=== PATIENT | male | born 1945 | race Caucasian/White ===

== ENCOUNTER 2019-03-15 13:36 | Outpatient (REF) | payer MEDICARE, BC, SELFPAY ==
[2019-03-15 22:20] LABS: Anion Gap 10.8 mmol/L (3-11); BUN 24 mg/dL (7-18); CO2 25.2 mmol/L (21.0-32.0); CREATININE 0.92 mg/dL (0.70-1.30); Calcium 9.6 mg/dL (8.5-10.1); Chloride 105 mmol/L (98-107); Glucose 201 mg/dL (70-100); Potassium 4.3 mmol/L (3.5-5.1); Sodium 141 mmol/L (136-145)
== END 2019-03-15 13:56 ==
LOC: NCHCN 13:36
PROVIDERS: PCP Internal Medicine; Visit Provider Internal Medicine
DX: I10 Essential (primary) hypertension (principal)
CPT/HCPCS: 80048

== ENCOUNTER 2020-10-27 00:48 | Outpatient (CLI) | payer MEDICARE, BC, SELFPAY ==
--- NOTE | 2020-10-27 | DI.RAD_ITS ---
EXAM: XR HIP LT COMPLETE AP PELVIS INDICATION: LT HIP PAIN, M25.552. COMPARISON: CR LEFT HIP COMPLETE from 03/24/2012 CT ABD PELVIS WITH CONTRAST from 08/29/2015 CT ABD PELVIS WITH CONTRAST from 08/29/2015 TECHNIQUE: 2D digital imaging was performed. FINDINGS: There are bilateral hip prostheses. There is some lateral subluxation of the femoral component of t he prosthesis relative to the acetabular component. There are now multiple metallic fragments seen i nferior to the acetabulum and proximal femoral portion of the prosthesis. There is stable lucency seen in the femoral neck region and some surrounding heterotopic calcification. No acute fracture is seen. IMPRESSION: Multiple metallic fragments surrounding the hip prosthesis. DATA REPOSITORY: RADIATION DOSE DELIVERED:
== END 2020-10-27 00:49 ==
LOC: DI 00:49
PROVIDERS: PCP Internal Medicine; Visit Provider Internal Medicine
DX: M25.552 Pain in left hip (principal); Z96.643 Presence of artificial hip joint, bilateral
CPT/HCPCS: 73502

== ENCOUNTER 2020-10-30 16:26 | Outpatient (REF) | payer MEDICARE, BC, SELFPAY ==
[2020-10-30 13:29] LABS: HGB 18.6 g/dL (13.5-17.5); MCH 29.5 pg (27.0-33.0); MCHC 31.7 % (32.0-36.0); Platelet Count 268 10^3/uL (130-400); RBC 6.31 10^6/uL (4.36-5.78); RDW 17.2 % (11.8-14.1); RDW-SD 54.7 fL; WBC 8.65 10^3/uL (4.4-10.8)
[2020-10-30 13:34] LABS: Anion Gap 11.2 mmol/L (3-11); BUN 27 mg/dL (7-18); CO2 25.8 mmol/L (21.0-32.0); CREATININE 1.1 mg/dL (0.70-1.30); Calcium 9.8 mg/dL (8.5-10.1); Chloride 106 mmol/L (98-107); Glucose 219 mg/dL (74-106); Potassium 4.3 mmol/L (3.5-5.1); Sodium 143 mmol/L (136-145); Uric Acid 4.9 mg/dL (3.5-7.2)
[2020-10-30 13:39] LABS: Hemoglobin A1C 7.4 % (<5.7)
[2020-10-30 13:50] LABS: HCT 58.7 % (40.0-50.0)
== END 2020-10-30 16:27 | disposition home or self-care (01) ==
LOC: NCHCN 16:26
PROVIDERS: PCP Internal Medicine; Visit Provider Internal Medicine
DX: E11.9 Type 2 diabetes mellitus without complications (principal); I48.91 Unspecified atrial fibrillation; I25.10 Atherosclerotic heart disease of native coronary artery without angina pectoris; E66.01 Morbid (severe) obesity due to excess calories
CPT/HCPCS: 80048; 85027; 83036; 84550

== ENCOUNTER → 2020-12-14 10:07 | Outpatient (BNVA) | payer MEDICARE, BC, SELFPAY | PROVIDERS: PCP Internal Medicine; Referring Provider Internal Medicine; Visit Provider Student in an Organized Health Care Education/Training Program | DX: Z47.1 Aftercare following joint replacement surgery (principal); Z96.642 Presence of left artificial hip joint | CPT/HCPCS: 99203 ==

== ENCOUNTER → 2021-02-01 10:44 | Outpatient (BNVA) | payer MEDICARE, BC, SELFPAY | PROVIDERS: PCP Internal Medicine; Visit Provider Student in an Organized Health Care Education/Training Program | DX: Z47.1 Aftercare following joint replacement surgery (principal); Z96.642 Presence of left artificial hip joint | CPT/HCPCS: 99213 ==

== ENCOUNTER 2021-05-08 09:24 | Outpatient (CLI) | payer MEDICARE, BC, SELFPAY ==
--- NOTE | 2021-05-08 08:30 | DI.RAD_ITS ---
Exam(s) XR HIP LT COMPLETE AP PELVIS EXAM: XR HIP LT COMPLETE AP PELVIS CLINICAL HISTORY: hip pain. TECHNIQUE: 2D digital imaging was performed. COMPARISON: CR XR HIP LT COMPLETE AP PELVIS from 10/27/2020 DX XR PELVIS (GENERIC) from 10/31/2020 CR XR PELVIS (GENERIC) from 11/01/2020 CR XR HIP 2-3 VIEWS LT W/ PELVIS from 11/14/2020 FINDINGS: BONES: No acute fracture is present. No bony destructive lesion is seen. JOINTS: No dislocation present. The patient has bilateral total hip replacements. Dystrophic calcifi cations have developed around the left hip prosthesis. No acute fracture or dislocation is seen. Th e periprosthetic bone has a similar appearance compared to the x-ray from 11/14/2020. The appearance o f the right total hip replacement is similar compared to the examination from 11/01/2020. SOFT TISSUE: Atherosclerosis. IMPRESSION: Stable bilateral total hip replacements. DATA REPOSITORY: RADIATION DOSE DELIVERED:
== END 2021-05-08 09:25 | disposition home or self-care (01) ==
LOC: DIORS 09:24
PROVIDERS: PCP Internal Medicine; Referring Provider Internal Medicine; Visit Provider Physician Assistant
DX: Z96.642 Presence of left artificial hip joint (principal); M25.552 Pain in left hip; E11.9 Type 2 diabetes mellitus without complications
CPT/HCPCS: 99214; 73502

== ENCOUNTER 2021-06-01 17:03 | Outpatient (REF) | payer MEDICARE, BC, SELFPAY | END 2021-06-01 17:04 | disposition home or self-care (01) | LOC: NCHCN 17:03 | PROVIDERS: PCP Internal Medicine; Visit Provider Family Medicine | DX: I87.312 Chronic venous hypertension (idiopathic) with ulcer of left lower extremity (principal) | CPT/HCPCS: 87077; 87070; 87186; 87205 ==

== ENCOUNTER → 2021-07-02 11:07 | Outpatient (BNVA) | payer MEDICARE, BC, SELFPAY | PROVIDERS: PCP Internal Medicine; Referring Provider Internal Medicine | DX: M70.62 Trochanteric bursitis, left hip (principal); Z96.642 Presence of left artificial hip joint | CPT/HCPCS: 99212 ==

== ENCOUNTER → 2021-07-09 10:50 | Outpatient (BNVA) | payer MEDICARE, BC, SELFPAY | PROVIDERS: PCP Internal Medicine; Referring Provider Physician Assistant; Visit Provider Surgery | DX: I87.2 Venous insufficiency (chronic) (peripheral) (principal); L97.321 Non-pressure chronic ulcer of left ankle limited to breakdown of skin; Z68.43 Body mass index [BMI] 50.0-59.9, adult; E11.69 Type 2 diabetes mellitus with other specified complication; Z79.01 Long term (current) use of anticoagulants; I10 Essential (primary) hypertension; R60.0 Localized edema | CPT/HCPCS: 29580; 99214 ==

== ENCOUNTER → 2021-07-16 14:07 | Outpatient (BNVA) | payer MEDICARE, BC, SELFPAY | PROVIDERS: PCP Internal Medicine; Referring Provider Internal Medicine; Visit Provider Surgery | DX: I87.2 Venous insufficiency (chronic) (peripheral) (principal); L97.301 Non-pressure chronic ulcer of unspecified ankle limited to breakdown of skin; Z91.19 Patient's noncompliance with other medical treatment and regimen | CPT/HCPCS: 99213 ==

== ENCOUNTER → 2021-07-23 08:08 | Outpatient (BNVA) | payer MEDICARE, BC, SELFPAY | PROVIDERS: PCP Internal Medicine; Referring Provider Internal Medicine; Visit Provider Surgery | DX: L97.301 Non-pressure chronic ulcer of unspecified ankle limited to breakdown of skin (principal) | CPT/HCPCS: 29580 ==

== ENCOUNTER → 2021-07-30 07:53 | Outpatient (BNVA) | payer MEDICARE, BC, SELFPAY | PROVIDERS: PCP Internal Medicine; Referring Provider Internal Medicine; Visit Provider Surgery | DX: L97.301 Non-pressure chronic ulcer of unspecified ankle limited to breakdown of skin (principal); I87.2 Venous insufficiency (chronic) (peripheral); Z68.43 Body mass index [BMI] 50.0-59.9, adult; E11.69 Type 2 diabetes mellitus with other specified complication; I10 Essential (primary) hypertension; G47.33 Obstructive sleep apnea (adult) (pediatric); Z91.19 Patient's noncompliance with other medical treatment and regimen | CPT/HCPCS: 99211 ==

== ENCOUNTER → 2021-08-13 08:05 | Outpatient (BNVA) | payer MEDICARE, BC, SELFPAY | PROVIDERS: PCP Internal Medicine; Referring Provider Internal Medicine; Visit Provider Surgery | DX: I87.2 Venous insufficiency (chronic) (peripheral) (principal); L97.301 Non-pressure chronic ulcer of unspecified ankle limited to breakdown of skin; Z68.43 Body mass index [BMI] 50.0-59.9, adult; Z91.19 Patient's noncompliance with other medical treatment and regimen ==

== ENCOUNTER 2021-10-29 11:43 | Outpatient (CLI) | payer MEDICARE, SELFPAY ==
--- NOTE | 2021-10-29 11:15 | DI.RAD_ITS ---
Exam(s) XR HIP LT AP LAT ONLY EXAM: XR HIP LT AP LAT ONLY CLINICAL HISTORY: L revision NAIDA. TECHNIQUE: 2D digital imaging was performed. COMPARISON: CR XR HIP LT COMPLETE AP PELVIS from 05/08/2021 FINDINGS: Again noted is a left hip prosthesis. There is dystrophic calcification again noted. The appearance of the Maddie prosthetic bone at the trochanteric level appears unchanged. No new fractures evident. IMPRESSION: As above. No significant change compared to 05/08/2021 DATA REPOSITORY: RADIATION DOSE DELIVERED:
== END 2021-10-29 11:44 | disposition home or self-care (01) ==
LOC: DIORS 11:44
PROVIDERS: PCP Internal Medicine; Referring Provider Internal Medicine; Visit Provider Student in an Organized Health Care Education/Training Program
DX: Z96.642 Presence of left artificial hip joint (principal); M70.62 Trochanteric bursitis, left hip
CPT/HCPCS: 99213; 73502

== ENCOUNTER 2021-10-29 23:37 | Observation (INO) | payer MEDICARE, SELFPAY ==
--- NOTE | 2021-10-29 23:30 | DI.RAD_ITS ---
Exam(s) XR HIP PELVIS ADULT BL EXAM: XR HIP PELVIS ADULT BL CLINICAL HISTORY: bilateral leg weakness, fall TECHNIQUE: COMPARISON: CR XR HIP LT COMPLETE AP PELVIS from 05/08/2021 FINDINGS: Five views were obtained. There are bilateral hip prostheses in position. The components appear wel l seated. There is moderate heterotopic bone formation, mostly on the left. There is no evidence of acute fracture or dislocation. IMPRESSION: RADIATION DOSE DELIVERED: Total DLP
--- NOTE | 2021-10-29 23:30 | DI.CT_ITS ---
Exam(s) CT LUMBAR SPINE WO EXAM: CT LUMBAR SPINE WO CLINICAL HISTORY: sudden weakness in bilateral lower extremities TECHNIQUE: COMPARISON: No exams were available for comparison FINDINGS: CT examination lumbosacral spine was performed. The SI joints appear intact bilaterally with minimal degenerative change. No sacral fracture. Bilateral hip prostheses noted as seen on plain films tod ay. There is a moderate biconvex thoraco lumbar scoliosis. There are severe hypertrophic degenerative ch anges of the facet joints, particularly at L4-5 and L5-S1, and there appears to be mild central canal spinal stenosis at L4-5. There is no evidence of acute fracture or dislocation. No gross acute disc herniation by CT criteria . IMPRESSION: No evidence of acute fracture. RADIATION DOSE DELIVERED: 1,706.54mGy.cm Total DLP !Error CTDIvol RADIATION OPTIMIZATION: All CT scans at this facility use at least one of these dose optimization te chniques: automated exposure control; mA and/or kV adjustment per patient size (includes targeted exa ms where dose is matched to clinical indication); or iterative reconstruction.
[2021-10-29 23:35] VITALS: BP 119/54; PULSE 95; RESP 22; TEMP 36.4; O2SAT 94
[2021-10-30] VITALS (21 sets, daily range): BP systolic 108–144; BP diastolic 63–85; PULSE 67–91; RESP 11–22; TEMP 36–36.8; O2SAT 94–98
--- NOTE | 2021-10-30 | DI.MRI_ITS ---
Exam(s) MR LUMBAR SPINE WO EXAM: MR LUMBAR SPINE WO CLINICAL HISTORY: severe pain and weakness, r/o abscess. TECHNIQUE: Multiplanar multisequence MRI was performed. COMPARISON: CT ABD PELVIS WITH CONTRAST from 08/29/[address] LUMBAR SPINE WO from 10/30/2021 FINDINGS: MR examination lumbosacral spine was performed according to the usual protocol. Post contrast scanni ng was planned, but the patient was unable to tolerate the examination and the examination was termin ated prior to administration of contrast material. There is a compression fracture of the T11 vertebral body with mild loss of height both anteriorly an d posteriorly. The fracture plane may involve the posterior cortex consistent with a possible burst fracture. There is no gross retropulsion of bone into the spinal canal at this level. Posterior jose ments appear intact. There are very prominent hypertrophic degenerative changes involving the facet joints at L4-5 and L5- S1. There is moderate central canal spinal stenosis at L4-5 resulting from the facet prominence and prominence of the disc osteophyte complex at this level. No other bony central canal spinal stenosis seen. The neural foramina appear fairly well maintained throughout. The conus medullaris is unremarkable in appearance. There is a large right-sided disc herniation at the L1-2 level which markedly deforms the thecal sac at this level. No other disc herniation identified in the region surveyed. IMPRESSION: T11 vertebral compression fracture, this may involve the posterior vertebral cortex raising the possi bility of a burst fracture. Large right-sided L1-2 disc herniation of uncertain age. Please correlate with neurologic examinatio n. Moderate central canal spinal stenosis at L4-5. DATA REPOSITORY:
--- NOTE | 2021-10-30 00:55 | W.ED.GENAD ---
Discharge Plan Disposition Patient Disposition: [facility] INPATIENT Condition: Improving Discharge Details Clinical Impression: Bilateral leg weakness, Lumbago Primary Care Provider: Nick Nettles ED Provider: Adrien Cazares Home Meds and New Rx's Prescriptions: No Action furosemide 40 MG tablet 20 mg PO BID 0RF atorvastatin [Lipitor] 80 MG tablet 80 mg PO DAILY 0RF metoprolol succinate 100 MG tablet extended release 24 hr 100 mg PO DAILY 0RF nitroglycerin 0.4 MG tablet, sublingual 0.4 mg Sublingual PRN PRN (Reason: Chest Pain) 0RF lisinopril 40 MG tablet 20 mg PO DAILY 0RF warfarin [Coumadin] 5 MG tablet 5 mg PO QPM 0RF potassium citrate 10 MEQ tablet extended release 20 meq PO BID 0RF allopurinol 300 MG tablet 300 mg PO DAILY 0RF ciprofloxacin HCl 500 mg tablet 500 mg PO BID 0RF Label Comments: TAKE 1 TABLET BY MOUTH EVERY 12 HOURS clindamycin HCl 300 mg capsule 300 mg PO TID 0RF Label Comments: TAKE 1 CAPSULE BY MOUTH EVERY 8 HOURS FOR 7 DAYS Medical Decision Making 76-year-old male with a past medical history of chronic weakness of the lower extremities, high cholesterol, obesity, chronic venous stasis of the lower extremities, atrial fibrillation on anticoagulant use, coronary artery disease, hypertension, 5 previous hip replacement/surgeries, presents today for evaluation of lower extremity weakness. Patient has a history of chronic lower extremity weakness requiring a walker at all times at home. He has had multiple surgeries on his hips before. Today he was at his kitchen sink when his legs suddenly felt weak and shaky, and they gradually gave out on him. He slowly lowered himself to the ground. He denies any chest pain, palpitations, shortness of breath, headache, syncope or near syncope. He states that his symptoms were fully isolated to his legs alone. EMS was called, and upon their arrival the patient was not able to get up on his own. He did require an assist, and was subsequently not able to walk with the assist secondary to his lower extremity weakness. He states that although his legs are normally quite weak, their current state is a roughly fifth percent diminishment of strength comparatively to normal. He denies any new back pain, groin pain, or leg pain. He denies any trauma. He lives at home alone. He denies any numbness or tingling in his groin. He did lose control of his bladder during the event but did not defecate himself. No other complaints at this time. No other modifying factors. Physical exam demonstrates weakness in the lower extremities primarily at the hips bilaterally. Seems to be good strength for the knees and feet and great toes bilaterally. No evidence of focal neurologic deficits on exam otherwise though. Symptoms appear inconsistent with stroke clinically, and more consistent with chronic deconditioning, but I am uncertain why there is an acute component now. Symptoms do not appear consistent with cauda equina syndrome currently, although he did urinate on himself which is slightly atypical however neurovascular exam seems to otherwise be intact at this time. We will get a CT scan of the lumbar spine to evaluate for any significant pathology. We will get x-rays to evaluate for any change in his orthotic devices. Will monitor closely and reassess. 1:43am CT scan of the lumbar spine demonstrate multilevel degenerative changes, with severe central canal and foraminal stenosis at L4 and L5. Clinically the patient still does not show signs of cauda equina syndrome. We were able to get the patient up, he did require 3 person assist, and was somewhat unsteady on his legs. He still shows no signs of diminished rectal tone, or saddle anesthesia. He states that he feels like his strength is currently improving. That being said patient is 164 kg, he does live at home with his . He sleeps on the second story of the house, and the patient does not feel comfortable going home tonight as he has no additional assistance aside for his more petite spouse. At this time I suspect that his weakness was likely secondary to his stenosis and mild transient radiculopathy. Currently again there is no evidence of cauda equina syndrome requiring emergent surgical management. Due to his inability to meet his ADLs at home in his current state, I do feel that admission, continued reassessment for acute changes, potential MRI in the morning, and setting up a home health and home assistance is indicated at this time. I discussed the case with the hospitalist Dr. Land, he agrees with the assessment and plan. I will place admission orders on his behalf. Additionally we will give 125 of Solu-Medrol here in the ED for radiculopathy. I have extensively reviewed the treatment plan with the patient. I have addressed all patient concerns at this time. I have also discussed the plan with the admitting physician and they agree with the current assessment and plan and have agreed to assume responsibility for the patient. All parties demonstrate verbal understanding and agreement with our assessment and plan at this time. The documentation in this chart was dictated using Scali dictation software. Please excuse any dictation errors. FINDINGS: Vertebrae: No acute fracture. Anterolisthesis of L4 on L5 and loss of lumbar lordosis is presumed degenerative Discs/Spinal canal/Neural foramina: Multilevel severe foraminal stenosis most pronounced at L4- L5. Severe central canal stenosis at L4-L5 Soft tissues: Bilateral nephrolithiasis. Mild fullness to the right renal collecting system and pelvis Bilateral hip arthroplasties Prior cholecystectomy. Nodular adrenal glands with left-sided calcification presumably related to hyperplasia IMPRESSION: Multilevel degenerative changes with severe central canal and foraminal stenosis noted at L4-L5 Bilateral nephrolithiasis. Mild fullness to the right renal collecting system and pelvis. Recently passed stone cannot be completely excluded Thank you for allowing us to participate in the care of your patient. Dictated and Authenticated by: Ashvin Collins MD 10/30/2021 1:24 AM Eastern Time ([place] & [place]) FINDINGS: Bones/joints: Right hip arthroplasty grossly intact. Prominent lucency surrounding the proximal femoral component in the greater trochanter new inter trochanteric region. Left hip arthroplasty is grossly intact with mild grossly stable lucency in the proximal femur No acute fracture. Soft tissues: Unremarkable. IMPRESSION: No acute fracture. Hip arthroplasties are grossly intact. Lucencies surrounding the proximal femoral components are grossly stable in appearance Thank you for allowing us to participate in the care of your patient. Dictated and Authenticated by: Ashvin Collins MD 10/30/2021 1:33 AM Eastern Time ([place] & [place]) HPI General Date/Time Provider Initiated Documentation: 10/29/21 23:44. HPI Narrative: 76-year-old male with a past medical history of chronic weakness of the lower extremities, high cholesterol, obesity, chronic venous stasis of the lower extremities, atrial fibrillation on anticoagulant use, coronary artery disease, hypertension, 5 previous hip replacement/surgeries, presents today for evaluation of lower extremity weakness. Patient has a history of chronic lower extremity weakness requiring a walker at all times at home. He has had multiple surgeries on his hips before. Today he was at his kitchen sink when his legs suddenly felt weak and shaky, and they gradually gave out on him. He slowly lowered himself to the ground. He denies any chest pain, palpitations, shortness of breath, headache, syncope or near syncope. He states that his symptoms were fully isolated to his legs alone. EMS was called, and upon their arrival the patient was not able to get up on his own. He did require an assist, and was subsequently not able to walk with the assist secondary to his lower extremity weakness. He states that although his legs are normally quite weak, their current state is a roughly fifth percent diminishment of strength comparatively to normal. He denies any new back pain, groin pain, or leg pain. He denies any trauma. He lives at home alone. He denies any numbness or tingling in his groin. He did lose control of his bladder during the event but did not defecate himself. No other complaints at this time. No other modifying factors. Related Data Home Medications Medication Instructions Recorded Confirmed atorvastatin 80 mg tablet (Lipitor) 80 mg PO DAILY 09/07/14 10/30/21 furosemide 40 mg tablet 20 mg PO BID 09/07/14 10/30/21 lisinopril 40 mg tablet 20 mg PO DAILY 09/07/14 10/30/21 metoprolol succinate 100 mg 100 mg PO DAILY 09/07/14 10/30/21 tablet,extended release 24 hr nitroglycerin 0.4 mg sublingual 0.4 mg SUBLINGUAL PRN PRN 09/07/14 10/30/21 tablet warfarin 5 mg tablet (Coumadin) 5 mg PO QPM 08/29/15 08/13/21 allopurinol 300 mg tablet 300 mg PO DAILY 12/30/16 10/30/21 potassium citrate 10 mEq (1,080 20 meq PO BID 12/30/16 10/30/21 mg) tablet,extended release ciprofloxacin HCl 500 mg tablet 500 mg PO BID 10/30/21 10/30/21 clindamycin HCl 300 mg capsule 300 mg PO TID 10/30/21 10/30/21 Allergies Allergy/AdvReac Type Severity Reaction Status Date / Time No Known Drug Allergies Allergy Unverified 10/30/21 00:09 metformin AdvReac DIARRHEA Verified 10/30/21 00:09 General Stated Complaint: GenMedical NADINE: 2 Review of Systems All systems reviewed & are unremarkable except as noted in HPI and below PFSH All Active Problems Bilateral leg weakness (Acute) Lumbago (Acute) Non compliance with medical treatment (Acute) Venous stasis ulcer of ankle limited to breakdown of skin without varicose veins (Acute) Trochanteric bursitis, left hip (Acute) H/O surgical procedure (Chronic) a. Bilateral hip replacement b. Nephrolithotomy c. Right ureteral stent placement d. Coronary artery stent placement 2006 e. Adult circumcision f. Colonoscopy 11/2013 History of revision of total replacement of left hip joint (Acute 11/01/20) Acetabular revision with head/liner exchange for fractured femoral head prosthesis. Pure hypercholesterolemia, unspecified (Acute) Cerumen impaction (Acute) Body mass index (BMI) 50.0-59.9, adult (Acute) Type 2 diabetes mellitus without complications (Acute) Neoplasm of unspecified behavior of bone, soft tissue, and skin (Acute) Nasal dryness (Acute) Acute cholecystitis (Acute 09/07/14) Morbid obesity (Chronic) CAD (coronary artery disease) (Chronic) a. coronary artery stent placement 2006 Atrial fibrillation (Chronic) A. On Coumadin Anticoagulant long-term use (Chronic) Personal history of pulmonary embolism (Chronic) Hypertension (Chronic) TOM (obstructive sleep apnea) (Chronic) Personal history of kidney stones (Chronic) a. uric acid stones Venous stasis ulcer (Chronic) Venous (peripheral) insufficiency (Chronic) H/O bilateral hip replacements (Chronic) Social History Smoking/Tobacco Use Status: Former Tobacco Use Smoking risk assessment performed?: Yes Drug use: Never Substance use type: does not use Do you feel safe at home: Yes Do you feel safe in your relationship?: Yes Exam Narrative Exam Narrative: 1.Const: Well-nourished, Well-developed, appearing stated age 2.Eyes: PERRL, no conjunctival injection, and symmetrical lids. 3.ENT: Atraumatic external nose and ears. Moist MM. Neck: Symmetric, trachea midline, No thyromegaly. 4.CVS: +S1/S2, No murmurs or gallops. Peripheral pulses 2+ and equal in all extremities. Brisk capillary refill in all extremities. 5.RESP: Unlabored respiratory effort. Clear to auscultation bilaterally. No wheezes rales or rhonchi 6.GI: Soft, Nontender/Nondistended, No hepatosplenomegaly. No guarding or rebound. 7.MSK: Normocephalic/Atraumatic, Extremities w/o deformity or ttp No cyanosis or clubbing, patient demonstrates in place wrappings on his lower extremities. Patient demonstrates no evidence of saddle anesthesia, he has good sensation in his groin, and lateral component of his lower extremities. Appropriate sensation throughout the upper and lower extremities in general. He does have a history of peripheral neuropathy, but denies any change from baseline. Patient demonstrates good dorsiflexion of the great toe bilaterally, good plantar and dorsiflexion of the feet bilaterally. Patient is able to lift and bend his hip and knees bilaterally, but he is only able to lift his legs roughly 3 inches off the bed for a brief moment. Patient demonstrates intact rectal tone and good perirectal sensation. No weakness of the upper extremities. 8.Skin: Warm, Dry. No rashes or lesions. 9.Neuro: curatorial specialist II-XII grossly intact. Sensation grossly intact, no focal neurologic deficits. 10.Psych: (AAO) x3. Appropriate mood and affect Course Vital Signs Vital signs: Vital Signs Temperature 36.4 C L 10/29/21 23:35 Pulse 95 H 10/29/21 23:35 Respiratory Rate 22 10/29/21 23:35 Blood Pressure 119/54 L 10/29/21 23:35 Pulse Oximetry 94 10/29/21 23:35 Temperature 36.4 C L 10/29/21 23:35 Temperature Source Skin 10/29/21 23:35 Pulse 95 H 10/29/21 23:35 Respiratory Rate 22 10/29/21 23:35 Blood Pressure 119/54 L 10/29/21 23:35 Blood Pressure Position Supine 10/29/21 23:35 Pulse Oximetry 94 10/29/21 23:35 Oxygen Delivery Method Room Air 10/29/21 23:35 Oxygen Flow Rate 0 10/29/21 23:35 Pain Level 0 10/29/21 23:35
[2021-10-30 01:11] LABS: Source Nasal/Nares
--- NOTE | 2021-10-30 01:24 | DI.VRAD_ITS ---
PROCEDURE INFORMATION: Exam: CT Lumbar Spine Without Contrast Exam date and time: 10/29/2021 11:46 PM Age: 76 years old Clinical indication: Low back pain; Patient HX: Sudden weakness in lower extremities TECHNIQUE: Imaging protocol: Computed tomography images of the lumbar spine without contrast. Radiation optimization: All CT scans at this facility use at least one of these dose optimization techniques: automated exposure control; mA and/or kV adjustment per patient size (includes targeted exams where dose is matched to clinical indication); or iterative reconstruction. COMPARISON: CT ABD PELVIS WITH CONTRAST 08/29/2015 8:15 PM FINDINGS: Vertebrae: No acute fracture. Anterolisthesis of L4 on L5 and loss of lumbar lordosis is presumed degenerative Discs/Spinal canal/Neural foramina: Multilevel severe foraminal stenosis most pronounced at L4-L5. Severe central canal stenosis at L4-L5 Soft tissues: Bilateral nephrolithiasis. Mild fullness to the right renal collecting system and pelvis Bilateral hip arthroplasties Prior cholecystectomy. Nodular adrenal glands with left-sided calcification presumably related to hyperplasia IMPRESSION: Multilevel degenerative changes with severe central canal and foraminal stenosis noted at L4-L5 Bilateral nephrolithiasis. Mild fullness to the right renal collecting system and pelvis. Recently passed stone cannot be completely excluded Dictated and Authenticated by: Ashvin Collins MD. Ordering:NINO Jurado MD
[2021-10-30] MEDS: FAMOTIDINE 20 MG in Normal Saline 100 ML 400 MG IVPB (01:28)
--- NOTE | 2021-10-30 01:34 | DI.VRAD_ITS ---
PROCEDURE INFORMATION: Exam: XR Right Hip Exam date and time: 10/29/2021 11:46 PM Age: 76 years old Clinical indication: Other: Weakness; Prior surgery; Surgery date: 6+ months; Surgery type: Hip replacements, multiple TECHNIQUE: Imaging protocol: XR Right hip. Views: 2 or 3 views hip with pelvis when performed. COMPARISON: SD XR PELVIS (GENERIC) 11/01/2020 6:03 PM FINDINGS: Bones/joints: Right hip arthroplasty grossly intact. Prominent lucency surrounding the proximal femoral component in the greater trochanter new inter trochanteric region. Left hip arthroplasty is grossly intact with mild grossly stable lucency in the proximal femur No acute fracture. Soft tissues: Unremarkable. IMPRESSION: No acute fracture. Hip arthroplasties are grossly intact. Lucencies surrounding the proximal femoral components are grossly stable in appearance Dictated and Authenticated by: Ashvin Collins MD. Ordering:NINO Jurado MD
[2021-10-30 01:49] LABS: COVID-19 PCR Negative (Negative)
[2021-10-30 01:52] LABS: Abs Immature Grans 0.06 10^3/uL (0.0-0.06); Absolute Basophil Count 0.07 10^3/uL (0.0-0.2); Absolute Lymphocyte Count 1.33 10^3/uL (1.2-3.4); Absolute Monocyte Count 0.91 10^3/uL (0.1-0.8); Absolute Neutrophil Count 9.02 10^3/uL (1.2-6.7); Basophils % 0.6; HCT 55.9 % (40.0-50.0); HGB 17.6 g/dL (13.5-17.5); Immature Grans % 0.5; Lymphocytes % 11.6; MCH 29.5 pg (27.0-33.0); MCHC 31.5 % (32.0-36.0); MCV 93.8 fL (80-95); MPV 9.6 fL (8.0-11.0); Monocytes % 7.9; Neutrophils % 78.4; Nucleated RBC 0 %; Platelet Count 285 10^3/uL (130-400); RBC 5.96 10^6/uL (4.36-5.78); RDW 16.6 % (11.8-14.1); RDW-SD 55.9 fL
[2021-10-30 01:53] LABS: Bilirubin Negative (Negative); Blood Negative (Negative); Clarity Clear (Clear); Glucose 500 mg/dL (Negative); Ketones Negative (Negative); Leukocyte Esterase Negative (Negative); Nitrite Negative (Negative); Specific Gravity 1.015 (1.005-1.025); Urobilinogen 0.2 EU/dL (Up TO 0.2); pH 5.5 (5-8)
[2021-10-30 01:57] LABS: Absolute Eosinophil Count 0.12 10^3/uL (0.0-0.7)
[2021-10-30 02:00] LABS: Anion Gap 2.5 mmol/L (3-11); BUN 43 mg/dL (7-18); CO2 25.5 mmol/L (21.0-32.0); CREATININE 1.3 mg/dL (0.70-1.30); Calcium 9.6 mg/dL (8.5-10.1); Chloride 98 mmol/L (98-107); Estimated GFR 53.96 (mL/min/1.73m2); Glucose 157 mg/dL (74-106); Potassium 3.2 mmol/L (3.5-5.1); Sodium 126 mmol/L (136-145)
[2021-10-30 02:08] LABS: INR 2.9 (0.9-1.1); PTT Activated 35.7 sec (21.0-27.5); Prothrombin Time 28.2 sec (9.3-11.0)
[2021-10-30] MEDS: methylPREDNISolone SUCC 125 MG VIAL IVP (02:34)
[2021-10-30 02:54] LABS: Anion Gap 12.4 mmol/L (3-11); BUN 42 mg/dL (7-18); CO2 23.6 mmol/L (21.0-32.0); CREATININE 1.2 mg/dL (0.70-1.30); Calcium 9.3 mg/dL (8.5-10.1); Chloride 104 mmol/L (98-107); Estimated GFR 59.18 (mL/min/1.73m2); Glucose 146 mg/dL (74-106); Potassium 3.5 mmol/L (3.5-5.1); Sodium 140 mmol/L (136-145)
[2021-10-30 07:33] LABS: ESR 32 mm/hr (0-20)
[2021-10-30 07:53] LABS: Creatine Kinase 61 U/L (39-308); TSH (W/Ref FT4) 0.91 uIU/mL (0.36-3.74)
--- NOTE | 2021-10-30 08:33 | W.PM.HP.N ---
Assessment and Plan Assessment and plan (1) Bilateral leg weakness: Status: Acute Assessment and plan: Etiology of this is unclear. An MRI alpha lumbar and thoracic spine has been ordered. A bladder scan is also been ordered as I am concerned about his urinary incontinence. He is asking about going home and told him that it would depend on when he was safe and is able to ambulate safely. It is possible he may need a rehab stay depending on the etiology of his leg weakness. (2) Venous stasis ulcer of ankle limited to breakdown of skin without varicose veins: Status: Acute Assessment and plan: His antibiotics will be continued for this. (3) Atrial fibrillation: Status: Chronic Assessment and plan: This is stable at present time (4) Anticoagulant long-term use: Status: Chronic Assessment and plan: His warfarin is being held at this time. Can be resumed if his studies do not show a hematoma or if he does not require any intervention. History of Present Illness History of Present Illness Chief Complaint: leg weakness Narrative: This 76-year-old male came to the hospital early this morning because of weakness of his legs. He has had chronic problems with back pain as well as requiring 5 operations on his hips including hip replacements. He was getting ready for bed last night and did not feel well and while he was getting ready to brush his teeth his legs felt like jelly and he collapsed to the floor. He went to the floor gently and did not hurt himself. He says that he fell last February or March but did not injure himself again. He says he fell because of railing collapsed at a friend's house. He did not hurt himself at that time. He says he usually uses a walker at home because that helps him be more stable. He has a chronic problem with obesity but says he has been able to lose about 80 pounds. He thinks his current weight is about 342 pounds. He was using a cane but is using a walker almost all the time at this time. It took 3 people to get him up to be on his feet last night in the emergency department. He says he has had diabetes for about 2 years. He has had no increased back pain. He does say that his feet feel a little bit numb which she thinks is from diabetes. He lives at home with his Leah and has 2 sons, 1 in [place] and one in [place]. He has no grandchildren. He says he does have about 15 stairs at home to go up to his bedroom. He has had some chronic urinary and stool incontinence but is not severe by his reporting. 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 He has been immunized for Covid. He was recently started about 4 days ago on clindamycin and ciprofloxacin for infection of his chronic stasis ulcer of his leg on the left. Review of Systems Constitutional Constitutional: Denies chills, Denies fatigue, Denies fever(s), Denies headache(s), Denies poor appetite, Denies snoring and Reports weakness ENT Ears, Nose, Mouth, and Throat: Denies headache(s) Cardiovascular Cardiovascular: Denies chest pain with activity, Reports irregular heart rhythm, Denies lightheadedness, Denies radiating jaw, neck or arm pain, Denies palpitations and Denies dyspnea Respiratory Respiratory: Denies cough, Denies dyspnea, Denies snoring and Denies stridor Gastrointestinal Gastrointestinal: Denies abdominal pain, Denies constipation, Denies heartburn, Reports fecal incontinence, Denies nausea and Denies vomiting Genitourinary Genitourinary: Denies oliguria, Reports difficulty urinating, Denies dysuria, Denies urinary frequency and Reports urinary incontinence Musculoskeletal Musculoskeletal: Reports abnormal gait Neurologic Neurologic: Denies abnormal speech, Reports abnormal gait, Denies headache(s), Denies lack of coordination, Reports sensory deficit and Reports weakness Endocrine Endocrine: Denies fatigue and Denies palpitations PFSH All Active Problems Bilateral leg weakness (Acute) Lumbago (Acute) Non compliance with medical treatment (Acute) Venous stasis ulcer of ankle limited to breakdown of skin without varicose veins (Acute) Trochanteric bursitis, left hip (Acute) H/O surgical procedure (Chronic) a. Bilateral hip replacement b. Nephrolithotomy c. Right ureteral stent placement d. Coronary artery stent placement 2006 e. Adult circumcision f. Colonoscopy 11/2013 History of revision of total replacement of left hip joint (Acute 11/01/20) Acetabular revision with head/liner exchange for fractured femoral head prosthesis. Pure hypercholesterolemia, unspecified (Acute) Cerumen impaction (Acute) Body mass index (BMI) 50.0-59.9, adult (Acute) Type 2 diabetes mellitus without complications (Acute) Neoplasm of unspecified behavior of bone, soft tissue, and skin (Acute) Nasal dryness (Acute) Acute cholecystitis (Acute 09/07/14) Morbid obesity (Chronic) CAD (coronary artery disease) (Chronic) a. coronary artery stent placement 2006 Atrial fibrillation (Chronic) A. On Coumadin Anticoagulant long-term use (Chronic) Personal history of pulmonary embolism (Chronic) Hypertension (Chronic) TOM (obstructive sleep apnea) (Chronic) Personal history of kidney stones (Chronic) a. uric acid stones Venous stasis ulcer (Chronic) Venous (peripheral) insufficiency (Chronic) H/O bilateral hip replacements (Chronic) Social History Smoking/Tobacco Use Status: Former Tobacco Use Smoking risk assessment performed?: Yes Drug use: Never Substance use type: does not use Do you feel safe at home: Yes Do you feel safe in your relationship?: Yes Meds Allergies and Home Medications Allergies Allergy/AdvReac Type Severity Reaction Status Date / Time No Known Drug Allergies Allergy Unverified 10/30/21 00:09 metformin AdvReac DIARRHEA Verified 10/30/21 00:09 Home Medications Medication Instructions Recorded Confirmed Type atorvastatin 80 mg tablet (Lipitor) 80 mg PO DAILY 09/07/14 10/30/21 History furosemide 40 mg tablet 20 mg PO BID 09/07/14 10/30/21 History lisinopril 40 mg tablet 20 mg PO DAILY 09/07/14 10/30/21 History metoprolol succinate 100 mg 100 mg PO DAILY 09/07/14 10/30/21 History tablet,extended release 24 hr nitroglycerin 0.4 mg sublingual 0.4 mg SUBLINGUAL PRN PRN 09/07/14 10/30/21 History tablet warfarin 5 mg tablet (Coumadin) 5 mg PO QMWF 08/29/15 10/30/21 History allopurinol 300 mg tablet 300 mg PO DAILY 12/30/16 10/30/21 History potassium citrate 10 mEq (1,080 20 meq PO BID 12/30/16 10/30/21 History mg) tablet,extended release ciprofloxacin HCl 500 mg tablet 500 mg PO BID 10/30/21 10/30/21 History clindamycin HCl 300 mg capsule 300 mg PO TID 10/30/21 10/30/21 History warfarin 4 mg tablet 4 mg PO [id number] 10/30/21 10/30/21 History Exam Const General: cooperative, no acute distress, not diaphoretic and not disheveled Nutritional Appearance: obese Neck Neck: normal visual inspection and no lymphadenopathy Thyroid: thyroid normal Resp Auscultation: clear to auscultation bilaterally, no rales, no rhonchi and no wheezes Cardio Rate: regular rate Rhythm: abnormal rhythm Heart Sounds: S1 normal, S2 normal, no gallops and no murmurs GI Inspection: normal to inspection Palpation: soft, no hepatosplenomegaly, not firm and nontender Neuro Cognition: normal cognition Speech: speech normal Other: He has bilateral leg weakness. He has difficulty elevating his legs off the table. I can resist flexion and extension of his thighs easily. He has normal plantar dorsiflexion of his feet bilaterally. It is difficult for him to do [id number] because he has trouble lifting his knees off the table. Reflexes are hyporeflexic at quadriceps and Achilles. He does have intact light touch sensation over both lower extremities. Both lower extremities are warm. Extrem Other: He has a bandage over the left lower extremity and I did not examine his wound today. Results Labs Result diagrams: 10/30/21 00:30 10/30/21 02:43 Labs: Laboratory Results - last 24 hr 10/30/21 10/30/21 10/30/21 00:30 00:30 00:30 WBC 11.50 H RBC 5.96 H Hgb 17.6 H Hct 55.9 H MCV 93.8 MCH 29.5 MCHC 31.5 L RDW 16.6 H Plt Count 285 MPV 9.6 Immature Gran % 0.5 Neutrophils % 78.4 Lymphocytes % 11.6 Monocytes % 7.9 Eosinophils % 1.0 Basophils % 0.6 Nucleated RBC % 0 Absolute Neutrophils 9.02 H Absolute Lymphocytes 1.33 Absolute Monocytes 0.91 H Absolute Eosinophils 0.12 Absolute Basophils 0.07 ESR PT 28.2 H INR 2.9 H APTT 35.7 H Sodium 126 L Potassium 3.2 L Chloride 98 Carbon Dioxide 25.5 Anion Gap 2.5 L BUN 43 H Creatinine 1.3 Estimated GFR/1.73 m2 53.96 Glucose 157 H Calcium 9.6 Creatine Kinase TSH Urine Color Urine Clarity Urine pH Ur Specific [place] Urine Protein Urine Ketones Urine Blood Urine Nitrite Urine Bilirubin Urine Urobilinogen Ur Leukocyte Esterase Urine Glucose COVID-19 Source SARS-CoV-2 (PCR) 10/30/21 10/30/21 10/30/21 01:08 01:20 02:43 WBC RBC Hgb Hct MCV MCH MCHC RDW Plt Count MPV Immature Gran % Neutrophils % Lymphocytes % Monocytes % Eosinophils % Basophils % Nucleated RBC % Absolute Neutrophils Absolute Lymphocytes Absolute Monocytes Absolute Eosinophils Absolute Basophils ESR PT INR APTT Sodium 140 D Potassium 3.5 Chloride 104 Carbon Dioxide 23.6 Anion Gap 12.4 H BUN 42 H Creatinine 1.2 Estimated GFR/1.73 m2 59.18 Glucose 146 H Calcium 9.3 Creatine Kinase TSH Urine Color Yellow Urine Clarity Clear Urine pH 5.5 Ur Specific [place] 1.015 Urine Protein Negative Urine Ketones Negative Urine Blood Negative Urine Nitrite Negative Urine Bilirubin Negative Urine Urobilinogen 0.2 Ur Leukocyte Esterase Negative Urine Glucose 500 H COVID-19 Source Nasal/Nares SARS-CoV-2 (PCR) Negative 10/30/21 10/30/21 07:25 07:25 WBC RBC Hgb Hct MCV MCH MCHC RDW Plt Count MPV Immature Gran % Neutrophils % Lymphocytes % Monocytes % Eosinophils % Basophils % Nucleated RBC % Absolute Neutrophils Absolute Lymphocytes Absolute Monocytes Absolute Eosinophils Absolute Basophils ESR 32 H PT INR APTT Sodium Potassium Chloride Carbon Dioxide Anion Gap BUN Creatinine Estimated GFR/1.73 m2 Glucose Calcium Creatine Kinase 61 TSH 0.91 Urine Color Urine Clarity Urine pH Ur Specific [place] Urine Protein Urine Ketones Urine Blood Urine Nitrite Urine Bilirubin Urine Urobilinogen Ur Leukocyte Esterase Urine Glucose COVID-19 Source SARS-CoV-2 (PCR) Last Vital Signs Temp 36.0 C L 10/30/21 07:35 Pulse 86 10/30/21 07:35 Resp 20 10/30/21 07:35 BP 126/80 10/30/21 07:35 Pulse Ox 96 10/30/21 07:35
[2021-10-30] MEDS: Atorvastatin 40 MG TAB 80 MG PO (08:50)
[2021-10-30] MEDS: Allopurinol 300 MG TAB PO (08:50)
[2021-10-30] MEDS: Metoprolol CR 100 MG TABCR PO (08:50)
[2021-10-30] MEDS: Lisinopril 20 MG TAB PO (08:51)
[2021-10-30] MEDS: Ciprofloxacin 500 MG TAB PO ×2 (08:51→20:45)
[2021-10-30] MEDS: Potassium Chloride 20 MEQ TABCR PO ×2 (08:51→20:45)
[2021-10-30] MEDS: Clindamycin 300 MG CAP PO ×3 (08:51→20:45)
[2021-10-30] MEDS: Furosemide 20 MG TAB PO ×2 (08:51→20:45)
[2021-10-30] MEDS: Nystatin POWDER 60 GM JAR TP ×2 (11:35→20:44)
[2021-10-30] MEDS: diazePAM 5 MG TAB PO (13:14)
--- NOTE | 2021-10-30 13:39 | W.NUTRFU ---
Date of service: 10/30/21 Time of Service: 13:39 Nutrition Note NOTE: Pt unavailable at time of visit. Acknowledge nutrition consult for weight management education. Will follow up when available. Time Spent in Nutritional Counseling and Treatment: 0
--- NOTE | 2021-10-30 13:56 | INITIAL_ITS ---
- If Service Date Differs Date of service: 10/30/21 Time of Service: 13:56 Care Management Initial Assess REASON FOR HOSPITALIZATION:: Bilateral hip weakness. PAST MEDICAL HISTORY/PAST SURGICAL HISTORY:: Active/Past Medical/Past Surgical Problems: Bilateral leg weakness (Acute), Lumbago (Acute), Non compliance with medical treatment (Acute), Venous stasis ulcer of ankle limited to breakdown of skin without varicose veins (Acute), Trochanteric bursitis, left hip (Acute), H/O surgical procedure (Chronic) - a. Bilateral hip replacement, b. Nephrolithotomy, c. Right ureteral stent placement, d. Coronary artery stent placement 2006, e. Adult circumcision, f. Colonoscopy 11/2013, History of revision of total replacement of left hip joint (Acute 11/01/20) - Acetabular revision with head/liner exchange for fractured femoral head prosthesis., Pure h ypercholesterolemia, unspecified (Acute), Cerumen impaction (Acute),. Body mass index (BMI) 50.0-59.9, adult (Acute), Type 2 diabetes mellitus without complications (Acute), Neoplasm of unspecified behavior of bone, soft tissue, and skin (Acute), Nasal dryness (Acute), Acute cholecystitis (Acute 09/07/14), Morbid obesity (Chronic), CAD (coronary artery disease) (Chronic) - a. coronary artery stent placement 2006, Atrial fibrillation (Chronic) - A. On Coumadin, Anticoagulant long-term use (Chronic),. Personal history of pulmonary embolism (Chronic), Hypertension (Chronic),. TOM (obstructive sleep apnea) (Chronic), Personal history of kidney stones (Chronic) - a. uric acid stones, Venous stasis ulcer (Chronic), Venous (peripheral) insufficiency (Chronic), and H/O bilateral hip replacements (Chronic). PREVIOUS FUNCTIONAL STATUS/SOCIAL/FAMILY SUPPORTS:: Jimbo lives in [facility] with his , Leah. 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 His reports that Jimbo has lots of friends and he occupies his days talking with his friends on the phone, reading, cooking, and playing games on the computer. Jimbo drives and is independent with his ADLs at baseline. CURRENT FUNCTIONAL STATUS:: Jimob is in radiology for an MRI when CM comes to see him. His , Leah, and friend, Delroy, are present in the room. A short while later, Jimbo returns to his room and reports he was only able to tolerate approximately 35 minutes of the 2 hour MRI. He jokes that the music was awful and was drowned out by the clanking noise of the tube. ADVANCE DIRECTIVES:: None on file. Has patient been provided with info about the portal/API?: Yes Did the patient sign up for the portal?: Yes (Previously enrolled) CODE STATUS:: Full Code INSURANCE COVERAGE / FINANCIAL ISSUES:: [employer]. CURRENT HOME/COMMUNITY SERVICES/EQUIPMENT:: No home/community services. Jimbo has a FWW, cane, toilet seat riser, and Bipap machine. PRIMARY CARE PHYSICIAN:: Nick Nettles MD ([facility]). POTENTIAL DISCHARGE NEEDS:: Follow up appointment with PCP and outpatient physical therapy. PATIENT/FAMILY EDUCATION NEEDS:: Review of discharge instructions including limitations, medications, and follow up plan of care; discuss Ask Me Three and self management. ANTICIPATED BARRIERS TO DISCHARGE:: No anticipated barriers at this time. TRANSPORTATION:: Via private vehicle with his , Leah. PLAN:: Jimbo will likely be discharged home when medically cleared by provider. PT will assess his need for physical therapy. He will follow up with his PCP and discharge plan of care as directed. He will be transported home via private vehicle by his when ready. CM will continue to follow.
--- NOTE | 2021-10-30 15:58 | PT.INIE ---
Date of service: 10/30/21 Time of Service: 15:28 PT Notes Visit Reasons: Bilateral Hip Weakness Physical Therapy Inpatient Initial Evaluation Date: 10/30/2021 Referring Doctor: Suma Martin NP PT Orders: PT CONSULT: Fall safety assessment. Eval for assistive device. Limited ability. Extended stay weakness. Precautions: Fall. Standard. Activity as tolerated. Patient Profile/Admitting Diagnosis: Jimbo is a 76-year-old male on chronic anticoagulation who presented to the ED on 10/30/2021 due to bilateral low lower extremity weakness which resulted to his legs giving out and slowly lowering himself onto the floor today. Patient is diagnosed with atrial fibrillation, bilateral lower extremity weakness, and venous stasis ulcers. PMHX: All Active Problems? Bilateral leg weakness (Acute) Lumbago (Acute) Non compliance with medical treatment (Acute) Venous stasis ulcer of ankle limited to breakdown of skin without varicose veins (Acute) Trochanteric bursitis, left hip (Acute) H/O surgical procedure (Chronic) a.? Bilateral hip replacement b.? Nephrolithotomy c.? Right ureteral stent placement d.? Coronary artery stent placement 2006 e.? Adult circumcision f.? Colonoscopy 11/2013History of revision of total replacement of left hip joint (Acute 11/01/20) Acetabular revision with head/liner exchange for fractured femoral head prosthesis.Pure hypercholesterolemia, unspecified (Acute) Cerumen impaction (Acute) Body mass index (BMI) 50.0-59.9, adult (Acute) Type 2 diabetes mellitus without complications (Acute) Neoplasm of unspecified behavior of bone, soft tissue, and skin (Acute) Nasal dryness (Acute) Acute cholecystitis (Acute 09/07/14) Morbid obesity (Chronic) CAD (coronary artery disease) (Chronic) a.? coronary artery stent placement 2007Atrial fibrillation (Chronic) A.? On CoumadinAnticoagulant long-term use (Chronic) Personal history of pulmonary embolism (Chronic) Hypertension (Chronic) TOM (obstructive sleep apnea) (Chronic) Personal history of kidney stones (Chronic) a.? uric acid stonesVenous stasis ulcer (Chronic) Venous (peripheral) insufficiency (Chronic) H/O bilateral hip replacements (Chronic) Social History/Home Situation: Lives with in a private home with 4 steps to enter with a rail on 1 side. His bedroom is on the second floor of the house with 15 steps to enter with rails on both sides. Equipment Owned/DME: 1 bariatric front wheeled walker and 1 regular front wheel walker Subjective: Agreeable to PT consult. Reports 2/10 pain in the low back area at rest and 7/10 pain in the same area with ambulation. States that he has some numbness and bilateral lower extremities but not as much as in the fourth and the fifth fingers on both sides. Objective: General Observation: High BMI. IV access in right UE. Mental Status: Alert and oriented as to person, place, time, and purpose. Able to pay attention, focus, and respond appropriately. Pain: 2/10 in low back: 7/10 pain in the same area with ambulation ROM: Right Upper Extremity: Shoulder Flexion WFL. Shoulder abduction WFL. Elbow flexion WFL. Wrist flexion WFL. Functional opening and closing of hand WFL. Left Upper Extremity: Shoulder Flexion WFL. Shoulder abduction WFL. Elbow flexion WFL. Wrist flexion WFL. Functional opening and closing of hand WFL. Right Lower Extremity: Hip flexion unable to flex beyond 90 degrees in sitting position due to abdominal panniculus. Hip abduction WFL. Knee flexion WFL. Ankle dorsiflexion to neutral only. Ankle plantarflexion WFL. Left Lower Extremity: Hip flexion unable to flex beyond 90 degrees in sitting position due to abdominal panniculus. Hip abduction WFL. Knee flexion WFL. Ankle dorsiflexion to neutral only. Ankle plantarflexion WFL. Strength: Right Upper Extremity: Shoulder flexors 4/5. Shoulder abductors 4/5. Elbow flexors 4/5. Elbow extensors 4/5. Adult Remedial Education Instructor strong. Left Upper Extremity: Shoulder flexors 4/5. Shoulder abductors 4/5. Elbow flexors 4/5. Elbow extensors 4/5. Adult Remedial Education Instructor strong. Right Lower Extremity: Hip flexors 3-/5. Hip abductors 4-/5. Knee flexors 4-/5. Knee extensors 4-/5. Ankle dorsiflexors 3-/5. Ankle plantarflexors 4-/5. Left Lower Extremity: Hip flexors 3-/5. Hip abductors 4-/5. Knee flexors 4-/5. Knee extensors 4-/5. Ankle dorsiflexors 3-/5. Ankle plantarflexors 4-/5. Bed Mobility/Transfers: Sit to stand with standby assist using FWW Stand to sit with standby assist using FWW Bed to reclining chair with standby assist using FWW Gait: Instructed patient with level surface ambulation of 80feet requiring standbyassist. Juany . Step height decreased. Step length decreased. Balance: Static Sitting: Normal Dynamic Sitting: Normal Static Standing: Fair Dynamic Standing: Fair Special Tests: Mobility Limitations Standardized Measure [facility] AM-PAC 6 clicks Basic Mobility Inpatient Short Form: Raw Score: 23 CMS Score: 11% deficit Informed Consent/Education: Patient was instructed in purpose of PT consult and plan of care. Agreeable to proceed with established PT POC to achieve personal goals. Assessment: Sound requires the use of a front wheel walker for all mobility ADL performance order to maximize independence and reduce fall risk. Reports up to 7/10 pain in the low back with ambulation activity. Patient presents with clinical signs and symptoms consistent with current/admitting diagnoses that have resulted to mobility limitations, gait instability, generalized weakness, and overall ADL decline as demonstrated by the following impairment level findings: 1. Decreased strength to BLEmajor muscle groups 2. Impaired standing balance 3. Impaired activity tolerance 4. Chronic swelling on BLE Impairments are contributing to the following functional limitations: 1. Difficulty with ambulation without assistive device 2. Increased completion time for mobility ADL performance 3. Increased risk for falls 4. Difficulty with managing steps alone safely Patient is assessed as a [id number] moderatecomplexity based on the following: History: 76-year-old malewith past medical history as indicated above Examination: Demonstrable impairment in strength, balance, and mobility level with underlying impairments and functional limitations as exhibited above as well as deficit score of 11% utilizing the [facility] Mobility Inpatient Short Form Presentation: Stable Decision Makin moderatecomplexity Goals: Goals X1 week 1. Supine-Sit independent 2. Sit-Supine independent 3. Sit-Stand independent 4. Stand-Sit independent with FWW 5. Bed-Chair independent with FWW 6. Chair-Bed independent with FWW 7. Independent gait on level surface with use of FWW for at least 100 feet without report of pain nor dyspnea 8. Independent stair negotiation while holding onto B rails for at least 15 steps without report of pain nor dyspnea 9. Good static and dynamic standing balance/tolerance Plan of Care/Treatment Plan: 1-2x/day, 7 days/week x 1 week. Plan of care has been reviewed with the EMR ANALYST providing the service under Physical Therapy direction. Initiate Physical Therapy intervention for pain management as needed, strengthening, bed mobility, transfers, gait, stairs, balance training, and use of assistive device. DISCHARGE RECOMMENDATIONS: [] Home with no services [] [X] Home with services. Patient will benefit from home health PT services in order to progress mobility level using least restrictive assistive ambulatory device, assess home safety, identify additional equipment needs, and establish a functional maintenance program that will increase ability of patient to remain at home. [] Home with outpatient PT [] [] SNF for continued rehabilitation [] [] [facility] [] [] SNF versus LTC based on ability to participate and progress [] TREATMENT CODE/TIME: 15266 x 20 minutes, 87422 x 10 minutes beginning at 15:58 PM. Thank you for the opportunity to participate in the care of this patient. Estrellita Alcazar PT, DPT, CLT [facility] [place], [place]
--- NOTE | 2021-10-30 17:27 | PGE_ITS ---
Date of Service Date of service: 10/30/21 Time of Service: 17:31 Subjective Subjective Interval history since last seen: Received call from Dr. Pollard with concerns for T11 compression fx with vertebral fx ?this may involve the posterior vertebral cortex raising the possibility of a burst fracture. He stated there was large bridging osteophytes and this could be preventing cord compression but concern for cord compression. Legs weak with urinary incontinence. [facility] contacted. Imaging pushed to Spinal neuro surgery for further review and possible transfer Objective Last Vital Signs Temp 36.8 C 10/30/21 15:18 Pulse 78 10/30/21 15:18 Resp 18 10/30/21 15:18 BP 108/68 10/30/21 15:18 Pulse Ox 94 10/30/21 15:18 Laboratory Results - last 24 hr 10/30/21 10/30/21 10/30/21 00:30 00:30 00:30 WBC 11.50 H RBC 5.96 H Hgb 17.6 H Hct 55.9 H MCV 93.8 MCH 29.5 MCHC 31.5 L RDW 16.6 H Plt Count 285 MPV 9.6 Immature Gran % 0.5 Neutrophils % 78.4 Lymphocytes % 11.6 Monocytes % 7.9 Eosinophils % 1.0 Basophils % 0.6 Nucleated RBC % 0 Absolute Neutrophils 9.02 H Absolute Lymphocytes 1.33 Absolute Monocytes 0.91 H Absolute Eosinophils 0.12 Absolute Basophils 0.07 ESR PT 28.2 H INR 2.9 H APTT 35.7 H Sodium 126 L Potassium 3.2 L Chloride 98 Carbon Dioxide 25.5 Anion Gap 2.5 L BUN 43 H Creatinine 1.3 Estimated GFR/1.73 m2 53.96 Glucose 157 H Calcium 9.6 Magnesium Creatine Kinase C-Reactive Protein TSH Urine Color Urine Clarity Urine pH Ur Specific [place] Urine Protein Urine Ketones Urine Blood Urine Nitrite Urine Bilirubin Urine Urobilinogen Ur Leukocyte Esterase Urine Glucose COVID-19 Source SARS-CoV-2 (PCR) 10/30/21 10/30/21 10/30/21 01:08 01:20 02:43 WBC RBC Hgb Hct MCV MCH MCHC RDW Plt Count MPV Immature Gran % Neutrophils % Lymphocytes % Monocytes % Eosinophils % Basophils % Nucleated RBC % Absolute Neutrophils Absolute Lymphocytes Absolute Monocytes Absolute Eosinophils Absolute Basophils ESR PT INR APTT Sodium 140 D Potassium 3.5 Chloride 104 Carbon Dioxide 23.6 Anion Gap 12.4 H BUN 42 H Creatinine 1.2 Estimated GFR/1.73 m2 59.18 Glucose 146 H Calcium 9.3 Magnesium Creatine Kinase C-Reactive Protein TSH Urine Color Yellow Urine Clarity Clear Urine pH 5.5 Ur Specific [place] 1.015 Urine Protein Negative Urine Ketones Negative Urine Blood Negative Urine Nitrite Negative Urine Bilirubin Negative Urine Urobilinogen 0.2 Ur Leukocyte Esterase Negative Urine Glucose 500 H COVID-19 Source Nasal/Nares SARS-CoV-2 (PCR) Negative 10/30/21 10/30/21 10/30/21 07:25 07:25 07:25 WBC RBC Hgb Hct MCV MCH MCHC RDW Plt Count MPV Immature Gran % Neutrophils % Lymphocytes % Monocytes % Eosinophils % Basophils % Nucleated RBC % Absolute Neutrophils Absolute Lymphocytes Absolute Monocytes Absolute Eosinophils Absolute Basophils ESR 32 H PT INR APTT Sodium Potassium Chloride Carbon Dioxide Anion Gap BUN Creatinine Estimated GFR/1.73 m2 Glucose Calcium Magnesium Creatine Kinase 61 Cancelled C-Reactive Protein TSH 0.91 Urine Color Urine Clarity Urine pH Ur Specific [place] Urine Protein Urine Ketones Urine Blood Urine Nitrite Urine Bilirubin Urine Urobilinogen Ur Leukocyte Esterase Urine Glucose COVID-19 Source SARS-CoV-2 (PCR) 10/30/21 10/30/21 07:25 07:25 WBC RBC Hgb Hct MCV MCH MCHC RDW Plt Count MPV Immature Gran % Neutrophils % Lymphocytes % Monocytes % Eosinophils % Basophils % Nucleated RBC % Absolute Neutrophils Absolute Lymphocytes Absolute Monocytes Absolute Eosinophils Absolute Basophils ESR PT INR APTT Sodium Potassium Chloride Carbon Dioxide Anion Gap BUN Creatinine Estimated GFR/1.73 m2 Glucose Calcium Magnesium 2.0 Creatine Kinase C-Reactive Protein 1.20 H TSH Urine Color Urine Clarity Urine pH Ur Specific [place] Urine Protein Urine Ketones Urine Blood Urine Nitrite Urine Bilirubin Urine Urobilinogen Ur Leukocyte Esterase Urine Glucose COVID-19 Source SARS-CoV-2 (PCR)
--- NOTE | 2021-10-30 18:50 | W.PM.PROGNOT ---
Date of Service Date of service: 10/30/21 Time of Service: 18:50 Subjective Subjective Interval history since last seen: Call was placed earlier to [facility] neurosurgery regarding the case and I was asked to followup. Case reviewed. Patient does report sudden flare of LBP approx 2 weeks [employer] without trauma. Admitted last night with sudden aggravation of baseline LE weakness, along with episode of fecal incontinence (though this is also baseline). Imaging today of note for T11 fracture, large L1-2 disc herniation, and moderate (MRI)-severe (CT) L5-S1 central stenosis. Patient states that he feels back to baseline now. Does have some residual back pain, denies weakness or sensory changes. On exam, motor 5/5 prox/distal; sensory intact light touch and pinprick; DTR hyporeflexive throughout, toes are downgoing A/P Patient is neurologically intact and clinically back to baseline. I do not see any need for acute intervention. I have reviewed my findings with [facility]. I have asked them though to look at the MRI (they only had the CT) to ensure there are no other issues that may need attention. I suspect that the relatively sudden flare of back pain some 2 weeks ago may have been due to either the compression fracture or disc herniation, but again I see no need for any acute intervention here and there is no clinical indication of radiculopathy or myelopathy. I would advise seeing how the patient mobilizes in the morning. Objective Last Vital Signs Temp 36.8 C 10/30/21 15:18 Pulse 78 10/30/21 15:18 Resp 18 10/30/21 15:18 BP 108/68 10/30/21 15:18 Pulse Ox 94 10/30/21 15:18 Laboratory Results - last 24 hr 10/30/21 10/30/21 10/30/21 00:30 00:30 00:30 WBC 11.50 H RBC 5.96 H Hgb 17.6 H Hct 55.9 H MCV 93.8 MCH 29.5 MCHC 31.5 L RDW 16.6 H Plt Count 285 MPV 9.6 Immature Gran % 0.5 Neutrophils % 78.4 Lymphocytes % 11.6 Monocytes % 7.9 Eosinophils % 1.0 Basophils % 0.6 Nucleated RBC % 0 Absolute Neutrophils 9.02 H Absolute Lymphocytes 1.33 Absolute Monocytes 0.91 H Absolute Eosinophils 0.12 Absolute Basophils 0.07 ESR PT 28.2 H INR 2.9 H APTT 35.7 H Sodium 126 L Potassium 3.2 L Chloride 98 Carbon Dioxide 25.5 Anion Gap 2.5 L BUN 43 H Creatinine 1.3 Estimated GFR/1.73 m2 53.96 Glucose 157 H Calcium 9.6 Magnesium Creatine Kinase C-Reactive Protein TSH Urine Color Urine Clarity Urine pH Ur Specific [place] Urine Protein Urine Ketones Urine Blood Urine Nitrite Urine Bilirubin Urine Urobilinogen Ur Leukocyte Esterase Urine Glucose COVID-19 Source SARS-CoV-2 (PCR) 10/30/21 10/30/21 10/30/21 01:08 01:20 02:43 WBC RBC Hgb Hct MCV MCH MCHC RDW Plt Count MPV Immature Gran % Neutrophils % Lymphocytes % Monocytes % Eosinophils % Basophils % Nucleated RBC % Absolute Neutrophils Absolute Lymphocytes Absolute Monocytes Absolute Eosinophils Absolute Basophils ESR PT INR APTT Sodium 140 D Potassium 3.5 Chloride 104 Carbon Dioxide 23.6 Anion Gap 12.4 H BUN 42 H Creatinine 1.2 Estimated GFR/1.73 m2 59.18 Glucose 146 H Calcium 9.3 Magnesium Creatine Kinase C-Reactive Protein TSH Urine Color Yellow Urine Clarity Clear Urine pH 5.5 Ur Specific [place] 1.015 Urine Protein Negative Urine Ketones Negative Urine Blood Negative Urine Nitrite Negative Urine Bilirubin Negative Urine Urobilinogen 0.2 Ur Leukocyte Esterase Negative Urine Glucose 500 H COVID-19 Source Nasal/Nares SARS-CoV-2 (PCR) Negative 10/30/21 10/30/21 10/30/21 07:25 07:25 07:25 WBC RBC Hgb Hct MCV MCH MCHC RDW Plt Count MPV Immature Gran % Neutrophils % Lymphocytes % Monocytes % Eosinophils % Basophils % Nucleated RBC % Absolute Neutrophils Absolute Lymphocytes Absolute Monocytes Absolute Eosinophils Absolute Basophils ESR 32 H PT INR APTT Sodium Potassium Chloride Carbon Dioxide Anion Gap BUN Creatinine Estimated GFR/1.73 m2 Glucose Calcium Magnesium Creatine Kinase 61 Cancelled C-Reactive Protein TSH 0.91 Urine Color Urine Clarity Urine pH Ur Specific [place] Urine Protein Urine Ketones Urine Blood Urine Nitrite Urine Bilirubin Urine Urobilinogen Ur Leukocyte Esterase Urine Glucose COVID-19 Source SARS-CoV-2 (PCR) 10/30/21 10/30/21 07:25 07:25 WBC RBC Hgb Hct MCV MCH MCHC RDW Plt Count MPV Immature Gran % Neutrophils % Lymphocytes % Monocytes % Eosinophils % Basophils % Nucleated RBC % Absolute Neutrophils Absolute Lymphocytes Absolute Monocytes Absolute Eosinophils Absolute Basophils ESR PT INR APTT Sodium Potassium Chloride Carbon Dioxide Anion Gap BUN Creatinine Estimated GFR/1.73 m2 Glucose Calcium Magnesium 2.0 Creatine Kinase C-Reactive Protein 1.20 H TSH Urine Color Urine Clarity Urine pH Ur Specific [place] Urine Protein Urine Ketones Urine Blood Urine Nitrite Urine Bilirubin Urine Urobilinogen Ur Leukocyte Esterase Urine Glucose COVID-19 Source SARS-CoV-2 (PCR)
[2021-10-30] MEDS: Normal Saline Flush 10 ML SYR IVP (20:45)
[2021-10-30] MEDS: Warfarin 4 MG TAB PO (21:33)
[2021-10-31 06:46] LABS: INR 2.9 (0.9-1.1)
[2021-10-31 07:12] VITALS: BP 111/72; PULSE 72; RESP 19; TEMP 36; O2SAT 96
[2021-10-31] MEDS: Nystatin POWDER 60 GM JAR TP (07:42)
[2021-10-31] MEDS: Furosemide 20 MG TAB PO (07:43)
[2021-10-31] MEDS: Clindamycin 300 MG CAP PO (07:43)
[2021-10-31] MEDS: Lisinopril 20 MG TAB PO (07:43)
[2021-10-31] MEDS: Metoprolol CR 100 MG TABCR PO (07:43)
[2021-10-31] MEDS: Ciprofloxacin 500 MG TAB PO (07:43)
[2021-10-31] MEDS: Allopurinol 300 MG TAB PO (07:43)
[2021-10-31] MEDS: Potassium Chloride 20 MEQ TABCR PO (07:44)
[2021-10-31] MEDS: Atorvastatin 40 MG TAB 80 MG PO (07:44)
[2021-10-31] MEDS: Normal Saline Flush 10 ML SYR IVP (07:44)
--- NOTE | 2021-10-31 10:09 | PDOC.CMPRO ---
- If Service Date Differs Date of service: 10/31/21 Time of Service: 10:09 Care Management Progress Note S/O: A: Jimbo is a 76 year old man admitted on 10/30/21 with bilateral hip weakness P:Jimbo will likely be discharged home when medically cleared by provider. PT will assess his need for physical therapy. He will follow up with his PCP and discharge plan of care as directed. He will be transported home via private vehicle by his when ready. CM will continue to follow.
--- NOTE | 2021-10-31 10:54 | DSE_ITS ---
Date of service: 10/31/21 Time of Service: 10:54 DS: Diagnosis Discharge Diagnosis (1) Bilateral leg weakness: Status: Acute (2) Venous stasis ulcer of ankle limited to breakdown of skin without varicose veins: Status: Acute (3) Atrial fibrillation: Status: Chronic (4) Anticoagulant long-term use: Status: Chronic Discharge Plan Disposition Patient Disposition: HOME W/HOME HEALTH SERVICE Condition: Improving Discharge Details Reason For Visit: Bilateral Hip Weakness Admit Date/Time: 10/30/21 01:38 Admit Provider: Emmanuel Wong Attending Provider: Emmanuel Wong Primary Care Provider: Nick Nettles Hospital Course Hospital Course: This is a 76 year old male who presented to the emergency department with an episode of bilateral lower extremity weakness. He states he lowered himself to the floor and had no injury. There was no other complaints. He reports chronic incontinence which is unchanged. 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 He is currently taking clindamycin and cipro for left lower infection of chronic ulcer. His work up in the ED included a CT scan that showed severe central canal and foraminal stenosis at L4 and L5. there was no evidence of cauda equina on exam. He was admitted to med/surg on hospitalist under observation to undergo an MRI and PT evaluation. His symptoms of weakness completely resolved and he now attributes to a late dose of lasix that may have caused him to have a drop in blood pressure when he got up. He remained normotensive while hospitalized. His MRI did reveal a T11 fracture, large L1-2 disc herniation, and moderate (MRI)-severe (CT) L5-S1 central stenosis. This finding was discussed with [facility] neurosurgery who reportedly sees no emergent need to transfer or emergent evaluation by their team. He remains at his baseline with no further symptoms of weakness. he does report a dull ache in his midback. He report apap is effective. His neurologic exam remains unremarkable. He is evaluated by PT and is safely reambulated. He is safe for discharge to home with home health services. He will follow up with pcp and will defer outpatient spine referrals to pcp discretion. his INR 2.9, he should continue coumadin and monitoring as directed, likely more closely while on antibiotics. discharge discussed with DR Rivers. Home Meds and New Rx's Prescriptions: Continued furosemide 40 MG tablet 20 mg PO BID 0RF atorvastatin [Lipitor] 80 MG tablet 80 mg PO DAILY 0RF metoprolol succinate 100 MG tablet extended release 24 hr 100 mg PO DAILY 0RF nitroglycerin 0.4 MG tablet, sublingual 0.4 mg Sublingual PRN PRN (Reason: Chest Pain) 0RF lisinopril 40 MG tablet 20 mg PO DAILY 0RF warfarin [Coumadin] 5 MG tablet 5 mg PO QMWF 0RF potassium citrate 10 MEQ tablet extended release 20 meq PO BID 0RF allopurinol 300 MG tablet 300 mg PO DAILY 0RF ciprofloxacin HCl 500 mg tablet 500 mg PO BID 0RF Label Comments: TAKE 1 TABLET BY MOUTH EVERY 12 HOURS clindamycin HCl 300 mg capsule 300 mg PO TID 0RF Label Comments: TAKE 1 CAPSULE BY MOUTH EVERY 8 HOURS FOR 7 DAYS warfarin 4 mg Tablet 4 mg PO QTUTHSASU 0RF Jardiance 25 mg Tablet 25 mg PO DAILY AM 0RF Discharge Instructions Instructions: Vertebral Compression Fracture (DC) Additional Instructions: use walker at all times for gait safety and stability. your INR today is 2.9, continue coumadin and INR checks as directed by outpatient team. complete antibiotic course as previously directed. Referrals: Nick Nettles MD [Primary Care Provider] - Activity:: Activity as Tolerated Equipment/Supplies:: Walker Diet:: Carb Counting Discharge Orders Discharge Orders: Discharge Order (Routine); Ordered 10/31/21 Ordered By: Jigna Rodriguez DS: Summary Time Spent with Patient providing and/or coordinating discharge services: Greater than 30 minutes Status at Discharge Functional status at discharge: uses cane/walker Overall status at discharge: patient is back to baseline Mental Status: mental status grossly normal Speech and Movement: speech and movement normal Mood: congruent mood Affect: normal affect Exam Const General: cooperative, comfortable and no acute distress Nutritional Appearance: obese Orientation: alert, awake and oriented x3 HENMT Head: normal to inspection, normocephalic and atraumatic Mouth: oral mucosae normal Resp Effort & Inspection: normal respiratory effort (even and unlabored) and able to speak in complete sentences Cardio Rate: regular rate GI Inspection: normal to inspection and obesity Skin General skin exam: other (bilateral lower extremities with edema, wraps i ntact.dryness and chronic) Neuro General: patient alert, patient awake, patient oriented x3 and no focal motor deficits Cognition: normal cognition Speech: speech normal Gait: normal gait and gait assisted Method: walker Motor: muscle tone normal throughout and strength 5/5 throughout Sensory Exam: no sensory deficits noted and upper extremity Extrem General: full ROM and edema Laterality: bilateral Psych Mental Status: mental status grossly normal Speech and Movement: speech and movement normal Mood: congruent mood Affect: normal affect DS: Data Vitals/I&O Vitals and I&O: Vital Signs Temperature 36.0 C L 10/31/21 07:12 Temperature Source Tympanic 10/31/21 07:12 Pulse 72 10/31/21 07:12 Pulse Rhythm Regular 10/31/21 08:00 Pulse 82 10/30/21 02:46 Respiratory Rate 19 10/31/21 07:12 Respiratory Effort 10/31/21 08:00 Respiratory Depth Shallow 10/31/21 08:00 Respiratory Pattern Normal 10/31/21 08:00 Blood Pressure 111/72 10/31/21 07:12 Blood Pressure Mean 90 10/30/21 02:46 Blood Pressure Position Supine 10/29/21 23:35 Pulse Oximetry 96 10/31/21 07:12 Oxygen Delivery Method Room Air 10/31/21 07:12 Oxygen Flow Rate 0 10/31/21 07:12 Pain Level 0 10/30/21 23:00 Intake & Output 10/30/21 10/30/21 10/31/21 11:59 23:59 11:59 Intake Total 472 / 732 260 / 732 360 / 360 Output Total 2875 / 2875 550 / 550 Balance -2403 / -2143 260 / -2143 -190 / -190 Weight 153.1 kg 156.3 kg Intake: IV 112 / 122 10 / 122 Oral 360 / 610 250 / 610 360 / 360 Output: Urine 2875 / 2875 550 / 550 Other: Urine Color Yellow Yellow Yellow Urine Appearance Clear Clear Clear Urine Odor Normal Normal Comment Hat was not in the toilet, could not measure unable to measure Stool Size Copious Moderate Stool Characteristics Soft Soft Brown Formed Voiding Methods Urinal Toilet Toilet Data Completed and Pending Labs on day of discharge: Labs from last 24 hours 10/31/21 06:19 PT 28.0 H INR 2.9 H PFSH All Active Problems Bilateral leg weakness (Acute) Lumbago (Acute) Non compliance with medical treatment (Acute) Venous stasis ulcer of ankle limited to breakdown of skin without varicose veins (Acute) Trochanteric bursitis, left hip (Acute) H/O surgical procedure (Chronic) a. Bilateral hip replacement b. Nephrolithotomy c. Right ureteral stent placement d. Coronary artery stent placement 2006 e. Adult circumcision f. Colonoscopy 11/2013 History of revision of total replacement of left hip joint (Acute 11/01/20) Acetabular revision with head/liner exchange for fractured femoral head prosthesis. Pure hypercholesterolemia, unspecified (Acute) Cerumen impaction (Acute) Body mass index (BMI) 50.0-59.9, adult (Acute) Type 2 diabetes mellitus without complications (Acute) Neoplasm of unspecified behavior of bone, soft tissue, and skin (Acute) Nasal dryness (Acute) Acute cholecystitis (Acute 09/07/14) Morbid obesity (Chronic) CAD (coronary artery disease) (Chronic) a. coronary artery stent placement 2006 Atrial fibrillation (Chronic) A. On Coumadin Anticoagulant long-term use (Chronic) Personal history of pulmonary embolism (Chronic) Hypertension (Chronic) TOM (obstructive sleep apnea) (Chronic) Personal history of kidney stones (Chronic) a. uric acid stones Venous stasis ulcer (Chronic) Venous (peripheral) insufficiency (Chronic) H/O bilateral hip replacements (Chronic) Social History Smoking/Tobacco Use Status: Former Tobacco Use Smoking risk assessment performed?: Yes Drug use: Never Substance use type: does not use Do you feel safe at home: Yes Do you feel safe in your relationship?: Yes
--- NOTE | 2021-10-31 10:55 | PDOC.HHF2F_ITS ---
Home Health Certification Home Health Certification: 1. Encounter Date and Reason I certify that Jaime Crouch JR was seen by Jigna Rodriguez on 10/31/21 and that I had a [id number] encounter with this patient that meets the physician face to face encounter requirements. 2. Clinical Findings Supporting Skilled Need and Homebound Status I certify that home health services are medically necessary, include either intermittent nursing home and/or physical/speech therapy, and that this patient is homebound in that absences from the home require considerable and taxing effort and are infrequent or of short duration, or are attributable to the need to receive medical care. [X] (a) Attached documentation from encounter provides clinical findings supporting skilled need and homebound status (including what assistance patient requires to leave the home). The encounter with the patient was in whole, or in part, for the following medical condition, which is the primary reason for home health care: Bilateral Hip Weakness, T11 vertebral compression fracture Physical Therapy: Routine evaluation and management. Home safety evaluation. Homebound: patient is unable to safely leave the house unassisted d/t decreased strength and endurance. 3. Certification and Authentication I certify that I composed the above information based on my clinical judgment relating to this patient's medical condition and, if applicable, clinical findings communicated to me by the NPP or inpatient physician who performed the Home Health Referral. All further orders will be obtained through _Nick Nettles M.D.___(Community Based Physician - PCP)
--- NOTE | 2021-10-31 15:10 | INDS_ITS ---
Date of service: 10/31/21 Time of Service: 10:10 PT Notes Visit Reasons: Bilateral Hip Weakness Physical Therapy Inpatient Discharge Summary Date: 10/31/2021 DAtes of Service: 10/30/2021 through 10/31/2021 Referring Doctor: Suma Martin NP PT Orders: PT CONSULT: Fall safety assessment.? Eval for assistive device.? Limited ability.? Extended stay weakness. Precautions: Fall. Standard. Activity as tolerated. Patient Profile/Admitting Diagnosis: Jimbo is a 76-year-old male on chronic anticoagulation who presented to the ED on 10/30/2021 due to bilateral low lower extremity weakness which resulted to his legs giving out and slowly lowering himself onto the floor today.? Patient is diagnosed with atrial fibrillation, bilateral lower extremity weakness, and venous stasis ulcers. PMHX: All Active Problems? Bilateral leg weakness (Acute) Lumbago (Acute) Non compliance with medical treatment (Acute) Venous stasis ulcer of ankle limited to breakdown of skin without varicose veins (Acute) Trochanteric bursitis, left hip (Acute) H/O surgical procedure (Chronic) a.? Bilateral hip replacement b.? Nephrolithotomy c.? Right ureteral stent placement d.? Coronary artery stent placement 2006 e.? Adult circumcision f.? Colonoscopy 11/2013History of revision of total replacement of left hip joint (Acute 11/01/20) Acetabular revision with head/liner exchange for fractured femoral head prosthesis.Pure hypercholesterolemia, unspecified (Acute) Cerumen impaction (Acute) Body mass index (BMI) 50.0-59.9, adult (Acute) Type 2 diabetes mellitus without complications (Acute) Neoplasm of unspecified behavior of bone, soft tissue, and skin (Acute) Nasal dryness (Acute) Acute cholecystitis (Acute 09/07/14) Morbid obesity (Chronic) CAD (coronary artery disease) (Chronic) a.? coronary artery stent placement 2007Atrial fibrillation (Chronic) A.? On CoumadinAnticoagulant long-term use (Chronic) Personal history of pulmonary embolism (Chronic) Hypertension (Chronic) TOM (obstructive sleep apnea) (Chronic) Personal history of kidney stones (Chronic) a.? uric acid stonesVenous stasis ulcer (Chronic) Venous (peripheral) insufficiency (Chronic) H/O bilateral hip replacements (Chronic) Social History/Home Situation: Lives with in a private home with 4 steps to enter with a rail on 1 side.? His bedroom is on the second floor of the house with 15 steps to enter with rails on both sides. Equipment Owned/DME: 1 bariatric front wheeled walker and 1 regular front wheel walker Subjective: Confident about going home today after tackling the steps. Objective: General Observation: High BMI.? IV access in right UE. Mental Status: Alert and oriented as to person, place, time, and purpose. Able to pay attention, focus, and respond appropriately. Pain: 3?4/10 in the low back area ROM: Right Upper Extremity: ? Shoulder Flexion WFL. Shoulder abduction WFL. Elbow flexion WFL. Wrist flexion WFL. Functional opening and closing of hand WFL. Left Upper Extremity:? Shoulder Flexion WFL. Shoulder abduction WFL. Elbow flexion WFL. Wrist flexion WFL. Functional opening and closing of hand WFL. Right Lower Extremity: Hip flexion unable to flex beyond 90 degrees in sitting position due to abdominal panniculus.? Hip abduction WFL. Knee flexion WFL. Ankle dorsiflexion to neutral only. Ankle plantarflexion WFL. Left Lower Extremity: Hip flexion unable to flex beyond 90 degrees in sitting position due to abdominal panniculus.? Hip abduction WFL. Knee flexion WFL. Ankle dorsiflexion to neutral only. Ankle plantarflexion WFL. Strength: Right Upper Extremity: Shoulder flexors 4/5. Shoulder abductors 4/5. Elbow flexors 4/5. Elbow extensors 4/5. Storage Manager strong. Left Upper Extremity: Shoulder flexors 4/5. Shoulder abductors 4/5. Elbow flex ors 4/5. Elbow extensors 4/5. Storage Manager strong. Right Lower Extremity: Hip flexors 3-/5. Hip abductors 4-/5. Knee flexors 4-/5. Knee extensors 4-/5. Ankle dorsiflexors 3-/5. Ankle plantarflexors 4-/5. Left Lower Extremity: Hip flexors 3-/5. Hip abductors 4-/5. Knee flexors 4-/5. Knee extensors 4-/5. Ankle dorsiflexors 3-/5. Ankle plantarflexors 4-/5. Bed Mobility/Transfers: Sit to stand with supervision Stand to sit with supervision Bed to reclining chair with supervision Gait: Instructed patient with level surface ambulation of 100 feet +100 feet requiring supervision. Juany improved. Step height decreased.? Step length decreased. Reports low back pain of 3-4/10 that resolves with rest. Balance: Static Sitting: Normal Dynamic Sitting: Normal Static Standing: Fair Dynamic Standing: Fair Assessment: Able to tolerate stair activity with modifications, needing to slow down, and pace self to manage all 15 steps. He has rails on both sides that help with energy conservation.? Patient presents with clinical signs and symptoms consistent with current/admitting diagnoses that have resulted to mobility limitations, gait instability, generalized weakness, and overall ADL decline as demonstrated by the following impairment level findings: 1.? Decreased strength to BLEmajor muscle groups 2.? Impaired standing balance 3.? Impaired activity tolerance 4.? Chronic swelling on BLE 5. Low back pain aggravated with weight bearing Impairments are contributing to the following functional limitations: 1.? Difficulty with ambulation without assistive device 2.? Increased completion time for mobility ADL performance 3.? Increased risk for falls 4.? Difficulty with managing steps alone safely Goals: Goals X1 week 1. Supine-Sit independent NOT MET 2. Sit-Supine independent NOT MET 3. Sit-Stand independent NOT MET 4. Stand-Sit independent with FWW NOT MET 5. Bed-Chair independent with FWW NOT MET 6. Chair-Bed independent with FWW NOT MET 7. Independent gait on level surface with use of FWW for at least 100 feet without report of pain nor dyspnea NOT MET 8. Independent stair negotiation while holding onto B rails for at least 15 steps without report of pain nor dyspnea NOT MET 9. Good static and dynamic standing balance/tolerance DISCHARGE RECOMMENDATIONS: [] ? Home with no services [] [X] ? Home with services.? Patient will benefit from home health PT services in order to progress mobility level using least restrictive assistive ambulatory device, assess home safety, identify additional equipment needs, and establish a functional maintenance program that will increase ability of patient to remain at home. [] ? Home with outpatient PT [] [] ? SNF for continued rehabilitation [] [] ? [employer] [facility] [] [] ? SNF versus LTC based on ability to participate and progress [] TREATMENT CODE/TIME: 33935 x 19 minutes beginning at 15:10 PM. Thank you for the opportunity to participate in the care of this patient. Estrellita Alcazar PT, DPT, CLT [facility] [place], [place]
--- NOTE | 2021-10-31 15:21 | PDOC.CMDIS ---
- If Service Date Differs Date of service: 10/31/21 Time of Service: 15:21 LACE Index Scoring Tool - Questions: Length of Stay (in days): 1 Acuity (Admit via E.D.?): Yes Comorbidities: Diabetes w/o Complication, Any Tumor E.D. Visits: 1 - Answers: Total Score: 8 Risk of Readmission: Low Risk Care Management Discharge Reason for Hospitalization: Bilateral hip weakness. Discharge Plan: Jimbo will be discharged home with new home health orders for OT and PT. He will follow up with his PCP and discharge plan of care as directed and will be transported home via private vehicle by his . Patient/Family Education Needs: Review of discharge instructions including limitations, medications, and follow up plan of care; discuss Ask Me Three and self management.
== END 2021-10-31 13:35 | disposition home health service (06) ==
LOC: ER 10-30 02:29 → MS 10-30 02:50
PROVIDERS: General Practice; Admitting Provider Family Medicine; Emergency Provider Student in an Organized Health Care Education/Training Program; PCP Internal Medicine; Visit Provider Family Medicine
DX: R29.898 Other symptoms and signs involving the musculoskeletal system (principal); I87.2 Venous insufficiency (chronic) (peripheral); E11.9 Type 2 diabetes mellitus without complications; I48.91 Unspecified atrial fibrillation; Z79.01 Long term (current) use of anticoagulants; Z20.822 Contact with and (suspected) exposure to COVID-19; E78.00 Pure hypercholesterolemia, unspecified; Z68.42 Body mass index [BMI] 45.0-49.9, adult; E66.01 Morbid (severe) obesity due to excess calories; G47.33 Obstructive sleep apnea (adult) (pediatric); R32 Unspecified urinary incontinence; L97.321 Non-pressure chronic ulcer of left ankle limited to breakdown of skin; Z96.643 Presence of artificial hip joint, bilateral
CPT/HCPCS: 36415; 73521; 80048; 82550; 85652; 87635; 96365; 96375; 97162; 97530; 99285; 72131; 72148; 81003; 83735; 84443; 85025; 85610; 85730; 86140; 99217; G0378; J2930

== ENCOUNTER 2021-11-04 13:57 | Observation (INO) | payer MEDICARE, SELFPAY ==
[2021-11-04] VITALS (9 sets, daily range): BP systolic 113–145; BP diastolic 69–91; PULSE 71–85; RESP 17–19; TEMP 36.5–36.9; O2SAT 96–99
--- NOTE | 2021-11-04 14:45 | DI.RAD_ITS ---
Exam(s) XR KNEE RT 3V AP,LAT,COLIN EXAM: XR KNEE RT 3V AP,LAT,COLIN CLINICAL HISTORY: pain post fall. TECHNIQUE: 2D digital imaging was performed. COMPARISON: CR RIGHT KNEE 3 VIEWS from 03/01/2015 FINDINGS: BONES: No acute fracture is present. No bony destructive lesion is seen. JOINTS: There is moderate to severe narrowing of the medial femoral tibial joint space and periarticu lar spurring. No joint effusion is seen. SOFT TISSUE: Edema in the subcutaneous fat. Soft tissue swelling anterior to patella. Vascular calc ifications. IMPRESSION: Prepatellar soft tissue swelling and degenerative changes. No evidence of fracture. DATA REPOSITORY: RADIATION DOSE DELIVERED:
--- NOTE | 2021-11-04 14:45 | RT.EKG_ITS ---
APPROVED REPORT Exam: Resting ECG Reason for Exam: weakness Patient Location: E HR:78 bpm ECG Measurements Heart Rate 78 AXIS NY 218 P 0 QRSd 117 QRS -18 QT 369 T 34 QTc 407 Conclusion Sinus rhythm...normal P axis, V-rate 60- 99 Atrial premature complexes in couplets...pair SV complexes w/ short R-R Borderline prolonged NY interval...NY >212, V-rate 50- 90 Nonspecific intraventricular conduction delay...QRSd >115mS, not LBBB/RBBB Inferior infarct, old...Q >35mS, II III aVF Sinus. PACs. No STEMI. I have reviewed and interpreted ECG and agree with software generated interpretation.
[2021-11-04 15:03] LABS: Abs Immature Grans 0.07 10^3/uL (0.0-0.06); Absolute Basophil Count 0.06 10^3/uL (0.0-0.2); Absolute Eosinophil Count 0.08 10^3/uL (0.0-0.7); Absolute Lymphocyte Count 1.07 10^3/uL (1.2-3.4); Absolute Monocyte Count 0.69 10^3/uL (0.1-0.8); Absolute Neutrophil Count 7.72 10^3/uL (1.2-6.7); Basophils % 0.6; Eosinophils % 0.8; HCT 53.7 % (40.0-50.0); HGB 17.4 g/dL (13.5-17.5); Immature Grans % 0.7; MCH 29.9 pg (27.0-33.0); MCHC 32.4 % (32.0-36.0); MCV 92.4 fL (80-95); MPV 9.3 fL (8.0-11.0); Monocytes % 7.1; Neutrophils % 79.8; Nucleated RBC 0 %; Platelet Count 278 10^3/uL (130-400); RBC 5.81 10^6/uL (4.36-5.78); RDW 16.4 % (11.8-14.1); RDW-SD 55.4 fL; WBC 9.69 10^3/uL (4.4-10.8)
[2021-11-04 15:05] LABS: Bilirubin Negative (Negative); Blood Negative (Negative); Clarity Clear (Clear); Glucose >=1000 mg/dL (Negative); Ketones Negative (Negative); Leukocyte Esterase Negative (Negative); Nitrite Negative (Negative); Specific Gravity 1.015 (1.005-1.025); Urobilinogen 0.2 EU/dL (Up TO 0.2); pH 5.5 (5-8)
[2021-11-04 15:21] LABS: INR 3.3 (0.9-1.1); Prothrombin Time 32.3 sec (9.3-11.0)
[2021-11-04 15:31] LABS: ALT 83 U/L (16-63); AST 47 U/L (15-37); Albumin 3.3 g/dL (3.4-5.0); Alkaline Phosphatase 121 U/L (46-116); Anion Gap 8.3 mmol/L (3-11); BUN 31 mg/dL (7-18); Bilirubin, Total 0.8 mg/dL (0.2-1.0); CO2 25.7 mmol/L (21.0-32.0); CREATININE 1.2 mg/dL (0.70-1.30); Calcium 9.3 mg/dL (8.5-10.1); Chloride 104 mmol/L (98-107); Estimated GFR 59.18 (mL/min/1.73m2); Glucose 143 mg/dL (74-106); Potassium 4.1 mmol/L (3.5-5.1); Sodium 138 mmol/L (136-145); Total Protein 7.4 g/dL (6.4-8.2)
--- NOTE | 2021-11-04 15:35 | W.ED.GENAD ---
Discharge Plan Disposition Patient Disposition: [facility] INPATIENT Condition: Stable Discharge Details Clinical Impression: Lumbago, Bilateral leg weakness Admit Date/Time: 11/04/21 15:50 Admit Provider: Gerardo Benitez Attending Provider: Gerardo Benitez Primary Care Provider: Nick Nettles ED Provider: Marium Linton Discharge Data Discharge Date/Time-TO BE ENTERED AT DEPARTURE: 11/04/21 17:35 Medical Decision Making Patient attempted ambulatory trial fall secondary to lower extremity weakness This is a recurrent issue for patient and he is requesting placement as he is unable to ambulate around his home safely I did review his MRI from his previous hospitalization that showed burst fracture looks like [facility] was consulted and there was no indication for emergent surgery and patient does not exhibit any signs of evidence of cauda equina syndrome at this time He will need placement secondary to his lower extremity symptoms Patient denies any saddle anesthesia, urinary incontinence, stool incontinence,, or retention Patient denies any current back discomfort. T11 compression fracture case discussed with Dr. Benitez who is agreeable to admission of patient xray knee still pending, low suspicion for fracture Medical Records Medical records reviewed: Yes I reviewed the patient's medical records. HPI General Date/Time Provider Initiated Documentation: 11/04/21 13:59. HPI Narrative: This 76-year-old male presents with report of back pain and weakness. Patient was hospitalized for similar presentation approximately 3 days prior to arrival here today. He states he was ambulatory, however today he went down on the toilet and was unable to stand. Denies any chest pain or shortness of breath. He denies any dizziness or weakness. He denies any upper extremity weakness or dizziness. He did have a fall when he arrived home 2 days ago. He states he landed on his right knee. He states his tetanus is up-to-date. He denies any head injury without fall. He denies any additional complaints at this time. He denies any changes in bowel or bladder. He denies any fever or chills. Related Data Home Medications Medication Instructions Recorded Confirmed atorvastatin 80 mg tablet (Lipitor) 80 mg PO HS 09/07/14 11/04/21 furosemide 40 mg tablet 20 mg PO BID 09/07/14 11/04/21 lisinopril 40 mg tablet 20 mg PO DAILY 09/07/14 11/04/21 metoprolol succinate 100 mg 100 mg PO DAILY 09/07/14 11/04/21 tablet,extended release 24 hr nitroglycerin 0.4 mg sublingual 0.4 mg SUBLINGUAL PRN PRN 09/07/14 11/04/21 tablet warfarin 5 mg tablet (Coumadin) 5 mg PO QMWF 08/29/15 11/04/21 allopurinol 300 mg tablet 300 mg PO DAILY 12/30/16 11/04/21 potassium citrate 10 mEq (1,080 20 meq PO BID 12/30/16 11/04/21 mg) tablet,extended release empagliflozin 25 mg tablet 25 mg PO DAILY AM 10/30/21 11/04/21 (Jardiance) warfarin 4 mg tablet 4 mg PO QTUTHSASU 10/30/21 11/04/21 Allergies Allergy/AdvReac Type Severity Reaction Status Date / Time metformin AdvReac DIARRHEA Verified 10/30/21 15:55 General Stated Complaint: GenMedical NADINE: 2 Review of Systems All systems reviewed & are unremarkable except as noted in HPI and below PFSH All Active Problems Discharge planning issues (Acute) Bilateral leg weakness (Acute) Lumbago (Acute) Non compliance with medical treatment (Acute) Trochanteric bursitis, left hip (Acute) H/O surgical procedure (Chronic) a. Bilateral hip replacement b. Nephrolithotomy c. Right ureteral stent placement d. Coronary artery stent placement 2006 e. Adult circumcision f. Colonoscopy 11/2013 History of revision of total replacement of left hip joint (Acute 11/01/20) Acetabular revision with head/liner exchange for fractured femoral head prosthesis. Pure hypercholesterolemia, unspecified (Acute) Cerumen impaction (Acute) Body mass index (BMI) 50.0-59.9, adult (Acute) Type 2 diabetes mellitus without complications (Acute) Neoplasm of unspecified behavior of bone, soft tissue, and skin (Acute) Nasal dryness (Acute) Acute cholecystitis (Acute 09/07/14) Morbid obesity (Chronic) CAD (coronary artery disease) (Chronic) a. coronary artery stent placement 2006 Personal history of pulmonary embolism (Chronic) Hypertension (Chronic) TOM (obstructive sleep apnea) (Chronic) Personal history of kidney stones (Chronic) a. uric acid stones Venous stasis ulcer (Chronic) Venous (peripheral) insufficiency (Chronic) H/O bilateral hip replacements (Chronic) Medical History Anticoagulant long-term use Atrial fibrillation A. On Coumadin Venous stasis ulcer of ankle limited to breakdown of skin without varicose veins Social History Smoking/Tobacco Use Status: Former Tobacco Use Smoking risk assessment performed?: Yes Drug use: Never Substance use type: does not use Do you feel safe at home: Yes Do you feel safe in your relationship?: Yes Exam Const General: cooperative and no acute distress HENMT Head: normal to inspection Eyes Pupils: PERRL Resp Effort & Inspection: normal respiratory effort Cardio Rate: regular rate Rhythm: regular rhythm GI Inspection: normal to inspection Other: No abdominal tenderness Skin General skin exam: no rashes or lesions noted Neuro General: patient alert and patient oriented x3 Other: Strength and sensation intact distally Extrem Other: 2+edema bilateral lower extremities, abrasion noted to right knee, ecchymosis Course Vital Signs Vital signs: Vital Signs Temperature 36.5 C 11/04/21 13:59 Pulse 75 11/04/21 13:59 Respiratory Rate 17 11/04/21 13:59 Blood Pressure 138/82 11/04/21 13:59 Pulse Oximetry 96 11/04/21 13:59 Temperature 36.5 C 11/04/21 13:59 Temperature Source Temporal Artery Scan 11/04/21 13:59 Pulse 85 11/04/21 15:01 Respiratory Rate 17 11/04/21 13:59 Respiratory Effort Non-Labored 11/04/21 15:15 Respiratory Depth Normal 11/04/21 15:15 Respiratory Pattern Normal 11/04/21 15:15 Blood Pressure 143/75 H 11/04/21 15:01 Blood Pressure Mean 91 11/04/21 15:01 Blood Pressure Position Supine 11/04/21 13:59 Pulse Oximetry 97 11/04/21 15:01 Pain Level 2 11/04/21 13:59 Lab/Test Results Lab/Test Results: Laboratory Tests Range/Units 11/04/21 11/04/21 11/04/21 14:11 14:30 14:30 WBC (4.4-10.8) 10^3/uL 9.69 RBC (4.36-5.78) 10^6/uL 5.81 H Hgb (13.5-17.5) g/dL 17.4 Hct (40.0-50.0) % 53.7 H MCV (80-95) fL 92.4 MCH (27.0-33.0) pg 29.9 MCHC (32.0-36.0) % 32.4 RDW (11.8-14.1) % 16.4 H Plt Count (130-400) 10^3/uL 278 MPV (8.0-11.0) fL 9.3 Immature Gran % 0.7 Neutrophils % 79.8 Lymphocytes % 11.0 Monocytes % 7.1 Eosinophils % 0.8 Basophils % 0.6 Nucleated RBC % % 0 Absolute Neutrophils (1.2-6.7) 10^3/uL 7.72 H Absolute Lymphocytes (1.2-3.4) 10^3/uL 1.07 L Absolute Monocytes (0.1-0.8) 10^3/uL 0.69 Absolute Eosinophils (0.0-0.7) 10^3/uL 0.08 Absolute Basophils (0.0-0.2) 10^3/uL 0.06 PT (9.3-11.0) sec INR (0.9-1.1) Sodium (136-145) mmol/L 138 Potassium (3.5-5.1) mmol/L 4.1 Chloride (98-107) mmol/L 104 Carbon Dioxide (21.0-32.0) mmol/L 25.7 Anion Gap (3-11) mmol/L 8.3 BUN (7-18) mg/dL 31 H Creatinine (0.70-1.30) mg/dL 1.2 Estimated GFR/1.73 m2 (mL/min/1.73m2) 59.18 Glucose (74-106) mg/dL 143 H Calcium (8.5-10.1) mg/dL 9.3 Total Bilirubin (0.2-1.0) mg/dL 0.8 AST (15-37) U/L 47 H ALT (16-63) U/L 83 H Alkaline Phosphatase (46-116) U/L 121 H Total Protein (6.4-8.2) g/dL 7.4 Albumin (3.4-5.0) g/dL 3.3 L Urine Color (Yellow) Yellow Urine Clarity (Clear) Clear Urine pH (5-8) 5.5 Ur Specific [place] (1.005-1.025) 1.015 Urine Protein (Negative) mg/dL Negative Urine Ketones (Negative) mg/dL Negative Urine Blood (Negative) Negative Urine Nitrite (Negative) Negative Urine Bilirubin (Negative) Negative Urine Urobilinogen (Up TO 0.2) EU/dL 0.2 Ur Leukocyte Esterase (Negative) Negative Urine Glucose (Negative) mg/dL >=1000 H Range/Units 11/04/21 14:30 WBC (4.4-10.8) 10^3/uL RBC (4.36-5.78) 10^6/uL Hgb (13.5-17.5) g/dL Hct (40.0-50.0) % MCV (80-95) fL MCH (27.0-33.0) pg MCHC (32.0-36.0) % RDW (11.8-14.1) % Plt Count (130-400) 10^3/uL MPV (8.0-11.0) fL Immature Gran % Neutrophils % Lymphocytes % Monocytes % Eosinophils % Basophils % Nucleated RBC % % Absolute Neutrophils (1.2-6.7) 10^3/uL Absolute Lymphocytes (1.2-3.4) 10^3/uL Absolute Monocytes (0.1-0.8) 10^3/uL Absolute Eosinophils (0.0-0.7) 10^3/uL Absolute Basophils (0.0-0.2) 10^3/uL PT (9.3-11.0) sec 32.3 H INR (0.9-1.1) 3.3 H Sodium (136-145) mmol/L Potassium (3.5-5.1) mmol/L Chloride (98-107) mmol/L Carbon Dioxide (21.0-32.0) mmol/L Anion Gap (3-11) mmol/L BUN (7-18) mg/dL Creatinine (0.70-1.30) mg/dL Estimated GFR/1.73 m2 (mL/min/1.73m2) Glucose (74-106) mg/dL Calcium (8.5-10.1) mg/dL Total Bilirubin (0.2-1.0) mg/dL AST (15-37) U/L ALT (16-63) U/L Alkaline Phosphatase (46-116) U/L Total Protein (6.4-8.2) g/dL Albumin (3.4-5.0) g/dL Urine Color (Yellow) Urine Clarity (Clear) Urine pH (5-8) Ur Specific [place] (1.005-1.025) Urine Protein (Negative) mg/dL Urine Ketones (Negative) mg/dL Urine Blood (Negative) Urine Nitrite (Negative) Urine Bilirubin (Negative) Urine Urobilinogen (Up TO 0.2) EU/dL Ur Leukocyte Esterase (Negative) Urine Glucose (Negative) mg/dL PAWSS Have you Been Recently Intoxicated or Drunk Within the Last 30 days?: No Have you Ever Experienced Previous Episodes of Alcohol Withdrawal?: No Have you ever Experienced Withdrawal Seizures?: No Have you ever Experienced Delirium Tremens(DT)s?: No Have you ever undergone Alcohol Rehabilitation Treatment (i.e, inpt ot outpatient treatment programs)?: No Have you ever Experienced Blackouts?: No Have you ever Combined Alcohol with other Downers within the last 90 days?: No Have you ever Combined Alcohol with any other Substance of Abuse during the last 90 days?: No Positive Blood Alcohol level on Presentation? [PCS.BAL]: No Evidence of Increased Autonomic Activity (i.e. HR>120, tremor, sweating, agitation, nausea)?: No Result: 0
[2021-11-04 15:36] LABS: Troponin I < 50 ng/L (<or=60)
--- NOTE | 2021-11-04 16:12 | HPE_ITS ---
Date of service: 11/04/21 Time of Service: 16:12 Assessment and Plan Assessment and plan (1) Pure hypercholesterolemia, unspecified: Status: Acute Assessment and plan: Cont atorvastatin. (2) Type 2 diabetes mellitus without complications: Status: Acute Assessment and plan: A1c 7.4 on 10/30/20. Cont Jardiance. Diabetic diet. ACHS glucose monitoring. SS correction insulin dosing. Sensitive scale. Adjust if necessary. Check A1c. (3) Morbid obesity: Status: Chronic Assessment and plan: Contributing factor to his current condition. (4) CAD (coronary artery disease): Status: Chronic Assessment and plan: Not on ASA. Is on Warfarin (h/o pulmonary embolism). On metoprolol. (5) Personal history of pulmonary embolism: Status: Chronic Assessment and plan: Cont warfarin; hold todays dose. Daily INR. (6) Hypertension: Status: Chronic Assessment and plan: Cont metoprolol and lisinopril. Monitor. (7) Venous (peripheral) insufficiency: Status: Chronic (8) H/O bilateral hip replacements: Status: Chronic Assessment and plan: Hip and pelvis xrays on : There are bilateral hip prostheses in position.? The components appear well seated.? There is moderate heterotopic bone format ion, mostly on the left.? There is no evidence of acute fracture or dislocation. (9) Atrial fibrillation: Assessment and plan: Noted in history. Now in sinus rhythm. On warfarin. On metoprolol. (10) Bilateral leg weakness: Status: Acute Assessment and plan: At recent hospitalization at [facility] his MRI did reveal a T11 fracture, large L1-2 disc herniation, and moderate (MRI)-severe (CT) L5-S1 central stenosis.? This finding was discussed with [facility] neurosurgery who reportedly sees no emergent need to transfer or emergent evaluation by their team. He had presented then with an episode of bilateral LE weakness that he, later in the course of the hospitalization, attributed to a late in the evening dose of lasix that he felt lowered his BP. At time of the previous hospitalization d/c he was ambulatory w/o symptoms of weakness. PT/OT to evaluate. No evidence of cauda equina syndrome. No radiculopathy. Episodic orthostasis? Orthostatic BP daily. History of Present Illness History of Present Illness Chief Complaint: Low back pain and weakness of legs. Narrative: This is a 76 yo morbidly obese male with a PMH of CAD, DM2, HLD, TOM, HTN, pulmonary embolism, bilateral hip replacements, venous stasis with ulceration. ?Patient was hospitalized for similar presentation approximately 3 days prior to arrival here today.? He states he was ambulatory, but on day of this admission he went down on the toilet and was unable to stand.? Denies any chest pain or shortness of breath.? He denies any dizziness/syncope. + generalized bilateral lower extremity weakness. No upper extremity weakness. ? He did have a fall when he arrived home 2 days ago.? He states he landed on his right knee.? He states his tetanus is up-to-date.? He denies any head injury without fall.? No fever/chills, abd pain/nausea/vomitting/diarrhea. No CP/palpitations. 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 Hospitalists admitting for observation, PT/OT evaluation. Review of Systems All systems reviewed & are unremarkable except as noted in HPI and below PFSH All Active Problems Bilateral leg weakness (Acute) Lumbago (Acute) Non compliance with medical treatment (Acute) Trochanteric bursitis, left hip (Acute) H/O surgical procedure (Chronic) a. Bilateral hip replacement b. Nephrolithotomy c. Right ureteral stent placement d. Coronary artery stent placement 2006 e. Adult circumcision f. Colonoscopy 11/2013 History of revision of total replacement of left hip joint (Acute 11/01/20) Acetabular revision with head/liner exchange for fractured femoral head prosthesis. Pure hypercholesterolemia, unspecified (Acute) Cerumen impaction (Acute) Body mass index (BMI) 50.0-59.9, adult (Acute) Type 2 diabetes mellitus without complications (Acute) Neoplasm of unspecified behavior of bone, soft tissue, and skin (Acute) Nasal dryness (Acute) Acute cholecystitis (Acute 09/07/14) Morbid obesity (Chronic) CAD (coronary artery disease) (Chronic) a. coronary artery stent placement 2006 Personal history of pulmonary embolism (Chronic) Hypertension (Chronic) TOM (obstructive sleep apnea) (Chronic) Personal history of kidney stones (Chronic) a. uric acid stones Venous stasis ulcer (Chronic) Venous (peripheral) insufficiency (Chronic) H/O bilateral hip replacements (Chronic) Medical History Anticoagulant long-term use Atrial fibrillation A. On Coumadin Venous stasis ulcer of ankle limited to breakdown of skin without varicose veins Social History Smoking/Tobacco Use Status: Former Tobacco Use Smoking risk assessment performed?: Yes Drug use: Never Substance use type: does not use Do you feel safe at home: Yes Do you feel safe in your relationship?: Yes Meds Allergies and Home Medications Allergies Allergy/AdvReac Type Severity Reaction Status Date / Time metformin AdvReac DIARRHEA Verified 10/30/21 15:55 Home Medications Medication Instructions Recorded Confirmed Type atorvastatin 80 mg tablet (Lipitor) 80 mg PO HS 09/07/14 11/04/21 History furosemide 40 mg tablet 20 mg PO BID 09/07/14 11/04/21 History lisinopril 40 mg tablet 20 mg PO DAILY 09/07/14 11/04/21 History metoprolol succinate 100 mg 100 mg PO DAILY 09/07/14 11/04/21 History tablet,extended release 24 hr nitroglycerin 0.4 mg sublingual 0.4 mg SUBLINGUAL PRN PRN 09/07/14 11/04/21 History tablet warfarin 5 mg tablet (Coumadin) 5 mg PO QMWF 08/29/15 11/04/21 History allopurinol 300 mg tablet 300 mg PO DAILY 12/30/16 11/04/21 History potassium citrate 10 mEq (1,080 20 meq PO BID 12/30/16 11/04/21 History mg) tablet,extended release empagliflozin 25 mg tablet 25 mg PO DAILY AM 10/30/21 11/04/21 History (Jardiance) warfarin 4 mg tablet 4 mg PO QTUTHSASU 10/30/21 11/04/21 History Exam Const General: cooperative and no acute distress Nutritional Appearance: obese Orientation: alert and oriented x3 Neck Neck: full ROM Resp Effort & Inspection: normal respiratory effort Auscultation: clear to auscultation bilaterally Cardio Rate: regular rate Rhythm: regular rhythm Heart Sounds: S1 normal and S2 normal GI Inspection: large pannus Palpation: soft and nontender Auscultation: normal bowel sounds Skin General skin exam: no rashes or lesions noted Neuro General: no focal motor deficits Cranial Nerves: facial strength normal Cognition: normal cognition Speech: speech normal Extrem General: no calf tenderness and edema Laterality: bilateral Elbow/forearm/wrist images: 1. small abrasion and ecchymosis. No drainage. Results Labs Result diagrams: 11/04/21 14:30 11/05/21 07:15 Labs: Laboratory Results - last 24 hr 11/04/21 11/04/21 11/04/21 14:11 14:30 14:30 WBC 9.69 RBC 5.81 H Hgb 17.4 Hct 53.7 H MCV 92.4 MCH 29.9 MCHC 32.4 RDW 16.4 H Plt Count 278 MPV 9.3 Immature Gran % 0.7 Neutrophils % 79.8 Lymphocytes % 11.0 Monocytes % 7.1 Eosinophils % 0.8 Basophils % 0.6 Nucleated RBC % 0 Absolute Neutrophils 7.72 H Absolute Lymphocytes 1.07 L Absolute Monocytes 0.69 Absolute Eosinophils 0.08 Absolute Basophils 0.06 PT INR Sodium 138 Potassium 4.1 Chloride 104 Carbon Dioxide 25.7 Anion Gap 8.3 BUN 31 H Creatinine 1.2 Estimated GFR/1.73 m2 59.18 Glucose 143 H Calcium 9.3 Total Bilirubin 0.8 AST 47 H ALT 83 H Alkaline Phosphatase 121 H Troponin I Total Protein 7.4 Albumin 3.3 L Urine Color Yellow Urine Clarity Clear Urine pH 5.5 Ur Specific [place] 1.015 Urine Protein Negative Urine Ketones Negative Urine Blood Negative Urine Nitrite Negative Urine Bilirubin Negative Urine Urobilinogen 0.2 Ur Leukocyte Esterase Negative Urine Glucose >=1000 H 11/04/21 11/04/21 14:30 14:30 WBC RBC Hgb Hct MCV MCH MCHC RDW Plt Count MPV Immature Gran % Neutrophils % Lymphocytes % Monocytes % Eosinophils % Basophils % Nucleated RBC % Absolute Neutrophils Absolute Lymphocytes Absolute Monocytes Absolute Eosinophils Absolute Basophils PT 32.3 H INR 3.3 H Sodium Potassium Chloride Carbon Dioxide Anion Gap BUN Creatinine Estimated GFR/1.73 m2 Glucose Calcium Total Bilirubin AST ALT Alkaline Phosphatase Troponin I < 50 Total Protein Albumin Urine Color Urine Clarity Urine pH Ur Specific [place] Urine Protein Urine Ketones Urine Blood Urine Nitrite Urine Bilirubin Urine Urobilinogen Ur Leukocyte Esterase Urine Glucose Last Vital Signs Temp 36.5 C 11/04/21 13:59 Pulse 79 11/04/21 15:16 Resp 17 11/04/21 13:59 BP 143/84 H 11/04/21 15:16 Pulse Ox 98 11/04/21 15:16 PAWSS Have you Been Recently Intoxicated or Drunk Within the Last 30 days?: No Have you Ever Experienced Previous Episodes of Alcohol Withdrawal?: No Have you ever Experienced Withdrawal Seizures?: No Have you ever Experienced Delirium Tremens(DT)s?: No Have you ever undergone Alcohol Rehabilitation Treatment (i.e, inpt ot outpatient treatment programs)?: No Have you ever Experienced Blackouts?: No Have you ever Combined Alcohol with other Downers within the last 90 days?: No Have you ever Combined Alcohol with any other Substance of Abuse during the last 90 days?: No Positive Blood Alcohol level on Presentation? [PCS.BAL]: No Evidence of Increased Autonomic Activity (i.e. HR>120, tremor, sweating, agitation, nausea)?: No Result: 0
[2021-11-04 16:27] LABS: Lab Add On Test DONE
[2021-11-04 16:30] LABS: Source Nasal/Nares
--- NOTE | 2021-11-04 16:59 | DI.VRAD_ITS ---
PROCEDURE INFORMATION: Exam: XR Right Knee Exam date and time: 11/04/2021 2:47 PM Age: 76 years old Clinical indication: Other: Pain, post fall last TECHNIQUE: Imaging protocol: XR Right knee. Views: 3 views. COMPARISON: CR RIGHT KNEE 3 VIEWS 03/01/2015 2:06 PM FINDINGS: Bones/joints: There is moderately severe narrowing within the medial compartment of the right tibiofemoral joint. Hypertrophic change is seen along the medial larger than lateral tibial plateau. The right patellofemoral joint is grossly normal in appearance. No acute osseous injury or underlying osseous mass. Soft tissues: Focal region of likely soft tissue edema anterior to the right patella as seen on lateral view. IMPRESSION: 1. Focal region of likely soft tissue edema anterior to the patella. Clinical correlation recommended. 2. No acute osseous injury or underlying osseous mass. If patient's pain persist, recommend follow-up imaging in 7 days to evaluate for possible occult fracture. 3. Mild to moderate degenerative change to the right tibiofemoral joint. Dictated and Authenticated by: Sloan Solares MD. Ordering:BREANNA Causey MD
[2021-11-04] MEDS: Furosemide 40 MG TAB 20 MG PO (19:48)
[2021-11-04] MEDS: Potassium Chloride 20 MEQ TABCR PO (21:36)
[2021-11-04] MEDS: Atorvastatin 40 MG TAB 80 MG PO (21:36)
[2021-11-05] MEDS: Acetaminophen 325 MG TAB PO ×2 (03:40→15:34)
[2021-11-05] MEDS: Empaglifozin 25 MG TAB PO (06:01)
[2021-11-05] MEDS: Lisinopril 20 MG TAB PO (08:01)
[2021-11-05] MEDS: Allopurinol 300 MG TAB PO (08:01)
[2021-11-05] MEDS: Metoprolol CR 100 MG TABCR PO (08:02)
[2021-11-05] MEDS: Furosemide 40 MG TAB 20 MG PO (08:02)
[2021-11-05] MEDS: Potassium Chloride 20 MEQ TABCR PO ×2 (08:02→21:13)
--- NOTE | 2021-11-05 08:10 | OT.INIE ---
Occupational Therapy Notes Inpatient Occupational Therapy Evaluation Date: 11/05/21 Referring Doctor:Dr. Benitez OT Orders: Non Urgent Precautions: Fall, standard, Full PATIENT PROFILE/ADMITTING DIAGNOSIS: Pt is a 76 year old male who was admitted through the ED after a recent discharge from [facility], he is admitted for the following dx of (B) leg weakness, Lumbago, non compliance with medical tx, trochanteric bursitis. Past Medical History: All Active Problems? Bilateral leg weakness (Acute) Lumbago (Acute) Non compliance with medical treatment (Acute) Trochanteric bursitis, left hip (Acute) H/O surgical procedure (Chronic) a.? Bilateral hip replacement b.? Nephrolithotomy c.? Right ureteral stent placement d.? Coronary artery stent placement 2006 e.? Adult circumcision f.? Colonoscopy 11/2013History of revision of total replacement of left hip joint (Acute 11/01/20) Acetabular revision with head/liner exchange for fractured femoral head prosthesis.Pure hypercholesterolemia, unspecified (Acute) Cerumen impaction (Acute) Body mass index (BMI) 50.0-59.9, adult (Acute) Type 2 diabetes mellitus without complications (Acute) Neoplasm of unspecified behavior of bone, soft tissue, and skin (Acute) Nasal dryness (Acute) Acute cholecystitis (Acute 09/07/14) Morbid obesity (Chronic) CAD (coronary artery disease) (Chronic) a.? coronary artery stent placement 2006Personal history of pulmonary embolism (Chronic) Hypertension (Chronic) TOM (obstructive sleep apnea) (Chronic) Personal history of kidney stones (Chronic) a.? uric acid stonesVenous stasis ulcer (Chronic) Venous (peripheral) insufficiency (Chronic) H/O bilateral hip replacements (Chronic) Medical History? Anticoagulant long-term use Atrial fibrillation A.? On CoumadinVenous stasis ulcer of ankle limited to breakdown of skin without varicose veins Social History/Home Situation: ?Lives with in a private home with 4 steps to enter.? His bedroom is on the second floor of the house with 15 steps to enter with rails on both sides. He states that since he has been home he has been performing sponge baths only and notes that his (A) with meals, he reports that he is max (A) for (B) socks at baseline and that he can do his dressing and bathing with (A). He notes that if he can't do it his will help him. He sleeps in a bed. He was (I) with his toileting routine. Equipment owned/DME: dressing stick, sock aid, shower seat, grab bars SUBJECTIVE: Pt states that he is nervous to perform functional mobility. He states that he was recently discharged from [facility] and was at home. He notes that when he went to use the bathroom he found that he was unable to stand back up. He reports that he called the ambulance who then came to bring him to [facility]. He states that he thinks that he needs to go to a SNF as he cannot go home with his current level of function. OBJECTIVE: General Observation: Pleasant, IV in (R) UE not connected Mental Status: A&Ox3 Pain: no c/o pain ROM: RUE AROM WFL L UE AROM WFL STRENGTH: RUE 4/5 throughout LUE 4/5 throughout FUNCTIONAL MOBILITY/ADLS: Transfers with FWW Supine-sit Mod (A) and mod vc Sit-Stand CGAx2 Stand-sit CGAx2 Bed-Chair CGA x2 DRESSING sitting on side of the bed Dressing LE max (A) don and doffing (B) socks EATING sitting in chair (I) with chewing, swallowing and opening containers, (I) food to mouth and initiation of tasks. BALANCE: Static sitting with hand support to bed at all times, good Dynamic Sitting Good Static Standing Good Dynamic Standing Good SPECIAL TESTS: Daily Activity Limitations Standardized Measure [facility] AM -PAC ?6 clicks? Daily Activity Inpatient Short Form: Raw score: 21 Standardized score: 44.27 CMS score: 32.79% INFORMED CONSENT/EDUCATION: Pt instructed in purpose of OT Consult and plan of care. ASSESSMENT: Patient is a 76-year-old male referred to occupational therapy services with diagnosis of (B) leg weakness, Lumbago, non compliance with medical tx, trochanteric bursitis. Patient presents with clinical signs and symptoms consistent with dx, as demonstrated by the following impairment level findings/functional limitations: Failure to thrive in home setting within recent discharged date, weakness in (B) LE, decreased functional activity tolerance, decrease functional mobility required for ADL performance. AMPAC score 21 Patient is assessed as a Low 07048 complexity based on the following: History: see above Examination: see functional limitations as noted above Presentation: evolving Decision Making: AMPAC score 21 GOALS Goals x1 week 1. Grooming- sitting in chair (I) brushing teeth 2. Dressing- (I) UE, Mod (A) LE 3. Bathing- (I) UE, Mod (A) LE 4. Toileting- on toilet (I) PLAN OF CARE/TREATMENT PLAN: 1x/day, 3-5 days/ week x 1week Initiate Occupational Therapy Services for bathing, dressing, grooming, toileting, eating, transfer training. DISCHARGE RECOMMENDATIONS Based on pts current level of function and his high risk for re-admission, OT recommends SNF for continued strengthening and (I) in his ADL/IADL routines. TREATMENT TIME/MINUTES/CODES [id number], [id number], 25 minutes (07:45) Khushbu Chong OTR/L [facility]
[2021-11-05 08:14] LABS: ALT 77 U/L (16-63); AST 42 U/L (15-37); Albumin 3.2 g/dL (3.4-5.0); Alkaline Phosphatase 109 U/L (46-116); Anion Gap 9.4 mmol/L (3-11); BUN 22 mg/dL (7-18); Bilirubin, Total 1.1 mg/dL (0.2-1.0); CO2 25.6 mmol/L (21.0-32.0); CREATININE 0.9 mg/dL (0.70-1.30); Calcium 9.2 mg/dL (8.5-10.1); Chloride 106 mmol/L (98-107); Glucose 134 mg/dL (74-106); Potassium 3.8 mmol/L (3.5-5.1); Sodium 141 mmol/L (136-145); Uric Acid 5.5 mg/dL (3.5-7.2)
[2021-11-05 08:17] LABS: INR 2.8 (0.9-1.1); Prothrombin Time 27.3 sec (9.3-11.0)
[2021-11-05 08:52] VITALS: BP 132/79; PULSE 68; RESP 18; TEMP 36.4; O2SAT 98
[2021-11-05 09:15] VITALS: BP 123/80; BP 126/70; PULSE 100; PULSE 79
--- NOTE | 2021-11-05 09:32 | PDOC.CMIN ---
- If Service Date Differs Date of service: 11/05/21 Time of Service: 09:33 Care Management Initial Assess REASON FOR HOSPITALIZATION:: Bilateral lower extremity weakness PAST MEDICAL HISTORY/PAST SURGICAL HISTORY:: Anticoagulant long-term use. Atrial fibrillation. A. On Coumadin. Venous stasis ulcer of ankle limited to breakdown of skin without varicose veins PREVIOUS FUNCTIONAL STATUS/SOCIAL/FAMILY SUPPORTS:: Jimbo lives in [place] [facility] with his , Leah. 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 His reports that Jimbo has lots of friends and he occupies his days talking with his friends on the phone, reading, cooking, and playing games on the computer. Jimbo drives and is independent with his ADLs at baseline. CURRENT FUNCTIONAL STATUS:: Jimbo was sitting in his recliner, legs elevated. He shared concerns with CM re: not feeling safe at home and requested SNF referral to [facility]. CM reviewed treatment planning process, coordinated care. CM talked to Madison at [facility]& who reported his insurance would require a prior auth, but not a three night qualifying stay. CM will await additional updates. Referrals faxed to [facility] and [facility]. ADVANCE DIRECTIVES:: None on file. Has patient been provided with info about the portal/API?: Yes Did the patient sign up for the portal?: Yes (Previously) CODE STATUS:: Full Code INSURANCE COVERAGE / FINANCIAL ISSUES:: [facility] Ad[employer] CURRENT HOME/COMMUNITY SERVICES/EQUIPMENT:: Jimbo has a FWW, cane, toilet seat riser, and Bipap machine. PRIMARY CARE PHYSICIAN:: Nick Nettles, [facility] [place] POTENTIAL DISCHARGE NEEDS:: PT evaluation, SNF coordination. PATIENT/FAMILY EDUCATION NEEDS:: Review discharge instructions, discuss Ask Me Three. ANTICIPATED BARRIERS TO DISCHARGE:: None identified at this time. TRANSPORTATION:: Dependent on disposition. PLAN:: Jimbo continues to be closely monitored and treated, anticipate SNF placement upon discharge-CM continues to coordinate.
[2021-11-05] MEDS: Normal Saline Flush 10 ML SYR IVP ×2 (09:47→21:23)
--- NOTE | 2021-11-05 11:03 | W.INDIABCONS ---
Date of service: 11/05/21 Time of Service: 11:03 Diabetes Inpatient Consult Reason for Visit: diabetes, weight management DESCRIPTION/ASSESSMENT: Met with Jaime today. Admitted yesterday with leg weakness with PMH: morbid obesity, Dm2, CAD, TOM, HLD, HTN. Has lost 87 lbs in last 2 years by reduced portions. Reports that he used to love food but no longer gets as much enjoyment of meal. Is focused on losing more weight. Most recent A1C (11/04/21) 7.0% indicates excellent glycemic control. Home Dm meds: 25 mg jardiance. INTERVENTION: Jimbo has a good working knowledge about diet and diabetes and has done a great job with glycemic control and weight management. Encouraged continued weight reduction. Will provide double protein at meals as with large size, has higher protein needs to maintain his lean body mass. PLAN: Diabetic Diet with double protein at meals. Time Spent in Nutritional Counseling and Treatment: 10
[2021-11-05 11:12] LABS: COVID-19 PCR Negative (Negative)
--- NOTE | 2021-11-05 11:52 | PT.INIE ---
Date of service: 11/05/21 Time of Service: 11:52 PT Notes Visit Reasons: Bilateral Lower Extremity Weakness Physical Therapy Inpatient Initial Evaluation Date: 11/05/2021 Referring Doctor: Gerardo Benitez MD PT Orders: PT CONSULT: Eval/treat Precautions: Repeated falls. Standard. Activity as tolerated. Patient Profile/Admitting Diagnosis: Jimbo is a 76-year-old male on chronic anticoagulation who presented to the ED on 11/04/2021 due to continued bilateral low lower extremity weakness which resulted to fall x 2 since discharge home from this hospital on 10/31/2021. Patient is diagnosed with repeated falls, bilateral lower extremity weakness, poorly controlled diabetes mellitus, T11 compression fracture, L1-L2 disc herniation, L5-S1 central stenosis. PMHX: All Active Problems? Bilateral leg weakness (Acute) Lumbago (Acute) Non compliance with medical treatment (Acute) Venous stasis ulcer of ankle limited to breakdown of skin without varicose veins (Acute) Trochanteric bursitis, left hip (Acute) H/O surgical procedure (Chronic) a.? Bilateral hip replacement b.? Nephrolithotomy c.? Right ureteral stent placement d.? Coronary artery stent placement 2006 e.? Adult circumcision f.? Colonoscopy 11/2013History of revision of total replacement of left hip joint (Acute 11/01/20) Acetabular revision with head/liner exchange for fractured femoral head prosthesis.Pure hypercholesterolemia, unspecified (Acute) Cerumen impaction (Acute) Body mass index (BMI) 50.0-59.9, adult (Acute) Type 2 diabetes mellitus without complications (Acute) Neoplasm of unspecified behavior of bone, soft tissue, and skin (Acute) Nasal dryness (Acute) Acute cholecystitis (Acute 09/07/14) Morbid obesity (Chronic) CAD (coronary artery disease) (Chronic) a.? coronary artery stent placement 2007Atrial fibrillation (Chronic) A.? On CoumadinAnticoagulant long-term use (Chronic) Personal history of pulmonary embolism (Chronic) Hypertension (Chronic) TOM (obstructive sleep apnea) (Chronic) Personal history of kidney stones (Chronic) a.? uric acid stonesVenous stasis ulcer (Chronic) Venous (peripheral) insufficiency (Chronic) H/O bilateral hip replacements (Chronic) Social History/Home Situation: Lives with in a private home with 4 steps to enter with a rail on 1 side.? His bedroom is on the second floor of the house with 15 steps to enter with rails on both sides. Equipment Owned/DME: 1 bariatric front-wheeled walker and 1 regular front-wheeled walker Subjective: Agreeable to PT consult.? Reports minimal in the low back area at rest but with increased to 5-6/10 pain in the same area with ambulation.? Denies numbness and tingling in bilateral lower extremities. Indicates that that he is able to walk okay but he could not tell when both his legs will give way. States that he has fallen twice since he went home on Friday. Objective: General Observation: High BMI.? IV access in right UE. Mental Status: Alert and oriented as to person, place, time, and purpose. Able to pay attention, focus, and respond appropriately. Pain: 2-3/10 in low back: 5-6/10 pain in the same area with ambulation ROM: Right Upper Extremity: ? Shoulder Flexion WFL. Shoulder abduction WFL. Elbow flexion WFL. Wrist flexion WFL. Functional opening and closing of hand WFL. Left Upper Extremity:? Shoulder Flexion WFL. Shoulder abduction WFL. Elbow flexion WFL. Wrist flexion WFL. Functional opening and closing of hand WFL. Right Lower Extremity: Hip flexion unable to flex beyond 90 degrees in sitting position due to abdominal panniculus.? Hip abduction WFL. Knee flexion WFL. Ankle dorsiflexion to neutral only. Ankle plantarflexion WFL. Left Lower Extremity: Hip flexion unable to flex beyond 90 degrees in sitting position due to abdominal panniculus.? Hip abduction WFL. Knee flexion WFL. Ankle dorsiflexion to neutral only. Ankle plantarflexion WFL. Strength: Right Upper Extremity: Shoulder flexors 4/5. Shoulder abductors 4/5. Elbow flexors 4/5. Elbow extensors 4/5. Rv Repairer strong. Left Upper Extremity: Shoulder flexors 4/5. Shoulder abductors 4/5. Elbow flexors 4/5. Elbow extensors 4/5. Rv Repairer strong. Right Lower Extremity: Hip flexors 3-/5. Hip abductors 4-/5. Knee flexors 4-/5. Knee extensors 4-/5. Ankle dorsiflexors 3-/5. Ankle plantarflexors 4-/5. Left Lower Extremity: Hip flexors 3-/5. Hip abductors 4-/5. Knee flexors 4-/5. Knee extensors 4-/5. Ankle dorsiflexors 3-/5. Ankle plantarflexors 4-/5. Bed Mobility/Transfers: Sit to stand with standby assist using FWW Stand to sit with standby assist using FWW Bed to reclining chair with standby assist using FWW Gait: Instructed patient with level surface ambulation of 60 feet requiring standby assist with wheelchair follow. Step height decreased.? Step length decreased. No loss of balance. No path deviation. No buckling in B knees observed. Balance: Static Sitting: Normal Dynamic Sitting: Normal Static Standing: Fair Dynamic Standing: Fair Special Tests: Mobility Limitations Standardized Measure [facility] 6 clicks Basic Mobility Inpatient Short Form: Raw Score: 23 CMS Score: 11% deficit? ? ? Informed Consent/Education:? Patient was instructed in purpose of PT consult and plan of care. Agreeable to proceed with established PT POC to achieve personal goals. Assessment: Sound requires the use of a front wheel walker for all mobility ADL performance order to maximize independence and reduce fall risk.? Patient presents with clinical signs and symptoms consistent with current/admitting diagnoses that have resulted to mobility limitations, gait instability, generalized weakness, and overall ADL decline as demonstrated by the following impairment level findings: 1.? Decreased strength to B LE major muscle groups 2.? Impaired standing balance 3.? Impaired activity tolerance 4.? Chronic swelling on BLE Impairments are contributing to the following functional limitations: 1.? Difficulty with ambulation without assistive device 2.? Increased completion time for mobility ADL performance 3.? Increased risk for falls 4.? Difficulty with managing steps alone safely Patient is assessed as a [id number] moderatecomplexity based on the following: History: 76-year-old malewith past medical history as indicated above Examination: Demonstrable impairment in strength, balance, and mobility level with underlying impairments and functional limitations as exhibited above as well as deficit score of 11%? utilizing the [facility] Mobility Inpatient Short Form Presentation: Stable Decision Makin moderatecomplexity Goals: Goals X1 week 1. Supine-Sit independent 2. Sit-Supine independent 3. Sit-Stand independent 4. Stand-Sit independent with FWW 5. Bed-Chair independent with FWW 6. Chair-Bed independent with FWW 7. Independent gait on level surface with use of FWW for at least 100 feet without report of pain nor dyspnea 8. Independent stair negotiation while holding onto B rails for at least 15 steps without report of pain nor dyspnea 9. Good static and dynamic standing balance/tolerance Plan of Care/Treatment Plan: 1-2x/day, 7 days/week x 1 week. Plan of care has been reviewed with the CONCRETE LAYER providing the service under Physical Therapy direction. Initiate Physical Therapy intervention for pain management as needed, strengthening, bed mobility, transfers, gait, stairs, balance training, and use of assistive device. DISCHARGE RECOMMENDATIONS: [] ? Home with no services [] [] ? Home with services [specify] [] ? Home with outpatient PT [] [X] ? SNF for continued rehabilitation. Discharge when cleared medically by hospitalist. Patient will benefit from short-term fpc facility placement for continued physical therapy services in order to progress mobility level, strength, and balance in preparation for a safe discharge to home. [] ? Police Records Clerk Care [] [] ? SNF versus LTC based on ability to participate and progress [] TREATMENT CODE/TIME: 01203 x 20 minutes, 23298 x 18 minutes beginning at 11:52 AM and 12:45 PM. Thank you for the opportunity to participate in the care of this patient. Estrellita Alcazar PT, DPT, CLT [facility] [place], [place]
--- NOTE | 2021-11-05 14:00 | PGE_ITS ---
Date of Service Date of service: 11/05/21 Time of Service: 14:01 Assessment and Plan Assessment and plan (1) Pure hypercholesterolemia, unspecified: Status: Acute Assessment and plan: Cont atorvastatin. (2) Type 2 diabetes mellitus without complications: Status: Acute Assessment and plan: A1c 7.4 on 10/30/20. Currently with adequate control Cont Jardiance. Diabetic diet. ACHS glucose monitoring. SS correction insulin dosing. Sensitive scale. Adjust if necessary. Check A1c. (3) Morbid obesity: Status: Chronic Assessment and plan: Contributing factor to his current condition. (4) CAD (coronary artery disease): Status: Chronic Assessment and plan: Not on ASA. Is on Warfarin (h/o pulmonary embolism). On metoprolol. (5) Personal history of pulmonary embolism: Status: Chronic Assessment and plan: Cont warfarin; hold todays dose. Daily INR. (6) Hypertension: Status: Chronic Assessment and plan: Cont metoprolol and lisinopril. Monitor. (7) Venous (peripheral) insufficiency: Status: Chronic Assessment and plan: 1-2 + edema. Elevate legs when at rest. Wearing STERLING hose routinely when home is not an option. (8) H/O bilateral hip replacements: Status: Chronic Assessment and plan: Hip and pelvis xrays on : There are bilateral hip prostheses in position.? The components appear well seated.? There is moderate heterotopic bone formation, mostly on the left.? There is no evidence of acute fracture or dislocation. (9) Atrial fibrillation: Assessment and plan: Noted in history. Now in sinus rhythm. On warfarin. On metoprolol. (10) Bilateral leg weakness: Status: Acute Assessment and plan: At recent hospitalization at [facility] his MRI did reveal a T11 fracture, large L1-2 disc herniation, and moderate (MRI)-severe (CT) L5-S1 central stenosis.? This finding was discussed with [facility] neurosurgery who reportedly sees no emergent need to transfer or emergent evaluation by their team. He had presented then with an episode of bilateral LE weakness that he, later in the course of the hospitalization, attributed to a late in the evening dose of lasix that he felt lowered his BP. At time of the previous hospitalization d/c he was ambulatory w/o symptoms of weakness. PT/OT to evaluate. No evidence of cauda equina syndrome. No radiculopathy. Episodic orthostasis? Orthostatic BP daily. (11) Discharge planning issues: Status: Acute Assessment and plan: [facility] has sent a prior authorization to his Medicare supplemental insurance plan. He would certainly benefit from rehab efforts. He should use his walker routinely when at home for safety reasons in event his legs become weak again intermittently. Subjective Subjective Patient reports: no new complaints and afebrile; denies shortness of breath Interval history since last seen: Ambulated in room and hallway. Able to get out of bed w/o assistance. Normal orthostatic BP reading. Exam Const General: cooperative and no acute distress Nutritional Appearance: obese Orientation: alert and oriented x3 Neck Neck: full ROM Resp Effort & Inspection: normal respiratory effort Auscultation: clear to auscultation bilaterally Cardio Rate: regular rate Rhythm: regular rhythm Heart Sounds: S1 normal and S2 normal GI Inspection: large pannus Palpation: soft and nontender Auscultation: normal bowel sounds Skin General skin exam: no rashes or lesions noted Neuro General: no focal motor deficits Cranial Nerves: facial strength normal Cognition: normal cognition Speech: speech normal Extrem General: no calf tenderness and edema Laterality: bilateral Objective Last Vital Signs Temp 36.4 C L 11/05/21 08:52 Pulse 79 11/05/21 09:15 Resp 18 11/05/21 08:52 BP 123/80 11/05/21 09:15 Pulse Ox 98 11/05/21 08:52 Laboratory Results - last 24 hr 11/04/21 11/04/21 11/04/21 14:11 14:30 14:30 WBC 9.69 RBC 5.81 H Hgb 17.4 Hct 53.7 H MCV 92.4 MCH 29.9 MCHC 32.4 RDW 16.4 H Plt Count 278 MPV 9.3 Immature Gran % 0.7 Neutrophils % 79.8 Lymphocytes % 11.0 Monocytes % 7.1 Eosinophils % 0.8 Basophils % 0.6 Nucleated RBC % 0 Absolute Neutrophils 7.72 H Absolute Lymphocytes 1.07 L Absolute Monocytes 0.69 Absolute Eosinophils 0.08 Absolute Basophils 0.06 PT INR Sodium 138 Potassium 4.1 Chloride 104 Carbon Dioxide 25.7 Anion Gap 8.3 BUN 31 H Creatinine 1.2 Estimated GFR/1.73 m2 59.18 Glucose 143 H Hemoglobin A1c Uric Acid Calcium 9.3 Total Bilirubin 0.8 AST 47 H ALT 83 H Alkaline Phosphatase 121 H Troponin I Total Protein 7.4 Albumin 3.3 L Urine Color Yellow Urine Clarity Clear Urine pH 5.5 Ur Specific [place] 1.015 Urine Protein Negative Urine Ketones Negative Urine Blood Negative Urine Nitrite Negative Urine Bilirubin Negative Urine Urobilinogen 0.2 Ur Leukocyte Esterase Negative Urine Glucose >=1000 H COVID-19 Source SARS-CoV-2 (PCR) Add-On Test Request 11/04/21 11/04/21 11/04/21 14:30 14:30 14:30 WBC RBC Hgb Hct MCV MCH MCHC RDW Plt Count MPV Immature Gran % Neutrophils % Lymphocytes % Monocytes % Eosinophils % Basophils % Nucleated RBC % Absolute Neutrophils Absolute Lymphocytes Absolute Monocytes Absolute Eosinophils Absolute Basophils PT 32.3 H INR 3.3 H Sodium Potassium Chloride Carbon Dioxide Anion Gap BUN Creatinine Estimated GFR/1.73 m2 Glucose Hemoglobin A1c 7.0 H Uric Acid Calcium Total Bilirubin AST ALT Alkaline Phosphatase Troponin I < 50 Total Protein Albumin Urine Color Urine Clarity Urine pH Ur Specific [place] Urine Protein Urine Ketones Urine Blood Urine Nitrite Urine Bilirubin Urine Urobilinogen Ur Leukocyte Esterase Urine Glucose COVID-19 Source SARS-CoV-2 (PCR) Add-On Test Request 11/04/21 11/04/21 11/05/21 16:20 Unknown 07:15 WBC RBC Hgb Hct MCV MCH MCHC RDW Plt Count MPV Immature Gran % Neutrophils % Lymphocytes % Monocytes % Eosinophils % Basophils % Nucleated RBC % Absolute Neutrophils Absolute Lymphocytes Absolute Monocytes Absolute Eosinophils Absolute Basophils PT INR Sodium 141 Potassium 3.8 Chloride 106 Carbon Dioxide 25.6 Anion Gap 9.4 BUN 22 H D Creatinine 0.9 Estimated GFR/1.73 m2 >= 60.00 Glucose 134 H Hemoglobin A1c Uric Acid 5.5 Calcium 9.2 Total Bilirubin 1.1 H AST 42 H ALT 77 H Alkaline Phosphatase 109 Troponin I Total Protein 7.0 Albumin 3.2 L Urine Color Urine Clarity Urine pH Ur Specific [place] Urine Protein Urine Ketones Urine Blood Urine Nitrite Urine Bilirubin Urine Urobilinogen Ur Leukocyte Esterase Urine Glucose COVID-19 Source Nasal/Nares SARS-CoV-2 (PCR) Negative Add-On Test Request DONE 11/05/21 07:15 WBC RBC Hgb Hct MCV MCH MCHC RDW Plt Count MPV Immature Gran % Neutrophils % Lymphocytes % Monocytes % Eosinophils % Basophils % Nucleated RBC % Absolute Neutrophils Absolute Lymphocytes Absolute Monocytes Absolute Eosinophils Absolute Basophils PT 27.3 H INR 2.8 H Sodium Potassium Chloride Carbon Dioxide Anion Gap BUN Creatinine Estimated GFR/1.73 m2 Glucose Hemoglobin A1c Uric Acid Calcium Total Bilirubin AST ALT Alkaline Phosphatase Troponin I Total Protein Albumin Urine Color Urine Clarity Urine pH Ur Specific [place] Urine Protein Urine Ketones Urine Blood Urine Nitrite Urine Bilirubin Urine Urobilinogen Ur Leukocyte Esterase Urine Glucose COVID-19 Source SARS-CoV-2 (PCR) Add-On Test Request PAWSS Have you Been Recently Intoxicated or Drunk Within the Last 30 days?: No Have you Ever Experienced Previous Episodes of Alcohol Withdrawal?: No Have you ever Experienced Withdrawal Seizures?: No Have you ever Experienced Delirium Tremens(DT)s?: No Have you ever undergone Alcohol Rehabilitation Treatment (i.e, inpt ot outpatient treatment programs)?: No Have you ever Experienced Blackouts?: No Have you ever Combined Alcohol with other Downers within the last 90 days?: No Have you ever Combined Alcohol with any other Substance of Abuse during the last 90 days?: No Positive Blood Alcohol level on Presentation? [PCS.BAL]: No Evidence of Increased Autonomic Activity (i.e. HR>120, tremor, sweating, agitation, nausea)?: No Result: 0
[2021-11-05 15:03] VITALS: BP 140/84; PULSE 74; RESP 17; TEMP 36.9; O2SAT 96
[2021-11-05] MEDS: Furosemide 20 MG TAB PO (15:17)
--- NOTE | 2021-11-05 15:27 | PTTR_ITS ---
Date of service: 11/05/21 Time of Service: 13:40 PT Notes Visit Reasons: Bilateral Lower Extremity Weakness Inpatient Physical Therapy Treatment Note [facility] Date: 11/05/2021 PRECAUTIONS: High fall risk SUBJECTIVE: Stated he is eager to do leg exercises. OBJECTIVE: PAIN: Discussed knee pain and back pain, but not really bothering him during s ession today. Up in chair when I arrived and patient had walker earlier with supervising PT. Focused on chair exercises for LEs only. THEREX: See flow sheet for details. Able to perform AP, QS, GS, LAQs, seated hip flexion, seated hip abd/ adduction and hip IR/ER. Able to perform each of these exercises for 1-2 sets of 10 reps. ASSESSMENT: Tolerated session well, with good effort displayed. PLAN: Continue with current plan of care. Focus on strengthening of bilateral LEs for improved ADL mobility. TREATMENT CODE/TIME: 93349, 1:40 pm to 1:55 pm (15')
[2021-11-05 19:31] VITALS: BP 142/82; PULSE 75; RESP 17; TEMP 36.8; O2SAT 98
--- NOTE | 2021-11-05 20:10 | INDS_ITS ---
Date of service: 11/05/21 PT Notes Visit Reasons: Bilateral Lower Extremity Weakness Physical Therapy Inpatient Discharge Summary Date: 11/05/2021 Dates of service: 11/05/2021 only This is a clinical summary of care provided for the duration of dates listed above. No charge was made in the completion of this documentation. Referring Doctor: Gerardo Benitez MD PT Orders: PT CONSULT: Eval/treat Precautions: Repeated falls. Standard. Activity as tolerated. Patient Profile/Admitting Diagnosis: Jimbo is a 76-year-old male on chronic anticoagulation who presented to the ED on 11/04/2021 due to continued bilateral low lower extremity weakness which resulted to fall x 2 since discharge home from this hospital on 10/31/2021.? Patient is diagnosed with repeated falls, bilateral lower extremity weakness, poorly controlled diabetes mellitus, T11 compression fracture, L1-L2 disc herniation, L5-S1 central stenosis. PMHX: All Active Problems? Bilateral leg weakness (Acute) Lumbago (Acute) Non compliance with medical treatment (Acute) Venous stasis ulcer of ankle limited to breakdown of skin without varicose veins (Acute) Trochanteric bursitis, left hip (Acute) H/O surgical procedure (Chronic) a.? Bilateral hip replacement b.? Nephrolithotomy c.? Right ureteral stent placement d.? Coronary artery stent placement 2006 e.? Adult circumcision f.? Colonoscopy 11/2013History of revision of total replacement of left hip joint (Acute 11/01/20) Acetabular revision with head/liner exchange for fractured femoral head prosthes is.Pure hypercholesterolemia, unspecified (Acute) Cerumen impaction (Acute) Body mass index (BMI) 50.0-59.9, adult (Acute) Type 2 diabetes mellitus without complications (Acute) Neoplasm of unspecified behavior of bone, soft tissue, and skin (Acute) Nasal dryness (Acute) Acute cholecystitis (Acute 09/07/14) Morbid obesity (Chronic) CAD (coronary artery disease) (Chronic) a.? coronary artery stent placement 2007Atrial fibrillation (Chronic) A.? On CoumadinAnticoagulant long-term use (Chronic) Personal history of pulmonary embolism (Chronic) Hypertension (Chronic) TOM (obstructive sleep apnea) (Chronic) Personal history of kidney stones (Chronic) a.? uric acid stonesVenous stasis ulcer (Chronic) Venous (peripheral) insufficiency (Chronic) H/O bilateral hip replacements (Chronic) Social History/Home Situation: Lives with in a private home with 4 steps to enter with a rail on 1 side.? His bedroom is on the second floor of the house with 15 steps to enter with rails on both sides. Equipment Owned/DME: 1 bariatric front-wheeled walker and 1 regular front- wheeled walker Subjective: NT. See most recent CATER[employer] CONVENTION SERVICES MANAGER notes. Objective: General Observation: NT. See most recent CATERING CONVENTION SERVICES MANAGER notes. Mental Status: NT. See most recent CATERING CONVENTION SERVICES MANAGER notes. Pain: NT. See most recent CATERING CONVENTION SERVICES MANAGER notes. ROM: Right Upper Extremity: ? Shoulder Flexion WFL. Shoulder abduction WFL. Elbow flexion WFL. Wrist flexion WFL. Functional opening and closing of hand WFL. Left Upper Extremity:? Shoulder Flexion WFL. Shoulder abduction WFL. Elbow flexion WFL. Wrist flexion WFL. Functional opening and closing of hand WFL. Right Lower Extremity: Hip flexion unable to flex beyond 90 degrees in sitting position due to abdominal panniculus.? Hip abduction WFL. Knee flexion WFL. Ankle dorsiflexion to neutral only. Ankle plantarflexion WFL. Left Lower Extremity: Hip flexion unable to flex beyond 90 degrees in sitting position due to abdominal panniculus.? Hip abduction WFL. Knee flexion WFL. Ankle dorsiflexion to neutral only. Ankle plantarflexion WFL. Strength: Right Upper Extremity: Shoulder flexors 4/5. Shoulder abductors 4/5. Elbow flexors 4/5. Elbow extensors 4/5. Java J2Ee Software Engineer strong. Left Upper Extremity: Shoulder flexors 4/5. Shoulder abductors 4/5. Elbow flexors 4/5. Elbow extensors 4/5. Java J2Ee Software Engineer strong. Right Lower Extremity: Hip flexors 3-/5. Hip abductors 4-/5. Knee flexors 4-/5. Knee extensors 4-/5. Ankle dorsiflexors 3-/5. Ankle plantarflexors 4-/5. Left Lower Extremity: Hip flexors 3-/5. Hip abductors 4-/5. Knee flexors 4-/5. Knee extensors 4-/5. Ankle dorsiflexors 3-/5. Ankle plantarflexors 4-/5. Bed Mobility/Transfers: Sit to stand with standby assist using FWW Stand to sit with standby assist using FWW Bed to reclining chair with standby assist using FWW Gait: Instructed patient with level surface ambulation of 60 feet requiring standby assist with wheelchair follow. Step height decreased.? Step length decreased.? No loss of balance.? No path deviation.? No buckling in B knees observed. Balance: Static Sitting: Normal Dynamic Sitting: Normal Static Standing: Fair Dynamic Standing: Fair Assessment: Jimbo requires the use of a front wheel walker for all mobility ADL performance order to maximize independence and reduce fall risk.? Patient presents with clinical signs and symptoms consistent with current/admitting diagnoses that have resulted to mobility limitations, gait instability, generalized weakness, and overall ADL decline as demonstrated by the following impairment level findings: 1.? Decreased strength to B LE major muscle groups 2.? Impaired standing balance 3.? Impaired activity tolerance 4.? Chronic swelling on BLE Impairments are contributing to the following functional limitations: 1.? Difficulty with ambulation without assistive device 2.? Increased completion time for mobility ADL performance 3.? Increased risk for falls 4.? Difficulty with managing steps alone safely Goals: Goals X1 week 1. Supine-Sit independent NOT MET 2. Sit-Supine independent NOT MET 3. Sit-Stand independent NOT MET 4. Stand-Sit independent with FWW NOT MET 5. Bed-Chair independent with FWW NOT MET 6. Chair-Bed independent with FWW NOT MET 7. Independent gait on level surface with use of FWW for at least 100 feet without report of pain nor dyspnea NOT MET 8. Independent stair negotiation while holding onto B rails for at least 15 steps without report of pain nor dyspnea NOT MET 9. Good static and dynamic standing balance/tolerance DISCHARGE RECOMMENDATIONS: [] ? Home with no services [] [] ? Home with services [specify] [] ? Home with outpatient PT [] [X] ? SNF for continued rehabilitation.? Discharge when cleared medically by hospitalist.? Patient will benefit from short-term long term facility placement for continued? physical therapy services in order to progress mobility level, strength, and balance in preparation for a safe discharge to home.? [] ? Residential Care [] [] ? SNF versus LTC based on ability to participate and progress [] TREATMENT CODE/TIME: IA Thank you for the opportunity to participate in the care of this patient. Estrellita Alcazar PT, DPT, CLT [facility] [place], [place]
[2021-11-05] MEDS: Atorvastatin 40 MG TAB 80 MG PO (21:13)
[2021-11-05 23:15] VITALS: BP 145/85; PULSE 72; RESP 18; TEMP 36.5; O2SAT 99
[2021-11-06 06:41] VITALS: BP 148/81; PULSE 69; RESP 19; TEMP 36.3; O2SAT 97
[2021-11-06 07:13] LABS: Prothrombin Time 23.1 sec (9.3-11.0)
[2021-11-06 07:50] VITALS: BP 139/93; PULSE 81; RESP 19; TEMP 36; O2SAT 97
[2021-11-06 08:02] LABS: INR 2.3 (0.9-1.1)
[2021-11-06] MEDS: Empaglifozin 25 MG TAB PO (09:10)
[2021-11-06] MEDS: Furosemide 20 MG TAB PO (09:10)
[2021-11-06] MEDS: Allopurinol 300 MG TAB PO (09:10)
[2021-11-06] MEDS: Potassium Chloride 20 MEQ TABCR PO (09:10)
[2021-11-06] MEDS: Lisinopril 20 MG TAB PO (09:10)
[2021-11-06] MEDS: Normal Saline Flush 10 ML SYR IVP (09:10)
[2021-11-06] MEDS: Metoprolol CR 100 MG TABCR PO (09:10)
[2021-11-06 09:44] VITALS: BP 139/93; PULSE 81; RESP 19; TEMP 36; O2SAT 97
[2021-11-06] MEDS: Acetaminophen 325 MG TAB PO (10:09)
--- NOTE | 2021-11-06 11:43 | DSE_ITS ---
Date of service: 11/06/21 Time of Service: 11:43 DS: Diagnosis Discharge Diagnosis (1) Pure hypercholesterolemia, unspecified: Status: Acute (2) Type 2 diabetes mellitus without complications: Status: Acute (3) Morbid obesity: Status: Chronic (4) CAD (coronary artery disease): Status: Chronic (5) Personal history of pulmonary embolism: Status: Chronic (6) Hypertension: Status: Chronic (7) Venous (peripheral) insufficiency: Status: Chronic (8) H/O bilateral hip replacements: Status: Chronic (9) Atrial fibrillation: (10) Bilateral leg weakness: Status: Acute (11) Discharge planning issues: Status: Acute Discharge Plan Disposition Patient Disposition: SNF (LEVEL 1) [facility] Condition: Stable Discharge Details Reason For Visit: Bilateral Lower Extremity Weakness Admit Date/Time: 11/04/21 15:50 Admit Provider: Gerardo Benitez Attending Provider: Gerardo Benitez Primary Care Provider: Nick Nettles Hospital Course Hospital Course: This is a 76 yo morbidly obese male with a PMH of CAD, DM2, HLD, TOM, HTN, pulmonary embolism, bilateral hip replacements, venous stasis with ulceration. ?Patient was hospitalized for similar presentation approximately 3 days prior to arrival here today.? He states he was ambulatory, but on day of this admission? he went down on the toilet and was unable to stand.? Denies any chest pain or shortness of breath.? He denies any dizziness/syncope.? + generalized bilateral lower extremity weakness. No upper extremity weakness. ? He did have a fall when he arrived home 2 days ago.? He states he landed on his right knee.? He states his tetanus is up-to-date.? He denies any head injury without fall.? No fever/chills, abd pain/nausea/vomitting/diarrhea.? No CP/palpitations. He was able to finished cloth examiner the ED but not ambulate.? Hospitalists admitting for observation, PT/OT evaluation. He was evaluated by PT and made the following assessments:1.? Decreased strength to B LE major muscle groups 2.? Impaired standing balance 3.? Impaired activity tolerance 4.? Chronic swelling on BLE These impairments are contributing to the following functional limitations:1.? Difficulty with ambulation without assistive device 2.? Increased completion time for mobility ADL performance 3.? Increased risk for falls 4.? Difficulty with managing steps alone safely He was able to transfer and ambulate slowly. No further falls. [facility] efforts for strengthening and conditioning. ? Home Meds and New Rx's Prescriptions: New Acetaminophen [Tylenol] 650 mg PO Q4H PRN PRNQty: 0 0RF polyethylene glycol 3350 17 gram Powder In Packet 17 g PO DAILY PRN PRN (Reason: Constipation) Qty: 0 0RF Continued furosemide 40 MG tablet 20 mg PO BID 0RF atorvastatin [Lipitor] 80 MG tablet 80 mg PO HS 0RF metoprolol succinate 100 MG tablet extended release 24 hr 100 mg PO DAILY 0RF nitroglycerin 0.4 MG tablet, sublingual 0.4 mg Sublingual PRN PRN (Reason: Chest Pain) 0RF lisinopril 40 MG tablet 20 mg PO DAILY 0RF warfarin [Coumadin] 5 MG tablet 5 mg PO QMWF 0RF potassium citrate 10 MEQ tablet extended release 20 meq PO BID 0RF allopurinol 300 MG tablet 300 mg PO DAILY 0RF warfarin 4 mg Tablet 4 mg PO QTUTHSASU 0RF Jardiance 25 mg Tablet 25 mg PO DAILY AM 0RF Discharge Instructions Instructions: Weakness (DC) Stand Alone Forms: Nursing Discharge Form Activity:: Activity as Tolerated Equipment/Supplies:: No Equipment Needed Diet:: Diabetic diet, low Na Discharge Orders Discharge Orders: Discharge Order (Routine); Ordered 11/06/21 Ordered By: Gerardo Benitez DS: Summary Time Spent with Patient providing and/or coordinating discharge services: Greater than 30 minutes Status at Discharge Functional status at discharge: independent ambulation Overall status at discharge: patient is progressing back to baseline Mental Status: mental status grossly normal Speech and Movement: speech clear Mood: congruent mood Affect: normal affect Exam Const General: cooperative and no acute distress Nutritional Appearance: obese Orientation: alert and oriented x3 Neck Neck: full ROM Resp Effort & Inspection: normal respiratory effort Auscultation: clear to auscultation bilaterally Cardio Rate: regular rate Rhythm: regular rhythm Heart Sounds: S1 normal and S2 normal GI Inspection: large pannus Palpation: soft and nontender Auscultation: normal bowel sounds Skin General skin exam: no rashes or lesions noted Neuro General: no focal motor deficits Cranial Nerves: facial strength normal Cognition: normal cognition Speech: speech normal Extrem General: no calf tenderness and edema Laterality: bilateral Psych Mental Status: mental status grossly normal Speech and Movement: speech clear Mood: congruent mood Affect: normal affect DS: Data Vitals/I&O Vitals and I&O: Vital Signs Temperature 36.0 C L 11/06/21 09:44 Temperature Source Tympanic 11/06/21 09:44 Pulse 81 11/06/21 09:44 Pulse Rhythm Regular 11/06/21 09:44 Respiratory Rate 19 11/06/21 09:44 Respiratory Effort 11/06/21 09:44 Respiratory Depth Normal 11/06/21 09:44 Respiratory Pattern Normal 11/06/21 09:44 Blood Pressure 139/93 H 11/06/21 09:44 Blood Pressure Mean 104 11/04/21 16:49 Blood Pressure Position Supine 11/04/21 13:59 Pulse Oximetry 97 11/06/21 09:44 Oxygen Delivery Method Room Air 11/06/21 09:44 Oxygen Flow Rate 0 11/06/21 09:44 Pain Level 2 11/06/21 11:09 Comment 11/04/21 23:00 Intake & Output 11/05/21 11/05/21 11/06/21 11:59 23:59 11:59 Intake Total 360 / 360 660 / 660 Output Total 900 / 1200 300 / 1200 250 / 250 Balance -900 / -840 60 / -840 410 / 410 Intake: Oral 360 / 360 660 / 660 Output: Urine 900 / 1200 300 / 1200 250 / 250 Other: Urine Color Yellow Yellow Yellow Urine Appearance Clear Clear Clear Urine Odor None None Comment pt incontinent of urine, large amount. unmeasureable amount Stool Size Moderate Large Stool Characteristics Soft Formed Formed Brown Voiding Methods Toilet Toilet Toilet Data Completed and Pending Labs on day of discharge: Labs from last 24 hours 11/06/21 06:33 PT 23.1 H INR 2.3 H PFSH All Active Problems Discharge planning issues (Acute) Bilateral leg weakness (Acute) Lumbago (Acute) Non compliance with medical treatment (Acute) Trochanteric bursitis, left hip (Acute) H/O surgical procedure (Chronic) a. Bilateral hip replacement b. Nephrolithotomy c. Right ureteral stent placement d. Coronary artery stent placement 2006 e. Adult circumcision f. Colonoscopy 11/2013 History of revision of total replacement of left hip joint (Acute 11/01/20) Acetabular revision with head/liner exchange for fractured femoral head prosthesis. Pure hypercholesterolemia, unspecified (Acute) Cerumen impaction (Acute) Body mass index (BMI) 50.0-59.9, adult (Acute) Type 2 diabetes mellitus without complications (Acute) Neoplasm of unspecified behavior of bone, soft tissue, and skin (Acute) Nasal dryness (Acute) Acute cholecystitis (Acute 09/07/14) Morbid obesity (Chronic) CAD (coronary artery disease) (Chronic) a. coronary artery stent placement 2006 Personal history of pulmonary embolism (Chronic) Hypertension (Chronic) TOM (obstructive sleep apnea) (Chronic) Personal history of kidney stones (Chronic) a. uric acid stones Venous stasis ulcer (Chronic) Venous (peripheral) insufficiency (Chronic) H/O bilateral hip replacements (Chronic) Medical History Anticoagulant long-term use Atrial fibrillation A. On Coumadin Venous stasis ulcer of ankle limited to breakdown of skin without varicose veins Social History Smoking/Tobacco Use Status: Former Tobacco Use Smoking risk assessment performed?: Yes Drug use: Never Substance use type: does not use Do you feel safe at home: Yes Do you feel safe in your relationship?: Yes
--- NOTE | 2021-11-06 14:04 | CMDISCH_ITS ---
- If Service Date Differs Date of service: 11/06/21 Time of Service: 14:04 LACE Index Scoring Tool - Questions: Length of Stay (in days): 2 Acuity (Admit via E.D.?): Yes Comorbidities: Diabetes w/o Complication E.D. Visits: 2 - Answers: Total Score: 8 Risk of Readmission: Low Risk Care Management Discharge Reason for Hospitalization: Bilateral lower extremity weakness Discharge Plan: Jaime will discharge to [facility] for continued rehab prior to returning home. He will transport via the facility's W/C van. Patient/Family Education Needs: Review discharge instructions, discuss Ask Me Three. Services Needed at Discharge: Senior Care Facility ([facility]), Transportation (W/C Van )
--- NOTE | 2021-11-07 08:21 | OTDS_ITS ---
Occupational Therapy Notes Occupational Therapy Inpatient Discharge Summary Date: 11/07/21 Dates of Service: 11/05/21-11/07/21 Referring Doctor:Dr. Benitez OT Orders: Non Urgent Precautions: Fall, standard, Full * This document services as a summary of care, no skilled OT services were provided for this documentation* PATIENT PROFILE/ADMITTING DIAGNOSIS: Pt is a 76 year old male who was admitted through the ED after a recent discharge from [facility], he is admitted for the following dx of (B) leg weakness, Lumbago, non compliance with medical tx, tro chanteric bursitis. Past Medical History: All Active Problems? Bilateral leg weakness (Acute) Lumbago (Acute) Non compliance with medical treatment (Acute) Trochanteric bursitis, left hip (Acute) H/O surgical procedure (Chronic) a.? Bilateral hip replacement b.? Nephrolithotomy c.? Right ureteral stent placement d.? Coronary artery stent placement 2006 e.? Adult circumcision f.? Colonoscopy 11/2013History of revision of total replacement of left hip joint (Acute 11/01/20) Acetabular revision with head/liner exchange for fractured femoral head prosthesis.Pure hypercholesterolemia, unspecified (Acute) Cerumen impaction (Acute) Body mass index (BMI) 50.0-59.9, adult (Acute) Type 2 diabetes mellitus without complications (Acute) Neoplasm of unspecified behavior of bone, soft tissue, and skin (Acute) Nasal dryness (Acute) Acute cholecystitis (Acute 09/07/14) Morbid obesity (Chronic) CAD (coronary artery disease) (Chronic) a.? coronary artery stent placement 2006Personal history of pulmonary embolism (Chronic) Hypertension (Chronic) TOM (obstructive sleep apnea) (Chronic) Personal history of kidney stones (Chronic) a.? uric acid stonesVenous stasis ulcer (Chronic) Venous (peripheral) insufficiency (Chronic) H/O bilateral hip replacements (Chronic) Medical History? Anticoagulant long-term use Atrial fibrillation A.? On CoumadinVenous stasis ulcer of ankle limited to breakdown of skin without varicose veins Social History/Home Situation: ?Lives with in a private home with 4 steps to enter.? His bedroom is on the second floor of the house with 15 steps to enter with rails on both sides. He states that since he has been home he has been performing sponge baths only and notes that his (A) with meals, he reports that he is max (A) for (B) socks at baseline and that he can do his dressing and bathing with (A). He notes that if he can't do it his will help him. He sleeps in a bed. He was (I) with his toileting routine. Equipment owned/DME: dressing stick, sock aid, shower seat, grab bars SUBJECTIVE:?NT OBJECTIVE:? ROM: RUE AROM WFL L UE AROM WFL STRENGTH: RUE 4/5 throughout LUE 4/5 throughout FUNCTIONAL MOBILITY/ADLS:? Transfers with FWW Supine-sit Mod (A) and mod vc Sit-Stand CGAx2 Stand-sit CGAx2 Bed-Chair CGA x2 DRESSING sitting on side of the bed Dressing LE max (A) don and doffing (B) socks EATING sitting in chair (I) with chewing, swallowing and opening containers, (I) food to mouth and initiation of tasks. BALANCE: Static sitting with hand support to bed at all times, good Dynamic Sitting Good Static Standing Good Dynamic Standing Good ASSESSMENT:?? Patient is a 76-year-old male referred to occupational therapy services with diagnosis of (B) leg weakness, Lumbago, non compliance with medical tx, trochanteric bursitis. Pt was admitted for short period of time and medically cleared per MD and transitioned to SNF for further care. GOALS 1.? Grooming- sitting in chair (I) brushing teeth 2.? Dressing- (I) UE, Mod (A) LE 3.? Bathing- (I) UE, Mod (A) LE 4.? Toileting- on toilet (I) PLAN OF CARE/TREATMENT PLAN: Discharge from skilled OT services. DISCHARGE RECOMMENDATIONS Based on pts current level of function and his high risk for re-admission, OT recommends SNF for continued strengthening and (I) in his ADL/IADL routines. TREATMENT TIME/MINUTES/CODES N/A Khushbu Chong OTR/L [facility]
== END 2021-11-06 14:27 | disposition skilled nursing facility (03) ==
LOC: ER 14:48 → MS 17:38
PROVIDERS: Admitting Provider Family Medicine; Emergency Provider Physician Assistant; PCP Internal Medicine; Visit Provider Family Medicine
DX: S22.081A Stable burst fracture of T11-T12 vertebra, initial encounter for closed fracture (principal); R29.898 Other symptoms and signs involving the musculoskeletal system; R26.2 Difficulty in walking, not elsewhere classified; M48.07 Spinal stenosis, lumbosacral region; M51.26 Other intervertebral disc displacement, lumbar region; W18.39XA Other fall on same level, initial encounter; Z91.81 History of falling; Z79.01 Long term (current) use of anticoagulants; Z91.19 Patient's noncompliance with other medical treatment and regimen; E78.00 Pure hypercholesterolemia, unspecified; E11.9 Type 2 diabetes mellitus without complications; G47.33 Obstructive sleep apnea (adult) (pediatric); I87.2 Venous insufficiency (chronic) (peripheral); Z96.643 Presence of artificial hip joint, bilateral; I10 Essential (primary) hypertension; I25.10 Atherosclerotic heart disease of native coronary artery without angina pectoris; E66.01 Morbid (severe) obesity due to excess calories; Z68.43 Body mass index [BMI] 50.0-59.9, adult; S80.01XA Contusion of right knee, initial encounter; Z86.711 Personal history of pulmonary embolism
CPT/HCPCS: 36415; 73562; 80053; 87635; 93005; 97110; 97162; 97166; 97530; 97535; 99285; U0005; 81003; 83036; 84484; 84550; 85025; 85610; 93010; 99217; 99220; 99225; G0378

== ENCOUNTER 2021-11-07 12:11 | Outpatient (REF) | payer MEDICARE, SELFPAY ==
[2021-11-07 13:13] LABS: INR 1.9 (0.9-1.1); Prothrombin Time 18.4 sec (9.3-11.0)
== END 2021-11-07 12:12 | disposition home or self-care (01) ==
LOC: LBN 12:11
PROVIDERS: PCP Internal Medicine; Visit Provider Nurse Practitioner Family
DX: Z79.01 Long term (current) use of anticoagulants (principal); I48.91 Unspecified atrial fibrillation
CPT/HCPCS: 85610

== ENCOUNTER 2021-11-12 19:10 | Outpatient (REF) | payer MEDICARE, SELFPAY ==
[2021-11-12 19:05] LABS: Abs Immature Grans 0.03 10^3/uL (0.0-0.06); Absolute Basophil Count 0.07 10^3/uL (0.0-0.2); Absolute Eosinophil Count 0.06 10^3/uL (0.0-0.7); Absolute Lymphocyte Count 1.45 10^3/uL (1.2-3.4); Absolute Neutrophil Count 7.71 10^3/uL (1.2-6.7); Basophils % 0.7; Eosinophils % 0.6; HGB 17.4 g/dL (13.5-17.5); Immature Grans % 0.3; Lymphocytes % 14.3; MCH 29.8 pg (27.0-33.0); MCHC 31.6 % (32.0-36.0); MCV 94.2 fL (80-95); MPV 9.5 fL (8.0-11.0); Monocytes % 7.9; Neutrophils % 76.2; Nucleated RBC 0 %; Platelet Count 312 10^3/uL (130-400); RBC 5.84 10^6/uL (4.36-5.78); RDW 16.3 % (11.8-14.1); RDW-SD 56.5 fL; WBC 10.12 10^3/uL (4.4-10.8)
[2021-11-12 19:12] LABS: Anion Gap 12.5 mmol/L (3-11); BUN 18 mg/dL (7-18); CO2 23.5 mmol/L (21.0-32.0); CREATININE 0.8 mg/dL (0.70-1.30); Calcium 9.5 mg/dL (8.5-10.1); Chloride 105 mmol/L (98-107); Glucose 109 mg/dL (74-106); Sodium 141 mmol/L (136-145)
== END 2021-11-12 19:11 | disposition home or self-care (01) ==
LOC: LBN 19:10
PROVIDERS: PCP Internal Medicine; Visit Provider Family Medicine
DX: M51.26 Other intervertebral disc displacement, lumbar region (principal)
CPT/HCPCS: 80048; 85025

== ENCOUNTER 2022-04-01 15:58 | Outpatient (REF) | payer MEDICARE, SELFPAY ==
[2022-04-01 16:32] LABS: Calculated LDL 105 mg/dL (<100); Cholesterol 190 mg/dL (<200); HDL Cholesterol 38 mg/dL (40-60); Triglyceride 236 mg/dL (<150)
== END 2022-04-01 15:59 | disposition home or self-care (01) ==
LOC: NCHCN 15:58
PROVIDERS: PCP Internal Medicine; Visit Provider Internal Medicine
DX: E11.9 Type 2 diabetes mellitus without complications (principal); I50.9 Heart failure, unspecified; I87.2 Venous insufficiency (chronic) (peripheral); R29.898 Other symptoms and signs involving the musculoskeletal system; Z79.01 Long term (current) use of anticoagulants
CPT/HCPCS: 80061

== ENCOUNTER 2022-07-01 14:22 | Outpatient (REF) | payer MEDICARE, SELFPAY ==
[2022-07-01 15:32] LABS: Anion Gap 8.2 mmol/L (3-11); BUN 29 mg/dL (7-18); CO2 24.8 mmol/L (21.0-32.0); CREATININE 0.9 mg/dL (0.70-1.30); Calcium 9.6 mg/dL (8.5-10.1); Chloride 106 mmol/L (98-107); Estimated GFR 89.62 (mL/min/1.73m2); Glucose 139 mg/dL (74-106); Potassium 4.4 mmol/L (3.5-5.1); Sodium 139 mmol/L (136-145)
== END 2022-07-01 14:23 | disposition home or self-care (01) ==
LOC: NCHCN 14:22
PROVIDERS: PCP Internal Medicine; Visit Provider Internal Medicine
DX: E11.9 Type 2 diabetes mellitus without complications (principal); I50.9 Heart failure, unspecified; I48.91 Unspecified atrial fibrillation; I25.10 Atherosclerotic heart disease of native coronary artery without angina pectoris
CPT/HCPCS: 80048

== ENCOUNTER → 2022-08-07 02:14 | Outpatient (CLI) | payer MEDICARE, SELFPAY ==
--- NOTE | 2022-08-07 | DI.RAD_ITS ---
Exam(s) XR LUMBAR SPINE COMPLETE EXAM: XR LUMBAR SPINE COMPLETE CLINICAL HISTORY: LOW BACK PAIN, M54.50, BILAT LEG WEAKNESS, R29.898. TECHNIQUE: 2D digital imaging was performed. COMPARISON: No exams were available for comparison FINDINGS: Five views No evidence of fracture. Mild degenerative anterolisthesis L4 upon L5. Advanced disc space narrowin g L5-S1 level. Mild disc space narrowing T12-L1 and L1-2 levels with anterior osseous lipping at the se levels. Multilevel facet joint degenerative changes in the lower spine. Bilateral hip prostheses noted. Aortic calcification evident. IMPRESSION: Degenerative changes as described above. DATA REPOSITORY: RADIATION DOSE DELIVERED:
--- NOTE | 2022-08-07 | DI.RAD_ITS ---
Exam(s) XR SACRUM EXAM: XR SACRUM CLINICAL HISTORY: LOW BACK PAIN, M54.50, BILAT LEG WEAKNESS, R29.898. TECHNIQUE: 2D digital imaging was performed. COMPARISON: No exams were available for comparison FINDINGS: Single view: No evidence of pelvic fracture. Bilateral hip prostheses. Left acetabular cup is supported by a scr ew. Dystrophic calcification is seen between the left greater trochanter and left hemipelvis. IMPRESSION: No fracture evident. DATA REPOSITORY: RADIATION DOSE DELIVERED:
== END ==
PROVIDERS: PCP Internal Medicine; Visit Provider Internal Medicine
DX: M54.59 Other low back pain (principal); R29.898 Other symptoms and signs involving the musculoskeletal system; Z96.643 Presence of artificial hip joint, bilateral; M51.37 Other intervertebral disc degeneration, lumbosacral region; M47.817 Spondylosis without myelopathy or radiculopathy, lumbosacral region; M43.16 Spondylolisthesis, lumbar region
CPT/HCPCS: 72110; 72220

== ENCOUNTER 2022-08-08 21:37 | Outpatient (REF) | payer MEDICARE, SELFPAY ==
[2022-08-08 21:52] LABS: HGB 18.5 g/dL (13.5-17.5); MCH 29.9 pg (27.0-33.0); MCHC 31.5 % (32.0-36.0); MCV 95 fL (80-95); MPV 10.1 fL (8.0-11.0); Platelet Count 240 10^3/uL (130-400); RBC 6.18 10^6/uL (4.36-5.78); RDW 15.8 % (11.8-14.1); RDW-SD 54.2 fL; WBC 8.29 10^3/uL (4.4-10.8)
[2022-08-08 22:05] LABS: HCT 58.7 % (40.0-50.0)
[2022-08-08 22:10] LABS: ALT 37 U/L (16-63); AST 28 U/L (15-37); Albumin 3.8 g/dL (3.4-5.0); Alkaline Phosphatase 141 U/L (46-116); BUN 21 mg/dL (7-18); Bilirubin, Total 0.7 mg/dL (0.2-1.0); CREATININE 0.9 mg/dL (0.70-1.30); Calcium 9.4 mg/dL (8.5-10.1); Chloride 104 mmol/L (98-107); Creatine Kinase 41 U/L (39-308); Estimated GFR 89.62 (mL/min/1.73m2); Glucose 121 mg/dL (74-106); Magnesium 2.1 mg/dL (1.8-2.4); Potassium 4.5 mmol/L (3.5-5.1); Sodium 139 mmol/L (136-145); Total Protein 7.5 g/dL (6.4-8.2)
[2022-08-12 14:41] LABS: Albumin 54.9 % (55.8-66.1); Albumin g/dL 3.9 g/dL (3.6-5.2); Comment (See Note); Total Protein 7.1 g/dL (6.3-8.2)
[2022-08-12 15:59] LABS: Immunotyping, Serum (See Note)
== END 2022-08-08 21:38 | disposition home or self-care (01) ==
LOC: NCHCN 21:37
PROVIDERS: PCP Internal Medicine; Visit Provider Internal Medicine
DX: R29.898 Other symptoms and signs involving the musculoskeletal system (principal); E11.9 Type 2 diabetes mellitus without complications; I10 Essential (primary) hypertension
CPT/HCPCS: 80053; 82550; 85027; 83735; 84165; 86320

== ENCOUNTER 2022-08-24 18:04 | Observation (INO) | payer MEDICARE, SELFPAY ==
[2022-08-24 18:07] VITALS: BP 143/92; PULSE 92; RESP 16; TEMP 36.7; O2SAT 97
[2022-08-24 18:41] LABS: Bilirubin Negative (Negative); Blood Negative (Negative); Clarity Clear (Clear); Glucose >=1000 mg/dL (Negative); Ketones Trace mg/dL (Negative); Leukocyte Esterase Negative (Negative); Nitrite Negative (Negative); Urobilinogen 0.2 EU/dL (Up TO 0.2)
[2022-08-24 19:21] LABS: ALT 44 U/L (16-63); AST 30 U/L (15-37); Albumin 3.3 g/dL (3.4-5.0); Alkaline Phosphatase 116 U/L (46-116); Anion Gap 9.7 mmol/L (3-11); BUN 32 mg/dL (7-18); CO2 28.3 mmol/L (21.0-32.0); CREATININE 0.9 mg/dL (0.70-1.30); Calcium 9.5 mg/dL (8.5-10.1); Chloride 102 mmol/L (98-107); Estimated GFR 89.62 (mL/min/1.73m2); Glucose 133 mg/dL (74-106); Potassium 3.7 mmol/L (3.5-5.1); Sodium 140 mmol/L (136-145); Total Protein 7.4 g/dL (6.4-8.2); Vitamin B12 499 pg/mL (193-986)
[2022-08-24 19:22] LABS: Bacteria Negative HPF (Negative); C & S Indicated? No; Crystals Rare Amorphous HPF (Negative); Epithelial Cells Rare HPF (Negative); Mucus Negative (Negative); RBC Negative HPF (0-2); WBC Negative HPF (0-5)
--- NOTE | 2022-08-24 19:33 | ED.GENADUL_ITS ---
Discharge Plan Disposition Patient Disposition: Admit to [facility] Condition: Fair Condition: Fair Discharge Details Chief Complaint: GenMedical Clinical Impression: Bilateral leg weakness Admit Date/Time: 08/24/22 20:25 Admit Provider: Delroy Downs Attending Provider: Delroy Downs Primary Care Provider: Nick Nettles ED Provider: Jigna Rodriguez Discharge Instructions Activity:: Activity as Tolerated Activity:: Activity as Tolerated Equipment/Supplies:: No Equipment Needed Diet:: Carb Counting Discharge Orders Discharge Orders: Discharge Order (Routine); Ordered 08/26/22 Ordered By: Naye Schmid Discharge Data Discharge Date/Time-TO BE ENTERED AT DEPARTURE: 08/24/22 21:43 HPI General Date/Time Provider Initiated Documentation: 08/24/22 18:05 . Limitations to Documentation: no limitations . Information obtained by: patient . HPI Narrative: This is a morbidly obese male patient with a significant past medical history of lumbar ago multiple revisions of total hip replacements trochanteric bursitis on the left, Related Data Home Medications Medication Instructions Recorded Confirmed furosemide 40 mg tablet 20 mg PO BID 09/07/14 08/24/22 lisinopril 40 mg tablet 20 mg PO DAILY 09/07/14 08/24/22 metoprolol succinate 100 mg 100 mg PO DAILY 09/07/14 08/24/22 tablet,extended release 24 hr nitroglycerin 0.4 mg sublingual 0.4 mg sublingual PRN PRN Chest 09/07/14 08/24/22 tablet Pain warfarin 5 mg tablet (Coumadin) 5 mg PO QMWF 08/29/15 08/24/22 allopurinol 300 mg tablet 300 mg PO DAILY 12/30/16 08/24/22 potassium citrate 10 mEq (1,080 20 meq PO BID 12/30/16 08/24/22 mg) tablet,extended release empagliflozin 25 mg tablet 25 mg PO DAILY AM 10/30/21 08/24/22 (Jardiance) warfarin 4 mg tablet 4 mg PO QTUTHSASU 10/30/21 08/24/22 Acetaminophen [Tylenol] 650 mg PO Q4H PRN PRN ##0 11/06/21 08/24/22 polyethylene glycol 3350 17 gram 17 g PO DAILY PRN PRN Constipation 11/06/21 08/24/22 oral powder packet #0 ea baclofen 10 mg tablet 10 mg PO TID #90 tabs 08/26/22 docusate sodium 100 mg capsule 100 mg PO TID PRN PRN #0 caps 08/26/22 (Colace) lidocaine 5 % topical patch 2 patch topical DIRECTED #0 ea 08/26/22 nystatin 100,000 unit/gram topical 0 g topical TID #0 grams 08/26/22 powder polyethylene glycol 3350 17 gram 17 g PO DAILY PRN PRN Constipation 08/26/22 oral powder packet #0 ea Previous Rx's Medication Instructions Recorded Acetaminophen [Tylenol] 650 mg PO Q4H PRN PRN ##0 11/06/21 polyethylene glycol 3350 17 gram 17 g PO DAILY PRN PRN Constipation 11/06/21 oral powder packet #0 ea baclofen 10 mg tablet 10 mg PO TID #90 tabs 08/26/22 docusate sodium 100 mg capsule 100 mg PO TID PRN PRN #0 caps 08/26/22 (Colace) lidocaine 5 % topical patch 2 patch topical DIRECTED #0 ea 08/26/22 nystatin 100,000 unit/gram topical 0 g topical TID #0 grams 08/26/22 powder polyethylene glycol 3350 17 gram 17 g PO DAILY PRN PRN Constipation 08/26/22 oral powder packet #0 ea Allergies Allergy/AdvReac Type Severity Reaction Status Date / Time metformin AdvReac DIARRHEA Verified 10/30/21 15:55 General Stated Complaint: GenMedical NADINE: 3 Review of Systems Constitutional Constitutional: Reports system reviewed and no additional complaints, except as documented PFSH All Active Problems (Updated 09/04/22 @ 19:12 by Jigna Rodriguez NP) Bilateral leg weakness (Acute) Lumbago (Chronic) Non compliance with medical treatment (Acute) Trochanteric bursitis, left hip (Acute) H/O surgical procedure (Chronic) a. Bilateral hip replacement b. Nephrolithotomy c. Right ureteral stent placement d. Coronary artery stent placement 2006 e. Adult circumcision f. Colonoscopy 11/2013 History of revision of total replacement of left hip joint (Acute 11/01/20) Acetabular revision with head/liner exchange for fractured femoral head prosthesis. Pure hypercholesterolemia, unspecified (Acute) Cerumen impaction (Acute) Body mass index (BMI) 50.0-59.9, adult (Acute) Type 2 diabetes mellitus without complications (Chronic) Neoplasm of unspecified behavior of bone, soft tissue, and skin (Acute) Nasal dryness (Acute) Acute cholecystitis (Acute 09/07/14) Morbid obesity (Chronic) CAD (coronary artery disease) (Chronic) a. coronary artery stent placement 2006 Personal history of pulmonary embolism (Chronic) Hypertension (Chronic) TOM (obstructive sleep apnea) (Chronic) Personal history of kidney stones (Chronic) a. uric acid stones Venous stasis ulcer (Chronic) Venous (peripheral) insufficiency (Chronic) Medical History Anticoagulant long-term use Atrial fibrillation A. On Coumadin Venous stasis ulcer of ankle limited to breakdown of skin without varicose veins Surgical History (Updated 08/27/22 @ 00:05 by CEDRICK PADRON) H/O bilateral hip replacements Social History Smoking/Tobacco Use Status: Former Tobacco Use Smoking risk assessment performed?: Yes Alcohol Intake: current Alcohol Intake frequency: a few times a week Drug use: Never Substance use type: does not use Do you feel safe at home: Yes Do you feel safe in your relationship?: Yes Exam Const General: cooperative and no acute distress Nutritional Appearance: obese Orientation: alert and oriented x3 Neck Neck: full ROM Resp Effort & Inspection: normal respiratory effort Auscultation: clear to auscultation bilaterally Cardio Rate: regular rate Rhythm: regular rhythm GI Inspection: large pannus Palpation: soft and nontender Auscultation: normal bowel sounds Neuro Cognition: normal cognition Speech: speech normal Extrem General: normal to inspection, no calf tenderness, edema Laterality: bilateral and other (Unable to lift his legs off the stretcher but able to push down on his feet) Psych Mental Status: mental status grossly normal Speech and Movement: speech clear Mood: congruent mood Affect: normal affect Course Vital Signs Vital signs: Vital Signs Temperature 36.7 C 08/24/22 18:07 Pulse 92 H 08/24/22 18:07 Respiratory Rate 16 08/24/22 18:07 Blood Pressure 143/92 H 08/24/22 18:07 Pulse Oximetry 97 08/24/22 18:07 Temperature 36.7 C 08/24/22 18:07 Pulse 92 H 08/24/22 18:07 Respiratory Rate 16 08/24/22 18:07 Respiratory Effort Accessory Muscle Use 08/24/22 18:17 Respiratory Depth Normal 08/24/22 18:17 Respiratory Pattern Normal 08/24/22 18:17 Blood Pressure 143/92 H 08/24/22 18:07 Blood Pressure Position Supine 08/24/22 18:07 Pulse Oximetry 97 08/24/22 18:07 Oxygen Delivery Method Room Air 08/24/22 18:07 Oxygen Flow Rate 0 08/24/22 18:07 Pain Level 1 08/24/22 18:07 Lab/Test Results Lab/Test Results: Laboratory Tests Range/Units 08/24/22 08/24/22 18:30 18:31 Sodium (136-145) mmol/L 140 Potassium (3.5-5.1) mmol/L 3.7 Chloride (98-107) mmol/L 102 Carbon Dioxide (21.0-32.0) mmol/L 28.3 Anion Gap (3-11) mmol/L 9.7 BUN (7-18) mg/dL 32 H Creatinine (0.70-1.30) mg/dL 0.9 Est GFR (CKD-EPI 2020) (mL/min/1.73m2) 89.62 Glucose (74-106) mg/dL 133 H Calcium (8.5-10.1) mg/dL 9.5 Magnesium (1.8-2.4) mg/dL 2.0 Total Bilirubin (0.2-1.0) mg/dL 1.0 AST (15-37) U/L 30 ALT (16-63) U/L 44 Alkaline Phosphatase (46-116) U/L 116 Total Protein (6.4-8.2) g/dL 7.4 Albumin (3.4-5.0) g/dL 3.3 L Vitamin B12 (193-986) pg/mL 499 Urine Color (Yellow) Yellow Urine Clarity (Clear) Clear Urine pH (5-8) 5.0 Ur Specific [place] (1.005-1.025) 1.020 Urine Protein (Negative) mg/dL >=300 H Urine Ketones (Negative) mg/dL Trace H Urine Blood (Negative) Negative Urine Nitrite (Negative) Negative Urine Bilirubin (Negative) Negative Urine Urobilinogen (Up TO 0.2) EU/dL 0.2 Ur Leukocyte Esterase (Negative) Negative Urine RBC (0-2) HPF Negative Urine WBC (0-5) HPF Negative Ur Epithelial Cells (Negative) HPF Rare Urine Crystals (Negative) HPF Rare Amorphous Urine Bacteria (Negative) HPF Negative Urine Mucus (Negative) Negative Ur Culture Indicated? No Urine Glucose (Negative) mg/dL >=1000 H
[2022-08-24 19:53] LABS: COVID-19 PCR Negative (Negative); Influenza A PCR Negative (Negative); Influenza B PCR Negative (Negative); RSV PCR Negative (Negative)
[2022-08-24 19:55] LABS: Source Nasopharynx
--- NOTE | 2022-08-24 20:24 | W.PM.HP.N ---
Date of service: 08/24/22 Time of Service: 20:24 Assessment and Plan Assessment and plan (1) Bilateral leg weakness: Start date: 08/24/22 Status: Acute Assessment and plan: This is a 76-year-old gentleman who is morbidly obese and deconditioned with gradual onset of weakness though he describes it as acute. He does have severe low back pain with presumed degenerative disc disease but no recent imaging. He is not having cauda equina symptoms but simply discomfort and progressive inability to stand though in his mind I can stand up but cannot support myself. He may be progressing with chronic immobility issues which are not fixable. He will be admitted for physical therapy and Occupational Therapy as well as consider reimaging though he may have limits because of his obesity and claustrophobia. He does not appear to be a surgical candidate at this time. He appears more to be a maintenance issue and he is willing to go to a rehabilitation facility but is not thinking that he would need permanent placement which is more likely especially with his not able to take care of at home. He will be admitted for rehabilitation and further evaluation. He is a full code. (2) Lumbago: Status: Chronic Assessment and plan: Patient does have chronic back pain with slow deterioration. As stated we need to consider reimaging but at least now physical therapy and Occupational Therapy should evaluate him for treatment as an inpatient. (3) H/O bilateral hip replacements: Status: Chronic Assessment and plan: This appears to be a chronic problem which is not reversible or treatable other than rehabilitation which patient appears to not succeed at chronically. Continue physical therapy and Occupational Therapy with safe ambulation to be achieved using a walker. If patient becomes bedridden with Alcides lift and wheelchair he cannot be at home. (4) Morbid obesity: Status: Chronic Assessment and plan: Patient should attempt to lose weight. (5) Type 2 diabetes mellitus without complications: Status: Chronic Assessment and plan: Monitor glucometers with coverage as needed. History of Present Illness History of Present Illness Chief Complaint: Weakness lower extremities Narrative: This is a 76-year-old male patient who chronically has problems getting around at his house but does manage to go up and down stairs despite severe low back pain with known degenerative disc disease and also bilateral hip pain with replacements and revisions. He is morbidly obese but has lost some weight. He states that he gradually became weaker and could not support his weight though he still was able to move his legs. He is struggling with independent ADL activity and does fall frequently and is worried about his not being able to pick them up. We had discussion of what is going to be next if he cannot independently ambulate and he has no good plan. He is a full code. He has had no recent injury and is not incontinent of urine or stool. He denies true motor weakness or decreased motor activity but generally not able to support himself. He does walk with a walker and is stated has been at risk for falling. He denies any recent GI or symptoms no respiratory symptoms no other neurological complaints. Review of Systems Narrative: 13 point review of systems otherwise unrevealing or stable. PFSH All Active Problems Bilateral leg weakness (Acute) Lumbago (Chronic) Non compliance with medical treatment (Acute) Trochanteric bursitis, left hip (Acute) H/O surgical procedure (Chronic) a. Bilateral hip replacement b. Nephrolithotomy c. Right ureteral stent placement d. Coronary artery stent placement 2006 e. Adult circumcision f. Colonoscopy 11/2013 History of revision of total replacement of left hip joint (Acute 11/01/20) Acetabular revision with head/liner exchange for fractured femoral head prosthesis. Pure hypercholesterolemia, unspecified (Acute) Cerumen impaction (Acute) Body mass index (BMI) 50.0-59.9, adult (Acute) Type 2 diabetes mellitus without complications (Chronic) Neoplasm of unspecified behavior of bone, soft tissue, and skin (Acute) Nasal dryness (Acute) Acute cholecystitis (Acute 09/07/14) Morbid obesity (Chronic) CAD (coronary artery disease) (Chronic) a. coronary artery stent placement 2006 Personal history of pulmonary embolism (Chronic) Hypertension (Chronic) TOM (obstructive sleep apnea) (Chronic) Personal history of kidney stones (Chronic) a. uric acid stones Venous stasis ulcer (Chronic) Venous (peripheral) insufficiency (Chronic) H/O bilateral hip replacements (Chronic) Medical History Anticoagulant long-term use Atrial fibrillation A. On Coumadin Venous stasis ulcer of ankle limited to breakdown of skin without varicose veins Social History (Reviewed 08/24/22 @ 20:24 by Delroy Lai Smoking/Tobacco Use Status: Former Tobacco Use Smoking risk assessment performed?: Yes Alcohol Intake: current Alcohol Intake frequency: a few times a week Drug use: Never Substance use type: does not use Do you feel safe at home: Yes Do you feel safe in your relationship?: Yes Meds Allergies and Home Medications Allergies Allergy/AdvReac Type Severity Reaction Status Date / Time metformin AdvReac DIARRHEA Verified 10/30/21 15:55 Home Medications Medication Instructions Recorded Confirmed Type furosemide 40 mg tablet 20 mg PO BID 09/07/14 08/24/22 History lisinopril 40 mg tablet 20 mg PO DAILY 09/07/14 08/24/22 History metoprolol succinate 100 mg 100 mg PO DAILY 09/07/14 08/24/22 History tablet,extended release 24 hr nitroglycerin 0.4 mg sublingual 0.4 mg sublingual PRN PRN Chest 09/07/14 08/24/22 History tablet Pain warfarin 5 mg tablet (Coumadin) 5 mg PO QMWF 08/29/15 08/24/22 History allopurinol 300 mg tablet 300 mg PO DAILY 12/30/16 08/24/22 History potassium citrate 10 mEq (1,080 20 meq PO BID 12/30/16 08/24/22 History mg) tablet,extended release empagliflozin 25 mg tablet 25 mg PO DAILY AM 10/30/21 08/24/22 History (Jardiance) warfarin 4 mg tablet 4 mg PO QTUTHSASU 10/30/21 08/24/22 History Acetaminophen [Tylenol] 650 mg PO Q4H PRN PRN ##0 11/06/21 08/24/22 Rx polyethylene glycol 3350 17 gram 17 g PO DAILY PRN PRN Constipation 11/06/21 08/24/22 Rx oral powder packet #0 ea Exam Narrative Exam Narrative: General: Patient appears older than stated age, morbidly obese lying in bed comfortably. He is alert and oriented x3. He is in no acute distress at rest. HEENT: Normocephalic, eyes with pupils equal and react light symmetrically, extraocular movement tact and sclera anicteric. Oropharynx with moist mucosa and fair dentition. Neck: Supple without JVD. Lungs: Fair aeration and clear to auscultation percussion. Heart: Regular rate and rhythm with no appreciable murmur or gallop. Abdomen: Obese contour, soft and nontender to palpation with no palpable hepatosplenomegaly. Patient does have a pannus with slight erythematous confluent rash over intertriginous area. This is slightly moist. Genitalia/rectal: Exam deferred. Extremities: Without clubbing, cyanosis or grossly pitting edema with patient having chronic nonpitting edema both lower extremities arthritic changes of joints and periarticular muscle atrophy. Skin: Pale, warm and dry. Neuro: Cranial nerves II through XII gross intact, no focal motor deficits with patient moving lower extremities against gravity and against slight resistance very. More deconditioned than true [place] with motor deficit. Psych: Flattened affect with normal mood. Patient seems to have poor insight into his progressive medical process. No abnormal thought processes. Remote and recent memory grossly intact. Results Imaging Imaging Studies: No recent imaging performed. Patient intolerant of MRI because of claustrophobia and truncal obesity Labs Result diagrams: 08/25/22 05:25 08/24/22 18:31 Labs: Laboratory Results - last 24 hr 08/24/22 08/24/22 08/24/22 18:30 18:31 19:04 Sodium 140 Potassium 3.7 Chloride 102 Carbon Dioxide 28.3 Anion Gap 9.7 BUN 32 H Creatinine 0.9 Est GFR (CKD-EPI 2020) 89.62 Glucose 133 H Calcium 9.5 Magnesium 2.0 Total Bilirubin 1.0 AST 30 ALT 44 Alkaline Phosphatase 116 Total Protein 7.4 Albumin 3.3 L Vitamin B12 499 Urine Color Yellow Urine Clarity Clear Urine pH 5.0 Ur Specific [place] 1.020 Urine Protein >=300 H Urine Ketones Trace H Urine Blood Negative Urine Nitrite Negative Urine Bilirubin Negative Urine Urobilinogen 0.2 Ur Leukocyte Esterase Negative Urine RBC Negative Urine WBC Negative Ur Epithelial Cells Rare Urine Crystals Rare Amorphous Urine Bacteria Negative Urine Mucus Negative Ur Culture Indicated? No Urine Glucose >=1000 H COVID-19 Source Nasopharynx SARS-CoV-2 (PCR) Negative Influenza Type A (PCR) Negative Influenza Type B (PCR) Negative RSV (PCR) Negative Last Vital Signs Temp 36.7 C 08/24/22 18:07 Pulse 92 H 08/24/22 18:07 Resp 16 08/24/22 18:07 BP 143/92 H 08/24/22 18:07 Pulse Ox 97 08/24/22 18:07
[2022-08-24 20:28] VITALS: BP 142/88; PULSE 89; RESP 18; O2SAT 98
[2022-08-24 21:05] VITALS: O2SAT 98
[2022-08-24 21:08] LABS: INR 3.3 (0.9-1.1); Prothrombin Time 30.5 sec (9.3-11.0)
[2022-08-24 21:12] LABS: Uric Acid 4.2 mg/dL (3.5-7.2)
[2022-08-24 21:17] LABS: Creatine Kinase 25 U/L (39-308)
[2022-08-24 21:17] LABS: TSH (W/Ref FT4) 2.04 uIU/mL (0.36-3.74)
[2022-08-24 22:03] VITALS: BP 158/98; PULSE 90; RESP 16; TEMP 36.9; O2SAT 97
[2022-08-24] MEDS: Acetaminophen 325 MG TAB PO (22:50)
[2022-08-24] MEDS: Warfarin 4 MG TAB PO (22:50)
[2022-08-24 23:44] VITALS: BP 154/82; PULSE 73; RESP 18; TEMP 35.8; O2SAT 98
[2022-08-25 03:40] VITALS: BP 137/77; PULSE 78; RESP 16; TEMP 36.4; O2SAT 95
[2022-08-25 06:19] LABS: HCT 55.6 % (40.0-50.0); HGB 18.1 g/dL (13.5-17.5); MCH 30.6 pg (27.0-33.0); MCHC 32.6 % (32.0-36.0); MCV 94 fL (80-95); MPV 9.9 fL (8.0-11.0); Platelet Count 251 10^3/uL (130-400); RBC 5.91 10^6/uL (4.36-5.78); RDW 15.1 % (11.8-14.1); RDW-SD 52.3 fL; WBC 7.57 10^3/uL (4.4-10.8)
[2022-08-25 06:25] LABS: INR 2.9 (0.9-1.1); Prothrombin Time 27.4 sec (9.3-11.0)
[2022-08-25 06:31] LABS: ALT 36 U/L (16-63); AST 26 U/L (15-37); Alkaline Phosphatase 98 U/L (46-116); Anion Gap 8.8 mmol/L (3-11); BUN 26 mg/dL (7-18); Bilirubin, Total 1.2 mg/dL (0.2-1.0); CO2 28.2 mmol/L (21.0-32.0); CREATININE 0.8 mg/dL (0.70-1.30); Calcium 9.3 mg/dL (8.5-10.1); Chloride 104 mmol/L (98-107); Estimated GFR 92.87 (mL/min/1.73m2); Glucose 119 mg/dL (74-106); Magnesium 2.1 mg/dL (1.8-2.4); Potassium 3.7 mmol/L (3.5-5.1); Sodium 141 mmol/L (136-145); Total Protein 6.4 g/dL (6.4-8.2)
[2022-08-25 07:35] VITALS: BP 147/92; PULSE 78; RESP 18; TEMP 36.1; O2SAT 98
[2022-08-25] MEDS: Furosemide 40 MG TAB 20 MG PO ×2 (08:50→19:57)
[2022-08-25] MEDS: Acetaminophen 325 MG TAB PO ×2 (08:50→20:11)
[2022-08-25] MEDS: Allopurinol 300 MG TAB PO (08:51)
[2022-08-25] MEDS: Lisinopril 20 MG TAB PO (08:51)
[2022-08-25] MEDS: Metoprolol CR 100 MG TABCR PO (08:51)
[2022-08-25] MEDS: Normal Saline Flush 10 ML SYR IVP ×2 (08:52→19:58)
[2022-08-25] MEDS: Nystatin POWDER 60 GM JAR TP ×3 (08:52→19:58)
--- NOTE | 2022-08-25 08:54 | PDOC.CMIN ---
- If Service Date Differs Date of service: 08/25/22 Time of Service: 08:54 Care Management Initial Assess REASON FOR HOSPITALIZATION:: Bilateral Lower Extremity Weakness, DDD Lumbar Spine. PAST MEDICAL HISTORY/PAST SURGICAL HISTORY:: All Active Problems: Bilateral leg weakness (Acute), Lumbago (Chronic). Non compliance with medical treatment (Acute), Trochanteric bursitis, left hip (Acute), H/O surgical procedure (Chronic): a. Bilateral hip replacement, b. Nephrolithotomy, c. Right ureteral stent placement,. d. Coronary artery stent placement 2006, e. Adult circumcision,. f. Colonoscopy 11/2013, History of revision of total replacement of left hip joint (Acute 11/01/20) - Acetabular revision with head/liner exchange for fractured femoral head prosthesis, Pure hypercholesterolemia, unspecified (Acute), Cerumen impaction (Acute), Body mass index (BMI) 50.0-59.9, adult (Acute), Type 2 diabetes mellitus without complications (Chronic),. Neoplasm of unspecified behavior of bone, soft tissue, and skin (Acute),. Nasal dryness (Acute), Acute cholecystitis (Acute 09/07/14), Morbid obesity (Chronic), CAD (coronary artery disease) (Chronic) - a. coronary artery stent placement 2006, Personal history of pulmonary embolism (Chronic), Hypertension (Chronic), TOM (obstructive sleep apnea) (Chronic), Personal history of kidney stones (Chronic) - a. uric acid stones, Venous stasis ulcer (Chronic), Venous (peripheral) insufficiency (Chronic), and H/O bilateral hip replacements (Chronic). Medical History: Anticoagulant long-term use, Atrial fibrillation - A. On Coumadin, and Venous stasis ulcer of ankle limited to breakdown of skin without varicose veins. PREVIOUS FUNCTIONAL STATUS/SOCIAL/FAMILY SUPPORTS:: Jimbo lives in [facility] with his , Leah. 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 Jimbo has lots of friends and occupies his time with talking with friends on the phone, reading and playing games on the computer. He is independent with his ADLs at baseline. He was driving up until three weeks ago. CURRENT FUNCTIONAL STATUS:: Jimbo is sitting in a chair when comes to meet with him. His , Leah, is present in the room. Jimbo reports he was at a short-term rehab in October and while he was only there for a few days, the physical therapy he received at the facility helped him regain a lot of strength and mobility. He expresses an interest in again going to a short-term rehab as it previously was helpful. CM will continue to follow. ADVANCE DIRECTIVES:: None on file; patient accepts a form though believes he has already completed an Advance Directives. Has patient been provided with info about the portal/API?: Yes Did the patient sign up for the portal?: Yes (Previously enrolled) CODE STATUS:: Full Code INSURANCE COVERAGE / FINANCIAL ISSUES:: [employer] Medicare Replacement Plan. CURRENT HOME/COMMUNITY SERVICES/EQUIPMENT:: Jimbo has a FWW, cane, toilet seat riser, Bipap machine and has Home Health PT services. PRIMARY CARE PHYSICIAN:: Nick Nettles MD. POTENTIAL DISCHARGE NEEDS:: Follow up appointment with PCP and short-term rehab vs. resumption of HH PT. PATIENT/FAMILY EDUCATION NEEDS:: Review of discharge instructions and discuss Ask Me Three. ANTICIPATED BARRIERS TO DISCHARGE:: None identified at this time. TRANSPORTATION:: Undetermined at this time as it is dependent on disposition. PLAN:: Patient will be discharged home with a resumption of HH PT when medically cleared vs. short term rehab. He will follow up with his PCP and plan of care as prescribed. CM will continue to follow.
--- NOTE | 2022-08-25 10:20 | IN_ITS ---
PT Notes Visit Reasons: Bilateral lwr extremity weakness,DDDlumbar spine Inpatient Physical Therapy Evaluation Date: 08/25/22 Referring Doctor: Dr. Downs PT Orders: PT CONSULT: limited ability to ambulate Precautions: none Patient Profile/Admitting Diagnosis: Patient presented to the ER yesterday due to LE weakness and inability to ambulate. Admitted for medical management, with PT consult received to assess mobility. PMHX: All Active Problems? Bilateral leg weakness (Acute) Lumbago (Chronic) Non compliance with medical treatment (Acute) Trochanteric bursitis, left hip (Acute) H/O surgical procedure (Chronic) a.? Bilateral hip replacement b.? Nephrolithotomy c.? Right ureteral stent placement d.? Coronary artery stent placement 2006 e.? Adult circumcision f.? Colonoscopy 11/2013History of revision of total replacement of left hip joint (Acute 11/01/20) Acetabular revision with head/liner exchange for fractured femoral head prosthesis.Pure hypercholesterolemia, unspecified (Acute) Cerumen impaction (Acute) Body mass index (BMI) 50.0-59.9, adult (Acute) Type 2 diabetes mellitus without complications (Chronic) Neoplasm of unspecified behavior of bone, soft tissue, and skin (Acute) Nasal dryness (Acute) Acute cholecystitis (Acute 09/07/14) Morbid obesity (Chronic) CAD (coronary artery disease) (Chronic) a.? coronary artery stent placement 2006Personal history of pulmonary embolism (Chronic) Hypertension (Chronic) TOM (obstructive sleep apnea) (Chronic) Personal history of kidney stones (Chronic) a.? uric acid stonesVenous stasis ulcer (Chronic) Venous (peripheral) insufficiency (Chronic) H/O bilateral hip replacements (Chronic) Medical History? Anticoagulant long-term use Atrial fibrillation A.? On CoumadinVenous stasis ulcer of ankle limited to breakdown of skin without varicose veins Social History/Home Situation: Patient lives in a private home with his Leah, who is present at time of consult. He has 3 RAJESH home with bilat rails. states that stairs are difficult at baseline, and that community outings are very fatiguing for Jimbo. He had been participating in outpatient PT as recently as last month, then transitioned to PT after a series of falls. Typically ambulates with FWW. Equipment Owned/DME: FWW, elevated toilet seat Subjective: Jimbo states that he is unsure if he'll be able to walk. He reports severe weakness in his legs, that worsened very suddenly yesterday. He was stuck in his chair for about 4 hours, unable to get up. Reports 3 recent falls, and states that he is very nervous about falling again. Objective: General Observation: Resting in bed. No lines. Compressive dressings in place to bilat LEs. Mental Status: A&Ox ROM: Right Upper Extremity: Shoulder flexion 80*, elbow and wrist motion WNL Left Upper Extremity: Shoulder flexion 80*, elbow and wrist motion WNL Right Lower Extremity: Hip flexion to 90*. Knee motion grossly WFL Left Lower Extremity: Hip flexion to 90*. Knee motion grossly WFL Strength: Right Upper Extremity: Shoulder flexion 3-/5. Biceps 4/5. Triceps 4/5. Left Upper Extremity: Shoulder flexion 3-/5. Biceps 4/5. Triceps 4/5. Right Lower Extremity: Hip flexion 3-/5. Requires mod A right heel slide. Quads 4/5. Ankle DF 3/5 or greater. Left Lower Extremity: Hip flexion 3/5. Quads 4/5. Ankle DF 3/5 or greater. Bed Mobility/Transfers: supine-sit: mod A sit-stand: CGA stand-sit: CGA and support to chair Gait: Patient ambulates 3'x1 and 5'x1 with bariatric walker and SBA x 2. Balance: Static Sitting: good Dynamic Sitting: good Static Standing: fair Dynamic Standing: fair Special Tests: Mobility Limitations Standardized Measure [facility] AM-PAC 6 clicks Basic Mobility Inpatient Short Form: Raw Score: 17 CMS Score: 51% Informed Consent/Education: Patient instructed in purpose of PT consult and plan of care. Therapeutic Exercises ([id number]): seated november x 30 seconds seated punch ups, no back support, 10x LAQ 10x heel slides 10x (assistance to RLE) ankle pumps with knees actively extended 10x *provided written insruction for hourly completion Assessment: Patient is a 76 year old male referred to physical therapy services with the diagnosis of LE weakness. Patient presents with progressively worsening mobility over the past couple of weeks, on top of baseline mobility impairments. He has a long history of LBP with DJD (currently awaiting MRI) as well as bilat hip replacements with multiple revisions, both of which are likely contributing to his current mobility issues. He also expresses significant fear of falling after multiple falls at home requiring assist of 3 recep to get him back up. We discussed strengthening efforts at length today, with patient encouraged to participate in exercise program as much as possible to regain strength, even as he awaits further work up in regards to his back. He is at high risk for further loss of mobility if he decreases activity, which I discusse with both he and his . He requires skilled PT intervention to maximize safety and mobility to allow for safe return home, although may require brief rehab stay prior to doing so. Will see how he progresses and continue monitoring for discharge planning. He currently demonstrates the following impairment level findings: 1. Decreased LE strength 2. gait impairments 3. fear of falling with h/o falls 4. chronic LBP, awaiting MRI Impairments are contributing to the following functional limitations: 1. unable to ambulate household distances 2. unable to manage stairs into house 3. fear of falling Patient is assessed as Moderate 29776 complexity based on the following: History: Patient is a 76 year old male with chronic mobility issues, worsened in the past 2 weeks. Complicating factors include morbid obesity, fear of falling with multiple recent falls, and extensive medical history. Examination: functional limitations as noted above Presentation: evolving Decision Making: moderate complexity Goals: Goals X1 week 1. Supine-Sit : supervision 2. Sit-Supine : supervision 3. Sit-Stand : supervision 4. Stand-Sit : supervision 5. Bed-Chair : supervision with FWW 6. Chair-Bed : supervision with FWW 7. Gait : supervision with FWW x 25' 8. Stairs : ascend and descend x 3 with bilat rails Plan of Care/Treatment Plan: 1-2x/day, 7 days/week x 1 week. Plan of care has been reviewed with the OLDER WORKER SPECIALIST providing the service under Physical Therapy direction. Initiate Physical Therapy intervention for strengthening, bed mobility, transfers, gait, stairs, balance training, use of assistive device. DISCHARGE RECOMMENDATIONS: [] Home with HH PT vs SNF for continued rehab prior to returning home TREATMENT CODE/TIME: 94007, 00114 (9:00-9:50) Nika Samayoa, PT, DPT [facility]
--- NOTE | 2022-08-25 10:20 | NUR.NOTE ---
Patient was able to walk in the room with minimal help, patient needed help to get to the side of the bed and stand but did well walking in the room. Patient used the commode to have a BM and refused to clean himself so the EXPANSION ENVELOPE MAKER HAND cleaned him. EXP[employer]ION ENVELOPE MAKER HAND states the patient refused to use the urinal and urinated all over the bed. Patient has used the urinal previously this morning.
[2022-08-25 11:24] VITALS: BP 151/84; PULSE 71; RESP 18; TEMP 36.2; O2SAT 93
[2022-08-25 14:52] VITALS: BP 131/95; PULSE 82; RESP 19; TEMP 36.9; O2SAT 98
--- NOTE | 2022-08-25 18:06 | W.PM.PROGNOT ---
Date of Service Date of service: 08/25/22 Time of Service: 18:06 Assessment and Plan Assessment and plan (1) Bilateral leg weakness: Status: Acute Assessment and plan: improved overnight, no sign of cauda equina PT consulted MRI pending (2) Lumbago: Status: Chronic Assessment and plan: Patient does have chronic back pain with slow deterioration. As stated we need to consider reimaging but at least now physical therapy and Occupational Therapy should evaluate him for treatment as an inpatient. (3) H/O bilateral hip replacements: Status: Chronic Assessment and plan: This appears to be a chronic problem which is not reversible or treatable other than rehabilitation which patient appears to not succeed at chronically. Continue physical therapy and Occupational Therapy with safe ambulation to be achieved using a walker. If patient becomes bedridden with Alcides lift and wheelchair he cannot be at home. (4) Morbid obesity: Status: Chronic Assessment and plan: Patient should attempt to lose weight. (5) Type 2 diabetes mellitus without complications: Status: Chronic Assessment and plan: Monitor glucometers with coverage as needed. discussed with DR Benitez Subjective Subjective Patient reports: no new complaints, feels better, tolerating liquids well, tolerating a regular diet and afebrile; denies shortness of breath Interval history since last seen: was able to get up and out of bed. Exam Const General: cooperative, comfortable and no acute distress Nutritional Appearance: obese morbidly obese Orientation: alert, awake and oriented x3 HENMT Head: normal to inspection Mouth: oral mucosae normal Resp Effort & Inspection: normal respiratory effort Cardio Rate: regular rate Rhythm: regular rhythm Neuro General: moves all extremities and no focal motor deficits Gait: gait assisted Method: walker Motor: muscle tone normal throughout and strength 5/5 throughout Extrem General: full ROM and edema Laterality: bilateral Objective Last Vital Signs Temp 36.9 C 08/25/22 14:52 Pulse 82 08/25/22 14:52 Resp 19 08/25/22 14:52 BP 131/95 H 08/25/22 14:52 Pulse Ox 98 08/25/22 14:52 Laboratory Results - last 24 hr 08/24/22 08/24/22 08/24/22 18:30 18:31 18:31 WBC RBC Hgb Hct MCV MCH MCHC RDW Plt Count MPV PT INR Sodium 140 Potassium 3.7 Chloride 102 Carbon Dioxide 28.3 Anion Gap 9.7 BUN 32 H Creatinine 0.9 Est GFR (CKD-EPI 2020) 89.62 Glucose 133 H Uric Acid Calcium 9.5 Magnesium 2.0 Total Bilirubin 1.0 AST 30 ALT 44 Alkaline Phosphatase 116 Creatine Kinase Total Protein 7.4 Albumin 3.3 L Vitamin B12 499 TSH 2.04 Urine Color Yellow Urine Clarity Clear Urine pH 5.0 Ur Specific [place] 1.020 Urine Protein >=300 H Urine Ketones Trace H Urine Blood Negative Urine Nitrite Negative Urine Bilirubin Negative Urine Urobilinogen 0.2 Ur Leukocyte Esterase Negative Urine RBC Negative Urine WBC Negative Ur Epithelial Cells Rare Urine Crystals Rare Amorphous Urine Bacteria Negative Urine Mucus Negative Ur Culture Indicated? No Urine Glucose >=1000 H COVID-19 Source SARS-CoV-2 (PCR) Influenza Type A (PCR) Influenza Type B (PCR) RSV (PCR) 08/24/22 08/24/22 08/24/22 18:35 18:35 19:04 WBC RBC Hgb Hct MCV MCH MCHC RDW Plt Count MPV PT INR Sodium Potassium Chloride Carbon Dioxide Anion Gap BUN Creatinine Est GFR (CKD-EPI 2020) Glucose Uric Acid 4.2 Calcium Magnesium Total Bilirubin AST ALT Alkaline Phosphatase Creatine Kinase 25 L Total Protein Albumin Vitamin B12 TSH Urine Color Urine Clarity Urine pH Ur Specific [place] Urine Protein Urine Ketones Urine Blood Urine Nitrite Urine Bilirubin Urine Urobilinogen Ur Leukocyte Esterase Urine RBC Urine WBC Ur Epithelial Cells Urine Crystals Urine Bacteria Urine Mucus Ur Culture Indicated? Urine Glucose COVID-19 Source Nasopharynx SARS-CoV-2 (PCR) Negative Influenza Type A (PCR) Negative Influenza Type B (PCR) Negative RSV (PCR) Negative 08/24/22 08/25/22 08/25/22 20:53 05:25 05:25 WBC 7.57 RBC 5.91 H Hgb 18.1 H Hct 55.6 H MCV 94 MCH 30.6 MCHC 32.6 RDW 15.1 H Plt Count 251 MPV 9.9 PT 30.5 H INR 3.3 H Sodium 141 Potassium 3.7 Chloride 104 Carbon Dioxide 28.2 Anion Gap 8.8 BUN 26 H Creatinine 0.8 Est GFR (CKD-EPI 2020) 92.87 Glucose 119 H Uric Acid Calcium 9.3 Magnesium 2.1 Total Bilirubin 1.2 H AST 26 ALT 36 Alkaline Phosphatase 98 Creatine Kinase Total Protein 6.4 Albumin 3.0 L Vitamin B12 TSH Urine Color Urine Clarity Urine pH Ur Specific [place] Urine Protein Urine Ketones Urine Blood Urine Nitrite Urine Bilirubin Urine Urobilinogen Ur Leukocyte Esterase Urine RBC Urine WBC Ur Epithelial Cells Urine Crystals Urine Bacteria Urine Mucus Ur Culture Indicated? Urine Glucose COVID-19 Source SARS-CoV-2 (PCR) Influenza Type A (PCR) Influenza Type B (PCR) RSV (PCR) 08/25/22 05:25 WBC RBC Hgb Hct MCV MCH MCHC RDW Plt Count MPV PT 27.4 H INR 2.9 H Sodium Potassium Chloride Carbon Dioxide Anion Gap BUN Creatinine Est GFR (CKD-EPI 2020) Glucose Uric Acid Calcium Magnesium Total Bilirubin AST ALT Alkaline Phosphatase Creatine Kinase Total Protein Albumin Vitamin B12 TSH Urine Color Urine Clarity Urine pH Ur Specific [place] Urine Protein Urine Ketones Urine Blood Urine Nitrite Urine Bilirubin Urine Urobilinogen Ur Leukocyte Esterase Urine RBC Urine WBC Ur Epithelial Cells Urine Crystals Urine Bacteria Urine Mucus Ur Culture Indicated? Urine Glucose COVID-19 Source SARS-CoV-2 (PCR) Influenza Type A (PCR) Influenza Type B (PCR) RSV (PCR) PAWSS Have you Been Recently Intoxicated or Drunk Within the Last 30 days?: No Have you Ever Experienced Previous Episodes of Alcohol Withdrawal?: No Have you ever Experienced Withdrawal Seizures?: No Have you ever Experienced Delirium Tremens(DT)s?: No Have you ever undergone Alcohol Rehabilitation Treatment (i.e, inpt ot outpatient treatment programs)?: No Have you ever Experienced Blackouts?: No Have you ever Combined Alcohol with other Downers within the last 90 days?: No Have you ever Combined Alcohol with any other Substance of Abuse during the last 90 days?: No Positive Blood Alcohol level on Presentation? [PCS.BAL]: No Evidence of Increased Autonomic Activity (i.e. HR>120, tremor, sweating, agitation, nausea)?: No Result: 0
[2022-08-25 19:53] VITALS: BP 139/88; PULSE 82; RESP 18; TEMP 36.4; O2SAT 95
[2022-08-25] MEDS: Potassium Citrate 1080 MG TABCR 2160 MG PO (19:57)
[2022-08-25] MEDS: Warfarin 4 MG TAB PO (20:10)
[2022-08-25 23:14] VITALS: BP 132/92; PULSE 85; RESP 22; TEMP 36.1; O2SAT 95
--- NOTE | 2022-08-26 | DI.MRI_ITS ---
Exam(s) MR LUMBAR SPINE WO EXAM: MR LUMBAR SPINE WO CLINICAL HISTORY: spinal stenosis, bilateral leg weakness TECHNIQUE: Multiplanar multisequence MRI of the Lumbar Spine was performed. CONTRAST MATERIAL: Noncontrast COMPARISON: CR XR LUMBAR SPINE COMPLETE from 08/07/2022 FINDINGS: Exam somewhat limited by motion and body habitus. Bones: The last intervertebral disc space is designated the L5/S1 level for the numbering purpose of this examination. The vertebral body heights are well maintained with the exception of mild loss of height at the T 11 vertebral body.. Mild spondylolisthesis at L4-5. Mild levoscoliosis.. The signal c haracteristics are unremarkable. Cord: The conus tip ends at the T12 level. It is of normal size and signal intensity. T11-12: Prominent anterior bony bridging. No disc bulging. T12-L1: Mild disc bulging. L1-2: Mild loss of disc height. Small endplate osteophytes. Mild concentric disc bulging. Large s uperimposed right paracentral disc protrusion causing severe central canal stenosis. Severe right ne ural foraminal narrowing. Mild left neural foraminal narrowing. L2-3: Mild disc bulging. Moderate right and mild left neural foraminal narrowing. L3-4: Mild facet degenerative changes cause mild right neural foraminal narrowing. No significant ce ntral canal stenosis. No significant disc bulging. L4-5: Prominent facet joint degenerative changes and ligamentous hypertrophy cause mild spondylolist hesis. There is moderate central canal stenosis and moderate to severe bilateral neural foraminal kurt rowing. L5-S1: Prominent anterior bony bridging. Moderate loss of disc height and small endplate osteophytes . No central canal stenosis. Moderate right neural foraminal narrowing. Soft tissues: The visualized SI joints and sacrum are well maintained. Significant muscle atrophy is noted. The paraspinal soft tissues are otherwise unremarkable. IMPRESSION: Large right paracentral disc herniation at L1-2 causing severe central canal stenosis. Moderate central canal stenosis at L4-5 secondary to combination of degenerative changes. Multilevel neural foraminal narrowing secondary to combination of facet degenerative changes and dege nerative disc changes, greater on the right side. DATA REPOSITORY:
[2022-08-26 02:53] VITALS: BP 153/89; PULSE 88; RESP 20; O2SAT 97
[2022-08-26] MEDS: Acetaminophen 325 MG TAB PO (06:05)
[2022-08-26 06:36] LABS: INR 3.5 (0.9-1.1); Prothrombin Time 32.5 sec (9.3-11.0)
[2022-08-26 07:56] VITALS: BP 153/94; PULSE 83; RESP 20; TEMP 36.2; O2SAT 98
[2022-08-26] MEDS: Potassium Citrate 1080 MG TABCR 2160 MG PO (08:33)
[2022-08-26] MEDS: Nystatin POWDER 60 GM JAR TP ×2 (08:33→13:56)
[2022-08-26] MEDS: Allopurinol 300 MG TAB PO (08:33)
[2022-08-26] MEDS: Furosemide 40 MG TAB 20 MG PO (08:33)
[2022-08-26] MEDS: Lisinopril 20 MG TAB PO (08:34)
[2022-08-26] MEDS: Metoprolol CR 100 MG TABCR PO (08:34)
[2022-08-26] MEDS: Normal Saline Flush 10 ML SYR IVP (08:55)
[2022-08-26] MEDS: LORazepam 2 MG/ML VIAL 1 MG IVP (08:55)
--- NOTE | 2022-08-26 09:51 | PDOC.CMPRO ---
- If Service Date Differs Date of service: 08/26/22 (N) Time of Service: 09:51 Care Management Progress Note S/O: A: Jimbo is a 76 year old man admitted on 08/24/22 withj BLE weakness P:Patient will be discharged home with a resumption of HH PT when medically cleared vs. short term rehab. He will follow up with his PCP and plan of care as prescribed. CM will continue to follow.
--- NOTE | 2022-08-26 11:19 | PT.INTREAT ---
Date of service: 08/26/22 Time of Service: 10:50 PT Notes Visit Reasons: Bilateral lwr extremity weakness,DDDlumbar spine Inpatient Physical Therapy Treatment Note [facility] Date: 08/26/2022 PRECAUTIONS: Activity as tolerated, Fall SUBJECTIVE: Jimbo is pleasant and agreeable to participating in PT. During gait training, he reports that he does not feel safe ambulating at this time as he received Ativan this morning prior to his MRI testing. OBJECTIVE: PAIN: Patient c/o back pain post gait training BED MOBILITY/TRANSFERS Sit-stand: S Stand-sit: S GAIT Assistive Device: FWW Weight bearing: Full Assist: SBA Distance: 40' Deviation: Slow pacing, short step height and length THEREX: Patient was instructed in a global strengthening program, completed in a seated position, to include: ankle pumps/heel raises, LAQ, hip flexion and shoulder flexion. ASSESSMENT: Patient tolerated session without complaint. Patient demonstrates limited activity tolerance, which could be in part to the Ativan he received earlier this morning. PLAN: Continue with general conditioning and global strengthening for improved mobility and activity tolerance. TREATMENT CODE/TIME: 26 minutes; 27076, 20296 (10:50)
[2022-08-26 12:49] VITALS: BP 130/79; PULSE 80; RESP 19; TEMP 36.9; O2SAT 96
--- NOTE | 2022-08-26 13:08 | RESPIRATORY ---
Patient has an [id number] VAUTO settings: max IPAP 22 min, EPAP 14 & PS of 4 with Anaplan. Patient uses a ResMed Mirage Quattro FFM size large with device at home.
--- NOTE | 2022-08-26 14:37 | DSE_ITS ---
Date of service: 08/26/22 Time of Service: 14:41 DS: Diagnosis Discharge Diagnosis (1) Bilateral leg weakness: Status: Acute Asessment and Plan: Improving, benefit from PT and continued home PT (2) Lumbago: Status: Chronic (3) Morbid obesity: Status: Chronic (4) Type 2 diabetes mellitus without complications: Status: Chronic Discharge Plan Disposition Patient Disposition: Home W/Home Health Services Condition: Fair Discharge Details Reason For Visit: Bilateral lwr extremity weakness,DDDlumbar spine Admit Date/Time: 08/24/22 20:25 Admit Provider: Delroy Downs Attending Provider: Delroy Downs Primary Care Provider: Nick eNttles Hospital Course Hospital Course: This is a 76 yo morbidly obese male with a PMH of CAD, DM2, HLD, TOM, HTN, pulmonary embolism, bilateral hip replacements, and venous stasis with ulceration.? He states he was ambulatory, but on day of this admission he was sitting down and was unable to stand.? Denied any chest pain, palpitations or shortness of breath.? He denied any dizziness/syncope.? He did have generalized bilateral lower extremity weakness. No upper extremity weakness.? 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 Placed on observation status on the medical floor for PT/OT evaluation.? He was evaluated by PT and PT made the following assessments: 1.? Decreased strength to B LE major muscle groups 2.? Impaired standing balance 3.? Impaired activity tolerance 4.? Chronic swelling on BLE These impairments are contributing to the following functional limitations: 1.? Difficulty with ambulation without assistive device 2.? Increased completion time for mobility ADL performance 3.? Increased risk for falls 4.? Difficulty with managing steps alone safely Patient tolerated gait training and stair negotiation with PT, he did require a seated rest break in between activity to accommodate low back pain with standing weight bearing.? He was able to transfer and ambulate slowly.? He was able to maneuver the stairs in the PT room. His back was reimaged and those MRI results sent to [facility].? He has been referred to [facility] orthopedics for evaluation and treatment of his chronic back pain. ?He was started on lidocaine patches transdermal, baclofen orally, diclofenac gel and continued on NSAIDS. He had a similar episode this spring. His INR here today is 3.5. He was told not to take his Warfarin tonight and to resume on Friday with usual 4 mg dose. He will check his INR on Friday and report to [facility] for guidance. Today, he was given a referral to [facility] orthopedics and his MRI from earlier this year and todays, was sent to [facility] for review. He is discharged stable to home, with his , with resumption of home health PT and Nursing. ? ? Discussed with Dr Benitez Home Meds and New Rx's Prescriptions: New baclofen 10 mg tablet 10 mg PO TID Qty: 90 0RF polyethylene glycol 3350 17 gram Powder In Packet 17 g PO DAILY PRN PRN (Reason: Constipation) Qty: 0 0RF lidocaine 5 % Adhesive Patch,Medicated 2 patch topical DIRECTED Qty: 0 0RF docusate sodium [Colace] 100 mg Capsule 100 mg PO TID PRN PRNQty: 0 0RF nystatin 100,000 unit/gram Powder 0 g topical TID Qty: 0 0RF Continued furosemide 40 MG tablet 20 mg PO BID metoprolol succinate 100 MG tablet extended release 24 hr 100 mg PO DAILY nitroglycerin 0.4 MG tablet, sublingual 0.4 mg Sublingual PRN PRN (Reason: Chest Pain) lisinopril 40 MG tablet 20 mg PO DAILY warfarin [Coumadin] 5 MG tablet 5 mg PO QMWF potassium citrate 10 MEQ tablet extended release 20 meq PO BID allopurinol 300 MG tablet 300 mg PO DAILY Acetaminophen [Tylenol] 650 mg PO Q4H PRN PRNQty: 0 0RF polyethylene glycol 3350 17 gram Powder In Packet 17 g PO DAILY PRN PRN (Reason: Constipation) Qty: 0 0RF warfarin 4 mg Tablet 4 mg PO QTUTHSASU Jardiance 25 mg Tablet 25 mg PO DAILY AM Discharge Instructions Instructions: Baclofen (By mouth), Lidocaine Patch (On the skin), Lumbar Spinal Stenosis (DC), Degenerative Disc Disease (DC), Decision Aid for Herniated Disc in the Lower Back (GEN) Additional Instructions: Do not take your Warfarin tonight. Resume tomorrow evening, take scheduled Warfarin 4 mg orally. Check you INR as planned on Friday and let [facility] know the result and they will advise you. Start Baclofen 2-3 times and lidocaine patches - 2 to lower back on for 12 hours, then off at bedtime. Your MRI from 10/30 and today have been sent to [facility] orthopedics. They will call you with an appointment. It is important to get up and move often [facility] Stand Alone Forms: Nursing Discharge Form Referrals: [facility] [Other] (Resumption of services) ORTHOPAEDICS,[facility] [OTHER] - (Consultation for possible surgical therapy for patient who is not having adequate clinical response to conservative therapy, NSAIDS, lidocaine patches and PT and has dysfunction and is disabled by his symptoms. MRI from 10/30 and today pushed for your review. IMPRESSION: Large right paracentral disc herniation at L1-2 causing severe central canal stenosis. Moderate central canal stenosis at L4-5 secondary to combination of degenerative changes. Multilevel neural foraminal narrowing secondary to combination of facet degenerative changes and degenerative disc changes, greater on the right side. Thank you for your care of this patient. ) Nick Nettles MD [Primary Care Provider] - 09/05/22 2:20 pm Activity:: Activity as Tolerated Equipment/Supplies:: No Equipment Needed Diet:: Carb Counting Discharge Orders Discharge Orders: Discharge Order (Routine); Ordered 08/26/22 Ordered By: Naye Schmid Discharge Data Discharge Date/Time-TO BE ENTERED AT DEPARTURE: 08/26/22 15:40 DS: Summary Time Spent with Patient providing and/or coordinating discharge services: Greater than 30 minutes Status at Discharge Functional status at discharge: uses cane/walker Overall status at discharge: patient is progressing back to baseline Mental Status: mental status grossly normal Speech and Movement: slowed movement Mood: congruent mood Affect: normal affect Exam Const General: cooperative, comfortable and no acute distress Nutritional Appearance: obese morbidly obese Orientation: alert, awake and oriented x3 HENMT Head: normal to inspection Mouth: oral mucosae normal Resp Effort & Inspection: normal respiratory effort Cardio Rate: regular rate Rhythm: regular rhythm Neuro General: moves all extremities and no focal motor deficits Gait: gait assisted Method: walker Motor: muscle tone normal throughout and strength 5/5 throughout Extrem General: full ROM and edema Laterality: bilateral Psych Mental Status: mental status grossly normal Speech and Movement: slowed movement Mood: congruent mood Affect: normal affect DS: Data Vitals/I&O Vitals and I&O: Vital Signs Temperature 36.9 C 08/26/22 12:49 Temperature Source Tympanic 08/26/22 12:49 Pulse 80 08/26/22 12:49 Pulse Rhythm Regular 08/26/22 08:25 Respiratory Rate 19 08/26/22 12:49 Respiratory Effort Labored 08/26/22 08:25 Respiratory Depth Deep 08/26/22 08:25 Respiratory Pattern Irregular 08/26/22 08:25 Blood Pressure 130/79 08/26/22 12:49 Blood Pressure Position Supine 08/24/22 18:07 Pulse Oximetry 96 08/26/22 12:49 Oxygen Delivery Method Room Air 08/26/22 12:49 Oxygen Flow Rate 0 08/26/22 12:49 Pain Level 0 08/26/22 07:56 Comment 08/24/22 22:03 Intake & Output 08/25/22 08/26/22 08/26/22 23:59 11:59 23:59 Intake Total 790 / 800 110 / 110 Output Total 1600 / 2900 900 / 1250 350 / 1250 Balance -810 / -2100 -790 / -1140 -350 / -1140 Weight 140.5 kg Intake: IV 10 / 10 Oral 780 / 780 100 / 100 Output: Urine 1600 / 2900 900 / 1250 350 / 1250 Other: Urine Color Yellow Yellow Yellow Urine Appearance Clear Clear Clear Urine Odor Normal Normal Comment urine was dark yellow Stool Size Copious Stool Characteristics Liquid Voiding Methods Urinal Urinal Bedside Commode Data Completed and Pending Labs on day of discharge: Labs from last 24 hours 08/26/22 05:35 PT 32.5 H INR 3.5 H PFSH All Active Problems Bilateral leg weakness (Acute) Lumbago (Chronic) Non compliance with medical treatment (Acute) Trochanteric bursitis, left hip (Acute) H/O surgical procedure (Chronic) a. Bilateral hip replacement b. Nephrolithotomy c. Right ureteral stent placement d. Coronary artery stent placement 2006 e. Adult circumcision f. Colonoscopy 11/2013 History of revision of total replacement of left hip joint (Acute 11/01/20) Acetabular revision with head/liner exchange for fractured femoral head prosthesis. Pure hypercholesterolemia, unspecified (Acute) Cerumen impaction (Acute) Body mass index (BMI) 50.0-59.9, adult (Acute) Type 2 diabetes mellitus without complications (Chronic) Neoplasm of unspecified behavior of bone, soft tissue, and skin (Acute) Nasal dryness (Acute) Acute cholecystitis (Acute 09/07/14) Morbid obesity (Chronic) CAD (coronary artery disease) (Chronic) a. coronary artery stent placement 2006 Personal history of pulmonary embolism (Chronic) Hypertension (Chronic) TOM (obstructive sleep apnea) (Chronic) Personal history of kidney stones (Chronic) a. uric acid stones Venous stasis ulcer (Chronic) Venous (peripheral) insufficiency (Chronic) H/O bilateral hip replacements (Chronic) Medical History Anticoagulant long-term use Atrial fibrillation A. On Coumadin Venous stasis ulcer of ankle limited to breakdown of skin without varicose veins Social History Smoking/Tobacco Use Status: Former Tobacco Use Smoking risk assessment performed?: Yes Alcohol Intake: current Alcohol Intake frequency: a few times a week Drug use: Never Substance use type: does not use Do you feel safe at home: Yes Do you feel safe in your relationship?: Yes
[2022-08-26] MEDS: Baclofen 10 MG TAB PO (15:00)
[2022-08-26] MEDS: Lidocaine 5% Patch 2 PATCH TP (15:00)
--- NOTE | 2022-08-26 15:17 | PT.INTREAT ---
PT Notes Visit Reasons: Bilateral lwr extremity weakness,DDDlumbar spine Date: 08/26/2022 PRECAUTIONS: Activity as tolerated, Fall SUBJECTIVE: Pt pleasant and agreed to participating with therapy. pt reports that he is lokingforward to going home this afternoon. OBJECTIVE: ? PAIN: Patient c/o back pain post gait training ? BED MOBILITY/TRANSFERS? Supine-sit: Sit-supine: Sit-stand: Supervision? Stand-sit: Supervision ? GAIT? Assistive Device: FWW? Weight bearing: Full Assist: SBA ? Distance:? 30'x2 in p.m.? Deviation: Slow pacing, short step height and length Therapeutic activity 61096: Stair negotiation training to get pt ready for stairs when pt get home, pt able to tolerate 6 steps 4, 4steps on 6 Supervision step to through gait pattern. ASSESSMENT:? Patient tolerated gait training and stair negotiation with pt requiring seated rest break in between activity to accomodate lowback pain with standing weight bearing.? PLAN: Continue with general conditioning and global strengthening for improved mobility and activity tolerance. TREATMENT CODE/TIME: Session 2: 28 minutes; 48342 (1:25pm) ?
--- NOTE | 2022-08-26 15:38 | PDOC.CMDIS ---
- If Service Date Differs Date of service: 08/26/22 Time of Service: 15:38 LACE Index Scoring Tool - Questions: Length of Stay (in days): 2 Acuity (Admit via E.D.?): Yes Comorbidities: PVD, Diabetes w/o Complication, Any Tumor E.D. Visits: 3 - Answers: Total Score: 13 Risk of Readmission: High Risk Care Management Discharge Reason for Hospitalization: Bilateral Lower Extremity Weakness, DDD Lumbar Spine. Discharge Plan: Jimbo will be discharged home with a resumption of PT. He will follow up with his PCP and plan of care as prescribed and transport with his . A referral will be sent to outpatient [place] [facility] [place]. Patient/Family Education Needs: Review of discharge instructions, medications, activity, limitations and discuss Ask Me Three Services Needed at Discharge: Home Health Care Services, Physical Therapy
--- NOTE | 2022-08-27 17:45 | INDS_ITS ---
Date of service: 08/27/22 Time of Service: 17:45 PT Notes Visit Reasons: Bilateral lwr extremity weakness,DDDlumbar spine Physical Therapy Inpatient Discharge Summary Date: 08/27/22 Dates of service: 08/25/2022 through 08/26/2022 This is a clinical summary of care provided for the duration of dates listed above. No charge was made in the completion of this documentation. Referring Doctor:? Dr. Downs PT Orders: PT CONSULT: limited ability to ambulate Precautions: none Patient Profile/Admitting Diagnosis:??Patient presented to the ER yesterday due to LE weakness and inability to ambulate. Admitted for medical management, with PT consult received to assess mobility. PMHX: All Active Problems? Bilateral leg weakness (Acute) Lumbago (Chronic) Non compliance with medical treatment (Acute) Trochanteric bursitis, left hip (Acute) H/O surgical procedure (Chronic) a.? Bilateral hip replacement b.? Nephrolithotomy c.? Right ureteral stent placement d.? Coronary artery stent placement 2006 e.? Adult circumcision f.? Colonoscopy 11/2013History of revision of total replacement of left hip joint (Acute 11/01/20) Acetabular revision with head/liner exchange for fractured femoral head prosthesis.Pure hypercholesterolemia, unspecified (Acute) Cerumen impaction (Acute) Body mass index (BMI) 50.0-59.9, adult (Acute) Type 2 diabetes mellitus without complications (Chronic) Neoplasm of unspecified behavior of bone, soft tissue, and skin (Acute) Nasal dryness (Acute) Acute cholecystitis (Acute 09/07/14) Morbid obesity (Chronic) CAD (coronary artery disease) (Chronic) a.? coronary artery stent placement 2006Personal history of pulmonary embolism (Chronic) Hypertension (Chronic) TOM (obstructive sleep apnea) (Chronic) Personal history of kidney stones (Chronic) a.? uric acid stonesVenous stasis ulcer (Chronic) Venous (peripheral) insufficiency (Chronic) H/O bilateral hip replacements (Chronic) Medical History? Anticoagulant long-term use Atrial fibrillation A.? On CoumadinVenous stasis ulcer of ankle limited to breakdown of skin without varicose veins Social History/Home Situation: Patient lives in a private home with his Leah, who is present at time of consult. He has 3 RAJESH home with bilat rails. states that stairs are difficult at baseline, and that community outings are very fatiguing for Jimbo. He had been participating in outpatient PT as recently as last month, then transitioned to PT after a series of falls. Typically ambulates with FWW. Equipment Owned/DME: FWW, elevated toilet seat Subjective: NT. See most recent [employer] notes. Objective:? General Observation: NT. See most recent INS[employer] notes. Mental Status: NT. See most recent INS[employer] CON[employer]ER notes. ROM: Right Upper Extremity: Shoulder flexion 80*, elbow and wrist motion WNL Left Upper Extremity:? Shoulder flexion 80*, elbow and wrist motion WNL Right Lower Extremity: Hip flexion to 90*. Knee motion grossly WFL Left Lower Extremity:? Hip flexion to 90*. Knee motion grossly WFL Strength: Right Upper Extremity: Shoulder flexion 3-/5. Biceps 4/5. Triceps 4/5. Left Upper Extremity:? Shoulder flexion 3-/5. Biceps 4/5. Triceps 4/5. Right Lower Extremity: Hip flexion 3-/5. Requires mod A right heel slide. ? Quads 4/5. Ankle DF 3/5 or greater. Left Lower Extremity: Hip flexion 3/5. ? Quads 4/5. Ankle DF 3/5 or greater. BED MOBILITY/TRANSFERS? Supine-sit: Supervision Sit-supine: Supervision Sit-stand: Supervision? Stand-sit: Supervision ? GAIT? Assistive Device: FWW? Weight bearing: Full Assist: SBA ? Distance:? 30'x2 in p.m.? Deviation: Slow pacing, short step height and length Balance:? Static Sitting: good Dynamic Sitting: good Static Standing: fair Dynamic Standing: fair Assessment:?? Patient is a 76 year old male referred to physical therapy services with the diagnosis of LE weakness.? Patient presents with progressively worsening mobility over the past couple of weeks, on top of baseline mobility impairments. He has a long history of LBP with DJD (currently awaiting MRI) as well as bilat hip replacements with multiple revisions, both of which are likely contributing to his current mobility issues. He also expresses significant fear of falling after multiple falls at home requiring assist of 3 trash collector truck driver to get him back up. We discussed strengthening efforts at length today, with patient encouraged to participate in exercise program as much as possible to regain strength, even as he awaits further work up in regards to his back. He is at high risk for further loss of mobility if he decreases activity, which I discusse with both he and his . He requires skilled PT intervention to maximize safety and mobility to allow for safe return home, although may require brief rehab stay prior to doing so. Will see how he progresses and continue monitoring for discharge planning. He currently demonstrates the following impairment level findings: 1. Decreased LE strength 2. gait impairments 3. fear of falling with h/o falls 4. chronic LBP, awaiting MRI ?Impairments are contributing to the following functional limitations: 1. unable to ambulate household distances 2. unable to manage stairs into house 3. fear of falling Goals: Goals X1 week 1. Supine-Sit : supervision MET 2. Sit-Supine? : supervision MET 3. Sit-Stand? : supervision MET 4. Stand-Sit? : supervision MET 5. Bed-Chair? : supervision with FWW MET 6. Chair-Bed? : supervision with FWW MET 7. Gait? : supervision with FWW x 25' NOT MET 8. Stairs : ascend and descend x 3 with bilat rails NOT MET DISCHARGE RECOMMENDATIONS: [X] ? Home with HH PT vs SNF for continued rehab prior to returning home TREATMENT CODE/TIME: NC Thank you for the opportunity to participate in the care of this patient. Estrellita Alcazar PT, DPT, CLT [facility] [place], [place]
== END 2022-08-26 15:40 | disposition home health service (06) ==
LOC: ER 21:29 → MS 21:48
PROVIDERS: Family Medicine; Admitting Provider Family Medicine; Emergency Provider Nurse Practitioner Acute Care; PCP Internal Medicine; Visit Provider Family Medicine
DX: R29.898 Other symptoms and signs involving the musculoskeletal system (principal); R53.1 Weakness; M54.50 Low back pain, unspecified; Z96.643 Presence of artificial hip joint, bilateral; E66.01 Morbid (severe) obesity due to excess calories; Z68.41 Body mass index [BMI] 40.0-44.9, adult; E11.9 Type 2 diabetes mellitus without complications; E78.00 Pure hypercholesterolemia, unspecified; Z20.822 Contact with and (suspected) exposure to COVID-19; M70.62 Trochanteric bursitis, left hip; Z95.5 Presence of coronary angioplasty implant and graft; I25.10 Atherosclerotic heart disease of native coronary artery without angina pectoris; I87.2 Venous insufficiency (chronic) (peripheral); G47.33 Obstructive sleep apnea (adult) (pediatric); I10 Essential (primary) hypertension; G89.29 Other chronic pain; E78.5 Hyperlipidemia, unspecified; Z86.711 Personal history of pulmonary embolism; Z79.01 Long term (current) use of anticoagulants
CPT/HCPCS: 36415; 80053; 82550; 85027; 87637; 96374; 97110; 97162; 97530; 99285; 72148; 81003; 81015; 82607; 83735; 84443; 84550; 85610; 99217; 99220; 99226; G0378; J2060

== ENCOUNTER 2022-11-28 10:27 | Inpatient (IN) | payer MEDICARE, BC, SELFPAY ==
[2022-11-28 10:15] VITALS: PULSE 60; RESP 18; TEMP 36.7; O2SAT 96
[2022-11-28 10:23] VITALS: BP 122/64
--- NOTE | 2022-11-28 10:33 | ED.GENADUL_ITS ---
Discharge Plan Disposition Patient Disposition: Admit to [facility] Condition: Stable Discharge Details Chief Complaint: GenMedical Clinical Impression: Ambulatory dysfunction Primary Care Provider: Nick Nettles ED Provider: Gerardo Koehler Home Meds and New Rx's Prescriptions: No Action furosemide 40 MG tablet 20 mg PO BID metoprolol succinate 100 MG tablet extended release 24 hr 200 mg PO DAILY nitroglycerin 0.4 MG tablet, sublingual 0.4 mg Sublingual PRN PRN (Reason: Chest Pain) lisinopril 40 MG tablet 20 mg PO DAILY warfarin [Coumadin] 5 MG tablet 5 mg PO DIRECTED Rx Instructions: 1 tab 6 days/week per INR potassium citrate 10 MEQ tablet extended release 20 meq PO BID allopurinol 300 MG tablet 300 mg PO DAILY Acetaminophen [Tylenol] 650 mg PO Q4H PRN PRNQty: 0 0RF polyethylene glycol 3350 17 gram Powder In Packet 17 g PO DAILY PRN PRN (Reason: Constipation) Qty: 0 0RF Patient Comments: 11/28/22: not taking baclofen 10 mg tablet 10 mg PO TID Qty: 90 0RF polyethylene glycol 3350 17 gram Powder In Packet 17 g PO DAILY PRN PRN (Reason: Constipation) Qty: 0 0RF Patient Comments: 11/28/22: not taking lidocaine 5 % Adhesive Patch,Medicated 2 patch topical DIRECTED Qty: 0 0RF docusate sodium [Colace] 100 mg Capsule 100 mg PO TID PRN PRNQty: 0 0RF diphenhydramine HCl 25 mg Tablet 25 mg PO DIRECTED PRN nystatin 100,000 unit/gram powder 1 applic topical TID celecoxib 100 mg capsule 100 mg PO BID PRN warfarin 4 mg Tablet 4 mg PO DIRECTED Rx Instructions: every friday Jardiance 25 mg Tablet 25 mg PO DAILY AM Medical Decision Making 77-year-old male history of morbid obesity diabetes, chronic mobility issues ambulates with a walker has had multiple falls despite using his walker at home. No discrete injuries moving all extremities 5 out of 5 strength cranial nerves intact afebrile nontoxic; chronic lower back discomfort. Likely component of lumbar radiculopathy versus poor mobility related to obesity must also consider peripheral neuropathy related to diabetes, lower suspicion for CVA cauda equina spinal cord trauma or fracture dislocation of lower extremities. Will obtain screening imaging including x-ray pelvis CT head CT lumbar spine. Patient will need admission for PT OT rehabilitation 11: 41 patient currently being evaluated by PT team 19: 15 patient valued by PT as well as care management. High fall risk if discharged home patient family amenable to admission for placement for rehabilitation. HPI General Date/Time Provider Initiated Documentation: 11/28/22 10:29 . HPI Narrative: 77-year-old male history of morbid obesity, diabetes, chronic ambulation issues uses a walker at home has had multiple falls despite using his walker over the past week, fell today and could not get up from the bathroom floor. Denies discrete trauma however intermittent weakness and poor mobility of his lower extremities for some time Related Data Home Medications Medication Instructions Recorded Confirmed furosemide 40 mg tablet 20 mg PO BID 09/07/14 11/28/22 lisinopril 40 mg tablet 20 mg PO DAILY 09/07/14 11/28/22 metoprolol succinate 100 mg 200 mg PO DAILY 09/07/14 11/28/22 tablet,extended release 24 hr nitroglycerin 0.4 mg sublingual 0.4 mg sublingual PRN PRN Chest 09/07/14 11/28/22 tablet Pain warfarin 5 mg tablet (Coumadin) 5 mg PO DIRECTED 08/29/15 11/28/22 allopurinol 300 mg tablet 300 mg PO DAILY 12/30/16 11/28/22 potassium citrate 10 mEq (1,080 20 meq PO BID 12/30/16 11/28/22 mg) tablet,extended release empagliflozin 25 mg tablet 25 mg PO DAILY AM 10/30/21 11/28/22 (Jardiance) warfarin 4 mg tablet 4 mg PO DIRECTED 10/30/21 11/28/22 Acetaminophen [Tylenol] 650 mg PO Q4H PRN PRN ##0 11/06/21 11/28/22 polyethylene glycol 3350 17 gram 17 g PO DAILY PRN PRN Constipation 11/06/21 08/24/22 oral powder packet #0 ea baclofen 10 mg tablet 10 mg PO TID #90 tabs 08/26/22 11/28/22 docusate sodium 100 mg capsule 100 mg PO TID PRN PRN #0 caps 08/26/22 11/28/22 (Colace) lidocaine 5 % topical patch 2 patch topical DIRECTED #0 ea 08/26/22 11/28/22 polyethylene glycol 3350 17 gram 17 g PO DAILY PRN PRN Constipation 08/26/22 oral powder packet #0 ea celecoxib 100 mg capsule 100 mg PO BID PRN 11/28/22 11/28/22 diphenhydramine HCl 25 mg tablet 25 mg PO DIRECTED PRN 11/28/22 11/28/22 nystatin 100,000 unit/gram topical 1 applic topical TID 11/28/22 11/28/22 powder Previous Rx's Medication Instructions Recorded Acetaminophen [Tylenol] 650 mg PO Q4H PRN PRN ##0 11/06/21 polyethylene glycol 3350 17 gram 17 g PO DAILY PRN PRN Constipation 11/06/21 oral powder packet #0 ea baclofen 10 mg tablet 10 mg PO TID #90 tabs 08/26/22 docusate sodium 100 mg capsule 100 mg PO TID PRN PRN #0 caps 08/26/22 (Colace) lidocaine 5 % topical patch 2 patch topical DIRECTED #0 ea 08/26/22 polyethylene glycol 3350 17 gram 17 g PO DAILY PRN PRN Constipation 08/26/22 oral powder packet #0 ea Allergies Allergy/AdvReac Type Severity Reaction Status Date / Time metformin AdvReac DIARRHEA Verified 11/28/22 16:36 General Stated Complaint: GenMedical NADINE: 3 Review of Systems Narrative: Review of Systems Constitutional: negative Eyes: negative ENT: negative Cardiovascular: negative Respiratory: negative Gastrointestinal: negative : negative Musculoskeletal: Falls Skin: negative Neurologic: negative Psych: negative PFSH All Active Problems (Updated 11/28/22 @ 19:16 by Gerardo Koehler MD) Ambulatory dysfunction (Acute) Bilateral leg weakness (Acute) Lumbago (Chronic) Non compliance with medical treatment (Acute) Trochanteric bursitis, left hip (Acute) H/O surgical procedure (Chronic) a. Bilateral hip replacement b. Nephrolithotomy c. Right ureteral stent placement d. Coronary artery stent placement 2006 e. Adult circumcision f. Colonoscopy 11/2013 History of revision of total replacement of left hip joint (Acute 11/01/20) Acetabular revision with head/liner exchange for fractured femoral head prosthesis. Pure hypercholesterolemia, unspecified (Acute) Cerumen impaction (Acute) Body mass index (BMI) 50.0-59.9, adult (Acute) Type 2 diabetes mellitus without complications (Chronic) Neoplasm of unspecified behavior of bone, soft tissue, and skin (Acute) Nasal dryness (Acute) Acute cholecystitis (Acute 09/07/14) Morbid obesity (Chronic) CAD (coronary artery disease) (Chronic) a. coronary artery stent placement 2006 Personal history of pulmonary embolism (Chronic) Hypertension (Chronic) TOM (obstructive sleep apnea) (Chronic) Personal history of kidney stones (Chronic) a. uric acid stones Venous stasis ulcer (Chronic) Venous (peripheral) insufficiency (Chronic) Medical History Anticoagulant long-term use Atrial fibrillation A. On Coumadin Venous stasis ulcer of ankle limited to breakdown of skin without varicose veins Surgical History (Updated 08/27/22 @ 00:05 by CEDRICK PADRON) H/O bilateral hip replacements Social History Smoking/Tobacco Use Status: Former Tobacco Use Smoking risk assessment performed?: Yes Alcohol Intake: never Drug use: Never Substance use type: does not use Do you feel safe at home: Yes Do you feel safe in your relationship?: Yes Exam Narrative Exam Narrative: Physical Examination General: alert, awake, cooperative, resting comfortably, no acute distress HEENT: normocephalic, atraumatic; PERRL, EOM intact, conjunctiva normal; no nasal discharge; moist mucous membranes, oral and pharyngeal mucosa normal, tolerating secretions Neck: supple, trachea midline; full ROM Chest: normal to inspection Respiratory: normal respiratory effort, speaking in full sentences, clear to auscultation, no wheezing, rales or rhonchi Cardiac: regular rate, regular rhythm, S1S2 intact, no murmurs rubs or gallops GI: abdomen soft, non-tender, non-distended; no palpable mass or hepatosplenomegaly Skin: no lesions, rashes or trauma appreciated Neuro: AAOx3, normal speech, moving all extremities; 5 and 5 strength upper and lower extremities however poor mobility of his lower extremities due to habitus Extremities: No signs of trauma Psych: Appropriate mood and affect Course Vital Signs Vital signs: Vital Signs Temperature 36.7 C 11/28/22 10:15 Pulse 60 11/28/22 10:15 Respiratory Rate 18 11/28/22 10:15 Pulse Oximetry 96 11/28/22 10:15 Temperature 36.7 C 11/28/22 10:15 Temperature Source Temporal Artery Scan 11/28/22 10:15 Pulse 60 11/28/22 10:15 Respiratory Rate 18 11/28/22 10:15 Respiratory Effort Normal, Non-Labored 11/28/22 10:22 Blood Pressure 122/64 11/28/22 10:23 Pulse Oximetry 96 11/28/22 10:15 Oxygen Delivery Method Room Air 11/28/22 10:15 Oxygen Flow Rate 0 11/28/22 10:15
[2022-11-28 11:13] LABS: Bilirubin Negative (Negative); Blood Negative (Negative); Clarity Clear (Clear); Glucose >=1000 mg/dL (Negative); Ketones Negative (Negative); Leukocyte Esterase Negative (Negative); Nitrite Negative (Negative); Specific Gravity 1.015 (1.005-1.025); Urobilinogen 0.2 mg/dL (Up to 0.2); pH 5.5 (5-8)
[2022-11-28 11:19] LABS: Abs Immature Grans 0.07 10^3/uL (0.0-0.06); Absolute Basophil Count 0.09 10^3/uL (0.0-0.2); Absolute Eosinophil Count 0.04 10^3/uL (0.0-0.7); Absolute Lymphocyte Count 0.83 10^3/uL (1.2-3.4); Absolute Monocyte Count 0.56 10^3/uL (0.1-0.8); Absolute Neutrophil Count 8.88 10^3/uL (1.2-6.7); Basophils % 0.9; Eosinophils % 0.4; HGB 18.6 g/dL (13.5-17.5); Immature Grans % 0.7; Lymphocytes % 7.9; MCH 30.9 pg (27.0-33.0); MCHC 32.6 % (32.0-36.0); MCV 95 fL (80-95); MPV 9.2 fL (8.0-11.0); Monocytes % 5.3; Neutrophils % 84.8; Platelet Count 250 10^3/uL (130-400); RBC 6.01 10^6/uL (4.36-5.78); RDW 15.5 % (11.8-14.1); RDW-SD 53.9 fL; WBC 10.47 10^3/uL (4.4-10.8)
[2022-11-28 11:22] LABS: HCT 57.1 % (40.0-50.0)
[2022-11-28 11:27] LABS: Bacteria Negative HPF (Negative); C & S Indicated? No; Casts 0-2 Hyaline LPF (Negative); Crystals Negative HPF (Negative); Epithelial Cells Rare HPF (Negative); Mucus Negative (Negative); RBC Negative HPF (0-2); WBC Negative HPF (0-5)
[2022-11-28 11:46] LABS: ALT 35 U/L (16-63); AST 23 U/L (15-37); Albumin 3.1 g/dL (3.4-5.0); Alkaline Phosphatase 121 U/L (46-116); Anion Gap 6.8 mmol/L (3-11); BUN 23 mg/dL (7-18); Bilirubin, Total 0.7 mg/dL (0.2-1.0); CO2 27.2 mmol/L (21.0-32.0); CREATININE 0.9 mg/dL (0.70-1.30); Chloride 109 mmol/L (98-107); Estimated GFR 89.07 (mL/min/1.73m2); Glucose 164 mg/dL (74-106); Potassium 3.9 mmol/L (3.5-5.1); Sodium 143 mmol/L (136-145); Total Protein 6.7 g/dL (6.4-8.2)
--- NOTE | 2022-11-28 12:52 | IN_ITS ---
PT Emergency Department Note Patient Location: Emergency Room Referring Provider: PT Diagnosis: Frequent falls. Diagnosis: frequent falls Date of Service: November 28, 2022 10:27 Subjective: Patient complains of generalized weakness and fear of falling. Complains of pain offered other than his chronic lumbago. Objective: 77-year-old male with morbid obesity, diabetes and multiple falls over the past couple years. He has had 3 this past week, most recently earlier today when walking to the bathroom. He notes that there is no pain associated with it is just that his legs gave out. Functional mobility: He requires assistance of 2 people assuming the supine to sitting positions. He requires standby supervision of 2 people with assuming sitting to standing positions and vice versa. He has an electric hospital bed l at home and is generally able to get in the bed independently and occasionally some assist with getting in. He has home health aide coming a few times per week assisting him with his ADLs. Gait: He is to the bedside with a front wheeled walker with minimal contact guarding to people and is stable. I had him shift weight from 1 foot to the other and then marching in place. Once he develops confidence, I had him walk approximately 3 feet forward and backwards, again with contact guarding, and he fatigued and expressed some fear of his legs giving out. Articular: His active shoulder moves approximately 135 degrees without pain on movement and rotation is full. He does have some crepitation in the left shoulder with movement and endrange. Bilateral elbow forearm wrist and digit movements have good functional range, and bilateral hip and knee motion is nonirritable. Neuro: Reflexes not tested, he has full motor control throughout. Strength: His upper extremity strength is +4/5, bilateral quads at 4/5 and ankle musculature 5/5. His hip flexors are 2/5. Treatment: 10429/97 [id number] Treatment time: 45 minutes Assessment: Patient required assistance with his bed mobility, and ambulation w ith just limited to a couple feet before he fatigue. He was stable on his feet, but required standby supervision of 2 people for security reasons. He feels that he is unable to return home for fear of further falls, and is receptive to in-house/extended care facility rehabilitation. This was discussed with his ER physician. Plan: Today session consisted of assessment of his functional status and gait. Recommended that he is admitted to a more supervised environment for rehabilitation. Disclaimer: This note was created using [employer] voice recognition software. It was reviewed for major content. However, there may be multiple small discrepancies and errors due to the voice recognition aspects of the software.
--- NOTE | 2022-11-28 13:05 | DI.CT_ITS ---
Exam(s) CT HEAD WO EXAM: CT HEAD WO CLINICAL HISTORY: multiple falls. TECHNIQUE: Imaging Protocol: Axial computed tomography images with coronal and sagittal reformatted images were created and reviewed COMPARISON: No priors for comparison. FINDINGS: Ventricles and Extra axial spaces: Normal in size and morphology for the patient's age. Hemorrhage: None. Cerebral parenchyma: No evidence of an acute territorial infarct. There are areas of decreased atten uation in the white matter most consistent with small vessel ischemic disease. Midline shift: None. Brainstem/Cerebellum: Normal. Calvarium: Normal. Visualized Paranasal sinuses/Mastoids: Near complete opacification is seen of the right maxillary sin us. The remaining visualized paranasal sinuses are clear as are the mastoid air cells. Soft Tissues: Unremarkable. IMPRESSION: 1. No acute intracranial process. 2. Findings were discussed with Dr. Koehler at 1:31 p.m. on 11/28/2022. RADIATION DOSE DELIVERED: 948.19mGy.cm Total DLP DATA REPOSITORY: All CT scans at this facility are submitted to the National Radiology Data Registry (NRDR) Dose Index Registry (DIR) with the [employer] (A[employer]). RADIATION OPTIMIZATION: All CT scans at this facility use at least one of these dose optimization te chniques: automated exposure control; mA and/or kV adjustment per patient size (includes targeted exa ms where dose is matched to clinical indication); or iterative reconstruction.
--- NOTE | 2022-11-28 13:10 | DI.CT_ITS ---
Exam(s) CT LUMBAR SPINE WO EXAM: CT LUMBAR SPINE WO CLINICAL HISTORY: falls, back pain. TECHNIQUE: Imaging Protocol: Axial computed tomography images with coronal and sagittal reformatted images were created and reviewed. COMPARISON: CT ABD PELVIS WITH CONTRAST from 08/29/[address] LUMBAR SPINE WO from 10/30/2021 FINDINGS: Bones: No fractures or dislocations are seen. There is a left convex curvature of the lumbar spine. There is an old T11 compression fracture deformity noted. Moderately severe degenerative changes are present throughout the lumbar spine. The bones are osteopenic. There are bilateral total hip repla cements. Soft tissues: There is diverticulosis seen in the colon, no evidence of acute diverticulitis. Athero sclerosis is present. There is stable nodularity of the adrenal glands. IMPRESSION: 1. No acute fracture or subluxation in the lumbar spine. 2. Findings were discussed with the emergency department at 01:38 p.m. on 11/28/2022. RADIATION DOSE DELIVERED: 1,745.97mGy.cm Total DLP 1,745.97mGy.cm Total DLP DATA REPOSITORY: All CT scans at this facility are submitted to the National Radiology Data Registry (NRDR) Dose Index Registry (DIR) with the [employer] (ACR). RADIATION OPTIMIZATION: All CT scans at this facility use at least one of these dose optimization te chniques: automated exposure control; mA and/or kV adjustment per patient size (includes targeted exa ms where dose is matched to clinical indication); or iterative reconstruction.
--- NOTE | 2022-11-28 13:20 | DI.RAD_ITS ---
Exam(s) XR PELVIS AP EXAM: XR PELVIS AP CLINICAL HISTORY: multiple falls. TECHNIQUE: 2D digital imaging was performed. Two views were obtained. COMPARISON: CR,XR XR HIP PELVIS ADULT BL from 10/30/2021 FINDINGS: BONES: No acute fracture is present. No bony destructive lesion is seen. JOINTS: No dislocation present. There are stable posttraumatic and postsurgical changes seen in the p pamela. SOFT TISSUE: Atherosclerosis is present. IMPRESSION: Stable posttraumatic and postsurgical changes in the pelvis. No acute abnormality. DATA REPOSITORY: RADIATION DOSE DELIVERED:
[2022-11-28 14:46] VITALS: BP 141/79; PULSE 67; TEMP 36.4; O2SAT 99
--- NOTE | 2022-11-28 15:54 | PDOC.ERCMIN ---
- If Service Date Differs Date of service: 11/28/22 Time of Service: 15:54 Care Management Initial Assess REASON FOR HOSPITALIZATION:: Ambulatory dysfunction, dehydration, frequent falls, weakness PAST MEDICAL HISTORY/PAST SURGICAL HISTORY:: All Active Problems: Bilateral leg weakness (Acute). Lumbago (Chronic). Non compliance with medical treatment (Acute). Trochanteric bursitis, left hip (Acute). H/O surgical procedure (Chronic): a. Bilateral hip replacement, b. Nephrolithotomy, c. Right ureteral stent placement, d. Coronary artery stent placement 2006, e. Adult circumcision, and. f. Colonoscopy 11/2013. History of revision of total replacement of left hip joint (Acute 11/01/20) - Acetabular revision with head/liner exchange for fractured femoral head prosthesis. Pure hypercholesterolemia, unspecified (Acute). Cerumen impaction (Acute). Body mass index (BMI) 50.0-59.9, adult (Acute). Type 2 diabetes mellitus without complications (Chronic). Neoplasm of unspecified behavior of bone, soft tissue, and skin (Acute). Nasal dryness (Acute). Acute cholecystitis (Acute 09/07/14). Morbid obesity (Chronic). CAD (coronary artery disease) (Chronic) - a. coronary artery stent placement 2006. Personal history of pulmonary embolism (Chronic). Hypertension (Chronic). TOM (obstructive sleep apnea) (Chronic). Personal history of kidney stones (Chronic) - a. uric acid stones. Venous stasis ulcer (Chronic). Venous (peripheral) insufficiency (Chronic). Medical History: Anticoagulant long-term use. Atrial fibrillation - A. On Coumadin. Venous stasis ulcer of ankle limited to breakdown of skin without varicose veins. Surgical History: H/O bilateral hip replacements. PREVIOUS FUNCTIONAL STATUS/SOCIAL/FAMILY SUPPORTS:: Jimbo lives in [facility] with his , Leah. 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 He reports having lots of friends who he enjoys talking to on the phone and visiting with. He no longer drives but is independent with his ADLs at baseline. CURRENT FUNCTIONAL STATUS:: Jimbo is lying down when CM comes to meet with him. His , Leah, is present in the room. Jimbo states he fell at home and the ambulance had to be called as his could not help him up. He does not feel safe returning home and expresses a desire to go to the [facility] for rehab. We discuss Medicare requirements for inpatient admission to the hospital and rehab. At Jimbo and his 's request, CM sends a referral to the [facility]. ADVANCE DIRECTIVES:: None on file; patient was provided with an Advance Directives form at last hospitalization. Has patient been provided with info about the portal/API?: Yes Did the patient sign up for the portal?: Yes (Previously enrolled) CODE STATUS:: Full Code INSURANCE COVERAGE / FINANCIAL ISSUES:: Medicare. CURRENT HOME/COMMUNITY SERVICES/EQUIPMENT:: FWW, cane, toilet seat riser, and Bipap machine. PRIMARY CARE PHYSICIAN:: Nick Nettles MD. POTENTIAL DISCHARGE NEEDS:: Follow up appointment with PCP and short-term rehab. PATIENT/FAMILY EDUCATION NEEDS:: Review of discharge instructions and discuss Ask Me Three. ANTICIPATED BARRIERS TO DISCHARGE:: None. TRANSPORTATION:: Dependent on disposition. PLAN:: Plan is undetermined at this time. Patient is requesting short term rehab at the [facility]. PT/OT will assess his ability to safely return home vs. need for short term rehab. CM will continue to follow.
[2022-11-28 17:42] VITALS: BP 135/78; PULSE 74; RESP 18; TEMP 36.7; O2SAT 98
--- NOTE | 2022-11-28 19:57 | HPE_ITS ---
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 Will consult P.T. and O.T. to evaluate and treat him. Will ask CM to assist w/ placement in SNF as he will need [facility] rehabilitation Professional time spent interviewing and examining patient, discussion of goals of care with hospital team (care management, nursing and consulting professionals) was 60 minutes. (2) Ambulatory dysfunction: Status: Acute Assessment and plan: as above (3) Lumbago: Status: Chronic Assessment and plan: continue home meds for treatment of pain. Patient was scheduled to see Dr. Lopez for injections. We could consider consulting him if he is willing to see the patient as an inpatient. (4) Type 2 diabetes mellitus without complications: Status: Chronic Assessment and plan: continue his Jardiance although this may have been added for HFREF, last echo we have is from 01/13/17 which demonstrated LVEF 45% adn severe LVH diffuse hypokinesis, w/ severe hypokinetic basal inferior wall, mod. MR, dilated RV w/ mod to severely reduced RV function. I have added sliding scale insulin and glucose checks AC/HS. will get glycohemoglobin A1c in the morning. (5) TOM (obstructive sleep apnea): Status: Chronic Assessment and plan: Continue home CPAP unit (6) Hypertension: Status: Chronic Assessment and plan: Continue home medications including lisinopril 20 mg daily and metoprolol succinate 200 mg daily. (7) CAD (coronary artery disease): Status: Chronic Assessment and plan: not having any ischemia symptoms. cont. home meds (8) Atrial fibrillation: Assessment and plan: chronic afib. rate controlled. no symptoms of palpitations, racing heart of dizziness or LOC. continue metoprolol and warfarin; INR high at 3.5. He says that it was 2.6 earlier in the week. He is currently taking warfarin 5 mg daily. Prior to this he was taking 5 mg alternate w/ 4 mg. I will hold for tonight, repeat INR in the morning (and daily) and then his warfarin can be resumed as long as not rising over 3.5. goal is INR of 2.5 to 3. (9) HFrEF (heart failure with reduced ejection fraction): Status: Chronic Assessment and plan: not one of his listed diagnosis but I pulled up his echo from 01/13/2017 that demonstrated the following: Summary: 1. Study data: Comparison was made to the study of 04/19/2015. EF ?? 55-60%. RV normal. Severe MAXIMO. 2. Left ventricle: The cavity size was normal. Wall thickness was ?? increased in a pattern of severe LVH. The estimated ejection fraction ?? was 45%. Diffuse hypokinesis. Severe hypokinesis of the basalinferior ?? myocardium. 3. Mitral valve: There was moderate regurgitation. 4. Left atrium: The atrium was severely dilated. 5. Right ventricle: The cavity size was mildly dilated. Systolic ?? function was moderately to severely reduced. 6. Right atrium: The atrium was severely dilated. 7. Atrial septum: No defect or patent foramen ovale was identified. 8. Pulmonary arteries: Pulmonary systolic pressure was >= 15mm Hg. 9. Inferior vena cava: Poorly visualized. He is suppose to take his lasix twice a day but he often skips his afternoon dose or even skips it altogether because he does not want to be voiding all day and night.. This is why he probably has chronic leg edema. History of Present Illness History of Present Illness Chief Complaint: falling down, weakness Narrative: 77 yr old male w/ morbid, DM w/ peripheral neuropathy, w/ chronic mobility issues who ordinarily ambulates w/ a walker. He presents to the E.D. today after multiple falls at home requiring multiple EMS visits for assists back to bed. He denies any injuries ot his head or limbs. Workup in the E.D. included routine labs (UA, CBC, CMP, FLUVID). Labs were remarkable for mild azotemia (but not out of his prior range of BUN) and polycythemia (again similar Hb in the past). UA remarkable for proteinuria and glycosuria but no ketones.CT of head noncontrast and lumbar spine and pelvix xray were done. CT head showed no acute intracranial process. CT of LS spine showed no acute fractures or subluxation of the LS spine. Pelvic xray was negative. P.T. was consulted and evaluated him in the E.D. and found that he required assistance w/ bed. The hospitalist service was asked to admit him for his generalized weakness for inpatient rehab and SNF placement. Per the patient he had been doing home P.T. and had been getting around w/ a walker but over past several weeks has been declining. He says that his legs will feel like spaghetti and they will give out on him. 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 He is now seeing Dr. Lopez in pain management who plans to do epidural steroid injections according to the patient. Last MRI of his LS spine done at [facility] was on 10/30/21 and demonstrated L1-L2 disc herniation and moderate central canal stenosis of L4-L5 and T11 vertebral compression fracture. Review of Systems All systems reviewed & are unremarkable except as noted in HPI and below Constitutional Constitutional: Reports frequent falls and Reports weakness ENT Ears, Nose, Mouth, and Throat: Denies vertigo, Denies dizziness and Reports disequilibrium Cardiovascular Cardiovascular: Denies chest pain, Denies chest pain with activity, Denies syncope, Denies rapid heart rate, Reports irregular heart rhythm and Reports dyspnea on exertion Respiratory Respiratory: Denies chest congestion and Reports dyspnea on exertion Gastrointestinal Gastrointestinal: Reports system reviewed and no additional complaints, except as documented Musculoskeletal Musculoskeletal: Reports back pain and Denies numbness Neurologic Neurologic: Denies abnormal speech, Denies vertigo, Denies dizziness, Denies syncope, Reports frequent falls, Denies numbness, Denies paresthesias, Reports disequilibrium and Reports weakness PFSH All Active Problems (Updated 11/28/22 @ 22:10 by Nasir Rivers MD) HFrEF (heart failure with reduced ejection fraction) (Chronic) Ambulatory dysfunction (Acute) Bilateral leg weakness (Acute) Lumbago (Chronic) Non compliance with medical treatment (Acute) Trochanteric bursitis, left hip (Acute) H/O surgical procedure (Chronic) a. Bilateral hip replacement b. Nephrolithotomy c. Right ureteral stent placement d. Coronary artery stent placement 2006 e. Adult circumcision f. Colonoscopy 11/2013 History of revision of total replacement of left hip joint (Acute 11/01/20) Acetabular revision with head/liner exchange for fractured femoral head prosthesis. Pure hypercholesterolemia, unspecified (Acute) Cerumen impaction (Acute) Body mass index (BMI) 50.0-59.9, adult (Acute) Type 2 diabetes mellitus without complications (Chronic) Neoplasm of unspecified behavior of bone, soft tissue, and skin (Acute) Nasal dryness (Acute) Acute cholecystitis (Acute 09/07/14) Morbid obesity (Chronic) CAD (coronary artery disease) (Chronic) a. coronary artery stent placement 2006 Personal history of pulmonary embolism (Chronic) Hypertension (Chronic) TOM (obstructive sleep apnea) (Chronic) Personal history of kidney stones (Chronic) a. uric acid stones Venous stasis ulcer (Chronic) Venous (peripheral) insufficiency (Chronic) Medical History Anticoagulant long-term use Atrial fibrillation A. On Coumadin Venous stasis ulcer of ankle limited to breakdown of skin without varicose veins Surgical History (Updated 08/27/22 @ 00:05 by CEDRICK PADRON) H/O bilateral hip replacements Social History Smoking/Tobacco Use Status: Former Tobacco Use Smoking risk assessment performed?: Yes Alcohol Intake: never Drug use: Never Substance use type: does not use Do you feel safe at home: Yes Do you feel safe in your relationship?: Yes Meds Allergies and Home Medications Allergies Allergy/AdvReac Type Severity Reaction Status Date / Time metformin AdvReac DIARRHEA Verified 11/28/22 16:36 Home Medications Medication Instructions Recorded Confirmed Type furosemide 40 mg tablet 20 mg PO BID 09/07/14 11/28/22 History lisinopril 40 mg tablet 20 mg PO DAILY 09/07/14 11/28/22 History metoprolol succinate 100 mg 200 mg PO DAILY 09/07/14 11/28/22 History tablet,extended release 24 hr nitroglycerin 0.4 mg sublingual 0.4 mg sublingual PRN PRN Chest 09/07/14 11/28/22 History tablet Pain warfarin 5 mg tablet (Coumadin) 5 mg PO DIRECTED 08/29/15 11/28/22 History allopurinol 300 mg tablet 300 mg PO DAILY 12/30/16 11/28/22 History potassium citrate 10 mEq (1,080 20 meq PO BID 12/30/16 11/28/22 History mg) tablet,extended release empagliflozin 25 mg tablet 25 mg PO DAILY AM 10/30/21 11/28/22 History (Jardiance) warfarin 4 mg tablet 4 mg PO DIRECTED 10/30/21 11/28/22 History Acetaminophen [Tylenol] 650 mg PO Q4H PRN PRN ##0 11/06/21 11/28/22 Rx polyethylene glycol 3350 17 gram 17 g PO DAILY PRN PRN Constipation 11/06/21 08/24/22 Rx oral powder packet #0 ea baclofen 10 mg tablet 10 mg PO TID #90 tabs 08/26/22 11/28/22 Rx docusate sodium 100 mg capsule 100 mg PO TID PRN PRN #0 caps 08/26/22 11/28/22 Rx (Colace) lidocaine 5 % topical patch 2 patch topical DIRECTED #0 ea 08/26/22 11/28/22 Rx polyethylene glycol 3350 17 gram 17 g PO DAILY PRN PRN Constipation 08/26/22 Rx oral powder packet #0 ea celecoxib 100 mg capsule 100 mg PO BID PRN 11/28/22 11/28/22 History diphenhydramine HCl 25 mg tablet 25 mg PO DIRECTED PRN 11/28/22 11/28/22 History nystatin 100,000 unit/gram topical 1 applic topical TID 11/28/22 11/28/22 History powder Exam Narrative Exam Narrative: Morbidly obese pleasant elderly gentleman lying in bed in no acute distress. He is alert and oriented person place and circumstance. HEENT is unremarkable mucous membranes are moist no exudate Neck is supple no JVD, palpable carotid pulses that are irregular but at a controlled rate no bruits no adenopathy no thyromegaly Lungs are clear to auscultation Heart is irregularly irregular and controlled rate no appreciable murmur rub or gallop. Abdomen obese soft nontender normal bowel sounds no organomegaly no palpable masses no bruits Lower extremities with chronic venous stasis skin changes with bronze discoloration of the pretibial surfaces. No open ulcers. Pedal pulses are pa lpable but diminished. No acral cyanosis. Neuro exam he has normal strength and range of motion of both upper extremities with normal hand odd piece checker strength normal forearm strength and normal shoulder st rength with abduction and abduction and normal extension of flexion at the elbows. Lower extremities reveal normal dorsiflexion plantarflexion of his feet. Patient has pretty good strength with knee extension and flexion but the right hip is weak compared to the left with extension and flexion. Sensation is grossly intact to light touch. DTRs were not tested. He has no focal cranial nerve deficits. Results Labs 11/28/22 11:10 11/28/22 11:10 Labs: Laboratory Results - last 24 hr 11/28/22 11/28/22 11/28/22 10:55 11:10 11:10 WBC 10.47 RBC 6.01 H Hgb 18.6 H Hct 57.1 H* MCV 95 MCH 30.9 MCHC 32.6 RDW 15.5 H Plt Count 250 MPV 9.2 Immature Gran % 0.7 Neutrophils % 84.8 Lymphocytes % 7.9 Monocytes % 5.3 Eosinophils % 0.4 Basophils % 0.9 Nucleated RBC % 0.0 Absolute Neutrophils 8.88 H Absolute Lymphocytes 0.83 L Absolute Monocytes 0.56 Absolute Eosinophils 0.04 Absolute Basophils 0.09 Sodium 143 Potassium 3.9 Chloride 109 H Carbon Dioxide 27.2 Anion Gap 6.8 BUN 23 H Creatinine 0.9 Est GFR (CKD-EPI 2020) 89.07 Glucose 164 H Calcium 9.0 Total Bilirubin 0.7 AST 23 ALT 35 Alkaline Phosphatase 121 H Total Protein 6.7 Albumin 3.1 L Urine Color Yellow Urine Clarity Clear Urine pH 5.5 Ur Specific [place] 1.015 Urine Protein 100 H Urine Ketones Negative Urine Blood Negative Urine Nitrite Negative Urine Bilirubin Negative Urine Urobilinogen 0.2 Ur Leukocyte Esterase Negative Urine RBC Negative Urine WBC Negative Ur Epithelial Cells Rare Urine Crystals Negative Urine Bacteria Negative Urine Casts 0-2 Hyaline Urine Mucus Negative Ur Culture Indicated? No Urine Glucose >=1000 H Last Vital Signs Temp 36.7 C 11/28/22 17:42 Pulse 74 11/28/22 17:42 Resp 18 11/28/22 17:42 BP 135/78 11/28/22 17:42 Pulse Ox 98 11/28/22 17:42 Time Spent Time spent with Patient: 55-74 minutes Time was spent: preparing to see the patient(eg.review tests), obtaining and/or reviewing separately otained hiistory, ordering medications,tests, procedures, indepentently interpreting results, counseling the patient and care coordination
[2022-11-28 20:33] LABS: Source Nasal/Nares
[2022-11-28 20:51] VITALS: BP 148/82; PULSE 64; RESP 18; TEMP 36.9; O2SAT 100
[2022-11-28 21:11] LABS: COVID-19 PCR Negative (Negative)
[2022-11-28] MEDS: Normal Saline Flush 10 ML SYR IVP (21:33)
[2022-11-28] MEDS: Enoxaparin 40 MG/0.4 ML SYR SC (21:33)
[2022-11-28 23:17] VITALS: BP 138/79; PULSE 69; RESP 20; TEMP 36.9; O2SAT 100
[2022-11-28] MEDS: Acetaminophen 325 MG TAB PO (23:30)
[2022-11-29] MEDS: Empaglifozin 25 MG TAB PO (06:22)
[2022-11-29 07:30] LABS: Anion Gap 9.1 mmol/L (3-11); BUN 20 mg/dL (7-18); CO2 24.9 mmol/L (21.0-32.0); CREATININE 0.8 mg/dL (0.70-1.30); Calcium 9.5 mg/dL (8.5-10.1); Calculated LDL 115 mg/dL (<100); Chloride 105 mmol/L (98-107); Cholesterol 195 mg/dL (<200); Estimated GFR 92.29 (mL/min/1.73m2); Glucose 103 mg/dL (74-106); HDL Cholesterol 44 mg/dL (40-60); Potassium 3.6 mmol/L (3.5-5.1); Sodium 139 mmol/L (136-145); Triglyceride 183 mg/dL (<150)
[2022-11-29 07:43] VITALS: BP 149/73; PULSE 71; RESP 18; TEMP 36.5; O2SAT 96
[2022-11-29 07:47] LABS: INR 2.8 (0.9-1.1); Prothrombin Time 27.9 sec (9.3-11.0)
[2022-11-29] MEDS: Potassium Chloride 10 MEQ CAPCR 20 MEQ PO ×2 (08:59→20:49)
[2022-11-29] MEDS: Metoprolol CR 100 MG TABCR 200 MG PO (09:01)
[2022-11-29] MEDS: Celecoxib 100 MG CAP PO ×2 (09:02→20:48)
[2022-11-29] MEDS: Allopurinol 300 MG TAB PO (09:02)
[2022-11-29] MEDS: Baclofen 10 MG TAB PO ×3 (09:02→20:48)
[2022-11-29] MEDS: Furosemide 40 MG TAB 20 MG PO ×2 (09:02→15:12)
[2022-11-29] MEDS: Lisinopril 20 MG TAB PO (09:02)
[2022-11-29] MEDS: Docusate Sodium 100 MG CAP PO ×2 (09:03→20:49)
[2022-11-29] MEDS: Insulin Aspart 300 UNITS/3 ML PEN SC ×4 (09:08→17:25)
[2022-11-29] MEDS: Nystatin POWDER 15 GM JAR TP ×3 (09:11→22:46)
--- NOTE | 2022-11-29 09:26 | CMPROGNOTE_ITS ---
- If Service Date Differs Date of service: 11/29/22 Time of Service: 10:17 Care Management Progress Note S/O: Jimbo was sitting up in bed reading when CM visited with him. He stated that he is feeling good, and happy to have his care at [facility]. CM contacted the [facility], where his referral was sent yesterday, and they have accepted him for admission on Friday. Jimbo is happy with this plan, and is looking forward to short term rehab at the [facility]. He will remain inpatient through the weekend, and will transport to the [facility] on Friday. CM will continue to follow. A: Jaime is a 77 year old male admitted to [facility] on 11/28/22 with ambulatory dysfunction, frequent falls, weakness. P: Jaime will likely transfer to the [facility] on Friday, as he has a bed offer pending insurance PA. He will transport via [facility] w/c van vs with family. He will follow up with his PCP and discharge plan of care. CM will continue to follow.
--- NOTE | 2022-11-29 09:26 | PDOC.CMPRO ---
- If Service Date Differs Date of service: 11/29/22 Time of Service: 10:17 Care Management Progress Note S/O: Jimbo was sitting up in bed reading when CM visited with him. He stated that he is feeling good, and happy to have his care at [facility]. CM contacted the [facility], where his referral was sent yesterday, and they have accepted him for admission on Friday. Jimbo is happy with this plan, and is looking forward to short term rehab at the [facility]. He will remain inpatient through the weekend, and will transport to the [facility] on Friday. CM will continue to follow. A: Jaime is a 77 year old male admitted to [facility] on 11/28/22 with ambulatory dysfunction, frequent falls, weakness. P: Jaime will likely transfer to the [facility] on Friday, as he has a bed offer pending insurance PA. He will transport via [facility] w/c van vs with family. He will follow up with his PCP and discharge plan of care. CM will continue to follow.
[2022-11-29 09:36] LABS: Hemoglobin A1C 6.2 % (<5.7)
--- NOTE | 2022-11-29 11:47 | CHAPLAIN ---
Jimbo was on the phone with the [facility] when visited. His Leah and his sister were with him. He was admitted through the ED last night and will likely be discharged to the [facility] on Friday. He fell at home and Leah was unable to assist enough to get him up so EMS was called. Jimbo has diabetes, neuropathy and is morbidly obese according to ED notes and has agreed to go to the [facility] for rehab. Both Jimbo and Lisa are Buddhists. I will continue to visit.
--- NOTE | 2022-11-29 12:18 | W.NUTCONSULT ---
Date of service: 11/29/22 Time of Service: 12:18 Nutritional Consult ASSESSMENT: Received nutrition consult. Unclear why nutrition needs to intervene. A1C: 6.2% and at target. Have meet with Jaime several times at past admissions. Diabetes well controlled. Following diabetic diet with good intake. Admitted with weakness, mobility issues. Has been provided outpatient counseling for morbid obesity in past but has declined. Will be available prn. Time Spent in Nutritional Counseling and Treatment: 0
--- NOTE | 2022-11-29 14:44 | WOUNDCONS ---
- If Service Date Differs Date of service: 11/29/22 Time of Service: 14:30 Wound Initial Evaluation Narrative: This is a 77 yom. he presents to the ED after an extended period of weakness and falls. He has a hx significant for Lumbago, morbid obesity, TOM, HTN, CAD,A-Fib. He also has had a HX of statis ulcers bilaterally. Patient has had an order for lasix at home, but has not been fully compliant with the ordered dosing, thus resulting in increased edema. He is seen by home health and they have been applying UNNA boots for the past year. There are no open ulcerations on the legs at this time. I see no reason to change treatment, but to add further compression and encourage elevation. Also reported to have a small open area on the sacrum, . He consents to the consult. H&P, labs and other information have been reviewed Body Four View: 1 - edema 2 - edema 3 - stage 3 - Wound Right Lower Tib/Fib(lower leg) Wound Type: Statis Ulcer Wound General Appearance: Well Approximated, Reddened, Healing Well Wound Bed Greatest Portion: Red (Granulation) Wound Surrounding Tissue Appearance: Dark Red Percent of Wound Bed Granulated/Red: 100 Wound Length: 48 cm Wound Width: 37 cm Wound Depth: 0.1 cm (less than) Wound Drainage Amount: None Wound Drainage Description: No drainage Wound Topical Solution/Irrigant: Saline Irrigant Wound Debridement Method: Gauze Wound Debridement Result: Healthy Tissue Revealed Wound Debridement Amount of Tissue Removed: None Left Lower Tib/Fib(lower leg) Wound Type: Statis Ulcer, Other (edema) Wound General Appearance: Well Approximated Wound Bed Greatest Portion: Red (Granulation) Wound Surrounding Tissue Appearance: Dark Red Percent of Wound Bed Granulated/Red: 100 Wound Length: 43 cm Wound Width: 35.5 cm Wound Depth: 0.1 cm (less than) Wound Drainage Odor: None/Absent Wound Drainage Description: No drainage Wound Topical Solution/Irrigant: Saline Irrigant Wound Debridement Method: Gauze Wound Debridement Result: Healthy Tissue Revealed Wound Debridement Amount of Tissue Removed: None left gluteal fold Wound Type: Pressure Ulcer Pressure Ulcer Stage: III Wound General Appearance: Reddened, Bleeding, Unapproximated Wound Bed Greatest Portion: Red (Granulation) Wound Bed Lesser Portion: Pale [place] Wound Surrounding Tissue Appearance: Blanched/Dull Percent of Wound Bed Granulated/Red: 95 Wound Length: 2.7 cm Wound Width: 1.3 cm Wound Depth: 0.2 cm Wound Drainage Amount: Minimal Wound Drainage Description: Bloody Wound Topical Solution/Irrigant: Saline Irrigant Wound Debridement Method: Gauze Wound Debridement Result: Healthy Tissue Revealed Wound Debridement Amount of Tissue Removed: Minimal - Circulation, Sensation, Motion Edema Degree: 2+ Peripheral Pulse Strength: Normal Capillary Refill: Less than 3 seconds Sensation Description: Within Normal Limits Skin Temperature: Cool Skin Color: Amanuel - Pain Pain Level: 0 While discussing patient's legs, he told me of the sacral wound. Legs themselves, are at risk for opening back up. Cautioned patient of the risk for developing further statis ulcers on the legs, he is encouraged to keep the wraps on, legs elevated, and to follow his proivders orders on his medication regime. - Photo Photo: - Treatment/Dressing Change Topicals/Ointments: Other (triad) Cleanse With: Saline Dressing Types: Elastic Bandage, Mepilex w/Border, Unna Boot - Nutrition Education Reviewed Nutrition Education: No - Recomendation Recomendation:: Bilateral lower extremities. Cleanse with Normal Saline, then pat dry.Wrap each leg with an UNNA boot, starting from behind the toes, and extending to 2 inches below the knees. Ensure there are no exposed areas of skin. Apply compression with an jenni wrap. Change UNNA boot weekly. Unwrap the jenni wraps daily for inspection, then wrap again. Encourage patient to keep legs elevated as tolerated Left Gluteal fold. Cleanse with Normal Saline, then pat dry. Apply a nickel thickness of Triad paste to the wound bed, ensure that the wound bed is covered. Cover with a Mepilex border. Change every 72 hours or PRN if soiled or dislodged. Check placement every shift. Physcian/Nurse Practioner Notified: Yes (Dr. Benitez)
[2022-11-29 15:15] VITALS: BP 164/82; PULSE 70; RESP 14; TEMP 37; O2SAT 96
--- NOTE | 2022-11-29 17:19 | W.PM.PROGNOT ---
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 .T. and O.T. to evaluate and treat him. Will ask CM to assist w/ placement in SNF as he will need [facility]ci rehabilitation. [facility] accepted [facility] for Friday. (2) Ambulatory dysfunction: Status: Acute Assessment and plan: as above (3) Lumbago: Status: Chronic Assessment and plan: continue home meds for treatment of pain. Patient was scheduled to see Dr. Lopez for injections. (4) Type 2 diabetes mellitus without complications: Status: Chronic Assessment and plan: continue his Jardiance although this may have been added for HFREF, last echo we have is from 01/13/17 which demonstrated LVEF 45% adn severe LVH diffuse hypokinesis, w/ severe hypokinetic basal inferior wall, mod. MR, dilated RV w/ mod to severely reduced RV function. Cont. sliding scale insulin and glucose checks AC/HS. A1c 6.3. (5) TOM (obstructive sleep apnea): Status: Chronic Assessment and plan: Continue home CPAP unit (6) Hypertension: Status: Chronic Assessment and plan: Continue home medications including lisinopril 20 mg daily and metoprolol succinate 200 mg daily. (7) CAD (coronary artery disease): Status: Chronic Assessment and plan: not having any ischemia symptoms. cont. home meds (8) Atrial fibrillation: Assessment and plan: chronic afib. rate controlled. no symptoms of palpitations, racing heart of dizziness or LOC. continue metoprolol and warfarin; INR high at 3.5. He says that it was 2.6 earlier in the week. He is currently taking warfarin 5 mg daily. Prior to this he was taking 5 mg alternate w/ 4 mg. Coumadin held last night and repeat INR is 2.8. Pharmacy to now dose coumadin. Goal of 2.5 - 3.0. (9) HFrEF (heart failure with reduced ejection fraction): Status: Chronic Assessment and plan: not one of his listed diagnosis but I pulled up his echo from 01/13/2017 that demonstrated the following: Summary: 1. Study data: Comparison was made to the study of 04/19/2015. EF ?? 55-60%. RV normal. Severe MAXIMO. 2. Left ventricle: The cavity size was normal. Wall thickness was ?? increased in a pattern of severe LVH. The estimated ejection fraction ?? was 45%. Diffuse hypokinesis. Severe hypokinesis of the basalinferior ?? myocardium. 3. Mitral valve: There was moderate regurgitation. 4. Left atrium: The atrium was severely dilated. 5. Right ventricle: The cavity size was mildly dilated. Systolic ?? function was moderately to severely reduced. 6. Right atrium: The atrium was severely dilated. 7. Atrial septum: No defect or patent foramen ovale was identified. 8. Pulmonary arteries: Pulmonary systolic pressure was >= 15mm Hg. 9. Inferior vena cava: Poorly visualized. He is suppose to take his lasix twice a day but he often skips his afternoon dose or even skips it altogether because he does not want to be voiding all day and night.. This is why he probably has chronic leg edema. Subjective Subjective Patient reports: no new complaints, tolerating a regular diet and afebrile; denies nausea, vomiting or shortness of breath Exam Narrative Exam Narrative: Morbidly obese pleasant elderly gentleman lying in bed in no acute distress. He is alert and oriented person place and circumstance. HEENT: MMM, sclera clear. Neck is supple no JVD Lungs are clear to auscultation. Distant breath sounds. Heart is irregularly irregular and controlled rate no appreciable murmur Abdomen obese soft nontender normal bowel sounds Lower extremities with chronic venous stasis skin changes with bronze discoloration of the pretibial surfaces. No pitting edema. No calf pain. No open ulcers. Pedal pulses are palpable but diminished. Neuro: Ab. Speech normal. Objective Last Vital Signs Temp 37.0 C 11/29/22 15:15 Pulse 70 11/29/22 15:15 Resp 14 11/29/22 15:15 BP 164/82 H 11/29/22 15:15 Pulse Ox 96 11/29/22 15:15 Laboratory Results - last 24 hr 11/28/22 11/29/22 11/29/22 20:30 06:22 06:22 PT 27.9 H INR 2.8 H Sodium 139 Potassium 3.6 Chloride 105 Carbon Dioxide 24.9 Anion Gap 9.1 BUN 20 H Creatinine 0.8 Est GFR (CKD-EPI 2020) 92.29 Glucose 103 Hemoglobin A1c Calcium 9.5 Triglycerides 183 H Total Cholesterol 195 LDL Cholesterol, Calc 115 H HDL Cholesterol 44 COVID-19 Source Nasal/Nares SARS-CoV-2 (PCR) Negative 11/29/22 06:22 PT INR Sodium Potassium Chloride Carbon Dioxide Anion Gap BUN Creatinine Est GFR (CKD-EPI 2020) Glucose Hemoglobin A1c 6.2 H Calcium Triglycerides Total Cholesterol LDL Cholesterol, Calc HDL Cholesterol COVID-19 Source SARS-CoV-2 (PCR) Time Spent with Patient Time Spent with Patient: 25-34 minutes Time was spent: preparing to see the patient(eg.review tests), obtaining and/or reviewing separately otained hiistory, ordering medications,tests, procedures and indepentently interpreting results
[2022-11-29] MEDS: Enoxaparin 40 MG/0.4 ML SYR SC (20:49)
[2022-11-29 23:32] VITALS: BP 153/93; PULSE 69; RESP 19; TEMP 36.2; O2SAT 97
[2022-11-30 06:38] VITALS: BP 145/89; PULSE 77; RESP 19; TEMP 36.3; O2SAT 96
[2022-11-30 07:15] LABS: INR 2.3 (0.9-1.1); Prothrombin Time 23.2 sec (9.3-11.0)
[2022-11-30] MEDS: Baclofen 10 MG TAB PO ×3 (08:53→19:44)
[2022-11-30] MEDS: Potassium Chloride 10 MEQ CAPCR 20 MEQ PO ×2 (08:53→19:45)
[2022-11-30] MEDS: Lisinopril 20 MG TAB PO (08:53)
[2022-11-30] MEDS: Celecoxib 100 MG CAP PO ×2 (08:54→19:44)
[2022-11-30] MEDS: Docusate Sodium 100 MG CAP PO ×3 (08:54→20:35)
[2022-11-30] MEDS: Empaglifozin 25 MG TAB PO (08:54)
[2022-11-30] MEDS: Metoprolol CR 100 MG TABCR 200 MG PO (08:54)
[2022-11-30] MEDS: Furosemide 40 MG TAB 20 MG PO (08:54)
[2022-11-30] MEDS: Allopurinol 300 MG TAB PO (08:54)
[2022-11-30] MEDS: Insulin Aspart 300 UNITS/3 ML PEN SC ×3 (08:55→12:39)
[2022-11-30] MEDS: Nystatin POWDER 15 GM JAR TP ×3 (08:55→19:47)
[2022-11-30 15:27] VITALS: BP 144/83; PULSE 77; RESP 16; TEMP 35.8; O2SAT 95
--- NOTE | 2022-11-30 18:04 | W.PM.PROGNOT ---
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 P.T. and O.T. [facility] accepted him for Friday. (2) Ambulatory dysfunction: Status: Acute Assessment and plan: as above (3) Lumbago: Status: Chronic Assessment and plan: continue home meds for treatment of pain. Patient was scheduled to see Dr. Lopez for injections. (4) Type 2 diabetes mellitus without complications: Status: Chronic Assessment and plan: continue his Jardiance although this may have been added for HFREF, last echo we have is from 01/13/17 which demonstrated LVEF 45% adn severe LVH diffuse hypokinesis, w/ severe hypokinetic basal inferior wall, mod. MR, dilated RV w/ mod to severely reduced RV function. Cont. sliding scale insulin and glucose checks AC/HS. A1c 6.3. (5) TOM (obstructive sleep apnea): Status: Chronic Assessment and plan: Continue home CPAP unit (6) Hypertension: Status: Chronic Assessment and plan: Continue home medications including lisinopril 20 mg daily and metoprolol succinate 200 mg daily. (7) CAD (coronary artery disease): Status: Chronic Assessment and plan: not having any ischemia symptoms. cont. home meds (8) Atrial fibrillation: Assessment and plan: chronic afib. rate controlled. no symptoms of palpitations, racing heart of dizziness or LOC. continue metoprolol and warfarin; INR high at 3.5. He says that it was 2.6 earlier in the week. He is currently taking warfarin 5 mg daily. Prior to this he was taking 5 mg alternate w/ 4 mg. Coumadin today 2.3. Pharmacy to now dose coumadin. Goal of 2.5 - 3.0. (9) HFrEF (heart failure with reduced ejection fraction): Status: Chronic Assessment and plan: Not one of his listed diagnosis but his echo from 01/13/2017 demonstrated the following: Summary: 1. Study data: Comparison was made to the study of 04/19/2015. EF ?? 55-60%. RV normal. Severe MAXIMO. 2. Left ventricle: The cavity size was normal. Wall thickness was ?? increased in a pattern of severe LVH. The estimated ejection fraction ?? was 45%. Diffuse hypokinesis. Severe hypokinesis of the basalinferior ?? myocardium. 3. Mitral valve: There was moderate regurgitation. 4. Left atrium: The atrium was severely dilated. 5. Right ventricle: The cavity size was mildly dilated. Systolic ?? function was moderately to severely reduced. 6. Right atrium: The atrium was severely dilated. 7. Atrial septum: No defect or patent foramen ovale was identified. 8. Pulmonary arteries: Pulmonary systolic pressure was >= 15mm Hg. 9. Inferior vena cava: Poorly visualized. He is suppose to take his lasix twice a day but he often skips his afternoon dose or even skips it altogether because he does not want to be voiding all day and night.. This is why he probably has chronic leg edema. Subjective Subjective Patient reports: no new complaints, feels better, tolerating a regular diet and afebrile; denies nausea, vomiting or shortness of breath Exam Narrative Exam Narrative: Morbidly obese pleasant elderly gentleman sitting in chair. HEENT: MMM, sclera clear. Neck is supple no JVD Lungs are clear to auscultation. Distant breath sounds. Heart is irregularly irregular and controlled rate no appreciable murmur Abdomen obese soft nontender normal bowel sounds Lower extremities with Unna Boots in place. . Neuro: Ab. Speech normal. Objective Last Vital Signs Temp 35.8 C L 11/30/22 15:27 Pulse 77 11/30/22 15:27 Resp 16 11/30/22 15:27 BP 144/83 H 11/30/22 15:27 Pulse Ox 95 11/30/22 15:27 Laboratory Results - last 24 hr 11/30/22 06:54 PT 23.2 H INR 2.3 H Time Spent with Patient Time Spent with Patient: <25 minutes Time was spent: preparing to see the patient(eg.review tests), ordering medications,tests, procedures and indepentently interpreting results
--- NOTE | 2022-11-30 18:38 | NUR.NOTE ---
Assisted pt back to bed at 1800 using walker and stand by assist. Pt tolerated well
[2022-11-30] MEDS: Enoxaparin 40 MG/0.4 ML SYR SC (19:45)
[2022-11-30] MEDS: Warfarin 5 MG TAB PO (20:36)
[2022-11-30 23:05] VITALS: BP 138/82; PULSE 86; RESP 16; TEMP 36; O2SAT 98
[2022-12-01 06:53] LABS: Platelet Count 234 10^3/uL (130-400)
[2022-12-01 07:05] LABS: INR 1.9 (0.9-1.1); Prothrombin Time 19.4 sec (9.3-11.0)
[2022-12-01 07:52] VITALS: BP 158/98; PULSE 74; RESP 19; TEMP 36.4; O2SAT 97
[2022-12-01] MEDS: Celecoxib 100 MG CAP PO ×2 (08:08→20:05)
[2022-12-01] MEDS: Metoprolol CR 100 MG TABCR 200 MG PO (08:08)
[2022-12-01] MEDS: Potassium Chloride 10 MEQ CAPCR 20 MEQ PO ×2 (08:08→20:05)
[2022-12-01] MEDS: Baclofen 10 MG TAB PO ×3 (08:08→20:05)
[2022-12-01] MEDS: Empaglifozin 25 MG TAB PO (08:08)
[2022-12-01] MEDS: Allopurinol 300 MG TAB PO (08:08)
[2022-12-01] MEDS: Docusate Sodium 100 MG CAP PO (08:08)
[2022-12-01] MEDS: Furosemide 40 MG TAB 20 MG PO (08:08)
[2022-12-01] MEDS: Lisinopril 20 MG TAB PO (08:08)
[2022-12-01] MEDS: Insulin Aspart 300 UNITS/3 ML PEN SC ×2 (08:09→12:05)
[2022-12-01] MEDS: Nystatin POWDER 15 GM JAR TP ×3 (08:10→20:06)
[2022-12-01] MEDS: Polyethylene Glycol 3350 17 GM PACKET PO (08:17)
[2022-12-01 11:59] VITALS: RESP 22
--- NOTE | 2022-12-01 13:54 | NUR.NOTE ---
Nursing Note: At this time, this RN was educated that there was blood all over the patients floor and he thought it came from his sacral ulcer. This RN assessed the dressing on sacrum, it was CDI. This RN changed the socks as they were covered in blood. The patients left great toenail was flipped up and bleeding. This RN had charge nurse JACOB Rahman assess it. She contacted the provider, who came into the room and took the toenail the rest of the way off and applied dressing.
--- NOTE | 2022-12-01 14:17 | PGE_ITS ---
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 He has been transferring to chair more frequently. [facility] him for Friday. (2) Ambulatory dysfunction: Status: Acute Assessment and plan: as above (3) Lumbago: Status: Chronic Assessment and plan: continue home meds for treatment of pain. Patient was scheduled to see Dr. Lopez for injections. (4) Type 2 diabetes mellitus without complications: Status: Chronic Assessment and plan: continue his Jardiance although this may have been added for HFREF, last echo we have is from 01/13/17 which demonstrated LVEF 45% adn severe LVH diffuse hy pokinesis, w/ severe hypokinetic basal inferior wall, mod. MR, dilated RV w/ mod to severely reduced RV function. Will d/c glucose monitoring; not requiring supplemental insulin. A1c 6.3. (5) TOM (obstructive sleep apnea): Status: Chronic Assessment and plan: Continue home CPAP unit (6) Hypertension: Status: Chronic Assessment and plan: Continue home medications including lisinopril 20 mg daily and metoprolol succinate 200 mg daily. (7) CAD (coronary artery disease): Status: Chronic Assessment and plan: not having any ischemia symptoms. cont. home meds (8) Atrial fibrillation: Assessment and plan: chronic afib. rate controlled. no symptoms of palpitations, racing heart of dizziness or LOC. continue metoprolol and warfarin; INR high at 3.5. He says that it was 2.6 earlier in the week. He is currently taking warfarin 5 mg daily. Prior to this he was taking 5 mg alternate w/ 4 mg. Coumadin today 1.8. Pharmacy to now dose coumadin. Goal of 2.5 - 3.0. (9) HFrEF (heart failure with reduced ejection fraction): Status: Chronic Assessment and plan: Not one of his listed diagnosis but his echo from 01/13/2017 demonstrated the following: Summary: 1. Study data: Comparison was made to the study of 04/19/2015. EF ?? 55-60%. RV normal. Severe MAXIMO. 2. Left ventricle: The cavity size was normal. Wall thickness was ?? increased in a pattern of severe LVH. The estimated ejection fraction ?? was 45%. Diffuse hypokinesis. Severe hypokinesis of the basalinferior ?? myocardium. 3. Mitral valve: There was moderate regurgitation. 4. Left atrium: The atrium was severely dilated. 5. Right ventricle: The cavity size was mildly dilated. Systolic ?? function was moderately to severely reduced. 6. Right atrium: The atrium was severely dilated. 7. Atrial septum: No defect or patent foramen ovale was identified. 8. Pulmonary arteries: Pulmonary systolic pressure was >= 15mm Hg. 9. Inferior vena cava: Poorly visualized. He is suppose to take his lasix twice a day but he often skips his afternoon dose or even skips it altogether because he does not want to be voiding all day and night.. This is why he probably has chronic leg edema. Subjective Subjective Patient reports: no new complaints and afebrile; denies nausea, vomiting or shortness of breath Interval history since last seen: Right great toenail partially avulsed. Exam Narrative Exam Narrative: Morbidly obese pleasant elderly gentleman sitting in chair. HEENT: MMM, sclera clear. Neck is supple no JVD Lungs are clear to auscultation. Distant breath sounds. Heart is irregularly irregular and controlled rate no appreciable murmur Abdomen obese soft nontender normal bowel sounds Lower extremities with Unna Boots in place. Right great toenal partial avulsed. Removed toenail completely w/o pain, complications. Neuro: Ab. Speech normal. Objective Last Vital Signs Temp 36.4 C 12/01/22 07:52 Pulse 74 12/01/22 07:52 Resp 19 12/01/22 07:52 BP 158/98 H 12/01/22 07:52 Pulse Ox 97 12/01/22 07:52 Laboratory Results - last 24 hr 12/01/22 12/01/22 05:58 05:58 Plt Count 234 PT 19.4 H INR 1.9 H Time Spent with Patient Time Spent with Patient: <25 minutes Time was spent: preparing to see the patient(eg.review tests), ordering medications,tests, procedures, indepentently interpreting results and counseling the patient
[2022-12-01 15:07] VITALS: BP 124/75; PULSE 75; RESP 19; TEMP 36.4; O2SAT 95
[2022-12-01] MEDS: Warfarin 4 MG TAB 8 MG PO (20:05)
[2022-12-01] MEDS: Enoxaparin 40 MG/0.4 ML SYR SC (20:05)
--- NOTE | 2022-12-01 21:48 | IN_ITS ---
Date of service: 12/01/22 Time of Service: 10:47 PT Notes Visit Reasons: Ambulatory Dysfuction, Dehyd, Frequent Falls, Weak Inpatient Physical Therapy Evaluation Date: 12/01/2022 Referring Doctor:? Nasir Rivers MD PT Orders: PT CONSULT: Eval/Treat Precautions: fall. Standard. Activity as tolerated. Patient Profile/Admitting Diagnosis:?? Patient presented to the ED on 11/28/2022 due to LE weakness and repeated falls. Patient is admitted for continued monitoring of ambulatory dysfunction, walker, chronic BLE weakness, type 2 diabetes mellitus, TOM, hypertension, CAD, AF,. HFrEF. PMHX: All Active Problems?(Updated 11/28/22 @ 22:10 by Nasir Rivers MD) HFrEF (heart failure with reduced ejection fraction) (Chronic) Ambulatory dysfunction (Acute) Bilateral leg weakness (Acute) Lumbago (Chronic) Non compliance with medical treatment (Acute) Trochanteric bursitis, left hip (Acute) H/O surgical procedure (Chronic) a.? Bilateral hip replacement b.? Nephrolithotomy c.? Right ureteral stent placement d.? Coronary artery stent placement 2006 e.? Adult circumcision f.? Colonoscopy 11/2013History of revision of total replacement of left hip joint (Acute 11/01/20) Acetabular revision with head/liner exchange for fractured femoral head prosthesis. Pure hypercholesterolemia, unspecified (Acute) Cerumen impaction (Acute) Body mass index (BMI) 50.0-59.9, adult (Acute) Type 2 diabetes mellitus without complications (Chronic) Neoplasm of unspecified behavior of bone, soft tissue, and skin (Acute) Nasal dryness (Acute) Acute cholecystitis (Acute 09/07/14) Morbid obesity (Chronic) CAD (coronary artery disease) (Chronic) a.? coronary artery stent placement 2006 Personal history of pulmonary embolism (Chronic) Hypertension (Chronic) TOM (obstructive sleep apnea) (Chronic) Personal history of kidney stones (Chronic) a.? uric acid stonesVenous stasis ulcer (Chronic) Venous (peripheral) insufficiency (Chronic) Medical History? Anticoagulant long-term use Atrial fibrillation A.? On CoumadinVenous stasis ulcer of ankle limited to breakdown of skin without varicose veins Surgical History?(Updated 12/20/22 @ 00:05 by CEDRICK PADRON) H/O bilateral hip replacements Social History/Home Situation: Patient lives in a private home with his Leah, who is present at time of consult. He has 3 RAJESH home with bilat rails. has been a very good support. Equipment Owned/DME: FWW, elevated toilet seat Subjective:? He has been looking forward to be seen by PT. Reports that he does not feel safe walking too far as he does not know when his legs are going to give out. Adds that he that he is going to SNF tomorrow. Feels that he may need a wheelchair at home after he is discharged from the SNF. Reported that his walker feels a little unstaedy as it has been used for quite a while now. Wondering if he can get a new one. Objective:? General Observation: Sitting on chair. No lines. Mental Status: Alert and oriented x4 ROM: Right Upper Extremity: Shoulder Flexion allows up to 100 degrees. Shoulder abduction allows up to 90 degrees. Elbow flexion WFL. Wrist flexion WFL. Functional opening and closing of hand WFL. Left Upper Extremity: Shoulder Flexion allows up to 100 degrees. Shoulder abduction allows up to 90 degrees. Elbow flexion WFL. Wrist flexion WFL. Functional opening and closing of hand WFL. Right Lower Extremity: Hip flexion allows up to 90 degrees. Hip abduction WFL. Knee flexion WFL. Ankle dorsiflexion WFL. Ankle plantarflexion WFL. Left Lower Extremity: Hip flexion allows up to 100 degrees. Hip abduction WFL. Knee flexion WFL. Ankle dorsiflexion WFL. Ankle plantarflexion WFL. Strength: Right Upper Extremity: Shoulder flexors 3-/5. Shoulder abductors 3-/5. Elbow flexors 5/5. Elbow extensors 5/5. .Net Architect strong. Left Upper Extremity: Shoulder flexors 3-/5. Shoulder abductors 3-/5. Elbow flexors 5/5. Elbow extensors 5/5. .Net Architect strong. Right Lower Extremity: Hip flexors 3-/5. Hip abductors 4-/5. Knee flexors 3/5. Knee extensors 3/5. Ankle dorsiflexors 3+/5. Ankle plantarflexors 3+/5. Left Lower Extremity:Hip flexors 3-/5. Hip abductors 4/5. Knee flexors 4/5. Knee extensors 4/5. Ankle dorsiflexors 4/5. Ankle plantarflexors 4/5. Bed Mobility/Transfers: Sit to stand contact guard assist Stand to sit contact guard assist Bed to chair contact guard assist Chair to bed contact guard assist Gait:? 15 feet + 15 feet + 20 feet + 5 feet using bariatric front-wheeled walker with report of fatigue and mild shortness of breath. Steps cautious and mildly shaky. Balance:? Static Sitting: Good Dynamic Sitting: Good Static Standing: fair Dynamic Standing: fair Special Tests: Mobility Limitations Standardized Measure [facility] AM-PAC 6 clicks Basic Mobility Inpatient Short Form: Raw Score: 18 ? CMS Score: 47% ? ? ? Informed Consent/Education:? Informed Consent/Education: Patient was instructed in purpose of PT consult and plan of care. Agreeable to proceed with established PT POC to achieve personal goals. THERA EX: Seated march x 12 LAQ x 12 Ankle DF/PF x 12 R shoulder flexion/extension x12 using blue TB R shoulder hor abd/add x 12 using blue TB Assessment:?? Patient presents with functional mobility decline, fearfulness of falling, decreased activity tolerance, high BMI, chroninc LBP, and co-morbid conditions as above limiting his ability to safely perform transfers and ambulation. Patient may benefit from SNF placement for continued rehab, assessment for the need of wheelchair due to repeated falls, and graudal strengthening/balance training. He requires skilled PT intervention to maximize safety and mobility to allow for safe return home, although may require brief rehab stay prior to doing so. Will see how he progresses and continue monitoring for discharge planning. He currently demonstrates the following impairment level findings: 1. Decreased LE strength 2. Gait impairments 3. Ferafulness of falling 4. Chroninc LBP Impairments are contributing to the following functional limitations: 1. unable to ambulate household distances 2. unable to manage stairs into house 3. Deficit score of 47% on the [facility] testing 4. Increased fall risk Patient is assessed as? Moderate 07513? complexity based on the following: History: Patient presented to the ED on 11/28/2022 due to LE weakness and repeated falls. Patient is admitted for continued monitoring of ambulatory dysfunction, walker, chronic BLE weakness, type 2 diabetes mellitus, TOM, hypertension, CAD, AF,. HFrEF with histroy as above Examination: Impairments and functional limitations as above Presentation: Evolving Decision Makin Moderate Complexity Goals: Goals X1 week 1. Supine-Sit : supervision 2. Sit-Supine? : supervision 3. Sit-Stand? : supervision 4. Stand-Sit? : supervision 5. Bed-Chair? : supervision with FWW 6. Chair-Bed? : supervision with FWW 7. Gait? : supervision with FWW x 30' 8. Stairs : ascend and descend x 3 with bilat rails Plan of Care/Treatment Plan: 1-2x/day, 7 days/week x 1 week. Plan of care has been reviewed with the RIBBING MACHINE OPERATOR providing the service under Physical Therapy direction. Initiate Physical Therapy intervention for strengthening, bed mobility, transfers, gait, stairs, balance training, use of assistive device. DISCHARGE RECOMMENDATIONS: Patient will benefit from intermediate facility placement for continued skilled physical therapy services in order to progress mobility level, strength, and balance in preparation for a safe discharge to home. TREATMENT CODE/TIME:? 85285 x 20 minutes, 9753 0 x 23 minutes beginning at 10:47 AM. Thank you for the opportunity to participate in the care of this patient. Estrellita Alcazar PT, DPT, CLT [facility] [place], [place]
[2022-12-02 00:32] VITALS: BP 137/80; PULSE 74; RESP 18; TEMP 36.6; O2SAT 98
[2022-12-02 07:34] LABS: INR 1.9 (0.9-1.1); Prothrombin Time 19.3 sec (9.3-11.0)
[2022-12-02 07:52] VITALS: BP 135/84; PULSE 73; RESP 18; TEMP 36; O2SAT 99
[2022-12-02] MEDS: Nystatin POWDER 15 GM JAR TP (08:08)
[2022-12-02] MEDS: Furosemide 40 MG TAB 20 MG PO (08:08)
[2022-12-02] MEDS: Baclofen 10 MG TAB PO (08:08)
[2022-12-02] MEDS: Metoprolol CR 100 MG TABCR 200 MG PO (08:08)
[2022-12-02] MEDS: Allopurinol 300 MG TAB PO (08:08)
[2022-12-02] MEDS: Lisinopril 20 MG TAB PO (08:08)
[2022-12-02] MEDS: Potassium Chloride 10 MEQ CAPCR 20 MEQ PO (08:09)
[2022-12-02] MEDS: Empaglifozin 25 MG TAB PO (08:09)
[2022-12-02] MEDS: Celecoxib 100 MG CAP PO (08:09)
--- NOTE | 2022-12-02 09:01 | OTIE_ITS ---
Occupational Therapy Notes Inpatient Occupational Therapy Evaluation Date: 12/02/22 Referring Doctor:Nasir Rivers MD OT Orders: Urgent Precautions: Fall Safety Assessment PATIENT PROFILE/ADMITTING DIAGNOSIS: Pt is a 77 year old male with diagnosis of LE weakness and repeated falls.? Admitted ot Med Surg for continued monitoring of ambulatory dysfunction, walker, chronic BLE weakness, type 2 diabetes mellitus, TOM, hypertension, CAD, AF,.? HFrEF. Past Medical History: All Active Problems?(Updated 11/28/22 @ 22:10 by Nasir Rivers MD) HFrEF (heart failure with reduced ejection fraction) (Chronic) Ambulatory dysfunction (Acute) Bilateral leg weakness (Acute) Lumbago (Chronic) Non compliance with medical treatment (Acute) Trochanteric bursitis, left hip (Acute) H/O surgical procedure (Chronic) a.? Bilateral hip replacement b.? Nephrolithotomy c.? Right ureteral stent placement d.? Coronary artery stent placement 2006 e.? Adult circumcision f.? Colonoscopy 11/2013History of revision of total replacement of left hip joint (Acute 11/01/20) Acetabular revision with head/liner exchange for fractured femoral head prosthesis.Pure hypercholesterolemia, unspecified (Acute) Cerumen impaction (Acute) Body mass index (BMI) 50.0-59.9, adult (Acute) Type 2 diabetes mellitus without complications (Chronic) Neoplasm of unspecified behavior of bone, soft tissue, and skin (Acute) Nasal dryness (Acute) Acute cholecystitis (Acute 09/07/14) Morbid obesity (Chronic) CAD (coronary artery disease) (Chronic) a.? coronary artery stent placement 2006Personal history of pulmonary embolism (Chronic) Hypertension (Chronic) TOM (obstructive sleep apnea) (Chronic) Personal history of kidney stones (Chronic) a.? uric acid stonesVenous stasis ulcer (Chronic) Venous (peripheral) insufficiency (Chronic) Medical History? Anticoagulant long-term use Atrial fibrillation A.? On CoumadinVenous stasis ulcer of ankle limited to breakdown of skin without varicose veins Surgical History?(Updated 08/27/22 @ 00:05 by CEDRICK PADRON) H/O bilateral hip replacements Social History/Home Situation: Pt lives in a private home with his who he notes is a huge support system for him. He states that he is (I) at his baseline with adaptive equipment for (A). Equipment owned/DME: FWW, Cane, dressing stick, sock aid, lens grinder rough, commode, shower seat SUBJECTIVE: Pt states that he is doing okay. He notes that he is going to the [facility] today. OBJECTIVE: General Observation: Pleasant, sitting in chair with good core support in seated position. Mental Status: A&Ox4 Pain: no c/o pain during OT session. ROM: RUE AROM WFL L UE AROM WFL SENSATION: intact (B) FUNCTIONAL MOBILITY/ADLS: BATHING NT at todays session. He does note that he utilizes a long handled sponge and can reach his (B) underarms and under his folds. He does need (A) with his back. DRESSING Pt utilizes a reachers, dressing stick and sock aids for (I) in his dressing ro utines in the seated position. His main concern at this time is standing to pull up his pants/underwear. GROOMING seated (I) TOILETING pt utilizes commode, he uses a wand at home for (I) in his toileting hygiene EATING seated (I) BALANCE: Static sitting Normal Dynamic Sitting Normal Static Standing Fair Dynamic Standing Fair SPECIAL TESTS: Daily Activity Limitations Standardized Measure [facility] AM -PAC ?6 clicks? Daily Activity Inpatient Short Form: Raw score: 20 Standardized score: 42.03 CMS score: 38.32% INFORMED CONSENT/EDUCATION: Pt instructed in purpose of OT Consult and plan of care. ASSESSMENT: Patient is a 77-year-old male referred to occupational therapy services with diagnosis of LE weakness and repeated falls.? Admitted for continued monitoring of ambulatory dysfunction, walker, chronic BLE weakness, type 2 diabetes mellitus, TOM, hypertension, CAD, AF,.? HFrEF. Patient presents with clinical signs and symptoms consistent with dx, as demonstrated by the following impairment level findings/functional limitations:Impairments in ADL/IADL and leisure activities, decreased functional activity tolerance, (B) LE weakness limiting functional mobility required for ADL performance. AMPAC score 20 Patient is assessed as a Low 94808 complexity based on the following: History: see above Examination: see functional limitations as noted above Presentation: evolving Decision Making: AMPAC score 20 GOALS N/A PLAN OF CARE/TREATMENT PLAN: Seen for OT consult only pending discharge to the [facility]. DISCHARGE RECOMMENDATIONS SNF- plan per CM is that pt will go to [facility] today. TREATMENT TIME/MINUTES/CODES [id number], 18 minutes Khushbu Chong OTR/[facility]
--- NOTE | 2022-12-02 09:54 | DSE_ITS ---
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 Has worked with P.T. and O.T. He has been showing more initiative to ambulate / transfer. Transferring to the [facility] for further rehab. efforts. (2) Ambulatory dysfunction: Status: Acute Asessment and Plan: As above. (3) Lumbago: Status: Chronic Asessment and Plan: Cont pain management and muscle relaxant. (4) Type 2 diabetes mellitus without complications: Status: Chronic Asessment and Plan: Glucose has remained controlled. Cont. Jardiance. (5) TOM (obstructive sleep apnea): Status: Chronic Asessment and Plan: Cont. CPAP (6) Hypertension: Status: Chronic Asessment and Plan: Controlled on Lisinopril and Metoprolol. (7) CAD (coronary artery disease): Status: Chronic Asessment and Plan: Stable w/o angina. (8) Atrial fibrillation: Asessment and Plan: Rate controlled. no symptoms of palpitations, racing heart of dizziness or LOC. continue metoprolol and warfarin. He was supratherapeutic on coumadin so it was held. His INR then was subtherapeutic. Now on 8mg coumadin daily with goal of INR in the 2.5 to 3.0 range. He was taking 5mg coumadin daily just prior to admission; prior to this he was alternating between 5 and 4mg QOD. Monitor and adjust to maintain in the above desired range. (9) HFrEF (heart failure with reduced ejection fraction): Status: Chronic Asessment and Plan: No exacerbation during this hospitalization. Echo from 01/13/2017 that demonstrated the following: Summary: 1. Study data: Comparison was made to the study of 04/19/2015. EF ?? 55-60%. RV normal. Severe MAXIMO. 2. Left ventricle: The cavity size was normal. Wall thickness was ?? increased in a pattern of severe LVH. The estimated ejection fraction ?? was 45%. Diffuse hypokinesis. Severe hypokinesis of the basalinferior ?? myocardium. 3. Mitral valve: There was moderate regurgitation. 4. Left atrium: The atrium was severely dilated. 5. Right ventricle: The cavity size was mildly dilated. Systolic ?? function was moderately to severely reduced. 6. Right atrium: The atrium was severely dilated. 7. Atrial septum: No defect or patent foramen ovale was identified. 8. Pulmonary arteries: Pulmonary systolic pressure was >= 15mm Hg. 9. Inferior vena cava: Poorly visualized. He is suppose to take his lasix twice a day but he often skips his afternoon dose or even skips it altogether because he does not want to be voiding all day and night.. This is why he probably has chronic leg edema. Discharge Plan Disposition Patient Disposition: Halfway Facility(SNF) Condition: Improving Discharge Details Reason For Visit: Ambulatory Dysfuction, Dehyd, Frequent Falls, Weak Admit Date/Time: 11/28/22 19:10 Admit Provider: Nasir Rivers Attending Provider: Nasir Rivers Primary Care Provider: Nick Nettles Hospital Course Hospital Course: 77 yr old male w/ morbid, DM w/ peripheral neuropathy, w/ chronic mobility issues who ordinarily ambulates with a walker. He presented to the E.D. after multiple falls at home requiring multiple EMS visits for assists back to bed. He denied any injuries ot his head or limbs. Workup in the E.D. included routine labs (UA, CBC, CMP, FLUVID). Labs were remarkable for mild azotemia (but not out of his prior range of BUN) and polycythemia (again similar Hb in the past). UA remarkable for proteinuria and glycosuria but no ketones.CT of head noncontrast and lumbar spine and pelvix xray were done. CT head showed no acute intracranial process. CT of LS spine showed no acute fractures or subluxation of the LS spine. Pelvic xray was negative. P.T. was consulted? and evaluated him in the E.D. and found that he required assistance w/ bed. The hospitalist service was asked to admit him for his generalized weakness for inpatient rehab and SNF placement. Per the patient he had been doing home P.T. and had been getting around w/ a walker but over past several weeks has been declining. He says that his legs will feel like spaghetti and they will give out on him. 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 He is now seeing Dr. Lopez in pain management who plans to do epidural steroid injections according to the patient. Last MRI of his LS spine done at [facility] was on 10/30/21 and demonstrated L1-L2 disc herniation and moderate central canal stenosis of L4-L5 and T11 vertebral compression fracture. See Diagnosis Transfer to [facility] for further rehab. ? Home Meds and New Rx's Prescriptions: New warfarin [Jantoven] 5 mg Tablet See Rx Instructions .ROUTE .COMPLEX Qty: 30 0RF Rx Instructions: 8 mg daily until INR 2.5-3.0 then adjust to maintain this range. Continued furosemide 40 MG tablet 20 mg PO BID metoprolol succinate 100 MG tablet extended release 24 hr 200 mg PO DAILY nitroglycerin 0.4 MG tablet, sublingual 0.4 mg Sublingual PRN PRN (Reason: Chest Pain) lisinopril 40 MG tablet 20 mg PO DAILY potassium citrate 10 MEQ tablet extended release 20 meq PO BID allopurinol 300 MG tablet 300 mg PO DAILY Acetaminophen [Tylenol] 650 mg PO Q4H PRN PRNQty: 0 0RF baclofen 10 mg tablet 10 mg PO TID Qty: 90 0RF polyethylene glycol 3350 17 gram Powder In Packet 17 g PO DAILY PRN PRN (Reason: Constipation) Qty: 0 0RF Patient Comments: 11/28/22: not taking lidocaine 5 % Adhesive Patch,Medicated 2 patch topical DIRECTED Qty: 0 0RF docusate sodium [Colace] 100 mg Capsule 100 mg PO TID PRN PRNQty: 0 0RF diphenhydramine HCl 25 mg Tablet 25 mg PO DIRECTED PRN nystatin 100,000 unit/gram powder 1 applic topical TID celecoxib 100 mg capsule 100 mg PO BID PRN Jardiance 25 mg Tablet 25 mg PO DAILY AM Discontinued warfarin [Coumadin] 5 MG tablet 5 mg PO DIRECTED Rx Instructions: 1 tab 6 days/week per INR polyethylene glycol 3350 17 gram Powder In Packet 17 g PO DAILY PRN PRN (Reason: Constipation) Qty: 0 0RF Patient Comments: 11/28/22: not taking warfarin 4 mg Tablet 4 mg PO DIRECTED Rx Instructions: every friday Discharge Instructions Activity:: Activity as Tolerated Equipment/Supplies:: Has walker Diet:: Carb Counting Discharge Orders Discharge Orders: Discharge Order (Routine); Ordered 12/02/22 Ordered By: Gerardo Benitez DS: Summary Time Spent with Patient providing and/or coordinating discharge services: Greater than 30 minutes Status at Discharge Functional status at discharge: uses cane/walker Overall status at discharge: other (Baseline with gait instability) Mental Status: mental status grossly normal Speech and Movement: speech clear Mood: congruent mood Affect: normal affect Exam Narrative Exam Narrative: Morbidly obese pleasant elderly gentleman sitting in chair. HEENT: MMM, sclera clear. Neck is supple no JVD Lungs are clear to auscultation. Distant breath sounds. Heart is irregularly irregular and controlled rate no appreciable murmur Abdomen obese soft nontender normal bowel sounds Lower extremities with Unna Boots in place. Right great toenal partial avulsed. Removed toenail on 12/01. Bandage in place. Neuro: Ab. Speech normal. Psych Mental Status: mental status grossly normal Speech and Movement: speech clear Mood: congruent mood Affect: normal affect DS: Data Vitals/I&O Vitals and I&O: Vital Signs Temperature 36.0 C L 12/02/22 07:52 Temperature Source Tympanic 12/02/22 07:52 Pulse 73 12/02/22 07:52 Pulse Rhythm Regular 12/01/22 23:12 Respiratory Rate 18 12/02/22 07:52 Respiratory Effort Normal, Non-Labored 12/01/22 23:12 Respiratory Depth Normal 12/01/22 23:12 Respiratory Pattern Normal 12/01/22 23:12 Blood Pressure 135/84 12/02/22 07:52 Pulse Oximetry 99 12/02/22 07:52 Oxygen Delivery Method Room Air 12/02/22 07:52 Oxygen Flow Rate 0 12/02/22 07:52 Pain Level 0 12/02/22 07:24 Comment Pt. denies pain at this time. 12/02/22 07:24 Intake & Output 12/01/22 12/01/22 12/02/22 11:59 23:59 11:59 Intake Total 860 / 860 550 / 550 Output Total 100 / 975 875 / 975 875 / 875 Balance -100 / -115 -15 / -115 -325 / -325 Weight 136.6 kg 135.2 kg Intake: Oral 860 / 860 550 / 550 Output: Urine 100 / 975 875 / 975 875 / 875 Other: Urine Color Yellow Yellow Yellow Straw Urine Appearance Clear Clear Clear Urine Odor Normal Normal Comment pt had 100cc in the urinal but was also very incontient pt had 100 in commode and the was also Incontinent Stool Size Large Stool Characteristics Soft Formed Brown Voiding Methods Urinal Bedside Commode Bedside Commode Incontinent Data Completed and Pending Labs on day of discharge: Labs from last 24 hours 12/02/22 06:30 PT 19.3 H INR 1.9 H PFSH All Active Problems HFrEF (heart failure with reduced ejection fraction) (Chronic) Ambulatory dysfunction (Acute) Bilateral leg weakness (Acute) Lumbago (Chronic) Non compliance with medical treatment (Acute) Trochanteric bursitis, left hip (Acute) H/O surgical procedure (Chronic) a. Bilateral hip replacement b. Nephrolithotomy c. Right ureteral stent placement d. Coronary artery stent placement 2006 e. Adult circumcision f. Colonoscopy 11/2013 History of revision of total replacement of left hip joint (Acute 11/01/20) Acetabular revision with head/liner exchange for fractured femoral head prosthesis. Pure hypercholesterolemia, unspecified (Acute) Cerumen impaction (Acute) Body mass index (BMI) 50.0-59.9, adult (Acute) Type 2 diabetes mellitus without complications (Chronic) Neoplasm of unspecified behavior of bone, soft tissue, and skin (Acute) Nasal dryness (Acute) Acute cholecystitis (Acute 09/07/14) Morbid obesity (Chronic) CAD (coronary artery disease) (Chronic) a. coronary artery stent placement 2006 Personal history of pulmonary embolism (Chronic) Hypertension (Chronic) TOM (obstructive sleep apnea) (Chronic) Personal history of kidney stones (Chronic) a. uric acid stones Venous stasis ulcer (Chronic) Venous (peripheral) insufficiency (Chronic) Medical History Anticoagulant long-term use Atrial fibrillation A. On Coumadin Venous stasis ulcer of ankle limited to breakdown of skin without varicose veins Surgical History H/O bilateral hip replacements Social History Smoking/Tobacco Use Status: Former Tobacco Use Smoking risk assessment performed?: Yes Alcohol Intake: never Drug use: Never Substance use type: does not use Do you feel safe at home: Yes Do you feel safe in your relationship?: Yes Time Spent with Patient Time Spent with Patient: <45 minutes Time was spent: preparing to see the patient(eg.review tests), referring, communicating with other health primary care nurse and indepentently interpreting results
[2022-12-02 10:29] LABS: Source Nasal/Nares
[2022-12-02 11:06] LABS: COVID-19 PCR Negative (Negative)
--- NOTE | 2022-12-02 15:58 | PDOC.CMDIS ---
- If Service Date Differs Date of service: 12/02/22 Time of Service: 15:58 LACE Index Scoring Tool - Questions: Length of Stay (in days): 4 - 6 Acuity (Admit via E.D.?): Yes Comorbidities: Diabetes w/o Complication, Congestive Heart Failure E.D. Visits: 2 - Answers: Total Score: 12 Risk of Readmission: High Risk Care Management Discharge Reason for Hospitalization: Ambulatory dysfunction, dehydration, frequent falls, weakness Discharge Plan: Jaime went to the [facility] today for short term rehab. He transported via [employer], coordinated by [facility]. His provided updated insurance cards to [employer], who sent them to access to update his chart. He will follow up with his PCP and discharge plan of care. He is happy to be going to the [facility]. Patient/Family Education Needs: Review discharge instructions and limitations, discussion of self care needs including ask me three. Services Needed at Discharge: [facility] ([facility]), Transportation ([facility])
== END 2022-12-02 13:10 | disposition skilled nursing facility (03) | DRG 551 ==
LOC: ER 19:21 → MS 20:34
PROVIDERS: Nurse Practitioner Family; Admitting Provider Internal Medicine; Emergency Provider Emergency Medicine; PCP Internal Medicine; Visit Provider Internal Medicine
DX: M47.897 Other spondylosis, lumbosacral region (principal); L89.323 Pressure ulcer of left buttock, stage 3; I50.22 Chronic systolic (congestive) heart failure; Z68.41 Body mass index [BMI] 40.0-44.9, adult; I48.20 Chronic atrial fibrillation, unspecified; R29.898 Other symptoms and signs involving the musculoskeletal system; R26.2 Difficulty in walking, not elsewhere classified; G47.33 Obstructive sleep apnea (adult) (pediatric); I25.10 Atherosclerotic heart disease of native coronary artery without angina pectoris; Z79.01 Long term (current) use of anticoagulants; I11.0 Hypertensive heart disease with heart failure; R53.81 Other malaise; E66.01 Morbid (severe) obesity due to excess calories; E11.42 Type 2 diabetes mellitus with diabetic polyneuropathy; Z91.81 History of falling; Z91.199 Patient's noncompliance with other medical treatment and regimen due to unspecified reason; M70.62 Trochanteric bursitis, left hip; Z96.643 Presence of artificial hip joint, bilateral; Z95.5 Presence of coronary angioplasty implant and graft; Z86.711 Personal history of pulmonary embolism; I87.2 Venous insufficiency (chronic) (peripheral); I48.91 Unspecified atrial fibrillation; M51.26 Other intervertebral disc displacement, lumbar region; W18.39XA Other fall on same level, initial encounter; E78.00 Pure hypercholesterolemia, unspecified; Z87.891 Personal history of nicotine dependence
CPT/HCPCS: 36415; 80048; 80053; 80061; 87635; 97162; 97165; 97530; 99285; J1650; 70450; 72131; 72170; 81003; 81015; 83036; 85025; 85049; 85610; 99222; 99231; 99232; 99239

== ENCOUNTER 2022-12-09 21:26 | Outpatient (REF) | payer MEDICARE, BC, SELFPAY ==
[2022-12-09 21:53] LABS: Abs Immature Grans 0.04 10^3/uL (0.0-0.06); Absolute Basophil Count 0.03 10^3/uL (0.0-0.2); Absolute Eosinophil Count 0.02 10^3/uL (0.0-0.7); Absolute Lymphocyte Count 0.57 10^3/uL (1.2-3.4); Absolute Monocyte Count 0.85 10^3/uL (0.1-0.8); Absolute Neutrophil Count 7.29 10^3/uL (1.2-6.7); Basophils % 0.3; Eosinophils % 0.2; HGB 18.8 g/dL (13.5-17.5); Immature Grans % 0.5; Lymphocytes % 6.5; MCH 31.5 pg (27.0-33.0); MCHC 32.9 % (32.0-36.0); MCV 96 fL (80-95); Monocytes % 9.7; Neutrophils % 82.8; Platelet Count 281 10^3/uL (130-400); RBC 5.96 10^6/uL (4.36-5.78); RDW 15.2 % (11.8-14.1); RDW-SD 54.4 fL
[2022-12-09 21:59] LABS: HCT 57.2 % (40.0-50.0)
[2022-12-09 22:31] LABS: ALT 48 U/L (16-63); AST 25 U/L (15-37); Albumin 3.1 g/dL (3.4-5.0); Alkaline Phosphatase 106 U/L (46-116); Anion Gap 10.9 mmol/L (3-11); BUN 34 mg/dL (7-18); CO2 25.1 mmol/L (21.0-32.0); CREATININE 0.8 mg/dL (0.70-1.30); Calcium 9.6 mg/dL (8.5-10.1); Chloride 109 mmol/L (98-107); Estimated GFR 92.29 (mL/min/1.73m2); Ferritin 701 ng/mL (26-388); Folate 4.3 ng/mL (8.6-20.0); Glucose 130 mg/dL (74-106); Potassium 3.6 mmol/L (3.5-5.1); Sodium 145 mmol/L (136-145); TSH (W/Ref FT4) 0.53 uIU/mL (0.36-3.74); Total Protein 6.2 g/dL (6.4-8.2); Vitamin B12 397 pg/mL (193-986)
[2022-12-09 22:49] LABS: NT-proBNP 1334 pg/mL (<300)
[2022-12-09 23:01] LABS: Iron 53 ug/dL (65-175); Total Iron Binding Capacity 218 ug/dL (250-450); Transferrin Sat 24 % (20-55)
[2022-12-09 23:25] LABS: Vitamin D 25 Total 12.4 ng/mL (30-100)
== END 2022-12-09 21:27 | disposition home or self-care (01) ==
LOC: LBN 21:26
PROVIDERS: PCP Internal Medicine; Visit Provider Nurse Practitioner Gerontology
DX: R68.89 Other general symptoms and signs (principal)
CPT/HCPCS: 80053; 82306; 82607; 82728; 82746; 83036; 83540; 83550; 83735; 83880; 84443; 85025

== ENCOUNTER 2022-12-17 18:09 | Outpatient (REF) | payer MEDICARE, BC, SELFPAY ==
[2022-12-17 18:32] LABS: Abs Immature Grans 0.11 10^3/uL (0.0-0.06); Absolute Basophil Count 0.09 10^3/uL (0.0-0.2); Absolute Eosinophil Count 0.07 10^3/uL (0.0-0.7); Absolute Lymphocyte Count 1.52 10^3/uL (1.2-3.4); Absolute Monocyte Count 0.55 10^3/uL (0.1-0.8); Absolute Neutrophil Count 6.62 10^3/uL (1.2-6.7); Eosinophils % 0.8; HCT 55.2 % (40.0-50.0); HGB 17.8 g/dL (13.5-17.5); Immature Grans % 1.2; MCH 31.1 pg (27.0-33.0); MCHC 32.2 % (32.0-36.0); MCV 97 fL (80-95); MPV 9.5 fL (8.0-11.0); Monocytes % 6.1; Neutrophils % 73.9; Platelet Count 330 10^3/uL (130-400); RBC 5.72 10^6/uL (4.36-5.78); RDW-SD 53.6 fL; WBC 8.96 10^3/uL (4.4-10.8)
[2022-12-17 18:59] LABS: ALT 35 U/L (16-63); AST 19 U/L (15-37); Albumin 3.5 g/dL (3.4-5.0); Alkaline Phosphatase 104 U/L (46-116); Anion Gap 10.3 mmol/L (3-11); BUN 19 mg/dL (7-18); Bilirubin, Total 1.1 mg/dL (0.2-1.0); CO2 24.7 mmol/L (21.0-32.0); CREATININE 0.9 mg/dL (0.70-1.30); Calcium 9.5 mg/dL (8.5-10.1); Chloride 105 mmol/L (98-107); Estimated GFR 89.07 (mL/min/1.73m2); Glucose 119 mg/dL (74-106); NT-proBNP 564 pg/mL (<300); Potassium 4.5 mmol/L (3.5-5.1); Sodium 140 mmol/L (136-145); Total Protein 6.6 g/dL (6.4-8.2)
== END 2022-12-17 18:10 | disposition home or self-care (01) ==
LOC: LBN 18:09
PROVIDERS: PCP Internal Medicine; Visit Provider Nurse Practitioner Gerontology
DX: R68.89 Other general symptoms and signs (principal)
CPT/HCPCS: 80053; 83880; 85025

== ENCOUNTER 2022-12-25 17:08 | Outpatient (CLI) | payer MEDICARE, BC, SELFPAY ==
--- NOTE | 2022-12-25 06:00 | DI.RAD_ITS ---
Exam(s) XR PAIN CLINIC LUMBAR SP 2V EXAM: XR PAIN CLINIC LUMBAR SP 2V CLINICAL HISTORY: Dx: Lumbar Radiculopathy. TECHNIQUE: Fluoroscopy was provided for the referring physician for guidance with performing pain cl inic injection procedure. COMPARISON: No exams were available for comparison FINDINGS: Please see procedure note for details. Fluoro time: 16.2 seconds RADIATION DOSE DELIVERED: Kar=9.74 mGy
[2022-12-25 17:33] VITALS: BP 130/88; PULSE 75; RESP 20; TEMP 36.7; O2SAT 98
[2022-12-25] MEDS: methylPREDNISolone ACETATE 80 MG/ML VIAL IJ (18:25)
[2022-12-25] MEDS: Omnipaque 240 MG/ML 50 ML BTL IJ (18:31)
[2022-12-25 18:32] VITALS: BP 157/98; PULSE 78; RESP 14; O2SAT 97
--- NOTE | 2022-12-25 18:38 | PDOC.PAIN_ITS ---
Date of service: 12/25/22 Time of Service: 18:42 Pain Clinic Procedure Note Procedure Note Procedure Note: Lumbar Epidural Steroid Injection Procedure Note COMMENTS: He is a direct referral from his spine surgeon (Ashvin Dueñas MD at [facility] Dr. Dueñas is trying to avoid surgery. I did review Mr. Bradley's lumbar spine MRI. He has low back pain radiating to the bilateral legs (posterior thighs and calves). Dx: Lumbosacral radiculopathy Pre-procedure pain VAS was 3/10 Jaime Crouch Jr has been referred to the [facility] for lumbar epidural steroid injection. The patient was greeted by the nurse who verified patients name and . Patient was then taken to the fluoroscopy suite. The patient was interviewed and the medial record reviewed. There were no medical, pharmacologic, radiographic, or other structural contraindications to attempting fluoroscopically guided lumbar epidural steroid injection. Risks and expected side effects as well as potential benefits of the procedure were reviewed and voiced concerns expressed. The patient consent form was signed and witnessed. Standard patient time-out procedure was performed. The patient was placed in the prone position on the fluoroscopy table and automated blood pressure cuff and pulse oximeter applied. The skin entry point for entering/approaching the epidural space at L5-S1 and marked. Following thoro ugh chlorhexadine preparation of the skin and draping and 1% lidocaine infiltration of the skin entry point and subcutaneous tissues, a 18 gauge Touhy needle was placed under fluoroscopic guidance and with loss of resistance technique into the epidural space. Needle tip placement and depth were aided and confirmed by fluoroscopy. There was no paresthesia or return of blood or CSF through the needle. 1 cc's of Omnipaque 240 was injected with clear epidural spread confirmed with fluoroscopy. 80mg depomedrol was injected. There was not any unusual discomfort expressed by Jaime Crouch Jr. Patient's vital signs were stable throughout the procedure and were as recorded in nursing records. Follow up plans and appointments were discussed with patient. Post procedure instruction was given as documented in nursing records and having met discharge criteria and was discharged from the [facility]. COMMENTS: If this procedure is helpful, it can be completed up to 3 times per 12 months. Post-procedure pain VAS was 2/10. Delroy Lopez DO, MPH [facility]
== END 2022-12-25 17:09 | disposition home or self-care (01) ==
LOC: PC 17:09
PROVIDERS: PCP Internal Medicine; Visit Provider Preventive Medicine Occupational Medicine
DX: M54.17 Radiculopathy, lumbosacral region (principal); M54.50 Low back pain, unspecified
CPT/HCPCS: 62323; 72100; J1040; Q9967

== ENCOUNTER 2023-01-03 07:56 | Outpatient (CLI) | payer MEDICARE, BC, SELFPAY | END 2023-01-03 07:57 | disposition home or self-care (01) | LOC: DI.CARD 07:57 | PROVIDERS: PCP Internal Medicine; Visit Provider Internal Medicine Cardiovascular Disease | CPT/HCPCS: 93010 ==

== ENCOUNTER 2023-02-24 13:58 | Outpatient (REF) | payer MEDICARE, BC, SELFPAY ==
[2023-02-24 15:08] LABS: Abs Immature Grans 0.03 10^3/uL (0.0-0.06); Absolute Basophil Count 0.09 10^3/uL (0.0-0.2); Absolute Eosinophil Count 0.11 10^3/uL (0.0-0.7); Absolute Lymphocyte Count 1.35 10^3/uL (1.2-3.4); Absolute Monocyte Count 0.55 10^3/uL (0.1-0.8); Absolute Neutrophil Count 5.77 10^3/uL (1.2-6.7); Basophils % 1.1; Eosinophils % 1.4; HCT 56.3 % (40.0-50.0); HGB 18.3 g/dL (13.5-17.5); Immature Grans % 0.4; Lymphocytes % 17.1; MCH 31.6 pg (27.0-33.0); MCHC 32.5 % (32.0-36.0); MCV 97 fL (80-95); MPV 10.1 fL (8.0-11.0); Platelet Count 247 10^3/uL (130-400); RBC 5.79 10^6/uL (4.36-5.78); RDW 14.6 % (11.8-14.1); RDW-SD 52.2 fL
[2023-02-24 15:44] LABS: ALT 41 U/L (16-63); AST 22 U/L (15-37); Albumin 3.7 g/dL (3.4-5.0); Alkaline Phosphatase 121 U/L (46-116); Anion Gap 11.2 mmol/L (3-11); BUN 22 mg/dL (7-18); Bilirubin, Total 0.8 mg/dL (0.2-1.0); CO2 25.8 mmol/L (21.0-32.0); CREATININE 0.7 mg/dL (0.70-1.30); Calcium 9.4 mg/dL (8.5-10.1); Chloride 107 mmol/L (98-107); Estimated GFR 96.09 (mL/min/1.73m2); Glucose 105 mg/dL (74-106); NT-proBNP 822 pg/mL (<300); Potassium 4.4 mmol/L (3.5-5.1); Sodium 144 mmol/L (136-145); Total Protein 7.1 g/dL (6.4-8.2)
[2023-02-24 16:26] LABS: Calculated LDL 116 mg/dL (<100); Cholesterol 186 mg/dL (<200); HDL Cholesterol 48 mg/dL (40-60); Triglyceride 113 mg/dL (<150)
[2023-02-24 16:39] LABS: Hemoglobin A1C 5.8 % (<5.7)
== END 2023-02-24 13:59 | disposition home or self-care (01) ==
LOC: NCHCN 13:58
PROVIDERS: PCP Internal Medicine; Visit Provider Internal Medicine
DX: I50.9 Heart failure, unspecified (principal); I25.10 Atherosclerotic heart disease of native coronary artery without angina pectoris
CPT/HCPCS: 80053; 80061; 83036; 83880; 85025

== ENCOUNTER 2023-03-04 00:42 | Outpatient (CLI) | payer MEDICARE, BC, SELFPAY ==
--- NOTE | 2023-03-04 | DI.RAD_ITS ---
Exam(s) XR CHEST 2V PA LATERAL EXAM: XR CHEST 2V PA LATERAL CLINICAL HISTORY: CHEST PAIN, R07.9 TECHNIQUE: 2D digital imaging was performed. COMPARISON: CR CHEST 2 VIEWS PA,LAT from 12/30/2016 FINDINGS: HEART: Enlarged. Aorta: Tortuous. PULMONARY VASCULATURE: Normal. LUNGS: Clear. PLEURAL SPACE: No pleural effusion or pneumothorax. BONE:Unremarkable for age. IMPRESSION: No acute abnormality. DATA REPOSITORY: RADIATION DOSE DELIVERED:
== END 2023-03-04 01:02 ==
LOC: DI 00:42
PROVIDERS: PCP Internal Medicine; Visit Provider Nurse Practitioner Family
DX: R07.9 Chest pain, unspecified (principal)
CPT/HCPCS: 71046

== ENCOUNTER 2023-03-17 00:25 | Outpatient (CLI) | payer MEDICARE, BC, SELFPAY ==
--- NOTE | 2023-03-17 | DI.NM_ITS ---
APPROVED REPORT Exam: Pharmacologic Patient Location: Out-Patient Room/Bed: Stress Nurse: Joy Rodriguez RN Ordering Provider:NYASIA ALMANZAR, Contact Number: [phone] BMI: 43.04 Baseline Rhythm: Atrial Fibrillation Indications: Chest Pain Medical History Medical History: HFrEF, ambulatory dysfunction, non-compliant with medications, hypercholesterolemia, T2DM, Acetecholecystitis, morbid obesity, CAD, PE, TOM, HTN, Venous stasis, venous peripheral insuff iciency, Afib, long term care social worker anticoagulation. Cardiac Medications: metoprolol succinate, potassium citrate, nitro, lidocaine, furosemide, Vit D3, c elecoxib, baclofen, apixiban, allopurinol, jardiance, VitB Allergies: metformin Cardiac Risk Factors: PVD, CVD, HTN, HLD, DM, Obesity, former smoker Previous Cardiac Procedures: Stents Pretest Chest Pain Characteristics: none Exercise History: Sedentary Physical Disabilities: Legs Lung Sounds: Clear to auscultation Heart Sounds: Regular Stress Test Details Test: Pharmacologic stress testing performed using 0.4 mg of regadenoson per 5 mL given IV over 10 s econds. Nuclear Acquisition: Rest Tc-99m/Stress Tc-99m 1 day Rest Isotope: Tc-99m Sestamibi. Dose: 14.5 Date: 03/17/2023 Injection Time: 0930 Stress Isotope: Tc-99m Sestamibi. Dose: 46 Date: 03/17/2023 Injection Time: 1055 HR Resting HR Supine: 77 bpm Max Heart Rate (APMHR): 145.813599 bpm Target HR (85% APMHR): 123.373943 bpm Max HR Achieved: 86 bpm % of APMHR: 59.31 Recovery HR: 76 bpm BP Resting BP Supine: 140/82 mmHg Max BP: 140/78 mmHg Recovery BP: 140/78 mmHg ECG Resting ECG: Atrial Fibrillation Ectopy: PVCs Stress ECG: Atrial Fibrillation ST Change: No significant ST segment changes noted Arrhythmia: VPC's Recovery ECG: Atrial Fibrillation Recovery ST Change: No significant ST segment changes noted Recovery Arrhythmia: VPC Clinical Rate Pressure Product: [id number] Stress ECG Conclusion 1. Resting electrocardiogram showed atrial fibrillation, poor R wave progression 2. Patient underwent testing using pharmacologic stress with regadenoson 3. Peak heart rate achieved was 59% of predicted for age 4. Electrocardiographic portion of the test was nondiagnostic 5. See MPI report Stress Test Summary STAGE HR BP SpO2 Symptoms NOTES Supine 77 140/82 93 1 min post Lexiscan injection 73 140/78 3 min post Lexiscan injection 75 130/68 6 min post Lexiscan injection 76 140/78 Physical limitation so lexiscan given with patient laying on stretcher, No SE noted. MPI Conclusion Myocardial perfusion is notable for a fixed inferobasal and posterolateral defect. There is no signi ficant ischemia EF is 24% with inferobasal and posterolateral wall motion abnormalities Radiologist Interpretation Radiologist agrees with Virtualization Engineer's Interpretation. Radiologist Interpretation by: Theodore Hughes MD Interpretation Date/Time: 03/19/2023 15:01:52
[2023-03-17] MEDS: Regadenoson 0.4 MG/5 ML SYR IVP (10:49)
== END 2023-03-17 00:45 ==
LOC: DI 00:25
PROVIDERS: PCP Internal Medicine; Visit Provider Internal Medicine
DX: R07.9 Chest pain, unspecified (principal)
CPT/HCPCS: 78452; 93016; 93018; 93017; J2785

== ENCOUNTER → 2023-04-18 00:33 | Outpatient (CLI) | payer MEDICARE, BC, SELFPAY | PROVIDERS: PCP Internal Medicine; Visit Provider Internal Medicine | DX: I50.9 Heart failure, unspecified (principal) | CPT/HCPCS: 93306 ==

== ENCOUNTER 2023-05-01 10:36 | Outpatient (REF) | payer MEDICARE, BC, SELFPAY ==
[2023-05-01 16:33] LABS: Calculated LDL 76 mg/dL (<100); Cholesterol 159 mg/dL (<200); HDL Cholesterol 47 mg/dL (40-60); Triglyceride 180 mg/dL (<150)
== END 2023-05-01 10:37 | disposition home or self-care (01) ==
LOC: NCHCN 10:36
PROVIDERS: PCP Internal Medicine; Visit Provider Internal Medicine
DX: I25.10 Atherosclerotic heart disease of native coronary artery without angina pectoris (principal)
CPT/HCPCS: 80061

== ENCOUNTER 2023-10-15 13:04 | Outpatient (CLI) | payer MEDICARE, BC, SELFPAY ==
--- NOTE | 2023-10-15 06:00 | DI.RAD_ITS ---
Exam(s) XR PAIN CLINIC LUMBAR SP 2V EXAM: XR PAIN CLINIC LUMBAR SP 2V CLINICAL HISTORY: Dx: Lumbar Radiculopathy. TECHNIQUE: Fluoroscopy was provided for the referring physician for guidance with performing pain cl inic injection procedure. COMPARISON: No exams were available for comparison FINDINGS: Please see procedure note for details. Fluoro time: 27.1 seconds RADIATION DOSE DELIVERED: Ka,r=22.6 mGy
[2023-10-15 13:16] VITALS: BP 164/87; PULSE 65; RESP 20; TEMP 36.5; O2SAT 96
--- NOTE | 2023-10-15 13:53 | PDOC.PAIN_ITS ---
Date of service: 10/15/23 Time of Service: 13:53 Pain Managment Procedure Note Procedure Note Procedure Note: PROCEDURE NOTE LUMBAR EPIDURAL STEROID INJECTION Date of Service: October 15, 2023 Patient:Jaime Patel Jr, V? Provider: Delroy Fleming DO, MPH Jaime Crouch Jr has been referred to the [facility] for a lumbar epidural steroid injection. Pre-operative diagnosis: Lumbosacral Radiculopathy Post-operative diagnosis: Same Pre-Procedure Pain: VAS= 6/10 Comments: He had >5 months of >50% pain relief with his last LESI. His last Hem A1c was 5.8 on 02/24/2023. Jaime was interviewed and the medical record was reviewed.? There were no medical, pharmacologic, radiographic or other structural contraindications to attempting fluoroscopically guided Lumbar epidural steroid injection.? Risks, potential side effects, indications, and potential benefits of the procedure were reviewed with Jaime.? Questions and concerns were addressed.? After it was clear that Jaime was fully informed about the procedure, the printed consent form was signed by the patient and myself.? Jaime was placed in the prone position on the fluoroscopy table and automated blood pressure cuff and pulse oximeter applied. The skin entry point for entering/approaching the epidural space for the lumbar epidural steroid injection was marked. Following thorough chlorhexadine preparation of the skin and draping and 1% lidocaine infiltration of the skin entry point and subcutaneous tissues, an 18 gauge Touhy needle was placed and advanced under fluoroscopic guidance and with loss of resistance technique into the L5-S1 epidural space. Needle tip placement and depth were aided and confirmed by fluoroscopy. There was no paresthesia or return of blood or CSF through the needle. 1 mls of Omnipaque 240 was injected with clear epidural spread confirmed with fluoroscopy. 80 mg of Depo-Medrol was? injected. This was followed by 1 ml of preservative-free normal saline to flush the steroid out of the needle. There was no unusual discomfort expressed by Jaime. The needle was withdrawn without difficulty. (49 mls of Omnipaque was wasted) Jaime was observed and was without hemodynamic, neurologic, or allergic reactions.? Fluoroscopic images were digitally archived. Jaime's vital signs were stable throughout the procedure and were as recorded in nursing records. Follow up plans and appointments were discussed with Jaime. Post procedure instruction was given as documented in nursing records and having met discharge criteria Jaime was discharged from the [facility]. COMMENTS: No apparent complications. Post-procedure pain: VAS= 1/10. Jaime to contact [facility] as needed. If at least 50% improvement in pain and/or function for at least 3 months is achieved, this procedure can be repeated. I personally performed this entire procedure. DELROY FLEMING DO, MPH ABPMR-subspecialty board certification in Pain Medicine [facility]
[2023-10-15 14:00] VITALS: BP 154/92; PULSE 74; RESP 16; O2SAT 94
[2023-10-15] MEDS: Omnipaque 240 MG/ML 50 ML BTL IJ (14:07)
[2023-10-15] MEDS: Epidural Tray 1 EACH MC (14:07)
[2023-10-15] MEDS: methylPREDNISolone ACETATE 80 MG/ML VIAL IJ (14:08)
== END 2023-10-15 13:05 | disposition home or self-care (01) ==
LOC: PC 13:05
PROVIDERS: PCP Family Medicine; Visit Provider Preventive Medicine Occupational Medicine
DX: M54.50 Low back pain, unspecified (principal); M54.17 Radiculopathy, lumbosacral region
CPT/HCPCS: 00123; 62323; 72100; J1040; Q9967

== ENCOUNTER 2023-10-27 18:10 | Outpatient (REF) | payer MEDICARE, BC, SELFPAY ==
[2023-10-27 15:05] LABS: Anion Gap 11.2 mmol/L (3-11); BUN 19 mg/dL (7-18); CO2 25.8 mmol/L (21.0-32.0); CREATININE 0.8 mg/dL (0.70-1.30); Calcium 9.9 mg/dL (8.5-10.1); Chloride 104 mmol/L (98-107); Estimated GFR 91.72 (mL/min/1.73m2); Glucose 120 mg/dL (74-106); Potassium 4.7 mmol/L (3.5-5.1); Sodium 141 mmol/L (136-145)
[2023-10-27 15:42] LABS: Hemoglobin A1C 5.5 % (<5.7)
== END 2023-10-27 18:11 | disposition home or self-care (01) ==
LOC: NCHCN 18:10
PROVIDERS: PCP Family Medicine; Referring Provider Family Medicine; Visit Provider Family Medicine
DX: E11.9 Type 2 diabetes mellitus without complications (principal); I10 Essential (primary) hypertension
CPT/HCPCS: 80048; 83036

== ENCOUNTER 2024-01-09 15:13 | Outpatient (REF) | payer MEDICARE, BC, SELFPAY ==
[2024-01-09 13:39] LABS: Bilirubin Small (Negative); Blood Negative (Negative); Clarity Clear (Clear); Glucose Negative (Negative); Ketones Trace mg/dL (Negative); Leukocyte Esterase Negative (Negative); Nitrite Negative (Negative); Specific Gravity 1.025 (1.005-1.025); pH 6.5 (5-8)
[2024-01-09 13:53] LABS: Bacteria Negative HPF (Negative); C & S Indicated? C&S Done As Ordered; Casts 3-5 Hyaline LPF (Negative); Crystals Negative HPF (Negative); Epithelial Cells Rare HPF (Negative); Mucus Negative (Negative); RBC Negative HPF (0-2); WBC Negative HPF (0-5)
== END 2024-01-09 15:14 | disposition home or self-care (01) ==
LOC: LBN 15:13
PROVIDERS: PCP Family Medicine; Visit Provider Family Medicine
DX: N39.0 Urinary tract infection, site not specified (principal)
CPT/HCPCS: 81003; 81015; 87086

== ENCOUNTER 2024-02-24 19:31 | Observation (INO) | payer MEDICARE, BC, SELFPAY ==
[2024-02-24] VITALS (25 sets, daily range): BP systolic 113; BP diastolic 64; PULSE 42–88; RESP 14–27; TEMP 37; O2SAT 88–98
--- NOTE | 2024-02-24 19:54 | W.ED.GENAD ---
Discharge Plan Disposition Patient Disposition: Admit to [facility] Discharge Details Clinical Impression: Bilateral leg weakness Primary Care Provider: Ginette Villavicencio ED Provider: Emmanuel Gillette Home Meds and New Rx's Prescriptions: No Action tirzepatide 2.5 mg/0.5 mL pen injector 2.5 mg subcut QWEEK isosorbide mononitrate 10 mg tablet 10 mg PO BID Rx Instructions: give doses 7 hrs apart metoprolol succinate 100 MG tablet extended release 24 hr 200 mg PO DAILY nitroglycerin 0.4 MG tablet, sublingual 0.4 mg Sublingual PRN PRN (Reason: Chest Pain) lisinopril 40 MG tablet 20 mg PO DAILY furosemide 40 mg tablet 10 mg PO QAM potassium citrate 10 MEQ tablet extended release 20 meq PO BID allopurinol 300 MG tablet 300 mg PO DAILY Acetaminophen [Tylenol] 650 mg PO Q4H PRN PRNQty: 0 0RF polyethylene glycol 3350 17 gram Powder In Packet 17 g PO DAILY PRN PRN (Reason: Constipation) Qty: 0 0RF Patient Comments: 11/28/22: not taking docusate sodium [Colace] 100 mg Capsule 100 mg PO TID PRN PRNQty: 0 0RF cholecalciferol (vitamin D3) 125 mcg (5,000 unit) capsule 125 mcg PO DAILY diphenhydramine HCl 25 mg Tablet 25 mg PO DIRECTED PRN nystatin 100,000 unit/gram powder 1 applic topical TID ezetimibe 10 mg tablet 10 mg PO DAILY Xarelto 20 mg tablet 20 mg PO DAILY betamethasone dipropionate 0.05 % cream 0.05 applic TOPICAL DAILY HPI General Date/Time Provider Initiated Documentation: 02/24/24 19:52. HPI Narrative: [facility] This is a chronically ill-appearing normothermic and not tachycardic 78-year-old male with bilateral lower extremity weakness concerning for multiple etiologies. No pain out of proportion to suggest necrotizing soft tissue infection. No dysuria nor frequency so my suspicion for UTI is low. No fevers so my suspicion is low for sepsis. No cough to suggest pneumonia. No chest pain to suggest ACS. No significant lower extremity pitting edema to suggest acute heart failure. No loss of bowel or bladder control to suggest cauda equina syndrome. No fevers so my suspicion is low for spinal epidural abscess. No trauma to back and no back tenderness so my suspicion is low for spinal epidural hematoma as patient has not recently had any spinal manipulation. Bilateral feet warm well-perfused so I am not concerned for critical limb ischemia. No focal weakness so my suspicion for CVA is low as I do not feel that the patient required CT scan nor would he be a tPA candidate. No tonic-clonic activity to suggest seizures no indication for EEG. No nuchal rigidity nor fevers to suggest meningitis and no indication for LP. Patient does have dysuria and frequency so we will obtain a urinalysis to assess for UTI. Patient has a stage I sacral decubitus ulcer but no signs of superinfection. Patient did not strike his head some indication for cross-sectional imaging of his head. Will assess for any acute electrolyte. Given that patient cannot stand to transfer I do not feel that he will be able to be discharged from the emergency department. Unfortunately physical therapy is not available at this hour of the evening. Soft nontender abdomen so my suspicion is low for intra-abdominal infection so I did not feel the patient required a CT scan of his abdomen. No falls no hip pain so my suspicion for hip fracture was low so I did not obtain imaging of his hips. No objective weakness to suggest increased risk for Guillain-Gonzalez? syndrome. 8:41 PM Comprehensive metabolic panel showing no CARINE. Mild hyperglycemia but no anion gap. Mild elevation of alkaline phosphatase similar to prior. CBC shows erythrocytosis with macrocytosis. No leukocytosis. No thrombocytopenia. Negative troponin. Urinalysis showing no blood negative leuk esterase negative nitrites. Not consistent with UTI. 9:23 PM CK not consistent with rhabdomyolysis. I was in touch with Dr. Downs who agreed graciously to accept the patient for hospitalization. I updated the patient on this plan. HPI This is a 78-year-old male with history of diabetes obesity coronary artery disease TOM hypertension and heart failure arrived to the emergency department via ambulance in the setting of bilateral lower extremity weakness. Patient reports that he cannot stand up on his legs. He is generally wheelchair-bound but stands and pivots using a walker. He says that he feels too weak to stand. He says that he has an upcoming appointment for pain control on his back. He denies any recent falls. No recent head strikes. No chest pain or shortness of breath. He says that he sees home health and they wrapped his legs. He previously had leg sores but does not have any recurrent sores. He lives with his . He does endorse some dysuria. He has no flank pain. He did not notice generalized weakness but no focal weakness. He says that he began feeling weak after eating woke up from a nap. Exam General: Chronically ill-appearing in no acute distress speaking in complete sentences. Head: Normocephalic, atraumatic. Eye: Extraocular eye movements intact. No conjunctival injection. No scleral icterus. Ear, nose, mouth, throat: Grossly normal inspection. Normal voice, handling secretions normally. Neck: Trachea midline. Cardiovascular: Well-perfused distal extremities. Regular rate and rhythm Respiratory: Nonlabored respiration. Clear lungs bilaterally Gastrointestinal: Nondistended abdomen. Soft nontender Musculoskeletal: Mild 1+ lower extremity nonpitting edema. Moving all 4 extremities spontaneously. 5 out of 5 strength bilateral lower extremities dorsi and plantarflexion. Back: Stage I sacral decubitus ulcer. No midline thoracic nor lumbar spinal tenderness. No rash to back. Skin: Normal for age and race, grossly normal temperature and turgor. No acute rash. Neurologic: Alert and appropriate, no apparent acute deficits. Psychiatric: Mood and manner are appropriate. Grooming and personal hygiene are appropriate. Related Data Home Medications Medication Instructions Recorded Confirmed lisinopril 40 mg tablet 20 mg PO DAILY 09/07/14 02/24/24 metoprolol succinate 100 mg 200 mg PO DAILY 09/07/14 02/24/24 tablet,extended release 24 hr nitroglycerin 0.4 mg sublingual 0.4 mg sublingual PRN PRN Chest 09/07/14 02/24/24 tablet Pain allopurinol 300 mg tablet 300 mg PO DAILY 12/30/16 02/24/24 potassium citrate 10 mEq (1,080 20 meq PO BID 12/30/16 02/24/24 mg) tablet,extended release Acetaminophen [Tylenol] 650 mg PO Q4H PRN PRN ##0 11/06/21 02/24/24 docusate sodium 100 mg capsule 100 mg PO TID PRN PRN #0 caps 08/26/22 02/24/24 (Colace) polyethylene glycol 3350 17 gram 17 g PO DAILY PRN PRN Constipation 08/26/22 02/24/24 oral powder packet #0 ea diphenhydramine HCl 25 mg tablet 25 mg PO DIRECTED PRN 11/28/22 02/24/24 nystatin 100,000 unit/gram topical 1 applic topical TID 11/28/22 02/24/24 powder cholecalciferol (vitamin D3) 125 125 mcg PO DAILY 12/18/22 02/24/24 mcg (5,000 unit) capsule furosemide 40 mg tablet 10 mg PO QAM 02/09/23 02/24/24 isosorbide mononitrate 10 mg tablet 10 mg PO BID 10/02/23 02/24/24 tirzepatide 2.5 mg/0.5 mL 2.5 mg subcut QWEEK 10/02/23 02/24/24 subcutaneous pen injector betamethasone dipropionate 0.05 % 0.05 applic topical DAILY 02/24/24 02/24/24 topical cream ezetimibe 10 mg tablet 10 mg PO DAILY 02/24/24 02/24/24 rivaroxaban 20 mg tablet (Xarelto) 20 mg PO DAILY 02/24/24 02/24/24 Previous Rx's Medication Instructions Recorded Acetaminophen [Tylenol] 650 mg PO Q4H PRN PRN ##0 11/06/21 docusate sodium 100 mg capsule 100 mg PO TID PRN PRN #0 caps 08/26/22 (Colace) polyethylene glycol 3350 17 gram 17 g PO DAILY PRN PRN Constipation 08/26/22 oral powder packet #0 ea Allergies Allergy/AdvReac Type Severity Reaction Status Date / Time metformin AdvReac DIARRHEA Verified 02/24/24 19:41 General Stated Complaint: GenMedical NADINE: 3 Course Vital Signs Vital signs: Vital Signs Pulse 86 02/24/24 19:25 Respiratory Rate 16 02/24/24 19:25 Pulse Oximetry 96 02/24/24 19:25 Temperature Source Tympanic 02/24/24 19:25 Pulse 86 02/24/24 19:25 Respiratory Rate 16 02/24/24 19:25 Respiratory Effort Normal 02/24/24 19:37 Pulse Oximetry 96 02/24/24 19:25 Oxygen Delivery Method Room Air 02/24/24 19:25 Oxygen Flow Rate 0 02/24/24 19:25 Pain Level 2 02/24/24 19:25 Medical Decision Making Quality:SDOH Health Related Social Needs: No Data to Display PFSH All Active Problems (Updated 02/24/24 @ 22:28 by Delroy Downs) Bilateral leg weakness (Acute) Weight loss due to medication (Acute) Chest pain (Acute) Physician orders for life-sustaining treatment (POLST) form indicates patient wish for [id number] status (Acute) Advance care planning (Acute) Palliative care patient (Acute) HFrEF (heart failure with reduced ejection fraction) (Chronic) Ambulatory dysfunction (Acute) Bilateral leg weakness (Acute) Lumbago (Chronic) Non compliance with medical treatment (Acute) Trochanteric bursitis, left hip (Acute) H/O surgical procedure (Chronic) a. Bilateral hip replacement b. Nephrolithotomy c. Right ureteral stent placement d. Coronary artery stent placement 2006 e. Adult circumcision f. Colonoscopy 11/2013 History of revision of total replacement of left hip joint (Acute 11/01/20) Acetabular revision with head/liner exchange for fractured femoral head prosthesis. Pure hypercholesterolemia, unspecified (Acute) Cerumen impaction (Acute) Body mass index (BMI) 50.0-59.9, adult (Chronic) Type 2 diabetes mellitus without complications (Chronic) Neoplasm of unspecified behavior of bone, soft tissue, and skin (Acute) Nasal dryness (Acute) Acute cholecystitis (Acute 09/07/14) Morbid obesity (Chronic) CAD (coronary artery disease) (Chronic) a. coronary artery stent placement 2006 Personal history of pulmonary embolism (Chronic) Hypertension (Chronic) TOM (obstructive sleep apnea) (Chronic) Personal history of kidney stones (Chronic) a. uric acid stones Venous stasis ulcer (Chronic) Venous (peripheral) insufficiency (Chronic) Medical History Venous stasis ulcer of left lower extremity HNP (herniated nucleus pulposus), lumbar Relative polycythemia Failed total hip arthroplasty Heart failure with preserved ejection fraction CAD (coronary artery disease) Cholangitis Nephrolithiasis Phimosis Pulmonary embolism Hx of pulmonary artery thrombosis Venous stasis ulcer of ankle limited to breakdown of skin without varicose veins Anticoagulant long-term use Atrial fibrillation Surgical History H/O bilateral hip replacements Social History Smoking/Tobacco Use Status: Former Tobacco Use Smoking risk assessment performed?: Yes Alcohol Intake: never Drug use: Never Substance use type: does not use Household members: spouse Housing: house What is your relationship status?: Panel score (0-1 are the most socially isolated patients): 1 Do you feel safe at home: Yes Do you feel safe in your relationship?: Yes
[2024-02-24 20:01] LABS: Abs Immature Grans 0.05 10^3/uL (0.0-0.06); Absolute Basophil Count 0.08 10^3/uL (0.0-0.2); Absolute Eosinophil Count 0.06 10^3/uL (0.0-0.7); Absolute Lymphocyte Count 0.79 10^3/uL (1.2-3.4); Absolute Monocyte Count 0.68 10^3/uL (0.1-0.8); Absolute Neutrophil Count 8.35 10^3/uL (1.2-6.7); Basophils % 0.8 %; Eosinophils % 0.6 %; HGB 17.6 g/dL (13.5-17.5); Immature Grans % 0.5 %; Lymphocytes % 7.9 %; MCH 32.5 pg (27.0-33.0); MCHC 33.2 % (32.0-36.0); MCV 98 fL (80-95); MPV 9.1 fL (8.0-11.0); Monocytes % 6.8 %; Neutrophils % 83.4 %; Platelet Count 292 10^3/uL (130-400); RBC 5.42 10^6/uL (4.36-5.78); RDW 14.1 % (11.8-14.1); RDW-SD 51.1 fL; WBC 10.01 10^3/uL (4.4-10.8)
[2024-02-24 20:17] LABS: ALT 23 U/L (16-63); AST 15 U/L (15-37); Albumin 3.7 g/dL (3.4-5.0); Alkaline Phosphatase 124 U/L (46-116); Anion Gap 10.4 mmol/L (3-11); BUN 30 mg/dL (7-18); Bilirubin, Total 0.6 mg/dL (0.2-1.0); CO2 24.6 mmol/L (21.0-32.0); CREATININE 1.1 mg/dL (0.70-1.30); Calcium 9.7 mg/dL (8.5-10.1); Chloride 108 mmol/L (98-107); Estimated GFR 69.57 (mL/min/1.73m2); Glucose 130 mg/dL (74-106); Potassium 3.9 mmol/L (3.5-5.1); Sodium 143 mmol/L (136-145); Total Protein 7.2 g/dL (6.4-8.2); Troponin I < 50 ng/L (< or =60)
[2024-02-24 20:20] LABS: Bilirubin Small (Negative); Blood Negative (Negative); Clarity Clear (Clear); Glucose Negative (Negative); Ketones Trace mg/dL (Negative); Leukocyte Esterase Negative (Negative); Nitrite Negative (Negative); Specific Gravity >= 1.030 (1.005-1.025); pH 5.5 (5-8)
[2024-02-24 20:30] LABS: Bacteria Rare HPF (Negative); C & S Indicated? No; Casts Negative LPF (Negative); Crystals Negative HPF (Negative); Epithelial Cells Rare HPF (Negative); Mucus Heavy (Negative); RBC 0-2 HPF (0-2); WBC 0-2 HPF (0-5)
[2024-02-24 21:02] LABS: Creatine Kinase 30 U/L (39-308)
[2024-02-24] MEDS: Acetaminophen 500 MG TAB 1000 MG PO (21:35)
--- NOTE | 2024-02-24 22:14 | HPE_ITS ---
Date of service: 02/24/24 Time of Service: 22:15 Assessment and Plan Assessment and plan (1) Bilateral leg weakness: Start date: 02/24/24 Status: Acute Assessment and plan: This is a 78-year-old gentleman who chronically has problems with ambulation using a walker to transfer to wheelchair and then moves about with fairly independent ADL activity living with his . He had sudden change in weakness and was brought to the ED for evaluation left by his . He is slightly dry with his urine concentrated and having chronic mild polycythemia which is worsened and may indicate hemoconcentration. He will be admitted for IV hydration and holding his low-dose furosemide for now. He should be evaluated by outpatient therapy and physical therapy and increase services at home versus placement for chronic care if he cannot return home. Discussed the need to be had with his and the PCP need to follow-up on this problem. He will be on observation hopefully to return to baseline quickly and return home for long- term planning. If he is not improving, consider imaging of the low back with CT of the LS spine at least. He is a DNR/DNI. (2) TOM (obstructive sleep apnea): Status: Chronic Assessment and plan: Continue outpatient therapy and follow-up on polycythemia the patient did not be considered therapeutic phlebotomy if necessary. More aggressive treatment of his obesity and respiratory symptoms would be helpful. IV hydration may help this. (3) Type 2 diabetes mellitus without complications: Status: Chronic Assessment and plan: Patient is on diet control with weight loss using GLP-1 agonist also helping this problem. Monitor while in the hospital. Qualifiers: Diabetes mellitus long term care administrator insulin use: without penitentiary use Qualified Code(s): E11.9 - Type 2 diabetes mellitus without complications (4) Hypertension: Status: Chronic Assessment and plan: Chronic and stable with patient to continue outpatient medication while hospitalized. Qualifiers: Hypertension type: primary hypertension Qualified Code(s): I10 - Essential (primary) hypertension (5) Body mass index (BMI) 50.0-59.9, adult: Status: Chronic Assessment and plan: Morbidly obese but losing weight with GLP-1 agonist. Continue follow-up with PCP. (6) CAD (coronary artery disease): Status: Chronic Assessment and plan: Active the patient to continue outpatient therapy. Qualifiers: Associated angina: without angina Coronary Disease-Associated Artery/Lesion type: [place] artery [place] vs. transplanted heart: [place] heart Qualified Code(s): I25.10 - Atherosclerotic heart disease of [place] coronary artery without angina pectoris (7) Personal history of pulmonary embolism: Status: Chronic Assessment and plan: Patient is on chronic Xarelto which will be continued while hospitalized. (8) Venous (peripheral) insufficiency: Status: Chronic Assessment and plan: Patient does have chronic venous stasis of the lower extremities with no open sores presently. There are no signs of infection. (9) Nephrolithiasis: Assessment and plan: Patient does have chronic nephrolithiasis on medical therapy with low-dose Lasix and potassium citrate as well as allopurinol. I am not sure what the type of stone she has had in the past. History of Present Illness History of Present Illness Chief Complaint: Bilateral leg weakness and unable to stand with sweaty walker Narrative: This is a 78-year-old male patient who lives at home with his and usually is able to stand with a walker and pivot to his wheelchair to move around in his house. Usually has to get up at night to go to the bathroom and uses a bedside commode. He states that he had sudden onset of weakness in both legs where he could not stand and does admit to increased sweatiness and having some difficulty handling his walker because of the sweats. He also feels weaker in his arms. He thinks the heat and humidity has been making him weaker but was severe today. He does not have regularly in his house. He denies any change in his appetite or fluid intake. Has had no cough. His legs are chronically swollen and wrapped and there is been no skin breakdown. He has an old fever or rigors. He does not urinate frequently with this stable. He is on an injection which helped with weight loss that he has been losing weight though he is morbidly obese. ED evaluation did not reveal any acute process with the patient chronically slightly polycythemic with H&H elevated which may be secondary to his obesity and sleep apnea. His other lab work at baseline and there is no sign of urinary tract infection. Did not have an elevated WBC. There is no indication for imaging. Patient's said that she cannot take care of him at home but he could not stand and do his usual independent ADL activity. They do have help at home but not daily. Patient may need more help at home versus placement if he is not improving after observation overnight and evaluation with PT in the morning. tax services professional did be engaged with patient and his . He is a DNR/DNI. Review of Systems Narrative: 13 point review of systems significant for slow weight loss on treatment and acutely has been more concentrated urine with increased sweating and the heat at home, otherwise unrevealing or stable. PFSH All Active Problems (Updated 02/24/24 @ 22:28 by Delroy Downs) Bilateral leg weakness (Acute) Weight loss due to medication (Acute) Chest pain (Acute) Physician orders for life-sustaining treatment (POLST) form indicates patient wish for [id number] status (Acute) Advance care planning (Acute) Palliative care patient (Acute) HFrEF (heart failure with reduced ejection fraction) (Chronic) Ambulatory dysfunction (Acute) Bilateral leg weakness (Acute) Lumbago (Chronic) Non compliance with medical treatment (Acute) Trochanteric bursitis, left hip (Acute) H/O surgical procedure (Chronic) a. Bilateral hip replacement b. Nephrolithotomy c. Right ureteral stent placement d. Coronary artery stent placement 2006 e. Adult circumcision f. Colonoscopy 11/2013 History of revision of total replacement of left hip joint (Acute 11/01/20) Acetabular revision with head/liner exchange for fractured femoral head prosthesis. Pure hypercholesterolemia, unspecified (Acute) Cerumen impaction (Acute) Body mass index (BMI) 50.0-59.9, adult (Chronic) Type 2 diabetes mellitus without complications (Chronic) Neoplasm of unspecified behavior of bone, soft tissue, and skin (Acute) Nasal dryness (Acute) Acute cholecystitis (Acute 09/07/14) Morbid obesity (Chronic) CAD (coronary artery disease) (Chronic) a. coronary artery stent placement 2006 Personal history of pulmonary embolism (Chronic) Hypertension (Chronic) TOM (obstructive sleep apnea) (Chronic) Personal history of kidney stones (Chronic) a. uric acid stones Venous stasis ulcer (Chronic) Venous (peripheral) insufficiency (Chronic) Medical History Venous stasis ulcer of left lower extremity HNP (herniated nucleus pulposus), lumbar Relative polycythemia Failed total hip arthroplasty Heart failure with preserved ejection fraction CAD (coronary artery disease) Cholangitis Nephrolithiasis Phimosis Pulmonary embolism Hx of pulmonary artery thrombosis Venous stasis ulcer of ankle limited to breakdown of skin without varicose veins Anticoagulant long-term use Atrial fibrillation Surgical History H/O bilateral hip replacements Social History Smoking/Tobacco Use Status: Former Tobacco Use Smoking risk assessment performed?: Yes Alcohol Intake: never Drug use: Never Substance use type: does not use Household members: spouse Housing: house What is your relationship status?: Panel score (0-1 are the most socially isolated patients): 1 Do you feel safe at home: Yes Do you feel safe in your relationship?: Yes Meds Allergies and Home Medications Allergies Allergy/AdvReac Type Severity Reaction Status Date / Time metformin AdvReac DIARRHEA Verified 02/24/24 19:41 Home Medications Medication Instructions Recorded Confirmed Type lisinopril 40 mg tablet 20 mg PO DAILY 09/07/14 02/24/24 History metoprolol succinate 100 mg 200 mg PO DAILY 09/07/14 02/24/24 History tablet,extended release 24 hr nitroglycerin 0.4 mg sublingual 0.4 mg sublingual PRN PRN Chest 09/07/14 02/24/24 History tablet Pain allopurinol 300 mg tablet 300 mg PO DAILY 12/30/16 02/24/24 History potassium citrate 10 mEq (1,080 20 meq PO BID 12/30/16 02/24/24 History mg) tablet,extended release Acetaminophen [Tylenol] 650 mg PO Q4H PRN PRN ##0 11/06/21 02/24/24 Rx docusate sodium 100 mg capsule 100 mg PO TID PRN PRN #0 caps 08/26/22 02/24/24 Rx (Colace) polyethylene glycol 3350 17 gram 17 g PO DAILY PRN PRN Constipation 08/26/22 02/24/24 Rx oral powder packet #0 ea diphenhydramine HCl 25 mg tablet 25 mg PO DIRECTED PRN 11/28/22 02/24/24 History nystatin 100,000 unit/gram topical 1 applic topical TID 11/28/22 02/24/24 History powder cholecalciferol (vitamin D3) 125 125 mcg PO DAILY 12/18/22 02/24/24 History mcg (5,000 unit) capsule furosemide 40 mg tablet 10 mg PO QAM 02/09/23 02/24/24 History isosorbide mononitrate 10 mg tablet 10 mg PO BID 10/02/23 02/24/24 History tirzepatide 2.5 mg/0.5 mL 2.5 mg subcut QWEEK 10/02/23 02/24/24 History subcutaneous pen injector betamethasone dipropionate 0.05 % 0.05 applic topical DAILY 02/24/24 02/24/24 History topical cream ezetimibe 10 mg tablet 10 mg PO DAILY 02/24/24 02/24/24 History rivaroxaban 20 mg tablet (Xarelto) 20 mg PO DAILY 02/24/24 02/24/24 History Exam Narrative Exam Narrative: General: Patient appears older than stated age, morbidly obese lying flat in bed not able to move his legs. He is in no acute distress. He does appear chronically ill. He is alert and oriented x 3. HEENT: Normocephalic, eyes with pupils equal and reactive light symmetrically, extraocular movement intact and sclera anicteric. Oropharynx with dry mucosa poor dentition. Neck: Supple without JVD. Back: Unable to examine with patient unable to sit up. Lungs: Patient unable to sit up with lungs examined and generally being clear patient without focal rales or rhonchi. Fair vision. Heart: Regular rate and rhythm with no murmurs or gallops appreciated. Abdomen: Obese contour, soft and nontender to palpation no palpable hepatosplenomegaly. Patient does have a pannus. Bowel sounds positive all quadrants. Genitalia/rectal: Exam deferred. Extremities: Nonpitting edema with patient's legs wrapped having chronic venous stasis changes of skin over legs reported by ED provider to unwraped his legs. Patient states there were no open ulcers. Left leg is more cold than right chronically. No clubbing or cyanosis. Fair capillary refill. Skin: Pale, warm and dry. Neuro: Cranial nerves II through XII grossly intact, no tremor or increased tone. Patient is unable to lift legs and has difficulty sitting up in bed appearing acutely weak though there is no focal abdomen patient able to move feet. He also is able to move his hands and arms. No Babinski's. Psych: Normal affect and mood the patient appears to minimize his physical disabilities. No abnormal thought processes. Remote and recent memory grossly intact. Insight poor. Results Labs 02/25/24 06:23 02/25/24 06:23 Labs: Laboratory Results - last 24 hr 02/24/24 02/24/24 19:40 20:10 WBC 10.01 RBC 5.42 Hgb 17.6 H Hct 53.0 H MCV 98 H MCH 32.5 MCHC 33.2 RDW 14.1 Plt Count 292 MPV 9.1 Immature Gran % 0.5 Neutrophils % 83.4 Lymphocytes % 7.9 Monocytes % 6.8 Eosinophils % 0.6 Basophils % 0.8 Nucleated RBC % 0.0 Absolute Neutrophils 8.35 H Absolute Lymphocytes 0.79 L Absolute Monocytes 0.68 Absolute Eosinophils 0.06 Absolute Basophils 0.08 Sodium 143 Potassium 3.9 Chloride 108 H Carbon Dioxide 24.6 Anion Gap 10.4 BUN 30 H Creatinine 1.1 Est GFR (CKD-EPI 2020) 69.57 Glucose 130 H Calcium 9.7 Total Bilirubin 0.6 AST 15 ALT 23 Alkaline Phosphatase 124 H Creatine Kinase 30 L Troponin I < 50 Total Protein 7.2 Albumin 3.7 Urine Color Yellow Urine Clarity Clear Urine pH 5.5 Ur Specific [place] >= 1.030 H Urine Protein >=300 H Urine Ketones Trace H Urine Blood Negative Urine Nitrite Negative Urine Bilirubin Small H Urine Urobilinogen 1.0 H Ur Leukocyte Esterase Negative Urine RBC 0-2 Urine WBC 0-2 Ur Epithelial Cells Rare Urine Crystals Negative Urine Bacteria Rare Urine Casts Negative Urine Mucus Heavy Ur Culture Indicated? No Urine Glucose Negative Last Vital Signs Temp 37.0 C 02/24/24 19:25 Pulse 86 02/24/24 19:25 Resp 16 02/24/24 19:25 BP 113/64 02/24/24 19:25 Pulse Ox 96 02/24/24 19:25 Time Spent Time spent with Patient: >75 minutes Time was spent: preparing to see the patient(eg.review tests), obtaining and/or reviewing separately otained hiistory, ordering medications,tests, procedures, indepentently interpreting results, counseling the patient and care coordination
[2024-02-25] VITALS: PULSE 76; RESP 18; O2SAT 95
[2024-02-25 00:06] LABS: TSH (W/Ref FT4) 1.41 uIU/mL (0.36-3.74)
[2024-02-25 00:10] VITALS: PULSE 79; RESP 15; TEMP 36.8; O2SAT 97
[2024-02-25] MEDS: Normal Saline 1,000 ML 125 ML IV ×3 (02:32→18:42)
[2024-02-25 07:00] LABS: Abs Immature Grans 0.03 10^3/uL (0.0-0.06); Absolute Basophil Count 0.08 10^3/uL (0.0-0.2); Absolute Eosinophil Count 0.26 10^3/uL (0.0-0.7); Absolute Lymphocyte Count 1.84 10^3/uL (1.2-3.4); Absolute Monocyte Count 0.76 10^3/uL (0.1-0.8); Absolute Neutrophil Count 5.39 10^3/uL (1.2-6.7); Eosinophils % 3.1 %; HCT 48.6 % (40.0-50.0); HGB 16.2 g/dL (13.5-17.5); Immature Grans % 0.4 %; MCH 32.1 pg (27.0-33.0); MCHC 33.3 % (32.0-36.0); MCV 96 fL (80-95); MPV 9.4 fL (8.0-11.0); Monocytes % 9.1 %; Neutrophils % 64.4 %; Platelet Count 252 10^3/uL (130-400); RBC 5.04 10^6/uL (4.36-5.78); RDW 14.2 % (11.8-14.1); RDW-SD 50.2 fL; WBC 8.36 10^3/uL (4.4-10.8)
[2024-02-25 07:21] LABS: ALT 19 U/L (16-63); AST 18 U/L (15-37); Albumin 3.1 g/dL (3.4-5.0); Alkaline Phosphatase 100 U/L (46-116); BUN 24 mg/dL (7-18); Bilirubin, Total 0.8 mg/dL (0.2-1.0); CREATININE 0.7 mg/dL (0.70-1.30); Chloride 109 mmol/L (98-107); Estimated GFR 95.49 (mL/min/1.73m2); Glucose 87 mg/dL (74-106); Magnesium 1.8 mg/dL (1.8-2.4); Potassium 3.4 mmol/L (3.5-5.1); Sodium 144 mmol/L (136-145); Total Protein 6.3 g/dL (6.4-8.2)
[2024-02-25 07:45] VITALS: BP 142/47; PULSE 67; RESP 18; TEMP 36.3; O2SAT 96
[2024-02-25] MEDS: Ezetimibe 10 MG TAB PO (08:08)
[2024-02-25] MEDS: Normal Saline Flush 10 ML SYR IVP (08:08)
[2024-02-25] MEDS: Metoprolol CR 100 MG TABCR 200 MG PO (08:09)
[2024-02-25] MEDS: Allopurinol 300 MG TAB PO (08:09)
[2024-02-25] MEDS: Isosorbide Mononitrate 10 MG TAB PO ×2 (08:09→15:21)
[2024-02-25] MEDS: Cholecalciferol (Vitamin D3) 1,000 UNIT TAB 5000 UNITS PO (08:10)
[2024-02-25] MEDS: Lisinopril 20 MG TAB PO (08:10)
[2024-02-25] MEDS: Nystatin POWDER 15 GM JAR TP ×3 (08:11→20:12)
[2024-02-25] MEDS: Betamethasone Dip. 0.05% CR 15 GM TUBE TP (08:11)
--- NOTE | 2024-02-25 10:10 | INITIAL_ITS ---
Date of service: 02/25/24 Time of Service: 10:10 Care Management Initial Assmt Initial Assessment Reason for Hospitalization: leg weakness Functional Status/Living Situation Patient Presentation: Jimbo was sitting up in bed when CM met with him. He was polite and agreeable to conversation.His Leah joined the conversation for a brief time but the visit was interrupted by Jimbo's need to go to the bathroom. When CM returned, Leah was gone. Per PT, Jimbo is a one person assist to transfer from bed to chair or commode. He informed CM that he has been able to do this independently at home until just the last few days. When asked if he knows why the change occurred, he stated that he thinks it is because he became dehydrated. Jimbo was admitted in observation status for weakness. His indicated she did not think he would be able to go home, however he does not have a payer source for rehab. CM explained this to Jimbo and he indicated understanding. PT has recommended SNF vs HH PT based on progress with ambulation. This afternoon he was able to ambulate short distances with minimal assist but with brief rests in between. Jimbo is receiving IV fluids and stated that he is starting to feel better. At home he has been receiving home health nursing for leg wraps for stasis dermatitis and this would be resumed if discharged home. 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) Instrumental Activities of Daily Living (ADLs): Requires support (requires some assistance with bathing and dressing which Leah provides.) Medications Medication Management: No Issues/Barriers identified Physical Functioning/Mobility Assistive Device: wheelchair bound, also walker Advance Directives Advance Directives: Do you have an Advance Directive: Y 02/25/24 00:50 AD On File at [facility]: Y 02/25/24 00:50 Date Asked AD Date Reviewed 02/25/24 02/25/24 00:50 COLST On File at [facility] Yes 02/24/24 19:55 COLST Date Scanned 03/21/23 02/24/24 19:55 Code Status Resuscitation Status DNR/DNI Insurance Coverage/Financial Issues Insurance: Medicare BC/BS ACO Member: No Care Team Visit Care Team Role Provider Type Ginette Villavicencio Primary Care Provider NON-[facility] STAFF PHYSICIAN InPatient Indio Derian Other Providers OTHER Emmanuel Gillette MD Emergency Provider [facility] STAFF PHYSICIAN Delroy Downs Admit Provider NON-[facility] STAFF PHYSICIAN Attending Provider Discharge Potential Discharge Needs: PCP F/U Appt Anticipated Barriers to Discharge: Bed availability Patient/Family Education Needs: Review discharge instructions, discuss Ask Me Three Transportation: Private vehicle Plan: Colette Sandoval will be discharged home with new home health services. He will follow up with his PCP and plan of care and transport with family. CM will follow and continue to support discharge needs. PFSH All Active Problems (Updated 02/24/24 @ 22:28 by Delroy Downs) Bilateral leg weakness (Acute) Weight loss due to medication (Acute) Chest pain (Acute) Physician orders for life-sustaining treatment (POLST) form indicates patient wish for [id number] status (Acute) Advance care planning (Acute) Palliative care patient (Acute) HFrEF (heart failure with reduced ejection fraction) (Chronic) Ambulatory dysfunction (Acute) Bilateral leg weakness (Acute) Lumbago (Chronic) Non compliance with medical treatment (Acute) Trochanteric bursitis, left hip (Acute) H/O surgical procedure (Chronic) a. Bilateral hip replacement b. Nephrolithotomy c. Right ureteral stent placement d. Coronary artery stent placement 2006 e. Adult circumcision f. Colonoscopy 11/2013 History of revision of total replacement of left hip joint (Acute 11/01/20) Acetabular revision with head/liner exchange for fractured femoral head prosthesis. Pure hypercholesterolemia, unspecified (Acute) Cerumen impaction (Acute) Body mass index (BMI) 50.0-59.9, adult (Chronic) Type 2 diabetes mellitus without complications (Chronic) Neoplasm of unspecified behavior of bone, soft tissue, and skin (Acute) Nasal dryness (Acute) Acute cholecystitis (Acute 09/07/14) Morbid obesity (Chronic) CAD (coronary artery disease) (Chronic) a. coronary artery stent placement 2006 Personal history of pulmonary embolism (Chronic) Hypertension (Chronic) TOM (obstructive sleep apnea) (Chronic) Personal history of kidney stones (Chronic) a. uric acid stones Venous stasis ulcer (Chronic) Venous (peripheral) insufficiency (Chronic) Medical History Venous stasis ulcer of left lower extremity HNP (herniated nucleus pulposus), lumbar Relative polycythemia Failed total hip arthroplasty Heart failure with preserved ejection fraction CAD (coronary artery disease) Cholangitis Nephrolithiasis Phimosis Pulmonary embolism Hx of pulmonary artery thrombosis Venous stasis ulcer of ankle limited to breakdown of skin without varicose veins Anticoagulant long-term use Atrial fibrillation Surgical History H/O bilateral hip replacements Social History Smoking/Tobacco Use Status: Former Tobacco Use Smoking risk assessment performed?: Yes Alcohol Intake: never Drug use: Never Substance use type: does not use Household members: spouse Housing: house What is your relationship status?: Panel score (0-1 are the most socially isolated patients): 1 Do you feel safe at home: Yes Do you feel safe in your relationship?: Yes SDOH(Care Management) Screening Will the Patient Participate in the Screening?: Yes Do you worry about having a steady place to live?: yes Problems where you live: no known problems In the past 12 months, have you had to go without electric, gas, oil or water in your home?: no Have you or anyone in your house had to go without enough food to eat?: no Has lack of transportation kept you from medical appointments or from doing things needed for daily living?: no Has anyone in your support network made you feel unsafe for any reason?: no Social Determinants of Health Comments(SDOH Details): Patient does not have air conditioning in their home Health Related Social Needs Health related social needs: housing instability, housed, with risk of homelessness(Z59.811)
--- NOTE | 2024-02-25 11:47 | PT.INIE ---
PT Notes Visit Reasons: Bilateral leg weakness, Mild dehydration Inpatient Physical Therapy Evaluation Date: 02/25/2024 Referring Doctor:America Omer NP PT Orders: PT CONSULT: Safety Consult for D/C Precautions: Fall. Standard. Activity as tolerated. Patient Profile/Admitting Diagnosis:?? Patient presented to the ED on 02/23/2023 due to B LE weakness. Patient is admitted for continued monitoring of ambulatory dysfunction, B LE weakness, DM type II, HTN, High BMI, CAD, venous insufficicency, and nephrolithiasis. PMHX: All Active Problems (Updated 02/24/24 @ 22:28 by Delroy Downs) Bilateral leg weakness (Acute) Weight loss due to medication (Acute) Chest pain (Acute) Physician orders for life-sustaining treatment (POLST) form indicates patient wish for [id number] status (Acute) Advance care planning (Acute) Palliative care patient (Acute) HFrEF (heart failure with reduced ejection fraction) (Chronic) Ambulatory dysfunction (Acute) Bilateral leg weakness (Acute) Lumbago (Chronic) Non compliance with medical treatment (Acute) Trochanteric bursitis, left hip (Acute) H/O surgical procedure (Chronic) a. Bilateral hip replacement b. Nephrolithotomy c. Right ureteral stent placement d. Coronary artery stent placement 2006 e. Adult circumcision f. Colonoscopy 11/2013History of revision of total replacement of left hip joint (Acute 11/01/20) Acetabular revision with head/liner exchange for fractured femoral head prosthesis.Pure hypercholesterolemia, unspecified (Acute) Cerumen impaction (Acute) Body mass index (BMI) 50.0-59.9, adult (Chronic) Type 2 diabetes mellitus without complications (Chronic) Neoplasm of unspecified behavior of bone, soft tissue, and skin (Acute) Nasal dryness (Acute) Acute cholecystitis (Acute 09/07/14) Morbid obesity (Chronic) CAD (coronary artery disease) (Chronic) a. coronary artery stent placement 2006Personal history of pulmonary embolism (Chronic) Hypertension (Chronic) TOM (obstructive sleep apnea) (Chronic) Personal history of kidney stones (Chronic) a. uric acid stonesVenous stasis ulcer (Chronic) Venous (peripheral) insufficiency (Chronic) Medical History Venous stasis ulcer of left lower extremity HNP (herniated nucleus pulposus), lumbar Relative polycythemia Failed total hip arthroplasty Heart failure with preserved ejection fraction CAD (coronary artery disease) Cholangitis Nephrolithiasis Phimosis Pulmonary embolism Hx of pulmonary artery thrombosis Venous stasis ulcer of ankle limited to breakdown of skin without varicose veins Anticoagulant long-term use Atrial fibrillation Surgical History H/O bilateral hip replacements Social History/Home Situation: Patient lives in a private home with his Leah, who is present at time of consult. He has 3 RAJESH home with bilat rails. has been a very good support. Equipment Owned/DME: Hospital bed, FWW, elevated toilet seat, wheelchair Subjective:? and patient do not feel safe going home today. adds that even though he could move better, he is still not at baseline mobility and can fall at home. She said that she is not capable to physically help . Patient reported 1/10 pain in low back at rest and up to 4-5/10 with movement. Got dizzy when he sat up at edge of bed. Objective:? General Observation: Sitting on chair. Iv through L UE Mental Status: Alert and oriented x 4 ROM: Right Upper Extremity: Shoulder Flexion allows up to 100 degrees. Shoulder abduction allows up to 90 degrees. Elbow flexion WFL. Wrist flexion WFL. Functional opening and closing of hand WFL. Left Upper Extremity: Shoulder Flexion allows up to 100 degrees. Shoulder abduction allows up to 90 degrees. Elbow flexion WFL. Wrist flexion WFL. Functional opening and closing of hand WFL. Right Lower Extremity: Hip flexion allows up to 90 degrees. Hip abduction WFL. Knee flexion WFL. Ankle dorsiflexion WFL. Ankle plantarflexion WFL. Left Lower Extremity: Hip flexion allows up to 100 degrees. Hip abduction WFL. Knee flexion WFL. Ankle dorsiflexion WFL. Ankle plantarflexion WFL. Strength: Right Upper Extremity: Shoulder flexors 3-/5. Shoulder abductors 3-/5. Elbow flexors 5/5. Elbow extensors 5/5. Agriculture Sales Account Manager strong. Left Upper Extremity: Shoulder flexors 3-/5. Shoulder abductors 3-/5. Elbow flexors 5/5. Elbow extensors 5/5. Agriculture Sales Account Manager strong. Right Lower Extremity: Hip flexors 3-/5. Hip abductors 4-/5. Knee flexors 3/5. Knee extensors 3/5. Ankle dorsiflexors 3+/5. Ankle plantarflexors 3+/5. Left Lower Extremity:Hip flexors 3-/5. Hip abductors 4/5. Knee flexors 4/5. Knee extensors 4/5. Ankle dorsiflexors 4/5. Ankle plantarflexors 4/5. Bed Mobility/Transfers: Minimal cueing provided for use of B hands as needed for support, movement sequence, AD management, and posture to reduce fall risk and minimize pain report Supine to sit moderate assist with HOB at 45 degrees Sit to stand minimal assist of 2 Sit to stand from wheelchair moderate assist of 2 Stand to sit minimal assist of 2 Bed to wheelchair minimal assist of 2 Wheelchair to bedside recliner minimal assist of 2 Gait:? 5 feet + 5 feet using bariatric front-wheeled walker with report of fatigue, weakness, and mild shortness of breath. Steps cautious and mildly shaky. Minimal assist of 2 provided. Moderate verbal cueing provided for movement sequence, directional change, and AD management. Balance:? Static Sitting: Good Dynamic Sitting: Good Static Standing: fair Dynamic Standing: fair Special Tests: Mobility Limitations Standardized Measure [facility]-PAC 6 clicks Basic Mobility Inpatient Short Form: Raw Score: 12 ? CMS Score: 69% ? ? ? Informed Consent/Education:? Informed Consent/Education: Patient was instructed in purpose of PT consult and plan of care. Agreeable to proceed with established PT POC to achieve personal goals. Assessment:?? Patient presents with functional mobility decline, fearfulness of falling, decreased activity tolerance, high BMI, chroninc LBP, and co-morbid conditions as above limiting his ability to safely perform transfers and ambulation. Provided physical assistance and cues for safe and efficient movement from bed to wheelchair and then finally to bedside recliner. Both patient and patient's are not convinced that going home today will help them both. Patient is anxious that he could not do transfers at home and is afraid to fall. Hopefully can regain mobility level with resolution of dehydration symptoms while on admission here. Will work on gradual strengthening to improve functional performance during trsnafers and short-distance ambulation. Has all needed equipment at home. He requires skilled PT intervention to maximize safety and mobility to allow for safe return home, although may require brief rehab stay prior to doing so. Will see how he progresses and continue monitoring for discharge planning. He currently demonstrates the following impairment level findings: 1. Decreased LE strength 2. Gait impairments 3. Ferafulness of falling 4. Chroninc LBP Impairments are contributing to the following functional limitations: 1. unable to ambulate household distances 2. unable to manage stairs into house 3. Deficit score of 47% on the [place] AMPA testing 4. Increased fall risk Patient is assessed as? Moderate 73924? complexity based on the following: History: Patient presented to the ED on 02/23/2023 due to B LE weakness. Patient is admitted for continued monitoring of ambulatory dysfunction, B LE weakness, DM type II, HTN, High BMI, CAD, venous insufficicency, and nephrolithiasis. Examination: Impairments and functional limitations as above Presentation: Evolving Decision Makin Moderate Complexity Goals: Goals X1 week 1. Supine-Sit : supervision 2. Sit-Supine? : supervision 3. Sit-Stand? : supervision 4. Stand-Sit? : supervision 5. Bed-Chair? : supervision with FWW 6. Chair-Bed? : supervision with FWW 7. Gait? : supervision with FWW x 15' 8. Stairs : ascend and descend x 3 with bilat rails Plan of Care/Treatment Plan: 1-2x/day, 7 days/week x 1 week. Plan of care has been reviewed with the STEAM LOCOMOTIVE FIRER/FIREMAN providing the service under Physical Therapy direction. Initiate Physical Therapy intervention for strengthening, bed mobility, transfers, gait, stairs, balance training, use of assistive device. DISCHARGE RECOMMENDATIONS: [] Home with no services [] [] Home with services [specify] [] Home with outpatient PT [] [] SNF for continued rehabilitation [] [] Nursing Home Care [] [] SNF versus LTC based on ability to participate and progress [] [X] Short-term rehab vs HH PT based on patient's progress towards goals TREATMENT CODE/TIME:? 82900 x 20 minutes, 9753 0 x 23 minutes beginning at 10:47 AM. Thank you for the opportunity to participate in the care of this patient. Estrellita Alcazar PT, DPT, CLT [facility] [place], [place]
[2024-02-25 13:09] VITALS: BP 117/75; PULSE 76; RESP 18; TEMP 36.9; O2SAT 97
[2024-02-25] MEDS: POTASSIUM CHLORIDE 20 MEQ/100 ML BAG 50 MEQ IVINF (14:27)
[2024-02-25] MEDS: Acetaminophen 325 MG TAB PO ×2 (14:32→20:12)
[2024-02-25 15:06] VITALS: BP 142/86; PULSE 68; RESP 18; TEMP 36.8; O2SAT 96
--- NOTE | 2024-02-25 15:57 | CHAPLAIN ---
Jimbo was resting in bed when I visited. He Jainism. We talked about the recent of his friend Mildred Bowman who [facility] in D[facility], and Jimbo said he's know three other people in the past two years who have with medical assistance. He talked about Mildred's life and . We also talked about books he's read recently. Jimbo plays the banjo, however he said his bluegrass banjo is now too heavy for him to lift. He's lost 150 pounds in the past year and a half he said, but he also lost muscle along with fat, he explained. He's having trouble transferring from the bed to a wheelchair and then from the wheelchair to the recliner. He doesn't believe he'll have a three-night stay which could possibly make him eligible rehab facility. Jimbo said he knows it would be a challenge to go home. He lives with his . I reminded Jimbo that we could make sure he's not interrupted if he needs time to meditate. He told me that he had a very good conversation with Fr. Ford, the uniform designer pile header at [facility], when Jimbo was at I will continue to visit.
--- NOTE | 2024-02-25 16:13 | PGE_ITS ---
Date of Service Date of service: 02/25/24 Time of Service: 13:00 Assessment and Plan Assessment and plan (1) Bilateral leg weakness: Start date: 02/24/24 Status: Acute Assessment and plan: L1-2 stenosis in previous imaging No numbness and no saddle anesthesia PT consult (2) TOM (obstructive sleep apnea): Status: Chronic Assessment and plan: Continue outpatient therapy F/u on polycythemia IV hydration may help this. Home CPAP (3) Type 2 diabetes mellitus without complications: Status: Chronic Assessment and plan: Gluc AC and HS with SSI BMP in AM Qualifiers: Diabetes mellitus assisted insulin use: without assisted use Qualified Code(s): E11.9 - Type 2 diabetes mellitus without complications (4) Hypertension: Status: Chronic Assessment and plan: Continue outpatient medication while hospitalized. Qualifiers: Hypertension type: primary hypertension Qualified Code(s): I10 - Essential (primary) hypertension (5) Body mass index (BMI) 50.0-59.9, adult: Status: Chronic Assessment and plan: Morbidly obese on GLP-1 agonist. diabetic diet OPT follow-up with PCP. (6) CAD (coronary artery disease): Status: Chronic Assessment and plan: On home regimen Qualifiers: Associated angina: without angina Coronary Disease-Associated Arter y/Lesion type: [place] artery [place] vs. transplanted heart: [place] heart Qualified Code(s): I25.10 - Atherosclerotic heart disease of [place] coronary artery without angina pectoris (7) Personal history of pulmonary embolism: Status: Chronic Assessment and plan: Continue home Xarelto (8) Venous (peripheral) insufficiency: Status: Chronic Assessment and plan: No open sores to lower extremities. There are no signs of infection. antiembolic socks on from home (9) Nephrolithiasis: Assessment and plan: Continue medical therapy with low-dose Lasix, potassium citrate and allopurinol. Discussed with Dr. Magaña Subjective Subjective Patient reports: feels better, tolerating liquids well, tolerating a regular diet, voiding w/o difficulty and flatus; denies diarrhea, nausea, vomiting, shortness of breath or fever Exam Narrative Exam Narrative: Constitutional The patient is sitting in chair/ lying in bed comfortable and cooperative during the interview. The patient is well groomed without acute distress and has average body habitus/is obese/ is thin. HENMT: Head is atraumatic, normocephalic, no lymphadenopathy. Facial structures with normal appearance Eyes: Well aligned, intact ROM Neck: Normal ROM, no meningeal signs Neuro:alert and oriented to self, person, place time and situation. No neurological focal deficit. -No numbness to sacral area, no saddle anesthesia Resp: Coarse breath sounds clearing w cough and deep breathing Cardio: regular rhythm, S1, S2, positive radial and pedal pulses GI: Abdomen is large not distended, soft and non tender, bowel sounds are present Back/spine/Pelvis: No back tenderness, normal alignment Extremities: strength 3/5 to bilateral lower extremities Psych: RASS 0, congruent mood and normal affect. Objective Last Vital Signs Temp 36.8 C 02/25/24 15:06 Pulse 68 02/25/24 15:06 Resp 18 02/25/24 15:06 BP 142/86 H 02/25/24 15:06 Pulse Ox 96 02/25/24 15:06 Laboratory Results - last 24 hr 02/24/24 02/24/24 02/25/24 19:40 20:10 06:23 WBC 10.01 8.36 RBC 5.42 5.04 Hgb 17.6 H 16.2 Hct 53.0 H 48.6 MCV 98 H 96 H MCH 32.5 32.1 MCHC 33.2 33.3 RDW 14.1 14.2 H Plt Count 292 252 MPV 9.1 9.4 Immature Gran % 0.5 0.4 Neutrophils % 83.4 64.4 Lymphocytes % 7.9 22.0 Monocytes % 6.8 9.1 Eosinophils % 0.6 3.1 Basophils % 0.8 1.0 Nucleated RBC % 0.0 0.0 Absolute Neutrophils 8.35 H 5.39 Absolute Lymphocytes 0.79 L 1.84 Absolute Monocytes 0.68 0.76 Absolute Eosinophils 0.06 0.26 Absolute Basophils 0.08 0.08 Sodium 143 144 Potassium 3.9 3.4 L Chloride 108 H 109 H Carbon Dioxide 24.6 26.0 Anion Gap 10.4 9.0 BUN 30 H 24 H Creatinine 1.1 0.7 Est GFR (CKD-EPI 2020) 69.57 95.49 Glucose 130 H 87 Calcium 9.7 9.0 Magnesium 1.8 Total Bilirubin 0.6 0.8 AST 15 18 ALT 23 19 Alkaline Phosphatase 124 H 100 Creatine Kinase 30 L Troponin I < 50 Total Protein 7.2 6.3 L Albumin 3.7 3.1 L TSH 1.41 Urine Color Yellow Urine Clarity Clear Urine pH 5.5 Ur Specific [place] >= 1.030 H Urine Protein >=300 H Urine Ketones Trace H Urine Blood Negative Urine Nitrite Negative Urine Bilirubin Small H Urine Urobilinogen 1.0 H Ur Leukocyte Esterase Negative Urine RBC 0-2 Urine WBC 0-2 Ur Epithelial Cells Rare Urine Crystals Negative Urine Bacteria Rare Urine Casts Negative Urine Mucus Heavy Ur Culture Indicated? No Urine Glucose Negative Time Spent with Patient Time Spent with Patient: >50 minutes Time was spent: preparing to see the patient(eg.review tests), obtaining and/or reviewing separately otained hiistory, ordering medications,tests, procedures, referring, communicating with other health assistant child care teacher, indepentently interpreting results, counseling the patient and care coordination
--- NOTE | 2024-02-25 16:16 | PHA.REVIEW2 ---
Pharmacy Admission Review Admission Clinical Review Admission Pharmacy Review: (Updated 02/24/24 @ 22:28 by Delroy Downs) Bilateral leg weakness (Acute) metformin Adverse Reaction (Verified 02/24/24 19:41) DIARRHEA Resuscitation Status DNR/DNI Height 5 ft 10 in Weight 152.3 kg Pharmacy Admission Review Renal Dosing Renal Dosing: BUN 24 mg/dL (7-18) H 02/25/24 06:23 Creatinine 0.7 mg/dL (0.70-1.30) 02/25/24 06:23 Medications needing adjustments: Reviewed (CrCl 93.08 mL/min) Anticoagulation Anticoagulation: Hgb 16.2 g/dL (13.5-17.5) 02/25/24 06:23 Hct 48.6 % (40.0-50.0) 02/25/24 06:23 Plt Count 252 10^3/uL (130-400) 02/25/24 06:23 Creatinine 0.7 mg/dL (0.70-1.30) 02/25/24 06:23 DVT Prophylaxis: Reviewed Medications: Rivaroxaban (20mg PO daily) Relevant Labs Relevant Labs: Sodium 144 mmol/L (136-145) 02/25/24 06:23 Potassium 3.4 mmol/L (3.5-5.1) L 02/25/24 06:23 Chloride 109 mmol/L (98-107) H 02/25/24 06:23 Magnesium 1.8 mg/dL (1.8-2.4) 02/25/24 06:23 Electrolytes, C-Reactive P, ESR: Reviewed (K 3.4, Hgb decreased from 17.6 to 16.2) DM Control DM Control: Glucose 87 mg/dL (74-106) 02/25/24 06:23 DM Control: Reviewed Insulin Dosing, Diabetic Medication: No orders for T2DM, uses tirzepatide at home (dosed weekly) Cardiac Review Cardiac Review: Troponin I < 50 ng/L (< or =60) 02/24/24 19:40 BP, HR, EF%: Reviewed (BP 142/86, HR WNL) QTc Review QTc: Reviewed (407 from 11/04/21 - most recent EKG on file) IV to PO Switch IV Medications: Reviewed Home Meds Home Med List reviewed: Reviewed Relevent Home Meds Not ordered & why?: Benadryl (PRN), furosemide (no fill history), tirzepatide (weekly) Current Meds Current Medication Order Review: Reviewed
--- NOTE | 2024-02-25 16:30 | PTTR_ITS ---
PT Notes Visit Reasons: Bilateral leg weakness, Mild dehydration Physical Therapy Inpatient Treatment Note Date: 02/25/2024 Precautions: Fall. Standard. Activity as tolerated. Subjective:? Reported significant dizziness sitting up at edge of bed compared to this morning. Nurse Elizabeth luevano. Patient's symptoms subsided after waiting a few minutes in sitting. Objective:? General Observation: Resting in bed. IV through L UE Mental Status: Alert and oriented x 4 Bed Mobility/Transfers: Minimal cueing provided for use of B hands as needed for support, movement sequence, AD management, and posture to reduce fall risk and minimize pain report Supine to sit conatct guard assist with HOB at 30 degrees Sit to stand from edge of high bed minimal assist using bariatric walker Sit to stand from bedside commode minimal assist using bariatric walker Stand to sit minimal assist using bariatric walker Bed tobedside commode minimal assist using bariatric walker bedside commode to bedside recliner minimal assist using bariatric walker Gait:? 5 feet + 5 feet + 3 small steps using bariatric front-wheeled walker with report of fatigue, weakness, and mild shortness of breath. Steps cautious and mildly shaky. Minimal assist provided. Needed to sit long term from bedside commode to bedside recliner due to fatigue. Moderate verbal cueing provided for safe and correct movement sequence, directional change, and AD management. Balance:? Static Sitting: Good Dynamic Sitting: Good Static Standing: fair Dynamic Standing: fair Assessment:?? Patient presents with functional mobility decline, fearfulness of falling, decreased activity tolerance, high BMI, chroninc LBP, and co-morbid conditions as above limiting his ability to safely perform transfers and ambulation. For this session, patient was provided with needed assistance and cueing for safe and efficient movement from bed to bedside commode and then finally to bedside recliner. Slowly gaining confidence back with moving about. Still feels weak. Will work on gradual strengthening to improve functional performance during transfers and short-distance ambulation. Has all needed equipment at home. Goals: Goals X1 week 1. Supine-Sit : supervision 2. Sit-Supine? : supervision 3. Sit-Stand? : supervision 4. Stand-Sit? : supervision 5. Bed-Chair? : supervision with FWW 6. Chair-Bed? : supervision with FWW 7. Gait? : supervision with FWW x 15' 8. Stairs : ascend and descend x 3 with bilat rails Plan of Care/Treatment Plan: 1-2x/day, 7 days/week x 1 week. Work on increasing sit<>stand from different bed/stransfer surface height. Improve gait pattern, stability and activity tolerance. Plan of care has been reviewed with the LINTING MACHINE OPERATOR providing the service under Physical Therapy direction. Initiate Physical Therapy intervention for strengthening, bed mobility, transfers, gait, stairs, balance training, use of assistive device. DISCHARGE RECOMMENDATIONS: [] Home with no services [] [] Home with services [specify] [] Home with outpatient PT [] [] SNF for continued rehabilitation [] [] Skilled Nursing Care [] [] SNF versus LTC based on ability to participate and progress [] [X] Short-term rehab vs HH PT based on patient's progress towards goals TREATMENT CODE/TIME:? 89814 x 39 minutes for 3 units (16:40-17:09).
[2024-02-25] MEDS: Rivaroxaban 10 MG TABLET 20 MG PO (17:17)
[2024-02-25 20:10] VITALS: BP 133/72; PULSE 70; RESP 20; TEMP 36.8; O2SAT 97
[2024-02-25] MEDS: Potassium Citrate 1080 MG TABCR 2160 MG PO (20:11)
[2024-02-25] MEDS: Potassium Chloride 20 MEQ TABCR PO (20:12)
[2024-02-26] VITALS (7 sets, daily range): BP systolic 117–157; BP diastolic 69–92; PULSE 64–80; RESP 18–22; TEMP 36.3–37.1; O2SAT 95–99
[2024-02-26] MEDS: Normal Saline 1,000 ML 125 ML IV (02:44)
[2024-02-26] MEDS: Potassium Citrate 1080 MG TABCR 2160 MG PO ×2 (09:39→20:04)
[2024-02-26] MEDS: Isosorbide Mononitrate 10 MG TAB PO (09:39)
[2024-02-26] MEDS: Ezetimibe 10 MG TAB PO (09:39)
[2024-02-26] MEDS: Allopurinol 300 MG TAB PO (09:39)
[2024-02-26] MEDS: Lisinopril 20 MG TAB PO (09:40)
[2024-02-26] MEDS: Cholecalciferol (Vitamin D3) 1,000 UNIT TAB 5000 UNITS PO (09:40)
[2024-02-26] MEDS: Potassium Chloride 20 MEQ TABCR PO ×2 (09:40→20:04)
[2024-02-26] MEDS: Normal Saline Flush 10 ML SYR IVP ×2 (09:40→20:03)
[2024-02-26] MEDS: Betamethasone Dip. 0.05% CR 15 GM TUBE TP (09:40)
[2024-02-26] MEDS: Metoprolol CR 100 MG TABCR 200 MG PO (09:40)
[2024-02-26] MEDS: Nystatin POWDER 15 GM JAR TP ×2 (09:41→20:02)
--- NOTE | 2024-02-26 10:15 | PGE_ITS ---
Date of Service Date of service: 02/26/24 Time of Service: 10:15 Assessment and Plan Assessment and plan (1) Bilateral leg weakness: Start date: 02/24/24 Status: Acute Assessment and plan: Improving and able to transfer, remains somewhat weak Continue PT L1-2 stenosis in previous imaging No numbness and no saddle anesthesia on initial exam.No need for MRI Progressive decline over years but weakness was sudden -Reporting avoiding drinking days d/t appointment and did not want to have to use the commodities -IVF stopped Cr 0.7 -Nutrition consult for low protein levels as the patient reported decreased food intake, weight loss on Munjaro; would benefit from education re: micronutrient (protein)- dense food . (2) TOM (obstructive sleep apnea): Status: Chronic Assessment and plan: Continue outpatient therapy F/u on polycythemia Hct trending down w IVF IV hydration completed. Home CPAP on home settings (3) Type 2 diabetes mellitus without complications: Status: Chronic Assessment and plan: Glucose 100 this AM Gluc AC and HS with SSI but the patient is refusing and stated that his taking Munjaro for weight loss Patient is refusing this Dx and interventions A1C max at 7.4 on 10/30/2020, 7.0 in 2021,6.2, 6.0 and 5.8 in 2022, 5.5 in 2023. Pointing to a Dx of DM II but now control most likely d/t lifestyle changes. Patient most likely need to be educated on this. 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 Qualifiers: Hypertension type: primary hypertension Qualified Code(s): I10 - Essential (primary) hypertension (5) HFrEF (heart failure with reduced ejection fraction): Status: Chronic Assessment and plan: As above (6) Body mass index (BMI) 50.0-59.9, adult: Status: Chronic Assessment and plan: Morbidly obese on GLP-1 agonist once diabetic diet OPT follow-up with PCP. (7) CAD (coronary artery disease): Status: Chronic Assessment and plan: On home regimen Qualifiers: Associated angina: without angina Coronary Disease-Associated Artery/Lesion type: [place] artery Hoh vs. transplanted heart: [place] heart Qualified Code(s): I25.10 - Atherosclerotic heart disease of [place] coronary artery without angina pectoris (8) Personal history of pulmonary embolism: Status: Chronic Assessment and plan: Continue home Xarelto (9) Venous (peripheral) insufficiency: Status: Chronic Assessment and plan: No open sores to lower extremities. There are no signs of infection. antiembolic socks on from home (10) Nephrolithiasis: Assessment and plan: Continue medical therapy with low-dose Lasix, potassium citrate and a llopurinol. Discussed with Dr. Magaña Subjective Subjective Patient reports: no new complaints (Stated that he did great progress but would feel safer w one more night to work on weakness), feels better, tolerating liquids well, tolerating a regular diet, voiding w/o difficulty, bowel movement, afebrile and other (Was able to stand up and reach for the walker but as per RN Jaswinder Parra, was still shaky but refused assist); denies diarrhea, nausea, vomiting or shortness of breath Exam Narrative Exam Narrative: Constitutional The patient is sitting in chair/ lying in bed comfortable and cooperative during the interview. The patient is well groomed without acute distress and has average body habitus/is obese/ is thin. HENMT: Head is atraumatic, normocephalic, no lymphadenopathy. Facial structures with normal appearance Eyes: Well aligned, intact ROM Neck: Normal ROM, no meningeal signs Neuro:alert and oriented X 4, no focal deficits Resp: CTA Cardio: regular rhythm, S1, S2, positive radial and pedal pulses GI: Abdomen is large not distended, soft and non tender, bowel sounds are present Back/spine/Pelvis: No back tenderness, normal alignment Extremities: strength 4/5 to bilateral lower extremities Psych: RASS 0, congruent mood and normal affect. Objective Last Vital Signs Temp 36.7 C 02/26/24 08:06 Pulse 64 02/26/24 08:06 Resp 18 02/26/24 08:06 BP 143/81 H 02/26/24 08:06 Pulse Ox 99 02/26/24 08:06 Time Spent with Patient Time Spent with Patient: >50 minutes Time was spent: preparing to see the patient(eg.review tests), obtaining and/or reviewing separately otained hiistory, ordering medications,tests, procedures, referring, communicating with other health before and after school daycare worker, indepentently interpreting results, counseling the patient and care coordination
[2024-02-26 11:08] LABS: Abs Immature Grans 0.02 10^3/uL (0.0-0.06); Absolute Basophil Count 0.06 10^3/uL (0.0-0.2); Absolute Eosinophil Count 0.16 10^3/uL (0.0-0.7); Absolute Monocyte Count 0.53 10^3/uL (0.1-0.8); Absolute Neutrophil Count 6.29 10^3/uL (1.2-6.7); Basophils % 0.7 %; Eosinophils % 1.9 %; HCT 52.6 % (40.0-50.0); HGB 17.1 g/dL (13.5-17.5); Immature Grans % 0.2 %; Lymphocytes % 16.5 %; MCHC 32.5 % (32.0-36.0); MCV 99 fL (80-95); MPV 9.1 fL (8.0-11.0); Monocytes % 6.3 %; Neutrophils % 74.4 %; Platelet Count 230 10^3/uL (130-400); RBC 5.34 10^6/uL (4.36-5.78); RDW 14.1 % (11.8-14.1); RDW-SD 51.9 fL; WBC 8.46 10^3/uL (4.4-10.8)
--- NOTE | 2024-02-26 11:12 | PT.INTREAT ---
Date of service: 02/26/24 Time of Service: 10:00 PT Notes Visit Reasons: Bilateral leg weakness, Mild dehydration Inpatient Physical Therapy Treatment Note [facility] Date: 02/26/2024 PRECAUTIONS: Precautions: Fall. Standard. Activity as tolerated. SUBJECTIVE: Stated he and his are still a little nervous about him going home. Would like HH PT when he goes to help work on mobility and strength for safety with ADLs. is worried she will not be able to help him get up if needed. Had just got back to bed about a half hour ago, had gone to bedside commode and sat up in recliner already. But, willing to get up again. OBJECTIVE: ? Therapeutic Activities (19293d5): Direct one-on-one instruction in dynamic activities to improve functional performance. ? BED MOBILITY/TRANSFERS? Rolling L/R: Rolled independently to the left to get out of bed, with HOOB at approximately 40 degrees. Has a hospital bed at home. Supine-sit: SBA? Sit-supine: Did not do, but indicated he uses a leg lift device to help with this at home. ? Sit-stand:?CGA ? Stand-sit: SBA ? Provided skilled cues and instruction on performance and technique throughout. GAIT? Assistive Device: FWW? Weight bearing: full Assist: CGA ? Distance:?5ft bed to chair? Deviation: Slow nito with short steps.?Places significant weight on walker. Did strongly encourage to use good safety strategies with going sit to stand and stand to sit.? STAIRS: Has a ramp at home for entrance into house.?Did not try. ? Therapeutic Exercises (57363f7): Direct one-on-one instruction in therapeutic exercises to develop strength, endurance, range of motion and flexibility. ? Exercises: HR/ TR x 40 reps each, LAQs x 40 reps each, seated march x 30 reps, seated hip abd with blue t-band x 80 reps, shoulder horizontal abduction with blue x 20 reps and bicep curls with blue band with left UE x 20 reps. Performed sit to stand exercise x 3 reps with CGA of one. Does tend to lean forward a lot causing him to appear unsteady. ? Provided skilled instruction in proper exercise performance Provided skilled manual cues to facilitate proper muscle recruitment and/or form ASSESSMENT:? Did well with his exercises today. Indicates he does not walk much at home, mainly just w/c to toilet/ bed, for short 3 step distance. PLAN: Continue to work on independence with transfers with FWW for discharge to home. TREATMENT CODE/TIME: 19855 x 1 and 57700 x 1, 10:00 to 10:35 (35')
[2024-02-26 11:22] LABS: Anion Gap 9.2 mmol/L (3-11); BUN 17 mg/dL (7-18); CO2 22.8 mmol/L (21.0-32.0); CREATININE 0.7 mg/dL (0.70-1.30); Calcium 9.2 mg/dL (8.5-10.1); Chloride 110 mmol/L (98-107); Estimated GFR 95.49 (mL/min/1.73m2); Glucose 109 mg/dL (74-106); Magnesium 1.8 mg/dL (1.8-2.4); Potassium 4.1 mmol/L (3.5-5.1); Sodium 142 mmol/L (136-145)
--- NOTE | 2024-02-26 13:42 | PT.INTREAT ---
PT Notes Visit Reasons: Bilateral leg weakness, Mild dehydration Inpatient Physical Therapy Treatment Note [facility] Date: 02/26/2024 PRECAUTIONS: Precautions: Fall. Standard. Activity as tolerated. SUBJECTIVE: Jimbo states that he is very tired, but willing to get up to the commode. OBJECTIVE: ? Therapeutic Activities (99829q8): Direct one-on-one instruction in dynamic activities to improve functional performance. ? BED MOBILITY/TRANSFERS? Rolling L/R: Rolled independently to the left to get out of bed, with HOOB at approximately 40 degrees. Has a hospital bed at home. Supine-sit: SBA? Sit-supine: min A to LEs (utilizes leg lifters at home) ? Sit-stand:?SBA from commode; CGA from bed, with need for elevated bed and rocking? Stand-sit: SBA, cues for safety and controlled descent ? Provided skilled cues and instruction on performance and technique throughout. GAIT? Assistive Device: FWW? Weight bearing: full Assist: CGA ? Distance:?side stepping x 3 feet, heavy reliance on FWW. Ambulates 3'x2 with FWW. ? Deviation: Slow nito with short steps.?Places significant weight on walker. Did strongly encourage to use good safety strategies with going sit to stand and stand to sit.? STAIRS: Has a ramp at home for entrance into house with w/c. ? Therapeutic Exercises (45681j6): Direct one-on-one instruction in therapeutic exercises to develop strength, endurance, range of motion and flexibility ? Provided skilled instruction in proper exercise performance Provided skilled manual cues to facilitate proper muscle recruitment and/or form sit-stand x 4 SAQ 10x each SLR with 25% assist 10x each LAQ 10x each ASSESSMENT:? Did well with his exercises today. Improving independence with transfers. PLAN: Continue to work on independence with transfers with FWW for discharge to home. TREATMENT CODE/TIME: 95403 x 1 and 11994 x 1, 1310 to 1340 (30') Nika Samayoa, PT, DPT [facility]
[2024-02-26] MEDS: Rivaroxaban 10 MG TABLET 20 MG PO (18:15)
[2024-02-27 03:10] VITALS: BP 147/91; PULSE 82; RESP 18; TEMP 36.7; O2SAT 97
[2024-02-27 07:48] VITALS: BP 145/91; PULSE 64; RESP 18; TEMP 36.5; O2SAT 97
[2024-02-27] MEDS: Potassium Citrate 1080 MG TABCR 2160 MG PO (08:32)
[2024-02-27] MEDS: Cholecalciferol (Vitamin D3) 1,000 UNIT TAB 5000 UNITS PO (08:32)
[2024-02-27] MEDS: Potassium Chloride 20 MEQ TABCR PO (08:33)
[2024-02-27] MEDS: Isosorbide Mononitrate 10 MG TAB PO (08:33)
[2024-02-27] MEDS: Ezetimibe 10 MG TAB PO (08:33)
[2024-02-27] MEDS: Lisinopril 20 MG TAB PO (08:33)
[2024-02-27] MEDS: Allopurinol 300 MG TAB PO (08:33)
[2024-02-27] MEDS: Metoprolol CR 100 MG TABCR 200 MG PO (08:33)
[2024-02-27] MEDS: Betamethasone Dip. 0.05% CR 15 GM TUBE TP (08:34)
[2024-02-27] MEDS: Normal Saline Flush 10 ML SYR IVP (08:34)
[2024-02-27] MEDS: Nystatin POWDER 15 GM JAR TP (08:35)
--- NOTE | 2024-02-27 11:01 | DSE_ITS ---
Date of service: 02/27/24 Time of Service: 11:01 DS: Diagnosis Discharge Diagnosis (1) Bilateral leg weakness: Status: Acute (2) TOM (obstructive sleep apnea): Status: Chronic (3) Type 2 diabetes mellitus without complications: Status: Chronic (4) Hypertension: Status: Chronic (5) HFrEF (heart failure with reduced ejection fraction): Status: Chronic (6) Body mass index (BMI) 50.0-59.9, adult: Status: Chronic (7) CAD (coronary artery disease): Status: Chronic (8) Personal history of pulmonary embolism: Status: Chronic (9) Venous (peripheral) insufficiency: Status: Chronic (10) Nephrolithiasis: Discharge Plan Disposition Patient Disposition: Half-Way Facility(SNF) Condition: Improving Condition: Improving Discharge Details Reason For Visit: Bilateral leg weakness, Mild dehydration Admit Date/Time: 02/24/24 22:29 Admit Provider: Delroy Downs Attending Provider: Delroy Downs Primary Care Provider: Ginette Villavicencio Hospital Course Hospital Course: This 78-year-old male patient with progressive and chronic problems with ambulation using a walker to transfer to wheelchair with a past medical history of venous stasis ulcer of the left lower extremity, diabetes type 2, herniated lumbar nucleus pulposis, failed hip arthroplasty, HFpEF, coronary artery disease, pulmonary embolism, atrial fibrillation presented to the ED at [facility] on 02/24/2024 with complaints of sudden and increased leg weakness. The patient lives with his and is usually able to perform transfer with a walker to the bedside commode or wheelchair. The patient was unable to complete the transfer and EMS was called. In the ED the patient denied recent falls, head strike, shortness of breath, chest pain, and dizziness. The patient sees home health and they usually wrap his legs; no current leg sores at this time. The patient was noticed to have generalized weakness without focal weakness. The patient mentioned that he started to feel weak after eating and waking up from a nap. Lab work in the ED was remarkable for an H&H of 17.6 and 53.0, BUN of 30 with a creatinine of 1.1 with baseline around 0.8. The patient was admitted to the medical surgical floor by the hospitalist for bilateral leg weakness and mild dehydration. The patient received IV fluid with his creatinine going down to 0.7 and his BUN going down to 17. The patient also receive potassium s upplementation for potassium of 3.4 resulting in normal level. H&H went as low down to 16.2 and 48.6. Patient reported that a couple of days prior stool an appointment for an injection for pain management he had stop drinking to avoid using the restroom during the appointment. Education given to the patient to keep hydrated. The patient will have to reschedule his appointment for pain management. Physical therapy consult was ordered and the patient improved and was able to somewhat complete transfers but remained shaky on his legs. Physical therapy recommendation is for short-term rehab. The patient continued to receive his home med regimen for the management of his chronic conditions. The patient will be discharged to SNF today. It is recommended to contact [facility] to determine the regimen for the lower extremities that they have been providing for the patient as it should continue once discharged. Discussed with Dr. Magaña Home Meds and New Rx's Prescriptions: New melatonin 3 mg capsule 3 mg PO HS PRNQty: 30 0RF Rx Instructions: PRN sleep Continued tirzepatide 2.5 mg/0.5 mL pen injector 2.5 mg subcut QWEEK isosorbide mononitrate 10 mg tablet 10 mg PO BID Rx Instructions: give doses 7 hrs apart metoprolol succinate 100 MG tablet extended release 24 hr 200 mg PO DAILY nitroglycerin 0.4 MG tablet, sublingual 0.4 mg Sublingual PRN PRN (Reason: Chest Pain) lisinopril 40 MG tablet 20 mg PO DAILY furosemide 40 mg tablet 10 mg PO QAM potassium citrate 10 MEQ tablet extended release 20 meq PO BID allopurinol 300 MG tablet 300 mg PO DAILY Acetaminophen [Tylenol] 650 mg PO Q4H PRN PRNQty: 0 0RF polyethylene glycol 3350 17 gram Powder In Packet 17 g PO DAILY PRN PRN (Reason: Constipation) Qty: 0 0RF Patient Comments: 11/28/22: not taking docusate sodium [Colace] 100 mg Capsule 100 mg PO TID PRN PRNQty: 0 0RF cholecalciferol (vitamin D3) 125 mcg (5,000 unit) capsule 125 mcg PO DAILY nystatin 100,000 unit/gram powder 1 applic topical TID ezetimibe 10 mg tablet 10 mg PO DAILY Xarelto 20 mg tablet 20 mg PO DAILY betamethasone dipropionate 0.05 % cream 0.05 applic TOPICAL DAILY Held diphenhydramine HCl 25 mg Tablet 25 mg PO DIRECTED PRN Hold Instructions: Resume on 03/05/24. Resume as per PCP Discharge Instructions Referrals: Ginette Villavicencio [Primary Care Provider] - 03/10/24 3:15 am Activity:: Activity as Tolerated Equipment/Supplies:: Walker Diet:: Diabetic Heart Healthy Discharge Orders Discharge Orders: Discharge Order (Routine); Ordered 02/27/24 Ordered By: Delores Omer Discharge Data Discharge Date/Time-TO BE ENTERED AT DEPARTURE: 02/27/24 14:12 DS: Summary Time Spent with Patient providing and/or coordinating discharge services: Greater than 30 minutes Status at Discharge Functional status at discharge: uses cane/walker Overall status at discharge: patient is progressing back to baseline Mental Status: mental status grossly normal Speech and Movement: speech and movement normal Mood: congruent mood Affect: normal affect Quality:SDOH Health Related Social Needs: Health related social needs risk of homeless Exam Narrative Exam Narrative: Constitutional The patient is sitting in chair/ lying in bed comfortable and cooperative during the interview. HENMT: Facial structures with normal appearance Neuro:alert and oriented X 4, no focal deficits Resp: CTA Cardio: regular rhythm, S1, S2 GI: Abdomen is large not distended, soft and non tender, bowel sounds are present Back/spine/Pelvis: No back tenderness, normal alignment Extremities: strength 4/5 to bilateral lower extremities Psych: RASS 0, congruent mood and normal affect. Psych Mental Status: mental status grossly normal Speech and Movement: speech and movement normal Mood: congruent mood Affect: normal affect DS: Data Vitals/I&O Vitals and I&O: Vital Signs Temperature 36.5 C 02/27/24 07:48 Temperature Source Tympanic 02/27/24 07:48 Pulse 64 02/27/24 07:48 Pulse Rhythm Irregular 02/26/24 19:45 Pulse 79 02/25/24 00:10 Respiratory Rate 18 02/27/24 07:48 Respiratory Effort Normal, Non-Labored 02/26/24 19:45 Respiratory Depth Normal 02/26/24 19:45 Respiratory Pattern Normal 02/26/24 19:45 Blood Pressure 145/91 H 02/27/24 07:48 Pulse Oximetry 97 02/27/24 07:48 Oxygen Delivery Method Room Air 02/27/24 07:48 Oxygen Flow Rate 0 02/27/24 07:48 Pain Level 2 02/27/24 07:48 Intake & Output 02/26/24 02/26/24 02/27/24 11:59 23:59 11:59 Intake Total 1610 / 3760 2150 / 3760 Output Total 100 / 1000 900 / 1000 1025 / 1025 Balance 1510 / 2760 1250 / 2760 -1025 / -1025 Weight 125.6 kg 123.5 kg Intake: IV 1009 / 2009 Oral 600 / 1750 1150 / 1750 Output: Urine 100 / 1000 900 / 1000 1025 / 1025 Other: Urine Color Yellow Yellow Yellow Urine Appearance Clear Clear Clear Urine Odor Normal Strong Comment mixed with stool patient had some incontinence on bedside waiting for standby assist. did not measure void Stool Size Smear Small Moderate Stool Characteristics Mucoid Soft Soft Brown Voiding Methods Bedside Commode Bedside Commode Bedside Commode Data Completed and Pending Labs on day of discharge: Labs from last 24 hours 02/26/24 10:55 WBC 8.46 RBC 5.34 Hgb 17.1 Hct 52.6 H MCV 99 H MCH 32.0 MCHC 32.5 RDW 14.1 Plt Count 230 MPV 9.1 Immature Gran % 0.2 Neutrophils % 74.4 Lymphocytes % 16.5 Monocytes % 6.3 Eosinophils % 1.9 Basophils % 0.7 Nucleated RBC % 0.0 Absolute Neutrophils 6.29 Absolute Lymphocytes 1.40 Absolute Monocytes 0.53 Absolute Eosinophils 0.16 Absolute Basophils 0.06 Sodium 142 Potassium 4.1 Chloride 110 H Carbon Dioxide 22.8 Anion Gap 9.2 BUN 17 Creatinine 0.7 Est GFR (CKD-EPI 2020) 95.49 Glucose 109 H Calcium 9.2 Magnesium 1.8 PFSH All Active Problems (Updated 02/24/24 @ 22:28 by Delroy Downs) Bilateral leg weakness (Acute) Weight loss due to medication (Acute) Chest pain (Acute) Physician orders for life-sustaining treatment (POLST) form indicates patient wish for [id number] status (Acute) Advance care planning (Acute) Palliative care patient (Acute) HFrEF (heart failure with reduced ejection fraction) (Chronic) Ambulatory dysfunction (Acute) Bilateral leg weakness (Acute) Lumbago (Chronic) Non compliance with medical treatment (Acute) Trochanteric bursitis, left hip (Acute) H/O surgical procedure (Chronic) a. Bilateral hip replacement b. Nephrolithotomy c. Right ureteral stent placement d. Coronary artery stent placement 2006 e. Adult circumcision f. Colonoscopy 11/2013 History of revision of total replacement of left hip joint (Acute 11/01/20) Acetabular revision with head/liner exchange for fractured femoral head prosthesis. Pure hypercholesterolemia, unspecified (Acute) Cerumen impaction (Acute) Body mass index (BMI) 50.0-59.9, adult (Chronic) Type 2 diabetes mellitus without complications (Chronic) Neoplasm of unspecified behavior of bone, soft tissue, and skin (Acute) Nasal dryness (Acute) Acute cholecystitis (Acute 09/07/14) Morbid obesity (Chronic) CAD (coronary artery disease) (Chronic) a. coronary artery stent placement 2006 Personal history of pulmonary embolism (Chronic) Hypertension (Chronic) TOM (obstructive sleep apnea) (Chronic) Personal history of kidney stones (Chronic) a. uric acid stones Venous stasis ulcer (Chronic) Venous (peripheral) insufficiency (Chronic) Medical History Venous stasis ulcer of left lower extremity HNP (herniated nucleus pulposus), lumbar Relative polycythemia Failed total hip arthroplasty Heart failure with preserved ejection fraction CAD (coronary artery disease) Cholangitis Nephrolithiasis Phimosis Pulmonary embolism Hx of pulmonary artery thrombosis Venous stasis ulcer of ankle limited to breakdown of skin without varicose veins Anticoagulant long-term use Atrial fibrillation Surgical History H/O bilateral hip replacements Social History Smoking/Tobacco Use Status: Former Tobacco Use Smoking risk assessment performed?: Yes Alcohol Intake: never Drug use: Never Substance use type: does not use Household members: spouse Housing: house What is your relationship status?: Panel score (0-1 are the most socially isolated patients): 1 Do you feel safe at home: Yes Do you feel safe in your relationship?: Yes Time Spent with Patient Time Spent with Patient: 70-84 minutes4 Time was spent: preparing to see the patient(eg.review tests), obtaining and/or reviewing separately otained hiistory, ordering medications,tests, procedures, referring, communicating with other health healthcare network consultant, indepentently interpreting results, counseling the patient and care coordination
--- NOTE | 2024-02-27 11:21 | PT.INTREAT ---
PT Notes Visit Reasons: Bilateral leg weakness, Mild dehydration Inpatient Physical Therapy Treatment Note [facility] Date: 02/27/24 SUBJECTIVE: Pt singing when I entered the room this am. States that he should be going home today. Reports that he has been up most of the night going to the commode to urinate. He reports that he was pleased that he is able to transfer himself although someone was in room with him. Continues to report weakness in legs. OBJECTIVE: []? VITALS: ? monitored by nursing. Therapeutic Activities (11554e[1): Direct one-on-one instruction in dynamic activities to improve functional performance. ? BED MOBILITY/TRANSFERS? Sit-stand:SBA? Stand-sit:SBA ? Provided skilled cues and instruction on performance and technique throughout. GAIT Assistive Device: FWW? Weight bearing:full Assist: SBA/CGA ? Distance:? 3 steps to commode. ? Therapeutic Exercises (77958c6): Direct one-on-one instruction in therapeutic exercises to develop strength, endurance, range of motion and flexibility. ? Exercises ?Seated ankle DF with band x15, Knee flex with sng band 2x10, LAQ with 3# 2x10, seated november 08# 20x. Provided skilled instruction in proper exercise performance ASSESSMENT:?pt tolerated ex well. Encouraged ex with added resistance vs high reps to challenge his strength of which he did well with. Upon transferring commode to recliner his legs gave out and he was safely lowered to the floor by nurse Jaswinder and myself. No injury reported. Jimbo denied feeling pain or injury. Alcides was used to return Jimbo back to recliner. PLAN: will continue to work on strength and independence with transfers. TREATMENT CODE/TIME: 30min 07014a2, 98893q1
[2024-02-27 11:23] VITALS: BP 141/96; PULSE 84; RESP 18; TEMP 36.6; O2SAT 97
--- NOTE | 2024-02-27 13:51 | PDOC.CMDIS ---
Date of service: 02/27/24 Time of Service: 17:08 LACE Index Scoring Tool Questions: Length of Stay (in days): 3 Was the patient admitted via the E.D.?: Yes Comorbidities: Diabetes w/o Complication E.D. Visits: 0 Answers: Total Score: 7 Risk of Readmission: Low Risk Care Management Discharge Plan Reason for Hospitalization: Bilateral leg weakness, mild dehydration Discharge Plan: Jaime will discharge to [facility] for short term rehab prior to returning home. He will transport via [employer] W/C [facility], coordinated by this typewriter aligner. His will bring his belongings including his home CPAP to [facility] as well. Patient/Family Education Needs: CM met with Jaime and his to review ACO Attributed Waiver for SNF, patient goals of care and answer questions re: funding for SNF, patient rights and choice with discharge from [facility] and SNF. Services Needed at Discharge: Nursing Home Facility and Transportation SDOH Health Related Social Needs: Health related social needs risk of homeless Health related social needs: housing instability, housed, with risk of homelessness(Z59.811)
--- NOTE | 2024-02-27 14:06 | NUR.NOTE ---
Nursing Note: Pt has all personal belongings, escorted to main entrance with staff for transfer to [facility] via W/C van.
== END 2024-02-27 14:12 | disposition skilled nursing facility (03) ==
LOC: ER 02-25 00:50 → MS 02-25 00:52
PROVIDERS: Nurse Practitioner Acute Care; Admitting Provider Family Medicine; Emergency Provider Emergency Medicine; PCP Family Medicine; Visit Provider Family Medicine
DX: R29.898 Other symptoms and signs involving the musculoskeletal system (principal); R53.1 Weakness; E11.9 Type 2 diabetes mellitus without complications; G47.33 Obstructive sleep apnea (adult) (pediatric); D45 Polycythemia vera; Z66 Do not resuscitate; Z86.711 Personal history of pulmonary embolism; I87.2 Venous insufficiency (chronic) (peripheral); N20.0 Calculus of kidney; Z79.899 Other long term (current) drug therapy; I25.10 Atherosclerotic heart disease of native coronary artery without angina pectoris; I50.22 Chronic systolic (congestive) heart failure; Z96.643 Presence of artificial hip joint, bilateral; E78.00 Pure hypercholesterolemia, unspecified; E66.01 Morbid (severe) obesity due to excess calories; Z79.85 Long-term (current) use of injectable non-insulin antidiabetic drugs; M48.061 Spinal stenosis, lumbar region without neurogenic claudication; I11.0 Hypertensive heart disease with heart failure; Z68.39 Body mass index [BMI] 39.0-39.9, adult
CPT/HCPCS: 00123; 36415; 80048; 80053; 82550; 96360; 96361; 97110; 97162; 97530; 99285; 81003; 81015; 83735; 84443; 84484; 85025; 99223; 99233; 99239; G0378; J1815; J3480; J3490

== ENCOUNTER 2024-08-20 05:49 | Observation (INO) | payer MEDICARE, BC, SELFPAY ==
[2024-08-20] VITALS (50 sets, daily range): BP systolic 95–142; BP diastolic 37–82; PULSE 67–88; RESP 13–31; TEMP 36.1–36.9; O2SAT 87–99
--- NOTE | 2024-08-20 05:45 | RT.EKG_ITS ---
APPROVED REPORT Exam: Resting ECG Reason for Exam: SOB Patient Location: E HR:75 bpm ECG Measurements Heart Rate 75 AXIS LA [id number] P [id number] QRSd 125 QRS -20 QT 402 T 17 QTc 451 Conclusion Atrial fibrillation...V-rate 66- 82, irreg A-activity no ST segment or T wave abnormalities to suggest occlusive MN
--- NOTE | 2024-08-20 06:15 | DI.RAD_ITS ---
Exam(s) XR PORTABLE CHEST AP EXAM: XR PORTABLE CHEST AP CLINICAL HISTORY: covid. TECHNIQUE: 2D digital imaging was performed. COMPARISON: CR XR CHEST 2V PA LATERAL from 03/04/2023 FINDINGS: Single AP portable view. Cardiomegaly again noted. Mediastinum not widened. Lungs are clear. No infiltrates nor obvious pleural effusions. IMPRESSION: No acute pulmonary findings on this single AP portable view of the chest. Cardiomegaly again noted. No pulmonary edema. DATA REPOSITORY: RADIATION DOSE DELIVERED:
--- OUTSIDE RECORDS SUMMARY | 2024-08-20 06:20 | XMS_ITS | Encounter Summary ---
Author Organization [facility] Address [address] [place] [address] Care Team Providers Care Thread Singer Name Role Phone Unknown, Provider Primary Care Provider Riley pollock Encounter Details Date Type Department Care Team (Late st Contact Info) Description 08/09/2022 Lab Requisition [facility] - [facility] [address] [place] [address] Outr Resulting Lab, Provider Social History Tobacco Use Types Packs/Day Years Used Date Smoking Tobacco: Never Assessed Sex and Gender Information Value Date Recorded Sex Assigned at Not on file Legal Sex Male 1:44 EST Gender Identity Not on file Sexual Orientation Not on file documented as of this encounter Plan of Treatment Not on file documented as of this encounter Procedures Procedure Name Priority Date/Time Associated Diagnosis Comments SPEP, INCLUDES QUANTITATION OF MONOCLONAL SPIKE PERFORMABLE Today 08/08/2022 12:30 EST IMMUNOTYPING, SERUM Today 08/08/2022 1 2:30 EST SPEP, INCLUDES QUANTITATION OF MONOCLONAL SPIKE Routine 08/08/2022 12:30 EST PROTEIN, TOTAL Today 08/08/2022 12:30 EST documented in this encounter Results * IMMUNOTYPING, SERUM (08/08/2022 12:30 EST) Immunotyping, Serum Current Interpretation : Negative for monoclonal immunoglobulin s. Reviewed by: Blas Mcclain MD 08/12/2022 1512 08/12/2022 15:53 EST [facility] Blood VENOUS BLOOD / Unknown 08/08/2022 12:30 EST 08/09/2022 18:35 EST us Provider Outr Resulting Lab CHEMISTRY & BLOOD GA S ORDERABLES Final Result [facility] [address] [place] [address] * (ABNORMAL) SPEP, INCLUDES QUANTITATION OF MONOCLONAL SPIKE PERFORMABLE (08/08/2022 12:30 EST) Albumin % 54.9(L) 55.8 - 66.1 % 08/12/2022 14:35 [facility] Albumin g/dL 3.9 3.6 - 5.2 g/dL 08/12/2022 14:35 [facility] Alpha-1 % 4.3 2.9 - 4.9 % 08/12/2022 14:35 [facility] Alpha-1 g/dL 0.30 0.15 - 0.40 g/dL 08/12/2022 14:35 [facility] Alpha-2 % 12.1(H) 7.1 - 11.8 % 08/12/2022 14:35 [facility] Alpha-2 g/dL 0.90 0.50 - 1.00 g/dL 08/12/2022 14:35 [facility] Beta % 12.6 8.4 - 13.1 % 08/12/2022 14:35 [facility] Beta g/dL 0.90 0.60 - 1.20 g/dL 08/12/2022 14:35 [facility] Gamma % 16.1 11.1 - 18.8 % 08/12/2022 14:35 [facility] Gamma g/dL 1.10 0.60 - 1.60 g/dL 08/12/2022 14:35 [facility] SPEP Comment Suspicious pattern seen on protein electrophoresis, immunotyping added by reflex. 08/12/2022 14:35 [facility] Comment:See scanned/suppleme ntary report. Total Protein 7.1 6.3 - 8.2 g/dL 08/12/2022 14:35 [facility] Blood VENOUS BLOOD / Unknown 08/08/2022 12:30 EST 08/09/2022 18:35 EST us Provider Outr Resulting Lab CHEMISTRY & BLOOD GA S ORDERABLES Final Result Performing Organization Address [facility] de Phone Number [facility] [address] [place] [address] * PROTEIN, TOTAL (08/08/2022 12:30 EST) Blood VENOUS BLOOD / Unknown 08/08/2022 12:30 EST 08/09/2022 18:35 EST us Provider Outr Resulting Lab CHEMISTRY & BLOOD GA S ORDERABLES Final Result Performing Organization Address [facility] Co de Phone Number [facility] [address] [place] [id number] documented in this encounter Visit Diagnoses Not on filedocumented in this encounter Care Teams Thread Singer Relationship Specialty Start Date End Date Unknown, Provider, PCP - General 08/08/22 documented as of this encounter
--- OUTSIDE RECORDS SUMMARY | 2024-08-20 06:20 | XMS_ITS | Referral Summary ---
Author Organization [facility] Address [address] [place] [address] Care Team Providers Care Pharmacy Operations Manager Name Role Phone Unknown, Provider Primary Care Provider Unava ilable Social History Tobacco Use Types Packs/Day Years Used Date Smoking Tobacco: Never Assessed Sex and Gender Information Value Date Recorded Sex Assigned at Not on file Legal Sex Male 1:44 EST Gender Identity Not on file Sexual Orientation Not on file Plan of Treatment Not on file Insurance [facility] MEDICARE Care Teams Pharmacy Operations Manager Relationship Specialty Start Date End Date Unknown, Provider, PCP - General 08/08/22
--- OUTSIDE RECORDS SUMMARY | 2024-08-20 06:20 | XMS_ITS | Encounter Summary ---
Author Organization [facility] [place] [id number] Care Team Providers Care Tetryl Wringer Operator Name Role Phone Nick Nettles MD Primary Care Provider Encounter Details Date Type Department Care Team (Late st Contact Info) Description 08/07/2022 Ancillary Procedure Radiology Library at [facility] [place] [id number] Nick Nettles MD [address] [place], [place] [address] Social History Tobacco Use Types Packs/Day Years Used Date Smoking Tobacco: Former Cigarettes Q uit: 01/21/1967 Smokeless Tobacco: Never Alcohol Use Standard Drinks/Week Comments Yes 0 (1 standard drink = 0.6 oz pure alcohol) varies on kind, drinks maybe once a week\ Sex and Gender Information Value Date Recorded Sex Assigned at Not on file Gender Identity Not on file Sexual Orientation Not on file documented as of this encounter Plan of Treatment Not on file documented as of this encounter Procedures Procedure Name Priority Date/Time Associated Diagnosis Comments FILM LIBRARY STORAGE ONLY DX SPINE Routine 08/07/2022 12:00 AM EST documented in this encounter Results * Film Library- Storage Only DX Spine (08/07/2022 12:00 AM EST) Narrative [facility] - 09/16/2022 8:22 PM EST This exam is auto-finalizing. It's purpose is for storage only. Nick Nettles MD IM FILM LIBRARY ORD ERABLES [place], [place] documented in this encounter Visit Diagnoses Not on filedocumented in this encounter Care Teams Tetryl Wringer Operator Relationship Specialty Start Date End Date Nick Nettles MD [address] [place] [address] PCP - General Internal Medicine 10/05/19 documented as of this encounter
--- OUTSIDE RECORDS SUMMARY | 2024-08-20 06:20 | XMS_ITS | Encounter Summary ---
Author Organization [facility] Address [facility] [place] [address] Care Team Providers Care Supervisor Data Processing Name Role Phone Nick Nettles MD Primary Care Provider [phone] Encounter Details Date Type Department Care Team (Late st Contact Info) Description 10/24/2021 Orders [place] [address] Barb Groves PA [facility] [place] [address] Non-healing wound of lower extremity, unspecified laterality, initial encounter Social History Tobacco Use Types Packs/Day Years [...] on file documented as of this encounter Visit Diagnoses Diagnosis Non-healing wound of lower extremity, unspecified laterality, initial encounter documented in this encounter Care Teams Supervisor Data Processing Relationship Specialty Start Date End Date Nick Nettles MD [address] [place] [address] PCP - General Internal Medicine 10/05/19 documented as of this encounter
--- OUTSIDE RECORDS SUMMARY | 2024-08-20 06:20 | XMS_ITS | Clinical Summary ---
Author Organization [facility] Address [facility] [place] [address] Care Team Providers Care Lay Out Drafter Name Role Phone Nick Nettles MD Primary Care Provider [phone] Allergies Active Allergy Reactions Criticality Noted Date Comments Metformin 10/05/2019 Medications Medication Sig Dispensed Refills Start Date End Date Status atorvastatin (LIPITOR) 80 mg Tablet Take 80 mg by mouth daily. Active nitroGLYcerin (NITROSTAT) 0.4 mg Tablet, Sublingual Place 0.4 mg under the tongue every 5 minutes as needed for Chest pain. Reported on 02/17/2017 Active lisinopril (PRINIVIL;ZESTRIL) 20 mg Tablet Take 1 tablet by mouth daily. 30 tablet 0 09/20/2014 Active allopurinol (ZYLOPRIM) 300 mg Tablet Take 300 mg by mouth daily. Active aspirin 81 mg Tablet, Delayed Release (E.C.) Take 1 tablet by mouth daily. 30 tablet 3 01/21/2017 Active Additional Information Patient not taking.Reported on 11/16/2020 meTOPROLOL succinate (TOPROL XL) 200 mg Tablet Sustained Release 24 hr Take 1 tablet by mouth daily. 30 tablet 12 01/21/2017 Active furosemide (LASIX) 40 mg Tablet Take 20 mg by mouth daily. Active potassium Citrate (UROCIT) 10 mEq (1,080 mg) Tablet Sustained Release Take by mouth 2 times daily. 2 tablets twice daily Active warfarin (COUMADIN) 5 mg Tablet take 1 tablet by mouth once daily 0 05/04/2018 Active acetaminophen (Tylenol) 500 mg Tablet Take 2 tablets by mouth every 8 hours. 11/03/2020 Active bisacodyL (Dulcolax) [address] 1 suppository rectally daily as needed (constipation). 11/03/2020 Active Additional Information Patient not taking.Reported on 11/16/2020 miconazole (MICOTIN) 2 % Powder Apply topically 2 times daily. 11/03/2020 Active Additional Information Patient taking differently:Topical (Top)PRN, Reported on 10/21/2022 multivitamin with minerals (THERA-M) 9 mg iron-400 mcg Tablet Take 1 tablet by mouth daily. 11/04/2020 Active Additional Information Patient not taking.Reported on 10/21/2022 oxyCODONE (Roxicodone) 5 mg Tablet Take 1 tablet by mouth every 4 hours as needed for Pain (pain not relieved by Tylenol). 11/03/2020 Active Additional Information Patient not taking.Reported on 11/16/2020 insulin lispro (HumaLOG) 100 unit/mL Solution Inject 1-5 Units subcutaneously every 4 hours. CORRECTION BOLUS [1-4 Units] Sensitive Sliding Scale: Correction factor 40 (1 unit of insulin is expected to drop the glucose 40 mg/dL) BG 160 - 200 Give 1 unit BG 201 - 240 Give 2 units BG 241 - 280 Give 3 units BG greater than 280, give 4 units and recheck BG in 2 hours. - If recheck BG is LESS than 280, give no insulin and resume schedule - If recheck BG is GREATER than 280, give 4 units and repeat BG in 2 hours (no more than 3 times) & call for new insulin orders. DO NOT hold if NPO, unless specifically told to do so. Per Blood Glucose Monitoring Policy, re-check a BG of > 240 in 2 hours. 11/03/2020 Active Additional Information Patient not taking.Reported on 10/21/2022 polyethylene glycoL (Miralax) 17 gram Powder in Packet Take 17 g by mouth 2 times daily. 11/03/2020 Active Additional Information Patient not taking.Reported on 10/21/2022 senna-docusate (Pericolace) 8.6-50 mg Tablet Take 2 tablets by mouth 2 times daily. 11/03/2020 Active Additional Information Patient not taking.Reported on 10/21/2022 empagliflozin (Jardiance) 25 mg Tablet Take 25 mg by mouth daily. Active Active Problems Patient Care Coordination No te Formatting of this note migh t be different from the original. 10/31/20 [facility]. PHONE: [phone] FAX: [phone] [facility] Stasis Dermatitis bilateral lower extremities. Mindy boot on Left, Compression stocking on the right. Problem Noted Date Diagnosed Date HNP (herniated nucleus pulposus), lumbar 023 10/31/2020 Status post revisi on of Left total hip (Dr. 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 Patient wanted bariatric surgery but was above the age limit. [facility] : 10/02/2017. Weight 435 lbs. Metformin was started. He is scheduled for year-long healthy lifestyles program. CAD 09/20/2014 Overview (01/21/2017): Hospitalized for unstable angina, had PCI in proximal LAD and POBA on ostial D1 in 02/2007 Nonsustained ventricular tachycardia 09/20/2014 Hypertension 09/09/2014 Suspected cholecystitis vs cholangitis 5 Overview (10/17/2015): S/p sphincerotomy - s/p saadia 09/01/15 Atrial fibrillation 09/09/2014 Overview (11/03/2017): On warfarin TOM on CPAP 09/09/2014 Phimosis 12/11/2011 Nephrolithiasis 09/10/2011 Resolved Problems Problem Noted Date Diagnosed Date Resolved Date Pre-diabetes 10/04/2017 12/18/2017 Overview (10/06/2017): Hemoglobin A1c 6.1, 4.2017 in scanned documents. Hypertension (HTN) 09/20/2014 8 Hematuria 09/20/2014 09/20/2014 Volume overload 09/12/2014 09/20/2014 Social History Tobacco Use Types Packs/Day Years [...] on file Sexual Orientation Not on file Last Filed Vital Signs Vital Sign Reading Time Taken Comments Blood Pressure 128/68 11/16/2020 10:25 AM EST Pulse 82 11/16/2020 10:25 AM EST Temperature 36.6 ??C (97.9 ??F) 11/03/2020 7:35 AM ES T Respiratory Rate 18 11/03/2020 7:35 AM EST Oxygen Saturation 94% 11/03/2020 7:35 AM EST Inhaled Oxygen Concentration - - Weight 139.7 kg (308 lb) 10/21/2022 9:36 AM EST Height 177.8 cm (5' 10) 10/21/2022 9:36 AM EST Body Mass Index 44.19 10/21/2022 9:36 AM EST Plan of Treatment Health Maintenance Due Date Last Done Comments Pneumoccocal Vaccine: 65+ (1 of 2 - PCV) 1953 DM Opthalmology Exam 1957 DM Urine Microalbumin yearly 1957 Tetanus/Diphtheria/Pertussis Vaccines (1 - Tdap) 1966 Zoster vaccine (1 of 2) 1997 DM Hemoglobin A1c 01/29/2021 11/01/2020, , 10/09/2017 DM Creatinine yearly 11/03/2021 11/03/2020, 11/02/2020, 11/01/2020, Additional history exists RSV Vaccine (1 - 1-dose 75+ series) 2022 Covid-19 Vaccine (1 - 2023-2 5 season) 2024 Influenza (Flu) vaccine (1 o f 1 - Influenza standard series) 05/09/2024 Hepatitis C Screening Completed 08/31/2015 , 08/31/2015, 09/10/2014 Medical Devices Implanted Type Area Supervisor Edging Device Identifier Shelf Expiration Date Model / Serial / Lot Graft Bone Filler 10ml Calcium Sulfate Powder Injectable ([id number]) - [id number] Implanted:Qty : 1 on 11/01/2020 by Geovani Strange MD at [facility] IMPLANTS Left: Hip [employer] - BIOCOMPOSI [id number] 08/07/2023 620-010 / / [id number] Description:Mixed with 1.2g Tobramycin and 1g Vancomycin. Shell Acet Hip 62mm Por Ctd Multi Hole Ti [place] Gription ([id number]) (Autoreq) - [id number] Implanted:Qty : 1 on 11/01/2020 by Geovani Strange MD at [facility] IMPLANTS Left: Hip [employer] - RAYSA BHARAT [id number] 07/08/2029 2 / / [id number] Screw Hip Acet 6.5x20mm Ft Canc Hex Drv Ti [place] ([id number]) (Autoreq) - [id number] Implanted:Qty : 1 on 11/01/2020 by Geovani Strange MD at [facility] IMPLANTS Left: Hip RAYSA [employer] RAYSA Tech21 - RAYSA BHARAT 06/07/2030 0 / / [id number] Liner Acet Hip [id number] 0d Stnd Ceramic Ceramax ([id number]) (Autoreq) - [id number] Implanted:Qty : 1 on 11/01/2020 by Geovani Strange MD at [facility] IMPLANTS Left: Hip [employer] - RAYSA BHARAT [id number] 04/07/2023 2 / / [id number] Screw Hip Acet 6.5x25mm Ft Canc Hex Drv Ti [place] ([id number]) ([employer]oreq) - [id number] Implanted:Qty : 1 on 11/01/2020 by Geovani Strange MD at [facility] IMPLANTS Left: Hip [employer] - RAYSA BHARAT [id number] 05/08/2030 0 / / [id number] Depuy, [place], Cancellous Bone Screw, [id number] Implanted:Qty : 1 on 11/01/2020 by Geovani Strange MD at [facility] Left: Hip 01/05/2029 0 / / [id number] [employer]za [employer] Nephew, Oxinium, 36mm O.D., +4, 14/16 Taper Femoral Head Implanted:Qty : 1 on 11/01/2020 by Geovani Strange MD at [facility] Left: Hip 04/23/2025 [id number] / / [id number] Procedures Procedure Name Priority Date/Time Associated Diagnosis Comments BASIC METABOLIC PANEL Routine 11/03/2020 3:17 AM EST HC HEMOGLOBIN A1C Routine 11/01/2020 3:5 2 AM EST HEPATITIS C ANTIBODY Routine 08/31/2015 3:38 PM EST from Last 3 Months or Most Recently Relevant to Health Maintenance Results * (ABNORMAL) Basic Metabolic Panel (non-fasting) (11/03/2020 3:17 AM EST) Glucose 147 65 - 199 mg/dL [facility] Comment:Diabetes: >=200 mg/d L plus symptoms Blood Urea Nitrogen 23(H) 10 - 20 mg/dL [facility] Creatinine 0.78(L) 0.80 - 1.50 mg/dL [facility] Sodium 141 135 - 145 mmol/L [facility] Potassium 4.5 3.5 - 5.0 mmol/L [facility] Comment: Please note: ??Patients with WBC >100,000 may have falsely elevated Potassium levels. ??For accurate Potassium quantification in these patients send serum separator tube (gold top) for subsequent determinations. ??Contact the Clinical Chemistry Laboratory if there are any questions. Chloride 107 98 - 107 mmol/L [facility] Carbon Dioxide 23 22 - 31 mmol/L [facility] Anion Gap 11 5 - 15 mmol/L [facility] Calcium 9.3 8.5 - 10.5 mg/dL [facility] Est Glomerular Filtration Rate 90 >=60 mL/min/1. 73 m?? [facility] Comment: This patient? s estimated glomerular filtration rate (eGFR) is between 90 mL/min/1.73 m2 (patients with less muscle mass per kg body weight) and 104 mL/min/1.73 m2 (patients with more muscle mass per kg body weight) as determined by the CKD-EPI equation. Assessment of eGFR is not appropriate when creatinine concentrations are rapidly changing. For clinical decisions where creatinine clearance will affect therapy, a 24-hour urine creatinine clearance may be advised. Assignment of CKD stage 1 ? 5 for patients with an eGFR near the transition point between stages may be based on clinical assessment of muscle mass and symptoms in addition to eGFR. Blood specimen (specimen) 11/03/2020 3:17 AM EST 11/03/2020 3:50 AM EST Narrative Resulting Agency Comment Spec In Lab Jeffrey Cuevas MD CHEMISTRY ORDERABLES [facility] [place] [address] * (ABNORMAL) Hemoglobin A1c (11/01/2020 3:52 AM EST) Hemoglobin A1c 7.6(H) 4.3 - 5.6 % [facility] Comment: Reference Range: 4.3 - 5.6% 5.7 - 6.4% - Increased Risk of Developing Diabetes Mellitus >= 6.5% - Consistent with diagnosis of Diabetes Mellitus In the absence of hyperglycemia (i.e. plasma glucose > 200 mg/dL) or classic symptoms of hyperglycemia a repeat measurement of HbA1c should be performed on a separate sample to confirm the diagnosis. Diagnosis and Classification of Diabetes Mellitus, Diabetes Care 2013; 36: Suppl. 1, X47-48 Estimated Average Glucose See note mg/dL [facility] Comment: Estimated Average Glucose not appropriate for patients over 70 years of age. eAG equivalents for HbA1c percentages: HbA1c(%) ?eAG(mg/dL) 6.0 ?126 6.5 ?140 7.0 ?154 7.5 ?169 8.0 ?183 8.5 ?197 9.0 ?212 9.5 ?226 10.0 ? 240 Limitations: The eAG calculation has not been validated on women, individuals below 18 years old and above 70 years old, and individuals with hemoglobinopathies. Additional resources are available on the ADA website. Hira LANDON, Jose Guadalupe J, Drake R, et al. ??Translating the A1C assay into estimated average glucose values. ??Diabetes Care 2008:31(8):2883-6335. Blood specimen (specimen) 11/01/2020 3:52 AM EST 11/01/2020 4:13 AM EST Narrative Resulting Agency Comment Spec In Lab Geovani Strange MD CHEMISTRY ORDERABLE S [facility] [place] [address] * Hepatitis C Antibody (08/31/2015 3:38 PM EST) Hepatitis C Antibody Negative Negative [facility] Blood specimen (specimen) 08/31/2015 3:38 PM EST 08/31/2015 3:45 PM EST Narrative Resulting Agency Comment Spec In Lab Delroy Chu MD CHEMISTRY ORDERABLES [facility] from Last 3 Months or Most Recently Relevant to Health Maintenance Advance Directives Documents on File Type Date Recorded Patient Unit Control Worker Expl anation Advance Directives and Livin g Will 09/12/2014 3:21 PM 10/17/13 * Attempt Cardiopulmonary Resuscitation - Inpatient (Latest Code Status on File) Date Activated Date Inactivated Comments 10/31/2020 5:54 PM 11/03/2020 5:21 PM Question Answer Comments Code Status decision made by: Patient * Full Code Date Activated Date Inactivated Comments 08/30/2015 1:11 AM 09/02/2015 3:45 PM Question Answer Comments Does patient have capacity to make decision: Yes * Full Code Date Activated Date Inactivated Comments 09/09/2014 10:23 PM 09/20/2014 5:37 PM Question Answer Comments Order Status: Initial Order Does patient have decision m aking capacity? Yes, Order is based on Patients wishes. Care Teams Lay Out Drafter Relationship Specialty Start Date End Date Nick Nettles MD [address] [place] [address] PCP - General Internal Medicine 10/05/19
--- OUTSIDE RECORDS SUMMARY | 2024-08-20 06:20 | XMS_ITS | Encounter Summary ---
Author Organization [facility] [place] [address] Care Team Providers Care Carbon Capture Power Plant Manager Name Role Phone Nick Nettles MD Primary Care Provider [phone] Encounter Details Date Type Department Care Team (Late st Contact Info) Description 11/04/2021 Ancillary Procedure Radiology Library at [facility] [place] [address] Nick Nettles MD [address] [place], [place] [address] Social History Tobacco Use Types Packs/Day Years [...] Diagnosis Comments FILM LIBRARY STORAGE ONLY DX KNEE Routine 11/04/2021 12:00 AM EST documented in this encounter Results * Film Library- Storage Only DX Knee (11/04/2021 12:00 AM EST) Narrative [facility] - 09/16/2022 8:23 PM EST This exam is auto-finalizing. It's purpose is for storage only. Nick Nettles MD IM FILM LIBRARY ORD ERABLES [place], [place] documented in this encounter Visit Diagnoses Not on filedocumented in this encounter Care Teams Carbon Capture Power Plant Manager Relationship Specialty Start Date End Date Nick Nettles MD [address] [place] [address] PCP - General Internal Medicine 10/05/19 documented as of this encounter
--- OUTSIDE RECORDS SUMMARY | 2024-08-20 06:20 | XMS_ITS | Encounter Summary ---
Author Organization [facility] [place] [address] Care Team Providers Care Surgical Instrument Technician Name Role Phone Nick Nettles MD Primary Care Provider [phone] Encounter Details Date Type Department Care Team (Late st Contact Info) Description 08/26/2022 Ancillary Procedure Radiology Library at [facility] [place] [address] Nick Nettles MD [address] [place], [place] [address] Social History Tobacco Use Types Packs/Day Years [...] Associated Diagnosis Comments FILM LIBRARY STORAGE ONLY MR SPINE Routine 08/26/2022 12:00 AM EST documented in this encounter Results * Film Library- Storage Only MR Spine (08/26/2022 12:00 AM EST) Narrative [facility] - 09/16/2022 8:20 PM EST This exam is auto-finalizing. It's purpose is for storage only. Nick Nettles MD IM FILM LIBRARY ORD ERABLES [place], [place] documented in this encounter Visit Diagnoses Not on filedocumented in this encounter Care Teams Surgical Instrument Technician Relationship Specialty Start Date End Date iNck Nettles MD [address] [place] [address] PCP - General Internal Medicine 10/05/19 documented as of this encounter
--- OUTSIDE RECORDS SUMMARY | 2024-08-20 06:20 | XMS_ITS | Encounter Summary ---
Author Organization [facility] [place] [address] Care Team Providers Care Die Keeper Name Role Phone Nick Nettles MD Primary Care Provider [phone] Reason for Referral * Consultation (SHEILA) - Closed Specialty Diagnoses / Procedures Referred By Contac t Referred To Contact Wound Care Diagnoses Stasis edema with ulcer, unspecified laterality Nick Nettles MD [address] [place] [address] [facility] [place] [address] Referral ID Status Reason Start Date Expiration Date V isits Requested Visits Authorized [id number] Closed Consult, Test & Treat PCP Updated and/or Approved 08/08/2022 08/08/2023 12 12 Encounter Details Date Type Department Care Team (Latest Contact Info) Description 08/08/2022 Transcribe Orders eD Incoming Referrals [phone] Nick Nettles MD [address] [place] [address] Stasis edema with ulcer, unspecified laterality Social History Tobacco Use Types Packs/Day Years [...] as of this encounter Plan of Treatment Scheduled Referrals Name Type Priority Associated Diagnoses Orde r Schedule Referral to Wound Clinic Outpatient Referral Urgent Stasis edema with ulcer, unspecified laterality Ordered: 08/08/2022 documented as of this encounter Visit Diagnoses Diagnosis Stasis edema with ulcer, unspecified laterality documented in this encounter Care Teams Die Keeper Relationship Specialty Start Date End Date Nick Nettles MD [address] [place] [address] PCP - General Internal Medicine 10/05/19 documented as of this encounter
--- OUTSIDE RECORDS SUMMARY | 2024-08-20 06:20 | XMS_ITS | Encounter Summary ---
[place] [address] Care Team Providers Care Multimedia Coordinator Name Role Phone Nick Nettles MD Primary Care Provider Reason for Referral * Consultation (Routine) - Closed Specialty Diagnoses / Procedures Referred By Carla soto Referred To Contact Hematology and Oncology Diagnoses Elevated hematocrit Madison Strickland MD [address] [place] [address] [facility] [address] [place] [address] Referral ID Status Reason Start Date Expiration Date V isits Requested Visits Authorized [id number] Closed Consult, Test & Treat 12/18/2022 12/18/2023 1 1 Encounter Details Date Type Department Care Team (Latest Contact Info) Description 12/18/2022 Transcribe Orders eDH Incoming Referrals [phone] Madison Strickland MD [address] [place] [phone] Elevated hematocrit Social History Tobacco Use Types Packs/Day Years [...] Scheduled Referrals Name Type Priority Associated Diagnoses Order Schedule Referral to Hematology and Oncology Outpatient Referral Routine Elevated hematocrit Ordered: 12/18/2022 documented as of this encounter Visit Diagnoses Diagnosis Elevated hematocrit Other hemoglobinopathies documented in this encounter Care Teams Multimedia Coordinator Relationship Specialty Start Date End Date Nick Nettles MD [address] [place] [address] PCP - General Internal Medicine 10/05/19 documented as of this encounter
--- OUTSIDE RECORDS SUMMARY | 2024-08-20 06:20 | XMS_ITS | Encounter Summary ---
[place] [address] Care Team Providers Care Instructor Hairspring Name Role Phone Nick Nettles MD Primary Care Provider [phone] Encounter Details Date Type Department Care Team (Late st Contact Info) Description 10/18/2021 Telephone [place] [id number] Corrina Liu Social History Tobacco Use Types Packs/Day Years [...] on file documented as of this encounter Miscellaneous Notes * Telephone Encounter - Corrina Vasquez - 10/18/2021 7:09 AM EST OUR REFERRAL FORM FAXED TO [phone]. documented in this encounter Plan of Treatment Not on file documented as of this encounter Visit Diagnoses Not on filedocumented in this encounter Care Teams Instructor Hairspring Relationship Specialty Start Date End Date Nick Nettles MD [address] [place] [address] PCP - General Internal Medicine 10/05/19 documented as of this encounter
--- OUTSIDE RECORDS SUMMARY | 2024-08-20 06:20 | XMS_ITS | Encounter Summary ---
Author Organization [facility] [place] [address] Care Team Providers Care Rehabilitation Program Coordinator Name Role Phone Nick Nettles MD Primary Care Provider [phone] Encounter Details Date Type Department Care Team (Late st Contact Info) Description 11/14/2020 Interpretation Only [address] [id number] Sharda Gurrola, TAYLER [address] [place] [address] Social History Tobacco Use Types Packs/Day Years [...] Procedure Name Priority Date/Time Associated Diagnosis Comments XR PELVIS AND HIP 2 VIEWS LEFT Routine 11/14/2020 11:59 AM EST documented in this encounter Results * XR Pelvis and Hip 2 Views Left (11/14/2020 11:59 AM EST) Anatomical Region Laterality Modality Pelvis, Hip Left Radiographic Fior ging 11/14/2020 11:5 9 AM EST Impressions 11/14/2020 12:32 PM EST Status post left total hip arthroplasty without radiographic evidence of hardware complication. Similar appearance of asymmetric right total hip polyethylene liner wear. Thank you for letting us participate in the care of this patient. For questions regarding this report, please contact the number below. ? Electronically signed by: Adolph Archer MD, [facility] ([phone]), at 11/14/2020 12:27 PM Narrative 11/14/2020 12:32 PM EST EXAMINATION: XR HIP 2-3 VIEWS LT W/ PELVIS CLINICAL HISTORY: Post up orthopedic follow up TECHNIQUE: AP view the pelvis. AP and frog-leg lateral views of the left hip. COMPARISON: 10/31/2020 FINDINGS: No displaced pelvic fracture. Similar asymmetric positioning of right femoral head component within the right acetabular cup. There is a left total hip arthroplasty. Similar small metallic densities compared to postoperative radiographs. Similar superior displacement of the greater trochanter. No periprosthetic lucency or fracture. Procedure Note Adolph Archer MD - 11/14/2020 EXAMINATION: XR HIP 2-3 VIEWS LT W/ PELVIS CLINICAL HISTORY: Post up orthopedic follow up TECHNIQUE: AP view the pelvis. AP and frog-leg lateral views of the left hip. COMPARISON: 10/31/2020 FINDINGS: No displaced pelvic fracture. Similar asymmetric positioning of rightfemoral head component within the right acetabular cup. There is a left total hip arthroplasty. Similar small metallic densities compared to postoperative radiographs. Similar superior displacement ofthe greater trochanter. No periprosthetic lucency or fracture. IMPRESSION Status post left total hip arthroplasty without radiographic evidence of hardware complication. Similar appearance of asymmetric right total hip polyethylene linerwear. Thank you for letting us participate in the care of this patient. Forquestions regarding this report, please contact the number below. Sharda E [employer] [facility]STER IMG DX ORDERABLES documented in this encounter Visit Diagnoses Not on filedocumented in this encounter Care Teams Rehabilitation Program Coordinator Relationship Specialty Start Date End Date Nick Nettles MD [address] [place] [address] PCP - General Internal Medicine 10/05/19 documented as of this encounter
--- OUTSIDE RECORDS SUMMARY | 2024-08-20 06:20 | XMS_ITS | Encounter Summary ---
[place] [address] Care Team Providers Care Toy Packer Name Role Phone Nick Nettles MD Primary Care Provider [phone] Reason for Referral * Consultation (Routine) - Closed Specialty Diagnoses / Procedures Referred By Carla soto Referred To Contact Vascular Surgery Diagnoses Chronic venous hypertension w ulcer of bilateral low extrm Skin ulcer of popliteal region, left, with fat layer exposed Non-pressure chronic ulcer of right lower leg with fat layer exposed Morbid obesity Nick Nettles MD [address] [place] [address] [facility] Surg [address] [place] [address] Referral ID Status Reason Start Date Expiration Date V isits Requested Visits Authorized [id number] Closed Consult, Test & Treat 10/20/2021 10/20/2022 2 2 Encounter Details Date Type Department Care Team (Latest Contact Info) Description 10/20/2021 Transcribe [place] [address] Nick Nettles MD [address] [place] [address] Chronic venous hypertension w ulcer of bilateral low extrm; Skin ulcer of popliteal region, left, with fat layer exposed; Non-pressure chronic ulcer of right lower leg with fat layer exposed; Morbid obesity Social History Tobacco Use Types Packs/Day Years [...] Associated Diagnoses Orde r Schedule Referral to Vascular Surgery Outpatient Referral Routine Chronic venous hypertension w ulcer of bilateral low extrm Skin ulcer of popliteal region, left, with fat layer exposed Non-pressure chronic ulcer of right lower leg with fat layer exposed Morbid obesity Ordered: 10/20/2021 documented as of this encounter Visit Diagnoses Diagnosis Chronic venous hypertension w ulcer of bilateral low extrm Skin ulcer of popliteal region, left, with fat layer exposed Non-pressure chronic ulcer of right lower leg with fat layer exposed Ulcer of lower limb, unspecified Morbid obesity documented in this encounter Care Teams Toy Packer Relationship Specialty Start Date End Date Nick Nettles MD [address] [place] [address] PCP - General Internal Medicine 10/05/19 documented as of this encounter
--- OUTSIDE RECORDS SUMMARY | 2024-08-20 06:20 | XMS_ITS | Encounter Summary ---
Author Organization [facility] [place] [id number] Care Team Providers Care Director Plans Name Role Phone Nick Nettles MD Primary Care Provider [phone] Encounter Details Date Type Department Care Team (Late st Contact Info) Description 10/30/2021 8:40 PM EST Ancillary Procedure Radiology Library at [facility] [place] [address] Nick Nettles MD [address] [place], [place] [id number] Social History Tobacco Use Types Packs/Day Years [...] FILM LIBRARY STORAGE ONLY MR SPINE Routine 10/30/2021 8:37 PM EST documented in this encounter Results * Film Library- Storage Only MR Spine (10/30/2021 8:37 PM EST) Narrative [facility] - 10/30/2021 8:37 PM EST This exam is auto-finalizing. It's purpose is for storage only. Nick Nettles MD IM FILM LIBRARY ORD ERABLES [place], [place] documented in this encounter Visit Diagnoses Not on filedocumented in this encounter Care Teams Director Plans Relationship Specialty Start Date End Date Nick Nettles MD [address] [place] [address] PCP - General Internal Medicine 10/05/19 documented as of this encounter
--- OUTSIDE RECORDS SUMMARY | 2024-08-20 06:20 | XMS_ITS | Encounter Summary ---
[place] [address] Care Team Providers Care Day Light Relief Operator Name Role Phone Nick Nettles MD Primary Care Provider Reason for Referral * Consultation (Routine) - Closed Specialty Diagnoses / Procedures Referred By Contac t Referred To Contact Diagnoses HNP (herniated nucleus pulposus), lumbar Ashvin Dueñas MD [facility] [place] [address] Referral ID Status Reason Start Date Expiration Date V isits Requested Visits Authorized [id number] Closed Consult, Test & Treat 10/21/2022 04/19/2023 1 1 Reason for Visit * Reason Comments Back Pain * Consultation (Routine) - Closed Specialty Diagnoses / Procedures Referred By Contac t Referred To Contact [facility] Diagnoses Spinal stenosis of lumbar region, unspecified whether neurogenic claudication present Leg weakness, bilateral Spine - Spinal Stenosis w/ bilateral leg weakness / MRI 08/2022 and XR 07/2022 in [facility] / has done PT *RMD requesting Dr. Dueñas, confirm with patient if he is open to surgical opinion* Nick Nettles MD [address] [place] [address] [facility] [place] [address] Referral ID Status Reason Start Date Expiration Date V isits Requested Visits Authorized [id number] Closed Consult, Test & Treat PCP Updated and/or Approved 09/19/2022 09/19/2023 1 1 Encounter Details Date Type Department Care Team (Late st Contact Info) Description 10/21/2022 10:00 AM EST Office Visit [facility] [place] [address] Ashvin Dueñas MD [facility] [place] [address] HNP (herniated nucleus pulposus), lumbar Social History Tobacco Use Types Packs/Day Years [...] on file documented as of this encounter Last Filed Vital Signs Vital Sign Reading Time Taken Comments Blood Pressure - - Pulse - - Temperature - - Respiratory Rate - - Oxygen Saturation - - Inhaled Oxygen Concentration - - Weight 139.7 kg (308 lb) 10/21/2022 9:36 AM EST Height 177.8 cm (5' 10) 10/21/2022 9:36 AM EST Body Mass Index 44.19 10/21/2022 9:36 AM EST documented in this encounter Patient Instructions * Patient Instructions* Ashvin Dueñas MD - 10/21/2022 10:00 AM EST Follow-up with [facility] pain clinic to discuss injection options. documented in this encounter Progress Notes * Ashvin Dueñas MD - 10/21/2022 10:00 AM EST Chief complaint: Low back pain greater than left lateral thigh pain History of present illness: Mr. Crouch is a 77-year-old male whom I am seeing in consultation for Dr. Nettles in regards to his back pain as well as some left lateral thigh pain and left lower extremity weakness. The low back pain came on acutely about 2 months ago. He has had intermittent varying degrees of left lateral thigh pain and left lower extremity weakness, though he feels that that was better prior to the onset of the back pain. He denies any right lower extremity symptoms. He has chronic numbness in his legs related to diabetes and venous stasis ulcers. His pain tends to be worse with standing and walking, and improves if he lays down. He has been using a walker as of late and trying to avoid stairs. The pain does not bother him much at night. He denies constitutional symptoms or change in his bowel or bladder function. He has been treated with Celebrex, baclofen, and Tylenol with no benefit. He did about 6 weeks of physical therapy and continues to do home exercises, but this does not seem to be helping much. He uses a TENS unit with short-term benefit. He has not had prior spinal injections or prior spinal surgery. Past medical history: Morbid obesity, atrial fibrillation, sleep apnea, heart disease, venous insufficiency ulcers, heart failure, diabetes, history of pulmonary embolism and DVT Past surgical history: Bilateral total hip arthroplasties with multiple revisions Medications and allergies were reviewed and are in [facility]. He is on warfarin for his history of DVT and PE. Family history: Lung problems in his mother Social history: He is retired. He does not smoke or drink. Review of systems: All negative except musculoskeletal as above. Physical exam Patient is 5 foot 10, 300 pounds, with a BMI of 44 General: Patient is comfortable, no acute distress Back: The back is nontender to palpation. Neurological exam: He walks with a forward flexed gait using a walker. Motor exam reveals 4/5 strength of his bilateral EHLs with other motors 5/5. He has a normal sensory exam. Reflexes are trace atthe knees and ankles. Straight leg raise is negative bilaterally. He has no clonus. Hip exam: He has normal, painless range of motion of both hips. Imaging: AP and lateral x-rays of the lumbar spine from 07/11/2022 were reviewed. These show degenerative changes most pronounced at L1-L2 and L5-S1, with the latter possibly autofused. There is a grade 1 spondylolisthesis at L4-5. MRI of the lumbar spine from 08/16/2022 was reviewed. This is a low quality study. There is a grade 1 spondylolisthesis at L4-L5. The L5-S1 level appears autofused. At L1-L2, there is a large right paracentral disc herniation causing relatively severe central stenosis and right lateral recess stenosis. There is at least moderate central and lateral recess stenosis at L4-L5. Assessment/plan: Mr. Crouch is a 77-year-old male who presents with about 2 months of increased lowback pain in the setting of a right-sided L1-L2 disc herniation. Interestingly, his left lateral thigh pain and left lower extremity pain are contralateral to the herniated disc. He thinks that the left lateral thigh pain could be related to bursitis, which he has had in the past. We discussed treatment options for this that include continued medication, further physical therapy, and epidural steroid injection. He would like to go ahead with an injection, so I [facility] to [facility]. If he has problems with access there, he could call us and we could set up a referral for a pain evaluation here to discuss injection options. Given the fact that hehas back pain without radicular symptoms and an extensive list of comorbidities, I do not think surgery would be indicated. He has no interest in surgical treatment. Any further follow-up should be with a pain provider. documented in this encounter Plan of Treatment Scheduled Referrals Name Type Priority Associated Diagnoses Order Schedule Referral to Pain Management Outpatient Referral Routine HNP (herniated nucleus pulposus), lumbar Ordered: 10/21/2022 documented as of this encounter Visit Diagnoses Diagnosis HNP (herniated nucleus pulposus), lumbar Displacement of lumbar intervertebral disc without myelopathy documented in this encounter Care Teams Day Light Relief Operator Relationship Specialty Start Date End Date Nick Nettles MD [address] [place] [address] PCP - General Internal Medicine 10/05/19 documented as of this encounter
--- OUTSIDE RECORDS SUMMARY | 2024-08-20 06:20 | XMS_ITS | Encounter Summary ---
[place] [address] Care Team Providers Care Alteration Hand Name Role Phone Nick Nettles MD Primary Care Provider [phone] Reason for Referral * Diagnostic Test (Routine) - Closed Specialty Diagnoses / Procedures Referred By Carla soto Referred To Contact Cardiology Diagnoses Congestive heart failure, unspecified HF chronicity, unspecified heart failure type Procedures Mobile Nick Huffman MD [address] [place] [address] [facility] [place] [address] Referral ID Status Reason Start Date Expiration Date V isits Requested Visits Authorized [id number] Closed Specialty Service Requested 04/18/2023 04/17/2024 1 1 Reason for Visit * Diagnostic Test (Routine) - Closed Specialty Diagnoses / Procedures Referred By Contalberto soto Referred To Contact Cardiology Diagnoses Congestive heart failure, unspecified HF chronicity, unspecified heart failure type Procedures Mobile Nick Huffman MD [address] [place] [address] [facility] [place] [address] Referral ID Status Reason Start Date Expiration Date V isits Requested Visits Authorized [id number] Closed Specialty Service Requested 04/18/2023 04/17/2024 1 1 Encounter Details Date Type Department Care Team (Latest Contact Info) Description 04/18/2023 12:54 PM EDT - 04/18/2023 11:59 PM EDT Hospital Encounter [place] [address] Nick Nettles MD [address] [place] [address] Congestive heart failure, unspecified HF chronicity, unspecified heart failure type Discharge Disposition: Home Social History Tobacco Use Types Packs/Day Years [...] on file documented as of this encounter Medications at Time of Discharge Medication Sig Dispensed Refills Start Date End Date acetaminophen (Tylenol) 500 mg Tablet Take 2 tablets by mouth every 8 hours. 11/03/2020 bisacodyL (Dulcolax) [address] 1 suppository rectally daily as needed (constipation). 11/03/2020 miconazole (MICOTIN) 2 % Powder Apply topically 2 times daily. 11/03/2020 multivitamin with minerals (THERA-M) 9 mg iron-400 mcg Tablet Take 1 tablet by mouth daily. 11/04/2020 oxyCODONE (Roxicodone) 5 mg Tablet Take 1 tablet by mouth every 4 hours as needed for Pain (pain not relieved by Tylenol). 11/03/2020 insulin lispro (HumaLOG) 100 unit/mL Solution Inject [...] of > 240 in 2 hours. 11/03/2020 polyethylene glycoL (Miralax) 17 gram Powder in Packet Take 17 g by mouth 2 times daily. 11/03/2020 senna-docusate (Pericolace) 8.6-50 mg Tablet Take 2 tablets by mouth 2 times daily. 11/03/2020 empagliflozin (Jardiance) 25 mg Tablet Take 25 mg by mouth daily. warfarin (COUMADIN) 5 mg Tablet take 1 tablet by mouth once daily 0 05/04/2018 potassium Citrate (UROCIT) 10 mEq (1,080 mg) Tablet Sustained Release Take by mouth 2 times daily. 2 tablets twice daily furosemide (LASIX) 40 mg Tablet Take 20 mg by mouth daily. aspirin 81 mg Tablet, Delayed Release (E.C.) Take 1 tablet by mouth daily. 30 tablet 3 01/21/2017 meTOPROLOL succinate (TOPROL XL) 200 mg Tablet Sustained Release 24 hr Take 1 tablet by mouth daily. 30 tablet 12 01/21/2017 allopurinol (ZYLOPRIM) 300 mg Tablet Take 300 mg by mouth daily. lisinopril (PRINIVIL;ZESTRIL) 20 mg Tablet Take 1 tablet by mouth daily. 30 tablet 0 09/20/2014 atorvastatin (LIPITOR) 80 mg Tablet Take 80 mg by mouth daily. nitroGLYcerin (NITROSTAT) 0.4 mg Tablet, Sublingual Place 0.4 mg under the tongue every 5 minutes as needed for Chest pain. Reported on 02/17/2017 documented as of this encounter Plan of Treatment Not on file documented as of this encounter Procedures Procedure Name Priority Date/Time Associated Diagnosis Comments ECHO COMPLETE Routine 04/18/2023 1:06 PM EDT Congestive heart failure, unspecified HF chronicity, unspecified heart failure type documented in this encounter Results * ECHO COMPLETE (04/18/2023 1:06 PM EDT) EF 50 HEARTLAB SYSTEM Anatomical Region Laterality Modality Other 04/18/2023 10:3 5 AM EDT Narrative 04/18/2023 1:42 PM EDT ? Echocardiogram Report Name: LAZARO CROUCH JR. ?Study Date: 04/18/2023 10:35 AM ? [facility] 1945 [facility]: 178 [facility] ? Account: [id number] Age: 77 yrs ? Weight: 137 kg Gender: Male ?BSA: 2.5 m2 Ordering Physician: NICK NETTLES Referring Physician: NICK NETTLES Reason For Study: CHF Exam Location: [facility]. Interpretation Summary Technically limited study. Left ventricle is of normal size. Wall thickness is mildly increased. Left ventricular systolic function is mildly reduced. Left ventricular ejection fraction is estimated visually at 50%. Within the limited endocardial visualization of this study it appears that there is hypo- to akinesis of the basal to mid inferior and inferolateral wall segments. The right ventricle is of normal size. Right ventricular wall thickness is mildly increased. Right ventricular systolic function is mildly decreased. No significant valve disease. Compared to 02/27/2018, probably similar biventricular systolic function (however prior study used echo contrast and both studies were technically limited). Procedure Complete-[id number]. Suboptimal quality. Left Ventricle Left ventricle is of normal size. Wall thickness is mildly increased. Left ventricular systolic function is mildly reduced. Left ventricular ejection fraction is estimated visually at 50%. There are segmental wall motion abnormalities. Within the limited endocardial visualization of this study it appears that there is hypo- to akinesis of the basal to mid inferior and inferolateral wall segments. Right Ventricle The right ventricle is of normal size. Right ventricular wall thickness is mildly increased. Right ventricular systolic function is mildly decreased. Left Atrium The left atrium is not well visualized. Right Atrium The right atrium is probably normal in size. Aortic Valve The aortic valve is not well visualized. There is no aortic stenosis. There is no aortic regurgitation. Mitral Valve The mitral valve is structurally normal. There is trace mitral regurgitation. Tricuspid Valve The tricuspid valve is structurally normal. There is trace tricuspid regurgitation. Venous Inferior vena cava is normal in size. Inferior vena cava collapse greater than 50% with respiration. Pericardium/Pleural The pericardium appears normal. Hemodynamics Pulmonary artery hypertension could not be assessed due to inadequate tricuspid regurgitation jet. ? 2D Measurements ?IVSd: 1.3 cm ?LVIDd: 4.0 cm ?LVPWd: 1.2 cm ?LV mass(C)d: 177.5 grams ?LV mass(C)dI: 71.4 grams/m2 ?Ao root diam: 3.8 cm ?Ao root diam index: 1.5 Doppler LV V1 VTI: 17.4 cm LVOT max Velocity: 79.6 cm/sec Ao V2 VTI: 21.5 cm Ao Max: 98.2 cm/sec Ao valve max: 3.9 mmHg Ao valve mean: 2.4 mmHg Dimensionless index Aov: 0.81 I ?WMSI = 1.31 ? % Normal = 75 ?Segments ??Size X - Cannot ?? 1 - Normal ?? 2 - ? 3 - Akinetic 4 - ?1-2 ? small Interpret ? Hypokinetic ?Dyskinetic ?? 3-5 ? moderate 5 - ? 6-14 ?large Aneurysmal ?15-16 ?? diffuse Procedure Note Yoav Fulton MD - 04/18/2023 Echocardiogram Report Name: LAZARO CROUCH JR. Study Date:04/18/2023 10:35 AM Patient Location: : 1945 Height: 178 cm Account: [id number] Age: 77 yrs Weight: 137 kg Gender: Male BSA: 2.5 m2 Ordering Physician: NICK NETTLES Referring Physician: NICK NETTLES Reason For Study: CHF Exam Location: [facility]. Interpretation Summary Technically limited study. Left ventricle is of normal size. Wall thickness is mildly increased.Left ventricular systolic function is mildly reduced. Left ventricularejection fraction is estimated visually at 50%. Within the limited endocardial visualization of this study it appears that there is hypo- to akinesis ofthe basal to mid inferior and inferolateral wall segments. The right ventricle is of normal size. Right ventricular wall thickness ismildly increased. Right ventricular systolic function is mildly decreased. No significant valve disease. Compared to 02/27/2018, probably similar biventricular systolic function(however prior study used echo contrast and both studies were technicallylimited). Procedure Complete-[id number]. Suboptimal quality. Left Ventricle Left ventricle is of normal size. Wall thickness is mildly increased.Left ventricular systolic function is mildly reduced. Left ventricularejection fraction is estimated visually at 50%. There are segmental wall motion abnormalities. Within the limited endocardial visualization of this studyit appears that there is hypo- to akinesis of the basal to mid inferior and inferolateral wall segments. Right Ventricle The right ventricle is of normal size. Right ventricular wall thickness ismildly increased. Right ventricular systolic function is mildly decreased. Left Atrium The left atrium is not well visualized. Right Atrium The right atrium is probably normal in size. Aortic Valve The aortic valve is not well visualized. There is no aortic stenosis.There is no aortic regurgitation. Mitral Valve The mitral valve is structurally normal. There is trace mitralregurgitation. Tricuspid Valve The tricuspid valve is structurally normal. There is trace tricuspid regurgitation. Venous Inferior vena cava is normal in size. Inferior vena cava collapse greaterthan 50% with respiration. Pericardium/Pleural The pericardium appears normal. Hemodynamics Pulmonary artery hypertension could not be assessed due to inadequatetricuspid regurgitation jet. 2D Measurements IVSd: 1.3 cm LVIDd: 4.0 cm LVPWd: 1.2 cm LV mass(C)d: 177.5 grams LV mass(C)dI: 71.4 grams/m2 Ao root diam: 3.8 cm Ao root diam index: 1.5 Doppler LV V1 VTI: 17.4 cm LVOT max Velocity: 79.6 cm/sec Ao V2 VTI: 21.5 cm Ao Max: 98.2 cm/sec Ao valve max: 3.9 mmHg Ao valve mean: 2.4 mmHg Dimensionless index Aov: 0.81 I WMSI = 1.31 % Normal = 75 SegmentsSize X - Cannot 1 - Normal 2 - 3 - Akinetic 4 - 1-2small Interpret Hypokinetic Dyskinetic 3-5moderate 5 - 6-14large Aneurysmal 15-16diffuse Nick Nettles MD ECHO ORDERABLES documented in this encounter Visit Diagnoses Diagnosis Congestive heart failure, unspecified HF chronicity, unspecified heart failure type documented in this encounter Care Teams Alteration Hand Relationship Specialty Start Date End Date Nick Nettles MD [address] [place] [address] PCP - General Internal Medicine 10/05/19 documented as of this encounter
--- OUTSIDE RECORDS SUMMARY | 2024-08-20 06:20 | XMS_ITS | Encounter Summary ---
[place] [address] Care Team Providers Care Heat Treater Name Role Phone Nick Nettles MD Primary Care Provider [phone] Encounter Details Date Type Department Care Team (Late st Contact Info) Description 09/17/2022 Telephone [facility] [place] [id number] Nilda Lieberman Social History Tobacco Use Types Packs/Day Years [...] encounter Miscellaneous Notes * Telephone Encounter - Nilda Lieberman - 09/17/2022 10:42 AM EST Returning voicemail left on RESPIRATORY THERAPIST line. Explained that we have not received a referral yet. Once received we will review. documented in this encounter Plan of Treatment Not on file documented as of this encounter Visit Diagnoses Not on filedocumented in this encounter Care Teams Heat Treater Relationship Specialty Start Date End Date Nick Nettles MD [address] [place] [address] PCP - General Internal Medicine 10/05/19 documented as of this encounter
--- OUTSIDE RECORDS SUMMARY | 2024-08-20 06:20 | XMS_ITS | Encounter Summary ---
[place] [address] Care Team Providers Care Assessment Nurse Practitioner Name Role Phone Nick Nettles MD Primary Care Provider Reason for Visit * Surgical (Urgent) - Closed Specialty Diagnoses / Procedures Referred By Carla soto Referred To Contact Orthopaedics Diagnoses Pain in left hip Left Hip fx - Sp L NAIDA DOS 20+ years ago -no known injury Nick Nettles MD [address] [place] [address] [facility] [address] [place] [id number] Referral ID Status Reason Start Date Expiration Date Visits Re quested Visits Authorized [id number] Closed 10/30/2020 10/30/2021 6 6 Encounter Details Date Type Department Care Team (Late st Contact Info) Description 11/16/2020 10:30 AM EST Office [place] [address] Jeffrey Cuevas MD [address] [place] [address] [place] [address] Type 2 diabetes mellitus with other circulatory complication, without long-term current use of insulin; Class 3 severe obesity with serious comorbidity and body mass index (BMI) of 60.0 to 69.9 in adult, unspecified obesity type; 10/31/2020 Status post revision of Left total hip (Dr. Strange) Social History Tobacco Use Types Packs/Day Years [...] Pulse 82 11/16/2020 10:25 AM EST Temperature - - Respiratory Rate - - Oxygen Saturation - - Inhaled Oxygen Concentration - - Weight 166.9 kg (368 lb) 11/16/2020 10:25 AM EST Height 177.8 cm (5' 10) 11/16/2020 10:25 AM EST Body Mass Index 52.8 11/16/2020 10:25 AM EST documented in this encounter Progress Notes * Jeffrey Cuevas MD - 11/16/2020 10:30 AM EST Arthroplasty/Orthopaedic History: 1. Left NAIDA (sometime in early ) 2. Revision Left NAIDA 11/01/20 HPI: Jaime Crouch is a very pleasant 75 y.o. year-old male and is approximately 2 weeks status post revision left total hip arthroplasty. He was discharged to rehab facility subsequent to being at the hospital. He reports he has been doing well at that facility since that time. He states his pain is well controlled. He denies any concerns about the wound site. He states that nursing at the facility has been managing the wound with dressing changes. He has also continue to have wound care manage his distal lower extremity ulcers with Unna boot applications. He is working with physical therapy at the facility. He has no acute concerns or complaints today. He says he is likely to be discharging from the facility in approximately 1 week. ROS: Denies: fever, chills, night sweats, nausea, or vomiting BP 128/68 (BP Location (NBP): Left arm, Patient Position: Sitting, BP Cuff Sizes: Large Adult (32-43 cm)) Pulse 82 Ht 177.8 cm (5' 10) Wt (!) 166.9 kg (368 lb) BMI 52.80 kg/m?? Physical Exam: Well-appearing male in no acute distress. Alert and Oriented x 3 and answers all questions appropriately. The incision is healing well with sutures in place. No evidence of dehiscence or drainage. No surrounding erythema Hip Exam: Left Exam limited by patient habitus and mobility Patient able to stand from a seated position without difficulty or pain in left hip. Painless range of motion of left hip Unna boot in place (not removed at today's exam) X-RAYS: Multiple radiographic views were obtained and reviewed. X-rays show a well-placed prosthesis with no evidence of fracture, subsidence, loosening, or periprosthetic complication. Questionnaire Responses: [facility] Surgical Postop Visit 06/15/2018 PROMIS-10 General Health Fair PROMIS-10 Quality of Life Good PROMIS-10 Physical Health Fair PROMIS-10 Mental Health Very Good PROMIS-10 Social Activity Good PROMIS-10 Everyday Activities Moderately PROMIS-10 Pain 6 PROMIS-10 Fatigue Moderate PROMIS-10 Social Roles Good PROMIS-10 Anxious or Depressed Sometimes PROMIS PHYSICAL HEALTH SCORE 37.4 PROMIS MENTAL HEALTH SCORE 45.8 No flowsheet data found. No flowsheet data found. ASSESSMENT/PLAN: Mr. Crouch is a 75 y.o. year old male status post revision left total hip arthroplasty. He appears to be doing well overall. His x-rays demonstrate no acute complication. His wound appears to be healing well. We will plan to leave the sutures in for approximately 1 more week (11/21- 11/23). These can be removed at the rehab facility prior to the patient's discharge. The patient confirmed that the nursing staff there would be able to perform this. I contacted the rehab facilitywhere he is currently residing ([facility]), and they confirmed that they would be able to accommodate this. They may reach out to us if they have any questions. We will plan to see him back in approximately 3 months. If he has any questions, issues, concerns prior to that time he may contact theclinic and arrange to be seen sooner. He expressed the desire to have future follow-ups closer to his home. I think this would be a potentially reasonable option that he can establish at the time of his next follow-up here to have his future follow-ups done either remotely or to follow-up with a pro vider closer to his home. All questions were answered. Signed: Jeffrey Cuevas MD 11/16/2020 documented in this encounter Plan of Treatment Not on file documented as of this encounter Visit Diagnoses Diagnosis Type 2 diabetes mellitus with other circulatory complication, without long-term current use of insulin Class 3 severe obesity with serious comorbidity and body mass index (BMI) of 60.0 to 69.9 in adult, unspecified obesity type 10/31/2020 Status post revision of Left total hip (Dr. Strange) Hip joint replacement by other means documented in this encounter Care Teams Assessment Nurse Practitioner Relationship Specialty Start Date End Date Nick Nettles MD [address] [place] [address] PCP - General Internal Medicine 10/05/19 documented as of this encounter
--- OUTSIDE RECORDS SUMMARY | 2024-08-20 06:20 | XMS_ITS | Encounter Summary ---
[place] [address] Care Team Providers Care Collection Systems Worker Name Role Phone Nick Nettles MD Primary Care Provider [phone] Encounter Details Date Type Department Care Team (Late st Contact Info) Description 08/14/2022 Telephone [place] [address] Ban Michaud RN Social History Tobacco Use Types Packs/Day Years [...] encounter Miscellaneous Notes * Telephone Encounter - Ban Michaud RN - 08/14/2022 9:34 AM ESTSummary: Patient call Patient called looking for a second opinion on his wound care. Patient is currently seeing wound care in [facility]. There is an active referral in his chart to wound care at [facility]. I let the patient know that we would need to see him and assess his wound before we could make any recommendations to him. Patient is not currently an active wound care patient at [facility]. He would need a visit at the [facility] wound center to establish care. Patient verbally expressed understanding of this and asked that I reach out to the schedulers to have them call him so that he could schedule an appointment. Message sent to schedulers asking that they call the patient to schedule an appointment for him. documented in this encounter Plan of Treatment Not on file documented as of this encounter Visit Diagnoses Not on filedocumented in this encounter Care Teams Collection Systems Worker Relationship Specialty Start Date End Date Nick Nettles MD [address] [place] [address] PCP - General Internal Medicine 10/05/19 documented as of this encounter
--- OUTSIDE RECORDS SUMMARY | 2024-08-20 06:20 | XMS_ITS | Encounter Summary ---
Author Organization [facility] [place] [address] Care Team Providers Care Publishing Agent Name Role Phone Nick Nettles MD Primary Care Provider Encounter Details Date Type Department Care Team (Late st Contact Info) Description 10/30/2021 Ancillary Procedure Radiology Library at [facility] [place] [address] Nick Nettles MD [address] [place], [place] [address] Social History Tobacco Use Types Packs/Day Years [...] Associated Diagnosis Comments FILM LIBRARY STORAGE ONLY CT SPINE Routine 10/30/2021 12:00 AM EST documented in this encounter Results * Film Library- Storage Only CT Spine (10/30/2021 12:00 AM EST) Narrative [facility] - 09/16/2022 8:26 PM EST This exam is auto-finalizing. It's purpose is for storage only. Nick Nettles MD IM FILM LIBRARY ORD ERABLES [employer], [place] documented in this encounter Visit Diagnoses Not on filedocumented in this encounter Care Teams Publishing Agent Relationship Specialty Start Date End Date Nick Nettles MD [address] [place] [address] PCP - General Internal Medicine 10/05/19 documented as of this encounter
--- OUTSIDE RECORDS SUMMARY | 2024-08-20 06:20 | XMS_ITS | Encounter Summary ---
[place] [address] Care Team Providers Care Finisher Screwdown Name Role Phone Nick Nettles MD Primary Care Provider [phone] Reason for Referral * Consultation (Routine) - Closed Specialty Diagnoses / Procedures Referred By Carla soto Referred To Contact Pain and Spine Center Diagnoses Spinal stenosis of lumbar region, unspecified whether neurogenic claudication present Leg weakness, bilateral Spine - Spinal Stenosis w/ bilateral leg weakness / MRI 08/2022 and XR 07/2022 in [facility] / has done PT *RMD requesting Dr. Dueñas, confirm with patient if he is open to surgical opinion* Nick Nettles MD [address] [place] [address] [facility] [place] [address] Referral ID Status Reason Start Date Expiration Date V isits Requested Visits Authorized [id number] Closed Consult, Test & Treat PCP Updated and/or Approved 09/19/2022 09/19/2023 1 1 Encounter Details Date Type Department Care Team (Latest Contact Info) Description 09/19/2022 Transcribe Orders [facility] Incoming Referrals [phone] Nick Nettles MD [address] [place] [address] Spinal stenosis of lumbar region, unspecified whether neurogenic claudication present; Leg weakness, bilateral Social History Tobacco Use Types Packs/Day Years [...] Associated Diagnoses Orde r Schedule Referral to Spine Center Outpatient Referral Routine Spinal stenosis of lumbar region, unspecified whether neurogenic claudication present Leg weakness, bilateral Ordered: 09/19/2022 documented as of this encounter Visit Diagnoses Diagnosis Spinal stenosis of lumbar region, unspecified whether neurogenic claudication present Leg weakness, bilateral Other musculoskeletal symptoms referable to limbs documented in this encounter Care Teams Finisher Screwdown Relationship Specialty Start Date End Date Nick Nettles MD [address] [place] [address] PCP - General Internal Medicine 10/05/19 documented as of this encounter
--- OUTSIDE RECORDS SUMMARY | 2024-08-20 06:20 | XMS_ITS | Encounter Summary ---
[place] [address] Care Team Providers Care Distribution Center Administrator Name Role Phone Nick Nettles MD Primary Care Provider [phone] Encounter Details Date Type Department Care Team (Latest Contact Info) Description 10/21/2022 Travel Social History Tobacco Use Types Packs/Day Years [...] on filedocumented in this encounter Care Teams Distribution Center Administrator Relationship Specialty Start Date End Date Nick Nettles MD [address] [place] [address] PCP - General Internal Medicine 10/05/19 documented as of this encounter
--- OUTSIDE RECORDS SUMMARY | 2024-08-20 06:20 | XMS_ITS | Clinical Summary ---
Author Organization [facility] Address [address] [place] [address] Care Team Providers Care Shorts Sifter Name Role Phone Unknown, Provider Primary Care Provider Unava ilable Social History Tobacco Use Types Packs/Day Years Used Date Smoking Tobacco: Never Assessed Sex and Gender Information Value Date Recorded Sex Assigned at Not on file Legal Sex Male 1:44 EST Gender Identity Not on file Sexual Orientation Not on file Plan of Treatment Health Maintenance Due Date Last Done Comments Hepatitis C Screen 1945 Fall Risk Screening 2012 RSV Immunization ( o r 60+ Years) (1 - 1-dose 75+ series) 2022 COVID-19 Vaccine (2023- season) 2024 Insurance [facility] MEDIC[facility] Care Teams Shorts Sifter Relationship Specialty Start Date End Date Unknown, Provider, PCP - General 08/08/22
--- OUTSIDE RECORDS SUMMARY | 2024-08-20 06:21 | XMS_ITS | Encounter Summary ---
Author Organization [facility] Address [facility] [place] [address] Care Team Providers [facility] Attendant Name Role Phone Nick Nettles MD Primary Care Provider [phone] Reason for Visit * Reason Comments Right Hip Pain * Auth/Cert Specialty Diagnoses / Procedures Referred By Carla soto Referred To Contact Diagnoses Failed total hip arthroplasty, initial encounter Class 3 severe obesity due to excess calories with serious comorbidity and body mass index (BMI) of 60.0 to 69.9 in adult Referral ID Status Reason Start Date Expiration Date Visits Re quested Visits Authorized [id number] 1 1 Encounter Details Date Type Department Care Team (Latest Contact Info) Description 10/31/2020 4:11 PM EST - 11/03/2020 3:20 PM [facility] Hospital Encounter [address] [place] [address] Geovani Strange MD [facility] [place] [address] Class 3 severe obesity due to excess calories with serious comorbidity and body mass index (BMI) of 60.0 to 69.9 in adult; Chronic venous insufficiency; Venous stasis ulcer of left lower extremity; Morbid obesity Discharge Disposition: Swing Bed Social History Tobacco Use Types Packs/Day Years [...] Sign Reading Time Taken Comments Blood Pressure 142/96 11/03/2020 7:35 AM EST RN Aware Pulse 93 11/03/2020 4:51 AM EST Temperature 36.6 ??C (97.9 ??F) 11/03/2020 7:35 AM ES T Respiratory Rate 18 11/03/2020 7:35 AM EST Oxygen Saturation 94% 11/03/2020 7:35 AM EST Inhaled Oxygen Concentration - - Weight 169.8 kg (374 lb 5.5 oz) 021 11:22 AM EST Height 177.8 cm (5' 10) 11/01/2020 11: 22 AM EST Body Mass Index 53.71 11/01/2020 11:22 AM EST documented in this encounter Discharge Summaries * Blank Bowers, TAYLER - 11/01/2020 4:16 PM EST Images from the original note were not included. Discharge Summary Patient Name: Jaime Crouch Patient Age: 75 y.o. Language: Barbadian Race: White Ethnicity: Not nor Admit date: 10/31/2020 Discharge date and time: 11/03/2020 Attending Physician: Geovani Strange MD Discharge Physician: Geovani Strange MD Follow-up Recommendations for Providers: 1. Will continue to see Wound Care at [facility] for ongoing management of LLE wound/unna boot when discharged from rehab. 2. Will need to f/u with Vascular at least 4 weeks after hip surgery. Patient will call and schedule this appointment. See discharge instructions for additional details. Future Appointments Date Time Provider Department Center 11/08/2020 8:30 AM Yaneth Sage RVT [facility] VAS LAB JOHNNA BROKOS 11/08/2020 9:00 AM Delroy More MD [facility] [place] [facility] 11/16/2020 9:30 AM [facility] DX ROOM 3 Xray [facility] Rad 11/16/2020 10:30 AM Jeffrey Cuevas MD [facility] [place] [facility]C [facility] [place] Provider Contact Information: Geovani Strange MD Orthopedics: [phone] After hours and weekends, call [facility] Building Admin, , and have the Orthopedic resident paged. Discharge Diagnoses (Hospital Problems) and Secondary Diagnoses (Chronic Problems): Active Hospital Problems Diagnosis ??? 10/31/2020 Status post revision of Left total hip (Dr. Strange) ??? Failed total hip arthroplasty, initial encounter ??? Venous stasis ulcer of left lower extremity Resolved Hospital Problems No resolved problems to display. Active Non-Hospital Problems Diagnosis ??? Relative polycythemia ??? Class 3 severe obesity due to excess calories with serious comorbidity and body mass index (BMI) of 60.0 to 69.9 in adult ??? Type 2 diabetes mellitus with circulatory disorder, without long-term current use of insulin ??? Pulmonary embolism ??? (HFpEF) heart failure with preserved ejection fraction ??? Chronic venous insufficiency ??? Cholangitis ??? Morbid obesity ??? CAD ??? Nonsustained ventricular tachycardia ??? Hypertension ??? Suspected cholecystitis vs cholangitis ??? Atrial fibrillation ??? TOM on CPAP ??? Phimosis ??? Nephrolithiasis Operations/Major Procedures: 11/01/2020 Surgeon(s) and Role: * Geovani Strange MD - Primary * Jeffrey Cuevas MD - Fellow * Delroy Brooks PA - Physician Mash Filter Operator Procedure(s): LEFT TOTAL HIP REVISION ARTHROPLASTY, COMPLETE MODIFIER PINNACLE ACETABULUM DEPUY ?? Intraoperative Findings: Hip filled with black metal stained fluid and debris. Not enough fluid forcell count. Fluid was sent for culture. Significant osteolysis of the trochanter required extensivedebridement with metal stained debris. The ceramic head was shattered in multiple pieces and removed in piecemeal. There was catastrophic wear of the polyliner with wear through. My presumption is the ceramic head was articulating with the metal socket and fractured. As the socket was so old we didnot have liners available. The socket was removed and a new socket was placed with a ceramic liner.An Oxinium head was placed on a well fixed femoral stem to try to minimize wear of the implants from potential microscopic ceramic debris in the hip joint. Hip was stable at the end of the case to 90o flexion, 45o internal rotation, 10o adduction. This patient has morbid obesity with a BMI >40. This made the operation significantly more difficult and increased the duration of the operation. Specifically, it was much more difficult to obtain exposure and to perform the brandon parts of the operation because of this patient???s obesity. Patient positioning was extraordinarily challenging due to the patient's size. We had to use the toboggan to support his large pannus. Upon lifting his pannus there was a pungent aroma encounter with severe skin breakdown and open broken bleeding skin. The smell was significant from this area and will need wound care intervention. History of Presentation: Jaime Crouch is a 75 y.o. male with a history of a left total hip replacement. He is a medically complex patient with a BMI greater than 50, chronic anticoagulation for A. fib, venous stasis openulcers on his left lower extremity which have had treatment with Unna boots, and diabetes with an A1c greater than 7.5 who presents with grinding in his left hip replacement. Radiographs show that hehad catastrophic failure of the ceramic head with head fracture. I was contacted initially by Scott Dominguez in [facility] who assumed care of this patient due to the complexity. Patient was seen in our emergency department and subsequently admitted to the hospital. Despite his medical complexityis at high risk of any surgical intervention it was felt that the only remaining option was surgical. A detailed conversation regarding the risks and benefits of hip revision surgery was had with thepatient. The risks discussed included but were not limited to: bleeding (which may or may not require transfusion), infection, damage to nerves or blood vessels, deep venous thrombosis, pulmonary embolus, prosthetic failure, loosening, prosthetic fracture, femur or pelvic fracture, dislocation, leg-length inequality, persistent pain, need for future surgery, medical complications (including cardiac, respiratory and neurologic complications), anaesthetic complications, and . Subsequent to this conversation, all of the patient???s questions were answered in great detail and informed consent was obtained for a left total hip arthroplasty revision. He received preoperative medical clearance and was felt optimized for surgery. Hospital Course: The patient was admitted via Same Day Surgery for the above operation. On HD#1, Hospital Medicine was consulted for pre-op evaluation. DVT prophylaxis was: Coumadin-on chronically for afib, managed by his PCP. Patient began rehab on POD#1 for weight bearing as tolerated of left leg and reinforcement of the ENHANCED NAIDA Precautions, wearing an abdominal binder to keep pannus off skin.. On POD#1 patient was voiding spontaneously without difficulty. Prevena VAC dressing in place left hip prior to discharge. To remain in place a total of 7 days after surgery then a silver Mepilex dressing will beapplied every 7 days until f/u Ortho appt on 11/16/2020. Patient did have a bowel movement prior to discharge and was passing flatus and was taking a diet without difficulty. By POD#3 the patient was medically stable and was cleared for safe discharge to rehab per PT. Of Note: On POD#2, the patient was seen by Wound Care for excoriation under pannus on left side. Interdry applied. Micotin powder ordered. Open circular wound outer lower left calf. Lower legs mid calf down, brown discoloration of chronic venous stasis. Support stocking right lower leg. Patient had an out-patient appointment with Vascular on 3. Due to difficulty mobilizing, Vascular saw the patient. The patient will follow-up with them after left hip healed - at least 4 weeks. Patient will call andmake this appointment. On POD#3, KELLI results from [facility] from 05/2020 obtained. Wound Care applied unna boot to left lower leg. Hospital Medicine Note 11/03/2020: Assessment: Jaime Crouch is a 75 y.o. male with PMHx significant for type 2 diabetes mellitus managed with oral Jardiance, ASCVD, atrial fibrillation on warfarin, gout, and TOM on home BiPAP. Medicine is consulted for pre-operative risk stratification and medical optimization prior to procedure. The patient tolerated the procedure well. He is back on his warfarin. He is back on his home lasix and appears euvolemic. His blood sugars are under control in the hospice and he has an acceptable home A1c. We would recommend restarting his home lisinopril today. On discharge his home diabetes medscan be restarted. Recommendations: Summary - Can restart home lisinopril. - Can restart home DM meds on discharge. Case was discussed with medicine consult attending, Dr. Castro ?? Consult service will continue to follow patient. x Recommendations are above. We will sign off at this time, please page if further consultation required. ??Benjamín Myles III, MD Internal Medicine, PGY3 FORT[place]ATO Pager # [phone] Attestation signed by Amber Castro MD at 11/03/2020 9:[address] Myles's note for full details of the patient history of presentation and data. ??I have discussed, reviewed and agree with the documented History, Physical findings, Assessment and Plan of care. I have examined the patient myself and personally reviewed all studies. ?? # HTN: Okay to restart lisinopril at home dose # DM II: Restart Jardiance upon d/c # Afib: on coumadin with goal INR: 2-3 Hospital Medicine will sign off. Amber Castro MD Hospital Medicine Vascular Surgery Consult 11/02/2020 Vascular Lab Studies: ABIs 10/17/2015: Findings: Right ?Pressure (mm Hg) ?? EKLLI ??Waveform ? Brachial Artery ?127 ? Dorsalis Pedis (Ankle) Artery ?142 ? 1.01 ??Triphasic ? Posterior Tibial (Ankle) Artery ??151 ? 1.07 ??Bi-Triphasic ?? Left ? Pressure (mm Hg) ?? KELLI ??Waveform ?? Brachial Artery ?141 ? Dorsalis Pedis (Ankle) Artery ?152 ? 1.08 ??Triphasic ?? Posterior Tibial (Ankle) Artery ??143 ? 1.01 ??Triphasic ?? Interpretation: RIGHT: No significant lower extremity arterial occlusive disease identifiable at rest. Normal ankle/brachial pressure ratios and ankle Doppler waveforms. LEFT: No significant lower extremity arterial occlusive disease identifiable at rest. Normal ankle/brachial pressure ratios and ankle Doppler waveforms. ?? Assessment/Recommendations: Jaime Crouch is a 75 y.o. male admitted with revision of his left hip replacement with orthopedics surgery who has a longstanding history of venous stasis disease and ulceration which has primarily been managed by wound care at [facility]. The patient has never seen a vascular surgeon, but was referred to see Dr. More as an outpatient next week with ABIs to assess for an arterial component to his non healing wounds. On exam, the patient has palpable pedal pulses, and so is unlikely to have compromised arterial flow to the degree that would cause poor wound healing. The patient does not believe he has ever had venous insufficiency studies, however, would likely benefit from this to determine whether he would be a candidate for vein ablation. As the patient's wounds on the right are healed and are significantly improved on the left, and do not appear to be infected, there is no urgency to venous insufficiency testing or vascular intervention. In speaking to the patient, he would prefer to wait until he has recovered from his orthopedic procedure before further working up his venous disease. The patient stated that he would like to call the clinic when he is ready to schedule an appointment, and we discussed with him that he should wait at least four weeks before calling to give him adequate time to fully recover from his current hospitalization. For wound care, we recommend continuing with the Unna boot on the left while the wound remains open. We discussed compression stockings with the patient for the right leg, and recommend knee high stockings 20-30 mmHg if the patient is able to tolerate that strength. He can wear compression stockings bilaterally once the wound on his left leg is healed. The patient should continue seeing wound care at [facility] once discharged, as he is. Elvira Daigle MD Vascular Surgery Attestation signed by Amber Ty MD at 11/03/2020 7:17 AM Pt seen and examined with vascular resident and I agree with findings. His physical exam in consistent with venous insufficiency. No evidence of arterial insufficiency. We will continue work-up as an outpatient once he has recovered from his recent surgery. Vital Signs at Discharge: Weight: Wt Readings from Last 1 Encounters: 11/01/20 (!) 169.8 kg (374 lb 5.5 oz) Height: Ht Readings from Last 1 Encounters: 11/01/20 177.8 cm (5' 10) HC: HC Readings from Last 1 Encounters: No data found for HC BMI: Body mass index is 53.71 kg/m??. Last value Range last 24 hrs Temperature Temp: 36.6 ??C (97.9 ??F) Temp: [36.4 ??C (97.5 ??F)-37 ??C (98.6 ??F)] Heart Rate Heart Rate: 93 Heart Rate: [93-101] Blood Pressure BP: (!) 142/96(RN Aware) BP: (111-149)/(81-96) Respiratory Rate Resp: 18 Resp: [18-20] SpO2 SpO2: 94 % SpO2: [93 %-95 %] Art BP BP (Arterial Line): 132/80 BP (Arterial Line): -- Functional and Cognitive Status: Patient mobilizing with a walker and two assistance, cognitively intact at baseline mental status at time of discharge. Important Lab Data: Last 3 wbc, hgb, hct plt Recent Labs 11/03/20 0317 11/02/20 0346 11/01/20 0352 WBC 11.3* 12.5* 8.1 HGB 14.7 15.0 17.5* HCT 47.1 49.1* 54.1* PLATELET 225 252 251 Last 3 Lytes Recent Labs 11/03/20 0317 11/02/20 0346 11/01/20 0352 NA 141 141 141 K 4.5 4.4 4.0 CL 107 106 106 CO2 23 24 25 BUN 23* 24* 19 CREATININE 0.78* 0.90 0.79* Last 3 Coags Recent Labs 11/03/20 0317 11/02/20 0346 11/01/20 1129 10/31/20 2252 10/31/20 1806 PT 21.9* 20.5* 20.8* 24.1* 24.1* INR 1.9 1.8 1.8 2.1 2.1 PTT -- -- 42* 45* 36 Recent Labs 11/01/20 0352 HA1C 7.6* Recent Labs 10/31/20 2252 MAGNESIUM 0.83 10/31/2020 COVID 19 NEG Lab Results Component Value Date LABANAE No anaerobic organisms isolated to date 11/01/2020 JOINTCX 11/01/2020 No growth to date. Incubation time extended to 14 days. GRAMSTAIN 11/01/2020 Moderate Neutrophils seen No microorganisms seen. No results for input(s): URINECULTURE in the last 720 hours. No results for input(s): BLOODCX in the last 720 hours. Studies: Film Library- Storage Only DX Hip Result Date: 10/30/2020 This exam is auto-finalizing. It's purpose is for storage only. SCAN DOC: DIAGNOSTIC RADIOLOGY Result Date: 10/27/2020 Ordered by an unspecified provider. XRay Pelvis (Generic) Result Date: 11/01/2020 EXAMINATION: XR PELVIS (GENERIC) CLINICAL HISTORY: s/p revision Left NAIDA. Thanks! TECHNIQUE: 1 views of the pelvis COMPARISON: Preoperative study from 10/31/2020 FINDINGS: Post revision of LEFT total hip arthroplasty since the previous study. Limited study. No gross radiographic evidence of complication. Stable appearance of RIGHT total hip arthroplasty. Post revision of LEFT total hip arthroplasty since the previous study. Limited study. No gross radiographic evidence of complication. Stable appearance of RIGHT total hip arthroplasty. Thank you for letting us participate in the care of this patient. For questions regarding this report, please contact the number below. Pelvis (Generic) Result Date: 10/31/2020 EXAMINATION: XR PELVIS (GENERIC), XR FEMUR 2 VIEWS LEFT (GENERIC) CLINICAL HISTORY: artifical L hipwith fx on OSH films TECHNIQUE: Bilateral oblique views of the pelvis AP and lateral views of the left femur COMPARISON: Pelvis and left hip radiographs from outside institution 10/27/2020 CT abdomen/pelvis 08/29/2015 FINDINGS: Status post bilateral total hip arthroplasties. Unchanged superior lateral eccentric position of the RIGHT femoral head component with respect to the acetabular cup, unchanged from 08/29/2015. Unchanged lucency within the lateral intertrochanteric region, consistent with stress shielding. No evidence of periprosthetic fracture at the right hip. There is abnormal alignment of the femoral head component of the LEFT hip arthroplasty with respect to the acetabular cup. Though the femoral head component was eccentrically positioned on the prior study the current orientation appears different. There are new high density/metallic densities projecting along the inferior margin of the acetabular cup and adjacent to the superior lateral greater trochanter component of thearthroplasty. No periprosthetic fracture surrounding the femoral stem component. Similar appearanceof proliferative bone formation along the inferior margin of the acetabulum and superior to the greater trochanter when compared to prior CT. No fracture the distal femur. No knee joint effusion or li pohemarthrosis. 1. Bilateral total hip arthroplasties 2. Interval change in alignment of the LEFT femoral arthroplasty with respect to the acetabular cup, with new high density fragments, consistent with hardware failure such as fragmentation of a prosthesis. 3. No periprosthetic fracture surrounding the femoral component stem 4. Unchanged alignment of the RIGHT hip arthroplasty. Preliminary report signed by: Doug Valiente at 10/31/2020 6:38 PM I have personally reviewed the image(s) and the resident's interpretation and agree with the findings, Seymour Galaviz MD at 10/31/2020 6:56 PM Thank you for lettingus participate in the care of this patient. For questions regarding this report, please contact thenumber below. DOC: TELEMETRY STRIPS Result Date: 11/01/2020 Ordered by an unspecified provider. XRay Femur 2 views Left (Generic) Result Date: 10/31/2020 EXAMINATION: XR PELVIS (GENERIC), XR FEMUR 2 VIEWS LEFT (GENERIC) CLINICAL HISTORY: artifical L hipwith fx on OSH films TECHNIQUE: Bilateral oblique views of the pelvis AP and lateral views of the left femur COMPARISON: Pelvis and left hip radiographs from outside institution 10/27/2020 CT abdomen/pelvis 08/29/2015 FINDINGS: Status post bilateral total hip arthroplasties. Unchanged superior lateral eccentric position of the RIGHT femoral head component with respect to the acetabular cup, unchanged from 08/29/2015. Unchanged lucency within the lateral intertrochanteric region, consistent with stress shielding. No evidence of periprosthetic fracture at the right hip. There is abnormal alignment of the femoral head component of the LEFT hip arthroplasty with respect to the acetabular cup. Though the femoral head component was eccentrically positioned on the prior study the current orientation appears different. There are new high density/metallic densities projecting along the inferior margin of the acetabular cup and adjacent to the superior lateral greater trochanter component of thearthroplasty. No periprosthetic fracture surrounding the femoral stem component. Similar appearanceof proliferative bone formation along the inferior margin of the acetabulum and superior to the greater trochanter when compared to prior CT. No fracture the distal femur. No knee joint effusion or li pohemarthrosis. 1. Bilateral total hip arthroplasties 2. Interval change in alignment of the LEFT femoral arthroplasty with respect to the acetabular cup, with new high density fragments, consistent with hardware failure such as fragmentation of a prosthesis. 3. No periprosthetic fracture surrounding the femoral component stem 4. Unchanged alignment of the RIGHT hip arthroplasty. Preliminary report signed by: Doug Valiente at 10/31/2020 6:38 PM I have personally reviewed the image(s) and the resident's interpretation and agree with the findings, Seymour Galaviz MD at 10/31/2020 6:56 PM Thank you for lettingus participate in the care of this patient. For questions regarding this report, please contact thenumber below. ay Chest One View Result Date: 10/31/2020 EXAMINATION: XR CHEST ONE VIEW CLINICAL HISTORY: Preoperative. Left hip arthroplasty fracture TECHNIQUE: 1 view of the chest COMPARISON: Chest radiograph 09/01/2015 and 08/29/2015 FINDINGS: Evaluation limited by patient body habitus and low radiographic penetration. No focal consolidation. The pulmo nary vascular markings are normal. No pneumothorax. No pleural effusions. Unchanged size of the cardiomediastinal silhouette and bilateral dipak with mild cardiomegaly. No acute osseous findings within the limitations of portable chest radiography. No acute cardiopulmonary process Thank you for letting us participate in the care of this patient. For questions regarding this report, please contact the number below. Pending Studies and Lab Data at Discharge: Order Name Source Comment Collection Info Order Time SPECIMEN TO PATHOLOGY Scar and synovium rule out infection OR 12 [id number] Left Femoral Head component fracture scar and synovium rule out infection excision 11/01/2020 2:35 PM Time specimen removed from patient: 2:34 PM Number of tissue samples (in container) 1 Transfusions: No Discharge Conditions/Prognosis: Stable, awake, and alert. Mobilizing as noted above, pain controlled on oral medications. Discharge to: Rehab [facility] [address] [place] [id number] Updated Allergies/ADRs: Allergies Allergen Reactions ??? Metformin Immunizations Given this Hospitalization: There is no immunization history on file for this patient. Discharge Medications: Your Medications New Medications Dose Details bisacodyL 10 mg Supp Commonly known as: Dulcolax Place 1 suppository rectally daily as needed (constipation). 10 mg Refills: 0 cephALEXin 500 mg Cap Commonly known as: Keflex Take 1 capsule by mouth every 6 hours for 25 doses. 500 mg Refills: 0 insulin lispro 100 unit/mL Soln Commonly known as: HumaLOG Inject 1-5 Units subcutaneously every 4 hours. CORRECTION BOLUS [1-4 Units] Sensitive Sliding Scale: Correction factor 40 (1 unit of insulin is expected to drop the glucose 40 mg/dL) BG 160 - 200Give 1 unit BG 201 - 240 Give 2 units BG 241 - 280 Give 3 units BG greater than 280, give 4 units and recheck BG in 2 hours. - If recheck BG is LESS than 280, give no insulin and resume schedule - Ifrecheck BG is GREATER than 280, give 4 units and repeat BG in 2 hours (no more than 3 times) & call for new insulin orders. DO NOT hold if NPO, unless specifically told to do so. Per Blood Glucose Monitoring Policy, re-check a BG of > 240 in 2 hours. 1-5 Units Quantity: Refills: 0 miconazole 2 % Powd Commonly known as: MICOTIN Apply topically 2 times daily. Refills: 0 multivitamin with minerals 9 mg iron-400 mcg Tab Commonly known as: THERA-M Take 1 tablet by mouth daily. Start taking on: November 04, 2020 1 tablet Quantity: Refills: 0 oxyCODONE 5 mg Tab Commonly known as: Roxicodone Take 1 tablet by mouth every 4 hours as needed for Pain (pain not relieved by Tylenol). 5 mg Quantity: Refills: 0 polyethylene glycoL 17 gram Pwpk Commonly known as: Miralax Take 17 g by mouth 2 times daily. 17 g Refills: 0 senna-docusate 8.6-50 mg Tab Commonly known as: Pericolace Take 2 tablets by mouth 2 times daily. 2 tablet Refills: 0 Continued medications with new dosing Dose Details acetaminophen 500 mg Tab Commonly known as: Tylenol Take 2 tablets by mouth every 8 hours. What changed: ?? when to take this ?? reasons to take this 1,000 mg Refills: 0 * warfarin 5 mg Tab Commonly known as: Coumadin take 1 tablet by mouth once daily What changed: Another medication with the same name was added. Make sure you understand how and when to take each. Refills: 0 * warfarin 7.5 mg Tab Commonly known as: Coumadin Take 1 tablet by mouth once for 1 dose. Inc dose X 1 day on 11/03/2020, then daily dose based on INR What changed: You were already taking a medication with the same name, and this prescription was added. Make sure you understand how and when to take each. 7.5 mg Refills: 0 * This list has 2 medication(s) that are the same as other medications prescribed for you. Read thedirections carefully, and ask your doctor or other care provider to review them with you. Continued medications, unchanged Dose Details allopurinoL 300 mg Tab Commonly known as: Zyloprim Take 300 mg by mouth daily. 300 mg Refills: 0 aspirin EC 81 mg Tbec Take 1 tablet by mouth daily. 81 mg Quantity: 30 tablet Refills: 3 atorvastatin 80 mg Tab Commonly known as: Lipitor Take 80 mg by mouth daily. 80 mg Refills: 0 furosemide 40 mg Tab Commonly known as: Lasix Take 40 mg by mouth 2 times daily. 40 mg Refills: 0 Jardiance 25 mg Tab Take 25 mg by mouth daily. Generic drug: empagliflozin 25 mg Refills: 0 lisinopriL 20 mg Tab Commonly known as: Prinivil;Zestril Take 1 tablet by mouth daily. 20 mg Quantity: 30 tablet Refills: 0 metoprolol succinate XL 200 mg Tablet sr Commonly known as: Toprol XL Take 1 tablet by mouth daily. 200 mg Quantity: 30 tablet Refills: 12 nitroGLYcerin 0.4 mg Subl Commonly known as: Nitrostat Place 0.4 mg under the tongue every 5 minutes as needed for Chest pain. Reported on 02/17/2017 0.4 mg Refills: 0 potassium citrate SR 10 mEq (1,080 mg) Tbsr Commonly known as: Urocit Take by mouth 2 times daily. 2 tablets twice daily Refills: 0 STOPPED Medications mupirocin 2 % Oint Commonly known as: BACTROBAN Smoking Status at Discharge: Social History Tobacco Use Smoking Status Former Smoker ??? Quit date: 01/21/1967 ??? Years since quittin.8 Smokeless Tobacco Never Used Instructions for Rehab Providers or PCP: 1. Anticoagulation: COUMADIN. INR Goal: 2-3 Next INR Due: 12/02/2020 a. PT/INR to dose Coumadin every Mon and Thurs or per your routine. Coumadin dose today, 11/03/20 at 5pm = 7.5 mg. Will continue Coumadin indefinitely as before surgery. Is managed by his PCP. b. If the INR level is ever above 3.5 patient should not participate in aggressive Physical therapyexercises - can mobilize/ambulate. This will decrease the possibility of more bleeding into the joint. Once the INR is less than 3.5 Physical therapy can be resumed. c. When the patient is discharged from rehab to home please FAX a copy of the Coumadin/INR record to patient's PCP, Dr. Nick Nettles - [phone]. Office phone: [phone]. 2. Activity: Enhanced: Full weight bearing as tolerated using walker/crutches at all times for balance and protection. Reinforce total hip precautions with elevated seating, raised toilet seat. Patient should not flex the operative leg more than 90 degrees, should not internally rotate more than 10degrees and should not cross legs. Use a pillow or the Abduction pillow between their legs to remind patient not to cross their legs. Abdominal Binder to keep pannus off skin. 3. Diet: Carb Control no added salt, but increase fluids and fiber while on narcotic pain meds. 4. Mariano/Sutures: Suture/staple removal 3 weeks post-op (at f/u Ortho appt on 11/16/2020). 5. Dressing: Prevena incisional VAC to remain in place 7 days (through 11/07/2020) then discard. See attached informational booklet. Apply a silver Mepilex dressing after VAC dressing removed. Change silver Mepilex every 7 days until Ortho f/u on 11/16/2020. 6. Shower: Disconnect Prevena VAC pump prior to showering and keep in a safe place. Lightly pat theoperative dressing dry if it becomes wet. DO NOT submerge the dressing/incision. 7. Aggressive bowel regimen - LBM = 11/01/2020. 8. Physical therapy/Ocupational therapy twice a day 7 days per week. 9. Keflex 500 mg po Q6 hour for 7 days. 10. Continue knee high stockings 20-30 mmHg to right lower extremity if the patient is able to tolerate that strength. No compression stocking LLE until the wound on his left leg is healed. The patient should continue seeing wound care at [facility] once discharged. 11. Unna boot LLE - weekly and prn per Wound Care Protocol (ABIs from 05/2020, on chart). 12. Wound Care Instructions: Pannus: A. Mepilex Ag foam to open skin Mepilex Ag foam dressing-nursing to change every 3 days and as needed for dressing with 50% or greater strike though drainage. 1. Cleanse wound with dermal wound cleanser and gauze. 2. Apply Mepilex Ag foam dressing B. Interdry Ag to pannus Interdry Ag - Pannus, BLLE skin folds 1. Cleanse the skin with Dermal Wound Cleanser and pat dry. 2. Measure and cut the appropriate length of textile allowing for 2 inches of textile exposure to the air on each side of the skin fold for moisture evaporation. 3. Place one edge of the textile in the base of the skin fold. Gently smooth the rest of the cloth over the skin keeping the textile flat. Gently place the skin fold together assuring that 2 inches of the textile is exposed to the air at each cut end. 4. InterDry Ag may be left in place for up to 5 days, depending on soiling, odor, amount of moisture and the general skin condition. C. Antifungal treatment per provider order Sacrum: Mepilex Border dressing-nursing to change every 3 days and as needed for dressing with 50% or greater strike though drainage. 1. Cleanse wound with dermal wound cleanser and gauze. 2. Apply Mepilex Border dressing ?? Instructions Given to Patient at Discharge: Patient Instructions Activity: 1. Your weight-bearing status is - weight bearing as tolerated of left leg. 2. Remember to use a walker or crutches at all times for balance and protection. Your physical therapist may progress you to using a cane when appropriate. 3. Remember your hip precautions: Enhanced: DO NOT flex the operative leg more than 90 degrees. DO NOT cross your legs. USE a raised seating / toilet seat. Use a pillow or the Abduction pillow between your legs to remind you not to cross your legs. 4. Wear the Abdominal binder to keep your pannus off lower extremities. See wound care instructionsfor pannus below. Anticoagulation follow-up: You are being discharged home on Coumadin??, see below for instructions. Coumadin?? (warfarin) Management upon Discharge Reason for anticoagulation therapy: DVT (blood clot) prevention after Orthopedic surgery and continuation indefinitely for atrial fibrillation. Your Coumadin?? (warfarin) dosing instruction upon discharge is: - Day of discharge (11/03/2020): Take 7.5 mg (one of the 7.5 mg pills) at 5 PM. Your next INR is scheduled on: 11/04/2020. This will be checked at rehab. It is very important that you have your PT/INR checked regularly as your dose may change based on your lab values, at least twice per week (usually every Friday and ). INR Goal: 2-3 Expected duration of treatment: You will continue to be on Coumadin indefinitely as before your surgery. Provider/Team responsible for ongoing outpatient anticoagulation management: - Provider/Team/Clinic: Primary Care Provider: Dr. Nick Nettles - - If you have not received a call from your provider, by 4pm, after having your INR drawn, please call Dr. Nettles's office ([phone]) for further dose instructions. Warfarin (Coumadin??) should be taken at the same time every day, usually at 5pm. The following table shows your most recent INR results and Coumadin?? doses: Date Notes INR Coumadin?? dose 11/01 day of operation 2.0, 1.8 5 mg 11/02 POD#1 1.8 5 mg 11/03 D/C POD#2 1.9 7.5 mg due at 5 pm If your INR level is ever above 3.5 you should not participate in aggressive Physical therapy exercises - you can mobilize/ambulate. This will decrease the possibility of more bleeding into your joint. Once your INR is less than 3.5 you can resume Physical therapy. One of the Orthopedic nurses willcall you with further instructions as needed. Warfarin Education that was reviewed with you in the hospital: (please see your warfarin (Coumadin??) reference sheet for more information) ? Diet and medications can affect your INR ? Maintaining a diet with a consistent amount of vitamin K containing foods is important to keep your INR in range ? Avoid major changes in dietary habits ? Do not take or discontinue any prescription or fmaf-byd-disdxuh medications without asking your doctor or pharmacist ? Inform all your doctors, pharmacists and other healthcare providers that you take warfarin ? Warfarin increases your risk of bleeding If you experience any of these signs or symptoms of bleeding or blood clot please seek immediate medical attention: ?? Increased pain, swelling or sudden shortness of breath ?? Severe headache ?? Dizziness ?? Unusual bleeding or bruising ?? Changes in urine or bowel movement color ?? Coughing or spitting up blood or nosebleeds that do not stop or occur more often Diet: Resume your usual carb control diet but increase your intake of fluids and fiber while you are on narcotic pain meds to prevent constipation. Driving: None until you are cleared to do so by your Orthopedic surgeon. You should not drive whileyou are on narcotic pain meds as they can affect your judgment and reaction time. Call your surgeonwith any questions/concerns. Medications: 1. The pain medication you are on can cause constipation so increase your intake of fluids and fiber while you are on them. The stool softener, Pericolace, that has been prescribed can also be taken to facilitate a bowel movement. You can also take an rrjm-oao-fdulwbf medication, Miralax if needed to combat constipation. 2. If you need a renewal on your narcotic pain medication, you need to give the Orthopedic clinic enough time to process your request. This can take up to three days, so plan accordingly. 3. Continue acetaminophen (Tylenol) 1,000mg every 8 hours around the clock until 11/11/2020 (for ten days after your surgery). This can be effective in controlling pain along with your other medications. After that you can take Tylenol as needed per package insert. Do not take more than 3,000mg of acetaminophen in a 24 hour period. 4. You have been discharged on a short acting narcotic, oxycodone. You will be on this medication for a limited period of time only. Take the smallest dose possible to control your pain. As your painimproves take smaller, less frequent doses. You may break the tablet to achieve a smaller dose. 5. You have been discharged on an antibiotic, Keflex. Take 500 mg every 6 hours for 7 days. Shower (mariano/sutures): 1. You can shower but remember your activity limitations and always have a chair available for balance and protection. DO NOT submerge the dressing/incision. 2. Prevena Incisional VAC. Do not let water run over the VAC dressing. If it becomes wet lightly pat the dressing dry. DO NOT submerge the incision. 3. You have mariano/sutures. Always cover them with a waterproof dressing or plastic bag when showering until they are removed. 4. After mariano/sutures are removed you can let water run gently over the incision provided there is no drainage.. Sutures/[place]: 1. Staple/suture removal 3 weeks after surgery (approximately 11/21/2020- probably at your follow-upOrtho appt on 11/16/2020). Prevena Incisional VAC: 1. You have an incisional VAC (vacuum or negative pressure dressing) on your left hip. This is a one-time use system that will work for 7 days after application. 2. The dressing will stay in place for 7 days. When the small [place] of lights on the front of the pump are out (after 7 days), remove the Prevena VAC dressing. You will then need to apply a silver Mepilex dressing every 7 days until your follow-up Ortho appointment on 11/16/2020. Each silver Mepilex can remain in place for seven days. 3. Prior to showering, hold the on/off button down until therapy stops. Close the clamp located on the connection tubing. Disconnect the tubing from the therapy unit. Keep the pump in a safe locationaway from water while showering. After the shower, reconnect the unit/pump. 4. After you remove the dressing in 7 days, you may discard the pump. 5. Consider charging the therapy unit while you are sleeping. 6. See the attached informational booklet for more information. Wound Care for Pannus and sacrum see below. Left lower extremity unna boot per Wound Care Protocol. Misc: Remember that ICE and elevation are very important after surgery to help decrease swelling and control pain. Use ICE for 20-30 minutes at a time and keep your leg elevated as much as possible. Call your doctor ([phone]) if you develop: 1. Fever greater than 100.5 2. Severe nausea or vomiting 3. Increasing pain that is not controlled by pain medications 4. Increasing redness, swelling, or drainage from incisions 5. Change in sensation FOLLOW-UP APPOINTMENTS: 1. You will have follow[place]up appointments [place] [facility] as indicated below in Future Appointment and Orders. 2. You will need to have x-rays prior to your follow-up appointment on 11/16/2020. Please come to Radiology, desk 3T, 1 hour BEFORE that appointment for these x-rays. Future Appointments Date Time Provider Department Center 11/08/2020 8:30 AM Yaneth Sage, [facility] VAS LAB [facility] 11/08/2020 9:00 AM Delroy More MD [facility] [place] [facility] 11/16/2020 9:30 AM [facility] DX ROOM 3 MH Xray [facility] Rad 11/16/2020 10:30 AM Jeffrey Cuevas MD [facility] [place] 3C [facility] If you have questions or concerns: Friday through Friday, 8 AM - 5 PM, please call Dr. Geovani Strange MD's office at . If it is after 5 PM, the weekend, or holidays, please call and ask to speak with theOrthopedic resident on-call. General Instructions Pannus: A. Mepilex Ag foam to open skin Mepilex Ag foam dressing-nursing to change every 3 days and as needed for dressing with 50% or greater strike though drainage. 1. Cleanse wound with dermal wound cleanser and gauze. 2. Apply Mepilex Ag foam dressing B. Interdry Ag to pannus Interdry Ag - Pannus, BLLE skin folds 1. Cleanse the skin with Dermal Wound Cleanser and pat dry. 2. Measure and cut the appropriate length of textile allowing for 2 inches of textile exposure to the air on each side of the skin fold for moisture evaporation. 3. Place one edge of the textile in the base of the skin fold. Gently smooth the rest of the cloth over the skin keeping the textile flat. Gently place the skin fold together assuring that 2 inches of the textile is exposed to the air at each cut end. 4. InterDry Ag may be left in place for up to 5 days, depending on soiling, odor, amount of moisture and the general skin condition. C. Antifungal treatment per provider order Sacrum: Mepilex Border dressing-nursing to change every 3 days and as needed for dressing with 50% or greater strike though drainage. 1. Cleanse wound with dermal wound cleanser and gauze. 2. Apply Mepilex Border dressing Future Appointments and Orders Future Appointments and Orders Future Appointments Provider Department Dept Phone 11/08/2020 8:30 AM Yaneth Sage RVT Vascular Lab at [facility] Arrive at: Drug Abuse Social Worker Area 3V [phone] 11/08/2020 9:00 AM Delroy More MD Vascular Surgery at [facility] Arrive at: Drug Abuse Social Worker Area 3V [phone] Check-in: [facility] Area 3V. 11/16/2020 9:30 AM [facility] DX ROOM 3 XRay at [facility] Arrive at: Drug Abuse Social Worker Area 3T [phone] Please go to Drug Abuse Social Worker Area 3T ([place] Location). 11/16/2020 10:30 AM Jeffrey Cuevas MD Orthopaedics at [facility] Arrive at: Drug Abuse Social Worker Area 3C [phone] Primary Care Provider: Nick Nettles MD [phone] Discharge References/Attachments None documented in this encounter Discharge Instructions * Discharge Instructions* Sara Montoya RN - 11/02/2020 3:11 PM EST Pannus: A. Mepilex Ag foam to open skin Mepilex Ag foam dressing-nursing to change every 3 days and as needed for dressing with 50% or greater strike though drainage. 1. Cleanse wound with dermal wound cleanser and gauze. 2. Apply Mepilex Ag foam dressing B. Interdry Ag to pannus Interdry Ag - Pannus, BLLE skin folds 1. Cleanse the skin with Dermal Wound Cleanser and pat dry. 2. Measure and cut the appropriate length of textile allowing for 2 inches of textile exposure to the air on each side of the skin fold for moisture evaporation. 3. Place one edge of the textile in the base of the skin fold. Gently smooth the rest of the cloth over the skin keeping the textile flat. Gently place the skin fold together assuring that 2 inches of the textile is exposed to the air at each cut end. 4. InterDry Ag may be left in place for up to 5 days, depending on soiling, odor, amount of moisture and the general skin condition. C. Antifungal treatment per provider order Sacrum: Mepilex Border dressing-nursing to change every 3 days and as needed for dressing with 50% or greater strike though drainage. 1. Cleanse wound with dermal wound cleanser and gauze. 2. Apply Mepilex Border dressing * Patient Instructions* Robinson Blank P, ETCHED CIRCUIT PROCESSOR - 11/01/2020 4:18 PM EST Activity: 1. Your weight-bearing status is - weight bearing as tolerated of left leg. 2. Remember to use a walker or crutches at all times for balance and protection. Your physical therapist may progress you to using a cane when appropriate. 3. Remember your hip precautions: Enhanced: DO NOT flex the operative leg more than 90 degrees. DO NOT cross your legs. USE a raised seating / toilet seat. Use a pillow or the Abduction pillow between your legs to remind you not to cross your legs. 4. Wear the Abdominal binder to keep your pannus off lower extremities. See wound care instructionsfor pannus below. Anticoagulation follow-up: You are being discharged home on Coumadin??, see below for instructions. Coumadin?? (warfarin) Management upon Discharge Reason for anticoagulation therapy: DVT (blood clot) prevention after Orthopedic surgery and continuation indefinitely for atrial fibrillation. Your Coumadin?? (warfarin) dosing instruction upon discharge is: - Day of discharge (11/03/2020): Take 7.5 mg (one of the 7.5 mg pills) at 5 PM. Your next INR is scheduled on: 11/04/2020. This will be checked at rehab. It is very important that you have your PT/INR checked regularly as your dose may change based on your lab values, at least twice per week (usually every Friday and ). INR Goal: 2-3 Expected duration of treatment: You will continue to be on Coumadin indefinitely as before your surgery. Provider/Team responsible for ongoing outpatient anticoagulation management: - Provider/Team/Clinic: Primary Care Provider: Dr. Nick Nettles - - If you have not received a call from your provider, by 4pm, after having your INR drawn, please call Dr. Nettles's office ([phone]) for further dose instructions. Warfarin (Coumadin??) should be taken at the same time every day, usually at 5pm. The following table shows your most recent INR results and Coumadin?? doses: Date Notes INR Coumadin?? dose 11/01 day of operation 2.0, 1.8 5 mg 11/02 POD#1 1.8 5 mg 11/03 D/C POD#2 1.9 7.5 mg due at 5 pm If your INR level is ever above 3.5 you should not participate in aggressive Physical therapy exercises - you can mobilize/ambulate. This will decrease the possibility of more bleeding into your joint. Once your INR is less than 3.5 you can resume Physical therapy. One of the Orthopedic nurses willcall you with further instructions as needed. Warfarin Education that was reviewed with you in the hospital: (please see your warfarin (Coumadin??) reference sheet for more information) ? Diet and medications can affect your INR ? Maintaining a diet with a consistent amount of vitamin K containing foods is important to keep your INR in range ? Avoid major changes in dietary habits ? Do not take or discontinue any prescription or vfqx-gee-vhqsucq medications without asking your doctor or pharmacist ? Inform all your doctors, pharmacists and other healthcare providers that you take warfarin ? Warfarin increases your risk of bleeding If you experience any of these signs or symptoms of bleeding or blood clot please seek immediate medical attention: ?? Increased pain, swelling or sudden shortness of breath ?? Severe headache ?? Dizziness ?? Unusual bleeding or bruising ?? Changes in urine or bowel movement color ?? Coughing or spitting up blood or nosebleeds that do not stop or occur more often Diet: Resume your usual carb control diet but increase your intake of fluids and fiber while you are on narcotic pain meds to prevent constipation. Driving: None until you are cleared to do so by your Orthopedic surgeon. You should not drive whileyou are on narcotic pain meds as they can affect your judgment and reaction time. Call your surgeonwith any questions/concerns. Medications: 1. The pain medication you are on can cause constipation so increase your intake of fluids and fiber while you are on them. The stool softener, Pericolace, that has been prescribed can also be taken to facilitate a bowel movement. You can also take an ihcs-tlr-ycyrtpt medication, Miralax if needed to combat constipation. 2. If you need a renewal on your narcotic pain medication, you need to give the Orthopedic clinic enough time to process your request. This can take up to three days, so plan accordingly. 3. Continue acetaminophen (Tylenol) 1,000mg every 8 hours around the clock until 11/11/2020 (for ten days after your surgery). This can be effective in controlling pain along with your other medications. After that you can take Tylenol as needed per package insert. Do not take more than 3,000mg of acetaminophen in a 24 hour period. 4. You have been discharged on a short acting narcotic, oxycodone. You will be on this medication for a limited period of time only. Take the smallest dose possible to control your pain. As your painimproves take smaller, less frequent doses. You may break the tablet to achieve a smaller dose. 5. You have been discharged on an antibiotic, Keflex. Take 500 mg every 6 hours for 7 days. Shower (mariano/sutures): 1. You can shower but remember your activity limitations and always have a chair available for balance and protection. DO NOT submerge the dressing/incision. 2. Prevena Incisional VAC. Do not let water run over the VAC dressing. If it becomes wet lightly pat the dressing dry. DO NOT submerge the incision. 3. You have mariano/sutures. Always cover them with a waterproof dressing or plastic bag when showering until they are removed. 4. After mariano/sutures are removed you can let water run gently over the incision provided there is no drainage.. Sutures/[place]: 1. Staple/suture removal 3 weeks after surgery (approximately 11/21/2020- probably at your follow-upOrtho appt on 11/16/2020). Prevena Incisional VAC: 1. You have an incisional VAC (vacuum or negative pressure dressing) on your left hip. This is a one-time use system that will work for 7 days after application. 2. The dressing will stay in place for 7 days. When the small [place] of lights on the front of the pump are out (after 7 days), remove the Prevena VAC dressing. You will then need to apply a silver Mepilex dressing every 7 days until your follow-up Ortho appointment on 11/16/2020. Each silver Mepilex can remain in place for seven days. 3. Prior to showering, hold the on/off button down until therapy stops. Close the clamp located on the connection tubing. Disconnect the tubing from the therapy unit. Keep the pump in a safe locationaway from water while showering. After the shower, reconnect the unit/pump. 4. After you remove the dressing in 7 days, you may discard the pump. 5. Consider charging the therapy unit while you are sleeping. 6. See the attached informational booklet for more information. Wound Care for Pannus and sacrum see below. Left lower extremity unna boot per Wound Care Protocol. [facility]: Remember that ICE and elevation are very important after surgery to help decrease swelling and control pain. Use ICE for 20-30 minutes at a time and keep your leg elevated as much as possible. Call your doctor ([phone]) if you develop: 1. Fever greater than 100.5 2. Severe nausea or vomiting 3. Increasing pain that is not controlled by pain medications 4. Increasing redness, swelling, or drainage from incisions 5. Change in sensation FOLLOW-UP APPOINTMENTS: 1. You will have follow-up appointments at [facility] as indicated below in Future Appointment and Orders. 2. You will need to have x-rays prior to your follow-up appointment on 11/16/2020. Please come to Radiology, desk 3T, 1 hour BEFORE that appointment for these x-rays. Future Appointments Date Time Provider Department Center 11/08/2020 8:30 AM Yaneth Sage RVT [facility] VAS LAB JOHNNA BROOKS 11/08/2020 9:00 AM Delroy More MD [facility] V SURG [facility] 11/16/2020 9:30 AM [facility] DX ROOM 3 Xray [facility] Rad 11/16/2020 10:30 AM Jeffrey Cuevas MD [facility] ORTH [address] [place] [address] If you have questions or concerns: Friday through Friday, 8 AM - 5 PM, please call Dr. Geovani Strange MD's office at . If it is after 5 PM, the weekend, or holidays, please call and ask to speak with theOrthopedic resident on-call. documented in this encounter Medications at Time of Discharge [...] needed for Chest pain. Reported on 02/17/2017 warfarin (Coumadin) 7.5 mg Tablet Take 1 tablet by mouth once for 1 dose. Inc dose X 1 day on 11/03/2020, then daily dose based on INR 11/03/2020 11/03/2020 cephALEXin (Keflex) 500 mg Capsule Take 1 capsule by mouth every 6 hours for 25 doses. 11/03/2020 11/10/2020 documented as of this encounter Progress Notes * Dee Stevens RN - 11/03/2020 3:15 PM EST Patient discharge to rehab. IV removed, site benign. My assessment remains unchanged from my previous assessment. Patient denies chest pain and shortness of breath. RN Discussed pain management with patient, pain tolerable. Patient medicated prior to discharge. Patient has all belongings. Patient received After Visit Summary. These were reviewed. All questions answered. Patient was encouraged to call with questions or concerns. Discharge packet and prescriptions given to ambulance service. Patient discharged to rehab facility via ambulance. Report called to rehab facility. * Yaneth Parsons RN - 11/03/2020 11:11 AM EST Patient accepted SWING bed offer at: [facility] Sub-Acute (Swing) Rehab Levels of Care [address] [place] [address] Transportation: ambulance Ambulance transportation is medically necessary at discharge related to 2xassist for transfers, moderate to severe pain on movement, inability to maintain erect seated position/ pain on movement, medical tech required, morbid obesity. I have discussed Medicare/Private Insurance reimbursement guidelines for ambulance transport. Patient verbalize understanding of their potential financial obligation and agree with ambulance transport. * Johnna Arroyo RN - 11/03/2020 10:46 AM EST Office of Care Management/Warp Tester Patient Name: Jaime Crouch : 1945 Patient has been offered a swing bed at [facility] for today. [facility] arranged for a 3pm transport. Ambulance will need: Medicare ambulance form completed and signed (MD or Medical Assembly RN/CORPORATION SECRETARY) Copy of patient demographics [place] Out of Hospital DNR/DNI order, if active MD to MD report to Dr. Carter at [phone]. Please call Nursing Report to [phone] ask for stereoptician. Info to accompany patient: Copies of Medication Administration Records and IV sheets for past 10 days. Plan: Warp Tester will be available to the patient and Medical Assembly-RN and/or Social Workerfor further assistance. Patient will be discharged to: [facility] JOHNNA ARROYO RN, Warp Tester * Jeffrey Cuevas MD - 11/03/2020 6:49 AM EST ORTHOPAEDIC SURGERY INPATIENT PROGRESS NOTE Patient Name: Jaime Crouch Age: 75 y.o. Surgery/Issue: Left Revision Total Hip Arthroplasty Attending: Dr. Strange Date of surgery: 11/01/2020 SUBJECTIVE / INTERVAL HISTORY: No acute issues overnight. AFVSS this AM. Intra-op cultures remain NGTD. Denies numbness or tingling in LLE. Incisional vac in place, holding suction. Wound care saw patient yesterday and provided him with interdry for under pannus and micotin powder. Worked with PT yesterday, reports this went well. FOCUSED REVIEW OF SYSTEMS: as above. Active Hospital Problems Diagnosis ??? 10/31/2020 Status post revision of Left total hip (Dr. Strange) ??? Failed total hip arthroplasty, initial encounter Resolved Hospital Problems No resolved problems to display. Active Non-Hospital Problems Diagnosis ??? Relative polycythemia ??? Class 3 severe obesity due to excess calories with serious comorbidity and body mass index (BMI) of 60.0 to 69.9 in adult ??? Type 2 diabetes mellitus with circulatory disorder, without long-term current use of insulin ??? Pulmonary embolism ??? (HFpEF) heart failure with preserved ejection fraction ??? Chronic venous insufficiency ??? Venous stasis ulcer of left lower extremity ??? Cholangitis ??? Morbid obesity ??? CAD ??? Nonsustained ventricular tachycardia ??? Hypertension ??? Suspected cholecystitis vs cholangitis ??? Atrial fibrillation ??? TOM on CPAP ??? Phimosis ??? Nephrolithiasis MEDICATIONS: ??? POCT Fingerstick Glucose AND insulin lispro (HumaLOG) (100 unit/mL) subcutaneous injection vial 1-5 Units ??? cephALEXin (Keflex) capsule 500 mg ??? miconazole (MICOTIN) 2 % powder ??? BUpivacaine (pf) (Marcaine) (2.5 mg/mL) 0.25% injection ??? povidone-iodine 5 % ophthalmic solution ??? cloNIDine (pf) (Duraclon) (100 mcg/mL) Epidural injection ??? ketorolac (Toradol) (30 mg/mL) injection ??? thrombin (bovine) (THROMBIN-JMI) solution ??? thrombin (Bovine) (THROMBINAR) kit ??? gelatin compressed (GELFOAM) sponge ??? lactulose (Chronulac) (0.67 gram/mL) oral liquid 10 g ??? celecoxib (CeleBREX) capsule 200 mg ??? pantoprazole EC (Protonix) tablet 20 mg ??? ketorolac (Toradol) (15 mg/mL) injection 15 mg ??? warfarin (COUMADIN) daily order reminder ??? multivitamin with minerals (THERA-M) tablet 1 tablet ??? allopurinoL (Zyloprim) tablet 300 mg ??? metoprolol succinate XL (Toprol-XL) tablet 200 mg ??? glucose (GLUTOSE) 40% oral geL OR dextrose 10% infusion OR glucagon (Glucagen) (1 mg/mL) injection solution 1 mg ??? sodium chloride 0.9 % (flush) flush 5 mL ??? sodium chloride 0.9 % (flush) flush 5-20 mL ??? lidocaine (Xylocaine) 1% (10 mg/mL) injection 3 mg ??? bisacodyl EC (Dulcolax) tablet 10 mg ??? bisacodyL (Dulcolax) suppository 10 mg ??? polyethylene glycoL (Miralax) packet 17 g ??? senna-docusate (Pericolace) 8.6-50 mg per tablet 2 tablet ??? ondansetron (pf) (Zofran) (2 mg/mL) injection 4 mg ??? acetaminophen (Tylenol) tablet 1,000 mg ??? oxyCODONE (Roxicodone) tablet 5 mg OR oxyCODONE (Roxicodone) tablet 10 mg OR oxyCODONE (Roxicodone) tablet 15 mg ??? potassium citrate SR (Urocit) tablet TbSR 20 mEq ??? furosemide (Lasix) tablet 40 mg ??? atorvastatin (Lipitor) tablet 80 mg OBJECTIVE: Temp: [36.4 ??C (97.5 ??F)-37 ??C (98.6 ??F)] Heart Rate: [93-101] Resp: [17-20] BP: (93-149)/(62-95) Intake/Output Summary (Last 24 hours) at 11/03/2020 0649 Last data filed at 11/03/2020 0400 Gross per 24 hour Intake 550 ml Output 1695 ml Net -1145 ml Body mass index is 53.71 kg/m??. PE: General: NAD, awake/alert CV: RRR assessed peripherally Resp: Breathing comfortably on RA Abd: Haque draining cyu LLE: Provena incisional vac at continuous suction In hip abduction pillow Mepilex to wound at ankle Motor intact to EHL, FHL, TA, ankle flexion/extension Sensation intact in foot/calf/thigh Brisk capillary refill distally Lab Results Component Value Date NA 141 11/03/2020 K 4.5 11/03/2020 CL 107 11/03/2020 CO2 23 11/03/2020 BUN 23 (H) 11/03/2020 CREATININE 0.78 (L) 11/03/2020 GLUCOSE 147 11/03/2020 GLUCFASTING 130 (H) 10/09/2017 CALCIUM 9.3 11/03/2020 Lab Results Component Value Date WBC 11.3 (H) 11/03/2020 HGB 14.7 11/03/2020 HCT 47.1 11/03/2020 MCV 96.3 (H) 11/03/2020 PLATELET 225 11/03/2020 Lab Results Component Value Date INR 1.9 11/03/2020 Imaging: XR Pelvis 11/01/20 S/p L revision NAIDA. No evidence of intraoperative fracture or complication. L hip is reduced. R THAwith no change in appearance from prior XR. Poorly exposed XR. ASSESSMENT / PLAN: Jaime Crouch is a 75 y.o. male 2 Days Post-Op s/p Revision Left NAIDA. Patientprogressing well with stable vitals. Continue to mobilize with PT/OT this AM. Appreciate wound carerecs for leg ulcers and pannus. Activity: WBAT LLE, enhanced precautions, abduction pillow while in bed DVT prophylaxis: Warfarin (goal INR ~2) - on chronically Closure: Sutures (remove 21 days) Dressing: Prevena incisional vac x 7 days then transition to Mepilex until f/u Antibiotics: Periop ancef, discharge on 1 week Keflex Consults: PT/OT F/u: 2 weeks for wound check in fellow clinic Jeffrey Cuevas MD 11/03/2020 Future Appointments Date Time Provider Department Center 11/08/2020 8:30 AM Yaneth Sage, [facility] VAS LAB JOHNNA BROOKS 11/08/2020 9:00 AM Delroy More MD [facility] SURG [facility] 11/16/2020 9:30 AM [facility] DX ROOM 3 MH Xray [facility] Rad 11/16/2020 10:30 AM Jeffrey Cuevas MD [facility] ORTH 3C [facility] * Jewell Gonzalez RN - 11/03/2020 2:12 AM EST OUTCOME EVALUATION NOTE: OUTCOME SUMMARY: Patient progressing towards d/c goals appropriately at this time. Patient A&O x 4. Last BM was on 11/01. Patient voiding adequately via urinal. Prevena Wound Vac to L hip intact. Patients pain adequately controlled, see MAR for medications given. Inter dry to panus area, miconazole powder applied. Unnecessary awakening of patient avoided for delirium prevention and the promotion of a proper sleep wake cycle. CPAP on while asleep. Will continue to monitor and help patient reach d/c goals. PLAN MOVING FORWARD: Pain control Mobilize D/c planning INDIVIDUALIZED FALL PREVENTION: Patient is currently a High risk to Fall. Patient educated on bed/chair alarm, demonstrates proper use of call estevez and verbalizes understanding of fall preventions implemented. Patient-specific fall risk factors per assessment: [current deficits]: Impaired mobility, NWB LLE, IV Sites, Pain, Medications, Hospital Environment. Assistance [level of assistance required for transfers and ambulation]: 2 assist w/ FWW Supervision [direct monitoring required during toileting and ADLs]: Hands on assistance with ADL's Surveillance [continuous indirect monitoring]: Bed alarm, Masimo, Purposeful Rounding, Bedside Report Patient-specific fall prevention interventions for sensory deficits provided, if applicable: [X] N/A CPG GOAL OUTCOME EVALUATION: * Ryan Driscoll RCP - 11/02/2020 11:28 PM EST Jaime Crouch is being followed for use of NIV. He had his home unit setup at [facility] upon initial assessment this evening, humidity chamber filled. No assistance required from this RT. He remainedcompliant with use overnight. Continue to follow and assist, as needed. Ryan Driscoll RCP * April Tarango RN - 11/02/2020 6:39 PM EST OUTCOME EVALUATION NOTE: OUTCOME SUMMARY: Patient progressing towards d/c goals appropriately at this time. Patient's pain adequately controlled with scheduled and PRN medications, see MAR for medications given. VSS on RA. Pt moved to bariatric bed this morning. L hip with previna vac in place. Wound care assessed panus, inter dry and miconazole placed. Vascular Surgery assessed LLE wound, foam mepilex in place. Worked with PT/OT 2 assist with FWW. Commode seat over toilet to help with height. Tolerating a diet. Voiding with low PVRs. LBM 11/01. Blood sugars checked as ordered. Will continue to monitor and help patient reach d/c goals. PLAN MOVING FORWARD: Pain control Mobilize D/C planning INDIVIDUALIZED FALL PREVENTION: Patient is currently a high risk to Fall. Patient educated on bed/chair alarm, demonstrates proper use of call estevez and verbalizes understanding of fall preventions implemented. Patient-specific fall risk factors per assessment: [current deficits]: Pain, Medications, Hospital Environment, Impaired Mobility, Recent Surgery Assistance [level of assistance required for transfers and ambulation]: 2 + FWW Supervision [direct monitoring required during toileting and ADLs]: Min assist with ADL's Surveillance [continuous indirect monitoring]: Briana Mitchell Round[place]ver, Nurse Knowledge Exchange at Bedside, Bed Alarm Set * Yaneth Parsons RN - 11/02/2020 4:21 PM EST Based on discussions with the multi-disciplinary healthcare team, the patient would benefit from inpatient rehabilitation level of care at discharge. ?? I have met with the patient to discuss discharge planning needs. I have provided the [facility], Office of Care Management letter from the [facility] pertaining to rehab referrals. I have also provided a letter describing our affiliations within [facility] and educatedthem about their right to choose where referrals are. ?? Provided patient with CMS Star Quality Rating for SNF, LTAC and/or IRF hand out. ?? I reviewed the different levels of rehab including SNF, swing, acute and LTAC with the patient. ?? The patient has been provided a list of facilities within their preferred geographic area. ?? I have requested that the patient provide at least three choices for referral. ?? The patient have requested referrals to: 1. [facility] and Sub-Acute (Swing) Rehab Levels of Care [address] [place] [address] ?? 2. [facility] (Swing) ([facility]) [address] [place] [address] ?? PHONE: [phone] FAX: [phone] ?? Expected date of discharge: 11/03-11/04 Note routed to Warp Tester who will communicate referrals to facilities and provide any required information. * Maryellen Rahman PT - 11/02/2020 11:45 AM EST Physical Therapy Evaluation Patient profile: Jaime Crouch is a 75 y.o. morbidly obese marriedmale admitted on 10/31/[address] Geovani Strange MD for planned L NAIDA revision Patient with the following active problems: Past Medical History: Diagnosis Date ??? ASCVD (arteriosclerotic cardiovascular disease) 1993 first RI 1992, stent to LAD in 2006 ??? Atrial fibrillation chronic anticoagulation ??? Chronic venous insufficiency ??? Chronic venous insufficiency 10/17/2015 ??? Class 3 severe obesity due to excess calories with serious comorbidity and body mass index (BMI) of 60.0 to 69.9 in adult 03/17/2018 ??? DVT (deep venous thrombosis) ??? HLD (hyperlipidemia) ??? Hypertension ??? Kidney stone ??? Nephrolithiasis hx of nephrostomy tube and posterior approach removal ??? TOM on CPAP ??? PE (pulmonary embolism) ??? Pre-diabetes 10/04/2017 Hemoglobin A1c 6.1 ??? Venous stasis ulcer of left lower extremity 10/17/2015 Past Surgical History: Procedure Laterality Date ??? CORONARY ANGIOPLASTY WITH STENT PLACEMENT 2007 LAD ??? CYSTOSCOPY for BPH ??? KIDNEY STONE SURGERY Left removal of stones: nephrolithotomy ??? LITHOTRIPSY ??? PRO ERCP,DIAGNOSTIC N/A 09/09/2014 ERCP performed by Nick Broussard MD at [facility] ENDOSCOPY ??? PRO ERCP,DIAGNOSTIC N/A 08/30/2015 ERCP performed by Nick Broussard MD at [facility] MAIN OR ??? PRO ERCP,DIAGNOSTIC N/A 08/30/2015 ERCP performed by Nick Broussard MD at [facility] ENDOSCOPY ??? PRO LAP, CHOLECYSTECTOMY N/A 09/01/2015 LAPAROSCOPIC CHOLECYSTECTOMY performed by Esha Moon MD at [facility] MAIN OR ??? TOTAL HIP ARTHROPLASTY Bilateral Social History: Patient lives w/ his , sister lives across the street. Home Setup: 3 RAJESH w/ a rail on the R side, once in the pt reports he can stay on the first floor where his sister will be having a recliner delivered. Pt has a 1/2 bath on the first level. Pt has a FOS w/ Bilateral rails to his upstairs where he has a bedroom (flat bed OOB to L side), bathroom has a tub shower. Pt has a walk-in shower in his basement, FOS w/ railing on L side. DME: cane (will need to check on walker, further DME) Baseline ADL/Mobility: Pt reports he has been mobilizing w/ a cane, donning pants, underpants w/ use of AE, increased time. assist w/ shoes, brick sorter x 2/wk for dressing changes on feet. Ptreports independence w/ grooming, toileting, and bathing. ?? Precautions/Special Considerations: abdominal binder at all times, Provena incisional vac at continuous suction to L hip, WBAT LLE, fall, enhanced hip precautions w (No hip flexion past 90 degrees, no hip internal rotation past 10 degrees, no hip adduction past midline)) ?? Mobility and Positioning Recommendations: ?? OOB toward L side, can elevate HOB fully prn as pt will sleep in recliner at home ?? Pt may want to sleep in recliner her ?? Ice to L hip several times/day Subjective: ???I can borrow a recliner from my sister who lives next door...?? Pt called his sister w/ PT in room and she does in fact have a large recliner that pt can use w/ plan to find someone to deliver to his house over next couple of days... Do you think I'll need rehab?/// Objective: Pt seen in collaboration w/ OT for evaluation w/ enhanced NAIDA precaution teaching w/ bedmobility, transfer and initial short distance gait to/from BR w/ wide FWW, WBAT LLE. Discussed homemanagement and DC Plan w/ pt agreeable to referrals to in-pt Rehab Pain: Reported tolerable pain t/o Vital Signs: stable t/o per Masimo ?? At Rest With Activity SpO2 97% 97% Heart Rate 86 90's Mental Status: alert, oriented to person, place, and time, cooperative, agreeable to possible need for rehab Vision: NE Skin: morbid obesity. Wound care involved and please refer to her note and recommendations. Musculoskeletal: ROM: dec L hip w/ enhanced precs Strength: assist needed for LLE during bed mobility, was able to use leglifter to self assist but d/t body habitus was not able to use it effectively for bed mobility (twin bed here, pt used to evin) Sensation: NE Bed Mobility: Supine to Sit: to L side of bed w/ HOB elevated > 45 degrees w/ mod assist of 2 w/ pt significantly challenged to scoot toward EOB to get feet on the floor. Cues t/o for hip angle precautions Sit to Supine: NE, pt remained out of bed in bariatric recliner Transfers: Sit to Stand: to bariatric FWW from elevated bed (higher than bed at home) w/ cues and min + assistof 2 from bed, of 1 from commode (over toilet) Stand to Sit: into recliner w/ cues w/ dec eccentric control last few degrees Gait: Distance:8 ft Device used: bariatric FWW Level of assist: cga and cues for sequence Gait mechanics: step to, cues to start w/ operated leg, WBAT LLE Stairs: NA pt will need to manage stairs w/ railing to access home Balance: Sitting Static: retropulsion w/ min assist of 2 needed until pt able to get feet solidly on the floor Sitting Dynamic: NE Standing Static: fair standing w/ FWW, not assessed w/o Standing Dynamic / Gait: Fair w/ FWW Education: patient has been educated on Bed mobility, Transfers, Assistive device/technique, Exercise, Positioning, Safety , Precautions/protocol, Equipment use, Gait , Role of therapy, Discharge planning and home management and needs reinforcement. understanding. Patient status, treatment, and mobility recommendations discussed with nursing. Assessment: Jaime Crouch is a 75 y.o obese man now POD # 1 L NAIDA revision presenting with tolerable level of pain L hip with deficits in ROM and strength L hip w/ core and abdominal weakness w/ NAIDA enhanced precautions in effect. This and body habitus markedly impacting functional mobility, balance, gait and ADL. Pt is presently requiring bed adaptations and 2 assist to mobilize OOB and have recommended that he plan to sleep in large recliner that his sister will lend him until home PT can assess and train in bed mobility in pt's own bed. That said pt asked and understands that he will benefit from ongoing in-javascript application developer PT/OT to progress toward the following goals and safe return home. Discharge Recommendations: Based on the current findings, Anticipated Discharge Disposition (PT): inpatient rehabilitation facility, swing when medically ready for hospital discharge. (vs home w/ 31/03, home PT,OT, recliner) Consult Recommendations: No other consults recommended at this time. Equipment needs: will need to check w/ pt's as to size of pt's walker Cleared by PT for DC: No Goals: To be achieved by 11/09/20 1. Pt. to demonstrate knowledge of safety limitations and precautions and will appropriately request assistance for functional activities and to mobilize. 2. Pt. to demonstrate understanding and performance of appropriate NAIDA exercises. 3. Pt. to perform bed mobility with supervision HOB elevated fully (will sleep in recliner initially at home (pt will not be able to get oo flat twin bed) 4. Pt. to perform sit><stand transfers with modified independenceusing a front wheeled walker(bariatric) 5. Pt. to ambulate 150 feet with supervision using a a front wheeled walker (bariatric) 6. Pt. to ambulate up/down 3 step/stairs using one rail and straight cane with CGA. 7. Family or caregiver to demonstrate understanding of therapeutic interventions to support the care of the patient. 8. Pt will perform appropriate exs, ADL tasks, mobilize and ambulate with tolerable level of pain and stable vital signs Plan: Therapy Frequency (PT): 3-5 times/wk for therapy including balance training, bed mobility training, gait training, home exercise program, patient/family education, postural re-education, range of motion, stair training, strengthening, transfer training and home management and DC Planning. Patient/family understand and agree with plan as stated above. 2017 PT Evaluation Code Rationale: ?? Diagnosis & Pertinent Co-Morbidities, personal factors, and present illness affecting Plan of Care: (see above); Additional personal factors or co- morbidities that impact plan: ?? Total # of Factors: 0 1-2 3+ x ?? Examination of body system impairments, functional limitations and behaviors, and/or participation restrictions. Addressing 1-2 elements Addressing 3 + elements Addressing 4 + elements x ?? Clinical presentation: See assessment above. Stable/Uncomplicated Evolving/Fluctuating Symptoms Unstable/Unpredictable X 375 # NAIDA revision w/ enhance precautions, pain, decreased ROM and strength L hip and grossly formanaging enhanced precautions w/ his body habitus ?? Clinical decision making of moderate complexity based on pt's functional performance as outlinedin this evaluation. Time IN / OUT: 1055/1145 Total Minutes, Physical Therapy: 50(mod eval, home management). MARYELLEN RAHMAN PT Pager: [phone] Physical Therapy Inpatient Rehabilitation Department * Sherman Caldera, OT - 11/02/2020 10:55 AM EST Occupational Therapy Evaluation Patient profile: Jaime Crouch is a 75 y.o. male with hx of morbid obesity DM, CHf, afib on warfarin who present with left femoral head fracture in his left NAIDA. Patient reports he got up one night last week to go to the bathroom when suddenly he heard a lot of cracking and grinding coming from his left hip like someone cracking their knuckles. Over the next few days patient continued to notice a cracking/grinding sound when ambulating so went to his PCP who ordered xray of the hips which showed fracture of the femoral head. Pt now s/p Left Revision Total Hip Arthroplasty. Past Medical History: Diagnosis Date ??? ASCVD (arteriosclerotic cardiovascular disease) 1993 first RI 1992, stent to LAD in 2006 ??? Atrial fibrillation chronic anticoagulation ??? Chronic venous insufficiency ??? Chronic venous insufficiency 10/17/2015 ??? Class 3 severe obesity due to excess calories with serious comorbidity and body mass index (BMI) of 60.0 to 69.9 in adult 03/17/2018 ??? DVT (deep venous thrombosis) ??? HLD (hyperlipidemia) ??? Hypertension ??? Kidney stone ??? Nephrolithiasis hx of nephrostomy tube and posterior approach removal ??? TOM on CPAP ??? PE (pulmonary embolism) ??? Pre-diabetes 10/04/2017 Hemoglobin A1c 6.1 ??? Venous stasis ulcer of left lower extremity 10/17/2015 Past Surgical History: Procedure Laterality Date ??? CORONARY ANGIOPLASTY WITH STENT PLACEMENT 2007 LAD ??? CYSTOSCOPY for BPH ??? KIDNEY STONE SURGERY Left removal of stones: nephrolithotomy ??? LITHOTRIPSY ??? PRO ERCP,DIAGNOSTIC N/A 09/09/2014 ERCP performed by Nick Broussard MD at [facility] ENDOSCOPY ??? PRO ERCP,DIAGNOSTIC N/A 08/30/2015 ERCP performed by Nick Broussard MD at [facility] MAIN OR ??? PRO ERCP,DIAGNOSTIC N/A 08/30/2015 ERCP performed by Nick Broussard MD at [facility] ENDOSCOPY ??? PRO LAP, CHOLECYSTECTOMY N/A 09/01/2015 LAPAROSCOPIC CHOLECYSTECTOMY performed by Esha Moon MD at [facility] MAIN OR ??? TOTAL HIP ARTHROPLASTY Bilateral Social History: Patient lives w/ his , sister lives across the street. Home Setup: 3 RAJESH w/ a rail on the R side, once in the pt reports he can stay on the first floor where his sister will be having a recliner delivered. Pt has a 1/2 bath on the first level. Pt has a FOS w/ Bilateral rails to his upstairs where he has a bedroom (flat bed OOB to L side), bathroom has a tub shower. Pt has a walk-in shower in his basement, FOS w/ railing on L side. DME: cane (will need to check on walker, further DME) Baseline ADL/Mobility: Pt reports he has been mobilizing w/ a cane, donning pants, underpants w/ use of AE, increased time. assist w/ shoes, brick sorter x 2/wk for dressing changes on feet. Ptreports independence w/ grooming, toileting, and bathing. 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 when discussing LB dressing Objective: Seen today for OT evaluation. Cognitive Status/Behavior: ?? Behavior / Mood: alert and cooperative ?? Alert and oriented to: person, place, time and situation ?? Follows commands: 100% of the time ?? Attention: WFL ?? Safety awareness: WFL and fully aware of deficits Vision & Perception: ?? WNL/WFL ?? corrective lenses for reading ?? corrective lenses for distance Communication: WFL Range of motion, strength, coordination: Hand dominance: left Bilateral UEs are grossly within functional limitations LE limitations: RLE grossly WNL decreased ROM, flexibility due to body habitus, LL decreased strength, ROM, flexibility Sensation: subjectively intact/equal Activities of Daily Living: Self-feeding: Independent w/ set up Grooming: Pt declined to perform as pt had just brushed teeth, washed face w/ set up from [facility]. Dressing: Pt TotalA for donning of socks. Pt issued and educated on plant controls specialist/modified technique, will review in future sessions. Pt Dhruv for don/doff of hospital gown. Bathing: ModA: pt assisted w/ sponge bath of posterior trunk, distal LE. Pt washed anterior trunk, proximal LE. Toileting: commode placed over toilet to facilitate increased angle at L hip in seated position Pt stood and voided in urinal: TotalA for holding urinal in the correct place Transfer: Dhruv w/ FWW, grab bars, verbal cues for kick out of LLE Hygiene: TotalA, pt educated on the need to stand and use RUE in future Functional Mobility: Supine to sit: MaxA x 2, increased time, HOB elevated: discussed plan for recliner once home Sit to stand: Dhruv x 2 w/ FWW elevated bed height, Dhruv from commode Ambulation: CGA w/ FWW ~ 10' + 10': toilet and back Stand to sit: Dhruv x 2 w/ FWW,verbal cues for hand placement Balance: Sitting balance: good Standing balance: good w/ FWW Vitals: At Rest With Activity SpO2 97% 97% Heart Rate 86 90's Pain: 4/10 L hip Skin: dressing c/d/i, provena vac in place Education: patient have been educated on Role of occupational therapy/rehabilitation, Transfers, Assistive device/technique, Adaptive equipment training, ADL, Positioning, Safety, Precautions/Protocol, Functional Mobility, Activity pacing/Energy conservation, Home Management, Balance, Recommendations and Discharge planning and verbalizes, demonstrates and needs reinforcement for understanding. Patient status, treatment, and mobility recommendations discussed with nursing. Assessment: Pt has been seen for occupational therapy evaluation. Jaime Crouch presents with the following performance skill deficits and client factors: increased pain, decreased activity tolerance, decreased flexibility/ROM, decreased strength, decreased sitting/standing balance, body habitus, deconditioning, precautions/bracing and compromised mobility status. These performance deficits have led to activity limitations and participation restrictions in the following areas of occupation: dressing, bathing, grooming, toileting, transfers/mobility, rest/sleep, home management, leisure, driving, community mobility and social participation. Pt required a 2 person assist for bed mobility (w/ use of bed features), and initial sit>stand w/ use of a walker. Once standing pt able to mobilize w/ CGA; however, required TotalA for maddie-care and holding of urinal while urinating. Pt is functioning well below his reported baseline and would greatly benefit from an inpatient rehab stay to progress him to a level of functional independence. Pt would benefit from further inpatient OT interventions to address performance deficits and maximize participation and independence with occupationsof daily living. Equipment needs at discharge: TBD Anticipated Discharge Disposition (OT): inpatient rehabilitation facility Other Recommendations: ?? Utilize upright chair position using bed features or transfer to recliner chair as appropriate with 2 person assist w/ bariatric walker in room, ambulate as tolerated, chair follow for longer distance ?? Encourage participation in ADL's by providing set up A on tray table and physical assist only asneeded ?? Use commode over toilet in bathroom for toileting Other Recommendations: Inpatient Rehabilitation consult Goals: To be achieved by 11/16/2020. Pt will don LB clothing w/ Dhruv and AD/AE as needed. Pt will stand at sink level and perform 2-3 grooming tasks w/ set up and SBA. Pt will perform all aspects of toileting independently. Pt will perform functional mobility a house hold distance for ADL/IADL task w/ AE/AD as needed. Pt will verbalize safe plan for bathing given pt's reported home set up. Plan: OT: Therapy Frequency (OT): 2-4 times/wk Planned OT interventions: Role of occupational therapy/rehabilitation, Transfers, Assistive device/technique, Adaptive equipment training, ADL, Positioning, Safety, Precautions/Protocol, Functional Mobility, Activity pacing/Energy conservation, Home Management, Balance, Recommendations and Discharge planning. Total Minutes, Occupational Therapy: 56(eval + sc) 2017 OT Evaluation Code Rationale: ?? Diagnosis & Pertinent Co-Morbidities affecting Plan of Care: see PMHx ?? Occupational Profile & Client History: Brief Expanded Extensive x ?? Assessment of Occupational Performance: 1-3 performance deficits 3-5 performance deficits 5 + performance deficits x ?? Clinical Decision Making: Low Moderate High x Clinical decision making of moderate complexity using standardized patient assessment instrument and measurable assessment of functional outcome. Pager: [phone] Sherman Caldera OT 11/02/2020 Occupational Therapy Rehabilitation Department * Jeffrey Cuevas MD - 11/02/2020 7:42 AM EST ORTHOPAEDIC SURGERY INPATIENT PROGRESS NOTE Patient Name: Jaime Crouch Age: 75 y.o. Surgery/Issue: Left Revision Total Hip Arthroplasty Attending: Dr. Strange Date of surgery: 11/01/2020 SUBJECTIVE / INTERVAL HISTORY: No acute issues overnight. AFVSS this AM. Intra-op cultures remain NGTD. Has not ambulated. Denies numbness or tingling in LLE. Incisional vac in place, holding suction. Abdominal binder in place to hold back pannus, patient reports this is comfortable and fits well at this time. FOCUSED REVIEW OF SYSTEMS: as above. Active Hospital Problems Diagnosis ??? Failed total hip arthroplasty, initial encounter Resolved Hospital Problems No resolved problems to display. Active Non-Hospital Problems Diagnosis ??? Class 3 severe obesity due to excess calories with serious comorbidity and body mass index (BMI) of 60.0 to 69.9 in adult ??? Type 2 diabetes mellitus with circulatory disorder, without long-term current use of insulin ??? Pulmonary embolism ??? (HFpEF) heart failure with preserved ejection fraction ??? Chronic venous insufficiency ??? Venous stasis ulcer of left lower extremity ??? Cholangitis ??? Morbid obesity ??? CAD ??? Nonsustained ventricular tachycardia ??? Hypertension ??? Suspected cholecystitis vs cholangitis ??? Atrial fibrillation ??? TOM on CPAP ??? Phimosis ??? Nephrolithiasis MEDICATIONS: ??? ceFAZolin (Ancef) 2 g in dextrose 5% 100 mL infusion ??? warfarin (Coumadin) tablet 5 mg ??? POCT Fingerstick Glucose AND insulin lispro (HumaLOG) (100 unit/mL) subcutaneous injection vial 1-5 Units ??? BUpivacaine (pf) (Marcaine) (2.5 mg/mL) 0.25% injection ??? povidone-iodine 5 % ophthalmic solution ??? cloNIDine (pf) (Duraclon) (100 mcg/mL) Epidural injection ??? ketorolac (Toradol) (30 mg/mL) injection ??? thrombin (bovine) (THROMBIN-JMI) solution ??? thrombin (Bovine) (THROMBINAR) kit ??? gelatin compressed (GELFOAM) sponge ??? lactulose (Chronulac) (0.67 gram/mL) oral liquid 10 g ??? celecoxib (CeleBREX) capsule 200 mg ??? pantoprazole EC (Protonix) tablet 20 mg ??? sodium chloride 0.9% infusion ??? ketorolac (Toradol) (15 mg/mL) injection 15 mg ??? warfarin (COUMADIN) daily order reminder ??? multivitamin with minerals (THERA-M) tablet 1 tablet ??? allopurinoL (Zyloprim) tablet 300 mg ??? metoprolol succinate XL (Toprol-XL) tablet 200 mg ??? glucose (GLUTOSE) 40% oral geL OR dextrose 10% infusion OR glucagon (Glucagen) (1 mg/mL) injection solution 1 mg ??? sodium chloride 0.9 % (flush) flush 5 mL ??? sodium chloride 0.9 % (flush) flush 5-20 mL ??? lidocaine (Xylocaine) 1% (10 mg/mL) injection 3 mg ??? bisacodyl EC (Dulcolax) tablet 10 mg ??? bisacodyL (Dulcolax) suppository 10 mg ??? polyethylene glycoL (Miralax) packet 17 g ??? senna-docusate (Pericolace) 8.6-50 mg per tablet 2 tablet ??? ondansetron (pf) (Zofran) (2 mg/mL) injection 4 mg ??? acetaminophen (Tylenol) tablet 1,000 mg ??? oxyCODONE (Roxicodone) tablet 5 mg OR oxyCODONE (Roxicodone) tablet 10 mg OR oxyCODONE (Roxicodone) tablet 15 mg ??? potassium citrate SR (Urocit) tablet TbSR 20 mEq ??? furosemide (Lasix) tablet 40 mg ??? atorvastatin (Lipitor) tablet 80 mg ??? sodium chloride 0.9% 100 mL/hr (11/01/201817) OBJECTIVE: Temp: [36.3 ??C (97.3 ??F)-36.9 ??C (98.4 ??F)] Heart Rate: [88-106] Resp: [14-21] BP: (101-140)/(53-90) Intake/Output Summary (Last 24 hours) at 11/02/2020 0742 Last data filed at 11/02/2020 0600 Gross per 24 hour Intake 4479 ml Output 2460 ml Net 2019 ml Body mass index is 53.71 kg/m??. PE: General: NAD, awake/alert CV: RRR assessed peripherally Resp: Breathing comfortably on RA Abd: Haque draining cyu LLE: Provena incisional vac at continuous suction In hip abduction pillow Mepilex to wound at ankle Motor intact to EHL, FHL, TA, ankle flexion/extension Sensation intact in foot/calf/thigh Brisk capillary refill distally Lab Results Component Value Date NA 141 11/02/2020 K 4.4 11/02/2020 CL 106 11/02/2020 CO2 24 11/02/2020 BUN 24 (H) 11/02/2020 CREATININE 0.90 11/02/2020 GLUCOSE 150 11/02/2020 GLUCFASTING 130 (H) 10/09/2017 CALCIUM 8.8 11/02/2020 Lab Results Component Value Date WBC 12.5 (H) 11/02/2020 HGB 15.0 11/02/2020 HCT 49.1 (H) 11/02/2020 MCV 97.4 (H) 11/02/2020 PLATELET 252 11/02/2020 Lab Results Component Value Date INR 1.8 11/02/2020 Imaging: XR Pelvis 11/01/20 S/p L revision NAIDA. No evidence of intraoperative fracture or complication. L hip is reduced. R THAwith no change in appearance from prior XR. Poorly exposed XR. ASSESSMENT / PLAN: Jaime Crouch is a 75 y.o. male 1 Day Post-Op s/p Revision Left NAIDA. Patient progressing well with stable vitals. Plan to mobilize with PT/OT this AM. Will consult wound care for assistance with venous stasis ulcer management. Activity: WBAT LLE, enhanced precautions, abduction pillow while in bed DVT prophylaxis: Warfarin (goal INR ~2) - on chronically Closure: Sutures (remove 21 days) Dressing: Prevena incisional vac x 7 days then transition to Mepilex until f/u Antibiotics: Periop ancef, discharge on 1 week Keflex Consults: PT/OT F/u: 2 weeks for wound check in fellow clinic Jeffrey Cuevas MD 11/02/2020 Future Appointments Date Time Provider Department Center 11/08/2020 8:30 AM Yaneth Sage RVT [facility] VAS LAB JOHNNA BROKOS 11/08/2020 9:00 AM Delroy More [place] [facility] [place] [facility] 11/16/2020 9:30 AM [facility] DX ROOM 3 MH Xray [facility] Rad 11/16/2020 10:30 AM Jeffrey Cuevas MD [facility] [place] [facility]C [facility] Associated attestation - Geovani Strange MD - 11/02/2020 9:01 AM EST I have seen the patient and reviewed the attached history/physical and I agree with the details as written. The assessment and plan were formulated in discussion with me and I agree with them as documented. I reviewed the intraoperative findings with the patient. I discussed his high risk of a complication due to his multiple risk factors. He can weight-bear as tolerated but should have posterior hip precautions. We discussed the risk of dislocation and infection again. Wound care will see him for hisopen sore on his operative leg as well as his skin breakdown under his pannus. All questions were answered. GEOVANI STRANGE MD, MS 11/02/2020 * Perico Avendano MD - 11/01/2020 8:06 PM EST ORTHOPAEDIC SURGERY INPATIENT PROGRESS NOTE Patient Name: Jaime Crouch Age: 75 y.o. Surgery/Issue: Left Revision Total Hip Arthroplasty Attending: Dr. Strange Date of surgery: 11/01/2020 SUBJECTIVE / INTERVAL HISTORY: Patient doing well on POC, says he is eager to go home. He denies CP, SOB, nausea, vomiting, numbness/weakness. Pain well controlled. FOCUSED REVIEW OF SYSTEMS: as above. Active Hospital Problems Diagnosis ??? Failed total hip arthroplasty, initial encounter Resolved Hospital Problems No resolved problems to display. Active Non-Hospital Problems Diagnosis ??? Class 3 severe obesity due to excess calories with serious comorbidity and body mass index (BMI) of 60.0 to 69.9 in adult ??? Type 2 diabetes mellitus with circulatory disorder, without long-term current use of insulin ??? Pulmonary embolism ??? (HFpEF) heart failure with preserved ejection fraction ??? Chronic venous insufficiency ??? Venous stasis ulcer of left lower extremity ??? Cholangitis ??? Morbid obesity ??? CAD ??? Nonsustained ventricular tachycardia ??? Hypertension ??? Suspected cholecystitis vs cholangitis ??? Atrial fibrillation ??? TOM on CPAP ??? Phimosis ??? Nephrolithiasis MEDICATIONS: ??? tranexamic acid (Cyklokapron) 2,547 mg in sodium chloride 0.9% 125.47 mL infusion ??? ceFAZolin (Ancef) 3 g in dextrose 5% 100 mL infusion ??? BUpivacaine (pf) (Marcaine) (2.5 mg/mL) 0.25% injection ??? povidone-iodine 5 % ophthalmic solution ??? cloNIDine (pf) (Duraclon) (100 mcg/mL) Epidural injection ??? ketorolac (Toradol) (30 mg/mL) injection ??? tobramycin (Nebcin) injection ??? vancomycin (Vancocin) injection ??? thrombin (bovine) (THROMBIN-JMI) solution ??? thrombin (Bovine) (THROMBINAR) kit ??? gelatin compressed (GELFOAM) sponge ??? lactulose (Chronulac) (0.67 gram/mL) oral liquid 10 g ??? celecoxib (CeleBREX) capsule 200 mg ??? pantoprazole EC (Protonix) tablet 20 mg ??? sodium chloride 0.9% infusion ??? ceFAZolin (Ancef) 2 g in dextrose 5% 100 mL infusion ??? ketorolac (Toradol) (15 mg/mL) injection 15 mg ??? warfarin (Coumadin) tablet 5 mg ??? [START ON 11/02/2020] warfarin (COUMADIN) daily order reminder ??? multivitamin with minerals (THERA-M) tablet 1 tablet ??? allopurinoL (Zyloprim) tablet 300 mg ??? metoprolol succinate XL (Toprol-XL) tablet 200 mg ??? glucose (GLUTOSE) 40% oral geL OR dextrose 10% infusion OR glucagon (Glucagen) (1 mg/mL) injection solution 1 mg ??? sodium chloride 0.9 % (flush) flush 5 mL ??? sodium chloride 0.9 % (flush) flush 5-20 mL ??? lidocaine (Xylocaine) 1% (10 mg/mL) injection 3 mg ??? bisacodyl EC (Dulcolax) tablet 10 mg ??? bisacodyL (Dulcolax) suppository 10 mg ??? polyethylene glycoL (Miralax) packet 17 g ??? senna-docusate (Pericolace) 8.6-50 mg per tablet 2 tablet ??? ondansetron (pf) (Zofran) (2 mg/mL) injection 4 mg ??? POCT Fingerstick Glucose AND insulin lispro (HumaLOG) (100 unit/mL) subcutaneous injection vial 1-5 Units ??? acetaminophen (Tylenol) tablet 1,000 mg ??? oxyCODONE (Roxicodone) tablet 5 mg OR oxyCODONE (Roxicodone) tablet 10 mg OR oxyCODONE (Roxicodone) tablet 15 mg ??? potassium citrate SR (Urocit) tablet TbSR 20 mEq ??? furosemide (Lasix) tablet 40 mg ??? atorvastatin (Lipitor) tablet 80 mg ??? sodium chloride 0.9% 100 mL/hr (11/01/201817) OBJECTIVE: Temp: [36.3 ??C (97.3 ??F)-36.8 ??C (98.2 ??F)] Heart Rate: [78-106] Resp: [14-21] BP: (101-140)/(53-97) Intake/Output Summary (Last 24 hours) at 11/01/20201918 Last data filed at 11/01/20201817 Gross per 24 hour Intake 3320 ml Output 2435 ml Net 885 ml Body mass index is 53.71 kg/m??. PE: General: NAD, awake/alert CV: RRR assessed peripherally Resp: Breathing comfortably on RA Abd: Haque draining cyu LLE: Provena incisional vac at continuous suction In hip abduction pillow Mepilex to wound at ankle Motor intact to EHL, FHL, TA, ankle flexion/extension Sensation intact in foot/calf/thigh Brisk capillary refill distally Lab Results Component Value Date NA 141 11/01/2020 K 4.0 11/01/2020 CL 106 11/01/2020 CO2 25 11/01/2020 BUN 19 11/01/2020 CREATININE 0.79 (L) 11/01/2020 GLUCOSE 140 11/01/2020 GLUCFASTING 130 (H) 10/09/2017 CALCIUM 9.6 11/01/2020 Lab Results Component Value Date WBC 8.1 11/01/2020 HGB 17.5 (H) 11/01/2020 HCT 54.1 (H) 11/01/2020 MCV 93.3 (H) 11/01/2020 PLATELET 251 11/01/2020 Lab Results Component Value Date INR 1.8 11/01/2020 Imaging: XR Pelvis 11/01/20 S/p L revision NAIDA. No evidence of intraoperative fracture or complication. L hip is reduced. R THAwith no change in appearance from prior XR. Poorly exposed XR. ASSESSMENT / PLAN: Jaiem Crouch is a 75 y.o. male Day of Surgery s/p Revision Left NAIDA. -Patient progressing well with stable vitals. -Plan for PT/OT tomorrow, dispo per PT/OT Activity: WBAT LLE, enhanced precautions, abduction pillow while in bed DVT prophylaxis: Warfarin (goal INR ~2) - on chronically Closure: Sutures (remove 21 days) Dressing: Prevena incisional vac x 7 days then transition to Mepilex until f/u Antibiotics: Periop ancef, discharge on 1 week Keflex Consults: PT/OT F/u: 2 weeks for wound check in fellow clinic (tasked) Perico Avendano MD 11/01/2020 Future Appointments Date Time Provider Department Center 11/02/2020 8:45 AM [facility] DX ROOM 3 MH Xray [facility] Rad 11/02/2020 9:05 AM LAB, THREE L Lab 3L JOHN[facility] BROOKS 11/02/2020 10:00 AM Jeffrey Cuevas MD [facility] [place] [facility] [facility] 11/08/2020 8:30 AM Yaneth Sage RVT [facility] VAS LAB JOHNNA ROBLEDOCO 11/08/2020 9:00 AM Delroy More MD [facility] [place] [facility] * Amanda Perez RN - 11/01/2020 7:25 PM EST Patient arrived to floor via bed. Patient A&O x 3, lungs clear, heart rate irregular. Patient has a vac dressing to left hip, noted to be clean dry and intact and working without any issues. Patient states their pain level is 4/10. Patient denies chest pain, shortness of breath, numbness or tingling. Patient oriented to room, and call estevez, . RN will monitor patient. AMANDA PEREZ RN * Mitzy Antony RN - 11/01/2020 5:05 PM EST Arrived from OR in bed. Attached to monitors and alarms set appropriately for patient. Left hip dressing with previna vac in place 1715: Hand off given to JACOB Carbajal * Jane Kern - 11/01/2020 1:51 PM EST Enrobing Machine Corder Encounter Note Patient Name: Jaime Crouch : [id number] MR#: [id number] Admit Date: 10/31/2020 4:11 PM Hospital Day 1 day Narrative: Responded to a wheel polisher consult. Mr Crouch was awake and awaiting transport to his procedure whenI arrived. Assessment: Mr. Crouch had asked to see Fr. Ford because during a prior hospitalization they had enjoyed a conversation., When I explained Fr. Ford was away he readily engaged discussing his [employer] misty and hisadmiration for the work of [employer]. He was also somewhat apprehensive about his surgery. Intervention and Outcome: Offered social and pastoral support to Mr. Crouch. The visit was interrupted when the transport team came to take him to the OR. Follow-up: Mr. Crouch would benefit from a follow-up pastoral visit. Time in Direct Care: 15 minures Jane Kern 11/01/2020 * Magui No PT - 11/01/2020 11:35 AM EST PHYSICAL THERAPY CONTACT NOTE: Consult received. Chart reviewed. Pt to OR today. Will follow up post operatively. Magui No, PT Pager #[phone] * Nick Chaves RN - 11/01/2020 10:43 AM EST Patient reports no chest pain, SOB, numbness or tingling, and no pain. Patient has an IV in left arm capped. Patient is dim on RA, HR irregular with hx of a- fib. 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 Patient has generalized +1 edema. Patient has redness under panus. BG not requiring c overage. Patient set to get INR recheck at 11:45 prior to OR. Patient has been maintained as NPO. Ihanded off care of this patient to JACOB Ford at 09:25. * Sherman Caldera OT - 11/01/2020 8:11 AM EST OCCUPATIONAL THERAPY 11/01/20 0811 OT Time and Intention Document Type contact Total Minutes, Occupational Therapy 0 Comment, Session Not Performed Order received and chart reviewed. Jaime Crouch is a 75 y.o. male with atraumatic fracture of his total hip arthroplasty ceramic head. Plan for OR for revision NAIDA today. OT will follow up as able/appropriate post op. Vital Signs Heart Rate from SpO2 82 bpm SpO2 96 % Sherman Caldera OT Pager: [phone] * Jeffrey Cuevas MD - 11/01/2020 6:48 AM EST ORTHOPAEDIC SURGERY INPATIENT PROGRESS NOTE Patient Name: Jaime Crouch Age: 75 y.o. Surgery/Issue: Left prosthetic hip femoral head fracture Attending: Alexandr Date of surgery: pending SUBJECTIVE / INTERVAL HISTORY: No acute issues overnight. Tachy to 101, otherwise AFVSS. Using home CPAP. Patient offers no complaints this AM. Pain well controlled. . Pain well controlled. No new numbness or tingling in LLE. INR 2.0 this AM, received 1 dose vitamin K this AM. FOCUSED REVIEW OF SYSTEMS: as above. Active Hospital Problems Diagnosis ??? Failed total hip arthroplasty, initial encounter Resolved Hospital Problems No resolved problems to display. Active Non-Hospital Problems Diagnosis ??? Class 3 severe obesity due to excess calories with serious comorbidity and body mass index (BMI) of 60.0 to 69.9 in adult ??? Type 2 diabetes mellitus with circulatory disorder, without long-term current use of insulin ??? Pulmonary embolism ??? (HFpEF) heart failure with preserved ejection fraction ??? Chronic venous insufficiency ??? Venous stasis ulcer of left lower extremity ??? Cholangitis ??? Morbid obesity ??? CAD ??? Nonsustained ventricular tachycardia ??? Hypertension ??? Suspected cholecystitis vs cholangitis ??? Atrial fibrillation ??? TOM on CPAP ??? Phimosis ??? Nephrolithiasis MEDICATIONS: ??? allopurinoL (Zyloprim) tablet 300 mg ??? metoprolol succinate XL (Toprol-XL) tablet 200 mg ??? glucose (GLUTOSE) 40% oral geL OR dextrose 10% infusion OR glucagon (Glucagen) (1 mg/mL) injection solution 1 mg ??? sodium chloride 0.9 % (flush) flush 5 mL ??? sodium chloride 0.9 % (flush) flush 5-20 mL ??? lidocaine (Xylocaine) 1% (10 mg/mL) injection 3 mg ??? bisacodyl EC (Dulcolax) tablet 10 mg ??? bisacodyL (Dulcolax) suppository 10 mg ??? polyethylene glycoL (Miralax) packet 17 g ??? senna-docusate (Pericolace) 8.6-50 mg per tablet 2 tablet ??? ondansetron (pf) (Zofran) (2 mg/mL) injection 4 mg ??? POCT Fingerstick Glucose AND insulin lispro (HumaLOG) (100 unit/mL) subcutaneous injection vial 1-5 Units ??? acetaminophen (Tylenol) tablet 1,000 mg ??? oxyCODONE (Roxicodone) tablet 5 mg OR oxyCODONE (Roxicodone) tablet 10 mg OR oxyCODONE (Roxicodone) tablet 15 mg ??? potassium citrate SR (Urocit) tablet TbSR 20 mEq ??? furosemide (Lasix) tablet 40 mg ??? atorvastatin (Lipitor) tablet 80 mg OBJECTIVE: Temp: [36.3 ??C (97.3 ??F)-36.7 ??C (98.1 ??F)] Heart Rate: [78-84] Resp: [18-20] BP: (110-137)/(76-97) Intake/Output Summary (Last 24 hours) at 11/01/2020 0649 Last data filed at 11/01/2020 0646 Gross per 24 hour Intake 720 ml Output 1125 ml Net -405 ml BMI: Weight: (!) 169.8 kg (374 lb 6.4 oz) (11/01/20 0416) Body mass index is 53.72 kg/m??. PE: General: awake/alert, responds to questions CV: RRR Resp: Breathing comfortably on RA Left Lower Extremity Exam: Unna boot over LLE (removed) - approximately 3cm diameter ulceration noted over lateral distal leg) Skin diffusely indurated below knee Sensation intact to light touch in Saphenous/Sural/LFC/Femoral/MP/LP/T/DP/SP distributions Motor intact knee flexion/extension, ankle flexion/extension, EHL/FHL/TA Brisk capillary refill distally Lab Results Component Value Date NA 141 11/01/2020 K 4.0 11/01/2020 CL 106 11/01/2020 CO2 25 11/01/2020 BUN 19 11/01/2020 CREATININE 0.79 (L) 11/01/2020 GLUCOSE 140 11/01/2020 GLUCFASTING 130 (H) 10/09/2017 CALCIUM 9.6 11/01/2020 Lab Results Component Value Date WBC 8.1 11/01/2020 HGB 17.5 (H) 11/01/2020 HCT 54.1 (H) 11/01/2020 MCV 93.3 (H) 11/01/2020 PLATELET 251 11/01/2020 Lab Results Component Value Date INR 2.0 11/01/2020 Xray Left hip: Fracture of the Left femoral head with with small radio-opaque fragments scattered outside of the cup. No fracture or lucencies around the femoral stem. Right NAIDA with eccentric wearing of poly. ASSESSMENT / PLAN: Jaime Crouch is a 75 y.o. male with atraumatic fracture of his total hip arthroplasty ceramic head. Plan for OR for revision NAIDA today. INR 2.0 this AM, given vit. K this AM, plan for recheck INR around noon. Will plan for wound care consult for continued LE ulcer management post surgery. Appreciate medicine consult and recs. - Activity- NWB LLE - DVT prophylaxis- Hold warfarin - Antibiotics: Maddie-op - Diet - NPO Jeffrey Cuevas MD 11/01/2020 Future Appointments Date Time Provider Department Center 11/02/2020 8:45 AM [facility] DX ROOM 3 MH Xray [facility] Rad 11/02/2020 9:05 AM LAB[facility] 11/02/2020 10:00 AM Jeffrey Cuevas MD [facility] [place] [facility] [facility] 11/08/2020 8:30 AM Yaneth Sage, T [facility] V[facility] 11/08/2020 9:00 AM Delroy More MD [facility] [place] [facility] * Slim Kaiser RCP - 10/31/2020 9:01 PM EST Respiratory consult for CPAP/BIPAP. Pt. Has own machine that is a BIPAP with auto settings of IPAP MAX 22, EPAP MAX 14. Pt. Doesn't require an O2 bleed in at this time. Engineering was called to evaluate machine for safety per hospital policy. Machine was set up and humidifier chamber filled with sterile water. Pt. To use overnight, will have RN call respiratory if any complications. documented in this encounter H&P Notes * Jeffrey Cuevas MD - 11/01/2020 6:47 AM EST 24-HOUR UPDATE Jaime Crouch was seen in SDP. No interval events or changes in health status since admission H+P (see EPIC). All questions were answered. CV: RRR Resp: CTAB Jeffrey Cuevas MD * Laurent Painting MD - 10/31/2020 5:05 PM EST ORTHOPAEDIC SURGERY History and Physical NOTE ATTENDING: Alexandr CHIEF COMPLAINT: Left Hip Arthroplasty failure HPI: Jaime Crouch is a 75 y.o. male with hx of morbid obesity DM, CHf, afib on warfarin who present with left femoral head fracture in his left NAIDA. Patient reports he got up one night last week to go to the bathroom when suddenly he heard a lot of cracking and grinding coming from his left hiplike someone cracking their knuckles. Over the next few days patient continued to notice a cracking/grinding sound when ambulating so went to his PCP who ordered xray of the hips which showed fracture of the femoral head. Referred down to [facility] [place] further treatment. Patient reports he doesn't have any pain in his left hip with movement or at rest. The only change he has noticed is a reduced walking speed and range of motion of the hip. Patient Denies any fevers, chills, chest pain, shortness of breath,numbness, tingling, muscle aches or weakness. FOCUSED REVIEW OF SYSTEMS: ROS as above. There are no hospital problems to display for this patient. Active Non-Hospital Problems Diagnosis ??? Class 3 severe obesity due to excess calories with serious comorbidity and body mass index (BMI) of 60.0 to 69.9 in adult ??? Type 2 diabetes mellitus with circulatory disorder, without long-term current use of insulin ??? Pulmonary embolism ??? (HFpEF) heart failure with preserved ejection fraction ??? Chronic venous insufficiency ??? Venous stasis ulcer of left lower extremity ??? Cholangitis ??? Morbid obesity ??? CAD ??? Nonsustained ventricular tachycardia ??? Hypertension ??? Suspected cholecystitis vs cholangitis ??? Atrial fibrillation ??? TOM on CPAP ??? Phimosis ??? Nephrolithiasis FAMILY HISTORY: Negative for bleeding/clotting disorders or anesthetic complications. SOCIAL HISTORY: Social History Tobacco Use Smoking Status Former Smoker ??? Quit date: 01/21/1967 ??? Years since quittin.8 Smokeless Tobacco Never Used Social History Substance and Sexual Activity Alcohol Use Yes Comment: varies on kind, drinks maybe once a week\ Illicits: None Employment: Retired Living Situation: With MEDICATIONS: No current facility-administered medications for this encounter. ??? mupirocin (BACTROBAN) 2 % Ointment ??? warfarin (COUMADIN) 5 mg Tablet ??? potassium Citrate (UROCIT) 10 mEq (1,080 mg) Tablet Sustained Release ??? acetaminophen (TYLENOL) 500 mg Tablet ??? furosemide (LASIX) 40 mg Tablet ??? aspirin 81 mg Tablet, Delayed Release (E.C.) ??? meTOPROLOL succinate (TOPROL XL) 200 mg Tablet Sustained Release 24 hr ??? allopurinol (ZYLOPRIM) 300 mg Tablet ??? lisinopril (PRINIVIL;ZESTRIL) 20 mg Tablet ??? atorvastatin (LIPITOR) 80 mg Tablet ??? nitroGLYcerin (NITROSTAT) 0.4 mg Tablet, Sublingual OBJECTIVE: Temp: [36.3 ??C (97.3 ??F)] Heart Rate: [84] Resp: [20] BP: (137)/(82) No intake or output data in the 24 hours ending 10/31/20 1710 There is no height or weight on file to calculate BMI. PHYSICAL EXAM: Gen: Morbidly obese male, NAD, resting comfortably, AOx3 HEENT: NC, AT CV: RRR assessed peripherally Pulm: No incr WOB on RA Skin: Intact Psych: Nl mood and affect Left Lower Extremity Exam: Unna boot over LLE Limited ROM of hip Flexion limited due to pannus Crepitus/grinding felt from hip No TTP pelvis, hip, femur, knee, tib/fib, ankle, foot Painless range of motion of Hip / knee / ankle No effusion in knee / ankle Sensation intact to light touch in Saphenous/Sural/LFC/Femoral/MP/LP/T/DP/SP distributions Motor intact hip flexion/extension, knee flexion/extension, ankle flexion/extension, EHL/FHL/TA Brisk capillary refill distally Dopplerable pulses LABS: Last 3 wbc, hgb, hct plt Recent Labs 10/31/20 1500 WBC 9.0 HGB 18.6* HCT 58.3* PLATELET 265 Last 3 Lytes Recent Labs 10/31/20 1500 NA 142 K 4.1 CL 103 CO2 27 BUN 18 CREATININE 0.86 Last 3 Coags Recent Labs 10/31/20 1500 PT Not Perf INR Not Perf PTT Not Perf IMAGING: Xray Pelvis, left hip, femur: S/p bilateral NAIDA. Subsidence of the femoral component into the cup with small radio-opaque fragments scattered outside of the cup. No fracture or lucencies around the femoral stem. Right NAIDA with eccentric wearing of poly. ASSESSMENT/RECOMMENDATIONS: 75 y.o. male who presents with atraumatic fracture of his total hip arthroplasty's ceramic head. Patient has been ambulating and without pain. Plan to admit to orthopedic service for revision arthroplasty of his left hip tomorrow. Will hold warfarin for now and give vitamin K if needed. Will have hospital medicine see patient for pre-operative clearance. - Activity- NWB LLE - DVT prophylaxis- Hold warfarin - Antibiotics: Maddie-op - Diet - NPO after midnight - Discuss with Dr. Strange ?? Laurent Painting MD P. [phone] 10/31/20 5:10 PM Future Appointments Date Time Provider Department Center 11/02/2020 8:45 AM [facility] DX ROOM 3 Xray [facility] Rad 11/02/2020 9:05 AM LAB, THREE L Lab 3L [facility] 11/02/2020 10:00 AM Jeffrey Cuevas MD [facility] [place] [facility] 11/08/2020 8:30 AM Yaneth Sage RVT [facility] VAS LAB [facility] 11/08/2020 9:00 AM Delroy More MD [facility] [place] [facility] Associated attestation - Geovani Strange MD - 11/01/2020 10:07 AM EST I have seen the patient and reviewed the attached history/physical and I agree with the details as written. The assessment and plan were formulated in discussion with me and I agree with them as documented. In brief this is a 75-year-old morbidly obese gentleman with a BMI greater than 50, CHF, A. fib on warfarin, with chronic venous stasis disease in his legs with a history of Unna boots who presents with increasing grinding from his left hip. He is status post left total hip replacement sometime in the early 90s. I was actually contacted by Dr. Dominguez in [facility] via email about this patient earlier in the week. He has x-rays which demonstrate what appear to be ceramic head fracture. Thisis an old operative fix stem I believe. The patient has now been admitted through our emergency department. I had a lengthy discussion with both the patient and his about the findings. I explained that he is extraordinarily high risk for surgery. I outlined that had he shown up to my clinic for an elective joint replacement I would not offer him surgery due to his BMI, diabetes with an A1c above 7.5 and his venous stasis changes in his legs. Unfortunately now he is a fractured implant. I outlined this implant is likely continuing to disintegrate in his hip causing potentially worsening da mage. I outlined that I hope at this juncture his trunnion has not been damaged severely enough that would require removal of the stem. I outlined if that was the case he would likely require an extended trochanteric osteotomy to remove the stem in place and stem with a 9 use trunnion. I also explained potentially revising his socket due to lack of liners. I am unsure if I could get new liners for that socket and I am working on getting heads. I believe the stem has a 16/14 taper which is unique. I would consider revising his socket and potentially putting back a ceramic bearing surface to continue the ceramic on ceramic hip that I believe he has. I am unsure though if that may be a polyliner and he has had a catastrophic ceramic failure of the head and we could consider putting polyback in. I did explain that to the patient and the risks of each. I outlined below we do not use metal heads because of the ceramic potentially destroying the metal. I did outline if we were to place a plastic liner the ceramic may embedded itself within the plastic. In any event at this juncture I do not know that there is a good option short of surgery. We did discuss putting him on crutches indefinitely to try to optimize him but I am not sure how quickly we could potentially do that in my concernis that there would be worsening destruction of his trunnion potentially. At this juncture I think s urgery is warranted and we discussed potentially trying to fix this later in the day. I again voiced my concerns about his risk factors and outlined if he ended up with a complication such as an infection it could require multiple surgeries to try to eradicate it and I went through the process of atwo-stage revision. He also has a history of dislocation and states he dislocated after his initial surgery from sitting on a low chair and I outlined for all intensive purposes will have hip precautions postoperatively and will need to avoid flexing the hip beyond 90 degrees. Patient was comfortable with this plan. His was clear as well that she understands this is a high risk operation with potential for complication but they both were in agreement to proceed with surgery. All questions were answered. GEOVANI STRANGE MD, MS 11/01/2020 documented in this encounter ED Notes * Amanda Hansen PA - 10/31/2020 11:41 PM EST ED PROVIDER NOTE Patient: Jaime Crouch Age (): 75 y.o. (1945) SUBJECTIVE CC: L hip fracture HPI: Jaime Crouch is a 75 y.o. male with PMH significant for L prosthetic hip who presented to the ED for L hip fracture on OSH XR. History was obtained from the patient and medical record. Patient reports a clicking sound with movement of his left hip for the last week without any associated pain or changes in his ability to ambulate or bear weight. This prompted his orthopedist to order XRs which showed a prosthetic L hip fracture. Ortho at was engaged due to the complexity of the case and he was instructed to come to ED at [facility] for likely admission to ortho for repair. Patient continues to be at baseline without any pain, weakness, numbness/paresthesias, or otherwise any changes apart from the clicking of the hip. He denies any falls or trauma preceding this. He is otherwise at his baseline health with no new complaints or concerns. Hx: PMH, PSH, SH, and FH reviewed. ROS: A full 10 point review of systems was obtained and negative except for that included in the HPI. OBJECTIVE VS: BP 120/78 (BP Location (NBP): Left arm, Patient Position: Sitting) Pulse 78 Temp 36.5 ??C (97.7??F) (Oral) Resp 18 SpO2 95% PE: General: This is a well-nourished, well-developed male who appears his stated age. He is alert and able to participate in evaluation. NAD. Skin: Color appropriate. No rashes or lesions appreciated. Head: Atraumatic and normocephalic. Neck: Symmetrical with midline trachea. Eyes: Lids and periorbital area without edema, erythema, or lesions. Sclera anicteric, conjunctiva without swelling, erythema, injection, or exudate. EOMs grossly intact. Ears: Hearing grossly intact to normal conversation. Auricles without masses, lesions, or swelling. Chest/pulmonary: SpO2 acceptable on RA. Respirations unlabored and regular. Chest wall symmetrical without deformity. No adventitious sounds appreciated on auscultation of anterior and posterior lungfields. Cardiovascular: Regular rate and rhythm. S1 and S2 without splitting. No S3, S4, murmurs, or rubs appreciated on ausculation. Distal pulses intact and symmetrical in upper and lower extremities. No LE edema. Musculoskeletal: Gait and posture without obvious abnormality. Musculature and extremities grossly without deformity, asymmetry, erythema, effusion, or swelling. No evidence of restricted ROM or gross instability. No TTP of L hip or pelvis, femur, knee, tib/fib, ankle, foot. Diminished strength diffusely though at baseline per patient. Full sensation, NV intact. Neurological: Alert and oriented to person, place, time, and situation. Attention, concentration, language, and fund of knowledge are within expected range. Speech is fluent with normal content. No gross CN deficits, abnormal movements, or FNDs. Psychiatric: Patient cooperative with appropriate behavior, thought content, and affect. LABS: Reviewed and interpreted independently. Recent Results (from the past 72 hour(s)) Basic Metabolic Panel (non-fasting) Result Value Ref Range Glucose Lvl 128 65 - 199 mg/dL BUN 18 10 - 20 mg/dL Creatinine 0.86 0.80 - 1.50 mg/dL Sodium 142 135 - 145 mmol/L Potassium 4.1 3.5 - 5.0 mmol/L Chloride 103 98 - 107 mmol/L CO2 27 22 - 31 mmol/L Anion Gap 12 5 - 15 mmol/L Calcium 10.0 8.5 - 10.5 mg/dL Estimated GFR 86 >=60 mL/min/1.73 m?? Prothrombin Time Result Value Ref Range PT Not Perf 9.4 - 12.5 INR Not Perf APTT Result Value Ref Range PTT Not Perf 25.0 - 37.0 Hemogram Result Value Ref Range WBC 9.0 4.0 - 9.5 x10(3)/mcL RBC 6.20 (H) 4.58 - 5.54 x10(6)/mcL Hemoglobin 18.6 (H) 13.7 - 16.5 gm/dL Hematocrit 58.3 (H) 40.5 - 48.5 % MCV 94.0 (H) 82.9 - 93.1 fL MCH 30.0 27.5 - 32.1 pg MCHC 31.9 (L) 32.0 - 35.7 gm/dL Platelets 265 145 - 357 x10(3)/mcL RDWSD 55.8 (H) 36.0 - 45.0 fL RDWCV 17.2 (H) 11.4 - 13.8 % MPV 9.1 7.6 - 12.9 fL nRBC % Auto 0.0 % nRBC Abs Auto 0.000 0.000 - 0.000 x10(3)/mcL Differential, Automated Result Value Ref Range Neutrophils % 73.3 % Neutr Abs (ANC) 6.61 (H) 1 - 6 x10(3)/mcL Lymphocytes % 18.1 % Lymphocytes Abs 1.6 0.9 - 3.2 x10(3)/mcL Monocytes % 7.0 % Monocyte Abs 0.6 0.3 - 0.9 x10(3)/mcL Eosinophils % 0.9 % Eosinophils Abs 0.1 0.0 - 0.4 x10(3)/mcL Basophils % 0.4 % Basophils Abs 0.0 0.0 - 0.1 x10(3)/mcL Immature Gran % 0.30 % Do Gran Abs 0.03 0.00 - 0.04 x10(3)/mcL ABO/Rh Typing Result Value Ref Range ABORh Type O Pos Antibody screen Result Value Ref Range Ab Screen Interp Negative Expires at 2359 on: 11/03/2020 ABORH Recheck Status Result Value Ref Range ABORH Type Recheck Completed Scan, Peripheral Blood Result Value Ref Range Plat Estimate Normal RBC Morphology Normal Prothrombin Time Result Value Ref Range PT 24.1 (H) 9.4 - 12.5 sec INR 2.1 APTT Result Value Ref Range PTT 36 25.0 - 37.0 sec COVID-19 PCR Specimen: Nasopharyngeal Swab Symptoms->Surveillance Result Value Ref Range Rapid SARS-CoV-2 RNA Not Detected Not Detected SARS-CoV-2 Source [employer] Swab EKG 12 Lead Result Value Ref Range Ventricular rate 80 BPM Atrial Rate 80 BPM QRS Duration 114 ms Q-T Interval 394 ms QTC Calculated (Bezet) 454 ms Calculated R [place] -33 degrees Calculated T [place] 4 degrees INTERPRETATION Atrial fibrillation with premature ventricular or aberrantly conducted complexes Left axis deviation Septal infarct , age undetermined Inferior infarct (cited on or before 16-FEB-2007) Abnormal ECG When compared with ECG of 21-JAN-2017 16:06, Septal infarct is now Present Basic Metabolic Panel (non-fasting) Result Value Ref Range Glucose Lvl 124 65 - 199 mg/dL BUN 17 10 - 20 mg/dL Creatinine 0.72 (L) 0.80 - 1.50 mg/dL Sodium 140 135 - 145 mmol/L Potassium 3.7 3.5 - 5.0 mmol/L Chloride 102 98 - 107 mmol/L CO2 25 22 - 31 mmol/L Anion Gap 13 5 - 15 mmol/L Calcium 9.5 8.5 - 10.5 mg/dL Estimated GFR 93 >=60 mL/min/1.73 m?? Magnesium Result Value Ref Range Magnesium 0.83 0.69 - 1.07 mmol/L Phosphorus Result Value Ref Range Phosphorus 2.3 (L) 2.5 - 4.5 mg/dL Prothrombin Time Result Value Ref Range PT 24.1 (H) 9.4 - 12.5 sec INR 2.1 APTT Result Value Ref Range PTT 45 (H) 25.0 - 37.0 sec Hemogram Result Value Ref Range WBC 10.2 (H) 4.0 - 9.5 x10(3)/mcL RBC 5.92 (H) 4.58 - 5.54 x10(6)/mcL Hemoglobin 17.9 (H) 13.7 - 16.5 gm/dL Hematocrit 54.2 (H) 40.5 - 48.5 % MCV 91.6 82.9 - 93.1 fL MCH 30.2 27.5 - 32.1 pg MCHC 33.0 32.0 - 35.7 gm/dL Platelets 262 145 - 357 x10(3)/mcL RDWSD 53.5 (H) 36.0 - 45.0 fL RDWCV 16.1 (H) 11.4 - 13.8 % MPV 9.0 7.6 - 12.9 fL nRBC % Auto 0.0 % nRBC Abs Auto 0.000 0.000 - 0.000 x10(3)/mcL Differential, Automated Result Value Ref Range Neutrophils % 70.5 % Neutr Abs (ANC) 7.16 (H) 1 - 6 x10(3)/mcL Lymphocytes % 18.9 % Lymphocytes Abs 1.9 0.9 - 3.2 x10(3)/mcL Monocytes % 8.2 % Monocyte Abs 0.8 0.3 - 0.9 x10(3)/mcL Eosinophils % 1.5 % Eosinophils Abs 0.2 0.0 - 0.4 x10(3)/mcL Basophils % 0.7 % Basophils Abs 0.1 0.0 - 0.1 x10(3)/mcL Immature Gran % 0.20 % Do Gran Abs 0.02 0.00 - 0.04 x10(3)/mcL IMAGING: Reviewed and interpreted independently. XR Chest One View Final Result No acute cardiopulmonary process Thank you for letting us participate in the care of this patient. For questions regarding this report, please contact the number below. Femur 2 views Left (Generic) Final Result 1. Bilateral total hip arthroplasties 2. Interval change in alignment of the LEFT femoral arthroplasty with respect to the acetabular cup, with new high density fragments, consistent with hardware failure such as fragmentation of a prosthesis. 3. No periprosthetic fracture surrounding the femoral component stem 4. Unchanged alignment of the RIGHT hip arthroplasty. Preliminary report signed by: Doug Valiente at 10/31/2020 6:38 PM I have personally reviewed the image(s) and the resident's interpretation and agree with the findings, Seymour Galaviz MD at 10/31/2020 6:56 PM Thank you for letting us participate in the care of this patient. For questions regarding this report, please contact the number below. Pelvis (Generic) Final Result 1. Bilateral total hip arthroplasties 2. Interval change in alignment of the LEFT femoral arthroplasty with respect to the acetabular cup, with new high density fragments, consistent with hardware failure such as fragmentation of a prosthesis. 3. No periprosthetic fracture surrounding the femoral component stem 4. Unchanged alignment of the RIGHT hip arthroplasty. Preliminary report signed by: Doug Valiente at 10/31/2020 6:38 PM I have personally reviewed the image(s) and the resident's interpretation and agree with the findings, Seymour Galaviz MD at 10/31/2020 6:56 PM Thank you for letting us participate in the care of this patient. For questions regarding this report, please contact the number below. SSMENT & PLAN MDM: Jaime Crouch is a 75 y.o. male with PMH significant for pAfib, HTN, TOM, morbid obesity, CAD, T2DM, HFpEF, and L prosthetic hip who presented to the ED for L hip fracture on OSH XR. Pre-op labs obtained and without significant worrisome derangements warranting admission to , further workup, or intervention in ED. Repeat XRs to include L hip and femur obtained with fracture/hardware failure again demonstrated. NV intact on exam. Discussed with orthopedic surgery who will admit patient for repair. I do not feel that the patient warrants further diagnostics or interventions in the ED. Admitted to orthopedic surgery. ASSESSMENT: 1. L prosthetic hip fracture DISPO: Stable, admit to orthopedic surgery. Amanda Hansen PA 10/31/20 [id number] * Jeanie Shannon RN - 10/31/2020 6:51 PM EST Report to [facility]. * Jeanie Shannon RN - 10/31/2020 6:00 PM EST No s/s distress. * Jeanie Shannon RN - 10/31/2020 5:09 PM EST To x-ray via stretcher. * Bucky Jj PA - 10/31/2020 1:19 PM EST PROVIDER TRIAGE NOTE Patient: Jaime Crouch Age (): 75 y.o. (1945) CC: Broken left artifical Hip HPI: Jaime Crouch is a 75 y.o. male with PMH significant for CAD, morbid obesity, COPD, afib on coumadin, PE, CHF, who presented to the ED for a broken left artifical hip. He does not recall falling. He has been able to ambulate with his cane. He noticed his hip was painful about a week ago when walking to the bathroom. COVID-19 Screening: Symptoms [] Fever [] Cough [] SOB [x] None Exposure [] Recent travel outside [place] [] Contact with known or suspected positive individuals [x] None PE: There were no vitals taken for this visit. Patient well-appearing, no acute distress. PLAN: Labs ordered. X-ray in chart from yesterday. Repeat examination, obtain further diagnostics as indicated, and ongoing evaluation/management per ED provider. Bucky Jj PA 10/31/20 [id number] documented in this encounter Miscellaneous Notes * Consult Note - Mary Lozano RN - 11/03/2020 1:35 PM EST Images from the original note were not included. Certified Wound Care Nurse Note Unna boot applied to the left leg and Tubigrip applied to the right leg KELLI's from weeks TO Right leg: How to use Tubigrip Size G 1. Cut Tubigrip to twice the length required for limb, allowing an extra 2-3cm for overlap. 2. Pull Tubigrip onto limb like a stocking. 3. Double Tubigrip back over limb. Ensure upper edge is taken 2-3cm higher up the limb than the ?rst. 4. Check to make sure that there is no bunching or creases in the Tubigrip that may cause pressure injuries. Apply in the morning and take off at night. Check your skin once daily for any pressure related areas. To left leg: Unna???s boot instructions Change the dressing every M/F days as follows: 1. Cleanse leg with dermal wound cleanser or normal saline. 2. Apply Protective Ointment liberally to lower leg and foot with exception of wound bed. 3. Apply mepilex dressing to the wound bed. 4. Wrap lower leg with Gelocast Impregnated Gel starting at just above the toes and working in a circular fashion with a 50% overlap to just below the knees. 5. Wrap lower leg with Coban starting at just above the toes and working in a circular fashion witha 50% overlap and a 50% stretch to just below the knees. 6. Assess patient for pain, tingling or numbness to the lower extremities. Continue to follow up with your wound care center Discussed with RN: Dee Please contact Mary Lozano RN on pager [phone] or the wound care team at [phone] or pager [phone] with skin and wound care concerns or questions. * Consult Note - Benjamín Myles III, MD - 11/03/2020 7:31 AM EST Internal Medicine Initial Consult Note Admit date: Hospital day: Service: Primary Attending Consult Attending 10/31/[address] [place] [address] Medicine MD Deana Mojica MD Reason for Consult: pre-operative risk assessment Interval Events: Patient is post op day 2. Recovering well. Back on warfarin. Denies any post operative pain. Endorses no SOB or worsening swelling of his legs. Meds: No current facility-administered medications on file prior to encounter. Current Outpatient Medications on File Prior to Encounter Medication Sig Dispense Refill ??? mupirocin (BACTROBAN) 2 % Ointment ??? warfarin (COUMADIN) 5 mg Tablet take 1 tablet by mouth once daily 0 ??? potassium Citrate (UROCIT) 10 mEq (1,080 mg) Tablet Sustained Release Take by mouth 2 times daily. 2 tablets twice daily ??? acetaminophen (TYLENOL) 500 mg Tablet Take 2 tablets by mouth as needed. ??? furosemide (LASIX) 40 mg Tablet Take 40 mg by mouth 2 times daily. ??? aspirin 81 mg Tablet, Delayed Release (E.C.) Take 1 tablet by mouth daily. 30 tablet 3 ??? meTOPROLOL succinate (TOPROL XL) 200 mg Tablet Sustained Release 24 hr Take 1 tablet by mouth daily. 30 tablet 12 ??? allopurinol (ZYLOPRIM) 300 mg Tablet Take 300 mg by mouth daily. ??? lisinopril (PRINIVIL;ZESTRIL) 20 mg Tablet Take 1 tablet by mouth daily. 30 tablet 0 ??? atorvastatin (LIPITOR) 80 mg Tablet Take 80 mg by mouth daily. ??? nitroGLYcerin (NITROSTAT) 0.4 mg Tablet, Sublingual Place 0.4 mg under the tongue every 5 minutes as needed for Chest pain. Reported on 02/17/2017 Vitals: Last value Range last 24 hrs Temperature Temp: 36.4 ??C (97.5 ??F) Temp: [36.4 ??C (97.5 ??F)-37 ??C (98.6 ??F)] Heart Rate Heart Rate: 93 Heart Rate: [93-101] Blood Pressure BP: 147/86 BP: (93-149)/(62-95) Respiratory Rate Resp: 18 Resp: [17-20] SpO2 SpO2: 94 % SpO2: [93 %-95 %] I/O last 3 completed shifts: In: 2429 [P.O.:1290; I.V.:1139] Out: 2845 [Urine:2845] Examination: General: Pleasant, alert, appropriate, in NAD. Morbidly obese. HEENT: EOMI, nonicteric. Neck: No LAD. No appreciable JVD Cardiac: Normal S1 and S2, Irregular rate and rhythm. No murmurs appreciated. Respiratory: Nonlabored. Clear to auscultation bilaterally; No wheezes or crackles Abd: + BS; soft, non-tender, non-distended, no masses, no HSM. Ext: 4+ lower extremity edema. Venous stasis discoloration noted. Neuro: Alert and orientated, Laboratory: CBC: Recent Labs 11/03/2031611/02/20 0346 11/01/20 0352 WBC 11.3* 12.5* 8.1 HGB 14.7 15.0 17.5* PLATELET 225 252 251 Chemistry: Recent Labs 11/03/20 03111/02/20 0346 11/01/20 0352 NA 141 141 141 K 4.5 4.4 4.0 CL 107 106 106 CO2 23 24 25 BUN 23* 24* 19 CREATININE 0.78* 0.90 0.79* GLUCOSE 147 150 140 Recent Labs 11/03/20 0317 11/02/20 0346 11/01/20 0352 10/31/20 2252 CALCIUM 9.3 8.8 9.6 9.5 MAGNESIUM -- -- -- 0.83 PHOS -- -- -- 2.3* Coags: Recent Labs 11/03/20 0317 11/02/20 0346 11/01/20 1129 11/01/20 0352 10/31/20 2252 10/31/20 1806 10/31/20 1500 PT 21.9* 20.5* 20.8* 23.1* 24.1* 24.1* Not Perf INR 1.9 1.8 1.8 2.0 2.1 2.1 Not Perf PTT -- -- 42* -- 45* 36 Not Perf Diagnostic Studies: XR Femur 2 views, Left XR Pelvis 10/31/2020 IMPRESSION 1. Bilateral total hip arthroplasties with subsidence of the left femoral component into the acetabular cup with associated fragmentation of the acetabular cup and proximal femoral stem. 2. No periprosthetic fracture or loosening. Assessment: Jaime Crouch is a 75 y.o. male with PMHx significant for type 2 diabetes mellitus managed with oral Jardiance, ASCVD, atrial fibrillation on warfarin, gout, and TOM on home BiPAP. Medicine is consulted for pre-operative risk stratification and medical optimization prior to procedure. The patient tolerated the procedure well. He is back on his warfarin. He is back on his home lasix and appears euvolemic. His blood sugars are under control in the hospice and he has an acceptable home A1c. We would recommend restarting his home lisinopril today. On discharge his home diabetes medscan be restarted. Recommendations: Summary - Can restart home lisinopril. - Can restart home DM meds on discharge. Case was discussed with medicine consult attending, Dr. Castro Consult service will continue to follow patient. x Recommendations are above. We will sign off at this time, please page if further consultation required. Benjamín Myles III, MD Internal Medicine, PGY3 FORTUNATO Pager # [phone] Associated attestation - Amber Castro MD - 11/03/2020 9:15 AM EST Please see Dr. Myles's note for full details of the patient history of presentation and data. I have discussed, reviewed and agree with the documented History, Physical findings, Assessment and Plan of care. I have examined the patient myself and personally reviewed all studies. # HTN: Okay to restart lisinopril at home dose # DM II: Restart Jardiance upon d/c # Afib: on coumadin with goal INR: 2-3 Hospital Medicine will sign off. Amber Castro MD Hospital Medicine * Consult Note - Sara Montoya RN - 11/02/2020 11:38 AM EST Images from the original note were not included. Certified Wound Care Nurse Note Situation: Asked to see Jaime Crouch by nursing for left lower leg cellulitis. open/moist/red fungal wound under pannus and provider for panniculitis, bilateral venous stasis ulcers ([place] Background: eD-H notes reviewed for history, admitting diagnosis and active problem list. ETCHED CIRCUIT PROCESSOR at bedside assisting with patient care. Patient reports he has wound care for BLEs at the [facility] wound care clinic which provides podiatry care and Unnas boots to LLE, medigrip to RLE; [facility] wound care officedoes not provide care to his pannus. Patient reports pannus is larger at left than right; he stateshe uses bagbalm at pannus for care. Vascular Surgeon in to see patient following Wound Care consult. ABIs ordered for this patient. Wound Assessment and Care Provided: Patient greeted and reason for visit stated, patient agreed to assessment and treatment. Patient with NPWT to posterior left superior thigh s/p hip surgery. Tubigrip and nylon stocking removed from the RLE; lower leg is reddish-purple- brown and intact from knee down. LLE is iroravn-[id number]-wfqfy, mepilex border dressing at lateral lower leg above malleolus. Mepilex border dressing removed, small amount of ss drainage, no malodor; superior to wound bed is an intact bulla, approximately 1 cm x 1 cm x +0.1 cm. SAF clens/gauze used to cleanse wound bed; site is 1.6 cm x 1.6 cm x 0.1 cm. Wound bed is moist red tissue. New Mepilex border dressing to LLE site. Patient ambulating with PT/OT out of bathroom. Abdominal binder in place. Mepilex border dressing peeled back; SAF clens/guaze to gluteal fold. There is an area of moist, red injury approximately 0.7cm x 0.3 cm x <0.05; there is purple discoloration at base of gluteal fold superior to open wound bed approximately 1.5 cm x 0.1 cm. Mepilex border sacral dressing applied to base of wound. Patient in cardiac chair for pannus assessment with TAYLER Bowers, abdominal binder removed. Left Pannus lifted; the tissues are red, with intermittent areas of denuded tissue. SAF clens/gauze to cleanse creamy rueda-red residue. There are scattered erythematous satellite lesions seen at periwound edges. Mepilex Ag applied to the superior left pannus; Interdry Ag applied to the pannus, right and left with material extending 2+ inches beyond the skin fold. Pannus photo from 11/01 (media image) LLE lateral leg Negro Score: 20 Last Pressure Ulcer Prevention assessment: Shift Pressure Injury Prevention Occiput: No Injury Thoracic Spine: No Injury Sacral: No Injury Ischial - left: No Injury Ischial - right: No Injury Heel - left: No Injury Heel - right: No Injury Elbow - left: No Injury Elbow - right: No Injury Device Sites: O2 sat monitor, IV sites, SCD's/venodynes Other Sites: incisional wound vac Nutritional Status Wt Readings from Last 1 Encounters: 11/01/20 (!) 169.8 kg (374 lb 5.5 oz) Body mass index is 53.71 kg/m??. Labs Lab Results Component Value Date ALBUMIN 3.7 10/09/2017 ALBUMIN 3.4 02/17/2017 ALBUMIN 2.8 (L) 09/02/2015 HA1C 7.6 (H) 11/01/2020 HA1C 6.4 (H) 01/16/2018 HA1C 6.5 (H) 10/09/2017 WBC 12.5 (H) 11/02/2020 WBC 8.1 11/01/2020 WBC 10.2 (H) 10/31/2020 HGB 15.0 11/02/2020 HGB 17.5 (H) 11/01/2020 HGB 17.9 (H) 10/31/2020 HCT 49.1 (H) 11/02/2020 HCT 54.1 (H) 11/01/2020 HCT 54.2 (H) 10/31/2020 Nutritional Intake Nutrition Diet/Nutrition Received: regular Diet/Feeding Assistance: none Diet/Feeding Tolerance: good Intake (%): 75% Nutrition Risk Screen: no indicators present Current bed: [facility] to Bariatric Assessment: Patient with moisture associated skin breakdown at left pannus; Mepilex Ag foam to opensite for antimicrobial benefit; Interdry Ag for wicking of moisture; pannus also appears to have a fungal component. BLE appear with hemosiderin staining, consistent with venous stasis; open wound atLLE is likely venous ulcer. Base of gluteal fold presents with superficial tissue loss and light purple discoloration; cannot clearly state if this is a result of chronic moisture; application to thebase of the gluteal fold will offer wicking properties to site. Wound Care Recommendations: ABIs for application of Unnas boot to LLE Mepilex Border Sacrum dressing to sacrum-Assess beneath the dressing daily and reapply, sealing edges with skin prep. Change every 3 days and PRN: 1. Cleanse skin with dermal wound cleanser. 2. Apply Mepilex Border Sacrum dressing making sure to apply directly against the skin. 3. Seal edges with skin prep. If the Mepilex Border Sacrum needs to be changed more than once a day due to soiling then discontinue and use shield barrier wipes and apply zinc barrier cream to denuded skin Mobility: Turn and reposition every 2 hours and document in ED-H. Place a pillow above and below sacral area to off load pressure to the sacrum Offload pressure from heels by placing pillows lengthwise beneath legs while in bed. Offload pressure from heels by adjusting length of foot of bed. Activity: Implement reminder system for repositioning every two hours while in bed Limit time OOB to the chair to 1 hour intervals, 3 times a day. (Including placing bed in chair position, or having HOB higher than 30 degrees) Use a Argus chair cushion beneath patient at all times while in the chair. Reinforce teaching to shift weight every 15 minutes while in the chair. This can be done by shifting weight side to side to off load pressure to ischial tuberosities. Place a pillow at the lumbar spine to off load pressure to the sacral spine. Friction and Shear: Reposition avoiding shear forces, utilizing maxislide, trendelenberg and max inflate (boost) feature on beds to assist with repositioning. Position hips at triangle icon on bed. Use skin prep on heels and elbows bid. Keep HOB less than or equal to 30 degrees. Use Nourishing Skin Cream after baths for extra dry skin Pannus: A. Mepilex Ag foam to open skin Mepilex Ag foam dressing-nursing to change every 3 days and as needed for dressing with 50% or greater strike though drainage. 1. Cleanse wound with dermal wound cleanser and gauze. 2. Apply Mepilex Ag foam dressing B. Interdry Ag to pannus Interdry Ag - Pannus, BLLE skin folds 1. Cleanse the skin with Dermal Wound Cleanser and pat dry. 2. Measure and cut the appropriate length of textile allowing for 2 inches of textile exposure to the air on each side of the skin fold for moisture evaporation. 3. Place one edge of the textile in the base of the skin fold. Gently smooth the rest of the cloth over the skin keeping the textile flat. Gently place the skin fold together assuring that 2 inches of the textile is exposed to the air at each cut end. 4. InterDry Ag may be left in place for up to 5 days, depending on soiling, odor, amount of moisture and the general skin condition. C. Antifungal treatment per provider order Wound Care will follow for application of Unnas boots if appropriate Discussed plan with: /JODY/PA: Robinson RN: April Please contact Sara Montoya RN on pager [phone] or the wound care team at [phone] or pager [phone] skin and wound care concerns or questions. * Consult Note - Elvira Daigle MD - 11/02/2020 10:19 AM EST Patient Name: aJime Crouch Patient Age: 75 y.o. Birthdate: 1945 Admit date: 10/31/2020 Attending Physician: Geovani Strange MD Vascular Surgery Inpatient Consultation Date of Consultation: 11/02/2020 Consult Service: Vascular Surgery Place of Service: Inpatient Unit Responsible Attending: Dr. Ty Reason for Consult: We are seeing Jaime Crouch at the request of Dr. Geovani Strange MD in consultation for chronic bilateral venous stasis. I have reviewed the available records, interviewed and examined the patient. History of Present Illness: Jaime Crouch is a 75 y.o. male with a PMH significant for CAD (s/p stent), Afib (on coumadin), HLD, morbid obesity, CHF, DM and chronic bilateral venous stasis ulcers. The patient is admitted forrevision of his total hip replacement after fracture of the ceramic head, which was performed 11/01.The patient has had bilateral venous stasis wounds for several years, and reports that the right sided ulcerations have recently healed and the left sided ulcerations are significantly improved. He had been wearing bilateral Unna boots, but has switched to compression dressings on the right now that the wounds have healed on that side. He continues to wear an Unna boot on the left, however, it was removed yesterday for his orthopedic procedure. He sees wound care regularly at [facility]. The patient had [place] [facility] [place] which were normal with triphasic waveforms bilaterally. The patient was referred to see vascular surgery as an outpatient for these non healing wounds and has an appointment scheduled with Dr. More 11/08 with repeat ABIs. Vascular surgery was asked to see the patient while he is inpatient as it is difficult for him to get to [facility] given his limited mobility postoperatively and struggles with incontinence. Review of Systems: A 10 point review of systems was conducted and is negative except as above Past Medical History: Past Medical History: Diagnosis Date ??? ASCVD (arteriosclerotic cardiovascular disease) 1993 first RI 1992, stent to LAD in 2006 ??? Atrial fibrillation chronic anticoagulation ??? Chronic venous insufficiency ??? Chronic venous insufficiency 10/17/2015 ??? Class 3 severe obesity due to excess calories with serious comorbidity and body mass index (BMI) of 60.0 to 69.9 in adult 03/17/2018 ??? DVT (deep venous thrombosis) ??? HLD (hyperlipidemia) ??? Hypertension ??? Kidney stone ??? Nephrolithiasis hx of nephrostomy tube and posterior approach removal ??? TOM on CPAP ??? PE (pulmonary embolism) ??? Pre-diabetes 10/04/2017 Hemoglobin A1c 6.1 ??? Venous stasis ulcer of left lower extremity 10/17/2015 Past Surgical History: Past Surgical History: Procedure Laterality Date ??? CORONARY ANGIOPLASTY WITH STENT PLACEMENT 2006 LAD ??? CYSTOSCOPY for BPH ??? KIDNEY STONE SURGERY Left removal of stones: nephrolithotomy ??? LITHOTRIPSY ??? PRO ERCP,DIAGNOSTIC N/A 09/09/2014 ERCP performed by Nick Broussard MD at [facility] ENDOSCOPY ??? PRO ERCP,DIAGNOSTIC N/A 08/30/2015 ERCP performed by Nick Broussard MD at [facility] MAIN OR ??? PRO ERCP,DIAGNOSTIC N/A 08/30/2015 ERCP performed by Nick Broussard MD at [facility] ENDOSCOPY ??? PRO LAP, CHOLECYSTECTOMY N/A 09/01/2015 LAPAROSCOPIC CHOLECYSTECTOMY performed by Esha Moon MD at [facility] MAIN OR ??? TOTAL HIP ARTHROPLASTY Bilateral Social History: Social History Socioeconomic History ??? Marital status: Spouse name: None ??? Number of children: None ??? Years of education: None ??? Highest education level: None Occupational History ??? None Tobacco Use ??? Smoking status: Former Smoker Quit date: 01/21/1967 Years since quittin.8 ??? Smokeless tobacco: Never Used Substance and Sexual Activity ??? Alcohol use: Yes Comment: varies on kind, drinks maybe once a week\ ??? Drug use: No ??? Sexual activity: Not Currently Other Topics Concern ??? None Social History Narrative ??? None Social Determinants of Health Financial Resource Strain: ??? Difficulty of Paying Living Expenses: Not on file Food Insecurity: ??? Worried About Running Out of Food in the Last Year: Not on file ??? Ran Out of Food in the Last Year: Not on file Transportation Needs: ??? Lack of Transportation (Medical): Not on file ??? Lack of Transportation (Non-Medical): Not on file Physical Activity: ??? Days of Exercise per Week: Not on file ??? Minutes of Exercise per Session: Not on file Family History History reviewed. No pertinent family history. Home Medications: No current facility-administered medications on file prior to encounter. Current Outpatient Medications on File Prior to Encounter Medication Sig Dispense Refill ??? mupirocin (BACTROBAN) 2 % Ointment ??? warfarin (COUMADIN) 5 mg Tablet take 1 tablet by mouth once daily 0 ??? potassium Citrate (UROCIT) 10 mEq (1,080 mg) Tablet Sustained Release Take by mouth 2 times daily. 2 tablets twice daily ??? acetaminophen (TYLENOL) 500 mg Tablet Take 2 tablets by mouth as needed. ??? furosemide (LASIX) 40 mg Tablet Take 40 mg by mouth 2 times daily. ??? aspirin 81 mg Tablet, Delayed Release (E.C.) Take 1 tablet by mouth daily. 30 tablet 3 ??? meTOPROLOL succinate (TOPROL XL) 200 mg Tablet Sustained Release 24 hr Take 1 tablet by mouth daily. 30 tablet 12 ??? allopurinol (ZYLOPRIM) 300 mg Tablet Take 300 mg by mouth daily. ??? lisinopril (PRINIVIL;ZESTRIL) 20 mg Tablet Take 1 tablet by mouth daily. 30 tablet 0 ??? atorvastatin (LIPITOR) 80 mg Tablet Take 80 mg by mouth daily. ??? nitroGLYcerin (NITROSTAT) 0.4 mg Tablet, Sublingual Place 0.4 mg under the tongue every 5 minutes as needed for Chest pain. Reported on 02/17/2017 Allergies Allergies Allergen Reactions ??? Metformin Physical Exam: Temp: [36.3 ??C (97.3 ??F)-36.9 ??C (98.4 ??F)] Heart Rate: [88-106] Resp: [14-21] BP: (101-140)/(53-90) SpO2: [92 %-100 %] Heart Rate from SpO2: [72 bpm-102 bpm] General: NAD, resting comfortably, obese HEENT: normocephalic, atraumatic CVS: Regular rate Pulm: Clear bilaterally Abd: soft, non tender, non distended Ext: RLE: Mild-moderate edema. Chronic venous stasis skin changes. No wound. Palpable DP/PT LLE: Mild-moderate edema. Chronic venous stasis skin changes. Ulceration to distal lateral calf with more proximal superficial skin defect. Prevena wound vac in place over ortho incision. Palpable DP/PT Neuro: No focal deficits Labs: Last wbc, hgb, hct plt Recent Labs 11/02/20 0346 WBC 12.5* HGB 15.0 HCT 49.1* Last 3 Lytes Recent Labs 11/02/20 0346 11/01/20 0352 10/31/20 2252 NA 141 141 140 K 4.4 4.0 3.7 CL 106 106 102 CO2 24 25 25 BUN 24* 19 17 CREATININE 0.90 0.79* 0.72* Last 3 Coags Recent Labs 11/02/20 0346 11/01/20 1129 11/01/20 0352 10/31/20 2252 10/31/20 1806 PT 20.5* 20.8* 23.1* 24.1* 24.1* INR 1.8 1.8 2.0 2.1 2.1 PTT -- 42* -- 45* 36 Vascular Lab Studies: ABIs 10/17/2015: Findings: Right ?Pressure (mm Hg) ?? KELLI ??Waveform ? Brachial Artery ?127 ? Dorsalis Pedis (Ankle) Artery ?142 ? 1.01 ??Triphasic ? Posterior Tibial (Ankle) Artery ??151 ? 1.07 ??Bi-Triphasic ?? Left ? Pressure (mm Hg) ?? KELLI ??Waveform ?? Brachial Artery ?141 ? Dorsalis Pedis (Ankle) Artery ?152 ? 1.08 ??Triphasic ?? Posterior Tibial (Ankle) Artery ??143 ? 1.01 ??Triphasic ?? Interpretation: RIGHT: No significant lower extremity arterial occlusive disease identifiable at rest. Normal ankle/brachial pressure ratios and ankle Doppler waveforms. LEFT: No significant lower extremity arterial occlusive disease identifiable at rest. Normal ankle/brachial pressure ratios and ankle Doppler waveforms. Assessment/Recommendations: Jaime Crouch is a 75 y.o. male admitted with revision of his left hip replacement with orthopedics surgery who has a longstanding history of venous stasis disease and ulceration which has primarily been managed by wound care at [facility]. The patient has never seen a vascular surgeon, but was referred to see Dr. More as an outpatient next week with ABIs to assess for an arterial component to his non healing wounds. On exam, the patient has palpable pedal pulses, and so is unlikely to have compromised arterial flow to the degree that would cause poor wound healing. The patient does not believe he has ever had venous insufficiency studies, however, would likely benefit from this to determine whether he would be a candidate for vein ablation. As the patient's wounds on the right are healed and are significantly improved on the left, and do not appear to be infected, there is no urgency to venous insufficiency testing or vascular intervention. In speaking to the patient, he would prefer to wait until he has recovered from his orthopedic procedure before further working up his venous disease. The patient stated that he would like to call the clinic when he is ready to schedule an appointment, and we discussed with him that he should wait at least four weeks before calling to give him adequate time to fully recover from his current hospitalization. For wound care, we recommend continuing with the Unna boot on the left while the wound remains open. We discussed compression stockings with the patient for the right leg, and recommend knee high stockings 20-30 mmHg if the patient is able to tolerate that strength. He can wear compression stockings bilaterally once the wound on his left leg is healed. The patient should continue seeing wound care at [facility] once discharged, as he is. Elvira Daigle MD Vascular Surgery Consult service will continue to follow patient. Please page [phone] (day) or [phone] (night) with questions/concerns x Recommendations are above, please page if further consultation required. Associated attestation - Amber Ty MD - 11/03/2020 7:17 AM EST Pt seen and examined with vascular resident and I agree with findings. His physical exam in consistent with venous insufficiency. No evidence of arterial insufficiency. We will continue work-up as an outpatient once he has recovered from his recent surgery. * Plan of Care - Vilma Archer RN - 11/02/2020 3:51 AM EST OUTCOME EVALUATION NOTE: OUTCOME SUMMARY: Pt A&OX4. VSS on RA/CPAP overnight. No c/o chest pain or SOB. Pain adequately controlled w/ scheduled meds. Incisional wound vac in place. NV checks benign. BG managed appropriately. Dressing to abd c/d/i w/ abd binder in place. Haque pulled this AM. No acute events. Bed alarm set. Will cont tomonitor. PLAN MOVING FORWARD: Pain management Mobility Dc planning INDIVIDUALIZED FALL PREVENTION INTERVENTIONS: Patient-specific fall risk factors per assessment: [current deficits]: Hospital environment, generalized weakness, pain, lines/drains Assistance [level of assistance required for transfers and ambulation]: Not OOB yet Supervision [direct monitoring required during toileting and ADLs]: Hands on Surveillance [continuous indirect monitoring]: ROGELIO Mitchell, hourly rounding, bed alarm, call estevez within reach Patient-specific fall prevention interventions for sensory deficits provided, if applicable: [X] N/A * Op Note - Geovani Strange MD - 11/01/2020 2:22 PM EST Images from the original note were not included. [facility] [place] Patient Name: Jaime Crouch : [id number] MR#: [id number] Case Date: 11/01/2020 Surgeon: Surgeon(s) and Role: * Geovani Strange MD - Primary * Jeffrey Cuevas MD - Fellow * Delroy Brooks PA - Physician Mash Filter Operator Preoperative diagnosis: Left Femoral Head component fracture Postoperative diagnosis: Left Femoral Head component fracture, catastrophic poly failure, morbid obesity BMI>50 Procedure(s) (LRB): TOTAL HIP REVISION ARTHROPLASTY, COMPLETE (WRVU 30.28) (Left) MODIFIER PINNACLE ACETABULUM DEPUY (N/A) Modifiers: 22: Increased procedural services (BMI > 50 requiring a much larger exposure than usual) Anesthesia: General IVF: 2500ml of crystaloid Estimated Blood Loss: 550ml Urine Output: 400ml Drains: none Specimens removed during surgery: Order Name Source Comment Collection Info Order Time SPECIMEN TO PATHOLOGY Scar and synovium rule out infection OR 12 [id number] Left Femoral Head component fracture scar and synovium rule out infection excision 11/01/2020 2:35 PM Time specimen removed from patient: 2:34 PM Number of tissue samples (in container) 1 Surgical Closure: Primary Closure - skin incision is completely closed without any wires, dee, drains or other devices Complications: None apparent Indications for the Procedure: Mr. Crouch is a 75 y.o. year old male with a history of a left total hip replacement. He is a medically complex patient with a BMI greater than 50, chronic anticoagulation for A. fib, venous stasis open ulcers on his left lower extremity which have had treatment with Unna boots, and diabetes with an A1c greater than 7.5 who presents with grinding in his left hip replacement. Radiographs show thathe had catastrophic failure of the ceramic head with head fracture. I was contacted initially by Scott Dominguez in [facility] who assumed care of this patient due to the complexity. Patient was seen in our emergency department and subsequently admitted to the hospital. Despite his medical complexity is at high risk of any surgical intervention it was felt that the only remaining option was surgical. A detailed conversation regarding the risks and benefits of hip revision surgery was had with the patient. The risks discussed included but were not limited to: bleeding (which may or may not req uire transfusion), infection, damage to nerves or blood vessels, deep venous thrombosis, pulmonary embolus, prosthetic failure, loosening, prosthetic fracture, femur or pelvic fracture, dislocation, leg-length inequality, persistent pain, need for future surgery, medical complications (including car diac, respiratory and neurologic complications), anaesthetic complications, and . Subsequent to this conversation, all of the patient???s questions were answered in great detail and informed consent was obtained for a left total hip arthroplasty revision. He received preoperative medical clearance and was felt optimized for surgery. Today, he identified the left hip as the correct operative side. Implants: Acetabulum: Depuy Sector 62mm Femoral Stem: Retained Optifix Liner: Depuy Size [id number] biolox Femoral Head: 36mm +4 Oxinium Intraoperative Findings: Hip filled with black metal stained fluid and debris. Not enough fluid forcell count. Fluid was sent for culture. Significant osteolysis of the trochanter required extensivedebridement with metal stained debris. The ceramic head was shattered in multiple pieces and removed in piecemeal. There was catastrophic wear of the polyliner with wear through. My presumption is the ceramic head was articulating with the metal socket and fractured. As the socket was so old we didnot have liners available. The socket was removed and a new socket was placed with a ceramic liner.An Oxinium head was placed on a well fixed femoral stem to try to minimize wear of the implants from potential microscopic ceramic debris in the hip joint. Hip was stable at the end of the case to 90o flexion, 45o internal rotation, 10o adduction. This patient has morbid obesity with a BMI >40. This made the operation significantly more difficult and increased the duration of the operation. Specifically, it was much more difficult to obtain exposure and to perform the brandon parts of the operation because of this patient???s obesity. Patient positioning was extraordinarily challenging due to the patient's size. We had to use the toboggan to support his large pannus. Upon lifting his pannus there was a pungent aroma encounter with severe skin breakdown and open broken bleeding skin. The smell was significant from this area and will need wound care intervention. Procedure: The patient was met prior to surgery where the appropriate site was marked, 24 hour update completed, and the pre-operative checklist completed. He was then brought to the operating room on a stretcher where the above anesthetic was administered. A haque catheter was introduced under sterile conditions He was transferred to the operating table where he was then transitioned to the lateral decubitus position with the operative leg up. The hips were held in place with well padded hip positioners. Positioning was quite challenging due to his massive size. We needed to use the toboggan's to help support his abdomen is hung off the table. Upon lifting his pannus there is significant skin breakdown and a pungent odor coming from under his pannus. There was severely inflamed broken down foul-smelling skin. An axillary roll was placed and all bony prominences were well padded. The non-operative leghad a venodyne in place. The operative leg was then prepped with chlorhexidine scrub followed by alcohol and DuraPrep. Once the prep was dry the leg was draped in a sterile fashion. A clinical time-out was held confirming the correct patient name, MRN, , planned procedure, site, antibiotic start time and agent, and outline of any surgical concerns. All in attendance were in agreement to proceed. Weight based dosing of tranexamic acid was administered prior to making an incision. Surgical Approach: A posterior approach to the hip was then undertaken. The skin was infiltrated with 10cc of 0.25% marcaine plain. The old scar was excised. The subcutaneous tissue was dissected sharply. Hemostasis was maintained using the electrocautery. The fascia overlying the gluteus israel and IT band was ident ified and incised in-line with it's fibers. The decussation of the gluteus israel and TFL muscle fibers were then split bluntly. Full thickness flaps of IT band were created anterior and posterior. The sciatic nerve was identified and protected throughout the case. A charnely bow retractor was then placed to retract the fascia taking caution to protect the nerve posteriorly. Any fat pad and bursal tissue was swept off the posterior capsular structure. A 18g needle and syringe was then used to aspirate the hip joint. Less than 1 cc of black stained fluid was encountered. This was sent for culture. The subcutaneous tissues and muscle was then infiltrated with a combination of 0.25% marcaine, 50mcg of clonidine and 30mg of toradol. A total of 50cc was used throughout the case. A posterior longitudinal capsulotomy was then performed by elevating the posterior capsular structures off the back of the femur preserving this one thick flap for later repair at the time of closure. The capsule was released down towards the proximal portion of the quadratus and angled about 45o po sterior and proxmially from the posterior tip of the trochanter up on to the acetabulum being cautions to protect the abductors. Two #3 Vicryl tagging sutures were placed in the posterior soft tissuestructures for later repair. An extensive synovectomy was performed posterior and anterior to adequately identify the prosthesis. The scar and synovium was sent to pathology for analysis. A plane deep to the abductors was created with a lennon elevator and a retractor was placed anteriorly. Once the capsule was opened the prosthesis was identified. The capsule and scar was released off the bone andthe hip with then atraumatically dislocated. It was clear that the ceramic head had fractured and was not multiple pieces. All of the shards of ceramic were removed in piecemeal. There was significant metallosis within the hip joint. We continued our synovectomy to try to remove any metal stained debris or ceramic from the hip. There was metal debris all within the trochanter and down the posterior aspect of the femur. This was debrided using combination of curettes and a rongeur. The trochanter was a wafer of bone and after the debridement was quite thin. The trunnion was scratch significantly from the wear through but still appeared usable. The femoral stem was inspected and noted to be well fixed. We continued the synovectomy anterior tocreate a pocket for the femoral stem. The femoral stem was then placed anterior to the acetabulum and held there with a retractor. A second retractor was placed in the obturator foramen. We continuedour synovectomy circumferentially around the cup to fully expose it. At that point the liner was removed from the acetabular socket using a 1/2 inch osteotome and mallet. The liner was fractured around the rim and worn through superiorly. It appeared as if the ceramichead had been articulating with the metal as it had worn through the liner enough likely what led to the ceramic fracture. I was unable to get the screws out of the cup as they were just spinning Denisha cannot back them out. One of the screw heads was impacted with plastic from the polyliner and I cannot get it removed either. I then used the curved gouges and the Fabiana explant to create interface between the implant and the bone being careful to work around the screws. Ultimately I was able tofree the implant from the bone and remove the acetabulum. I then curetted out the bone and used a Lennon to clear the bone of any debris. I then sequentially reamed up to 60 mm and encountered a good bed of bleeding bone. At that point I copiously irrigated the wound. A 62 mm sector cup was then impacted and noted to seat fully. The Sputnik was used to aid in intraoperative cup position. Happy withthe cup position I then placed 3 screws with good purchase. At that point we irrigated the cup. A 36 mm ceramic liner was then placed and impacted. It was noted to seat fully. As this was an old stemwith a 16 x 14 taper mildly options for 36 mm heads were 36+0 and 36+4. Due to the patient's history of instability I elected to place a 36+4 Oxinium head onto a cleaned and dried Vale taper. The hip was then atraumatically reduced and brought through full range of motion. The hip was stable up to90 degrees of flexion and 10 degrees of internal rotation. Closure: The wound was copiously irrigated. Stimulant antibiotic beads were packed into the trochanter. The posterior capsular structures were repaired using the #3 Vicryl placed earlier through drill holes in the trochanter. The wound was irrigated again. The remaining pericapsular injection was infiltrated. The IT band fascia was tacked together with a 0 Vicryl, the second half of the stimulant beads were then placed under the IT band. The stimulant was mixed with 1 g of vancomycin and 1.2 g of tobramycin. The IT band was then over sewn with a #2 running barbed suture. The wound was irrigated again and the deep tissues were closed using a 0 vicryl. A 2-0 vicryl was used to close the subcutaneous la parth. The skin was closed with nylon. A sterile Mepilex Ag dressing was applied to the wound. The needle, sponge and instrument counts were correct at the end of the procedure. The patient was then transferred back to the stretcher where a venodyne was placed on the operativeleg. An abduction pillow was placed. Attestation: Case Date: 11/01/2020 I performed this procedure without the involvement of a resident. This case was performed with a Physician Mash Filter Operator who was critical for patient positioning and retraction during the case as well as assisting with closure because no additional qualified resident was available. Jeffrey Cuevas MD was critical for patient positioning and retraction during the case as well as assisting with closure because no qualified resident was available. GEOVANI STRANGE MD 11/01/2020 Post-operative Plan: (avoid IV narcotics) ?? 5-10 mg Oxycodone Q 4 hours po PRN ?? for breakthrough pain 15 mg Toradol iv or im q 6 hours (max 4 doses) ?? 1000mg Tylenol po??? q8 hour ?? Celebrex 200 mg po q 12 hours while in house with transition to Naprosyn 500mg bid at discharge ?? SSI ?? Wound care consult (see image below) ?? Protonix 20mg qd x 2 weeks (or other PPI) ?? Zofran 4 mg po/iv q 8 hours PRN nausea ?? D/C Haque catheter in PACU or upon arrival to floor if concern for fluid status ?? Encourage voiding q 4 hours. If unable to void bladder scan and encourage to void in 30 minutes.If PVR > 400 then straight cath. ?? AP Pelvis in PACU ?? Perioperative prophylactic antibiotics for the next 24 hours the 1 week of PO Ancef ?? Weight bearing status of operative extremity: Weight bearing as tolerated Posterior hip precautions with an abduction pillow while in bed ?? Wound closure: Nylon with Prevana ?? Dressing changes: Mepilex Silver (Do not change for 7 days then a dry sterile dressing). ?? Follow-up Plan: Wound check in 2 weeks ?? Anticoagulation: Coumadin ?? Any possible barriers to discharge: Likely to require SNF ?? Plan for hospital stay: Standard and Follow cultures ?? Anticipated Length of Stay: 2-3 days Implant Summary: Implant Name Type Inv. Item Serial No. Asphalt Mixer Lot No. LRB No. Used Action GRAFT BONE FILLER 10ML CALCIUM SULFATE POWDER INJECTABLE ([id number]) - [id number] IMPLANTS GRAFT BONEFILLER 10ML CALCIUM SULFATE POWDER INJECTABLE ([id number]) [employer] - BIOCOMPOSI [id number] 1 Implanted SHELL ACET HIP 62MM POR CTD MULTI HOLE TI PINNACLE GRIPTION ([id number]) (AUTOREQ) - [id number] IMPLANTS SHELL ACET HIP 62MM POR CTD MULTI HOLE TI PINNACLE GRIPTION ([id number]) (AutoReq) [employer] BHARAT [id number] Left 1 Implanted SCREW HIP ACET 6.5X20MM FT CANC HEX DRV TI PINNACLE ([id number]) (AutoReq) - [id number] IMPLANTS SCREWHIP ACET 6.5X20MM FT CANC HEX DRV TI PINNACLE ([id number]) (AutoReq) [employer] BHARAT [id number] Left 1 Implanted LINER ACET HIP [id number] 0D STND CERAMIC CERAMAX ([id number]) (AUTOREQ) - [id number] IMPLANTS LINER ACETHIP [id number] 0D STND CERAMIC CERAMAX ([id number]) (AutoReq) [facility] BHARAT [id number] Left 1 Implanted SCREW HIP ACET 6.5X25MM FT CANC HEX DRV TI PINNACLE ([id number]) (AUTOREQ) - [id number] IMPLANTS SCREWHIP ACET 6.5X25MM FT CANC HEX DRV TI PINNACLE ([id number]) (AutoReq) [facility] BHARAT [id number] Left 1 Implanted DEPUY, PINNACLE, CANCELLOUS BONE SCREW, [id number] Left 1 Implanted CAUSEY & NEPHEW, OXINIUM, 36MM O.D., +4, TAPER FEMORAL HEAD [id number] Left 1 Implanted * Plan of Care - Noe Ny RN - 11/01/2020 3:42 AM EST OUTCOME EVALUATION NOTE: OUTCOME SUMMARY: Patient ax4, denies cp, sob, n/v, n/t. Patient denies pain throughout shift. Patient tolerating meal before being npo at midnight. Voiding in the bathroom or urinal. Patient up out of bed as sba withcane. CPAP on while sleeping. Q4 nvc obtained, see docflow. PLAN MOVING FORWARD: Pain control Mobilize Q4 nvc D/c planning INDIVIDUALIZED FALL PREVENTION: Patient is currently a high risk to Fall. Patient educated on bed/chair alarm, demonstrates proper use of call estevez and verbalizes understanding of fall preventions implemented. Patient-specific fall risk factors per assessment: [current deficits]: Pain, Medications, Hospital Environment. Assistance [level of assistance required for transfers and ambulation]: sba w/ cane Supervision [direct monitoring required during toileting and ADLs]: minimal assistance with ADL's Surveillance [continuous indirect monitoring]: bed/chair alarm, Masimo, Purposeful Rounding, Nurse Knowledge Exchange Patient-specific fall prevention interventions for sensory deficits provided, if applicable: n/a * Consult Note - Edward Swanson MD - 10/31/2020 8:56 PM EST Internal Medicine Initial Consult Note Admit date: Hospital day: Service: Primary Attending Consult Attending 10/31/2020 0 [facility] Medicine MD Deana Mojica MD Reason for Consult: pre-operative risk assessment HPI: Jaime Crouch is a 75 y.o. male with PMHx significant for pre-diabetes, HTN, a.fib w/RVR on warfarin for stroke PPx, morbid obesity, TOM, HFpEF, and ASCVD. He is being admitted for an atraumatic fracture of his total hip arthroplasty's femoral head and revision arthroplasty to take place tomorrow (11/01). Medicine is consulted for pre-operative risk stratification and medical optimization. Last Friday, he noticed that he had noticed that his left hip had been making cracking noises while he was ambulating to the bathroom. He notes that his last injury was a year and a half ago, whenhe had a fall. He denies any issues, cracking sounds, or pain at that time. He denies headaches, lightheadedness, dysphagia, chest pain, dyspnea. He denies palpitations. He isable to ambulate at home and is able to get around his house with a cane. He is able to help out with some office clerk assistant. He denies cough, hemoptysis, or productive sputum. He notes occasional rhinorrhea in the morning, but it is self-limited to the AM hours. He denies abdominal pain, nausea, vom iting. He notes frequent urination, but has not been diagnosed with BPH. He takes Jardiance, and notes occasional bowel incontinence as a result. He notes that he gets dyspneic with exertion. He notes that he cannot ambulate very far without becoming dyspneic and he has been deconditioned over time. He is on Jardiance by his PCP, and notes that his last HbA1c was approximately 7, taken a year ago. His PCP is Delroy Nettles, in [place], [place]. Past Medical History/Problem List Patient Active Problem List Diagnosis Code ??? Nephrolithiasis N20.0 ??? Phimosis N47.1 ??? Hypertension I10 ??? Suspected cholecystitis vs cholangitis K81.9 ??? Atrial fibrillation I48.91 ??? TOM on CPAP G47.33, Z99.89 ??? Morbid obesity E66.01 ??? CAD I25.10 ??? Nonsustained ventricular tachycardia I47.2 ??? Cholangitis K83.09 ??? Chronic venous insufficiency I87.2 ??? Venous stasis ulcer of left lower extremity I83.029, L97.929 ??? Pulmonary embolism I26.99 ??? (HFpEF) heart failure with preserved ejection fraction I50.30 ??? Type 2 diabetes mellitus with circulatory disorder, without long-term current use of insulin E11.59 ??? Class 3 severe obesity due to excess calories with serious comorbidity and body mass index (BMI) of 60.0 to 69.9 in adult E66.01, Z68.44 ??? 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 ASCVD (arteriosclerotic cardiovascular disease) 1993 first RI 1992, stent to LAD in 2006 ??? Atrial fibrillation chronic anticoagulation ??? Chronic venous insufficiency ??? Chronic venous insufficiency 10/17/2015 ??? Class 3 severe obesity due to excess calories with serious comorbidity and body mass index (BMI) of 60.0 to 69.9 in adult 03/17/2018 ??? DVT (deep venous thrombosis) ??? HLD (hyperlipidemia) ??? Hypertension ??? Kidney stone ??? Nephrolithiasis hx of nephrostomy tube and posterior approach removal ??? TOM on CPAP ??? PE (pulmonary embolism) ??? Pre-diabetes 10/04/2017 Hemoglobin A1c 6.1 ??? Venous stasis ulcer of left lower extremity 10/17/2015 Meds: No current facility-administered medications on file prior to encounter. Current Outpatient Medications on File Prior to Encounter Medication Sig Dispense Refill ??? mupirocin (BACTROBAN) 2 % Ointment ??? warfarin (COUMADIN) 5 mg Tablet take 1 tablet by mouth once daily 0 ??? potassium Citrate (UROCIT) 10 mEq (1,080 mg) Tablet Sustained Release Take by mouth 2 times daily. 2 tablets twice daily ??? acetaminophen (TYLENOL) 500 mg Tablet Take 2 tablets by mouth as needed. ??? furosemide (LASIX) 40 mg Tablet Take 40 mg by mouth 2 times daily. ??? aspirin 81 mg Tablet, Delayed Release (E.C.) Take 1 tablet by mouth daily. 30 tablet 3 ??? meTOPROLOL succinate (TOPROL XL) 200 mg Tablet Sustained Release 24 hr Take 1 tablet by mouth daily. 30 tablet 12 ??? allopurinol (ZYLOPRIM) 300 mg Tablet Take 300 mg by mouth daily. ??? lisinopril (PRINIVIL;ZESTRIL) 20 mg Tablet Take 1 tablet by mouth daily. 30 tablet 0 ??? atorvastatin (LIPITOR) 80 mg Tablet Take 80 mg by mouth daily. ??? nitroGLYcerin (NITROSTAT) 0.4 mg Tablet, Sublingual Place 0.4 mg under the tongue every 5 minutes as needed for Chest pain. Reported on 02/17/2017 Warfarin - Cul-Ygt-Cbll-Friday - 4mg; Fri- 5mg Furosemide 40mg b.i.d - does not titrate based on weight Takes Does not take aspirin Night-time medications: - Potassium citrate - Furosemide 40mg - Atorvastatin 80mg - Warfarin as above, takes in the evening Allergies: Allergies Allergen Reactions ??? Metformin Past Surgical History Past Surgical History: Procedure Laterality Date ??? CORONARY ANGIOPLASTY WITH STENT PLACEMENT 2007 LAD ??? CYSTOSCOPY for BPH ??? KIDNEY STONE SURGERY Left removal of stones: nephrolithotomy ??? LITHOTRIPSY ??? PRO ERCP,DIAGNOSTIC N/A 09/09/2014 ERCP performed by Nick Broussard MD at [facility] ENDOSCOPY ??? PRO ERCP,DIAGNOSTIC N/A 08/30/2015 ERCP performed by Nick Broussard MD at [facility] MAIN OR ??? PRO ERCP,DIAGNOSTIC N/A 08/30/2015 ERCP performed by Nick Broussard MD at [facility] ENDOSCOPY ??? PRO LAP, CHOLECYSTECTOMY N/A 09/01/2015 LAPAROSCOPIC CHOLECYSTECTOMY performed by Esha Moon MD at [facility] MAIN OR ??? TOTAL HIP ARTHROPLASTY Bilateral Social History: Tobacco: Quit smoking 50 years ago, was a 1 pack per day smoker. Etoh: 1 drink every 2 weeks. Illicits: No illicit drug use. Living Situation: Lives at home with his , Leah of 38 years. 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 Vitals: Last value Range last 24 hrs Temperature Temp: 36.7 ??C (98.1 ??F) Temp: [36.3 ??C (97.3 ??F)-36.7 ??C (98.1 ??F)] Heart Rate Heart Rate: 78 Heart Rate: [78-84] Blood Pressure BP: (!) 116/97 BP: (116-137)/(82-97) Respiratory Rate Resp: 20 Resp: [20] SpO2 SpO2: 96 % SpO2: [96 %-97 %] No intake/output data recorded. Examination: General: Pleasant, alert, appropriate, in NAD. HEENT: EOMI, nonicteric. Oropharynx clear w/o erythema, plaques or exudates or other lesions. No thrush; MMMs. Neck: No LAD. No appreciable JVD, but exam limited by habitus. Cardiac: Normal S1 and S2, Irregular rate and rhythm. No murmurs appreciated. Respiratory: Nonlabored. Clear to auscultation bilaterally; No wheezes or crackles Abd: + BS; soft, non-tender, non-distended, no masses, no HSM. Ext: No pitting edema appreciated, although patient was wearing compression stockings. Venous stasis discoloration noted. Neuro: II-XII grossly intact. Alert and orientated, no-focal deficits, sensation intact to crude touch, motor strength 5/5 throughout Laboratory: CBC: Recent Labs 10/31/20 1500 WBC 9.0 HGB 18.6* PLATELET 265 Chemistry: Recent Labs 10/31/20 1500 NA 142 K 4.1 CL 103 CO2 27 BUN 18 CREATININE 0.86 GLUCOSE 128 Recent Labs 10/31/20 1500 CALCIUM 10.0 Coags: Recent Labs 10/31/20 1806 10/31/20 1500 PT 24.1* Not Perf INR 2.1 Not Perf PTT 36 Not Perf Diagnostic Studies: XR Femur 2 views, Left XR Pelvis 10/31/2020 IMPRESSION 1. Bilateral total hip arthroplasties with subsidence of the left femoral component into the acetabular cup with associated fragmentation of the acetabular cup and proximal femoral stem. 2. No periprosthetic fracture or loosening. Assessment: Jaime Crouch is a 75 y.o. male with PMHx significant for type 2 diabetes mellitus managed with oral Jardiance, ASCVD, atrial fibrillation on warfarin, gout, and TOM on home BiPAP. Medicine is consulted for pre-operative risk stratification and medical optimization prior to procedure. Based on his NSQIP Surgical Risk Calculator, he is average risk for serious complication (9.8% riskvs. 9.3% average) and he is above average risk for any complication (11.0% vs. 9.8% average). His revised Cardiac Index is 1, showing Class II risk. In regards to his maddie-operative anticoagulation management, he will need his INR to be optimized based on the surgical teams goals (? <1.5). We will hold his warfarin, and trend his INR. If needed, low dose oral vitamin K can be provided. In regards to his medical co-morbidities, it does not appear that he has an active primary lung pathology. We will continue with his home BiPAP for his TOM. In regards to his history of HFpEF, he does have dyspnea with ambulation of a distance of 1/8th of a mile, but this has been stable over the past year. He does not appear to be in decompensated heart failure given that he has not had a significant reduction in his functional capacity, does not appear volume overloaded, and is not dyspneic at rest or requiring oxygen. In regards to his atrial fibrillation, we will continue with his home dose of metoprolol succinate (200mg) and will hold on his warfarin as indicated above. Finally, in regards to his T2DM. We should obtain an HbA1c as he appears to be overdue. We should hold his jardiance and start him on a sensitive sliding scale with glucose checks. Recommendations: Summary - Hold warfarin, trend INR. Can administer low dose PO vitamin K if needed to get INR below goal. - Hold home Jardiance, start glucose checks and sensitive SSI. - Hold lisinopril in the maddie-operative setting. - Does not appear to have clinical evidence of heart failure exacerbation. However, can continue home lasix dosing to keep him euvolemic with close monitoring of daily weights and BMPs. #Fracture of Left Femoral Arthroplasty - NSQIP surgical risk factors as above - Revised cardiac index is 1 based on prior ASCVD #Atrial Fibrillation w/RVR - Continue metoprolol succinate 200mg Qday. - Hold on Warfarin, dosing schedule indicated above. - Trend INR, can provide low-dose oral vitamin K if INR remains above surgical goal. - F/u EKG. #Type 2 Diabetes Mellitus - Not on Insulin - Obtain HbA1c. - Hold home Jardiance. - Can start sensitive SSI with fingerstick glucose checks. #HFpEF #ASCVD - Continue metoprolol succinate as above - Continue atorvastatin 80mg QHS - No longer on aspirin per patient - Continue lasix at home dose (40mg b.i.d). Take daily weights and trend daily BMPs. #HTN - Hold lisinopril in the maddie-operative setting due to his risk for maddie- operative CARINE. #TOM - Continue on home BiPAP nightly #Gout - Continue allopurinol 300mg daily, please contact medicine consult if he develops CARINE as the dose may need to be adjusted. #Nephrolithiasis - Continue potassium citrate 20mg b.i.d Case was discussed with medicine consult attending, Julien Meeks M.D. X Consult service will continue to follow patient. Recommendations are above, please page if further consultation required. Edward Swanson MD Internal Medicine, PGY3 [place]AT[place] Pager # [phone] Associated attestation - Deana Dove MD - 11/01/2020 3:06 AM EST Hospital Medicine Consult Service Attending Documentation Please see Dr. Swanson's note for details of the patient history of presentation and data. I have seen and examined the patient. I have reviewed the patient's vitals, labs, and pertinent imaging studies. I have discussed, reviewed, and agree with the above documented History, Physical findings, Assessment, and Plan of care. Plan as below. Deana Dove MD Hospital Medicine 11/01/2020 * Initial Assessments - Dorothea Walker RN - 10/31/2020 7:21 PM EST Office of Care Management Initial Assessment DOROTHEA WALKER RN reviewed record and discussed patient with Care Team. Source of Information: ED team, and TC with . Pt being interviewed by medical team. Introduced self/reviewed role; services accepted. Reason for Hospitalization: l hip fx Last COVID test date and time:DUE FIrst vaccine 10/27 Second DUE 11/24 Past Medical History: Diagnosis Date ??? ASCVD (arteriosclerotic cardiovascular disease) 1993 first RI 1992, stent to LAD in 2006 ??? Atrial fibrillation chronic anticoagulation ??? Chronic venous insufficiency ??? Chronic venous insufficiency 10/17/2015 ??? Class 3 severe obesity due to excess calories with serious comorbidity and body mass index (BMI) of 60.0 to 69.9 in adult 03/17/2018 ??? DVT (deep venous thrombosis) ??? HLD (hyperlipidemia) ??? Hypertension ??? Kidney stone ??? Nephrolithiasis hx of nephrostomy tube and posterior approach removal ??? TOM on CPAP ??? PE (pulmonary embolism) ??? Pre-diabetes 10/04/2017 Hemoglobin A1c 6.1 ??? Venous stasis ulcer of left lower extremity 10/17/2015 Hospitalizations Within the Past 30 Days: NO Anticipated Length Of Stay (If known): 3 days Current Decision-Making Capacity: Capable of making own decisions, oriented to Person, Place and Time. Advance Care Planning: Yes on file, Leah. Current Coping/Education/Information Needs: Pt with Ortho team deferred. Current Functional Ability: Bed rest, max assist. L hip fx Functional Status Prior to Admission: Pt could walk 30 feet with MINDY boot on left leg, right leg compression stocking with Stasis Dermatitis ulcers. Home Environment: lives with spouse, dog and a cat Social & Family Supports/Community Resources: very supportive . Behavioral Health History: not reported Substance Use/Abuse:not ETOH, no tobacco, not reported Other Pertinent/Service Specific Information:Left Mindy boot, Right leg compression stocking. Stasis Dermatitis bilateral lower extremity. Left worse than right. [place] wound clinic: 3x/week. Was the size of a 45 record, to quarter. Health/Prescription Coverage: Primary Insurance: MEDICARE Secondary Insurance: [employer] [place] Prescription Coverage: Yes Preferred Pharmacy: [facility] [address] Other: Community Pharmacy: Cheaper for most medications. Primary Care Provider: Nick Nettles MD [phone] Patient/Caregiver Goals of Treatment: Home Potential Needs for Transition of Care: Rehab/SNF: mentioned [facility] Levels of rehab reviewed. Acute/SNF Home Health: [facility] current DME: MINDY boot, cane, FWW borrowed. Dialysis: NA Community Resources: [facility] Transportation: , Leah Other: Pt has comoputere Anticipated Barriers to Discharge/Special Considerations:NONE Assessment: Pt requires acute level of care for management of Left Hip Rx. Plan: Admit to Ortho OR 2/4 Home with VN PT OT DAIRY LAB TECHNICIAN, is preference. A member of the Care Management team will continue to monitor progress, follow for continuity of care and assist with transition of care planning. DOROTHEA WALKER RN Pager: # [phone] documented in this encounter Plan of Treatment Not on file documented as of this encounter Procedures Procedure Name Priority Date/Time Associated Diagnosis Comments POCT GLUCOSE Routine 11/03/2020 11:26 AM EST POCT GLUCOSE Routine 11/03/2020 7:35 AM EST POCT GLUCOSE Routine 11/03/2020 3:39 AM EST HEMOGRAM Routine 11/03/2020 3:17 AM EST DIFFERENTIAL, AUTOMATED Routine 11/03/2020 3:17 AM EST HC PROTHROMBIN TIME Routine 11/03/2020 3 :17 AM EST HC CBC,PLT & AUTO DIFF Routine 3:17 AM EST BASIC METABOLIC PANEL Routine 11/03/2020 3:17 AM EST POCT GLUCOSE Routine 11/03/2020 12:06 AM EST POCT GLUCOSE Routine 11/02/2020 7:26 PM EST POCT GLUCOSE Routine 11/02/2020 4:31 PM EST POCT GLUCOSE Routine 11/02/2020 12:21 PM EST POCT GLUCOSE Routine 11/02/2020 8:04 AM EST HEMOGRAM Routine 11/02/2020 3:46 AM EST DIFFERENTIAL, AUTOMATED Routine 11/02/2020 3:46 AM EST HC PROTHROMBIN TIME Routine 11/02/2020 3 :46 AM EST HC CBC,PLT & AUTO DIFF Routine 3:46 AM EST BASIC METABOLIC PANEL Routine 11/02/2020 3:46 AM EST POCT GLUCOSE Routine 11/01/2020 11:34 PM EST POCT GLUCOSE Routine 11/01/2020 7:04 PM EST XR PELVIS Routine 11/01/2020 6:19 PM EST POCT GLUCOSE Routine 11/01/2020 5:25 PM EST BLOOD GAS ARTERIAL POC Routine 2:49 PM EST HC JOINT CULTURE Routine 11/01/2020 2:46 PM EST JOINT CULTURE Routine 11/01/2020 2:46 PM EST ANAEROBIC CULTURE Routine 11/01/2020 2:4 6 PM EST SPECIMEN TO PATHOLOGY Routine 11/01/2020 2:35 PM EST SURGICAL PATHOLOGY REPORT Routine 11/01/2020 2:34 PM EST HC JOINT CULTURE Routine 11/01/2020 2:32 PM EST JOINT CULTURE Routine 11/01/2020 2:32 PM EST ANAEROBIC CULTURE Routine 11/01/2020 2:3 2 PM EST MODIFIER PINNACLE GRIPTION ACETABULUM DEPUY 11/01/2020 1:29 PM EST Left Femoral Head component fracture Revise Total Hip Replacement ([id number]) 11/01/2020 1:29 PM EST Left Femoral Head component fracture HC PARTIAL THROMBOPLASTIN TIME Routine 11/01/2020 11:29 AM EST HC VENIPUNCTURE Routine 11/01/2020 11:29 AM EST POCT GLUCOSE Routine 11/01/2020 11:21 AM EST TOTAL HIP REVISION ARTHROPLASTY, COMPLETE Routine 11/01/2020 8:38 AM EST POCT GLUCOSE Routine 11/01/2020 7:29 AM EST HEMOGRAM Routine 11/01/2020 3:52 AM EST DIFFERENTIAL, AUTOMATED Routine 11/01/2020 3:52 AM EST HC PROTHROMBIN TIME Routine 11/01/2020 3 :52 AM EST HC CBC,PLT & AUTO DIFF Routine 3:52 AM EST HC HEMOGLOBIN A1C Routine 11/01/2020 3:5 2 AM EST BASIC METABOLIC PANEL Routine 11/01/2020 3:52 AM EST HEMOGRAM STAT 10/31/2020 10:52 PM EST DIFFERENTIAL, AUTOMATED STAT 10/31/2020 10:52 PM EST HC PARTIAL THROMBOPLASTIN TIME STAT 10/31/2020 10:52 PM EST HC PROTHROMBIN TIME STAT 10/31/2020 1 0:52 PM EST HC VENIPUNCTURE STAT 10/31/2020 10:52 PM EST HC PHOSPHORUS, SERUM STAT 10/31/2020 10:52 PM EST HC MAGNESIUM, SERUM STAT 10/31/2020 1 0:52 PM EST BASIC METABOLIC PANEL STAT 10/31/2020 10:52 PM EST EKG 12-LEAD Routine 10/31/2020 7:22 PM EST Class 3 severe obesity due to excess calories with serious comorbidity and body mass index (BMI) of 60.0 to 69.9 in adult XR CHEST ONE VIEW Routine 10/31/2020 6:5 8 PM EST RAPID COVID-19 PCR ([facility]) STAT 10/31/2020 6:52 PM EST HC PARTIAL THROMBOPLASTIN TIME STAT 10/31/2020 6:06 PM EST HC PROTHROMBIN TIME STAT 10/31/2020 6 :06 PM EST XR FEMUR 2 VIEWS LEFT STAT 10/31/2020 5:57 PM EST XR PELVIS STAT 10/31/2020 5:57 PM EST ABORH RECHECK STATUS STAT 10/31/2020 3:00 PM EST SCAN, PERIPHERAL BLOOD STAT 3:00 PM EST HEMOGRAM STAT 10/31/2020 3:00 PM EST DIFFERENTIAL, AUTOMATED STAT 10/31/2020 3:00 PM EST ABO/RH TYPING STAT 10/31/2020 3:00 PM EST HC PARTIAL THROMBOPLASTIN TIME STAT 10/31/2020 3:00 PM EST HC PROTHROMBIN TIME STAT 10/31/2020 3 :00 PM EST HC CBC,PLT & AUTO DIFF STAT 3:00 PM EST ANTIBODY SCREEN STAT 10/31/2020 3:00 PM EST HC ANTIBODY DETECTION,CAPTURE-R STAT 10/31/2020 3:00 PM EST BASIC METABOLIC PANEL STAT 10/31/2020 3:00 PM EST documented in this encounter Results * POCT Glucose (11/03/2020 11:26 AM EST) Glucose, POC 163 65 - 199 mg/dL [facility] Comment: Supplemental ranges: <140 mg/dL before meals <180 mg/dL all other times of the day Blood specimen (specimen) 11/03/2020 11:26 AM EST 11/03/2020 11:26 AM EST Geovani Strange MD POINT OF CARE TEST ORDERABLES [facility] [place] [address] * POCT Glucose (11/03/2020 7:35 AM EST) Glucose, POC 142 65 - 199 mg/dL [facility] Comment: Supplemental ranges: <140 mg/dL before meals <180 mg/dL all other times of the day Blood specimen (specimen) 11/03/2020 7:35 AM EST 11/03/2020 7:35 AM EST Geovani Strange MD POINT OF CARE TEST ORDERABLES Performing Organization Address City/[facility]/ZIP Co de Phone Number [facility] [place] [address] * POCT Glucose (11/03/2020 3:39 AM EST) Glucose, POC 170 65 - 199 mg/dL [facility] Comment: Supplemental ranges: <140 mg/dL before meals <180 mg/dL all other times of the day Blood specimen (specimen) 11/03/2020 3:39 AM EST 11/03/2020 3:39 AM EST Geovani Strange MD POINT OF CARE TEST ORDERABLES [facility] [place] [address] * (ABNORMAL) Differential, Automated (11/03/2020 3:17 AM EST) Neutrophil % 74.6 % [facility] Neutrophil Absolute 8.42(H) 1.70 - 6.10 x10(3)/[facility] Lymph % 10.7 % [facility] Lymphocytes Abs 1.2 0.9 - 3.2 x10(3)/[facility] Monocyte % 12.5 % [facility] Monocyte Abs 1.4(H) 0.3 - 0.9 x10(3)/[facility] Eos % 1.2 % [facility] Eosinophils Abs 0.1 0.0 - 0.4 x10(3)/[facility] Basophil % 0.4 % [facility] Baso Absolute 0.0 0.0 - 0.1 x10(3)/[facility] Immature Gran % 0.60 % [facility] Comment: Immature granulocytes(IG's)percentage and absolute count will include metamyelocytes, myelocytes, and promyelocytes. Blood smears from CBCs yielding IG's will be scanned manually for concordance. If this scan disagrees with the automated IG or if promyelocytes are noted, a manual differential will be performed. Immature Gran Absolute 0.07(H) 0.00 - 0.04 x10(3)/[facility] Blood specimen (specimen) 11/03/2020 3:17 AM EST 11/03/2020 3:50 AM EST Narrative Resulting Agency Comment Spec In Lab Jeffrey Cuevas MD HEMATOLOGY ORDERABLE S [facility] [place] [address] * (ABNORMAL) Hemogram (11/03/2020 3:17 AM EST) White Blood Cell 11.3(H) 4.0 - 9.5 x10(3)/ L [facility] Red Blood Cell 4.89 4.58 - 5.54 x10(6)/ L [facility] Hemoglobin 14.7 13.7 - 16.5 gm/dL [facility] Hematocrit 47.1 40.5 - 48.5 % [facility] Mean Cell Volume 96.3(H) 82.9 - 93.1 fL [facility] Mean Cell Hemoglobin 30.1 27.5 - 32.1 pg [facility] Mean Cell Hemoglobin Concentration 31.2(L) 32.0 - 35.7 gm/dL [facility] Platelet 225 145 - 357 x10(3)/[facility] RDW Standard Deviation 57.3(H) 36.0 - 45.0 [facility] RDW coefficient of variation 16.1(H) 11.4 - 13.8 % [facility] Mean Platelet Volume 9.3 7.6 - 12.9 [facility] NRBC% auto 0.0 % [facility] NRBC Absolute 0.000 0.000 - 0.000 x10(3)/[facility] Blood specimen (specimen) 11/03/2020 3:17 AM EST 11/03/2020 3:50 AM EST Narrative Resulting Agency Comment Spec In Lab Jeffrey Cuevas MD HEMATOLOGY ORDERABLE S [facility] [place] [address] * (ABNORMAL) Prothrombin Time (11/03/2020 3:17 AM EST) Prothrombin Time 21.9(H) 9.4 - 12.5 sec [facility] International Normalization Ratio 1.9 [facility] Comment: An INR <2.0 indicates adequate procoagulant activity for hemostasis in most patients without underlying bleeding disorders, though the INR may not adequately reflect hemostatic capacity in patients with liver disease and synthetic impairment. The recommended target INR range for therapeutic anticoagulation is 2.0 ? 3.0 for most applications, though lower and higher ranges may be appropriate depending on clinical circumstances. Blood specimen (specimen) 11/03/2020 3:17 AM EST 11/03/2020 3:50 AM EST Narrative Resulting Agency Comment Spec In Lab Jeffrey Cuevas MD HEMATOLOGY ORDERABLE S [facility] [place] [address] * (ABNORMAL) Basic Metabolic Panel (non-fasting) (11/03/2020 [...] In Lab Jeffrey Cuevas MD CHEMISTRY ORDERABLES Performing Organization Address City/[facility]/ZIP Co de Phone Number [facility] [place] [address] * POCT Glucose (11/03/2020 12:06 AM EST) Glucose, POC 173 65 - 199 mg/dL [facility] Comment: Supplemental ranges: <140 mg/dL before meals <180 mg/dL all other times of the day Blood specimen (specimen) 11/03/2020 12:06 AM EST 11/03/2020 12:06 AM EST Geovani Strange MD POINT OF CARE TEST ORDERABLES Performing Organization Address [facility] Co de Phone Number [facility] [place] [address] * (ABNORMAL) POCT Glucose (11/02/2020 7:26 PM EST) Glucose, POC 204(H) 65 - 199 mg/dL [facility] Comment: Supplemental ranges: <140 mg/dL before meals <180 mg/dL all other times of the day Blood specimen (specimen) 11/02/2020 7:26 PM EST 11/02/2020 7:26 PM EST Geovani Strange MD POINT OF CARE TEST ORDERABLES Performing Organization Address City/[facility]/ZIP Co de Phone Number [facility] [place] [address] * POCT Glucose (11/02/2020 4:31 PM EST) Glucose, POC 190 65 - 199 mg/dL [facility] Comment: Supplemental ranges: <140 mg/dL before meals <180 mg/dL all other times of the day Blood specimen (specimen) 11/02/2020 4:31 PM EST 11/02/2020 4:31 PM EST Geovani Strange MD POINT OF CARE TEST ORDERABLES [facility] [place] [address] * POCT Glucose (11/02/2020 12:21 PM EST) Glucose, POC 186 65 - 199 mg/dL [facility] Comment: Supplemental ranges: <140 mg/dL before meals <180 mg/dL all other times of the day Blood specimen (specimen) 11/02/2020 12:21 PM EST 11/02/2020 12:21 PM EST Geovani Strange MD POINT OF CARE TEST ORDERABLES [facility] [place] [address] * POCT Glucose (11/02/2020 8:04 AM EST) Glucose, POC 125 65 - 199 mg/dL [facility] Comment: Supplemental ranges: <140 mg/dL before meals <180 mg/dL all other times of the day Blood specimen (specimen) 11/02/2020 8:04 AM EST 11/02/2020 8:04 AM EST Geovani Strange MD POINT OF CARE TEST ORDERABLES [facility] [place] [address] * (ABNORMAL) Differential, Automated (11/02/2020 3:46 AM EST) Neutrophil % 81.0 % [facility] Neutrophil Absolute 10.16(H) 1.70 - 6.10 x10(3)/[facility] Lymph % 9.6 % [facility] Lymphocytes Abs 1.2 0.9 - 3.2 x10(3)/[facility] Monocyte % 8.6 % [facility] Monocyte Abs 1.1(H) 0.3 - 0.9 x10(3)/[facility] Eos % 0.1 % [facility] Eosinophils Abs 0.0 0.0 - 0.4 x10(3)/[facility] Basophil % 0.3 % [facility] Baso Absolute 0.0 0.0 - 0.1 x10(3)/[facility] Immature Gran % 0.40 % [facility] Comment: Immature granulocytes(IG's)percentage and absolute count will include metamyelocytes, myelocytes, and promyelocytes. Blood smears from CBCs yielding IG's will be scanned manually for concordance. If this scan disagrees with the automated IG or if promyelocytes are noted, a manual differential will be performed. Immature Gran Absolute 0.05(H) 0.00 - 0.04 x10(3)/[facility] Blood specimen (specimen) 11/02/2020 3:46 AM EST 11/02/2020 4:26 AM EST Narrative Resulting Agency Comment Spec In Lab Jeffrey Cuevas MD HEMATOLOGY ORDERABLE S [facility] [place] [address] * (ABNORMAL) Hemogram (11/02/2020 3:46 AM EST) Pathologist [facility] White Blood Cell 12.5(H) 4.0 - 9.5 x10(3)/ L [facility] Red Blood Cell 5.04 4.58 - 5.54 x10(6)/mc L [facility] Hemoglobin 15.0 13.7 - 16.5 gm/dL [facility] Hematocrit 49.1(H) 40.5 - 48.5 % [facility] Mean Cell Volume 97.4(H) 82.9 - 93.1 fL [facility] Mean Cell Hemoglobin 29.8 27.5 - 32.1 pg [facility] Mean Cell Hemoglobin Concentration 30.5(L) 32.0 - 35.7 gm/dL [facility] Platelet 252 145 - 357 x10(3)/[facility] RDW Standard Deviation 58.0(H) 36.0 - 45.0 fL [facility] RDW coefficient of variation 16.3(H) 11.4 - 13.8 % [facility] Mean Platelet Volume 9.1 7.6 - 12.9 [facility] NRBC% auto 0.0 % [facility] NRBC Absolute 0.000 0.000 - 0.000 x10(3)/[facility] Blood specimen (specimen) 11/02/2020 3:46 AM EST 11/02/2020 4:26 AM EST Narrative Resulting Agency Comment Spec In Lab Jeffrey Cuevas MD HEMATOLOGY ORDERABLE S [facility] [place] [address] * (ABNORMAL) Prothrombin Time (11/02/2020 3:46 AM EST) Prothrombin Time 20.5(H) 9.4 - 12.5 sec [facility] International Normalization Ratio 1.8 [facility] Comment: An INR <2.0 indicates adequate procoagulant activity for hemostasis in most patients without underlying bleeding disorders, though the INR may not adequately reflect hemostatic capacity in patients with liver disease and synthetic impairment. The recommended target INR range for therapeutic anticoagulation is 2.0 ? 3.0 for most applications, though lower and higher ranges may be appropriate depending on clinical circumstances. Blood specimen (specimen) 11/02/2020 3:46 AM EST 11/02/2020 4:26 AM EST Narrative Resulting Agency Comment Spec In Lab Jeffrey Cuevas MD HEMATOLOGY ORDERABLE S [facility] [place] [address] * (ABNORMAL) Basic Metabolic Panel (non-fasting) (11/02/2020 3:46 AM EST) Glucose 150 65 - 199 mg/dL [facility] Comment:Diabetes: >=200 mg/d L plus symptoms Blood Urea Nitrogen 24(H) 10 - 20 mg/dL [facility] Creatinine 0.90 0.80 - 1.50 mg/dL [facility] Sodium 141 135 - 145 mmol/L [facility] Potassium 4.4 3.5 - 5.0 mmol/L [facility] Comment: Please note: ??Patients with WBC >100,000 may have falsely elevated Potassium levels. ??For accurate Potassium quantification in these patients send serum separator tube (gold top) for subsequent determinations. ??Contact the Clinical Chemistry Laboratory if there are any questions. Chloride 106 98 - 107 mmol/L [facility] Carbon Dioxide 24 22 - 31 mmol/L [facility] Anion Gap 11 5 - 15 mmol/L [facility] Calcium 8.8 8.5 - 10.5 mg/dL [facility] Est Glomerular Filtration Rate 84 >=60 mL/min/1. 73 m?? [facility] Comment: This patient? s estimated glomerular filtration rate (eGFR) is between 84 mL/min/1.73 m2 (patients with less muscle mass per kg body weight) and 98 mL/min/1.73 m2 (patients with more muscle mass [...] in addition to eGFR. Blood specimen (specimen) 11/02/2020 3:46 AM EST 11/02/2020 4:26 AM EST Narrative Resulting Agency Comment Spec In Lab Jeffrey Cuevas MD CHEMISTRY ORDERABLES Performing Organization Address [facility] Co de Phone Number [facility] [place] [address] * POCT Glucose (11/01/2020 11:34 PM EST) Glucose, POC 136 65 - 199 mg/dL [facility] Comment: Supplemental ranges: <140 mg/dL before meals <180 mg/dL all other times of the day Blood specimen (specimen) 11/01/2020 11:34 PM EST 11/01/2020 11:34 PM EST Geovani Strange MD POINT OF CARE TEST ORDERABLES Performing Organization Address [facility] Co de Phone Number [facility] [place] [address] * POCT Glucose (11/01/2020 7:04 PM EST) Glucose, POC 121 65 - 199 mg/dL [facility] Comment: Supplemental ranges: <140 mg/dL before meals <180 mg/dL all other times of the day Blood specimen (specimen) 11/01/2020 7:04 PM EST 11/01/2020 7:04 PM EST Geovani Strange MD POINT OF CARE TEST ORDERABLES Performing Organization Address City/[facility]/ZIP Co de Phone [place] [address] * XR Pelvis (Generic) (11/01/2020 6:19 PM EST) Anatomical Region Laterality Modality Pelvis N/A Digital Radiogra phy Impressions 11/01/2020 6:49 PM EST ??Post revision of LEFT total hip arthroplasty since the previous study. Limited study. No gross radiographic evidence of complication. Stable appearance of RIGHT total hip arthroplasty. Thank you for letting us participate in the care of this patient. For questions regarding this report, please contact the number below. ? Narrative 11/01/2020 6:49 PM EST EXAMINATION: XR PELVIS (GENERIC) CLINICAL HISTORY: s/p revision Left NAIDA. ??Thanks! TECHNIQUE: 1 views of the pelvis COMPARISON: Preoperative study from 10/31/2020 FINDINGS: Post revision of LEFT total hip arthroplasty since the previous study. Limited study. No gross radiographic evidence of complication. Stable appearance of RIGHT total hip arthroplasty. Procedure Note Slim Wright MD - 11/01/2020 EXAMINATION: XR PELVIS (GENERIC) CLINICAL HISTORY: s/p revision Left NAIDA. Thanks! TECHNIQUE: 1 views of the pelvis COMPARISON: Preoperative study from 10/31/2020 FINDINGS: Post revision of LEFT total hip arthroplasty since the previous study. Limited study. No gross radiographic evidence of complication. Stable appearance of RIGHT total hip arthroplasty. IMPRESSION Post revision of LEFT total hip arthroplasty since the previous study. Limited study. No gross radiographic evidence of complication. Stable appearance of RIGHT total hip arthroplasty. Thank you for letting us participate in the care of this patient. Forquestions regarding this report, please contact the number below. Jeffrey Cuevas MD IMG DX ORDERABLES * POCT Glucose (11/01/2020 5:25 PM EST) Glucose, POC 106 65 - 199 mg/dL [facility] Comment: Supplemental ranges: <140 mg/dL before meals <180 mg/dL all other times of the day Blood specimen (specimen) 11/01/2020 5:25 PM EST 11/01/2020 5:25 PM EST Geovani Strange MD POINT OF CARE TEST ORDERABLES Performing Organization Address City/State/[facility] Co de Phone Number [facility] [place] [address] * (ABNORMAL) BLOOD GAS 2 ARTERIAL (11/01/2020 2:49 PM EST) [facility] Signature pH, Arterial 7.34(L) 7.35 - 7.45 [facility] PCO2, Arterial 47(H) 35 - 45 mmHg [facility] PO2, Arterial 110(H) 85 - 104 mmHg [facility] Bicarbonate, Arterial 24.7 20.0 - 26.0 mmol/L [facility] Base Excess, Arterial -1.4 -3.0 - 3.0 mmol/L [facility] Hgb Blood Gas 17.7(H) 13.7 - 16.5 gm/dL [facility] Oxyhemoglobin, Arterial 95.9 94.0 - 97.0 % [facility] Carboxyhemoglob in, Arterial 1.8 % [facility] Comment: Nonsmokers: 0.5-1.5% COHB Smokers: Variable, but usually less than 10% Toxic: 20-30% COHB Lethal: Greater than 60% COHB Methemoglobin, Arterial 0.3 <=1.5 % [facility] Na Whole Blood 141 135 - 145 mmol/L [facility] K Whole Blood 4.0 3.5 - 5.0 mmol/L [facility] Comment: Please note: Patients with WBC >100,000 may have falsely elevated Potassium levels. Contact the Clinical Chemistry Laboratory if there are any questions. ICa Whole Blood 1.19 1.15 - 1.33 mmol/L [facility] Comment: Note: ??Total bilirubin higher than 20 mg/dL may lead to falsely low ionized calcium. CL Whole Blood 106 98 - 107 mmol/L [facility] Gluc Whole Bld 117 65 - 199 mg/dL [facility] Comment:Diabetes: >=200 mg/d L plus symptoms. Lactate WB 1.5 0.5 - 2.2 mmol/L [facility] FIO2 Art 52 % [facility] Flow Art 0.6 LPM [facility] PF Ratio Art 212 [facility] Temp Art 36.0 Celsius [facility] Blood specimen (specimen) 11/01/2020 2:49 PM EST 11/01/2020 2:49 PM EST Geovani Strange MD POINT OF CARE TEST ORDERABLES Performing Organization Address City/[facility]/ZIP Co de Phone Number [facility] [place] [address] * Anaerobic Culture (11/01/2020 2:46 PM EST) Anaerobic Culture No anaerobic organisms isolated [facility] Joint specimen (specimen) LEFT HIP REGION STRUCTURE / Unknown 11/01/2020 2:46 PM EST 11/01/2020 4:20 PM EST Comment:METALOSIS Narrative Resulting Agency Comment Spec In Lab Geovani Strange MD MICROBIOLOGY - GENE RAL ORDERABLES Performing Organization Address City/[facility]/ZIP Co de Phone Number [facility] [place] [address] * Joint Culture (11/01/2020 2:46 PM EST) Joint Culture No growth at 14 days. [facility] Gram Stain Moderate Neutrophils seen No microorganisms seen. [facility] Joint specimen (specimen) LEFT HIP REGION STRUCTURE / Unknown 11/01/2020 2:46 PM EST 11/01/2020 4:20 PM EST Comment:METALOSIS Narrative Resulting Agency Comment Spec In Lab Geovani Strange MD MICROBIOLOGY - GENE RAL ORDERABLES Performing Organization Address [facility] [place] [place] [address] * Specimen to Pathology (11/01/2020 2:35 PM EST) AP Specimen 11/01/2020 2:35 PM EST 11/01/2020 2:35 PM EST Narrative [facility] - 11/01/2020 2:35 PM EST Specimen requisition ordered. ??Separate Pathology report to follow Geovani Strange MD PATHOLOGY/CYTOLOGY ORDERABLES Performing Organization Address [facility] [place] [place] [address] * Surgical Pathology Report (11/01/2020 2:34 PM EST) Final Diagnosis [id number] ? Location: [facility]; [facility]; A The signing pathologist has (i) examined the relevant preparation(s) for the specimen(s) and (ii) rendered or confirmed the diagnosis(es). . ?Surgical Pathology DIAGNOSIS A - Scar and synovium; resection: ?Viable and necrotic synovium, soft tissues, and cortical bone with ?vigorous reactive and xanthomatous histiocytic response, chronic ?inflammation, and abundant metallic and other foreign bodies. ?No acute inflammation or other suggestion of infection. Electronically signed by: ??Gianna SPIVEY, Slim Godoy Verified: ??11/06/2020 ?Pathologist Performed at: ??-[facility] [place], [place], [place] SPECIMEN(S) SUBMITTED A - Scar and synovium CLINICAL INFORMATION Left femoral head component fracture. SPECIMEN PROCESSING A - Labeled/Fixative : Scar and synovium, rule out infection, fresh. Quantity/Size: Fragments, 7 x 5 x 1.5 cm. Tissue Description: Red and black soft tissue with minimal amount of roman bone tissue. Sections/Process ing: Blocks submitted for decalcification: A1-A2. Welt Treater sections in 4 cassettes labeled A1-A4. ??MV 11/06/2020 8:44 AM EST [facility] SYNOVIUM BIOPSY SPECIMEN / Unknown 11/01/2020 2:34 PM EST 11/01/2020 2:34 PM EST Geovani Strange MD PATHOLOGY/CYTOLOGY ORDERABLES Performing Organization Address City/[facility]/ZIP Co de Phone Number [facility] [place] [address] * Anaerobic Culture (11/01/2020 2:32 PM EST) Anaerobic Culture No anaerobic organisms isolated [facility] Joint specimen (specimen) LEFT HIP REGION STRUCTURE / Unknown 11/01/2020 2:32 PM EST 11/01/2020 4:21 PM EST Comment:OR 12 Narrative Resulting Agency Comment Spec In Lab Geovani Strange MD MICROBIOLOGY - GENE RAL ORDERABLES Performing Organization Address [facility]/ZIP Co de Phone Number [facility] [place] [address] * Joint Culture (11/01/2020 2:32 PM EST) Joint Culture No growth at 14 days. [facility] Gram Stain Few Neutrophils seen No microorganisms seen. [facility] Joint specimen (specimen) LEFT HIP REGION STRUCTURE / Unknown 11/01/2020 2:32 PM EST 11/01/2020 4:21 PM EST Comment:OR 12 Narrative Resulting Agency Comment Spec In Lab Geovani Strange MD MICROBIOLOGY - GENE RAL ORDERABLES Performing Organization Address [facility] Co de Phone Number [facility] [place] [address] * (ABNORMAL) APTT (11/01/2020 11:29 AM EST) Partial Thromboplastin Time 42(H) 25 - 37 sec [facility] Comment: The PTT is NOT appropriate for heparin monitoring. Use the Anti-Xa level for heparin monitoring (HEP UFH) or LMWH monitoring (HEP LMW). A PTT less than 37 seconds generally indicates adequate hemostasis. Blood specimen (specimen) 11/01/2020 11:29 AM EST 11/01/2020 11:44 AM EST Narrative Resulting Agency Comment Spec In Lab Jeffrey Cuevas MD HEMATOLOGY ORDERABLE S Performing Organization Address [facility] de Phone Number [facility] [place] [address] * (ABNORMAL) Prothrombin Time (11/01/2020 11:29 AM EST) Prothrombin Time 20.8(H) 9.4 - 12.5 sec [facility] International Normalization Ratio 1.8 [facility] Comment: An INR <2.0 indicates adequate procoagulant activity for hemostasis in most patients without underlying bleeding disorders, though the INR may not adequately reflect hemostatic capacity in patients with liver disease and synthetic impairment. The recommended target INR range for therapeutic anticoagulation is 2.0 ? 3.0 for most applications, though lower and higher ranges may be appropriate depending on clinical circumstances. Blood specimen (specimen) 11/01/2020 11:29 AM EST 11/01/2020 11:44 AM EST Narrative Resulting Agency Comment Spec In Lab Jeffrey Cuevas MD HEMATOLOGY ORDERABLE S [facility] [place] [address] * POCT Glucose (11/01/2020 11:21 AM EST) Glucose, POC 149 65 - 199 mg/dL [facility] Comment: Supplemental ranges: <140 mg/dL before meals <180 mg/dL all other times of the day Blood specimen (specimen) 11/01/2020 11:21 AM EST 11/01/2020 11:21 AM EST Geovani Strange MD POINT OF CARE TEST ORDERABLES Performing Organization Address City/[facility]/ZIP Co de Phone Number [facility] [place] [address] * POCT Glucose (11/01/2020 7:29 AM EST) Glucose, POC 150 65 - 199 mg/dL [facility] Comment: Supplemental ranges: <140 mg/dL before meals <180 mg/dL all other times of the day Blood specimen (specimen) 11/01/2020 7:29 AM EST 11/01/2020 7:29 AM EST Geovani Strange MD POINT OF CARE TEST ORDERABLES Performing Organization Address City/[facility]/ZIP Co de Phone Number [facility] [place] [address] * Differential, Automated (11/01/2020 3:52 AM EST) Neutrophil % 67.1 % [facility] Neutrophil Absolute 5.44 1.70 - 6.10 x10(3)/[facility] Lymph % 19.7 % [facility] Lymphocytes Abs 1.6 0.9 - 3.2 x10(3)/[facility] Monocyte % 9.9 % [facility] Monocyte Abs 0.8 0.3 - 0.9 x10(3)/[facility] Eos % 2.2 % [facility] Eosinophils Abs 0.2 0.0 - 0.4 x10(3)/[facility] Basophil % 0.7 % [facility] Baso Absolute 0.1 0.0 - 0.1 x10(3)/[facility] Immature Gran % 0.40 % [facility] Comment: Immature granulocytes(IG's)percentage and absolute count will include metamyelocytes, myelocytes, and promyelocytes. Blood smears from CBCs yielding IG's will be scanned manually for concordance. If this scan disagrees with the automated IG or if promyelocytes are noted, a manual differential will be performed. Immature Gran Absolute 0.03 0.00 - 0.04 x10(3)/[facility] Blood specimen (specimen) 11/01/2020 3:52 AM EST 11/01/2020 4:13 AM EST Narrative Resulting Agency Comment Spec In Lab Laurent Painting MD HEMATOLOGY ORDERABLE S [facility] [place] [address] * (ABNORMAL) Hemogram (11/01/2020 3:52 AM EST) White Blood Cell 8.1 4.0 - 9.5 x10(3)/mc L [facility] Red Blood Cell 5.80(H) 4.58 - 5.54 x10(6)/mc L [facility] Hemoglobin 17.5(H) 13.7 - 16.5 gm/dL [facility] Hematocrit 54.1(H) 40.5 - 48.5 % [facility] Mean Cell Volume 93.3(H) 82.9 - 93.1 fL [facility] Mean Cell Hemoglobin 30.2 27.5 - 32.1 pg [facility] Mean Cell Hemoglobin Concentration 32.3 32.0 - 35.7 gm/dL [facility] Platelet 251 145 - 357 x10(3)/mc L [facility] RDW Standard Deviation 54.0(H) 36.0 - 45.0 fL [facility] RDW coefficient of variation 16.1(H) 11.4 - 13.8 % [facility] Mean Platelet Volume 9.2 7.6 - 12.9 fL [facility] NRBC% auto 0.0 % [facility] NRBC Absolute 0.000 0.000 - 0.000 x10(3)/mc L [facility] Blood specimen (specimen) 11/01/2020 3:52 AM EST 11/01/2020 4:13 AM EST Narrative Resulting Agency Comment Spec In Lab Laurent Painting MD HEMATOLOGY ORDERABLE S [facility] [place] [id number] * (ABNORMAL) Basic Metabolic Panel (non-fasting) (11/01/2020 3:52 AM EST) Glucose 140 65 - 199 mg/dL [facility] Comment:Diabetes: >=200 mg/d L plus symptoms Blood Urea Nitrogen 19 10 - 20 mg/dL [facility] Creatinine 0.79(L) 0.80 - 1.50 mg/dL [facility] Sodium 141 135 - 145 mmol/L [facility] Potassium 4.0 3.5 - 5.0 mmol/L [facility] Comment: Please note: ??Patients with WBC >100,000 may have falsely elevated Potassium levels. ??For accurate Potassium quantification in these patients send serum separator tube (gold top) for subsequent determinations. ??Contact the Clinical Chemistry Laboratory if there are any questions. Chloride 106 98 - 107 mmol/L [facility] Carbon Dioxide 25 22 - 31 mmol/L [facility] Anion Gap 10 5 - 15 mmol/L [facility] Calcium 9.6 8.5 - 10.5 mg/dL [facility] Est Glomerular Filtration Rate 89 >=60 mL/min/1. 73 m?? [facility] Comment: This patient? s estimated glomerular filtration rate (eGFR) is between 89 mL/min/1.73 m2 (patients with less muscle mass per kg body weight) and 103 mL/min/1.73 m2 (patients with more muscle mass [...] in addition to eGFR. Blood specimen (specimen) 11/01/2020 3:52 AM EST 11/01/2020 4:13 AM EST Narrative Resulting Agency Comment Spec In Lab Jeffrey Cuevas MD CHEMISTRY ORDERABLES [facility] [place] [address] * (ABNORMAL) Prothrombin Time (11/01/2020 3:52 AM EST) Prothrombin Time 23.1(H) 9.4 - 12.5 sec [facility] International Normalization Ratio 2.0 [facility] Comment: An INR <2.0 indicates adequate procoagulant activity for hemostasis in most patients without underlying bleeding disorders, though the INR may not adequately reflect hemostatic capacity in patients with liver disease and synthetic impairment. The recommended target INR range for therapeutic anticoagulation is 2.0 ? 3.0 for most applications, though lower and higher ranges may be appropriate depending on clinical circumstances. Blood specimen (specimen) 11/01/2020 3:52 AM EST 11/01/2020 4:13 AM EST Narrative Resulting Agency Comment Spec In Lab Geovani Strange MD HEMATOLOGY ORDERABL ES [facility] [place] [address] * (ABNORMAL) Hemoglobin A1c (11/01/2020 3:52 AM [...] Mellitus, Diabetes Care 2013; 36: Suppl. 1, G27-68 Estimated Average Glucose See note mg/dL [facility] [...] into estimated average glucose values. ??Diabetes Care 2008:31(8):4859-7657. Blood specimen (specimen) 11/01/2020 3:52 AM EST 11/01/2020 4:13 AM EST Narrative Resulting Agency Comment Spec In Lab Geovani Strange MD CHEMISTRY ORDERABLE S [facility] [place] [address] * (ABNORMAL) Differential, Automated (10/31/2020 10:52 PM EST) Neutrophil % 70.5 % [facility] Neutrophil Absolute 7.16(H) 1.70 - 6.10 x10(3)/mc L [facility] Lymph % 18.9 % [facility] Lymphocytes Abs 1.9 0.9 - 3.2 x10(3)/ L [facility] Monocyte % 8.2 % [facility] Monocyte Abs 0.8 0.3 - 0.9 x10(3)/mc L [facility] Eos % 1.5 % [facility] Eosinophils Abs 0.2 0.0 - 0.4 x10(3)/mc L [facility] Basophil % 0.7 % [facility] Baso Absolute 0.1 0.0 - 0.1 x10(3)/mc L [facility] Immature Gran % 0.20 % [facility] Comment: Immature granulocytes(IG's)percentage and absolute count will include metamyelocytes, myelocytes, and promyelocytes. Blood smears from CBCs yielding IG's will be scanned manually for concordance. If this scan disagrees with the automated IG or if promyelocytes are noted, a manual differential will be performed. Immature Gran Absolute 0.02 0.00 - 0.04 x10(3)/mc L [facility] Blood specimen (specimen) 10/31/2020 10:52 PM EST 10/31/2020 10:58 PM EST Narrative Resulting Agency Comment Spec In Lab Laurent Painting MD HEMATOLOGY ORDERABLE S [facility] [place] [address] * (ABNORMAL) Hemogram (10/31/2020 10:52 PM EST) White Blood Cell 10.2(H) 4.0 - 9.5 x10(3)/mc L [facility] Red Blood Cell 5.92(H) 4.58 - 5.54 x10(6)/mc L [facility] Hemoglobin 17.9(H) 13.7 - 16.5 gm/dL [facility] Hematocrit 54.2(H) 40.5 - 48.5 % [facility] Mean Cell Volume 91.6 82.9 - 93.1 [facility] Mean Cell Hemoglobin 30.2 27.5 - 32.1 pg [facility] Mean Cell Hemoglobin Concentration 33.0 32.0 - 35.7 gm/dL [facility] Platelet 262 145 - 357 x10(3)/mc L [facility] RDW Standard Deviation 53.5(H) 36.0 - 45.0 [facility] RDW coefficient of variation 16.1(H) 11.4 - 13.8 % [facility] Mean Platelet Volume 9.0 7.6 - 12.9 [facility] NRBC% auto 0.0 % [facility] NRBC Absolute 0.000 0.000 - 0.000 x10(3)/ L [facility] Blood specimen (specimen) 10/31/2020 10:52 PM EST 10/31/2020 10:58 PM EST Narrative Resulting Agency Comment Spec In Lab Laurent Painting MD HEMATOLOGY ORDERABLE S [facility] [place] [address] * (ABNORMAL) APTT (10/31/2020 10:52 PM EST) Partial Thromboplastin Time 45(H) 25 - 37 sec [facility] Comment: The PTT is NOT appropriate for heparin monitoring. Use the Anti-Xa level for heparin monitoring (HEP UFH) or LMWH monitoring (HEP LMW). A PTT less than 37 seconds generally indicates adequate hemostasis. Blood specimen (specimen) 10/31/2020 10:52 PM EST 10/31/2020 10:58 PM EST Narrative Resulting Agency Comment Spec In Lab Geovani Strange MD HEMATOLOGY ORDERABL ES Performing Organization Address [facility] de Phone Number [facility] [place] [address] * (ABNORMAL) Prothrombin Time (10/31/2020 10:52 PM EST) Prothrombin Time 24.1(H) 9.4 - 12.5 sec [facility] International Normalization Ratio 2.1 [facility] Comment: An INR <2.0 indicates adequate procoagulant activity for hemostasis in most patients without underlying bleeding disorders, though the INR may not adequately reflect hemostatic capacity in patients with liver disease and synthetic impairment. The recommended target INR range for therapeutic anticoagulation is 2.0 ? 3.0 for most applications, though lower and higher ranges may be appropriate depending on clinical circumstances. Blood specimen (specimen) 10/31/2020 10:52 PM EST 10/31/2020 10:58 PM EST Narrative Resulting Agency Comment Spec In Lab Geovani Strange MD HEMATOLOGY ORDERABL ES Performing Organization Address [facility] Co de Phone Number [facility] [place] [address] * (ABNORMAL) Phosphorus (10/31/2020 10:52 PM EST) Phosphorus 2.3(L) 2.5 - 4.5 mg/dL [facility] Blood specimen (specimen) 10/31/2020 10:52 PM EST 10/31/2020 10:58 PM EST Narrative Resulting Agency Comment Spec In Lab Geovani Strange MD CHEMISTRY ORDERABLE S Performing Organization Address [facility] Co de Phone Number [facility] [place] [address] * Magnesium (10/31/2020 10:52 PM EST) Magnesium 0.83 0.69 - 1.07 mmol/L [facility] Blood specimen (specimen) 10/31/2020 10:52 PM EST 10/31/2020 10:58 PM EST Narrative Resulting Agency Comment Spec In Lab Geovani Strange MD CHEMISTRY ORDERABLE S Performing Organization Address [facility] Co de Phone Number [facility] [place] [address] * (ABNORMAL) Basic Metabolic Panel (non-fasting) (10/31/2020 10:52 PM EST) Glucose 124 65 - 199 mg/dL [facility] Comment:Diabetes: >=200 mg/d L plus symptoms Blood Urea Nitrogen 17 10 - 20 mg/dL [facility] Creatinine 0.72(L) 0.80 - 1.50 mg/dL [facility] Sodium 140 135 - 145 mmol/L [facility] Potassium 3.7 3.5 - 5.0 mmol/L [facility] Comment: Please note: ??Patients with WBC >100,000 may have falsely elevated Potassium levels. ??For accurate Potassium quantification in these patients send serum separator tube (gold top) for subsequent determinations. ??Contact the Clinical Chemistry Laboratory if there are any questions. Chloride 102 98 - 107 mmol/L [facility] Carbon Dioxide 25 22 - 31 mmol/L [facility] Anion Gap 13 5 - 15 mmol/L [facility] Calcium 9.5 8.5 - 10.5 mg/dL [facility] Est Glomerular Filtration Rate 93 >=60 mL/min/1. 73 m?? [facility] Comment: This patient? s estimated glomerular filtration rate (eGFR) is between 93 mL/min/1.73 m2 (patients with less muscle mass per kg body weight) and 107 mL/min/1.73 m2 (patients with more muscle mass [...] in addition to eGFR. Blood specimen (specimen) 10/31/2020 10:52 PM EST 10/31/2020 10:58 PM EST Narrative Resulting Agency Comment Spec In Lab Geovani Strange MD CHEMISTRY ORDERABLE S [facility] [place] [address] * EKG 12 Lead (10/31/2020 7:22 PM EST) Ventricular rate 80 BPM MUSE SYSTEM Atrial Rate 80 BPM MUSE SYSTEM QRS Duration 114 ms MUSE SYSTEM Q-T Interval 394 ms MUSE SYSTEM QTC Calculated (Bezet) 454 ms MUSE SYSTEM Calculated R [place] -33 degrees MUSE SYSTEM Calculated T [place] 4 degrees MUSE SYSTEM INTERPRETATION Atrial fibrillation with premature ventricular or aberrantly conducted complexes Left axis deviation Inferior infarct (cited on or before 16-FEB-2007) Abnormal ECG When compared with ECG of 21-JAN-2017 16:06, No significant change was found Confirmed by MD VU SALVATORE ([id number]) on 11/01/2020 11:55:11 AM MUSE SYSTEM 10/31/2020 7:22 PM EST 11/01/2020 11:55 AM EST Geovani Strange MD ECG ORDERABLES MUSE SYSTEM * XR Chest One View (10/31/2020 6:58 PM EST) Anatomical Region Laterality Modality Chest N/A Digital Radiogra phy Impressions 10/31/2020 7:19 PM EST No acute cardiopulmonary process Thank you for letting us participate in the care of this patient. For questions regarding this report, please contact the number below. ? Narrative 10/31/2020 7:19 PM EST EXAMINATION: XR CHEST ONE VIEW CLINICAL HISTORY: Preoperative. Left hip arthroplasty fracture TECHNIQUE: 1 view of the chest COMPARISON: Chest radiograph 09/01/2015 and 08/29/2015 FINDINGS: Evaluation limited by patient body habitus and low radiographic penetration. No focal consolidation. The pulmonary vascular markings are normal. No pneumothorax. No pleural effusions. Unchanged size of the cardiomediastinal silhouette and bilateral dipak with mild cardiomegaly. No acute osseous findings within the limitations of portable chest radiography. Procedure Note Seymour Galaviz MD - 10/31/2020 EXAMINATION: XR CHEST ONE VIEW CLINICAL HISTORY: Preoperative. Left hip arthroplasty fracture TECHNIQUE: 1 view of the chest COMPARISON: Chest radiograph 09/01/2015 and 08/29/2015 FINDINGS: Evaluation limited by patient body habitus and low radiographicpenetration. No focal consolidation. The pulmonary vascular markings are normal. No pneumothorax. No pleural effusions. Unchanged size of thecardiomediastinal silhouette and bilateral dipak with mild cardiomegaly. No acute osseousfindings within the limitations of portable chest radiography. IMPRESSION No acute cardiopulmonary process Thank you for letting us participate in the care of this patient. Forquestions regarding this report, please contact the number below. Geovani Strange MD IMG DX ORDERABLES * COVID-19 PCR (10/31/2020 6:52 PM EST) SARS-CoV-2 RNA (Rapid) Not Detected Not Detected [facility] Comment: This result should be interpreted in combination with the clinical observations, patient history and epidemiological information in making a final diagnosis. For testing of asymptomatic individuals, assay performance characteristics and clinical utility have not been evaluated. Testing for SARS-CoV-2 (Severe acute respiratory syndrome coronavirus 2, formerly known as 2019 novel coronavirus or 2019-nCoV) to aid in the diagnosis of COVID-19 is performed using the The [employer] SARS-CoV-2 Test as authorized by the FDA Emergency Use Authorization (EUA). This EUA assay is intended for In-vitro Diagnostic (IVD) use with respiratory specimens such as nasopharyngeal swabs collected from individuals during the acute phase of infection. This assay is performed based on the instructions for use provided by [employer] and additional guidance provided by CDC and FDA. Testing is performed in the [facility] within the Department of Pathology and Laboratory Medicine at [facility], certified under the Clinical Laboratory Improvement Amendments of 1988 (CLIA), 42 U.S.C. section 263a, to perform high complexity tests. Assay performance has been verified according to clinical laboratory regulatory requirements for use with specimens collected from individuals suspected of COVID-19. Test results are provided above. A result of Not Detected indicates that the viral RNA target is not present above the limit of detection, but does not preclude SARS-CoV-2 infection. False negative results may occur if a specimen is improperly collected, transported or handled; if amplification inhibitors are present; or if inadequate numbers of viral particles are present in the specimen. When a diagnostic test is negative, the possibility of a false negative result should be considered in the context of a patient? s recent exposures and the presence of clinical signs and symptoms consistent with COVID-19. A result of Detected indicates that RNA from SARS-CoV-2 was detected and the patient is infected. As required or requested by public health authorities, positive specimens may be sent for additional testing. Positive and negative predictive values for this test are highly dependent on disease prevalence. A result of Invalid indicates that neither the viral RNA targets nor the internal control target was detected. An invalid result suggests the presence of inhibitors. Recollection and re-testing is recommended in the case of an invalid result. CDC COVID-19 criteria for testing on human specimens and clinical management guidance information are available at the CDC Coronavirus Disease 2019 (COVID-19) webpage under Information for Healthcare Professionals (https://www.cdc.gov/coronavirus/2019-ncov/hcp/index.html) Additional information about this and other EUA tests can be found in provider and patient fact sheets at the following FDA website: https://www.fda.gov/medical-devices/omhwjoqsota-wopjzzy-6799-qelkj-21-rpinmnzlc- use-a gimkyksnrzkzg-rtqaawk-gangjwx/fzqfy-murnvbhzqaz-rezk SARS-CoV-2 Source [employer] [place] [facility] Nasopharyngeal swab (specimen) 10/31/2020 6:52 PM EST 10/31/2020 7:21 PM EST Comment:Symptoms->Surveillan ce Narrative Resulting Agency Comment Spec In Lab Geovani Strange MD MICROBIOLOGY - [facility] ORDERABLES Performing Organization Address City/State/[facility] Co de Phone Number [facility] [place] [address] * APTT (10/31/2020 6:06 PM EST) Partial Thromboplastin Time 36 25 - 37 sec [facility] Comment: The PTT is NOT appropriate for heparin monitoring. Use the Anti-Xa level for heparin monitoring (HEP UFH) or LMWH monitoring (HEP LMW). A PTT less than 37 seconds generally indicates adequate hemostasis. Blood specimen (specimen) 10/31/2020 6:06 PM EST 10/31/2020 6:14 PM EST Narrative Resulting Agency Comment Spec In Lab Geovani Strange MD HEMATOLOGY ORDERABL ES Performing Organization Address [facility]/ZIP Co de Phone Number [facility] [place] [address] * (ABNORMAL) Prothrombin Time (10/31/2020 6:06 PM EST) Prothrombin Time 24.1(H) 9.4 - 12.5 sec [facility] International Normalization Ratio 2.1 [facility] Comment: An INR <2.0 indicates adequate procoagulant activity for hemostasis in most patients without underlying bleeding disorders, though the INR may not adequately reflect hemostatic capacity in patients with liver disease and synthetic impairment. The recommended target INR range for therapeutic anticoagulation is 2.0 ? 3.0 for most applications, though lower and higher ranges may be appropriate depending on clinical circumstances. Blood specimen (specimen) 10/31/2020 6:06 PM EST 10/31/2020 6:14 PM EST Narrative Resulting Agency Comment Spec In Lab Geovani Strange MD HEMATOLOGY ORDERABL ES Performing Organization Address [facility]/ZIP Co de Phone Number [facility] [place] [address] * XR Pelvis (Generic) (10/31/2020 5:57 PM EST) Anatomical Region Laterality Modality Pelvis N/A Digital Radiogra phy Impressions 10/31/2020 6:56 PM EST 1. ??Bilateral total hip arthroplasties 2. ??Interval change in alignment of the LEFT femoral arthroplasty with respect to the acetabular cup, with new high density fragments, consistent with hardware failure such as fragmentation of a prosthesis. 3. ??No periprosthetic fracture surrounding the femoral component stem 4. ??Unchanged alignment of the RIGHT hip arthroplasty. Preliminary report signed by: Doug Valiente at 10/31/2020 6:38 PM I have personally reviewed the image(s) and the resident's interpretation and agree with the findings, Seymour Galaviz MD at 10/31/2020 6:56 PM Thank you for letting us participate in the care of this patient. For questions regarding this report, please contact the number below. ? Narrative 10/31/2020 6:56 PM EST EXAMINATION: XR PELVIS (GENERIC), XR FEMUR 2 VIEWS LEFT (GENERIC) CLINICAL HISTORY: artifical L hip with fx on OSH films TECHNIQUE: Bilateral oblique views of the pelvis AP and lateral views of the left femur COMPARISON: Pelvis and left hip radiographs from outside institution 10/27/2020 CT abdomen/pelvis 08/29/2015 FINDINGS: Status post bilateral total hip arthroplasties. Unchanged superior lateral eccentric position of the RIGHT femoral head component with respect to the acetabular cup, unchanged from 08/29/2015. Unchanged lucency within the lateral intertrochanteric region, consistent with stress shielding. No evidence of periprosthetic fracture at the right hip. There is abnormal alignment of the femoral head component of the LEFT hip arthroplasty with respect to the acetabular cup. Though the femoral head component was eccentrically positioned on the prior study the current orientation appears different. There are new high density/metallic densities projecting along the inferior margin of the acetabular cup and adjacent to the superior lateral greater trochanter component of the arthroplasty. No periprosthetic fracture surrounding the femoral stem component. Similar appearance of proliferative bone formation along the inferior margin of the acetabulum and superior to the greater trochanter when compared to prior CT. No fracture the distal femur. No knee joint effusion or lipohemarthrosis. Procedure Note Seymour Galaviz MD - 10/31/2020 EXAMINATION: XR PELVIS (GENERIC), XR FEMUR 2 VIEWS LEFT (GENERIC) CLINICAL HISTORY: artifical L hip with fx on OSH films TECHNIQUE: Bilateral oblique views of the pelvis AP and lateral views of the left femur COMPARISON: Pelvis and left hip radiographs from outside institution 10/27/2020 CT abdomen/pelvis 08/29/2015 FINDINGS: Status post bilateral total hip arthroplasties. Unchanged superior lateral eccentric position of the RIGHT femoral head component with respect to the acetabular cup, unchanged from 08/29/2015. Unchanged lucency within the lateral intertrochanteric region, consistentwith stress shielding. No evidence of periprosthetic fracture at the righthip. There is abnormal alignment of the femoral head component of the LEFThip arthroplasty with respect to the acetabular cup. Though the femoral head component was eccentrically positioned on the prior study the current orientation appears different. There are new high density/metallicdensities projecting along the inferior margin of the acetabular cup and adjacent tothe superior lateral greater trochanter component of the arthroplasty. No periprosthetic fracture surrounding the femoral stem component. Similar appearance of proliferative bone formation along the inferior margin ofthe acetabulum and superior to the greater trochanter when compared to priorCT. No fracture the distal femur. No knee joint effusion orlipohemarthrosis. IMPRESSION 1. Bilateral total hip arthroplasties 2. Interval change in alignment of the LEFT femoral arthroplasty withrespect to the acetabular cup, with new high density fragments, consistent withhardware failure such as fragmentation of a prosthesis. 3. No periprosthetic fracture surrounding the femoral component stem 4. Unchanged alignment of the RIGHT hip arthroplasty. Preliminary report signed by: Doug Valiente at 10/31/2020 6:38 PM I have personally reviewed the image(s) and the resident's interpretationand agree with the findings, Seymour Galaviz MD at 10/31/2020 6:56 PM Thank you for letting us participate in the care of this patient. Forquestions regarding this report, please contact the number below. Champ Whitaker DO IMG DX ORDERABLES * XR Femur 2 views Left (Generic) (10/31/2020 5:57 PM EST) Anatomical Region Laterality Modality Thigh Left Digital Radiogra phy Impressions 10/31/2020 6:56 PM EST 1. ??Bilateral total hip arthroplasties 2. ??Interval change in alignment of the LEFT femoral arthroplasty with respect to the acetabular cup, with new high density fragments, consistent with hardware failure such as fragmentation of a prosthesis. 3. ??No periprosthetic fracture surrounding the femoral component stem 4. ??Unchanged alignment of the RIGHT hip arthroplasty. Preliminary report signed by: Doug Valiente at 10/31/2020 6:38 PM I have personally reviewed the image(s) and the resident's interpretation and agree with the findings, Seymour Galaviz MD at 10/31/2020 6:56 PM Thank you for letting us participate in the care of this patient. For questions regarding this report, please contact the number below. ? Narrative 10/31/2020 6:56 PM EST EXAMINATION: XR PELVIS (GENERIC), XR FEMUR 2 VIEWS LEFT (GENERIC) CLINICAL HISTORY: artifical L hip with fx on OSH films TECHNIQUE: Bilateral oblique views of the pelvis AP and lateral views of the left femur COMPARISON: Pelvis and left hip radiographs from outside institution 10/27/2020 CT abdomen/pelvis 08/29/2015 FINDINGS: Status post bilateral total hip arthroplasties. Unchanged superior lateral eccentric position of the RIGHT femoral head component with respect to the acetabular cup, unchanged from 08/29/2015. Unchanged lucency within the lateral intertrochanteric region, consistent with stress shielding. No evidence of periprosthetic fracture at the right hip. There is abnormal alignment of the femoral head component of the LEFT hip arthroplasty with respect to the acetabular cup. Though the femoral head component was eccentrically positioned on the prior study the current orientation appears different. There are new high density/metallic densities projecting along the inferior margin of the acetabular cup and adjacent to the superior lateral greater trochanter component of the arthroplasty. No periprosthetic fracture surrounding the femoral stem component. Similar appearance of proliferative bone formation along the inferior margin of the acetabulum and superior to the greater trochanter when compared to prior CT. No fracture the distal femur. No knee joint effusion or lipohemarthrosis. Procedure Note Seymour Galaviz MD - 10/31/2020 EXAMINATION: XR PELVIS (GENERIC), XR FEMUR 2 VIEWS LEFT (GENERIC) CLINICAL HISTORY: artifical L hip with fx on OSH films TECHNIQUE: Bilateral oblique views of the pelvis AP and lateral views of the left femur COMPARISON: Pelvis and left hip radiographs from outside institution 10/27/2020 CT abdomen/pelvis 08/29/2015 FINDINGS: Status post bilateral total hip arthroplasties. Unchanged superior lateral eccentric position of the RIGHT femoral head component with respect to the acetabular cup, unchanged from 08/29/2015. Unchanged lucency within the lateral intertrochanteric region, consistentwith stress shielding. No evidence of periprosthetic fracture at the righthip. There is abnormal alignment of the femoral head component of the LEFThip arthroplasty with respect to the acetabular cup. Though the femoral head component was eccentrically positioned on the prior study the current orientation appears different. There are new high density/metallicdensities projecting along the inferior margin of the acetabular cup and adjacent tothe superior lateral greater trochanter component of the arthroplasty. No periprosthetic fracture surrounding the femoral stem component. Similar appearance of proliferative bone formation along the inferior margin ofthe acetabulum and superior to the greater trochanter when compared to priorCT. No fracture the distal femur. No knee joint effusion orlipohemarthrosis. IMPRESSION 1. Bilateral total hip arthroplasties 2. Interval change in alignment of the LEFT femoral arthroplasty withrespect to the acetabular cup, with new high density fragments, consistent withhardware failure such as fragmentation of a prosthesis. 3. No periprosthetic fracture surrounding the femoral component stem 4. Unchanged alignment of the RIGHT hip arthroplasty. Preliminary report signed by: Doug Valiente at 10/31/2020 6:38 PM I have personally reviewed the image(s) and the resident's interpretationand agree with the findings, Seymour Galaviz MD at 10/31/2020 6:56 PM Thank you for letting us participate in the care of this patient. Forquestions regarding this report, please contact the number below. Champ Whitaker IMG DX ORDERABLES * Scan, Peripheral Blood (10/31/2020 3:00 PM EST) Pathologist [facility] Plat estimate Normal [facility] RBC Morphology Normal [facility] Blood specimen (specimen) 10/31/2020 3:00 PM EST 10/31/2020 3:08 PM EST Narrative Resulting Agency Comment Spec In Lab Bucky SIMEON HEMATOLOGY ORDERABLE S Performing Organization Address City/[facility]/ZIP Co de Phone Number [facility] [place] [phone] * ABORH Recheck Status (10/31/2020 3:00 PM EST) [facility] ABORH Type Recheck Completed [facility] Blood specimen (specimen) 10/31/2020 3:00 PM EST 10/31/2020 3:47 PM EST Narrative Resulting Agency Comment Spec In Lab Bucky SIMEON BLOOD BANK LAB ORDER JESSIE Performing Organization Address City/[facility]/ZIP Co de Phone Number [facility] [place] [address] * Antibody screen (10/31/2020 3:00 PM EST) [facility] Ab Screen Interp Negative [facility] Expires at [id number] on: 11/03/2020 [facility] Blood specimen (specimen) 10/31/2020 3:00 PM EST 10/31/2020 3:47 PM EST Narrative Resulting Agency Comment Spec In Lab Bucky SIMEON BLOOD BANK LAB ORDER JESSIE Performing Organization Address City/[facility]/ZIP Co de Phone Number [facility] [place] [address] * ABO/Rh Typing (10/31/2020 3:00 PM EST) ABORH Type O Pos [facility] Blood specimen (specimen) 10/31/2020 3:00 PM EST 10/31/2020 3:47 PM EST Narrative Resulting Agency Comment Spec In Lab Bucky SIMEON BLOOD BANK LAB ORDER JESSIE Performing Organization Address [facility] Co de Phone Number [facility] [place] [address] * (ABNORMAL) Differential, Automated (10/31/2020 3:00 PM EST) Neutrophil % 73.3 % [facility] Neutrophil Absolute 6.61(H) 1.70 - 6.10 x10(3)/mc L [facility] Lymph % 18.1 % [facility] Lymphocytes Abs 1.6 0.9 - 3.2 x10(3)/mc L [facility] Monocyte % 7.0 % [facility] Monocyte Abs 0.6 0.3 - 0.9 x10(3)/mc L [facility] Eos % 0.9 % [facility] Eosinophils Abs 0.1 0.0 - 0.4 x10(3)/mc L [facility] Basophil % 0.4 % [facility] Baso Absolute 0.0 0.0 - 0.1 x10(3)/mc L [facility] Immature Gran % 0.30 % [facility] Comment: Immature granulocytes(IG's)percentage and absolute count will include metamyelocytes, myelocytes, and promyelocytes. Blood smears from CBCs yielding IG's will be scanned manually for concordance. If this scan disagrees with the automated IG or if promyelocytes are noted, a manual differential will be performed. Immature Gran Absolute 0.03 0.00 - 0.04 x10(3)/mc L [facility] Blood specimen (specimen) 10/31/2020 3:00 PM EST 10/31/2020 3:08 PM EST Narrative Resulting Agency Comment Spec In Lab Bucky SIMEON HEMATOLOGY ORDERABLE S [facility] [place] [address] * (ABNORMAL) Hemogram (10/31/2020 3:00 PM EST) White Blood Cell 9.0 4.0 - 9.5 x10(3)/mc L [facility] Red Blood Cell 6.20(H) 4.58 - 5.54 x10(6)/mc L [facility] Hemoglobin 18.6(H) 13.7 - 16.5 gm/dL [facility] Hematocrit 58.3(H) 40.5 - 48.5 % [facility] Mean Cell Volume 94.0(H) 82.9 - 93.1 fL [facility] Mean Cell Hemoglobin 30.0 27.5 - 32.1 pg [facility] Mean Cell Hemoglobin Concentration 31.9(L) 32.0 - 35.7 gm/dL [facility] Platelet 265 145 - 357 x10(3)/mc L [facility] RDW Standard Deviation 55.8(H) 36.0 - 45.0 fL [facility] RDW coefficient of variation 17.2(H) 11.4 - 13.8 % [facility] Mean Platelet Volume 9.1 7.6 - 12.9 fL [facility] NRBC% auto 0.0 % [facility] NRBC Absolute 0.000 0.000 - 0.000 x10(3)/mc L [facility] Blood specimen (specimen) 10/31/2020 3:00 PM EST 10/31/2020 3:08 PM EST Narrative Resulting Agency Comment Spec In Lab Bucky Jj BLANCO HEMATOLOGY ORDERABLE S Performing Organization Address [facility] de Phone Number [facility] [place] [address] * APTT (10/31/2020 3:00 PM EST) Partial Thromboplastin Time Not Perf 25 - 37 [facility] Comment: The PTT is NOT appropriate for heparin monitoring. Use the Anti-Xa level for heparin monitoring (HEP UFH) or LMWH monitoring (HEP LMW). A PTT less than 37 seconds generally indicates adequate hemostasis. hct over 55 Called by: BDB, Read back by: Lolita Valiente, Date/Time:10/31/20 16:04. Corrected from 46 sec [HI] on 10/31/20 16:05:57 EST by Napoleon Ramos Blood specimen (specimen) 10/31/2020 3:00 PM EST 10/31/2020 3:08 PM EST Narrative Resulting Agency Comment Spec In Lab Champaury Whitaker HEMATOLOGY ORDERABLE S Performing Organization Address [facility] Co de Phone Number [facility] [place] [address] * Prothrombin Time (10/31/2020 3:00 PM EST) Prothrombin Time Not Perf 9.4 - 12.5 [facility] Comment: hct over 55 Called by: BDB, Read back by: Lolita Valiente, Date/Time:10/31/20 16:04. Corrected from 24.6 sec [HI] on 10/31/20 16:05:57 EST by Napoleon Ramos International Normalization Ratio Not Perf [facility] Comment: An INR <2.0 indicates adequate procoagulant activity for hemostasis in most patients without underlying bleeding disorders, though the INR may not adequately reflect hemostatic capacity in patients with liver disease and synthetic impairment. The recommended target INR range for therapeutic anticoagulation is 2.0 ? 3.0 for most applications, though lower and higher ranges may be appropriate depending on clinical circumstances. hct over 55 Called by: HARDEEP, Read back by: Lolita Valiente, Date/Time:10/31/20 16:04. Corrected from 2.1 [NA] on 10/31/20 16:05:57 EST by Napoleon Ramos Blood specimen (specimen) 10/31/2020 3:00 PM EST 10/31/2020 3:08 PM EST Narrative Resulting Agency Comment Spec In Lab Champ Whitaker DO HEMATOLOGY ORDERABLE S [facility] [place] [address] * Basic Metabolic Panel (non-fasting) (10/31/2020 3:00 PM EST) Glucose 128 65 - 199 mg/dL [facility] Comment:Diabetes: >=200 mg/d L plus symptoms Blood Urea Nitrogen 18 10 - 20 mg/dL [facility] Creatinine 0.86 0.80 - 1.50 mg/dL [facility] Sodium 142 135 - 145 mmol/L [facility] Potassium 4.1 3.5 - 5.0 mmol/L [facility] Comment: Please note: ??Patients with WBC >100,000 may have falsely elevated Potassium levels. ??For accurate Potassium quantification in these patients send serum separator tube (gold top) for subsequent determinations. ??Contact the Clinical Chemistry Laboratory if there are any questions. Chloride 103 98 - 107 mmol/L [facility] Carbon Dioxide 27 22 - 31 mmol/L [facility] Anion Gap 12 5 - 15 mmol/L [facility] Calcium 10.0 8.5 - 10.5 mg/dL [facility] Est Glomerular Filtration Rate 86 >=60 mL/min/1. 73 m?? [facility] Comment: This patient? s estimated glomerular filtration rate (eGFR) is between 86 mL/min/1.73 m2 (patients with less muscle mass per kg body weight) and 100 mL/min/1.73 m2 (patients with more muscle mass [...] in addition to eGFR. 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)- Primary Hip joint replacement by other means Class 3 severe obesity due to excess calories with serious comorbidity and body mass index (BMI) of 60.0 to 69.9 in adult Chronic venous insufficiency Unspecified venous (peripheral) insufficiency Venous stasis ulcer of left lower extremity Morbid obesity Failed total hip arthroplasty, initial encounter Venous stasis ulcer of left lower extremity documented in this encounter Admitting Diagnoses Diagnosis Failed total hip arthroplasty, initial encounter documented in this encounter Administered Medications Inactive Administered Medications - up to 3 most recent administrations Medication Order MAR Action Action Date Dose Rate Site acetaminophen (Tylenol) tablet 1,000 mg 1,000 mg, Oral, EVERY 8 HOURS SCHEDULED, First dose on Fri10/31/20 at 2200, Until Discontinued, Maximum dose of acetaminophen is 4000 mg from all sources in 24 hours. When ordered for pain, acetaminophen should be given even when other ordered pain medications are indicated. , Routine Given 11/03/2020 5:23 AM EST 1,000 mg Given 11/02/2020 2:50 PM EST 1,000 mg Given 11/02/2020 6:00 AM EST 1,000 mg allopurinoL (Zyloprim) tablet 300 mg 300 mg, Oral, DAILY, First dose on Fri11/01/20 at 0900, Until Discontinued, Routine Given 11/03/2020 9:18 AM EST 300 mg Given 11/02/2020 8:38 AM EST 300 mg Given 11/01/2020 8:10 AM EST 300 mg atorvastatin (Lipitor) tablet 80 mg 80 mg, Oral, DAILY, First dose (after last modification) on Fri10/31/20 at 2330, Until Discontinued, Routine Given 11/03/2020 9:17 AM EST 80 mg Given 11/02/2020 8:37 AM EST 80 mg Given 10/31/2020 10:56 PM EST 80 mg ceFAZolin (Ancef) 2 g in dextrose 5% 100 mL infusion 2 g, Intravenous, EVERY 8 HOURS, 3 doses, First dose on Fri11/01/20 at 1800, Last dose on Fri11/02/20 at 1000, Administer over 30 Minutes, Adjust to 4 hours from intraoperative dose. * Beta-lactam based antibiotics (eg. Ampicillin, Cefazolin, Aztreonam) should be administered within 4 hours of the preceding intraoperative dose. * Vancomycin, Fluoroquinolones, Clindamycin, Gentamicin, and Metronidazole should be administered within 8 hours of the preceding intraoperative dose., Recovery (Recovery-Hospital Unit), Indication for (Active or Suspected): Prophylaxis Given 11/01/2020 9:36 PM EST 2 g 200 mL/hr ceFAZolin (Ancef) 2 g in dextrose 5% 100 mL infusion 2 g, Intravenous, EVERY 8 HOURS, 2 doses, First dose (after last reorder) on Fri11/02/20 at 0600, Last dose on Fri11/02/20 at 1400, Administer over 30 Minutes, Adjust to 4 hours from intraoperative dose. * Beta-lactam based antibiotics (eg. Ampicillin, Cefazolin, Aztreonam) should be administered within 4 hours of the preceding intraoperative dose. * Vancomycin, Fluoroquinolones, Clindamycin, Gentamicin, and Metronidazole should be administered within 8 hours of the preceding intraoperative dose., Recovery (Recovery-Hospital Unit), Indication for (Active or Suspected): Prophylaxis Given 11/02/2020 2:51 PM EST 2 g 200 mL/hr Given 11/02/2020 5:59 AM EST 2 g 200 mL/hr celecoxib (CeleBREX) capsule 200 mg 200 mg, Oral, 2 TIMES DAILY, First dose on Fri11/01/20 at 2100, Until Discontinued, Routine Given 11/03/2020 9:18 AM EST 200 mg Given 11/02/2020 8:14 PM EST 200 mg Given 11/02/2020 8:37 AM EST 200 mg cephALEXin (Keflex) capsule 500 mg 500 mg, Oral, EVERY 6 HOURS SCHEDULED, 28 doses, First dose on Fri11/02/20 at 1900, Last dose on Fri11/09/20 at 1200, Routine, Indication for (Active or Suspected): Skin/Skin Structure Given 11/03/2020 12:01 PM EST 500 mg Given 11/03/2020 5:24 AM EST 500 mg Given 11/03/2020 12:09 AM EST 500 mg dextrose 10% infusion 250 mL, at 1,000 mL/hr, Intravenous, EVERY 30 MIN PRN, Starting on Fri10/31/20 at 2024, Until Fri11/03/20 at 1721, For BG 50-70 mg/dL: Oral treatment preferred:?? If able to drink, give 120 mL Juice or Regular (not diet) soda OR If NPO, give 15 gram glucose 40% oral gel massaged into buccal mucosa OR if unconscious or uncooperative, give 25 gram (250 mL) Dextrose 10% IV over 15 minutes per protocol OR, if no IV access, 1 mg Glucagon IM. For BG less than 50 mg/dL: Oral treatment preferred:?? If able to drink, give 240 mL Juice or Regular (not diet) soda OR If NPO, give 30 gram glucose 40% oral gel massaged in buccal mucosa OR if unconscious or uncooperative, give 25 gram (250 mL) Dextrose 10% IV over 15 minutes per protocol OR, if no IV access, 1 mg Glucagon IM. Recheck BG in 30 minutes. May repeat juice/soda, gel, dextrose or glucagon once per episode. For persistent hypoglycemia, consider longer-acting treatment for the duration of the active insulin. furosemide (Lasix) tablet 40 mg 40 mg, Oral, 2 TIMES DAILY, First dose (after last modification) on Fri10/31/20 at 2330, Until Discontinued, Hold for systolic blood pressure less than 95, Routine Given 11/03/2020 9:18 AM EST 40 mg Given 11/02/2020 5:41 PM EST 40 mg Given 11/02/2020 8:37 AM EST 40 mg glucagon (Glucagen) (1 mg/mL) injection solution 1 mg 1 mg, Intramuscular, EVERY 30 MIN PRN, Starting on Fri10/31/20 at 2023, Until Fri11/03/20 at 1721, Low blood sugar, For BG 50-70 mg/dL: Oral treatment preferred:?? If able to drink, give 120 mL Juice or Regular (not diet) soda OR If NPO, give 15 gram glucose 40% oral gel massaged into buccal mucosa OR if unconscious or uncooperative, give 25 gram (250 mL) Dextrose 10% IV over 15 minutes per protocol OR, if no IV access, 1 mg Glucagon IM. For BG less than 50 mg/dL: Oral treatment preferred:?? If able to drink, give 240 mL Juice or Regular (not diet) soda OR If NPO, give 30 gram glucose 40% oral gel massaged in buccal mucosa OR if unconscious or uncooperative, give 25 gram (250 mL) Dextrose 10% IV over 15 minutes per protocol OR, if no IV access, 1 mg Glucagon IM. Recheck BG in 30 minutes. May repeat juice/soda, gel, dextrose or glucagon once per episode. For persistent hypoglycemia, consider longer-acting treatment for the duration of the active insulin., Routine glucose (GLUTOSE) 40% oral geL 15-30 g, Buccal, EVERY 30 MIN PRN, Starting on Fri10/31/20 at 2023, Until Fri11/03/20 at 1721, Low blood sugar, For BG 50-70 mg/dL: Oral treatment preferred:?? If able to drink, give 120 mL Juice or Regular (not diet) soda OR If NPO, give 15 gram glucose 40% oral gel massaged into buccal mucosa OR if unconscious or uncooperative, give 25 gram (250 mL) Dextrose 10% IV over 15 minutes per protocol OR, if no IV access, 1 mg Glucagon IM. For BG less than 50 mg/dL: Oral treatment preferred:?? If able to drink, give 240 mL Juice or Regular (not diet) soda OR If NPO, give 30 gram glucose 40% oral gel massaged in buccal mucosa OR if unconscious or uncooperative, give 25 gram (250 mL) Dextrose 10% IV over 15 minutes per protocol OR, if no IV access, 1 mg Glucagon IM. Recheck BG in 30 minutes. May repeat juice/soda, gel, dextrose or glucagon once per episode. For persistent hypoglycemia, consider longer-acting treatment for the duration of the active insulin. 1 tube contains 15 grams of glucose (net weight of tube = 37.5 grams., Routine insulin lispro (HumaLOG) (100 unit/mL) subcutaneous injection vial 1-5 Units 1-5 Units, Subcutaneous, EVERY 4 HOURS SCHEDULED, First dose (after last modification) on Helen 11/02/20 at 0800, Until Discontinued, CORRECTION BOLUS [1-4 Units] Sensitive Sliding Scale: [...] a BG of > 240 in 2 hours., Routine Given 11/03/2020 12:00 PM EST 1 Units Given 11/03/2020 3:43 AM EST 1 Units Given 11/03/2020 12:09 AM EST 1 Units ketorolac (Toradol) (15 mg/mL) injection 15 mg 15 mg, Intravenous, EVERY 6 HOURS PRN, Starting on Fri11/01/20 at 1730, Until Fri11/03/20 at 1721, Pain, Routine Given 11/01/2020 5:40 PM EST 15 mg lisinopriL (Prinivil;Zestril) tablet 20 mg 20 mg, Oral, DAILY, First dose on Fri11/03/20 at 0900, Until Discontinued, Hold for systolic blood pressure less than 120, Routine Given 11/03/2020 9:18 AM EST 20 mg metoprolol succinate XL (Toprol-XL) tablet 200 mg 200 mg, Oral, DAILY, First dose on Fri11/01/20 at 0900, Until Discontinued, DO NOT CRUSH OR OPEN Hold for systolic blood pressure less than 110 or heart rate less than 55, Routine Given 11/03/2020 9:18 AM EST 200 mg Given 11/02/2020 8:37 AM EST 200 mg Given 11/01/2020 8:10 AM EST 200 mg miconazole (MICOTIN) 2 % powder Topical (Top), 2 TIMES DAILY, First dose on Helen 11/02/20 at 1330, Until Discontinued, To pannus Given 11/03/2020 9:[address] Given 11/02/2020 8:19 PM EST Given 11/02/2020 2:51 PM EST multivitamin with minerals (THERA-M) tablet 1 tablet 1 tablet, Oral, DAILY, First dose on Fri11/01/20 at 1800, Until Discontinued, Routine Given 11/03/2020 9:17 AM EST 1 tablet Given 11/02/2020 8:37 AM EST 1 tablet Given 11/01/2020 8:13 PM EST 1 tablet ondansetron (pf) (Zofran) (2 mg/mL) injection 4 mg 4 mg, Intravenous, EVERY 30 MIN PRN, Starting on Fri11/01/20 at 1644, Until Fri11/01/20 at 1850, Nausea, May repeat 4 mg once in 30 minutes. If multiple antiemetics ordered, use ondansetron first and if ineffective use prochlorperazine second and if ineffective use promethazine, PACU Recovery Given 11/01/2020 5:40 PM EST 4 mg oxyCODONE (Roxicodone) tablet 10 mg 10 mg, Oral, EVERY 4 HOURS PRN, Starting on Fri10/31/20 at 2023, Until Fri11/03/20 at 1721, Pain, moderate pain (4-6), For moderate pain (4-6). Do not exceed 15 mg in 4 hours. If pain not relieved, call provider., Routine oxyCODONE (Roxicodone) tablet 15 mg 15 mg, Oral, EVERY 4 HOURS PRN, Starting on Fri10/31/20 at 2023, Until Fri11/03/20 at 1721, Pain, severe pain (7-10), For severe pain (7-10). Do not exceed 15 mg in 4 hours. If pain not relieved, call provider., Routine oxyCODONE (Roxicodone) tablet 5 mg 5 mg, Oral, EVERY 4 HOURS PRN, Starting on Fri10/31/20 at 2024, Until Fri11/03/20 at 1721, Pain, mild pain (1-3), For mild pain (1-3). Do not exceed 15 mg in 4 hours. If pain not relieved, call provider, Routine pantoprazole EC (Protonix) tablet 20 mg 20 mg, Oral, DAILY, First dose on Fri11/01/20 at 1800, Until Discontinued, DO NOT CRUSH OR OPEN Given 11/03/2020 9:18 AM EST 20 mg Given 11/02/2020 8:37 AM EST 20 mg Given 11/01/2020 8:13 PM EST 20 mg phytonadione (vitamin K1) (Mephyton) tablet 2.5 mg 2.5 mg, Oral, ONCE, 1 dose, On Fri11/01/20 at 0600, STAT Given 11/01/2020 5:43 AM EST 2.5 mg polyethylene glycoL (Miralax) packet 17 g 17 g, Oral, 2 TIMES DAILY, First dose on Fri10/31/20 at 2115, Until Discontinued, Routine Given 11/02/2020 8:36 AM EST 17 g Given 10/31/2020 10:56 PM EST 17 g potassium citrate SR (Urocit) tablet TbSR 20 mEq 20 mEq, Oral, 2 TIMES DAILY, First dose on Fri10/31/20 at 2245, Until Discontinued, Routine Given 11/03/2020 12:00 PM EST 20 mEq Given 11/02/2020 8:15 PM EST 20 mEq Given 11/02/2020 8:37 AM EST 20 mEq senna-docusate (Pericolace) 8.6-50 mg per tablet 2 tablet 2 tablet, Oral, 2 TIMES DAILY, First dose on Fri10/31/20 at 2115, Until Discontinued, Routine Given 11/03/2020 9:17 AM EST 2 tablets Given 11/02/2020 8:14 PM EST 2 tablets Given 11/02/2020 8:37 AM EST 2 tablets sodium chloride 0.9 % (flush) flush 5 mL 5 mL, Intravenous, 2 TIMES DAILY, First dose on Fri10/31/20 at 2115, Until Discontinued, Routine Given 11/03/2020 9:19 AM EST 5 mLs Given 11/02/2020 8:20 PM EST 5 mLs Given 11/02/2020 8:38 AM EST 5 mLs sodium chloride 0.9% infusion 100 mL/hr, Intravenous, CONTINUOUS, Starting on Fri11/01/20 at 1800, Until Fri11/02/20 at 1759, Recovery (Recovery-Hospital Unit) New Bag 11/01/2020 6:18 PM EST 100 mL/hr 100 mL /hr warfarin (Coumadin) tablet 5 mg 5 mg, Oral, ONCE, 1 dose, On Fri11/01/20 at 2000, DO NOT SPLIT, CRUSH OR OPEN, Routine Given 11/01/2020 8:13 PM EST 5 mg warfarin (Coumadin) tablet 5 mg 5 mg, Oral, ONCE, 1 dose, On Fri11/02/20 at 1700, DO NOT SPLIT, CRUSH OR OPEN, Routine Given 11/02/2020 5:41 PM EST 5 mg warfarin (Coumadin) tablet 7.5 mg 7.5 mg, Oral, ONCE, 1 dose, On Fri11/03/20 at 1700, DO NOT SPLIT, CRUSH OR OPEN, Routine documented in this encounter Active and Recently Administered Medications Times are shown in EST. Scheduled Medication Order 11/01/2020 11/02/2020 11/03/2020 acetaminophen (Tylenol) tablet 1,000 mg 1,000 mg, Oral, EVERY 8 HOURS SCHEDULED, First dose on Fri10/31/20 at 2200, Until Discontinued, Maximum dose of acetaminophen is 4000 mg from all sources in 24 hours. When ordered for pain, acetaminophen should be given even when other ordered pain medications are indicated. , Routine 0543 (Given - Provider: Noe Ny RN)1329 (MAR Hold - Provider: Admin Adt - Reason: Transfer to a Procedural area)1400 (Automatically Held - Provider: Admin Adt)1850 (MAR Unhold - Provider: Admin Adt)2132 (Given - Provider: Vilma Archer RN) 0600 (Given - Provider: Vilma Archer RN)1450 (Given - Provider: April Tarango RN)2200 (Not Given - Provider: Jewell Gonzalez RN - Reason: Patient/family refused) 0523 (Given - Provider: Jewell Gonzalez RN)1400 (Not Given - Provider: Dee Stevens RN - Reason: Patient/family refused) allopurinoL (Zyloprim) tablet 300 mg 300 mg, Oral, DAILY, First dose on Fri11/01/20 at 0900, Until Discontinued, Routine 0810 (Given - Provider: Nick Chaves RN)1329 (NOV Hold - Provider: Admin Adt - Reason: Transfer to a Procedural area)1850 (NOV Unhold - Provider: Admin Adt) 0838 (Given - Provider: Sho Castro RN) 0918 (Given - Provider: Dee Stevens RN) atorvastatin (Lipitor) tablet 80 mg 80 mg, Oral, DAILY, First dose (after last modification) on Fri10/31/20 at 2330, Until Discontinued, Routine 1329 (NOV Hold - Provider: Admin Adt - Reason: Transfer to a Procedural area)1850 (NOV Unhold - Provider: Admin Adt) 0837 (Given - Provider: Sho Castro RN) 0917 (Given - Provider: Dee Stevens RN) ceFAZolin (Ancef) 2 g in dextrose 5% 100 mL infusion (CANCELED) 2 g, Intravenous, EVERY 8 HOURS, 3 doses, First dose on Fri11/01/20 at 1800, Last dose on Fri11/02/20 at 1000, Administer over 30 Minutes, Adjust to 4 hours from intraoperative dose. * Beta-lactam based antibiotics (eg. Ampicillin, Cefazolin, Aztreonam) should be administered within 4 hours of the preceding intraoperative dose. * Vancomycin, Fluoroquinolones, Clindamycin, Gentamicin, and Metronidazole should be administered within 8 hours of the preceding intraoperative dose., Recovery (Recovery-Hospital Unit), Indication for (Active or Suspected): Prophylaxis 2135 (Given - Provider: Vilma Archer RN) 0200 (Not Given - Provider: Vilma Archer RN - Reason: Medication Discontinued) ceFAZolin (Ancef) 2 g in dextrose 5% 100 mL infusion (COMPLETED) 2 g, Intravenous, EVERY 8 HOURS, 2 doses, First dose (after last reorder) on Helen 11/02/20 at 0600, Last dose on Helen 11/02/20 at 1400, Administer over 30 Minutes, Adjust to 4 hours from intraoperative dose. * Beta-lactam based antibiotics (eg. Ampicillin, Cefazolin, Aztreonam) should be administered within 4 hours of the preceding intraoperative dose. * Vancomycin, Fluoroquinolones, Clindamycin, Gentamicin, and Metronidazole should be administered within 8 hours of the preceding intraoperative dose., Recovery (Recovery-Hospital Unit), Indication for (Active or Suspected): Prophylaxis 0559 (Given - Provider: Vilma Archer RN)1451 (Given - Provider: April Tarango RN) celecoxib (CeleBREX) capsule 200 mg 200 mg, Oral, 2 TIMES DAILY, First dose on Fri11/01/20 at 2100, Until Discontinued, Routine 2011 (Not Given - Provider: Vilma Archer RN - Reason: Patient/family refused) 0837 (Given - Provider: Sho Castro RN)2013 (Given - Provider: Jewell Gonzalez RN) 0918 (Given - Provider: Dee Stevens, JACOB) cephALEXin (Keflex) capsule 500 mg 500 mg, Oral, EVERY 6 HOURS SCHEDULED, 28 doses, First dose on Helen 11/02/20 at 1900, Last dose on Helen 11/09/20 at 1200, Routine, Indication for (Active or Suspected): Skin/Skin Structure 1830 (Given - Provider: Miladys Sawant) 0009 (Given - Provider: Jewell Gonzalez RN)0524 (Given - Provider: Jewell Gonzalez RN)1201 (Given - Provider: Dee Stevens, JACOB) furosemide (Lasix) tablet 40 mg 40 mg, Oral, 2 TIMES DAILY, First dose (after last modification) on Fri10/31/20 at 2330, Until Discontinued, Hold for systolic blood pressure less than 95, Routine 0809 (Given - Provider: Nick Chaves RN)1329 (MAR Hold - Provider: Admin Adt - Reason: Transfer to a Procedural area)1700 (Not Given - Provider: Vilma Archer RN - Reason: See comment - Comment: Given at 2019)1850 (MAR Unhold - Provider: Admin Adt)2019 (Given - Provider: Vilma Archer RN - Comment: due during NOV hold) 0837 (Given - Provider: Sho Castro RN)1741 (Given - Provider: April Tarango, JACOB) 0918 (Given - Provider: Dee Stevens, JACOB) insulin lispro (HumaLOG) (100 unit/mL) subcutaneous injection vial 1-5 Units(Linked Group 1) 1-5 Units, Subcutaneous, EVERY 4 HOURS SCHEDULED, First dose (after last modification) on [facility] 11/02/20 at 0800, Until Discontinued, CORRECTION BOLUS [1-4 Units] Sensitive Sliding Scale: [...] a BG of > 240 in 2 hours., Routine 0800 (Not Given - Provider: Sho Castro RN - Reason: Order parameters not met - Comment: BS 125)1235 (Given - Provider: April Tarango RN)1725 (Given - Provider: April Tarango, JACOB)2017 (Given - Provider: Jewell Gonzalez, JACOB) 0009 (Given - Provider: Jewell Gonzalez, JACOB)0343 (Given - Provider: Jewell Gonzalez RN)0800 (Not Given - Provider: Dee Stevens RN - Reason: Order parameters not met - Comment: bg 142)1200 (Given - Provider: Dee Stevens, JACOB) lisinopriL (Prinivil;Zestril) tablet 20 mg 20 mg, Oral, DAILY, First dose on Fri11/03/20 at 0900, Until Discontinued, Hold for systolic blood pressure less than 120, Routine 917 (Given - Provider: Dee Stevens RN) metoprolol succinate XL (Toprol-XL) tablet 200 mg 200 mg, Oral, DAILY, First dose on Fri11/01/20 at 0900, Until Discontinued, DO NOT CRUSH OR OPEN Hold for systolic blood pressure less than 110 or heart rate less than 55, Routine 0810 (Given - Provider: Nick Chaves RN)1329 (NOV Hold - Provider: Admin Adt - Reason: Transfer to a Procedural area)1850 (NOV Unhold - Provider: Admin Adt) 08 (Given - Provider: Sho Castro RN) 09 (Given - Provider: Dee Stevens RN) miconazole (MICOTIN) 2 % powder Topical (Top), 2 TIMES DAILY, First dose on Fri11/02/20 at 1330, Until Discontinued, To pannus 1451 (Given - Provider: April Tarango, JACOB)2018 (Given - Provider: Jewell Gonzalez RN) 09 (Given - Provider: Dee Stevens RN) multivitamin with minerals (THERA-M) tablet 1 tablet 1 tablet, Oral, DAILY, First dose on Fri11/01/20 at 1800, Until Discontinued, Routine 2012 (Given - Provider: Vilma Archer RN) 836 (Given - Provider: Sho Castro RN) 916 (Given - Provider: Dee Stevens RN) pantoprazole EC (Protonix) tablet 20 mg 20 mg, Oral, DAILY, First dose on Fri11/01/20 at 1800, Until Discontinued, DO NOT CRUSH OR OPEN 2012 (Given - Provider: Vilma Archer RN) 08 (Given - Provider: Sho Castro RN) 917 (Given - Provider: Dee Stevens RN) phytonadione (vitamin K1) (Mephyton) tablet 2.5 mg (COMPLETED) 2.5 mg, Oral, ONCE, 1 dose, On Fri11/01/20 at 0600, STAT 0543 (Given - Provider: Noe Ny, JACOB) polyethylene glycoL (Miralax) packet 17 g 17 g, Oral, 2 TIMES DAILY, First dose on Fri10/31/20 at 2115, Until Discontinued, Routine 0900 (Not Given - Provider: Nick Chaves RN - Reason: Contraindicated - Comment: OR today)1329 (NOV Hold - Provider: Admin Adt - Reason: Transfer to a Procedural area)185 ([facility] Unhold - Provider: Admin Adt)2099 (Not Given - Provider: Vilma Archer RN - Reason: Patient/family refused) 0836 (Given - Provider: Sho Castro RN)2099 (Not Given - Provider: Jewell Gonzalez RN - Reason: Patient/family refused) 0900 (Not Given - Provider: Dee Stevens RN - Reason: Patient/family refused) potassium citrate SR (Urocit) tablet TbSR 20 mEq 20 mEq, Oral, 2 TIMES DAILY, First dose on Fri10/31/20 at 2245, Until Discontinued, Routine 0102 (Given - Provider: Noe Ny, JACOB)0809 (Given - Provider: Nick Chaves RN)1329 ([facility] Hold - Provider: Admin Adt - Reason: Transfer to a Procedural area)185 ([facility] Unhold - Provider: Admin Adt)2012 (Given - Provider: Vilma Archer RN) 0837 (Given - Provider: Sho Castro RN)2014 (Given - Provider: Jewell Gonzalez RN) 1200 (Given - Provider: Dee Stevens RN - Comment: med not available) senna-docusate (Pericolace) 8.6-50 mg per tablet 2 tablet 2 tablet, Oral, 2 TIMES DAILY, First dose on Fri10/31/20 at 2115, Until Discontinued, Routine 0810 (Given - Provider: Nick Chaves RN)1329 ([facility] Hold - Provider: Admin Adt - Reason: Transfer to a Procedural area)185 ([facility] Unhold - Provider: Admin Adt)2099 (Not Given - Provider: Vilma Archer RN - Reason: Patient/family refused) 0837 (Given - Provider: Sho Castro, JACOB)2013 (Given - Provider: Jewell Gonzalez, JCAOB) 0917 (Given - Provider: Dee Stevens, JACOB) sodium chloride 0.9 % (flush) flush 5 mL 5 mL, Intravenous, 2 TIMES DAILY, First dose on Fri10/31/20 at 2115, Until Discontinued, Routine 08 (Given - Provider: Nick Chaves RN)1329 ([facility] Hold - Provider: Admin Adt - Reason: Transfer to a Procedural area)1850 ([facility] Unhold - Provider: Admin Adt)2011 (Given - Provider: Vilma Archer RN) 0838 (Given - Provider: Sho Castro RN)2019 (Given - Provider: Jewell Gonzalez RN) 09 (Given - Provider: Dee Stevens, JACOB) warfarin (COUMADIN) daily order reminder Oral, EVERY 24 HOURS, First dose on Fri11/02/20 at 1400, Until Discontinued, If the daily warfarin order has not been placed, contact the Provider to confirm that the order will be written, the dose is held or discontinued. 1400 (Dose confirmed - Provider: April Tarango RN) 1400 (Dose confirmed - Provider: Dee Stevens RN) warfarin (Coumadin) tablet 5 mg (COMPLETED) 5 mg, Oral, ONCE, 1 dose, On Fri11/01/20 at 2000, DO NOT SPLIT, CRUSH OR OPEN, Routine 2012 (Given - Provider: Vilma Archer RN) warfarin (Coumadin) tablet 5 mg (COMPLETED) 5 mg, Oral, ONCE, 1 dose, On Helen 11/02/20 at 1700, DO NOT SPLIT, CRUSH OR OPEN, Routine 174 (Given - Provider: April Tarango RN) warfarin (Coumadin) tablet 7.5 mg 7.5 mg, Oral, ONCE, 1 dose, On Fri11/03/20 at 1700, DO NOT SPLIT, CRUSH OR OPEN, Routine Continuous Medication Order 11/01/2020 11/02/2020 11/03/2020 sodium chloride 0.9% infusion () 100 mL/hr, Intravenous, CONTINUOUS, Starting on Fri11/01/20 at 1800, Until Helen 11/02/20 at 1759, Recovery (Recovery-Hospital Unit) 1818 (New Bag - Provider: Raven Pruett RN) PRN Medication Order 11/01/2020 11/02/2020 11/03/2020 bisacodyL (Dulcolax) suppository 10 mg 10 mg, Rectal, DAILY PRN, Starting on Fri10/31/20 at 202, Until Fri11/03/20 at 1721, Constipation, Administer if needed per patient's routine or if no bowel movement within 48 hours to achieve: (1) One bowel movement every 48 hours, AND (2) without straining. If multiple PRN bowel medications ordered, start with lactulose, then oral bisacodyl, then bisacodyl suppository. Multiple medications may be given concomitantly for constipation., Routine 1329 ([facility] Hold - Provider: Admin Adt - Reason: Transfer to a Procedural area)185 ([facility] Unhold - Provider: Admin Adt) bisacodyl EC (Dulcolax) tablet 10 mg 10 mg, Oral, 2 TIMES DAILY PRN, Starting on Fri10/31/20 at 2023, Until Fri11/03/20 at 1721, Constipation, DO NOT CRUSH OR OPEN Administer if needed per patient's routine or if no bowel movement within 48 hours to achieve: (1) One bowel movement every 48 hours, AND (2) without straining. If multiple PRN bowel medications ordered, start with lactulose, then oral bisacodyl, then bisacodyl suppository. Multiple medications may be given concomitantly for constipation., Routine 1329 ([facility] Hold - Provider: Admin Adt - Reason: Transfer to a Procedural area)1850 ([facility] Unhold - Provider: Admin Adt) BUpivacaine (pf) (Marcaine) (2.5 mg/mL) 0.25% injection (CANCELED) ONCE PRN, Starting on Fri11/01/20 at 1437, Until Fri11/03/20 at 1721, Intra-Operative (Intra-Procedure), Routine 1437 (Given - Provider: Geovani Strange MD)1439 (Given - Provider: Geovani Strange MD - Comment: Joint cocktail; 50 mL 0.25% Bupivicaine mixed with 50 mcg Clonidine(1,000mcg/10mL) and 30 mg Toradol(30mg/mL). All cocktail injected into surgical site.) cloNIDine (pf) (Duraclon) (100 mcg/mL) Epidural injection (CANCELED) ONCE PRN, Starting on Fri11/01/20 at 1440, Until Fri11/03/20 at 1721, Intra-Operative (Intra-Procedure), Routine 1440 (Given - Provider: Geovani Strange MD - Comment: Joint cocktail; 50 mL 0.25% Bupivicaine mixed with 50 mcg Clonidine(1,000mcg/10mL) and 30 mg Toradol(30mg/mL). All cocktail injected into surgical site.) dextrose 10% infusion(Linked Group 2) 250 mL, at 1,000 mL/hr, Intravenous, EVERY 30 MIN PRN, Starting on Fri10/31/20 at 2024, Until Fri11/03/20 at 1721, For BG 50-70 mg/dL: Oral treatment preferred:?? If able to drink, give 120 mL Juice or Regular (not diet) soda OR If NPO, give 15 gram glucose 40% oral gel massaged into buccal mucosa OR if unconscious or uncooperative, give 25 gram (250 mL) Dextrose 10% IV over 15 minutes per protocol OR, if no IV access, 1 mg Glucagon IM. For BG less than 50 mg/dL: Oral treatment preferred:?? If able to drink, give 240 mL Juice or Regular (not diet) soda OR If NPO, give 30 gram glucose 40% oral gel massaged in buccal mucosa OR if unconscious or uncooperative, give 25 gram (250 mL) Dextrose 10% IV over 15 minutes per protocol OR, if no IV access, 1 mg Glucagon IM. Recheck BG in 30 minutes. May repeat juice/soda, gel, dextrose or glucagon once per episode. For persistent hypoglycemia, consider longer-acting treatment for the duration of the active insulin. 1329 ([facility] Hold - Provider: Admin Adt - Reason: Transfer to a Procedural area)1850 ([facility] Unhold - Provider: Admin Adt) gelatin compressed (GELFOAM) sponge (CANCELED) ONCE PRN, Starting on Fri11/01/20 at 1509, Until Fri11/03/20 at 1721, Intra-Operative (Intra-Procedure) 1509 (Given - Provider: Geovani Strange MD - Comment: Mixed in 30,000 units Thrombin and used PRN.) glucagon (Glucagen) (1 mg/mL) injection solution 1 mg(Linked Group 2) 1 mg, Intramuscular, EVERY 30 MIN PRN, Starting on Fri10/31/20 at 2023, Until Fri11/03/20 at 1721, Low blood sugar, For BG 50-70 mg/dL: Oral treatment preferred:?? If able to drink, give 120 mL Juice or Regular (not diet) soda OR If NPO, give 15 gram glucose 40% oral gel massaged into buccal mucosa OR if unconscious or uncooperative, give 25 gram (250 mL) Dextrose 10% IV over 15 minutes per protocol OR, if no IV access, 1 mg Glucagon IM. For BG less than 50 mg/dL: Oral treatment preferred:?? If able to drink, give 240 mL Juice or Regular (not diet) soda OR If NPO, give 30 gram glucose 40% oral gel massaged in buccal mucosa OR if unconscious or uncooperative, give 25 gram (250 mL) Dextrose 10% IV over 15 minutes per protocol OR, if no IV access, 1 mg Glucagon IM. Recheck BG in 30 minutes. May repeat juice/soda, gel, dextrose or glucagon once per episode. For persistent hypoglycemia, consider longer-acting treatment for the duration of the active insulin., Routine 1329 ([facility] Hold - Provider: Admin Adt - Reason: Transfer to a Procedural area)1850 ([facility] Unhold - Provider: Admin Adt) glucose (GLUTOSE) 40% oral geL(Linked Group 2) 15-30 g, Buccal, EVERY 30 MIN PRN, Starting on Fri10/31/20 at 2023, Until Fri11/03/20 at 1721, Low blood sugar, For BG 50-70 mg/dL: Oral treatment preferred:?? If able to drink, give 120 mL Juice or Regular (not diet) soda OR If NPO, give 15 gram glucose 40% oral gel massaged into buccal mucosa OR if unconscious or uncooperative, give 25 gram (250 mL) Dextrose 10% IV over 15 minutes per protocol OR, if no IV access, 1 mg Glucagon IM. For BG less than 50 mg/dL: Oral treatment preferred:?? If able to drink, give 240 mL Juice or Regular (not diet) soda OR If NPO, give 30 gram glucose 40% oral gel massaged in buccal mucosa OR if unconscious or uncooperative, give 25 gram (250 mL) Dextrose 10% IV over 15 minutes per protocol OR, if no IV access, 1 mg Glucagon IM. Recheck BG in 30 minutes. May repeat juice/soda, gel, dextrose or glucagon once per episode. For persistent hypoglycemia, consider longer-acting treatment for the duration of the active insulin. 1 tube contains 15 grams of glucose (net weight of tube = 37.5 grams., Routine 1329 ([facility] Hold - Provider: Admin Adt - Reason: Transfer to a Procedural area)1850 ([facility] Unhold - Provider: Admin Adt) ketorolac (Toradol) (15 mg/mL) injection 15 mg 15 mg, Intravenous, EVERY 6 HOURS PRN, Starting on Fri11/01/20 at 1730, Until Fri11/03/20 at 1721, Pain, Routine 1740 (Given - Provider: Raven Pruett RN) ketorolac (Toradol) (30 mg/mL) injection (CANCELED) ONCE PRN, Starting on Fri11/01/20 at 1440, Until Fri11/03/20 at 1721, Intra-Operative (Intra-Procedure), Routine 1440 (Given - Provider: Geovani Strange MD - Comment: Joint cocktail; 50 mL 0.25% Bupivicaine mixed with 50 mcg Clonidine(1,000mcg/10mL) and 30 mg Toradol(30mg/mL). All cocktail injected into surgical site.) lactulose (Chronulac) (0.67 gram/mL) oral liquid 10 g 10 g, Oral, DAILY PRN, Starting on Fri11/01/20 at 1730, Until Fri11/03/20 at 1721, Constipation, Administer if needed per patient's routine or if no bowel movement within 48 hours to achieve: (1) One bowel movement every 48 hours, AND (2) without straining. If multiple PRN bowel medications ordered, start with lactulose, then oral bisacodyl, then bisacodyl suppository. Multiple medications may be given concomitantly for constipation., Routine lidocaine (Xylocaine) 1% (10 mg/mL) injection 3 mg 3 mg (0.3 mL), Subcutaneous, ONCE PRN, 1 dose, Starting on Fri10/31/20 at 2023, Until Fri11/03/20 at 1721, for discomfort with PIV insertion, Routine 1329 ([facility] Hold - Provider: Admin Adt - Reason: Transfer to a Procedural area)1850 ([facility] Unhold - Provider: Admin Adt) ondansetron (pf) (Zofran) (2 mg/mL) injection 4 mg 4 mg, Intravenous, EVERY 8 HOURS PRN, Starting on Fri10/31/20 at 2023, Until Fri11/03/20 at 1721, Nausea, If multiple antiemetics are ordered, use ondansetron first, prochlorperazine second, metoclopramide third. 132 ([facility] Hold - Provider: Admin Adt - Reason: Transfer to a Procedural area)185 ([facility] Unhold - Provider: Admin Adt) ondansetron (pf) (Zofran) (2 mg/mL) injection 4 mg (CANCELED) 4 mg, Intravenous, EVERY 30 MIN PRN, Starting on Fri11/01/20 at 1644, Until Fri11/01/20 at 1850, Nausea, May repeat 4 mg once in 30 minutes. If multiple antiemetics ordered, use ondansetron first and if ineffective use prochlorperazine second and if ineffective use promethazine, PACU Recovery 174 (Given - Provider: Raven Pruett RN) oxyCODONE (Roxicodone) tablet 10 mg(Linked Group 3) 10 mg, Oral, EVERY 4 HOURS PRN, Starting on Fri10/31/20 at 2023, Until Fri11/03/20 at 1721, Pain, moderate pain (4-6), For moderate pain (4-6). Do not exceed 15 mg in 4 hours. If pain not relieved, call provider., Routine 1329 ([facility] Hold - Provider: Admin Adt - Reason: Transfer to a Procedural area)185 ([facility] Unhold - Provider: Admin Adt) oxyCODONE (Roxicodone) tablet 15 mg(Linked Group 3) 15 mg, Oral, EVERY 4 HOURS PRN, Starting on Fri10/31/20 at 2024, Until Fri11/03/20 at 1721, Pain, severe pain (7-10), For severe pain (7-10). Do not exceed 15 mg in 4 hours. If pain not relieved, call provider., Routine 1329 ([facility] Hold - Provider: Admin Adt - Reason: Transfer to a Procedural area)1850 ([facility] Unhold - Provider: Admin Adt) oxyCODONE (Roxicodone) tablet 5 mg(Linked Group 3) 5 mg, Oral, EVERY 4 HOURS PRN, Starting on Fri10/31/20 at 2023, Until Fri11/03/20 at 1721, Pain, mild pain (1-3), For mild pain (1-3). Do not exceed 15 mg in 4 hours. If pain not relieved, call provider, Routine 1329 ([facility] Hold - Provider: Admin Adt - Reason: Transfer to a Procedural area)185 ([facility] Unhold - Provider: Admin Adt) povidone-iodine 5 % ophthalmic solution (CANCELED) ONCE PRN, Starting on Fri11/01/20 at 1437, Until Fri11/03/20 at 1721, Intra-Operative (Intra-Procedure), Routine 1437 (Given - Provider: Geovani Strange MD - Comment: 30 mL opthalmic betadine mixed in 500 mL normal saline) sodium chloride 0.9 % (flush) flush 5-20 mL 5-20 mL, Intravenous, EVERY 1 MIN PRN, Starting on Fri10/31/20 at 2023, Until Fri11/03/20 at 1721, flush, Flush pertains to all indwelling lines. Flush per protocol found in the job aid using the link provided on this medication record., Routine 1329 ([facility] Hold - Provider: Admin Adt - Reason: Transfer to a Procedural area)1850 ([facility] Unhold - Provider: Admin Adt) thrombin (bovine) (THROMBIN-JMI) solution (CANCELED) ONCE PRN, Starting on Fri11/01/20 at 1509, Until Fri11/03/20 at 1721, Intra-Operative (Intra-Procedure) 1509 (Given - Provider: Geovani Strange MD - Comment: Mixed with 1 gelfoam and used PRN.) thrombin (Bovine) (THROMBINAR) kit (CANCELED) ONCE PRN, Starting on Fri11/01/20 at 1509, Until Fri11/03/20 at 1721, Intra-Operative (Intra-Procedure) 1509 (Given - Provider: Geovani Strange MD - Comment: Mixed with 1 gelfoam and used PRN.) tobramycin (Nebcin) injection (CANCELED) ONCE PRN, Starting on Fri11/01/20 at 1507, Until Fri11/02/20 at 0612, Intra-Operative (Intra-Procedure), Routine 1507 (Given - Provider: Geovani Strange MD - Comment: Mixed with 1g Vancomycin in Stimulan.) vancomycin (Vancocin) injection (CANCELED) ONCE PRN, Starting on Fri11/01/20 at 1508, Until Fri11/02/20 at 0612, Intra-Operative (Intra-Procedure), Routine 1508 (Given - Provider: Geovani Strange MD - Comment: Mixed with 1.2g Tobramycin and Stimulan.) Linked Groups Order Group 1: POCT Fingerstick Glucose (CANCELED) Routine, EVERY 4 HOURS, First occurrence on Fri11/02/20 at 0800, Until Specified, Consider choosing FOUR TIMES A DAY BEFORE MEALS AND AT BEDTIME as frequency for: Patients who have good hypoglycemia awareness: -Patients who are eating meals during the day and sleeping at night -Patient who are otherwise stable And insulin lispro (HumaLOG) (100 unit/mL) subcutaneous injection vial 1-5 UnitsJump to med 1-5 Units, Subcutaneous, EVERY 4 HOURS SCHEDULED, First dose (after last modification) on Fri11/02/20 at 0800, Until Discontinued, CORRECTION BOLUS [1-4 Units] Sensitive Sliding Scale: [...] a BG of > 240 in 2 hours., Routine Group 2: glucose (GLUTOSE) 40% oral geLJump to med 15-30 g, Buccal, EVERY 30 MIN PRN, Starting on Fri10/31/20 at 2023, Until Fri11/03/20 at 1721, Low blood sugar, For BG 50-70 mg/dL: Oral treatment preferred:?? If able to drink, give 120 mL Juice or Regular (not diet) soda OR If NPO, give 15 gram glucose 40% oral gel massaged into buccal mucosa OR if unconscious or uncooperative, give 25 gram (250 mL) Dextrose 10% IV over 15 minutes per protocol OR, if no IV access, 1 mg Glucagon IM. For BG less than 50 mg/dL: Oral treatment preferred:?? If able to drink, give 240 mL Juice or Regular (not diet) soda OR If NPO, give 30 gram glucose 40% oral gel massaged in buccal mucosa OR if unconscious or uncooperative, give 25 gram (250 mL) Dextrose 10% IV over 15 minutes per protocol OR, if no IV access, 1 mg Glucagon IM. Recheck BG in 30 minutes. May repeat juice/soda, gel, dextrose or glucagon once per episode. For persistent hypoglycemia, consider longer-acting treatment for the duration of the active insulin. 1 tube contains 15 grams of glucose (net weight of tube = 37.5 grams., Routine Or dextrose 10% infusionJump to med 250 mL, at 1,000 mL/hr, Intravenous, EVERY 30 MIN PRN, Starting on Fri10/31/20 at 2023, Until Fri11/03/20 at 1721, For BG 50-70 mg/dL: Oral treatment preferred:?? If able to drink, give 120 mL Juice or Regular (not diet) soda OR If NPO, give 15 gram glucose 40% oral gel massaged into buccal mucosa OR if unconscious or uncooperative, give 25 gram (250 mL) Dextrose 10% IV over 15 minutes per protocol OR, if no IV access, 1 mg Glucagon IM. For BG less than 50 mg/dL: Oral treatment preferred:?? If able to drink, give 240 mL Juice or Regular (not diet) soda OR If NPO, give 30 gram glucose 40% oral gel massaged in buccal mucosa OR if unconscious or uncooperative, give 25 gram (250 mL) Dextrose 10% IV over 15 minutes per protocol OR, if no IV access, 1 mg Glucagon IM. Recheck BG in 30 minutes. May repeat juice/soda, gel, dextrose or glucagon once per episode. For persistent hypoglycemia, consider longer-acting treatment for the duration of the active insulin. Or glucagon (Glucagen) (1 mg/mL) injection solution 1 mgJump to med 1 mg, Intramuscular, EVERY 30 MIN PRN, Starting on Fri10/31/20 at 2023, Until Fri11/03/20 at 172, Low blood sugar, For BG 50-70 mg/dL: Oral treatment preferred:?? If able to drink, give 120 mL Juice or Regular (not diet) soda OR If NPO, give 15 gram glucose 40% oral gel massaged into buccal mucosa OR if unconscious or uncooperative, give 25 gram (250 mL) Dextrose 10% IV over 15 minutes per protocol OR, if no IV access, 1 mg Glucagon IM. For BG less than 50 mg/dL: Oral treatment preferred:?? If able to drink, give 240 mL Juice or Regular (not diet) soda OR If NPO, give 30 gram glucose 40% oral gel massaged in buccal mucosa OR if unconscious or uncooperative, give 25 gram (250 mL) Dextrose 10% IV over 15 minutes per protocol OR, if no IV access, 1 mg Glucagon IM. Recheck BG in 30 minutes. May repeat juice/soda, gel, dextrose or glucagon once per episode. For persistent hypoglycemia, consider longer-acting treatment for the duration of the active insulin., Routine Group 3: oxyCODONE (Roxicodone) tablet 5 mgJump to med 5 mg, Oral, EVERY 4 HOURS PRN, Starting on Fri10/31/20 at 2023, Until Fri11/03/20 at 172, Pain, mild pain (1-3), For mild pain (1-3). Do not exceed 15 mg in 4 hours. If pain not relieved, call provider, Routine Or oxyCODONE (Roxicodone) tablet 10 mgJump to med 10 mg, Oral, EVERY 4 HOURS PRN, Starting on Fri10/31/20 at 2023, Until Fri11/03/20 at 1721, Pain, moderate pain (4-6), For moderate pain (4-6). Do not exceed 15 mg in 4 hours. If pain not relieved, call provider., Routine Or oxyCODONE (Roxicodone) tablet 15 mgJump to med 15 mg, Oral, EVERY 4 HOURS PRN, Starting on Fri10/31/20 at 2023, Until Fri11/03/20 at 1721, Pain, severe pain (7-10), For severe pain (7-10). Do not exceed 15 mg in 4 hours. If pain not relieved, call provider., Routine documented in this encounter Care Teams [employer] Att[employer] Relationship Specialty Start Date End Date Nick Nettles MD [address] [place] [address] PCP - General Internal Medicine 10/05/19 documented as of this encounter
--- OUTSIDE RECORDS SUMMARY | 2024-08-20 06:21 | XMS_ITS | Encounter Summary ---
[facility] [place] [address] Care Team Providers Care Statistical Typist Name Role Phone Nick Nettles MD Primary Care Provider [phone] Reason for Visit * Auth/Cert Specialty Diagnoses / Procedures Referred By Carla soto Referred To Contact Diagnoses Failed total hip arthroplasty, initial encounter Class 3 severe obesity due to excess calories with serious comorbidity and body mass index (BMI) of 60.0 to 69.9 in adult Referral ID Status Reason Start Date Expiration Date Visits Re quested Visits Authorized [id number] 1 1 Encounter Details Date Type Department Care Team (Late st Contact Info) Description 11/01/2020 1:30 PM EST Anesthesia [place] [address] Ashvin Soliman MD [facility] [place] [address] Tres Ching MD [facility] [place] [address] Anesthesia Record Procedure Summary Procedure Name Responsible Anesthesiologist Anesthesia Start Time Anesthesia Stop Time @TOTAL HIP REVISION ARTHROPLASTY, COMPLETE (WRVU 30.28) (Left: Hip) Ashivn Soliman MD 11/01/20 1330 11/01/20 1705 Events Date Time Event Comment 11/01/2020 1134 1330 AN Verify 1330 Start 1330 An Start Data 1339 An Induction 1344 An Intubation 1400 Anesthesia Ready 1455 ABG Data Arterial Blood Gas result: pH 7.32 pCO2 48 pO2 116 %O2 Sat 96 FiO2 52 HCO3 24.7 BE -1.4 Hb 17.7 K 3.9 Glucose 117 Lactate 1.5 1653 Extubation/LMA Out Positione d sitting, Vt > 550, oropharynx suctioned, following commands, extubated to simple facemask without event. Transferred to pacu with home bi-pap not needed at this time. 1656 an stop data 1704 Recovery or ICU Handoff Cecelia ent care was transferred to the destination unit staff after review of the patient's medical history, current anesthetic/surgical status and plan, according to the Provider Handoff Checklist. 1705 Stop Meds Name Total fentaNYL 250 mcg IV Lidocaine 100 mg Propofol 350 mg Rocuronium 70 mg PHENYLephrine 560 mcg Ondansetron 4 mg PHENYLephrine INF 6,510 mcg Succinylcholine 200 mg ceFAZolin 3 g Tranexamic Acid 2,500 mg Esmolol 60 mg HYDROmorphone 0.8 mg Sugammadex 400 mg Lactated Ringers 1,000 mL Sodium Chloride 0.9% 1,500 mL * Agents Name O2 Air N2O Sevoflurane (et) * Blood No blood administrations on file. Lines, Drains, and Airways Type Details Placement Removal NPWT 11/01/20; Left, lateral; hip; Prevena 11/01/20 0000 by Amanda Piedra, tour agent 09/11/14; leg; ulceration, venous; existed prior to admission; LDA not present upon assessment; 11/02/20; 0944 09/11/14 0000 by Zaira Bates RN 11/02/20 0944 by April Tarango, RN Incision 09/01/15; abdomen; laparoscopic punctures (specify), transverse; LDA not present upon assessment; 11/02/20; 0945 09/01/15 0000 by Terri Jenkins RN 11/02/20 0945 by April Tarango, RN (RETIRED) Peripheral IV Line - Single Lumen 10/31/20 (in place upon arrivalto room); 2029 (in place upon arrival to room); cephalic vein (lateral side of arm), right; 11/03/20; 1329 10/31/20 2030 by Noe Ny RN 11/03/20 1329 by Amanda Hebert RN ETT Mask Ventilation: No t Attempted (0); ETT Type: Cuffed, Oral; ETT Size: 7.5 mm; Indirect: Video; Notes: Asleep, Pre-O2, Cricoid Pressure, Stylette, Troop Elev.; Attempts: 1; Laryngoscopy Grade: 1; ETT Placement Verified By: Auscultation, Capnometry, Visual; Secured at Teeth: 23 cm; Inserted by: CRISTINA Moreno; Removal Date: 11/01/20; Removal Time: 165211/01/20 134 by Reed Moreno CRNA 11/01/20 165 by Reed Moreno CRNA (RETIRED) Peripheral IV Line - Single Lumen 11/01/20; 1402; median vein (underside of arm), right; grpb-ekz-ifwire catheter system; 18 gauge; 11/03/20; 1329 11/01/20 1402 by Reed Moreno CRNA 11/03/20 1329 by Amanda Hebert RN Arterial Line 11/01/20; 1402; radi al artery; 20 gauge; CRISTINA Moreno; Sterile Prep, Sterile Gloves; 11/01/20; 1827 11/01/20 1402 by Reed Moreno CRNA 11/01/20 1827 by Raven Pruett RN Urethral Catheter 11/01/20; 1415; Surg clovis longer than 2 hours, Physician order; indwelling double lumen catheter; latex; 14; inserted at this facility; 1; 5; 10; 11/02/20; 0609 11/01/20 1415 by Amanda Piedra RN 11/02/20 0609 by Vilma Archer RN Incision 11/01/20; 1422; Left , lateral; hip; vertical; 05/06/22 (LDA cleanup utility RA#[id number]); 1715 (LDA cleanup utility RA#[id number]) 11/01/20 1422 by Amanda Piedra RN 05/06/22 1715 by Kenya Clancy documented in this encounter Social History Tobacco Use Types Packs/Day [...] on file documented as of this encounter OR Notes * Anesthesia Postprocedure Evaluation - Ashvin Soliman MD - 11/01/2020 5:40 PM EST Department of Anesthesiology Post-procedure Note Patient: Jaime Crouch Procedure Summary Date: 11/01/20 Room / Location: [address] MAIN OR Anesthesia Start: 1330 Anesthesia Stop: 1705 Procedures: TOTAL HIP REVISION ARTHROPLASTY, COMPLETE (WRVU 30.28) (Left Hip) MODIFIER PINNACLE ACETABULUM DEPUY (N/A Hip) Diagnosis: (Left Femoral Head component fracture) Surgeons: Geovani Strange MD Responsible Provider: Ashvin Soliman MD Anesthesia Type: general ASA Status: 3 All Anesthesia Providers: Anesthesiologist: Ashvin Soliman MD; Tres Ching MD DENTURE LABORATORY TECHNICIAN: Reed Moreno CRNA Vitals Value Taken Time BP 112/68 11/01/20 1730 Temp 36.4 ??C (97.5 ??F) 11/01/20 1700 Pulse 85 11/01/20 1739 Resp 19 11/01/20 1739 SpO2 100 % 11/01/20 1733 Pain Level 4 11/01/20 1700 Vitals shown include unvalidated device data. Patient Location: PACU/[facility] Level of Consciousness: Awake and Alert Pain Management: Satisfactory Analgesia PONV: None Cardiovascular Status: At Baseline and Hemodynamically Stable Respiratory Status: Supplemental O2 (NC or FM) and Stable Respiratory Status Postoperative Fluid Status: Intravascular EUvolemia Possible Anesthetic Complications: NONE apparent at time of evaluation Final Primary Anesthesia Type: General (The anesthetic type performed was the same as planned.) Comments: Extubated sitting up without issue. Did not need BiPAP after extubating in the OR. Doing well. Ashvin Soliman MD * Anesthesia Preprocedure Evaluation - Tres Ching MD - 11/01/2020 9:06 AM EST Pre-Anesthesia Evaluation for: Jaime hanley 75 y.o. male. Procedure(s): TOTAL HIP REVISION ARTHROPLASTY, COMPLETE (WRVU 30.28) MODIFIER PINNACLE ACETABULUM DEPUY Patient Active Problem List Diagnosis ??? Failed total hip arthroplasty, initial encounter ??? Class 3 severe obesity due to [...] lower extremity ??? Cholangitis ??? Morbid obesity Severe Class 3 Obestity with BMI or 62. Patient wanted bariatric surgery but was above the age limit. [facility] : 10/02/2017. Weight 435 lbs. Metformin was started. He is scheduled for year-long healthy lifestyles program. ??? CAD Hospitalized for unstable angina, had PCI in proximal LAD and POBA on ostial D1 in 02/2007 ??? Nonsustained ventricular tachycardia ??? Hypertension ??? Suspected cholecystitis vs cholangitis S/p sphincerotomy - s/p saadia 09/01/15 ??? Atrial fibrillation On warfarin ??? TOM on CPAP ??? Phimosis ??? Nephrolithiasis Past Medical History: Diagnosis Date ??? ASCVD (arteriosclerotic cardiovascular disease) 1993 first NM 1992, stent to LAD in 2006 ??? [...] ERCP performed by Nick Broussard MD at [facility] ENDOSCOPY ??? PRO ERCP,DIAGNOSTIC N/A 08/30/2015 ERCP performed by Nick Broussard MD at [facility] MAIN OR ??? PRO ERCP,DIAGNOSTIC N/A 08/30/2015 ERCP performed by Nick Broussard MD at [facility] ENDOSCOPY ??? PRO LAP, CHOLECYSTECTOMY N/A 09/01/2015 LAPAROSCOPIC CHOLECYSTECTOMY performed by Esha Moon MD at [facility] MAIN OR ??? TOTAL HIP ARTHROPLASTY Bilateral Social History Tobacco Use ??? Smoking status: Former Smoker Quit date: 01/21/1967 Years since quittin.8 ??? Smokeless tobacco: Never Used Substance Use Topics ??? Alcohol use: Yes Comment: varies on kind, drinks maybe once a week\ Social History Substance and Sexual Activity Drug Use No Allergies Allergen Reactions ??? Metformin Medications: MAR and/or home medications have been reviewed. Physical Exam: Patient Vitals for the past 24 hrs: Temp Heart Rate From SP02 Pulse Resp BP SpO2 O2 Device 10/31/20 1322 36.3 ??C (97.3 ??F) -- 84 20 137/82 97 % RA 10/31/20 1946 36.7 ??C (98.1 ??F) -- 78 20 (!) 116/97 96 % RA 10/31/20 2202 36.5 ??C (97.7 ??F) 81 bpm -- 18 120/78 95 % RA 11/01/20 0105 36.4 ??C (97.5 ??F) 81 bpm -- 18 110/76 94 % CPAP 11/01/20 0416 36.4 ??C (97.5 ??F) (!) 101 bpm -- 20 124/80 95 % CPAP 11/01/20 0736 36.8 ??C (98.2 ??F) 73 bpm -- 18 130/82 93 % RA 11/01/20809 -- (!) 102 bpm -- -- 136/70 -- -- 11/01/20810 -- 82 bpm -- -- -- 96 % -- Body mass index is 53.72 kg/m??. Weight: (!) 169.8 kg (374 lb 6.4 oz) Airway Assessment: Mallampati: II TM distance: >3 FB Neck ROM: full Cardiovascular Assessment: Rhythm: regular Rate: normal Pulmonary Assessment: breath sounds clear to auscultation Dental Assessment: Misc Assessment: IV access: Peripheral line Anesthesia Plan: ASA 3 general, with a(n) intravenous induction Region - Other Informed Consent: Anesthetic plan and risks discussed with patient. Use of blood products discussed with patient who consented to blood products. Attending NOTE Brief HPI: 75 y.o. with failed LEFT NAIDA to OR for revision LEFT NAIDA Diagnosis ??? Nephrolithiasis ??? Hypertension ??? Atrial fibrillation (chronic) ??? TOM on BiPAP ??? Morbid obesity ??? CAD ??? Hx of Nonsustained ventricular tachycardia 2014 ??? Chronic venous insufficiency ??? Venous stasis ulcer of left lower extremity ??? Hx of Pulmonary embolism 10 yrs ago ??? (HFpEF) heart failure with preserved ejection fraction ??? Type 2 diabetes mellitus with circulatory disorder, without long-term current use of insulin ??? Failed total hip arthroplasty Past Medical History: Diagnosis Date ??? ASCVD (arteriosclerotic cardiovascular disease) 1993 first NM 1992, stent to LAD in 2006 ??? [...] stasis ulcer of left lower extremity 10/17/2015 BP Readings from Last 3 Encounters: 11/01/20 136/70 02/24/19 110/78 07/01/18 147/90 Cardiac Symptoms: denies EKG: afib w/ PVCs; LAD; inf and septal infarct pattern ECHO: 2018 EF 55%; mild MR/TR; PASP 40 LABS: Lab Results Component Value Date HGB 17.5 (H) 11/01/2020 PLATELET 251 11/01/2020 INR 2.0 11/01/2020 NA 141 11/01/2020 K 4.0 11/01/2020 CREATININE 0.79 (L) 11/01/2020 Type and Screen: Lab Results Component Value Date ABORH O Pos 10/31/2020 Past anesthetic problems: denies Previous airway notes (on eDH): CMAC grade 1; MV w/ OPA NPO status: Reviewed and appropriate Anesthetic Plan: GETA; post op BiPAP Monitoring: Standard ASA monitors; [facility] Note documented in this encounter Plan of Treatment Not on file documented as of this encounter Visit Diagnoses Not on filedocumented in this encounter Administered Medications Inactive Administered Medications - up to 3 most recent administrations Medication Order MAR Action Action Date Dose Rate Site ceFAZolin (Ancef) 1 g in dextrose 5% 50 mL infusion Intravenous, PRN, Starting on Fri11/01/20 at 1402, Until Fri11/01/20 at 1706, Administer over 30 Minutes, Anesthesia Intra-op Given 11/01/2020 2:02 PM EST 3 g esmoloL (Brevibloc) (10 mg/mL) injection Intravenous, PRN, Starting on Fri11/01/20 at 1505, Until Fri11/01/20 at 1706, Anesthesia Intra-op, Routine Given 11/01/2020 3:24 PM EST 40 mg Given 11/01/2020 3:05 PM EST 20 mg fentaNYL (pf) (50 mcg/mL) multi-dose injection Intravenous, PRN, Starting on Fri11/01/20 at 1400, Until Fri11/01/20 at 1706, Anesthesia Intra-op, Routine Given 11/01/2020 2:53 PM EST 50 mcg Given 11/01/2020 2:22 PM EST 100 mcg Given 11/01/2020 2:00 PM EST 50 mcg HYDROmorphone (Dilaudid) (2 mg/mL) multi-dose injection solution Intravenous, PRN, Starting on Fri11/01/20 at 1553, Until Fri11/01/20 at 1706, Anesthesia Intra-op, Routine Given 11/01/2020 3:53 PM EST 0.8 mg lactated ringers infusion Intravenous, CONTINUOUS PRN, Starting on Fri11/01/20 at 1330, Until Fri11/01/20 at 1706, Anesthesia Intra-op New Bag 11/01/2020 3:21 PM EST New Bag 11/01/2020 1:30 PM EST lidocaine (pf) (Xylocaine) (20 mg/mL) 2% injection syringe Intravenous, PRN, Starting on Fri11/01/20 at 1339, Until Fri11/01/20 at 1706, Anesthesia Intra-op, Routine Given 11/01/2020 1:39 PM EST 100 mg ondansetron (pf) (Zofran) (2 mg/mL) injection Intravenous, PRN, Starting on Fri11/01/20 at 1542, Until Fri11/01/20 at 1706, Anesthesia Intra-op, Routine Given 11/01/2020 3:42 PM EST 4 mg PHENYLephrine (Leon-Synephrine) (80 mcg/mL) in sodium chloride 0.9% 250 mL infusion Intravenous, CONTINUOUS PRN, Starting on Fri11/01/20 at 1410, Until Fri11/01/20 at 1706, Anesthesia Intra-op, Routine Rate/Dose Change 11/01/2020 4:35 PM EST 20 mcg/min 15 mL/hr Rate/Dose Change 11/01/2020 4:33 PM EST 40 mcg/min 30 mL/h r Rate/Dose Change 11/01/2020 3:58 PM EST 60 mcg/min 45 mL/h r PHENYLephrine in NS (PF) (LEON-SYNEPHRINE) 0.8 mg/10 mL (80 mcg/mL) multi-dose injection Syrg Intravenous, PRN, Starting on Fri11/01/20 at 1355, Until Fri11/01/20 at 1706, Anesthesia Intra-op, Routine Given 11/01/2020 4:30 PM EST 80 mcg Given 11/01/2020 3:58 PM EST 80 mcg Given 11/01/2020 3:34 PM EST 80 mcg propofoL (Diprivan) 10 mg/mL bolus injection (Anesthesia) Intravenous, PRN, Starting on Fri11/01/20 at 1339, Until Fri11/01/20 at 1706, Anesthesia Intra-op Given 11/01/2020 1:39 PM EST 350 mg rocuronium (Zemuron) (10 mg/mL) multi-dose injection Intravenous, PRN, Starting on Fri11/01/20 at 1339, Until Fri11/01/20 at 1706, Anesthesia Intra-op, Routine Given 11/01/2020 2:39 PM EST 20 mg Given 11/01/2020 1:51 PM EST 40 mg Given 11/01/2020 1:39 PM EST 10 mg sodium chloride 0.9% infusion Intravenous, CONTINUOUS PRN, Starting on Fri11/01/20 at 1425, Until Fri11/01/20 at 1706, Anesthesia Intra-op New Bag 11/01/2020 3:21 PM EST New Bag 11/01/2020 2:25 PM EST succinylcholine (Anectine;Quelicin) (20 mg/mL) injection Intravenous, PRN, Starting on Fri11/01/20 at 1339, Until Fri11/01/20 at 1706, Anesthesia Intra-op, Routine Given 11/01/2020 1:39 PM EST 200 mg sugammadex (Bridion) 100 mg/mL injection Intravenous, PRN, Starting on Fri11/01/20 at 1645, Until Fri11/01/20 at 1714, Anesthesia Intra-op, Routine Given 11/01/2020 4:45 PM EST 400 mg tranexamic acid (Cyklokapron) (100 mg/mL) IV bolus Intravenous, Administer over 8 Hours, PRN, Starting on Fri11/01/20 at 1411, Until Fri11/01/20 at 1706, Anesthesia Intra-op, Routine Given 11/01/2020 2:11 PM EST 2,500 mg documented in this encounter Care Teams Statistical Typist Relationship Specialty Start Date End Date Nick Nettles MD [address] [place] [address] PCP - General Internal Medicine 10/05/19 documented as of this encounter
--- OUTSIDE RECORDS SUMMARY | 2024-08-20 06:21 | XMS_ITS | Encounter Summary ---
Author Organization Formerly [facility], Later [facility] Address [facility] [place] [address] Care Team Providers Care Tax Senior Associate Name Role Phone Nick Nettles MD Primary Care Provider [phone] Reason for Visit * Reason Comments Right [...] Expiration Date Visits Re quested Visits Authorized [id number] 1 1 Encounter Details Date Type Department Care Team (Late st Contact Info) Description 11/01/2020 12:46 PM EST - 11/01/2020 3:10 PM EST [place] [id number] Geovani Strange MD [facility] [place] [address] @TOTAL HIP REVISION ARTHROPLASTY, COMPLETE (WRVU ) Social History Tobacco Use Types Packs/Day Years [...] Sign Reading Time Taken Comments Blood Pressure 127/83 11/01/2020 11:22 AM EST Pulse 78 10/31/2020 7:46 PM EST Temperature 36.6 ??C (97.9 ??F) 11/01/2020 1 1:22 AM EST Respiratory Rate 20 11/01/2020 11:2 2 AM EST Oxygen Saturation 94% 11/01/2020 11: 22 AM EST Inhaled Oxygen Concentration - - Weight 169.8 kg (374 lb 5.5 oz) 021 11:22 AM EST Height 177.8 cm (5' 10) 11/01/2020 11: 22 AM EST Body Mass Index 53.71 11/01/2020 11:22 AM EST documented in this encounter Discharge Summaries * Blank Bowers, INSTRUCTIONAL TECHNOLOGY TEACHER - 11/01/2020 4:16 PM EST Images from the original note were not included. Discharge Summary Patient Name: Jaime Crouhc Patient Age: 75 y.o. Language: Montenegrin Race: White Ethnicity: Not nor Admit date: [...] Center 11/08/2020 8:30 AM Yaneth Sage RVT [facility] VAS LAB JOHNNA BROOKS 11/08/2020 9:00 AM Delroy More MD [facility] V SURG [facility] 11/16/2020 9:30 AM [facility] DX ROOM 3 MH Xray [facility] Rad 11/16/2020 10:30 AM Jeffrey Cuevas MD [facility] ORTH 3C [facility] Inpatient Provider Contact Information: Geovani Strange MD Orthopedics: [phone] After hours and weekends, call [facility] Metal Sponge Making Machine Operator, , and have the Orthopedic resident paged. [...] Fellow * Delroy Brooks PA - Physician Service Administrator Procedure(s): LEFT TOTAL HIP REVISION ARTHROPLASTY, COMPLETE [...] was contacted initially by Scott Dominguez in [facility] who assumed care of this patient [...] had an out-patient appointment with Vascular on 11/08/20. Due to difficulty mobilizing, Vascular saw the [...] MD Internal Medicine, PGY3 FORTUNATO Pager # [phone] Attestation signed by Amber Castro MD at [...] primarily been managed by wound care at [facility]. The patient has never seen a [...] patient should continue seeing wound care at [facility] once discharged, as he is. Elvira [...] wbc, hgb, hct plt Recent Labs 11/03/20 03111/02/20 0346 11/01/20 0352 WBC 11.3* 12.5* 8.1 HGB 14.7 15.0 17.5* HCT 47.1 49.1* 54.1* PLATELET 225 252 251 Last 3 Lytes Recent Labs 11/03/20 03111/02/20 0346 11/01/20 0352 NA 141 141 141 K 4.5 4.4 4.0 CL 107 106 106 CO2 23 24 25 BUN 23* 24* 19 CREATININE 0.78* 0.90 0.79* Last 3 Coags Recent Labs 11/03/20 03111/02/20 0346 11/01/20 1129 10/31/20 2252 10/31/20 1806 [...] this report, please contact the number below. Electronically signed by: Slim Wright MD, [facility] ([phone]), at 11/01/2020 6:49 PM XR Pelvis (Generic) Result Date: 10/31/2020 EXAMINATION: XR [...] regarding this report, please contact thenumber below. Electronically signed by: Seymour Galaviz MD, [facility] ([phone]), at 10/31/2020 6:56 PM SCAN DOC: TELEMETRY STRIPS Result Date: 11/01/2020 Ordered [...] regarding this report, please contact thenumber below. Electronically signed by: Seymour Galaviz MD, [facility] ([phone]), at 10/31/2020 6:56 PM XRay Chest One View Result Date: 10/31/2020 EXAMINATION: [...] this report, please contact the number below. Electronically signed by: Seymour Galaviz MD, [facility] ([phone]), at 10/31/2020 7:19 PM Pending Studies and Lab Data at Discharge: Order Name Source Comment Collection Info Order Time SPECIMEN TO PATHOLOGY Scar and synovium rule out infection OR 12 [id number] Left Femoral Head component fracture scar and synovium rule out infection excision 11/01/2020 2:35 PM Time specimen removed from patient: 2:34 PM Number of tissue samples (in container) 1 Transfusions: No Discharge Conditions/Prognosis: Stable, awake, and alert. Mobilizing as noted above, pain controlled on oral medications. Discharge to: Rehab [facility] [address] [place], [place] [id number] Updated Allergies/ADRs: Allergies Allergen Reactions ??? Metformin [...] to patient's PCP, Dr. Nick Nettles - [phone]. Office phone: [phone]. 2. Activity: Enhanced: Full weight bearing as [...] patient should continue seeing wound care at [facility] once discharged. 11. Unna boot LLE [...] INR drawn, please call Dr. Nettles's office ([phone]) for further dose instructions. Warfarin (Coumadin??) should [...] not take or discontinue any prescription or xjjf-hrn-bbzrmgy medications without asking your doctor or pharmacist [...] bowel movement. You can also take an qmry-zrq-neawrig medication, Miralax if needed to combat constipation. [...] the incision provided there is no drainage.. Sutures/Hines: 1. Staple/suture removal 3 weeks after surgery (approximately 11/21/2020- probably at your follow-upOrtho appt on 11/16/2020). Prevena Incisional VAC: 1. You have an incisional VAC (vacuum or negative pressure dressing) on your left hip. This is a one-time use system that will work for 7 days after application. 2. The dressing will stay in place for 7 days. When the small [place] of lights on the front of the [...] as much as possible. Call your doctor ([phone]) if you develop: 1. Fever greater than 100.5 2. Severe nausea or vomiting 3. Increasing pain that is not controlled by pain medications 4. Increasing redness, swelling, or drainage from incisions 5. Change in sensation FOLLOW-UP APPOINTMENTS: 1. You will have follow-up appointments at [facility] as indicated below in Future Appointment and Orders. 2. You will need to have x-rays prior to your follow-up appointment on 11/16/2020. Please come to Radiology, desk 3T, 1 hour BEFORE that appointment for these x-rays. Future Appointments Date Time Provider Department Center 11/08/2020 8:30 AM Yaneth Sage RVT [facility] VAS LAB JOHNNA BROOKS 11/08/2020 9:00 AM Delroy More MD [facility] V SURG [facility] 11/16/2020 9:30 AM [facility] DX ROOM 3 MH Xray [facility] Rad 11/16/2020 10:30 AM Jeffrey Cuevas MD [facility] ORTH [address] [place] [address] If you have questions or concerns: Friday [...] AM Yaneth Sage RVT Vascular Lab at [facility] Arrive at: Advertising Photographer Area 11/08/2020 9:00 AM Delroy More MD Vascular Surgery at [facility] Arrive at: Advertising Photographer Area 3V [phone] Check-in: [facility] 3V. 11/16/2020 9:30 AM [facility] ROOM 3 XRay at [facility] Arrive at: Advertising Photographer Area 3T [phone] Please go to Advertising Photographer Area 3T ([place] Location). 11/16/2020 10:30 AM Jeffrey Cuevas MD Orthopaedics at [facility] Arrive at: Advertising Photographer Area 3C [phone] Primary Care Provider: Nick Nettles MD [phone] Discharge References/Attachments None documented in this encounter [...] dressing * Patient Instructions* Robinson Blank P, INSTRUCTIONAL TECHNOLOGY TEACHER - 11/01/2020 4:18 PM EST Activity: 1. [...] INR drawn, please call Dr. Nettles's office ([phone]) for further dose instructions. Warfarin (Coumadin??) should [...] not take or discontinue any prescription or ziyo-gnu-ptnhlti medications without asking your doctor or pharmacist [...] bowel movement. You can also take an yjje-lkj-nyzjdmv medication, Miralax if needed to combat constipation. [...] the incision provided there is no drainage.. Sutures/Mariano: 1. Staple/suture removal 3 weeks after surgery (approximately 11/21/2020- probably at your follow-upOrtho appt on 11/16/2020). Prevena Incisional VAC: 1. You have an incisional VAC (vacuum or negative pressure dressing) on your left hip. This is a one-time use system that will work for 7 days after application. 2. The dressing will stay in place for 7 days. When the small [place] of lights on the front of the [...] as much as possible. Call your doctor ([phone]) if you develop: 1. Fever greater than 100.5 2. Severe nausea or vomiting 3. Increasing pain that is not controlled by pain medications 4. Increasing redness, swelling, or drainage from incisions 5. Change in sensation FOLLOW-UP APPOINTMENTS: 1. You will have follow-up appointments at [facility] as indicated below in Future Appointment and Orders. 2. You will need to have x-rays prior to your follow-up appointment on 11/16/2020. Please come to Radiology, desk 3T, 1 hour BEFORE that appointment for these x-rays. Future Appointments Date Time Provider Department Center 11/08/2020 8:30 AM Yaneth Sage RVT [facility] VAS LAB JOHNNA BROOKS 11/08/2020 9:00 AM Delroy More MD [facility] V SURG [facility] 11/16/2020 9:30 AM [facility] DX ROOM 3 Xray [facility] Rad 11/16/2020 10:30 AM Jeffrey Cuevas MD [facility] ORTH 3C [facility] If you have questions or concerns: Friday [...] EST Patient accepted SWING bed offer at: [facility] Acute Rehabilitation and Sub-Acute (Swing) Rehab Levels of Care [address] [place] [address] Transportation: ambulance Ambulance transportation is medically necessary at discharge related to 2xassist for transfers, moderate to severe pain on movement, inability to maintain erect seated position/ pain on movement, medical imaging tech required, morbid obesity. I have discussed Medicare/Private Insurance reimbursement guidelines for ambulance transport. Patient verbalize understanding of their potential financial obligation and agree with ambulance transport. ER * Johnna Arroyo RN - 11/03/2020 10:46 AM EST Office of Care Management/Oyster Preparer Patient Name: Jaime Crouch : 1945 Patient has been offered a swing bed at [facility] for today. [facility] arranged for a 3pm transport. Ambulance will need: Medicare ambulance form completed and signed (MD or Supervisor Shrimp [place]ond RN/EVISCERATOR) Copy of patient demographics [place] [facility] DNR/DNI order, if active MD to MD report to Dr. Carter at [phone]. Please call Nursing Report to [phone] ask for electrical design technologist. Info to accompany patient: Copies of Medication Administration Records and IV sheets for past 10 days. Plan: Oyster Preparer will be available to the patient and Supervisor [place]ond-RN and/or Social Workerfor further assistance. Patient will be discharged to: [facility] JOHNNA ARROYO RN, Oyster Preparer * Jeffrey Cuevas MD - 11/03/2020 6:49 [...] Center 11/08/2020 8:30 AM Yaneth Sage RVT [facility] VAS LAB JOHNNA BROOKS 11/08/2020 9:00 AM Delroy More MD [facility] V SURG [facility] 11/16/2020 9:30 AM [facility] DX ROOM 3 Xray [facility] Rad 11/16/2020 10:30 AM Jeffrey Cuevas MD [facility] ORTH 3C [facility] * Jewell Gonzalez RN - 11/03/2020 2:12 [...] He had his home unit setup at [facility] upon initial assessment this evening, humidity [...] assist with ADL's Surveillance [continuous indirect monitoring]: [place], Purposeful Rounding, Nurse Knowledge Exchange at Bedside, Bed Alarm Set * Yaneth Parsons RN - 11/02/2020 4:21 PM EST Based on discussions with the multi-disciplinary healthcare team, the patient would benefit from inpatient rehabilitation level of care at discharge. ?? I have met with the patient to discuss discharge planning needs. I have provided the [facility], Office of Care Management letter from the Asl Interpreter pertaining to rehab referrals. I have also provided a letter describing our affiliations within the [facility] and educatedthem about their right to choose where referrals are. ?? Provided patient with [facility] Star Quality Rating for SNF, LTAC and/or [...] The patient have requested referrals to: 1. [facility] Acute Rehabilitation and Sub-Acute (Swing) Rehab Levels of Care [address] [place] [address] ?? 2. [facility] (Swing) ([facility]) [address] [place] [address] ?? PHONE: [phone] FAX: [phone] ?? Expected date of discharge: 11/03-11/04 Note routed to Oyster Preparer who will communicate referrals to facilities and [...] ??? ASCVD (arteriosclerotic cardiovascular disease) 1993 first [place] 1992, stent to LAD in 2006 ??? [...] ERCP performed by Nick Broussard MD at [facility] ENDOSCOPY ??? PRO ERCP,DIAGNOSTIC N/A 08/30/2015 ERCP performed by Nick Broussard MD at [facility] MAIN OR ??? PRO ERCP,DIAGNOSTIC N/A 08/30/2015 ERCP performed by Nick Broussard MD at [facility] ENDOSCOPY ??? PRO LAP, CHOLECYSTECTOMY N/A 09/01/2015 LAPAROSCOPIC CHOLECYSTECTOMY performed by Esha Moon MD at [facility] MAIN OR ??? TOTAL HIP [...] of AE, increased time. assist w/ shoes, nurse wound x 2/wk for dressing changes on feet. [...] understands that he will benefit from ongoing in-optical goods drilling machine operator PT/OT to progress toward the following goals and safe return home. Discharge Recommendations: Based on the current findings, Anticipated Discharge Disposition (PT): inpatient rehabilitation facility, swing when medically ready for hospital discharge. (vs home 31/03, home PT,OT, recliner) Consult Recommendations: No [...] Stable/Uncomplicated Evolving/Fluctuating Symptoms Unstable/Unpredictable X 375 # ANIDA revision w/ enhance precautions, pain, decreased ROM and strength L hip and grossly formanaging enhanced precautions w/ his body habitus ?? Clinical decision making of moderate complexity based on pt's functional performance as outlinedin this evaluation. Time IN / OUT: 1055/1145 Total Minutes, Physical Therapy: 50(mod eval, home management). MARYELLEN RAHMAN, PT Pager: [phone] Physical Therapy Inpatient Rehabilitation Department * Sherman [...] ??? ASCVD (arteriosclerotic cardiovascular disease) 1993 first [place] 1992, stent to LAD in 2006 ??? [...] ERCP performed by Nick Broussard MD at [facility] ENDOSCOPY ??? PRO ERCP,DIAGNOSTIC N/A 08/30/2015 ERCP performed by Nick Broussard MD at [facility] MAIN OR ??? PRO ERCP,DIAGNOSTIC N/A 08/30/2015 ERCP performed by Nick Broussard MD at [facility] ENDOSCOPY ??? PRO LAP, CHOLECYSTECTOMY N/A 09/01/2015 LAPAROSCOPIC CHOLECYSTECTOMY performed by Esha Moon MD at [facility] MAIN OR ??? TOTAL HIP [...] of AE, increased time. assist w/ shoes, nurse wound x 2/wk for dressing changes on feet. Ptreports independence w/ grooming, toileting, and bathing. Precautions/Special Considerations: abdominal binder at all times, Provena incisional vac at continuous suction to L hip, WBAT LLE, fall, enhanced hip precautions, Subjective: I use a back network engineer administrator (stain wiper) and it takes me a while. when [...] teeth, washed face w/ set up from OVEN ROASTER. Dressing: Pt TotalA for donning of socks. Pt issued and educated on stain wiper/modified technique, will review in future sessions. Pt [...] Total Minutes, Occupational Therapy: 56(eval + sc) 2016 OT Evaluation Code Rationale: ?? Diagnosis & [...] and measurable assessment of functional outcome. Pager: [phone] Sherman Caldera OT 11/02/2020 Occupational Therapy Rehabilitation [...] Center 11/08/2020 8:30 AM Yaneth Sage RVT [facility] VAS LAB JOHNNA BROOKS 11/08/2020 9:00 AM Delroy More MD [facility] V SURG [facility] 11/16/2020 9:30 AM [facility] DX ROOM 3 MH Xray [facility] Rad 11/16/2020 10:30 AM Jeffrey Cuevas MD [facility] ORTH 3C [facility] Associated attestation - Geovani Strange MD - [...] Jaime Crouch is a 75 y.o. male Day [...] Time Provider Department Center 11/02/2020 8:45 AM [facility] DX ROOM 3 MH Xray [facility] Rad 11/02/2020 9:05 AM LAB, THREE L Lab 3L JOHNNA LANZACHCO 11/02/2020 10:00 AM Jeffrey Cuevas MD [facility] ORTH 3C [facility] 11/08/2020 8:30 AM Yaneth Sage RVT [facility] VAS LAB JOHNNA POOLCHCO 11/08/2020 9:00 AM Delroy More MD [facility] V SURG [facility] * Amanda Perez RN - 11/01/2020 7:25 [...] tingling. Patient oriented to room, and call zenaida, . RN will monitor patient. AMANDA PEREZ RN * Mitzy Atnony RN - 11/01/2020 5:05 PM EST Arrived from OR in bed. Attached to monitors and alarms set appropriately for patient. Left hip dressing with previna vac in place 1715: Hand off given to JACOB Carbajal * Jane Kern - 11/01/2020 1:51 PM EST [employer] Encounter Note Patient Name: Jaime Crouch : [id number] MR#: [id number] Admit Date: 10/31/2020 4:11 PM Hospital Day 1 day Narrative: Responded to a infection control nurse consult. Mr Crouch was awake and awaiting transport to his procedure whenI arrived. Assessment: Mr. Crouch had asked to see Fr. Ford because during a prior hospitalization they had enjoyed a conversation., When I explained Fr. Ford was away he readily engaged discussing his Restorationism misty and hisadmiration for the work of [...] up post operatively. Magui No, PT Pager #[phone] * Nick Chaves RN - 11/01/2020 10:43 AM EST Patient reports no chest pain, SOB, numbness or tingling, and no pain. Patient has an IV in left arm capped. Patient is dim on RA, HR irregular with hx of a- fib. 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, voiding in urinal and up to [...] SpO2 96 % Sherman Caldera OT Pager: [phone] * Jeffrey Cuevas MD - 11/01/2020 6:48 [...] Time Provider Department Center 11/02/2020 8:45 AM [facility] DX ROOM 3 MH Xray [facility] Rad 11/02/2020 9:05 AM LAB, [facility] L [facility] 11/02/2020 10:00 AM Jeffrey Cuevas MD [facility] ORTH 3C [facility] 11/08/2020 8:30 AM Yaneth Sage RVT [facility] VAS LAB JOHNNA ROBLEDOWY 11/08/2020 9:00 AM Delroy More MD [facility] V SURG [facility] * Slim Kaiser RCP - 10/31/2020 9:01 [...] of the femoral head. Referred down to [facility] for further treatment. Patient reports he doesn't [...] Time Provider Department Center 11/02/2020 8:45 AM [facility] DX ROOM 3 MH Xray [facility] Rad 11/02/2020 9:05 AM LAB, THREE L Lab 3L JOHNNA ROBLEDOCO 11/02/2020 10:00 AM Jeffrey Cuevas MD [facility] ORTH 3C [facility] 11/08/2020 8:30 AM Yaneth Sage RVT [facility] VAS LAB JOHNNA LANZACHCO 11/08/2020 9:00 AM Delroy More MD [facility] V SURG [facility] Associated attestation - Geovani Strange MD - [...] was actually contacted by Dr. Dominguez in [facility] via email about this patient earlier [...] was instructed to come to ED at [facility] for likely admission to ortho for repair. [...] RNA Not Detected Not Detected SARS-CoV-2 Source BATCH OR CONTINUOUS STILL OPERATOR Swab EKG 12 Lead Result Value Ref Range Ventricular rate 80 BPM Atrial Rate 80 BPM QRS Duration 114 ms Q-T Interval 394 ms QTC Calculated (Bezet) 454 ms Calculated R Huron -33 degrees Calculated T Huron 4 degrees INTERPRETATION Atrial fibrillation with premature [...] this report, please contact the number below. Electronically signed by: Seymour Galaviz MD, [facility] ([phone]), at 10/31/2020 6:56 PM XR Pelvis (Generic) Final Result 1. Bilateral total [...] this report, please contact the number below. Electronically signed by: [facility] ([phone]), at 10/31/2020 6:56 PM ASSESSMENT & PLAN MDM: Jaime Crouch is a [...] to orthopedic surgery. Amanda Hansen PA 10/31/20 [id number] * Jeanie Shannon RN - 10/31/2020 6:51 [...] [x] None Exposure [] Recent travel outside [place] [] Contact with known or suspected positive individuals [x] None PE: There were no vitals taken for this visit. Patient well-appearing, no acute distress. PLAN: Labs ordered. X-ray in chart from yesterday. Repeat examination, obtain further diagnostics as indicated, and ongoing evaluation/management per ED provider. Bucky Jj PA 10/31/20 1325 documented in this encounter Miscellaneous Notes * [...] Unna???s boot instructions Change the dressing every M/ days as follows: 1. Cleanse leg with [...] Please contact Mary Lozano RN on pager [phone] or the wound care team at [phone] or pager [phone] with skin and wound care concerns or questions. * Consult Note - Benjamín yMles III, MD - 11/03/2020 7:31 AM EST Internal Medicine Initial Consult Note Admit date: Hospital day: Service: Primary Attending Consult Attending 10/31/[address] [place] [address] Medicine MD Deana Mojica MD Reason for [...] Alert and orientated, Laboratory: CBC: Recent Labs 11/03/2031611/02/2034511/01/20 0352 WBC 11.3* 12.5* 8.1 HGB 14.7 15.0 17.5* PLATELET 225 252 251 Chemistry: Recent Labs 11/03/2031611/02/20 0346 11/01/20 0352 NA 141 141 141 K 4.5 4.4 4.0 CL 107 106 106 CO2 23 24 25 BUN 23* 24* 19 CREATININE 0.78* 0.90 0.79* GLUCOSE 147 150 140 Recent Labs 11/03/2031611/02/20 0346 11/01/20 0352 10/31/20 2252 CALCIUM 9.3 8.8 9.6 9.5 MAGNESIUM -- -- -- 0.83 PHOS -- -- -- 2.3* Coags: Recent Labs 11/03/2031611/02/20 0346 11/01/20 1129 11/01/20 0352 10/31/20 2252 [...] MD Internal Medicine, PGY3 FORTUNATO Pager # [phone] Associated attestation - Amber Castro MD - [...] history, admitting diagnosis and active problem list. INSTRUCTIONAL TECHNOLOGY TEACHER at bedside assisting with patient care. Patient reports he has wound care for BLEs at the [facility] wound care clinic which provides podiatry care and Unnas boots to LLE, medigrip to RLE; [facility] wound care officedoes not provide care to his pannus. Patient reports pannus is larger at left than right; he stateshe uses [facility] [facility] [place]. Vascular Surgeon in to see [...] and intact from knee down. LLE is cuojptb-mgvyhp-heyou, mepilex border dressing at lateral lower leg [...] HOB higher than 30 degrees) Use a [email or web address] chair cushion beneath patient at all times [...] Please contact Sara Montoya RN on pager [phone] or the wound care team at [phone] or pager [phone] skin and wound care concerns or questions. * Consult Note - Elvira Daigle MD - 11/02/2020 10:19 AM EST Patient Name: Jaime Crouch Patient Age: 75 y.o. Birthdate: 1945 [...] procedure. He sees wound care regularly at [facility]. The patient had ABIs performed at [facility] in 2016 which were normal with triphasic waveforms bilaterally. The patient was referred to see vascular surgery as an outpatient for these non healing wounds and has an appointment scheduled with Dr. More 11/08 with repeat ABIs. Vascular surgery was asked to see the patient while he is inpatient as it is difficult for him to get to [facility] given his limited mobility postoperatively and struggles with incontinence. Review of Systems: A 10 point review of systems was conducted and is negative except as above Past Medical History: Past Medical History: Diagnosis Date ??? ASCVD (arteriosclerotic cardiovascular disease) 1993 first [place] 1992, stent to LAD in 2006 ??? [...] ERCP performed by Nick Broussard MD at [facility] ENDOSCOPY ??? PRO ERCP,DIAGNOSTIC N/A 08/30/2015 ERCP performed by Nick Broussard MD at [facility] MAIN OR ??? PRO ERCP,DIAGNOSTIC N/A 08/30/2015 ERCP performed by Nick Broussard MD at [facility] ENDOSCOPY ??? PRO LAP, CHOLECYSTECTOMY N/A 09/01/2015 LAPAROSCOPIC CHOLECYSTECTOMY performed by Esha Moon MD at [facility] MAIN OR ??? TOTAL HIP [...] wbc, hgb, hct plt Recent Labs 11/02/20 034 WBC 12.5* HGB 15.0 HCT 49.1* Last [...] primarily been managed by wound care at [facility]. The patient has never seen a [...] patient should continue seeing wound care at [facility] once discharged, as he is. Elvira Daigle MD Vascular Surgery Consult service will continue to follow patient. Please page [phone] (day) or [phone] (night) with questions/concerns x Recommendations are above, [...] ADLs]: Hands on Surveillance [continuous indirect monitoring]: Sandroo, ROGELIO, hourly rounding, bed alarm, call estevez within reach Patient-specific fall prevention interventions for sensory deficits provided, if applicable: [X] N/A * Op Note - Geovani Strange MD - 11/01/2020 2:22 PM EST Images from the original note were not included. [facility] Operative Note Patient Name: Jaime Crouch : [id number] MR#: [id number] Case Date: 11/01/2020 Surgeon: Surgeon(s) and Role: * Geovani Strange MD - Primary * Jeffrey Cuevas MD - Fellow * Delroy Brooks PA - Physician Service Administrator Preoperative diagnosis: Left Femoral Head component fracture [...] and synovium rule out infection OR 12 [id number] Left Femoral Head component fracture scar and [...] was contacted initially by Scott Dominguez in [facility] who assumed care of this patient [...] Femoral Stem: Retained Optifix Liner: Depuy Size [id number] Femoral Head: 36mm +4 Oxinium Intraoperative [...] This case was performed with a Physician Service Administrator who was critical for patient positioning and [...] Implant Name Type Inv. Item Serial No. Skatesman Lot No. LRB No. Used Action GRAFT BONE FILLER 10ML CALCIUM SULFATE POWDER INJECTABLE ([id number]) - [id number] IMPLANTS GRAFT BONEFILLER 10ML CALCIUM SULFATE POWDER INJECTABLE ([id number]) [employer] - BIOCOMPOSI [id number] 1 Implanted SHELL ACET HIP 62MM POR CTD MULTI HOLE TI PINNACLE GRIPTION ([id number]) (AUTOREQ) - [id number] IMPLANTS SHELL ACET HIP 62MM POR CTD MULTI HOLE TI PINNACLE GRIPTION ([id number]) (AutoReq) [employer] RAYSA BHARAT [id number] Left 1 Implanted SCREW HIP ACET 6.5X20MM FT CANC HEX DRV TI PINNACLE ([id number]) (AutoReq) - [id number] IMPLANTS SCREWHIP ACET 6.5X20MM FT CANC HEX DRV TI PINNACLE ([id number]) (AutoReq) [employer] BHARAT [id number] Left 1 Implanted LINER ACET HIP [id number] 0D STND CERAMIC CERAMAX ([id number]) (AUTOREQ) - [id number] IMPLANTS LINER ACETHIP [id number] 0D STND CERAMIC CERAMAX ([id number]) (AutoReq) [employer] RAYSA BHARAT [id number] Left 1 Implanted SCREW HIP ACET 6.5X25MM FT CANC HEX DRV TI PINNACLE ([id number]) (AUTOREQ) - [id number] IMPLANTS SCREWHIP ACET 6.5X25MM FT CANC HEX DRV TI PINNACLE ([id number]) (AutoReq) RAYSA Sentrig[employer] [facility] - RAYSA BHARAT [id number] Left 1 Implanted DEPUY, PINNACLE, CANCELLOUS BONE SCREW, [id number] Left 1 Implanted CAUSEY & NEPHEW, OXINIUM, 36MM O.D., +4, 14/16 TAPER FEMORAL HEAD [id number] Left 1 Implanted * Plan of Care [...] Service: Primary Attending Consult Attending 10/31/2020 0 Hospital Medicine MD Deana Mojica MD Reason for [...] 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 He denies cough, hemoptysis, or productive sputum. [...] ago. His PCP is Delroy Nettles, in [place], [place]. Past Medical History/Problem List Patient Active [...] ??? ASCVD (arteriosclerotic cardiovascular disease) 1993 [place] 1992, stent to LAD in 2006 ??? [...] Chest pain. Reported on 02/17/2017 Warfarin - [id number]-Xww-[id number]-Friday - 4mg; 5mg Furosemide 40mg b.i.d - does not [...] ERCP performed by Nick Broussard MD at [facility] ENDOSCOPY ??? PRO ERCP,DIAGNOSTIC N/A 08/30/2015 ERCP performed by Nick Broussard MD at [facility] MAIN OR ??? PRO ERCP,DIAGNOSTIC N/A 08/30/2015 ERCP performed by Nick Broussard MD at [facility] ENDOSCOPY ??? PRO LAP, CHOLECYSTECTOMY N/A 09/01/2015 LAPAROSCOPIC CHOLECYSTECTOMY performed by Esha Moon MD at [facility] MAIN OR ??? TOTAL HIP ARTHROPLASTY Bilateral Social History: Tobacco: Quit smoking 50 years ago, was a 1 pack per day smoker. Etoh: 1 drink every 2 weeks. Illicits: No illicit drug use. Living Situation: Lives at home with his , Leah of 38 years. 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 Vitals: Last value Range last 24 hrs [...] MD Internal Medicine, PGY3 FORTUNATO Pager # [phone] Associated attestation - Deana Dove MD - [...] care. Plan as below. Deana Dove MD [facility] Medicine 11/01/2020 * Initial Assessments - Dorothea [...] Diagnosis Date ??? ASCVD (arteriosclerotic cardiovascular disease) 1992 first [place] 1992, stent to LAD in 2006 ??? [...] bilateral lower extremity. Left worse than right. [place] wound clinic: 3x/week. Was the size of a 45 record, to quarter. Health/Prescription Coverage: Primary Insurance: MEDICARE Secondary Insurance: [employer] [facility] [place] Prescription Coverage: Yes Preferred Pharmacy: [facility] Other: Community [facility]: Cheaper for most medications. Primary Care Provider: Nick Nettles MD [phone] Patient/Caregiver Goals of Treatment: Home Potential Needs for Transition of Care: Rehab/SNF: mentioned [facility] Levels of rehab reviewed. Acute/SNF Home Health: [facility] current DME: MINDY boot, cane, FWW borrowed. Dialysis: NA Community Resources: [facility] Transportation: , Leah Other: Pt has comoputere Anticipated Barriers to Discharge/Special Considerations:NONE Assessment: Pt requires acute level of care for management of Left Hip Rx. Plan: Admit to Ortho OR 2/4 Home with VN PT OT ROLL WRAPPER, is preference. A member of the Care Management team will continue to monitor progress, follow for continuity of care and assist with transition of care planning. DOROTHEA WALKER RN Pager: # [phone] documented in this encounter Plan of Treatment [...] Head component fracture Revise Total Hip Replacement (56204) 11/01/2020 1:29 PM EST Left Femoral Head [...] 6:5 8 PM EST RAPID COVID-19 PCR ([facility]/APD/[facility]) STAT 10/31/2020 6:52 PM EST HC [...] Glucose, POC 163 65 - 199 mg/dL [facility] Comment: Supplemental ranges: <140 mg/dL before meals <180 mg/dL all other times of the day Blood specimen (specimen) 11/03/2020 11:26 AM EST 11/03/2020 11:26 AM EST Geovani Strange MD POINT OF CARE TEST ORDERABLES Performing Organization Address City/[facility]/ZIP Co de Phone Number [facility] [place] [address] * POCT Glucose (11/03/2020 7:35 AM EST) Glucose, POC 142 65 - 199 mg/dL [facility] Comment: Supplemental ranges: <140 mg/dL before meals <180 mg/dL all other times of the day Blood specimen (specimen) 11/03/2020 7:35 AM EST 11/03/2020 7:35 AM EST Geovani Strange MD POINT OF CARE TEST ORDERABLES Performing Organization Address [facility] Co de Phone Number [facility] [place] [address] * POCT Glucose (11/03/2020 3:39 AM EST) Glucose, POC 170 65 - 199 mg/dL [facility] Comment: Supplemental ranges: <140 mg/dL before meals <180 mg/dL all other times of the day Blood specimen (specimen) 11/03/2020 3:39 AM EST 11/03/2020 3:39 AM EST Geovani Strange MD POINT OF CARE TEST ORDERABLES Performing Organization Address City/[facility] Co de Phone Number [facility] [place] [address] * (ABNORMAL) Differential, Automated (11/03/2020 3:17 AM EST) Neutrophil % 74.6 % [facility] Neutrophil Absolute 8.42(H) 1.70 - 6.10 x10(3)/[facility] Lymph % 10.7 % [facility] Lymphocytes Abs 1.2 0.9 - 3.2 x10(3)/[facility] Monocyte % 12.5 % [facility] Monocyte Abs 1.4(H) 0.3 - 0.9 x10(3)/[facility] Eos % 1.2 % [facility] Eosinophils Abs 0.1 0.0 - 0.4 x10(3)/[facility] Basophil % 0.4 % [facility] Baso Absolute 0.0 0.0 - 0.1 x10(3)/[facility] Immature Gran % 0.60 % [facility] Comment: Immature granulocytes(IG's)percentage and absolute count will include metamyelocytes, myelocytes, and promyelocytes. Blood smears from CBCs yielding IG's will be scanned manually for concordance. If this scan disagrees with the automated IG or if promyelocytes are noted, a manual differential will be performed. Immature Gran Absolute 0.07(H) 0.00 - 0.04 x10(3)/[facility] Blood specimen (specimen) 11/03/2020 3:17 AM EST 11/03/2020 3:50 AM EST Narrative Resulting Agency Comment Spec In Lab Jeffrey Cuevas MD HEMATOLOGY ORDERABLE S [facility] [place] [address] * (ABNORMAL) Hemogram (11/03/2020 3:17 AM EST) White Blood Cell 11.3(H) 4.0 - 9.5 x10(3)/[facility] Red Blood Cell 4.89 4.58 - 5.54 x10(6)/ L [facility] Hemoglobin 14.7 13.7 - 16.5 gm/dL [facility] Hematocrit 47.1 40.5 - 48.5 % [facility] Mean Cell Volume 96.3(H) 82.9 - 93.1 fL [facility] Mean Cell Hemoglobin 30.1 27.5 - 32.1 pg [facility] Mean Cell Hemoglobin Concentration 31.2(L) 32.0 - 35.7 gm/dL [facility] Platelet 225 145 - 357 x10(3)/mc L [facility] RDW Standard Deviation 57.3(H) 36.0 - 45.0 fL [facility] RDW coefficient of variation 16.1(H) 11.4 - 13.8 % [facility] Mean Platelet Volume 9.3 7.6 - 12.9 fL [facility] NRBC% auto 0.0 % [facility] NRBC Absolute 0.000 0.000 - 0.000 x10(3)/mc L [facility] Blood specimen (specimen) 11/03/2020 3:17 AM EST 11/03/2020 3:50 AM EST Narrative Resulting Agency Comment Spec In Lab Jeffrey Cuevas MD HEMATOLOGY ORDERABLE S [facility] [place] [address] * (ABNORMAL) Prothrombin Time (11/03/2020 3:17 AM EST) Prothrombin Time 21.9(H) 9.4 - 12.5 sec [facility] International Normalization Ratio 1.9 [facility] Comment: An INR <2.0 indicates adequate [...] Lab Jeffrey Cuevas MD HEMATOLOGY ORDERABLE S [facility] [place] [address] * (ABNORMAL) Basic Metabolic Panel (non-fasting) (11/03/2020 3:17 AM EST) Glucose 147 65 - 199 mg/dL [facility] Comment:Diabetes: >=200 mg/d L plus symptoms Blood Urea Nitrogen 23(H) 10 - 20 mg/dL [facility] Creatinine 0.78(L) 0.80 - 1.50 mg/dL [facility] Sodium 141 135 - 145 mmol/L [facility] Potassium 4.5 3.5 - 5.0 mmol/L [facility] Comment: Please note: ??Patients with WBC >100,000 may have falsely elevated Potassium levels. ??For accurate Potassium quantification in these patients send serum separator tube (gold top) for subsequent determinations. ??Contact the Clinical Chemistry Laboratory if there are any questions. Chloride 107 98 - 107 mmol/L [facility] Carbon Dioxide 23 22 - 31 mmol/L [facility] Anion Gap 11 5 - 15 mmol/L [facility] Calcium 9.3 8.5 - 10.5 mg/dL [facility] Est Glomerular Filtration Rate 90 >=60 mL/min/1. 73 m?? [facility] Comment: This patient? s estimated glomerular [...] Cuevas MD CHEMISTRY ORDERABLES Performing Organization Address City/[facility]/ZIP Co de Phone Number [facility] [place] [address] * POCT Glucose (11/03/2020 12:06 AM EST) Glucose, POC 173 65 - 199 mg/dL [facility] Comment: Supplemental ranges: <140 mg/dL before meals <180 mg/dL all other times of the day Blood specimen (specimen) 11/03/2020 12:06 AM EST 11/03/2020 12:06 AM EST Geovani Strange MD POINT OF CARE TEST ORDERABLES Performing Organization Address [facility] Co de Phone Number [facility] [place] [address] * (ABNORMAL) POCT Glucose (11/02/2020 7:26 PM EST) Glucose, POC 204(H) 65 - 199 mg/dL [facility] Comment: Supplemental ranges: <140 mg/dL before meals <180 mg/dL all other times of the day Blood specimen (specimen) 11/02/2020 7:26 PM EST 11/02/2020 7:26 PM EST Geovani Strange MD POINT OF CARE TEST ORDERABLES Performing Organization Address City/[facility] Co de Phone Number [facility] [place] [address] * POCT Glucose (11/02/2020 4:31 PM EST) Glucose, POC 190 65 - 199 mg/dL [facility] Comment: Supplemental ranges: <140 mg/dL before meals <180 mg/dL all other times of the day Blood specimen (specimen) 11/02/2020 4:31 PM EST 11/02/2020 4:31 PM EST Geovani Strange MD POINT OF CARE TEST ORDERABLES Performing Organization Address City/[facility]/ZIP Co de Phone Number [facility] [place] [address] * POCT Glucose (11/02/2020 12:21 PM EST) [facility] Signature Glucose, POC 186 65 - 199 mg/dL [facility] Comment: Supplemental ranges: <140 mg/dL before meals <180 mg/dL all other times of the day Blood specimen (specimen) 11/02/2020 12:21 PM EST 11/02/2020 12:21 PM EST Geovani Strange MD POINT OF CARE TEST ORDERABLES Performing Organization Address [facility] Co de Phone Number [facility] [place] [address] * POCT Glucose (11/02/2020 8:04 AM EST) [facility] Signature Glucose, POC 125 65 - 199 mg/dL [facility] Comment: Supplemental ranges: <140 mg/dL before meals <180 mg/dL all other times of the day Blood specimen (specimen) 11/02/2020 8:04 AM EST 11/02/2020 8:04 AM EST Geovani Strange MD POINT OF CARE TEST ORDERABLES Performing Organization Address City/[facility] Co de Phone Number [facility] [place] [address] * (ABNORMAL) Differential, Automated (11/02/2020 3:46 AM EST) Neutrophil % 81.0 % [facility] Neutrophil Absolute 10.16(H) 1.70 - 6.10 x10(3)/[facility] Lymph % 9.6 % [facility] Lymphocytes Abs 1.2 0.9 - 3.2 x10(3)/[facility] Monocyte % 8.6 % [facility] Monocyte Abs 1.1(H) 0.3 - 0.9 x10(3)/[facility] Eos % 0.1 % [facility] Eosinophils Abs 0.0 0.0 - 0.4 x10(3)/[facility] Basophil % 0.3 % [facility] Baso Absolute 0.0 0.0 - 0.1 x10(3)/[facility] Immature Gran % 0.40 % [facility] Comment: Immature granulocytes(IG's)percentage and absolute count will include metamyelocytes, myelocytes, and promyelocytes. Blood smears from CBCs yielding IG's will be scanned manually for concordance. If this scan disagrees with the automated IG or if promyelocytes are noted, a manual differential will be performed. Immature Gran Absolute 0.05(H) 0.00 - 0.04 x10(3)/[facility] Blood specimen (specimen) 11/02/2020 3:46 AM EST 11/02/2020 4:26 AM EST Narrative Resulting Agency Comment Spec In Lab Jeffrey Cuevas MD HEMATOLOGY ORDERABLE S [facility] [place] [address] * (ABNORMAL) Hemogram (11/02/2020 3:46 AM EST) Pathologist [facility] White Blood Cell 12.5(H) 4.0 - 9.5 x10(3)/[facility] Red Blood Cell 5.04 4.58 - 5.54 x10(6)/mc L [facility] Hemoglobin 15.0 13.7 - 16.5 gm/dL [facility] Hematocrit 49.1(H) 40.5 - 48.5 % [facility] Mean Cell Volume 97.4(H) 82.9 - 93.1 fL [facility] Mean Cell Hemoglobin 29.8 27.5 - 32.1 pg [facility] Mean Cell Hemoglobin Concentration 30.5(L) 32.0 - 35.7 gm/dL [facility] Platelet 252 145 - 357 x10(3)/mc L [facility] RDW Standard Deviation 58.0(H) 36.0 - 45.0 fL [facility] RDW coefficient of variation 16.3(H) 11.4 - 13.8 % [facility] Mean Platelet Volume 9.1 7.6 - 12.9 fL [facility] NRBC% auto 0.0 % [facility] NRBC Absolute 0.000 0.000 - 0.000 x10(3)/mc L [facility] Blood specimen (specimen) 11/02/2020 3:46 AM EST 11/02/2020 4:26 AM EST Narrative Resulting Agency Comment Spec In Lab Jeffrey Cuevas MD HEMATOLOGY ORDERABLE S Performing Organization Address City/State/[facility] Co de Phone Number [facility] [place] [address] * (ABNORMAL) Prothrombin Time (11/02/2020 3:46 AM EST) Prothrombin Time 20.5(H) 9.4 - 12.5 sec [facility] International Normalization Ratio 1.8 [facility] Comment: An INR <2.0 indicates adequate [...] Lab Jeffrey Cuevas MD HEMATOLOGY ORDERABLE S [facility] [place] [address] * (ABNORMAL) Basic Metabolic Panel (non-fasting) (11/02/2020 3:46 AM EST) Glucose 150 65 - 199 mg/dL [facility] Comment:Diabetes: >=200 mg/d L plus symptoms Blood Urea Nitrogen 24(H) 10 - 20 mg/dL [facility] Creatinine 0.90 0.80 - 1.50 mg/dL [facility] Sodium 141 135 - 145 mmol/L [facility] Potassium 4.4 3.5 - 5.0 mmol/L [facility] Comment: Please note: ??Patients with WBC >100,000 may have falsely elevated Potassium levels. ??For accurate Potassium quantification in these patients send serum separator tube (gold top) for subsequent determinations. ??Contact the Clinical Chemistry Laboratory if there are any questions. Chloride 106 98 - 107 mmol/L [facility] Carbon Dioxide 24 22 - 31 mmol/L [facility] Anion Gap 11 5 - 15 mmol/L [facility] Calcium 8.8 8.5 - 10.5 mg/dL [facility] Est Glomerular Filtration Rate 84 >=60 mL/min/1. 73 m?? [facility] Comment: This patient? s estimated glomerular [...] Cuevas MD CHEMISTRY ORDERABLES Performing Organization Address City/[facility] Co de Phone Number [facility] [place] [address] * POCT Glucose (11/01/2020 11:34 PM EST) Glucose, POC 136 65 - 199 mg/dL [facility] Comment: Supplemental ranges: <140 mg/dL before meals <180 mg/dL all other times of the day Blood specimen (specimen) 11/01/2020 11:34 PM EST 11/01/2020 11:34 PM EST Geovani Strange MD POINT OF CARE TEST ORDERABLES Performing Organization Address [facility] Co de Phone Number [facility] [place] [address] * POCT Glucose (11/01/2020 7:04 PM EST) Glucose, POC 121 65 - 199 mg/dL [facility] Comment: Supplemental ranges: <140 mg/dL before meals <180 mg/dL all other times of the day Blood specimen (specimen) 11/01/2020 7:04 PM EST 11/01/2020 7:04 PM EST Geovani Strange MD POINT OF CARE TEST ORDERABLES Performing Organization Address [facility] Co de Phone Number [facility] [place] [address] * XR Pelvis (Generic) (11/01/2020 6:19 PM [...] the number below. ? Electronically signed by: Slim Wright MD[facility] ([phone]), at 11/01/2020 6:49 PM Narrative 11/01/2020 6:49 PM EST EXAMINATION: XR [...] this report, please contact the number below. Electronically signed by: Slim Wright MDG[facility]([phone]), at 11/01/2020 6:49 PM Jeffrey Cuevas MD IMG DX ORDERABLES * POCT Glucose (11/01/2020 5:25 PM EST) Pathologist [facility] Glucose, POC 106 65 - 199 mg/dL [facility] Comment: Supplemental ranges: <140 mg/dL before meals <180 mg/dL all other times of the day Blood specimen (specimen) 11/01/2020 5:25 PM EST 11/01/2020 5:25 PM EST Geovani Strange MD POINT OF CARE TEST ORDERABLES Performing Organization Address City/State/[facility] Co de Phone Number [facility] [place] [address] * (ABNORMAL) BLOOD GAS 2 ARTERIAL (11/01/2020 2:49 PM EST) [facility] pH, Arterial 7.34(L) 7.35 - 7.45 [facility] PCO2, Arterial 47(H) 35 - 45 mmHg [facility] PO2, Arterial 110(H) 85 - 104 mmHg [facility] Bicarbonate, Arterial 24.7 20.0 - 26.0 mmol/L [facility] Base Excess, Arterial -1.4 -3.0 - 3.0 mmol/L [facility] Hgb Blood Gas 17.7(H) 13.7 - 16.5 gm/dL [facility] Oxyhemoglobin, Arterial 95.9 94.0 - 97.0 % [facility] Carboxyhemoglob in, Arterial 1.8 % [facility] Comment: Nonsmokers: 0.5-1.5% COHB Smokers: Variable, but usually less than 10% Toxic: 20-30% COHB Lethal: Greater than 60% COHB Methemoglobin, Arterial 0.3 <=1.5 % [facility] Na Whole Blood 141 135 - 145 mmol/L [facility] K Whole Blood 4.0 3.5 - 5.0 mmol/L [facility] Comment: Please note: Patients with WBC >100,000 may have falsely elevated Potassium levels. Contact the Clinical Chemistry Laboratory if there are any questions. ICa Whole Blood 1.19 1.15 - 1.33 mmol/L [facility] Comment: Note: ??Total bilirubin higher than 20 mg/dL may lead to falsely low ionized calcium. CL Whole Blood 106 98 - 107 mmol/L [facility] Gluc Whole Bld 117 65 - 199 mg/dL [facility] Comment:Diabetes: >=200 mg/d L plus symptoms. Lactate WB 1.5 0.5 - 2.2 mmol/L [facility] FIO2 Art 52 % [facility] Flow Art 0.6 LPM [facility] PF Ratio Art 212 [facility] Temp Art 36.0 Celsius [facility] Blood specimen (specimen) 11/01/2020 2:49 PM EST 11/01/2020 2:49 PM EST Geovani Strange MD POINT OF CARE TEST ORDERABLES Performing Organization Address City/[facility]/ZIP Co de Phone Number [facility] [place] [address] * Anaerobic Culture (11/01/2020 2:46 PM EST) Anaerobic Culture No anaerobic organisms isolated [facility] Joint specimen (specimen) LEFT HIP REGION STRUCTURE / Unknown 11/01/2020 2:46 PM EST 11/01/2020 4:20 PM EST Comment:METALOSIS Narrative Resulting Agency Comment Spec In Lab Geovani Strange MD MICROBIOLOGY - GENE RAL ORDERABLES Performing Organization Address [facility]/ZIP Co de Phone Number [facility] [place] [address] * Joint Culture (11/01/2020 2:46 PM EST) Joint Culture No growth at 14 days. [facility] Gram Stain Moderate Neutrophils seen No microorganisms seen. [facility] Joint specimen (specimen) LEFT HIP REGION STRUCTURE / Unknown 11/01/2020 2:46 PM EST 11/01/2020 4:20 PM EST Comment:METALOSIS Narrative Resulting Agency Comment Spec In Lab Geovani Strange MD MICROBIOLOGY - GENE RAL ORDERABLES Performing Organization Address [facility] de Phone Number [facility] [place] [address] * Specimen to Pathology (11/01/2020 2:35 PM EST) AP Specimen 11/01/2020 2:35 PM EST 11/01/2020 2:35 PM EST Narrative [facility] - 11/01/2020 2:35 PM EST Specimen requisition ordered. ??Separate Pathology report to follow Geovani Strange MD PATHOLOGY/CYTOLOGY ORDERABLES Performing Organization Address [facility] de Phone Number [facility] [place] [address] * Surgical Pathology Report (11/01/2020 2:34 PM EST) Final Diagnosis [id number] ? Location: [facility]; [facility]; A The signing pathologist has (i) [...] Slim Godoy Verified: ??11/06/2020 ?Pathologist Performed at: ??-[facility] Dept. of Pathology, [place], [place] SPECIMEN(S) SUBMITTED A - Scar and synovium CLINICAL INFORMATION Left femoral head component fracture. SPECIMEN PROCESSING A - Labeled/Fixative : Scar and synovium, rule out infection, fresh. Quantity/Size: Fragments, 7 x 5 x 1.5 cm. Tissue Description: Red and black soft tissue with minimal amount of roman bone tissue. Sections/Process ing: Blocks submitted for decalcification: A1-A2. Manager [employer] sections in 4 cassettes labeled A1-A4. ??MV 11/06/2020 8:44 AM EST [facility] SYNOVIUM BIOPSY SPECIMEN / Unknown 11/01/2020 2:34 PM EST 11/01/2020 2:34 PM EST Geovani Strange MD PATHOLOGY/CYTOLOGY ORDERABLES Performing Organization Address City/[facility]/ZIP Co de Phone Number [facility] [place] [address] * Anaerobic Culture (11/01/2020 2:32 PM EST) Anaerobic Culture No anaerobic organisms isolated [facility] Joint specimen (specimen) LEFT HIP REGION STRUCTURE / Unknown 11/01/2020 2:32 PM EST 11/01/2020 4:21 PM EST Comment:OR 12 Narrative Resulting Agency Comment Spec In Lab Geovani Strange MD MICROBIOLOGY - GENE RAL ORDERABLES Performing Organization Address City/[facility]/ZIP Co de Phone Number [facility] [place] [address] * Joint Culture (11/01/2020 2:32 PM EST) Joint Culture No growth at 14 days. [facility] Gram Stain Few Neutrophils seen No microorganisms seen. [facility] Joint specimen (specimen) LEFT HIP REGION STRUCTURE / Unknown 11/01/2020 2:32 PM EST 11/01/2020 4:21 PM EST Comment:OR 12 Narrative Resulting Agency Comment Spec In Lab Geovani Strange MD MICROBIOLOGY - GENE RAL ORDERABLES Performing Organization Address [facility] Co de Phone Number [facility] [place] [address] * (ABNORMAL) APTT (11/01/2020 11:29 AM EST) Partial Thromboplastin Time 42(H) 25 - 37 sec [facility] Comment: The PTT is NOT appropriate for heparin monitoring. Use the Anti-Xa level for heparin monitoring (HEP UFH) or LMWH monitoring (HEP LMW). A PTT less than 37 seconds generally indicates adequate hemostasis. Blood specimen (specimen) 11/01/2020 11:29 AM EST 11/01/2020 11:44 AM EST Narrative Resulting Agency Comment Spec In Lab Jeffrey Cuevas MD HEMATOLOGY ORDERABLE S Performing Organization Address [facility] de Phone Number [facility] [place] [address] * (ABNORMAL) Prothrombin Time (11/01/2020 11:29 AM EST) Prothrombin Time 20.8(H) 9.4 - 12.5 sec [facility] International Normalization Ratio 1.8 [facility] Comment: An INR <2.0 indicates adequate [...] MD HEMATOLOGY ORDERABLE S Performing Organization Address City/[facility]/ZIP Co de Phone Number [facility] [place] [address] * POCT Glucose (11/01/2020 11:21 AM EST) Glucose, POC 149 65 - 199 mg/dL [facility] Comment: Supplemental ranges: <140 mg/dL before meals <180 mg/dL all other times of the day Blood specimen (specimen) 11/01/2020 11:21 AM EST 11/01/2020 11:21 AM EST Geovani Strange MD POINT OF CARE TEST ORDERABLES Performing Organization Address [facility] Co de Phone Number [facility] [place] [address] * POCT Glucose (11/01/2020 7:29 AM EST) Glucose, POC 150 65 - 199 mg/dL [facility] Comment: Supplemental ranges: <140 mg/dL before meals <180 mg/dL all other times of the day Blood specimen (specimen) 11/01/2020 7:29 AM EST 11/01/2020 7:29 AM EST Geovani Strange MD POINT OF CARE TEST ORDERABLES Performing Organization Address City/[facility] Co de Phone Number [facility] [place] [address] * Differential, Automated (11/01/2020 3:52 AM EST) Neutrophil % 67.1 % [facility] Neutrophil Absolute 5.44 1.70 - 6.10 x10(3)/[facility] Lymph % 19.7 % [facility] Lymphocytes Abs 1.6 0.9 - 3.2 x10(3)/[facility] Monocyte % 9.9 % [facility] Monocyte Abs 0.8 0.3 - 0.9 x10(3)/[facility] Eos % 2.2 % [facility] Eosinophils Abs 0.2 0.0 - 0.4 x10(3)/[facility] Basophil % 0.7 % [facility] Baso Absolute 0.1 0.0 - 0.1 x10(3)/[facility] Immature Gran % 0.40 % [facility] Comment: Immature granulocytes(IG's)percentage and absolute count will include metamyelocytes, myelocytes, and promyelocytes. Blood smears from CBCs yielding IG's will be scanned manually for concordance. If this scan disagrees with the automated IG or if promyelocytes are noted, a manual differential will be performed. Immature Gran Absolute 0.03 0.00 - 0.04 x10(3)/[facility] Blood specimen (specimen) 11/01/2020 3:52 AM EST 11/01/2020 4:13 AM EST Narrative Resulting Agency Comment Spec In Lab Laurent Painting MD HEMATOLOGY ORDERABLE S Performing Organization Address City/State/[facility] Co de Phone Number [facility] [place] [address] * (ABNORMAL) Hemogram (11/01/2020 3:52 AM EST) White Blood Cell 8.1 4.0 - 9.5 x10(3)/ L [facility] Red Blood Cell 5.80(H) 4.58 - 5.54 x10(6)/mc L [facility] Hemoglobin 17.5(H) 13.7 - 16.5 gm/dL [facility] Hematocrit 54.1(H) 40.5 - 48.5 % [facility] Mean Cell Volume 93.3(H) 82.9 - 93.1 fL [facility] Mean Cell Hemoglobin 30.2 27.5 - 32.1 pg [facility] Mean Cell Hemoglobin Concentration 32.3 32.0 - 35.7 gm/dL [facility] Platelet 251 145 - 357 x10(3)/mc L [facility] RDW Standard Deviation 54.0(H) 36.0 - 45.0 fL [facility] RDW coefficient of variation 16.1(H) 11.4 - 13.8 % [facility] Mean Platelet Volume 9.2 7.6 - 12.9 fL [facility] NRBC% auto 0.0 % [facility] NRBC Absolute 0.000 0.000 - 0.000 x10(3)/mc L [facility] Blood specimen (specimen) 11/01/2020 3:52 AM EST 11/01/2020 4:13 AM EST Narrative Resulting Agency Comment Spec In Lab Laurent Painting MD HEMATOLOGY ORDERABLE S [facility] [place] [address] * (ABNORMAL) Basic Metabolic Panel (non-fasting) (11/01/2020 3:52 AM EST) Glucose 140 65 - 199 mg/dL [facility] Comment:Diabetes: >=200 mg/d L plus symptoms Blood Urea Nitrogen 19 10 - 20 mg/dL [facility] Creatinine 0.79(L) 0.80 - 1.50 mg/dL [facility] Sodium 141 135 - 145 mmol/L [facility] Potassium 4.0 3.5 - 5.0 mmol/L [facility] Comment: Please note: ??Patients with WBC >100,000 may have falsely elevated Potassium levels. ??For accurate Potassium quantification in these patients send serum separator tube (gold top) for subsequent determinations. ??Contact the Clinical Chemistry Laboratory if there are any questions. Chloride 106 98 - 107 mmol/L [facility] Carbon Dioxide 25 22 - 31 mmol/L [facility] Anion Gap 10 5 - 15 mmol/L [facility] Calcium 9.6 8.5 - 10.5 mg/dL [facility] Est Glomerular Filtration Rate 89 >=60 mL/min/1. 73 m?? [facility] Comment: This patient? s estimated glomerular [...] Cuevas MD CHEMISTRY ORDERABLES Performing Organization Address [facility] de Phone Number [facility] [place] [address] * (ABNORMAL) Prothrombin Time (11/01/2020 3:52 AM EST) Prothrombin Time 23.1(H) 9.4 - 12.5 sec [facility] International Normalization Ratio 2.0 [facility] Comment: An INR <2.0 indicates adequate [...] MD HEMATOLOGY ORDERABL ES Performing Organization Address [facility] Co de Phone Number [facility] [place] [address] * (ABNORMAL) Hemoglobin A1c (11/01/2020 3:52 AM EST) Hemoglobin A1c 7.6(H) 4.3 - 5.6 % [facility] Comment: Reference Range: 4.3 - 5.6% [...] Mellitus, Diabetes Care 2013; 36: Suppl. 1, S87-49 Estimated Average Glucose See note mg/dL [facility] Comment: Estimated Average Glucose not appropriate [...] into estimated average glucose values. ??Diabetes Care 2008:31(8):0651-7499. Blood specimen (specimen) 11/01/2020 3:52 AM EST 11/01/2020 4:13 AM EST Narrative Resulting Agency Comment Spec In Lab Geovani Strange MD CHEMISTRY ORDERABLE S [facility] [place] [address] * (ABNORMAL) Differential, Automated (10/31/2020 10:52 PM EST) Neutrophil % 70.5 % [facility] Neutrophil Absolute 7.16(H) 1.70 - 6.10 x10(3)/mc L [facility] Lymph % 18.9 % [facility] Lymphocytes Abs 1.9 0.9 - 3.2 x10(3)/ L [facility] Monocyte % 8.2 % [facility] Monocyte Abs 0.8 0.3 - 0.9 x10(3)/ L [facility] Eos % 1.5 % [facility] Eosinophils Abs 0.2 0.0 - 0.4 x10(3)/[facility] Basophil % 0.7 % [facility] Baso Absolute 0.1 0.0 - 0.1 x10(3)/mc L [facility] Immature Gran % 0.20 % [facility] Comment: Immature granulocytes(IG's)percentage and absolute count will include metamyelocytes, myelocytes, and promyelocytes. Blood smears from CBCs yielding IG's will be scanned manually for concordance. If this scan disagrees with the automated IG or if promyelocytes are noted, a manual differential will be performed. Immature Gran Absolute 0.02 0.00 - 0.04 x10(3)/mc L [facility] Blood specimen (specimen) 10/31/2020 10:52 PM EST 10/31/2020 10:58 PM EST Narrative Resulting Agency Comment Spec In Lab Laurent Painting MD HEMATOLOGY ORDERABLE S Performing Organization Address City/[facility]/ZIP Co de Phone Number [facility] [place] [address] * (ABNORMAL) Hemogram (10/31/2020 10:52 PM EST) White Blood Cell 10.2(H) 4.0 - 9.5 x10(3)/mc L [facility] Red Blood Cell 5.92(H) 4.58 - 5.54 x10(6)/mc L [facility] Hemoglobin 17.9(H) 13.7 - 16.5 gm/dL [facility] Hematocrit 54.2(H) 40.5 - 48.5 % [facility] Mean Cell Volume 91.6 82.9 - 93.1 fL [facility] Mean Cell Hemoglobin 30.2 27.5 - 32.1 pg [facility] Mean Cell Hemoglobin Concentration 33.0 32.0 - 35.7 gm/dL [facility] Platelet 262 145 - 357 x10(3)/mc L [facility] RDW Standard Deviation 53.5(H) 36.0 - 45.0 fL [facility] RDW coefficient of variation 16.1(H) 11.4 - 13.8 % [facility] Mean Platelet Volume 9.0 7.6 - 12.9 fL [facility] NRBC% auto 0.0 % [facility] NRBC Absolute 0.000 0.000 - 0.000 x10(3)/mc L [facility] Blood specimen (specimen) 10/31/2020 10:52 PM EST 10/31/2020 10:58 PM EST Narrative Resulting Agency Comment Spec In Lab Laurent Painting MD HEMATOLOGY ORDERABLE S Performing Organization Address City/[facility]/ZIP Co de Phone Number [facility] [place] [address] * (ABNORMAL) APTT (10/31/2020 10:52 PM EST) Partial Thromboplastin Time 45(H) 25 - 37 sec [facility] Comment: The PTT is NOT appropriate for heparin monitoring. Use the Anti-Xa level for heparin monitoring (HEP UFH) or LMWH monitoring (HEP LMW). A PTT less than 37 seconds generally indicates adequate hemostasis. Blood specimen (specimen) 10/31/2020 10:52 PM EST 10/31/2020 10:58 PM EST Narrative Resulting Agency Comment Spec In Lab Geovani Strange MD HEMATOLOGY ORDERABL ES Performing Organization Address [facility] Co de Phone Number [facility] [place] [address] * (ABNORMAL) Prothrombin Time (10/31/2020 10:52 PM EST) Prothrombin Time 24.1(H) 9.4 - 12.5 sec [facility] International Normalization Ratio 2.1 [facility] Comment: An INR <2.0 indicates adequate [...] MD HEMATOLOGY ORDERABL ES Performing Organization Address [facility] Co de Phone Number [facility] [place] [address] * (ABNORMAL) Phosphorus (10/31/2020 10:52 PM EST) Phosphorus 2.3(L) 2.5 - 4.5 mg/dL [facility] Blood specimen (specimen) 10/31/2020 10:52 PM EST 10/31/2020 10:58 PM EST Narrative Resulting Agency Comment Spec In Lab Geovani Strange MD CHEMISTRY ORDERABLE S Performing Organization Address City/[facility]/ZIP Co de Phone Number [facility] [place] [address] * Magnesium (10/31/2020 10:52 PM EST) Magnesium 0.83 0.69 - 1.07 mmol/L [facility] Blood specimen (specimen) 10/31/2020 10:52 PM EST 10/31/2020 10:58 PM EST Narrative Resulting Agency Comment Spec In Lab Geovani Strange MD CHEMISTRY ORDERABLE S Performing Organization Address [facility] Co de Phone Number [facility] [place] [address] * (ABNORMAL) Basic Metabolic Panel (non-fasting) (10/31/2020 10:52 PM EST) Glucose 124 65 - 199 mg/dL [facility] Comment:Diabetes: >=200 mg/d L plus symptoms Blood Urea Nitrogen 17 10 - 20 mg/dL [facility] Creatinine 0.72(L) 0.80 - 1.50 mg/dL [facility] Sodium 140 135 - 145 mmol/L [facility] Potassium 3.7 3.5 - 5.0 mmol/L [facility] Comment: Please note: ??Patients with WBC >100,000 may have falsely elevated Potassium levels. ??For accurate Potassium quantification in these patients send serum separator tube (gold top) for subsequent determinations. ??Contact the Clinical Chemistry Laboratory if there are any questions. Chloride 102 98 - 107 mmol/L [facility] Carbon Dioxide 25 22 - 31 mmol/L [facility] Anion Gap 13 5 - 15 mmol/L [facility] Calcium 9.5 8.5 - 10.5 mg/dL [facility] Est Glomerular Filtration Rate 93 >=60 mL/min/1. 73 m?? [facility] Comment: This patient? s estimated glomerular [...] MD CHEMISTRY ORDERABLE S Performing Organization Address City/[facility]/ZIP Co de Phone Number [facility] [place] [address] * EKG 12 Lead (10/31/2020 7:22 PM EST) Ventricular rate 80 BPM MUSE SYSTEM Atrial Rate 80 BPM MUSE SYSTEM QRS Duration 114 ms MUSE SYSTEM Q-T Interval 394 ms MUSE SYSTEM QTC Calculated (Bezet) 454 ms MUSE SYSTEM Calculated R [place] -33 degrees MUSE SYSTEM Calculated T [place] 4 degrees MUSE SYSTEM INTERPRETATION Atrial fibrillation with premature ventricular or aberrantly conducted complexes Left axis deviation 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 For questions regarding this report, please contact the number below. ? Electronically signed by: Seymour Galaviz MD, [facility] ([phone]), at 10/31/2020 7:19 PM Narrative 10/31/2020 7:19 PM EST EXAMINATION: XR [...] this report, please contact the number below. Electronically signed by: Seymour Galaviz MD, [facility]([phone]), at 10/31/2020 7:19 PM Geovani Strange MD IMG DX ORDERABLES * COVID-19 PCR (10/31/2020 6:52 PM EST) SARS-CoV-2 RNA (Rapid) Not Detected Not Detected [facility] Comment: This result should be interpreted [...] on the instructions for use provided by [employer] and additional guidance provided by CDC and FDA. Testing is performed in the [facility] Laboratory within the Department of Pathology and Laboratory Medicine at 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 Use the Anti-Xa level for heparin monitoring (HEP UFH) or LMWH monitoring (HEP LMW). A PTT less than 37 seconds generally indicates adequate hemostasis. Blood specimen (specimen) 10/31/2020 6:06 PM EST 10/31/2020 6:14 PM EST Narrative Resulting Agency Comment Spec In Lab Geovani Strange MD HEMATOLOGY ORDERABL ES Performing Organization Address City/[facility] Co de Phone Number [facility] [place] [address] * (ABNORMAL) Prothrombin Time (10/31/2020 6:06 PM EST) Prothrombin Time 24.1(H) 9.4 - 12.5 sec [facility] International Normalization Ratio 2.1 [facility] Comment: An INR <2.0 indicates adequate [...] MD HEMATOLOGY ORDERABL ES Performing Organization Address [facility] Co de Phone Number [facility] [place] [address] * XR Pelvis (Generic) (10/31/2020 5:57 PM [...] the number below. ? Electronically signed by: Seymour Galaviz MD, [facility] ([phone]), at 10/31/2020 6:56 PM Narrative 10/31/2020 6:56 PM EST EXAMINATION: XR [...] the number below. ? Electronically signed by: Seymour Galaviz MD, [facility] ([phone]), at 10/31/2020 6:56 PM Narrative 10/31/2020 6:56 PM EST EXAMINATION: XR [...] this report, please contact the number below. Electronically signed by: Seymour Galaviz MD, [facility]([phone]), at 10/31/2020 6:56 PM Champ Whitaker DO IMG DX ORDERABLES * Scan, Peripheral Blood (10/31/2020 3:00 PM EST) Plat estimate Normal [facility] RBC Morphology Normal [facility] Blood specimen (specimen) 10/31/2020 3:00 PM EST 10/31/2020 3:08 PM EST Narrative Resulting Agency Comment Spec In Lab Bucky SIMEON HEMATOLOGY ORDERABLE S Performing Organization Address City/[facility] Co de Phone Number [facility] [place] [address] * ABORH Recheck Status (10/31/2020 3:00 PM EST) ABORH Type Recheck Completed [facility] Blood specimen (specimen) 10/31/2020 3:00 PM EST 10/31/2020 3:47 PM EST Narrative Resulting Agency Comment Spec In Lab [facility] ORDER JESSIE Performing Organization Address City/[facility] Co de Phone Number [facility] [place] [address] * Antibody screen (10/31/2020 3:00 PM EST) [facility] Ab Screen Interp Negative [facility] Expires at [id number] on: 11/03/2020 [facility] Blood specimen (specimen) 10/31/2020 3:00 PM EST 10/31/2020 3:47 PM EST Narrative Resulting Agency Comment Spec In Lab [facility] ORDER JESSIE [facility] [place] [address] * ABO/Rh Typing (10/31/2020 3:00 PM EST) ABORH Type O Pos [facility] Blood specimen (specimen) 10/31/2020 3:00 PM EST 10/31/2020 3:47 PM EST Narrative Resulting Agency Comment Spec In Lab Bucky Carlos [facility] ORDER JESSIE Performing Organization Address City/[facility]/ZIP Co de Phone Number [facility] [place] [address] * (ABNORMAL) Differential, Automated (10/31/2020 3:00 PM EST) Pathologist [facility] Neutrophil % 73.3 % [facility] Neutrophil Absolute 6.61(H) 1.70 - 6.10 x10(3)/mc L [facility] Lymph % 18.1 % [facility] Lymphocytes Abs 1.6 0.9 - 3.2 x10(3)/mc L [facility] Monocyte % 7.0 % [facility] Monocyte Abs 0.6 0.3 - 0.9 x10(3)/mc L [facility] Eos % 0.9 % [facility] Eosinophils Abs 0.1 0.0 - 0.4 x10(3)/mc L [facility] Basophil % 0.4 % [facility] Baso Absolute 0.0 0.0 - 0.1 x10(3)/mc L [facility] Immature Gran % 0.30 % [facility] Comment: Immature granulocytes(IG's)percentage and absolute count will include metamyelocytes, myelocytes, and promyelocytes. Blood smears from CBCs yielding IG's will be scanned manually for concordance. If this scan disagrees with the automated IG or if promyelocytes are noted, a manual differential will be performed. Immature Gran Absolute 0.03 0.00 - 0.04 x10(3)/ L [facility] Blood specimen (specimen) 10/31/2020 3:00 PM EST 10/31/2020 3:08 PM EST Narrative Resulting Agency Comment Spec In Lab Bucky SIMEON HEMATOLOGY ORDERABLE S [facility] [place] [address] * (ABNORMAL) Hemogram (10/31/2020 3:00 PM EST) White Blood Cell 9.0 4.0 - 9.5 x10(3)/[facility] Red Blood Cell 6.20(H) 4.58 - 5.54 x10(6)/[facility] Hemoglobin 18.6(H) 13.7 - 16.5 gm/dL [facility] Hematocrit 58.3(H) 40.5 - 48.5 % [facility] Mean Cell Volume 94.0(H) 82.9 - 93.1 fL [facility] Mean Cell Hemoglobin 30.0 27.5 - 32.1 pg [facility] Mean Cell Hemoglobin Concentration 31.9(L) 32.0 - 35.7 gm/dL [facility] Platelet 265 145 - 357 x10(3)/[facility] RDW Standard Deviation 55.8(H) 36.0 - 45.0 [facility] RDW coefficient of variation 17.2(H) 11.4 - 13.8 % [facility] Mean Platelet Volume 9.1 7.6 - 12.9 [facility] NRBC% auto 0.0 % [facility] NRBC Absolute 0.000 0.000 - 0.000 x10(3)/[facility] Blood specimen (specimen) 10/31/2020 3:00 PM EST 10/31/2020 3:08 PM EST Narrative Resulting Agency Comment Spec In Lab Bucky SIMEON HEMATOLOGY ORDERABLE S [facility] [place] [address] * APTT (10/31/2020 3:00 PM EST) Partial Thromboplastin Time Not Perf 25 - 37 [facility] Comment: The PTT is NOT appropriate for heparin monitoring. Use the Anti-Xa level for heparin monitoring (HEP UFH) or LMWH monitoring (HEP LMW). A PTT less than 37 seconds generally indicates adequate hemostasis. hct over 55 Called by: HARDEEP, Read back by: Lolita Valiente, Date/Time:10/31/20 16:04. Corrected from 46 sec [HI] on 10/31/20 16:05:57 EST by Napoleon Ramos Blood specimen (specimen) 10/31/2020 3:00 PM EST 10/31/2020 3:08 PM EST Narrative Resulting Agency Comment Spec In Lab Champ Whitaker DO HEMATOLOGY ORDERABLE S [facility] [place] [address] * Prothrombin Time (10/31/2020 3:00 PM EST) Prothrombin Time Not Perf 9.4 - 12.5 [facility] Comment: hct over 55 Called by: BDB, Read back by: Lolita Valienet, Date/Time:10/31/20 16:04. Corrected from 24.6 sec [HI] on 10/31/20 16:05:57 EST by Napoleon Ramos International Normalization Ratio Not Perf [facility] Comment: An INR <2.0 indicates adequate [...] Lab Champ Whitaker DO HEMATOLOGY ORDERABLE S [facility] [place] [address] * Basic Metabolic Panel (non-fasting) (10/31/2020 3:00 PM EST) Glucose 128 65 - 199 mg/dL [facility] Comment:Diabetes: >=200 mg/d L plus symptoms Blood Urea Nitrogen 18 10 - 20 mg/dL [facility] Creatinine 0.86 0.80 - 1.50 mg/dL [facility] Sodium 142 135 - 145 mmol/L [facility] Potassium 4.1 3.5 - 5.0 mmol/L [facility] Comment: Please note: ??Patients with WBC >100,000 may have falsely elevated Potassium levels. ??For accurate Potassium quantification in these patients send serum separator tube (gold top) for subsequent determinations. ??Contact the Clinical Chemistry Laboratory if there are any questions. Chloride 103 98 - 107 mmol/L [facility] Carbon Dioxide 27 22 - 31 mmol/L [facility] Anion Gap 12 5 - 15 mmol/L [facility] Calcium 10.0 8.5 - 10.5 mg/dL [facility] Est Glomerular Filtration Rate 86 >=60 mL/min/1. 73 m?? [facility] Comment: This patient? s estimated glomerular [...] In Lab Champ Whitaker DO CHEMISTRY ORDERABLES [facility] [place] [address] documented in this encounter Visit Diagnoses Not on filedocumented in this encounter Admitting Diagnoses Diagnosis Failed [...] Given 10/31/2020 10:56 PM EST 80 mg BUpivacaine (pf) (Marcaine) (2.5 mg/mL) 0.25% injection ONCE PRN, Starting on Fri11/01/20 at 1437, Until Fri11/03/20 at 1721, Intra-Operative (Intra-Procedure), Routine Given 11/01/2020 2:39 PM EST 50 mLs 19- Surgical Site Given 11/01/2020 2:37 PM EST 10 mLs 19 - Surgical Site celecoxib (CeleBREX) capsule 200 mg 200 mg, [...] on Fri11/02/20 at 1900, Last dose on Helen 11/09/20 at 1200, Routine, Indication for (Active or Suspected): Skin/Skin Structure Given 11/03/2020 12:01 PM EST 500 mg Given 11/03/2020 5:24 AM EST 500 mg Given 11/03/2020 12:09 AM EST 500 mg cloNIDine (pf) (Duraclon) (100 mcg/mL) Epidural injection ONCE PRN, Starting on Fri11/01/20 at 1440, Until Fri11/03/20 at 1721, Intra-Operative (Intra-Procedure), Routine Given 11/01/2020 2:40 PM EST 50 mcg 19- Surgical Site dextrose 10% infusion 250 mL, at 1,000 [...] Given 11/02/2020 8:37 AM EST 40 mg gelatin compressed (GELFOAM) sponge ONCE PRN, Starting on Fri11/01/20 at 1509, Until Fri11/03/20 at 1721, Intra-Operative (Intra-Procedure) Given 11/01/2020 3:09 PM EST 100 cm 19- Surgical Site glucagon (Glucagen) (1 mg/mL) injection solution 1 mg 1 mg, Intramuscular, EVERY 30 MIN PRN, Starting on Fri10/31/20 at 2024, Until Fri11/03/20 at 1721, Low blood sugar, [...] Fri10/31/20 at 2024, Until Fri11/03/20 at 1721, Low blood sugar, [...] Given 11/01/2020 5:40 PM EST 15 mg ketorolac (Toradol) (30 mg/mL) injection ONCE PRN, Starting on Fri11/01/20 at 1440, Until Fri11/03/20 at 1721, Intra-Operative (Intra-Procedure), Routine Given 11/01/2020 2:40 PM EST 30 mg 19- Surgical Site lisinopriL (Prinivil;Zestril) tablet 20 mg 20 mg, [...] Fri11/02/20 at 1330, Until Discontinued, To pannus Given 11/03/2020 9:[address] Given 11/02/2020 8:19 PM EST Given 11/02/2020 2:51 PM EST multivitamin with minerals (THERA-M) tablet 1 tablet 1 tablet, Oral, DAILY, First dose on Fri11/01/20 at 1800, Until Discontinued, Routine Given 11/03/2020 9:17 AM EST 1 tablet Given 11/02/2020 8:37 AM EST 1 tablet Given 11/01/2020 8:13 PM EST 1 tablet oxyCODONE (Roxicodone) tablet 10 mg 10 mg, [...] Given 11/01/2020 8:13 PM EST 20 mg polyethylene glycoL (Miralax) packet 17 g [...] Given 11/02/2020 8:37 AM EST 20 mEq povidone-iodine 5 % ophthalmic solution ONCE PRN, Starting on Fri11/01/20 at 1437, Until Fri11/03/20 at 1721, Intra-Operative (Intra-Procedure), Routine Given 11/01/2020 2:37 PM EST 30 mLs 19- Surgical Site senna-docusate (Pericolace) 8.6-50 mg per tablet 2 [...] Given 11/02/2020 8:38 AM EST 5 mLs thrombin (bovine) (THROMBIN-JMI) solution ONCE PRN, Starting on Fri11/01/20 at 1509, Until Fri11/03/20 at 1721, Intra-Operative (Intra-Procedure) Given 11/01/2020 3:09 PM EST 10,000 Units 19- Surgical Site thrombin (Bovine) (THROMBINAR) kit ONCE PRN, Starting on Fri11/01/20 at 1509, Until Fri11/03/20 at 1721, Intra-Operative (Intra-Procedure) Given 11/01/2020 3:09 PM EST 20,000 Units 19- Surgical Site tobramycin (Nebcin) injection ONCE PRN, Starting on Fri11/01/20 at 1507, Until Fri11/02/20 at 0612, Intra-Operative (Intra-Procedure), Routine Given 11/01/2020 3:07 PM EST 1.2 g 19- Surgical Site vancomycin (Vancocin) injection ONCE PRN, Starting on Fri11/01/20 at 1508, Until Helen 11/02/20 at 0612, Intra-Operative (Intra-Procedure), Routine Given 11/01/2020 3:08 PM EST 1 g 19- Surgical Site warfarin (Coumadin) tablet 7.5 mg 7.5 mg, [...] 0543 (Given - Provider: Noe Ny RN)1329 (NOV Hold - Provider: Admin Adt [...] 0810 (Given - Provider: Nick Chaves RN)1329 (MAR Hold - Provider: Admin Adt - Reason: Transfer to a Procedural area)1850 (MAR Unhold - Provider: Admin Adt) 0838 (Given - Provider: Sho Castro, JACOB) 0918 (Given - Provider: Dee StevensJACOB) atorvastatin (Lipitor) tablet 80 mg 80 mg, [...] Helen 11/02/20 at 0600, Last dose on Fri11/02/20 at [...] Sho Castro, JACOB)2013 (Given - Provider: Jewell Gonzalez RN) 0918 (Given - Provider: Dee Stevens, JACOB) cephALEXin (Keflex) capsule 500 mg 500 mg, Oral, EVERY 6 HOURS SCHEDULED, 28 doses, First dose on Fri11/02/20 at 1900, Last dose on Fri11/09/20 at 1200, Routine, Indication for (Active or Suspected): Skin/Skin Structure 1830 (Given - Provider: Miladys Sawant) 0009 (Given - Provider: Jewell Gonzalez, JACOB)0524 (Given - Provider: Jewell Gonzalez RN)1201 (Given - Provider: Dee Stevens, JACOB) furosemide (Lasix) tablet 40 mg 40 mg, Oral, 2 TIMES DAILY, First dose (after last modification) on Fri10/31/20 at 2330, Until Discontinued, Hold for systolic blood pressure less than 95, Routine 0809 (Given - Provider: Nick Chaves RN)1329 (NOV Hold - Provider: Admin Adt - Reason: Transfer to a Procedural area)1700 (Not Given - Provider: Vilma Archer RN - Reason: See comment - Comment: Given at 2019)1850 (NOV Unhold - Provider: Admin Adt)2019 (Given - Provider: Vilma Archer RN - Comment: due during NOV hold) 0837 (Given - Provider: Sho Castro RN)174 (Given - Provider: April Tarango, JACOB) 0918 [...] Comment: BS 125)1235 (Given - Provider: April Tarango, JACOB)1725 (Given - Provider: April Tarango RN)2017 (Given - Provider: Jewell Gonzalez RN) 0009 (Given - Provider: Jewell Gonzalez RN)0343 (Given - Provider: Jewell Gonzalez RN)0800 (Not Given - Provider: Dee Stevens RN - Reason: Order parameters not met - Comment: bg 142)1200 (Given - Provider: Dee Stevens RN) lisinopriL (Prinivil;Zestril) tablet 20 mg 20 mg, Oral, DAILY, First dose on Fri11/03/20 at 0900, Until Discontinued, Hold for systolic blood pressure less than 120, Routine 0918 (Given - Provider: Dee Stevens RN) metoprolol [...] 0837 (Given - Provider: Sho Castro RN) 0918 (Given - Provider: Dee R Freudenberger, RN) miconazole (MICOTIN) 2 % powder Topical (Top), 2 TIMES DAILY, First dose on Fri11/02/20 at 1330, Until Discontinued, To pannus 1451 (Given - Provider: April Tarango, JACOB)2018 (Given - Provider: Jewell Gonzalez, JACOB) 0917 (Given - Provider: Dee Stevens, JACOB) multivitamin with minerals (THERA-M) tablet 1 tablet 1 tablet, Oral, DAILY, First dose on Fri11/01/20 at 1800, Until Discontinued, Routine 2012 (Given - Provider: Vilma Archer RN) 08 (Given - Provider: Sho Castro RN) 09 (Given - Provider: Dee Stevens RN) pantoprazole EC (Protonix) tablet 20 mg 20 mg, Oral, DAILY, First dose on Fri11/01/20 at 1800, Until Discontinued, DO NOT CRUSH OR OPEN 2012 (Given - Provider: Vilma Archer RN) 836 (Given - Provider: Sho Castro RN) 09 (Given - Provider: Dee Stevens RN) phytonadione (vitamin K1) (Mephyton) tablet 2.5 mg (COMPLETED) 2.5 mg, Oral, ONCE, 1 dose, On Fri11/01/20 at 0600, STAT 0543 (Given - Provider: Noe Ny RN) polyethylene glycoL (Miralax) packet 17 g 17 g, Oral, 2 TIMES DAILY, First dose on Fri10/31/20 at 2115, Until Discontinued, Routine 0900 (Not Given - Provider: Nick Chaves RN - Reason: Contraindicated - Comment: OR today)1329 (NOV Hold - Provider: Admin Adt - Reason: Transfer to a Procedural area)1850 (MAR Unhold - Provider: Admin Adt)2099 (Not Given [...] Discontinued, Routine 0102 (Given - Provider: Noe Ny RN)0809 (Given - Provider: Nick Chaves RN)1329 (NOV Hold - Provider: Admin Adt - Reason: Transfer to a Procedural area)1850 (NOV Unhold - Provider: Admin Adt)2012 (Given - Provider: Vilma Archer RN) 0837 (Given - Provider: Sho Castro, JACOB)2014 (Given - Provider: Jewell Gonzalez RN) 1200 (Given - Provider: Dee Stevens RN - Comment: med not available) senna-docusate (Pericolace) 8.6-50 mg per tablet 2 tablet 2 tablet, Oral, 2 TIMES DAILY, First dose on Fri10/31/20 at 2115, Until Discontinued, Routine 0810 (Given - Provider: Nick Chaves RN)1329 (NOV Hold - Provider: Admin Adt - Reason: Transfer to a Procedural area)185 (NOV Unhold - Provider: Admin Adt)2099 (Not Given - Provider: Vilma Archer RN - Reason: Patient/family refused) 0837 (Given - Provider: Sho Castro RN)2013 (Given - Provider: Jewell Gonzalez RN) 0917 (Given - Provider: Dee Stevens RN) sodium chloride 0.9 % (flush) flush 5 mL 5 mL, Intravenous, 2 TIMES DAILY, First dose on Fri10/31/20 at 2115, Until Discontinued, Routine 0812 (Given - Provider: Nick Chaves RN)1329 (NOV Hold - Provider: Admin Adt - Reason: Transfer to a Procedural area)1850 (NOV Unhold - Provider: Admin Adt)2011 (Given - Provider: Vilma Archer RN) 0838 (Given - Provider: Sho Castro RN)2019 (Given - Provider: Jewell Gonzalez RN) 0919 (Given - Provider: Dee Stevens, JACOB) warfarin (COUMADIN) daily order reminder Oral, EVERY 24 HOURS, First dose on Helen 11/02/20 at 1400, Until Discontinued, If the daily warfarin order has not been placed, contact the Provider to confirm that the order will be written, the dose is held or discontinued. 1400 (Dose confirmed - Provider: April Tarango RN) 1400 (Dose confirmed - Provider: Dee Stevens, JACOB) warfarin (Coumadin) tablet 5 mg (COMPLETED) 5 mg, Oral, ONCE, 1 dose, On Fri11/01/20 at 2000, DO NOT SPLIT, CRUSH OR OPEN, Routine 2012 (Given - Provider: Vilma Archer RN) warfarin (Coumadin) tablet 5 mg (COMPLETED) 5 mg, Oral, ONCE, 1 dose, On Fri11/02/20 at 1700, DO NOT SPLIT, CRUSH OR OPEN, Routine 1741 (Given - Provider: April Tarango RN) warfarin (Coumadin) tablet 7.5 mg 7.5 mg, Oral, ONCE, 1 dose, On Fri11/03/20 at 1700, DO NOT SPLIT, CRUSH OR OPEN, Routine Continuous Medication Order 11/01/2020 11/02/2020 11/03/2020 sodium chloride 0.9% infusion () 100 mL/hr, Intravenous, CONTINUOUS, Starting on Fri11/01/20 at 1800, Until Fri11/02/20 at 1759, Recovery (Recovery-Hospital Unit) 1818 (New Bag - Provider: Raven Pruett RN) PRN Medication Order 11/01/2020 11/02/2020 11/03/2020 bisacodyL (Dulcolax) suppository 10 mg 10 mg, Rectal, DAILY PRN, Starting on Fri10/31/20 at 2024, Until Fri11/03/20 at 1721, Constipation, Administer if [...] Reason: Transfer to a Procedural area)1850 ([facility] Unhold - Provider: Admin Adt) bisacodyl EC (Dulcolax) tablet 10 mg 10 mg, Oral, 2 TIMES DAILY PRN, Starting on Fri10/31/20 at 2024, Until Fri11/03/20 at 1721, Constipation, DO NOT [...] Reason: Transfer to a Procedural area)185 ([facility] Unhold - Provider: Admin Adt) BUpivacaine (pf) [...] area)1850 (NOV Unhold - Provider: Admin Adt) gelatin compressed [...] duration of the active insulin., Routine 1329 (NOV Hold - Provider: Admin Adt - Reason: Transfer to a Procedural area)185 (NOV Unhold - Provider: Admin Adt) glucose (GLUTOSE) 40% oral geL(Linked Group 2) 15-30 g, Buccal, EVERY 30 MIN PRN, Starting on Fri10/31/20 at 2024, Until Fri11/03/20 at 1721, Low blood sugar, [...] PRN, 1 dose, Starting on Fri10/31/20 at 202, Until Fri11/03/20 at 1721, for discomfort with PIV insertion, Routine 1329 (NOV Hold - Provider: Admin Adt - Reason: Transfer to a Procedural area)1850 (NOV Unhold - Provider: Admin Adt) ondansetron (pf) (Zofran) (2 mg/mL) injection 4 mg 4 mg, Intravenous, EVERY 8 HOURS PRN, Starting on Fri10/31/20 at 202, Until Fri11/03/20 at 1721, Nausea, If multiple antiemetics are ordered, use ondansetron first, prochlorperazine second, metoclopramide third. 1329 (NOV Hold - Provider: Admin Adt - Reason: Transfer to a Procedural area)185 (NOV Unhold - Provider: Admin Adt) ondansetron (pf) (Zofran) (2 mg/mL) injection 4 mg (CANCELED) 4 mg, Intravenous, EVERY 30 MIN PRN, Starting on Fri11/01/20 at 1644, Until Fri11/01/20 at 1850, Nausea, May repeat 4 mg once in 30 minutes. If multiple antiemetics ordered, use ondansetron first and if ineffective use prochlorperazine second and if ineffective use promethazine, PACU Recovery 1740 (Given - Provider: Raven Pruett RN) oxyCODONE (Roxicodone) tablet 10 mg(Linked Group 3) 10 mg, Oral, EVERY 4 HOURS PRN, Starting on Fri10/31/20 at 202, Until Fri11/03/20 at 1721, Pain, moderate pain (4-6), For moderate pain (4-6). Do not exceed 15 mg in 4 hours. If pain not relieved, call provider., Routine 132 (NOV Hold - Provider: Admin Adt - Reason: Transfer to a Procedural area)1849 (NOV Unhold - Provider: Admin Adt) oxyCODONE (Roxicodone) tablet 15 mg(Linked Group 3) 15 mg, Oral, EVERY 4 HOURS PRN, Starting on Fri10/31/20 at 2024, Until Fri11/03/20 at 1721, Pain, severe pain (7-10), For severe pain (7-10). Do not exceed 15 mg in 4 hours. If pain not relieved, call provider., Routine 1329 (NOV Hold - Provider: Admin Adt - Reason: Transfer to a Procedural area)1849 (NOV Unhold - Provider: Admin Adt) oxyCODONE (Roxicodone) tablet 5 mg(Linked Group 3) 5 mg, Oral, EVERY 4 HOURS PRN, Starting on Fri10/31/20 at 2024, Until Fri11/03/20 at 1721, Pain, mild pain (1-3), For mild pain (1-3). Do not exceed 15 mg in 4 hours. If pain not relieved, call provider, Routine 1329 (NOV Hold - Provider: Admin Adt - Reason: Transfer to a Procedural area)1850 ([facility] Unhold - Provider: Admin Adt) povidone-iodine [...] 1 MIN PRN, Starting on Fri10/31/20 at 2024, Until Fri11/03/20 at 1721, flush, Flush pertains to all indwelling lines. Flush per protocol found in the job aid using the link provided on this medication record., Routine 1329 ([facility] Hold - Provider: Admin Adt - Reason: Transfer to a Procedural area)1850 ([facility] Unhold - Provider: Admin Adt) thrombin [...] PRN, Starting on Fri11/01/20 at 1507, Until Helen 11/02/20 at 0612, Intra-Operative (Intra-Procedure), Routine 1507 (Given - Provider: Geovani Strange MD - Comment: Mixed with 1g Vancomycin in Stimulan.) vancomycin (Vancocin) injection (CANCELED) ONCE PRN, Starting on Fri11/01/20 at 1508, Until Helen 11/02/20 at 0612, Intra-Operative (Intra-Procedure), Routine 1508 (Given - Provider: Geovani Strange MD - Comment: Mixed with 1.2g Tobramycin and Stimulan.) Linked Groups Order Group 1: POCT Fingerstick Glucose (CANCELED) Routine, EVERY 4 HOURS, First occurrence on Helen 11/02/20 at 0800, Until Specified, Consider choosing FOUR [...] at 2023, Until Fri11/03/20 at 172, Pain, severe pain (7-10), For severe pain (7-10). Do not exceed 15 mg in 4 hours. If pain not relieved, call provider., Routine documented in this encounter Care Teams Tax Senior Associate Relationship Specialty Start Date End Date Nick Nettles MD [address] [place] [address] PCP - General Internal Medicine 10/05/19 documented as of this encounter
--- OUTSIDE RECORDS SUMMARY | 2024-08-20 06:21 | XMS_ITS | Encounter Summary ---
[place] [address] Care Team Providers Care Work Car Operator Name Role Phone Nick Nettles MD Primary Care Provider [phone] Encounter Details Date Type Department Care Team (Late st Contact Info) Description 10/30/2020 [place] [phone] Irma Valdovinos, RN Social History Tobacco Use Types Packs/Day [...] encounter Miscellaneous Notes * Telephone Encounter - Irma Valdovinos CMA - 10/30/2020 2:57 PM EST I called and spoke with Mr. Sandoval to inform him that x-ray and lab appointments have been scheduled before his appointment. After confirming his date of , I instructed him to go to on 11/02/20 at 8:30 a.m for xray then head to 3L- Lab at 8:50 a.m. followed by 3C for his appointment at 10a.m. with Dr. Cuevas. He verbalized understanding and had no questions or concerns at this time. Irma Valdovinos(KAE) documented in this encounter Plan of Treatment Not on file documented as of this encounter Visit Diagnoses Not on filedocumented in this encounter Care Teams Work Car Operator Relationship Specialty Start Date End Date Nick Nettles MD [address] [place] [address] PCP - General Internal Medicine 10/05/19 documented as of this encounter
--- OUTSIDE RECORDS SUMMARY | 2024-08-20 06:22 | XMS_ITS | Encounter Summary ---
Author Organization [facility] Address [facility] [place] [address] Care Team Providers Care Manager Career Name Role Phone Cherise Staples MD Primary Care Provider [phone] Encounter Details Date Type Department Care Team (Late st Contact Info) Description 06/01/2018 [place] [address] Edyta Arambula Jr., MD [facility] [place] [address] Nephrolithiasis Social History Tobacco Use Types Packs/Day Years [...] on file documented as of this encounter Results * US Retroperitoneal Complete (07/01/2018 11:06 AM EDT) Anatomical Region Laterality Modality Abdomen Ultrasound 07/01/2018 11:0 1 AM EDT Impressions 07/01/2018 11:33 AM EDT 1. ??Study is limited by patient body habitus. Within this limitation, no sonographically evident nephrolithiasis, bilaterally. 2. ??Mild bilateral pelviectasis, largely unchanged. 3. ??Mild interval increase in size of septated mid pole left renal cyst now measuring maximally approximately 2.4 cm. Continued attention on follow-up imaging. 4. ??Poor evaluation of the bladder due to incomplete distention. ?Jane Aguilar MD Electronically Signed Final Report ?? 07/01/2018 11:33 am Narrative 07/01/2018 11:33 AM EDT Renal ? (Signed Final 07/01/2018 11:33 am) PATIENT INFO: ID #: ? [id number] ?: ??[birth year] (72 yrs) Name: ? LAZARO CROUCH ? Visit Date: 07/01/2018 11:01 am PERFORMED BY: Performed By: ? Isabel Mason RDMS Attending: ?Lauren SPIVEY, Jane Padilla. Referred By: ?EDYTA ARAMBULA Location: ? [facility] SERVICE(S) PROVIDED: ??URETRO - Retroperitoneal Complete - [id number] ? [id number] INDICATIONS: ??stones TECHNIQUE/SCAN QUALITY: Scan Quality: ?? Limited by patient body habitus. COMPARISON: REnal/bladder ultrasound 07/30/16 [facility]; CT abdomen/pelvis 08/29/15 [facility]. RIGHT KIDNEY: Size (cm) ?L: ??13.0 Cortical Thickness: ?Normal Cortical Echogenicity: ?? Normal Hydronephrosis: ?Mild pelviectasis Comment: ?No renal calculi seen. LEFT KIDNEY: Size (cm) ?L: ??14.5 Cortical Thickness: ?Normal Cortical Echogenicity: ?? Normal Hydronephrosis: ?Mild pelviectasis Comment: ?No renal calcui seen. ? Mid pole cyst with thin septation measuring 2.4 x ? 2.2 x 2.2 cm (previously measured (2.1 x 2.1 x 1.7 ? cm). URINARY BLADDER: Pre-void (cm) ? L: ??3.0 ? AP: ??2.5 ? TV: ??4.2 Vol (ml): ?16.5 Comment: ?Poor visualiztion, patient voided before scan. Procedure Note Jane Aguilar MD - 07/01/2018 Renal (Signed Final 07/01/2018 11:33 am) PATIENT INFO: ID #: [id number] : [birth year] (72 yrs) Name: LAZARO CROUCH Visit Date: 07/01/2018 11:01 am PERFORMED BY: Performed By: Isabel Mason RDMS Attending: Jane Aguilar MD Referred By: EDYTA ARAMBULA JR Location: [facility] SERVICE(S) PROVIDED: URETRO - Retroperitoneal Complete - [id number] INDICATIONS: stones TECHNIQUE/SCAN QUALITY: Scan Quality: Limited by patient body habitus. COMPARISON: REnal/bladder ultrasound 07/30/16 [facility]; CT abdomen/pelvis 08/29/15 from [facility]. RIGHT KIDNEY: Size (cm) L: 13.0 Cortical Thickness: Normal Cortical Echogenicity: Normal Hydronephrosis: Mild pelviectasis Comment: No renal calculi seen. LEFT KIDNEY: Size (cm) L: 14.5 Cortical Thickness: Normal Cortical Echogenicity: Normal Hydronephrosis: Mild pelviectasis Comment: No renal calcui seen. Mid pole cyst with thin septation measuring 2.4 x 2.2 x 2.2 cm (previously measured (2.1 x 2.1 x 1.7 cm). URINARY BLADDER: Pre-void (cm) L: 3.0 AP: 2.5 TV: 4.2 Vol (ml): 16.5 Comment: Poor visualiztion, patient voided before scan. IMPRESSION 1. Study is limited by patient body habitus. Within this limitation, no sonographically evident nephrolithiasis, bilaterally. 2. Mild bilateral pelviectasis, largely unchanged. 3. Mild interval increase in size of septated mid pole left renal cyst now measuring maximally approximately 2.4 cm. Continued attention on follow-up imaging. 4. Poor evaluation of the bladder due to incomplete distention. Jane Aguilar MD Electronically Signed Final Report 07/01/2018 11:33 am Edyta Arambula Jr., MD IMG US GEN ORDERAB LES documented in this encounter Visit Diagnoses Diagnosis Nephrolithiasis Calculus of kidney Nephrolithiasis Calculus of kidney documented in this encounter Care Teams Manager Career Relationship Specialty Start Date End Date Cheirse Staples MD [address] [place] [id number] PCP - General 07/31/10 10/04/19 documented as of this encounter
--- OUTSIDE RECORDS SUMMARY | 2024-08-20 06:22 | XMS_ITS | Encounter Summary ---
[place] [address] Care Team Providers Care Group Fitness Manager Name Role Phone Cherise Staples MD Primary Care Provider [phone] Encounter Details Date Type Department Care Team (Latest Contact Info) Description 01/16/2018 11:45 AM EDT Laboratory Appointment Lab at [address] [phone] (HFpEF) heart failure with preserved ejection fraction; Type 2 diabetes mellitus with complication, without long-term current use of insulin Social History Tobacco Use Types Packs/Day Years [...] Procedure Name Priority Date/Time Associated Diagnosis Comments HEMOGRAM STAT 01/16/2018 12:01 PM EDT (HFpEF) heart failure with preserved ejection fraction DIFFERENTIAL, AUTOMATED STAT 01/16/2018 12:01 PM EDT (HFpEF) heart failure with preserved ejection fraction CBC (WITH DIFF) STAT 01/16/2018 12:01 PM EDT (HFpEF) heart failure with preserved ejection fraction PRO-BRAIN NATRIURETIC PEPTIDE STAT 01/16/2018 12:01 PM EDT (HFpEF) heart failure with preserved ejection fraction HEMOGLOBIN A1C STAT 01/16/2018 12:01 PM EDT (HFpEF) heart failure with preserved ejection fraction Type 2 diabetes mellitus with complication, without long-term current use of insulin BASIC METABOLIC PANEL STAT 01/16/2018 12:01 PM EDT (HFpEF) heart failure with preserved ejection fraction documented in this encounter Results * (ABNORMAL) Differential, Automated (01/16/2018 12:01 PM EDT) Neutrophil % 67.5 % [facility] Neutrophil Absolute 6.80(H) 1.70 - 6.10 x10(3)/mc L [facility] Lymph % 20.9 % [facility] Lymphocytes Abs 2.1 0.9 - 3.2 x10(3)/mc L [facility] Monocyte % 8.7 % [facility] Monocyte Abs 0.9 0.3 - 0.9 x10(3)/mc L [facility] Eos % 1.8 % [facility] Eosinophils Abs 0.2 0.0 - 0.4 x10(3)/mc L [facility] Basophil % 0.7 % [facility] Baso Absolute 0.1 0.0 - 0.1 x10(3)/mc L [facility] Immature Gran % 0.40 % [facility] Comment: Immature granulocytes(IG's)percentage and absolute count will include metamyelocytes, myelocytes, and promyelocytes. Blood smears from CBCs yielding IG's will be scanned manually for concordance. If this scan disagrees with the automated IG or if promyelocytes are noted, a manual differential will be performed. Immature Gran Absolute 0.04 0.00 - 0.04 x10(3)/mc L [facility] Blood specimen (specimen) 01/16/2018 12:01 PM EDT 01/16/2018 1:00 PM EDT Narrative Resulting Agency Comment Spec In Lab Bruna Goodman APRN HEMATOLOGY ORDERABLE S [facility] [place] [address] * (ABNORMAL) Hemogram (01/16/2018 12:01 PM EDT) White Blood Cell 10.1(H) 4.0 - 9.5 x10(3)/[facility] Red Blood Cell 5.83(H) 4.58 - 5.54 x10(6)/mc L [facility] Hemoglobin 17.8(H) 13.7 - 16.5 gm/dL [facility] Hematocrit 54.6(H) 40.5 - 48.5 % [facility] Mean Cell Volume 93.7(H) 82.9 - 93.1 fL [facility] Mean Cell Hemoglobin 30.5 27.5 - 32.1 pg [facility] Mean Cell Hemoglobin Concentration 32.6 32.0 - 35.7 gm/dL [facility] Platelet 269 145 - 357 x10(3)/mc L [facility] RDW Standard Deviation 54.9(H) 36.0 - 45.0 [facility] RDW coefficient of variation 16.1(H) 11.4 - 13.8 % [facility] Mean Platelet Volume 9.9 7.6 - 12.9 [facility] NRBC% auto 0.0 % [facility] NRBC Absolute 0.000 0.000 - 0.000 x10(3)/[facility] Blood specimen (specimen) 01/16/2018 12:01 PM EDT 01/16/2018 1:00 PM EDT Narrative Resulting Agency Comment Spec In Lab Bruna Goodman APRN HEMATOLOGY ORDERABLE S Performing Organization Address [facility] Co de Phone Number [facility] [place] [address] * (ABNORMAL) pro-Brain Natriuretic Peptide (01/16/2018 12:01 PM EDT) NT-proBNP 422(H) <=125 pg/mL [facility] Blood specimen (specimen) 01/16/2018 12:01 PM EDT 01/16/2018 12:57 PM EDT Narrative Resulting Agency Comment Spec In Lab Bruna Goodman APRN CHEMISTRY ORDERABLES Performing Organization Address [facility] Co de Phone Number [facility] [place] [address] * (ABNORMAL) Hemoglobin A1c (01/16/2018 12:01 PM EDT) Pathologist [facility] Hemoglobin A1c 6.4(H) 4.3 - 5.6 % [facility] Comment: Reference Range: 4.3 - [...] Mellitus, Diabetes Care 2013; 36: Suppl. 1, G67-96 Estimated Average Glucose See note mg/dL [facility] Comment: Estimated Average Glucose not [...] into estimated average glucose values. ??Diabetes Care 2008:31(8):2890-4850. Blood specimen (specimen) 01/16/2018 12:01 PM EDT 01/16/2018 12:56 PM EDT Narrative Resulting Agency Comment Spec In Lab Bruna Goodman APRN CHEMISTRY ORDERABLES [facility] [place] [address] * (ABNORMAL) Basic Metabolic Panel (non-fasting) (01/16/2018 12:01 PM EDT) Glucose 122 65 - 199 mg/dL [facility] Comment:Diabetes: >=200 mg/d L plus symptoms Blood Urea Nitrogen 28(H) 10 - 20 mg/dL [facility] Creatinine 0.94 0.80 - 1.50 mg/dL [facility] Sodium 142 135 - 145 mmol/L [facility] Potassium 4.3 3.5 - 5.0 mmol/L [facility] Comment: Please note: ??Patients with WBC >100,000 may have falsely elevated Potassium levels. ??For accurate Potassium quantification in these patients send serum separator tube (gold top) for subsequent determinations. ??Contact the Clinical Chemistry Laboratory if there are any questions. Chloride 104 98 - 107 mmol/L [facility] Carbon Dioxide 22 22 - 31 mmol/L [facility] Anion Gap 16(H) 5 - 15 mmol/L [facility] Calcium 9.4 8.5 - 10.5 mg/dL [facility] Est Glomerular Filtration Rate >60 >=60 [facility] Comment: The reported eGFR should be multiplied by 1.2 for patients. The MDRD is not an appropriate measure of renal function for patients with body mass extremes or in patients with acute kidney failure. http://LicenseMetrics/DHnkdep http://LicenseMetrics/DHMCnkf Blood specimen (specimen) 01/16/2018 12:01 PM EDT 01/16/2018 12:57 PM EDT Narrative Resulting Agency Comment Spec In Lab Bruna Goodman APRN CHEMISTRY ORDERABLES [facility] [place] [address] documented in this encounter Visit Diagnoses Diagnosis (HFpEF) heart failure with preserved ejection fraction Type 2 diabetes mellitus with complication, without long-term current use of insulin documented in this encounter Care Teams Group Fitness Manager Relationship Specialty Start Date End Date Cherise Staples MD [address] [place] [address] PCP - General 07/31/10 10/04/19 documented as of this encounter
--- OUTSIDE RECORDS SUMMARY | 2024-08-20 06:22 | XMS_ITS | Encounter Summary ---
Author Organization [facility] [place] [address] Care Team Providers Care Collator Operator Name Role Phone Cherise Staples MD Primary Care Provider [phone] Reason for Visit * Reason Onset Date Comments Follow-up 02/19/2017 abnormal labs Encounter Details Date Type Department Care Team (Late st Contact Info) Description 02/19/2017 Telephone Cardiology at [address] [phone] Terri Orlando, RN Follow-up (abnormal labs) Social History Tobacco Use Types Packs/Day Years [...] encounter Miscellaneous Notes * Telephone Encounter - Terri Orlando RN - 02/19/2017 3:32 PM EDT Call placed to Fanny, Triage nurse for Dr Staples ([phone]). Given information below and 02/17/17 clinic note and current labs e-faxed ([phone]) to Dr Staples as well. * Telephone Encounter - Terri Orlando RN - 02/19/2017 3:32 PM EDT ----- Message from Slim Summers MD sent at 02/18/2017 10:11 AM EDT ----- Terri -- can you please reach out to his PCP office about two issues. 1. Fasting glucose was 129. This is in the diabetes range. He needs f/u with them to discuss. Recommend A1c at that time. 2. HCT is slightly high at 52. He needs f/u with PCP to discuss this. 1st step might be to repeat but if still abnormal may require further workup. Thanks Renato documented in this encounter Plan of Treatment Not on file documented as of this encounter Visit Diagnoses Not on filedocumented in this encounter Care Teams Collator Operator Relationship Specialty Start Date End Date Cherise Staples MD [address] [place] [address] PCP - General 07/31/10 10/04/19 documented as of this encounter
--- OUTSIDE RECORDS SUMMARY | 2024-08-20 06:22 | XMS_ITS | Encounter Summary ---
Author Organization [facility] Address [facility] [place] [address] Care Team Providers Care Final Armature Tester Name Role Phone Cherise Staples MD Primary Care Provider [phone] Encounter Details Date Type Department Care Team (Late st Contact Info) Description 07/01/2018 Notes Only Weight and Wellness at [facility] [address] [place] [phone] [place] [address] Social History Tobacco Use Types Packs/Day Years [...] on file documented as of this encounter Progress Notes * Kera Hahn MD - 07/01/2018 3:57 PM EDT [facility] 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 I asked him to have fingerstick hemoglobin a1c done. Result was 6.5 today. Had been 6.4 in 01/2018 and 6.5 in 10/2017. He is currently taking metformin 500 once daily; he had GI side effects on higher dose but is tolerating this dose will. He will increase to 500 mg twice daily and see if he tolerates it. documented in this encounter Plan of Treatment Not on file documented as of this encounter Visit Diagnoses Not on filedocumented in this encounter Care Teams Final Armature Tester Relationship Specialty Start Date End Date Cherise Staples MD [address] [place] [address] PCP - General 07/31/10 10/04/19 documented as of this encounter
--- OUTSIDE RECORDS SUMMARY | 2024-08-20 06:22 | XMS_ITS | Encounter Summary ---
Author Organization [facility] Address [facility] [place] [address] Care Team Providers Care Payroll Manager Name Role Phone Cherise Staples MD Primary Care Provider [phone] Encounter Details Date Type Department Care Team (Late st Contact Info) Description 07/03/2018 Notes Only Weight and Wellness at [facility] [address] [place] [address] [place] [address] Social History Tobacco Use Types Packs/Day Years [...] Progress Notes * Kera Hahn MD - 07/03/2018 2:05 PM EDT [facility] message sent to patient: Ravindra, Mr. Crouch, It was good to see you recently. I know that you also recently saw the dietican. She wondered if seeing a psychologist might be helpful for you in terms of working on thinking about food too much andother issues. It seems that your motivation to track and to make any changes is low. We have a psychologist who works with people on food issues. I could put you on her waiting list. Please let me know what you think. Dr. Hahn documented in this encounter Plan of Treatment Not on file documented as of this encounter Visit Diagnoses Not on filedocumented in this encounter Care Teams Payroll Manager Relationship Specialty Start Date End Date Cherise Stalpes MD [address] [place] [id number] PCP - General 07/31/10 10/04/19 documented as of this encounter
--- OUTSIDE RECORDS SUMMARY | 2024-08-20 06:22 | XMS_ITS | Encounter Summary ---
Author Organization [facility] [place] [address] Care Team Providers Care Photonics Engineering Technician Name Role Phone Cherise Staples MD Primary Care Provider Encounter Details Date Type Department Care Team (Late st Contact Info) Description 03/20/2018 12:00 PM EDT Notes Only Weight and Wellness at [address] [phone] Arrived Social History Tobacco Use Types Packs/Day Years [...] on filedocumented in this encounter Care Teams Photonics Engineering Technician Relationship Specialty Start Date End Date Cherise Staples MD [address] [place] [address] PCP - General 07/31/10 10/04/19 documented as of this encounter
--- OUTSIDE RECORDS SUMMARY | 2024-08-20 06:22 | XMS_ITS | Encounter Summary ---
Author Organization [facility] [place] [address] Care Team Providers Care Data Compiler Name Role Phone Cherise Staples MD Primary Care Provider [phone] Reason for Referral * Diagnostic Test (Routine) - Closed Specialty Diagnoses / Procedures Referred By Carla soto Referred To Contact Cardiology Diagnoses (HFpEF) heart failure with preserved ejection fraction Dilated aortic root Procedures Echocardiogram Transthoracic(Leb) Bruna Goodman APRN [facility] [place] [address] [facility] [place] [address] Referral ID Status Reason Start Date Expiration Date V isits Requested Visits Authorized [id number] Closed Specialty Service Requested 01/16/2018 01/16/2019 1 1 Reason for Visit * Reason Comments Follow-up Encounter Details Date Type Department Care Team (Late st Contact Info) Description 01/16/2018 2:00 PM EDT Office Visit Cardiology at [address] [address] Bruna Goodman APRN [facility] [place] [address] (HFpEF) heart failure with preserved ejection fraction; Type 2 diabetes mellitus with complication, without long-term current use of insulin; Dilated aortic root; Essential hypertension Social History Tobacco Use Types Packs/Day Years [...] Sign Reading Time Taken Comments Blood Pressure 152/100 01/16/2018 1:53 PM EDT Pulse 72 01/16/2018 1:53 PM EDT Temperature - - Respiratory Rate - - Oxygen Saturation 97% 01/16/2018 1:5 3 PM EDT Inhaled Oxygen Concentration - - Weight 195.6 kg (431 lb 3.2 oz) 01/16/2018 1:53 PM EDT reported from home Height 176.5 cm (5' 9.5) 01/16/2018 1: 53 PM EDT Body Mass Index 62.76 01/16/2018 1:53 PM EDT documented in this encounter Progress Notes * Bruna Goodman, INFORMATION SECURITY MANAGER - 01/16/2018 2:00 PM EDT [facility] Patient Name: Jaime Crouch Date of : 1945 Age: 72 y.o. PCP: Cherise Staples MD Chief Complaint Patient presents with ??? Follow-up Problem List: Patient Active Problem List Diagnosis Code ??? Nephrolithiasis N20.0 ??? Phimosis N47.1 ??? Hypertension I10 ??? Suspected cholecystitis vs cholangitis K81.9 ??? Atrial fibrillation I48.91 ??? TOM on CPAP G47.33, Z99.89 ??? Morbid obesity E66.01 ??? CAD I25.10 ??? Nonsustained ventricular tachycardia I47.2 ??? Cholangitis K83.0 ??? Chronic venous insufficiency I87.2 ??? Venous stasis ulcer of left lower extremity I83.029, L97.929 ??? Pulmonary embolism I26.99 ??? (HFpEF) heart failure with preserved ejection fraction I50.30 ??? Type 2 diabetes mellitus with circulatory disorder, without long-term current use of insulin E11.59 HPI: Jaime Crouch is a 72 y.o. male who presents today for a follow up visit. He was last seen by Dr. Summers approximately 1 year ago following a hospitalization for acute decompensated heart failure and an echocardiogram showing LVEF 45%. Subsequent echo update last year showed normal LVEF. In the last year he has had no interim illnesses or hospitalizations. There have been no heart failure exacerbations. He continues to lose weight slowly he is working with weight and wellness. He uses hisCPAP faithfully. There is no chest pain, orthopnea, or PND. He denies syncope or presyncope. Past Medical History: Past Medical History: Diagnosis Date ??? ASCVD (arteriosclerotic cardiovascular disease) 1993 first [place] 1992, stent to LAD in 2006 ??? Atrial fibrillation chronic anticoagulation ??? Chronic venous insufficiency ??? Chronic venous insufficiency 10/17/2015 ??? DVT (deep venous thrombosis) ??? HLD (hyperlipidemia) ??? Hypertension ??? Kidney stone ??? Nephrolithiasis hx of nephrostomy tube and posterior approach removal ??? TOM on CPAP ??? PE (pulmonary embolism) ??? Pre-diabetes 10/04/2017 Hemoglobin A1c 6.1 ??? Venous stasis ulcer of left lower extremity 10/17/2015 Review of Systems: Negative by system with exceptions as above in HPI. No Known Allergies Current Home Medications: Current Outpatient Prescriptions: ??? potassium Citrate (UROCIT) 10 mEq (1,080 mg) Tablet Sustained Release, Take by mouth 2 times daily. 2 tablets twice daily, Disp: , Rfl: ??? metFORMIN (GLUCOPHAGE) 500 mg Tablet, On tab with breakfast and two tabs with supper daily., Disp: 270 tablet, Rfl: 0 ??? furosemide (LASIX) 40 mg Tablet, Take 40 mg by mouth 2 times daily., Disp: , Rfl: ??? aspirin 81 mg Tablet, Delayed Release (E.C.), Take 1 tablet by mouth daily., Disp: 30 tablet, Rfl: 3 ??? meTOPROLOL succinate (TOPROL XL) 200 mg Tablet Sustained Release 24 hr, Take 1 tablet by mouth daily., Disp: 30 tablet, Rfl: 12 ??? allopurinol (ZYLOPRIM) 300 mg Tablet, Take 300 mg by mouth daily., Disp: , Rfl: ??? WARFARIN SODIUM (WARFARIN ORAL), Take by mouth daily. As Directed, Disp: , Rfl: ??? lisinopril (PRINIVIL;ZESTRIL) 20 mg Tablet, Take 1 tablet by mouth daily., Disp: 30 tablet, Rfl: 0 ??? atorvastatin (LIPITOR) 80 mg Tablet, Take 80 mg by mouth daily., Disp: , Rfl: ??? acetaminophen (TYLENOL) 500 mg Tablet, Take 2 tablets by mouth as needed., Disp: , Rfl: ??? nitroGLYcerin (NITROSTAT) 0.4 mg Tablet, Sublingual, Place 0.4 mg under the tongue every 5 minutes as needed for Chest pain. Reported on 02/17/2017, Disp: , Rfl: Physical Exam: Blood pressure (!) 152/100, pulse 72, height 176.5 cm (5' 9.5), weight (!) 195.6 kg (431 lb 3.2 oz), SpO2 97 %. General: Morbidly obese. Pleasant and in NAD. Not SOB at rest. Speaks in full sentences. CV: Distant heart sounds. irregularly irregular, Normal S1 and S2. 2-3/ CHONG. no S3. JVP difficult to appreciate due to large neck size. 1+ pedal edema. Chronic trophic changes below both knees. Pulmonary: Non labored breathing. Breath sounds throughout. No wheezes, rales or rhonchi Abdomen: Protuberant, soft and non-tender, no ascites. YARD INSPECTOR: Alert and oriented x3. Most recent cardiology studies: OSH TTE 01/13/2017 LVEF 45% with diffuse hypokinesis. LVH ~ 1.5 cm. Mildly dilated RV and severely reduced RV systolicfunction. Severe bi-atrial dilatations. Moderate MR TTE (02/17/17) 1. Technically limited. Optison contrast was used to enhance endocardial definition. 2. The left ventricular chamber size is normal. Moderate concentric left ventricular hypertrophy is observed. The quantitative left ventricular ejection fraction by biplane Morales's method is 62%. There are no left ventricular segmental wall motion abnormalities. E' velocities at the septum and lateral wall are normal 14 cm/s and 12 cm/s, respectively, which is not consistent with amyloidosis. Image quality was not adequate for strain imaging. 3. The right ventricle is mildly dilated. Right ventricular global systolic function is probably normal. The estimated pulmonary artery systolic pressure is 48 mmHg. 4. The left atrium is mildly dilated. The right atrium is moderately dilated. 5. There is no hemodynamically significant valve disease. 6. There is moderate dilatation of the aortic root (4.4 cm). There is mild dilatation of the ascending aorta (4.1 cm). 7. When compared with prior echo 08-30-15 the aortic root is slightly increased in size (4.4 cm from 4 cm). The IVS is slightly thicker (1.5 cm -> 1.8 cm). Otherwise there were no significant changes. 8. See remainder of report for additional findings. Assessment / Plan: 72 y.o. male with the above past medical history here in the cardiology clinic for follow up visit with the following impression and plan: # HFpEF Looks euvolemic to mildly volume up on physical exam today which I suspect is a chronic state for him. Weight is down. ProBNP stable. - Will continue current dose of lasix - Continue toprol and lisinopril - Continue to optimize BP control - Low salt diet, daily weights, self management principals - Significant LVH noted on prior echo however most recent echo felt inconsistent with amyloid # CAD PCI in proximal LAD and POBA on ostial D1 in 02/2007. No current angina and no wall motion abnormalities on last echo #HTN Suboptimal control here in the office today however he was aggravated over weight discussion. He reports reasonable blood pressures at home. # Afib - continue coumadin and BB -appropriate rate control # Dilated thoracic aorta on echo - echo report today stated increased size of aortic root but on review this was over-measured basedon Dr Summers's interpretation There is not much significant change in root or ascending aorta size. -Update echo now # History of PE - on coumadin # Obesity -[facility] at [facility] # TOM - on CPAP, using faithfully #Type II DM -hemoglobin A1c 6.5%, on metformin # HCT elevated at 52 - recommend further evaluation with primary care physician Follow-up in 1 year BRUNA GOODMAN APRN documented in this encounter Plan of Treatment Not on file documented as of this encounter Results * ECHO COMPLETE W CONTRAST (02/27/2018 12:15 PM EDT) EF 55 HEARTLAB SYSTEM Anatomical Region Laterality Modality Other 02/27/2018 Narrative 02/27/2018 1:19 PM EDT Procedure: ?Transthoracic Echocardiogram Patient: ?RAINA WILLIS ?(Age): 1945(72y) Med Rec#: ? [id number] ?Sex: ?M ? Site Loc: ? [facility] [place]Ht / Wt: ??178(cm)/196(kg) Pt. Loc: ?Echo Lab ?BSA: ?2.9 Study Date: ?? 02/27/2018 ?Pt. Type: Outpatient Tape: ? Referring: ITALO Reading: Carlos Manuel Rodriguez ([id number]) Slubber Operator: Eleonora Watt [facility] Diagnosis: *Heart failure, unspecified (I50.9) Rhythm: ? A-Fib BP: ? 148/97 HR: ? 83 SUMMARY: 1. Technically limited. 2. The left ventricular chamber size is normal. Moderate concentric left ventricular hypertrophy is observed. Basal septal hypertrophy is observed. The quantitative left ventricular ejection fraction by biplane Morales's method is 55%. The ??basal inferolateral, and ??mid inferolateral wall segments are hypokinetic (score 2). 3. Right ventricular global systolic function is probably normal. 4. The estimated pulmonary artery systolic pressure is 40 mmHg. 5. The left atrium is moderately dilated. The right atrium is moderately dilated. 6. There is no evidence of aortic valve stenosis. 7. There is mild (1+/4+) mitral regurgitation present. 8. There is mild (1+/4+) tricuspid regurgitation present. 9. The pericardium appears normal and there is no evidence of a pericardial effusion. 10. There is mild dilatation of the aortic root. There is moderate dilatation of the ascending aorta. Findings ? : Study Quality: ? Technically limited Left Ventricle: ? The left ventricular chamber size is normal. ?Moderate concentric left ventricular hypertrophy is observed. ?Basal septal hypertrophy is observed. ?There is no evidence of LVOT obstruction. ?No ventricular septal defect is visualized. ?There is normal global left ventricular systolic function. ?The quantitative left ventricular ejection fraction by biplane Morales's method is 55%. ?Left sided filling pressure could not be assessed by Doppler. ?The ??basal inferolateral, and ??mid inferolateral wall segments are hypokinetic (score 2). ?Overall wallmotion score index is ??1.13 Left Atrium: ? The left atrium is moderately dilated. 44 ml/m2 Right Ventricle: ? The right ventricle is mildly dilated. ?Right ventricular global systolic function is probably normal. ?The estimated pulmonary artery systolic pressure is 40 mmHg. ?The estimated right atrial pressure is 15 mmHg. Right Atrium: ? The right atrium is moderately dilated. Aortic Valve: ? The aortic valve is not well visualized. ?The aortic valve leaflets are mildly thickened. ?There is no evidence of aortic valve stenosis. ?There is no evidence of aortic regurgitation. Mitral Valve: ? The mitral valve appears normal in structure and function. ?There is mild (1+/4+) mitral regurgitation present. Tricuspid Valve: ? The tricuspid valve appears normal in structure and function. ?There is mild (1+/4+) tricuspid regurgitation present. Pulmonic Valve: ? The pulmonic valve is not well visualized. Pericardium: ? The pericardium appears normal and there is no evidence of a pericardial effusion. Aorta: ? There is mild dilatation of the aortic root. ?There is moderate dilatation of the ascending aorta. Pulmonary Artery: ? The main pulmonary artery is not well visualized. Venous: ? The inferior vena cava appears dilated. ?There is less than 50% respiratory change in the inferior vena cava dimension consistent with elevated right atrial pressure. Misc: ? There is no hemodynamically significant valve disease. ?See remainder of report for additional findings. ?Two-dimensional echo, spectral Doppler and color Doppler performed. ?Optison contrast (one 3 ml vial) was used to enhance endocardial definition. Excess contrast was discarded. Chambers 2D ?Value ?Units (Range) ? IVSd (2D) ? 1.6 ?cm ? LVPWd (2D) ?1.1 ?cm ? IVS:LVPW ratio (2D) 1.5 ?ratio ? RWT (2D) ?0.5 ?ratio ? RWT PW (2D) ? 0.4 ?ratio ? LVIDd (2D) ?4.9 ?cm ? LVIDs (2D) ?3.8 ?cm ? LVIDd (2D) index ?1.7 ?cm/m2 ? LVIDs (2D) index ?1.3 ?cm/m2 ? LV FS (2D) ?24 ? % ? EF Teichholz (2D) ?? 47 ? % ? Ao root diameter (2D4.1 ?cm (2.1 - 3.6) ? Ascending Ao ?4.4 ?cm (2 - 3.5) ? Aortic arch ? 4 ?cm ? Volumes/Mass ?Value ?Units (Range) ? LA Area 4 CH ?31 ? cm2 (<21) ? LA ESV BP (A/L) inde44.3 ? ml/m2 ? RA AREA 4CH ? 25 ? cm2 ? LA ESV BP (MOD) inde44 ? ml/m2 ? LV ESV SP 4CH (MOD) 110.4 ?ml ? LV ESV SP 2CH (MOD) 80.5 ? ml ? LV EDV BP ? 216.2 ?ml ? LV ESV BP ? 97.9 ? ml ? LV EDV BP index ? 74.6 ? ml/m2 ? LV ESV BP index ? 33.8 ? ml/m2 ? BP EF (MOD) ? 55 ? % ? LV mass (2D) ?270.2 ?g ? LV mass (2D) index ??93.2 ? g/m2 ? Diastolic/Systolic Function ?Value ?Units (Range) ? MV E-wave Vmax ?1.1 ?m/sec ? LV septal e' Vmax ?? 0.1 ?m/sec ? LV lateral e' Vmax ??0.1 ?m/sec ? LV average e' Vmax ??0.1 ?m/sec ? LV E:e' septal ratio10.4 ? ratio ? LV E:e' lateral rati10.4 ? ratio ? LV average E:e' rati10.4 ? ratio ? Aortic Valve ?Value ?Units (Range) ? AV Vmax ? 1.3 ?m/sec ? AV peak gradient ?6.8 ?mmHg ? LVOT Vmax ? 0.9 ?m/sec ? LVOT peak gradient ??3.1 ?mmHg ? DOI (Vmax) ?0.7 ?ratio ? Tricuspid Valve ?Value ?Units (Range) ? TAPSE ? 2.2 ?cm ? RV lateral s' Vmax ??0.1 ?m/sec ? TR Vmax ? 2.5 ?m/sec ? TR peak gradient ?25 ? mmHg ? RAP ? 15 ? mmHg ? RVSP ?40 ? mmHg ? Wall Motion: Segment Name ?Rest ? Base-Anteroseptal ?? Normal ? Base-Anterior ? Normal ? Base-Anterolateral ??Normal ? Base-Posterolateral Hypokinetic ? Base-Inferior ? Normal ? Base-Inferoseptal ?? Normal ? Mid-Anteroseptal ?Normal ? Mid-Anterior ?Normal ? Mid-Anterolateral ?? Normal ? Mid-Posterolateral ??Hypokinetic ? Mid-Inferior ?Normal ? Mid-Inferoseptal ?Normal ? [place]-Septal ? Normal ? [place]-Anterior ? Normal ? [place]-Lateral ?Normal ? [place]-Inferior ? Normal ? [place]-Tip ?Normal ? This report has been electronically signed by: Carlos Manuel Rodriguez MD ? 02/27/2018 12:33:00 Images reviewed and interpretation verified [facility] Procedure Note Carlos Manuel Rodriguez MD - 02/27/2018 Procedure: Transthoracic Echocardiogram Patient: RAINA GREENBERG(Age): 1945(72y) Med Rec#: [id number] Sex: M [place] Loc: [facility] Ht / Wt: 178(cm)/196(kg) Pt. Loc: Echo Lab BSA: 2.9 Study Date: 02/27/2018 Pt. Type: Outpatient Tape: Referring: ITALO Reading: Carlos Manuel Rodriguez ([id number]) Slubber Operator: Eleonora Watt [facility] Diagnosis: *Heart failure, unspecified (I50.9) Rhythm: A-Fib BP: 148/97 HR: 83 SUMMARY: 1. Technically limited. 2. The left ventricular chamber size is normal. Moderate concentric left ventricular hypertrophy is observed. Basal septal hypertrophy is observed. The quantitative left ventricular ejection fraction by biplane Morales's method is 55%. The basal inferolateral, and mid inferolateral wall segments are hypokinetic (score 2). 3. Right ventricular global systolic function is probably normal. 4. The estimated pulmonary artery systolic pressure is 40 mmHg. 5. The left atrium is moderately dilated. The right atrium is moderately dilated. 6. There is no evidence of aortic valve stenosis. 7. There is mild (1+/4+) mitral regurgitation present. 8. There is mild (1+/4+) tricuspid regurgitation present. 9. The pericardium appears normal and there is no evidence of a pericardial effusion. 10. There is mild dilatation of the aortic root. There is moderate dilatation of the ascending aorta. Findings : Study Quality: Technically limited Left Ventricle: The left ventricular chamber size is normal. Moderate concentric left ventricular hypertrophy is observed. Basal septal hypertrophy is observed. There is no evidence of LVOT obstruction. No ventricular septal defect is visualized. There is normal global left ventricular systolic function. The quantitative left ventricular ejection fraction by biplane Morales's method is 55%. Left sided filling pressure could not be assessed by Doppler. The basal inferolateral, and mid inferolateral wall segments are hypokinetic (score 2). Overall wallmotion score index is 1.13 Left Atrium: The left atrium is moderately dilated. 44 ml/m2 Right Ventricle: The right ventricle is mildly dilated. Right ventricular global systolic function is probably normal. The estimated pulmonary artery systolic pressure is 40 mmHg. The estimated right atrial pressure is 15 mmHg. Right Atrium: The right atrium is moderately dilated. Aortic Valve: The aortic valve is not well visualized. The aortic valve leaflets are mildly thickened. There is no evidence of aortic valve stenosis. There is no evidence of aortic regurgitation. Mitral Valve: The mitral valve appears normal in structure and function. There is mild (1+/4+) mitral regurgitation present. Tricuspid Valve: The tricuspid valve appears normal in structure and function. There is mild (1+/4+) tricuspid regurgitation present. Pulmonic Valve: The pulmonic valve is not well visualized. Pericardium: The pericardium appears normal and there is no evidence of a pericardial effusion. Aorta: There is mild dilatation of the aortic root. There is moderate dilatation of the ascending aorta. Pulmonary Artery: The main pulmonary artery is not well visualized. Venous: The inferior vena cava appears dilated. There is less than 50% respiratory change in the inferior vena cava dimension consistent with elevated right atrial pressure. Misc: There is no hemodynamically significant valve disease. See remainder of report for additional findings. Two-dimensional echo, spectral Doppler and color Doppler performed. Optison contrast (one 3 ml vial) was used to enhance endocardial definition. Excess contrast was discarded. Chambers 2D Value Units (Range) IVSd (2D) 1.6 cm LVPWd (2D) 1.1 cm IVS:LVPW ratio (2D) 1.5 ratio RWT (2D) 0.5 ratio RWT PW (2D) 0.4 ratio LVIDd (2D) 4.9 cm LVIDs (2D) 3.8 cm LVIDd (2D) index 1.7 cm/m2 LVIDs (2D) index 1.3 cm/m2 LV FS (2D) 24 % EF Teichholz (2D) 47 % Ao root diameter (2D4.1 cm (2.1 - 3.6) Ascending Ao 4.4 cm (2 - 3.5) Aortic arch 4 cm Volumes/Mass Value Units (Range) LA Area 4 CH 31 cm2 (<21) LA ESV BP (A/L) inde44.3 ml/m2 RA AREA 4CH 25 cm2 LA ESV BP (MOD) inde44 ml/m2 LV ESV SP 4CH (MOD) 110.4 ml LV ESV SP 2CH (MOD) 80.5 ml LV EDV BP 216.2 ml LV ESV BP 97.9 ml LV EDV BP index 74.6 ml/m2 LV ESV BP index 33.8 ml/m2 BP EF (MOD) 55 % LV mass (2D) 270.2 g LV mass (2D) index 93.2 g/m2 Diastolic/Systolic Function Value Units (Range) MV E-wave Vmax 1.1 m/sec LV septal e' Vmax 0.1 m/sec LV lateral e' Vmax 0.1 m/sec LV average e' Vmax 0.1 m/sec LV E:e' septal ratio10.4 ratio LV E:e' lateral rati10.4 ratio LV average E:e' rati10.4 ratio Aortic Valve Value Units (Range) AV Vmax 1.3 m/sec AV peak gradient 6.8 mmHg LVOT Vmax 0.9 m/sec LVOT peak gradient 3.1 mmHg DOI (Vmax) 0.7 ratio Tricuspid Valve Value Units (Range) TAPSE 2.2 cm RV lateral s' Vmax 0.1 m/sec TR Vmax 2.5 m/sec TR peak gradient 25 mmHg RAP 15 mmHg RVSP 40 mmHg Wall Motion: Segment Name Rest Base-Anteroseptal Normal Base-Anterior Normal Base-Anterolateral Normal Base-Posterolateral Hypokinetic Base-Inferior Normal Base-Inferoseptal Normal Mid-Anteroseptal Normal Mid-Anterior Normal Mid-Anterolateral Normal Mid-Posterolateral Hypokinetic Mid-Inferior Normal Mid-Inferoseptal Normal [place]-Septal Normal [place]-Anterior Normal [place]-Lateral Normal [place]-Inferior Normal [place]-Tip Normal This report has been electronically signed by: Carlos Manuel Rodriguez MD 02/27/2018 12:33:00 Images reviewed and interpretation verified [facility] Bruna Goodman APRN ECHO ORDERABLES * (ABNORMAL) Hemoglobin A1c (01/16/2018 12:01 PM EDT) Hemoglobin A1c 6.4(H) 4.3 - 5.6 % [facility] Comment: Reference Range: 4.3 - [...] Mellitus, Diabetes Care 2013; 36: Suppl. 1, S67-74 Estimated Average Glucose See note mg/dL [facility] Comment: Estimated Average Glucose not [...] into estimated average glucose values. ??Diabetes Care 2008:31(8):7605-5391. Blood specimen (specimen) 01/16/2018 12:01 PM EDT 01/16/2018 12:56 PM EDT Narrative Resulting Agency Comment Spec In Lab Bruna Goodman APRN CHEMISTRY ORDERABLES Performing Organization Address [facility] Co de Phone Number [facility] [place] [address] * (ABNORMAL) pro-Brain Natriuretic Peptide (01/16/2018 12:01 PM EDT) NT-proBNP 422(H) <=125 pg/mL [facility] Blood specimen (specimen) 01/16/2018 12:01 PM EDT 01/16/2018 12:57 PM EDT Narrative Resulting Agency Comment Spec In Lab Bruna Goodman INFORMATION SECURITY MANAGER CHEMISTRY ORDERABLES Performing Organization Address [facility] Co de Phone Number [facility] [place] [address] * (ABNORMAL) Basic Metabolic Panel (non-fasting) (01/16/2018 12:01 PM EDT) Glucose 122 65 - 199 mg/dL [facility] Comment:Diabetes: >=200 mg/d L plus symptoms Blood Urea Nitrogen 28(H) 10 - 20 mg/dL [facility] Creatinine 0.94 0.80 - 1.50 mg/dL [facility] Sodium 142 135 - 145 mmol/L [facility] Potassium 4.3 3.5 - 5.0 mmol/L [facility] Comment: Please note: ??Patients with WBC >100,000 may have falsely elevated Potassium levels. ??For accurate Potassium quantification in these patients send serum separator tube (gold top) for subsequent determinations. ??Contact the Clinical Chemistry Laboratory if there are any questions. Chloride 104 98 - 107 mmol/L [facility] Carbon Dioxide 22 22 - 31 mmol/L [facility] Anion Gap 16(H) 5 - 15 mmol/L [facility] Calcium 9.4 8.5 - 10.5 mg/dL [facility] Est Glomerular Filtration Rate >60 >=60 [facility] Comment: The reported eGFR should be multiplied by 1.2 for patients. The MDRD is not an appropriate measure of renal function for patients with body mass extremes or in patients with acute kidney failure. http://Pigit.Uni[employer].ru/DHnkdep http://[employer]/DHMCnkf Blood specimen (specimen) 01/16/2018 12:01 PM EDT 01/16/2018 12:57 PM EDT Narrative Resulting Agency Comment Spec In Lab Bruna Goodman APRN CHEMISTRY ORDERABLES [facility] [place] [address] documented in this encounter Visit Diagnoses Diagnosis (HFpEF) heart failure with preserved ejection fraction Type 2 diabetes mellitus with complication, without long-term current use of insulin Dilated aortic root Thoracic aortic ectasia Essential hypertension Unspecified essential hypertension (HFpEF) heart failure with preserved ejection fraction Dilated aortic root Thoracic aortic ectasia documented in this encounter Care Teams Data Compiler Relationship Specialty Start Date End Date Cherise Staples MD [address] [place] [address] PCP - General 07/31/10 10/04/19 documented as of this encounter
--- OUTSIDE RECORDS SUMMARY | 2024-08-20 06:22 | XMS_ITS | Encounter Summary ---
Author Organization [facility] Address [facility] [place] [address] Care Team Providers Care Rn Orthopaedics Name Role Phone Cherise Staples MD Primary Care Provider [phone] Reason for Visit * Reason Comments Weight Management Follow-up Encounter Details Date Type Department Care Team (Late st Contact Info) Description 03/16/2018 11:30 AM EDT Office Visit Weight and Wellness at [address] [phone] Kera Hahn MD [facility] [place] [address] Class 3 severe obesity due to excess calories with serious comorbidity and body mass index (BMI) of 60.0 to 69.9 in adult (Primary Dx); Type 2 diabetes mellitus with other circulatory [...] Sign Reading Time Taken Comments Blood Pressure 122/62 03/16/2018 11:45 AM EDT Pulse 85 03/16/2018 11:24 AM EDT Temperature - - Respiratory Rate 20 03/16/2018 11:2 4 AM EDT Oxygen Saturation 98% 03/16/2018 11: 24 AM EDT Inhaled Oxygen Concentration - - Weight 195.8 kg (431 lb 11.2 oz) 2017 11:24 AM EDT Height 177.8 cm (5' 10) 03/16/2018 11: 24 AM EDT Body Mass Index 61.94 03/16/2018 11:24 AM EDT documented in this encounter Patient Instructions * Patient Instructions* Kera Hahn MD - 03/16/2018 11:30 AM EDT Let 's try the metformin XR and see if you can tolerate this. Let me know if you tolerate it, would consider increasing the with dose. Metformin XR sustained release Other med I discussed is Contrave (bupropion plus naltrexone). Talk to your PCP about the elevated hemoglobin (red blood cell count). See me in about 3 months, see Karrie the first day. documented in this encounter Progress Notes * Kera Hahn MD - 03/16/2018 11:30 AM EDT [facility] Visit Patient Name: Jaime Crouch Date of : 1945 Age: [address] Cherise Staples MD / No ref. provider found Thank you for referring Jaime Crouch to the [facility] for consultation regarding obesity. Lab Results Component Value Date CHOLHDL 3.8 10/09/2017 Lab Results Component Value Date HA1C 6.4 (H) 01/16/2018 Lab Results Component Value Date GLUCFASTING 130 (H) 10/09/2017 Lab Results Component Value Date AST 25 10/09/2017 ALT 32 10/09/2017 CHIEF COMPLAINT: Follow-up for Obesity INTERVAL HISTORY / PROGRESS TOWARD GOALS: [x] I reviewed past / interim records including notes and labs. First visit with me was on 10/02/2017. Weight was 435. He was started on metformin. 2nd visit: 11/03/2017: 433 lbs. Plan was to increase metformin to 1000 mg twice daily (pt did not dobecause of GI side effects). We also discussed trying liraglutide but he declined (did not want another med, especially injectable). 3rd visit was 12/15: 431 lbs. Was on metformin 500 twice daily and plan was to try to increase to 1500 mg per day (he did not due because of side effects). He has been doing the Healthy Lifestyles program. Today he reports: Doing Ok. I have only lost a couple of pounds. My eating habits have improved a lot . He says he is doing less eating between meals. I am not really exercising enough Back and knees hurt, and bad heart and I am 72 years old. Does not want to go to a pool. Not interesting in pool therapy. At says at age 52 he used to swim a mile. It is an hour each way to get here. Doing a little walking. Diet: Average day: Breakfast: today : about a cup of oatmeal with soy sauce and olive oil. Sometime fruit. Lunch: leftover meat with cottage cheese. Sometimes sandwich and fruit. Dinner: Trying to have meat and vegetables. Last night has 4 new potatoes, sauted yemeni chard sauted in oil and garlic, 6 small beets. And had some cheese and crackers before dinner. Has mostly cut out etoh. Trying to reduce the frequency of eating stir beckman with rice. Bought lentil pasta, it has not arrived yet. Metformin: taking 1 or 2 per day. When took 3 per day got significant diarrhea. Has not missed any HLP classes. Has enjoyed them. Now in the nutrition section. Had overnight oximetry and his CPAP pressure was changed. Of note, his hematocrit is elevated which was noted by Bruna Goodman at recheck CHF clinic Visit. PCP follow up recommended. [facility] Followup Responses 10/02/2017 URICA - Readiness Score 11.66 WEL-SF Total Scores 36 PROMIS 6B Scores 30.4 PHQ-2 SubScore 2 (Brief screen negative) GAD2 Subscore 1 (Brief screen negative) PROMIS 10 Physical Scores 39.8 PROMIS 10 Mental Scores 43.5 Days absent from work/school because of weight Not applicable REVIEW OF SYSTEMS: see above HPI for additional pertinent +/- findings No other new concerns. VITAL SIGNS: Blood pressure 122/62, pulse 85, resp. rate 20, height 177.8 cm (5' 10), weight (!) 195.8 kg (431 lb 11.2 oz), SpO2 98 %. (bp done on arm with thigh cuff). Vitals: 03/16/18 1124 BP: 152/78 Pulse: 85 Resp: 20 SpO2: 98% Weight: (!) 195.8 kg (431 lb 11.2 oz) Height: 177.8 cm (5' 10) Body mass index is 61.94 kg/(m^2). Last 5 weight values: Wt Readings from Last 5 Encounters: 03/16/18 (!) 195.8 kg (431 lb 11.2 oz) 01/16/18 (!) 195.6 kg (431 lb 3.2 oz) 12/15/17 (!) 195.7 kg (431 lb 6.4 oz) 11/03/17 (!) 196.5 kg (433 lb 3.2 oz) 10/09/17 (!) 196.7 kg (433 lb 9.6 oz) PHYSICAL EXAM: Gen: Alert and active, NAD. + central adiposity. Psych: NL affect today Not otherwise examined. SUMMARY OF VISIT AND RECOMMENDATIONS: Jaime Crouch was seen in follow up today and an updated medical, diet and activity review was completed. Additional goals were set for changes in health habits (see below) as was a plan for evaluation and treatment of obesity related co-morbidities. Medical issues and plan: Class 3 very severe Obesity: ?? Medical Management: The patient is currently participating in the Healthy Lifestyles Program (HLP) at the [facility]. ?? He has had no significant weight loss (only 4 lbs). Altho he has made some diet changes, but overall calories must be too high and he says likely portions are too big. He has difficulty with exercise but could still increase his overall activity. ?? In terms of meds, again discussed adding liraglutide which can help with weight loss. He does not want to add this med ?? . Discussed trying the extended release form of metformin to see if better tolerated and he agrees to this. Discussed other meds which can help with weight loss. I think that it would be reasonable to try the ingredients of Contrave (bupropion and naltrexone). For now he does not want to add another medication but he says he will read about these meds and consider. I did discuss risks and benefits and possible side effects of bupropion and naltrexone. ?? Asked him to follow up with PCP about elevated Hematocrit which can be a risk factor for vascular event. F/u in: 3 months Patient Instructions Let 's try the metformin XR and see if you can tolerate this. Let me know if you tolerate it, wouldconsider increasing the dose. Metformin XR sustained release Other med I discussed which we could try is Contrave (bupropion plus naltrexone). Talk to your PCP about the elevated hemoglobin (red blood cell count). See me in about 3 months, see Karrie the same day. I spent a total of 20 minutes with the patient 15 minutes of which were spent in [id number] discussion/counseling re obesity, nutrition and activity as well as obesity related co-morbidities documented in this encounter Plan of Treatment Not on file documented as of this encounter Visit Diagnoses Diagnosis Class 3 severe obesity due to excess calories with serious comorbidity and body mass index (BMI) of 60.0 to 69.9 in adult- Primary Type 2 diabetes mellitus with other circulatory complication, without long-term current use of insulin documented in this encounter Care Teams Rn Orthopaedics Relationship Specialty Start Date End Date Cherise Staples MD [address] [place] [id number] PCP - General 07/31/10 10/04/19 documented as of this encounter
--- OUTSIDE RECORDS SUMMARY | 2024-08-20 06:22 | XMS_ITS | Encounter Summary ---
Author Organization [facility] Address [facility] [place] [address] Care Team Providers Care Carbonation Tester Name Role Phone Cherise Staples MD Primary Care Provider [phone] Encounter Details Date Type Department Care Team (Late st Contact Info) Description 02/24/2019 2:40 PM EDT Office Visit Cardiology at [address] [phone] Bruna Goodman, LEATHER PRODUCTION MACHINE OPERATOR [facility] [place] [address] Chronic heart failure with preserved ejection fraction; Thoracic aortic aneurysm without rupture; Essential hypertension; Chronic atrial fibrillation Social History Tobacco Use Types Packs/Day Years [...] Sign Reading Time Taken Comments Blood Pressure 110/78 02/24/2019 2:33 PM EDT Pulse 96 02/24/2019 2:33 PM EDT Temperature - - Respiratory Rate - - Oxygen Saturation 94% 02/24/2019 2:3 3 PM EDT Inhaled Oxygen Concentration - - Weight 190.5 kg (420 lb) 02/24/2019 2:3 3 PM EDT stated declined wgt Height 177.8 cm (5' 10) 02/24/2019 2:3 3 PM EDT Body Mass Index 60.26 02/24/2019 2:33 PM EDT documented in this encounter Progress Notes * VanitaMarianaBruna Wolfe, LEATHER PRODUCTION MACHINE OPERATOR - 02/24/2019 2:40 PM EDT [facility] [place] [facility] Patient Name: Jaime Crouch Date of : 1945 Age: 73 y.o. PCP: Cherise Staples MD Problem List: Patient Active Problem List Diagnosis [...] 60.0 to 69.9 in adult E66.01, Z68.44 HPI: Jaime Crouch is a 73 y.o. male who presents today for an annual follow up visit. He was last seen approximately 1 year ago. He established care with our HF clinic following hospitalization for acute decompensated heart failure 01/2017 and an echocardiogram showing LVEF 45%. Subsequent echo update later in 2016 showed normal LVEF. In the last year he has had no interim illnesses or hospitalizations. There have been no heart failure exacerbations. He completed his sessions with the weight and wellness center and did not lose any weight. He felt that they offered him nothing new. He had a fall over the winter when he tripped on a throw rug in a store. He hurt his back for a brief period of time though feels as though this has completely recovered. He is not terribly active due to limitations from his weight. He uses there is no chest pain, orthopnea, or PND. He denies syncope or presyncope. He uses CPAP faithfully. He reports bilateral tense lower extremity edema with some stasis dermatitis and weeping in his legs. He has been tending to these at home. Wound care referral was offered and he declined. Past Medical History: Past Medical History: Diagnosis Date ??? ASCVD (arteriosclerotic cardiovascular disease) 1993 first AK 1992, stent to LAD in 2006 ??? [...] Known Allergies Current Home Medications: Current Outpatient Medications: ??? warfarin (COUMADIN) 5 mg Tablet, take 1 tablet by mouth once daily, Disp: , Rfl: 0 ??? potassium Citrate (UROCIT) 10 mEq (1,080 mg) Tablet Sustained Release, Take by mouth 2 times daily. 2 tablets twice daily, Disp: , Rfl: ??? acetaminophen (TYLENOL) 500 mg Tablet, Take 2 tablets by mouth as needed., Disp: , Rfl: ??? furosemide (LASIX) 40 mg Tablet, Take [...] by mouth daily., Disp: , Rfl: ??? lisinopril (PRINIVIL;ZESTRIL) 20 mg Tablet, Take 1 tablet by mouth daily., Disp: 30 tablet, Rfl: 0 ??? atorvastatin (LIPITOR) 80 mg Tablet, Take 80 mg by mouth daily., Disp: , Rfl: ??? nitroGLYcerin (NITROSTAT) 0.4 mg Tablet, Sublingual, Place 0.4 mg under the tongue every 5 minutes as needed for Chest pain. Reported on 02/17/2017, Disp: , Rfl: Physical Exam: Blood pressure 110/78, pulse 96, height 177.8 cm (5' 10), weight (!) 190.5 kg (420 lb), SpO2 94 %. Body mass index is 60.26 kg/m??. General: Morbidly obese. Pleasant and in NAD. No SOB at rest. Speaks in full sentences. CV: Distant heart sounds. irregularly irregular, Normal S1 and S2. 2-3/ CHONG. no S3. JVP difficult to appreciate due to large neck size. 1+tense LE edema bilaterally with compression socks in place. Pulmonary: Non labored breathing. Breath sounds throughout. No wheezes, rales or rhonchi Abdomen: Protuberant, soft and non-tender, no ascites. RN DELIVERY: Alert and oriented x3. Most recent cardiology [...] report for additional findings. Assessment / Plan: 73 y.o. male with the above past medical history here in the cardiology clinic for follow up visit with the following impression and plan: # HFpEF Looks euvolemic to mildly volume up on physical exam today which I suspect is a chronic state for him. Weight stable and proBNP is stable # CAD PCI in proximal LAD and POBA on ostial D1 in 02/2007. 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 # Obesity -No success with W WC # TOM - on CPAP, using faithfully #Type II DM -hemoglobin A1c 6.5%, on metformin Follow-up in 1 year with echo BRUNA GOODMAN APRN documented in this encounter Plan of Treatment Not on file documented as of this encounter Results * (ABNORMAL) pro-Brain Natriuretic Peptide (02/24/2019 1:43 PM EDT) NT-proBNP 333(H) <=125 pg/mL [facility] Blood specimen (specimen) 02/24/2019 1:43 PM EDT 02/24/2019 1:50 PM EDT Narrative Resulting Agency Comment Spec In Lab Bruna Goodman APRN CHEMISTRY ORDERABLES [facility] [place] [address] * (ABNORMAL) Basic Metabolic Panel (non-fasting) (02/24/2019 1:43 PM EDT) Glucose 185 65 - 199 mg/dL [facility] Comment:Diabetes: >=200 mg/d L plus symptoms Blood Urea Nitrogen 20 10 - 20 mg/dL [facility] Creatinine 0.96 0.80 - 1.50 mg/dL [facility] Sodium 138 135 - 145 mmol/L [facility] Potassium 4.6 3.5 - 5.0 mmol/L [facility] Comment: Please note: ??Patients with WBC >100,000 may have falsely elevated Potassium levels. ??For accurate Potassium quantification in these patients send serum separator tube (gold top) for subsequent determinations. ??Contact the Clinical Chemistry Laboratory if there are any questions. Chloride 104 98 - 107 mmol/L [facility] Carbon Dioxide 21(L) 22 - 31 mmol/L [facility] Anion Gap 13 5 - 15 mmol/L [facility] Calcium 9.5 8.5 - 10.5 mg/dL [facility] Est Glomerular Filtration Rate 79 >=60 mL/min/1. 73 m?? [facility] Comment: The eGFR was calculated using the CKD-EPI equation. As with all creatinine based estimates of kidney function, eGFR values calculated with the CKD-EPI equation are not accurate in patients with acute kidney failure, extremes of body mass or the acutely ill. [email or web address] [place] eGFR 92 >=60 mL/min/1. 73 m?? [facility] Comment: The eGFR was calculated using the CKD-EPI equation. As with all creatinine based estimates of kidney function, eGFR values calculated with the CKD-EPI equation are not accurate in patients with acute kidney failure, extremes of body mass or the acutely ill. [email or web address] Blood specimen (specimen) 02/24/2019 1:43 PM EDT 02/24/2019 1:50 PM EDT Narrative Resulting Agency Comment Spec In Lab Bruna Goodman LEATHER PRODUCTION MACHINE OPERATOR CHEMISTRY ORDERABLES [facility] [place] [address] documented in this encounter Visit Diagnoses Diagnosis Chronic heart failure with preserved ejection fraction Thoracic aortic aneurysm without rupture Thoracic aneurysm without mention of rupture Essential hypertension Unspecified essential hypertension Chronic atrial fibrillation Atrial fibrillation documented in this encounter Care Teams Carbonation Tester Relationship Specialty Start Date End Date Cherise Staples MD [address] [place] [id number] PCP - General 07/31/10 10/04/19 documented as of this encounter
--- OUTSIDE RECORDS SUMMARY | 2024-08-20 06:22 | XMS_ITS | Encounter Summary ---
Author Organization [facility] [place] [address] Care Team Providers Care Insurance Underwriting Assistant Name Role Phone Cherise Staples MD Primary Care Provider [phone] Reason for Visit * Diagnostic Test (Routine) - Closed Specialty Diagnoses / Procedures Referred By Contalberto t Referred To Contact Radiology Diagnoses Chronic systolic heart failure SOB (shortness of breath) Coronary artery disease involving gakona heart, angina presence unspecified, unspecified vessel or lesion type Procedures NM Myocardial Perfusion Scan Pharmacologic Carito Cabrera MD [facility] [place] [address] [place] [address] Referral ID Status Reason Start Date Expiration Date V isits Requested Visits Authorized [id number] Closed Specialty Service Requested 01/21/2017 01/21/2018 4 4 Encounter Details Date Type Department Care Team (Latest Contact Info) Description 02/17/2017 8:43 AM EDT - 02/17/2017 10:07 AM EDT Hospital En[place] [address] Slim Summers MD [facility] [place] [address] Discharge Disposition: Home Social History Tobacco Use [...] Sig Dispensed Refills Start Date End Date aspirin 81 mg Tablet, Delayed Release (E.C.) [...] needed for Chest pain. Reported on 02/17/2017 acetaminophen (TYLENOL) 500 mg Tablet Take 2 tablets by mouth every 6 hours. 30 tablet 1 09/02/2015 11/03/2017 WARFARIN SODIUM (WARFARIN ORAL) Take by mouth daily. As Directed 06/15/2018 documented as of this encounter Plan of Treatment Not on file documented as of this encounter Procedures Procedure Name Priority Date/Time Associated Diagnosis Comments NM PHARMACOLOGIC STRESS AND REST MYOCARDIAL PERFUSION Routine 02/17/2017 10:16 AM EDT Chronic systolic heart failure SOB (shortness of breath) Coronary artery disease involving gakona heart, angina presence unspecified, unspecified vessel or lesion type documented in this encounter Results * NM Myocardial Perfusion Scan Pharmacologic (02/17/2017 10:16 AM EDT) Anatomical Region Laterality Modality Nuclear Medicine Impressions 02/17/2017 11:08 AM EDT Unable to perform examination as patient did not fit into scanner. Narrative 02/17/2017 11:08 AM EDT EXAMINATION: NM MYOCARDIAL PERFUSION SCAN PHARMACOLOGIC CLINICAL HISTORY: LVEF drompped to 45% from 55%, had PCI 10 years ago. TECHNIQUE: During rest, 9.4 mCi of technetium-99m sestamibi was administered intravenously. Patient did not fit into scanner. Procedure Note Sloan Martinez MD - 02/17/2017 EXAMINATION: NM MYOCARDIAL PERFUSION SCAN PHARMACOLOGIC CLINICAL HISTORY: LVEF drompped to 45% from 55%, had PCI 10 years ago. TECHNIQUE: During rest, 9.4 mCi of technetium-99m sestamibi wasadministered intravenously. Patient did not fit into scanner. IMPRESSION Unable to perform examination as patient did not fit into scanner. Slim Summers MD IMG NM ORDERABLES documented in this encounter Visit Diagnoses Not on filedocumented in this encounter Care Teams Insurance Underwriting Assistant Relationship Specialty Start Date End Date Cherise Staples MD [address] [place] [id number] PCP - General 07/31/10 10/04/19 documented as of this encounter
--- OUTSIDE RECORDS SUMMARY | 2024-08-20 06:22 | XMS_ITS | Encounter Summary ---
Author Organization [facility] [place] [address] Care Team Providers Care Sealer Aircraft Name Role Phone Cherise Staples MD Primary Care Provider [phone] Encounter Details Date Type Department Care Team (Late st Contact Info) Description 12/26/2017 12:00 PM EDT Notes Only Weight and Wellness at [address] [phone] Arrived Social History Tobacco Use Types Packs/Day [...] on filedocumented in this encounter Care Teams Sealer Aircraft Relationship Specialty Start Date End Date Cherise Staples MD [address] [place] [address] PCP - General 07/31/10 10/04/19 documented as of this encounter
--- OUTSIDE RECORDS SUMMARY | 2024-08-20 06:22 | XMS_ITS | Encounter Summary ---
Author Organization [facility] Address [facility] [place] [address] Care Team Providers Care Power Operator Name Role Phone Cherise Staples MD Primary Care Provider Reason for Visit * Reason Comments Follow-up Encounter Details Date Type Department Care Team (Late st Contact Info) Description 02/17/2017 2:40 PM EDT Office Visit Cardiology at [address] [phone] Slim Summers MD [facility] [address] (HFpEF) heart failure with preserved ejection fraction; SOB (shortness of breath); Coronary artery disease involving [place] heart, angina presence unspecified, unspecified vessel or lesion type; Persistent atrial fibrillation Social History Tobacco Use Types [...] Sign Reading Time Taken Comments Blood Pressure 130/98 02/17/2017 11:56 AM EDT Pulse 73 02/17/2017 11:56 AM EDT Temperature - - Respiratory Rate - - Oxygen Saturation 95% 02/17/2017 11: 56 AM EDT room air Inhaled Oxygen Concentration - - Weight 190.5 kg (420 lb) 02/17/2017 11: 56 AM EDT PT Reported PT refused to step on scale Height 177.8 cm (5' 10) 02/17/2017 11: 56 AM EDT Body Mass Index 60.26 02/17/2017 11:56 AM EDT documented in this encounter Progress Notes * Slim Summers MD - 02/17/2017 2:40 PM EDT [facility] Failure [facility] Patient Name: Jaime Crouch Date of : 1945 Age: 71 y.o. PCP: Cherise Staples MD Presenting Diagnosis/Chief Complaint/ Reason for cardiology referral: heart failure management. Here for f/u visit today with echo and nuclear stress. Problem List: Patient Active Problem List Diagnosis Code ??? Nephrolithiasis N20.0 ??? Phimosis N47.1 ??? Hypertension I10 ??? Suspected cholecystitis vs cholangitis K81.9 ??? Atrial fibrillation I48.91 ??? TOM on CPAP G47.33, Z99.89 ??? Morbid obesity E66.01 ??? Hypertension (HTN) I10 ??? CAD I25.10 ??? Nonsustained ventricular tachycardia I47.2 ??? Cholangitis K83.0 ??? Chronic venous insufficiency I87.2 ??? Venous stasis ulcer of left lower extremity I83.029 ??? Pulmonary embolism I26.99 ??? (HFpEF) heart failure with preserved ejection fraction I50.30 HPI: Jaime Crouch is a 71 y.o. male who presents today for a follow up visit. In January, he became progressively SOB and was taken to [facility] where he was found to be in CHF requiring diuresis. An echo reportedly showed Ef 45% (global hypokinesis). Noted that his LVEF was normal in 2014. He was diuresed and discharged on a higher dose of lasix. He was seen as a new patient in the HF clinic on 01/21/17. His metoprolol was increased and changed from short acting to long acting formulation. His diltiazem was discontinued. His aspirin was reduced from 325 to 81mg daily. The plan was to bring him back for a follow up visit linked with echo and nuclear stress test. He returns today for follow up. Unfortunately, due to obesity, he could not fit in the scanner to perform the nuclear stress test. He did have his echo this morning showing moderate LVH and Ef of 62%without wall motion abnormalities, normal RV function, and RVSP estimated at 48 mmHg. He reports his symptoms are stable on the current dose of lasix. He has limited physical activity level at baseline due to weight and knee pain. No SOB at rest. Does get DELGADO. No orthopnea. Stable chronic LE edema. He denies chest pain at rest or with exertion. No palpitations or syncope. Past Medical History: Past Medical History: Diagnosis Date ??? ASCVD (arteriosclerotic cardiovascular disease) 1993 first AR 1992, stent to LAD in 2006 ??? Atrial fibrillation chronic anticoagulation ??? Chronic venous insufficiency ??? Chronic venous insufficiency 10/17/2015 ??? DVT (deep venous thrombosis) ??? HLD (hyperlipidemia) ??? Hypertension ??? Kidney stone ??? Nephrolithiasis hx of nephrostomy tube and posterior approach removal ??? TOM on CPAP ??? PE (pulmonary embolism) ??? Venous stasis ulcer of left lower extremity 10/17/2015 Review of Systems: Negative by system with exceptions as above in HPI. No Known Allergies Current Home Medications: Current Outpatient Prescriptions: ??? furosemide (LASIX) 40 mg Tablet, Take 40 mg by mouth 2 times daily., Disp: , Rfl: ??? potassium chloride (K-DUR/KLOR-CON) 10 mEq Tablet Sustained Release, Take 20 mEq by mouth 2 times daily., Disp: , Rfl: ??? aspirin 81 mg Tablet, Delayed Release (E.C.), Take 1 tablet by mouth daily., Disp: 30 tablet, Rfl: 3 ??? meTOPROLOL succinate (TOPROL XL) 200 mg Tablet Sustained Release 24 hr, Take 1 tablet by mouth daily., Disp: 30 tablet, Rfl: 12 ??? acetaminophen (TYLENOL) 500 mg Tablet, Take 2 tablets by mouth every 6 hours. (Patient taking differently: Take 1,000 mg by mouth as needed.), Disp: 30 tablet, Rfl: 1 ??? allopurinol (ZYLOPRIM) 300 mg Tablet, Take [...] on 02/17/2017, Disp: , Rfl: Physical Exam: Vitals Office Visit from 02/17/2017 in Cardiology Weight - Scale (!) 190.5 kg (420 lb) [PT Reported PT refused to step on scale] Height 177.8 cm (5' 10) BSA (Calculated - sq m) 3.07 sq meters BMI (Calculated) 60.4 Heart Rate 73 BP (!) 130/98 SpO2 95 % [room air] General: Morbidly obese. Pleasant and in NAD. [...] Abdomen: Protuberant, soft and non-tender, no ascites. SENIOR SAS PROGRAMMER: Alert and oriented x3. Most recent cardiology studies: OSH TTE 01/13/2017 LVEF 45% with diffuse hypokinesis. LVH ~ 1.5 cm. Mildly dilated RV and severely reduced RV systolicfunction. Severe bi-atrial dilatations. Moderate MR JEAN CARLOS from today (02/17/17) 1. Technically limited. Optison contrast was [...] report for additional findings. Assessment / Plan: 71 y.o. male with the above past medical history here in the cardiology clinic for follow up visit with the following impression and plan: # HFpEF He had a normal EF in 2014. Recent admission for ADHF at an outside hospital requiring diuresis andincrease in home lasix dose. Reportedly, Ef was 45% at that time at the outside hospital. However, today, echo shows normal EF at 62% without any wall motion abnormalities. This transient drop in EF at the outside hospital may have been spurious (if they didn't use contrast it may have been difficult to evaluate LVEF on this patient). A transient drop in Ef due to tachymyopathy from Afib is also possible. His symptoms appear stable on current dose of lasix. He is 4 lbs down from last visit. Hispro BNP is mildly positive at 271 (may be falsely low due to obesity). - Will continue current dose of lasix - Continue toprol and lisinopril - Continue to optimize BP control - Low salt diet, daily weights, self management principals - Significant LVH noted on echo. We requested strain to eval for possible cardiac amyloid but they were unable to get reliable strain. The echo report did note that the e' values were high and thus not likely consistent with a restrictive process. It is also worth noting, that on review of images, there is definitely an asymmetric component to the LVH with the septal > posterior wall. In some views (particuarly contrast views) this looks to be mostly the upper septum which can be seen in older patients -- but we should keep HCM on the differential and continue to review echo's closely going forward. # CAD Hospitalized for unstable angina, and had PCI in proximal LAD and POBA on ostial D1 in 02/2007. We had requested a nuclear scan for today because of the reported drop in EF at the OSH. Unfortunately he was unable to fit in scanner so test from this morning was cancelled. Now that we have echo back today showing normal Ef without wall motion abnormalities and given he is without angina -- we can hold off on stress test for now. If he has angina or a drop in Ef and we want an ischemic evaluati on going forward, would need to do dobutamine echo. Continue ASA 81, statin, and BB. 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 There is not much significant change in root or ascending aorta size. - repeat echo in 1 year # History of PE - on coumadin # Obesity - weight loss recommended # TOM - on CPAP # Elevated fasting glucose - fasting glucose 129 today. This is in the diabetic range. Request he discuss with PCP and get a1cand further evaluation # HCT elevated at 52 - recommend further evaluation with primary care physician SLIM SUMMERS MD documented in this encounter Plan of Treatment Scheduled Orders Name Type Priority Associated Diagnoses Orde r Schedule pro-Brain Natriuretic Peptide Lab STAT (HFpEF) heart failure with preserved ejection fraction SOB (shortness of breath) Expected: 02/17/2017 (Approximate), Expires: 02/14/2018 documented as of this encounter Visit Diagnoses Diagnosis (HFpEF) heart failure with preserved ejection fraction SOB (shortness of breath) Shortness of breath Coronary artery disease involving [place] heart, angina presence unspecified, unspecified vessel or lesion type Persistent atrial fibrillation Atrial fibrillation documented in this encounter Care Teams Power Operator Relationship Specialty Start Date End Date Cherise Staples MD [address] [place] [address] PCP - General 07/31/10 10/04/19 documented as of this encounter
--- OUTSIDE RECORDS SUMMARY | 2024-08-20 06:22 | XMS_ITS | Encounter Summary ---
Author Organization [facility] Address [facility] [place] [address] Care Team Providers Care Medical Legal Investigator Name Role Phone Cherise Staples MD Primary Care Provider [phone] Reason for Visit * Reason Comments Weight Management Follow-up 6 month Encounter Details Date Type Department Care Team (Late st Contact Info) Description 06/15/2018 2:30 PM EDT Office Visit Weight and Wellness at [address] [phone] Kera Hahn MD [facility] [place] [address] Type 2 diabetes mellitus with other circulatory complication, without long-term current use of insulin; Class 3 severe obesity with serious comorbidity and body mass index (BMI) of 60.0 to 69.9 in adult, unspecified obesity type Social History Tobacco Use Types Packs/Day Years [...] Sign Reading Time Taken Comments Blood Pressure 128/78 06/15/2018 3:01 PM EDT Pulse 78 06/15/2018 2:37 PM EDT Temperature - - Respiratory Rate 18 06/15/2018 2:37 PM EDT Oxygen Saturation 97% 06/15/2018 2:37 PM EDT Inhaled Oxygen Concentration - - Weight 195.3 kg (430 lb 8 oz) 06/15/2018 2:37 PM EDT Height 177.8 cm (5' 10) 06/15/2018 2:37 PM EDT Body Mass Index 61.77 06/15/2018 2:37 PM EDT documented in this encounter Patient Instructions * Patient Instructions* Kera Hahn MD - 06/15/2018 2:30 PM EDT Work on portions. Try metformin one tab after supper to see if you can tolerate. Fingerstick Hemoglobin A1c at next visit with Karrie . Try to increase activity: walking. Can also Use resistance bands. See me 3 months. documented in this encounter Progress Notes * Kera Hahn MD - 06/15/2018 2:30 PM EDT [facility] Visit Patient Name: Jaime Crouch Date of : 1945 Age: [address] Cherise Staples MD / No ref. provider found Thank you for referring Jaime Crouch to the [facility] for consultation regarding obesity. PREVIOUS LABS: Lab Results Component Value Date CHLPL 130 10/09/2017 Lab Results Component Value Date HDL 34 (L) 10/09/2017 Lab Results Component Value Date LDLCHOL 63 10/09/2017 Lab Results Component Value Date TRIG 167 10/09/2017 Lab Results Component Value Date CHOLHDL 3.8 10/09/2017 Lab Results Component Value Date HA1C 6.4 (H) 01/16/2018 Lab Results Component Value Date GLUCFASTING 130 (H) 10/09/2017 Lab Results Component Value Date AST 25 10/09/2017 ALT 32 10/09/2017 CHIEF COMPLAINT: Follow-up for Obesity INTERVAL HISTORY / PROGRESS TOWARD GOALS: [x] I reviewed past / interim records including notes and labs. This is a follow up visit for this 72 year old man who is doing the Healthy Lifestyles program. He is unaccompanied. He has multiple medical issues. First visit with me was on 10/02/2017. Weight was 435 lbs. He was started on metformin. 2nd visit: 11/03/2017: 433 lbs. Plan was to increase metformin to 1000 mg twice daily (pt did not dobecause of GI side effects). We also discussed trying liraglutide but he declined (did not want another med, especially injectable). ?? 3rd visit was 12/15: 431 lbs. Was on metformin 500 twice daily and plan was to try to increase to 1500 mg per day (he did not due because of side effects). 4th visit was on 03/16/2018: I changed him to extended release metformin to see if better tolerated. Discussed liraglutide and Contrave, he did not want to add a medication. Asked him to follow up withhis PCP about his very elevated hemoglobin. Today he reports: At home has lost 12 lbs on his scale at home altho here has only lost 5 lbs since September. Had a UTI last week, got cipro and improved. Mood: OK Using his CPAP. Trying to get enough sleep. Not taking any metformin due to past GI intolerance. Changes: nutrition: No between meal snacking. I have decreased my portion size but not nearly enough. Maybe I shouldbe eating less beef. Has cut down on bread. Has cut down on potatoes and rice portions. Activity: I still need to work on that. Not doing much walking. i have been trying to get up more, I sit a lot. Tracking: Did for a while, not for the last month. Showed winder operator what he had been tracking at last visit. 24 hr diet recall: Breakfast: Sausage cee, poached eggs, coffee black. Lunch: Salad with cheese and some meat, cottage cheese. before dinner: cheese and crackers. Dinner: chicken, roasted, no gravy, baked potato with a little butter, string beans, another veg. Pumpkin pie with whipped cream. Almost entirely eliminated alcohol. [facility] Initial Responses 06/15/2018 URICA - Readiness Score 7.33 (Pre-contemplation State) WEL-SF Total Scores 36 PROMIS 6B Scores 27.5 PHQ-2 SubScore 2 (Brief screen negative) GAD2 Subscore 1 (Brief screen negative) PROMIS 10 Physical Scores 37.4 PROMIS 10 Mental Scores 45.8 IPAQ-SF Scores 3 Total REAP-S Scores 35 TFEQ - Uncontrolled Eating (UE) 66.66 TFEQ-Cognitive Restraint (CR) 44.33 TFEQ-Emotional Eating 33.33 Food Insecurity Score 2 Importance of making a change - Confidence to make change - Barriers to being physically active - Hours/day on screen time - Most weighed - Age most weighed - Times lost 10 lbs or more - Most weight lost in one attempt - Lost weight how? - Factors for gaining/unable to lose weight - Wearing tracking devices helped improve health - Worried food would run out before we got money to buy more Never true Food didnt last; no money to get more Never true REVIEW OF SYSTEMS: see above HPI for additional pertinent +/- findings No other new complaints. VITAL SIGNS: Vitals: 06/15/18 1437 BP: 151/77 Pulse: 78 Resp: 18 SpO2: 97% Weight: (!) 195.3 kg (430 lb 8 oz) Height: 177.8 cm (5' 10) BP repeated by me: BP 128/78 (BP Cuff Sizes: Thigh (40-55 cm)) Comment (BP Cuff Sizes): thigh cuff on arm Body mass index is 61.77 kg/(m^2). Last 5 weight values: Wt Readings from Last 5 Encounters: 06/15/18 (!) 195.3 kg (430 lb 8 oz) 04/10/18 (!) 193.2 kg (426 lb) 03/16/18 (!) 195.8 kg (431 lb 11.2 oz) 01/16/18 (!) 195.6 kg (431 lb 3.2 oz) 12/15/17 (!) 195.7 kg (431 lb 6.4 oz) PHYSICAL EXAM: Gen: Alert and appropriate, NAD. + Marked central adiposity. + DELGADO with walking to exam room, not new. Psych: NL affect today SUMMARY OF VISIT AND RECOMMENDATIONS: Jaime Crouch was seen in follow up today and an updated medical, diet and activity review was completed. Medical issues and plan: ?? Class 3 very severe Obesity: with type 2 DM and multiple medical problems: ?? Medical Management: The patient is currently participating in the Healthy Lifestyles Program (HLP) at the [facility]. He has lost only 5 lbs (from 435 to 430) on our scale since September. ?? He has had trouble tolerating metformin and has stopped it. Today discussed trying to see if he can tolerate just one tab daily (500 mg) and he will try this. ?? He has made some diet changes but portions are still too big and he continues to make choices that he knows are not good for him (cheese and crackers, pumpkin pie with whipped cream). Plan: re-try metformin one tab daily after supper, see if tolerated. Discussed additional options including liraglutide and contrave. He does not want to try another medication. Do hemoglobin A1c fingerstick when here with next visit with Karrie on 07/01. Did not discuss today whether he has followed up with PCP about elevated hemoglobin. Sent [email or web address] message. TOM: ?? Cont CPAP as prescribed Labs/Tests ordered today: F/u in: 3 months Patient Instructions Work on portions. Try metformin one tab after supper to see if you can tolerate. Fingerstick Hemoglobin A1c at next visit with Karrie . Try to increase activity: walking. Can also Use resistance bands. See me 3 months. I spent a total of 20 minutes with the patient 15 minutes of which were spent in ckze-po-rety discussion/counseling re obesity, nutrition and activity as well as obesity related co-morbidities documented in this encounter Plan of Treatment Scheduled Orders Name Type Priority Associated Diagnoses Orde r Schedule POCT glycated hemoglobin, total (HA1C) Point of Care Testing Routine Type 2 diabetes mellitus with other circulatory complication, without long-term current use of insulin Ordered: 06/21/2018 documented as of this encounter Visit Diagnoses Diagnosis Type 2 diabetes mellitus with other circulatory complication, without long-term current use of insulin Class 3 severe obesity with serious comorbidity and body mass index (BMI) of 60.0 to 69.9 in adult, unspecified obesity type documented in this encounter Care Teams Medical Legal Investigator Relationship Specialty Start Date End Date Cherise Staples MD [address] [place] [address] PCP - General 07/31/10 10/04/19 documented as of this encounter
--- OUTSIDE RECORDS SUMMARY | 2024-08-20 06:22 | XMS_ITS | Encounter Summary ---
Author Organization [facility] [place] [address] Care Team Providers Care Piggyback Clerk Name Role Phone Nick Nettles MD Primary Care Provider [phone] Encounter Details Date Type Department Care Team (Late st Contact Info) Description 10/26/2020 Orders [place] [address] Nanette Cross APRN [facility] [place] [address] Ulcer of lower extremity, unspecified laterality, unspecified ulcer stage Social History Tobacco Use Types Packs/Day Years [...] as of this encounter Visit Diagnoses Diagnosis Ulcer of lower extremity, unspecified laterality, unspecified ulcer stage documented in this encounter Care Teams Piggyback Clerk Relationship Specialty Start Date End Date Nick Netltes MD [address] [place] [address] PCP - General Internal Medicine 10/05/19 documented as of this encounter
--- OUTSIDE RECORDS SUMMARY | 2024-08-20 06:22 | XMS_ITS | Encounter Summary ---
Author Organization [facility] [place] [address] Care Team Providers Care Non Destructive Tester Name Role Phone Cherise Staples MD Primary Care Provider [phone] Encounter Details Date Type Department Care Team (Late st Contact Info) Description 02/27/2018 12:00 PM EDT Notes Only Weight and Wellness at [address] [phone] Arrived Social History Tobacco Use Types Packs/Day [...] on filedocumented in this encounter Care Teams Non Destructive Tester Relationship Specialty Start Date End Date Cherise Staples MD [address] [place] [address] PCP - General 07/31/10 10/04/19 documented as of this encounter
--- OUTSIDE RECORDS SUMMARY | 2024-08-20 06:22 | XMS_ITS | Encounter Summary ---
Author Organization [facility] Address [facility] [place] [address] Care Team Providers Care Frog Farmer Name Role Phone Cherise Staples MD Primary Care Provider [phone] Encounter Details Date Type Department Care Team (Latest Contact Info) Description 02/17/2017 10:08 AM EDT - 02/17/2017 11:59 PM EDT Hospital Encounter Non-[place] [phone] Slim Summers MD [facility] [place] [address] Chronic systolic heart failure; SOB (shortness of breath); Coronary artery disease involving [place] heart, angina presence unspecified, unspecified vessel or lesion type Discharge Disposition: Home Social History Tobacco [...] Sig Dispensed Refills Start Date End Date furosemide (LASIX) 40 mg Tablet Take 20 [...] needed for Chest pain. Reported on 02/17/2017 potassium chloride (K-DUR/KLOR-CON) 10 mEq Tablet Sustained Release Take 20 mEq by mouth 2 times daily. 01/16/2018 acetaminophen (TYLENOL) 500 mg Tablet Take 2 tablets by mouth every 6 hours. 30 tablet 1 09/02/2015 11/03/2017 WARFARIN SODIUM (WARFARIN ORAL) Take by mouth daily. As Directed 06/15/2018 documented as of this encounter Plan of Treatment Scheduled Orders Name Type Priority Associated Diagnoses Order Schedule Nuclear Pharmacologic Stress Cardiology Cardiac Services Routine Chronic systolic heart failure SOB (shortness of breath) Coronary artery disease involving [place] heart, angina presence unspecified, unspecified vessel or lesion type 1 Occurrences starting 02/17/2017 until 02/17/2017 documented as of this encounter Visit Diagnoses Diagnosis Chronic systolic heart failure SOB (shortness of breath) Shortness of breath Coronary artery disease involving [place] heart, angina presence unspecified, unspecified vessel or lesion type documented in this encounter Care Teams Frog Farmer Relationship Specialty Start Date End Date Cherise Staples MD [address] [place] [address] PCP - General 07/31/10 10/04/19 documented as of this encounter
--- OUTSIDE RECORDS SUMMARY | 2024-08-20 06:22 | XMS_ITS | Encounter Summary ---
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); Persistent atrial fibrillation; Morbid obesity Social History Tobacco Use Types [...] Sign Reading Time Taken Comments Blood Pressure 136/76 11/03/2017 1:01 PM EST Pulse 88 11/03/2017 11:00 AM EST Temperature - - Respiratory Rate - - Oxygen Saturation 97% 11/03/2017 11: 00 AM EST Inhaled Oxygen Concentration - - Weight 196.5 kg (433 lb 3.2 oz) 018 11:00 AM EST Height 177.8 cm (5' 10) 11/03/2017 11: 00 AM EST Body Mass Index 62.16 11/03/2017 11:00 AM EST documented in this encounter Patient Instructions * Patient Instructions* Kera Hahn MD - 11/03/2017 12:00 PM EST Increase metformin to 1000 mg twice daily if you Can. Do the sleep study. Work on portion size. Try to increase activity. documented in this encounter Progress Notes * Kera Hahn MD - 11/03/2017 12:00 PM EST [facility] Visit Patient Name: Jaime Crouch Date of : 1945 Age: 72 y.o. Cherise Staples MD Thank you for referring Jaime Crouch to the [facility] for consultation regarding obesity. PREVIOUS LABS: Lab Results Component Value Date CHLPL 130 10/09/2017 Lab Results Component Value Date HDL 34 (L) 10/09/2017 Lab Results Component Value Date LDLCHOL 63 10/09/2017 Lab Results Component Value Date TRIG 167 10/09/2017 Lab Results Component Value Date CHOLHDL 3.8 10/09/2017 Lab Results Component Value Date HA1C 6.5 (H) 10/09/2017 Lab Results Component Value Date GLUCFASTING 130 (H) 10/09/2017 Lab Results Component Value Date AST 25 10/09/2017 ALT 32 10/09/2017 CHIEF COMPLAINT: Follow-up for Obesity INTERVAL HISTORY / PROGRESS TOWARD GOALS: [x] I reviewed past / interim records including notes and labs. This is a follow up visit for this 72 year old man who was first seen in the Weight and Wellness clinic by me on 10/02/2017. Since then he has met with the team and is going to participate in the year long Healthy LifestylesProgram. I started him on metformin. He had many questions today about whether he had diabetes, why is he on the metformin, etc. Also wondered if he needs to check his blood sugar. He does now make the diagnosis of diabetes with A1c of 6.5 and fasting glucose of 130. Discussed This with him. He does not need to check his blood sugar at home. He did start the metformin and is taking 500 mg twice daily. Feeling OK, He thinks the metformin gives him a little nausea but it is mild. No diarrhea. Says he lost about a pound at home scale (2 lbs on our scale). Changes he has made: Has cut out between meal snacking except occ some fruit. Usual breakfast: Homemade sausage cee, 4 1/2 oz, 3 poached eggs, And black coffee. Then fruit in the AM. Lunch: leftovers. Likes corn tortillas, might have 4 with hummus. Evening meal: often stir beckman with rice. Or grass fed beef or pork.. Working on portion size; knows that portions of rice and other things are too big. He like to cook boneless skinless chicken breasts sous vide. Activity: says his driveway is a sheet of ice and he has not been doing any regular activity. TOM: He did not schedule the follow up sleep study which he is supposed to do in [facility] Followup Responses 10/02/2017 URICA - Readiness Score 11.66 WEL-SF Total Scores 36 PROMIS 6B Scores 30.4 PHQ-2 SubScore 2 (Brief screen negative) GAD2 Subscore 1 (Brief screen negative) PROMIS 10 Physical Scores 39.8 PROMIS 10 Mental Scores 43.5 Days absent from work/school because of weight Not applicable REVIEW OF SYSTEMS: see above HPI for additional pertinent +/- findings + mild nausea , no other new concerns. VITAL SIGNS: bp initially high when done by health assistant coach. Lower when repeated by me. Blood pressure 136/76, pulse 88, height 177.8 cm (5' 10), weight (!) 196.5 kg (433 lb 3.2 oz), SpO2 97 %. Vitals: 11/03/17 1100 BP: (!) 152/100 Pulse: 88 SpO2: 97% Weight: (!) 196.5 kg (433 lb 3.2 oz) Height: 177.8 cm (5' 10) Body mass index is 62.16 kg/(m^2). Last 5 weight values: Wt Readings from Last 5 Encounters: 11/03/17 (!) 196.5 kg (433 lb 3.2 oz) 10/09/17 (!) 196.7 kg (433 lb 9.6 oz) 10/02/17 (!) 197.3 kg (435 lb) 02/17/17 (!) 190.5 kg (420 lb) 01/21/17 (!) 192.3 kg (424 lb) PHYSICAL EXAM: Gen: Alert and active, NAD. ++ central adiposity. CV: Cor: irreg irreg, distant heart sounds. No mgr. Resp: CTAB, no wheezes/crackles Psych: NL affect today. Mood good. SUMMARY OF VISIT AND RECOMMENDATIONS: Jaime Crouch was seen in follow up today and an updated medical, diet and activity review was completed. Additional goals were set for changes in health habits (see below) as was a plan for evaluation and treatment of obesity related co-morbidities. Medical issues and plan: Class 3 Very severe Obesity: ?? Medical Management: [facility] ?? I also started him on metformin at last visit (see below). ?? Goal setting: Work on portion size. Increase activity. Type II DM: discussed new dx of diabetes. Will try to increase metformin to 1000 mg twice daily if he can tolerate it to keep sugars under control and to help with weight loss. Could consider liraglutide in the future which can help to promote weight loss. Hyperlipidemia: ?? Continue statin TOM: ?? Encouraged him to follow thru with recommendation for another sleep study and he says he will dothis in [place] Labs/Tests ordered today: none F/u in: 1 month. I told him that if he is doing well and tolerating the full dose of metformin well, he can touch base with me via myDH and cancel the appointment (since he lives quite far and will be coming in frequently for HLP) Patient Instructions Increase metformin to 1000 mg twice daily if you Can. Do the sleep study. Work on portion size. Try to increase activity. I spent a total of 30 minutes with the patient 20 minutes of which were spent in [id number] discussion/counseling re: diabetes, obesity, nutrition and activity as well as obesity related co-morbidities documented in this encounter Plan of Treatment Not on file documented as of this encounter Visit Diagnoses Diagnosis Type 2 diabetes mellitus with other circulatory complication, without long-term current use of insulin- Primary Persistent atrial fibrillation Atrial fibrillation Morbid obesity documented in this encounter Care Teams Cut Plug Packer Relationship Specialty Start Date End Date Cherise Staples MD [address] [place] [address] PCP - General 07/31/10 10/04/19 documented as of this encounter
--- OUTSIDE RECORDS SUMMARY | 2024-08-20 06:22 | XMS_ITS | Encounter Summary ---
[facility] Organization [facility] [place] [address] Care Team Providers Care Recoverer Name Role Phone Nick Nettles MD Primary Care Provider Encounter Details Date Type Department Care Team (Late st Contact Info) Description 06/06/2020 Orders Only Cardiology at [address] [phone] Bruna Goodman APRN [facility] [place] [address] Thoracic aortic aneurysm without rupture; Chronic heart failure with preserved ejection fraction Social History Tobacco Use Types Packs/Day Years [...] as of this encounter Visit Diagnoses Diagnosis Thoracic aortic aneurysm without rupture Thoracic aneurysm without mention of rupture Chronic heart failure with preserved ejection fraction documented in this encounter Care Teams Recoverer Relationship Specialty Start Date End Date Nick Nettles MD [address] [place] [address] PCP - General Internal Medicine 10/05/19 documented as of this encounter
--- OUTSIDE RECORDS SUMMARY | 2024-08-20 06:22 | XMS_ITS | Encounter Summary ---
Author Organization [facility] [place] [address] Care Team Providers Care Umbrella Frame Maker Name Role Phone Cherise Staples MD Primary Care Provider [phone] Encounter Details Date Type Department Care Team (Late st Contact Info) Description 01/09/2018 12:00 PM EDT Notes Only Weight and Wellness at [address] [phone] Arrived Social History Tobacco Use Types Packs/Day [...] on filedocumented in this encounter Care Teams Umbrella Frame Maker Relationship Specialty Start Date End Date Cherise Staples MD [address] [place] [address] PCP - General 07/31/10 10/04/19 documented as of this encounter
--- OUTSIDE RECORDS SUMMARY | 2024-08-20 06:22 | XMS_ITS | Encounter Summary ---
Author Organization [facility] [place] [address] Care Team Providers Care Municipal Services Manager Name Role Phone Cherise Staples MD Primary Care Provider [phone] Encounter Details Date Type Department Care Team (Late st Contact Info) Description 05/15/2018 12:00 PM EDT Notes Only Weight and Wellness at [address] [phone] Arrived Social History Tobacco Use Types Packs/Day [...] on filedocumented in this encounter Care Teams Municipal Services Manager Relationship Specialty Start Date End Date Cherise Staples MD [address] [place] [address] PCP - General 07/31/10 10/04/19 documented as of this encounter
--- OUTSIDE RECORDS SUMMARY | 2024-08-20 06:22 | XMS_ITS | Encounter Summary ---
Author Organization [facility] Address [facility] [place] [address] Care Team Providers Care Configuration Engineer Name Role Phone Cherise Staples MD Primary Care Provider [phone] Encounter Details Date Type Department Care Team (Latest Contact Info) Description 10/09/2017 1:00 PM EST Laboratory Appointment Lab at [address] [phone] Coronary artery disease involving [place] heart, angina presence unspecified, unspecified vessel or lesion type; Abnormal weight gain ; Class 3 obesity due to excess calories with serious comorbidity and body mass index (BMI) of 60.0 to 69.9 in adult; Pre-diabetes Social History Tobacco Use Types Packs/Day Years [...] Progress Notes * Kera Hahn MD - 10/13/2017 11:43 AM EST Hi, Mr. Crouch, It was a pleasure to meet you recently at the Weight and Wellness clinic. Your labs showed that your hemoglobin A1c (this test looks at average blood sugar over a few months) was elevated at 6.5 which is in the diabetic range. Your fasting blood sugar was also in the diabetic range at 130. I hope that you are tolerating the metformin and have been able to increase the dose. Please let me know how it is going with the medication. Your other labs (liver tests, thyroid level ) looked OK. Your cholesterol looks fine except for a low level of HDL or good cholesterol. Sometimes exercisecan help to raise this so I would encourage you to exercise as much as possible. Please send me a message and let me know how you are doing. I know that you have an appointment with me at the end of the month. Best wishes, Dr. Hahn documented in this encounter Plan of Treatment Not on file documented as of this encounter Procedures Procedure Name Priority Date/Time Associated Diagnosis Comments BIOREPOSITORY REQUEST Routine 10/09/2017 1:18 PM EST Class 3 obesity due to excess calories with serious comorbidity and body mass index (BMI) of 60.0 to 69.9 in adult CMP W/FASTING GLUCOSE Routine 10/09/2017 1:18 PM EST Coronary artery disease involving [place] heart, angina presence unspecified, unspecified vessel or lesion type TSH Routine 10/09/2017 1:18 PM EST Abnormal weight gain Class 3 obesity due to excess calories with serious comorbidity and body mass index (BMI) of 60.0 to 69.9 in adult Coronary artery disease involving [place] heart, angina presence unspecified, unspecified vessel or lesion type HEMOGLOBIN A1C Routine 10/09/2017 1:18 PM EST Coronary artery disease involving [place] heart, angina presence unspecified, unspecified vessel or lesion type Pre-diabetes LIPID PANEL (REFLEX DIRECT LDL) Routine 10/09/2017 1:18 PM EST Coronary artery disease involving [place] heart, angina presence unspecified, unspecified vessel or lesion type BIOREPOSITORY REQUEST Routine 10/09/2017 6:30 AM EST Class 3 obesity due to excess calories with serious comorbidity and body mass index (BMI) of 60.0 to 69.9 in adult documented in this encounter Results * Biorepository Request (10/09/2017 1:18 PM EST) Pathologist [facility] Biorepository Hold Sample in lab [facility] Blood specimen (specimen) 10/09/2017 1:18 PM EST 10/10/2017 2:23 PM EST Narrative Resulting Agency Comment Spec In Lab Kera Hahn MD MOLECULAR ORDERABLES [facility] [place] [address] * (ABNORMAL) Hemoglobin A1c (10/09/2017 1:18 PM EST) [facility] Hemoglobin A1c 6.5(H) 4.3 - 5.6 % [facility] Comment: Reference Range: 4.3 - 5.6% 5.7 - 6.4% - Increased Risk of Developing Diabetes Mellitus >=6.5% - Consistent with diagnosis of Diabetes Mellitus In the absence of hyperglycemia (i.e. plasma glucose > 200 mg/dL) or classic symptoms of hyperglycemia a repeat measurement of HbA1c should be performed on a separate sample to confirm the diagnosis. Diagnosis and Classification of Diabetes Mellitus, Diabetes Care 2013; 36: Suppl. 1, I17-74 Estimated Average Glucose See note mg/dL [facility] Comment: Estimated Average Glucose not [...] into estimated average glucose values. ??Diabetes Care 2008:31(8):0913-6137. Blood specimen (specimen) 10/09/2017 1:18 PM EST 10/09/2017 3:19 PM EST Narrative Resulting Agency Comment Spec In Lab Kera Hahn MD CHEMISTRY ORDERABLES Performing Organization Address [facility] Co de Phone Number [facility] [place] [address] * TSH (10/09/2017 1:18 PM EST) Thyroid Stimulating Hormone 1.77 0.27 - 4.20 mlU/ML [facility] Blood specimen (specimen) 10/09/2017 1:18 PM EST 10/09/2017 3:19 PM EST Narrative Resulting Agency Comment Spec In Lab Kera Hahn MD CHEMISTRY ORDERABLES Performing Organization Address [facility] de Phone Number [facility] [place] [address] * (ABNORMAL) CMP w/fasting Glucose (10/09/2017 1:18 PM EST) Glucose Fasting 130(H) 65 - 99 mg/dL [facility] Comment: ?Fasting* Glucose Interpretive Criteria Normal ?65-99 mg/dL Impaired Fasting glucose ?100-125 mg/dL Consistent with Diabetes Mellitus ? >or= 126 mg/dL *Fasting is defined as no caloric intake for at least 8 hours In the absence of unequivocal hyperglycemia a plasma glucose value of >or= 126 mg/dL should be repeated on a subsequent day. Diagnosis and Classification of Diabetes Mellitus, Position Statement from the [place] [employer]. ??Diabetes Care, Volume 33, Supplement 1, Sep 2009 Blood Urea Nitrogen 18 10 - 20 mg/dL [facility] Creatinine 0.92 0.80 - 1.50 mg/dL [facility] Sodium 142 135 - 145 mmol/L [facility] Potassium 4.4 3.5 - 5.0 mmol/L [facility] Comment: Please note: ??Patients with WBC >100,000 may have falsely elevated Potassium levels. ??For accurate Potassium quantification in these patients send serum separator tube (gold top) for subsequent determinations. ??Contact the Clinical Chemistry Laboratory if there are any questions. Chloride 103 98 - 107 mmol/L [facility] Carbon Dioxide 24 22 - 31 mmol/L [facility] Anion Gap 15 5 - 15 mmol/L [facility] Calcium 9.8 8.5 - 10.5 mg/dL [facility] Protein, Total 7.6 6.1 - 8.0 gm/dL [facility] Albumin 3.7 3.2 - 5.2 gm/dL [facility] Aspartate Aminotransferase 25 0 - 39 unit/L [facility] Alanine Aminotransferase 32 0 - 55 unit/L [facility] Alkaline Phosphatase 115 40 - 120 unit/L [facility] Bilirubin, Total 0.7 0.2 - 1.3 mg/dL [facility] Est Glomerular Filtration Rate >60 >=60 [facility] Comment: The reported eGFR should be multiplied by 1.2 for patients. The MDRD is not an appropriate measure of renal function for patients with body mass extremes or in patients with acute kidney failure. http://[employer].TicketLeap/DHnkdep http://[employer]icketLeap/DHMCnkf Blood specimen (specimen) 10/09/2017 1:18 PM EST 10/09/2017 3:19 PM EST Narrative Resulting Agency Comment Spec In Lab Kera Hahn MD CHEMISTRY ORDERABLES Performing Organization Address [facility] Co de Phone Number [facility] [place] [address] * (ABNORMAL) Lipid Panel (10/09/2017 1:18 PM EST) Cholesterol, Total 130 <=239 mg/dL [facility] Triglyceride 167 <=199 mg/dL [facility] HDL Cholesterol 34(L) >=40 mg/dL [facility] LDL Cholesterol 63 <=190 mg/dL [facility] Cholesterol/HDL Ratio 3.8 ratio [facility] Lipid Interpretation See Note [facility] Comment: Lipid management should be guided by a patient? s ASCVD risk, goals and preferences. ACC/AHA Guidelines recommend high intensity statin if clinical ASCVD or LDL greater than or equal to 190 mg/dL. http://[employer].com/SIE-DIL-Frrhjrbpw Adults aged 40-75 with LDL 70-189 mg/dL should have their 10 year ASCVD risk estimated with the ACC/AHA ASCVD risk director communications http://tools.acc.org/RDRTW-Cfeq-Zaynpflun/ Statin should be discussed if risk greater than or equal to 7.5% in non-diabetics. With diabetes, moderate intensity statin is recommended if risk less than 7.5%, high intensity if risk greater than or equal to 7.5%. Annual lipid monitoring on statins is not necessary. Evaluate secondary causes of Triglycerides greater than 500 mg/dL or LDL greater than 190 mg/dL: See table 6 of ACC/AHA Guideline. Lifestyle modification is a critical component of ASCVD risk reduction. Blood specimen (specimen) 10/09/2017 1:18 PM EST 10/09/2017 3:19 PM EST Narrative Resulting Agency Comment Spec In Lab Kera Hahn MD CHEMISTRY ORDERABLES Performing Organization Address [facility]/ZIP Co de Phone Number [facility] [place] [address] * Biorepository Request (10/09/2017 6:30 AM EST) Biorepository Hold Sample in lab [facility] Stool specimen (specimen) 10/09/2017 6:30 AM EST 10/10/2017 2:38 PM EST Narrative Resulting Agency Comment Spec In Lab Kera Hahn MD MOLECULAR ORDERABLES [facility] [place] [address] documented in this encounter Visit Diagnoses Diagnosis Coronary artery disease involving [place] heart, angina presence unspecified, unspecified vessel or lesion type Abnormal weight gain Abnormal weight gain Class 3 obesity due to excess calories with serious comorbidity and body mass index (BMI) of 60.0 to 69.9 in adult Pre-diabetes Other abnormal glucose documented in this encounter Care Teams Configuration Engineer Relationship Specialty Start Date End Date Cherise Staples MD [address] [place] [id number] PCP - General 07/31/10 10/04/19 documented as of this encounter
--- OUTSIDE RECORDS SUMMARY | 2024-08-20 06:22 | XMS_ITS | Encounter Summary ---
Author Organization [facility] [place] [address] Care Team Providers Care Glass Processing Worker Name Role Phone Cherise Staples MD Primary Care Provider [phone] Reason for Visit * Diagnostic Test (Routine) - Closed Specialty Diagnoses / Procedures Referred By Contalberto t Referred To Contact Radiology Diagnoses Chronic systolic heart failure SOB (shortness of breath) Coronary artery disease involving [place] heart, angina presence unspecified, unspecified vessel or lesion type Procedures NM Myocardial Perfusion Scan Pharmacologic Carito Cabrera MD [facility] [place] [address] [place] [address] Referral ID Status Reason Start Date Expiration Date V isits Requested Visits Authorized [id number] Closed Specialty Service Requested 01/21/2017 01/21/2018 4 4 Encounter Details Date Type Department Care Team (Latest Contact Info) Description 02/17/2017 8:42 AM EDT Hospital Encounter [place] [address] Slim Summers MD [facility] [place] [address] Discharge Disposition: Home Social History [...] (shortness of breath) Coronary artery disease involving [place] heart, angina presence unspecified, unspecified vessel or [...] on filedocumented in this encounter Care Teams Glass Processing Worker Relationship Specialty Start Date End Date Cherise Staples MD [address] [place] [address] PCP - General 07/31/10 10/04/19 documented as of this encounter
--- OUTSIDE RECORDS SUMMARY | 2024-08-20 06:22 | XMS_ITS | Encounter Summary ---
[place] [address] Care Team Providers Care Mix Maker Name Role Phone Cherise Staples MD Primary Care Provider [phone] Encounter Details Date Type Department Care Team (Latest Contact Info) Description 02/17/2017 1:30 PM EDT Laboratory Appointment Cardiology at [address] [phone] Chronic systolic heart failure; SOB (shortness of breath); Heart failure, unspecified Social History Tobacco Use Types Packs/Day Years [...] Priority Date/Time Associated Diagnosis Comments HEMOGRAM STAT 02/17/2017 10:42 AM EDT Chronic systolic heart failure DIFFERENTIAL, AUTOMATED STAT 02/17/2017 10:42 AM EDT Chronic systolic heart failure CBC (WITH DIFF) STAT 02/17/2017 10:42 AM EDT Chronic systolic heart failure PRO-BRAIN NATRIURETIC PEPTIDE STAT 02/17/2017 10:42 AM EDT Chronic systolic heart failure SOB (shortness of breath) COMPREHENSIVE METABOLIC PANEL STAT 02/17/2017 10:42 AM EDT Chronic systolic heart failure documented in this encounter Results * (ABNORMAL) Differential, Automated (02/17/2017 10:42 AM EDT) Neutrophil % 71.4 % [facility] Neutrophil Absolute 6.31(H) 1.70 - 6.10 x10(3)/mc L [facility] Lymph % 18.1 % [facility] Lymphocytes Abs 1.6 0.9 - 3.2 x10(3)/mc L [facility] Monocyte % 7.8 % [facility] Monocyte Abs 0.7 0.3 - 0.9 x10(3)/mc L [facility] Eos % 1.2 % [facility] Eosinophils Abs 0.1 0.0 - 0.4 x10(3)/mc L [facility] Basophil % 1.0 % [facility] Baso Absolute 0.1 0.0 - 0.1 x10(3)/mc L [facility] Immature Gran % 0.50 % [facility] Comment: Immature granulocytes(IG's)percentage and absolute count will include metamyelocytes, myelocytes, and promyelocytes. Blood smears from CBCs yielding IG's will be scanned manually for concordance. If this scan disagrees with the automated IG or if promyelocytes are noted, a manual differential will be performed. Immature Gran Absolute 0.04 0.00 - 0.04 x10(3)/mc L [facility] Blood specimen (specimen) 02/17/2017 10:42 AM EDT 02/17/2017 10:53 AM EDT Narrative Resulting Agency Comment Spec In Lab Slim Summers MD HEMATOLOGY ORDERA BLES [facility] [place] [id number] * (ABNORMAL) Hemogram (02/17/2017 10:42 AM EDT) Pathologist [facility] White Blood Cell 8.8 4.0 - 9.5 x10(3)/ L [facility] Red Blood Cell 5.73(H) 4.58 - 5.54 x10(6)/ L [facility] Hemoglobin 17.6(H) 13.7 - 16.5 gm/dL [facility] Hematocrit 52.6(H) 40.5 - 48.5 % [facility] Mean Cell Volume 91.8 82.9 - 93.1 fL [facility] Mean Cell Hemoglobin 30.7 27.5 - 32.1 pg [facility] Mean Cell Hemoglobin Concentration 33.5 32.0 - 35.7 gm/dL [facility] Platelet 260 145 - 357 x10(3)/[facility] RDW Standard Deviation 51.9(H) 36.0 - 45.0 fL [facility] RDW coefficient of variation 15.8(H) 11.4 - 13.8 % [facility] Mean Platelet Volume 9.4 7.6 - 12.9 fL [facility] NRBC% auto 0.0 % [facility] NRBC Absolute 0.000 0.000 - 0.000 x10(3)/[facility] Blood specimen (specimen) 02/17/2017 10:42 AM EDT 02/17/2017 10:53 AM EDT Narrative Resulting Agency Comment Spec In Lab Slim Summers MD HEMATOLOGY ORDERA BLES [facility] [place] [address] * (ABNORMAL) pro-Brain Natriuretic Peptide (02/17/2017 10:42 AM EDT) Pathologist [facility] NT-proBNP 271(H) <=125 pg/mL [facility] Blood specimen (specimen) 02/17/2017 10:42 AM EDT 02/17/2017 10:53 AM EDT Narrative Resulting Agency Comment Spec In Lab Slim Summers MD CHEMISTRY ORDERAB LES [facility] [place] [address] * (ABNORMAL) Comprehensive metabolic panel (non-fasting) (02/17/2017 10:42 AM EDT) Glucose 129 65 - 199 mg/dL [facility] Comment:Diabetes: >=200 mg/d L plus symptoms Blood Urea Nitrogen 26(H) 10 - 20 mg/dL [facility] Creatinine 1.08 0.80 - 1.50 mg/dL [facility] Comment: Please note that the pediatric reference intervals supplied above were not validated at [facility]. Results from pediatric patients should be interpreted in conjunction to the patient's age, height and muscle mass. Sodium 142 135 - 145 mmol/L [facility] Potassium 4.5 3.5 - 5.0 mmol/L [facility] Comment: Please note: ??Patients with WBC >100,000 may have falsely elevated Potassium levels. ??For accurate Potassium quantification in these patients send serum separator tube (gold top) for subsequent determinations. ??Contact the Clinical Chemistry Laboratory if there are any questions. Chloride 105 98 - 107 mmol/L [facility] Carbon Dioxide 23 22 - 31 mmol/L [facility] Anion Gap 14 5 - 15 mmol/L [facility] Calcium 9.8 8.5 - 10.5 mg/dL [facility] Protein, Total 7.1 6.1 - 8.0 gm/dL [facility] Albumin 3.4 3.2 - 5.2 gm/dL [facility] Aspartate Aminotransferase 18 0 - 39 unit/L [facility] Alanine Aminotransferase 30 0 - 55 unit/L [facility] Alkaline Phosphatase 97 40 - 120 unit/L [facility] Bilirubin, Total 0.6 0.2 - 1.3 mg/dL [facility] Bilirubin, Direct 0.1 0.0 - 0.3 mg/dL [facility] Est Glomerular Filtration Rate >60 >=60 [facility] Comment: This estimated GFR (eGFR) value was calculated using the MDRD equation which has been validated on patients between the ages of 18 and 70. The MDRD should not be used to assess kidney function in patients < 18 years of age or in patients with extremes of body mass, or in patients with acute kidney failure. This value should be multiplied by 1.2 for patients. For further information please copy and paste the following links into your internet browser. http://Intellijoule/DHnkdep http://Intellijoule/DHMCnkf Blood specimen (specimen) 02/17/2017 10:42 AM EDT 02/17/2017 10:53 AM EDT Narrative Resulting Agency Comment Spec In Lab Slim Summers MD CHEMISTRY ORDERAB LES [facility] [place] [address] documented in this encounter Visit Diagnoses Diagnosis Chronic systolic heart failure SOB (shortness of breath) Shortness of breath Heart failure, unspecified documented in this encounter Care Teams Mix Maker Relationship Specialty Start Date End Date Cherise Staples MD [address] [place] [address] PCP - General 07/31/10 10/04/19 documented as of this encounter
--- OUTSIDE RECORDS SUMMARY | 2024-08-20 06:22 | XMS_ITS | Encounter Summary ---
Author Organization [facility] [place] [address] Care Team Providers Care Rubber Off Name Role Phone Nick Nettles MD Primary Care Provider Encounter Details Date Type Department Care Team (Late st Contact Info) Description 07/12/2020 Orders Only Cardiology at [address] [phone] Bruna Goodman, T[facility] [place] [address] HFrEF (heart failure with reduced ejection fraction) Social History Tobacco Use Types Packs/Day Years [...] as of this encounter Visit Diagnoses Diagnosis HFrEF (heart failure with reduced ejection fraction) documented in this encounter Care Teams Rubber Off Relationship Specialty Start Date End Date Nick Nettles MD [address] [place], [place] [address] PCP - General Internal Medicine 10/05/19 documented as of this encounter
--- OUTSIDE RECORDS SUMMARY | 2024-08-20 06:22 | XMS_ITS | Encounter Summary ---
[place] [address] Care Team Providers Care Bisque Kiln Placer Name Role Phone Cherise Staples MD Primary Care Provider [phone] Encounter Details Date Type Department Care Team (Latest Contact Info) Description 02/24/2019 1:40 PM EDT Laboratory Appointment Lab [address] [place] [phone] Chronic heart failure with preserved ejection fraction [...] Procedure Name Priority Date/Time Associated Diagnosis Comments PRO-BRAIN NATRIURETIC PEPTIDE STAT 02/24/2019 1:43 PM EDT Chronic heart failure with preserved ejection fraction BASIC METABOLIC PANEL STAT 02/24/2019 1:43 PM EDT Chronic heart failure with preserved ejection fraction documented in this encounter Results * (ABNORMAL) Basic Metabolic Panel (non-fasting) (02/24/2019 1:43 PM EDT) Glucose 185 65 - 199 mg/dL [facility] Comment:Diabetes: >=200 mg/d L plus symptoms Blood Urea Nitrogen 20 10 - 20 mg/dL [facility] Creatinine 0.96 0.80 - 1.50 mg/dL [facility] Sodium 138 135 - 145 mmol/L [facility] Potassium 4.6 3.5 - 5.0 mmol/L [facility] Comment: Please note: ??Patients with WBC >100,000 may have falsely elevated Potassium levels. ??For accurate Potassium quantification in these patients send serum separator tube (gold top) for subsequent determinations. ??Contact the Clinical Chemistry Laboratory if there are any questions. Chloride 104 98 - 107 mmol/L [facility] Carbon Dioxide 21(L) 22 - 31 mmol/L [facility] Anion Gap 13 5 - 15 mmol/L [facility] Calcium 9.5 8.5 - 10.5 mg/dL [facility] Est Glomerular Filtration Rate 79 >=60 mL/min/1. 73 m?? [facility] Comment: The eGFR was calculated using the CKD-EPI equation. As with all creatinine based estimates of kidney function, eGFR values calculated with the CKD-EPI equation are not accurate in patients with acute kidney failure, extremes of body mass or the acutely ill. http://ClearView™ Audio/[facility] OK[facility] CITYnkf eGFR 92 >=60 mL/min/1. 73 m?? [facility] Comment: The eGFR was calculated using the CKD-EPI equation. As with all creatinine based estimates of kidney function, eGFR values calculated with the CKD-EPI equation are not accurate in patients with acute kidney failure, extremes of body mass or the acutely ill. http://ClearView™ Audio/[facility] CITYnkf Blood specimen (specimen) 02/24/2019 1:43 PM EDT 02/24/2019 1:50 PM EDT Narrative Resulting Agency Comment Spec In Lab Bruna Goodman APRN CHEMISTRY ORDERABLES [facility] [place] [address] * (ABNORMAL) pro-Brain Natriuretic Peptide (02/24/2019 1:43 PM EDT) NT-proBNP 333(H) <=125 pg/mL [facility] Blood specimen (specimen) 02/24/2019 1:43 PM EDT 02/24/2019 1:50 PM EDT Narrative Resulting Agency Comment Spec In Lab Bruna Goodman FEATHER DRYING MACHINE OPERATOR [place] [address] documented in this encounter Visit Diagnoses Diagnosis Chronic heart failure with preserved ejection fraction documented in this encounter Care Teams Bisque Kiln Placer Relationship Specialty Start Date End Date Cherise Staples MD [address] [place] [address] PCP - General 07/31/10 10/04/19 documented as of this encounter
--- OUTSIDE RECORDS SUMMARY | 2024-08-20 06:22 | XMS_ITS | Encounter Summary ---
Author Organization [facility] [place] [address] Care Team Providers Care Sleeping Car Conductor Name Role Phone Nick Nettles MD Primary Care Provider Encounter Details Date Type Department Care Team (Late st Contact Info) Description 10/27/2020 Ancillary Procedure Radiology Library at [facility] [place] [phone] Nick Nettles MD [address] [place], [place] [id number] Social History Tobacco Use Types Packs/Day Years [...] Diagnosis Comments FILM LIBRARY STORAGE ONLY DX HIP Routine 10/27/2020 12:00 AM EST documented in this encounter Results * Film Library- Storage Only DX Hip (10/27/2020 12:00 AM EST) Narrative [facility] - 10/30/2020 2:23 PM EST This exam is auto-finalizing. It's purpose is for storage only. Nick Nettles MD IM FILM LIBRARY ORD ERABLES [place], [place] documented in this encounter Visit Diagnoses Not on filedocumented in this encounter Care Teams Sleeping Car Conductor Relationship Specialty Start Date End Date Nick Nettles MD [address] [place] [address] PCP - General Internal Medicine 10/05/19 documented as of this encounter
--- OUTSIDE RECORDS SUMMARY | 2024-08-20 06:22 | XMS_ITS | Encounter Summary ---
[place] [address] Care Team Providers Care Gis Manager Name Role Phone Cherise Staples MD Primary Care Provider [phone] Reason for Referral * Diagnostic Test (Routine) - Closed Specialty Diagnoses / Procedures Referred By Contac t Referred To Contact Cardiology Diagnoses (HFpEF) heart failure with preserved ejection fraction Dilated aortic root Procedures Echocardiogram Transthoracic(Leb) Bruna Goodman APRN [facility] [place] [place] [address] [facility] [place] [address] Referral ID Status Reason Start Date Expiration Date V isits Requested Visits Authorized [id number] Closed Specialty Service Requested 01/16/2018 01/16/2019 1 1 Reason for Visit * Diagnostic Test (Routine) - Closed Specialty Diagnoses / Procedures Referred By Contac t Referred To Contact Cardiology Diagnoses (HFpEF) heart failure with preserved ejection fraction Dilated aortic root Procedures Echocardiogram Transthoracic(Leb) Bruna Goodman APRN [facility] [place] [address] [facility] [place] [address] Referral ID Status Reason Start Date Expiration Date V isits Requested Visits Authorized [id number] Closed Specialty Service Requested 01/16/2018 01/16/2019 1 1 Encounter Details Date Type Department Care Team (Latest Contact Info) Description 02/27/2018 10:30 AM EDT - 02/27/2018 11:59 PM EDT Hospital Encounter Non-Invasive [place] [phone] Bruna Goodman, WATER VALVE REPAIRER [facility] [place] [address] (HFpEF) heart failure with preserved ejection fraction; Dilated aortic root Discharge Disposition: Home Social History Tobacco Use [...] Sig Dispensed Refills Start Date End Date potassium Citrate (UROCIT) 10 mEq (1,080 mg) [...] needed for Chest pain. Reported on 02/17/2017 metFORMIN (GLUCOPHAGE) 500 mg Tablet On tab with breakfast and two tabs with supper daily. 270 tablet 12/18/2017 03/16/2018 acetaminophen (TYLENOL) 500 mg Tablet Take 2 tablets by mouth as needed. 11/03/2017 11/03/2020 WARFARIN SODIUM (WARFARIN ORAL) Take by mouth daily. As Directed 06/15/2018 documented as of this encounter Plan of Treatment Not on file documented as of this encounter Procedures Procedure Name Priority Date/Time Associated Diagnosis Comments ECHO COMPLETE W CONTRAST Routine 02/27/2018 12:15 PM EDT (HFpEF) heart failure with preserved ejection fraction Dilated aortic root documented in this encounter Results * ECHO COMPLETE W CONTRAST (02/27/2018 12:15 PM EDT) EF 55 HEART[facility] SYSTEM Anatomical Region Laterality Modality Other 02/27/2018 Narrative 02/27/2018 1:19 PM EDT Procedure: ?Transthoracic Echocardiogram Patient: ?RAINA WILLIS ?(Age): 1945(72y) Med Rec#: ? [id number] ?Sex: ?M ? Site Loc: ? [facility] ?Ht / Wt: ??178(cm)/196(kg) Pt. Loc: ?Echo Lab ?BSA: ?2.9 Study Date: ?? 02/27/2018 ?Pt. Type: Outpatient Tape: ? Referring: ITALO Reading: Carlos Manuel Rodriguez ([id number]) Languages And Literature Instructor: Eleonora Watt RDCS Diagnosis: *Heart failure, unspecified (I50.9) Rhythm: ? [...] ? Mid-Inferior ?Normal ? Mid-Inferoseptal ?Normal ? [place]-Septal ? Normal ? [place]-Anterior ? Normal ? [place]-Lateral ?Normal ? [place]-Inferior ? Normal ? [place]-Tip ?Normal ? This report has been electronically signed by: Carlos Manuel Rodriguez MD ? 02/27/2018 12:33:00 Images reviewed and interpretation verified [facility] Cardiac Ultrasound Laboratory Procedure Note Carlos Manuel Rodriguez MD - 02/27/2018 Procedure: Transthoracic Echocardiogram Patient: RAINA WILLIS DOB(Age): 1945(72y) Med Rec#: [id number] Sex: M Site Loc: [facility] Ht / Wt: 178(cm)/196(kg) Pt. Loc: Echo Lab BSA: 2.9 Study Date: 02/27/2018 Pt. Type: Outpatient Tape: Referring: ITALO Reading: Carlos Manuel Rodriguez Yeni ([id number]) Languages And Literature Instructor: Eleonora Watt [facility] Diagnosis: *Heart failure, unspecified (I50.9) [...] Normal Mid-Posterolateral Hypokinetic Mid-Inferior Normal Mid-Inferoseptal Normal [place]-Septal Normal [place]-Anterior Normal [place]-Lateral Normal [place]-Inferior Normal [place]-Tip Normal This report has been electronically signed by: Carlos Manuel Rodriguez MD 02/27/2018 12:33:00 Images reviewed and interpretation verified [facility] Cardiac Ultrasound Laboratory Bruna Goodman APRN ECHO ORDERABLES documented in this encounter Visit Diagnoses Diagnosis (HFpEF) heart failure with preserved ejection fraction Dilated aortic root Thoracic aortic ectasia documented in this encounter Administered Medications Inactive Administered Medications - up to 3 most recent administrations Medication Order MAR Action Action Date Dose Rate Site perflutren protein-A microspheres (OPTISON) 0.22 mg/mL injection 3 mL 3 mL, Intravenous, ONCE, 1 dose, On Fri02/27/18 at 1145, Routine Given 02/27/2018 11:20 AM EDT 3 mLs documented in this encounter Care Teams Gis Manager Relationship Specialty Start Date End Date Cherise Staples MD [address] [place] [address] PCP - General 07/31/10 10/04/19 documented as of this encounter
--- OUTSIDE RECORDS SUMMARY | 2024-08-20 06:22 | XMS_ITS | Encounter Summary ---
Author Organization [facility] [place] [address] Care Team Providers Care Casting Machine Set Up Operator Name Role Phone Cherise Staples MD Primary Care Provider [phone] Encounter Details Date Type Department Care Team (Late st Contact Info) Description 12/15/2017 11:30 AM EDT Office Visit Weight and Wellness at [address] [phone] [place] [address] Morbid obesity (Primary Dx); Type 2 diabetes mellitus with [...] Sign Reading Time Taken Comments Blood Pressure 140/86 12/15/2017 11:14 AM EDT Pulse 84 12/15/2017 11:14 AM EDT Temperature - - Respiratory Rate 18 12/15/2017 11:1 4 AM EDT Oxygen Saturation 97% 12/15/2017 11: 14 AM EDT Inhaled Oxygen Concentration - - Weight 195.7 kg (431 lb 6.4 oz) 018 11:14 AM EDT Height 177.8 cm (5' 10) 12/15/2017 11: 14 AM EDT Body Mass Index 61.9 12/15/2017 11:14 AM EDT documented in this encounter Patient Instructions * Patient Instructions* Kera Hahn MD - 12/15/2017 11:30 AM EDT Start walking daily for exercise, you can start with 5 minutes per day. Tracking your food intake. Follow up with sleep study. myfitnesspal Or Loseit or sparkpeople. See me end of March. documented in this encounter Progress Notes * Kera Hahn MD - 12/15/2017 11:30 AM EDT [facility] Visit Patient Name: Jaime Crouch Date of : 1945 Age: 72 y.o. Cherise Staples MD / Thank you for referring Jaime Crouch to the [facility] for consultation regarding obesity. CHIEF COMPLAINT: Follow-up for Obesity INTERVAL HISTORY / PROGRESS TOWARD GOALS: [x] I reviewed past / interim records including notes and labs. Patient known to me here for follow up of obesity. At first visit in [facility] on 10.02.2017 he was 435 lbs. He had team visit on 10/09/2017. I saw him on 11/03 (weight was 433) and increased metformin to 1000 mg twice daily. Today weight is 431 lbs. Today he reports; Metformin: Taking 2 twice per day gave him diarrhea. Has been taking only one tab twice daily. Hemoglobin a1c was 6.5 in 10/2017 which makes dx of diabetes. Need change of prescription for 90 day supply. Feeling pretty good. At home has lost 7 lbs. Changes he has made: has cut down some. Still eating more than 1/2 cup of rice. Decreased snacking between meals. Toughest is lunch. Opens up refrigerator and there is a lot of stuff. Leftovers. Activity: Has not really made a change. Usual breakfast: 3 poached eggs and toast. Has not been tracking. HLP Classes start soon for him. Has not done follow up sleep study in [facility] which he is supposed to do. [facility] Followup Responses 10/02/2017 URICA - Readiness Score [...] No other new complaints. VITAL SIGNS: Vitals: 12/15/17 1114 BP: 140/86 Pulse: 84 Resp: 18 SpO2: 97% Weight: (!) 195.7 kg (431 lb 6.4 oz) Height: 177.8 cm (5' 10) Body mass index is 61.9 kg/(m^2). Last 5 weight values: Wt Readings from Last 5 Encounters: 12/15/17 (!) 195.7 kg (431 lb 6.4 oz) 11/03/17 (!) 196.5 kg (433 lb 3.2 oz) 10/09/17 (!) 196.7 kg (433 lb 9.6 oz) 10/02/17 (!) 197.3 kg (435 lb) 02/17/17 (!) 190.5 kg (420 lb) PHYSICAL EXAM: Appears well, not otherwise examined. Psych: NL affect today SUMMARY OF VISIT [...] the Healthy Lifestyles Program (HLP) at the [facility]. Classes start soon. ?? Goal setting: see instructions below. Discussed that I think he should be making more of an effort. Has lost only 4 lbs. ?? Type II DM: ?? HLP: Nutrition and activity recommendations to promote healthy weight ?? Medical management recommendations: continue use of metformin in this patient as this drug promotes weight loss. If further treatment is indicted, would avoid sulfonylureas and insulin if possibleand opt for GLP-1 agonists for the synergistic weight loss effect. Asked him to see if he can tolerate 1500 mg of metformin daily. Discussed that we can add liraglutide which can help modestly with weight loss; he does not want to add another medication at present. TOM: ?? Asked him to follow up on sleep study in [facility]. Patient Instructions Start walking daily for exercise, you can start with 5 minutes per day. Tracking your food intake. Follow up with sleep study. myfitnesspal Or Loseit or sparkpeople. See me end of March. I spent a total of 20 minutes with the patient 15 minutes of which were spent in [id number] discussion/counseling re obesity, nutrition and activity as well as obesity related co-morbidities documented in this encounter Plan of Treatment Not on file documented as of this encounter Visit Diagnoses Diagnosis Morbid obesity- Primary Type 2 diabetes mellitus with other circulatory complication, without long-term current use of insulin documented in this encounter Care Teams Casting Machine Set Up Operator Relationship Specialty Start Date End Date Cherise Staples MD [address] [place] [address] PCP - General 07/31/10 10/04/19 documented as of this encounter
--- OUTSIDE RECORDS SUMMARY | 2024-08-20 06:22 | XMS_ITS | Encounter Summary ---
Author Organization [facility] [place] [address] Care Team Providers Care Lean Manufacturing Engineer Name Role Phone Cherise Staples MD Primary Care Provider [phone] Encounter Details Date Type Department Care Team (Late st Contact Info) Description 04/10/2018 12:00 PM EDT Notes Only Weight and Wellness at [address] [phone] Arrived Social History Tobacco Use Types Packs/Day [...] on filedocumented in this encounter Care Teams Lean Manufacturing Engineer Relationship Specialty Start Date End Date Cherise Staples MD [address] [place] [address] PCP - General 07/31/10 10/04/19 documented as of this encounter
--- OUTSIDE RECORDS SUMMARY | 2024-08-20 06:22 | XMS_ITS | Encounter Summary ---
Author Organization [facility] Address [facility] [place] [address] Care Team Providers Care Health Data Administrator Name Role Phone Cherise Staples MD Primary Care Provider [phone] Reason for Visit * Reason Comments Weight Management Encounter Details Date Type Department Care Team (Late st Contact Info) Description 10/09/2017 1:30 PM EST Office Visit Weight and Wellness at [address] [phone] Maria Esther Miller Tara I, RD [facility] [place] [place] [address] Class 3 obesity due to excess calories with serious comorbidity and body mass index (BMI) of 60.0 to 69.9 in adult Social History Tobacco Use Types Packs/Day Years [...] Sign Reading Time Taken Comments Blood Pressure 144/89 10/09/2017 2:08 PM EST Pulse 60 10/09/2017 2:08 PM EST Temperature - - Respiratory Rate 20 10/09/2017 2:08 PM EST Oxygen Saturation 98% 10/09/2017 2:08 PM EST Inhaled Oxygen Concentration - - Weight 196.7 kg (433 lb 9.6 oz) 10/09/2017 2:08 PM EST Height 177.8 cm (5' 10) 10/09/2017 2:08 PM EST Body Mass Index 62.22 10/09/2017 2:08 PM EST documented in this encounter Patient Instructions * Patient Instructions* Karrie Wei RD - 10/09/2017 1:30 PM EST Nutrition Goals: 1. Measure and track all food and enter into My Fitness Pal - aim for 2,400 calories - handout from[employer]MyPlate.gov for servings of all food groups/day reviewed and provided 2. Divide up evenly over the day - ~600 calories/meal and ~ 150 -200/2 small snacks 3. Slow down meal time by stopping nursing home through and putting down utensil and check in with hunger level - 20 -30 minutes 4. Work on identify physical hunger vs. 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 Khalil - he seemed unaware of this number. What things have you done in past that were successful: Wt Watchers (but didn't stay with it) Why now? Pt says needs to make a change What stands in your way of making progress: Love of food 3 Best Reasons for making change/being healthy? 1. Mobility 2. Clothing - hard to shop for evin size clothes 3. Reducing medications Eliminating the possibility of Diabetes What changes are you ready to implement? Food Changes right now/ Exercise change at this time of year is difficult. * Karrie Wei I, RD - 10/09/2017 1:30 PM EST Nutrition Intervention for Weight Management Assessment/Nutrition Diagnosis: Pt at increased nutritional risk related to excessive calorie intake and sub optimal physical activity resulting in overweight/obesity as evidenced by BMI and diet recall Food Trackers: not today Weight Today: Vitals 10/09/2017 Height (Albanian) 5' 10 Height (Metric) 177.8 cm Weight (Albanian) 433 lbs 10 oz Weight (Metric) 196.68 kg BODY MASS INDEX 62.22 kg/m2 Weight Loss History: Successfully lost 90# by limiting himself to smaller portions, no longer taking second portions andstopped eating in between meals Appetite/Hunger: unsure what true physical hunger feels like but can feel uncomfortable by overeating Typical Dietary Intake: B: oatmeal 1 cup cooked with 1 tablespoon of olive oil and soy sauce; black coffee OR 3 eggs 1 sausage cee 2 slices of toast L: 3 small slices toast and 3-4 ounces chicken breast and olive oil; water S: 2 ounces cheese and 8 Triscuits crackers D: 1 serving pasta -certified executive chef salad with 1/2 pork chop, 1/2 avocado, 2 hard boiled eggs and BC and a little parm olive oil and vinegar S: might go back for more meat Barriers to Change: Triggered by the ideas of foods; their taste and where certain restaurants are located Views eating as an event and something exciting to do Nutrition Goals: 1. Measure and track all food and enter into My Fitness Pal - aim for 2,400 calories - handout from[employer]ate.gov for servings of all food groups/day reviewed and provided 2. Divide up evenly over the day - ~600 calories/meal and ~ 150 -200/2 small snacks 3. Slow down meal time by stopping nursing home through and putting down utensil and check in with hunger level - 20 -30 minutes 4. Work on identify physical hunger vs. Emotional hung Monitor/Evaluate: Will follow up in P for Eatsmarter classes Aim for 5-10% weight loss from ABW x 3-6 months from initial visit Thank you Karrie Wei MS RD LD 60 minutes were spent today in face to face contact * Tobi Grant RN - 10/09/2017 1:30 PM EST Jaime Crouch is a 72 y.o. male seen in clinic today for initial consultation and evaluations. 6 Minute Walk Test (6MWT): deferred 30-Second Chair Stand: 6 Gastroenterology Manager Strength Test Right: 33.6 Left: 36.4 POST 6MWT: BP: HR: SPO2: Current activity level/preferences: Access to gym/home exercise equipment: Current mobility needs: Successes: Motivators: Personal barrier to moving more is: Initial Activity Goal: 1. Per pt., confidence in achieving above activity goals: Tobi Grant RN documented in this encounter Plan of Treatment Not on file documented as of this encounter Visit Diagnoses Diagnosis Class 3 obesity due to excess calories with serious comorbidity and body mass index (BMI) of 60.0 to 69.9 in adult documented in this encounter Care Teams Health Data Administrator Relationship Specialty Start Date End Date Cherise Staples MD [address] [place] [address] PCP - General 07/31/10 10/04/19 documented as of this encounter
--- OUTSIDE RECORDS SUMMARY | 2024-08-20 06:22 | XMS_ITS | Encounter Summary ---
Author Organization [facility] Address [facility] [place] [address] Care Team Providers Care Cap And Hat Production Supervisor Name Role Phone Cherise Staples MD Primary Care Provider Encounter Details Date Type Department Care Team (Late st Contact Info) Description 07/01/2018 2:30 PM EDT Office Visit Weight and Wellness at [address] [phone] Karrie Cyr I, MISHEL [facility] [place] [address] Type 2 diabetes mellitus with other circulatory [...] - Inhaled Oxygen Concentration - - Weight 194.9 kg (429 lb 9.6 oz) 07/01/2018 4:15 PM EDT Height 177.8 cm (5' 10) 07/01/2018 4:15 PM EDT Body Mass Index 61.64 07/01/2018 4:15 PM EDT documented in this encounter Patient Instructions * Patient Instructions* Karrie Wei RD - 07/01/2018 2:30 PM EDT Nutrition Goals: 1. Practice measuring and tracking all food x 7 days to assess calorie intake 2. Will work towards 2,000 calories/day and 60 grams of carbohydrate per meal 3. At most, 40% from heart healthyt fats ~ 800 calories (88 grams of fat) Thank you Karrie Wei MS RD LD documented in this encounter Progress Notes * Karrie Wei RD - 07/01/2018 2:30 PM EDT Nutrition Intervention for Weight Management RD visit Assessment/Nutrition Diagnosis: Pt at increased nutritional risk related to excessive calorie intake and sub optimal physical activity resulting in overweight/obesity as evidenced by BMI and diet recall Food Trackers: not using a food tracking or keeping a food journal at this time Weight Today: 6# weight loss x 10 months Vitals 07/01/2018 Height (Singaporean) 5' 10 Height (Metric) 177.8 cm Weight (Singaporean) 429 lbs 10 oz Weight (Metric) 194.865 kg BODY MASS INDEX 61.64 kg/m2 Typical Dietary Intake: B: 2 1/2 cups cooked oatmeal plus 1 tablespoon olive oil ~ 515 calories L: dimple spring rolls and dumplings and 1 order of sticky rice 1 1/2 cups rice D: chicken chili 3 cups at least Previous Nutrition Goals: Measure and track food - not met Interview: Jimbo identifies today that his portion sizes are still too large. Offered to create a meal plan for Jimbo in regards to servings of food groups at each meal. Jimbo feels he would not likely usethis as a tool. Jimbo also reports today that he feels he thinks about food more than a normal person. Barriers to Change: Unsure at this time if the effort to make change is worth the feeling of deprivation Dietary Intervention Today: Reviewed carbohydrates, quantities per meal and provided handout Nutrition Goals: 1. Practice measuring and tracking all food x 7 days to assess calorie intake 2. Will work towards 2,000 calories/day and 60 grams of carbohydrate per meal 3. At most, 40% from heart healthyt fats ~ 800 calories (88 grams of fat) Monitor/Evaluate: Will follow up in P for Eatsmarter classes Aim for 5-10% weight loss from ABW x 3-6 months from initial visit Thank you Karrie Wei MS, RD LD 30 minutes were spent today in face to face contact documented in this encounter Plan of Treatment Not on file documented as of this encounter Visit Diagnoses Diagnosis Type 2 diabetes mellitus with other circulatory complication, without long-term current use of insulin documented in this encounter Care Teams Cap And Hat Production Supervisor Relationship Specialty Start Date End Date Cherise Staples MD [address] [place] [address] PCP - General 07/31/10 10/04/19 documented as of this encounter
--- OUTSIDE RECORDS SUMMARY | 2024-08-20 06:22 | XMS_ITS | Encounter Summary ---
Author Organization [facility] [place] [address] Care Team Providers Care Registered Associate Name Role Phone Cherise Staples MD Primary Care Provider [phone] Reason for Visit * Reason Comments Nephrolithiasis Encounter Details Date Type Department Care Team (Late st Contact Info) Description 07/01/2018 11:30 AM EDT [place] [address] Edyta Arambula Jr., MD [facility] [place] [address] Nephrolithiasis Social History Tobacco Use Types Packs/Day [...] Sign Reading Time Taken Comments Blood Pressure 147/90 07/01/2018 11:30 AM EDT Pulse 82 07/01/2018 11:30 AM EDT Temperature 36.6 ??C (97.9 ??F) 07/01/2018 11:30 AM E DT Respiratory Rate - - Oxygen Saturation 94% 07/01/2018 11:30 AM EDT Inhaled Oxygen Concentration - - Weight - - Height - - Body Mass Index - - documented in this encounter Progress Notes * Lorene Zepeda - 07/01/2018 11:30 AM EDT Urology Outpatient Progress Note ?? HPI: Mr. Crouch is a pleasant 72 year old gentleman with a long h/o recurrent urolithiasis who returns for urologic follow up regarding his uric acid stones. He has not passed any stones since PCNL in 04/2009. In the interval since his follow up on 07/30/2016 he has been doing well. He has not had any lateralizing abdominal or flank pain. He has not had any hematuria, has not passed any stones. His LUTS isstable - he takes lasix twice a day, and this makes him void every hour during the day, and have nocturia 2-6times at night. If he does not take lasix, he does not have to void as much (he did not take it this morning because he had to drive 1 hour to this appointment) He is unsure if he empties, but thinks he does. He is not interested in medications for his LUTS at this time. He remains on urocit k (20meq BID), is tolerating it well. There was a period of time when he couldnot afford it (when his retired), and when he stopped taking it, he immediately got gout. He was able to find a cheaper pharmacy, and is now back on the potassium citrate 20meq BID. He had a UTI3 weeks ago, and then one more a year ago. Both resolved after ciprofloxacin. ?? His last US in 12/[address] a CT scan done in 08/2015 showed a small 6mm non-obstructing rightrenal stone. This was not visible on US in 07/2016, and is not seen on today's ultrasound. ?? 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 Since he was last seen, he was diagnosed with heart failure, diabetes, and started a weight loss program (lost 5lbs so far) ?? Review of Systems He denies fever, chills, and other constitutional symptoms, or dysuria, hematuria, retention, or trouble voiding. Review of head and neck, lymphatic, pulmonary, cardiac, GI, and neuro/psych systems is negative other than the following : +bruises easily (on warfarin) Past medical history: urolithiasis, obesity, CAD ([place] age 52), heart failure, DM, LHD, HTN, h/o gout; atrial fibrillation (on warfarin), TOM Past surgical history: bilateral hip replacements (7 years ago), cardiac stent placement, appendectomy, right pcnl 2008, circumcision in [facility] ~5 years ago, cholecystectomy 08/2015 requiring brief ICU stay Family history: sister with urolithiasis Social History: no tobacco history; occasional ETOH Physical Exam Vital signs were reviewed. Constitutional: He appears well-developed and well-nourished. No distress. HENT: Normocephalic and atraumatic. Cardiovascular: Normal rate. Pulmonary/Chest: Effort normal. Abdominal: Soft. There is no tenderness. There is no rebound. Genitourinary: No CVA tenderness ?? Labs: 01/2018: Cr 0.94, K 4.3 Imaging studies: We personally reviewed the following studies: Renal US from today (07/01/2018). This shows no nephrolithiasis. Stable pelvicaliectasis. The septated left renal cyst has mildly increased in size - from 2.1cm in 2016 to 2.4cm today. IMPRESSION 1. Study is limited by patient body habitus. Within this limitation, no sonographically evident nephrolithiasis, bilaterally. 2. Mild bilateral pelviectasis, largely unchanged. 3. Mild interval increase in size of septated mid pole left renal cyst now measuring maximally approximately 2.4 cm. Continued attention on follow-up imaging. 4. Poor evaluation of the bladder due to incomplete distention. Renal US from 07/2016: There is mild bilateral renal pelviectasis without convincing evidence of caliectasis. No stones are seen on either side. 2.1 cm left renal cyst with thin septation unchanged from ultrasound of 01/05/2014 and of very low risk of malignancy. Impression/Plan: 1) uric acid nephrolithiasis currently on potassium citrate 20meq BID. Imaging today shows no definitive stones. Will plan to have him return to clinic in 2 years with a renal US at the time. Advised him to get a CT scan in the interim if he were to develop renal colic symptoms. We again discussed that we could repeat a 24 hour urine collection now that he has been on k cit for several years. He is hesitant due to cost (costhim $300-$400). Since he has been doing well clinically, with no new stones, he would prefer to simply continue current dose of potassium citrate, and we think this is reasonable. We also instructed him to keep very well hydrated, with a goal urine output of at least 2.5 L per day. 2) septated 2.4cm left renal cyst risk of malignancy is very small per report given lack of nodularity or evident vascularity. This will be followed during serial nephrolithiasis imaging, does not need separate/earlier re-imaging. 3) LUTS his bladder was decompressed on today's renal US. I suspect his LUTS is motly due to lasix.I did briefly discuss medical therapy (specifically tamsulosin and side effects), he is not interested at this time. 4) UTIs - discussed that diabetes and obesity increase the risk for UTIs. We discussed that currently, when he gets 1 UTI/year, he does not have recurrent or persistent UTIs, but if his UTIs get morefrequent, one of Dr. Arambula's partners who specializes in UTIs could see him at that time. ?? STAFF ADDENDUM: I saw and examined Jaime Crouch with Dr. Zepeda, have independently reviewed his renal u/s, and concur with history, exam, impression, and plan as noted and amended. EDYTA ARAMBULA JR, MD documented in this encounter Plan of Treatment Not on file documented as of this encounter Visit Diagnoses Diagnosis Nephrolithiasis Calculus of kidney documented in this encounter Care Teams Registered Associate Relationship Specialty Start Date End Date Cherise Staples MD [address] [place] [address] PCP - General 07/31/10 10/04/19 documented as of this encounter
--- OUTSIDE RECORDS SUMMARY | 2024-08-20 06:22 | XMS_ITS | Encounter Summary ---
Author Organization [facility] Address [facility] [place] [address] Care Team Providers Care Electronics Teacher Name Role Phone Cherise Staples MD Primary Care Provider [phone] Encounter Details Date Type Department Care Team (Late st Contact Info) Description 04/10/2018 1:30 PM EDT Office Visit Weight and Wellness at [address] [phone] Karrie Cyr I, MISHEL [facility] [place] [place] [address] Class 3 severe obesity due to excess [...] - Inhaled Oxygen Concentration - - Weight 193.2 kg (426 lb) 04/10/2018 2:26 PM EDT Height 177.8 cm (5' 10) 04/10/2018 2:26 PM EDT Body Mass Index 61.12 04/10/2018 2:26 PM EDT documented in this encounter Patient Instructions * Patient Instructions* Karrie Wei RD - 04/10/2018 1:30 PM EDT Nutrition Goals: 1. Use one week food journal and identify calories for that week to assess if that energy is apporpriate for weight loss goal 2. Aim for 2,000-2,400 calories 3. A little more measuring for accuracy Thank you Karrie Wei MS RD LD documented in this encounter Progress Notes * Karrie Wei RD - 04/10/2018 1:30 PM EDT Nutrition Intervention for Weight Management RD visit x 4 months Assessment/Nutrition Diagnosis: Pt at increased nutritional risk related to excessive calorie intake and sub optimal physical activity resulting in overweight/obesity as evidenced by BMI and diet recall Food Trackers: yes Weight Today: Vitals 04/10/2018 Height (Arabic) 5' 10 Height (Metric) 177.8 cm Weight (Arabic) 426 lbs Weight (Metric) 193.232 kg BODY MASS INDEX 61.12 kg/m2 Typical Dietary Intake: B: oatmeal with soy sauce; 2 cups OR 3 scrambled eggs with 1 cup full fat cottage cheese L: turkey sandwich with 4 ounces aisha and branham OR bagel with ham and cheese and veggies 1/2 ounce cheese with 6 crackers D: seafood 10 ounces and 1 cup rice OR 8 ounce hamburger with 2 cups rice S: rice 1 cup and beans 1 cup Typical Beverages: water and coffee Previous Nutrition Goals: 1. Measure and track all food and enter into My Fitness Pal - aim for 2,400 calories - handout fromChooseMyPlate.gov for servings of all food groups/day reviewed and provided - not met - serving sizes are my issue but what I have done well with during this program is eating between meals 2. Divide up evenly over the day - ~600 calories/meal and ~ 150 -200/2 small snacks - doing better with snack between meals 3. Slow down meal time by stopping mcc through and putting down utensil and check in with hunger level - 20 -30 minutes - better at eating slowly but I still notice others are still eating slower that an 4. Work on identify physical hunger vs. Emotional hunger - I have never had a bite of food I didn't savour. What is working?: I have some kind of motivation to do this but as you know it is slow Interview: Jimbo reports his struggle with weight loss and dietary changes is his ability to control his portion sizes. Discussed today the benefits of better accuracy with measurement and identifying the total amount of energy he is taking in. Jimbo has lost ~ 1# per month x 6 months. Barriers to Change: Genuine Love and appreciation of all foods Nutrition Goals: 1. Use one week food journal and identify calories for that week to assess if that energy is apporpriate for weight loss goal 2. Aim for 2,000-2,400 calories 3. A little more measuring for accuracy Monitor/Evaluate: Will follow up in [facility] for Eatsmarter classes Aim for 5-10% weight loss from ABW x 3-6 months from initial visit Thank you Karrie Wei MS RD LD 30 minutes were spent today in face to face contact documented in this encounter Plan of Treatment Not on file documented as of this encounter Visit Diagnoses Diagnosis Class 3 severe obesity due to excess calories with serious comorbidity and body mass index (BMI) of 60.0 to 69.9 in adult documented in this encounter Care Teams Electronics Teacher Relationship Specialty Start Date End Date Cherise Staples MD [address] [place] [address] PCP - General 07/31/10 10/04/19 documented as of this encounter
--- OUTSIDE RECORDS SUMMARY | 2024-08-20 06:22 | XMS_ITS | Encounter Summary ---
Author Organization [facility] [place] [address] Care Team Providers Care Talent Development Analyst Name Role Phone Cherise Staples MD Primary Care Provider [phone] Encounter Details Date Type Department Care Team (Late st Contact Info) Description 03/06/2018 12:00 PM EDT Notes Only Weight and Wellness at [address] [phone] Arrived Social History Tobacco Use Types Packs/Day [...] on filedocumented in this encounter Care Teams Talent Development Analyst Relationship Specialty Start Date End Date Cherise Staples MD [address] [place] [address] PCP - General 07/31/10 10/04/19 documented as of this encounter
--- OUTSIDE RECORDS SUMMARY | 2024-08-20 06:22 | XMS_ITS | Encounter Summary ---
Author Organization [facility] [place] [address] Care Team Providers Care Trackmobile Operator Name Role Phone Cehrise Staples MD Primary Care Provider [phone] Encounter Details Date Type Department Care Team (Late st Contact Info) Description 04/03/2018 12:00 PM EDT Notes Only Weight and Wellness at [address] [phone] Arrived Social History Tobacco Use Types Packs/Day [...] on filedocumented in this encounter Care Teams Trackmobile Operator Relationship Specialty Start Date End Date Cherise Staples MD [address] [place] [address] PCP - General 07/31/10 10/04/19 documented as of this encounter
--- OUTSIDE RECORDS SUMMARY | 2024-08-20 06:22 | XMS_ITS | Encounter Summary ---
Author Organization [facility] Address [facility] [place] [address] Care Team Providers Care Dining Room Cashier Name Role Phone Cherise Staples MD Primary Care Provider [phone] Encounter Details Date Type Department Care Team (Latest Contact Info) Description 07/01/2018 10:29 AM EDT - 07/01/2018 11:59 PM EDT Hospital [place] [address] Edyta Arambula Jr., MD [facility] [place] [address] Nephrolithiasis Discharge Disposition: Home Social History Tobacco Use [...] Sig Dispensed Refills Start Date End Date warfarin (COUMADIN) 5 mg Tablet take 1 [...] for Chest pain. Reported on 02/17/2017 metFORMIN (GLUCOPHAGE-XR) 500 mg Tablet Sustained Release 24 hr Take 1 tablet by mouth 2 times daily. 60 tablet 11 03/16/2018 02/24/2019 acetaminophen (TYLENOL) 500 mg Tablet Take 2 tablets by mouth as needed. 11/03/2017 11/03/2020 documented as of this encounter Plan of Treatment Not on file documented as of this encounter Procedures Procedure Name Priority Date/Time Associated Diagnosis Comments US RETROPERITONEAL COMPLETE Routine 07/01/2018 11:06 AM EDT Nephrolithiasis documented in this encounter Results * US Retroperitoneal Complete [...] 11:33 am) PATIENT INFO: ID #: ? [id number] ?: ??[birth year] (72 yrs) Name: ? LAZARO CROUCH ? Visit Date: 07/01/2018 11:01 am PERFORMED BY: Performed By: ? Isabel Mason RDMS Attending: ?Lauren SPIVEY, Jane Padilla. Referred By: ?EDYTA ARAMBULA Location: ? [facility] SERVICE(S) PROVIDED: ??URETRO - Retroperitoneal Complete - [id number] ? [id number] INDICATIONS: ??stones TECHNIQUE/SCAN QUALITY: Scan Quality: ?? Limited by patient body habitus. COMPARISON: REnal/bladder ultrasound 07/30/16 [facility]; CT abdomen/pelvis 08/29/15 from [facility]. RIGHT KIDNEY: Size (cm) ?L: ??13.0 Cortical [...] 07/01/2018 11:33 am) PATIENT INFO: ID #: [id number] : [birth year] (72 yrs) Name: LAZARO CROUCH Visit Date: 07/01/2018 11:01 am PERFORMED BY: Performed By: Isabel Mason RDMS Attending: Jane Aguilar MD Referred By: EDYTA ARAMBULA JR Location: [facility] SERVICE(S) PROVIDED: URETRO - Retroperitoneal Complete - [id number] INDICATIONS: stones TECHNIQUE/SCAN QUALITY: Scan Quality: Limited by patient body habitus. COMPARISON: REnal/bladder ultrasound 07/30/16 [facility]; CT abdomen/pelvis 08/29/15 from [facility]. RIGHT KIDNEY: Size (cm) L: 13.0 Cortical [...] the bladder due to incomplete distention. Jane Augilar MD Electronically Signed Final Report 07/01/2018 11:33 am Edyta Arambula Jr., MD IMG US GEN ORDERAB LES documented in this encounter Visit Diagnoses Diagnosis Nephrolithiasis Calculus of kidney documented in this encounter Care Teams Dining Room Cashier Relationship Specialty Start Date End Date Cherise Staples MD [address] [place] [address] PCP - General 07/31/10 10/04/19 documented as of this encounter
--- OUTSIDE RECORDS SUMMARY | 2024-08-20 06:22 | XMS_ITS | Encounter Summary ---
[place] [address] Care Team Providers Care Vat Cleaner Name Role Phone Nick Nettles MD Primary Care Provider [phone] Reason for Visit * Reason Comments Follow-up * Consultation (Routine) - Specialty Diagnoses / Procedures Referred By Contalberto t Referred To Contact Dermatology Diagnoses Disorder of the skin and subcutaneous tissue, unspecified Second opinion regarding use of Efudex Tx for multiple scalp lesions Procedures Consult Nick Nettles MD [address] [place] [address] Raghavendra Dan MD [address] [place] [address], [facility] [address] Referral ID Status Reason Start Date Expiration Date V isits Requested Visits Authorized [id number] 07/29/2019 07/28/2020 1 1 Encounter Details Date Type Department Care Team (Late st Contact Info) Description 10/05/2019 3:45 PM EST Office Visit Dermatology at [address] [address] Raghavendra Dan MD [address] [place] [address], [facility] [address] [place] (actinic keratosis) Social History Tobacco Use Types Packs/Day Years [...] as of this encounter Progress Notes * Raghavendra Dan MD - 10/05/2019 3:45 PM EST Problem: Patient desires a second opinion regarding use of Efudex treatment for multiple scalp lesions Jimbo is a 74-year-old gentleman who has actinic keratoses throughout the thinning parietal scalp. Hewas seen by Dr. Almonte for an ENT issue and Dr. Almonte saw the scalp lesions and suggested a 20-day course of 5-FU. The patient was going to fill this and use it but decided to request a second opinion from me, in part because of the cost not covered by his insurance. Physical examination reveals a pleasant 74-year-old gentleman who has early actinic keratoses present throughout the parietal scalp and onto the vertex. A total of 7 are noted. There is no evidence of any malignant lesions. Examination of the sun exposed face ears neck hands is benign. Assessment plan: Actinic keratoses scalp parietal and vertex 1. Discussed the option with patient regards to use Efudex, but given the 7 lesions of concern today, I think this could also be achieved with liquid nitrogen. 2. This would also be a more pleasant and less time-consuming therapy 3. Patient agrees, and today after obtaining informed consent sites were treated with LN2 x2 total of 7 sites treated 4. Patient will not fill his Efudex cream 5. Return to clinic here PRN for new lesion/concerns. 6. Reinforced sun avoidance precautions which the patient is following. CC: Nick Nettles MD documented in this encounter Plan of Treatment Not on file documented as of this encounter Visit Diagnoses Diagnosis [place] (actinic keratosis) Actinic keratosis documented in this encounter Care Teams Vat Cleaner Relationship Specialty Start Date End Date Nick Nettles MD [address] [place] [address] PCP - General Internal Medicine 10/05/19 documented as of this encounter
--- OUTSIDE RECORDS SUMMARY | 2024-08-20 06:22 | XMS_ITS | Encounter Summary ---
[place] [address] Care Team Providers Care Aluminum Boat Inspector Name Role Phone Nick Nettles MD Primary Care Provider Encounter Details Date Type Department Care Team (Late st Contact Info) Description 10/30/2020 Orders [place] [address] Jeffrey Cuevas MD [address] [facility] [place] [address] History of total hip arthroplasty, left Social History Tobacco Use Types Packs/Day Years [...] as of this encounter Visit Diagnoses Diagnosis History of total hip arthroplasty, left documented in this encounter Care Teams Aluminum Boat Inspector Relationship Specialty Start Date End Date Nick Nettles MD [address] [place] [address] PCP - General Internal Medicine 10/05/19 documented as of this encounter
--- OUTSIDE RECORDS SUMMARY | 2024-08-20 06:22 | XMS_ITS | Encounter Summary ---
Author Organization [facility] [place] [address] Care Team Providers Care Behavioral Health Aide Name Role Phone Cherise Staples MD Primary Care Provider [phone] Encounter Details Date Type Department Care Team (Late st Contact Info) Description 01/02/2018 12:00 PM EDT Notes Only Weight and Wellness at [address] [id number] Arrived Social History Tobacco Use Types Packs/Day [...] on filedocumented in this encounter Care Teams Behavioral Health Aide Relationship Specialty Start Date End Date Cherise Staples MD [address] [place] [address] PCP - General 07/31/10 10/04/19 documented as of this encounter
--- OUTSIDE RECORDS SUMMARY | 2024-08-20 06:22 | XMS_ITS | Encounter Summary ---
Author Organization [facility] [place] [address] Care Team Providers Care Anode Worker Name Role Phone Cherise Staples MD Primary Care Provider [phone] Encounter Details Date Type Department Care Team (Late st Contact Info) Description 10/06/2017 Orders Only [facility] [address] [place] [address] [place] [address] Social History Tobacco Use Types Packs/Day Years [...] on filedocumented in this encounter Care Teams Anode Worker Relationship Specialty Start Date End Date Cherise Staples MD [address] [place] [address] PCP - General 07/31/10 10/04/19 documented as of this encounter
--- OUTSIDE RECORDS SUMMARY | 2024-08-20 06:22 | XMS_ITS | Encounter Summary ---
[place] [address] Care Team Providers Care Tempering Machine Operator Name Role Phone Cherise Staples MD Primary Care Provider [phone] Encounter Details Date Type Department Care Team (Late st Contact Info) Description 09/30/2017 [place] [phone] Ginette Salvador Social History Tobacco Use Types Packs/Day Years [...] encounter Miscellaneous Notes * Telephone Encounter - Ginette Salvador - 09/30/2017 9:24 AM EST Spoke on the phone with Mr. Crouch to discuss his referral to the bariatric surgery program. I toldhim that he does not qualify for bariatric surgery due to his age. He said that he thought he was being referred to the weight and wellness center, not the bariatric surgery program. I told him that I will note this on the referral and send it to the [facility]. I also told him that I would follow up withhis PCP's office to let them know. documented in this encounter Plan of Treatment Not on file documented as of this encounter Visit Diagnoses Not on filedocumented in this encounter Care Teams Tempering Machine Operator Relationship Specialty Start Date End Date Cherise Staples MD [address] [place] [address] PCP - General 07/31/10 10/04/19 documented as of this encounter
--- OUTSIDE RECORDS SUMMARY | 2024-08-20 06:22 | XMS_ITS | Encounter Summary ---
Author Organization [facility] Address [facility] [place] [address] Care Team Providers Care [employer] Principal Name Role Phone Cherise Staples MD Primary Care Provider Reason for Visit * Consultation (Routine) - Closed Specialty Diagnoses / Procedures Referred By Carla soto Referred To Contact Weight and Wellness Diagnoses morbid obesity Nick Ntetles MD [address] [place] [address] [facility] [address] [place] [address] Referral ID Status Reason Start Date Expiration Date V isits Requested Visits Authorized [id number] Closed Consult, Test & Treat Connection Center 09/29/2017 09/29/2018 1 1 Encounter Details Date Type Department Care Team (Late st Contact Info) Description 10/02/2017 1:00 PM EST Office Visit Weight and Wellness at [facility] [address] [place] [address] Kera Hahn MD [facility] [place] [address] Class 3 obesity due to excess calories with serious comorbidity and body mass index (BMI) of 60.0 to 69.9 in adult (Primary Dx); Hypertension, unspecified type; TOM on CPAP; Coronary artery disease involving samish heart, angina presence unspecified, unspecified vessel or lesion type; (HFpEF) heart failure with preserved ejection fraction; Pre-diabetes; Abnormal weight gain Social History Tobacco Use Types Packs/Day Years [...] Sign Reading Time Taken Comments Blood Pressure 144/80 10/02/2017 2:16 PM EST Pulse 93 10/02/2017 2:16 PM EST Temperature - - Respiratory Rate 20 10/02/2017 2:16 PM EST Oxygen Saturation 96% 10/02/2017 2:16 PM EST Inhaled Oxygen Concentration - - Weight 197.3 kg (435 lb) 10/02/2017 2:16 PM EST Height 177.8 cm (5' 10) 10/02/2017 2:16 PM EST Body Mass Index 62.42 10/02/2017 2:16 PM EST documented in this encounter Patient Instructions * Patient Instructions* Kera Hahn MD - 10/02/2017 1:00 PM EST Return for fasting labs and return stool sample when you can. You will be scheduled for healthy lifestyles program and Team evaluation. See me in about a month. Read about the metformin which I recommend for the blood sugar and weight loss. documented in this encounter Progress Notes * Sang Nichols - 10/02/2017 1:00 PM EST RESEARCH STUDY CONSENTING VISIT Visit Date: 10/02/17 PI/Designee: Dr. Julien Velásquez/Sang Nichols [facility] [id number]: [facility] Biorepository VELOS: [id number] Jaime Crouch??consented to participate in the above-named protocol. Prior to giving informed consent, the subject had the opportunity to: ?? Read the consent form (or have it read to him/her) ? Discuss the protocol participation with research (or designee) including: ?? Purpose of the study ?? Painful or uncomfortable procedures ?? Risks/benefits ?? Alternatives ?? Who to call with questions ?? Withdrawal rights ?? Ask questions; and ? Consult with family or other physicians ? The subject indicated his/her consent by signing and dating the Patient Informed Consent Form ? Informed consent was conducted prior to any research-related procedures. ?? The subject was provided with a fully executed copy of the consent. Sang Nichols Associate Research Coordinator [facility] [place] Pager: [phone] * Kera Hahn MD - 10/02/2017 1:00 PM EST [facility] Visit Patient Name: Jaime Crouch Date of : 1945 Age: [address] Cherise Staples MD / None Thank you for referring Jaime Crouch to the [facility] for a consultation for obesity management. I reviewed past records including notes, labs, and other evaluation and discussed them with the patient. Current Outpatient Prescriptions on File Prior to Visit Medication Sig Dispense Refill ??? furosemide (LASIX) 40 mg Tablet Take 40 mg by mouth 2 times daily. ??? potassium chloride (K-DUR/KLOR-CON) 10 mEq Tablet Sustained Release Take 20 mEq by mouth 2 times daily. ??? aspirin 81 mg Tablet, Delayed Release (E.C.) Take 1 tablet by mouth daily. 30 tablet 3 ??? meTOPROLOL succinate (TOPROL XL) 200 mg Tablet Sustained Release 24 hr Take 1 tablet by mouth daily. 30 tablet 12 ??? acetaminophen (TYLENOL) 500 mg Tablet Take 2 tablets by mouth every 6 hours. (Patient taking differently: Take 1,000 mg by mouth as needed.) 30 tablet 1 ??? allopurinol (ZYLOPRIM) 300 mg Tablet Take 300 mg by mouth daily. ??? WARFARIN SODIUM (WARFARIN ORAL) Take by mouth daily. As Directed ??? lisinopril (PRINIVIL;ZESTRIL) 20 mg Tablet Take 1 tablet by mouth daily. 30 tablet 0 ??? atorvastatin (LIPITOR) 80 mg Tablet Take 80 mg by mouth daily. ??? nitroGLYcerin (NITROSTAT) 0.4 mg Tablet, Sublingual Place 0.4 mg under the tongue every 5 minutes as needed for Chest pain. Reported on 02/17/2017 No current facility-administered medications on file prior to visit. CHIEF COMPLAINT: Management of excess weight HISTORY OF PRESENT ILLNESS: Jaime Crouch is a 72 y.o. male referred to the [facility] for an evaluation of obesity. He has multiple medical issues including ASCVD, HTN, CHF, TOM , venous stasis and pre-diabetes. He is unaccompanied today. He reports: I want to have some motivation to change my eating habits to lose weight. I am heavier than ever been. Weight History: Was heavy as a child. Always overweight but was not that bad. Did OK socially in HS and college. Grew up above restaurant which parents ran. [employer]. Father when he was 13. His mother ran the restaurant. 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 Quit that job and lost some weight. Stayed at what he felt was a reasonable weight. Says he was size 46 regular. Got , gained weight, got . second time. Went on various diets. Would Lose and regain. is very supportive . Got up to 400 lbs at age 57 or 62. Then lost 100 lbs doing dimple Chi and eating less. Then slowly regained and this AM 428 at home. Has done OA, weight watchers. Lost and regained. No nutrasystem or Kayy Prieto. He has considered bariatric surgery but was told that he was over the weight limit. [facility] Initial Responses 10/02/2017 Importance of making a change 10 - Very Important Confidence to make change 7 Barriers to being physically active Access to a gym or recreation facility, Health limitations, Injury, Pain, Motivation Hours/day on screen time 2-4 hours . Impact of weight on the patient's life/greatest concerns about his weight. 3 years ago had long hospitalization after gallbadder problems. In hosp 13 days. He thinks weight contributed to problems. Had hip replacement, probably need knees replaced and is concerned about whether is too heavy to have this surgery. Mobility problems. Had MA, PE, stent. Has sleep apnea. Another sleep study was recommended in [facility] which he will do. Recently operations staff specialist security ordered nuclear ETT but pt was too big for the scanner. Motivation, Goals and Barriers: Motivation: 10 Many things would improve. is doing hiking and he would like to be able to do this. Confidence: 7. I have tried to lose weight over the course of my life. My history is such that itdoes not happen. Overarching Goals: as above Barriers and Challenges: Loves to cook and eat and study about food. Has Six kinds of olive oil. Knees hurt, hard to exercise. Has stationary Bike but difficult for him to use this also. In the summer did not walk due to knee pain and DELGADO. Still does dimple chi altho says it is not aerobic. [place] away near [place], [place] 24 hr diet recall: Breakfast: 3 Poached eggs, with breakfast sausage, one cee and small slices toast, butter. Coffee, black No AM snack Lunch:ate out. Ate a turkey wrap. And another turkey sandwich with branham, pickles, onions, branham. I did not need that second sandwich! Coffee. Dinner: Turkish take out. Stir fried veg, pork and rice. Good sized helping. Had a banana at some point during the day. etoh: 2 drinks per week: vodka martini or glass of wine. Tracking: has done on paper. Has a smart phone. No history of bulemia: Binge eating: Thinks no, eats too much but would not say he loses control. In general does not eat sweets. Does not keep them in the house. REVIEW OF SYSTEMS: see above HPI for additional pertinent +/- findings Constitutional: energy level is not great. Takes a lot of meds. Often naps. High appetite. HEENT: No changes in vision. No ear pain, rhinorrhea / congestion, sore throat. Some sinus clogging. CV: No chest pain or discomfort, no palpitations. . + LE edema. Compression socks. Stasis problems in past. RESP: No shortness of breath at rest, cough, or wheezing. No sleep apnea. + snoring, + DELGADO with walking on level. Could do one flight but not quickly. GI: No nausea,vomiting, diarrhea, constipation, abdominal pain : No dysuria, hematuria, urinary frequency + urgency. Musculoskeletal: + aches in knees and other joints Integumentary: No rash or bruising. Had venous statsis ulcer in the past; saw would clinic and it eventually healed. Wears compression stockings. Psychiatric: says in general he does not feel depressed but: there has to be some depression with feelling helpless about my physical condition No anxiety. Neurological: No headaches Endocrine: No cold intolerance, dry skin, dry/brittle hair, constipation. No excessive thirst. PAST MEDICAL HISTORY Medical and Surgical History: Reviewed and updated. Patient Active Problem List Diagnosis Code ??? Nephrolithiasis N20.0 ??? Phimosis N47.1 ??? Hypertension I10 ??? Suspected cholecystitis vs cholangitis K81.9 (in past, then had saadia) ??? Atrial fibrillation I48.91 ??? TOM on CPAP G47.33, Z99.89 ??? Morbid obesity E66.01 ??? CAD I25.10 ??? Nonsustained ventricular tachycardia I47.2 ??? Cholangitis K83.0 ??? Chronic venous insufficiency I87.2 ??? Venous stasis ulcer of left lower extremity I83.029 ??? Pulmonary embolism I26.99 ??? (HFpEF) heart failure with preserved ejection fraction I50.30 ??? Pre-diabetes R73.03 The patient has the following diagnoses that are adverse health consequences of obesity: ASCVD, TOM, Venous statsis, pre-diabetes, HTN, Afib History of abdominal surgeries: saadia Family History: Reviewed Father at 54 of pneumonia after etoh problems. Mother at 76 of pulmonary fibrosis. Social History: Reviewed and updated in eD. The patient's support system includes: . I did notask about offspring. VITAL SIGNS: Blood pressure 144/80, pulse 93, resp. rate 20, height 177.8 cm (5' 10), weight (!) 197.3 kg (435 lb), SpO2 96 %. Waist Circumference: Neck Circumference: Last 5 weight values: Wt Readings from Last 5 Encounters: 02/17/17 (!) 190.5 kg (420 lb) 01/21/17 (!) 192.3 kg (424 lb) 10/17/15 (!) 176.9 kg (390 lb) 09/01/15 (!) 172.6 kg (380 lb 8.2 oz) 11/23/14 (!) 186 kg (410 lb) Body Composition Bioimpedance Analysis: Body Fat %: RMR: Kcal/d VAT: L PHYSICAL EXAM: pleasant and alert. He had difficulty arising from chair and from exam table. Gen: Alert, NAD. ++ central adiposity. Skin: Warm, pink, no rashes, no skin breakdown of the intertriginous folds, no acanthosis HEENT: NC/AT, PERRLA, EOMI, clear conjunctiva, M, Mallampati grade 3/4 Neck: supple and thick, no LAD, no thyromegaly, no thyroid nodules appreciated CV:distant heart sounds, irreg irreg, NL S1S2, no murmur Resp: CTAB, no wheezes/crackles Abd: +BS, soft, NT/ND, no HSM/masses appreciated Neuro: Alert and oriented, detailed neuro exam not done. Extremities: wearing compression stockings. Psych: NL affect today PREVIOUS LABS AND IMAGING: No results found for: CHLPL No results found for: HDL No results found for: LDLCHOL No results found for: TRIG No results found for: CHOLHDL No results found for: HA1C (6.1 From in scanned documents) Lab Results Component Value Date NA 142 02/17/2017 K 4.5 02/17/2017 CL 105 02/17/2017 CO2 23 02/17/2017 BUN 26 (H) 02/17/2017 CREATININE 1.08 02/17/2017 GLUCOSE 129 02/17/2017 GLUCFASTING 151 (H) 09/02/2015 CALCIUM 9.8 02/17/2017 Lab Results Component Value Date ALT 30 02/17/2017 AST 18 02/17/2017 ALKPHOS 97 02/17/2017 BILITOT 0.6 02/17/2017 BILIDIR 0.1 02/17/2017 ALBUMIN 3.4 02/17/2017 PROT 7.1 02/17/2017 SUMMARY OF VISIT AND RECOMMENDATIONS: Jaime Crouch presents to the [facility] for a consultative visit regarding obesity management. The patient has Class 3 Obesity defined by a BMI of 62. In addition, Jaime Crouch has co-morbidities associated with both adipocyte dysfunction and with excessive adipocyte mass ( TOM, ASCVD, AFIB, venous stasis, pre-diabetes). Jaime Crouch's history and physical exam were not suggestive of an underlying medical disease that can contribute to weight gain. However, obesity is a multifactorial disease, and in this case, the following factors could be potential contributors: ?? Genetics and Epigenetics: ?? Medications: (beta yong, was increased in after episode of CHF; EF subsequently improved) ?? Sleep Disturbance and Circadian Pattern ?? Environment ?? Mental Health and/or Disordered Eating ?? Nutrition and Eating Patterns ?? Lifestyle and Inactivity ?? Social and Cultural Influences ?? Stress and/or Trauma History - the prolonged cortisol release associated with chronic stress is strongly correlated with the development of obesity The patient has been informed that obesity is a chronic disease requiring vaccine key customer leader management. Obesity is associated with increased risk of adverse health and psychosocial consequences as well as higher mortality. In addition, the increase in visceral fat volume places the patient at greater risk for metabolic disease. We reviewed the overall goals for obesity management, which include improvingthe patient's health, quality of life, and body weight/composition. I explained that a weight loss of just 5-10% of body weight can be associated with improvements in health. Medical issues and plan: Class 3 Obesity: Treatment options were discussed with the patient and include intensive lifestyle intervention, pharmacotherapy, and bariatric surgical or endoscopic procedures. ?? Medical Management with intensive lifestyle counseling: The patient is interested in the HealthyLifestyles Program (HLP) at the [facility]. This is a yearlong program during which the patient will receive counseling, education, and support around nutrition, physical activity, and behavioral therapy. ?? Will schedule a baseline nutrition and fitness assessment ?? Follow-up: Our health motor coach supervisor will be in contact with the patient to initiate the Healthy Lifestyles Program. ?? Fasting Labs ordered to assess co-morbidities: ?? CMP, FLP, HA1c, TSH - ordered. I did not order vitamin D level since no diagnosis to cover this thru Medicare. ?? Further recommendations: ?? Annual screen for or assessment of Type II Diabetes, HTN, Hyperlipidemia, Depression, NAFLD, vitamin D deficiency and renal disease ?? Given the association of obesity with cancer, all age appropriate cancer screenings should be UTD ?? Medication Review: If possible medications that promote weight gain should be avoided and medications that are weight-neutral or promote weight loss should be considered. Obesity Co-morbidities: HLP - nutrition, behavioral health and activity recommendations to promote healthy weight and potentially see an improvement in the following adverse health consequences: # pre-diabetes: Medical management recommendations: I discussed possible the use of metformin in this patient as this drug promotes weight loss and he has pre-diabetes with A1c of 6.1 in February. Last GFR was normal. He would like to read about this medication. We will discuss further after labs are back or at nextvisit. Could also consider liraglutide. Discussed and he is willing to consider in the future. Hyperlipidemia/ASCVD/hx of CHF: Continue statin He is on 200 mg of metoprolol succinate per day; could consider more weight neutral beta yong. Hypertension: ?? Agree with an JUSTIN inhibitor for the treatment of HTN in this patient as obesity has a direct effect on the angiotenisn- renin system in that adipocyte tissue expresses JUSTIN and angiotensinogen. This activity is higher in visceral adipocyte tissue which is elevated in this patient. # at risk for NAFLD: Check LFTs. TOM: ?? diagnosed with sleep study. He has follow up planned in [facility]. Consented for biobank. Discussed trying to increase activity. Discussed tracking food intake. I spent a total of 60 minutes with the patient 45 minutes of which were spent in [id number] discussion/counseling re obesity, nutrition and activity as well as obesity related co-morbidities Patient Instructions Return for fasting labs and return stool sample when you can. You will be scheduled for healthy lifestyles program and Team evaluation. See me in about a month. Read about the metformin which I recommend for the blood sugar and weight loss. documented in this encounter Plan of Treatment Not on file documented as of this encounter Results * (ABNORMAL) Hemoglobin A1c (10/09/2017 1:18 PM EST) Hemoglobin A1c 6.5(H) 4.3 - 5.6 % [facility] Comment: Reference Range: 4.3 [...] S67-74 Estimated Average Glucose See note mg/dL [facility] Comment: Estimated Average Glucose [...] into estimated average glucose values. ??Diabetes Care 2008:31(8):1890-3743. Blood specimen (specimen) 10/09/2017 1:18 PM EST 10/09/2017 3:19 PM EST Narrative Resulting Agency Comment Spec In Lab Kera Hahn MD CHEMISTRY ORDERABLES Performing Organization Address City/[facility]/ZIP Co de Phone Number [facility] [place] [address] * TSH (10/09/2017 1:18 PM EST) Thyroid Stimulating Hormone 1.77 0.27 - 4.20 mlU/ML [facility] Blood specimen (specimen) 10/09/2017 1:18 PM EST 10/09/2017 3:19 PM EST Narrative Resulting Agency Comment Spec In Lab Kera Godoy Selma SPIVEY CHEMISTRY ORDERABLES Performing Organization Address [facility] Co de Phone Number [facility] [place] [address] * (ABNORMAL) CMP w/fasting Glucose (10/09/2017 1:18 PM EST) Glucose Fasting 130(H) 65 - 99 mg/dL [facility] Comment: ?Fasting* Glucose Interpretive Criteria Normal [...] of Diabetes Mellitus, Position Statement from the [place] [employer]. ??Diabetes Care, Volume 33, Supplement 1, Sep 2009 Blood Urea Nitrogen 18 10 - 20 mg/dL [facility] Creatinine 0.92 0.80 - 1.50 mg/dL [facility] Sodium 142 135 - 145 mmol/L [facility] Potassium 4.4 3.5 - 5.0 mmol/L [facility] Comment: Please note: ??Patients with WBC >100,000 may have falsely elevated Potassium levels. ??For accurate Potassium quantification in these patients send serum separator tube (gold top) for subsequent determinations. ??Contact the Clinical Chemistry Laboratory if there are any questions. Chloride 103 98 - 107 mmol/L [facility] Carbon Dioxide 24 22 - 31 mmol/L [facility] Anion Gap 15 5 - 15 mmol/L [facility] Calcium 9.8 8.5 - 10.5 mg/dL [facility] Protein, Total 7.6 6.1 - 8.0 gm/dL [facility] Albumin 3.7 3.2 - 5.2 gm/dL [facility] Aspartate Aminotransferase 25 0 - 39 unit/L [facility] Alanine Aminotransferase 32 0 - 55 unit/L [facility] Alkaline Phosphatase 115 40 - 120 unit/L [facility] Bilirubin, Total 0.7 0.2 - 1.3 mg/dL [facility] Est Glomerular Filtration Rate >60 >=60 [facility] Comment: The reported eGFR should be multiplied by 1.2 for patients. The MDRD is not an appropriate measure of renal function for patients with body mass extremes or in patients with acute kidney failure. http://[employer]/DHnkdep http://[employer]/DHMCnkf Blood specimen (specimen) 10/09/2017 1:18 PM EST 10/09/2017 3:19 PM EST Narrative Resulting Agency Comment Spec In Lab Kera Hahn MD CHEMISTRY ORDERABLES [facility] [place] [address] * (ABNORMAL) Lipid Panel (10/09/2017 1:18 PM EST) Cholesterol, Total 130 <=239 mg/dL [facility] Triglyceride 167 <=199 mg/dL [facility] HDL Cholesterol 34(L) >=40 mg/dL [facility] LDL Cholesterol 63 <=190 mg/dL [facility] Cholesterol/HDL Ratio 3.8 ratio [facility] Lipid Interpretation See Note [facility] Comment: Lipid management should be guided by a patient? s ASCVD risk, goals and preferences. ACC/AHA Guidelines recommend high intensity statin if clinical ASCVD or LDL greater than or equal to 190 mg/dL. http://[employer].com/IBI-STN-Zhtpnewts Adults aged 40-75 with LDL 70-189 mg/dL should have their 10 year ASCVD risk estimated with the ACC/AHA ASCVD risk plant anatomist http://tools.acc.org/KDIAR-Hkps-Nhfdgnjhq/ Statin should be discussed if risk greater [...] Hahn MD CHEMISTRY ORDERABLES Performing Organization Address City/[facility]/ZIP Co de Phone Number [facility] [place] [address] * Biorepository Request (10/09/2017 1:18 PM EST) [facility] Biorepository Hold Sample in lab [facility] Blood specimen (specimen) 10/09/2017 1:18 PM EST 10/10/2017 2:23 PM EST Narrative Resulting Agency Comment Spec In Lab Kera Hahn MD MOLECULAR ORDERABLES Performing Organization Address City/[facility]/ZIP Co de Phone Number [facility] [place] [address] * Biorepository Request (10/09/2017 6:30 AM EST) Biorepository Hold Sample in lab [facility] Stool specimen (specimen) 10/09/2017 6:30 AM EST 10/10/2017 2:38 PM EST Narrative Resulting Agency Comment Spec In Lab Kera Hahn MD MOLECULAR ORDERABLES [facility] [place] [address] documented in this encounter Visit Diagnoses Diagnosis Class 3 obesity due to excess calories with serious comorbidity and body mass index (BMI) of 60.0 to 69.9 in adult- Primary Hypertension, unspecified type TOM on CPAP Obstructive sleep apnea (adult) (pediatric) Coronary artery disease involving samish heart, angina presence unspecified, unspecified vessel or lesion type (HFpEF) heart failure with preserved ejection fraction Pre-diabetes Other abnormal glucose Abnormal weight gain Abnormal weight gain documented in this encounter Care Teams Secondary School Principal Relationship Specialty Start Date End Date Cherise Staples MD [address] [place] [address] PCP - General 07/31/10 10/04/19 documented as of this encounter
--- OUTSIDE RECORDS SUMMARY | 2024-08-20 06:23 | XMS_ITS | Encounter Summary ---
Author Organization [facility] Address [facility] [place] [address] Care Team Providers Care Patient Biller Name Role Phone Cherise Staples MD Primary Care Provider [phone] Encounter Details Date Type Department Care Team (Late st Contact Info) Description 09/02/2015 Orders [place] [address] Sloan Heredia MD [facility] [place] [address] Social History Tobacco Use Types Packs/Day Years Used Date Smoking Tobacco: Former Smokeless Tobacco: Never Alcohol Use Standard Drinks/Week [...] on filedocumented in this encounter Care Teams Patient Biller Relationship Specialty Start Date End Date Cherise Staples MD [address] [place] [address] PCP - General 07/31/10 10/04/19 documented as of this encounter
--- OUTSIDE RECORDS SUMMARY | 2024-08-20 06:23 | XMS_ITS | Encounter Summary ---
[place] [address] Care Team Providers Care Corporate Accountant Name Role Phone Cherise Staples MD Primary Care Provider [phone] Reason for Visit * Reason Comments Wound Care both legs Encounter Details Date Type Department Care Team (Late st Contact Info) Description 10/27/2015 8:30 AM EST Office [place] [phone] Hope Roberts RN Venous stasis ulcer of left lower extremity Social History Tobacco Use Types Packs/Day Years [...] as of this encounter Progress Notes * Hope Laurent RN - 10/27/2015 8:48 AM EST [facility] Progress Note HPI: Jaime Crouch is a 70 y.o. male who returns today for follow up assessment of venous stasisulcers. The patient has been followed by the [facility] since 10/17/15. VNA: None, discontinued services through [facility], he would prefer to come to the wound center twice weekly SUBJECTIVE: Feels well, denies fever/chills/sweats Tolerating Profore wraps well Offers no complaints PE: General: alert, well appearing in NAD Profore wraps to BLE in place, both had slid slightly Mepilex foam dressings were removed. There was a mod amount of s/sang drainage. There is no malodor. There is no erythema. Wound beds with thin layer of loose slough BLE with hemosiderin staining Edema decreasing MEASUREMENTS (cm) RIGHT RIGHT 10/23/15 LEFT LEFT 10/23/15 Calf girth 45 cm 50 cm 48.5 cm 50.4 cm Ankle girth 27 cm 27.3 cm 28.5 cm 30 cm Treatment Analgesia Provided: none Conservative Sharp Debridement: removing devitalized tissue using a curette removing < 20 cm sq.down to and including subcutaneous tissue Bleeding: small amount, resolved w/NS rinse Wounds cleansed with NS Mineral oil was applied to dry scaling skin, then legs cleansed with body soap and water, rinsed and patted dry Pain Reassessment (0-10): 0/10 Wound beds 100% red moist tissue w/granulation buds post debridement. Islands of newly epithelialized tissue present w/in wound beds Dressings/Wraps applied: Profore Wraps applied to bilateral LE 1. Legs and wounds were cleansed with normal saline 2. mepilex foam was applied to the wounds, extending dressing onto intact periwound skin by approximately 1 cm.?? 3. Triamcinolone cream to intact tissue on bilat LE 4. Profore #1:?? Was applied by wrapping the foot in a spiral fashion starting at the base of the toe and contining in a sprial manner up the legs to the knee with a 50% overlap. 5. Profore #2:?? Was applied by wrapping the foot in a spiral fashion starting at the base of the toes and continuing over the heel and up the leg to just below the knee overlapping with a 50% overlap.? 6. Profore #3:?? Was applied by wrapping the base of the toes to just below the knee making sure toenclose the heel in a figure of 8 fashion with a 50% stretch and a 50% overlap.? 7. Profore #4:?? Was applied by starting at just above the toes working in a circular fashion to just below the knee with a 50% overlap and a 50% stretch, making sure to enclose the heel.?? Discussed with patient care instructions of wraps, patient verbalized understanding Assessment/Plan: Jaime Crouch is a 70 y.o. male with venous stasis ulcers to LLE. The wounds are healing well, edema is decreasing and he is tolerating current plan as outlined above. Will continue with current plan. Follow Up: Twice weekly wound debridement, assessment, compression wraps. Patient Education: Discussed transition to compression stockings vs. Compression garments once edema is stabilized on RLE and once wounds heal and edema is stabilized on LLE. documented in this encounter Plan of Treatment Not on file documented as of this encounter Visit Diagnoses Diagnosis Venous stasis ulcer of left lower extremity documented in this encounter Care Teams Corporate Accountant Relationship Specialty Start Date End Date Cherise Staples MD [address] [place] [id number] PCP - General 07/31/10 10/04/19 documented as of this encounter
--- OUTSIDE RECORDS SUMMARY | 2024-08-20 06:23 | XMS_ITS | Encounter Summary ---
[place] [address] Care Team Providers Care Processing Lead Name Role Phone Cherise Staples MD Primary Care Provider [phone] Reason for Visit * Reason Comments Dressing Change venous stasis ulcers Encounter Details Date Type Department Care Team (Late st Contact Info) Description 11/09/2015 9:30 AM EST Office Visit [place] [phone] Sanjiv Emanuel Venous stasis ulcer of left lower extremity [...] on file documented as of this encounter Patient Instructions * Patient Instructions* Sanjiv Emanuel, PT - 11/09/2015 10:07 AM EST We have taken you out of compression wraps today & transitioned you into 30-40 mmHg Caralon compression stockings on both legs today. You will need to wear these stockings (both layers) all day, within 20 minutes of getting up in themorning, so that your legs do not have the chance to swell. Wear the stockings as directed with under sock (roman) on first, then over sock (black) on second. Consider purchasing Medi PinnacleCareler donning device online to assist you with putting your stockings on. You have a intact blister on your Right front lower leg & nearly healed wounds on your Left back leg. In 2-3 days, Remove those dressings, cleanse areas gently with saline & gauze. Apply another dressing to cover. Call if any worsening in wounds or swelling. If you cannot wear the compression stockings, wear the Tubigrip double layer stockings. documented in this encounter Progress Notes * Sanjiv Emanuel, PT - 11/09/2015 9:29 AM EST Images from the original note were not included. [facility] Physical Therapy Progress Note Date of Exam/First Treatment: 10/30/15 Date of onset: 10/09/15 Referring Provider: Dorothea Cantor APRN Diagnosis: 1. Venous stasis ulcer of left lower extremity Medicare Certification period: 10/30/2015 - 01/28/2016 Reason for PT referral: Jaime Crouch is a 70 y.o. male referred to physical therapy for evaluation and treatment of (L)LE chronic venous ulcers. HPI: per initial [facility] note by TAYLER on 10/17/15: Jaime Crouch is a 70 y.o. male who is referred by Dr. Nick Nettles for evaluation of left legvenous ulcer. ?? The wound has been present since 10/09/15. He has been treated with modified unnas boot. Reports pain, being managed with oxycodone. Treated at [facility]. He had ulcer in the right leg, many years ago, which healed while he was admitted for 2 weeks with another medical issue. He has compression stockings but is unableto don them. His job requires extended sitting. He is morbidly obese and unable to walk very far. He is not a diabetic or a smoker. VNA:?? none Prior Level of Function: Unchanged per pt Functional Limitations: ambulates (I) with cane SUBJECTIVE: ???I am not sure that my will be able to put those (compression stockings) on.?? OBJECTIVE: Pt seen for treatment of (B)LE edema & (L)LE wounds. Pt presents alone today. Pt brought in hisnew Caralon Graduated Compression Multi-layer stocking system 30- 40 mmHg, color Black, size E Regular that he received from DME. MEASUREMENTS (cm) RIGHT today RIGHT 11/06/15 RIGHT 11/02/15 RIGHT on 10/30/15 LEFT today LEFT 11/06/15 LEFT 11/02/15 LEFT on 10/30/15 Calf girth 45.6 46.3 47.5 47.5 47.5 47.8 47.0 48.2 Ankle girth 29.0 27.2 27.0 27.5 29.2 28.6 28.3 29.2 Knee to heel length NE NE NE 48.0 NE NE NE 47.0 Wound pain: 09/17 Dressing removed: Unna's boot with Eliud wrap (L)LE, Mepilex Lite dressing (L)LE; Double layer Tubigrips to (R)LE Drainage: minimal to moderate serosanguinous drainage Odor: none Wound #1 Location: Left distal, anterior, slightly lateral lower leg Periwound: dry, scaly skin Wound bed: NOW HEALED Measurements: N/A Tunnelling: none Undermining: None There was a previously noted wound more lateral, posterior to above wound, which is NOW HEALED. Wound #2 Location: Left proximal posterior lower leg Periwound: intact Wound bed: NOW HEALED Measurements: N/A Tunnelling: none Undermining: none Wound #3 Location: Left mid posterior lower leg, distal to wound #2 Periwound: intact Wound bed: NOW HEALED Measurements: N/A Tunnelling: none Undermining: none Pt was previously noted to have 2 small intact fluid filled blisters on (L) posterior mid lower legalong a wrinkle from wrap sliding down. As of today, they appear nearly healed with epithelial tissue covering. PHOTO-- Left posterior LE: NEW: pt has intact serous filled blister noted on Right anterior distal lower leg measuring 0.3 cm x 1.0 cm. PHOTO-- Right anterior distal LE: Treatment Analgesia Provided: none Conservative Sharp Debridement: removing devitalized tissue: none Dry, scaly skin removed (B)LEs with forceps Bleeding: none Wounds cleansed with NS Legs cleansed with body soap and water, (L)LE also cleansed with Hibiclens, then rinsed and patted dry Pain Reassessment (0-10): 0/10 Dressings applied: (R) anterior lower leg wound (intact blister): covered with Mepilex 3x3 border dressing (L) posterior lower leg wounds: covered with Mepilex 6x6 border dressing Pt given Double layer Tubigrip size E for (B)LE if he is unable to wear compression stockings. Caralon Multi-layer (2) compression stockings applied to (B)LEs. Pt is unable to reach feet to do @home. to assist as needed. Self-care/home management: Pt instructed in wound/skin care, dressing application, donning technique for dual layer compression stockings. Pt ed provided about need for appropriate level of compression (30-40 mmHg) to prevent recurrent wounds & worsening edema. Pt ed provided about donning devices & pt shown Monstrous Bulter device in [employer]. Pt tolook for it online to purchase. Pt given written instructions via AVS: We have taken you out of compression wraps today & transitioned you into 30-40 mmHg Caralon compression stockings on both legs today. You will need to wear these stockings (both layers) all day, within 20 minutes of getting up in themorning, so that your legs do not have the chance to swell. Wear the stockings as directed with under sock (roman) on first, then over sock (black) on second. Consider purchasing Monstrous Dumont donning device online to assist you with putting your stockings on. You have a intact blister on your Right front lower leg & nearly healed wounds on your Left back leg. In 2-3 days, Remove those dressings, cleanse areas gently with saline & gauze. Apply another dressing to cover. Call if any worsening in wounds or swelling. If you cannot wear the compression stockings, wear the Tubigrip double layer stockings. Perceived barriers to wound healing: CVI Patient Goals: full healing Further Objective Information: pt transfers (I), ambulates with cane (I) ASSESSMENT: Pt has been followed in [facility] for (L)LE wounds & (B)LE wounds R/T venous insufficiency. Pt's wounds have continued to demonstrate ongoing significant signs of healing; the largest wound(s) on Leftlateral LE are now healed. The previously noted (L) posterior LE wounds (from wrinkles in wraps when they slid down) are essentially healed. Pt noted to have new intact blister (R) anterior lower leg. Pt had increased edema (R) ankle/lower leg with use of Tubigrips since last visit. The Brodiea's bootwith Coban wrap that was applied to his (L)LE stayed in place (not slide down) & did not createwrinkles in wrap & in skin. Pt transitioned into (B) dual layer compression stockings today. Ptshould benefit from skilled PT intervention for wound care, to work towards outlined goals. Physical therapy is indicated to: Decrease edema Promote wound healing Offload pressure Relieve pressure Debride non-viable tissue Goals: prison goals (11/28/15) 1. (L)LE Wounds healed--MET as of 11/09/15 2. Pt fitted with and instructed in use of compression stockings/garments to prevent future skin breakdown--MET as of 11/09/15 Medicare Therapy G-Code Date Tracking: (Update G-Code status every 10 visits or when code changes) 1 2 3 4 5 6 7 8 9 10 10/30/15 11/02/15 11/06/15 11/09/15 Physical therapy plan: 1-2 x per week x 2-4 weeks, tapering as indicated. Pt to be seen in conjunction with RN, [employer] PRINCIPAL SOLUTION SPECIALIST, [facility] in [facility]. Follow up visit in 1 week in [facility]. Pt to look up donning devices for stockings online. DME: INVENTORY MANAGEMENT SPECIALIST ordered Caralon Graduated Compression Multi-layer stocking system 30-40 mmHg, color Black,size E Regular via TWS and pt received. Treatment to include: Compression wraps (Profore wraps) Wound cleansing Selective sharps debridement of non-viable tissue Application of wound dressings Self-care/home management Other Recommendations: Pt will require lifelong use of 30-40 mmHg compression stockings for CVI. The plan has been discussed with the patient and they have agreed with the planned treatment. Total Treatment time: 39 minutes Total Timed Code Treatment: 26 minutes Visit start time: 938 End time: 1017 SANJIV EMANUEL PT, CWS documented in this encounter Plan of Treatment Not on file documented as of this encounter Visit Diagnoses Diagnosis Venous stasis ulcer of left lower extremity documented in this encounter Care Teams Processing Lead Relationship Specialty Start Date End Date Cherise Staples MD [address] [place] [address] PCP - General 07/31/10 10/04/19 documented as of this encounter
--- OUTSIDE RECORDS SUMMARY | 2024-08-20 06:23 | XMS_ITS | Encounter Summary ---
Author Organization [facility] [place] [address] Care Team Providers Care Dispensing Optician Name Role Phone Cherise Staples MD Primary Care Provider [phone] Reason for Visit * Reason Comments Wound Care both legs Encounter Details Date Type Department Care Team (Late st Contact Info) Description 11/20/2015 9:00 AM EDT Office [place] [phone] Marla Paredes APRN [facility] [place] [address] Venous stasis ulcer of left lower extremity [...] Sign Reading Time Taken Comments Blood Pressure 135/74 11/20/2015 9:08 AM EDT Pulse 63 11/20/2015 9:08 AM EDT Temperature 36.3 ??C (97.4 ??F) 11/20/2015 9:08 AM ED T Respiratory Rate - - Oxygen Saturation 97% 11/20/2015 9:08 AM EDT Inhaled Oxygen Concentration - - Weight - - Height - - Body Mass Index - - documented in this encounter Progress Notes * Marla Paredes APRN - 11/20/2015 2:02 PM EDT Images from the original note were not included. [facility] Progress Note HPI: per initial [facility] note by TAYLER on 10/17/15: Jaime Crouch is a 70 y.o. male who is referred by Dr. Nick Nettles for evaluation of left legvenous ulcer. ?? The wound has been present since 10/09/15. He has been treated with modified unnas boot. Reports pain, being managed with oxycodone. Treated at [facility]. He had ulcer in the right leg, many years ago, which healed while he was admitted for 2 weeks with another medical issue. He has compression stockings but is unableto don them. His job requires extended sitting. He is morbidly obese and unable to walk very far. He is not a diabetic or a smoker. VNA:?? none ROS: Mr. Crouch is here today for evaluation of LLE venous ulcers. He has been tolerating the UNNA's boot well to LLE. He is wearing Carolon Dual layer compression stockings to RLE. He i waiting on a donning device for compression stockings since he has difficulty applying the stockings. He can remove the stockings without difficulty. He reports itching to his legs most days. He denies pain to his legs. He denies fever or chills. OBJECTIVE: Temp-97.0 P-63 BP-135/74 He is ambulatory to his visit today with use of a cane. The UNNAs boot was in place. He did have sliding the compression stocking to RLE. MEASUREMENTS (cm) RIGHT today RIGHT 11/09/15 RIGHT 11/06/15 RIGHT 11/02/15 RIGHT on 10/30/15 LEFT today LEFT 11/09/15 LEFT 11/06/15 LEFT 11/02/15 LEFT on 10/30/15 Calf girth 46.0 45.6 46.3 47.5 47.5 47.8 47.5 47.8 47.0 48.2 Ankle girth 28.0 29.0 27.2 27.0 27.5 29.6 29.2 28.6 28.3 29.2 Knee to heel length NE NE NE NE 48.0 NE NE NE NE 47.0 11/20/15 Left calf-47.5cm Left ankle-30.0cm Right calf-49.0cm Right ankle-27.0cm Wound pain: 0/10 Dressing removed: UNNAs boot and Mepilex dressing removed from LLE. Compression stocking removed from RLE. Moderate serosanguinous draingae from LLE. Odor: none ALL NEW: Wound #1 Location: Left distal, anterior/medial lower leg Periwound: dry, scaly skin Wound bed: 100% red granulation tissue Measurements: 0.6 cm x 0.2 cm x 0.1 cm Tunnelling: none Undermining: None. Wound #2-Largest wound Location: Left anterior, lateral lower leg Periwound: intact Wound bed: 100% red granulation tissue, post-debridement Measurements: 4.5 cm x 3.0 cm x 0.1 cm Tunnelling: none Undermining: none Wound #3 Location: Left lateral LE Periwound: intact Wound bed: 100% moist red tissue, post-debridement Measurements: 0.8 cm x 0.6 cm x 0.1 cm Tunnelling: none Undermining: none Wound #4 Location: Left lateral LE Periwound: intact Wound bed: 100% moist red tissue, post-debridement Measurements: 1.4 cm x 2.8 cm x 0.1 cm Tunneling: none Undermining: none Left lower extremity Treatment Analgesia Provided: Lidocaine jelly 2% Conservative Sharp Debridement: removing devitalized tissue with curette 1.35 cm sq Dry, scaly skin removed (B)LEs with forceps Bleeding: Slight bleeding Wounds cleansed with NS Pain Reassessment (0-10): 0/10 Caralon dual layer compression stockings applied to (R)LE Dressings/wraps applied: Unna's Boot applied to Left LE Mepilex AG foam 6x6 dressing was applied to cover wound beds. 1. Wrapped with Gelocast Impregnated Gel starting at just above the toes and working in a circular fashion with a 50% overlap to just below the knees. 2. Wrapped with Coban starting at just above the toes and working in a circular fashion with a 50% overlap and a 50% stretch to just below the knees Discussed with patient care instructions of wraps, patient verbalized understanding. Pt instructed that he needs to wear compression stockings on his (R)LE for appropriate level of compression (30-40 mmHg). Patient Goals: full healing A/P: Mr. Crouch is here today for F/U of venous stasis ulcers to LLE and venous insufficiency to RLE. The wounds have all decreased in size from previous visit. Will continue Compression wrap to LLE until wounds are healed and then transition to compression stockings LLE as well. Continue compression stocking to RLE. The wounds remain clean and are have evidence of granulation tissue. There are no new open areas to RLE. Will return to 2x/wk visits in [facility]. Pt awaiting donning device for stockings online. He will continue to follow twice weekly in [facility]. He agreed to POC. documented in this encounter Plan of Treatment Not on file documented as of this encounter Visit Diagnoses Diagnosis Venous stasis ulcer of left lower extremity documented in this encounter Care Teams Dispensing Optician Relationship Specialty Start Date End Date Cherise Staples MD [address] [place] [address] PCP - General 07/31/10 10/04/19 documented as of this encounter
--- OUTSIDE RECORDS SUMMARY | 2024-08-20 06:23 | XMS_ITS | Encounter Summary ---
Author Organization [facility] [place] [address] Care Team Providers Care Juke Box Servicer Name Role Phone Cherise Staples MD Primary Care Provider [phone] Reason for Referral * Diagnostic Test (Routine) - Closed Specialty Diagnoses / Procedures Referred By Carla soto Referred To Contact Radiology Diagnoses Chronic systolic heart failure SOB (shortness of breath) 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, angina presence unspecified, unspecified vessel or lesion type Procedures NM Myocardial Perfusion Scan Pharmacologic Carito Cabrera MD [facility] [place] [address] [place] [address] Referral ID Status Reason Start Date Expiration Date V isits Requested Visits Authorized [id number] Closed Specialty Service Requested 01/21/2017 01/21/2018 4 4 * Diagnostic Test (Routine) - Closed Specialty Diagnoses / Procedures Referred By Carla soto Referred To Contact Cardiology Diagnoses Chronic systolic heart failure SOB (shortness of breath) 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, angina presence unspecified, unspecified vessel or lesion type Procedures Echocardiogram Transthoracic(Leb) Carito Cabrera MD [facility] [place] [address] [facility] [place] [address] Referral ID Status Reason Start Date Expiration Date V isits Requested Visits Authorized [id number] Closed Specialty Service Requested 01/21/2017 01/21/2018 1 1 Reason for Visit * Reason Comments Coronary Artery Disease Cardiomyopathy Congestive Heart Failure * Consultation (Urgent) - Closed Specialty Diagnoses / Procedures Referred By Contac t Referred To Contact Cardiology Diagnoses CHF, recent new onset heart failure, abnormal ECHO w/new inferior hypokinesis, mitral regurgitation, and bi-artrial enlargement Cherise Staples MD [address] [place] [id number] [facility] [address] [place] [phone] Referral ID Status Reason Start Date Expiration Date V isits Requested Visits Authorized [id number] Closed Consult, Test & Treat Connection Center 01/15/2017 01/15/2018 1 1 Encounter Details Date Type Department Care Team (Late st Contact Info) Description 01/21/2017 4:20 PM EDT Office Visit Cardiology at [address] [phone] Slim Summers MD [facility] [place] [address] Chronic systolic heart failure; SOB (shortness of breath); 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, angina presence unspecified, unspecified vessel or lesion type Social History Tobacco Use Types Packs/Day [...] Sign Reading Time Taken Comments Blood Pressure 120/72 01/21/2017 3:58 PM EDT Pulse 84 01/21/2017 3:58 PM EDT Temperature - - Respiratory Rate - - Oxygen Saturation 95% 01/21/2017 3:58 PM EDT Inhaled Oxygen Concentration - - Weight 192.3 kg (424 lb) 01/21/2017 3:58 PM EDT per patient Height 177.8 cm (5' 10) 01/21/2017 3:58 PM EDT Body Mass Index 60.84 01/21/2017 3:58 PM EDT documented in this encounter Patient Instructions * Patient Instructions* Carito Cabrera - 01/21/2017 4:20 PM EDT Discontinue current aspirin 325 mg and start 81 mg, ???baby aspirin?? Discontinue Cardizem (diltiazem) Discontinue current metoprolol and Start Torol XL 200 mg daily. Continue rest of cardiac medications A nuclear stress test ( will schedule) Repeat echo on next visit in about one month. documented in this encounter Progress Notes * Slim Summers MD - 01/21/2017 4:20 PM EDT CARDIOLOGY STAFF ADDENDUM I have personally interviewed and examined the patient and reviewed appropriate data, including labs, ECGs and other diagnostic studies. I agree with the principal findings documented in the linked irish moss bleacher note from today by Dr. Cabrera. The assessment and plan were formulated in discussion with me. 71 yo M with obesity, CAD (hx PCI 10 years ago), PE (on coumadin), Afib (on coumadin), TOM (on CPAP), and recently CHF requiring an increase in lasix dose. A recent echo showed EF of 45% (previously normal) with significant increased LV wall thickness. He thinks his sx's are better after increasingthe lasix. Volume status on exam difficult due to body habitus but his JVP appears about 6-7 cm h20. EKG shows Afib with inferior Q waves (these inferior Q waves appear new on comparison to prior). We recommend: 1. CHF, with recent drop in EF to 45% and RV dysfunction - unclear why RV dysfunction (not on prior echo here). Could be related to pulmonary htn (obesity, TOM, left sided heart disease, hx of PE). - check nuclear stress to r/o ischemia as cause for drop in EF (if high risk findings will need C) - no change to lasix - increase BB and convert to long acting (stop dilt given the LV dysfunction and CHF) - continue JUSTIN - low salt diet, daily weights - repeat echo here to get a good look at RV function and also with strain (to look for apical sparing pattern given increased LV wall thickness). 2. Afib - Stop dilt, increase BB - Cont coumadin 3. Obesity Wt loss discussed 4. CAD Reduce ASA 81mg On statin, BB, and JUSTIN. R/o ischemia with stress as above in #1 Slim Summers MD, [facility] Staff Runstitching Machine Operator, Pager [phone] * Carito Cabrera - 01/21/2017 4:20 PM EDT [facility] New Patient Visit Note Patient Name: Lazaro Crouch Date of : 1945 Age: 71 y.o. PCP: Cherise Staples MD Presenting Diagnosis/Chief Complaint/ Reason for cardiology referral: heart failure management. Problem List: Patient Active Problem List Diagnosis [...] stasis ulcer of left lower extremity I83.029 History of Present Illness: Lazaro Crouch is a 71 y.o. male presents today for initial visit for newly diagnosed HF. The patient has history of CAD, had PCI 10 years ago, AF on AC with coumadin and rate control, HTN,morbid obesity Body mass index is 60.84 kg/(m^2)., TOM on C- PAP, history of provoked PE, IGT, OA. On January 15 he become progressively SOB which was diaphoresis and was taken to the [facility]. There ACS was r/o and he was diuresed, TTE showed LVEF 45% with global HK. BMP was unremarkable, BNP was > 350, TSH and LFTs were WNL. On discharge his furosemide was increased from 20 mg bid to 40 mg bid. Thepatient had one episode of mild SSCP ~ a week prior the episode of dyspnea. His LVEF was normal in 2014. At baseline the patient has limited physical actively level. He is limited due to his weigh/ body habitus and knee pains. 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 The patient denies exceptional chest pain, dizziness, palpitations, lightheadedness, syncope, DELGADO, SOB, PND, orthopnea. He has chronic pedal edema, chronic LE trophic changes and he is using compressing stockings. Past Medical History: Past Medical History: Diagnosis Date ??? ASCVD (arteriosclerotic cardiovascular disease) 1993 first MS 1992, stent to LAD in 2006 ??? Atrial fibrillation chronic anticoagulation ??? Chronic venous insufficiency ??? Chronic venous insufficiency 10/17/2015 ??? DVT (deep venous thrombosis) ??? HLD (hyperlipidemia) ??? Hypertension ??? Kidney stone ??? Nephrolithiasis hx of nephrostomy tube and posterior approach removal ??? TOM on CPAP ??? PE (pulmonary embolism) ??? Venous stasis ulcer of left lower extremity 10/17/2015 Review of Systems (as above otherwise): General: no fevers, chills, night sweats; no recent weight changes; no fatigue EENT: no changes in vision; Cardiovascular: as above Respiratory: +DELGADO, no cough, no wheeze GI: no abdominal pain; no nausea or vomiting Heme: no easy bruising or bleeding Neuro: no headaches; no numbness or tingling; no weakness No Known Allergies Current Home Medications: ??? acetaminophen (TYLENOL) 500 mg Tablet ??? potassium Citrate (UROCIT) 10 mEq (1,080 mg) Tablet Sustained Release ??? aspirin 325 mg Tablet ??? allopurinol (ZYLOPRIM) 300 mg Tablet ??? WARFARIN SODIUM (WARFARIN ORAL) ??? furosemide (LASIX) 40 mg Tablet ??? lisinopril (PRINIVIL;ZESTRIL) 20 mg Tablet ??? metoprolol tartrate (LOPRESSOR) 50 mg Tablet ??? DILTiazem (CARDIZEM CD) 120 mg Capsule, Sust. Release 24 hr ??? atorvastatin (LIPITOR) 80 mg Tablet ??? nitroGLYcerin (NITROSTAT) 0.4 mg Tablet, Sublingual Physical Exam: Vitals Office Visit from 07/30/2016 in Urology Temp 36.4 ??C (97.5 ??F) Heart Rate 92 BP 150/76 SpO2 95 % General: Morbidly obese. Appears chronically ill , in no acute distress CV: Distant heart sounds. Regular rate and rhythm, Normally split S1, S2, 2-3/ CHONG. no S3. JVP normal. Normal 1+ pedal edema. Chronic trophic changes below both knees. Pulmonary: Non labored breathing. Breath sounds throughout. No wheezes, rales or rhonchi Abdomen: Protuberant, soft and non-tender, no ascites. 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 Available cardiology studies: ECG: AF, inferior Q s, TTE 08/2015: 1. The left ventricular chamber size is normal. There is normal global left ventricular systolic function. There are no left ventricular segmental wall motion abnormalities. 2. Right ventricular chamber size, wall thickness, and systolic function are within normal limits. 3. The left atrium is mildly dilated. 4. No significant valvular abnormalities. 5. The estimated pulmonary artery systolic pressure is 42 mmHg. The estimated right atrial pressureis 15 mmHg. OSH TTE 01/13/2017. LVEF 45% with diffuse hypokinesis. LVH ~ 1.5 cm. Mildly dilated RV and severely reduced RV systolic function. Severe bi-atrial dilatations. Moderate MR, Assessment : 71 y.o. male with morbid obesity, AF, HTN, TOM, was found to have mildly reduced LVEF on admission to OSH for dyspnea. 1. Systolic heart failure, OSH LVEF 45%, global HK, EF was normal in 2015%. Difficult to assess his FC due to limited physical activity level. Etiology likely ischemic. As per patient his AF rate is controlled ( HR < 100), hence tachy CMP is less likely. TSH is WNL. Morbid obesity is probably contributing to the HF. Pt is not on guideline directed medical therapy for HF. 2. LVH ( 1.6 cm) cm is reported on OSH TTE). His BP reportedly was well controlled. A infiltrative disease is possible. 3. AF. On rate control strategy , AC with coumadin. Heart-healthy lifestyle choices were encouraged. We stressed that the patient should eat plenty of vegetables, fruits and whole grains and incorporate low-fat dairy products, poultry, fish, legumes, non-tropical vegetable oils and nuts into the diet. The patient should also limit intake of sweets, sugar-sweetened beverages and red meats. We also recommended the patient to engage in aerobic physical activity 3-4 times is possible. Plan Pharm MPI TTE on the next visit with strain assessment. Decrease ASA to 81 mg daily. Discontinue diltiazem. Switch to Toprol XL 200 mg. Continue lisinopril 10 mg. Continue Lipitor 80 mg Continue current furosemide ( 40 mg bid) Continue buttermaker anticoagulation with coumadin. Labs on next visit ( CBC, BMP, BNP) Next cardiology visit in 1 month in regular cardiology clinic. The patient was seen and discussed with Dr. Soares. Carito Cabrera MD Whipper Beater Pager # [phone] documented in this encounter Plan of Treatment Scheduled Orders Name Type Priority Associated Diagnoses Orde r Schedule Nuclear Pharmacologic Stress Cardiology Cardiac Services Routine Chronic systolic heart failure SOB (shortness of breath) 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, angina presence unspecified, unspecified vessel or lesion type Expected: 01/23/2017 (Approximate), Expires: 07/25/2017 documented as of this encounter Procedures Procedure Name Priority Date/Time Associated Diagnosis Comments EKG 12-LEAD Routine 01/21/2017 4:06 PM EDT Chronic systolic heart failure SOB (shortness of breath) documented in this encounter Results * (ABNORMAL) pro-Brain Natriuretic Peptide (02/17/2017 10:42 AM EDT) NT-proBNP 271(H) <=125 pg/mL [facility] Blood specimen (specimen) 02/17/2017 10:42 AM EDT 02/17/2017 10:53 AM EDT Narrative Resulting Agency Comment Spec In Lab Slim Summers MD CHEMISTRY ORDERAB LES [facility] [place] [address] * (ABNORMAL) Comprehensive metabolic panel (non-fasting) (02/17/2017 10:42 AM EDT) Glucose 129 65 - 199 mg/dL [facility] Comment:Diabetes: >=200 mg/d L plus symptoms Blood Urea Nitrogen 26(H) 10 - 20 mg/dL [facility] Creatinine 1.08 0.80 - 1.50 mg/dL [facility] Comment: Please note that the pediatric reference intervals supplied above were not validated at [facility]. Results from pediatric patients should be interpreted in conjunction to the patient's age, height and muscle mass. Sodium 142 135 - 145 mmol/L [facility] Potassium 4.5 3.5 - 5.0 mmol/L [facility] Comment: Please note: ??Patients with WBC >100,000 may have falsely elevated Potassium levels. ??For accurate Potassium quantification in these patients send serum separator tube (gold top) for subsequent determinations. ??Contact the Clinical Chemistry Laboratory if there are any questions. Chloride 105 98 - 107 mmol/L [facility] Carbon Dioxide 23 22 - 31 mmol/L [facility] Anion Gap 14 5 - 15 mmol/L [facility] Calcium 9.8 8.5 - 10.5 mg/dL [facility] Protein, Total 7.1 6.1 - 8.0 gm/dL [facility] Albumin 3.4 3.2 - 5.2 gm/dL [facility] Aspartate Aminotransferase 18 0 - 39 unit/L [facility] Alanine Aminotransferase 30 0 - 55 unit/L [facility] Alkaline Phosphatase 97 40 - 120 unit/L [facility] Bilirubin, Total 0.6 0.2 - 1.3 mg/dL [facility] Bilirubin, Direct 0.1 0.0 - 0.3 mg/dL [facility] Est Glomerular Filtration Rate >60 >=60 [facility] Comment: This estimated GFR (eGFR) [...] the following links into your internet browser. [email or web address] Blood specimen (specimen) 02/17/2017 10:42 AM EDT 02/17/2017 10:53 AM EDT Narrative Resulting Agency Comment Spec In Lab Slim Summers MD CHEMISTRY ORDERAB LES Performing Organization Address City/State/[facility] Co de Phone Number [facility] [place] [address] * NM Myocardial Perfusion Scan Pharmacologic (02/17/2017 [...] scanner. Slim Summers MD IMG NM ORDERABLES * ECHO COMPLETE W CONTRAST (02/17/2017 8:39 AM EDT) Anatomical Region Laterality Modality Other 02/17/2017 Narrative 02/17/2017 10:05 AM EDT Procedure: ?Transthoracic Echocardiogram Patient: ?RAINA LAZARO ?(Age): 1945(71y) Med Rec#: ? [id number] ?Sex: ?M ? Site Loc: ? [facility] ?Ht / Wt: ??178(cm)/186(kg) Pt. Loc: ?Echo Lab ?BSA: ?2.83 Study Date: ?? 02/17/2017 ?Pt. Type: Outpatient Tape: ? Referring: Slim Summers ([id number]) Reading: Logan Irizarry ([id number]) Roof Fixer: Eleonora Watt RDCS Interpreting Fellow: Amber Pulliam Interpreting Fellow: Lionel Hemphill ([id number]) Diagnosis: *ICD-10-PCS Dyspnea, unspecified (R06.00) *ICD-10-PCS Unspecified systolic (congestive) heart failure (I50.20) Rhythm: ? A-Fib BP: ? 151/105 HR: ? 87 SUMMARY: 1. Technically limited. ??Optison contrast was used to enhance endocardial definition. 2. The left ventricular chamber size is normal. ??Moderate concentric left ventricular hypertrophy is observed. ??The quantitative left ventricular ejection fraction by biplane Morales's method is 62%. ??There are no left ventricular segmental wall motion abnormalities. E' velocities at the septum and lateral wall are normal 14 cm/s and 12 cm/s, respectively, which is not consistent with amyloidosis. Image quality was not adequate for strain imaging. 3. The right ventricle is mildly dilated. ??Right ventricular global systolic function is probably normal. ??The estimated pulmonary artery systolic pressure is 48 mmHg. 4. The left atrium is mildly dilated. The right atrium is moderately dilated. 5. There is no hemodynamically significant valve disease. 6. There is moderate dilatation of the aortic root (4.4 cm). ??There is mild dilatation of the ascending aorta (4.1 cm). 7. When compared with prior echo 08-30-15 the aortic root is slightly increased in size (4.4 cm from 4 cm). ??The IVS is slightly thicker (1.5 cm -> 1.8 cm). Otherwise there were no significant changes. 8. See remainder of report for additional findings. Findings ? : Study Quality: ? Technically limited Left Ventricle: ? The left ventricular chamber size is normal. ?Moderate concentric left ventricular hypertrophy is observed. ?Basal septal hypertrophy is observed. ?There is no evidence of LVOT obstruction. ?No ventricular septal defect is visualized. ?There is normal global left ventricular systolic function. ?The quantitative left ventricular ejection fraction by biplane Morales's method is 62%. ?There are no left ventricular segmental wall motion abnormalities. ?Left sided filling pressure could not be assessed by Doppler. Left Atrium: ? The left atrium is mildly dilated. 41 ml/m2. ?No atrial septal defect is visualized. Right Ventricle: ? The right ventricle is mildly dilated. ?Right ventricular global systolic function is probably normal. ?The estimated pulmonary artery systolic pressure is 48 mmHg. ?The estimated right atrial pressure is 8 mmHg. Right Atrium: ? The right atrium is moderately dilated. Aortic Valve: ? The aortic valve is not well visualized. ?The aortic valve is probably tricuspid. ?The aortic valve leaflets are mildly thickened. ?The right coronary cusp of the aortic valve is thickened. ?There is no evidence of aortic valve stenosis. ?There is no evidence of aortic regurgitation. Mitral Valve: ? The mitral valve appears normal in structure and function. ?There is no evidence of mitral valve leaflet prolapse. ?There is mild (1+/4+) mitral regurgitation present. Tricuspid Valve: ? The tricuspid valve appears normal in structure and function. ?There is mild (1+/4+) tricuspid regurgitation present. Pulmonic Valve: ? The pulmonic valve is not well visualized. Pericardium: ? The pericardium appears normal and there is no evidence of a pericardial effusion. Aorta: ? There is moderate dilatation of the aortic root. ?There is mild dilatation of the ascending aorta. ?There is no evidence of coarctation of the aorta. Pulmonary Artery: ? The main pulmonary artery is not well visualized. Venous: ? The inferior vena cava is poorly visualized. Misc: ? There is no hemodynamically significant valve disease. ?See remainder of report for additional findings. ?Two-dimensional echo, spectral Doppler and color Doppler performed. ?Optison contrast (one 3 ml vial) was used to enhance endocardial definition. Excess contrast was discarded. Chambers 2D ?Value ?Units (Range) ? IVSd (2D) ? 2 ?cm ? LVPWd (2D) ?1.4 ?cm ? IVS:LVPW ratio (2D) 1.4 ?ratio ? LVIDd (2D) ?4.4 ?cm ? LVIDs (2D) ?3.3 ?cm ? LVIDd (2D) index ?1.6 ?cm/m2 ? LVIDs (2D) index ?1.2 ?cm/m2 ? LV FS (2D) ?25 ? % ? EF Teichholz (2D) ?? 50 ? % ? Ao root diameter (2D4.4 ?cm (2.1 - 3.6) ? Ascending Ao ?4.1 ?cm (2 - 3.5) ? Volumes/Mass ?Value ?Units (Range) ? LA Area 4 CH ?33 ? cm2 (<21) ? LA ESV BP (A/L) inde41.4 ? ml/m2 ? RA AREA 4CH ? 27 ? cm2 ? LA ESV SP 4CH (MOD) 121.5 ?ml ? LA ESV SP 2CH (MOD) 84 ? ml ? LA ESV BP (MOD) inde41 ? ml/m2 ? LV ESV SP 4CH (MOD) 89.1 ? ml ? LV EDV BP ? 217 ?ml ? LV ESV BP ? 82.5 ? ml ? BP EF (MOD) ? 62 ? % ? LV mass (2D) ?325.5 ?g ? LV mass (2D) index ??115 ?g/m2 ? Diastolic/Systolic Function ?Value ?Units (Range) ? MV E-wave Vmax ?1.1 ?m/sec ? LV septal e' Vmax ?? 0.1 ?m/sec ? LV lateral e' Vmax ??0.1 ?m/sec ? LV average e' Vmax ??0.1 ?m/sec ? LV E:e' septal ratio7.8 ?ratio ? LV E:e' lateral rati9.1 ?ratio ? LV average E:e' rati8.4 ?ratio ? Tricuspid Valve ?Value ?Units (Range) ? TR Vmax ? 3.2 ?m/sec ? TR peak gradient ?40 ? mmHg ? RAP ? 8 ?mmHg ? RVSP ?48 ? mmHg ? Measurement Trending Name ? 02/17/2017 ?08/30/2015 ? LV EDV BP ?216.98 151 LVIDd (2D) ? 4.39 5.8 LV ESV BP ?82.5 61 LVIDs (2D) ? 3.3 4.6 Wall Motion: Segment Name ?Rest ? Base-Anteroseptal ?? Normal ? Base-Anterior ? Normal ? Base-Anterolateral ??Normal ? Base-Posterolateral Normal ? Base-Inferior ? Normal ? Base-Inferoseptal ?? Normal ? Mid-Anteroseptal ?Normal ? Mid-Anterior ?Normal ? Mid-Anterolateral ?? Normal ? Mid-Posterolateral ??Normal ? Mid-Inferior ?Normal ? Mid-Inferoseptal ?Normal ? Keene-Septal ? Normal ? Keene-Anterior ? Normal ? Keene-Lateral ?Normal ? Keene-Inferior ? Normal ? Keene-Tip ?Normal ? This report has been electronically signed by: Logan Irizarry MD ? 02/17/2017 10:04:56 Images reviewed and interpretation verified [facility] Cardiac Ultrasound Laboratory Procedure Note Logan Irizarry MD - 02/17/2017 Procedure: Transthoracic Echocardiogram Patient: RAINA WILLIS DOB(Age): 1945(71y) Med Rec#: [id number] Sex: M Site Loc: [facility] Ht / Wt: 178(cm)/186(kg) Pt. Loc: Echo Lab BSA: 2.83 Study Date: 02/17/2017 Pt. Type: Outpatient Tape: Referring: Slim Sumemrs ([id number]) Reading: Logan Irizarry ([id number]) Roof Fixer: Eleonora Watt [facility] Interpreting Fellow: Amber Pulliam Interpreting Fellow: Lionel Hemphill ([id number]) Diagnosis: *ICD-10-PCS Dyspnea, unspecified (R06.00) *ICD-10-PCS Unspecified systolic (congestive) heart failure (I50.20) Rhythm: A-Fib BP: 151/105 HR: 87 SUMMARY: 1. Technically limited. Optison contrast was used [...] See remainder of report for additional findings. Findings : Study Quality: Technically limited Left [...] no left ventricular segmental wall motion abnormalities. Left sided filling pressure could not be assessed by Doppler. Left Atrium: The left atrium is mildly dilated. 41 ml/m2. No atrial septal defect is visualized. Right Ventricle: The right ventricle is mildly dilated. Right ventricular global systolic function is probably normal. The estimated pulmonary artery systolic pressure is 48 mmHg. The estimated right atrial pressure is 8 mmHg. Right Atrium: The right atrium is moderately dilated. Aortic Valve: The aortic valve is not well visualized. The aortic valve is probably tricuspid. The aortic valve leaflets are mildly thickened. The right coronary cusp of the aortic valve is thickened. There is no evidence of aortic valve stenosis. There is no evidence of aortic regurgitation. Mitral Valve: The mitral valve appears normal in structure and function. There is no evidence of mitral valve leaflet prolapse. There is mild (1+/4+) mitral regurgitation present. Tricuspid Valve: The tricuspid valve appears normal in structure and function. There is mild (1+/4+) tricuspid regurgitation present. Pulmonic Valve: The pulmonic valve is not well visualized. Pericardium: The pericardium appears normal and there is no evidence of a pericardial effusion. Aorta: There is moderate dilatation of the aortic root. There is mild dilatation of the ascending aorta. There is no evidence of coarctation of the aorta. Pulmonary Artery: The main pulmonary artery is not well visualized. Venous: The inferior vena cava is poorly visualized. Misc: There is no hemodynamically significant valve disease. See remainder of report for additional findings. Two-dimensional echo, spectral Doppler and color Doppler performed. Optison contrast (one 3 ml vial) was used to enhance endocardial definition. Excess contrast was discarded. Chambers 2D Value Units (Range) IVSd (2D) 2 cm LVPWd (2D) 1.4 cm IVS:LVPW ratio (2D) 1.4 ratio LVIDd (2D) 4.4 cm LVIDs (2D) 3.3 cm LVIDd (2D) index 1.6 cm/m2 LVIDs (2D) index 1.2 cm/m2 LV FS (2D) 25 % EF Teichholz (2D) 50 % Ao root diameter (2D4.4 cm (2.1 - 3.6) Ascending Ao 4.1 cm (2 - 3.5) Volumes/Mass Value Units (Range) LA Area 4 CH 33 cm2 (<21) LA ESV BP (A/L) inde41.4 ml/m2 RA AREA 4CH 27 cm2 LA ESV SP 4CH (MOD) 121.5 ml LA ESV SP 2CH (MOD) 84 ml LA ESV BP (MOD) inde41 ml/m2 LV ESV SP 4CH (MOD) 89.1 ml LV EDV BP 217 ml LV ESV BP 82.5 ml BP EF (MOD) 62 % LV mass (2D) 325.5 g LV mass (2D) index 115 g/m2 Diastolic/Systolic Function Value Units (Range) MV E-wave Vmax 1.1 m/sec LV septal e' Vmax 0.1 m/sec LV lateral e' Vmax 0.1 m/sec LV average e' Vmax 0.1 m/sec LV E:e' septal ratio7.8 ratio LV E:e' lateral rati9.1 ratio LV average E:e' rati8.4 ratio Tricuspid Valve Value Units (Range) TR Vmax 3.2 m/sec TR peak gradient 40 mmHg RAP 8 mmHg RVSP 48 mmHg Measurement Trending Name 02/17/2017 08/30/2015 LV EDV BP 216.98 151 LVIDd (2D) 4.39 5.8 LV ESV BP 82.5 61 LVIDs (2D) 3.3 4.6 Wall Motion: Segment Name Rest Base-Anteroseptal Normal Base-Anterior Normal Base-Anterolateral Normal Base-Posterolateral Normal Base-Inferior Normal Base-Inferoseptal Normal Mid-Anteroseptal Normal Mid-Anterior Normal Mid-Anterolateral Normal Mid-Posterolateral Normal Mid-Inferior Normal Mid-Inferoseptal Normal [place]-Septal Normal [place]-Anterior Normal [place]-Lateral Normal [place]-Inferior Normal [place]-Tip Normal This report has been electronically signed by: Logan Irizarry MD 02/17/2017 10:04:56 Images reviewed and interpretation verified [facility] Slim Summers MD ECHO ORDERABLES * EKG 12 Lead (01/21/2017 4:06 PM EDT) Ventricular rate 98 BPM MUSE SYSTEM QRS Duration 104 ms MUSE SYSTEM Q-T Interval 362 ms MUSE SYSTEM QTC Calculated (Bezet) 462 ms MUSE SYSTEM Calculated R [place] -21 degrees MUSE SYSTEM Calculated T [place] 44 degrees MUSE SYSTEM INTERPRETATION Atrial fibrillation Inferior infarct , age undetermined Abnormal ECG When compared with ECG of 30-AUG-2015 01:28, Inferior infarct is now Present Confirmed by MD KIERAN, TAWANDA ([id number]) on 01/22/2017 8:51:09 AM MUSE SYSTEM 01/21/2017 4:06 PM EDT 01/22/2017 8:51 AM EDT Slim Summers MD ECG ORDERABLES MUSE SYSTEM documented in this encounter Visit Diagnoses Diagnosis Chronic systolic heart failure SOB (shortness of breath) Shortness of breath 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, angina presence unspecified, unspecified vessel or lesion type Chronic systolic heart failure SOB (shortness of breath) Shortness of breath 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
--- OUTSIDE RECORDS SUMMARY | 2024-08-20 06:23 | XMS_ITS | Encounter Summary ---
Author Organization [facility] Address [facility] [place] [address] Care Team Providers Care Sprinkler Inspector Name Role Phone Cherise Staples MD Primary Care Provider [phone] Reason for Visit * Reason Comments Abdominal Pain * Auth/Cert - Closed Specialty Diagnoses / Procedures Referred By Carla soto Referred To Contact Diagnoses Cholecystitis Pain Atrial fibrillation, unspecified cholangoangitis Procedures ERCP Referral ID Status Reason Start Date Expiration Date Visits Re quested Visits Authorized [id number] Closed 1 1 Encounter Details Date Type Department Care Team (Latest Contact Info) Description 08/30/2015 12:22 AM EST - 09/02/2015 1:44 PM [facility] Hospital Encounter [address] [place] [address] Marla May MD [facility] [place] [address] Delroy Chu MD [facility] [place] [address] Pain; Atrial fibrillation, unspecified; Abdominal pain, RUQ (right upper quadrant); Preop testing; Cholecystitis; Acute cholecystitis Discharge Disposition: Home Social History Tobacco Use [...] Sign Reading Time Taken Comments Blood Pressure 120/65 09/02/2015 12:29 PM EST Pulse 87 09/02/2015 8:59 AM EST Temperature 36.4 ??C (97.5 ??F) 09/02/2015 8:59 AM ES T Respiratory Rate 18 09/02/2015 8:59 AM EST Oxygen Saturation 93% 09/02/2015 8:59 AM EST Inhaled Oxygen Concentration - - Weight 172.6 kg (380 lb 8.2 oz) 015 12:24 AM EST Height 177.8 cm (5' 10) 08/30/2015 1:13 PM EST Body Mass Index 54.6 08/30/2015 1:13 PM EST documented in this encounter Discharge Summaries * Elizabeth Heredia MD - 09/02/2015 10:21 AM EST Discharge Summary Patient Name: Jaime Crouch Patient Age: 69 y.o. Language: Somali Race: White Ethnicity: Not nor Admit date: 08/30/2015 Discharge date and time: 09/02/2015 Attending Physician: Delroy Chu MD Discharge Physician: Delroy Chu MD Inpatient Provider Contact Information: For questions regarding this document or issues relating to this hospitalization on the Medical Service, please contact your inpatient physician through the [facility] [employer]aporative Cooler Installer . Issues afterhours and on weekends will be handled by the staff on-call. Discharge Diagnoses (Hospital Problems) and Secondary Diagnoses (Chronic Problems): Active Hospital Problems Diagnosis ??? Cholangitis ??? Suspected cholecystitis vs cholangitis Resolved Hospital Problems Diagnosis Date Resolved No resolved problems to display. Active Non-Hospital Problems Diagnosis ??? CAD ??? Phimosis ??? Nephrolithiasis Operations/Major Procedures: Operations: Procedure(s): ERCP 08/30/2015 Procedure(s): ERCP 08/30/2015 Procedure(s): LAPAROSCOPIC CHOLECYSTECTOMY 09/01/2015 History of Presentation (from admission H&P): Mr. Jaime Crouch is a 69 y.o. gentleman with multiple comorbidities including chronic a-fib, CAD, HTN, HLD and prior cholangitis episode who presents now with a gallbladder attack. He states that this morning he had some RUQ/epigastric pain, he had some associated nausea but denied any emesis, fevers, chills, change in bowel or urinary habits. He reports that he was able to run his errands however the pain got progressively worse and became constant, which prompted him to see care at the [facility] ED. There he was noted to have a WBC of 18, elevated LFTs, amylase and lipase. A CT scan was obtained which noted multiple gallstones. Pt was transferred to [facility] for further evaluation and care. Of note pt was admitted in September of 2014 for cholangitis, at that time he was treated with a 7 daycourse of zosyn, and underwent an ERCP with sphincterotomy. Hospital Course: The patient was evaluated in the ED and admitted to the acute care surgery service. The patient wasmade NPO and underwent an ERCP later on hospital day 1 but no stone was found in the common bile duct. After the ERCP, the patients condition improved with rapid resolution of symptoms and improvements in lab values, suggesting spontaneous passage of a common bile duct stone. On HD3, the patient underwent a laparoscopic cholecystectomy without complications. On POD1, the patient was doing well. He was afebrile with stable vital signs. He was tolerating PO diet and his pain was well controlled. He was ambulating and passing flatus. On HD4 (POD1), the patient was discharged home in a stable cond ition. Vital Signs at Discharge: BP: 143/69 mmHg, Heart Rate: 87, Temp: 36.4 ??C (97.5 ??F), Resp: 18, BMI (Calculated): 55.1 Height: 177.8 cm (5' 10) (08/30/15 1313) Weight - Scale: (!) 172.6 kg (380 lb 8.2 oz) (09/01/15 0024) Important Studies and Lab Data: Labs: Last 3 wbc, hgb, hct plt Recent Labs 09/02/15 0210 09/01/15 0401 08/31/15 0934 WBC 13.3* 9.1 10.9* HGB 13.2* 13.3* 13.5* HCT 41.7 41.1 42.3 PLATELET 270 220 258 Last 3 Lytes Recent Labs 09/02/15 0210 09/01/15 0401 08/31/15 0935 NA 141 141 145 K 4.1 3.8 3.9 CL 101 104 105 CO2 26 27 26 BUN 16 15 18 CREATININE 0.90 0.86 0.92 Discharge Conditions/Prognosis: Stable Discharge to: Home Updated Allergies/ADRs: No Known Allergies Immunizations Given this Hospitalization: There is no immunization history on file for this patient. Discharge Medications: Your Medications New Medications Dose Details acetaminophen 500 mg Tab Commonly known as: TYLENOL Take 2 tablets by mouth every 6 hours. 1000 mg Quantity: 30 tablet Refills: 1 HYDROmorphone 2 mg Tab Commonly known as: DILAUDID Take 1-2 tablets by mouth every 4 hours as needed for Pain. 2-4 mg Quantity: 50 tablet Refills: 0 senna-docusate 8.6-50 mg Tab Commonly known as: PERICOLACE Take 1 tablet by mouth daily. 1 tablet Quantity: 60 tablet Refills: 11 Continued medications with new dosing Dose Details potassium Citrate 10 mEq (1,080 mg) Tbsr Commonly known as: UROCIT TAKE 2 TABLETS BY MOUTH 3 TIMES A DAY What changed: See the new instructions. Quantity: 540 tablet Refills: 3 Continued medications, unchanged Dose Details allopurinol 300 mg Tab Commonly known as: ZYLOPRIM Take 300 mg by mouth daily. 300 mg Refills: 0 aspirin 325 mg Tab Take 162.5 mg by mouth daily. 162.5 mg Refills: 0 atorvastatin 80 mg Tab Commonly known as: LIPITOR Take 80 mg by mouth daily. 80 mg Refills: 0 DILTiazem 120 mg Cp24 Commonly known as: CARDIZEM CD Take 2 capsules by mouth daily. 240 mg Quantity: 30 capsule Refills: 1 furosemide 40 mg Tab Commonly known as: LASIX Take 0.5 tablets by mouth 2 times daily. 20 mg Quantity: 30 tablet Refills: 12 lisinopril 20 mg Tab Commonly known as: PRINIVIL;ZESTRIL Take 1 tablet by mouth daily. 20 mg Quantity: 30 tablet Refills: 0 meTOPROLOL tartrate 50 mg Tab Commonly known as: LOPRESSOR Take 1 tablet by mouth 2 times daily. 50 mg Quantity: 60 tablet Refills: 1 nitroGLYcerin 0.4 mg Subl Commonly known as: NITROSTAT Place 0.4 mg under the tongue every 5 minutes as needed for Chest pain. 0.4 mg Refills: 0 WARFARIN ORAL Take by mouth. Pt takes 7.5mg daily Refills: 0 Smoking Status at Discharge: History Smoking status ??? Former Smoker Smokeless tobacco ??? Never Used Last Set of Vitals and range of vitals over past 24 hours: Last value Range last 24 hrs Temperature Temp: 36.4 ??C (97.5 ??F) Temp: [36.4 ??C (97.5 ??F)-37.1 ??C (98.8 ??F)] Heart Rate Heart Rate: 87 Heart Rate: [86-128] Blood Pressure BP: 143/69 mmHg BP: (143-162)/(69-104) Respiratory Rate Resp: 18 Resp: [14-38] SpO2 SpO2: 93 % SpO2: [92 %-99 %] Code Status at Discharge: Full Code Instructions Given to Patient at Discharge: Patient Instructions Instructions following Laparoscopic Cholecystectomy Wound Care: Keep dressings/Band-Aids on incisions for the next 2 days. Do not get dressings wet. Ifthey become wet or soaked with drainage you may change them with fresh ones as needed. If there arepieces of tape directly on the incision (steri-strips or butterflys), please leave them on until they fall off on their own. You may trim them back as they begin to peel up. After 2 days you may remove dressing/Band-Aids and leave open to air. You may now shower and get incisions wet. Pat dry immediately following. Do not scrub them vigorously for the next 2-3 weeks. Do not soak incision(s) under water for the next 2 weeks (i.e. soaking in bath or swimming) as this maypromote a wound infection. Your stitches will dissolve and do not need to be removed. Activity: No heavy lifting more than 10-15 pounds for the next 2 weeks, then you may gradually liftheavier objects as tolerated by discomfort. Otherwise activity as tolerated by your comfort level. Call Doctor for: Please call if you notice worsening redness or drainage from incision(s) lasting longer than 5 days after your surgery, any foul-smelling drainage from the incision, pain not controlled by pain medications, persistent nausea or vomiting, or for any fevers greater than 101.3 F. The number for questions is [phone] before 5 PM weekdays and [phone] after 5 PM and weekends. Pain Medication: No driving for 8 hours after any dose of opioid pain medication if one was prescribed for you. You may use ibuprofen (motrin, advil) in addition to this medication if your pain is not totally controlled. Follow-up: Follow-up appointment will be scheduled with the trauma team in 4 weeks. Appointment will be mailed to you. Please call [phone] (clinic number for appointments) to confirm date and time of your appointment if you do not receive your apointment in 3 weeks. General Instructions None Provider Contact Information: CHERISE STAPLES MD BOX [facility] [address] Discharge References/Attachments None documented in this encounter Discharge Instructions * Patient Instructions* Elizabeth Heredia MD - 09/02/2015 11:43 AM EST Instructions following Laparoscopic Cholecystectomy Wound Care: Keep dressings/Band-Aids on incisions for the next 2 days. Do not get dressings wet. Ifthey become wet or soaked with drainage you may change them with fresh ones as needed. If there arepieces of tape directly on the incision (steri-strips or butterflys), please leave them on until they fall off on their own. You may trim them back as they begin to peel up. After 2 days you may remove dressing/Band-Aids and leave open to air. You may now shower and get incisions wet. Pat dry immediately following. Do not scrub them vigorously for the next 2-3 weeks. Do not soak incision(s) under water for the next 2 weeks (i.e. soaking in bath or swimming) as this maypromote a wound infection. Your stitches will dissolve and do not need to be removed. Activity: No heavy lifting more than 10-15 pounds for the next 2 weeks, then you may gradually liftheavier objects as tolerated by discomfort. Otherwise activity as tolerated by your comfort level. Call Doctor for: Please call if you notice worsening redness or drainage from incision(s) lasting longer than 5 days after your surgery, any foul-smelling drainage from the incision, pain not controlled by pain medications, persistent nausea or vomiting, or for any fevers greater than 101.3 F. The number for questions is [phone] before 5 PM weekdays and [phone] after 5 PM and weekends. Pain Medication: No driving for 8 hours after any dose of opioid pain medication if one was prescribed for you. You may use ibuprofen (motrin, advil) in addition to this medication if your pain is not totally controlled. Follow-up: Follow-up appointment will be scheduled with the trauma team in 4 weeks. Appointment will be mailed to you. Please call [phone] (clinic number for appointments) to confirm date and time of your appointment if you do not receive your apointment in 3 weeks. documented in this encounter Medications at Time of Discharge Medication Sig Dispensed Refills Start Date End Date allopurinol (ZYLOPRIM) 300 mg Tablet Take 300 [...] 6 hours. 30 tablet 1 09/02/2015 11/03/2017 HYDROmorphone (DILAUDID) 2 mg Tablet Take 1-2 tablets by mouth every 4 hours as needed for Pain. 50 tablet 0 09/02/2015 09/25/2015 senna-docusate (PERICOLACE) 8.6-50 mg Tablet Take 1 tablet by mouth daily. 60 tablet 11 09/02/2015 11/02/2015 potassium Citrate (UROCIT) 10 mEq (1,080 mg) Tablet Sustained Release TAKE 2 TABLETS BY MOUTH 3 TIMES A DAY 540 tablet 3 05/08/2015 02/17/2017 aspirin 325 mg Tablet Take 162.5 mg by mouth daily. 01/21/2017 WARFARIN SODIUM (WARFARIN ORAL) Take by mouth daily. As Directed 06/15/2018 furosemide (LASIX) 40 mg Tablet Take 0.5 tablets by mouth 2 times daily. 30 tablet 12 09/20/2014 02/17/2017 metoprolol tartrate (LOPRESSOR) 50 mg Tablet Take 1 tablet by mouth 2 times daily. 60 tablet 1 09/20/2014 01/21/2017 DILTiazem (CARDIZEM CD) 120 mg Capsule, Sust. Release 24 hr Take 2 capsules by mouth daily. 30 capsule 1 09/20/2014 01/21/2017 documented as of this encounter Progress Notes * Hira Mandujano RN - 09/02/2015 1:29 PM EST Patient Name: Jaime Crouch Patient Age: 69 y.o. Birthdate: 1945 Admit date: 08/30/2015 Attending Physician: Delroy Chu MD Patient cleared for discharge by MD's. D/C teaching completed with patient, and son. No questions at this time. Pt sent home with all necessary supplies. Pt d/c'd home with and son at 1330 via wheelchair. * Kandis Tapia RN - 09/01/2015 1:10 PM EST Jaime was transported to the OR at around 0815. Report was given via telephone to OR at around 0800. Pt was maintained on NPO since midnight. * Fernando Thomas RN - 09/01/2015 10:57 AM EST 1100: Station prepared, equipment checked, chart reviewed. RN to document initial assessment and then interval changes heretofor. 1238: Pt to PACU placed on monitor, alarms set and are appropriate for Pt. Admission assessment on-going; see PACU phase one flow sheet . 1238: Xray paged 1240: ICU bed requested through Katy Mendez [employer] 1252: Hold LR at [address] Yossi Puga 1258: Xray paged 1300: ABG drawn from Maren 1305: Xray completed 1315: Patient is ready for visitors. ICU waiting room called. 1316: Family in to visit 1330: Family steps out 1332: BLUE supported over pillows 1335: ICU Fellow at bedside 1344: Bed assignment received ICU9 1345: JACOB Marquis, called to request she give basic report to RN of ICU an this RN will give intra-operative report. 1400: Patient meets criteria for discharge from PACU. Vital signs are within normal limits; Patientis awake and alert. Report called to JACOB Reyes, and patient placed on Boarder Status awaiting Transport. 1402: [employer] called to supply additional resources to transport patient to ICU * Elizabeth Heredia MD - 09/01/2015 9:30 AM EST Surgery Progress Note S: No complaints this AM. Ready to undergo his operation O: ??? sodium chloride 0.9 % 5 mL Intravenous Q12H ### ??? [NOV Hold] ampicillin-sulbactam 3 g Intravenous Q6H KYLEE ### ??? [NOV Hold] atorvastatin 80 mg Oral QPM ### ??? [NOV Hold] DILTiazem 60 mg Oral Q6H KYLEE ### ??? [NOV Hold] lisinopril 20 mg Oral Daily ### ??? [NOV Hold] meTOPROLOL tartrate 50 mg Oral BID ### ??? sodium chloride 0.9 % 5 mL Intravenous BID ### ??? [NOV Hold] famotidine 20 mg Oral BID ### Or ??? [NOV Hold] famotidine 20 mg Intravenous BID ### ??? [NOV Hold] furosemide 20 mg Oral BID ### ??? [NOV Hold] allopurinol 300 mg Oral Daily ### ??? [Nov] potassium Citrate 20 mEq Oral TID ### ??? lactated ringers infusion 1,000 mL 1,000 mL Intravenous Continuous ### ??? [NOV Hold] lactated ringers infusion 50 mL/hr Intravenous Continuous ### fentaNYL Citrate (PF) OR fentaNYL Citrate (PF), HYDROmorphone, nalOXone, ondansetron, promethazine, prochlorperazine, BUpivacaine (PF), sodium chloride 0.9 %, lidocaine, nalOXone, [Nov] ondansetron OR [Nov] ondansetron, [Nov] HYDROmorphone Last value Range last 24 hrs Temperature Temp: 36.5 ??C (97.7 ??F) Temp: [36.3 ??C (97.3 ??F)-36.8 ??C (98.2 ??F)] Heart Rate Heart Rate: 85 Heart Rate: [67-89] Blood Pressure BP: (!) 144/97 mmHg BP: (141-160)/(67-106) Respiratory Rate Resp: 24 Resp: [17-24] SpO2 SpO2: 90 % SpO2: [88 %-96 %] I/Os: Intake/Output Summary (Last 24 hours) at 09/01/15 1230 Last data filed at 09/01/15 1040 Gross per 24 hour Intake 2117 ml Output 1900 ml Net 217 ml I/O last 1 completed shift: In: 284 [P.O.:60; IV Piggyback:224] Out: 700 [Urine:700] Physical Exam: Neuro: NAD, AOx3, sensation in tact to light touch b/l UE/LE/trunk HEENT: PERRL CV: RRR Pulm: adequate effort CPAP GI: soft, NT, ND MSK: 5/5 b/l UE/LE strength PV: b/l UE/LE warm and well-perfused Integ: no lesions or rashes on b/l UE/LE/trunk Labs: Last 3 wbc, hgb, hct plt Recent Labs 09/01/15 0401 08/31/15 0934 08/30/15 0125 WBC 9.1 10.9* 25.7* HGB 13.3* 13.5* 14.2 HCT 41.1 42.3 44.3 PLATELET 220 258 260 Last 3 Lytes Recent Labs 09/01/15 0401 08/31/15 0935 08/31/15 0934 NA 141 145 142 K 3.8 3.9 3.6 CL 104 105 105 CO2 27 26 26 BUN 15 18 18 CREATININE 0.86 0.92 0.91 Last 3 LFTs Recent Labs 09/01/15 0401 08/31/15 0935 08/30/15 0125 AST 109* 117* 159* ALT 123* 136* 167* ALKPHOS 238* 262* 254* BILITOT 3.2* 5.3* 4.1* BILIDIR 2.5* 4.7* 3.7* Last Ca, Mg, Phos Recent Labs 09/01/15 0401 CALCIUM 9.0 PHOS 2.0* Last 3 Coags Recent Labs 08/30/15 1830 08/30/15 1555 08/30/15 0125 PT 19.3* 22.2* 26.1* INR 1.6* 1.9* 2.3* PTT -- -- 33 Microbiology 08/29 OSH UCx >100,000 E. Coli 08/29 OSH BCx GNR Radiology none A/P: Jaime Crouch is a 69 y.o. male Day of Surgery s/p ERCP for ascending cholangitis vs. Acutecholecystitis with choledocholithiasis in the setting of a UTI and positive blood cultures. Going to OR today for lap saadia Neuro: LOLY Pain: well controlled on current regimen CV: LOLY Pulm: pulmonary toilet with IS GI: RUQ pain - ascending cholangitis vs. Acute cholecystitis with choledocholithiasis - lap saadia 09/01 FEN: CLD NPO 0000 LR@50 ID: leukocytosis, bacteremia - sepsis - lactate resolved 08/30, continue ABx and IVF Heme: LOLY : E. Coli UTI - Zosyn/vanc MSK: OOB, PT/OT PV: LOLY Disp: 4w Full Code ELIZABETH HEREDIA MD 09/01/2015 12:30 PM Associated attestation - Jay Chambers MD - 09/01/2015 5:09 PM EST Attending Attestation Please see Dr. Heredia's note for details of the patient history of presentation and data. I have discussed, reviewed and agree with the documented History, Physical findings, Assessment and Plan of care. Doing well. TB now appropriately decreased. No overnight events. To OR this am for lap, poss open cholecystectomy. Abd NTTP. I have examined the patient myself and personally reviewed all studies. In addition, I certify thatI am a D-H credentialed attending provider with admitting privileges and that the patient meets or has met medical necessity to require an inpatient IPI level of care meeting a minimum of two midnights or is on the [facility] inpatient only procedure list (status C) due to: acute injury, physiologic or anatomic insult requiring close monitoring; IV fluid resuscitaiton and/or IV medication; lab/imaging evaluation and has potential for urgent operative intervention. JAY CHAMBERS MD 09/01/2015 * Juana Valenzuela MD - 08/31/2015 2:19 PM EST Surgery Progress Note S: 1. ERCP showed no stones in CBD 2. CPAP ON O: ??? ampicillin-sulbactam 3 g Intravenous Q6H KYLEE ### ??? atorvastatin 80 mg Oral QPM ### ??? DILTiazem 60 mg Oral Q6H KYLEE ### ??? lisinopril 20 mg Oral Daily ### ??? meTOPROLOL tartrate 50 mg Oral BID ### ??? sodium chloride 0.9 % 5 mL Intravenous BID ### ??? famotidine 20 mg Oral BID ### Or ??? famotidine 20 mg Intravenous BID ### ??? furosemide 20 mg Oral BID ### ??? allopurinol 300 mg Oral Daily ### ??? potassium Citrate 20 mEq Oral TID ### ??? [START ON 09/01/2015] lactated ringers infusion 50 mL/hr Intravenous Continuous ### sodium chloride 0.9 %, lidocaine, nalOXone, ondansetron OR ondansetron, HYDROmorphone Last value Range last 24 hrs Temperature Temp: 36.8 ??C (98.2 ??F) Temp: [36.5 ??C (97.7 ??F)-37.9 ??C (100.2 ??F)] Heart Rate Heart Rate: 86 Heart Rate: [86-114] Blood Pressure BP: 141/89 mmHg BP: (105-163)/(52-92) Respiratory Rate Resp: 18 Resp: [18-29] SpO2 SpO2: 94 % SpO2: [92 %-97 %] I/Os: Intake/Output Summary (Last 24 hours) at 08/31/15 1419 Last data filed at 08/31/15 1300 Gross per 24 hour Intake 3259 ml Output 3325 ml Net -66 ml I/O last 1 completed shift: In: 377 [I.V.:377] Out: 1525 [Urine:1525] Physical Exam: Neuro: NAD, AOx3, sensation in tact to light touch b/l UE/LE/trunk HEENT: PERRL CV: RRR Pulm: adequate effort CPAP GI: soft, NT, ND MSK: 5/5 b/l UE/LE strength PV: b/l UE/LE warm and well-perfused Integ: no lesions or rashes on b/l UE/LE/trunk Labs: Last 3 wbc, hgb, hct plt Recent Labs 08/31/15 0934 08/30/15 0125 WBC 10.9* 25.7* HGB 13.5* 14.2 HCT 42.3 44.3 PLATELET 258 260 Last 3 Lytes Recent Labs 08/31/15 0935 08/31/15 0934 08/30/15 0125 NA 145 142 141 K 3.9 3.6 4.0 CL 105 105 103 CO2 26 26 21* BUN 18 18 14 CREATININE 0.92 0.91 0.91 Last 3 LFTs Recent Labs 08/31/15 0935 08/30/15 0125 AST 117* 159* ALT 136* 167* ALKPHOS 262* 254* BILITOT 5.3* 4.1* BILIDIR 4.7* 3.7* Last Ca, Mg, Phos Recent Labs 08/31/15 0935 08/31/15 0934 CALCIUM 9.1 9.3 PHOS -- 2.3* Last 3 Coags Recent Labs 08/30/15 1830 08/30/15 1555 08/30/15 0125 PT 19.3* 22.2* 26.1* INR 1.6* 1.9* 2.3* PTT -- -- 33 Microbiology 08/29 OSH UCx >100,000 E. Coli 08/29 OSH BCx GNR Radiology none A/P: Jaime Crouch is a 69 y.o. male 1 Day Post-Op s/p ERCP for ascending cholangitis vs. Acute cholecystitis with choledocholithiasis in the setting of a UTI and positive blood cultures Neuro: LOLY Pain: well controlled on current regimen CV: LOLY Pulm: pulmonary toilet with IS GI: RUQ pain - ascending cholangitis vs. Acute cholecystitis with choledocholithiasis - lap saadia 09/01 FEN: CLD NPO 0000 LR@50 ID: leukocytosis, bacteremia - sepsis - lactate resolved 08/30, continue ABx and IVF Heme: LOLY : E. Coli UTI - Zosyn/vanc MSK: OOB, PT/OT PV: LOLY Disp: 4w Full Code JUANA VALENZUELA MD 08/31/2015 2:19 PM Associated attestation - Jay Chambers MD - 08/31/2015 3:07 PM EST Attending Attestation Please see Dr. Valenzuela's note for details of the patient history of presentation and data. I havediscussed, reviewed and agree with the documented History, Physical findings, Assessment and Plan of care. Did well under anesthesia during ERCP yesterday; no stones found in CBD, sphincterotomy deepened, cystic duct filled but + GS in neck identified. Pt doing well this am, afebrile, VSS. Remains on unasyn, WBC significantly improved to 10.9 today. TB up today again, ? Etiology given non- obstructive nature of current anatomy; transaminitis improved. Lipase normal, unlikely to have ERCP- induced pancreatitis. Abdomen soft, morbidly obese, NTTP. + flatus, no BM yet. Will start on clears today, plan for OR tomorrow for lap poss open saadia. I have examined the patient myself and personally reviewed all studies. In addition, I certify thatI am a D-H credentialed attending provider with admitting privileges and that the patient meets or has met medical necessity to require an inpatient IPI level of care meeting a minimum of two midnights or is on the [facility] inpatient only procedure list (status C) due to: acute injury, physiologic or anatomic insult requiring close monitoring; IV fluid resuscitaiton and/or IV medication; lab/imaging evaluation and has potential for urgent operative intervention. JAY CHAMBERS MD 08/31/2015 * Annemarie Diop RN - 08/31/2015 11:34 AM EST Office of Case Management (OCM) 08/31/2015 CM reviewed eDH - accepted hand off from previous CM / IA reviewed -- CM met with patient and at bedside 4W - presents alert oriented and engaged in this conversation - verbalizes the plan is toproceed to OR tomorrow 09/01 for cholecystectomy laprascopic with potential to open - baseline is independent with adl's including driving - supportive to assist prn -- unsure of d/c date or needs at present - probable no needs CM available Annemarie Diop RN CCM #[id number] * Howard Moya MD - 08/31/2015 10:37 AM EST Gastroenterology & Hepatology Progress Note Jaime Crouch 1945 [id number] PCP: CHERISE STAPLES MD Date of Admission: 08/30/2015 ( Hospital Day 1 day ) Attg: Delroy Chu MD PATIENT ID [id number] w/ afib on a/c, HTN, HLD, CAD s/p stenting to LAD, ?cholangitis with ERCP and sphincterotomy in09/2014 (no CBD stones then) who presents with worsening RUQ and epgastric abdominal pain similar to09/2014 -CT 08/29 at OSH indicting GS and possible CBD stone, suspected acute cholecytitis -s/p ERCP 08/30 no evidence of CBD stone s/p extension of prior sphincterotomy and sweeping of CBD;some filling in cystic duct but abrupt cutoff in GB neck suggesting impacted stone in GB neck Interval History: Feels well Does not report abd pain Active Hospital Problem List Patient Active Problem List Diagnosis Code ??? Nephrolithiasis N20.0 ??? Phimosis N47.1 ??? Hypertension I10 ??? Suspected cholecystitis vs cholangitis K81.9 ??? Atrial fibrillation I48.91 ??? TOM on CPAP G47.33 ??? Morbid obesity E66.01 ??? Hypertension (HTN) I10 ??? CAD I25.10 ??? Nonsustained ventricular tachycardia I47.2 Past Surgical History Procedure Laterality Date ??? Lithotripsy ??? Total hip arthroplasty Bilateral ??? Cystoscopy for BPH ??? Coronary angioplasty with stent placement 2007 LAD ??? Kidney stone surgery Left removal of stones: nephrolithotomy ??? Pro ercp,diagnostic N/A 09/09/2014 ERCP performed by Nick Broussard MD at [facility] Medications Scheduled Meds: ??? ampicillin-sulbactam 3 g Intravenous Q6H KYLEE ??? atorvastatin 80 mg Oral QPM ??? DILTiazem 60 mg Oral Q6H KYLEE ??? lisinopril 20 mg Oral Daily ??? meTOPROLOL tartrate 50 mg Oral BID ??? sodium chloride 0.9 % 5 mL Intravenous BID ??? famotidine 20 mg Oral BID Or ??? famotidine 20 mg Intravenous BID ??? furosemide 20 mg Oral BID ??? allopurinol 300 mg Oral Daily ??? potassium Citrate 20 mEq Oral TID Continuous Infusions: ??? [START ON 09/01/2015] lactated ringers PRN Meds:.sodium chloride 0.9 %, lidocaine, nalOXone, ondansetron OR ondansetron, HYDROmorphone Review of patient's allergies indicates no known allergies. Physical Examination Vitals: Last value Range last 24 hrs Temperature Temp: 36.6 ??C (97.9 ??F) Temp: [36.3 ??C (97.3 ??F)-37.9 ??C (100.2 ??F)] Heart Rate Heart Rate: 87 Heart Rate: [83-114] Blood Pressure BP: (!) 144/92 mmHg BP: (105-163)/(52-92) Respiratory Rate Resp: 22 Resp: [18-29] SpO2 SpO2: 92 % SpO2: [92 %-97 %] Intake/Output Summary (Last 24 hours) at 08/31/15 1037 Last data filed at 08/31/15 0400 Gross per 24 hour Intake 1296 ml Output 2775 ml Net -1479 ml Wt Readings from Last 3 Encounters: 08/30/15 173.8 kg (383 lb 2.6 oz) 11/23/14 185.975 kg (410 lb) 09/09/14 186 kg (410 lb 0.9 oz) Body mass index is 54.98 kg/(m^2). Filed Vitals: 08/31/15 0743 BP: 144/92 Pulse: 87 Temp: 36.6 ??C (97.9 ??F) Resp: 22 Gen: NAD, AAOx3 Abd: soft, NT, ND, NABS Ext: WWP, no CCE Labs: Reviewed in EMR. Recent pertinent labs include: Recent Labs 08/31/15 0934 08/30/15 0125 WBC 10.9* 25.7* HGB 13.5* 14.2 HCT 42.3 44.3 PLATELET 258 260 Recent Labs 08/30/15 0125 NA 141 K 4.0 CL 103 CO2 21* BUN 14 CREATININE 0.91 Recent Labs 08/30/15 0125 CALCIUM 9.3 Recent Labs 08/30/15 0125 AST 159* ALT 167* ALKPHOS 254* BILITOT 4.1* BILIDIR 3.7* Recent Labs 08/30/15 1830 08/30/15 1555 08/30/15 0125 INR 1.6* 1.9* 2.3* PT 19.3* 22.2* 26.1* PTT -- -- 33 Pertinent Endoscopic Procedures/Reports: Reviewed in eDH Pertinent Recent Imaging Reviewed in eDH Assessment: Jaime Crouch is a 69 y.o. male w/ afib on a/c, HTN, HLD, CAD s/p stenting to LAD, ?cholangitis with ERCP and sphincterotomy in 09/2014 (no CBD stones then) who presents with worsening RUQ and epgastric abdominal pain similar to 09/2014 w/ CT 08/29 at OSH indicting GS and possible CBD stone, suspected acute cholecytitis s/p ERCP 08/30 no evidence of CBD stone s/p extension of prior sphincterotomy and sweeping of CBD; some filling in cystic duct but abrupt cutoff in GB neck suggesting impacted stone in GB neck -unclear if he had ascending cholangitis but possible that he had a CBD stone that had passed at time of ERCP. -leukocytosis has improved which is reassuring -ddx for elevated liver tests includes cholestasis of sepsis Recommendations -please add on liver tests and follow daily to ensure downtrend -on abx. bcx drawn today -pt needs eventual CCY, timing as per surgical service -d/w attg, Dr. Moya -please call w/ questions, will not follow daily DEXTER GIPSON MD, PGY4, GI Fellow [phone] 08/31/2015 I have seen and evaluated the patient with Dr. Gipson. I have reviewed the fellow's history during the encounter and I agree with the details as written above. My physical examination confirms the above findings. The assessment and plan were formulated in discussion with me at the time of the encounter and I agree with them as documented. WBC improved today, LFTs still up. Sometimes takes a few days for Bili to come down. Possible that he passed a stone before the ERCP. But also consider Mirizzi's syndrome with known stone in the GB neck. Agree with plan to take to the OR tomorrow. Howard Moya MD, MS insights strategist Section of Gastroenterology and Hepatology * Makenzie Penaloza RN - 08/31/2015 5:58 AM EST Jimbo had no reported telemetry events by phone but his printed report shows that he did have some afib and some PVC's. His HR was between 90-100. He is tolerating his current rate and rhythm, has no c/o chest pain or SOB. Will continue to monitor. * Annie Jordan RCP - 08/31/2015 4:23 AM EST Pt using his home CPAP unit with 2 liter bleed in. * Delroy Wallace MD - 08/30/2015 8:00 PM EST Post op check Jaime Crouch is a 69 y.o. male sp ERCP S: No nausea/vomiting, chest pain, SOB, pain well controlled, Describes controlled headache and sore throat, offers no other complaints. O: Temp: [36.3 ??C (97.3 ??F)-37.9 ??C (100.2 ??F)] Heart Rate: [83-114] Resp: [20-29] BP: (106-163)/(52-87) SpO2: [94 %-97 %] I/O last 3 completed shifts: In: 1254 [I.V.:1035; Blood:219] Out: 1450 [Urine:1450] Physical Exam Gen: NAD, resting comfortable CVS: RRR Resp: CTA, NC in place at 2 L Abd: soft, nontender, nondistended Ext: SCDs in place AP Jaime Crouch is a 69 y.o. male sp ERCP currently in stable condition and recovering well - continue post operative plan per primary team - pain well controlled - hemodynamically stable, UOP adequate Associated attestation - Jay Chambers MD - 08/31/2015 3:08 PM EST JAY CHAMBERS MD * Wade Almanza RN - 08/30/2015 7:07 PM EST 1899- Received report from [facility]. Pt awake alert VSS, moving all extremities, pain tolerable, waiting for INR result 1944- INR 1.6, Dr. Prado made aware, two units of FFP oredered D/C'd, PACU criteria met * Marium Ordoñez RN - 08/30/2015 6:58 PM EST Pt received into pacu station 13 following ERCP. Placed on monitor with alarms active and audible and with appropriate settings. VSS. Baseline AF, denies pain, no respiratory issues appreciated and pt eventually placed on N/C 2L. Diuresis from lasix given intra-procedure. Dr. Tien Liu notified regarding previously ordered FFP. INR sent from pacu per order to clarify need for remaining FFP units. Nursing hand-off to JACOB Olvera. * Claire Perkins RN - 08/30/2015 3:38 PM EST Office of Care Management (OCM) / [employer](CM)/ Initial Assessment Discussed patient with Provider Team and with staffing analyst. Reviewed record. REASON for HOSPITALIZATION: patient admitted on 08/29/15 in transfer from [facility] ED. Patient presented to ED with RUQ abdominal pain. At this time patient is on Unasyn IV q6hr. NPO except meds. IV at 50/hr. Diltiazem po q6hr. Lasix 20mg po BID. Lisinopril po qday. Lopressor po BID. Lipitor po qpm. Pepcid po/IV BID. PMH ICD-10-CM Priority Class Noted POA Suspected cholecystitis vs cholangitis K81.9 09/09/2014 Yes Overview Signed 09/20/2014 8:18 AM by Lili Peters DO S/p sphincerotomy - consider elective choly as outpatient Non-Hospital Problem List Date Reviewed: 09/20/2014 ICD-10-CM Priority Class Noted Nephrolithiasis N20.0 09/10/2011 Overview (Other) 06/07/2012 5:49 PM by Unknown Previous Version Phimosis N47.1 12/11/2011 Hypertension I10 09/09/2014 Atrial fibrillation I48.91 09/09/2014 Overview Addendum 09/20/2014 8:16 AM by Lili Peters DO S/p Vit K at [facility] - INR sub therapeutic - on lovenox bridge until INR 2-3 Previous Version TOM on CPAP G47.33 09/09/2014 Morbid obesity E66.01 09/20/2014 Hypertension (HTN) I10 09/20/2014 CAD I25.10 09/20/2014 Nonsustained ventricular tachycardia I47.2 09/20/2014 PREVIOUS FUNCTIONAL STATUS: independent CURRENT FUNCTIONAL STATUS: ambulating with assistance SOCIAL / FAMILY SUPPORTS: Leah, family/friends ADVANCE DIRECTIVES: On file here at [facility] /PRESCRIPTION COVERAGE: Medicare (parts A and B) and [place] BC/BS [employer] CURRENT HOME/COMMUNITY SERVICES/EQUIPMENT: DME: Patient uses CPAP at home [employer]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 Patient for ERCP this afternoon. TRANSPORTATION @ D/C: family/friend PLAN: CM will continue to monitor progress, follow for continuity of care and assist with dischargeplanning while hospitalized . * Makenzie Penaloza RN - 08/30/2015 6:19 AM EST Jimbo has had some a.fib runs where his HR jumped into the 140's. His HR was mostly in the 110's to 120's. He did miss his usual at home diltizem dose. He is currently tolerating his rate and rhythm. Will continue to monitor. documented in this encounter H&P Notes * Milind Murray MD - 09/01/2015 1:51 PM EST CRITICAL CARE SERVICE ADMISSION HISTORY AND PHYSICAL History of Present Illness: Jaime Crouch ( ) is a 69 y.o. male with a history of chronic afib, CAD s/p LAD stent in 2006, HTN, HLD, DVTs and PE who presented on 08/30/2015 as a transfer from an OSH in the setting of RUQ pain, leukocytosis, elevated LFTs, amylase and lipase and gallstones noted on CT scan. He was admitted to [facility] in September of this year for cholangitis and was treated with zosyn and an ERCP. During this hospital course he had an uneventful ERCP 08/30. He had a laparoscopic cholecystectomy today, 09/01, and required rescue BiPap in the PACU, likely secondary to pulmonary edema. He is being admitted to the ICU for close monitoring of his respiratory function. Review of Systems: Positive as above and for some incisional pain, otherwise negative. Past Medical History: Past Medical History Diagnosis Date ??? Kidney stone ??? Hypertension ??? ASCVD (arteriosclerotic cardiovascular disease) 1993 first SD 1992, stent to LAD in 2006 ??? Atrial fibrillation chronic anticoagulation ??? Nephrolithiasis hx of nephrostomy tube and posterior approach removal ??? HLD (hyperlipidemia) ??? Chronic venous insufficiency ??? TOM on CPAP ??? DVT (deep venous thrombosis) ??? PE (pulmonary embolism) Past Surgical History: Past Surgical History Procedure Laterality Date ??? Lithotripsy ??? Total hip arthroplasty Bilateral ??? Cystoscopy for BPH ??? Coronary angioplasty with stent placement 2007 LAD ??? Kidney stone surgery Left removal of stones: nephrolithotomy ??? Pro ercp,diagnostic N/A 09/09/2014 ERCP performed by Nick Broussard MD at [facility] ??? Pro ercp,diagnostic N/A 08/30/2015 ERCP performed by Nick Broussard MD at [facility] Allergies: No Known Allergies Home Medications: Prescriptions prior to admission Medication Sig Dispense Refill Last Dose ??? potassium Citrate (UROCIT) 10 mEq (1,080 mg) Tablet Sustained Release TAKE 2 TABLETS BY MOUTH 3TIMES A DAY (Patient taking differently: TAKE 2 TABLETS BY MOUTH 2 TIMES A DAY) 540 tablet 3 ??? aspirin 325 mg Tablet Take 162.5 mg by mouth daily. Taking at Unknown time ??? allopurinol (ZYLOPRIM) 300 mg Tablet Take 300 mg by mouth daily. Taking at Unknown time ??? WARFARIN SODIUM (WARFARIN ORAL) Take by mouth. Pt takes 7.5mg daily Taking at Unknown time ??? furosemide (LASIX) 40 mg Tablet Take 0.5 tablets by mouth 2 times daily. 30 tablet 12 Taking atUnknown time ??? lisinopril (PRINIVIL;ZESTRIL) 20 mg Tablet Take 1 tablet by mouth daily. 30 tablet 0 Taking at Unknown time ??? metoprolol tartrate (LOPRESSOR) 50 mg Tablet Take 1 tablet by mouth 2 times daily. 60 tablet 1 Taking at Unknown time ??? DILTiazem (CARDIZEM CD) 120 mg Capsule, Sust. Release 24 hr Take 2 capsules by mouth daily. 30 capsule 1 Taking at Unknown time ??? atorvastatin (LIPITOR) 80 mg Tablet Take 80 mg by mouth daily. Taking at Unknown time ??? nitroGLYcerin (NITROSTAT) 0.4 mg Tablet, Sublingual Place 0.4 mg under the tongue every 5 minutes as needed for Chest pain. Taking at Unknown time Family History: History reviewed. No pertinent family history. Social History: History Social History ??? Marital Status: Spouse Name: N/A Number of Children: N/A ??? Years of Education: N/A Occupational History ??? Not on file. Social History Main Topics ??? Smoking status: Former Smoker ??? Smokeless tobacco: Never Used ??? Alcohol Use: Yes Comment: varies on kind, drinks maybe once a week\ ??? Drug Use: No ??? Sexual Activity: Not Currently Other Topics Concern ??? Not on file Social History Narrative Vitals: Last value Range last 24 hrs Temperature Temp: 36.4 ??C (97.5 ??F) Temp: [36.3 ??C (97.3 ??F)-36.8 ??C (98.2 ??F)] Heart Rate Heart Rate: 105 Heart Rate: [67-118] Cuff BP BP: (!) 152/91 mmHg BP: (144-162)/(67-106) Arterial BP BP (Arterial Line): (155-163)/(85-108) CVP CVP: -- Respiratory Rate Resp: 25 Resp: [17-28] SpO2 SpO2: 97 % SpO2: [88 %-98 %] ABG: No results for input(s): PHART, OCO8WBW, PO2ART, JYR2JGC in the last 168 hours. Physical Exam: General: laying in bed in no acute distress. Neurological: Awake, alert, responds to questions appropriately. CV: +S1S2, normal rate and rhythm, no murmur. Pulm: Wearing bipap. Abd: soft, slightly distended, obese, lap sites c/d/i, no peritoneal signs. Musculoskeletal: No LE edema. Skin: warm and dry. Labs: Recent Labs 09/01/15 0401 08/31/15 0934 08/30/15 0125 WBC 9.1 10.9* 25.7* HGB 13.3* 13.5* 14.2 HCT 41.1 42.3 44.3 PLATELET 220 258 260 Recent Labs 08/30/15 1830 08/30/15 1555 08/30/15 0125 PT 19.3* 22.2* 26.1* PTT -- -- 33 INR 1.6* 1.9* 2.3* Recent Labs 09/01/15 0401 08/31/15 0935 08/31/15 0934 08/30/15 0125 NA 141 145 142 141 K 3.8 3.9 3.6 4.0 CL 104 105 105 103 CO2 27 26 26 21* BUN 15 18 18 14 CREATININE 0.86 0.92 0.91 0.91 GLUCOSE -- -- -- 122 Recent Labs 09/01/15 0401 08/31/15 0935 08/31/15 0934 CALCIUM 9.0 9.1 9.3 PHOS 2.0* -- 2.3* Recent Labs 09/01/15 0401 08/31/15 0935 08/30/15 0125 AST 109* 117* 159* ALT 123* 136* 167* ALKPHOS 238* 262* 254* BILITOT 3.2* 5.3* 4.1* BILIDIR 2.5* 4.7* 3.7* AMYLASE -- 32 -- LIPASE -- -- 33 No results for input(s): PHART, FSO7BZW, PO2ART, PNA0ZQG, BEART in the last 168 hours. ECG 08/30: Atrial fibrillation with rapid ventricular response Abnormal ECG When compared with ECG of 09-FEB-2009 12:34, Atrial fibrillation has replaced Sinus rhythm Vent. rate has increased BY 67 BPM QRS axis Shifted right Criteria for Inferior infarct are no longer Present Nonspecific T wave abnormality no longer evident in Lateral leads Echo 08/30: SUMMARY: 1. The left ventricular chamber size is [...] is 42 mmHg. The estimated right atrial pressure is 15 mmHg. 6. Other details as noted below. Imaging: Chest XRay 09/01 IMPRESSION: Very limited as above, cannot exclude airspace disease, pulmonary edema, atelectasis, effusions. Assessment: 69 year old WM with multiple medical comorbidities now s/p laparoscopic cholecystectomybeing admitted to the ICU from PACU for requiring BiPap settings higher than his home CPAP regimen.His clinical picture is consistent with pulmonary edema. His surgery was uneventful. He is hemodynam ically stable and is alert and oriented. He will likely be in the ICU for less than 24 hours while fluid is diuresed from his lungs and his respiratory function recovers. Neuro: - pain: tylenol and dilaudid IV, will add dilaudid instructor business education if needed or if diet is advanced will give PO pain meds for longer coverage - home med: allopurinol CV: - Has history of afib, on metop and dilt at home, will continue both PO. - goal SBP <150 and HR <90 - Continue home meds: statin Pulm: - On BiPap, wean to home CPAP settings for TOM and wean to RA during daytime - Scheduled duonebs GI: - Diet: CLD now, advance to regular by dinner - NBOs: hold for now - Stress ulcer prophylaxis: famotidine /FEK: -mIVFs: 50/hr until diet advanced - IV lasix in PACU, will repeat 40mg IV dose at 8pm tonight. Goal is to remove fluid from his lungs. MSK: -no active issues. ID: -abx: unasyn Heme: - History of DVT and PEs, will resume SQH now - hgb: stable at 13.3, will repeat in morning - DVT prophylaxis: SCDs and SQH tid. Endo: - no active issues Activity: - as tolerated Lines: - Haque, Arterial Line, PIV Primary Service: Acute Care Surgery Code Status: Full Code Dispo: -admit to ICU, Critical Care Red 1 Team Milind Murray MD MPH General Surgery PGY-1 [id number] * Rudi Reardon DO - 09/01/2015 7:52 AM EST Interval H&P Please see clinic H&P dated 08/30/15. In brief, Jaime Crouch was admitted for choledocholithiasis. He underwent uneventful ERCP yesterday. He feels well and is ready for his procedure today. Denies CP, SOB, fever/chills. Filed Vitals: 09/01/15 0330 BP: 144/97 Pulse: 85 Temp: 36.5 ??C (97.7 ??F) Resp: 24 Gen: well developed and well nourished CV: Regular rate Pulm: respiratory effort normal Abd: Obese, soft Ext: normal range of motion . A/P: 69 y.o. male who presents today with acute cholecystitis. Plan for laparoscopic cholecystectomy. Consent signed and dated and placed in chart Ok to proceed with scheduled operation. RUDI REARDON, * Nick Broussard MD - 08/30/2015 4:06 PM EST I interviewed and examined Mr. Crouch and I agree with the assessment and plan as outlined in the note by Dr. Klein. Plan for ERCP for cholangitis. Plan on OR case given significant issues with airway per anesthesia. * Carlos Manuel Klein - 08/30/2015 3:41 PM EST Procedure: ERCP Indication: History of Present Illness: Jaime Crouch is a 69 y.o. man CAD and Afib, who presented with RUQ pain, white count 25.7, TB 4.1, ALP 254, AST 159, ALT 167, CT scan with choledocholithiasis, INR 2.3(received FFP). He underwent ERCP 09/2014 with sphincterotomy and CBD negative for stones. The procedure and its risk were carefully discussed, noting his high risk given his morbid obesity:risks including, but not limited, to infection, bleeding, perforation, pancreatitis and Patient Active Problem List Diagnosis Code ??? Nephrolithiasis N20.0 ??? Phimosis N47.1 ??? Hypertension I10 ??? Suspected cholecystitis vs cholangitis K81.9 ??? Atrial fibrillation I48.91 ??? TOM on CPAP G47.33 ??? Morbid obesity E66.01 ??? Hypertension (HTN) I10 ??? CAD I25.10 ??? Nonsustained ventricular tachycardia I47.2 Medications: Reviewed in EDH No Known Allergies Social History/Family History: Reviewed in EDH. No changes Exam: Filed Vitals: 08/30/15 1449 BP: 119/60 Pulse: 98 Temp: 37 ??C (98.6 ??F) Resp: 20 Axox3, nad Anicteric, MMM CTAB RRR, no m/r/g abd soft nt nd +bs Assessment and Plan: Requesting STAT INR now after FFP Proceed with ERCP: ASA Grade: ASA 4 - Patient with severe systemic disease that is a constant threat to life Mallampati score:IV (only hard palate visible) Sedation plan: Anesthesia Risks and benefits of the procedure were discussed with the patient. Consent has been signed. CARLOS MANUEL KLEIN MD * Delroy Chu MD - 08/30/2015 12:50 AM EST Images from the original note were not included. [facility] Department of Surgery History of Present Illness: Mr. Jaime Crouch is a 69 y.o. gentleman with multiple comorbiditiesincluding chronic a-fib, CAD, HTN, HLD and prior cholangitis episode who presents now with a gallbladder attack. He states that this morning he had some RUQ/epigastric pain, he had some associated nausea but denied any emesis, fevers, chills, change in bowel or urinary habits. He reports that he was able to run his errands however the pain got progressively worse and became constant, which prompted him to see care at the [facility] ED. There he was noted to have a WBC of 18, elevated LFTs, amylase and lipase. A CT scan was obtained which noted multiple gallstones. Pt was transferred to [facility] for further evaluation and care. Of note pt was admitted in September of 2014 for cholangitis, at that timehe was treated with a 7 day course of zosyn, and underwent an ERCP with sphincterotomy. Past Medical History: Past Medical History Diagnosis Date ??? Kidney stone ??? Hypertension ??? ASCVD (arteriosclerotic cardiovascular disease) 1993 first SD 1992, stent to LAD in 2006 ??? Atrial fibrillation chronic anticoagulation ??? Nephrolithiasis hx of nephrostomy tube and posterior approach removal ??? HLD (hyperlipidemia) ??? Chronic venous insufficiency ??? TOM on CPAP ??? DVT (deep venous thrombosis) ??? PE (pulmonary embolism) Past Surgical History: Hip replacement x3 Lithotripsy Social History: History Social History ??? Marital Status: Spouse Name: N/A Number of Children: N/A ??? Years of Education: N/A Occupational History ??? Not on file. Social History Main Topics ??? Smoking status: Former Smoker ??? Smokeless tobacco: Never Used ??? Alcohol Use: Yes Comment: varies on kind, drinks maybe once a week\ ??? Drug Use: No ??? Sexual Activity: Not Currently Other Topics Concern ??? Not on file Social History Narrative Review of Systems: As stated above, otherwise negative Physical Exam: Last value Range last 24 hrs Temperature Temp: 37.6 ??C (99.7 ??F) Temp: [37.6 ??C (99.7 ??F)] Heart Rate Heart Rate: 118 Heart Rate: [118] Blood Pressure BP: 113/61 mmHg BP: (113)/(61) BP (Arterial Line): -- Respiratory Rate Resp: 15 Resp: [15] SpO2 SpO2: 96 % SpO2: [96 %] Physical Exam: General: NAD, obese gentleman on NC, pleasant, conversant HEENT: NCAT, EOMI CVS: irregular rate Pulm: breath sounds present bilaterally, normal respiratory effort. Abd: soft, obese, nontender to percussion or palpation in the RUQ, nondistended Skin: warm, dry, venous statis discoloration of bilateral lower extremities Ext: no cyanosis, cap refill <2sec Neuro: grossly intact, nonfocal, moving all four extremities spontaneously Labs: From OSH CBC: WBC 18, Hgb 15.8, Plt 287 Lactate: 2.76 BMP: Na 141, K, 4.2, Cl 105, CO2 27, BUN 17, Cr 0.99 LFT: Albumin 2.9, Tbili 2.4, total protein 8.1, AST 216, ALT 241, Amylase 179, Lipase 845 UA: + for nitrates, >50 WBC, large leukesterase Images: CT scan notable for gallstones Impression/Recommendation: Mr. Jaime Crouch is a 69 y.o. gentleman with a prior history of cholangitis s/p ERCP with sphincterotomy, who presents now with recurrent RUQ pain, and elevated WBC andLFTs. His total bilirubin while elevated is only 2.4, which could represents recurrent cholangitis vs acute cholangitis. Will admit Jaime Crouch to the acute care surgery service. - Admit to general surgery, Dr. Chu - repeat labs (CBC, BMP, LFTs in AM) - holding coumadin as INR was noted to be >3 at OSH - pt in afib with RVR in ED, will order EKG and order IV diltiazem - NPO - mIVF Garland De MD General Surgery, PGY2 Attending Addendum I have seen and examined the patient and reviewed the resident's history and I agree with the details as written. I have reviewed the laboratory data and viewed the pertinent imaging. The assessment and plan were formulated in discussion with me and I agree with them as documented. ?? Overall feeling better now, pain resolved on the trip down from [facility], no pain on exam at present ?? Will repeat labs now to see if bili rising or falling and recheck wbc ?? CT does not show any evidence for cholecystitis but if bili rising then ERCP would be indicated ?? He went into flash pulmonary edema following his last ERCP in 09/2014 and remained intubated for 3 days ?? Restart home meds and give dose of diltiazem now with his tachycardia and baseline a flutter. ?? Will need to determine optimum timing for cholecystectomy given his constellation of co-morbidities and his clinical picture, would favor more expedited time frame given his prior symptoms and nowwith second episode of potential cholangitis DGosia Chu MD documented in this encounter Nursing Notes * Viviana Laurent RN - 08/30/2015 5:54 PM EST Open area of skin on left ankle area noted on entrance to OR. Mepilex dressing applied. documented in this encounter ED Notes * Lolita Valiente RN - 08/30/2015 1:35 AM EST Heart rate 115bpm following administration of IV diltiazem. * Marla May MD - 08/30/2015 1:11 AM EST Patient Name: Jaime Crouch Patient Age: 69 y.o. Birthdate: 1945 Admit date: 08/30/2015 Attending Physician: Marla May MD Emergency Department Jaime Crouch is a 69 y.o. male who presents to [facility] with increasing abdominal pain History of Present Illness / Review of Systems The patient is resting comfortably in the bed Physical Exam: I reviewed the patient???s vitals as recorded in the electronic medical record and ED nursing notes. The patient was non-toxic appearing and in no obvious distress. He is tachycardic. Assessment/Plan: This 69 y.o. male was transferred from an outside hospital emergency department to receive specialty care provided by the surgery service for acute cholecystitis. The patient was deemed to be stable and not requiring significant involvement from the attending emergency physician at this time. The accepting service has assumed further care of the patient. Please see their notes for any further clinical details. Marla May MD 08/30/15 0112 * Lolita Valiente RN - 08/30/2015 12:45 AM EST Surgery resident at the bedside. documented in this encounter Miscellaneous Notes * Plan of Care - Suma Esparza RN - 09/02/2015 3:42 AM EST Problem: General Plan of Care Goal: Plan of Care Review Outcome: Ongoing (Interventions Implemented as Appropriate) 08/30/15 0406 09/01/15 2230 Plan of Care Review Plan of Care Outcome Status ongoing (interventions implemented as appropriate) -- Progress improving -- Coping/Psychosocial Response Interventions Plan of Care Reviewed with -- patient OUTCOME EVALUATION NOTE: OUTCOME SUMMARY: Patient arrived to the unit from ICU, vital signs were obtained and assessment completed. Patient was oriented to the unit and call estevez placed within reach. Masimo placed. Patient was in 4/10 pain 4mg of dilaudid administered with good effect. Patient slept well in between care. Used home CPAP overnight, cleared with engineering. Patient on a bariatric bed. Has some areas of redness but blanchable. Bilateral legs victor m in color chronic venous insufficiency with persistent wound on lower left leg, wound care aware. Wound covered with mepilex with scant amount of drainage over night. Respiratory diminished on room air when not on CPAP. Continued Q4 hour nebulizer treatments. PLAN MOVING FORWARD: Continue assessing pulmonary function Encourage ambulation and use of incentive spirometer Continue assessing skin and encouraging turning in bed Continue assessing for pain INDIVIDUALIZED FALL PREVENTION: Assistance: 1 assist with cane Supervision: Minimal rings appropriately Surveillance: Bed/ chair alarm, masimo, purposeful rounding CPG GOAL OUTCOME EVALUATION: Goal: Individualization and Mutuality Outcome: Ongoing (Interventions Implemented as Appropriate) 08/30/15236 Mutuality/Individual Preferences What anxieties, fears or concerns do you have about your health or care? is retiring, financial concerns What questions do you have about your health or care? will i be able to go home tomorrow What information would help us give you more personalized care? none Goal: Fall Prevention-Safe Patient Handling Outcome: Ongoing (Interventions Implemented as Appropriate) 09/01/15199909/01/152229 Vale Fall Risk History of Falling -- 0 Secondary Diagnosis -- 15 Ambulatory Aids -- 15 Intravenous Therapy/Heparin/Saline Lock -- 20 Gait/Transferring -- 10 Mental Status -- 0 Score -- 60 Activity and Safety Assistive Device -- Cane OTHER Vale Fall Risk -- High Safety Interventions Safety Precautions/Fall Reduction -- bed alarm;chair alarm;fall reduction program maintained;lighting adjusted for task/safety;low bed;nonskid shoes/slippers when out of bed Musculoskeletal Interventions Activity/Level of Assistance bed rest -- Positioning -- independent Goal: Infection Control Outcome: Ongoing (Interventions Implemented as Appropriate) 09/01/152229 Safety Interventions Isolation Precautions standard precautions maintained Infection Prevention bronchial hygiene promoted;environmental surveillance;hydration promoted;nutrition promoted;promote handwashing;rest/sleep promoted Coping/Psychosocial Response Interventions Counseling emotional support provided;calming techniques promoted Goal: Discharge Needs Assessment Outcome: Ongoing (Interventions Implemented as Appropriate) 08/30/1523608/30/15 0406 Discharge Needs Assessment Concerns to be Addressed -- no discharge needs identified Current Health Anticipated Changes Related to Illness -- none Self-Care Equipment Currently Used at Home cane, straight -- Living Environment Transportation Available family or friend will provide -- Problem: Skin Integrity Impairment, Risk/Actual (Adult, Obstetrics) Goal: Identify Signs and Symptoms and Related Risk Factors Signs and symptoms and related risk factors are identified upon initiation of Human Response Clinical Practice Guideline (CPG) Outcome: Ongoing (Interventions Implemented as Appropriate) 09/02/15330 Skin Integrity Impairment, Risk/Actual Physiological Related Risk Factors (Skin Integrity Impairment, Risk/Actual) sensory impairment;tissue perfusion impairment Treatment Related Related Risk Factors (Skin Integrity Impairment, Risk/Actual) surgery Goal: Skin Integrity/Wound Healing Patient will demonstrate the desired outcomes. Outcome: Ongoing (Interventions Implemented as Appropriate) 09/02/15330 Skin Integrity Impairment, Risk/Actual (Adult, Obstetrics) Skin Integrity/Wound Healing making progress toward outcome * OR Attestation - Jay Chambers MD - 09/01/2015 12:44 PM EST Attestation: Case Date: 09/01/2015 I was present and I participated during the entire procedure (does not need to include opening and closing). JAY CHAMBERS MD 09/01/2015 * Op Note - Jay Chambers MD - 09/01/2015 12:30 PM EST [facility] Operative Note Patient Name: Jaime Crouch : [id number] MR#: [id number] Case Date: 09/01/2015 Surgeon: Surgeon(s) and Role: * Jay Chambers MD - Primary * Rudi Reardon DO - Resident-Surgeon Marcelino Preoperative diagnosis: acute cholangitis, cholecystitis Postoperative diagnosis: acute cholangitis. Acute on chronic cholecystitis w/ cholelithiasis Procedure(s): LAPAROSCOPIC CHOLECYSTECTOMY Findings: Inflamed gallbladder, intrahepatic gallbladder Anesthesia: General endotracheal Estimated Blood Loss: 25 cc Specimens removed during surgery: Gallbladder, gallstones Drains: None Surgical Closure: Primary Closure - closure of ALL tissue levels during the original surgery regardless of wires, wickes, drains, or other devices extruding through the incision Disposition: extubated in the OR and taken directly to the ICU in a stable, but guarded condition on BiPap. Condition: doing well with some problems : Respiratory insufficiency requiring BiPAP (Please see the Surgical Encounter Summary for any Implant and Specimen details pertinent to this patient.) HPI/Surgical Indications: Pt is a is a 69 y.o. year old M w/ afib (on couamdin), morbid obesity, HTN, HLD, CAD s/p stenting to LAD, ?cholangitis with ERCP and sphincterotomy in September 2014 complicated by flash pulmonary edema requiring re- intubation who presents with worsening RUQ and epigastric abdominal pain consistent with episode that he had in September. He reported that he was having worsening pain that brought him into the hospital. Lab work and examwas concerning for cholangitis. He underwent ERCP that was negative for choledocholithiasis. He presents today for cholecystectomy. Procedure Description: Pt was brought to the OR, positioned supine on the OR table and general endotracheal anesthesia was induced. SCD boots were placed prior to induction of anesthesia. The patient's abdomen was prepped and draped in the usual sterile fashion. A time out was performed. Antibiotics were given within 60 minutes of our incision. The abdomen was entered using an optiview, 10 mm port approximately 3 cm superior to the umbilicus and to the right of midline. This occurred without complication. The abdomen was insufflated to 15 mm Hg, which he tolerated well physiologically. We inspected the abdomen and noted the gallbladder amaris distended and inflamed appearing. The remainder of the abdomen appeared benign. We proceeded to place an 11 mm port in the subxiphoid position and 2 RUQ 5 mm ports under direct visualization afterinjecting local anesthetic. The liver looked fatty & friable, with blunted edges. The distended gallbladder was aspirated with an ovarian needle. This returned scant bilious fluid. The fundus was grasped and retracted superiorly. The infundibulum was grasped and we began our dissection isolating the cystic duct by taking down peritoneal & omental attachments, and dissecting off edematous pericystic fatty tissue. We proceeded to isolated the cystic artery and duct with blunt dissection and electrocautery. The dissection was made more difficult by his morbid obesity and a very redundant, floppy infundibulum. The critical view of safety was obtained. The duct was isolatedand double clipped on the patient side and single clipped on the specimen side, then divided. Therewere 2 small arteries that appeared to enter the gallbladder. These were likewise clipped and divided with the 5 mm clip applied. There was a larger posterior structure that could not safely be dissected from the gall bladder, but was seen to be entering only the gallbladder. This was also clipped and divided. It did have a lumen and was not pulsatile, a 5 mm clip completely crossed the structure. The gallbladder was then extracted from the liver bed. This was tedious, as it was significantly intrahepatic and pendulous. The gallbladder was violated during this process and 2 large stones were spilled. These were later retrieved. The liver bed was hemostatic at the remainder of the procedure. The clips were all in place. The gallbladder and a spilled stone were placed in the endo pouch. Thiswas removed through the supraumbilical port site after some dilation of the fascia. The abdomen wasthoroughly irrigated. The anterior rectus sheath at the supraumbilical port site was closed with an0 vicryl suture in a figure of 8 fashion. The skin was closed with 4-0 Monocryl sutures in subcuticular fashion, then covered with steri strips. Sterile dressings were applied. Dr. Chambers was scrubbed and present for the duration of the procedure. All instrument, needle andsponge counts were correct at the end of the procedure. RUDI REARDON DO Attestation: Case Date: 09/01/2015 I was present and I participated during the entire procedure (does not need to include opening and closing). JAY CHAMBERS MD 09/01/2015 * Brief Op Note - Jay Chambers MD - 09/01/2015 12:26 PM EST Brief Operative Note Patient Name: Jaime Crouch : [id number] MR#: [id number] Case Date: 09/01/2015 Surgeon: Surgeon(s) and Role: * Jay Chambers MD - Primary * Rudi Reardon DO - Resident-Surgeon Marcelino Preoperative diagnosis: acute cholangitis, cholecystitis Postoperative diagnosis: acute on chronic cholecystitis w/ cholelithiasis Procedure(s): LAPAROSCOPIC CHOLECYSTECTOMY Anesthesia: GETA Findings: Inflammed gallbladder, intrahepatic gallbladder; 3 large stones Complications: None Fluids: 1000 cc Estimated Blood Loss: 25 cc Drains: None Disposition: awakened from anesthesia, extubated and taken to the recovery room in a stable condition, having suffered no apparent untoward event. Condition: doing well without problems (Please see the Surgical Encounter Summary for any Implant and Specimen details pertinent to this patient.) * Plan of Care - Yolanda Lujan RN - 09/01/2015 5:28 AM EST Problem: General Plan of Care Goal: Plan of Care Review Outcome: Ongoing (Interventions Implemented as Appropriate) OUTCOME EVALUATION NOTE: OUTCOME SUMMARY: Pt rest promoted, some c/o inability to relax. While sleeping with CPAP on, O2 level drops to 70's.Pt expressed feeling closterphobic and wanted to get up to chair.Pt was up to chair for some of thenight with sob, IS administered with teaching provided. Pt demonstrated proper use and O2 level came up to low 90's and expressed relief. No c/o chest pain or pressure. Expresses some anxiety when asked if he has pain in his chest asking what would that indicate before answering the question. Compliant with care/ meds. LLE wound weeping moderate amounts. Mepilex was replaced after wound cleansed with dermal wound brick cleaner. Pulses +1 doppler, +2 pitting edema bilateral LE. No telemetry events as reported, metop. And dilt. Admin per schedule. PLAN MOVING FORWARD: Pt scheduled for 729 OR cholecystectomy 09/01 INDIVIDUALIZED FALL PREVENTION: Assistance: Strait cane Supervision: Stand by Surveillance: Telemetry, Paula, wound care CPG OUTCOME EVALUATION: Patient Vitals for the past 8 hrs: BP Temp Pulse Resp SpO2 Weight 09/01/15 0330 (!) 144/97 mmHg 36.5 ??C (97.7 ??F) 85 24 90 % - 09/01/15 0024 - - - - - (!) 172.6 kg (380 lb 8.2 oz) 09/01/15 0023 (!) 159/106 mmHg 36.4 ??C (97.5 ??F) 88 20 (!) 88 % - Goal: Individualization and Mutuality Outcome: Ongoing (Interventions Implemented as Appropriate) 08/30/15 0237 Mutuality/Individual Preferences What anxieties, fears or concerns do you have about your health or care? is retiring, financial concerns Goal: Fall Prevention-Safe Patient Handling Outcome: Ongoing (Interventions Implemented as Appropriate) 08/31/15199909/01/15 002 Safety Interventions Safety Precautions/Fall Reduction environmental modification;fall reduction program maintained;lighting adjusted for task/safety;nonskid shoes/slippers when out of bed;commode/urinal/bedpan at bedside -- Musculoskeletal Interventions Activity/Level of Assistance -- up ad kenn;up in room;ambulated;with cane;with stand by assist Goal: Infection Control Outcome: Ongoing (Interventions Implemented as Appropriate) 08/31/151999 Safety Interventions Isolation Precautions standard precautions maintained Goal: Discharge Needs Assessment Outcome: Ongoing (Interventions Implemented as Appropriate) 08/30/15 0237 Self-Care Equipment Currently Used at Home cane, straight * Plan of Care - Zahra Conway RN - 08/31/2015 6:29 PM EST Problem: General Plan of Care Goal: Plan of Care Review Outcome: Ongoing (Interventions Implemented as Appropriate) 08/30/15 0406 08/31/15 0755 Plan of Care Review Plan of Care Outcome Status ongoing (interventions implemented as appropriate) -- Progress improving -- Coping/Psychosocial Response Interventions Plan of Care Reviewed with -- patient OUTCOME EVALUATION NOTE: OUTCOME SUMMARY: Jimbo had a good day. He has not reported any paint throughout the shift. He was able to ambulate around the unit with his . The haque is draining dark yellow urine with some sedimentation. He has tolerated a clear liquid diet well throughout the day and will placed NPO at midnight for OR tomorrow. Wound care visited today to look at left lower leg ulcer. A mepilex was placed and he refused further treatment at this time. Tele Pt had runs of afib with occasional PVCs per tele strip. Pt denies cardiac s/s and is tolerating current rate and rhythm. Will continue to monitor PLAN MOVING FORWARD: OR tomorrow INDIVIDUALIZED FALL PREVENTION: Assistance: Stand by with walker Supervision: Stand by Surveillance: Paula, hourly rounding, family at bedside CPG OUTCOME EVALUATION: Goal: Individualization and Mutuality Outcome: Ongoing (Interventions Implemented as Appropriate) 08/30/15236 Mutuality/Individual Preferences What anxieties, fears or concerns do you have about your health or care? is retiring, financial concerns What questions do you have about your health or care? will i be able to go home tomorrow What information would help us give you more personalized care? none Goal: Fall Prevention-Safe Patient Handling Outcome: Ongoing (Interventions Implemented as Appropriate) 08/30/15200908/31/1543508/31/15 0755 Vale Fall Risk History of Falling -- -- 0 Secondary Diagnosis -- -- 15 Ambulatory Aids -- -- 15 Intravenous Therapy/Heparin/Saline Lock -- -- 20 Gait/Transferring -- -- 10 Mental Status -- -- 0 Score -- -- 60 Activity and Safety Assistive Device -- Cane -- OTHER Vale Fall Risk -- -- High Safety Interventions Safety Precautions/Fall Reduction -- -- commode/urinal/bedpan at bedside;fall reduction program maintained;lighting adjusted for task/safety;nonskid shoes/slippers when out of bed Musculoskeletal Interventions Activity/Level of Assistance -- -- -- Positioning HOB up 30 degrees -- -- 08/31/15 1300 Vale Fall Risk History of Falling -- Secondary Diagnosis -- Ambulatory Aids -- Intravenous Therapy/Heparin/Saline Lock -- Gait/Transferring -- Mental Status -- Score -- Activity and Safety Assistive Device -- OTHER Vale Fall Risk -- Safety Interventions Safety Precautions/Fall Reduction -- Musculoskeletal Interventions Activity/Level of Assistance up in garvin;with cane;with stand by assist Positioning -- Goal: Infection Control Outcome: Ongoing (Interventions Implemented as Appropriate) 08/31/15 0755 Safety Interventions Isolation Precautions standard precautions maintained Infection Prevention bronchial hygiene promoted;environmental surveillance;hydration promoted;nutrition promoted;promote handwashing;rest/sleep promoted Coping/Psychosocial Response Interventions Counseling problem solving facilitated;reassurance provided Goal: Discharge Needs Assessment Outcome: Ongoing (Interventions Implemented as Appropriate) 08/30/1523615 0406 Discharge Needs Assessment Concerns to be Addressed -- no discharge needs identified Current Health Anticipated Changes Related to Illness -- none Self-Care Equipment Currently Used at Home cane, straight -- Living Environment Transportation Available family or friend will provide -- * Consult Note - Paul Johnson RN - 08/31/2015 11:03 AM EST Images from the original note were not included. Certified Wound Care Nurse Note Situation: Asked to see Jaime Crouch by JACOB Sweeney for left lower leg venous stasis ulcer. Background: eD-H notes reviewed for history, admitting diagnosis and active problem list. Mr. Crouch agreed to assessment. He states that he has had the wound about a month and that he is managing it at home with gauze dressing changes every other day. He states that compression stockings have been recommendedfor him, but that he does not wear them because he cannot get the stockings on. Wound Assessment and Care Provided: There was a large amount of drainage on the bedding beneath hisand the dressing was saturated. The MEpilex Border dressing was removed. His left lower red/purple in color. He has 2+ edema to his right foot and lower leg. I was unable to palpate pedal or dp pulses. Discussed with him my recommendations for KELLI's and then compression wraps based on the outcome of the KELLI's. He declined further wound care recommendations with the exception of a Mepilex Border dressing at this time, stating that he wants to deal with his gall bladder issues first and that the wound on his lower leg is healing fine. See able below for assessment and interventions. The following photo was taken of the area: Negro Score: 19 Last Pressure Ulcer Prevention assessment: Shift Pressure Ulcer Prevention Occiput: No Injury Thoracic Spine: No Injury Sacral: No Injury Ischial - left: No Injury Ischial - right: No Injury Heel - left: No Injury Heel - right: No Injury Elbow - left: No Injury Elbow - right: No Injury Device Sites: O2 sat monitor, IV sites, haque, Bi pap/C pap mask Other Sites: CPAP Existing Wounds: Wound 09/11/14 Right lower leg ulceration, venous (Active) Wound WDL ex 08/31/2015 11:00 AM Dressing Appearance copious drainage 08/31/2015 11:00 AM Base pink;moist 08/31/2015 11:00 AM Base Description (%) pink, moist with a thin yellow adherent film 08/31/2015 11:00 AM Area macerated 08/31/2015 11:00 AM Edges open 08/31/2015 11:00 AM Length (cm) 3 08/31/2015 11:00 AM Width (cm) 2.5 08/31/2015 11:00 AM Depth (cm) 0.2 08/31/2015 11:00 AM Tunneling [depth (cm)/location] 0 08/31/2015 11:00 AM Undermining [depth (cm)/location] 0 08/31/2015 11:00 AM Drainage Characteristics/Odor serous 08/31/2015 11:00 AM Drainage Amount copious 08/31/2015 11:00 AM Wound Cleaning cleansed with;other (see comments) 08/31/2015 11:00 AM Dressing Dressing removed;Dressing applied;foam 08/31/2015 11:00 AM Nutritional Status Wt Readings from Last 1 Encounters: 08/30/15 173.8 kg (383 lb 2.6 oz) Body mass index is 54.98 kg/(m^2). Labs Lab Results Component Value Date ALBUMIN 3.1* 08/30/2015 ALBUMIN 3.2 09/17/2014 ALBUMIN 3.0* 09/16/2014 WBC 10.9* 08/31/2015 WBC 25.7* 08/30/2015 WBC 9.3 09/16/2014 HGB 13.5* 08/31/2015 HGB 14.2 08/30/2015 HGB 15.4 09/16/2014 HCT 42.3 08/31/2015 HCT 44.3 08/30/2015 HCT 47.5 09/16/2014 Nutritional Intake Nutrition Assessments Diet/Nutrition Prescription: NPO Fluids: adequate Fluids Requirement: IVF Nutrition Risk Screen (Admission and every 4 days/sig change): no indicators present Nutrition Interventions Nutrition Interventions: refer to dietitian Current bed: [facility] AIR Assessment: Venous stasis ulceration with his left lateral lower leg. Due to the edema and copious amounts of drainage, he would benefit from compression. However, he is not open to that at this time. Prior to compression, he wound benefit from an KELLI/TBI to determine if he has any arterial diseaseto his lower leg, as this will aid in determination of the proper amount of compression he should receive. Wound Care Recommendations: KELLI's/TBI followed by compression. (per patient wishes, will defer for now.) Right lateral lower leg: Mepilex Border dressing-change every 3 days and PRN: 1. Cleanse wound with dermal wound cleanser. 2. Apply Mepilex Border dressing If he requires more than daily dressing changes above, change to the following plan: 1. Cleanse wound with dermal wound cleanser. 2. Apply Mepilex Transfer over wound (PS# [id number]) 3. Cover with ABD Pad or burn pad. Change ABD/burn pad as needed, leaving Mepilex Transfer in place for up to 5 days (The mepilex transfer will look wet, which is expected. Leave in place regardless, as it works to wick moisture away from the skin and out onto the ABD or burn pad.) Wound Care Team will plan to follow: weekly. .The patient will benefit from follow up [facility]. A referral can be made by calling [phone] or by placing a [facility] wound referral. Discussed plan with: /JODY/PA: Dr. Heredia RN: Zahra Please contact PAUL JOHNSON RN on pager [phone] or the wound care team at [phone] or pager [phone] with skin and wound care concerns or questions. * Consult Note - Vickie Salazar RN - 08/31/2015 9:55 AM EST Consulted with patient as sepsis RN Patient was febrile yesterday prior to ESRP, increased RR Patient appears to have mild SOB Reports new cough, productive, yellow CPAP at bedside, reports he uses this normally 92% on RN Denies any pain Haque still in place with dark eusebio urine Grossly obese, Bilateral lower leg edema, left leg is leaking brown/yellow fluid, wound lead consultant at bedside, newbandage applied A/ox4, waiting lab results Sepsis bundle inititaed, 500cc fluid bolus held Dry mucous membranes, but patient has been NPO GI and Surgery team at bedside, aware of plan of care, [place] primary RN aware of plan of catre * Plan of Care - Makenzie Penaloza RN - 08/31/2015 4:35 AM EST Problem: General Plan of Care Goal: Plan of Care Review Outcome: Ongoing (Interventions Implemented as Appropriate) 08/30/15 0406 08/30/152009 Plan of Care Review Plan of Care Outcome Status ongoing (interventions implemented as appropriate) -- Progress improving -- Coping/Psychosocial Response Interventions Plan of Care Reviewed with -- patient OUTCOME EVALUATION NOTE: OUTCOME SUMMARY: Jimbo came back from the PACU in a comfortable state early on in the shift. He had one bought of nausea after coming back which was relieved with zofran. He has had no c/o pain stating he was comfortable. He was able to sleep with his CPAP on overnight. He has had no reported telemetry events. Will continue to monitor. PLAN MOVING FORWARD: Monitor for pain. Pt would like haque out as soon as possible. Team deciding whether he will be having surgery to extract his gallbladder on this hospital stay or later. INDIVIDUALIZED FALL PREVENTION: Assistance: 1 assist with a cane Supervision: 1 assist with some ADL's, independent with most. Surveillance: Masimo, telemetry, call estevez in reach, purposeful rounding. CPG OUTCOME EVALUATION: Goal: Individualization and Mutuality Outcome: Ongoing (Interventions Implemented as Appropriate) 08/30/15 0237 Mutuality/Individual Preferences What anxieties, fears or concerns do you have about your health or care? is retiring, financial concerns What questions do you have about your health or care? will i be able to go home tomorrow What information would help us give you more personalized care? none Goal: Fall Prevention-Safe Patient Handling Outcome: Ongoing (Interventions Implemented as Appropriate) 08/30/15 0810 08/30/15200908/30/15 2338 Vale Fall Risk History of Falling -- 0 -- Secondary Diagnosis -- 15 -- Ambulatory Aids -- 15 -- Intravenous Therapy/Heparin/Saline Lock -- 20 -- Gait/Transferring -- 10 -- Mental Status -- 0 -- Score -- 60 -- Activity and Safety Assistive Device -- -- Cane OTHER Vale Fall Risk High -- -- Safety Interventions Safety Precautions/Fall Reduction -- fall reduction program maintained;lighting adjusted for task/safety -- Musculoskeletal Interventions Activity/Level of Assistance -- -- up in room;ambulated;with 1-person assist Positioning -- HOB up 30 degrees -- Goal: Infection Control Outcome: Ongoing (Interventions Implemented as Appropriate) 08/30/152009 Safety Interventions Isolation Precautions standard precautions maintained Coping/Psychosocial Response Interventions Counseling reassurance provided Goal: Discharge Needs Assessment Outcome: Ongoing (Interventions Implemented as Appropriate) 08/30/15 0237 08/30/15 0406 Discharge Needs Assessment Concerns to be Addressed -- no discharge needs identified Current Health Anticipated Changes Related to Illness -- none Self-Care Equipment Currently Used at Home cane, straight -- Living Environment Transportation Available family or friend will provide -- * Consult Note - Walt Saini MD - 08/30/2015 10:59 AM EST GASTROENTEROLOGY & HEPATOLOGY CONSULTATION Initial Consult Note Jaime Crouch 1945 [id number] Requesting Provider: Team Surgery REASON FOR CONSULTATION Cholangitis HISTORY OF PRESENT ILLNESS Jaime Crouch is a 69 y.o. year old afib (on couamdin), HTN, HLD, CAD s/p stenting to LAD, ?cholangitis with ERCP and sphincterotomy in September 2014 who presents with worsening RUQ and epgastric abdominal pain consistent with episode that he had in September. He reports that he was having worsening pain yesterday that brought him into the hospital. He reports that it came on suddenly in the right upper quadrant and epigastrium with some nausea, but not vomiting. He believes that this is similar to his other gallbaldder attacks. He reports that after thelast episode he has had a number of similar episodes that last briefly. Since he changed his diet an d has lost 38 pounds, these attacks have occurred less frequently. When he presented to [facility] he wasfound to have WBC 18, elevated liver tests. A CT scan should gallstone, and choledocholithiasis. Hereports his urine has been dark for >2 months. He denies any fevers, chills, vomiting, chest pain, SOB, jaundice, dysphagia, odynophagia. ROS: 10 point ROS negative other than that described above. ACTIVE GI PROBLEM LIST: PAST MEDICAL/SURGICAL HISTORY: Past Medical History Diagnosis Date ??? Kidney stone ??? Hypertension ??? ASCVD (arteriosclerotic cardiovascular disease) 1993 first SD 1992, stent to LAD in 2006 ??? Atrial fibrillation chronic anticoagulation ??? Nephrolithiasis hx of nephrostomy tube and posterior approach removal ??? HLD (hyperlipidemia) ??? Chronic venous insufficiency ??? TOM on CPAP ??? DVT (deep venous thrombosis) ??? PE (pulmonary embolism) MEDICATIONS ??? ampicillin-sulbactam 3 g Intravenous Q6H KYLEE ??? atorvastatin 80 mg Oral QPM ??? DILTiazem 60 mg Oral Q6H KYLEE ??? lisinopril 20 mg Oral Daily ??? meTOPROLOL tartrate 50 mg Oral BID ??? sodium chloride 0.9 % 5 mL Intravenous BID ??? famotidine 20 mg Oral BID Or ??? famotidine 20 mg Intravenous BID ??? furosemide 20 mg Oral BID ??? lactated ringers 50 mL/hr (08/30/15 0634) sodium chloride 0.9 %, lidocaine, nalOXone, ondansetron OR ondansetron, HYDROmorphone ALLERGIES No Known Allergies SOCIAL HISTORY History Social History ??? Marital Status: Spouse Name: N/A Number of Children: N/A ??? Years of Education: N/A Occupational History ??? Not on file. Social History Main Topics ??? Smoking status: Former Smoker ??? Smokeless tobacco: Never Used ??? Alcohol Use: Yes Comment: varies on kind, drinks maybe once a week\ ??? Drug Use: No ??? Sexual Activity: Not Currently Other Topics Concern ??? Not on file Social History Narrative FAMILY HISTORY History reviewed. No pertinent family history. Filed Vitals: 08/30/15 0145 08/30/15 0236 08/30/15 0414 08/30/15 0810 BP: 103/55 96/54 110/63 117/66 Pulse: 111 111 112 91 Temp: 36.8 ??C (98.2 ??F) 37 ??C (98.6 ??F) TempSrc: Oral Resp: 17 24 18 SpO2: 93% 96% 96% PHYSICAL EXAM GENERAL: Well appearing, NAD, obese HENT: AT/NC, Sclerae anicteric CHEST: CTA CARDIAC: RRR: Normal S1, S2, no appreciable murmurs. ABDOMEN: Soft, NABS, NT/ND EXT: Warm, evidence of venous stasis disease LABS: Lab Results Component Value Date SODIUM 141 08/30/2015 POTASSIUM 4.0 08/30/2015 CHLORIDE 103 08/30/2015 CO2 21* 08/30/2015 BUN 14 08/30/2015 CREATININE 0.91 08/30/2015 GLUCOSE LVL 122 08/30/2015 CBC Lab Results Component Value Date WBC 25.7* 08/30/2015 HEMOGLOBIN 14.2 08/30/2015 HEMATOCRIT 44.3 08/30/2015 PLATELETS 260 08/30/2015 LFT's Lab Results Component Value Date ALK PHOS 254* 08/30/2015 AST 159* 08/30/2015 ALBUMIN 3.1* 08/30/2015 BILI, DIRECT 3.7* 08/30/2015 TOTAL BILIRUBIN 4.1* 08/30/2015 ALT 167* 08/30/2015 TOTAL PROTEIN 6.9 08/30/2015 IMAGING: reviewed ENDOSCOPY: Reviewed IMPRESSION: Jaime Crouch is a 69 y.o. male with PMH significant for afib (on coumadin), HTN, HLD, CAD s/p stenting to LAD, ?cholangitis with ERCP and sphincterotomy in September 2014 who presents with worsening RUQ and epgastric abdominal pain consistent with episode that he had in September. Given that he has liver tests consistent with obstruction, a significant leukocytosis, and a CT scan with choledocholithiasis, his presentation is very concerning for cholangitis. His lipase is normal and unlikely to be gallstone pancreatitis. RECOMMENDATIONS: # Continue IV antibiotics # NPO for ERCP today # Will need to discuss with advanced endoscopists goal INR The plan as outlined above was discussed with Dr. Saini. The recommendations were discussed with theprimary team. Brigette Staples MD Fellow in Gastroenterology [phone] ATTENDING ADDENDUM I interviewed and examined Jaime Crouch with Dr. Staples on rounds today. I have discussedthe case with her and confirm the history and brandon physical findings outlined in this note. The assessment and plan were formulated in discussion with me at the time of this encounter, and I agree with them as documented. Review of the CT shows multiple stone in the GB and a stone in the distal CBD. With elev WBC and bilirubin, I think we should proceed with ERCP today. Also recommend cholecystectomy prior to discharge this admission. Continue amp/sul. Sarika Saini MD [employer] Counsel[employer]il[employer] maker Section of Gastroenterology [place] [address] * Consult Note - Evette Young RCP - 08/30/2015 8:16 AM EST Pt seen for referral for cpap. When I arrived pt was sitting in chair with home cpap unit set up. Pt states that he doesn't use a humidifier on his unit and that he has no concerns with its function.Pt did c/o of slight cough that started yesterday, Bilat. BS clear, no coughing was witnessed- RN was notified. RT will follow for nocturnal Cpap * Plan of Care - Makenzie Penaloza RN - 08/30/2015 4:10 AM EST Problem: General Plan of Care Goal: Plan of Care Review Outcome: Ongoing (Interventions Implemented as Appropriate) 08/30/15 0215 08/30/15 0406 Plan of Care Review Plan of Care Outcome Status -- ongoing (interventions implemented as appropriate) Progress -- improving Coping/Psychosocial Response Interventions Plan of Care Reviewed with patient -- OUTCOME EVALUATION NOTE: OUTCOME SUMMARY: Jimbo came to us with minimal c/o pain, stating that a 3/10 was tolerable for him. He has no c/o nausea. He is very pleasant. His HR in the last 1.5 hours since admission to the floor has been mostlyin the 120's but has had frequent jumps to the high 130's low 140's. He does have a history of a.fib and takes diltizem at home, this will be continued here. Pt stated he missed his evening dose d/t coming to the hospital, diltizem IV push was given at [facility]. Based on his heart rate jumping up frequently, suggested giving 0600 diltizem PO early. Administered around 0420 and also fixed pt CPAP machine, the pt HR is jumping less frequently. Will continue to monitor. PLAN MOVING FORWARD: Continue to monitor HR, BP, any pain or nausea that may occur. INDIVIDUALIZED FALL PREVENTION: Assistance: 1 assist with cane. Supervision: 1 assist with ADL's. Surveillance: Masimo, telemetry, purposeful rounding and call estevez in reach. CPG OUTCOME EVALUATION: Goal: Individualization and Mutuality Outcome: Ongoing (Interventions Implemented as Appropriate) 08/30/15236 Mutuality/Individual Preferences What anxieties, fears or concerns do you have about your health or care? is retiring, financial concerns What questions do you have about your health or care? will i be able to go home tomorrow What information would help us give you more personalized care? none Goal: Fall Prevention-Safe Patient Handling Outcome: Ongoing (Interventions Implemented as Appropriate) 08/30/15214 Vale Fall Risk History of Falling 0 Secondary Diagnosis 15 Ambulatory Aids 15 Intravenous Therapy/Heparin/Saline Lock 20 Gait/Transferring 10 Mental Status 0 Score 60 Activity and Safety Assistive Device Cane OTHER Vale Fall Risk High Safety Interventions Safety Precautions/Fall Reduction commode/urinal/bedpan at bedside;lighting adjusted for task/safety Musculoskeletal Interventions Activity/Level of Assistance with 1-person assist;with cane Positioning HOB up 15 degrees;independent Goal: Infection Control Outcome: Ongoing (Interventions Implemented as Appropriate) 08/30/15214 Safety Interventions Isolation Precautions standard precautions maintained Coping/Psychosocial Response Interventions Counseling reassurance provided;relaxation techniques promoted Goal: Discharge Needs Assessment Outcome: Ongoing (Interventions Implemented as Appropriate) 08/30/1523608/30/15 0406 Discharge Needs Assessment Concerns to be Addressed -- no discharge needs identified Current Health Anticipated Changes Related to Illness -- none Self-Care Equipment Currently Used at Home cane, straight -- Living Environment Transportation Available family or friend will provide -- * ED Triage - Lolita Valiente RN - 08/30/2015 12:38 AM EST Patient arrives by EMS from [facility] after having had abdominal pain this morning that increased as theday went on. Patient was diagnosed with cholecystitis at [facility] and comes here tonight to consult with surgery. A/Ox4, respirations even and unlabored. documented in this encounter Plan of Treatment Pending Results Name Type Priority Associated Diagnoses Date /Time Transfuse thawed plasma Blood Bank Routine 08/30/2015 2:49 PM EST FILM LIBRARY-FLUORO OR [id number] ONL Imaging Routine 08/30/2015 5:4 7 PM EST Scheduled Orders Name Type Priority Associated Diagnoses Orde r Schedule FILM LIBRARY-FLUORO OR [id number] ONL Imaging Routine Once PRN (f or Radiant use) for 1 Occurrences starting 08/30/2015 until 08/30/2015 FILM LIBRARY-FLUORO OR [id number] ONL Imaging Routine Once PRN (f or Radiant use) for 1 Occurrences starting 09/01/2015 until 09/01/2015 documented as of this encounter Procedures Procedure Name Priority Date/Time Associated Diagnosis Comments LAB SCAN 09/03/2015 12:00 AM EST TIN FLIPPER SCAN 09/03/2015 12:00 AM EST ECG SCAN 09/03/2015 12:00 AM EST CMP W/FASTING GLUCOSE Routine 09/02/2015 2:10 AM EST HEMOGRAM Routine 09/02/2015 2:10 AM EST PHOSPHORUS Routine 09/02/2015 2:10 AM EST XR CHEST ONE VIEW STAT 09/01/2015 1:0 7 PM EST BLOOD GAS ARTERIAL POC Routine 5 1:01 PM EST BLOOD GAS ARTERIAL POC Routine 5 12:06 PM EST SURGICAL PATHOLOGY REPORT Routine 09/01/2015 11:56 AM EST SPECIMEN TO PATHOLOGY Routine 09/01/2015 11:56 AM EST BLOOD GAS ARTERIAL POC Routine 5 10:39 AM EST LAPAROSCOPIC CHOLECYSTECTOMY Routine 09/01/2015 9:16 AM EST LAPAROSCOPIC CHOLECYSTECTOMY (WRVU 10.47) 09/01/2015 8:30 AM EST acute cholangitis CMP W/FASTING GLUCOSE Routine 09/01/2015 4:01 AM EST HEMOGRAM Routine 09/01/2015 4:01 AM EST PHOSPHORUS Routine 09/01/2015 4:01 AM EST HEPATITIS C ANTIBODY Routine 08/31/2015 3:38 PM EST HEPATITIS A ANTIBODY, IGM Routine 08/31/2015 3:38 PM EST HEPATITIS A ANTIBODY, TOTAL Routine 08/31/2015 3:38 PM EST LACTATE, WHOLE BLOOD STAT 08/31/2015 3:38 PM EST HEPATITIS C RNA, QUANTITATIVE, PCR Routine 08/31/2015 3:38 PM EST HEPATITIS B SURFACE ANTIBODY Routine 08/31/2015 3:38 PM EST HEPATITIS B SURFACE ANTIGEN Routine 08/31/2015 3:38 PM EST BLOOD CULTURE STAT 08/31/2015 9:45 AM EST CMP W/FASTING GLUCOSE STAT 08/31/2015 9:35 AM EST GOLD TUBE HOLD STAT 08/31/2015 9:35 AM EST BLUE TUBE HOLD STAT 08/31/2015 9:35 AM EST BLOOD CULTURE STAT 08/31/2015 9:35 AM EST AMYLASE STAT 08/31/2015 9:35 AM EST BMP W/FASTING GLUCOSE Routine 08/31/2015 9:34 AM EST HEMOGRAM Routine 08/31/2015 9:34 AM EST DIFFERENTIAL, AUTOMATED Routine 08/31/20 15 9:34 AM EST LACTATE, WHOLE BLOOD STAT 08/31/2015 9:34 AM EST PHOSPHORUS Routine 08/31/2015 9:34 AM EST LACTATE, WHOLE BLOOD STAT 08/31/2015 4:37 AM EST LACTATE, WHOLE BLOOD STAT 08/30/2015 8:59 PM EST PROTHROMBIN TIME STAT 08/30/2015 6:30 PM EST PREPARE THAWED PLASMA STAT 08/30/2015 4:35 PM EST ERCP (WRVU 5.85) Yes 08/30/2015 4:32 PM EST cholangoangitis PROTHROMBIN TIME STAT 08/30/2015 3:55 PM EST LACTATE, WHOLE BLOOD STAT 08/30/2015 3:00 PM EST PREPARE THAWED PLASMA Routine 08/30/2015 3:00 PM EST TRANSFUSE THAWED PLASMA Routine 08/30/20 15 1:27 PM EST ECHO COMPLETE Routine 08/30/2015 10:46 AM EST Preop testing LACTATE, WHOLE BLOOD STAT 08/30/2015 9:11 AM EST ABO/RH TYPING Routine 08/30/2015 9:11 AM EST ANTIBODY SCREEN Routine 08/30/2015 9:11 AM EST TYPE AND SCREEN ([facility]/CGP/LEONIDAS) Routine 08/30/2015 9:11 AM EST PREPARE THAWED PLASMA Routine 08/30/2015 7:30 AM EST EKG 12-LEAD STAT 08/30/2015 1:28 AM EST Atrial fibrillation, unspecified DIFFERENTIAL, MANUAL STAT 08/30/2015 1:25 AM EST HEMOGRAM STAT 08/30/2015 1:25 AM EST GOLD TUBE HOLD STAT 08/30/2015 1:25 AM EST LACTATE, WHOLE BLOOD STAT 08/30/2015 1:25 AM EST APTT STAT 08/30/2015 1:25 AM EST PROTHROMBIN TIME STAT 08/30/2015 1:25 AM EST CBC (WITH DIFF) STAT 08/30/2015 1:25 AM EST LIPASE STAT 08/30/2015 1:25 AM EST HEPATIC FUNCTION PANEL STAT 5 1:25 AM EST BASIC METABOLIC PANEL STAT 08/30/2015 1:25 AM EST FILM LIBRARY STORAGE ONLY DX CHEST STAT 08/29/2015 12:05 AM EST Pain FILM LIBRARY STORAGE ONLY CT ABDOMEN AND PELVIS STAT 08/29/2015 12:00 AM EST Pain ERCP (WRVU 5.85) cholangoangitis documented in this encounter Results * SCAN DOC: LAB (09/03/2015 12:00 AM EST) Scanning Provider MEDIA MGR SCAN EXT O RDR/RSLT * SCAN DOC: TIN FLIPPER (09/03/2015 12:00 AM EST) Anatomical Region Laterality Modality Other Scanning Provider MEDIA MGR SCAN EXT O RDR/RSLT * SCAN DOC: ECG (09/03/2015 12:00 AM EST) Scanning Provider MEDIA MGR SCAN EXT O RDR/RSLT * (ABNORMAL) CMP w/fasting Glucose (09/02/2015 2:10 AM EST) Glucose Fasting 151(H) 65 - 99 mg/dL CERNER MILLENNIUM Comment: ?Fasting* Glucose Interpretive Criteria Normal ?65-99 [...] of Diabetes Mellitus, Position Statement from the [place] [employer]. ??Diabetes Care, Volume 33, Supplement 1, Sep 2009 Blood Urea Nitrogen 16 10 - 20 mg/dL CERNER MILLENNIUM Creatinine 0.90 0.80 - 1.50 mg/dL CERNER MILLENNIUM Comment: Please note that the pediatric reference intervals supplied above were not validated at [facility]. Results from pediatric patients should be interpreted in conjunction to the patient's age, height and muscle mass. Sodium 141 135 - 145 mmol/L CERNER MILLENNIUM Potassium 4.1 3.5 - 5.0 mmol/L CERNER MILLENNIUM Comment: Please note: ??Patients with WBC >100,000 may have falsely elevated Potassium levels. ??For accurate Potassium quantification in these patients send serum separator tube (gold top) for subsequent determinations. ??Contact the Clinical Chemistry Laboratory if there are any questions. Chloride 101 98 - 107 mmol/L CERNER MILLENNIUM Carbon Dioxide 26 22 - 31 mmol/L CERNER MILLENNIUM Anion Gap 14 5 - 15 mmol/L CERNER MILLENNIUM Calcium 9.3 8.5 - 10.5 mg/dL CERNER MILLENNIUM Protein, Total 7.0 6.1 - 8.0 gm/dL CERNER MILLENNIUM Albumin 2.8(L) 3.2 - 5.2 gm/dL CERNER MILLENNIUM Aspartate Aminotransferase 72(H) 0 - 39 unit/L CERNER MILLENNIUM Alanine Aminotransferase 111(H) 0 - 55 unit/L CERNER MILLENNIUM Alkaline Phosphatase 241(H) 40 - 120 unit/L CERNER MILLENNIUM Bilirubin, Total 1.6(H) 0.2 - 1.3 mg/dL CERNER MILLENNIUM Bilirubin, Direct 0.9(H) 0.0 - 0.3 mg/dL CERNER MILLENNIUM Est Glomerular Filtration Rate >60 >=60 CERNER MILLENNIUM Comment: This estimated GFR (eGFR) value was [...] the following links into your internet browser. [email or web address] Blood specimen (specimen) 09/02/2015 2:10 AM EST 09/02/2015 2:23 AM EST Narrative Resulting Agency Comment Spec In Lab Delroy Chu MD CHEMISTRY ORDERABLES Performing Organization Address [facility] Phone Number [facility] * (ABNORMAL) Phosphorus (09/02/2015 2:10 AM EST) Phosphorus 2.4(L) 2.5 - 4.5 mg/dL CERNER MILLENNIUM Blood specimen (specimen) 09/02/2015 2:10 AM EST 09/02/2015 2:23 AM EST Narrative Resulting Agency Comment Spec In Lab Delroy Chu MD CHEMISTRY ORDERABLES Performing Organization Address [facility] Co de Phone Number [facility] * (ABNORMAL) Hemogram (09/02/2015 2:10 AM EST) White Blood Cell 13.3(H) 4.0 - 10.0 x10(3)/mc L CERNER MILLENNIUM Red Blood Cell 4.56(L) 4.63 - 6.08 x10(6)/mc L CERNER MILLENNIUM Hemoglobin 13.2(L) 13.7 - 17.5 gm/dL CERNER MILLENNIUM Hematocrit 41.7 40.0 - 51.0 % CERNER MILLENNIUM Mean Cell Volume 91.4 79.0 - 92.0 fL CERNER MILLENNIUM Mean Cell Hemoglobin 28.9 25.6 - 32.2 pg CERNER MILLENNIUM Mean Cell Hemoglobin Concentration 31.7(L) 32.0 - 36.5 gm/dL CERNER MILLENNIUM Platelet 270 145 - 370 x10(3)/mc L CERNER MILLENNIUM RDW Standard Deviation 58.7(H) 35.0 - 46.0 fL CERNER MILLENNIUM RDW coefficient of variation 17.7(H) 10.9 - 14.4 % CERNER MILLENNIUM Mean Platelet Volume 9.8 9.0 - 12.0 fL CERNER MILLENNIUM Blood specimen (specimen) 09/02/2015 2:10 AM EST 09/02/2015 2:23 AM EST Narrative Resulting Agency Comment Spec In Lab Delroy Chu MD HEMATOLOGY ORDERABLE S MAXIMO NERI * XR Chest Pa or AP- 1 View (09/01/2015 1:07 PM EST) Anatomical Region Laterality Modality Chest N/A Digital Radiogra phy Impressions 09/01/2015 1:13 PM EST IMPRESSION: Very limited as above, cannot exclude airspace disease, pulmonary edema, atelectasis, effusions. Narrative 09/01/2015 1:13 PM EST EXAMINATION: XR CHEST PA OR AP 1 VIEW CLINICAL HISTORY: post-op hypoxia. ??eval for pulmonary edema TECHNIQUE: Portable 45 degrees AP chest. 2 views total. COMPARISON: 08/29/2015. FINDINGS: Leads overlying the cardiomediastinal silhouette. Indistinctness and limited characterization of the pulmonary vasculature, hilar regions and cardiomediastinal silhouette. Markedly low lung volumes with atelectasis, haziness, and likely bibasilar consolidation. Limited characterization of the lung apices. Procedure Note Nick Pulliam MD - 09/01/2015 EXAMINATION: XR CHEST PA OR AP 1 VIEW CLINICAL HISTORY: post-op hypoxia. eval for pulmonary edema TECHNIQUE: Portable 45 degrees AP chest. 2 views total. COMPARISON: 08/29/2015. FINDINGS: Leads overlying the cardiomediastinal silhouette. Indistinctness andlimited characterization of the pulmonary vasculature, hilar regions and cardiomediastinal silhouette. Markedly low lung volumes withatelectasis, haziness, and likely bibasilar consolidation. Limited characterization ofthe lung apices. IMPRESSION IMPRESSION: Very limited as above, cannot exclude airspace disease, pulmonary edema, atelectasis, effusions. Delroy Chu MD IMG DX ORDERABLES * (ABNORMAL) BLOOD GAS 2 ARTERIAL (09/01/2015 1:01 PM EST) pH, Arterial 7.37 7.35 - 7.45 CERNER MILLENNIUM PCO2, Arterial 47(H) 35 - 45 mmHg CERNER MILLENNIUM PO2, Arterial 73(L) 85 - 104 mmHg CERNER MILLENNIUM Bicarbonate, Arterial 26.4(H) 20.0 - 26.0 mmol/L CERNER MILLENNIUM Base Excess, Arterial 1.1 -3.0 - 3.0 mmol/L CERNER MILLENNIUM Hgb Blood Gas 15.0 13.7 - 17.5 gm/dL CERNER MILLENNIUM Oxyhemoglobin, Arterial 93.1(L) 94.0 - 97.0 % CERNER MILLENNIUM Carboxyhemoglob in, Arterial 2.1 % CERNER MILLENNIUM Comment: Nonsmokers: 0.5-1.5% COHB Smokers: Variable, but usually less than 10% Toxic: 20-30% COHB Lethal: Greater than 60% COHB Methemoglobin, Arterial 0.1 <=1.5 % CERNER MILLENNIUM Na Whole Blood 142 135 - 145 mmol/L CERNER MILLENNIUM K Whole Blood 4.1 3.5 - 5.0 mmol/L CERNER MILLENNIUM Comment: Please note: Patients with WBC >100,000 may have falsely elevated Potassium levels. Contact the Clinical Chemistry Laboratory if there are any questions. ICa Whole Blood 1.20 1.15 - 1.33 mmol/L CERNER MILLENNIUM Comment: Note: ??Total bilirubin higher than 20 mg/dL may lead to falsely low ionized calcium. CL Whole Blood 105 98 - 107 mmol/L CERNER MILLENNIUM Gluc Whole Bld 171 65 - 199 mg/dL CERNER MILLENNIUM Comment:Diabetes: >=200 mg/d L plus symptoms. Blood specimen (specimen) 09/01/2015 1:01 PM EST 09/01/2015 1:01 PM EST Delroy Chu MD POINT OF CARE TEST O NAKUL CERNER MILLENNIUM * (ABNORMAL) BLOOD GAS 2 ARTERIAL (09/01/2015 12:06 PM EST) pH, Arterial 7.34(L) 7.35 - 7.45 CERNE R MILLENNIUM PCO2, Arterial 52(Critic al) 35 - 45 mmHg CERNER MILLENNIUM Comment:Noted by electrical instrument maker. PO2, Arterial 271(H) 85 - 104 mmHg CERNER MILLENNIUM Bicarbonate, Arterial 27.4(H) 20.0 - 26.0 mmol/L CERNER MILLENNIUM Base Excess, Arterial 1.5 -3.0 - 3.0 mmol/L CERNER MILLENNIUM Hgb Blood Gas 14.9 13.7 - 17.5 gm/dL CERNER MILLENNIUM Oxyhemoglobin, Arterial 97.3(H) 94.0 - 97.0 % CERNER MILLENNIUM Carboxyhemoglo bin, Arterial 2.2 % CERNER MILLENNIUM Comment: Nonsmokers: 0.5-1.5% COHB Smokers: Variable, but usually less than 10% Toxic: 20-30% COHB Lethal: Greater than 60% COHB Methemoglobin, Arterial 0.2 <=1.5 % CERNER MILLENNIUM Na Whole Blood 140 135 - 145 mmol/L CERNER MILLENNIUM K Whole Blood 4.3 3.5 - 5.0 mmol/L CERNER MILLENNIUM Comment: Please note: Patients with WBC >100,000 may have falsely elevated Potassium levels. Contact the Clinical Chemistry Laboratory if there are any questions. ICa Whole Blood 1.18 1.15 - 1.33 mmol/L CERNER MILLENNIUM Comment: Note: ??Total bilirubin higher than 20 mg/dL may lead to falsely low ionized calcium. CL Whole Blood 105 98 - 107 mmol/L CERNER MILLENNIUM Gluc Whole Bld 171 65 - 199 mg/dL CERNER MILLENNIUM Comment:Diabetes: >=200 mg/d L plus symptoms. FIO2 Art 66 % CERNER MILLENNIUM Flow Art 0.8 LPM CERNER MILLENNIUM PF Ratio Art 411 CERNER MILLENNIUM Temp Art 36.6 Celsius CERNER MILLENNIUM Blood specimen (specimen) 09/01/2015 12:06 PM EST 09/01/2015 12:06 PM EST Delroy Chu MD POINT OF CARE TEST O RDERABLES [facility] [facility] * Surgical Pathology Report (09/01/2015 11:56 AM EST) Final Diagnosis [id number] ? Location: [facility]; [facility]; The signing pathologist has (i) examined the relevant preparation(s) for the specimen(s) and (ii) rendered or confirmed the diagnosis(es). . ?Surgical Pathology DIAGNOSIS Gallbladder, cholecystectomy: Acute and chronic cholecystitis. Cholelithiasis. 09/04/15 BJM 09/05/15 Verified by: ? Josue Hardin MD ?Pathologist ?(Electronic Signature) The attending pathologist whose signature appears on this report has reviewed all diagnostic slides and has edited the gross and/or microscopic portion of the report in rendering the final pathologic diagnosis. CLINICAL INFORMATION Specimen Submitted: A - Gallbladder and stones Clinical History: Acute cholangitis Clinical Diagnosis: Same SPECIMEN PROCESSING A - Labeled/Fixative: Gallbladder, fresh. Quantity/Size: Single, 12.0 x 4.3 x 2.5 cm. Specimen Description: Intact, with multiple, focal defects in the adventitia. ??External surface: Mejia-pink, smooth and glistening with a ragged adventitia containing multiple defects. ??Lumen contents: Not identified. ? Gallstones: Multiple, approximately 10, yellow-black, multifaceted, smooth walled choleliths ranging from 0.8-1.8 cm ??Mucosa: Mejia-red, velvety. ??Wall: Ranging from 0.1-0.4 cm. ??Duct: Patent. ??Lymph Node: Not identified. ??Ink Designation: Black on the adventitia. Sections/Processi ng: (1) cystic duct margin, neck, body; (2) fundus. (R2) ??kef/shb 09/05/2015 11:18 AM EST [facility] GALLBLADDER STRUCTURE / Unknown 09/01/2015 11:56 AM EST 09/01/2015 11:56 AM EST Jay Chambers MD PATHOLOGY/CYTOLOGY ORDERABLES [facility] [place] [address] * Specimen to Pathology (surgical or derm) (09/01/2015 11:56 AM EST) AP Specimen 09/01/2015 11:5 6 AM EST 09/01/2015 11:56 AM EST Narrative [facility] 09/01/2015 11:56 AM EST Specimen requisition ordered. ??Separate Pathology report to follow Delroy Chu MD PATHOLOGY/CYTOLOGY O RDERABLES [facility] * (ABNORMAL) BLOOD GAS 2 ARTERIAL (09/01/2015 10:39 AM EST) pH, Arterial 7.40 7.35 - 7.45 CERNER MILLENNIUM PCO2, Arterial 45 35 - 45 mmHg CERNER MILLENNIUM PO2, Arterial 164(H) 85 - 104 mmHg CERNER MILLENNIUM Bicarbonate, Arterial 27.4(H) 20.0 - 26.0 mmol/L CERNER MILLENNIUM Base Excess, Arterial 2.6 -3.0 - 3.0 mmol/L CERNER MILLENNIUM Hgb Blood Gas 14.4 13.7 - 17.5 gm/dL CERNER MILLENNIUM Oxyhemoglobin, Arterial 97.6(H) 94.0 - 97.0 % CERNER MILLENNIUM Carboxyhemoglob in, Arterial 1.5 % CERNER MILLENNIUM Comment: Nonsmokers: 0.5-1.5% COHB Smokers: Variable, but usually less than 10% Toxic: 20-30% COHB Lethal: Greater than 60% COHB Methemoglobin, Arterial 0.0 <=1.5 % CERNER MILLENNIUM Na Whole Blood 140 135 - 145 mmol/L CERNER MILLENNIUM K Whole Blood 4.2 3.5 - 5.0 mmol/L CERNER MILLENNIUM Comment: Please note: Patients with WBC >100,000 may have falsely elevated Potassium levels. Contact the Clinical Chemistry Laboratory if there are any questions. ICa Whole Blood 1.17 1.15 - 1.33 mmol/L CERNER MILLENNIUM Comment: Note: ??Total bilirubin higher than 20 mg/dL may lead to falsely low ionized calcium. CL Whole Blood 105 98 - 107 mmol/L CERNER MILLENNIUM Gluc Whole Bld 153 65 - 199 mg/dL CERNER MILLENNIUM Comment:Diabetes: >=200 mg/d L plus symptoms. Blood specimen (specimen) 09/01/2015 10:39 AM EST 09/01/2015 10:39 AM EST Delroy Chu MD POINT OF CARE TEST O RDERABLES [facility] * (ABNORMAL) CMP w/fasting Glucose (09/01/2015 4:01 AM EST) Glucose Fasting 129(H) 65 - 99 mg/dL CERNER MILLENNIUM Comment: ?Fasting* Glucose Interpretive Criteria Normal ?65-99 [...] of Diabetes Mellitus, Position Statement from the [place] [employer]. ??Diabetes Care, Volume 33, Supplement 1, Sep 2009 Blood Urea Nitrogen 15 10 - 20 mg/dL CERNER MILLENNIUM Creatinine 0.86 0.80 - 1.50 mg/dL CERNER MILLENNIUM Comment: Please note that the pediatric reference intervals supplied above were not validated at [facility]. Results from pediatric patients should be interpreted in conjunction to the patient's age, height and muscle mass. Sodium 141 135 - 145 mmol/L CERNER MILLENNIUM Potassium 3.8 3.5 - 5.0 mmol/L CERNER MILLENNIUM Comment: Please note: ??Patients with WBC >100,000 may have falsely elevated Potassium levels. ??For accurate Potassium quantification in these patients send serum separator tube (gold top) for subsequent determinations. ??Contact the Clinical Chemistry Laboratory if there are any questions. Chloride 104 98 - 107 mmol/L CERNER MILLENNIUM Carbon Dioxide 27 22 - 31 mmol/L CERNER MILLENNIUM Anion Gap 10 5 - 15 mmol/L CERNER MILLENNIUM Calcium 9.0 8.5 - 10.5 mg/dL CERNER MILLENNIUM Protein, Total 6.6 6.1 - 8.0 gm/dL CERNER MILLENNIUM Albumin 2.8(L) 3.2 - 5.2 gm/dL CERNER MILLENNIUM Aspartate Aminotransferase 109(H) 0 - 39 unit/L CERNER MILLENNIUM Alanine Aminotransferase 123(H) 0 - 55 unit/L CERNER MILLENNIUM Alkaline Phosphatase 238(H) 40 - 120 unit/L CERNER MILLENNIUM Bilirubin, Total 3.2(H) 0.2 - 1.3 mg/dL CERNER MILLENNIUM Bilirubin, Direct 2.5(H) 0.0 - 0.3 mg/dL CERNER MILLENNIUM Est Glomerular Filtration Rate >60 >=60 CERNER MILLENNIUM Comment: This estimated GFR (eGFR) value was [...] the following links into your internet browser. [email or web address] Blood specimen (specimen) 09/01/2015 4:01 AM EST 09/01/2015 4:06 AM EST Narrative Resulting Agency Comment Spec In Lab Delroy Chu MD CHEMISTRY ORDERABLES Performing Organization Address [facility] Co de Phone Number CERNER MILLENNIUM * (ABNORMAL) Phosphorus (09/01/2015 4:01 AM EST) Phosphorus 2.0(L) 2.5 - 4.5 mg/dL CERNER MILLENNIUM Blood specimen (specimen) 09/01/2015 4:01 AM EST 09/01/2015 4:06 AM EST Narrative Resulting Agency Comment Spec In Lab Delroy Chu MD CHEMISTRY ORDERABLES Performing Organization Address City/[facility] Co de Phone Number CERNER MILLENNIUM * (ABNORMAL) Hemogram (09/01/2015 4:01 AM EST) White Blood Cell 9.1 4.0 - 10.0 x10(3)/mc L CERNER MILLENNIUM Red Blood Cell 4.48(L) 4.63 - 6.08 x10(6)/mc L CERNER MILLENNIUM Hemoglobin 13.3(L) 13.7 - 17.5 gm/dL CERNER MILLENNIUM Hematocrit 41.1 40.0 - 51.0 % CERNER MILLENNIUM Mean Cell Volume 91.7 79.0 - 92.0 fL [facility]ERDENISE BOWENENNIUM Mean Cell Hemoglobin 29.7 25.6 - 32.2 pg CERDENISE ELYIUM Mean Cell Hemoglobin Concentration 32.4 32.0 - 36.5 gm/dL CERDENISE BOWENENNIUM Platelet 220 145 - 370 x10(3)/mc L CERDENISE BOWENENNIUM RDW Standard Deviation 59.3(H) 35.0 - 46.0 fL CERDENISE BOWENENNIUM RDW coefficient of variation 17.9(H) 10.9 - 14.4 % CERDENISE BOWENENNIUM Mean Platelet Volume 9.0 9.0 - 12.0 fL [facility] Blood specimen (specimen) 09/01/2015 4:01 AM EST 09/01/2015 4:06 AM EST Narrative Resulting Agency Comment Spec In Lab Delroy Chu MD HEMATOLOGY ORDERABLE S Performing Organization Address [facility] Co de Phone Number [facility] * (ABNORMAL) Hepatitis A Antibody, Total (08/31/2015 3:38 PM EST) Hepatitis A ANTIBODY, TOTAL Positive(A ) Negative [facility] Blood specimen (specimen) 08/31/2015 3:38 PM EST 08/31/2015 3:45 PM EST Narrative Resulting Agency Comment Spec In Lab Delroy Chu MD CHEMISTRY ORDERABLES Performing Organization Address [facility] Co de Phone Number [facility] * Hepatitis C RNA, quantitative, PCR (08/31/2015 3:38 PM EST) HCV Viral Load <15 IU/mL [facility] HCV Viral Load Result: <15 IU/mL (Target Not Detected) Indication for Study: Hepatitis C Infection Analysis: A quantitiative real time reverse transcriptase PCR assay was performed on extracted viral RNA for the purpose of quantification. Sample: plasma (1 mL minimum volume) Method: Micheal Brian TaqMAN 48 HCV Linear Range: 15 IU/mL - 100,000,000IU/mL (95% CI) Note: This assay is being performed in the [facility] Molecular Pathology Laboratory. Logan Khan, Ph.D. Director, Molecular Pathology [facility] Comment: [VERIFIED DATE]09.05.15 Verified By:Katy Monzon (Electronic Signature) Blood specimen (specimen) 08/31/2015 3:38 PM EST 09/04/2015 10:42 AM EST Narrative Resulting Agency Comment Spec In Lab Delroy Chu MD MOLECULAR ORDERABLES Performing Organization Address [facility] de Phone Number [facility] * Hepatitis A Antibody, IgM (08/31/2015 3:38 PM EST) Pathologist [facility] Hepatitis A Antibody, IgM Negative Negative [facility] Blood specimen (specimen) 08/31/2015 3:38 PM EST 08/31/2015 3:45 PM EST Narrative Resulting Agency Comment Spec In Lab Delroy Chu MD CHEMISTRY ORDERABLES Performing Organization Address [facility] de Phone Number [facility] * Hepatitis B Surface Antibody (08/31/2015 3:38 PM EST) Pathologist [facility] Hepatitis B Surface Antibody Positive [facility] Comment: Expected Results: Vaccinated: Positive Unvaccinated: Negative Please note: A positive result for this assay is consistent with a concentration of anti-HBs antibodies >10mIU/ml, which indicates that anti-HBs antibodies have been detected at levels consistent with protective immunity against HBV infection. Blood specimen (specimen) 08/31/2015 3:38 PM EST 08/31/2015 3:45 PM EST Narrative Resulting Agency Comment Spec In Lab Delroy Chu MD CHEMISTRY ORDERABLES Performing Organization Address [facility] de Phone Number [facility] * Hepatitis B Surface Antigen (08/31/2015 3:38 PM EST) Pathologist [facility] Hepatitis B Surface Antigen Negative Negative [facility] Blood specimen (specimen) 08/31/2015 3:38 PM EST 08/31/2015 3:45 PM EST Narrative Resulting Agency Comment Spec In Lab Delroy Chu MD CHEMISTRY ORDERABLES Performing Organization Address [facility] Co de Phone Number MAXIMO NERI * Hepatitis C Antibody (08/31/2015 3:38 PM EST) Hepatitis C Antibody Negative Negative [facility] Blood specimen (specimen) 08/31/2015 3:38 PM EST 08/31/2015 3:45 PM EST Narrative Resulting Agency Comment Spec In Lab Delroy Chu MD CHEMISTRY ORDERABLES Performing Organization Address [facility] de Phone Number MAXIMO NERI * Lactate, whole blood, send to lab (08/31/2015 3:38 PM EST) Pathologist [facility] Lactate WB 1.4 0.5 - 2.2 mmol/L [facility] Blood specimen (specimen) 08/31/2015 3:38 PM EST 08/31/2015 3:45 PM EST Narrative Resulting Agency Comment Spec In Lab Delroy Chu MD CHEMISTRY ORDERABLES Performing Organization Address [facility] de Phone Number [facility] * Blood culture (08/31/2015 9:45 AM EST) Pathologist [facility] Blood Culture No growth at 5 days. [facility] Blood specimen (specimen) STRUCTURE OF RIGHT HAND / Unknown 08/31/2015 9:45 AM EST 08/31/2015 10:16 AM EST Comment:DRAW BLOOD CULTURES BEFORE ADMINISTERING ANTIBIOTICS Narrative Resulting Agency Comment Spec In Lab Delroy Chu MD MICROBIOLOGY - BLOOD ORDERABLES Performing Organization Address [facility] Co de Phone Number MAXIMO NERI * (ABNORMAL) CMP w/fasting Glucose (08/31/2015 9:35 AM EST) Glucose Fasting 115(H) 65 - 99 mg/dL [facility] Comment: ?Fasting* Glucose Interpretive Criteria Normal ?65-99 [...] of Diabetes Mellitus, Position Statement from the [place] [employer]. ??Diabetes Care, Volume 33, Supplement 1, Sep 2009 Blood Urea Nitrogen 18 10 - 20 mg/dL CERNER MILLENNIUM Creatinine 0.92 0.80 - 1.50 mg/dL CERNER MILLENNIUM Comment: Please note that the pediatric reference intervals supplied above were not validated at [facility]. Results from pediatric patients should be interpreted in conjunction to the patient's age, height and muscle mass. Sodium 145 135 - 145 mmol/L CERNER MILLENNIUM Potassium 3.9 3.5 - 5.0 mmol/L CERNER MILLENNIUM Comment: Please note: ??Patients with WBC >100,000 may have falsely elevated Potassium levels. ??For accurate Potassium quantification in these patients send serum separator tube (gold top) for subsequent determinations. ??Contact the Clinical Chemistry Laboratory if there are any questions. Chloride 105 98 - 107 mmol/L CERNER MILLENNIUM Carbon Dioxide 26 22 - 31 mmol/L CERNER MILLENNIUM Anion Gap 14 5 - 15 mmol/L CERNER MILLENNIUM Calcium 9.1 8.5 - 10.5 mg/dL CERNER MILLENNIUM Protein, Total 6.2 6.1 - 8.0 gm/dL CERNER MILLENNIUM Albumin 3.2 3.2 - 5.2 gm/dL CERNER MILLENNIUM Aspartate Aminotransferase 117(H) 0 - 39 unit/L CERNER MILLENNIUM Alanine Aminotransferase 136(H) 0 - 55 unit/L CERNER MILLENNIUM Alkaline Phosphatase 262(H) 40 - 120 unit/L CERNER MILLENNIUM Bilirubin, Total 5.3(H) 0.2 - 1.3 mg/dL CERNER MILLENNIUM Bilirubin, Direct 4.7(H) 0.0 - 0.3 mg/dL CERNER MILLENNIUM Est Glomerular Filtration Rate >60 >=60 MAXIMO NERI Comment: This estimated GFR (eGFR) value was [...] the following links into your internet browser. [email or web address] Blood specimen (specimen) STRUCTURE OF LEFT HAND / Unknown Venous Draw / Unknown 08/31/2015 9:35 AM EST 08/31/2015 10:14 AM EST Comment:Draw blood Cultures before administering antibiotics Narrative Resulting Agency Comment Spec In Lab Delroy Chu MD CHEMISTRY ORDERABLES Performing Organization Address [facility] de Phone Number MAXIMO NERI * Amylase (08/31/2015 9:35 AM EST) Amylase 32 28 - 100 unit/L MAXIMO NERI Blood specimen (specimen) STRUCTURE OF LEFT HAND / Unknown Venous Draw / Unknown 08/31/2015 9:35 AM EST 08/31/2015 10:14 AM EST Comment:Draw blood Cultures before administering antibiotics Narrative Resulting Agency Comment Spec In Lab Delroy Chu MD CHEMISTRY ORDERABLES Performing Organization Address [facility] de Phone Number MAXIMO ELYIUM * Gold Tube HOLD (08/31/2015 9:35 AM EST) Gold Hold Sample in lab. MAXIMO NERI Blood specimen (specimen) Venous Draw / Unknown 08/31/2015 9:35 AM EST 08/31/2015 10:13 AM EST Comment:Draw blood Cultures before administering antibiotics Delroy Chu MD CHEMISTRY ORDERABLES Performing Organization Address [facility] de Phone Number MAXIMO NERI * Blue Tube HOLD (08/31/2015 9:35 AM EST) Pathologist [facility] Blue Hold Sample in lab. MAXIMO ELYIUM Blood specimen (specimen) Venous Draw / Unknown 08/31/2015 9:35 AM EST 08/31/2015 10:13 AM EST Comment:Draw blood Cultures before administering antibiotics Delroy Chu MD HEMATOLOGY ORDERABLE S Performing Organization Address City/[facility]/ZIP Co de Phone Number MAXIMO ELYIUM * Blood culture (08/31/2015 9:35 AM EST) Pathologist [facility] Blood Culture No growth at 5 days. MAXIMO ELYIUM Blood specimen (specimen) STRUCTURE OF LEFT HAND / Unknown 08/31/2015 9:35 AM EST 08/31/2015 10:16 AM EST Comment:DRAW BLOOD CULTURES BEFORE ADMINISTERING ANTIBIOTICS Narrative Resulting Agency Comment Spec In Lab Delroy Chu MD MICROBIOLOGY - BLOOD ORDERABLES Performing Organization Address [facility] de Phone Number MAXIMO ELYIUM * (ABNORMAL) Differential, Automated (08/31/2015 9:34 AM EST) Pathologist [facility] Neutrophil % 82.9 % CERNER MILLENNIUM Neutrophil Absolute 9.18(H) 1.50 - 6.30 x10(3)/mc L CERNER MILLENNIUM Lymph % 9.0 % CERNER MILLENNIUM Lymphocytes Abs 1.0 1.0 - 3.6 x10(3)/mc L CERNER MILLENNIUM Monocyte % 6.6 % CERNER MILLENNIUM Monocyte Abs 0.7 0.2 - 1.0 x10(3)/mc L CERNER MILLENNIUM Eos % 0.9 % CERNER MILLENNIUM Eosinophils Abs 0.1 0.0 - 0.5 x10(3)/mc L CERNER MILLENNIUM Basophil % 0.2 % CERNER MILLENNIUM Baso Absolute 0.0 0.0 - 0.2 x10(3)/mc L CERNER MILLENNIUM Immature Gran % 0.40 % CERN ER MILLENNIUM Comment: Immature granulocytes(IG's)percentage and absolute count will include metamyelocytes, myelocytes, and promyelocytes. Blood smears from CBCs yielding IG's will be scanned manually for concordance. If this scan disagrees with the automated IG or if promyelocytes are noted, a manual differential will be performed. Immature Gran Absolute 0.04 0.00 - 0.05 x10(3)/mc L [facility] Blood specimen (specimen) Venous Draw / Unknown 08/31/2015 9:34 AM EST 08/31/2015 9:57 AM EST Narrative Resulting Agency Comment Spec In Lab Delroy Chu MD HEMATOLOGY ORDERABLE S Performing Organization Address [facility] Co de Phone Number [facility] * Lactate, whole blood, send to lab (08/31/2015 9:34 AM EST) Lactate WB 1.1 0.5 - 2.2 mmol/L [facility] Blood specimen (specimen) 08/31/2015 9:34 AM EST 08/31/2015 9:41 AM EST Narrative Resulting Agency Comment Spec In Lab Delroy Chu MD CHEMISTRY ORDERABLES Performing Organization Address [facility] de Phone Number [facility] * (ABNORMAL) Phosphorus (08/31/2015 9:34 AM EST) Phosphorus 2.3(L) 2.5 - 4.5 mg/dL [facility] Blood specimen (specimen) 08/31/2015 9:34 AM EST 08/31/2015 9:57 AM EST Narrative Resulting Agency Comment Spec In Lab Delroy Chu MD CHEMISTRY ORDERABLES Performing Organization Address [facility] Co de Phone Number [facility] * (ABNORMAL) BMP w/fasting Glucose (08/31/2015 9:34 AM EST) Glucose Fasting 120(H) 65 - 99 mg/dL [facility] Comment: ?Fasting* Glucose Interpretive Criteria Normal ?65-99 [...] of Diabetes Mellitus, Position Statement from the [place] [employer]. ??Diabetes Care, Volume 33, Supplement 1, Sep 2009 Blood Urea Nitrogen 18 10 - 20 mg/dL CERNER MILLENNIUM Creatinine 0.91 0.80 - 1.50 mg/dL CERNER MILLENNIUM Comment: Please note that the pediatric reference intervals supplied above were not validated at [facility]. Results from pediatric patients should be interpreted in conjunction to the patient's age, height and muscle mass. Sodium 142 135 - 145 mmol/L CERNER MILLENNIUM Potassium 3.6 3.5 - 5.0 mmol/L CERNER MILLENNIUM Comment: Please note: ??Patients with WBC >100,000 may have falsely elevated Potassium levels. ??For accurate Potassium quantification in these patients send serum separator tube (gold top) for subsequent determinations. ??Contact the Clinical Chemistry Laboratory if there are any questions. Chloride 105 98 - 107 mmol/L CERNER MILLENNIUM Carbon Dioxide 26 22 - 31 mmol/L CERNER MILLENNIUM Anion Gap 11 5 - 15 mmol/L CERNER MILLENNIUM Calcium 9.3 8.5 - 10.5 mg/dL CERNER MILLENNIUM Est Glomerular Filtration Rate >60 >=60 CERNER MILLENNIUM Comment: This estimated GFR (eGFR) value was [...] the following links into your internet browser. [email or web address] Blood specimen (specimen) 08/31/2015 9:34 AM EST 08/31/2015 9:57 AM EST Narrative Resulting Agency Comment Spec In Lab Delroy Chu MD CHEMISTRY ORDERABLES Performing Organization Address [facility]/ZIP Co de Phone Number MAXIMO ELYIUM * (ABNORMAL) Hemogram (08/31/2015 9:34 AM EST) White Blood Cell 10.9(H) 4.0 - 10.0 x10(3)/mc L CERNER MILLENNIUM Red Blood Cell 4.60(L) 4.63 - 6.08 x10(6)/mc L CERNER MILLENNIUM Hemoglobin 13.5(L) 13.7 - 17.5 gm/dL CERNER MILLENNIUM Hematocrit 42.3 40.0 - 51.0 % CERNER MILLENNIUM Mean Cell Volume 92.0 79.0 - 92.0 fL CERNER MILLENNIUM Mean Cell Hemoglobin 29.3 25.6 - 32.2 pg CERNER MILLENNIUM Mean Cell Hemoglobin Concentration 31.9(L) 32.0 - 36.5 gm/dL CERNER MILLENNIUM Platelet 258 145 - 370 x10(3)/mc L CERNER MILLENNIUM RDW Standard Deviation 60.1(H) 35.0 - 46.0 fL CERNER MILLENNIUM RDW coefficient of variation 18.1(H) 10.9 - 14.4 % CERNER MILLENNIUM Mean Platelet Volume 9.4 9.0 - 12.0 fL CERNER MILLENNIUM Blood specimen (specimen) 08/31/2015 9:34 AM EST 08/31/2015 9:57 AM EST Narrative Resulting Agency Comment Spec In Lab Delroy Chu MD HEMATOLOGY ORDERABLE S MAXIMO NERI * Lactate, whole blood, send to lab (08/31/2015 4:37 AM EST) Lactate WB 1.5 0.5 - 2.2 mmol/L CERNER MILLENNIUM Blood specimen (specimen) 08/31/2015 4:37 AM EST 08/31/2015 4:46 AM EST Narrative Resulting Agency Comment Spec In Lab Delroy Chu MD CHEMISTRY ORDERABLES Performing Organization Address [facility] de Phone Number MAXIMO NERI * Lactate, whole blood, send to lab (08/30/2015 8:59 PM EST) Lactate WB 1.1 0.5 - 2.2 mmol/L MAXIMO NERI Blood specimen (specimen) 08/30/2015 8:59 PM EST 08/30/2015 9:04 PM EST Narrative Resulting Agency Comment Spec In Lab Delroy Chu MD CHEMISTRY ORDERABLES Performing Organization Address [facility] Phone Number MAXIMO NERI * (ABNORMAL) Prothrombin Time (08/30/2015 6:30 PM EST) Prothrombin Time 19.3(H) 12.0 - 15.0 sec MAXIMO NERI Comment: Transfusion Committee Guidelines: INR less than 2.0, PTT less than OR equal to 43.5 seconds, or Fibrinogen greater than or equal to 100 mg/dl indicate adequate procoagulant activity for hemostasis in patients without underlying bleeding disorders. International Normalization Ratio 1.6(H) 0.9 - 1.1 MAXIMO NERI Blood specimen (specimen) 08/30/2015 6:30 PM EST 08/30/2015 6:57 PM EST Narrative Resulting Agency Comment Spec In Lab Delroy Chu MD HEMATOLOGY ORDERABLE S Performing Organization Address [facility] de Phone Number MAXIMO NERI * Prepare thawed plasma (08/30/2015 4:35 PM EST) Dispensed? Yes MAXIMO NERI Blood specimen (specimen) 08/30/2015 4:35 PM EST 08/30/2015 4:34 PM EST Narrative Resulting Agency Comment Spec In Lab Delroy Chu MD BLOOD BANK PRODUCT O RDERABLES Performing Organization Address [facility] de Phone Number MAXIMO NERI * (ABNORMAL) Prothrombin Time (08/30/2015 3:55 PM EST) Prothrombin Time 22.2(H) 12.0 - 15.0 sec MAXIMO ELYIUM Comment: Transfusion Committee Guidelines: INR less than 2.0, PTT less than OR equal to 43.5 seconds, or Fibrinogen greater than or equal to 100 mg/dl indicate adequate procoagulant activity for hemostasis in patients without underlying bleeding disorders. International Normalization Ratio 1.9(H) 0.9 - 1.1 MAXIMO BOWENENNIUM Blood specimen (specimen) 08/30/2015 3:55 PM EST 08/30/2015 4:06 PM EST Narrative Resulting Agency Comment Spec In Lab Delroy Chu MD HEMATOLOGY ORDERABLE S Performing Organization Address [facility] Phone Number MAXIMO NERI * Prepare thawed plasma (08/30/2015 3:00 PM EST) Dispensed? No MAXIMO NERI Blood specimen (specimen) 08/30/2015 3:00 PM EST 08/30/2015 2:57 PM EST Narrative Resulting Agency Comment Spec In Lab Delroy Chu MD BLOOD BANK PRODUCT O RDERABLES Performing Organization Address [facility] de Phone Number MAXIMO NERI * Lactate, whole blood, send to lab (08/30/2015 3:00 PM EST) Lactate WB 1.4 0.5 - 2.2 mmol/L MAXIMO ELYIUM Blood specimen (specimen) 08/30/2015 3:00 PM EST 08/30/2015 3:07 PM EST Narrative Resulting Agency Comment Spec In Lab Delroy Chu MD CHEMISTRY ORDERABLES Performing Organization Address [facility] Phone Number MAXIMO ELYIUM * Transfuse thawed plasma (08/30/2015 2:43 PM EST) Delroy Chu MD NURSING TREATMENT OR DERABLES - BLOOD ADMIN * Transfuse thawed plasma (08/30/2015 2:43 PM EST) Delroy hCu MD NURSING TREATMENT OR DERABLES - BLOOD ADMIN * ECHO COMPLETE (08/30/2015 10:46 AM EST) EF 60 HEARTLAB SYSTEM Anatomical Region Laterality Modality Other 08/30/2015 Narrative 08/30/2015 11:54 AM EST Procedure: ?Transthoracic Echocardiogram Patient: ?RAINA WILLIS ?(Age): 1945(69y) Med Rec#: ? [id number] ?Sex: ?M ? [place] Loc: ? [facility] [place]Ht / Wt: ??178(cm)/186(kg) Pt. Loc: ?Adult Floor ? BSA: ?2.83 Study Date: ?? 08/30/2015 ?Pt. Type: Inpatient Tape: ? Referring: JOHN EGAN T Referring: Delroy Chu Reading: Jaime Nguyen ([id number]) Electric Motor Tester Assembler: Tamia Haines Diagnosis: *ICD-10-PCS Encounter for other preprocedural examination (Z01.818) *ICD-10-PCS Unspecified atrial fibrillation (I48.91) CPT Codes: *Echo Full (28687) *Spectral Doppler (33613) *Color Doppler (15160) Rhythm: ? A-Fib BP: ? 117/66 SUMMARY: 1. The left ventricular chamber size is normal. ??There is normal global left ventricular systolic function. ??There are no left ventricular segmental wall motion abnormalities. 2. Right ventricular chamber size, wall thickness, and systolic function are within normal limits. 3. The left atrium is mildly dilated. 4. No significant valvular abnormalities. 5. The estimated pulmonary artery systolic pressure is 42 mmHg. ??The estimated right atrial pressure is 15 mmHg. 6. Other details as noted below. Findings ? : Study Quality: ? Adequate Left Ventricle: ? The left ventricular chamber size is normal. ?There is mild septal hypertrophy of the left ventricle. ?There is no evidence of LVOT obstruction. ?No ventricular septal defect is visualized. ?There is normal global left ventricular systolic function. ?The quantitative left ventricular ejection fraction by biplane Morales's method is 60%. ?There are no left ventricular segmental wall motion abnormalities. ?Left sided filling pressure could not be assessed by Doppler. Left Atrium: ? The left atrium is mildly dilated. ?No atrial septal defect is visualized. Right Ventricle: ? Right ventricular chamber size, wall thickness, and systolic function are within normal limits. ?The right ventricle is mildly dilated. ?Right ventricular global systolic function is mildly reduced. ?There is evidence of moderate pulmonary hypertension. ?The estimated pulmonary artery systolic pressure is 42 mmHg. ?The estimated right atrial pressure is 15 mmHg. Right Atrium: ? The right atrium is moderately dilated. Aortic Valve: ? The aortic valve is trileaflet. The leaflets are thin with normal excursion. There is no aortic stenosis or regurgitation present. ?The aortic valve is probably tricuspid. ?The right coronary cusp of the aortic valve is thickened. ?There is no evidence of aortic valve stenosis. ?There is no evidence of aortic regurgitation. Mitral Valve: ? The mitral valve appears normal in structure and function. ?There is no evidence of mitral valve leaflet prolapse. ?There is trace mitral regurgitation present. Tricuspid Valve: ? The tricuspid valve appears normal in structure and function. ?There is trace tricuspid regurgitation present. Pulmonic Valve: ? The pulmonic valve is not well visualized. Pericardium: ? The pericardium appears normal and there is no evidence of a pericardial effusion. Aorta: ? The aortic root is normal in size. ?The ascending aorta is normal in size. ?There is no evidence of coarctation of the aorta. Pulmonary Artery: ? The main pulmonary artery is not well visualized. Venous: ? The inferior vena cava appears dilated. ?There is less than 50% respiratory change in the inferior vena cava dimension consistent with elevated right atrial pressure. Misc: ? Two-dimensional echo, spectral Doppler and color Doppler performed. Chambers 2D ?Value ?Units (Range) ? IVSd (2D) ? 1.5 ?cm ? LVPWd (2D) ?0.7 ?cm ? LVIDd (2D) ?5.8 ?cm ? LVIDs (2D) ?4.6 ?cm ? LV FS (2D) ?20 ? % ? EF Teichholz (2D) ?? 41 ? % ? Ao root diameter (2D4 ?cm (2.1 - 3.6) ? Ascending Ao ?4 ?cm (2 - 3.5) ? Volumes/Mass ?Value ?Units (Range) ? LA Area 4 CH ?29 ? cm2 (<21) ? RA AREA 4CH ? 29 ? cm2 ? LA ESV BP (MOD) inde36 ? ml/m2 ? LV EDV BP ? 151 ?ml ? LV ESV BP ? 61 ? ml ? BP EF (MOD) ? 60 ? % ? LV mass (2D) ?274 ?g ? LV mass (2D) index ??96.8 ? g/m2 ? Diastolic/Systolic Function ?Value ?Units (Range) ? MV E-wave Vmax ?1.3 ?m/sec ? LV septal e' Vmax ?? 0.1 ?m/sec ? LV E:e' septal ratio13.5 ? ratio ? Tricuspid Valve ?Value ?Units (Range) ? TR Vmax ? 2.6 ?m/sec ? TR peak gradient ?27 ? mmHg ? RAP ? 15 ? mmHg ? RVSP ?42 ? mmHg ? Measurement Trending Name ? 08/30/2015 ? LVIDd (2D) ? 5.8 LVIDs (2D) ? 4.6 Wall Motion: Segment Name ?Rest ? Base-Anteroseptal ?? Normal ? Base-Anterior ? Normal ? Base-Anterolateral ??Normal ? Base-Posterolateral Normal ? Base-Inferior ? Normal ? Base-Inferoseptal ?? Normal ? Mid-Anteroseptal ?Normal ? Mid-Anterior ?Normal ? Mid-Anterolateral ?? Normal ? Mid-Posterolateral ??Normal ? Mid-Inferior ?Normal ? Mid-Inferoseptal ?Normal ? [place]-Septal ? Normal ? [place]-Anterior ? Normal ? [place]-Lateral ?Normal ? [place]-Inferior ? Normal ? [place]-Tip ?Normal ? This report has been electronically signed by: Jaime Nguyen MD ? 08/30/2015 11:54:10 Images reviewed and interpretation verified [facility] Cardiac Ultrasound Laboratory Procedure Note Jaime Nguyen MD - 08/30/2015 Procedure: Transthoracic Echocardiogram Patient: RAINA WILLIS (Age): 1945(69y) Med Rec#: [id number] Sex: M [place] Loc[place] [facility] [place] Ht / Wt: 178(cm)/186(kg) Pt. Loc: Adult Floor BSA: 2.83 Study Date: 08/30/2015 Pt. Type: Inpatient Tape: Referring: JOHN EGAN T Referring: Delroy Chu Reading: Jaime Nguyen ([id number]) Electric Motor Tester Assembler: Tamia Haines Diagnosis: *ICD-10-PCS Encounter for other preprocedural examination (Z01.818) *ICD-10-PCS Unspecified atrial fibrillation (I48.91) CPT Codes: *Echo Full (38420) *Spectral Doppler (27127) *Color Doppler (13596) Rhythm: A-Fib BP: 117/66 SUMMARY: 1. The left ventricular chamber size is [...] is 42 mmHg. The estimated right atrial pressure is 15 mmHg. 6. Other details as noted below. Findings : Study Quality: Adequate Left Ventricle: The left ventricular chamber size is normal. There is mild septal hypertrophy of the left ventricle. There is no evidence of LVOT obstruction. No ventricular septal defect is visualized. There is normal global left ventricular systolic function. The quantitative left ventricular ejection fraction by biplane Morales's method is 60%. There are no left ventricular segmental wall motion abnormalities. Left sided filling pressure could not be assessed by Doppler. Left Atrium: The left atrium is mildly dilated. No atrial septal defect is visualized. Right Ventricle: Right ventricular chamber size, wall thickness, and systolic function are within normal limits. The right ventricle is mildly dilated. Right ventricular global systolic function is mildly reduced. There is evidence of moderate pulmonary hypertension. The estimated pulmonary artery systolic pressure is 42 mmHg. The estimated right atrial pressure is 15 mmHg. Right Atrium: The right atrium is moderately dilated. Aortic Valve: The aortic valve is trileaflet. The leaflets are thin with normal excursion. There is no aortic stenosis or regurgitation present. The aortic valve is probably tricuspid. The right coronary cusp of the aortic valve is thickened. There is no evidence of aortic valve stenosis. There is no evidence of aortic regurgitation. Mitral Valve: The mitral valve appears normal in structure and function. There is no evidence of mitral valve leaflet prolapse. There is trace mitral regurgitation present. Tricuspid Valve: The tricuspid valve appears normal in structure and function. There is trace tricuspid regurgitation present. Pulmonic Valve: The pulmonic valve is not well visualized. Pericardium: The pericardium appears normal and there is no evidence of a pericardial effusion. Aorta: The aortic root is normal in size. The ascending aorta is normal in size. There is no evidence of coarctation of the aorta. Pulmonary Artery: The main pulmonary artery is not well visualized. Venous: The inferior vena cava appears dilated. There is less than 50% respiratory change in the inferior vena cava dimension consistent with elevated right atrial pressure. Misc: Two-dimensional echo, spectral Doppler and color Doppler performed. Chambers 2D Value Units (Range) IVSd (2D) 1.5 cm LVPWd (2D) 0.7 cm LVIDd (2D) 5.8 cm LVIDs (2D) 4.6 cm LV FS (2D) 20 % EF Teichholz (2D) 41 % Ao root diameter (2D4 cm (2.1 - 3.6) Ascending Ao 4 cm (2 - 3.5) Volumes/Mass Value Units (Range) LA Area 4 CH 29 cm2 (<21) RA AREA 4CH 29 cm2 LA ESV BP (MOD) inde36 ml/m2 LV EDV BP 151 ml LV ESV BP 61 ml BP EF (MOD) 60 % LV mass (2D) 274 g LV mass (2D) index 96.8 g/m2 Diastolic/Systolic Function Value Units (Range) MV E-wave Vmax 1.3 m/sec LV septal e' Vmax 0.1 m/sec LV E:e' septal ratio13.5 ratio Tricuspid Valve Value Units (Range) TR Vmax 2.6 m/sec TR peak gradient 27 mmHg RAP 15 mmHg RVSP 42 mmHg Measurement Trending Name 08/30/2015 LVIDd (2D) 5.8 LVIDs (2D) 4.6 Wall Motion: Segment Name Rest Base-Anteroseptal Normal Base-Anterior Normal Base-Anterolateral Normal Base-Posterolateral Normal Base-Inferior Normal Base-Inferoseptal Normal Mid-Anteroseptal Normal Mid-Anterior Normal Mid-Anterolateral Normal Mid-Posterolateral Normal Mid-Inferior Normal Mid-Inferoseptal Normal [place]-Septal Normal [place]-Anterior Normal [place]-Lateral Normal [place]-Inferior Normal [place]-Tip Normal This report has been electronically signed by: Jaime Nguyen MD 08/30/2015 11:54:10 Images reviewed and interpretation verified [facility] Cardiac Ultrasound Laboratory Delroy Chu MD ECHO ORDERABLES * Antibody screen (08/30/2015 9:11 AM EST) Ab Screen Interp Negative [facility] Expires at [id number] on: 09/02/2015 [facility] Blood specimen (specimen) 08/30/2015 9:11 AM EST 08/30/2015 10:23 AM EST Narrative Resulting Agency Comment Spec In Lab Delroy Chu MD BLOOD BANK LAB ORDER JESSIE Performing Organization Address [facility] Co de Phone Number [facility] * ABO/Rh Typing (08/30/2015 9:11 AM EST) ABORH Type O Pos [facility] Blood specimen (specimen) 08/30/2015 9:11 AM EST 08/30/2015 10:23 AM EST Narrative Resulting Agency Comment Spec In Lab Delroy Chu MD BLOOD BANK LAB ORDER JESSIE Performing Organization Address City/[facility]/ZIP Co de Phone Number [facility] * Lactate, whole blood, send to lab (08/30/2015 9:11 AM EST) Pathologist [facility] Lactate WB 1.4 0.5 - 2.2 mmol/L [facility] Comment:Results rechecked-mk f Blood specimen (specimen) 08/30/2015 9:11 AM EST 08/30/2015 9:15 AM EST Narrative Resulting Agency Comment Spec In Lab Delroy Chu MD CHEMISTRY ORDERABLES Performing Organization Address [facility] Co de Phone Number CERDENISE BOWENENNIUM * Prepare thawed plasma (08/30/2015 7:30 AM EST) Dispensed? Yes CERNER ANDRÉSENNIUM Blood specimen (specimen) 08/30/2015 7:30 AM EST 08/30/2015 7:33 AM EST Narrative Resulting Agency Comment Spec In Lab Delroy Chu MD BLOOD BANK PRODUCT O RDERABLES Performing Organization Address [facility] de Phone Number CERDENISE BOWENENNIUM * EKG 12 Lead (08/30/2015 1:28 AM EST) Ventricular rate 130 BPM MUSE SYSTEM Atrial Rate 144 BPM MUSE SYSTEM QRS Duration 100 ms MUSE SYSTEM Q-T Interval 322 ms MUSE SYSTEM QTC Calculated (Bezet) 473 ms MUSE SYSTEM Calculated R [place] 84 degrees MUSE SYSTEM Calculated T [place] 48 degrees MUSE SYSTEM INTERPRETATION Atrial fibrillation with rapid ventricular response Abnormal ECG When compared with ECG of 09-FEB-2009 12:34, Atrial fibrillation has replaced Sinus rhythm Vent. rate has increased BY ??67 BPM QRS axis Shifted right Criteria for Inferior infarct are no longer Present Nonspecific T wave abnormality no longer evident in Lateral leads Confirmed by MD SIL, NICK ([id number]) on 08/31/2015 5:29:01 AM MUSE SYSTEM 08/30/2015 1:28 AM EST 08/31/2015 5:29 AM EST Delroy Chu MD ECG ORDERABLES Performing Organization Address [facility]/ZIP Co de Phone Number MUSE SYSTEM * (ABNORMAL) Differential, Manual (08/30/2015 1:25 AM EST) Neutrophil % Manual 78 % CERNER MILLENNIUM Band % 16 % CERNER MILLENNIUM Lymphocyte Manual 2 % CERNER MILLENNIUM Monocyte Manual 4 % CERN ER MILLENNIUM Neutrophil Absolute (ANC) - Manual 20.0(H) 1.5 - 6.3 x10(3)/mcL CERNER MILLENNIUM Band Abs 4.1(H) 0.2 - 0.6 x10(3)/mcL CERNER MILLENNIUM Neutrophil Absolute (ANC) - Automated 24.17(H) 1.50 - 6.30 x10(3)/mcL CERNER MILLENNIUM Lymph Absolute Manual 0.5(L) 1.0 - 3.6 x10(3)/mcL CERNER MILLENNIUM Monocyte Absolute Manual 1.0 0.2 - 1.0 x10(3)/mcL CERNER MILLENNIUM Total Cells Ct 100 CERNE R MILLENNIUM Plat estimate Normal CERNER MILLENNIUM RBC Morphology Abnormal CERNE R MILLENNIUM Macrocyte 1-5 /HPF CERNER MILLENNIUM Ovalocytes 1-5 /HPF CERNER MILLENNIUM Blood specimen (specimen) 08/30/2015 1:25 AM EST 08/30/2015 1:30 AM EST Narrative Resulting Agency Comment Spec In Lab Elizabeth Hein MD HEMATOLOGY ORDERABLE S Performing Organization Address City/[facility] Co de Phone Number MAXIMO ELYIUM * Gold Tube HOLD (08/30/2015 1:25 AM EST) [facility] Gold Hold Sample in lab. CERNER ANDRÉSENNIUM Blood specimen (specimen) Venous Draw / Unknown 08/30/2015 1:25 AM EST 08/30/2015 1:32 AM EST Delroy Chu MD CHEMISTRY ORDERABLES Performing Organization Address [facility]/ZIP Co de Phone Number MAXIMO ELYIUM * (ABNORMAL) Basic Metabolic Panel (non-fasting) (08/30/2015 1:25 AM EST) Pathologist [facility] Glucose 122 65 - 199 mg/dL [facility] Comment:Diabetes: >=200 mg/d L plus symptoms Blood Urea Nitrogen 14 10 - 20 mg/dL [facility] MILLENNIUM Creatinine 0.91 0.80 - 1.50 mg/dL CERNER MILLENNIUM Comment: Please note that the pediatric reference intervals supplied above were not validated at [facility]. Results from pediatric patients should be interpreted in conjunction to the patient's age, height and muscle mass. Sodium 141 135 - 145 mmol/L CERNER MILLENNIUM Potassium 4.0 3.5 - 5.0 mmol/L CERNER MILLENNIUM Comment: Please note: ??Patients with WBC >100,000 may have falsely elevated Potassium levels. ??For accurate Potassium quantification in these patients send serum separator tube (gold top) for subsequent determinations. ??Contact the Clinical Chemistry Laboratory if there are any questions. Chloride 103 98 - 107 mmol/L CERNER MILLENNIUM Carbon Dioxide 21(L) 22 - 31 mmol/L CERNER MILLENNIUM Anion Gap 17(H) 5 - 15 mmol/L CERNER MILLENNIUM Calcium 9.3 8.5 - 10.5 mg/dL CERNER MILLENNIUM Est Glomerular Filtration Rate >60 >=60 CERNER MILLENNIUM Comment: This estimated GFR (eGFR) value was [...] the following links into your internet browser. [email or web address] Blood specimen (specimen) Venous Draw / Unknown 08/30/2015 1:25 AM EST 08/30/2015 1:30 AM EST Narrative Resulting Agency Comment Spec In Lab Delroy Chu MD CHEMISTRY ORDERABLES CERDENISE BOWENENNIUM * (ABNORMAL) Hemogram (08/30/2015 1:25 AM EST) White Blood Cell 25.7(H) 4.0 - 10.0 x10(3)/mc L CERNER MILLENNIUM Red Blood Cell 4.88 4.63 - 6.08 x10(6)/mc L CERNER MILLENNIUM Hemoglobin 14.2 13.7 - 17.5 gm/dL CERNER MILLENNIUM Hematocrit 44.3 40.0 - 51.0 % CERNER MILLENNIUM Mean Cell Volume 90.8 79.0 - 92.0 fL CERNER MILLENNIUM Mean Cell Hemoglobin 29.1 25.6 - 32.2 pg CERNER MILLENNIUM Mean Cell Hemoglobin Concentration 32.1 32.0 - 36.5 gm/dL CERNER MILLENNIUM Platelet 260 145 - 370 x10(3)/mc L CERNER MILLENNIUM RDW Standard Deviation 57.7(H) 35.0 - 46.0 fL CERNER MILLENNIUM RDW coefficient of variation 17.6(H) 10.9 - 14.4 % CERNER MILLENNIUM Mean Platelet Volume 9.1 9.0 - 12.0 fL CERNER MILLENNIUM Blood specimen (specimen) 08/30/2015 1:25 AM EST 08/30/2015 1:30 AM EST Narrative Resulting Agency Comment Spec In Lab Elizabeth Hein MD HEMATOLOGY ORDERABLE S Performing Organization Address City/[facility] Co de Phone Number CERNER MILLENNIUM * Lipase (08/30/2015 1:25 AM EST) Lipase 33 0 - 60 unit/L CERNER MILLENNIUM Blood specimen (specimen) 08/30/2015 1:25 AM EST 08/30/2015 1:30 AM EST Narrative Resulting Agency Comment Spec In Lab Delroy Chu MD CHEMISTRY ORDERABLES Performing Organization Address [facility] Co de Phone Number CERNER MILLENNIUM * (ABNORMAL) Hepatic Function Panel (08/30/2015 1:25 AM EST) Protein, Total 6.9 6.1 - 8.0 gm/dL CERNER MILLENNIUM Albumin 3.1(L) 3.2 - 5.2 gm/dL CERNER MILLENNIUM Aspartate Aminotransferase 159(H) 0 - 39 unit/L CERNER MILLENNIUM Alanine Aminotransferase 167(H) 0 - 55 unit/L CERNER MILLENNIUM Alkaline Phosphatase 254(H) 40 - 120 unit/L CERNER MILLENNIUM Bilirubin, Total 4.1(H) 0.2 - 1.3 mg/dL [facility] Bilirubin, Direct 3.7(H) 0.0 - 0.3 mg/dL [facility] M[facility] Blood specimen (specimen) 08/30/2015 1:25 AM EST 08/30/2015 1:30 AM EST Narrative Resulting Agency Comment Spec In Lab Delroy Chu MD CHEMISTRY ORDERABLES Performing Organization Address [facility] Phone Number [facility] SOLISIUM * (ABNORMAL) Lactate, whole blood, send to lab (08/30/2015 1:25 AM EST) Lactate WB 3.2(H) 0.5 - 2.2 mmol/L [facility] MILLENNIUM Blood specimen (specimen) 08/30/2015 1:25 AM EST 08/30/2015 1:30 AM EST Narrative Resulting Agency Comment Spec In Lab Delroy Chu MD CHEMISTRY ORDERABLES Performing Organization Address [facility] Phone Number [facility] * APTT (08/30/2015 1:25 AM EST) Partial Thromboplastin Time 33 25 - 35 sec [facility] ANDRÉSENNIUM Comment: Recommended therapeutic PTT range for full dose unfractionated heparin is 80-114 seconds. Blood specimen (specimen) 08/30/2015 1:25 AM EST 08/30/2015 1:30 AM EST Narrative Resulting Agency Comment Spec In Lab Delroy Chu MD HEMATOLOGY ORDERABLE S Performing Organization Address [facility] Phone Number MAXIMO NERI * (ABNORMAL) Prothrombin Time (08/30/2015 1:25 AM EST) Prothrombin Time 26.1(H) 12.0 - 15.0 sec [facility] MILLENNIUM Comment: Transfusion Committee Guidelines: INR less than 2.0, PTT less than OR equal to 43.5 seconds, or Fibrinogen greater than or equal to 100 mg/dl indicate adequate procoagulant activity for hemostasis in patients without underlying bleeding disorders. International Normalization Ratio 2.3(H) 0.9 - 1.1 MAXIMO NERI Blood specimen (specimen) 08/30/2015 1:25 AM EST 08/30/2015 1:30 AM EST Narrative Resulting Agency Comment Spec In Lab Delroy Chu MD HEMATOLOGY ORDERABLE S MAXIMO NERI * Film Library- Storage only DX Chest (08/29/2015 12:05 AM EST) Narrative User, Generic Transmittal - 08/29/2015 10:42 PM EST See PACS for result report. Marla May MD IMG FILM LIBRARY ORD ERABLES * Film Library- Storage Only CT Abdomen & Pelvis (08/29/2015 12:00 AM EST) Narrative User, Generic Transmittal - 08/29/2015 10:38 PM EST See PACS for result report. Marla May MD IM FILM LIBRARY ORD ERABLES documented in this encounter Visit Diagnoses Diagnosis Pain Generalized pain Atrial fibrillation, unspecified Abdominal pain, RUQ (right upper quadrant) Abdominal pain, right upper quadrant Preop testing Preoperative examination, unspecified Cholecystitis Cholecystitis, unspecified Acute cholecystitis Suspected cholecystitis vs cholangitis Cholecystitis, unspecified Cholangitis documented in this encounter Admitting Diagnoses Diagnosis Cholangitis documented in this encounter Administered Medications Inactive Administered Medications - up to 3 most recent administrations Medication Order MAR Action Action Date Dose Rate Site acetaminophen (OFIRMEV) injection 1,000 mg 1,000 mg, Intravenous, at 400 mL/hr, Administer over 15 Minutes, ONCE, 1 dose, On Fri09/01/15 at 1315, Maximum dose of acetaminophen is 4000 mg from all sources in 24 hours., Routine, Is ketorolac (Toradol) IV contraindicated? Yes, Can this patient tolerate oral medications or suppositories? No Given 09/01/2015 1:07 PM EST 1,000 mg 400 mL/hr acetaminophen (TYLENOL) tablet 1,000 mg 1,000 mg, Oral, EVERY 6 HOURS, First dose on Fri09/01/15 at 2100, Until Discontinued, Maximum dose of acetaminophen is 4000 mg from all sources in 24 hours., Routine Given 09/02/2015 9:14 AM EST 1,000 mg Given 09/02/2015 3:12 AM EST 1,000 mg Given 09/01/2015 8:33 PM EST 1,000 mg albuterol (PROVENTIL) 2.5 mg /3 mL (0.083 %) nebulizer solution 1 dose, Starting on Fri09/01/15 at 1246, Until Fri09/01/15 at 1255, ELMO PERALTA: cabinet override Given 09/01/2015 12:55 PM EST 2.5 mg allopurinol (ZYLOPRIM) tablet 300 mg 300 mg, Oral, DAILY, First dose on Fri08/30/15 at 1400, Until Discontinued, Routine Given 09/02/2015 9:14 AM EST 300 mg Given 08/31/2015 8:18 AM EST 300 mg Given 08/30/2015 8:47 PM EST 300 mg ampicillin-sulbactam (UNASYN) 3 g vial attach to sodium chloride 0.9% 100 mL Mini-Bag Plus 3 g, Intravenous, EVERY 6 HOURS SCHEDULED, First dose on Fri08/30/15 at 0107, Until Discontinued, Administer over 30 Minutes, Indication for (Active or Suspected): GI/Intra-abdominal Given 09/01/2015 8:19 PM EST 3 g 200 mL/hr Given 09/01/2015 6:38 AM EST 3 g 200 mL/hr Given 09/01/2015 1:43 AM EST 3 g 200 mL/hr ampicillin-sulbactam (UNASYN) 3 g vial attach to sodium chloride 0.9% 100 mL Mini-Bag Plus 3 g, Intravenous, EVERY 6 HOURS SCHEDULED, 4 doses, First dose (after last modification) on 09/02/15 at 0200, Last dose on 09/02/15 at 2000, Administer over 30 Minutes, Indication for (Active or Suspected): GI/Intra-abdominal Given 09/02/2015 9:11 AM EST 3 g 200 mL/hr Given 09/02/2015 3:00 AM EST 3 g 200 mL/hr atorvastatin (LIPITOR) tablet 80 mg 80 mg, Oral, EVERY EVENING, First dose on Fri08/30/15 at 1700, Until Discontinued, Routine Given 09/01/2015 6:0 1 PM EST 80 mg Given 08/31/2015 6:00 PM EST 80 mg DILTiazem (CARDIZEM) injection 5 mg/mL 15 mg, Intravenous, ONCE, 1 dose, On Fri08/30/15 at 0113, Routine Given 08/30/2015 1:32 AM EST 15 mg DILTiazem (CARDIZEM) tablet 60 mg 60 mg, Oral, EVERY 6 HOURS SCHEDULED, First dose on Fri08/30/15 at 0600, Until Discontinued, Routine Given 09/02/2015 12:29 PM EST 60 mg Given 09/02/2015 6:00 AM EST 60 mg Given 09/02/2015 1:58 AM EST 60 mg docusate sodium (COLACE) capsule 100 mg 100 mg, Oral, 2 TIMES DAILY, First dose on Fri09/01/15 at 2100, Until Discontinued, Routine Given 09/02/2015 9:14 AM EST 100 mg Given 09/01/2015 8:33 PM EST 100 mg famotidine (PEPCID) tablet 20 mg 20 mg, Oral, 2 TIMES DAILY, First dose on Fri08/30/15 at 0900, Until Discontinued, Oral route preferred, Routine Given 09/02/2015 9:13 AM EST 20 mg Given 09/01/2015 8:16 PM EST 20 mg Given 08/31/2015 10:08 PM EST 20 mg furosemide (LASIX) 10 mg/mL injection 1 dose, Starting on Fri09/01/15 at 1242, Until Fri09/01/15 at 1244, CEDERIC AVOLA: cabinet override Given 09/01/2015 12:44 PM EST 20 mg furosemide (LASIX) 10 mg/mL injection 1 dose, Starting on Fri09/01/15 at 1255, Until Fri09/01/15 at 1256, CEDERIC AVOLA: cabinet override Given 09/01/2015 12:56 PM EST 20 mg furosemide (LASIX) tablet 20 mg 20 mg, Oral, 2 TIMES DAILY, First dose on Fri08/30/15 at 0900, Until Discontinued, Routine Given 09/02/2015 9:1 3 AM EST 20 mg Given 09/01/2015 8:16 PM EST 20 mg Given 08/31/2015 10:10 PM EST 20 mg HYDROmorphone (DILAUDID) injection 0.2-0.4 mg 0.2-0.4 mg, Intravenous, EVERY 2 HOURS PRN, Starting on Fri09/01/15 at 1525, Until Fri09/01/15 at 2021, Pain, for SEVERE pain (7-10), Give 0.2mg for pain 1-6, give 0.4mg for pain 7-10, Routine Given 09/01/2015 3:44 PM EST 0.2 mg HYDROmorphone (DILAUDID) syringe 0.2-0.4 mg 0.2-0.4 mg, Intravenous, EVERY 5 MIN PRN, Pain, Starting on Fri08/30/15 at 1808, Until Fri08/30/15 at 1942, For moderate pain (4-6) give: 0.2 mg every 5 minute prn For severe pain (7-10) give: 0.4 mg every 5 minutes prn Maximum dose: 4 mg per hour Hold for respiratory rate less than 10 per minute., PACU Recovery Given 08/30/2015 7:14 PM EST 0.4 mg HYDROmorphone (DILAUDID) tablet 2-6 mg 2-6 mg, Oral, EVERY 4 HOURS PRN, Starting on Fri09/01/15 at 202, Until Fri09/02/15 at 1544, Pain, Give 2 mg for pain scale 1-3, 4 mg for pain scale 4-6, and 6 mg for pain scale 7-10. May medicate again in 30 minutes if pain unrelieved up to a maximum dose of 6 mg., Routine Given 09/01/2015 10:30 PM EST 4 mg ibuprofen (ADVIL;MOTRIN) tablet 600 mg 600 mg, Oral, EVERY 6 HOURS, First dose on Fri09/01/15 at 2100, Until Discontinued, Routine Given 09/02/2015 9:14 AM EST 600 mg Given 09/02/2015 3:15 AM EST 600 mg Given 09/01/2015 8:33 PM EST 600 mg ipratropium-albuterol (DUONEB) 0.5 mg-3 mg(2.5 mg base)/3 mL nebulizer solution 3 mL 3 mL, Nebulization, ONCE, 1 dose, On Fri09/01/15 at 0715, Routine Given 09/01/2015 7:15 AM EST 3 mLs ipratropium-albuterol (DUONEB) 0.5 mg-3 mg(2.5 mg base)/3 mL nebulizer solution 3 mL 3 mL, Nebulization, EVERY 4 HOURS, First dose on Fri09/01/15 at 1315, Until Discontinued, Routine Given 09/02/2015 12:29 PM EST 3 mLs Given 09/02/2015 9:14 AM EST 3 mLs Given 09/02/2015 12:52 AM EST 3 mLs lactated ringers infusion 1,000 mL 1,000 mL, at 100 mL/hr, Intravenous, CONTINUOUS, Starting on Fri08/30/15 at 0245, Until Fri08/30/15 at 0559, Recovery (Recovery-Hospital Unit) New Bag 08/30/2015 2:30 AM EST 1,000 mLs 100 mL /hr lactated ringers infusion 50 mL/hr, Intravenous, CONTINUOUS, Starting on Fri08/30/15 at 0615, Until Helen 08/31/15 at 1006, Recovery (Recovery-Hospital Unit) New Bag 08/31/2015 2:46 AM EST 50 mL/hr 50 mL/ hr New Bag 08/30/2015 6:34 AM EST 50 mL/hr 50 mL/hr lactated ringers infusion 50 mL/hr, Intravenous, CONTINUOUS, Starting on Fri09/01/15 at 0000, Until Fri09/01/15 at 1807 New Bag 09/01/2015 2:47 PM EST 50 mL/hr 50 m L/hr New Bag 09/01/2015 12:17 AM EST 50 mL/hr 50 mL/hr lisinopril (PRINIVIL;ZESTRIL) tablet 20 mg 20 mg, Oral, DAILY, First dose on Fri08/30/15 at 0900, Until Discontinued, Routine Given 09/02/2015 9:13 AM EST 20 mg Given 08/31/2015 8:18 AM EST 20 mg Given 08/30/2015 9:49 AM EST 20 mg meTOPROLOL tartrate (LOPRESSOR) tablet 50 mg 50 mg, Oral, 2 TIMES DAILY, First dose on Fri08/30/15 at 0900, Until Discontinued, Routine Given 09/02/2015 9:1 3 AM EST 50 mg Given 09/01/2015 8:16 PM EST 50 mg Given 08/31/2015 10:09 PM EST 50 mg ondansetron (ZOFRAN) injection 4 mg 4 mg, Intravenous, EVERY 8 HOURS PRN, Starting on Fri08/30/15 at 0215, Until Fri09/02/15 at 1544, Nausea, May repeat times one in 30 minutes if ineffective. If multiple antiemetics are ordered, give ondansetron first. Given 08/30/2015 8:56 PM EST 4 mg ondansetron (ZOFRAN) injection 4 mg 4 mg, Intravenous, EVERY 30 MIN PRN, Starting on Fri08/30/15 at 1808, Until Fri08/30/15 at 1942, Nausea, May repeat 4 mg once in 30 minutes. If multiple antiemetics ordered, use ondansetron first and if ineffective use prochlorperazine second and if ineffective use promethazine, PACU Recovery Given 08/30/2015 7:20 PM EST 4 mg polyethylene glycol (MIRALAX) packet 17 g 17 g, Oral, DAILY, First dose on Fri09/01/15 at 2045, Until Discontinued, Routine Given 09/02/2015 9:13 AM EST 17 g potassium Citrate (UROCIT) tablet SR TbSR 20 mEq 20 mEq, Oral, 3 TIMES DAILY, First dose on Fri08/30/15 at 1500, Until Discontinued, Routine Given 09/02/2015 9:13 AM EST 20 mEq Given 09/01/2015 8:27 PM EST 20 mEq Given 09/01/2015 3:43 PM EST 20 mEq senna (SENOKOT) tablet 8.6 mg 8.6 mg, Oral, 2 TIMES DAILY, First dose on Fri09/01/15 at 2100, Until Discontinued, Routine Given 09/02/2015 12:52 AM EST 8.6 mg sodium chloride 0.9 % flush 5 mL 5 mL, Intravenous, 2 TIMES DAILY, First dose on Fri08/30/15 at 0245, Until Discontinued, Recovery (Recovery-Hospital Unit), Routine Given 09/02/2015 9:14 AM EST 5 mLs Given 09/01/2015 8:17 PM EST 5 mLs Given 08/31/2015 10:10 PM EST 5 mLs documented in this encounter Active and Recently Administered Medications Times are shown in EST. Scheduled Medication Order 08/31/2015 09/01/2015 09/02/2015 acetaminophen (OFIRMEV) injection 1,000 mg (COMPLETED) 1,000 mg, Intravenous, at 400 mL/hr, Administer over 15 Minutes, ONCE, 1 dose, On Fri09/01/15 at 1315, Maximum dose of acetaminophen is 4000 mg from all sources in 24 hours., Routine, Is ketorolac (Toradol) IV contraindicated? Yes, Can this patient tolerate oral medications or suppositories? No 1307 (Given - Provider: Fernando Thomas RN) acetaminophen (TYLENOL) tablet 1,000 mg 1,000 mg, Oral, EVERY 6 HOURS, First dose on Fri09/01/15 at 2100, Until Discontinued, Maximum dose of acetaminophen is 4000 mg from all sources in 24 hours., Routine 2032 (Given - Provider: Florinda Peralta RN) 031 (Given - Provider: Sarah Conner RN)0914 (Given - Provider: Hira Mandujano, JACOB) allopurinol (ZYLOPRIM) tablet 300 mg (CANCELED) 300 mg, Oral, DAILY, First dose on Fri08/30/15 at 1400, Until Discontinued, Routine 0818 (Given - Provider: Zahra Conway RN) 0812 (NOV Hold - Provider: Admin Adt - Reason: Transfer to a Procedural area)0900 (Automatically Held - Provider: Admin Adt)1418 (MAR Unhold - Provider: Admin Adt) 0914 (Given - Provider: Hira Mandujano, JACOB) ampicillin-sulbactam (UNASYN) 3 g vial attach to sodium chloride 0.9% 100 mL Mini-Bag Plus (CANCELED) 3 g, Intravenous, EVERY 6 HOURS SCHEDULED, First dose on Fri08/30/15 at 0107, Until Discontinued, Administer over 30 Minutes, Indication for (Active or Suspected): GI/Intra-abdominal 0520 (Given - Provider: Makenzie Penaloza RN)1231 (Given - Provider: Zahra Conway RN)1802 (Given - Provider: Zahra Conway RN) 0143 (Given - Provider: Yolanda Lujan, JACOB)0638 (Given - Provider: Yolanda Lujan RN)0812 (MAR Hold - Provider: Admin Adt - Reason: Transfer to a Procedural area)1200 (Automatically Held - Provider: Admin Adt)1400 (Automatically Held - Provider: Admin Adt)1418 (MAR Unhold - Provider: Admin Adt)2019 (Given - Provider: Florinda Peralta, JACOB) ampicillin-sulbactam (UNASYN) 3 g vial attach to sodium chloride 0.9% 100 mL Mini-Bag Plus (CANCELED) 3 g, Intravenous, EVERY 6 HOURS SCHEDULED, 4 doses, First dose (after last modification) on Fri09/02/15 at 0200, Last dose on Fri09/02/15 at 2000, Administer over 30 Minutes, Indication for (Active or Suspected): GI/Intra-abdominal 0300 (Given - Provider: Sarah Conner RN)0911 (Given - Provider: Hira Mandujano, RN) atorvastatin (LIPITOR) tablet 80 mg (CANCELED) 80 mg, Oral, EVERY EVENING, First dose on Fri08/30/15 at 1700, Until Discontinued, Routine 1800 (Given - Provider: Zahra Conway RN) 0812 (NOV Hold - Provider: Admin Adt - Reason: Transfer to a Procedural area)1418 (MAR Unhold - Provider: Admin Adt)1801 (Given - Provider: Kate Lamar RN) DILTiazem (CARDIZEM) tablet 60 mg (CANCELED) 60 mg, Oral, EVERY 6 HOURS SCHEDULED, First dose on Fri08/30/15 at 0600, Until Discontinued, Routine 0519 (Given - Provider: Makenzie Penaloza RN)1231 (Given - Provider: Zahra Conway RN)1800 (Given - Provider: Zahra Conway RN) 0017 (Given - Provider: Yolanda Lujan RN)0638 (Given - Provider: Yolanda Lujan RN)0812 (NOV Hold - Provider: Admin Adt - Reason: Transfer to a Procedural area)1200 (Automatically Held - Provider: Admin Adt)1418 (NOV Unhold - Provider: Admin Adt)1801 (Given - Provider: Kate Lamar RN) 0158 (Given - Provider: Suma Esparza RN - Comment: medication not available, administered when pharmacy sent it)0600 (Given - Provider: Suma Esparza RN)1229 (Given - Provider: Hira Mandujano, JACOB) docusate sodium (COLACE) capsule 100 mg (CANCELED) 100 mg, Oral, 2 TIMES DAILY, First dose on Fri09/01/15 at 2100, Until Discontinued, Routine 2032 (Given - Provider: Florinda Peralta RN) 0914 (Given - Provider: Hira Mandujano, JACOB) famotidine (PEPCID) tablet 20 mg (CANCELED)(Linked Group 1) 20 mg, Oral, 2 TIMES DAILY, First dose on Fri08/30/15 at 0900, Until Discontinued, Oral route preferred, Routine 08 (Given - Provider: Zahra Conway RN)2208 (Given - Provider: Yolanda Lujan RN) 0812 (NOV Hold - Provider: Admin Adt - Reason: Transfer to a Procedural area)09 (Automatically Held - Provider: Admin Adt)1418 (NOV Unhold - Provider: Admin Adt)2015 (Given - Provider: Florinda Peralta RN) 0913 (Given - Provider: Hira Mandujano, JACOB) furosemide (LASIX) tablet 20 mg (CANCELED) 20 mg, Oral, 2 TIMES DAILY, First dose on Fri08/30/15 at 0900, Until Discontinued, Routine 817 (Given - Provider: Zahra Conway RN)2210 (Given - Provider: Yolanda Lujan, JACOB) 0812 (NOV Hold - Provider: Admin Adt - Reason: Transfer to a Procedural area)09 (Automatically Held - Provider: Admin Adt)1418 (NOV Unhold - Provider: Admin Adt)2015 (Given - Provider: Florinda Peralta RN) 0913 (Given - Provider: Hira Mandujano, JACOB) ibuprofen (ADVIL;MOTRIN) tablet 600 mg (CANCELED) 600 mg, Oral, EVERY 6 HOURS, First dose on Fri09/01/15 at 2100, Until Discontinued, Routine 2032 (Given - Provider: Florinda Peralta RN) 0315 (Given - Provider: Sarah Conner RN)0914 (Given - Provider: Hira Mandujano, JACOB) ipratropium-albuterol (DUONEB) 0.5 mg-3 mg(2.5 mg base)/3 mL nebulizer solution 3 mL (COMPLETED) 3 mL, Nebulization, ONCE, 1 dose, On Fri09/01/15 at 0715, Routine 0715 (Given - Provider: Yolanda Lujan, JACOB) ipratropium-albuterol (DUONEB) 0.5 mg-3 mg(2.5 mg base)/3 mL nebulizer solution 3 mL (CANCELED) 3 mL, Nebulization, EVERY 4 HOURS, First dose on Fri09/01/15 at 1315, Until Discontinued, Routine 1315 (Not Given - Provider: Elmo Peralta RCP - Reason: See comment - Comment: Albuterol given)1612 (Given - Provider: Kate Lamar RN)1999 (Not Given - Provider: Suma Esparza RN - Reason: See comment - Comment: Medication due while in ICU too close now to the 2400 administration) 0052 (Given - Provider: Suma Esparza RN)0400 (Not Given - Provider: Sarah Conner RN - Reason: Patient/family refused)0914 (Given - Provider: Hira Mandujano RN)1229 (Given - Provider: Hira Mandujano RN) lisinopril (PRINIVIL;ZESTRIL) tablet 20 mg (CANCELED) 20 mg, Oral, DAILY, First dose on Fri08/30/15 at 0900, Until Discontinued, Routine 0818 (Given - Provider: Zahra Conway RN) 0812 (NOV Hold - Provider: Admin Adt - Reason: Transfer to a Procedural area)0900 (Automatically Held - Provider: Admin Adt)1418 (NOV Unhold - Provider: Admin Adt) 0913 (Given - Provider: Hira Mandujano, JACOB) meTOPROLOL tartrate (LOPRESSOR) tablet 50 mg (CANCELED) 50 mg, Oral, 2 TIMES DAILY, First dose on Fri08/30/15 at 0900, Until Discontinued, Routine 0818 (Given - Provider: Zahra Conway RN)220 (Given - Provider: Yolanda Lujan, JACOB) 0812 (NOV Hold - Provider: Admin Adt - Reason: Transfer to a Procedural area)0900 (Automatically Held - Provider: Admin Adt)1418 (NOV Unhold - Provider: Admin Adt)2015 (Given - Provider: Florinda Peralta RN) 0913 (Given - Provider: Hira Mandujano RN) polyethylene glycol (MIRALAX) packet 17 g (CANCELED) 17 g, Oral, DAILY, First dose on Fri09/01/15 at 2045, Until Discontinued, Routine 2044 (Not Given - Provider: Florinda Peralta RN - Reason: Patient/family refused) 0913 (Given - Provider: Hira Mandujano RN) potassium Citrate (UROCIT) tablet SR TbSR 20 mEq (CANCELED) 20 mEq, Oral, 3 TIMES DAILY, First dose on Fri08/30/15 at 1500, Until Discontinued, Routine 0818 (Given - Provider: Zahra Conway RN)1501 (Given - Provider: Zahra Conway RN)2207 (Given - Provider: Yolanda Lujan RN) 0812 (MAR Hold - Provider: Admin Adt - Reason: Transfer to a Procedural area)0900 (Automatically Held - Provider: Admin Adt)1418 (MAR Unhold - Provider: Admin Adt)1543 (Given - Provider: Kate Lamar RN)2026 (Given - Provider: Florinda Peralta RN) 0913 (Given - Provider: Hira Mandujano RN) senna (SENOKOT) tablet 8.6 mg (CANCELED) 8.6 mg, Oral, 2 TIMES DAILY, First dose on Fri09/01/15 at 2100, Until Discontinued, Routine 0052 (Given - Provider: Suma Esparza RN - Comment: medication not available administered when med arrived)0914 (Not Given - Provider: Hira Mandujano RN - Reason: Patient/family refused) sodium chloride 0.9 % flush 5 mL (CANCELED) 5 mL, Intravenous, 2 TIMES DAILY, First dose on Fri08/30/15 at 0245, Until Discontinued, Recovery (Recovery-Hospital Unit), Routine 817 (Not Given - Provider: Zahra Conway RN - Reason: Order parameters not met - Comment: infusing)2210 (Given - Provider: Yolanda Lujan RN) 0900 (Not Given - Provider: Fernando Thomas RN - Reason: Transfer to a Procedural area)2016 (Given - Provider: Florinda Peralta RN) 0914 (Given - Provider: Hira M [place], RN) Continuous Medication Order 08/31/2015 09/01/2015 09/02/2015 lactated ringers infusion (CANCELED) 50 mL/hr, Intravenous, CONTINUOUS, Starting on Fri08/30/15 at 0615, Until Helen 08/31/15 at 1006, Recovery (Recovery-Hospital Unit) 0246 (New Bag - Provider: Makenzie Penaloza RN)1000 (Stopped - Provider: Zahra Conway RN) lactated ringers infusion (CANCELED) 50 mL/hr, Intravenous, CONTINUOUS, Starting on Fri09/01/15 at 0000, Until Fri09/01/15 at 1807 0017 (New Bag - Provider: Yolanda Lujan RN)0812 (NOV Hold - Provider: Admin Adt - Reason: Transfer to a Procedural area)1418 (NOV Unhold - Provider: Admin Adt)1447 (New Bag - Provider: Lolita Jackson RN) PRN Medication Order 08/31/2015 09/01/2015 09/02/2015 BUpivacaine (PF) (MARCAINE) 0.25 % (2.5 mg/mL) injection (CANCELED) ONCE PRN, Starting on Fri09/01/15 at 1210, Until Fri09/01/15 at 1412, Intra-Operative (Intra-Procedure), Routine 1210 (Given - Provider: Mary Chambers MD) HYDROmorphone (DILAUDID) injection 0.2-0.4 mg (CANCELED) 0.2-0.4 mg, Intravenous, EVERY 2 HOURS PRN, Starting on Fri09/01/15 at 1525, Until Fri09/01/15 at 2021, Pain, for SEVERE pain (7-10), Give 0.2mg for pain 1-6, give 0.4mg for pain 7-10, Routine 1544 (Given - Provider: Kate Lamar RN) HYDROmorphone (DILAUDID) tablet 2-6 mg 2-6 mg, Oral, EVERY 4 HOURS PRN, Starting on Fri09/01/15 at 2022, Until 09/02/15 at 1544, Pain, Give 2 mg for pain scale 1-3, 4 mg for pain scale 4-6, and 6 mg for pain scale 7-10. May medicate again in 30 minutes if pain unrelieved up to a maximum dose of 6 mg., Routine 2230 (Given - Provider: Shyann Esparza, RN) No Frequency Medication Order 08/31/2015 09/01/2015 09/02/2015 albuterol (PROVENTIL) 2.5 mg /3 mL (0.083 %) nebulizer solution (COMPLETED) 1 dose, Starting on Fri09/01/15 at 1246, Until Fri09/01/15 at 1255, ELMO PERALTA: cabinet override 1255 (Given - Provider: Steffanie Peralta PROFESSOR OF BIOSTATISTICS) furosemide (LASIX) 10 mg/mL injection (COMPLETED) 1 dose, Starting on Fri09/01/15 at 1242, Until Fri09/01/15 at 1244, CEDERIC AVOLA: cabinet override 1244 (Given - Provider: Kenneth Thomas RN) furosemide (LASIX) 10 mg/mL injection (COMPLETED) 1 dose, Starting on Fri09/01/15 at 1255, Until Fri09/01/15 at 1256, CEDERIC AVOLA: cabinet override 1256 (Given - Provider: Kenneth Thomas RN) Linked Groups Order Group 1: famotidine (PEPCID) tablet 20 mg (CANCELED)Jump to med 20 mg, Oral, 2 TIMES DAILY, First dose on Fri08/30/15 at 0900, Until Discontinued, Oral route preferred, Routine Or famotidine (PEPCID) injection 20 mg (CANCELED) 20 mg, Intravenous, 2 TIMES DAILY, First dose on Fri08/30/15 at 0900, Until Discontinued, Routine documented in this encounter Care Teams Sprinkler Inspector Relationship Specialty Start Date End Date Cherise Staples MD [address] [place] [address] PCP - General 07/31/10 10/04/19 documented as of this encounter
--- OUTSIDE RECORDS SUMMARY | 2024-08-20 06:23 | XMS_ITS | Encounter Summary ---
Author Organization [facility] [place] [address] Care Team Providers Care Technical Sales Support Manager Name Role Phone Cherise Staples MD Primary Care Provider [phone] Reason for Referral * Diagnostic Test (Routine) - Closed Specialty Diagnoses / Procedures Referred By Carla t Referred To Contact Radiology Diagnoses Chronic systolic heart failure SOB (shortness of breath) Coronary artery disease involving [place] heart, angina presence unspecified, unspecified vessel or lesion type Procedures NM Myocardial Perfusion Scan Pharmacologic Carito Cabrera MD [facility] [place] [address] [place] [address] Referral ID Status Reason Start Date Expiration Date V isits Requested Visits Authorized [id number] Closed Specialty Service Requested 01/21/2017 01/21/2018 4 4 Reason for Visit * Diagnostic Test (Routine) - Closed Specialty Diagnoses / Procedures Referred By Carla t Referred To Contact Radiology Diagnoses Chronic systolic heart failure SOB (shortness of breath) Coronary artery disease involving [place] heart, angina presence unspecified, unspecified vessel or lesion type Procedures NM Myocardial Perfusion Scan Pharmacologic Carito Cabrera MD [facility] [place] [address] [facility] [place] [address] Referral ID Status Reason Start Date Expiration Date V isits Requested Visits Authorized [id number] Closed Specialty Service Requested 01/21/2017 01/21/2018 4 4 Encounter Details Date Type Department Care Team (Latest Contact Info) Description 02/17/2017 8:41 AM EDT Hospital Encounter [place] [address] Slim Summers MD [facility] [place] [address] Chronic systolic heart failure; SOB (shortness of breath); Coronary artery disease involving [place] heart, angina presence unspecified, unspecified vessel or [...] (shortness of breath) Coronary artery disease involving [place] heart, angina presence unspecified, unspecified vessel or [...] not fit into scanner. Slim Summers MD [facility] [place] ORDERABLES documented in this encounter Visit Diagnoses Diagnosis Chronic systolic heart failure SOB (shortness of breath) Shortness of breath Coronary artery disease involving [place] heart, angina presence unspecified, unspecified vessel or lesion type documented in this encounter Administered Medications Inactive Administered Medications - up to 3 most recent administrations Medication Order MAR Action Action Date Dose Rate Site technetium (Tc-99m) sestamibi injection 9.4 mCi 9.4 mCi, Intravenous, ONCE PRN, 1 dose, Starting on Fri02/17/17 at 0900, Until Fri02/17/17 at 0900, Per Protocol, Routine Given 02/17/2017 9:00 AM EDT 9.4 mCi documented in this encounter Care Teams Technical Sales Support Manager Relationship Specialty Start Date End Date Cherise Staples MD [address] [place] [address] PCP - General 07/31/10 10/04/19 documented as of this encounter
--- OUTSIDE RECORDS SUMMARY | 2024-08-20 06:23 | XMS_ITS | Encounter Summary ---
[place] [address] Care Team Providers Care Delivery Technician Name Role Phone Cherise Staples MD Primary Care Provider [phone] Reason for Visit * Reason Comments Wound Care bileteral legs Encounter Details Date Type Department Care Team (Latest Contact Info) Description 11/02/2015 9:30 AM EST Office [place] [phone] Sanjiv Emanuel Venous stasis ulcer of left lower extremity; Chronic venous insufficiency Social History Tobacco Use Types Packs/Day Years [...] Sign Reading Time Taken Comments Blood Pressure 116/70 11/02/2015 9:30 AM EST Pulse 70 11/02/2015 9:30 AM EST Temperature 36.6 ??C (97.9 ??F) 11/02/2015 9:30 AM ES T Respiratory Rate 18 11/02/2015 9:30 AM EST Oxygen Saturation 97% 11/02/2015 9:30 AM EST Inhaled Oxygen Concentration - - Weight - - Height - - Body Mass Index - - documented in this encounter Progress Notes * Sanjiv Emanuel, PT - 11/02/2015 9:26 AM EST [facility] Physical Therapy Progress Note Date of Exam/First Treatment: 10/30/15 Date of onset: 10/09/15 Referring Provider: Dorothea Cantor APRN Diagnosis: 1. Venous stasis ulcer of left lower extremity 2. Chronic venous insufficiency Medicare Certification period: 10/30/2015 - 01/28/2016 Reason [...] pain, being managed with oxycodone. Treated at [facility]. He had ulcer in the right [...] Functional Limitations: ambulates (I) with cane SUBJECTIVE: ? I am just not sure that I will be able to get them on (compression stockings) & I am not sure that you () can either. I don't want any of those wraps with velcro (Juxtalite or Juzo garments).?? OBJECTIVE: Pt seen for treatment of (B)LE edema & (L)LE wounds. Pt presents with today. MEASUREMENTS (cm) RIGHT today RIGHT on 10/30/15 LEFT today LEFT on 10/30/15 Calf girth 47.5 47.5 47.0 48.2 Ankle girth 27.0 27.5 28.3 29.2 Knee to heel length NE 48.0 NE 47.0 Wound pain: 09/17 Dressing removed: Profore wraps (B)LEs, Mepilex Lite dressing (L)LE Drainage: minimal to moderate serosanguinous drainage Odor: none Wound #1 Location: Left distal, anterior, slightly lateral lower leg Periwound: dry, scaly skin Wound bed: 100% red moist tissue with granulation Measurements: Not measured today Tunnelling: none Undermining: None There was a previously noted wound more lateral, posterior to above wound, which is NEARLY HEALED. Wound #2 Location: Left proximal posterior lower leg Periwound: intact Wound bed: 100% moist red tissue Measurements: not measured today Tunnelling: none Undermining: none Wound #3 Location: Left mid posterior lower leg, distal to wound #2 Periwound: intact Wound bed: 100% moist red tissue Measurements: not measured today Tunnelling: none Undermining: none NEW: pt noted to have 2 small (~0.4 cm x 1.0 cm) intact fluid filled blisters on (L) posterior mid lower leg along a wrinkle from wrap sliding down. Treatment Analgesia Provided: none Conservative Sharp Debridement: removing devitalized tissue using forceps @ wound edges removing < 20 cm sq. Bleeding: small amount, resolved w/NS rinse Wounds cleansed with NS Mineral oil was applied to dry scaling skin, then legs cleansed with body soap and water, rinsed and patted dry Pain Reassessment (0-10): 0/10 Dressings/Wraps applied:? Profore Wraps applied to bilateral LE 1. Legs and wounds were cleansed with normal saline 2. Mepilex Lite was applied to the wounds, extending dressing [...] stretch, making sure to enclose the heel.?? Self-care/home management: Discussed with patient care instructions of wraps, patient verbalized understanding Pt/CG ed provided R/T various types of compression stockings/garments including single layer, dual layer 30-40 mmHg compression stockings, Juxtalite or Juzo compression garments, Jobst donning device(which did not fit over pt's calf) & Magnide . Pt given written information. Pt & decided to order Caralon stocking system & will do research on other donning devices online. Perceived barriers to wound healing: CVI Patient Goals: full healing Further Objective Information: pt transfers (I), ambulates with cane (I) ASSESSMENT: These findings are consistent with (L)LE wounds & (B)LE wounds R/T venous insufficiency. Pt's wounds have continued to demonstrate ongoing significant signs of healing. We will order stockings today as wounds will be healed soon & edema seems to have stabilized. Pt should benefit from skilled PT intervention for wound care, to work towards outlined goals. Physical therapy is indicated to: Decrease edema Promote wound healing Offload pressure Relieve pressure Debride non-viable tissue Goals: watermelon harvesting supervisor goals (11/28/15) 1. (L)LE Wounds healed 2. Pt fitted with and instructed in use of compression stockings/garments to prevent future skin breakdown Medicare Therapy G-Code Date Tracking: (Update G-Code status every 10 visits or when code changes) 1 2 3 4 5 6 7 8 9 10 10/30/15 11/02/15 Physical therapy plan: 1-2 x per week x 2-4 weeks, tapering as indicated. Pt to be seen in conjunction with RN, CLAMP TRUCK DRIVER, [facility] in [facility]. Pt to look up donning devices for stockings online. DME: will ask [employer] WR[employer] to order Caralon Graduated Compression Multi-layer stocking system 30-40 mmHg, color Black, size E Regular via TWS. Treatment to include: Compression wraps (Profore wraps) Wound cleansing Selective sharps debridement of non-viable tissue Application of wound dressings Self-care/home management Other Recommendations: Pt will require lifelong use of 30-40 mmHg compression stockings for CVI. The plan has been discussed with the patient and they have agreed with the planned treatment. Total Treatment time: 38 minutes Total Timed Code Treatment: 20 minutes Visit start time: 949 End time: 1027 SANJIV EMANUEL PT, CWS documented in this encounter Plan of Treatment Not on file documented as of this encounter Visit Diagnoses Diagnosis Venous stasis ulcer of left lower extremity Chronic venous insufficiency Unspecified venous (peripheral) insufficiency documented in this encounter Care Teams Delivery Technician Relationship Specialty Start Date End Date Cherise Staples MD [address] [place] [id number] PCP - General 07/31/10 10/04/19 documented as of this encounter
--- OUTSIDE RECORDS SUMMARY | 2024-08-20 06:23 | XMS_ITS | Encounter Summary ---
Author Organization [facility] [place] [address] Care Team Providers Care Head Of Design Name Role Phone Cherise Staples MD Primary Care Provider [phone] Reason for Visit * Reason Comments Dressing Change LE venous ulcers Encounter Details Date Type Department Care Team (Late st Contact Info) Description 10/23/2015 4:00 PM EST Office [place] [phone] Dorothea Cantor APRN [facility] [place] [address] Venous stasis ulcer of left lower extremity [...] Sign Reading Time Taken Comments Blood Pressure 164/82 10/23/2015 4:03 PM EST Pulse 92 10/23/2015 4:03 PM EST Temperature 36.8 ??C (98.3 ??F) 10/23/2015 4:03 PM ES T Respiratory Rate 16 10/23/2015 4:03 PM EST Oxygen Saturation 98% 10/23/2015 4:03 PM EST Inhaled Oxygen Concentration - - Weight - - Height - - Body Mass Index - - documented in this encounter Progress Notes * Dorothea Cantor, PASS WORKER - 10/23/2015 4:28 PM EST Images from the original note were not included. [facility] Progress Note HPI: Jaime Crouch is a 70 y.o. male returns for follow up of venous stasis ulcers. A: [facility] Review Of Systems: Denies constitutional symptoms of fever, chills, sweats. Diet: appetite good, denies n,v, change in bowels Reports the profore wraps were comfortable Itching somewhat improved Pain: denies at present PE: Estimated body mass index is 55.96 kg/(m^2) as calculated from the following: ?? Height as of 08/30/15: 177.8 cm (5' 10). ?? Weight as of this encounter: 176.903 kg (390 lb). General: pleasant, morbidly obese male,?? in NAD. Mobility: independent Edema:??fairly well controlled. LE wraps falling down to mid-calf DP, PT pulse: ++ Stasis dermatitis: mild Exudate: well managed Odor: none ?? Left calf: 50.4 cm Left ankle: 30.0 cm Right calf: 50.0 cm Right ankle: 27.3 cm Length: 43.5 cm Left anterior lower leg 4.0 cm x 3.0 cm superficial Left lateral lower leg 4.0 cm x 3.0 cm x cm Left posterior lower leg 3.0 cm x 3.0 cm Left anterior and lateral Left posterior Treatment: Cleansed wound with normal saline and gauze. Removed devitalized tissue, slough, clot, debris with scalpel to subcutaneous tissue. Bleeding: controlled with NS Dsg: applied Profore Wraps applied to bilateral LE 1. Legs and wounds were cleansed with normal saline 2. mepilex foam was applied to the wounds, extending dressing onto intact periwound skin by approximately 1 cm. 3. Triamcinolone cream to intact tissue on bilat LE 4. Profore #1: Was applied by wrapping the foot in a spiral fashion starting at the base of the toeand contining in a sprial manner up the legs to the knee with a 50% overlap. 5. Profore #2: Was applied by wrapping the foot in a spiral fashion starting at the base of the toes and continuing over the heel and up the leg to just below the knee overlapping with a 50% overlap. 6. Profore #3: Was applied by wrapping the base of the toes to just below the knee making sure to enclose the heel in a figure of 8 fashion with a 50% stretch and a 50% overlap. 7. Profore #4: Was applied by starting at just above the toes working in a circular fashion to justbelow the knee with a 50% overlap and a 50% stretch, making sure to enclose the heel. Discussed with patient care instructions of wraps, patient verbalized understanding. Assessment/Plan: Jaime Crouch is a 70 y.o. male with venous stasis ulcers. The wounds are healing nicely. Will continue with current plan of care. Follow up: weekly documented in this encounter Plan of Treatment Not on file documented as of this encounter Visit Diagnoses Diagnosis Venous stasis ulcer of left lower extremity documented in this encounter Care Teams Head Of Design Relationship Specialty Start Date End Date Cherise Staples MD [address] [place] [id number] PCP - General 07/31/10 10/04/19 documented as of this encounter
--- OUTSIDE RECORDS SUMMARY | 2024-08-20 06:23 | XMS_ITS | Encounter Summary ---
[place] [address] Care Team Providers Care Guide Dog Instructor Name Role Phone Cherise Staples MD Primary Care Provider [phone] Reason for Visit * Reason Comments Dressing Change venous ulcer Encounter Details Date Type Department Care Team (Late st Contact Info) Description 11/16/2015 9:30 AM EST Office [place] [phone] Sanjiv Emanuel Venous stasis ulcer of left [...] Sign Reading Time Taken Comments Blood Pressure 145/89 11/16/2015 9:33 AM EST Pulse 76 11/16/2015 9:33 AM EST Temperature 36.7 ??C (98 ??F) 11/16/2015 9:33 AM EST Respiratory Rate 22 11/16/2015 9:33 AM EST Oxygen Saturation 97% 11/16/2015 9:33 AM EST Inhaled Oxygen Concentration - - Weight - - Height - - Body Mass Index - - documented in this encounter Progress Notes * Sanjiv Emanuel, PT - 11/16/2015 9:34 AM EST Images from the original note were not included. [facility] Physical Therapy Progress [...] pain, being managed with oxycodone. Treated at [facility]. He had ulcer in the right leg, [...] ambulates (I) with cane SUBJECTIVE: ? I scratched my left leg over the weekend & got 2 new wounds. I went to [facility] near home on Friday (11/13/15) & the doctor had to madi 2 more areas because they were bubbling up. I have been wearing the Tubigrips since then & they put a dressing on it. I ordered the large donning device too, so I should be getting that soon.?? OBJECTIVE: Pt seen for treatment of (B)LE edema & (L)LE wounds. Pt presents alone today. Pt presents todaywith 4 new open wounds (L)lateral LE. MEASUREMENTS (cm) RIGHT today RIGHT 11/09/15 RIGHT 11/06/15 RIGHT 11/02/15 RIGHT on 10/30/15 LEFT today LEFT 11/09/15 LEFT 11/06/15 LEFT 11/02/15 LEFT on 10/30/15 Calf girth 46.0 45.6 46.3 47.5 47.5 47.8 47.5 47.8 47.0 48.2 Ankle girth 28.0 29.0 27.2 27.0 27.5 29.6 29.2 28.6 28.3 29.2 Knee to heel length NE NE NE NE 48.0 NE NE NE NE 47.0 Wound pain: 09/17 Dressing removed: Mepilex 6x6 border dressing (L)LE; Double layer Tubigrips to (B)LEs Drainage: heavy serosanguinous drainage from (L)LE wound Odor: none ALL NEW: Wound #1 Location: Left distal, anterior lower leg Periwound: dry, scaly skin Wound bed: 100% red granulation tissue Measurements: 4.0 cm x 1.8 cm x 0.1 cm Tunnelling: none Undermining: None. Wound #2 Location: Left anterior, lateral lower leg, lateral to wound #1 Periwound: intact Wound bed: 100% red granulation tissue, post-debridement Measurements: 5.2 cm x 4.1 cm x 0.1 cm Tunnelling: none Undermining: none Wound #3 Location: Left lateral LE, lateral to wound #2 Periwound: intact Wound bed: 100% moist red tissue, post-debridement Measurements: 1.8 cm x 1.4 cm x 0.1 cm Tunnelling: none Undermining: none Wound #4 Location: Left lateral LE, distal to wound #3 Periwound: intact Wound bed: 100% moist red tissue, post-debridement Measurements: 2.0 cm x 3.6 cm x 0.1 cm Tunnelling: none Undermining: none PHOTOS-- Left lateral LE: Right LE no open areas PHOTO-- Right anterior LE: Treatment Analgesia Provided: none, pt declined need for Conservative Sharp Debridement: removing devitalized tissue with curette > 20 cm sq Dry, scaly skin removed (B)LEs with forceps Bleeding: none Wounds cleansed with NS Pain Reassessment (0-10): [...] 50% stretch to just below the knees 3. Discussed with patient care instructions of wraps, patient verbalized understanding. Pt familiarwith these. Pt instructed that he needs to wear compression stockings on his (R)LE instead of Tubigrips as stockings provide appropriate level of compression (30-40 mmHg). Perceived barriers to wound healing: CVI Patient Goals: full healing Further Objective Information: pt transfers (I), ambulates with cane (I) ASSESSMENT: Pt has been followed in [facility] for (L)LE wounds & (B)LE wounds R/T venous insufficiency. As of last visit, 1 week ago, his (L)LE wound were healed. Unfortunately he presents today with 4 new woundson distal lateral aspect of (L)LE which were initiated by pt scratching & opening skin over weekend. These wounds are now clean, appear superficial & have evidence of granulation tissue. Willreturn to compression wraps (Unna's boot with Coban wraps) to (L)LE to promote wound healing. The previously noted blister on his (R) anterior LE has since healed & pt will remain in his dual layer compression stockings on that leg. Pt should benefit from skilled PT intervention for wound care,to work towards outlined goals. Physical therapy is indicated to: Decrease edema Promote wound healing Offload pressure Relieve pressure Debride non-viable tissue Goals: manager terminal goals (11/28/15) 1. (L)LE Wounds healed--MET as of 11/09/15 2. Pt fitted with and instructed in use of compression stockings/garments to prevent future skin breakdown--MET as of 11/09/15 Medicare Therapy G-Code Date Tracking: (Update G-Code status every 10 visits or when code changes) 1 2 3 4 5 6 7 8 9 10 10/30/15 11/02/15 11/06/15 11/09/15 11/16/15 Physical therapy plan: 1-2 x per week x 2-4 weeks, tapering as indicated. Pt to be seen in conjunction with RN, SECRETARY BOARD [employer] COMMISSIONERS, CWCN in [facility]. Will return to 2x/wk visits in [facility]. Pt has ordered donning device for stockings online. DME: MEDICAL REGISTRAR ordered Caralon Graduated Compression Multi-layer stocking system 30-40 mmHg, color Black,size E Regular via TWS and pt received. Treatment to include: Compression wraps (Unna's boot with Coban wrap) Wound cleansing Selective sharps debridement of non-viable tissue Application of wound dressings Self-care/home management Other Recommendations: Pt will require lifelong use of 30-40 mmHg compression stockings for CVI. The plan has been discussed with the patient and they have agreed with the planned treatment. Total Treatment time: 21 minutes Total Timed Code Treatment: 0 minutes Visit start time: 939 End time: 1000 SANJIV EMANUEL PT, CWS documented in this encounter Plan of Treatment Not on file documented as of this encounter Visit Diagnoses Diagnosis Venous stasis ulcer of left lower extremity documented in this encounter Care Teams Guide Dog Instructor Relationship Specialty Start Date End Date Cherise Staples MD [address] [place] [id number] PCP - General 07/31/10 10/04/19 documented as of this encounter
--- OUTSIDE RECORDS SUMMARY | 2024-08-20 06:23 | XMS_ITS | Encounter Summary ---
Author Organization [facility] [place] [address] Care Team Providers Care Mobile Home Park Manager Name Role Phone Cherise Staples MD Primary Care Provider [phone] Reason for Visit * Reason Comments Nephrolithiasis Encounter Details Date Type Department Care Team (Late st Contact Info) Description 07/30/2016 1:00 PM EST [place] [phone] Edyta Arambula Jr., MD [facility] [place] [address] Nephrolithiasis Social History Tobacco Use Types Packs/Day [...] Sign Reading Time Taken Comments Blood Pressure 150/76 07/30/2016 1:02 PM EST Pulse 92 07/30/2016 1:02 PM EST Temperature 36.4 ??C (97.5 ??F) 07/30/2016 1:02 PM ES T Respiratory Rate - - Oxygen Saturation 95% 07/30/2016 1:02 PM EST Inhaled Oxygen Concentration - - Weight - - Height - - Body Mass Index - - documented in this encounter Progress Notes * Edyta Arambula Jr., MD - 07/30/2016 1:00 PM EST I saw and examined Jaime Crouch with Dr. Oseguera and have independently reviewed his imaging studies - -no evidence of new renal stones on u/s. He denies interval symptomatic kulwant colic. I agree with history, exam, impression, and plan as noted. We have recommended repeat 24h urine to update metabolic urine profile, but he declines. Plan follow up in 2 year, sooner prn. * Jane Oseguera MD - 07/30/2016 1:00 PM EST Urology Outpatient Progress Note HPI: Mr. Crouch is a pleasant 70 year old gentleman with a long h/o recurrent urolithiasis who returns for urologic follow up regarding his uric acid stones. He has not passed any stones since PCNL in 04/2009. In the interval since his follow up on 01/05/2014 he has been doing well. He has not had any lateralizing abdominal or flank pain. He has not had any hematuria or new LUTS. He remains on urocit k (20meq BID), is tolerating it well. He did have a UTI over the winter, for which he was on cipro for a week and it cleared up. His last US in 12/[address] scan done in 08/2015 showed a small `6mm non-obstructing right renal stone. This is not visible on US today. 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 ?? Review of Systems Hematologic/Lymphatic: Bruises/bleeds easily (on coumadin). Gastrointestinal: Negative for abdominal pain. Genitourinary: Negative for flank pain or difficulty with urination. Past medical history: urolithiasis, obesity, CAD ([place] age 52), HTN, h/o gout; atrial fibrillation Past surgical history: bilateral hip replacements (5 years ago), cardiac stent placement, appendectomy, right pcnl 2008, circumcision in [facility] several years ago, cholecystectomy 08/2015 requiring brief ICU stay Family history: sister with history of urolithiasis Social History: no tobacco history; occ'l alcohol use Physical Exam Constitutional: He appears well-developed and well-nourished. No distress. HENT: Head: Normocephalic and atraumatic. Cardiovascular: Normal rate. Pulmonary/Chest: Effort normal. Abdominal: Soft. There is no tenderness. There is no rebound. Genitourinary: No CVA tenderness ?? UA: pH of 5, otherwise negative Imaging studies: CT 08/2015 Small nonobstructing right renal stone Renal US from today There is mild bilateral renal pelviectasis without convincing evidence of caliectasis. No stones are seen on either side. 2.1 cm left renal cyst with thin septation unchanged from ultrasound of 01/05/2014 and of very low risk of malignancy. Impression/Plan: Jaime Crouch is a 70 yo M with a long history of uric acid nephrolithiasis, currently on potassium citrate 20meq BID. Imaging today shows no definitive stones. Will plan to have him return to clinic in 2 years with a renal US done at the time. Advised him to get a CT scan in the interim if he were to develop renal colic symptoms. We suggested that we could repeat a 24 hour urine collection now that he has been on k cit for several years. He is hesitant due to cost. Since he has been doing well clinically, he would prefer to simply continue current dose of potassium citrate. Also instructed him to keep very well hydrated, with a goal urine output of at least 2.5 L per day. Jane Oseguera MD Urology PGY-2 STAFF ADDENDUM: I saw and examined Jaime Crouch with Dr. Oseguera, have independently reviewed his Ultrasound, and concur with history, exam, impression, and plan as noted and amended above. EDYTA ARAMBULA JR, MD documented in this encounter Plan of Treatment Not on file documented as of this encounter Visit Diagnoses Diagnosis Nephrolithiasis Calculus of kidney documented in this encounter Care Teams Mobile Home Park Manager Relationship Specialty Start Date End Date Cherise Staples MD [address] [place] [address] PCP - General 07/31/10 10/04/19 documented as of this encounter
--- OUTSIDE RECORDS SUMMARY | 2024-08-20 06:23 | XMS_ITS | Encounter Summary ---
Author Organization [facility] [place] [address] Care Team Providers Care Bill Hiker Name Role Phone Cherise Staples MD Primary Care Provider [phone] Reason for Visit * Reason Comments Follow Up Surgery Encounter Details Date Type Department Care Team (Late st Contact Info) Description 09/25/2015 11:00 AM EST Office [place] [address] Barbie Coyne, [facility] [place] [address] Surgery follow-up Social History Tobacco Use Types Packs/Day Years [...] as of this encounter Progress Notes * Barbie Coyne, TAYLER - 09/25/2015 11:05 AM EST Mr Jaime Crouch ([phone]) is here for hospital check 09/01/15:laparoscopic cholecystectomy-[place] Path:Gallbladder, cholecystectomy: Acute and chronic cholecystitis.Cholelithiasis. Findings: Inflamed gallbladder, intrahepatic gallbladder Feels very well, no fevers chills malaise or sweats. Denies abd pain, nausea or vomiting, denies jaundice, pale stools, or dark urine. Energy and appetite good, reports he has finished the course of augmentin that he was discharged on. EXAM: Well appearing moves easily about the exam room and onto the exam table. Abd soft non tender non distended, sclera clear and non icteric, No jaundice, abd soft non tender obese. Superior trocar sitesare nicely healed, the mid abdominal trocar site with superficial wound separation Does not probe to q tip pressure, no erythema or fluctuance, band aid to cover. Impression/plan: Doing well, will see back in 1 month to assure trocar site has fully healed Jimbo is in agreement documented in this encounter Plan of Treatment Not on file documented as of this encounter Visit Diagnoses Diagnosis Surgery follow-up Follow-up examination, following unspecified surgery documented in this encounter Care Teams Bill Hiker Relationship Specialty Start Date End Date Cherise Staples MD [address] [place] [address] PCP - General 07/31/10 10/04/19 documented as of this encounter
--- OUTSIDE RECORDS SUMMARY | 2024-08-20 06:23 | XMS_ITS | Encounter Summary ---
[place] [address] Care Team Providers Care Natural Foods Clerk Name Role Phone Cherise Staples MD Primary Care Provider [phone] Reason for Visit * Reason Comments Wound Care Encounter Details Date Type Department Care Team (Late st Contact Info) Description 11/23/2015 9:30 AM EDT [place] [id number] Sanjiv Emanuel Venous stasis ulcer of left [...] as of this encounter Progress Notes * Sanjiv Emanuel, PT - 11/23/2015 9:44 AM EDT Images from the original note were [...] pain, being managed with oxycodone. Treated at [facility]. He had ulcer in the right leg, [...] Limitations: ambulates (I) with cane SUBJECTIVE: ? They (wounds are really healing). My leg (left) gets awful itchy & I try not to scratch it but I can't help it!?? OBJECTIVE: Pt seen for treatment of (B)LE edema & (L)LE wounds. Pt presents alone today. MEASUREMENTS (cm) RIGHT today RIGHT 11/16/15 RIGHT 11/09/15 RIGHT 11/06/15 RIGHT 11/02/15 LEFT today LEFT 11/16/15 LEFT 11/09/15 LEFT 11/06/15 LEFT 11/02/15 Calf girth 45.5 46.0 45.6 46.3 47.5 45.5 47.8 47.5 47.8 47.0 Ankle girth 27.0 28.0 29.0 27.2 27.0 30.0 29.6 29.2 28.6 28.3 Knee to heel length NE NE NE NE NE NE NE NE NE NE Wound pain: 09/17 Dressing removed: Unna's boot with Coban wrap & Mepilex 6x6 border dressing (L)LE; dual layer compression stockings (R)LE Drainage: moderate serosanguinous drainage Odor: none ALL NEW: Wound #1 Location: Left distal, anterior lower leg Periwound: dry, scaly skin Wound bed: NEWLY EPITHELIALIZED Measurements: N/A Tunnelling: none Undermining: None. Wound #2 Location: Left anterior, lateral lower leg, lateral to wound #1 Periwound: intact Wound bed: 100% red granulation tissue with epithelial tissue coming in from edges, post-debridement Measurements: 3.7 cm x 2.5 cm x 0.05 cm Tunnelling: none Undermining: none Wound #3 Location: Left lateral LE, lateral to wound #2 Periwound: intact Wound bed: 100% moist red tissue, post-debridement Measurements: 0.6 cm x 0.6 cm x 0.1 cm Tunnelling: none Undermining: none Wound #4 Location: Left lateral LE, distal to wound #3 Periwound: intact Wound bed: 100% moist red tissue with large epithelial island in center Measurements: 1.2 cm x 2.6 cm x 0.1 cm Tunnelling: none Undermining: none PHOTOS-- Left lateral LE: Treatment Analgesia Provided: none, pt declined need for Conservative Sharp Debridement: removing devitalized tissue with curette > 20 cm sq Triamcinolone (0.1%) cream applied to Dry, scaly skin (B)LEs Bleeding: none Wounds cleansed with NS Pain [...] wraps, patient verbalized understanding. Pt familiarwith these. Perceived barriers to wound healing: CVI Patient Goals: full healing Further Objective Information: pt transfers (I), ambulates with cane (I) ASSESSMENT: Pt has been followed in [facility] for recurrent (L)LE wounds & (B)LE wounds R/T venous insufficiency. His wounds are demonstrating rapid healing with significant reduction in size, with evidence of granulation & epithelial tissue; one of 4 wounds is now healed. Will continue compression wraps (Unna's boot with Coban wraps) to (L)LE to promote wound healing. Pt should benefit from skilled PT intervention for wound care, to work towards outlined goals. Physical therapy is indicated to: Decrease edema Promote wound healing Offload pressure Relieve pressure Debride non-viable tissue Goals: remote computer terminal operator goals (11/28/15) 1. (L)LE Wounds healed--MET as of 11/09/15 2. Pt fitted with and instructed in use of compression stockings/garments to prevent future skin breakdown--MET as of 11/09/15 Medicare Therapy G-Code Date Tracking: (Update G-Code status every 10 visits or when code changes) 1 2 3 4 5 6 7 8 9 10 10/30/15 11/02/15 11/06/15 11/09/15 11/16/15 11/23/15 Physical therapy plan: 1-2 x per week x 2-4 weeks, tapering as indicated. Pt to be seen in conjunction with RN, RESIDENTIAL AIR SEALING TECHNICIAN, CWCN in [facility]. Will continue 2x/wk visits in [facility]. Pt has ordered donning device for stockings online. DME: FISHER ordered Caralon Graduated Compression Multi-layer stocking system [...] with the planned treatment. Total Treatment time: 23 minutes Total Timed Code Treatment: 0 minutes Visit start time: 949 End time: 1012 SANJIV EMANUEL PT, CWS documented in this encounter Plan of Treatment Not on file documented as of this encounter Visit Diagnoses Diagnosis Venous stasis ulcer of left lower extremity documented in this encounter Care Teams Natural Foods Clerk Relationship Specialty Start Date End Date Cherise Staples MD [address] [place] [address] PCP - General 07/31/10 10/04/19 documented as of this encounter
--- OUTSIDE RECORDS SUMMARY | 2024-08-20 06:23 | XMS_ITS | Encounter Summary ---
Author Organization [facility] [place] [address] Care Team Providers Care Commercial Or Institutional Cleaner Name Role Phone Cherise Staples MD Primary Care Provider [phone] Encounter Details Date Type Department Care Team (Latest Contact Info) Description 10/17/2015 12:42 PM EST - 10/17/2015 11:59 PM [facility] [place] [phone] [place], [place] Venous stasis ulcer of left lower extremity Discharge Disposition: Home Social History Tobacco Use [...] needed for Chest pain. Reported on 02/17/2017 triamcinolone (KENALOG) 0.1 % Cream Apply topically 2 times daily. 30 g 0 10/18/2015 01/21/2017 oxyCODONE 5 mg Capsule Take 5 mg by mouth every 4 hours as needed. 11/02/2015 acetaminophen (TYLENOL) 500 mg Tablet Take 2 tablets by mouth every 6 hours. 30 tablet 1 09/02/2015 11/03/2017 senna-docusate (PERICOLACE) 8.6-50 mg Tablet Take 1 [...] 09/20/2014 01/21/2017 documented as of this encounter Plan of Treatment Not on file documented as of this encounter Procedures Procedure Name Priority Date/Time Associated Diagnosis Comments KELLI, LEGS, MULTIPLE LEVELS Routine 10/17/2015 12:49 PM EST Venous stasis ulcer of left lower extremity documented in this encounter Results * KELLI, legs, multiple levels (10/17/2015 12:49 PM EST) VB Text Report Department: Vascular Surgery Lab Patient: [id number] (LAZARO CROUCH) CPT: 21705 ICD10: L97.229;I83.029 Referring Physician: VERN FONTANEZ ?? Indications: Patient with left calf non-healing wound, needs compression, ? perfusion status Diabetes mellitus: No ICD10 Diagnosis Code: L97.229, I83.029 Definitions: KELLI = Ankle / Brachial Systolic Pressure Index, TBI = Toe / Brachial Systolic Pressure Index. All systolic pressures in this study are derived based on Doppler assessment of blood flow. Findings: Right ?Pressure (mm Hg) ?? KELLI [...] ankle/brachial pressure ratios and ankle Doppler waveforms. Comparison: ??No previous study in our vascular lab database for comparison. Electronically Signed by: RADHA DC on 2015-10-17 10:51:03 PM VAS[facility] VB Text Report End of Report [facility] 10/17/2015 12:4 9 PM EST Vern Fontanez MD VASCULAR ORDERABLES [facility]ASCU[facility] documented in this encounter Visit Diagnoses Diagnosis Venous stasis ulcer of left lower extremity documented in this encounter Care Teams Commercial Or Institutional Cleaner Relationship Specialty Start Date End Date Cherise Staples MD [address] [place] [address] PCP - General 07/31/10 10/04/19 documented as of this encounter
--- OUTSIDE RECORDS SUMMARY | 2024-08-20 06:23 | XMS_ITS | Encounter Summary ---
Author Organization [facility] Address [facility] [place] [address] Care Team Providers Care Interface Analyst Name Role Phone Cherise Staples MD Primary Care Provider [phone] Encounter Details Date Type Department Care Team (Late st Contact Info) Description 12/27/2015 [place] [address] Edyta Arambula Jr., MD [facility] [place] [address] Nephrolithiasis (Primary Dx) Social History Tobacco Use Types Packs/Day Years [...] this encounter Results * US Retroperitoneal Complete (07/30/2016 11:24 AM EST) Anatomical Region Laterality Modality Abdomen Ultrasound 07/30/2016 11:2 0 AM EST Impressions 07/30/2016 11:44 AM EST Retroperitoneal Complete Summary I ??viewed the images and agree with the above interpretation. ??Ultrasound Dictation: There is mild bilateral renal pelviectasis without convincing evidence of caliectasis. No stones are seen on either side. 2.1 cm left renal cyst with thin septation unchanged from ultrasound of 01/05/2014 and of very low risk of malignancy. ? Ryan Rivera MD Electronically Signed Final Report ?? 07/30/2016 11:44 am Narrative 07/30/2016 11:44 AM EST Renal ?(Signed Final 07/30/2016 11:44 am) PATIENT INFO: ID #: ? [id number] ?: ??[birth year] (70 yrs) Name: ? LAZARO CROUCH ? Visit Date: 07/30/2016 11:20 am PERFORMED BY: Performed By: ? Manny PERALTA, ??Mckenna Attending: ?Miguel SPIEVY, Ryan Sanchez. Referred By: ?EDYTA ARAMBULA Location: ? [facility] SERVICE(S) PROVIDED: ??URETRO - Retroperitoneal Complete - [id number] ? [id number] INDICATIONS: ??Nephroithiasis COMPARISON: Ultrasound: 01/05/14 RIGHT KIDNEY: Size (cm) ?L: ??13.4 Cortical Thickness: ?Normal Cortical Echogenicity: ?? Normal Hydronephrosis: ?Mild pelviectasis w/o caliectasis LEFT KIDNEY: Size (cm) ?L: ??14.6 Cortical Thickness: ?Normal Cortical Echogenicity: ?? Normal Hydronephrosis: ?Mild pelviectasis Comment: ?Cyst with thin septation measuring 2.1 x 1.7 x 2.1 ? cm. URINARY BLADDER: Pre-void (cm) ? L: ??6.3 ? AP: ??7.5 ? TV: ??4.9 Vol (ml): ?121.2 Comment: ?Partially distended, normal contour Procedure Note Ryan Rivera MD - 07/30/2016 Renal (Signed Final 07/30/2016 11:44 am) PATIENT INFO: ID #: [id number] : [birth year] (70 yrs) Name: LAZARO CROUCH Visit Date: 07/30/2016 11:20 am PERFORMED BY: Performed By: Mckenna Bryant RDMS Attending: Ryan Rivera MD Referred By: EDYTA ARAMBULA Location: [facility] SERVICE(S) PROVIDED: URETRO - Retroperitoneal Complete - [id number] INDICATIONS: Nephroithiasis COMPARISON: Ultrasound: 01/05/14 RIGHT KIDNEY: Size (cm) L: 13.4 Cortical Thickness: Normal Cortical Echogenicity: Normal Hydronephrosis: Mild pelviectasis w/o caliectasis LEFT KIDNEY: Size (cm) L: 14.6 Cortical Thickness: Normal Cortical Echogenicity: Normal Hydronephrosis: Mild pelviectasis Comment: Cyst with thin septation measuring 2.1 x 1.7 x 2.1 cm. URINARY BLADDER: Pre-void (cm) L: 6.3 AP: 7.5 TV: 4.9 Vol (ml): 121.2 Comment: Partially distended, normal contour IMPRESSION Retroperitoneal Complete Summary I viewed the images and agree with the above interpretation. Ultrasound Dictation: There is mild bilateral renal pelviectasis without convincing evidence of caliectasis. No stones are seen on either side. 2.1 cm left renal cyst with thin septation unchanged from ultrasound of 01/05/2014 and of very low risk of malignancy. Ryan Rivera MD Electronically Signed Final Report 07/30/2016 11:44 am MD CAMILLA Zavala Jr. US GEN ORDERAB LES documented in this encounter Visit Diagnoses Diagnosis Nephrolithiasis- Primary Calculus of kidney Nephrolithiasis Calculus of kidney documented in this encounter Care Teams Interface Analyst Relationship Specialty Start Date End Date Cherise Staples MD [address] [place] [address] PCP - General 07/31/10 10/04/19 documented as of this encounter
--- OUTSIDE RECORDS SUMMARY | 2024-08-20 06:23 | XMS_ITS | Encounter Summary ---
[place] [address] Care Team Providers Care Flame Channeler Name Role Phone Cherise Staples MD Primary Care Provider [phone] Reason for Visit * Reason Comments Wound Care left leg Encounter Details Date Type Department Care Team (Late st Contact Info) Description 10/30/2015 10:00 AM EST Office [place] [phone] Sanjiv Emanuel Venous stasis ulcer of left [...] Sign Reading Time Taken Comments Blood Pressure 131/76 10/30/2015 10:07 AM EST Pulse 79 10/30/2015 10:07 AM EST Temperature 36.4 ??C (97.5 ??F) 10/30/2015 10:[address] Respiratory Rate - - Oxygen Saturation 96% 10/30/2015 10:07 AM EST Inhaled Oxygen Concentration - - Weight - - Height - - Body Mass Index - - documented in this encounter Progress Notes * Sanjiv Emanuel, PT - 10/30/2015 10:25 AM EST Images from the original note were not included. [facility] Physical Therapy Initial Evaluation Note Date of Exam/First Treatment: 10/30/15 Date [...] pain, being managed with oxycodone. Treated at [facility]. He had ulcer in the right leg, many years ago, which healed while he was admitted for 2 weeks with another medical issue. He has compression stockings but is unableto don them. His job requires extended sitting. He is morbidly obese and unable to walk very far. He is not a diabetic or a smoker. VNA:?? none Patient Active Problem List?? Diagnosis?? Code? Nephrolithiasis?? N20.0? Phimosis?? N47.1? Hypertension?? I10? Suspected cholecystitis vs cholangitis?? K81.9? Atrial fibrillation?? I48.91? TOM on CPAP?? G47.33? Morbid obesity?? E66.01? Hypertension (HTN)?? I10? CAD ?? I25.10? Nonsustained ventricular tachycardia?? I47.2? Cholangitis?? K83.0? Chronic venous insufficiency?? I87.2? Venous stasis ulcer of left lower extremity?? I83.029?? Social History History? Social History? Marital Status:? Spouse Name:?? N/A? Number of Children:?? N/A? Years of Education:?? N/A? Social History Main Topics? Smoking status:?? Former Smoker? Smokeless tobacco:?? Never Used? Alcohol Use:?? Yes? Comment: varies on kind, drinks maybe once a week\? Drug Use:?? No? Sexual Activity:?? Not Currently? Other Topics?? Concern? Not on file? Social History Narrative?? 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 KELLI [...] ankle/brachial pressure ratios and ankle Doppler waveforms. Imaging: none Pertinent labs: none Prior Level of Function: Unchanged per pt Functional Limitations: ambulates (I) with cane SUBJECTIVE: ???Can you write the name of those (compression stockings, garments, donning device) down so that I can look them up online??? OBJECTIVE: Pt seen for initial evaluation and treatment of (B)LE edema & (L)LE wounds. Pt presents alone. MEASUREMENTS (cm) RIGHT LEFT Calf girth 47.5 48.2 Ankle girth 27.5 29.2 Knee to heel length 48.0 47.0 Feet: ++DP, PT pulses (B) Wound pain: Dressing removed: Profore wraps (B)LEs, Mepilex foam dressing (L)LE Drainage: minimal to moderate serosanguinous drainage Odor: none Wound #1 Location: Left distal, anterior, slightly lateral lower leg Periwound: dry, scaly skin Wound bed: 100% red moist tissue with granulation Measurements: 3.4 cm L x 1.6 cm W x 0.05 cm D Tunnelling: none Undermining: None There was a previously noted wound more lateral, posterior to above wound, which is NEARLY HEALED. PHOTO-- Wound #2 Location: Left proximal posterior lower leg Periwound: intact Wound bed: 100% moist red tissue Measurements: 0.6 cm L x 0.8 cm W Tunnelling: none Undermining: none Wound #3 Location: Left mid posterior lower leg, distal to wound #2 Periwound: intact Wound bed: 100% moist red tissue Measurements: 2.0 cm L x 1.0 cm W Tunnelling: none Undermining: none PHOTO-- Treatment Analgesia Provided: none Conservative Sharp Debridement: removing devitalized tissue using forceps @ wound edges removing < 20 cm sq. Bleeding: small amount, resolved w/NS rinse Wounds cleansed with NS Mineral oil was applied to dry scaling skin, then legs cleansed with body soap and water, rinsed and patted dry Pain Reassessment (0-10): 0/10 Wound beds 100% red moist tissue w/granulation buds post debridement.?? Islands of newly epithelialized tissue present w/in wound beds Dressings/Wraps applied:? Profore Wraps applied to bilateral [...] care instructions of wraps, patient verbalized understanding Pt ed provided R/T various types of compression stockings/garments including single layer, dual layer 30-40 mmHg compression stockings, Juxtalite or Juzo compression garments & Jobst donning device. Pt given written list of all. Perceived barriers to wound healing: CVI Patient Goals: full healing Further Objective Information: pt transfers (I), ambulates with cane (I) ASSESSMENT: These findings are consistent with (L)LE wounds & (B)LE wounds R/T venous insufficiency. Pt's wound have demonstrated significant signs of healing since previous visit in [facility] with significant reduction in size of 2 out of 3 wounds, with the 3rd now being nearly healed. Pt not sure which type of compression garment or stocking that he wound like & believes that he will have difficulty donning any of them d/t limited ROM of (L)>>(R) hips & knees. We will need to order garments/stockings soon as wounds will be healed soon & edema seems to have stabilized. Pt should benefitfrom skilled PT intervention for wound care, to work towards outlined goals. Physical therapy is indicated to: Decrease edema Promote wound healing Offload pressure Relieve pressure Debride non-viable tissue Goals: snf goals (11/28/15) 1. (L)LE Wounds healed 2. Pt fitted with and instructed in use of compression stockings/garments to prevent future skin breakdown G-Code: Other PT/OT Primary Status Modifier CURRENT CH - 0 percent impaired, limited or restricted PROJECTED CH - 0 percent impaired, limited or restricted DISCHARGE Not Discharged Yet - Ongoing G Code Rationale: This G-Code and these disability modifiers were selected as the primary therapy goal based upon the patient's evaluation including the following functional test(s) No Functional Measure Used. Current ability measures, co-morbidities and clinical judgement were also used to select the disability modifier. Mr. Crouch's current G-Code functional level is 0% impaired based upon wound assessment only. Medicare Therapy G-Code Date Tracking: (Update G-Code status every 10 visits or when code changes) 1 2 3 4 5 6 7 8 9 10 10/30/15 Physical therapy plan: 1-2 x per week x 2-4 weeks, tapering as indicated. Pt to be seen in conjunction with RN, HELP DESK TEAM LEADER, CWCN in [facility]. Pt to look up compression garments online & do some research before deciding which one he woundlike. Next visit: will need to order 30-40 mmHg compression garments or stockings for pt. Treatment to include: Compression wraps (Profore wraps) Wound cleansing Selective sharps debridement of non-viable tissue Application of wound dressings Self-care/home management Other Recommendations: Pt will require lifelong use of 30-40 mmHg compression stockings for CVI. The plan has been discussed with the patient and they have agreed with the planned treatment. Total Treatment time: 57 minutes Total Timed Code Treatment: 0 minutes Visit start time: 1033 End time: 1126 SANJIV EMANUEL PT, CWS documented in this encounter Plan of Treatment Not on file documented as of this encounter Visit Diagnoses Diagnosis Venous stasis ulcer of left lower extremity documented in this encounter Care Teams Flame Channeler Relationship Specialty Start Date End Date Cherise Staples MD [address] [place] [id number] PCP - General 07/31/10 10/04/19 documented as of this encounter
--- OUTSIDE RECORDS SUMMARY | 2024-08-20 06:23 | XMS_ITS | Encounter Summary ---
[place] [address] Care Team Providers Care Interactive Graphic Designer Name Role Phone Cherise Staples MD Primary Care Provider [phone] Reason for Visit * Reason Comments Wound Care legs Encounter Details Date Type Department Care Team (Late st Contact Info) Description 12/04/2015 9:30 AM EDT Office [place] [phone] Sanjiv Emaneul Venous stasis ulcer of left lower extremity [...] Sign Reading Time Taken Comments Blood Pressure 125/97 12/04/2015 9:30 AM EDT Pulse 81 12/04/2015 9:30 AM EDT Temperature 36.4 ??C (97.5 ??F) 12/04/2015 9:30 AM ED T Respiratory Rate - - Oxygen Saturation 98% 12/04/2015 9:30 AM EDT Inhaled Oxygen Concentration - - Weight - - Height - - Body Mass Index - - documented in this encounter Patient Instructions * Patient Instructions* Sanjiv Emanuel, PT - 12/04/2015 10:03 AM EDT Your wounds are healed on both legs today. You have dressings in place that can be removed in 3-5 days & do not need to be replaced if wounds remain healed. Continue to use compression stockings (recommend 30-40 mmHg level) during all waking hours, applying within 20 minute of getting up in morning. Stockings will need to be replace within 3-6 months, as they lose their elasticity. Use Triamcinolone cream (0.1%) if skin dry & itchy. Try to refrain from scratching your legs. documented in this encounter Progress Notes * Sanjiv Emanuel, PT - 12/04/2015 9:47 AM EDT Images from the original note were not included. [facility] Physical Therapy [...] pain, being managed with oxycodone. Treated at [facility]. He had ulcer in the right leg, many years ago, which healed while he was admitted for 2 weeks with another medical issue. He has compression stockings but is unableto don them. His job requires extended sitting. He is morbidly obese and unable to walk very far. He is not a diabetic or a smoker. VNA:?? none SUBJECTIVE: ? I prefer to just wear the outer layer (of dual layer stockings). I got & used my new donning device (Medi Big Bulter) & it works really slick!? OBJECTIVE: Pt seen for treatment of (B)LE edema & (B)LE wounds. Pt presents alone today. MEASUREMENTS (cm) RIGHT today RIGHT 12/02/15 RIGHT 11/27/15 RIGHT 11/23/15 RIGHT 11/16/15 RIGHT 11/09/15 LEFT today LEFT 11/30/15 LEFT 11/27/15 LEFT 11/23/15 LEFT 11/16/15 LEFT 11/09/15 Calf girth 47.8 48.0 49.6 45.5 46.0 45.6 48.4 46.3 46.4 45.5 47.8 47.5 Ankle girth 28.0 27.0 26.7 27.0 28.0 29.0 29.5 30.0 29.5 30.0 29.6 29.2 Knee to heel length NE NE NE NE NE NE NE NE NE NE NE NE Wound pain: 09/17 Dressing removed: Compression stockings & Mepilex 4x4 border dressing (L)LE Drainage:scant serosanguinous drainage (L)LE wounds Odor: none Wound #1 Location: Left distal, anterior lower leg Periwound: dry, scaly skin Wound bed: HEALED Measurements: N/A Tunnelling: none Undermining: None PHOTO-- Wound #2 Location: Left anterior, lateral lower leg, lateral to wound #1 Periwound: intact Wound bed: NOW HEALED Measurements: N/A Tunnelling: none Undermining: none PHOTO-- Wound #3 Location: Left lateral LE, lateral to wound #2 Periwound: intact Wound bed: HEALED Measurements: N/A Tunnelling: none Undermining: none Wound #4 Location: Left lateral LE, distal to wound #3 Periwound: intact Wound bed: NEWLY EPITHELIALIZED Measurements: N/A Tunnelling: none Undermining: none NEW: Wound #5 Location: Right anterior proximal LE Periwound: intact Wound bed: NOW HEALED Measurements: N/A Tunnelling: none Undermining: none PHOTO-- Treatment Analgesia Provided: none, pt declined need for Conservative Sharp Debridement of non-viable tissue (L) LE wound with forceps < 20 cm sq Dry, scaly skin removed with forceps (B)LEs Bleeding: none Wounds cleansed with NS Pain Reassessment (0-10): 0/10 Dressings applied: Mepilex Lite border dressing applied to healed (R) anterior LE wound site Mepilex 4x4 border dressing applied to healed (L) anterior/lateral wound sites Mepilex Lite border dressings applied to 2 small open wounds anterior LE LIFE SKILLS WORKER donned pt's Caralon dual layer compression stockings Self-care/home management: Pt ed R/T recommended level of compression (30-40 mmHg), lifetime wear/use, skin care. Pt given written instructions via AVS: Your wounds are healed on both legs today. You have dressings in place that can be removed in 3-5 days & do not need to be replaced if wounds remain healed. Continue to use compression stockings (recommend 30-40 mmHg level) during all waking hours, applying within 20 minute of getting up in morning. Stockings will need to be replace within 3-6 months, as they lose their elasticity. Use Triamcinolone cream (0.1%) if skin dry & itchy. Try to refrain from scratching your legs. Perceived barriers to wound healing: CVI Patient Goals: full healing Further Objective Information: pt transfers (I), ambulates with cane (I) ASSESSMENT: Pt has been followed in [facility] for recurrent (L)LE wounds & (B)LE wounds R/T venous insufficiency. His (L)LE wounds are now healed. The previously noted wound on (R) proximal anterior LE from excoriation, has since healed. Pt tolerating transition pt into 30-40 mmHg compression stockings, howeverhe prefers to wear top layer which is 20-30 mmHg, as above. Pt educated once again that 30-40 mmHg level of compression is recommended for him. Pt no longer requires skilled PT intervention for woundcare, and no need to be seen again in [facility] unless recurrent skin breakdown occurs. 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 (L)LE Wounds healed--HAD BEEN MET as of 11/09/15, but recurrent skin breakdown. MET again, as of 12/04/15 2. Pt fitted with and instructed in use of compression stockings/garments to prevent future skin breakdown--MET as of 11/09/15 G-Code: Other PT/OT Primary Status Modifier CURRENT CH - 0 percent impaired, limited or restricted PROJECTED CH - 0 percent impaired, limited or restricted DISCHARGE CH - 0 percent impaired, limited or restricted G Code Rationale: This G-Code and these [...] 10 10/30/15 11/02/15 11/06/15 11/09/15 11/16/15 11/23/15 11/27/15 11/30/15 12/04/15 Physical therapy plan: pt no longer requires skilled PT intervention for wound care & does not require f/u in [facility] unless recurrent skin breakdown. Pt agreed with plan. F/u in 4 days, if wounds healed & pt tolerating compression stockings, will likely discharge ptfrom [facility]. Pt agrees with plan. Pt has ordered donning device for stockings online. DME: as of 11/23/15, asked BAND SAWING MACHINE OPERATOR to order another pair of Caralon Graduated Compression Multi-layer stocking system 30-40 mmHg, color Black, size E Regular via TWS for pt. Pt reports on 11/30/15 that he received them & he brought them today. As of 11/30/15, asked BAND SAWING MACHINE OPERATOR to order dressings (Mepilex 3x3 border dressing for (R)LE wound & Mepilex 4x4 border dressing for (L)LE wound) via TWS, which pt reports that he received. Other Recommendations: Pt will require lifelong use of 30-40 mmHg compression stockings for CVI. The plan has been discussed with the patient and they have agreed with the planned treatment. Total Treatment time: 17 minutes Total Timed Code Treatment: 12 minutes Visit start time: 946 End time: 1003 SANJIV EMANUEL PT, CWS documented in this encounter Plan of Treatment Not on file documented as of this encounter Visit Diagnoses Diagnosis Venous stasis ulcer of left lower extremity documented in this encounter Care Teams Interactive Graphic Designer Relationship Specialty Start Date End Date Cherise Staples MD [address] [place] [address] PCP - General 07/31/10 10/04/19 documented as of this encounter
--- OUTSIDE RECORDS SUMMARY | 2024-08-20 06:23 | XMS_ITS | Encounter Summary ---
Author Organization [facility] [place] [address] Care Team Providers Care Mines Safety Engineer Name Role Phone Cherise Staples MD Primary Care Provider [phone] Reason for Visit * Diagnostic Test (Routine) - Closed Specialty Diagnoses / Procedures Referred By Contalberto t Referred To Contact Radiology Diagnoses Chronic systolic heart failure SOB (shortness of breath) Coronary artery disease involving [place] heart, angina presence unspecified, unspecified vessel or lesion type Procedures NM Myocardial Perfusion Scan Pharmacologic Carito Cabrear MD [facility] [place] [address] [place] [address] Referral ID Status Reason Start Date Expiration Date V isits Requested Visits Authorized [id number] Closed Specialty Service Requested 01/21/2017 01/21/2018 4 4 Encounter Details Date Type Department Care Team (Latest Contact Info) Description 02/17/2017 8:42 AM EDT Hospital Encounter [place] [address] Slim Summers MD [facility] [place] [address] Discharge Disposition: Home Social History [...] (shortness of breath) Coronary artery disease involving [place] heart, angina presence unspecified, unspecified vessel or [...] on filedocumented in this encounter Care Teams Mines Safety Engineer Relationship Specialty Start Date End Date Cherise Staples MD [address] [place] [address] PCP - General 07/31/10 10/04/19 documented as of this encounter
--- OUTSIDE RECORDS SUMMARY | 2024-08-20 06:23 | XMS_ITS | Encounter Summary ---
Author Organization [facility] Address [facility] [place] [address] Care Team Providers Care Medical Lab Technician Name Role Phone Cherise Staples MD Primary Care Provider Encounter Details Date Type Department Care Team (Latest Contact Info) Description 07/30/2016 10:58 AM EST - 07/30/2016 11:59 PM [facility] Hospital [place] [address] Edyta Arambula Jr., MD [facility] [place] [address] Nephrolithiasis Discharge Disposition: Home Social History Tobacco [...] times daily. 30 g 0 10/18/2015 01/21/2017 acetaminophen (TYLENOL) 500 mg Tablet Take 2 tablets by mouth every 6 hours. 30 tablet 1 09/02/2015 11/03/2017 potassium Citrate (UROCIT) 10 mEq (1,080 mg) [...] Associated Diagnosis Comments US RETROPERITONEAL COMPLETE Routine 07/30/2016 11:24 AM EST Nephrolithiasis documented in this encounter Results * [...] 11:44 am) PATIENT INFO: ID #: ? [id number] ?: ??[birth year] (70 yrs) Name: ? LAZARO CROUCH ? Visit Date: 07/30/2016 11:20 am PERFORMED BY: Performed By: ? Manny PERALTA, ??Mckenna Attending: ?Miguel SPIVEY, Ryan Sanchez. Referred By: ?EDYTA ARAMBULA Location: ? [place] SERVICE(S) PROVIDED: ??URETRO - Retroperitoneal Complete - [id number] ? [id number] INDICATIONS: ??Nephroithiasis COMPARISON: Ultrasound: 01/05/14 RIGHT KIDNEY: [...] 07/30/2016 11:44 am) PATIENT INFO: ID #: [id number] : [birth year] (70 yrs) Name: LAZARO CROUCH Visit Date: 07/30/2016 11:20 am PERFORMED BY: Performed By: Mckenna Bryant RDMS Attending: Ryan Rivera MD Referred By: EDYTA ARAMBULA Location: [place] SERVICE(S) PROVIDED: URETRO - Retroperitoneal Complete - [id number] INDICATIONS: Nephroithiasis COMPARISON: Ultrasound: 01/05/14 RIGHT KIDNEY: [...] Electronically Signed Final Report 07/30/2016 11:44 am Edyta Arambula Jr., MD IMG US GEN ORDERAB LES documented in this encounter Visit Diagnoses Diagnosis Nephrolithiasis Calculus of kidney documented in this encounter Care Teams Medical Lab Technician Relationship Specialty Start Date End Date Cherise Staples MD [address] [place] [address] PCP - General 07/31/10 10/04/19 documented as of this encounter
--- OUTSIDE RECORDS SUMMARY | 2024-08-20 06:23 | XMS_ITS | Encounter Summary ---
Author Organization [place] [address] Care Team Providers Care Nursing Resident Name Role Phone Cherise Staples MD Primary Care Provider [phone] Reason for Referral * Diagnostic Test (Routine) - Closed Specialty Diagnoses / Procedures Referred By Carla soto Referred To Contact Cardiology Diagnoses Chronic systolic heart failure SOB (shortness of breath) Coronary artery disease involving [place] heart, angina presence unspecified, unspecified vessel or lesion type Procedures Echocardiogram Transthoracic(Leb) Carito Cabrera MD [facility] [address] [facility] [place] [address] Referral ID Status Reason Start Date Expiration Date V isits Requested Visits Authorized [id number] Closed Specialty Service Requested 01/21/2017 01/21/2018 1 1 Reason for Visit * Diagnostic Test (Routine) - Closed Specialty Diagnoses / Procedures Referred By Carla osto Referred To Contact Cardiology Diagnoses Chronic systolic heart failure SOB (shortness of breath) Coronary artery disease involving [place] heart, angina presence unspecified, unspecified vessel or lesion type Procedures Echocardiogram Transthoracic(Leb) Carito Cabrera MD [facility] [address] [facility] [place] [address] Referral ID Status Reason Start Date Expiration Date V isits Requested Visits Authorized [id number] Closed Specialty Service Requested 01/21/2017 01/21/2018 1 1 Encounter Details Date Type Department Care Team (Latest Contact Info) Description 02/17/2017 7:18 AM EDT - 02/17/2017 8:40 AM EDT Hospital Encounter Non-[place] [address] Chronic systolic heart failure; SOB (shortness of breath); Coronary artery disease involving [place] heart, angina presence unspecified, unspecified vessel or [...] Diagnosis Comments ECHO COMPLETE W CONTRAST Routine 02/17/2017 8:39 AM EDT Chronic systolic heart failure SOB (shortness of breath) Coronary artery disease involving [place] heart, angina presence unspecified, unspecified vessel or lesion type documented in this encounter Results * ECHO COMPLETE W CONTRAST (02/17/2017 8:39 AM EDT) Anatomical Region Laterality Modality Other 02/17/2017 Narrative 02/17/2017 10:05 AM EDT Procedure: ?Transthoracic Echocardiogram Patient: ?RAINA WILLIS ?(Age): 1945(71y) Med Rec#: ? [id number] ?Sex: ?M ? Site Loc: ? [facility] ?Ht / Wt: ??178(cm)/186(kg) Pt. Loc: ?Echo Lab ?BSA: ?2.83 Study Date: ?? 02/17/2017 ?Pt. Type: Outpatient Tape: ? Referring: Slim Summers ([id number]) Reading: Logan Irizarry ([id number]) Pediatric Intensive Physician: Eleonora Watt RDCS Interpreting Fellow: Amber Pulliam Interpreting Fellow: Lionel Hemphill ([id number]) Diagnosis: *ICD-10-PCS Dyspnea, unspecified (R06.00) *ICD-10-PCS Unspecified [...] ? Mid-Inferior ?Normal ? Mid-Inferoseptal ?Normal ? [place]-Septal ? Normal ? [place]-Anterior ? Normal ? [place]-Lateral ?Normal ? [place]-Inferior ? Normal ? [place]-Tip ?Normal ? This report has been electronically signed by: Logan Irizarry MD ? 02/17/2017 10:04:56 Images reviewed and interpretation verified [facility] Cardiac Ultrasound Laboratory Procedure Note Logan Irizarry MD - 02/17/2017 Procedure: Transthoracic Echocardiogram Patient: RAINA GREENBERG(Age): 1945(71y) Med Rec#: [id number] Sex: M Site Loc: [facility] Ht / Wt: 178(cm)/186(kg) Pt. Loc: Echo Lab BSA: 2.83 Study Date: 02/17/2017 Pt. Type: Outpatient Tape: Referring: Slim Summers ([id number]) Reading: Logan Irizarry ([id number]) Pediatric Intensive Physician: Eleonora Watt [facility] Interpreting Fellow: Amber Pulliam Interpreting Fellow: Lionel Hemphill ([id number]) Diagnosis: *ICD-10-PCS Dyspnea, unspecified (R06.00) *ICD-10-PCS Unspecified [...] Normal Mid-Posterolateral Normal Mid-Inferior Normal Mid-Inferoseptal Normal [place]-Septal Normal [place]-Anterior Normal [place]-Lateral Normal [place]-Inferior Normal [place]-Tip Normal This report has been electronically signed by: Logan Irizarry MD 02/17/2017 10:04:56 Images reviewed and interpretation verified [facility] Cardiac Ultrasound Laboratory Slim Summers MD ECHO ORDERABLES documented in this encounter Visit Diagnoses Diagnosis Chronic systolic heart failure SOB (shortness of breath) Shortness of breath Coronary artery disease involving [place] heart, angina presence unspecified, unspecified vessel or lesion type documented in this encounter Administered Medications Inactive Administered Medications - up to 3 most recent administrations Medication Order MAR Action Action Date Dose Rate Site perflutren protein-A microspheres (OPTISON) 0.22 mg/mL injection 3 mL 3 mL, Intravenous, ONCE, 1 dose, On Fri02/17/17 at 0815, Routine Given 02/17/2017 7:30 AM EDT 3 mLs documented in this encounter Care Teams Nursing Resident Relationship Specialty Start Date End Date Cherise Staples MD [address] [place] [address] PCP - General 07/31/10 10/04/19 documented as of this encounter
--- OUTSIDE RECORDS SUMMARY | 2024-08-20 06:23 | XMS_ITS | Encounter Summary ---
[place] [address] Care Team Providers Care Market Research Worker Name Role Phone Cherise Staples MD Primary Care Provider [phone] Reason for Visit * Reason Comments Wound Care Encounter Details Date Type Department Care Team (Late st Contact Info) Description 11/30/2015 9:30 AM EDT Office Visit [place] [phone] Sanjiv Emanuel Venous stasis ulcer of left [...] Progress Notes * Sanjiv Emanuel, PT - 11/30/2015 9:25 AM EDT Images from the original note [...] pain, being managed with oxycodone. Treated at [facility]. He had ulcer in the right leg, many years ago, which healed while he was admitted for 2 weeks with another medical issue. He has compression stockings but is unableto don them. His job requires extended sitting. He is morbidly obese and unable to walk very far. He is not a diabetic or a smoker. VNA:?? none SUBJECTIVE: ???Could I do the stockings? I would really like to shower. They (wounds) are almost healed, right??? OBJECTIVE: Pt seen for treatment of (B)LE edema & (B)LE wounds. Pt presents alone today. MEASUREMENTS (cm) RIGHT today RIGHT 11/27/15 RIGHT 11/23/15 RIGHT 11/16/15 RIGHT 11/09/15 RIGHT 11/06/15 LEFT today LEFT 11/27/15 LEFT 11/23/15 LEFT 11/16/15 LEFT 11/09/15 LEFT 11/06/15 Calf girth 48.0 49.6 45.5 46.0 45.6 46.3 46.3 46.4 45.5 47.8 47.5 47.8 Ankle girth 27.0 26.7 27.0 28.0 29.0 27.2 30.0 29.5 30.0 29.6 29.2 28.6 Knee to heel length NE NE NE NE NE NE NE NE NE NE NE NE Wound pain: 09/17 Dressing removed: Unna's boot with Coban wrap & Mepilex 6x6 border dressing (L)LE; dual layer compression stockings (R)LE (undersock had bunched up & wrinkled under over sock) Drainage: minimal serosanguinous drainage (B)LE wounds Odor: none Wound #1 Location: Left distal, anterior lower leg Periwound: dry, scaly skin Wound bed: HEALED Measurements: N/A Tunnelling: none Undermining: None PHOTO-- Wound #2 Location: Left anterior, lateral lower leg, lateral to wound #1 Periwound: intact Wound bed: 100% red granulation tissue Measurements: 0.9 cm x 0.3 cm x 0.05 cm Tunnelling: none Undermining: none PHOTO-- Wound #3 Location: Left lateral LE, lateral to wound #2 Periwound: intact Wound bed: HEALED Measurements: N/A Tunnelling: none Undermining: none Wound #4 Location: Left lateral LE, distal to wound #3 Periwound: intact Wound bed: NEWLY EPITHELIALIZED Measurements: N/A Tunnelling: none Undermining: none NEW: Wound #5 Location: Right anterior proximal LE Periwound: intact Wound bed: 100% red moist tissue, post-debridement Measurements: 0.6 cm x 0.6 cm x 0.1 cm Tunnelling: none Undermining: none PHOTO-- Treatment Analgesia Provided: none, pt declined need for Conservative Sharp Debridement of non-viable tissue (R) LE wound with forceps < 20 cm sq Dry, scaly skin removed with forceps (L)LE Bleeding: none Wounds cleansed with NS Pain Reassessment (0-10): 0/10 Dressings applied: Mepilex AG 3x3 border dressing applied to (R) anterior LE wound Mepilex 4x4 border dressing applied to (L) anterior/lateral wound sites Mepilex Lite border dressings applied to small intact blister anterior lower leg & newly epithelialized wound distal anterior LE SLASHER RUNNER donned pt's Caralon dual layer compression stockings Pt reminded/instructed that he needs to wear his compression stockings during waking hours, keep wounds covered with dressings until healed, keep dressings in place when showering, then replace with new dressings. Pt instructed to adjust his socks periodically throughout the day to avoid them sliding down & bunching up/causing wrinkles. Pt reporting that he has purchased 20-30 mmHg compression stockings & wants to try. Pt informed that that level of compression may not maintain his edema & prevent recurrent skin breakdown & that continued 30-40 mmHg compression level is recommended for him. Perceived barriers to wound healing: CVI Patient Goals: full healing Further Objective Information: pt transfers (I), ambulates with cane (I) ASSESSMENT: [facility] (L)LE wounds & (B)LE wounds R/T venous insufficiency. His (L)LE wounds are demonstrating rapid healing with significant reduction in size, with evidenceof granulation & epithelial tissue; 3 of 4 wounds are now healed. Pt noted to have eschar covering shallow wound once debrided on (R) proximal anterior LE from excoriation. Will transition pt into 30-40 mmHg compression stockings, as above. Pt should benefit from skilled PT intervention for wound care, to work towards outlined goals. Physical therapy is indicated to: Decrease edema Promote wound healing Offload pressure Relieve pressure Debride non-viable tissue Goals: [facility] goals (11/28/15) 1. (L)LE Wounds healed--MET as of 11/09/15 2. Pt fitted with and instructed in use of compression stockings/garments to prevent future skin breakdown--MET as of 11/09/15 Medicare Therapy G-Code Date Tracking: (Update G-Code status every 10 visits or when code changes) 1 2 3 4 5 6 7 8 9 10 10/30/15 11/02/15 11/06/15 11/09/15 11/16/15 11/23/15 11/27/15 11/30/15 Physical therapy plan: 1-2 x per week x 2-4 weeks, tapering as indicated. Pt to be seen in conjunction with RN, RIBBON CUTTER, [facility] in [facility]. F/u in 4 days, if wounds healed & pt tolerating compression stockings, [facility]. Pt agrees with plan. Pt has ordered donning device for stockings online. DME: as of 11/23/15, asked NETWORK LEAD to order another pair of Caralon Graduated Compression Multi-layer stocking system 30-40 mmHg, color Black, size E Regular via TWS for pt. Pt reports on 11/30/15 that he received them & he brought them today. As of today, 11/30/15, will ask NETWORK LEAD to order dressings (Mepilex 3x3 border dressing for (R)LE wound & Mepilex 4x4 border dressing for (L)LE wound) via TWS. Treatment to include: Compression wraps (Unna's boot with Coban wrap) Wound cleansing Selective sharps debridement of non-viable tissue Application of wound dressings Self-care/home management Other Recommendations: Pt will require lifelong use of 30-40 mmHg compression stockings for CVI. The plan has been discussed with the patient and they have agreed with the planned treatment. Total Treatment time: 13 minutes Total Timed Code Treatment: 0 minutes Visit start time: 955 End time: 1008 SANJIV EMANUEL PT, CWS documented in this encounter Plan of Treatment Not on file documented as of this encounter Visit Diagnoses Diagnosis Venous stasis ulcer of left lower extremity documented in this encounter Care Teams Market Research Worker Relationship Specialty Start Date End Date Cherise Staples MD [address] [place] [id number] PCP - General 07/31/10 10/04/19 documented as of this encounter
--- OUTSIDE RECORDS SUMMARY | 2024-08-20 06:23 | XMS_ITS | Encounter Summary ---
Author Organization Formerly [facility] [place] [address] Care Team Providers Care S3B Multi Sensor Operator Name Role Phone Cherise Staples MD Primary Care Provider [phone] Encounter Details Date Type Department Care Team (Late st Contact Info) Description 10/12/2015 Orders [place] [address] Dorothea Cantor APRN [facility] [place] [address] Venous stasis ulcer of left lower extremity [...] documented as of this encounter Results * KELLI, legs, multiple levels (10/17/2015 12:49 PM EST) VB Text Report Department: Vascular Surgery Lab Patient: [id number] (LAZARO CROUCH) CPT: 45561 ICD10: L97.229;I83.029 Referring Physician: VERN FONTANEZ ?? [...] extremity documented in this encounter Care Teams S3B Multi Sensor Operator Relationship Specialty Start Date End Date Cherise Staples MD [address] [place] [id number] PCP - General 07/31/10 10/04/19 documented as of this encounter
--- OUTSIDE RECORDS SUMMARY | 2024-08-20 06:23 | XMS_ITS | Encounter Summary ---
Author Organization [facility] [place] [address] Care Team Providers Care Superintendent Communications Name Role Phone Cherise Staples MD Primary Care Provider [phone] Reason for Visit * Reason Comments Dressing Change LLE wounds Encounter Details Date Type Department Care Team (Late st Contact Info) Description 10/17/2015 2:00 PM EST Office [place] [id number] Dorothea Morse APRN [facility] [place] [address] Suspected cholecystitis vs cholangitis Social History Tobacco Use Types Packs/Day Years [...] Sign Reading Time Taken Comments Blood Pressure 137/83 10/17/2015 2:17 PM EST Pulse 91 10/17/2015 2:17 PM EST Temperature 36.6 ??C (97.9 ??F) 10/17/2015 2 :17 PM EST Respiratory Rate 20 10/17/2015 2:17 PM EST Oxygen Saturation 96% 10/17/2015 2:1 7 PM EST Inhaled Oxygen Concentration - - Weight 176.9 kg (390 lb) 10/17/2015 2:1 7 PM EST pt declined weight in office stating this was his wt this am Height - - Body Mass Index 55.96 08/30/2015 1:13 PM EST documented in this encounter Patient Instructions * Patient Instructions* Dorothea Morse, TERRAZZO LAYER - 10/17/2015 3:09 PM EST I have ordered triamcinolone cream from your pharmacy. Will have [place] visit on Friday and once weekly. Call anytime: [phone] VNA Orders: Please admit on Friday and order profore wraps,mepilex foam Profore Wraps 1. Wash legs and wounds with dermal wound cleasner. 2. Place melgisorb Ag over broken areas, covered with mepilex foam-extending dressing onto intact periwound skin by approximately 1 cm. 3. Apply triamcinolone cream to intact skin. 4. Profore #1: Wrap the foot in a spiral fashion starting at the base of the toes and contining in a sprial manner up the legs to the knee with a 50% overlap. 5. Profore #2: Again wrap the foot in a spiral fashion starting at the base of the toes and continuing over the heel and up the leg to just below the knee overlapping with a 50% overlap. 6. Profore #3: Apply this bandage from the base of the toes to just below the knee making sure to enclose the heel in a figure of 8 fashion with a 50% stretch and a 50% overlap. 7. Profore #4: Apply the wrap starting at just above the toes working in a circular fashion to justbelow the knee with a 50% overlap and a 50% stretch, making sure to enclose the heel. Patient is homebound, due to open, draining leg ulcers, at risk for infection. Needs assistance with navigating community surfaces. Elevating your legs above your heart level for 30 minutes three or four times per day can reduce swelling and improve blood flow in the veins which can speed healing of venous ulcers. However, it maynot be practical for some people to elevate their legs several times per day. If possible: ?? Elevate legs 3-4 times a day for at least 30 minutes to one hour ?? For mild discomfort, sit and elevate legs for 30 minutes to one hour, consider taking Tylenol toassist with mild discomfort ?? If you experience any numbness, tingling, pain/discomfort that is not relieved with elevation and over the counter pain medication, call the Wound Clinic ?? If swelling is not relieved with elevation or if pain is severe remove wraps by cutting them from below the knee in from, down to the foot with plunt-ended scissors and contact the Wound Clinic. ?? If over the weekend and pain is not relieved after removal of wraps, contact PCP ?? Do not get wraps wet- a cast bag or other plastic bag can be placed over the compression bandageto keep it dry while showering. If the compression bandages get wet, contact [facility] to have them changed. ?? If you experience any shortness of breath, worsening swelling of thighs, change in urination, please contact the Wound Clinic. Exercises -- Foot and ankle exercises are often recommended to reduce symptoms. Pointing the feet down and up (movement from the ankle) several times throughout the day can help to move blood from the legs and back to the heart. This may be especially helpful for people who sit or stand for long periods of time. Walking is a good exercise for the calf muscle pump. People with chronic venous disease who walk less than 10 minutes a day have a greater risk for developing venous ulcers than those who are more physically active. documented in this encounter Progress Notes * Dorothea Morse APRN - 10/17/2015 2:24 PM EST Images from the original note were not included. [facility] Initial Consultation Note HPI: Jaime Crouch is a 70 y.o. male who is referred by Dr. Nick Nettles for evaluation of left legvenous ulcer. The wound has been present since 10/09/15. He has been treated with modified unnas boot. Reports pain, being managed with oxycodone. Treated at [facility]. He had ulcer in the right leg, many years ago, which healed while he was admitted for 2 weeks with another medical issue. He has compression stockings but is unableto don them. His job requires extended sitting. He is morbidly obese and unable to walk very far. He is not a diabetic or a smoker. VNA: none Patient Active Problem List Diagnosis Code ??? [...] ulcer of left lower extremity I83.029 History Social History ??? Marital Status: Spouse Name: N/A Number of Children: N/A ??? Years of Education: N/A Social History Main Topics ??? Smoking status: Former Smoker ??? Smokeless tobacco: Never Used ??? Alcohol Use: Yes Comment: varies on kind, drinks maybe once a week\ ??? Drug Use: No ??? Sexual Activity: Not Currently Other Topics Concern ??? 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 Imaging: none Pertinent labs: none Review Of Systems: Denies constitutional symptoms of fever, chills, sweats. Diet: appetite good, denies n,v, change in bowels Wound care: reports increasing green drainage with recent unnas boots Leg fatigue, calf cramping, skin itching: endorses severe itching Pain: denies at present PE: Estimated body mass index is 55.96 kg/(m^2) as calculated from the following: Height as of 08/30/15: 177.8 cm (5' 10). Weight as of this encounter: 176.903 kg (390 lb). General: pleasant, morbidly obese male, in NAD. Accompanied by his . Mobility: independent Edema: bilat LE, left >right DP, PT pulse: ++ Varicosities: none Hemosiderin staining: bilat lower extremities Stasis dermatitis: mild Callus: none Periwound: intact Wound bed: as below Exudate: moderate, serosang Odor: none Right Calf: 48.5 cm Right Ankle: 29.5 cm Left Calf: 51.0 cm Left Ankle: 31.4 cm Wound location Wound bed Measurement Right anterior lower leg Dry eschar 0.5 cm x 0.5 cm Left anterior/lateral/posterior Bleeding tissue, adherent slough 6.0 cm x 15.0 cm x <0.2 cm Undermining/tunneling: none Left lateral posterior Left anterior Right anterior Wound treatment: Cleansed wound with NS. Analgesia: 2% lidocaine gel Conservative sharp debridement of necrotic, devitalized tissue on wound bed with curette Bleeding controlled with normal saline irrigation Patient tolerated treatment well. Dressing: Profore Wraps applied to bilateral LE 1. Legs and wounds were cleansed with normal saline 2. melgisorb Ag was applied to the wounds, covered with mepilex foam ,extending dressing onto intact periwound skin by approximately 1 cm. 3. Triamcinolone cream was applied to intact skin. 4. Profore #1: Was applied by wrapping [...] stretch, making sure to enclose the heel. 8. Discussed with patient care instructions of wraps, patient verbalized understanding. Assessment/ Plan: Jaime Crouch is a 70 y.o. male with venous stasis ulcers. We have discussed continuing compression to control the edema, managing the exudate and transitioning to [facility] garments or wraps to prevent future ulcerations. We will engage the VNA to assist with dressing changes. We have provided verbal and written wound care instructions. He will call with any questions or concerns. Follow up: weekly Patient Instructions: I have ordered triamcinolone cream from your pharmacy. Will have [place] visit on Friday and once weekly. Call anytime: [phone] VNA Orders: Please admit on Friday and order profore wraps,mepilex foam Profore Wraps 9. Wash legs and wounds with dermal wound cleasner. 10. Place melgisorb Ag over broken areas, covered with mepilex foam-extending dressing onto intact periwound skin by approximately 1 cm. 11. Apply triamcinolone cream to intact skin. 12. Profore #1: Wrap the foot in a spiral fashion starting at the base of the toes and contining flaquita sprial manner up the legs to the knee with a 50% overlap. 13. Profore #2: Again wrap the foot in a spiral fashion starting at the base of the toes and continuing over the heel and up the leg to just below the knee overlapping with a 50% overlap. 14. Profore #3: Apply this bandage from the base of the toes to just below the knee making sure to enclose the heel in a figure of 8 fashion with a 50% stretch and a 50% overlap. 15. Profore #4: Apply the wrap starting at just above the toes working in a circular fashion to just below the knee with a 50% overlap and a 50% stretch, making sure to enclose the heel. Patient is homebound, due to open, draining leg ulcers, at risk for infection. Needs assistance with navigating community surfaces. Elevating your legs above your heart level for 30 minutes three or four times per day can reduce swelling and improve blood flow in the veins which can speed healing of venous ulcers. However, it maynot be practical for some people to elevate their legs several times per day. If possible: ?? Elevate legs 3-4 times a day for at least 30 minutes to one hour ?? For mild discomfort, sit and elevate legs for 30 minutes to one hour, consider taking Tylenol toassist with mild discomfort ?? If you experience any numbness, tingling, pain/discomfort that is not relieved with elevation and over the counter pain medication, call the Wound Clinic ?? If swelling is not relieved with elevation or if pain is severe remove wraps by cutting them from below the knee in from, down to the foot with plunt-ended scissors and contact the Wound Clinic. ?? If over the weekend and pain is not relieved after removal of wraps, contact PCP ?? Do not get wraps wet- a cast bag or other plastic bag can be placed over the compression bandageto keep it dry while showering. If the compression bandages get wet, contact the [facility] to have them changed. ?? If you experience any shortness of breath, worsening swelling of thighs, change in urination, please contact the Wound Clinic. Exercises -- Foot and ankle exercises are often recommended to reduce symptoms. Pointing the feet down and up (movement from the ankle) several times throughout the day can help to move blood from the legs and back to the heart. This may be especially helpful for people who sit or stand for long periods of time. Walking is a good exercise for the calf muscle pump. People with chronic venous disease who walk less than 10 minutes a day have a greater risk for developing venous ulcers than those who are more physically active. Cc: Nick Nettles MD [address] [place] [id number] PCP: CHERISE STAPLES MD documented in this encounter Miscellaneous Notes * Addendum Note - Dorothea Morse APRN - 10/18/2015 11:10 AM ESTAddended by: DOROTHEA MORSE on: 10/18/2015 11:10 AM Modules accepted: Orders * Addendum Note - Dorothea Morse APRN - 10/18/2015 10:31 AM ESTAddended by: DOROTHEA MORSE on: 10/18/2015 10:31 AM Modules accepted: Orders documented in this encounter Plan of Treatment Not on file documented as of this encounter Visit Diagnoses Diagnosis Suspected cholecystitis vs cholangitis Cholecystitis, unspecified documented in this encounter Care Teams Superintendent Communications Relationship Specialty Start Date End Date Cherise Staples MD [address] [place] [address] PCP - General 07/31/10 10/04/19 documented as of this encounter
--- OUTSIDE RECORDS SUMMARY | 2024-08-20 06:23 | XMS_ITS | Encounter Summary ---
[place] [address] Care Team Providers Care Water Pollution Specialist Name Role Phone Cherise Staples MD Primary Care Provider Encounter Details Date Type Department Care Team (Late st Contact Info) Description 10/18/2015 [place] [address] Lili Elizalde LPN Social History Tobacco Use Types Packs/Day Years [...] on filedocumented in this encounter Care Teams Water Pollution Specialist Relationship Specialty Start Date End Date Cherise Staples MD [address] [place] [address] PCP - General 07/31/10 10/04/19 documented as of this encounter
--- OUTSIDE RECORDS SUMMARY | 2024-08-20 06:23 | XMS_ITS | Encounter Summary ---
[place] [address] Care Team Providers Care Home Manager Name Role Phone Cherise Staples MD Primary Care Provider [phone] Reason for Visit * Reason Comments Wound Care both legs Encounter Details Date Type Department Care Team (Late st Contact Info) Description 11/06/2015 10:00 AM EST Office [place] [id number] Sanjiv Emanuel Venous stasis ulcer of left [...] Sign Reading Time Taken Comments Blood Pressure 150/85 11/06/2015 10:01 AM EST Pulse 76 11/06/2015 10:01 AM EST Temperature 36.5 ??C (97.7 ??F) 11/06/2015 10:[address] Respiratory Rate - - Oxygen Saturation 97% 11/06/2015 10:01 AM EST Inhaled Oxygen Concentration - - Weight - - Height - - Body Mass Index - - documented in this encounter Progress Notes * Sanjiv Emanuel, PT - 11/06/2015 10:01 AM EST Images from the original note [...] pain, being managed with oxycodone. Treated at [facility]. He had ulcer in the [...] Limitations: ambulates (I) with cane SUBJECTIVE: ???I didn't get any stockings in the mail.?? OBJECTIVE: Pt seen for treatment of (B)LE edema & (L)LE wounds. Pt presents alone today. MEASUREMENTS (cm) RIGHT today RIGHT 11/02/15 RIGHT on 10/30/15 LEFT today LEFT 11/02/15 LEFT on 10/30/15 Calf girth 46.3 47.5 47.5 47.8 47.0 48.2 Ankle girth 27.2 27.0 27.5 28.6 28.3 29.2 Knee to heel length NE NE 48.0 NE NE 47.0 Wound pain: 09/17 Dressing removed: Profore wraps (B)LEs, Mepilex Lite dressing (L)LE Drainage: minimal to moderate serosanguinous drainage Odor: none Wound #1 Location: Left distal, anterior, slightly lateral lower leg Periwound: dry, scaly skin Wound bed: NOW HEALED Measurements: N/A Tunnelling: none Undermining: None There was a previously noted wound more lateral, posterior to above wound, which is NEARLY HEALED, measuring 0.6 cm x 0.7 cm. PHOTO-- Left lateral LE: Left lateral, posterior LE: Wound #2 Location: Left proximal posterior lower leg Periwound: intact Wound bed: NOW HEALED Measurements: N/A Tunnelling: none Undermining: none Wound #3 Location: Left mid posterior lower leg, distal to wound #2 Periwound: intact Wound bed: 100% moist red tissue Measurements: not measured today Tunnelling: none Undermining: none NEW: pt was previously noted to have 2 small (~0.4 cm x 1.0 cm) intact fluid filled blisters on (L)posterior mid lower leg along a wrinkle from wrap sliding down. As of today, one is healed & the other is now open & measures 0.4 cm x 0.8 cm. PHOTO-- Left medial, posterior LE: Treatment Analgesia Provided: none Conservative Sharp Debridement: removing devitalized tissue: none Dry, scaly skin removed (L)LE with forceps Bleeding: small amount, resolved w/NS rinse Wounds cleansed with NS Legs cleansed with body soap and water, (L)LE also cleansed with Hibiclens, then rinsed and patted dry Pain Reassessment (0-10): 0/10 Dressings/Wraps applied:? Double layer Tubigrip size E applied to (R)LE Unna's Boot applied to Left LE 1. Mepilex Lite dressings were applied to the wound bed. 2. Wrapped with Gelocast Impregnated Gel starting at just above the toes and working in a circular fashion with a 50% overlap to just below the knees. 3. Wrapped with Coban starting at just above the toes and working in a circular fashion with a 50% overlap and a 50% stretch to just below the knees 4. Discussed with patient care instructions of wraps, patient verbalized understanding. Self-care/home management: Discussed with patient care instructions of (L)LE wraps, (R) Tubigrips & patient verbalized understanding Perceived barriers to wound healing: CVI Patient Goals: full healing Further Objective Information: pt transfers (I), ambulates with cane (I) ASSESSMENT: These findings are consistent with (L)LE wounds & (B)LE wounds R/T venous insufficiency. Pt's wounds have continued to demonstrate ongoing significant signs of healing; the largest wound(s) on Left lateral LE are now healed. We have transitioned pt into double layer Tubigrips on (R)LE & we are trying Unna's boot with Coban wrap to his (L)LE in hopes that it will stay in place (not slide down) & not create wrinkles in wrap & in skin. Pt should benefit from skilled PT interventionfor wound care, to work towards outlined goals. Physical therapy is indicated to: Decrease edema Promote wound healing Offload pressure Relieve pressure Debride non-viable tissue Goals: exterminator goals (11/28/15) 1. (L)LE Wounds healed 2. Pt fitted with and instructed in use of compression stockings/garments to prevent future skin breakdown Medicare Therapy G-Code Date Tracking: (Update G-Code status every 10 visits or when code changes) 1 2 3 4 5 6 7 8 9 10 10/30/15 11/02/15 11/06/15 Physical therapy plan: 1-2 x per week x 2-4 weeks, tapering as indicated. Pt to be seen in conjunction with RN, MOBILE SALES TECHNICIAN, [facility] in [facility]. Pt to look up donning devices for stockings online. DME: will ask ENGINEERING DRAFTER to order Caralon Graduated Compression Multi-layer stocking system 30-40 mmHg, color Black, size E Regular via [facility]. This was not done @ last visit, therefore will ask ENGINEERING DRAFTER to place order today. Pt to bring to his next appointment. Treatment to include: Compression wraps (Profore wraps) Wound cleansing Selective sharps debridement of non-viable tissue Application of wound dressings Self-care/home management Other Recommendations: Pt will require lifelong use of 30-40 mmHg compression stockings for CVI. The plan has been discussed with the patient and they have agreed with the planned treatment. Total Treatment time: 30 minutes Total Timed Code Treatment: 0 minutes Visit start time: 1016 End time: 1048 SANJIV EMANUEL PT, CWS documented in this encounter Plan of Treatment Not on file documented as of this encounter Visit Diagnoses Diagnosis Venous stasis ulcer of left lower extremity documented in this encounter Care Teams Home Manager Relationship Specialty Start Date End Date Cherise Staples MD [address] [place] [address] PCP - General 07/31/10 10/04/19 documented as of this encounter
--- OUTSIDE RECORDS SUMMARY | 2024-08-20 06:23 | XMS_ITS | Encounter Summary ---
[place] [address] Care Team Providers Care Network Associate Name Role Phone Cherise Staples MD Primary Care Provider [phone] Encounter Details Date Type Department Care Team (Late st Contact Info) Description 11/27/2015 9:30 AM EDT Office Visit [place] [address] Sanjiv Emanuel Venous stasis ulcer of left [...] Sign Reading Time Taken Comments Blood Pressure 154/84 11/27/2015 9:23 AM EDT Pulse 76 11/27/2015 9:23 AM EDT Temperature 36.7 ??C (98 ??F) 11/27/2015 9:23 AM EDT Respiratory Rate 22 11/27/2015 9:23 AM EDT Oxygen Saturation 97% 11/27/2015 9:23 AM EDT Inhaled Oxygen Concentration - - Weight - - Height - - Body Mass Index - - documented in this encounter Progress Notes * Sanjiv Emanuel, PT - 11/27/2015 9:23 AM EDT [facility] Progress [...] pain, being managed with oxycodone. Treated at [facility]. He had ulcer in the right leg, many years ago, which healed while he was admitted for 2 weeks with another medical issue. He has compression stockings but is unableto don them. His job requires extended sitting. He is morbidly obese and unable to walk very far. He is not a diabetic or a smoker. VNA:?? none SUBJECTIVE: ???So, I may be able to go back in my stockings (on (L)LE) on ??? OBJECTIVE: Pt seen for treatment of (B)LE edema & (L)LE wounds. Pt presents alone today. MEASUREMENTS (cm) RIGHT today RIGHT 11/23/15 RIGHT 11/16/15 RIGHT 11/09/15 RIGHT 11/06/15 RIGHT 11/02/15 LEFT today LEFT 11/23/15 LEFT 11/16/15 LEFT 11/09/15 LEFT 11/06/15 LEFT 11/02/15 Calf girth 49.6 45.5 46.0 45.6 46.3 47.5 46.4 45.5 47.8 47.5 47.8 47.0 Ankle girth 26.7 27.0 28.0 29.0 27.2 27.0 29.5 30.0 29.6 29.2 28.6 28.3 Knee to heel length NE NE NE NE NE NE NE NE NE NE NE NE Wound pain: 09/17 Dressing removed: Unna's boot with Coban wrap & Mepilex 6x6 border dressing (L)LE; dual layer compression stockings (R)LE (which had slid down ~6 inches) Drainage: moderate serosanguinous drainage Odor: none ALL NEW: Wound #1 Location: Left distal, anterior lower leg Periwound: dry, scaly skin Wound bed: NEWLY EPITHELIALIZED Measurements: N/A Tunnelling: none Undermining: None. Wound #2 Location: Left anterior, lateral lower leg, lateral to wound #1 Periwound: intact Wound bed: 100% red granulation tissue with epithelial tissue coming in from edges & multiple islands within wound bed, post-debridement Measurements: not measured today Tunnelling: none Undermining: none Wound #3 Location: Left lateral LE, lateral to wound #2 Periwound: intact Wound bed: HEALED Measurements: N/A Tunnelling: none Undermining: none Wound #4 Location: Left lateral LE, distal to wound #3 Periwound: intact Wound bed: 100% moist red tissue with large epithelial island in center Measurements: not measured today Tunnelling: none Undermining: none Treatment Analgesia Provided: none, pt declined need for Conservative Sharp Debridement: none Dry, scaly skin removed with forceps (L)LE Triamcinolone (0.1%) cream applied to Dry, scaly skin (L)LE Bleeding: none Wounds cleansed with NS Pain Reassessment (0-10): 0/10 Caralon dual layer compression stockings applied to (R)LE Dressings/wraps applied: Mepilex AG 4x4 border dressing applied to (L) anterior LE wounds R/T excoriation Unna's Boot applied to Left LE Mepilex [...] (I) ASSESSMENT: Pt has been followed in PSYCHIATRIC for recurrent (L)LE wounds & (B)LE wounds R/T venous insufficiency. His wounds are demonstrating rapid healing with significant reduction in size, with evidence of granulation & epithelial tissue; 2 of 4 wounds is now healed. Will continue compression wraps (Unna's boot with Coban wraps) to (L)LE to promote wound healing. Pt should benefit from skilled PT intervention for wound care, to work towards outlined goals. Physical therapy is indicated to: Decrease edema Promote wound healing Offload pressure Relieve pressure Debride non-viable tissue Goals: USP goals (11/28/15) 1. (L)LE Wounds healed--MET as of 11/09/15 2. Pt fitted with and instructed in use of compression stockings/garments to prevent future skin breakdown--MET as of 11/09/15 Medicare Therapy G-Code Date Tracking: (Update G-Code status every 10 visits or when code changes) 1 2 3 4 5 6 7 8 9 10 10/30/15 11/02/15 11/06/15 11/09/15 11/16/15 11/23/15 11/27/15 Physical therapy plan: 1-2 x per week x 2-4 weeks, tapering as indicated. Pt to be seen in conjunction with RN, BACK ORDER CLERK, CWCN in PSYCHIATRIC. Will continue 2x/wk visits in PSYCHIATRIC. Pt to bring compression stockings for (L)LE to subsequent appointments. Pt has ordered donning device for stockings online. DME: as of 11/23/15, asked [employer] to order another pair of Caralon Graduated Compression Multi-layer stocking system 30-40 mmHg, color Black, size E Regular via TWS for pt. Treatment to include: Compression wraps (Unna's boot with Coban wrap) Wound cleansing Selective sharps debridement of non-viable tissue Application of wound dressings Self-care/home management Other Recommendations: Pt will require lifelong use of 30-40 mmHg compression stockings for CVI. The plan has been discussed with the patient and they have agreed with the planned treatment. Total Treatment time: 14 minutes Total Timed Code Treatment: 0 minutes Visit start time: 935 End time: 949 SANJIV EMANUEL PT, CWS documented in this encounter Plan of Treatment Not on file documented as of this encounter Visit Diagnoses Diagnosis Venous stasis ulcer of left lower extremity documented in this encounter Care Teams Network Associate Relationship Specialty Start Date End Date Cherise Staples MD [address] [place] [id number] PCP - General 07/31/10 10/04/19 documented as of this encounter
--- OUTSIDE RECORDS SUMMARY | 2024-08-20 06:24 | XMS_ITS | Encounter Summary ---
Author Organization [facility] [place] [address] Care Team Providers Care Metal And Plastic Heater Name Role Phone Cherise Staples MD Primary Care Provider [phone] Reason for Visit * Auth/Cert - Closed Specialty Diagnoses / Procedures Referred By Carla soto Referred To Contact Diagnoses Cholecystitis Pain Atrial fibrillation, unspecified cholangoangitis Procedures ERCP Referral ID Status Reason Start Date Expiration Date Visits Re quested Visits Authorized [id number] Closed 1 1 Encounter Details Date Type Department Care Team (Late st Contact Info) Description 09/01/2015 8:33 AM EST Anesthesia Event [place] [address] Howard Harrington MD [facility] [address] [place] [address] Yossi Puga MD [facility] [place] [address] Anesthesia Record Procedure Summary Procedure Name Responsible Anesthesiologist Anesthesia Start Time Anesthesia Stop Time LAPAROSCOPIC CHOLECYSTECTOMY (WRVU 10.47) (Abdomen) Howard Harrington MD 09/01/15 0833 09/01/15 1246 Events Date Time Event Comment 09/01/2015 0833 AN Verify 0833 Start 0834 An Start Data 0840 An Induction 0842 An Intubation 0856 Anesthesia Ready 0903 ABG Data Arterial Blood Gas result: pH 7.36 pCO2 52 pO2 74 FiO2 50% %O2 Sat 98% HCO3 39 BE 3.2 Hb 13.6 Glucose 116 K 3.8 1042 ABG Data Arterial Blood Gas result: pH 7.4 pCO2 45 (EtCO2 43) pO2 164 FiO2 60% %O2 Sat 100% HCO3 27 BE 2.6 Hb 14.4 Glucose 153 K 4.2 1130 1147 Quick Note Taken out of re verse trendelenburg 1209 ABG Data Arterial Blood Gas result: pH 7.33 pCO2 53 pO2 272 FiO2 100% %O2 Sat 100% HCO3 27 BE 1.5 Hb 14.9 Glucose 171 K 4.3 1227 Extubation/LMA Out 1232 an stop data 1245 Recovery or ICU Handoff Cecelia ent care was transferred to the destination unit staff after review of the patient's medical history, current anesthetic/surgical status and plan, according to the Provider Handoff Checklist. 1246 Stop Meds Name Total Midazolam 2 mg fentaNYL 300 mcg Propofol 200 mg Rocuronium 80 mg PHENYLephrine 960 mcg Ondansetron 4 mg Dexamethasone 8 mg Neostigmine 5 mg Glycopyrrolate 0.2 mg Esmolol 140 mg meTOPROLOL 10 mg Furosemide 10 mg Lactated Ringers 750 mL Lactated Ringers 200 mL * Agents Name O2 Air Sevoflurane (et) Desflurane (et) * Blood No blood administrations on file. Lines, Drains, and Airways Type Details Placement Removal Wound 09/11/14; leg; ulceration, venous; existed prior to admission; LDA not present upon assessment; 11/02/20; 0944 09/11/14 0000 by Zaira Bates RN 11/02/20 0944 by April Tarango, RN (RETIRED) Peripheral IV Line - Single Lumen 08/30/15; 1715; metacarpal vein right (top of hand); [id number] catheter system; 16 gauge; Franky; Per order; 09/02/15; 1316 08/30/15 1715 by Solomon Wilkins MD 09/02/15 1316 by Hira Mandujano, RN Urethral Catheter 08/30/15; 1725; Physician order; Physician order; indwelling double lumen catheter; 100% silicone; 14; inserted at this facility; 1; 5; 10; (Under general anesthesia); drainage bag to dependent drainage; 09/02/15; 1032 08/30/15 1725 by Viviana Laurent RN 09/02/15 1032 by Sourav Tucker RN Incision 09/01/15; abdomen; laparoscopic punctures (specify), transverse; LDA not present upon assessment; 11/02/20; 0945 09/01/15 0000 by Terri Jenkins RN 11/02/20 0945 by April Tarango RN (RETIRED) Peripheral IV Line - Single Lumen 09/01/15; 0834; metacarpal vein left (top of hand); 16 gauge; difficulty flushing ; 09/02/15; 1118 09/01/15 0834 by Williams Shelton MD 09/02/15 1118 by Hira Mandujano RN Arterial Line 09/01/15; 0834; radi al artery; 20 gauge; Williams; Sterile Prep, Sterile Gloves; no longer indicated, removed per policy; 09/01/15; 204009/01/15 0834 by Williams Shelton MD 09/01/152040 by Florinda Peralta, JACOB ETT Mask Ventilation: No t Attempted (0); ETT Type: Cuffed, Oral; Indirect: Video; Notes: Asleep, Pre-O2, Stylette; Attempts: 1; Laryngoscopy Grade: 1; ETT Placement Verified By: Auscultation, Capnometry; Secured at Teeth: 23 cm; Inserted by: Williams; Removal Date: 09/01/15; Removal Time: 1227 09/01/15 0842 by Williams Shelton MD 09/01/15 1227 by Yossi Puga MD documented in this encounter Social History Tobacco [...] OR Notes * Anesthesia Postprocedure Evaluation - Yossi Puga MD - 09/01/2015 2:10 PM EST [facility] [place] Department of Anesthesiology Post-procedure Note Patient: Jaime Crouch Procedure Summary Date Anesthesia Start Anesthesia Stop Room / Location 09/01/15 0834 1246 [facility] OR 26 / [facility] OR Procedure Diagnosis Surgeon Responsible Provider LAPAROSCOPIC CHOLECYSTECTOMY (N/A Abdomen) No diagnosis on file. Esha Moon MD Burchman, Corey A, MD (acute cholangitis) Last (1hr) Vitals: BP (!) 156/102 mmHg (09/01/15 1400) Temp 36.7 ??C (98.1 ??F) (09/01/15 1400) Pulse 117 (09/01/15 1400) Resp 21 (09/01/15 1400) SpO2 95 % (09/01/15 1400) Patient Location: PACU/[facility] Level of Consciousness: Awake and Alert Pain Management: Satisfactory Analgesia PONV: None Cardiovascular Status: At Baseline Respiratory Status: BIPAP Postoperative Fluid Status: Intravascular HYPERvolemia Possible Anesthetic Complications: NONE apparent at time of evaluation Final Primary Anesthesia Type: General (The anesthetic type performed was the same as planned.) Comments: Work of breathing improved after 40 mg of furosemide IV in PACU * Anesthesia Preprocedure Evaluation - Youjuan pabloWilliams hanley - 09/01/2015 6:17 AM EST Pre-Anesthesia Evaluation for: Jaime Crouch a 69 y.o. male. Procedure(s): LAPAROSCOPIC CHOLECYSTECTOMY WITH CHOLANGIOGRAM Patient Active Problem List Diagnosis ??? Cholangitis ??? Morbid obesity ??? Hypertension (HTN) ??? CAD ??? Nonsustained ventricular tachycardia ??? Hypertension ??? Suspected cholecystitis vs cholangitis S/p sphincerotomy - consider elective choly as outpatient ??? Atrial fibrillation S/p Vit K at [facility] - INR sub therapeutic - on lovenox bridge until INR 2-3 ??? TOM on CPAP ??? Phimosis ??? Nephrolithiasis Past Medical History Diagnosis Date ??? Kidney stone ??? Hypertension ??? ASCVD (arteriosclerotic cardiovascular disease) 1993 first [place] 1992, stent to LAD in 2006 ??? Atrial fibrillation chronic anticoagulation ??? Nephrolithiasis hx of nephrostomy tube and posterior approach removal ??? HLD (hyperlipidemia) ??? Chronic venous insufficiency ??? TOM on CPAP ??? DVT (deep venous thrombosis) ??? PE (pulmonary embolism) Past Surgical History Procedure Laterality Date ??? Lithotripsy ??? Total hip arthroplasty Bilateral ??? Cystoscopy for BPH ??? Coronary angioplasty with stent placement 2006 LAD ??? Kidney stone surgery Left removal of stones: nephrolithotomy ??? Pro ercp,diagnostic N/A 09/09/2014 ERCP performed by Nick Broussard MD at [facility] ENDOSCOPY ??? Pro ercp,diagnostic N/A 08/30/2015 ERCP performed by Nick Broussard MD at [facility] MA[facility] OR History Substance Use Topics ??? Smoking status: Former Smoker ??? Smokeless tobacco: Never Used ??? Alcohol Use: Yes Comment: varies on kind, drinks maybe once a week\ History Drug Use No No Known Allergies Medications: MAR and/or home medications have been reviewed. Physical Exam: Filed Vitals: 09/01/15 0330 BP: 144/97 Pulse: 85 Temp: 36.5 ??C (97.7 ??F) Resp: 24 Body mass index is 54.6 kg/(m^2). Height: 177.8 cm (5' 10) Weight - Scale: (!) 172.6 kg (380 lb 8.2 oz) Airway Assessment: Mallampati: III TM distance: >3 FB Neck ROM: full Cardiovascular Assessment: cardiovascular exam normal Pulmonary Assessment: (+) wheezes PE comment: End expiratory wheezes noted anteriorly. Dental Assessment: - normal exam Misc Assessment: Patient is wearing No contact(s). IV access: Peripheral line Other exam findings: Short, wide neck circumference. Light stuart. Anesthesia Plan: ASA 3 General, with a(n) intravenous induction Jaime Crouch is a 69 y.o. male presenting for laparoscopic cholecystectomy, possible open procedure. The patient's past medical history, past surgical history, medications, and allergies were reviewedand notable for current UTI, pulm HTN, ASCVD s/p stent to LAD 2006 and [place] ~1992 EF in 08/2015 60%, h/o PE and Afib 2/2 RA dilation on warfarin, hx of nonsustained VTach, HTN, TOM on CPAP, and glucoseintolerance. Patient's documented history was NEGATIVE for seizures, CVA, and renal disease. There is no evidence of any recent URI symptoms, fevers/chills, or other signs of infection. Labs were reviewed and notable for WBC 9.1, Hgb 13.3, INR 1.6, liver enzymes elevated but improvingsteadily Type and Screen: Lab Results Component Value Date ABORH O Pos 08/30/2015 Allergies: No Known Allergies NPO Status: Appropriate Anesthetic History: Tolerated ERCP with GETA on 08/30/2015 without issue, however remained intubated for several days following ERCP last year due to respiratory status. Challenging mask ventilation with OPA, Gr 1 view with CMAC Anesthetic Plan: preop duoneb treatment GA with ETT Arterial line monitoring in addition to standard ASA monitoring Adequate IV access The patient was informed of the risks, benefits and alternatives of anesthesia. These risks included, but were not limited to, post-operative nausea and/or vomiting, pain, sore throat, dental/lip trauma, and other rare but serious complications such as major organ damage, awareness, severe allergicreactions, position-related nerve injuries, and need blood transfusions. All questions were sought and answered. Consent was signed and placed in chart. Williams Shelton MD PhD 09/01/2015 Region - Other Informed Consent: Anesthetic plan and risks discussed with patient. Use of blood products discussed with patient whom consented to blood products. Plan discussed with attending. PAT Staff Note documented in this encounter Miscellaneous Notes * Addendum Note - Williams Shelton - 09/04/2015 1:08 PM EST Addendum created 09/04/15 4421 by Williams Shelton MD Modules edited: Anesthesia Medication Administration documented in this encounter Plan of Treatment Not on file documented as of this encounter Visit Diagnoses Not on filedocumented in this encounter Administered Medications Inactive Administered Medications - up to 3 most recent administrations Medication Order MAR Action Action Date Dose Rate Site dexamethasone (DECADRON) injection PRN, Starting on Fri09/01/15 at 0924, Until Fri09/01/15 at 1252, Anesthesia Intra-op, Routine Given 09/01/2015 9:24 AM EST 8 mg esmolol (BREVIBLOC) injection PRN, Starting on Fri09/01/15 at 0859, Until Fri09/01/15 at 1252, Anesthesia Intra-op, Routine Given 09/01/2015 11:30 AM EST 50 mg Given 09/01/2015 9:34 AM EST 40 mg Given 09/01/2015 9:20 AM EST 20 mg fentaNYL 50 mcg/mL multi-dose injection PRN, Starting on Fri09/01/15 at 0840, Until Fri09/01/15 at 1252, Pain, Anesthesia Intra-op, Routine Given 09/01/2015 12:12 PM EST 100 mcg Given 09/01/2015 9:24 AM EST 100 mcg Given 09/01/2015 8:40 AM EST 100 mcg furosemide (LASIX) injection PRN, Starting on Fri08/30/15 at 1740, Until Fri09/04/15 at 0801, Anesthesia Intra-op, Routine Given 09/01/2015 11:59 AM EST 10 mg Given 08/30/2015 5:40 PM EST 20 mg glycopyrrolate (ROBINUL) multi-dose injection PRN, Starting on Fri09/01/15 at 1212, Until Fri09/01/15 at 1252, Anesthesia Intra-op, Routine Given 09/01/2015 12:12 PM EST 0.2 mg lactated ringers infusion CONTINUOUS PRN, Starting on Fri09/01/15 at 0834, Until Fri09/01/15 at 1252, Anesthesia Intra-op New Bag 09/01/2015 8:34 AM EST lactated ringers infusion CONTINUOUS PRN, Starting on Fri09/01/15 at 0850, Until Fri09/01/15 at 1252, Anesthesia Intra-op New Bag 09/01/2015 8:50 AM EST meTOPROLOL (LOPRESSOR) injection PRN, Starting on Fri09/01/15 at 0930, Until Fri09/01/15 at 1252, High Blood Pressure, Anesthesia Intra-op, Routine Given 09/01/2015 10:57 AM EST 5 mg Given 09/01/2015 9:55 AM EST 3 mg Given 09/01/2015 9:30 AM EST 2 mg midazolam (PF) (VERSED) 1 mg/mL multi-dose injection PRN, Starting on Fri09/01/15 at 0830, Until Fri09/01/15 at 1252, Sleep, Anesthesia Intra-op, Routine Given 09/01/2015 8:30 AM EST 2 mg neostigmine (PROSTIGMINE) multi-dose injection PRN, Starting on Fri09/01/15 at 1212, Until Fri09/01/15 at 1252, Anesthesia Intra-op, Routine Given 09/01/2015 12:12 PM EST 5 mg ondansetron (ZOFRAN) injection PRN, Starting on Fri09/01/15 at 1153, Until Fri09/01/15 at 1252, Nausea, Anesthesia Intra-op, Routine Given 09/01/2015 11:53 AM EST 4 mg PHENYLephrine HCl in NS (PF) (INDIRA-SYNEPHRINE) 0.8 mg/10 mL (80 mcg/mL) multi-dose injection Syrg PRN, Starting on Fri09/01/15 at 0904, Until Fri09/01/15 at 1252, Anesthesia Intra-op, Routine Given 09/01/2015 10:50 AM EST 160 mcg Given 09/01/2015 10:29 AM EST 80 mcg Given 09/01/2015 10:14 AM EST 80 mcg propofol (DIPRIVAN) 10 mg/mL bolus injection (Anesthesia) PRN, Starting on Fri09/01/15 at 0840, Until Fri09/01/15 at 1252, Anesthesia Intra-op Given 09/01/2015 8:40 AM EST 20 0 mg rocuronium (ZEMURON) multi-dose injection PRN, Starting on Fri09/01/15 at 0856, Until Fri09/01/15 at 1252, Anesthesia Intra-op, Routine Given 09/01/2015 11:24 AM EST 10 mg Given 09/01/2015 10:01 AM EST 20 mg Given 09/01/2015 8:56 AM EST 50 mg documented in this encounter Care Teams [employer] And Plastic Heater Relationship Specialty Start Date End Date Cherise Staples MD [address] [place] [address] PCP - General 07/31/10 10/04/19 documented as of this encounter
--- OUTSIDE RECORDS SUMMARY | 2024-08-20 06:24 | XMS_ITS | Encounter Summary ---
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 Procedure Date: 08/30/2015 2:05 PM ? Date of : 1945 ? Age: 69 ? Order #: [id number] ? Procedure: ? ERCP Indications: ? Suspected ascending cholangitis Providers: ? Nick Broussard MD, Carlos Manuel Adorno ? MD Prabhu, Niles Long RN Referring : ?Cherise Staples MD Medicines: ? General Anesthesia Complications: ? No immediate complications. Procedure: ? Pre-Anesthesia Assessment: ? - Prior to the procedure, a History ? and Physical was performed, and ? patient medications and allergies ? were reviewed. The patient is ? competent. The risks and benefits of ? the procedure and the sedation ? options and risks were discussed with ? the patient. All questions were ? answered and informed consent was ? obtained. Patient identification and ? proposed procedure were verified by ? the physician in the pre-procedure ? area. Mental Status Examination: ? alert and oriented. Airway ? Examination: normal oropharyngeal ? airway and neck mobility. Respiratory ? Examination: clear to auscultation. ? CV Examination: normal. Prophylactic ? Antibiotics: The patient does not ? require prophylactic antibiotics. ? Prior Anticoagulants: The patient has ? taken anticoagulant medication, last ? dose was 1 day prior to procedure. ? ASA Grade Assessment: III - A patient ? with severe systemic disease. After ? reviewing the risks and benefits, the ? patient was deemed in satisfactory ? condition to undergo the procedure. ? The anesthesia plan was to use ? general anesthesia. Immediately prior ? to administration of medications, the ? patient was re-assessed for adequacy ? to receive sedatives. The heart rate, ? respiratory rate, oxygen saturations, ? blood pressure, adequacy of pulmonary ? ventilation, and response to care ? were monitored throughout the ? procedure. The physical status of the ? patient was re-assessed after the ? procedure. ? The procedure, indications, benefits, ? risks and alternatives were explained ? to the patient. Specifically ? discussed were potential ? complications including, but not ? limited to, bleeding, perforation, ? infection, pancreatitis, missing a ? cancer, and adverse medication ? reactions. The Duodenoscope was ? introduced through the mouth, and ? advanced to the duodenum where it was ? used to inject contrast into and used ? to inject contrast into the bile ? duct. The ERCP was accomplished ? without difficulty. The patient ? tolerated the procedure well. ? Findings: ? The railroad surveyor film was normal. The esophagus was ? successfully intubated under direct vision. The scope ? was advanced to the major papilla in the descending ? duodenum without detailed examination of the pharynx, ? larynx and associated structures, and upper GI tract. ? The upper GI tract was grossly normal. There was ? evidence of a previous sphincterotomy. The bile duct ? was deeply cannulated with the short-nosed traction ? sphincterotome and a 0l035 inch ACROBAT wire advanced ? to the intrahepatic ducts Contrast was injected. ? Cholangiogram was not optimal due to body habitus and ? being in the OR. However, we could not see any ? obvious filling defect in the CBD. There was some ? filling into the cyst duct but an abrupt cut-off in ? the GB neck suggesting an imnpacted stone in the GB. ? There was no evidence of significant dilation of the ? biliary tree - just diffuse dilation of the CBD to 7 ? mm. A 10 mm biliary sphincterotomy was extended with ? a short-tip traction sphincterotome using ERBE ? electrocautery. There was no post-sphincterotomy ? bleeding. We then swept the duct greater than 10 ? times with both the 8.5 mm and 11.5 mm occlusion ? balloons and performed an occlusion cholangiogram ? several times and did not remove any stones. ? The PD was not accessed. ? Impression: ?No evidence of CBD stone s/p ? extension of sphincterotomy and ? sweeping of the CBD Recommendation: ?- Return to floor ? - Aggressive antibiotics and fluid ? resuscitation ? - CCY ? Procedure Code(s): ?? --- Professional --- ? 44591, Endoscopic retrograde ? cholangiopancreatography (ERCP); with ? sphincterotomy/papillotomy CPT copyright 2014 [employer]. All rights reserved. The codes documented in this report are preliminary and upon pediatric anesthesiologist review may be revised to meet current compliance requirements. Nick Broussard MD 08/31/2015 7:29 AM This report has been signed electronically. Number of Addenda: 0 Note Initiated On: 08/30/2015 2:05 PM PROVATION 08/30/2015 2:05 PM EST Cherise Staples MD GENERAL SURGICAL ORD ERABLES PROVATION documented in this encounter Visit Diagnoses Not on filedocumented in this encounter Care Teams Footwear Machinery Instructor Relationship Specialty Start Date End Date Cherise Staples MD [address] [place] [address] PCP - General 07/31/10 10/04/19 documented as of this encounter
--- OUTSIDE RECORDS SUMMARY | 2024-08-20 06:24 | XMS_ITS | Encounter Summary ---
Author Organization [facility] [place] [address] Care Team Providers Care Sidehand Name Role Phone Cherise Staples MD Primary Care Provider [phone] Reason for Visit * Reason Comments Abdominal Pain * Auth/Cert - Closed Specialty Diagnoses / Procedures Referred By Carla soto Referred To Contact Diagnoses Cholecystitis Pain Atrial fibrillation, unspecified cholangoangitis Procedures ERCP Referral ID Status Reason Start Date Expiration Date Visits Re quested Visits Authorized [id number] Closed 1 1 Encounter Details Date Type Department Care Team (Late st Contact Info) Description 08/30/2015 2:35 PM EST - 08/30/2015 3:59 PM EST [place] [id number] Nick Broussard MD [facility] [place] [address] ERCP (VU 5.85) Social History Tobacco Use Types Packs/Day Years [...] Jaime Crouch Patient Age: 69 y.o. Language: Uruguayan Race: White Ethnicity: Not nor Admit date: 08/30/2015 Discharge date and time: 09/02/2015 Attending Physician: Delroy Chu MD Discharge Physician: Delroy Chu MD Inpatient Provider Contact Information: For questions regarding this document or issues relating to this hospitalization on the Medical Service, please contact your inpatient physician through the [facility] . Issues afterhours and on weekends will [...] prompted him to see care at the [facility] ED. There he was noted to have a WBC of 18, elevated LFTs, amylase and lipase. A CT scan was obtained which noted multiple gallstones. Pt was transferred to [facility] for further evaluation and care. Of note [...] 3 wbc, hgb, hct plt Recent Labs 12/26/15 0210 09/01/15 0401 08/31/15 0934 WBC 13.3* [...] 101.3 F. The number for questions is [phone] before 5 PM weekdays and [phone] after 5 PM and weekends. Pain Medication: [...] will be mailed to you. Please call [phone] (clinic number for appointments) to confirm date and time of your appointment if you do not receive your apointment in 3 weeks. General Instructions None Provider Contact Information: CHERISE STAPLES MD [address] / [facility] [address] Discharge References/Attachments None documented in this encounter [...] 101.3 F. The number for questions is [phone] before 5 PM weekdays and [phone] after 5 PM and weekends. Pain Medication: [...] will be mailed to you. Please call [phone] (clinic number for appointments) to confirm date [...] Chu MD Patient cleared for discharge by 's. D/C teaching completed with patient, and son. [...] paged 1240: ICU bed requested through Katy Mendez, [employer] 1252: Hold LR at [address] [...] placed on Boarder Status awaiting Transport. 1402: [employer] called to supply additional resources to transport [...] MD 09/01/2015 12:30 PM Associated attestation - Ginwalla, Rashna F, MD - 09/01/2015 5:09 PM EST Attending [...] of two midnights or is [facility] the [facility] only procedure list (status C) due [...] of two midnights or is on the [facility] inpatient only procedure list (status C) due to: acute injury, physiologic or anatomic insult requiring close monitoring; IV fluid resuscitaiton and/or IV medication; lab/imaging evaluation and has potential for urgent operative intervention. JAY CHAMBERS MD 08/31/2015 * Annemarie Diop, RN - 08/31/2015 11:34 AM EST Office [...] needs CM available Annemarie Diop RN CCM #[id number] * Howard Moya MD - 08/31/2015 10:37 AM EST Gastroenterology & Hepatology Progress Note Jaime Crouch 1945 [id number] PCP: CHERISE STAPLES MD Date of Admission: 08/30/2015 ( Hospital Day 1 day ) Attg: Delroy Chu MD PATIENT ID [id number] w/ afib on a/c, HTN, HLD, CAD s/p stenting to LAD, ?cholangitis with ERCP and sphincterotomy in09/2014 (no CBD stones then) who presents with worsening RUQ and epgastric abdominal pain similar to09/2014 -CT 12/22 at OSH indicting GS and possible CBD [...] ERCP performed by Nick Broussard MD at [facility] Medications Scheduled Meds: ??? ampicillin-sulbactam 3 g Intravenous Q6H KYLEE ??? atorvastatin 80 mg Oral QPM ??? DILTiazem 60 mg Oral Q6H KLYEE ??? lisinopril 20 mg Oral Daily ??? [...] the OR tomorrow. Howard Moya MD, MS assistant account manager Section of Gastroenterology and Hepatology * Makenzie [...] 7:07 PM EST 1899- Received report from [facility]. Pt awake alert VSS, moving all extremities, [...] for remaining FFP units. Nursing hand-off to JAOCB Olvera. * Claire Perkins RN - 08/30/2015 3:38 PM EST Office of Care Management (OCM) / Corner Block Cutter(CM)/ Initial Assessment Discussed patient with Provider Team and with research staff member. Reviewed record. REASON for HOSPITALIZATION: patient admitted on 08/29/15 in transfer from [facility] ED. Patient presented to ED with RUQ abdominal pain. At this time patient is on Unasyn IV q6hr. NPO except meds. IV at 50/hr. Diltiazem po q6hr. Lasix 20mg po BID. Lisinopril po qday. Lopressor po BID. Lipitor po qpm. Pepcid po/IV BID. PMH ICD-10-CM Priority Class Noted POA Suspected cholecystitis vs cholangitis K81.9 09/09/2014 Yes Overview Signed 09/20/2014 8:18 AM by Lili Peters, DO S/p sphincerotomy - consider elective choly as outpatient Non-Hospital Problem List Date Reviewed: 09/20/2014 ICD-10-CM Priority Class Noted Nephrolithiasis N20.0 09/10/2011 Overview (Other) 06/07/2012 5:49 PM by Unknown Previous Version Phimosis N47.1 12/11/2011 Hypertension I10 09/09/2014 Atrial fibrillation I48.91 09/09/2014 Overview Addendum 09/20/2014 8:16 AM by Lili Peters DO S/p Vit K at [facility] - INR sub therapeutic - on lovenox bridge until INR 2-3 Previous Version TOM on CPAP G47.33 09/09/2014 Morbid obesity E66.01 09/20/2014 Hypertension (HTN) I10 09/20/2014 CAD I25.10 09/20/2014 Nonsustained ventricular tachycardia I47.2 09/20/2014 PREVIOUS FUNCTIONAL STATUS: independent CURRENT FUNCTIONAL STATUS: ambulating with assistance SOCIAL / FAMILY SUPPORTS: Leah, family/friends ADVANCE DIRECTIVES: On file here at [facility] HEALTH /PRESCRIPTION COVERAGE: Medicare (parts A and B) and [place]/BS [employer] CURRENT HOME/COMMUNITY SERVICES/EQUIPMENT: DME: Patient uses CPAP at home MORTGAGE LOAN CLOSER REFERRAL: not needed at this time PRIMARY CARE PHYSICIAN: CHERISE STAPLES MD [address] / [place] [address] DISCHARGE NEEDS: Discharge needs not known at [...] on CT scan. He was admitted to [facility] in September of this year for cholangitis [...] ??? ASCVD (arteriosclerotic cardiovascular disease) 1993 first [place] 1992, stent to LAD in 2006 ??? [...] ERCP performed by Nick Broussard MD at [facility] ??? Pro ercp,diagnostic N/A 08/30/2015 ERCP performed by Nick Broussard MD at [facility] Allergies: No Known Allergies [...] %] ABG: No results for input(s): PHART, JLD3FSN, PO2ART, ENN1JKM in the last 168 hours. Physical Exam: [...] -- 33 No results for input(s): PHART, MDN5XAH, PO2ART, RWB2YED, BEART in the last 168 hours. ECG [...] tylenol and dilaudid IV, will add dilaudid gumming machine operator if needed or if diet is advanced [...] Ok to proceed with scheduled operation. RUDI REARDON DO * Nick Broussard MD - 08/30/2015 4:06 [...] from the original note were not included. [facility] Department of Surgery History of Present Illness: [...] prompted him to see care at the [facility] ED. There he was noted to have a WBC of 18, elevated LFTs, amylase and lipase. A CT scan was obtained which noted multiple gallstones. Pt was transferred to [facility] for further evaluation and care. Of note pt was admitted in September of 2014 for cholangitis, at that timehe was treated with a 7 day course of zosyn, and underwent an ERCP with sphincterotomy. Past Medical History: Past Medical History Diagnosis Date ??? Kidney stone ??? Hypertension ??? ASCVD (arteriosclerotic cardiovascular disease) 1993 first [place] 1992, stent to LAD in 2006 ??? [...] pain resolved on the trip down from [facility], no pain on exam at present ?? [...] a 69 y.o. male who presents to [facility] with increasing abdominal pain History of Present [...] (CPG) Outcome: Ongoing (Interventions Implemented as Appropriate) 09/02/15 033 Skin Integrity Impairment, Risk/Actual Physiological Related Risk [...] Chambers MD - 09/01/2015 12:30 PM EST [facility] Operative Note Patient Name: Jaime Crouch : [id number] MR#: [id number] Case Date: 09/01/2015 Surgeon: Surgeon(s) and Role: * Jay Chambers MD - Primary * ReardonRudi DO - Resident-Surgeon Marcelino Preoperative diagnosis: acute [...] Operative Note Patient Name: Jaime Crouch : [id number] MR#: [id number] Case Date: 09/01/2015 Surgeon: Surgeon(s) and Role: [...] replaced after wound cleansed with dermal wound opening machine cleaner. Pulses +1 doppler, +2 pitting edema [...] Outcome: Ongoing (Interventions Implemented as Appropriate) 08/31/15199909/01/15 0024 Safety Interventions Safety Precautions/Fall Reduction environmental modification;fall [...] by with walker Supervision: Stand by Surveillance: Masimo, hourly rounding, family at bedside C[employer] OUTCOME [...] Ongoing (Interventions Implemented as Appropriate) 08/30/15200908/31/1543508/31/15 0755 Akanksha Fall Risk History of Falling -- -- [...] Control Outcome: Ongoing (Interventions Implemented as Appropriate) 08/31/15754 Safety Interventions Isolation Precautions standard precautions maintained Infection Prevention bronchial hygiene promoted;environmental surveillance;hydration promoted;nutrition promoted;promote handwashing;rest/sleep promoted Coping/Psychosocial Response Interventions Counseling problem solving facilitated;reassurance provided Goal: Discharge Needs Assessment Outcome: Ongoing (Interventions Implemented as Appropriate) 08/30/1523608/30/156 Discharge Needs Assessment Concerns to be Addressed -- no discharge needs identified Current Health Anticipated Changes Related to Illness -- none Self-Care Equipment Currently Used at Home cane, straight -- Living Environment Transportation Available family or friend will provide -- * Consult Note - Pual Johnson RN - 08/31/2015 11:03 AM EST [...] Nutrition Interventions: refer to dietitian Current bed: [facility] Assessment: Venous stasis ulceration with his left [...] 2. Apply Mepilex Transfer over wound (PS# [id number]) 3. Cover with ABD Pad or burn [...] A referral can be made by calling [phone] a [facility] wound referral. Discussed plan with: /JODY/PA: Dr. Heredia RN: Zahra Please contact PAUL JOHNSON RN on pager [phone] or the wound care team at [phone] or pager [phone] with skin and wound care concerns or [...] left leg is leaking brown/yellow fluid, wound c consultant at bedside, newbandage applied A/ox4, waiting [...] CONSULTATION Initial Consult Note Jaime Crouch 1945 [id number] Requesting Provider: Team Surgery REASON FOR CONSULTATION [...] occurred less frequently. When he presented to [facility] he wasfound to have WBC 18, elevated [...] ??? ASCVD (arteriosclerotic cardiovascular disease) 1993 first [place] 1993, stent to LAD in 2006 ??? Atrial [...] this admission. Continue amp/sul. Sarika Saini MD Utility Worker Roller Shopmortgage loan closer Section of Gastroenterology [place] [address] * Consult Note - Evette Young RCP [...] hospital, diltizem IV push was given at [facility] ED. Based on his heart rate jumping [...] will provide -- * ED Triage - Rocco, Lolita Iyer RN - 08/30/2015 12:38 AM EST Patient arrives by EMS from [facility] after having had abdominal pain this morning that increased as theday went on. Patient was diagnosed with cholecystitis at [facility] and comes here tonight to consult with surgery. A/Ox4, respirations even and unlabored. documented in this encounter Plan of Treatment Pending Results Name Type Priority Associated Diagnoses Date /Time Transfuse thawed plasma Blood Bank Routine 08/30/2015 2:49 PM EST FILM LIBRARY-FLUORO OR [id number] ONL Imaging Routine 08/30/2015 5:4 7 PM EST Scheduled Orders Name Type Priority Associated Diagnoses Orde r Schedule FILM LIBRARY-FLUORO OR [id number] ONL Imaging Routine Once PRN (f or Radiant use) for 1 Occurrences starting 08/30/2015 until 08/30/2015 FILM LIBRARY-FLUORO OR [id number] ONL Imaging Routine Once PRN (f or Radiant use) for 1 Occurrences starting 09/01/2015 until 09/01/2015 documented as of this encounter Procedures Procedure Name Priority Date/Time Associated Diagnosis Comments LAB SCAN 09/03/2015 12:00 AM EST INSPECTOR HEATING AND REFRIGERATION SCAN 09/03/2015 12:00 AM EST ECG SCAN [...] LAPAROSCOPIC CHOLECYSTECTOMY Routine 09/01/2015 9:16 AM EST CMP W/FASTING GLUCOSE Routine 09/01/2015 4:01 AM [...] PELVIS STAT 08/29/2015 12:00 AM EST Pain documented in this encounter Results * SCAN DOC: LAB (09/03/2015 12:00 AM EST) Scanning Provider MEDIA MGR SCAN EXT O RDR/RSLT * SCAN DOC: INSPECTOR HEATING AND REFRIGERATION (09/03/2015 12:00 AM EST) Anatomical Region Laterality Modality Other Scanning Provider MEDIA MGR SCAN EXT O RDR/RSLT * SCAN DOC: ECG (09/03/2015 12:00 AM EST) Scanning Provider MEDIA MGR SCAN EXT O RDR/RSLT * (ABNORMAL) CMP w/fasting Glucose (09/02/2015 2:10 AM EST) [facility] Glucose Fasting 151(H) 65 - 99 mg/dL [facility] Comment: ?Fasting* Glucose Interpretive Criteria Normal ?65-99 [...] of Diabetes Mellitus, Position Statement from the [place] Diabetes Association. ??Diabetes Care, Volume 33, Supplement 1, Sep 2009 Blood Urea Nitrogen 16 10 - 20 mg/dL CERNER MILLENNIUM Creatinine 0.90 0.80 - 1.50 mg/dL CERNER MILLENNIUM Comment: Please note that the pediatric reference intervals supplied above were not validated at [facility]. Results from pediatric patients should be interpreted [...] the following links into your internet browser. [email or web address] Blood specimen (specimen) 09/02/2015 2:10 AM EST 09/02/2015 2:23 AM EST Narrative Resulting Agency Comment Spec In Lab Delroy Chu MD CHEMISTRY ORDERABLES Performing Organization Address [facility] de Phone Number CERNER MILLENNIUM * (ABNORMAL) Phosphorus (09/02/2015 2:10 AM EST) Phosphorus 2.4(L) 2.5 - 4.5 mg/dL CERNER MILLENNIUM Blood specimen (specimen) 09/02/2015 2:10 AM EST 09/02/2015 2:23 AM EST Narrative Resulting Agency Comment Spec In Lab Delroy Chu MD CHEMISTRY ORDERABLES Performing Organization Address [facility] de Phone Number CERNER MILLENNIUM * (ABNORMAL) Hemogram (09/02/2015 2:10 AM EST) [...] MD POINT OF CARE TEST O RDERABLES CERNER MILLENNIUM * (ABNORMAL) BLOOD GAS 2 ARTERIAL (09/01/2015 12:06 PM EST) pH, Arterial 7.34(L) 7.35 - 7.45 CERNE R MILLENNIUM PCO2, Arterial 52(Critic al) 35 - 45 mmHg CERNER MILLENNIUM Comment:Noted by instrument calibrator. PO2, Arterial 271(H) 85 - 104 mmHg [...] MD POINT OF CARE TEST O RDERABLES MAXIMO NERI * Surgical Pathology Report (09/01/2015 11:56 AM EST) Final Diagnosis [id number] ? Location: [facility]; [facility]; A The signing pathologist has (i) examined [...] fundus. (R2) ??kef/shb 09/05/2015 11:18 AM EST [facility] GALLBLADDER STRUCTURE / Unknown 09/01/2015 11:56 AM EST 09/01/2015 11:56 AM EST Jay Chambers MD PATHOLOGY/CYTOLOGY ORDERABLES MAXIMO NERI [facility] [place] [address] * Specimen to Pathology (surgical or derm) (09/01/2015 11:56 AM EST) AP Specimen 09/01/2015 11:5 6 AM EST 09/01/2015 11:56 AM EST Narrative [facility] - 09/01/2015 11:56 AM EST Specimen requisition ordered. ??Separate Pathology report to follow Delroy Chu MD PATHOLOGY/CYTOLOGY O RDERAFRANKLIN CERDENISE MILLKIKEIUM * (ABNORMAL) BLOOD GAS 2 ARTERIAL (09/01/2015 [...] MD POINT OF CARE TEST O RDERABLES [facility] * (ABNORMAL) CMP w/fasting Glucose (09/01/2015 4:01 [...] of Diabetes Mellitus, Position Statement from the [place] Diabetes Association. ??Diabetes Care, Volume 33, Supplement 1, Sep 2009 Blood Urea Nitrogen 15 10 - 20 mg/dL CERNER MILLENNIUM Creatinine 0.86 0.80 - 1.50 mg/dL CERNER MILLENNIUM Comment: Please note that the pediatric reference intervals supplied above were not validated at [facility]. Results from pediatric patients should be interpreted [...] the following links into your internet browser. [email or web address] Blood specimen (specimen) 09/01/2015 4:01 AM EST 09/01/2015 4:06 AM EST Narrative Resulting Agency Comment Spec In Lab Delroy Chu MD CHEMISTRY ORDERABLES Performing Organization Address [facility] de Phone Number CERNER MILLENNIUM * (ABNORMAL) Phosphorus (09/01/2015 4:01 AM EST) Phosphorus 2.0(L) 2.5 - 4.5 mg/dL CERNER MILLENNIUM Blood specimen (specimen) 09/01/2015 4:01 AM EST 09/01/2015 4:06 AM EST Narrative Resulting Agency Comment Spec In Lab Delroy Chu MD CHEMISTRY ORDERABLES Performing Organization Address [facility] de Phone Number CERNER MILLENNIUM * (ABNORMAL) Hemogram (09/01/2015 4:01 AM EST) White Blood Cell 9.1 4.0 - 10.0 x10(3)/mc L CERNER MILLENNIUM Red Blood Cell 4.48(L) 4.63 - 6.08 x10(6)/mc L CERNER MILLENNIUM Hemoglobin 13.3(L) 13.7 - 17.5 gm/dL CERNER MILLENNIUM Hematocrit 41.1 40.0 - 51.0 % CERNER MILLENNIUM Mean Cell Volume 91.7 79.0 - 92.0 fL CERNER MILLENNIUM Mean Cell Hemoglobin 29.7 25.6 - 32.2 pg CERNER MILLENNIUM Mean Cell Hemoglobin Concentration 32.4 32.0 - 36.5 gm/dL CERNER MILLENNIUM Platelet 220 145 - 370 x10(3)/mc L CERNER MILLENNIUM RDW Standard Deviation 59.3(H) 35.0 - 46.0 fL CERNER MILLENNIUM RDW coefficient of variation 17.9(H) 10.9 - 14.4 % [facility] Mean Platelet Volume 9.0 9.0 - 12.0 fL [facility] Blood specimen (specimen) 09/01/2015 4:01 AM EST 09/01/2015 4:06 AM EST Narrative Resulting Agency Comment Spec In Lab Delroy hCu MD HEMATOLOGY ORDERABLE S Performing Organization Address [facility] de Phone Number [facility] * (ABNORMAL) Hepatitis A Antibody, Total (08/31/2015 3:38 PM EST) Pathologist [facility] Hepatitis A ANTIBODY, TOTAL Positive(A ) Negative [facility] Blood specimen (specimen) 08/31/2015 3:38 PM EST 08/31/2015 3:45 PM EST Narrative Resulting Agency Comment Spec In Lab Delroy Chu MD CHEMISTRY ORDERABLES Performing Organization Address [facility] de Phone Number [facility] * Hepatitis C RNA, quantitative, PCR (08/31/2015 3:38 PM EST) Pathologist [facility] HCV Viral Load <15 IU/mL [facility] HCV Viral Load Result: <15 IU/mL (Target Not Detected) Indication for Study: Hepatitis C Infection Analysis: A quantitiative real time reverse transcriptase PCR assay was performed on extracted viral RNA for the purpose of quantification. Sample: plasma (1 mL minimum volume) Method: Micheal Brian TaqMAN 48 HCV Linear Range: 15 IU/mL - 100,000,000IU/mL (95% CI) Note: This assay is being performed in the [facility] Molecular Pathology Laboratory. Logan Khan, Ph.D. Director, Molecular Pathology [facility] Comment: [VERIFIED DATE]09.05.15 Verified By:Katy Monzon (Electronic Signature) Blood specimen (specimen) 08/31/2015 3:38 PM EST 09/04/2015 10:42 AM EST Narrative Resulting Agency Comment Spec In Lab Delroy Chu MD MOLECULAR ORDERABLES Performing Organization Address [facility] de Phone Number [facility] * Hepatitis A Antibody, IgM (08/31/2015 3:38 PM EST) Hepatitis A Antibody, IgM Negative Negative [facility] Blood specimen (specimen) 08/31/2015 3:38 PM EST 08/31/2015 3:45 PM EST Narrative Resulting Agency Comment Spec In Lab Delroy Chu MD CHEMISTRY ORDERABLES Performing Organization Address [facility] Phone Number [facility] * Hepatitis B Surface Antibody (08/31/2015 3:38 PM EST) Hepatitis B Surface Antibody Positive [facility] Comment: Expected Results: Vaccinated: Positive Unvaccinated: Negative [...] Chu MD CHEMISTRY ORDERABLES Performing Organization Address [facility] Phone Number [facility] * Hepatitis B Surface Antigen (08/31/2015 3:38 PM EST) Hepatitis B Surface Antigen Negative Negative [facility] Blood specimen (specimen) 08/31/2015 3:38 PM EST 08/31/2015 3:45 PM EST Narrative Resulting Agency Comment Spec In Lab Delroy Chu MD CHEMISTRY ORDERABLES Performing Organization Address [facility] Phone Number [facility] * Hepatitis C Antibody (08/31/2015 3:38 PM EST) Hepatitis C Antibody Negative Negative [facility] Blood specimen (specimen) 08/31/2015 3:38 PM EST 08/31/2015 3:45 PM EST Narrative Resulting Agency Comment Spec In Lab Delroy Chu MD CHEMISTRY ORDERABLES Performing Organization Address [facility] Phone Number [facility] * Lactate, whole blood, send to lab (08/31/2015 3:38 PM EST) Lactate WB 1.4 0.5 - 2.2 mmol/L [facility] Blood specimen (specimen) 08/31/2015 3:38 PM EST 08/31/2015 3:45 PM EST Narrative Resulting Agency Comment Spec In Lab Delroy Chu MD CHEMISTRY ORDERABLES Performing Organization Address [facility] Phone Number [facility] * Blood culture (08/31/2015 9:45 AM EST) Blood Culture No growth at 5 days. [facility] Blood specimen (specimen) STRUCTURE OF RIGHT HAND / Unknown 08/31/2015 9:45 AM EST 08/31/2015 10:16 AM EST Comment:DRAW BLOOD CULTURES BEFORE ADMINISTERING ANTIBIOTICS Narrative Resulting Agency Comment Spec In Lab Delroy Chu MD MICROBIOLOGY - BLOOD ORDERABLES Performing Organization Address [facility] Phone Number [facility] * (ABNORMAL) CMP w/fasting Glucose (08/31/2015 9:35 AM EST) Glucose Fasting 115(H) 65 - 99 mg/dL [facility] Comment: ?Fasting* Glucose Interpretive Criteria Normal ?65-99 [...] of Diabetes Mellitus, Position Statement from the [place] [employer]. ??Diabetes Care, Volume 33, Supplement 1, Sep 2009 Blood Urea Nitrogen 18 10 - 20 mg/dL CERNER MILLENNIUM Creatinine 0.92 0.80 - 1.50 mg/dL CERNER MILLENNIUM Comment: Please note that the pediatric reference intervals supplied above were not validated at [facility]. Results from pediatric patients should be interpreted [...] the following links into your internet browser. [email or web address] Blood specimen (specimen) STRUCTURE OF LEFT HAND / Unknown Venous Draw / Unknown 08/31/2015 9:35 AM EST 08/31/2015 10:14 AM EST Comment:Draw blood Cultures before administering antibiotics Narrative Resulting Agency Comment Spec In Lab Delroy Chu MD CHEMISTRY ORDERABLES Performing Organization Address [facility] Co de Phone Number MAXIMO NERI * Amylase (08/31/2015 9:35 AM EST) Amylase 32 28 - 100 unit/L MAXIMO NERI Blood specimen (specimen) STRUCTURE OF LEFT HAND / Unknown Venous Draw / Unknown 08/31/2015 9:35 AM EST 08/31/2015 10:14 AM EST Comment:Draw blood Cultures before administering antibiotics Narrative Resulting Agency Comment Spec In Lab Delroy Chu MD CHEMISTRY ORDERABLES Performing Organization Address [facility]/[place] de Phone Number MAXIMO NERI * Gold Tube HOLD (08/31/2015 9:35 AM EST) Gold Hold Sample in lab. MAXIMO NERI Blood specimen (specimen) Venous Draw / Unknown 08/31/2015 9:35 AM EST 08/31/2015 10:13 AM EST Comment:Draw blood Cultures before administering antibiotics Delroy Chu MD CHEMISTRY ORDERABLES Performing Organization Address [facility]/[place] de Phone Number MAXIMO NERI * Blue Tube HOLD (08/31/2015 9:35 AM EST) Blue Hold Sample in lab. MAXIMO NERI Blood specimen (specimen) Venous Draw / Unknown 08/31/2015 9:35 AM EST 08/31/2015 10:13 AM EST Comment:Draw blood Cultures before administering antibiotics Delroy Chu MD HEMATOLOGY ORDERABLE S MAXIMO ELYIUM * Blood culture (08/31/2015 9:35 AM EST) Blood Culture No growth at 5 days. CERNER MILLENNIUM Blood specimen (specimen) STRUCTURE OF LEFT HAND / Unknown 08/31/2015 9:35 AM EST 08/31/2015 10:16 AM EST Comment:DRAW BLOOD CULTURES BEFORE ADMINISTERING ANTIBIOTICS Narrative Resulting Agency Comment Spec In Lab Delroy Chu MD MICROBIOLOGY - BLOOD ORDERABLES MAXIMO ELYIUM * (ABNORMAL) Differential, Automated (08/31/2015 9:34 AM EST) Neutrophil % 82.9 % CERNER MILLENNIUM Neutrophil [...] Absolute 0.04 0.00 - 0.05 x10(3)/mc L CERNER MILLENNIUM Blood specimen (specimen) Venous Draw / Unknown 08/31/2015 9:34 AM EST 08/31/2015 9:57 AM EST Narrative Resulting Agency Comment Spec In Lab Delroy Chu MD HEMATOLOGY ORDERABLE S Performing Organization Address [facility]/[place] de Phone Number [facility] * Lactate, whole blood, send to lab (08/31/2015 9:34 AM EST) Lactate WB 1.1 0.5 - 2.2 mmol/L [facility] Blood specimen (specimen) 08/31/2015 9:34 AM EST 08/31/2015 9:41 AM EST Narrative Resulting Agency Comment Spec In Lab Delroy Chu MD CHEMISTRY ORDERABLES Performing Organization Address [facility]/[place] de Phone Number [facility] * (ABNORMAL) Phosphorus (08/31/2015 9:34 AM EST) Phosphorus 2.3(L) 2.5 - 4.5 mg/dL [facility] Blood specimen (specimen) 08/31/2015 9:34 AM EST 08/31/2015 9:57 AM EST Narrative Resulting Agency Comment Spec In Lab Delroy Chu MD CHEMISTRY ORDERABLES Performing Organization Address [facility]/[place] de Phone Number [facility] * (ABNORMAL) BMP w/fasting Glucose (08/31/2015 9:34 AM EST) Glucose Fasting 120(H) 65 - 99 mg/dL [facility] Comment: ?Fasting* Glucose Interpretive Criteria Normal ?65-99 [...] of Diabetes Mellitus, Position Statement from the [place] [employer]. ??Diabetes Care, Volume 33, Supplement 1, Sep 2009 Blood Urea Nitrogen 18 10 - 20 mg/dL CERNER MILLENNIUM Creatinine 0.91 0.80 - 1.50 mg/dL CERNER MILLENNIUM Comment: Please note that the pediatric reference intervals supplied above were not validated at [facility]. Results from pediatric patients should be interpreted [...] the following links into your internet browser. [email or web address] Blood specimen (specimen) 08/31/2015 9:34 AM EST 08/31/2015 9:57 AM EST Narrative Resulting Agency Comment Spec In Lab Delroy Chu MD CHEMISTRY ORDERABLES [facility] * (ABNORMAL) Hemogram (08/31/2015 9:34 AM EST) [...] Lab Delroy Chu MD HEMATOLOGY ORDERABLE S [facility] * Lactate, whole blood, send to lab (08/31/2015 4:37 AM EST) Lactate WB 1.5 0.5 - 2.2 mmol/L [facility] Blood specimen (specimen) 08/31/2015 4:37 AM EST 08/31/2015 4:46 AM EST Narrative Resulting Agency Comment Spec In Lab Delroy Chu MD CHEMISTRY ORDERABLES [facility] * Lactate, whole blood, send to lab (08/30/2015 8:59 PM EST) Lactate WB 1.1 0.5 - 2.2 mmol/L MAXIMO ELYIUM Blood specimen (specimen) 08/30/2015 8:59 PM EST 08/30/2015 9:04 PM EST Narrative Resulting Agency Comment Spec In Lab Delory Chu MD CHEMISTRY ORDERABLES Performing Organization Address [facility] Phone Number MAXIMO NERI * (ABNORMAL) Prothrombin Time (08/30/2015 6:30 PM EST) Prothrombin Time 19.3(H) 12.0 - 15.0 sec CERDENISE BOWENENNIUM Comment: Transfusion Committee Guidelines: INR less than [...] MD HEMATOLOGY ORDERABLE S Performing Organization Address [facility] Phone Number MAXIMO NERI * Prepare thawed plasma (08/30/2015 4:35 PM EST) Dispensed? Yes MAXIMO NERI Blood specimen (specimen) 08/30/2015 4:35 PM EST 08/30/2015 4:34 PM EST Narrative Resulting Agency Comment Spec In Lab Delroy Chu MD BLOOD BANK PRODUCT O RDERABLES Performing Organization Address [facility]/[place] de Phone Number MAXIMO NERI * (ABNORMAL) Prothrombin Time (08/30/2015 3:55 PM EST) Prothrombin Time 22.2(H) 12.0 - 15.0 sec CERDENISE BOWENENNIUM Comment: Transfusion Committee Guidelines: INR less than 2.0, PTT less than OR equal to 43.5 seconds, or Fibrinogen greater than or equal to 100 mg/dl indicate adequate procoagulant activity for hemostasis in patients without underlying bleeding disorders. International Normalization Ratio 1.9(H) 0.9 - 1.1 MAXIMO NERI Blood specimen (specimen) 08/30/2015 3:55 PM EST 08/30/2015 4:06 PM EST Narrative Resulting Agency Comment Spec In Lab Delroy Chu MD HEMATOLOGY ORDERABLE S Performing Organization Address [facility] Co de Phone Number MAXIMO NERI * Prepare thawed plasma (08/30/2015 3:00 PM EST) Dispensed? No MAXIMO NERI Blood specimen (specimen) 08/30/2015 3:00 PM EST 08/30/2015 2:57 PM EST Narrative Resulting Agency Comment Spec In Lab Delroy Chu MD BLOOD BANK PRODUCT O RDERABLES Performing Organization Address [facility] Co de Phone Number MAXIMO NERI * Lactate, whole blood, send to lab (08/30/2015 3:00 PM EST) Lactate WB 1.4 0.5 - 2.2 mmol/L MAXIMO NERI Blood specimen (specimen) 08/30/2015 3:00 PM EST 08/30/2015 3:07 PM EST Narrative Resulting Agency Comment Spec In Lab Delroy Chu MD CHEMISTRY ORDERABLES Performing Organization Address [facility]/[place] de Phone Number MAXIMO NERI * Transfuse thawed plasma (08/30/2015 2:43 PM [...] ?RAINA WILLIS ?(Age): 1945(69y) Med Rec#: ? [id number] ?Sex: ?M ? Site Loc: ? [facility] ?Ht / Wt: ??178(cm)/186(kg) Pt. Loc: ?Adult Floor ? BSA: ?2.83 Study Date: ?? 08/30/2015 ?Pt. Type: Inpatient Tape: ? Referring: JOHN EGAN T Referring: Delroy Chu Reading: Jaime Nguyen ([id number]) Orthopaedic Physician Assistant: Tamia Haines Diagnosis: *ICD-10-PCS Encounter for other preprocedural examination (Z01.818) *ICD-10-PCS Unspecified atrial fibrillation (I48.91) CPT Codes: *Echo Full (73329) *Spectral Doppler (19470) *Color Doppler (91303) Rhythm: ? A-Fib BP: ? 117/66 SUMMARY: [...] ? Mid-Inferior ?Normal ? Mid-Inferoseptal ?Normal ? [place]-Septal ? Normal ? [place]-Anterior ? Normal ? [place]-Lateral ?Normal ? [place]-Inferior ? Normal ? [place]-Tip ?Normal ? This report has been electronically signed by: Jaime Nguyen MD ? 08/30/2015 11:54:10 Images reviewed and interpretation verified [facility] Cardiac Ultrasound Laboratory Procedure Note Jaime Nguyen MD - 08/30/2015 Procedure: Transthoracic Echocardiogram Patient: RAINA WILLIS (Age): 1945(69y) Med Rec#: [id number] Sex: M Site Loc: [facility] Ht / Wt: 178(cm)/186(kg) Pt. Loc: Adult Floor BSA: 2.83 Study Date: 08/30/2015 Pt. Type: Inpatient Tape: Referring: JOHN EGAN T Referring: Delroy Chu Reading: Jaime Nguyen ([id number]) Orthopaedic Physician Assistant: Tamia Haines Diagnosis: *ICD-10-PCS Encounter for other preprocedural examination (Z01.818) *ICD-10-PCS Unspecified atrial fibrillation (I48.91) CPT Codes: *Echo Full (87661) *Spectral Doppler (22357) *Color Doppler (35012) Rhythm: A-Fib BP: 117/66 SUMMARY: 1. The [...] Normal Mid-Posterolateral Normal Mid-Inferior Normal Mid-Inferoseptal Normal [place]-Septal Normal [place]-Anterior Normal [place]-Lateral Normal [place]-Inferior Normal [place]-Tip Normal This report has been electronically signed by: Jaime Nguyen MD 08/30/2015 11:54:10 Images reviewed and interpretation verified [facility] Cardiac Ultrasound Laboratory Delroy Chu MD ECHO ORDERABLES * Antibody screen (08/30/2015 9:11 AM EST) Ab Screen Interp Negative [facility] Expires at [id number] on: 09/02/2015 [facility] Blood specimen (specimen) 08/30/2015 9:11 AM EST 08/30/2015 10:23 AM EST Narrative Resulting Agency Comment Spec In Lab Delroy Chu MD BLOOD BANK LAB ORDER JESSIE Performing Organization Address City/[facility] Co de Phone Number [facility] * ABO/Rh Typing (08/30/2015 9:11 AM EST) [facility] ABORH Type O Pos [facility] Blood specimen (specimen) 08/30/2015 9:11 AM EST 08/30/2015 10:23 AM EST Narrative Resulting Agency Comment Spec In Lab Delroy Chu MD BLOOD BANK LAB ORDER JESSIE Performing Organization Address [place]/[facility] Co de Phone Number [facility] * Lactate, whole blood, send to lab (08/30/2015 9:11 AM EST) [facility] Lactate WB 1.4 0.5 - 2.2 mmol/L [facility] Comment:Results rechecked-mk f Blood specimen (specimen) 08/30/2015 9:11 AM EST 08/30/2015 9:15 AM EST Narrative Resulting Agency Comment Spec In Lab Delroy Chu MD CHEMISTRY ORDERABLES Performing Organization Address City/[facility]/ZIP Co de Phone Number [facility] * Prepare thawed plasma (08/30/2015 7:30 AM EST) Pathologist [facility] [place] Dispensed? Yes CERNER MILLENNIUM Blood specimen (specimen) 08/30/2015 7:30 AM EST 08/30/2015 7:33 AM EST Narrative Resulting Agency Comment Spec In Lab Delroy Chu MD BLOOD BANK PRODUCT O RDERABLES Performing Organization Address [facility] Co de Phone Number CERDENISE BOWENENNIUM * EKG 12 Lead (08/30/2015 1:28 AM EST) Pathologist [facility] [place] Ventricular rate 130 BPM MUSE SYSTEM Atrial Rate 144 BPM MUSE SYSTEM QRS Duration 100 ms MUSE SYSTEM Q-T Interval 322 ms MUSE SYSTEM QTC Calculated (Bezet) 473 ms MUSE SYSTEM Calculated R [place] 84 degrees MUSE SYSTEM Calculated T [place] 48 degrees MUSE SYSTEM INTERPRETATION Atrial fibrillation [...] Chu MD ECG ORDERABLES Performing Organization Address [facility]/[place] de Phone Number MUSE SYSTEM * (ABNORMAL) Differential, Manual (08/30/2015 1:25 AM EST) Pathologist [facility] [place] Neutrophil % Manual 78 % CERNER MILLENNIUM [...] MD HEMATOLOGY ORDERABLE S Performing Organization Address [place]/[facility] Co de Phone Number CERNER MILLENNIUM * Gold Tube HOLD (08/30/2015 1:25 AM EST) Pathologist [facility] [place] Gold Hold Sample in lab. CERNER MILLENNIUM Blood specimen (specimen) Venous Draw / Unknown 08/30/2015 1:25 AM EST 08/30/2015 1:32 AM EST Delroy Chu MD CHEMISTRY ORDERABLES Performing Organization Address [place]/[facility] Co de Phone Number CERDENISE BOWENENNIUM * (ABNORMAL) Basic Metabolic Panel (non-fasting) (08/30/2015 1:25 AM EST) Pathologist [facility] [place] Glucose 122 65 - 199 mg/dL CERNER MILLENNIUM Comment:Diabetes: >=200 mg/d L plus symptoms Blood Urea Nitrogen 14 10 - 20 mg/dL CERNER MILLENNIUM Creatinine 0.91 0.80 - 1.50 mg/dL CERNER MILLENNIUM Comment: Please note that the pediatric reference intervals supplied above were not validated at [facility]. Results from pediatric patients should be interpreted [...] the following links into your internet browser. [email or web address] Blood specimen (specimen) Venous Draw / Unknown 08/30/2015 1:25 AM EST 08/30/2015 1:30 AM EST Narrative Resulting Agency Comment Spec In Lab Delroy Chu MD CHEMISTRY ORDERABLES CERDENISE ELYIUM * (ABNORMAL) Hemogram (08/30/2015 1:25 AM EST) [...] MD HEMATOLOGY ORDERABLE S Performing Organization Address [facility]/[place] de Phone Number MAXIMO BOWENENNIUM * Lipase (08/30/2015 1:25 AM EST) Lipase 33 0 - 60 unit/L CERNER MILLENNIUM Blood specimen (specimen) 08/30/2015 1:25 AM EST 08/30/2015 1:30 AM EST Narrative Resulting Agency Comment Spec In Lab Delroy Chu MD CHEMISTRY ORDERABLES Performing Organization Address [facility]/[place] de Phone Number MAXIMO BOWENENNIUM * (ABNORMAL) Hepatic Function Panel (08/30/2015 1:25 AM EST) Protein, Total 6.9 6.1 - 8.0 gm/dL CERNER MILLENNIUM Albumin 3.1(L) 3.2 - 5.2 gm/dL CERNER MILLENNIUM Aspartate Aminotransferase 159(H) 0 - 39 unit/L CERNER MILLENNIUM Alanine Aminotransferase 167(H) 0 - 55 unit/L CERNER MILLENNIUM Alkaline Phosphatase 254(H) 40 - 120 unit/L CERNER MILLENNIUM Bilirubin, Total 4.1(H) 0.2 - 1.3 mg/dL CERNER MILLENNIUM Bilirubin, Direct 3.7(H) 0.0 - 0.3 mg/dL CERNER MILLENNIUM Blood specimen (specimen) 08/30/2015 1:25 AM EST 08/30/2015 1:30 AM EST Narrative Resulting Agency Comment Spec In Lab Delroy Chu MD CHEMISTRY ORDERABLES Performing Organization Address [place]/[facility]/[place] de Phone Number MAXIMO NERI * (ABNORMAL) Lactate, whole blood, send to lab (08/30/2015 1:25 AM EST) Lactate WB 3.2(H) 0.5 - 2.2 mmol/L [facility] Blood specimen (specimen) 08/30/2015 1:25 AM EST 08/30/2015 1:30 AM EST Narrative Resulting Agency Comment Spec In Lab Delryo Chu MD CHEMISTRY ORDERABLES Performing Organization Address [facility] Phone Number MAXIMO ENRI * APTT (08/30/2015 1:25 AM EST) Partial Thromboplastin Time 33 25 - 35 sec [facility] Comment: Recommended therapeutic PTT range for full dose unfractionated heparin is 80-114 seconds. Blood specimen (specimen) 08/30/2015 1:25 AM EST 08/30/2015 1:30 AM EST Narrative Resulting Agency Comment Spec In Lab Delroy Chu MD HEMATOLOGY ORDERABLE S Performing Organization Address [facility] Phone Number MAXIMO NERI * (ABNORMAL) Prothrombin Time (08/30/2015 1:25 AM EST) Prothrombin Time 26.1(H) 12.0 - 15.0 sec [facility]DENISE BOWENBAN[facility]ENTEROLIVIA Comment: Transfusion Committee Guidelines: INR less than 2.0, PTT less than OR equal to 43.5 seconds, or Fibrinogen greater than or equal to 100 mg/dl indicate adequate procoagulant activity for hemostasis in patients without underlying bleeding disorders. International Normalization Ratio 2.3(H) 0.9 - 1.1 [facility] NERI Blood specimen (specimen) 08/30/2015 1:25 AM EST 08/30/2015 1:30 AM EST Narrative Resulting Agency Comment Spec In Lab Delroy Chu MD HEMATOLOGY ORDERABLE S Performing Organization Address [facility] Phone Number CERNER MILLENNIUM * Film Library- Storage only DX Chest (08/29/2015 12:05 AM EST) Narrative User, Raad Transmittal - 08/29/2015 10:42 PM EST See PACS for result report. Marla May MD [facility] FILM LIBRARY ORD ERABLES * Film Library- Storage Only CT Abdomen & Pelvis (08/29/2015 12:00 AM EST) Narrative User, Raad Transmittal - 08/29/2015 10:38 PM EST See PACS for result report. Marla May MD [facility] FILM LIBRARY ORD ERABLES documented in this encounter Visit Diagnoses Not on filedocumented in this encounter Admitting Diagnoses Diagnosis Cholangitis documented in this encounter Active and Recently [...] hours., Routine 2032 (Given - Provider: Florinda Peralta, JACOB) 031 (Given - Provider: Sarah Conner, JACOB)0914 (Given - Provider: Hira Mandujano, JACOB) allopurinol (ZYLOPRIM) tablet 300 mg (CANCELED) 300 mg, Oral, DAILY, First dose on Fri08/30/15 at 1400, Until Discontinued, Routine 0818 (Given - Provider: Zahra Conway, JACOB) 0812 (MAR Hold - Provider: Admin Adt - Reason: Transfer to a Procedural area)0900 (Automatically Held - Provider: Admin Adt)1418 (MAR Unhold - Provider: Admin Adt) 0914 (Given - Provider: Hira Mandujano, RN) ampicillin-sulbactam (UNASYN) 3 g vial attach to sodium chloride 0.9% 100 mL Mini-Bag Plus (CANCELED) 3 g, Intravenous, EVERY 6 HOURS SCHEDULED, First dose on Fri08/30/15 at 0107, Until Discontinued, Administer over 30 Minutes, Indication for (Active or Suspected): GI/Intra-abdominal 0520 (Given - Provider: Makenzie Penaloza, RN)1231 (Given - Provider: Zahra Conway, JACOB)1802 (Given - Provider: Zahra Conway, JACOB) 0143 (Given - Provider: Yolanda Lujan, JACOB)0638 (Given - Provider: Yolanda Lujan RN)0812 (NOV Hold - Provider: Admin Adt - Reason: Transfer to a Procedural area)1200 (Automatically Held - Provider: Admin Adt)1400 (Automatically Held - Provider: Admin Adt)1418 (NOV Unhold - Provider: Admin Adt)2019 (Given - Provider: Florinda Peralta RN) ampicillin-sulbactam (UNASYN) 3 g vial attach to sodium chloride 0.9% 100 mL Mini-Bag Plus (CANCELED) 3 g, Intravenous, EVERY 6 HOURS SCHEDULED, 4 doses, First dose (after last modification) on 09/02/15 at 0200, Last dose on 09/02/15 at 2000, Administer over 30 Minutes, Indication for (Active or Suspected): GI/Intra-abdominal 0300 (Given - Provider: Sarah Conner RN)0911 (Given - Provider: Hira Mandujano, JACOB) atorvastatin (LIPITOR) tablet 80 mg (CANCELED) 80 mg, Oral, EVERY EVENING, First dose on Fri08/30/15 at 1700, Until Discontinued, Routine 1800 (Given - Provider: Zahra Conway RN) 0812 (NOV Hold - Provider: Admin Adt - Reason: Transfer to a Procedural area)1418 (NOV Unhold - Provider: Admin Adt)1801 (Given [...] 0900, Until Discontinued, Oral route preferred, Routine 0818 (Given - Provider: Zahra Conway RN)2208 (Given [...] Routine 0818 (Given - Provider: Zahra Conway RN)2210 (Given - Provider: Yolanda Lujan RN) 0812 (NOV Hold - Provider: Admin Adt - Reason: Transfer to a Procedural area)09 (Automatically Held - Provider: Admin Adt)1418 (NOV Unhold - Provider: Admin Adt)2015 (Given - Provider: Florinda Peralta, JACOB) 0913 (Given - Provider: Hira Mandujano, JACOB) ibuprofen (ADVIL;MOTRIN) tablet 600 mg (CANCELED) 600 mg, Oral, EVERY 6 HOURS, First dose on Fri09/01/15 at 2100, Until Discontinued, Routine 2032 (Given - Provider: Florinda Peralta, JACOB) 0315 (Given - Provider: Sarah Conner, JACOB)0914 (Given - Provider: Hira Mandujano RN) ipratropium-albuterol (DUONEB) 0.5 mg-3 mg(2.5 mg base)/3 mL nebulizer solution 3 mL (COMPLETED) 3 mL, Nebulization, ONCE, 1 dose, On Fri09/01/15 at 0715, Routine 0715 (Given - Provider: Yolanda Lujan RN) ipratropium-albuterol (DUONEB) 0.5 mg-3 mg(2.5 mg base)/3 mL nebulizer solution 3 mL (CANCELED) 3 mL, Nebulization, EVERY 4 HOURS, First dose on Fri09/01/15 at 1315, Until Discontinued, Routine 1315 (Not Given - Provider: Elmo Peralta JACKSPOOLER - Reason: See comment - Comment: Albuterol given)1612 (Given - Provider: Kate Lamar RN)1999 (Not Given - Provider: Suma Esparza RN - Reason: See comment - Comment: Medication due while in ICU too close now to the 2400 administration) 0052 (Given - Provider: Suma Esparza, JACOB)0400 (Not Given - Provider: Sarah Conner RN - Reason: Patient/family refused)0914 (Given - Provider: Hira Mandujano, JACOB)1229 (Given - Provider: Hira Mandujano, JACOB) lisinopril (PRINIVIL;ZESTRIL) tablet 20 mg (CANCELED) 20 mg, Oral, DAILY, First dose on Fri08/30/15 at 0900, Until Discontinued, Routine 0818 (Given - Provider: Zahra Conway RN) 0812 (NOV Hold - Provider: Admin Adt - Reason: Transfer to a Procedural area)0900 (Automatically Held - Provider: Admin Adt)141 (NOV Unhold - Provider: Admin Adt) 09 (Given - Provider: Hira Mandujano, JACOB) meTOPROLOL tartrate (LOPRESSOR) tablet 50 mg (CANCELED) 50 mg, Oral, 2 TIMES DAILY, First dose on Fri08/30/15 at 0900, Until Discontinued, Routine 0818 (Given - Provider: Zahra Conway RN)220 (Given - Provider: Yolanda Lujan, JACOB) 08 (NOV Hold - Provider: Admin Adt - Reason: Transfer to a Procedural area)09 (Automatically Held - Provider: Admin Adt)141 (NOV Unhold - Provider: Admin Adt)2015 (Given - Provider: Florinda Peralta RN) 09 (Given - Provider: Hira Mandujano RN) polyethylene [...] Conway RN)1501 (Given - Provider: Zahra Conway RN)220 (Given - Provider: Yolanda Lujan, JACOB) 0812 (NOV Hold - Provider: Admin Adt - Reason: Transfer to a Procedural area)0900 (Automatically Held - Provider: Admin Adt)141 (NOV Unhold - Provider: Admin Adt)154 (Given - Provider: Kate Lamar RN)2026 (Given - Provider: Florinda Peralta RN) 0913 (Given - Provider: Hira Mandujano RN) senna (SENOKOT) tablet 8.6 mg (CANCELED) 8.6 mg, Oral, 2 TIMES DAILY, First dose on Fri09/01/15 at 2100, Until Discontinued, Routine 0052 (Given - Provider: Suma Esparza, JACOB - Comment: medication not available administered when med arrived)0914 (Not Given - Provider: Hira Mandujano RN - Reason: Patient/family refused) sodium chloride 0.9 % flush 5 mL (CANCELED) 5 mL, Intravenous, 2 TIMES DAILY, First dose on Fri08/30/15 at 0245, Until Discontinued, Recovery (Recovery-Hospital Unit), Routine 0818 (Not Given - Provider: Zahra Conway, JACOB - Reason: Order parameters not met - Comment: infusing)2210 (Given - Provider: Yolanda Lujan RN) 0900 (Not Given - Provider: Fernando Thomas RN - Reason: Transfer to a Procedural area)2016 (Given - Provider: Florinda Peralta RN) 0914 (Given - Provider: Hira Mandujano RN) Continuous Medication Order 08/31/2015 09/01/2015 09/02/2015 lactated ringers infusion (CANCELED) 50 mL/hr, Intravenous, CONTINUOUS, Starting on Fri08/30/15 at 0615, Until Fri08/31/15 at 1006, Recovery (Recovery-Hospital Unit) 0246 (New Bag - Provider: Makenzie Penaloza, JACOB)1000 (Stopped - Provider: Zahra Conway RN) lactated ringers infusion (CANCELED) 50 mL/hr, Intravenous, CONTINUOUS, Starting on Fri09/01/15 at 0000, Until Fri09/01/15 at 1807 0017 (New Bag - Provider: Yolanda Lujan, JACOB)0812 (NOV Hold - Provider: Admin Adt - Reason: Transfer to a Procedural area)1418 (NOV Unhold - Provider: Admin Adt)1447 (New Bag - Provider: Lolita Jackson, JACOB) PRN Medication Order 08/31/2015 09/01/2015 09/02/2015 BUpivacaine (PF) (MARCAINE) 0.25 % (2.5 mg/mL) injection (CANCELED) ONCE PRN, Starting on Fri09/01/15 at 1210, Until Fri09/01/15 at 1412, Intra-Operative (Intra-Procedure), Routine 1210 (Given - Provider: Mary Chambers MD) HYDROmorphone (DILAUDID) injection 0.2-0.4 mg (CANCELED) 0.2-0.4 mg, Intravenous, EVERY 2 HOURS PRN, Starting on Fri09/01/15 at 1525, Until Fri09/01/15 at 2022, Pain, for SEVERE pain (7-10), Give 0.2mg for pain 1-6, give 0.4mg for pain 7-10, Routine 1544 (Given - Provider: Kate Lamar RN) HYDROmorphone (DILAUDID) tablet 2-6 mg 2-6 mg, Oral, EVERY 4 HOURS PRN, Starting on Fri09/01/15 at 2022, Until Fri09/02/15 at 1544, Pain, Give 2 mg for pain scale 1-3, 4 mg for pain scale 4-6, and 6 mg for pain scale 7-10. May medicate again in 30 minutes if pain unrelieved up to a maximum dose of 6 mg., Routine 2230 (Given - Provider: Shyann Esparza RN) No Frequency Medication Order 08/31/2015 09/01/2015 09/02/2015 albuterol (PROVENTIL) 2.5 mg /3 mL (0.083 %) nebulizer solution (COMPLETED) 1 dose, Starting on Fri09/01/15 at 1246, Until Fri09/01/15 at 1255, ELMO PERALTA: cabinet override 1255 (Given - Provider: Steffanie Peralta RCP) furosemide (LASIX) 10 mg/mL injection (COMPLETED) 1 dose, Starting on Fri09/01/15 at 1242, Until Fri09/01/15 at 1244, FERNANDO THOMAS: cabinet override 1244 (Given - Provider: Kenneth Thomas RN) furosemide (LASIX) 10 mg/mL injection (COMPLETED) 1 dose, Starting on Fri09/01/15 at 1255, Until Fri09/01/15 at 1256, FERNANDO THOMAS: cabinet override 1256 (Given - Provider: Cede pati R H Avola, RN) Linked Groups Order Group 1: famotidine (PEPCID) tablet 20 mg (CANCELED)Jump to med 20 mg, Oral, 2 TIMES DAILY, First dose on Fri08/30/15 at 0900, Until Discontinued, Oral route preferred, Routine Or famotidine (PEPCID) injection 20 mg (CANCELED) 20 mg, Intravenous, 2 TIMES DAILY, First dose on Fri08/30/15 at 0900, Until Discontinued, Routine documented in this encounter Care Teams Sidehand Relationship Specialty Start Date End Date Cherise Staples MD [address] [place] [address] PCP - General 07/31/10 10/04/19 documented as of this encounter
--- OUTSIDE RECORDS SUMMARY | 2024-08-20 06:24 | XMS_ITS | Encounter Summary ---
Author Organization [place] [address] Care Team Providers Care Oil Well Engineer Name Role Phone Cherise Staples MD Primary Care Provider [phone] Reason for Visit * Auth/Cert - Closed Specialty Diagnoses / Procedures Referred By Carla soto Referred To Contact Diagnoses Cholecystitis Pain Atrial fibrillation, unspecified cholangoangitis Procedures ERCP Referral ID Status Reason Start Date Expiration Date Visits Re quested Visits Authorized [id number] Closed 1 1 Encounter Details Date Type Department Care Team (Late st Contact Info) Description 08/30/2015 4:41 PM EST Anesthesia [place] [address] Faiza Hebert MD [facility] [place] [address] Emmanuel Ulrich MD [facility] [address] [place] [address] Anesthesia Record Procedure Summary Procedure Name Responsible Anesthesiologist Anesthesia Start Time Anesthesia Stop Time ERCP (WRVU 5.85) (Trunk) Faiza Hebert MD 08/30/15 1641 08/30/15 1806 Events Date Time Event Comment 08/30/2015 1641 AN Verify 1641 Start 1641 An Start Data 1646 An Induction 1655 An Intubation 1655 Quick Note Airway manageme nt as follows: -No premedication. After adequate preoxygenation, low dose propofol bolus along with slow up-titration of inhaled sevoflurane w/ assisted spontaneous ventilation. -videolaryngoscopy w/ CMac confirmed adequate view; blade then withdrawn. -administration of propofol and succinylcholine; ventilation assisted until paralytic took effect, followed by intubation w/ CMac. Grade 1 view. 1656 Anesthesia Ready 1699 Procedure Start 170 174 Extubation/LMA Out Extubated w/o event to FM at 6L. HOB elevated, good TV. Pt awake and following commands! 175 an stop data 1804 Recovery or ICU Handoff Cecelia ent care was transferred to the destination unit staff after review of the patient's medical history, current anesthetic/surgical status and plan, according to the Provider Handoff Checklist. Pt awake, alert and comfortable. 1805 Stop Meds Name Total Propofol 240 mg Succinylcholine 200 mg PHENYLephrine 480 mcg Esmolol 30 mg Furosemide 20 mg Lactated Ringers 700 mL * Agents Name O2 Air N2O Sevoflurane (et) Isoflurane (et) * Blood No blood administrations on file. Lines, Drains, and Airways Type Details Placement Removal Wound 09/11/14; leg; ulceration, venous; existed prior to admission; LDA not present upon assessment; 11/02/20; 0944 09/11/14 0000 by Zaira Bates RN 11/02/20 0944 by April Tarango, RN (RETIRED) Peripheral IV Line - Single Lumen 08/30/15; 0041; median cubital vein right (antecubital fossa); [id number] catheter system; 22 gauge; inserted at outside facility; 08/30/15; 185308/30/15 0041 by Lolita Elliott, RN 08/30/151853 by Marium Ordoñez, RN ETT ETT Type: Cuffed, Or al; ETT Size: 8 mm; Indirect: Video; Notes: Stylette, Troop Elev., Pre-O2; Attempts: 1; Laryngoscopy Grade: 1; ETT Placement Verified By: Auscultation, Capnometry, Visual; Secured at Teeth: 23 cm; Inserted by: Franky; Removal Date: 08/30/15; Removal Time: 174708/30/151654 by Solomon Wilkins MD 08/30/15 1748 by Delroy Vazquez CRNA (RETIRED) Peripheral IV Line - Single Lumen 08/30/15; 171; metacarpal vein right (top of hand); [id number] catheter system; 16 gauge; Franky; Per MD order; 09/02/15; 1316 08/30/15 1715 by Solomon Wilkins MD 09/02/15 1316 by Hira Mandujano RN Urethral Catheter 08/30/15; 1725; Physician order; Physician order; indwelling double lumen catheter; 100% silicone; 14; inserted at this facility; 1; 5; 10; (Under general anesthesia); drainage bag to dependent drainage; 09/02/15; 1032 08/30/15 1725 by Viviana Laurent RN 09/02/15 1032 by Sourav Tucker RN documented in this encounter Social History Tobacco [...] OR Notes * Anesthesia Postprocedure Evaluation - Faiza Hebert MD - 08/30/2015 8:19 PM EST [facility] Department of Anesthesiology Post-procedure Note Patient: Jaime Crouch Procedure Summary Date Anesthesia Start Anesthesia Stop Room / Location 08/30/15 1641 1806 [facility] OR [facility] MAIN OR; [facility] ENDO [facility] END[facility]COPY Procedure Diagnosis Surgeon Responsible Provider ERCP (N/A Trunk); ERCP (N/A Trunk) No diagnosis on file. Nick Broussard MD Peters, Julia C, MD (cholangoangitis; cholangoangitis) Last (1hr) Vitals: BP 124/64 mmHg (08/30/151944) Temp 37 ??C (98.6 ??F) (08/30/151944) Pulse 114 (08/30/151944) Resp 22 (08/30/151944) SpO2 96 % (08/30/151944) Patient Location: PACU/[facility] Level of Consciousness: Awake and Alert Pain Management: Satisfactory Analgesia PONV: None Cardiovascular Status: At Baseline Respiratory Status: At Baseline Postoperative Fluid Status: Intravascular EUvolemia Possible Anesthetic Complications: NONE apparent at time of evaluation Final Primary Anesthesia Type: General (The anesthetic type performed was the same as planned.) Comments: * Anesthesia Preprocedure Evaluation - Solomon Wilkins - 08/30/2015 3:35 PM EST Pre-Anesthesia Evaluation for: Jaime Crouch a 69 y.o. male. Procedure(s): ERCP Patient Active Problem List Diagnosis ??? Morbid obesity ??? Hypertension (HTN) ??? CAD ??? Nonsustained ventricular tachycardia ??? Hypertension ??? Suspected cholecystitis vs cholangitis S/p sphincerotomy - consider elective choly as outpatient ??? Atrial fibrillation S/p Vit K at [facility] - INR sub therapeutic - on lovenox [...] ERCP performed by Nick Broussard MD at [facility] END[facility]COPY History Substance Use Topics ??? Smoking status: Former Smoker ??? Smokeless tobacco: Never Used ??? Alcohol Use: Yes Comment: varies on kind, drinks maybe once a week\ History Drug Use No No Known Allergies Medications: MAR and/or home medications have been reviewed. Physical Exam: Filed Vitals: 08/30/15 1449 BP: 119/60 Pulse: 98 Temp: 37 ??C (98.6 ??F) Resp: 20 Body mass index is 54.98 kg/(m^2). Height: 177.8 cm (5' 10) Weight - Scale: (!) 173.8 kg (383 lb 2.6 oz) Airway Assessment: Mallampati: III TM distance: >3 FB Neck ROM: full Cardiovascular Assessment: Rhythm: regular Rate: normal Pulmonary Assessment: breath sounds clear to auscultation Dental Assessment: Misc Assessment: IV access: Peripheral line Anesthesia Plan: ASA 3 General, with a(n) intravenous induction 69 y.o. year old afib (on couamdin), HTN, HLD, CAD s/p stenting to LAD, presenting w/ cholangitis who is scheduled for ERCP. Labs notable for WBC 25.7, INR 2.3 (currently receiving FFP; will recheck INR prior to proceeding per GI), K 4.0 Prior ERCP and sphincterotomy in September 2014 -- difficult to mask ventilate (w/ OPA), difficult but successful intubation w/ CMAC. Prior easy mask, Gr1 with Glidescope. Plan GETA, maintain spontaneous ventilation - CMAC look w/ sevo; backup LMA / FOB intubation or awake FOB intubation. Region - Other Informed Consent: Anesthetic plan and risks discussed with patient. Plan discussed with attending. PAT Staff Note documented in this encounter Plan of Treatment Not on file documented as of this encounter Visit Diagnoses Not on filedocumented in this encounter Administered Medications Inactive Administered Medications - up to 3 most recent administrations Medication Order MAR Action Action Date Dose Rate Site esmolol (BREVIBLOC) injection PRN, Starting on Fri08/30/15 at 1743, Until Fri08/30/15 at 1806, Anesthesia Intra-op, Routine Given 08/30/2015 5:43 PM EST 30 mg furosemide (LASIX) injection PRN, Starting on Fri08/30/15 at 1740, Until Fri09/04/15 at 0801, Anesthesia Intra-op, Routine Given 09/01/2015 11:59 AM EST 10 mg Given 08/30/2015 5:40 PM EST 20 mg lactated ringers infusion CONTINUOUS PRN, Starting on Fri08/30/15 at 1640, Until Fri08/30/15 at 1806, Anesthesia Intra-op New Bag 08/30/2015 4:40 PM EST PHENYLephrine HCl in NS (PF) (INDIRA-SYNEPHRINE) 0.8 mg/10 mL (80 mcg/mL) multi-dose injection Syrg PRN, Starting on Fri08/30/15 at 1711, Until Fri08/30/15 at 1806, Anesthesia Intra-op, Routine Given 08/30/2015 5:46 PM EST 160 mcg Given 08/30/2015 5:11 PM EST 160 mcg Given 08/30/2015 5:06 PM EST 160 mcg propofol (DIPRIVAN) 10 mg/mL bolus injection (Anesthesia) PRN, Starting on Fri08/30/15 at 1646, Until Fri08/30/15 at 1806, Anesthesia Intra-op Given 08/30/2015 4:53 PM EST 20 0 mg Given 08/30/2015 4:46 PM EST 40 mg succinylcholine (ANECTINE) injection PRN, Starting on Fri08/30/15 at 1654, Until Fri08/30/15 at 1806, Anesthesia Intra-op, Routine Given 08/30/2015 4:54 PM EST 200 mg documented in this encounter Care Teams Oil Well Engineer Relationship Specialty Start Date End Date Cherise Staples MD [address] [place] [address] PCP - General 07/31/10 10/04/19 documented as of this encounter
--- OUTSIDE RECORDS SUMMARY | 2024-08-20 06:24 | XMS_ITS | Encounter Summary ---
Author Organization [facility] [place] [address] Care Team Providers Care Electrical Technician Name Role Phone Cherise Staples MD Primary Care Provider [phone] Reason for Visit * Reason Comments Abdominal Pain * Auth/Cert - Closed Specialty Diagnoses / Procedures Referred By Carla soto Referred To Contact Diagnoses Cholecystitis Pain Atrial fibrillation, unspecified cholangoangitis Procedures ERCP Referral ID Status Reason Start Date Expiration Date Visits Re quested Visits Authorized [id number] Closed 1 1 Encounter Details Date Type Department Care Team (Late st Contact Info) Description 09/01/2015 7:30 AM EST - 09/01/2015 10:49 AM EST Surgery [place] [address] Jay Chambers MD [facility] [place] [address] LAPAROSCOPIC CHOLECYSTECTOMY (WRVU 10.47) Social History Tobacco Use Types Packs/Day Years [...] Jaime Crouch Patient Age: 69 y.o. Language: Turkish Race: White Ethnicity: Not nor Admit date: 08/30/2015 Discharge date and time: 09/02/2015 Attending Physician: Delroy Chu MD Discharge Physician: Delroy Chu MD Inpatient Provider Contact Information: For questions regarding this document or issues relating to this hospitalization on the Medical Service, please contact your inpatient physician through the [facility] [employer] . Issues afterhours and on weekends will [...] prompted him to see care at the [facility] ED. There he was noted to have a WBC of 18, elevated LFTs, amylase and lipase. A CT scan was obtained which noted multiple gallstones. Pt was transferred to [facility] for further evaluation and care. Of note [...] 101.3 F. The number for questions is [phone] before 5 PM weekdays and [phone] after 5 PM and weekends. Pain Medication: [...] will be mailed to you. Please call [phone] (clinic number for appointments) to confirm date and time of your appointment if you do not receive your apointment in 3 weeks. General Instructions None Provider Contact Information: CHERISE STAPLES MD [address] / [facility] [address] Discharge References/Attachments None documented in this encounter [...] 101.3 F. The number for questions is [phone] before 5 PM weekdays and [phone] after 5 PM and weekends. Pain Medication: [...] will be mailed to you. Please call [phone] (clinic number for appointments) to confirm date [...] 1240: ICU bed requested through [facility] [employer] 1252: Hold LR at [address] [...] placed on Boarder Status awaiting Transport. 1402: Designer/Writer called to supply additional resources to transport [...] of two midnights or is on the [facility] inpatient only procedure list (status C) due [...] of two midnights or is on the [facility] inpatient only procedure list (status C) due [...] needs CM available Annemarie Diop RN CCM #[id number] * Howard Moya MD - 08/31/2015 10:37 AM EST Gastroenterology & Hepatology Progress Note Jaime Gallardoaio 1945 [id number] PCP: CHERISE STAPLES MD Date of Admission: [...] ERCP performed by Nick Broussard MD at [facility] ENDOSCOPY Medications Scheduled Meds: ??? ampicillin-sulbactam [...] the OR tomorrow. Howard Moya MD, MS manager heart failure Section of Gastroenterology and Hepatology * Makenzie [...] 08/30/2015 8:00 PM EST Post op check aJime Crouch is a 69 y.o. male sp [...] 7:07 PM EST 1899- Received report from [facility]. Pt awake alert VSS, moving all [...] EST Office of Care Management (OCM) / Medical Insurance Verifier(CM)/ Initial Assessment Discussed patient with Provider Team and with staff nurse midwife. Reviewed record. REASON for HOSPITALIZATION: patient admitted on 08/29/15 in transfer from [facility] ED. Patient presented to ED with RUQ [...] Lili Peters DO S/p Vit K at [facility] - INR sub therapeutic - on lovenox bridge until INR 2-3 Previous Version TOM on CPAP G47.33 09/09/2014 Morbid obesity E66.01 09/20/2014 Hypertension (HTN) I10 09/20/2014 CAD I25.10 09/20/2014 Nonsustained ventricular tachycardia I47.2 09/20/2014 PREVIOUS FUNCTIONAL STATUS: independent CURRENT FUNCTIONAL STATUS: ambulating with assistance SOCIAL / FAMILY SUPPORTS: Leah, family/friends ADVANCE DIRECTIVES: On file here at [facility] HEALTH /PRESCRIPTION COVERAGE: Medicare (parts A and B) and [place] BC/BS [employer] CURRENT HOME/COMMUNITY SERVICES/EQUIPMENT: DME: Patient uses CPAP at home PATENT PROSECUTION PARALEGAL REFERRAL: not needed at this time PRIMARY CARE PHYSICIAN: CHERISE STAPLES MD [address] / [place] [address] DISCHARGE NEEDS: Discharge needs not known at [...] on CT scan. He was admitted to [facility] in September of this year for cholangitis [...] ??? ASCVD (arteriosclerotic cardiovascular disease) 1993 first [place] 1992, stent to LAD in 2006 ??? [...] ERCP performed by Nick Broussard MD at [facility] ??? Pro ercp,diagnostic N/A 08/30/2015 ERCP performed by Nick Broussard MD at [facility] MAIN OR Allergies: No Known Allergies [...] %] ABG: No results for input(s): PHART, ITO3BMM, PO2ART, SRO1OCI in the last 168 hours. Physical Exam: [...] -- 33 No results for input(s): PHART, HOO1XIQ, PO2ART, CII9LEA, BEART in the last 168 hours. ECG [...] tylenol and dilaudid IV, will add dilaudid funeral service manager if needed or if diet is advanced [...] Murray MD MPH General Surgery PGY-1 [id number] ER * Rudi Reardon DO - 09/01/2015 7:52 [...] from the original note were not included. [facility] Department of Surgery History of Present Illness: [...] prompted him to see care at the [facility] ED. There he was noted to have a WBC of 18, elevated LFTs, amylase and lipase. A CT scan was obtained which noted multiple gallstones. Pt was transferred to [facility] for further evaluation and care. Of note pt was admitted in September of 2014 for cholangitis, at that timehe was treated with a 7 day course of zosyn, and underwent an ERCP with sphincterotomy. Past Medical History: Past Medical History Diagnosis Date ??? Kidney stone ??? Hypertension ??? ASCVD (arteriosclerotic cardiovascular disease) 1993 first [place] 1992, stent to LAD in 2006 ??? [...] pain resolved on the trip down from [facility], no pain on exam at present ?? [...] and nowwith second episode of potential cholangitis D. Adrien Chu MD documented in this encounter Nursing [...] a 69 y.o. male who presents to [facility] with increasing abdominal pain History of Present [...] Chambers MD - 09/01/2015 12:30 PM EST [facility] Operative Note Patient Name: Jaime Crouch : [id number] MR#: [id number] Case Date: 09/01/2015 Surgeon: Surgeon(s) and Role: * Jay Chambers MD - Primary * Reardon, Rudi Archer DO - Resident-Surgeon Marcelino Preoperative diagnosis: acute [...] Operative Note Patient Name: Jaime Crouch : [id number] MR#: [id number] Case Date: 09/01/2015 Surgeon: Surgeon(s) and Role: [...] replaced after wound cleansed with dermal wound grain cleaner and transfer operator. Pulses +1 doppler, +2 pitting edema bilateral LE. No telemetry events as reported, metop. And dilt. Admin per schedule. PLAN MOVING FORWARD: Pt scheduled for 729 OR cholecystectomy 09/01 INDIVIDUALIZED FALL PREVENTION: Assistance: Strait cane Supervision: Stand by Surveillance: Telemetry, Paula wound care CPG OUTCOME EVALUATION: Patient Vitals [...] Nutrition Interventions: refer to dietitian Current bed: [facility] AIR Assessment: Venous stasis ulceration with his [...] 2. Apply Mepilex Transfer over wound (PS# [id number]) 3. Cover with ABD Pad or burn [...] A referral can be made by calling [phone] or by placing a [facility] wound referral. Discussed plan with: /JODY/PA: Dr. Heredia RN: Zahra Please contact PAUL JOHNSON RN on pager [phone] or the wound care team at [phone] or pager [phone] with skin and wound care concerns or [...] left leg is leaking brown/yellow fluid, wound technology sales consultant at bedside, newbandage applied A/ox4, waiting [...] CONSULTATION Initial Consult Note Jaime Crouch 1945 [id number] Requesting Provider: Team Surgery REASON FOR CONSULTATION [...] occurred less frequently. When he presented to [facility] he wasfound to have WBC 18, elevated [...] ??? ASCVD (arteriosclerotic cardiovascular disease) 1993 first [place] 1993, stent to LAD in 2006 ??? [...] this admission. Continue amp/sul. Sarika Saini MD Admissions Directorchild care Section of Gastroenterology [place] [address] * Consult Note - Evette Young RCP [...] hospital, diltizem IV push was given at [facility]. Based on his heart rate jumping [...] AM EST Patient arrives by EMS from [facility] after having had abdominal pain this morning that increased as theday went on. Patient was diagnosed with cholecystitis at [facility] and comes here tonight to consult with surgery. A/Ox4, respirations even and unlabored. documented in this encounter Plan of Treatment Pending Results Name Type Priority Associated Diagnoses Date /Time Transfuse thawed plasma Blood Bank Routine 08/30/2015 2:49 PM EST FILM LIBRARY-FLUORO OR [id number] ONL Imaging Routine 08/30/2015 5:4 7 PM EST Scheduled Orders Name Type Priority Associated Diagnoses Orde r Schedule FILM LIBRARY-FLUORO OR [id number] ONL Imaging Routine Once PRN (f or Radiant use) for 1 Occurrences starting 08/30/2015 until 08/30/2015 FILM LIBRARY-FLUORO OR [id number] ONL Imaging Routine Once PRN (f or Radiant use) for 1 Occurrences starting 09/01/2015 until 09/01/2015 documented as of this encounter Procedures Procedure Name Priority Date/Time Associated Diagnosis Comments LAB SCAN 09/03/2015 12:00 AM EST LINER MACHINE OPERATOR HELPER SCAN 09/03/2015 12:00 AM EST ECG SCAN [...] 9:34 AM EST DIFFERENTIAL, AUTOMATED Routine 08/31/20 9:34 AM EST LACTATE, WHOLE BLOOD STAT 08/31/2015 9:34 AM EST PHOSPHORUS Routine 08/31/2015 9:34 AM EST LACTATE, WHOLE BLOOD STAT 08/31/2015 4:37 AM EST LACTATE, WHOLE BLOOD STAT 08/30/2015 8:59 PM EST PROTHROMBIN TIME STAT 08/30/2015 6:30 PM EST PREPARE THAWED PLASMA STAT 08/30/2015 4:35 PM EST PROTHROMBIN TIME STAT 08/30/2015 3:55 PM EST LACTATE, WHOLE BLOOD STAT 08/30/2015 3:00 PM EST PREPARE THAWED PLASMA Routine 08/30/2015 3:00 PM EST TRANSFUSE THAWED PLASMA Routine 08/30/20 1:27 PM EST ECHO COMPLETE Routine 08/30/2015 [...] SCAN EXT O RDR/RSLT * SCAN DOC: LINER MACHINE OPERATOR HELPER (09/03/2015 12:00 AM EST) Anatomical Region Laterality Modality Other Scanning Provider MEDIA MGR SCAN EXT O RDR/RSLT * SCAN DOC: ECG (09/03/2015 12:00 AM EST) Scanning Provider MEDIA MGR SCAN EXT O RDR/RSLT * (ABNORMAL) CMP w/fasting Glucose (09/02/2015 2:10 AM EST) [facility] Glucose Fasting 151(H) 65 - 99 mg/dL [facility] Comment: ?Fasting* Glucose Interpretive Criteria Normal [...] of Diabetes Mellitus, Position Statement from the [place] [employer]. ??Diabetes Care, Volume 33, Supplement 1, Sep 2009 Blood Urea Nitrogen 16 10 - 20 mg/dL CERNER MILLENNIUM Creatinine 0.90 0.80 - 1.50 mg/dL CERNER MILLENNIUM Comment: Please note that the pediatric reference intervals supplied above were not validated at [facility]. Results from pediatric patients should be interpreted [...] the following links into your internet browser. [email or web address] Blood specimen (specimen) 09/02/2015 2:10 AM EST 09/02/2015 2:23 AM EST Narrative Resulting Agency Comment Spec In Lab Delroy Chu MD CHEMISTRY ORDERABLES Performing Organization Address [facility] de Phone Number CERNER MILLENNIUM * (ABNORMAL) Phosphorus (09/02/2015 2:10 AM EST) Phosphorus 2.4(L) 2.5 - 4.5 mg/dL CERNER MILLENNIUM Blood specimen (specimen) 09/02/2015 2:10 AM EST 09/02/2015 2:23 AM EST Narrative Resulting Agency Comment Spec In Lab Delroy Chu MD CHEMISTRY ORDERABLES Performing Organization Address [facility] de Phone Number CERNER MILLENNIUM * (ABNORMAL) [...] PM EST 09/01/2015 1:01 PM EST Delroy Cuh MD POINT OF CARE TEST O RDERABLES CERNER MILLENNIUM * (ABNORMAL) BLOOD GAS 2 ARTERIAL (09/01/2015 12:06 PM EST) pH, Arterial 7.34(L) 7.35 - 7.45 CERNE R MILLENNIUM PCO2, Arterial 52(Critic al) 35 - 45 mmHg CERNER MILLENNIUM Comment:Noted by instrument/control technician. PO2, Arterial 271(H) 85 - 104 mmHg [...] Report (09/01/2015 11:56 AM EST) Final Diagnosis [id number] ? Location: [facility]; [facility]; A The signing pathologist has (i) [...] fundus. (R2) ??kef/shb 09/05/2015 11:[address] [facility] GALLBLADDER STRUCTURE / Unknown 09/01/2015 11:56 AM EST 09/01/2015 11:56 AM EST Jay Chambers MD PATHOLOGY/CYTOLOGY ORDERABLES MAXIMO NERI [facility] [place] [address] * Specimen to Pathology (surgical or derm) (09/01/2015 11:56 AM EST) AP Specimen 09/01/2015 11:5 6 AM EST 09/01/2015 11:56 AM EST Narrative [facility] - 09/01/2015 11:56 AM EST [...] MD POINT OF CARE TEST O RDERABLES [facility] * (ABNORMAL) CMP w/fasting Glucose (09/01/2015 [...] of Diabetes Mellitus, Position Statement from the [place] [employer]. ??Diabetes Care, Volume 33, Supplement 1, Sep 2009 Blood Urea Nitrogen 15 10 - 20 mg/dL CERNER MILLENNIUM Creatinine 0.86 0.80 - 1.50 mg/dL CERNER MILLENNIUM Comment: Please note that the pediatric reference intervals supplied above were not validated at [facility]. Results from pediatric patients should be interpreted [...] the following links into your internet browser. [email or web address] Blood specimen (specimen) 09/01/2015 4:01 AM EST 09/01/2015 4:06 AM EST Narrative Resulting Agency Comment Spec In Lab Delroy Chu MD CHEMISTRY ORDERABLES Performing Organization Address [facility] de Phone Number CERNER MILLENNIUM * (ABNORMAL) Phosphorus (09/01/2015 4:01 AM EST) Phosphorus 2.0(L) 2.5 - 4.5 mg/dL CERNER MILLENNIUM Blood specimen (specimen) 09/01/2015 4:01 AM EST 09/01/2015 4:06 AM EST Narrative Resulting Agency Comment Spec In Lab Delroy Chu MD CHEMISTRY ORDERABLES Performing Organization Address [facility] de Phone Number CERNER MILLENNIUM * (ABNORMAL) [...] of variation 17.9(H) 10.9 - 14.4 % [facility] Mean Platelet Volume 9.0 9.0 - 12.0 fL [facility] Blood specimen (specimen) 09/01/2015 4:01 AM EST 09/01/2015 4:06 AM EST Narrative Resulting Agency Comment Spec In Lab Delroy Chu MD HEMATOLOGY ORDERABLE S Performing Organization Address [facility] de Phone Number [facility] * (ABNORMAL) Hepatitis A Antibody, Total (08/31/2015 3:38 PM EST) Pathologist [facility] Hepatitis A ANTIBODY, TOTAL Positive(A ) Negative [facility] Blood specimen (specimen) 08/31/2015 3:38 PM EST 08/31/2015 3:45 PM EST Narrative Resulting Agency Comment Spec In Lab Delroy Chu MD CHEMISTRY ORDERABLES Performing Organization Address [facility] de Phone Number [facility] * Hepatitis C RNA, quantitative, PCR (08/31/2015 3:38 PM EST) Pathologist [facility] HCV Viral Load <15 IU/mL [facility] HCV Viral Load Result: <15 IU/mL [...] This assay is being performed in the [facility] Molecular Pathology Laboratory. Logan Khan, Ph.D. Director, Molecular Pathology [facility] Comment: [VERIFIED DATE]09.05.15 Verified By:Katy Monzon (Electronic Signature) Blood specimen (specimen) 08/31/2015 3:38 PM EST 09/04/2015 10:42 AM EST Narrative Resulting Agency Comment Spec In Lab Delroy Chu MD MOLECULAR ORDERABLES Performing Organization Address [facility] de Phone Number [facility] * Hepatitis A Antibody, IgM (08/31/2015 3:38 PM EST) Hepatitis A Antibody, IgM Negative Negative [facility] Blood specimen (specimen) 08/31/2015 3:38 PM EST 08/31/2015 3:45 PM EST Narrative Resulting Agency Comment Spec In Lab Delroy Chu MD CHEMISTRY ORDERABLES Performing Organization Address [facility] Phone Number [facility] * Hepatitis B Surface Antibody (08/31/2015 3:38 PM EST) Hepatitis B Surface Antibody Positive [facility] Comment: Expected Results: Vaccinated: Positive Unvaccinated: [...] Chu MD CHEMISTRY ORDERABLES Performing Organization Address [facility] Phone Number [facility] * Hepatitis B Surface Antigen (08/31/2015 3:38 PM EST) Hepatitis B Surface Antigen Negative Negative [facility] Blood specimen (specimen) 08/31/2015 3:38 PM EST 08/31/2015 3:45 PM EST Narrative Resulting Agency Comment Spec In Lab Delroy Chu MD CHEMISTRY ORDERABLES Performing Organization Address [facility] Phone Number [facility] * Hepatitis C Antibody (08/31/2015 3:38 PM EST) Hepatitis C Antibody Negative Negative [facility] Blood specimen (specimen) 08/31/2015 3:38 PM EST 08/31/2015 3:45 PM EST Narrative Resulting Agency Comment Spec In Lab Delroy Chu MD CHEMISTRY ORDERABLES Performing Organization Address [facility] Phone Number [facility] * Lactate, whole blood, send to lab (08/31/2015 3:38 PM EST) Lactate WB 1.4 0.5 - 2.2 mmol/L [facility] Blood specimen (specimen) 08/31/2015 3:38 PM EST 08/31/2015 3:45 PM EST Narrative Resulting Agency Comment Spec In Lab Delroy Chu MD CHEMISTRY ORDERABLES Performing Organization Address [facility] Phone Number [facility] * Blood culture (08/31/2015 9:45 AM EST) Blood Culture No growth at 5 days. [facility] Blood specimen (specimen) STRUCTURE OF RIGHT HAND / Unknown 08/31/2015 9:45 AM EST 08/31/2015 10:16 AM EST Comment:DRAW BLOOD CULTURES BEFORE ADMINISTERING ANTIBIOTICS Narrative Resulting Agency Comment Spec In Lab Delroy Chu MD MICROBIOLOGY - BLOOD ORDERABLES Performing Organization Address [facility] Phone Number [facility] * (ABNORMAL) CMP w/fasting Glucose (08/31/2015 9:35 AM EST) Glucose Fasting 115(H) 65 - 99 mg/dL [facility] Comment: ?Fasting* Glucose Interpretive Criteria Normal [...] of Diabetes Mellitus, Position Statement from the [place] [employer]. ??Diabetes Care, Volume 33, Supplement 1, Sep 2009 Blood Urea Nitrogen 18 10 - 20 mg/dL CERNER MILLENNIUM Creatinine 0.92 0.80 - 1.50 mg/dL CERNER MILLENNIUM Comment: Please note that the pediatric reference intervals supplied above were not validated at [facility]. Results from pediatric patients should be interpreted [...] the following links into your internet browser. [email or web address] Blood specimen (specimen) STRUCTURE OF LEFT HAND / Unknown Venous Draw / Unknown 08/31/2015 9:35 AM EST 08/31/2015 10:14 AM EST Comment:Draw blood Cultures before administering antibiotics Narrative Resulting Agency Comment Spec In Lab Delroy Chu MD CHEMISTRY ORDERABLES Performing Organization Address [facility] Co de Phone Number [...] Chu MD CHEMISTRY ORDERABLES Performing Organization Address [facility] de Phone Number MAXIMO NERI * Gold Tube HOLD (08/31/2015 9:35 AM EST) Gold Hold Sample in lab. MAXIMO NERI Blood specimen (specimen) Venous Draw / Unknown 08/31/2015 9:35 AM EST 08/31/2015 10:13 AM EST Comment:Draw blood Cultures before administering antibiotics Delroy Chu MD CHEMISTRY ORDERABLES Performing Organization Address [facility] de Phone Number MAXIMO NERI * [...] MD HEMATOLOGY ORDERABLE S Performing Organization Address [facility] de Phone Number [facility] * Lactate, whole blood, send to lab (08/31/2015 9:34 AM EST) Lactate WB 1.1 0.5 - 2.2 mmol/L [facility] Blood specimen (specimen) 08/31/2015 9:34 AM EST 08/31/2015 9:41 AM EST Narrative Resulting Agency Comment Spec In Lab Delroy Chu MD CHEMISTRY ORDERABLES Performing Organization Address [facility] de Phone Number [facility] * (ABNORMAL) Phosphorus (08/31/2015 9:34 AM EST) Phosphorus 2.3(L) 2.5 - 4.5 mg/dL [facility] Blood specimen (specimen) 08/31/2015 9:34 AM EST 08/31/2015 9:57 AM EST Narrative Resulting Agency Comment Spec In Lab Delroy Chu MD CHEMISTRY ORDERABLES Performing Organization Address [facility] de Phone Number [facility] * (ABNORMAL) BMP w/fasting Glucose (08/31/2015 9:34 AM EST) Glucose Fasting 120(H) 65 - 99 mg/dL [facility] Comment: ?Fasting* Glucose Interpretive Criteria Normal [...] of Diabetes Mellitus, Position Statement from the [place] [employer]. ??Diabetes Care, Volume 33, Supplement 1, Sep 2009 Blood Urea Nitrogen 18 10 - 20 mg/dL CERNER MILLENNIUM Creatinine 0.91 0.80 - 1.50 mg/dL CERNER MILLENNIUM Comment: Please note that the pediatric reference intervals supplied above were not validated at [facility]. Results from pediatric patients should be interpreted [...] the following links into your internet browser. [email or web address] Blood specimen (specimen) 08/31/2015 9:34 AM EST 08/31/2015 9:57 AM EST Narrative Resulting Agency Comment Spec In Lab Delroy Chu MD CHEMISTRY ORDERABLES [facility] * (ABNORMAL) Hemogram (08/31/2015 9:34 AM [...] Lab Delroy Chu MD HEMATOLOGY ORDERABLE S [facility] * Lactate, whole blood, send to lab (08/31/2015 4:37 AM EST) Lactate WB 1.5 0.5 - 2.2 mmol/L [facility] Blood specimen (specimen) 08/31/2015 4:37 AM EST 08/31/2015 4:46 AM EST Narrative Resulting Agency Comment Spec In Lab Delroy Chu MD CHEMISTRY ORDERABLES [facility] * Lactate, whole blood, send to lab (08/30/2015 8:59 PM EST) Lactate WB 1.1 0.5 - 2.2 mmol/L MAXIMO ELYIUM Blood specimen (specimen) 08/30/2015 8:59 PM EST 08/30/2015 9:04 PM EST Narrative Resulting Agency Comment Spec In Lab Delroy Chu MD CHEMISTRY ORDERABLES Performing Organization Address [facility] Phone Number MAXIMO NERI * (ABNORMAL) Prothrombin [...] MD HEMATOLOGY ORDERABLE S Performing Organization Address [facility] Phone Number MAXIMO NERI * Prepare thawed plasma (08/30/2015 4:35 PM EST) Dispensed? Yes MAXIMO NERI Blood specimen (specimen) 08/30/2015 4:35 PM EST 08/30/2015 4:34 PM EST Narrative Resulting Agency Comment Spec In Lab Delroy Chu MD BLOOD BANK PRODUCT O RDERABLES Performing Organization Address [facility] de Phone Number MAXIMO NERI * [...] MD HEMATOLOGY ORDERABLE S Performing Organization Address [facility] Co de Phone Number MAXIMO NERI * Prepare thawed plasma (08/30/2015 3:00 PM EST) Dispensed? No MAXIMO NERI Blood specimen (specimen) 08/30/2015 3:00 PM EST 08/30/2015 2:57 PM EST Narrative Resulting Agency Comment Spec In Lab Delroy Chu MD BLOOD BANK PRODUCT O RDERABLES Performing Organization Address [facility] Co de Phone Number MAXIMO NERI * Lactate, whole blood, send to lab (08/30/2015 3:00 PM EST) Lactate WB 1.4 0.5 - 2.2 mmol/L MAXIMO NERI Blood specimen (specimen) 08/30/2015 3:00 PM EST 08/30/2015 3:07 PM EST Narrative Resulting Agency Comment Spec In Lab Delroy Chu MD CHEMISTRY ORDERABLES Performing Organization Address [facility] de Phone Number MAXIMO NERI * Transfuse [...] 11:54 AM EST Procedure: ?Transthoracic Echocardiogram Patient: ?WILLA WILLIS ?(Age): 1945(69y) Med Rec#: ? [id number] ?Sex: ?M ? Site Loc: ? [facility] ?Ht / Wt: ??178(cm)/186(kg) Pt. Loc: ?Adult Floor ? BSA: ?2.83 Study Date: ?? 08/30/2015 ?Pt. Type: Inpatient Tape: ? Referring: JOHN EGAN T Referring: Delroy Chu Reading: Jaime Nguyen ([id number]) Program Planner: Tamia Haines Diagnosis: *ICD-10-PCS Encounter for other preprocedural examination (Z01.818) *ICD-10-PCS Unspecified atrial fibrillation (I48.91) CPT Codes: *Echo Full (54161) *Spectral Doppler (17807) *Color Doppler (85009) Rhythm: ? A-Fib BP: ? 117/66 SUMMARY: [...] ? Mid-Inferior ?Normal ? Mid-Inferoseptal ?Normal ? [place]-Septal ? Normal ? [place]-Anterior ? Normal ? [place]-Lateral ?Normal ? [place]-Inferior ? Normal ? [place]-Tip ?Normal ? This report has been electronically signed by: Jaime Nguyen MD ? 08/30/2015 11:54:10 Images reviewed and interpretation verified [facility] Cardiac Ultrasound Laboratory Procedure Note Jaime Nguyen MD - 08/30/2015 Procedure: Transthoracic Echocardiogram Patient: WILLA WILLIS (Age): 1945(69y) Med Rec#: [id number] Sex: M [place] [facility] Ht / Wt: 178(cm)/186(kg) Pt. Loc: Adult Floor BSA: 2.83 Study Date: 08/30/2015 Pt. Type: Inpatient Tape: Referring: JOHN EGAN T Referring: Delroy Chu Reading: Jaime Nguyen ([id number]) Program Planner: Tamia Haines Diagnosis: *ICD-10-PCS Encounter for other preprocedural examination (Z01.818) *ICD-10-PCS Unspecified atrial fibrillation (I48.91) CPT Codes: *Echo Full (47358) *Spectral Doppler (08242) *Color Doppler (59597) Rhythm: A-Fib BP: 117/66 SUMMARY: 1. The [...] Normal Mid-Posterolateral Normal Mid-Inferior Normal Mid-Inferoseptal Normal [place]-Septal Normal [place]-Anterior Normal [place]-Lateral Normal [place]-Inferior Normal [place]-Tip Normal This report has been electronically signed by: Jaime Nguyen MD 08/30/2015 11:54:10 Images reviewed and interpretation verified [facility] Cardiac Ultrasound Laboratory Delroy Chu MD ECHO ORDERABLES * Antibody screen (08/30/2015 9:11 AM EST) Ab Screen Interp Negative [facility] Expires at [id number] on: 09/02/2015 [facility] Blood specimen (specimen) 08/30/2015 9:11 AM EST 08/30/2015 10:23 AM EST Narrative Resulting Agency Comment Spec In Lab Delroy Chu MD BLOOD BANK LAB ORDER JESSIE Performing Organization Address City/[facility] Co de Phone Number [facility] * ABO/Rh Typing (08/30/2015 9:11 AM EST) [facility] ABORH Type O Pos [facility] Blood specimen (specimen) 08/30/2015 9:11 AM EST 08/30/2015 10:23 AM EST Narrative Resulting Agency Comment Spec In Lab Delroy Chu MD BLOOD BANK LAB ORDER JESSIE Performing Organization Address City/[facility] Co de Phone Number [facility] * Lactate, whole blood, send to lab (08/30/2015 9:11 AM EST) [facility] Lactate WB 1.4 0.5 - 2.2 mmol/L [facility] Comment:Results rechecked-mk f Blood specimen (specimen) 08/30/2015 9:11 AM EST 08/30/2015 9:15 AM EST Narrative Resulting Agency Comment Spec In Lab Delroy Chu MD CHEMISTRY ORDERABLES Performing Organization Address City/[facility]/ZIP Co de Phone Number [facility] * Prepare thawed plasma (08/30/2015 7:30 AM EST) Pathologist [facility] Dispensed? Yes CERNER MILLENNIUM Blood specimen (specimen) 08/30/2015 7:30 AM EST 08/30/2015 7:33 AM EST Narrative Resulting Agency Comment Spec In Lab Delroy Chu MD BLOOD BANK PRODUCT O RDERABLES Performing Organization Address [facility] Co de Phone Number CERDENISE BOWENENNIUM * EKG 12 Lead (08/30/2015 1:28 AM EST) Pathologist [facility] Ventricular rate 130 BPM MUSE SYSTEM Atrial Rate 144 BPM MUSE SYSTEM QRS Duration 100 ms MUSE SYSTEM Q-T Interval 322 ms MUSE SYSTEM QTC Calculated (Bezet) 473 ms MUSE SYSTEM Calculated R Pinson 84 degrees MUSE SYSTEM Calculated T Pinson 48 degrees MUSE SYSTEM INTERPRETATION Atrial fibrillation [...] Chu MD ECG ORDERABLES Performing Organization Address [facility] de Phone Number MUSE SYSTEM * (ABNORMAL) Differential, Manual (08/30/2015 1:25 AM EST) Pathologist [facility] Neutrophil % Manual 78 % CERNER MILLENNIUM [...] MD HEMATOLOGY ORDERABLE S Performing Organization Address City/[facility] Co de Phone Number CERNER MILLENNIUM * Gold Tube HOLD (08/30/2015 1:25 AM EST) Pathologist [facility] Gold Hold Sample in lab. CERNER MILLENNIUM Blood specimen (specimen) Venous Draw / Unknown 08/30/2015 1:25 AM EST 08/30/2015 1:32 AM EST Delroy Chu MD CHEMISTRY ORDERABLES Performing Organization Address City/[facility] Co de Phone Number CERDENISE BOWENENNIUM * (ABNORMAL) Basic Metabolic Panel (non-fasting) (08/30/2015 1:25 AM EST) Pathologist [facility] Glucose 122 65 - 199 mg/dL CERNER MILLENNIUM Comment:Diabetes: >=200 mg/d L plus symptoms Blood Urea Nitrogen 14 10 - 20 mg/dL CERNER MILLENNIUM Creatinine 0.91 0.80 - 1.50 mg/dL CERNER MILLENNIUM Comment: Please note that the pediatric reference intervals supplied above were not validated [place] [facility]. Results from pediatric patients should be interpreted [...] the following links into your internet browser. [email or web address] Blood specimen (specimen) Venous Draw / Unknown [...] MD HEMATOLOGY ORDERABLE S Performing Organization Address [facility] de Phone Number MAXIMO BOWENENNIUM * Lipase (08/30/2015 1:25 AM EST) Lipase 33 0 - 60 unit/L CERNER MILLENNIUM Blood specimen (specimen) 08/30/2015 1:25 AM EST 08/30/2015 1:30 AM EST Narrative Resulting Agency Comment Spec In Lab Delroy Chu MD CHEMISTRY ORDERABLES Performing Organization Address [facility] de Phone Number MAXIMO BOWENENNIUM * (ABNORMAL) [...] Chu MD CHEMISTRY ORDERABLES Performing Organization Address City/[facility] de Phone Number MAXIMO NERI * (ABNORMAL) Lactate, whole blood, send to lab (08/30/2015 1:25 AM EST) Lactate WB 3.2(H) 0.5 - 2.2 mmol/L [facility] Blood specimen (specimen) 08/30/2015 1:25 AM EST 08/30/2015 1:30 AM EST Narrative Resulting Agency Comment Spec In Lab Delroy Chu MD CHEMISTRY ORDERABLES Performing Organization Address [facility] Phone Number MAXIMO NERI * APTT (08/30/2015 1:25 AM EST) Partial Thromboplastin Time 33 25 - 35 sec [facility] Comment: Recommended therapeutic PTT range for full dose unfractionated heparin is 80-114 seconds. Blood specimen (specimen) 08/30/2015 1:25 AM EST 08/30/2015 1:30 AM EST Narrative Resulting Agency Comment Spec In Lab Delroy Chu MD HEMATOLOGY ORDERABLE S Performing Organization Address [facility] Phone Number MAXIMO NERI * (ABNORMAL) Prothrombin Time (08/30/2015 1:25 AM EST) Prothrombin Time 26.1(H) 12.0 - 15.0 sec [facility]ENT[facility]IV[facility] Comment: Transfusion Committee Guidelines: INR less than 2.0, PTT less than OR equal to 43.5 seconds, or Fibrinogen greater than or equal to 100 mg/dl indicate adequate procoagulant activity for hemostasis in patients without underlying bleeding disorders. International Normalization Ratio 2.3(H) 0.9 - 1.1 [facility] NERI Blood specimen (specimen) 08/30/2015 1:25 AM EST 08/30/2015 1:30 AM EST Narrative Resulting Agency Comment Spec In Lab Delroy Chu MD HEMATOLOGY ORDERABLE S Performing Organization Address [facility] Phone Number CERNER MILLENNIUM * Film Library- Storage only DX Chest (08/29/2015 12:05 AM EST) Narrative User, Raad Transmittal - 08/29/2015 10:42 PM EST See PACS for result report. Marla May MD [facility] FILM LIBRARY ORD ERABLES * Film Library- Storage Only CT Abdomen & Pelvis (08/29/2015 12:00 AM EST) Narrative User, Raad Transmittal - 08/29/2015 10:38 PM EST See PACS for result report. Marla May MD [facility] FILM LIBRARY ORD ERABLES documented in this encounter Visit Diagnoses Not on filedocumented in this encounter Admitting Diagnoses Diagnosis Cholangitis documented in this encounter Administered Medications Inactive Administered Medications - up to 3 most recent administrations Medication Order MAR Action Action Date Dose Rate Site BUpivacaine (PF) (MARCAINE) 0.25 % (2.5 mg/mL) injection ONCE PRN, Starting on Fri09/01/15 at 1210, Until Fri09/01/15 at 1412, Intra-Operative (Intra-Procedure), Routine Given 09/01/2015 12:10 PM EST 62.5 mg 19- Surgical Site documented in this encounter Active and Recently [...] 2032 (Given - Provider: Florinda Peralta RN) 311 (Given - Provider: Sarah Conner RN)0914 (Given [...] Adt)1418 (NOV Unhold - Provider: Admin Adt) 0914 (Given [...] RN) 0143 (Given - Provider: Yolanda Lujan, AJCOB)0638 (Given - Provider: Yolanda Lujan RN)0812 (NOV [...] Provider: Admin Adt)1801 (Given - Provider: Kate Lamar, JACOB) 0158 (Given - Provider: Suma Esparza, JACOB - Comment: medication not available, administered when pharmacy sent it)0600 (Given - Provider: Suma Esparza, JACOB)1229 (Given - Provider: Hira Mandujano, JACOB) docusate [...] 0913 (Given - Provider: Hira Mandujano RN) ibuprofen (ADVIL;MOTRIN) tablet 600 mg (CANCELED) 600 mg, Oral, EVERY 6 HOURS, First dose on Fri09/01/15 at 2100, Until Discontinued, Routine 2032 (Given - Provider: Florinda Peralta RN) 0315 (Given - Provider: Sarah Conner RN)0914 (Given - Provider: Hira Mandujano RN) ipratropium-albuterol [...] - Reason: See comment - Comment: Albuterol given)161 (Given - Provider: Kate Lamar RN)1999 (Not Given - Provider: Suma Esparza RN - Reason: See comment - Comment: Medication due while in ICU too close now to the 2400 administration) 005 (Given - Provider: Suma Esparza RN)0400 (Not [...] Adt)1418 (NOV Unhold - Provider: Admin Adt) 09 (Given - Provider: Hira Mandujano RN) meTOPROLOL tartrate (LOPRESSOR) tablet 50 mg (CANCELED) 50 mg, Oral, 2 TIMES DAILY, First dose on Fri08/30/15 at 0900, Until Discontinued, Routine 0818 (Given - Provider: Zahra Conway RN)220 (Given - Provider: Yolanda Lujan RN) 08 (NOV Hold - Provider: Admin Adt - Reason: Transfer to a Procedural area)09 (Automatically Held - Provider: Admin Adt)141 (MAR Unhold - Provider: Admin Adt)2015 (Given - Provider: Florinda Peralta RN) 0913 (Given - Provider: Hira Mandujano, JACOB) polyethylene glycol (MIRALAX) packet 17 g (CANCELED) 17 g, Oral, DAILY, First dose on Fri09/01/15 at 2045, Until Discontinued, Routine 2044 (Not Given - Provider: Florinda Peralta RN - Reason: Patient/family refused) 0913 (Given - Provider: Hira Mandujano, JACOB) potassium Citrate (UROCIT) tablet SR TbSR 20 [...] Admin Adt)1418 (NOV Unhold - Provider: Admin Adt)1543 (Given - Provider: Kate Lamar RN)2027 (Given - Provider: Florinda Peralta, JACOB) 0913 (Given - Provider: Hira Mandujano, JACOB) senna (SENOKOT) tablet 8.6 mg (CANCELED) 8.6 [...] Routine 0818 (Not Given - Provider: Zahra Conway RN - Reason: Order parameters not met - Comment: infusing)2210 (Given - Provider: Yolanda Lujan RN) 0900 (Not Given - Provider: Fernando Thomas RN - Reason: Transfer to a Procedural area)2016 (Given - Provider: Florinda Peralta, JACOB) 0914 (Given - Provider: Hira Mandujano, JACOB) Continuous Medication Order 08/31/2015 09/01/2015 09/02/2015 lactated [...] Procedural area)1418 (MAR Unhold - Provider: Admin Adt)1447 (New Bag [...] on Fri09/01/15 at 1525, Until Fri09/01/15 at 202, Pain, for SEVERE pain (7-10), Give 0.2mg for pain 1-6, give 0.4mg for pain 7-10, Routine 1544 (Given - Provider: Kate Lamar, JACOB) HYDROmorphone (DILAUDID) tablet 2-6 mg 2-6 mg, [...] Routine 2230 (Given - Provider: Shyann Esparza, JACOB) No Frequency Medication Order 08/31/2015 09/01/2015 09/02/2015 albuterol (PROVENTIL) 2.5 mg /3 mL (0.083 %) nebulizer solution (COMPLETED) 1 dose, Starting on Fri09/01/15 at 1246, Until Fri09/01/15 at 1255, ELMO PERALTA: cabinet override 1255 (Given - Provider: Steffanie Peralta, CERTIFIED LACTATION EDUCATOR) furosemide (LASIX) 10 mg/mL injection (COMPLETED) 1 dose, Starting on 12/25/15 at 1242, Until Fri09/01/15 at 1244, FERNANDO THOMAS: cabinet override 1244 (Given - Provider: Kenneth Thomas RN) furosemide (LASIX) 10 mg/mL injection (COMPLETED) 1 dose, Starting on Fri09/01/15 at 1255, Until Fri09/01/15 at 1256, FERNANDO THOMAS: cabinet override 1256 (Given - Provider: Kenneth [...] Routine documented in this encounter Care Teams Electrical Technician Relationship Specialty Start Date End Date Cherise Staples MD [address] [place] [address] PCP - General 07/31/10 10/04/19 documented as of this encounter
--- OUTSIDE RECORDS SUMMARY | 2024-08-20 06:24 | XMS_ITS | Encounter Summary ---
Author Organization [facility] Address [facility] [place] [address] Care Team Providers Care Manager Agriculture Name Role Phone Cherise Staples MD Primary Care Provider [phone] Reason for Visit * Auth/Cert - Closed Specialty Diagnoses / Procedures Referred By Carla soto Referred To Contact Diagnoses Cholecystitis Pain Atrial fibrillation, unspecified cholangoangitis Procedures ERCP Referral ID Status Reason Start Date Expiration Date Visits Re quested Visits Authorized [id number] Closed 1 1 Encounter Details Date Type Department Care Team (Latest Contact Info) Description 08/30/2015 - 08/30/2015 12:21 AM [facility] Hospital Encounter Radiology Library at [facility] [place] [address] Nick Broussard MD [facility] [place] [address] Discharge Disposition: Home Social History Tobacco Use [...] as of this encounter Plan of Treatment Pending Results Name Type Priority Associated Diagnoses Date /Time FILM LIBRARY-FLUORO OR [id number] ONL Imaging Routine 08/30/2015 5:4 7 PM EST documented as of this encounter Visit Diagnoses Not on filedocumented in this encounter Care Teams Manager Agriculture Relationship Specialty Start Date End Date Cherise Staples MD [address] [place] [address] PCP - General 07/31/10 10/04/19 documented as of this encounter
--- OUTSIDE RECORDS SUMMARY | 2024-08-20 06:25 | XMS_ITS | Encounter Summary ---
Author Organization [facility] [place] [address] Care Team Providers Care Prevention Specialist Name Role Phone Cherise Staples MD Primary Care Provider [phone] Reason for Visit * Reason Comments Abdominal Pain * Auth/Cert - Closed Specialty Diagnoses / Procedures Referred By Carla soto Referred To Contact Diagnoses Cholecystitis Pain Atrial fibrillation, unspecified cholangoangitis Procedures ERCP Referral ID Status Reason Start Date Expiration Date Visits Re quested Visits Authorized [id number] Closed 1 1 Encounter Details Date Type Department Care Team (Late st Contact Info) Description 08/30/2015 - 09/02/2015 Surgery [place] [address] Nick Broussard MD [facility] [place] [address] ERCP (VU 5.85) Social History Tobacco Use [...] Jaime Crouch Patient Age: 69 y.o. Language: Romanian Race: White Ethnicity: Not nor Admit date: 08/30/2015 Discharge date and time: 09/02/2015 Attending Physician: Delroy Chu MD Discharge Physician: Delroy Chu MD Inpatient Provider Contact Information: For questions regarding this document or issues relating to this hospitalization on the Medical Service, please contact your inpatient physician through the [facility] Artist'S Model . Issues afterhours and on weekends will [...] prompted him to see care at the [facility] ED. There he was noted to have a WBC of 18, elevated LFTs, amylase and lipase. A CT scan was obtained which noted multiple gallstones. Pt was transferred to [facility] for further evaluation and care. Of note [...] 101.3 F. The number for questions is [phone] before 5 PM weekdays and [phone] after 5 PM and weekends. Pain Medication: [...] will be mailed to you. Please call [phone] (clinic number for appointments) to confirm date and time of your appointment if you do not receive your apointment in 3 weeks. General Instructions None Provider Contact Information: CHERISE STAPLES MD BOX [facility] / [facility] [address] Discharge References/Attachments None documented in this encounter [...] 101.3 F. The number for questions is [phone] before 5 PM weekdays and [phone] after 5 PM and weekends. Pain Medication: [...] will be mailed to you. Please call [phone] (clinic number for appointments) to confirm date [...] 1240: ICU bed requested through Katy Mendez [employer] Analyst 1252: Hold LR at [address] [...] placed on Boarder Status awaiting Transport. 1402: It Systems Analyst called to supply additional resources to transport [...] allopurinol 300 mg Oral Daily ### ??? [NOV Hold] potassium Citrate 20 mEq Oral TID ### ??? lactated ringers infusion 1,000 mL 1,000 mL Intravenous Continuous ### ??? [NOV Hold] lactated ringers infusion 50 mL/hr Intravenous Continuous ### fentaNYL Citrate (PF) OR fentaNYL Citrate (PF), HYDROmorphone, nalOXone, ondansetron, promethazine, prochlorperazine, BUpivacaine (PF), sodium chloride 0.9 %, lidocaine, nalOXone, [NOV Hold] ondansetron OR [NOV Hold] ondansetron, [NOV Hold] HYDROmorphone Last value Range last 24 hrs [...] of two midnights or is on the [facility] inpatient only procedure list (status C) [...] of two midnights or is on the [facility] inpatient only procedure list (status C) [...] & Hepatology Progress Note Jaime Crouch 1945 [id number] PCP: CHERISE STAPLES MD Date of Admission: [...] ERCP performed by Nick Broussard MD at [facility] ENDOSCOPY Medications Scheduled Meds: ??? ampicillin-sulbactam 3 [...] the OR tomorrow. Howard Moya MD, MS picker feeder Section of Gastroenterology and Hepatology * Makenzie [...] 7:07 PM EST 1899- [facility]. Pt awake alert VSS, moving all [...] EST Office of Care Management (OCM) / Product Picker(CM)/ Initial Assessment Discussed patient with Provider Team and with chief of staff. Reviewed record. REASON for HOSPITALIZATION: patient admitted on 08/29/15 in transfer from [facility] ED. Patient presented to ED with RUQ [...] Lili Peters DO S/p Vit K at [facility] - INR sub therapeutic - on lovenox bridge until INR 2-3 Previous Version TOM on CPAP G47.33 09/09/2014 Morbid obesity E66.01 09/20/2014 Hypertension (HTN) I10 09/20/2014 CAD I25.10 09/20/2014 Nonsustained ventricular tachycardia I47.2 09/20/2014 PREVIOUS FUNCTIONAL STATUS: independent CURRENT FUNCTIONAL STATUS: ambulating with assistance SOCIAL / FAMILY SUPPORTS: Leah, family/friends ADVANCE DIRECTIVES: On file here at [facility] HEALTH /PRESCRIPTION COVERAGE: Medicare (parts A and B) and [place] [employer] CURRENT HOME/COMMUNITY SERVICES/EQUIPMENT: DME: Patient uses CPAP at home PIPELINE ENGINEER REFERRAL: not needed at this time PRIMARY CARE PHYSICIAN: CHERISE STAPLES MD [address] / [facility] [address] DISCHARGE NEEDS: Discharge needs not known at [...] on CT scan. He was admitted to [facility] in September of this year for cholangitis [...] ??? ASCVD (arteriosclerotic cardiovascular disease) 1993 first [place] 1992, stent to LAD in 2006 ??? [...] ERCP performed by Nick Broussard MD at [facility] ENDOSCOPY ??? Pro ercp,diagnostic N/A 08/30/2015 ERCP performed by Nick Broussard MD at [facility] MAIN OR Allergies: No Known Allergies Home [...] %] ABG: No results for input(s): PHART, KBF5ANG, PO2ART, YSM7CKH in the last 168 hours. Physical Exam: [...] -- 33 No results for input(s): PHART, DBU7OHQ, PO2ART, BXM5IEG, BEART in the last 168 hours. ECG [...] tylenol and dilaudid IV, will add dilaudid manager of quality if needed or if diet is advanced [...] from the original note were not included. [facility] Department of Surgery History of Present [...] prompted him to see care at the [facility] ED. There he was noted to have a WBC of 18, elevated LFTs, amylase and lipase. A CT scan was obtained which noted multiple gallstones. Pt was transferred to [facility] for further evaluation and care. Of note pt was admitted in September of 2014 for cholangitis, at that timehe was treated with a 7 day course of zosyn, and underwent an ERCP with sphincterotomy. Past Medical History: Past Medical History Diagnosis Date ??? Kidney stone ??? Hypertension ??? ASCVD (arteriosclerotic cardiovascular disease) 1993 first [place] 1992, stent to LAD in 2006 ??? [...] pain resolved on the trip down from [facility], no pain on exam at present ?? [...] a 69 y.o. male who presents to [facility] with increasing abdominal pain History of Present [...] Outcome: Ongoing (Interventions Implemented as Appropriate) 09/02/15 0331 Skin Integrity Impairment, Risk/Actual Physiological Related Risk Factors (Skin Integrity Impairment, Risk/Actual) sensory impairment;tissue perfusion impairment Treatment Related Related Risk Factors (Skin Integrity Impairment, Risk/Actual) surgery Goal: Skin Integrity/Wound Healing Patient will demonstrate the desired outcomes. Outcome: Ongoing (Interventions Implemented as Appropriate) 09/02/15 0331 Skin Integrity Impairment, Risk/Actual (Adult, Obstetrics) Skin Integrity/Wound Healing making progress toward outcome * OR Attestation - Jay Chambers MD - 09/01/2015 12:44 PM EST Attestation: Case Date: 09/01/2015 I was present and I participated during the entire procedure (does not need to include opening and closing). JAY CHAMBERS MD 09/01/2015 * Op Note - Jay Chambers MD - 09/01/2015 12:30 PM EST [facility] Operative Note Patient Name: Jaime Crouch : [id number] MR#: [id number] Case Date: 09/01/2015 Surgeon: Surgeon(s) and Role: [...] Operative Note Patient Name: Jaime Crouch : [id number] MR#: [id number] Case Date: 09/01/2015 Surgeon: Surgeon(s) and Role: [...] replaced after wound cleansed with dermal wound lamp cleaner street light. Pulses +1 doppler, +2 pitting edema bilateral [...] Assessment Outcome: Ongoing (Interventions Implemented as Appropriate) 08/30/15236 Self-Care Equipment Currently Used at Home cane, [...] Outcome: Ongoing (Interventions Implemented as Appropriate) 08/30/15 023 Mutuality/Individual Preferences What anxieties, fears or concerns do you have about your health or care? is retiring, financial concerns What questions do you have about your health or care? will i be able to go home tomorrow What information would help us give you more personalized care? none Goal: Fall Prevention-Safe Patient Handling Outcome: Ongoing (Interventions Implemented as Appropriate) 08/30/15200908/31/1543508/31/155 Akanksha Fall Risk History of Falling -- [...] up 30 degrees -- -- 08/31/15 1300 Akanksha Fall Risk History of Falling -- Secondary [...] Nutrition Interventions: refer to dietitian Current bed: [facility] Assessment: Venous stasis ulceration with his left [...] 2. Apply Mepilex Transfer over wound (PS# [id number]) 3. Cover with ABD Pad or burn [...] A referral can be made by calling [phone] or by placing a [facility] wound referral. Discussed plan with: /JODY/PA: Dr. Heredia RN: Zahra Please contact PAUL JOHNSON RN on pager [phone] or the wound care team at [phone] or pager [phone] with skin and wound care concerns or [...] left leg is leaking brown/yellow fluid, wound consultant intern at bedside, newbandage applied A/ox4, waiting lab [...] CONSULTATION Initial Consult Note Jaime Crouch 1945 [id number] Requesting Provider: Team Surgery REASON FOR CONSULTATION [...] occurred less frequently. When he presented to [facility] he wasfound to have WBC 18, elevated [...] ??? ASCVD (arteriosclerotic cardiovascular disease) 1993 first [place] 1993, stent to LAD in 2006 ??? [...] this admission. Continue amp/sul. Sarika Saini MD [employer] Custodianbond clerk Section of Gastroenter[place] [address] * Consult Note - Evette Young RCP [...] hospital, diltizem IV push was given at [facility] ED. Based on his heart rate jumping [...] AM EST Patient arrives by EMS from [facility] after having had abdominal pain this morning that increased as theday went on. Patient was diagnosed with cholecystitis at [facility] and comes here tonight to consult with surgery. A/Ox4, respirations even and unlabored. documented in this encounter Plan of Treatment Pending Results Name Type Priority Associated Diagnoses Date /Time Transfuse thawed plasma Blood Bank Routine 08/30/2015 2:49 PM EST FILM LIBRARY-FLUORO OR [id number] ONL Imaging Routine 08/30/2015 5:4 7 PM EST Scheduled Orders Name Type Priority Associated Diagnoses Orde r Schedule FILM LIBRARY-FLUORO OR [id number] ONL Imaging Routine Once PRN (f or Radiant use) for 1 Occurrences starting 08/30/2015 until 08/30/2015 FILM LIBRARY-FLUORO OR [id number] ONL Imaging Routine Once PRN (f or Radiant use) for 1 Occurrences starting 09/01/2015 until 09/01/2015 documented as of this encounter Procedures Procedure Name Priority Date/Time Associated Diagnosis Comments LAB SCAN 09/03/2015 12:00 AM EST AP OPERATOR SCAN 09/03/2015 12:00 AM EST ECG SCAN [...] 08/30/2015 9:11 AM EST TYPE AND SCREEN (MC/CGP/LEONIDAS) Routine 08/30/2015 9:11 AM EST PREPARE THAWED [...] SCAN EXT O RDR/RSLT * SCAN DOC: AP OPERATOR (09/03/2015 12:00 AM EST) Anatomical Region Laterality Modality Other Scanning Provider MEDIA MGR SCAN EXT O RDR/RSLT * SCAN DOC: ECG (09/03/2015 12:00 AM EST) Scanning Provider MEDIA MGR SCAN EXT O RDR/RSLT * (ABNORMAL) CMP w/fasting Glucose (09/02/2015 2:10 AM EST) [facility] Glucose Fasting 151(H) 65 - 99 mg/dL [facility] Comment: ?Fasting* Glucose Interpretive Criteria [...] of Diabetes Mellitus, Position Statement from the [place] Diabetes Association. ??Diabetes Care, Volume 33, Supplement 1, Sep 2009 Blood Urea Nitrogen 16 10 - 20 mg/dL CERNER MILLENNIUM Creatinine 0.90 0.80 - 1.50 mg/dL CERNER MILLENNIUM Comment: Please note that the pediatric reference intervals supplied above were not validated at [facility]. Results from pediatric patients should [...] the following links into your internet browser. http://Play for Job/DHnkdep [email or web address]://Play for Job/DHMCnkf Blood specimen (specimen) 09/02/2015 2:10 AM EST 09/02/2015 2:23 AM EST Narrative Resulting Agency Comment Spec In Lab Delroy Chu MD CHEMISTRY ORDERABLES Performing Organization Address [facility] de Phone Number CERDENISE BOWENENNIUM * (ABNORMAL) Phosphorus (09/02/2015 2:10 AM EST) Phosphorus 2.4(L) 2.5 - 4.5 mg/dL CERDENISE MILLENNIUM Blood specimen (specimen) 09/02/2015 2:10 AM EST 09/02/2015 2:23 AM EST Narrative Resulting Agency Comment Spec In Lab Delroy Chu MD CHEMISTRY ORDERABLES Performing Organization Address [facility] de Phone Number CERDENISE BOWENENNIUM * (ABNORMAL) Hemogram (09/02/2015 2:10 AM EST) [...] Hemoglobin Concentration 31.7(L) 32.0 - 36.5 gm/dL MAXIMO NERI Platelet 270 145 - 370 x10(3)/mc L MAXIMO NERI RDW Standard Deviation 58.7(H) 35.0 - 46.0 fL MAXIMO NERI RDW coefficient of variation 17.7(H) 10.9 - 14.4 % MAXIMO NERI Mean Platelet Volume 9.8 9.0 - 12.0 fL MAXIMO NERI Blood specimen (specimen) 09/02/2015 2:10 AM EST [...] 45 mmHg CERNER MILLENNIUM Comment:Noted by instrument mechanic weapons system. PO2, Arterial 271(H) 85 - 104 mmHg [...] 411 CERNER MILLENNIUM Temp Art 36.6 Celsius MAXIMO NERI Blood specimen (specimen) 09/01/2015 12:06 PM EST 09/01/2015 12:06 PM EST Delroy Chu MD POINT OF CARE TEST O RDERABLES [facility] * Surgical Pathology Report (09/01/2015 11:56 AM EST) Final Diagnosis [id number] ? Location: 2WST; 0206; A The signing pathologist has (i) examined [...] fundus. (R2) ??kef/shb 09/05/2015 11:18 AM EST [facility] GALLBLADDER STRUCTURE / Unknown 09/01/2015 11:56 AM EST 09/01/2015 11:56 AM EST Jay Chambers MD PATHOLOGY/CYTOLOGY ORDERABLES [facility] [place] [address] * Specimen to Pathology (surgical or derm) (09/01/2015 11:56 AM EST) AP Specimen 09/01/2015 11:5 6 AM EST 09/01/2015 11:56 AM EST Narrative CERNER MILLENNIUM - 09/01/2015 11:56 AM EST Specimen requisition ordered. ??Separate Pathology report to follow Delroy Chu MD PATHOLOGY/CYTOLOGY O RDERABLES [facility] * (ABNORMAL) BLOOD GAS 2 ARTERIAL [...] MD POINT OF CARE TEST O RDERABLES [facility] * (ABNORMAL) CMP w/fasting Glucose [...] of Diabetes Mellitus, Position Statement from the [place] Diabetes Association. ??Diabetes Care, Volume 33, Supplement 1, Sep 2009 Blood Urea Nitrogen 15 10 - 20 mg/dL CERNER MILLENNIUM Creatinine 0.86 0.80 - 1.50 mg/dL CERNER MILLENNIUM Comment: Please note that the pediatric reference intervals supplied above were not validated at [facility]. Results from pediatric patients should [...] the following links into your internet browser. http://Play for Job/DHnkdep http://Play for Job/DHMCnkf Blood specimen (specimen) 09/01/2015 4:01 AM EST 09/01/2015 4:06 AM EST Narrative Resulting Agency Comment Spec In Lab Delroy Chu MD CHEMISTRY ORDERABLES Performing Organization Address [facility] de Phone Number CERNER ANDRÉSENNIUM * (ABNORMAL) Phosphorus (09/01/2015 4:01 AM EST) Phosphorus 2.0(L) 2.5 - 4.5 mg/dL CERNER MILLENNIUM Blood specimen (specimen) 09/01/2015 4:01 AM EST 09/01/2015 4:06 AM EST Narrative Resulting Agency Comment Spec In Lab Delroy Chu MD CHEMISTRY ORDERABLES Performing Organization Address [facility] de Phone Number CERNER MILLENNIUM * (ABNORMAL) [...] of variation 17.9(H) 10.9 - 14.4 % CERNER MILLENNIUM Mean Platelet Volume 9.0 9.0 - 12.0 fL [facility] Blood specimen (specimen) 09/01/2015 4:01 AM EST 09/01/2015 4:06 AM EST Narrative Resulting Agency Comment Spec In Lab Delroy Chu MD HEMATOLOGY ORDERABLE S Performing Organization Address [facility] Co de Phone Number [facility] * (ABNORMAL) Hepatitis A Antibody, Total (08/31/2015 3:38 PM EST) Pathologist [facility] Hepatitis A ANTIBODY, TOTAL Positive(A ) Negative [facility] Blood specimen (specimen) 08/31/2015 3:38 PM EST 08/31/2015 3:45 PM EST Narrative Resulting Agency Comment Spec In Lab Delroy Chu MD CHEMISTRY ORDERABLES Performing Organization Address [facility] de Phone Number [facility] * Hepatitis C RNA, quantitative, PCR (08/31/2015 3:38 PM EST) [facility] HCV Viral Load <15 IU/mL [facility] HCV Viral Load Result: <15 [...] This assay is being performed in the [facility] Molecular Pathology Laboratory. Logan Khan, Ph.D. Director, Molecular Pathology [facility] Comment: [VERIFIED DATE]09.05.15 Verified By:Katy Monzon (Electronic Signature) Blood specimen (specimen) 08/31/2015 3:38 PM EST 09/04/2015 10:42 AM EST Narrative Resulting Agency Comment Spec In Lab Delroy Chu MD MOLECULAR ORDERABLES Performing Organization Address [facility] Co de Phone Number [facility] * Hepatitis A Antibody, IgM (08/31/2015 3:38 PM EST) Hepatitis A Antibody, IgM Negative Negative [facility] Blood specimen (specimen) 08/31/2015 3:38 PM EST 08/31/2015 3:45 PM EST Narrative Resulting Agency Comment Spec In Lab Delroy Chu MD CHEMISTRY ORDERABLES Performing Organization Address [facility] de Phone Number [facility] * Hepatitis B Surface Antibody (08/31/2015 3:38 PM EST) Hepatitis B Surface Antibody Positive [facility] Comment: Expected Results: Vaccinated: Positive [...] Chu MD CHEMISTRY ORDERABLES Performing Organization Address [facility] de Phone Number [facility] * Hepatitis B Surface Antigen (08/31/2015 3:38 PM EST) Hepatitis B Surface Antigen Negative Negative [facility] Blood specimen (specimen) 08/31/2015 3:38 PM EST 08/31/2015 3:45 PM EST Narrative Resulting Agency Comment Spec In Lab Delroy Chu MD CHEMISTRY ORDERABLES Performing Organization Address [facility] Co de Phone Number [facility] * Hepatitis C Antibody (08/31/2015 3:38 PM EST) Hepatitis C Antibody Negative Negative [facility] Blood specimen (specimen) 08/31/2015 3:38 PM EST 08/31/2015 3:45 PM EST Narrative Resulting Agency Comment Spec In Lab Delroy Chu MD CHEMISTRY ORDERABLES Performing Organization Address [facility] de Phone Number [facility] * Lactate, whole blood, send to lab (08/31/2015 3:38 PM EST) Lactate WB 1.4 0.5 - 2.2 mmol/L [facility] Blood specimen (specimen) 08/31/2015 3:38 PM EST 08/31/2015 3:45 PM EST Narrative Resulting Agency Comment Spec In Lab Delroy Chu MD CHEMISTRY ORDERABLES Performing Organization Address [facility] de Phone Number [facility] * Blood culture (08/31/2015 9:45 AM EST) Pathologist [facility] Blood Culture No growth at 5 days. [facility] Blood specimen (specimen) STRUCTURE OF RIGHT HAND / Unknown 08/31/2015 9:45 AM EST 08/31/2015 10:16 AM EST Comment:DRAW BLOOD CULTURES BEFORE ADMINISTERING ANTIBIOTICS Narrative Resulting Agency Comment Spec In Lab Delroy Chu MD MICROBIOLOGY - BLOOD ORDERABLES Performing Organization Address [facility] de Phone Number [facility] * (ABNORMAL) CMP w/fasting Glucose (08/31/2015 9:35 AM EST) Glucose Fasting 115(H) 65 - 99 mg/dL [facility] Comment: ?Fasting* Glucose Interpretive Criteria [...] of Diabetes Mellitus, Position Statement from the [place] Diabetes [employer]. ??Diabetes Care, Volume 33, Supplement 1, Sep 2009 Blood Urea Nitrogen 18 10 - 20 mg/dL CERNER MILLENNIUM Creatinine 0.92 0.80 - 1.50 mg/dL CERNER MILLENNIUM Comment: Please note that the pediatric reference intervals supplied above were not validated at [facility]. Results from pediatric patients should [...] the following links into your internet browser. http://Play for Job/DHnkdep [email or web address]://Play for Job/[email or web address] Blood specimen (specimen) STRUCTURE OF LEFT HAND / Unknown Venous Draw / Unknown 08/31/2015 9:35 AM EST 08/31/2015 10:14 AM EST Comment:Draw blood Cultures before administering antibiotics Narrative Resulting Agency Comment Spec In Lab Delroy Chu MD CHEMISTRY ORDERABLES Performing Organization Address [facility] de Phone Number MAXIMO NERI * Amylase (08/31/2015 9:35 AM EST) Amylase 32 28 - 100 unit/L MAXIMO NERI Blood specimen (specimen) STRUCTURE OF LEFT HAND / Unknown Venous Draw / Unknown 08/31/2015 9:35 AM EST 08/31/2015 10:14 AM EST Comment:Draw blood Cultures before administering antibiotics Narrative Resulting Agency Comment Spec In Lab Delroy Chu MD CHEMISTRY ORDERABLES Performing Organization Address [facility] de Phone Number MAXIMO ELYIUM * Gold Tube HOLD (08/31/2015 9:35 AM EST) Gold Hold Sample in lab. MAXIMO NERI Blood specimen (specimen) Venous Draw / Unknown 08/31/2015 9:35 AM EST 08/31/2015 10:13 AM EST Comment:Draw blood Cultures before administering antibiotics Delroy Chu MD CHEMISTRY ORDERABLES Performing Organization Address [facility] de Phone Number MAXIMO ELYIUM * Blue Tube HOLD (08/31/2015 9:35 AM EST) Blue Hold Sample in lab. MAXIMO NERI Blood specimen (specimen) Venous Draw / Unknown 08/31/2015 9:35 AM EST 08/31/2015 10:13 AM EST Comment:Draw blood Cultures before administering antibiotics Delroy Chu MD HEMATOLOGY ORDERABLE S Performing Organization Address [facility] de Phone Number MAXIMO ELYIUM * Blood culture (08/31/2015 9:35 AM EST) Blood Culture No growth at 5 days. CERNER MILLENNIUM Blood specimen (specimen) STRUCTURE OF LEFT HAND / Unknown 08/31/2015 9:35 AM EST 08/31/2015 10:16 AM EST Comment:DRAW BLOOD CULTURES BEFORE ADMINISTERING ANTIBIOTICS Narrative Resulting Agency Comment Spec In Lab Delroy Chu MD MICROBIOLOGY - BLOOD ORDERABLES CERNER MILLENNIUM * (ABNORMAL) Differential, Automated (08/31/2015 9:34 AM [...] MD HEMATOLOGY ORDERABLE S Performing Organization Address [facility] de Phone Number [facility] * Lactate, whole blood, send to lab (08/31/2015 9:34 AM EST) Lactate WB 1.1 0.5 - 2.2 mmol/L [facility] Blood specimen (specimen) 08/31/2015 9:34 AM EST 08/31/2015 9:41 AM EST Narrative Resulting Agency Comment Spec In Lab Delroy Chu MD CHEMISTRY ORDERABLES Performing Organization Address [facility] de Phone Number [facility] * (ABNORMAL) Phosphorus (08/31/2015 9:34 AM EST) Phosphorus 2.3(L) 2.5 - 4.5 mg/dL [facility] Blood specimen (specimen) 08/31/2015 9:34 AM EST 08/31/2015 9:57 AM EST Narrative Resulting Agency Comment Spec In Lab Delroy Chu MD CHEMISTRY ORDERABLES Performing Organization Address [facility] de Phone Number [facility] * (ABNORMAL) BMP w/fasting Glucose (08/31/2015 9:34 AM EST) Glucose Fasting 120(H) 65 - 99 mg/dL [facility] Comment: ?Fasting* Glucose Interpretive Criteria [...] of Diabetes Mellitus, Position Statement from the [place] [employer]. ??Diabetes Care, Volume 33, Supplement 1, Sep 2009 Blood Urea Nitrogen 18 10 - 20 mg/dL CERNER MILLENNIUM Creatinine 0.91 0.80 - 1.50 mg/dL CERNER MILLENNIUM Comment: Please note that the pediatric reference intervals supplied above were not validated at [facility]. Results from pediatric patients should [...] the following links into your internet browser. [email or web address] [email or web address] [email or web address]://Play for Job/[facility]ONnkf Blood specimen (specimen) 08/31/2015 9:34 AM EST 08/31/2015 9:57 AM EST Narrative Resulting Agency Comment Spec In Lab Delroy Chu MD CHEMISTRY ORDERABLES CERDENISE MILLENNIUM * (ABNORMAL) Hemogram (08/31/2015 9:34 AM EST) [...] MD HEMATOLOGY ORDERABLE S MAXIMO ELYIUM * Lactate, whole blood, send to lab (08/31/2015 4:37 AM EST) Lactate WB 1.5 0.5 - 2.2 mmol/L CERDENISE ELYIUM Blood specimen (specimen) 08/31/2015 4:37 AM EST 08/31/2015 4:46 AM EST Narrative Resulting Agency Comment Spec In Lab Delroy Chu MD CHEMISTRY ORDERABLES MAXIMO ELYIUM * Lactate, whole blood, send to lab (08/30/2015 8:59 PM EST) Lactate WB 1.1 0.5 - 2.2 mmol/L CERDENISE BOWENENNIUM Blood specimen (specimen) 08/30/2015 8:59 PM EST 08/30/2015 9:04 PM EST Narrative Resulting Agency Comment Spec In Lab Delroy Chu MD CHEMISTRY ORDERABLES Performing Organization Address [facility] Phone Number MAXIMO NERI * (ABNORMAL) Prothrombin Time (08/30/2015 6:30 PM EST) Prothrombin Time 19.3(H) 12.0 - 15.0 sec JAVIERDENISE BOWENENNIUM Comment: Transfusion Committee Guidelines: INR less than 2.0, PTT less than OR equal to 43.5 seconds, or Fibrinogen greater than or equal to 100 mg/dl indicate adequate procoagulant activity for hemostasis in patients without underlying bleeding disorders. International Normalization Ratio 1.6(H) 0.9 - 1.1 MAXIMO ANDRÉSKIKEIUM Blood specimen (specimen) 08/30/2015 6:30 PM EST 08/30/2015 6:57 PM EST Narrative Resulting Agency Comment Spec In Lab Delroy Chu MD HEMATOLOGY ORDERABLE S Performing Organization Address [facility] Phone Number MAXIMO NERI * Prepare thawed plasma (08/30/2015 4:35 PM EST) Dispensed? Yes JAVIERDENISE NERI Blood specimen (specimen) 08/30/2015 4:35 PM EST 08/30/2015 4:34 PM EST Narrative Resulting Agency Comment Spec In Lab Delroy Chu MD BLOOD BANK PRODUCT O RDERABLES Performing Organization Address [facility] de Phone Number MAXIMO NERI * (ABNORMAL) Prothrombin Time (08/30/2015 3:55 PM EST) Prothrombin Time 22.2(H) 12.0 - 15.0 sec JAVIERDENISE BOWENENNIUM Comment: Transfusion Committee Guidelines: INR less than 2.0, PTT less than OR equal to 43.5 seconds, or Fibrinogen greater than or equal to 100 mg/dl indicate adequate procoagulant activity for hemostasis in patients without underlying bleeding disorders. International Normalization Ratio 1.9(H) 0.9 - 1.1 MAXIMO NEIR Blood specimen (specimen) 08/30/2015 3:55 PM EST 08/30/2015 4:06 PM EST Narrative Resulting Agency Comment Spec In Lab Delroy Chu MD HEMATOLOGY ORDERABLE S Performing Organization Address [facility] Co de Phone Number MAXIMO NERI * Prepare thawed plasma (08/30/2015 3:00 PM EST) Dispensed? No MAXIMO NERI Blood specimen (specimen) 08/30/2015 3:00 PM EST 08/30/2015 2:57 PM EST Narrative Resulting Agency Comment Spec In Lab Delroy Chu MD BLOOD BANK PRODUCT O RDERABLES Performing Organization Address [facility] Co de Phone Number MAXIMO NERI * Lactate, whole blood, send to lab (08/30/2015 3:00 PM EST) Lactate WB 1.4 0.5 - 2.2 mmol/L MAXIMO NERI Blood specimen (specimen) 08/30/2015 3:00 PM EST 08/30/2015 3:07 PM EST Narrative Resulting Agency Comment Spec In Lab Delroy Chu MD CHEMISTRY ORDERABLES Performing Organization Address [facility] Co de Phone Number MAXIMO NERI * Transfuse [...] ?RAINA WILLIS ?(Age): 1945(69y) Med Rec#: ? [id number] ?Sex: ?M ? Site Loc: ? [facility] ?Ht / Wt: ??178(cm)/186(kg) Pt. Loc: ?Adult Floor ? BSA: ?2.83 Study Date: ?? 08/30/2015 ?Pt. Type: Inpatient Tape: ? Referring: JOHN EGAN T Referring: Delroy Chu Reading: Jaime Nguyen ([id number]) Chemical Laboratory Technician: Tamia Haines Diagnosis: *ICD-10-PCS Encounter for other preprocedural examination (Z01.818) *ICD-10-PCS Unspecified atrial fibrillation (I48.91) CPT Codes: *Echo Full (57603) *Spectral Doppler (45739) *Color Doppler (18237) Rhythm: ? A-Fib BP: ? 117/66 SUMMARY: [...] ? Mid-Inferior ?Normal ? Mid-Inferoseptal ?Normal ? [place]-Septal ? Normal ? [place]-Anterior ? Normal ? [place]-Lateral ?Normal ? [place]-Inferior ? Normal ? [place]-Tip ?Normal ? This report has been electronically signed by: Jaime Nguyen MD ? 08/30/2015 11:54:10 Images reviewed and interpretation verified [facility] Cardiac Ultrasound Laboratory Procedure Note Jaime Nguyen MD - 08/30/2015 Procedure: Transthoracic Echocardiogram Patient: RAINA WILLIS (Age): 1945(69y) Med Rec#: [id number] Sex: M Site Loc: [facility] Ht / Wt: 178(cm)/186(kg) Pt. Loc: Adult Floor BSA: 2.83 Study Date: 08/30/2015 Pt. Type: Inpatient Tape: Referring: JOHN EGAN T Referring: Delroy Chu Reading: Jaiem Nguyen ([id number]) Chemical Laboratory Technician: Tamia Haines Diagnosis: *ICD-10-PCS Encounter for other preprocedural examination (Z01.818) *ICD-10-PCS Unspecified atrial fibrillation (I48.91) CPT Codes: *Echo Full (20080) *Spectral Doppler (01860) *Color Doppler (34171) Rhythm: A-Fib BP: 117/66 SUMMARY: 1. The [...] Normal Mid-Posterolateral Normal Mid-Inferior Normal Mid-Inferoseptal Normal [place]-Septal Normal [place]-Anterior Normal [place]-Lateral Normal [place]-Inferior Normal [place]-Tip Normal This report has been electronically signed by: Jaime Nguyen MD 08/30/2015 11:54:10 Images reviewed and interpretation verified [facility] Cardiac Ultrasound Laboratory Delroy Chu MD ECHO ORDERABLES * Antibody screen (08/30/2015 9:11 AM EST) Ab Screen Interp Negative [facility] Expires at [id number] on: 09/02/2015 [facility] Blood specimen (specimen) 08/30/2015 9:11 AM EST 08/30/2015 10:23 AM EST Narrative Resulting Agency Comment Spec In Lab Delroy Chu MD BLOOD BANK LAB ORDER JESSIE Performing Organization Address [facility] Co de Phone Number [facility] * ABO/Rh Typing (08/30/2015 9:11 AM EST) Pathologist [facility] ABORH Type O Pos [facility] Blood specimen (specimen) 08/30/2015 9:11 AM EST 08/30/2015 10:23 AM EST Narrative Resulting Agency Comment Spec In Lab Delroy Chu MD BLOOD BANK LAB ORDER JESSIE Performing Organization Address [facility] Co de Phone Number [facility] * Lactate, whole blood, send to lab (08/30/2015 9:11 AM EST) [facility] Lactate WB 1.4 0.5 - 2.2 mmol/L [facility] Comment:Results rechecked-mk f Blood specimen (specimen) 08/30/2015 9:11 AM EST 08/30/2015 9:15 AM EST Narrative Resulting Agency Comment Spec In Lab Delroy Chu MD CHEMISTRY ORDERABLES Performing Organization Address [facility] Co de Phone Number [facility] * Prepare thawed plasma (08/30/2015 7:30 AM EST) Dispensed? Yes [facility] Blood specimen (specimen) 08/30/2015 7:30 AM EST 08/30/2015 7:33 AM EST Narrative Resulting Agency Comment Spec In Lab Delroy Chu MD BLOOD BANK PRODUCT O RDERABLES Performing Organization Address [facility] Co de Phone Number CERDENISE BOWENENNIUM * EKG 12 Lead (08/30/2015 1:28 AM EST) Ventricular rate 130 BPM MUSE SYSTEM Atrial Rate 144 BPM MUSE SYSTEM QRS Duration 100 ms MUSE SYSTEM Q-T Interval 322 ms MUSE SYSTEM QTC Calculated (Bezet) 473 ms MUSE SYSTEM Calculated R [place] 84 degrees MUSE SYSTEM Calculated T [place] 48 degrees MUSE SYSTEM INTERPRETATION Atrial fibrillation [...] Chu MD ECG ORDERABLES Performing Organization Address [facility] Co de Phone Number MUSE SYSTEM * [...] Lab Elizabeth Hein MD HEMATOLOGY ORDERABLE S CERNER MILLENNIUM * Gold Tube HOLD (08/30/2015 1:25 AM EST) [facility] Gold Hold Sample in lab. CERNER MILLENNIUM Blood specimen (specimen) Venous Draw / Unknown 08/30/2015 1:25 AM EST 08/30/2015 1:32 AM EST Delroy Chu MD CHEMISTRY ORDERABLES Performing Organization Address [facility]/ZIP Co de Phone Number CERDENISE BOWENENNIUM * (ABNORMAL) Basic Metabolic Panel (non-fasting) (08/30/2015 1:25 AM EST) [facility] Glucose 122 65 - 199 mg/dL CERNER MILLENNIUM Comment:Diabetes: >=200 mg/d L plus symptoms Blood Urea Nitrogen 14 10 - 20 mg/dL CERNER MILLENNIUM Creatinine 0.91 0.80 - 1.50 mg/dL CERNER MILLENNIUM Comment: Please note that the pediatric reference intervals supplied above were not validated at [facility]. Results from pediatric patients should [...] the following links into your internet browser. http://Play for Job/DHnkdep http://Play for Job/DHMCnkf Blood specimen (specimen) Venous Draw / Unknown 08/30/2015 1:25 AM EST 08/30/2015 1:30 AM EST Narrative Resulting Agency Comment Spec In Lab Delroy Chu MD CHEMISTRY ORDERABLES CERNER MILLENNIUM * (ABNORMAL) Hemogram (08/30/2015 1:25 AM EST) [...] Narrative Resulting Agency Comment Spec In Lab Eliazbeth Hein MD HEMATOLOGY ORDERABLE S Performing Organization Address City/[facility] Co de Phone Number CERDENISE BOWENENNIUM * Lipase (08/30/2015 1:25 AM EST) Lipase 33 0 - 60 unit/L CERNER MILLENNIUM Blood specimen (specimen) 08/30/2015 1:25 AM EST 08/30/2015 1:30 AM EST Narrative Resulting Agency Comment Spec In Lab Delroy Chu MD CHEMISTRY ORDERABLES Performing Organization Address [facility] de Phone Number CERNER MILLENNIUM * (ABNORMAL) [...] Chu MD CHEMISTRY ORDERABLES Performing Organization Address City/[facility]/ZIP Co de Phone Number CERNER MILLENNIUM * (ABNORMAL) Lactate, whole blood, send to lab (08/30/2015 1:25 AM EST) Lactate WB 3.2(H) 0.5 - 2.2 mmol/L [facility] Blood specimen (specimen) 08/30/2015 1:25 AM EST 08/30/2015 1:30 AM EST Narrative Resulting Agency Comment Spec In Lab Delroy Chu MD CHEMISTRY ORDERABLES Performing Organization Address [facility] de Phone Number [facility] * APTT (08/30/2015 1:25 AM EST) Partial Thromboplastin Time 33 25 - 35 sec [facility] Comment: Recommended therapeutic PTT range for full dose unfractionated heparin is 80-114 seconds. Blood specimen (specimen) 08/30/2015 1:25 AM EST 08/30/2015 1:30 AM EST Narrative Resulting Agency Comment Spec In Lab Delroy Chu MD HEMATOLOGY ORDERABLE S Performing Organization Address [facility] Phone Number MAXIMO NERI * (ABNORMAL) Prothrombin Time (08/30/2015 1:25 AM EST) Prothrombin Time 26.1(H) 12.0 - 15.0 sec [facility] Comment: Transfusion Committee Guidelines: INR less than 2.0, PTT less than OR equal to 43.5 seconds, or Fibrinogen greater than or equal to 100 mg/dl indicate adequate procoagulant activity for hemostasis in patients without underlying bleeding disorders. International Normalization Ratio 2.3(H) 0.9 - 1.1 [facility] Blood specimen (specimen) 08/30/2015 1:25 AM EST 08/30/2015 1:30 AM EST Narrative Resulting Agency Comment Spec In Lab Delroy Chu MD HEMATOLOGY ORDERABLE S Performing Organization Address [facility] de Phone Number [facility] * Film Library- Storage only DX Chest (08/29/2015 12:05 AM EST) Narrative User, Raad Transmittal - 08/29/2015 10:42 PM EST See PACS for result report. Marla May MD IM FILM LIBRARY ORD ERABLES * Film Library- Storage Only CT Abdomen & Pelvis (08/29/2015 12:00 AM EST) Narrative User, Raad Transmittal - 08/29/2015 10:38 PM EST See PACS for result report. Marla May MD IMJulio Cesar FILM LIBRARY ORD ERABLES documented in this [...] on 09/02/15 at 0200, Last dose on Fri09/02/15 at [...] Zahra Conway RN)2208 (Given - Provider: Yolanda Lujan, JACOB) 0812 [...] Admin Adt)1418 (MAR Unhold - Provider: Admin Adt)2015 (Given - Provider: Florinda Peralta RN) 09 (Given - Provider: Hira Mandujano, JACOB) ibuprofen (ADVIL;MOTRIN) tablet 600 mg (CANCELED) 600 mg, Oral, EVERY 6 HOURS, First dose on Fri09/01/15 at 2100, Until Discontinued, Routine 2032 (Given - Provider: Florinda Peralta RN) 0315 (Given - Provider: Sarah Conner, JACOB)0914 (Given - Provider: Hira Mandujano, JACOB) ipratropium-albuterol [...] Hira Mandujano RN)1229 (Given - Provider: Hira Manudjano RN) lisinopril (PRINIVIL;ZESTRIL) tablet 20 mg (CANCELED) [...] Provider: Zahra Conway RN)220 (Given - Provider: oYlanda Lujan, JACOB) 08 (NOV Hold - Provider: Admin Adt - Reason: Transfer to a Procedural area)0900 (Automatically Held - Provider: Admin Adt)1418 (NOV Unhold - Provider: Admin Adt)154 (Given - Provider: Kate Lamar RN)2026 (Given - Provider: Florinda Peralta, JACOB) 0913 (Given - Provider: Hira Mandujano, JACOB) senna (SENOKOT) tablet 8.6 mg (CANCELED) 8.6 mg, Oral, 2 TIMES DAILY, First dose on Fri09/01/15 at 2100, Until Discontinued, Routine 0052 (Given - Provider: Suma Esparza, JACOB - Comment: medication not available administered when med arrived)0914 (Not Given - Provider: Hira Mandujano, JACOB - Reason: Patient/family refused) sodium chloride 0.9 % flush 5 mL (CANCELED) 5 mL, Intravenous, 2 TIMES DAILY, First dose on Fri08/30/15 at 0245, Until Discontinued, Recovery (Recovery-Hospital Unit), Routine 0818 (Not Given - Provider: Zahra Conway RN - Reason: Order parameters not met - Comment: infusing)2210 (Given - Provider: Yolanda Lujan, JACOB) 0900 (Not Given - Provider: Fernando Thomas [...] Adt)1447 (New Bag - Provider: Lolita Jackson, RN) PRN Medication Order 08/31/2015 09/01/2015 09/02/2015 [...] Routine documented in this encounter Care Teams Prevention Specialist Relationship Specialty Start Date End Date Cherise Staples MD [address] [place] [address] PCP - General 07/31/10 10/04/19 documented as of this encounter
--- OUTSIDE RECORDS SUMMARY | 2024-08-20 06:25 | XMS_ITS | Encounter Summary ---
[place] [address] Care Team Providers Care Automotive Parts Manager Name Role Phone Cherise Staples MD Primary Care Provider [phone] Encounter Details Date Type Department Care Team (Late st Contact Info) Description 11/23/2014 11:00 AM EDT Office Visit [place] [address] Micah Medrano MD [address] [place] [address] [place] [address] Calculus of bile duct with cholangitis without obstruction Discharge Disposition: Home Social History Tobacco Use [...] Sign Reading Time Taken Comments Blood Pressure 143/79 11/23/2014 10:55 AM EDT Pulse 62 11/23/2014 10:55 AM EDT Temperature 36.4 ??C (97.5 ??F) 11/23/2014 10:55 AM E DT Respiratory Rate 16 11/23/2014 10:55 AM EDT Oxygen Saturation 97% 11/23/2014 10:55 AM EDT Inhaled Oxygen Concentration - - Weight 186 kg (410 lb) 11/23/2014 10:55 AM EDT Height 178 cm (5' 10.08) 11/23/2014 10:55 AM ED T Body Mass Index 58.7 11/23/2014 10:55 AM EDT documented in this encounter Progress Notes * Sundeep Linares MD - 11/23/2014 2:46 PM EDT General Surgery [facility] Note Jaime Crouch 1945 [id number] Chief complaint: H/o cholecystitis vs Cholangitis HPI: A 69 man w/ ASCVD s/p stent to LAD 2006 and [place] ~1992, h/o PE and Afib on warfarin, and morbid obesity with TOM on CPAP. He had a acute onset of pain on . Went to his local hospital at [facility], diagnosed with possible cholecystitis vs cholangitis. Due to elevated bilirubin, transferred to [facility] for further evaluation, possible ERCP. He was evaluated by the GI team hear at [facility] who stated over past 48 hours patient had transient hypotension and T bili elevation to 7-8. Though at evaluation pain free, indications for ERCP thought to be in place. Following that procedure which did not show any stones or other pathological findings, the patient developed what is described as flash pulmonary edema. He was transferred to the ICU for further evaluation and ventilatory management. He remained intubated for three days. Following extubation he was in the care of the Internalmedicine team. He was treated with iv antibiotics. Discharged to home on HD#11. He states he was relatively quick to recover at home. 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 For the past week has though been not as active due to a medial right knee pain. He is presenting to day to surgical clinic for evaluation and discussion of further treatment. Past Medical History Diagnosis Date ??? Kidney stone ??? Hypertension ??? ASCVD (arteriosclerotic cardiovascular disease) 1992 first [place] 1992, stent to LAD in 2006 ??? [...] surgery Left removal of stones: nephrolithotomy ??? Ercp,diagnostic N/A 09/09/2014 ERCP performed by Nick Broussard MD at [facility] ENDOSCOPY History Social History ??? Marital Status: Spouse [...] ??? Not on file Social History Narrative ROS: Negative for Headaches, h/o migraines Recent change in vision Difficulties swallowing Chest pain/thigthness Palpations SOB Nausea/emesis, diarrhea/constipation Difficulties urinating, UTI's New rash Positive for H/o kidney stones, no attack since ~ 2008 Bilateral lower extremity edema All other systems negative Current Outpatient Prescriptions on File Prior to Visit Medication Sig Dispense Refill ??? furosemide (LASIX) 40 mg Tablet Take 0.5 tablets by mouth 2 times daily. 30 tablet 12 ??? lisinopril (PRINIVIL;ZESTRIL) 20 mg Tablet Take 1 tablet by mouth daily. 30 tablet 0 ??? metoprolol tartrate (LOPRESSOR) 50 mg Tablet Take 1 tablet by mouth 2 times daily. 60 tablet 1 ??? DILTiazem (CARDIZEM CD) 120 mg Capsule, Sust. Release 24 hr Take 2 capsules by mouth daily. 30 capsule 1 ??? atorvastatin (LIPITOR) 80 mg Tablet Take 80 mg by mouth daily. ??? nitroGLYcerin (NITROSTAT) 0.4 mg Tablet, Sublingual Place 0.4 mg under the tongue every 5 minutes as needed for Chest pain. ??? [DISCONTINUED] aspirin 81 mg EC tablet Take 81 mg by mouth daily. ??? [DISCONTINUED] enoxaparin (LOVENOX) 100 mg/mL Syringe Inject 1.8 mLs subcutaneously 2 times daily. 6 Syringe 3 ??? [DISCONTINUED] warfarin (COUMADIN) 7.5 mg Tablet Take 1 tablet by mouth daily. 30 tablet 0 No current facility-administered medications on file prior to visit. No Known Allergies Filed Vitals: 11/23/14 1055 BP: 143/79 Pulse: 62 Temp: 36.4 ??C (97.5 ??F) Resp: 16 Height: 178 cm (5' 10.08) Weight: 185.975 kg (410 lb) SpO2: 97% Exam: General: Alert and oriented x4 Heart: RRR Lungs: Vesicular bilateral Abdomen: Pannus, soft, non distended/tender, + BS Extremities: Warm, no edema CT A/P June 2010 A few gallstones are noted in the nondistended gallbladder. ERCP 09/09 2014 A 15 mm biliary sphincterotomy was made. Occlusion cholangiogram revealed no focal filling defects. The PD was not accessed. Impression: - No evidence of CBD stone with filling into the cystic duct Assessment/Plan A 69 man w/ ASCVD s/p stent to LAD 2006 and [place] ~1992, h/o PE and Afib on warfarin, and morbid obesity with TOM on CPAP. He presented this at new years with a RUQ, jaundice and elevated WBC. Transienthypotension at the OSH. ERCP did not show any filling defects, and the cystic duct was open at thatexam. The clinical picture indicates cholangitis with passing the stone spontaneously, as the patient became pain free with out intervention. His procedure was unfortunately complicated by flash pulmonary edema. That required him to remain intubated for ~ 72 hours. The etiology of this remains unclear. During the hospitalization he was notevaluated with ECHO or cardiology consulted. Given his clear complication from gallstones, we recommend an elective cholecystectomy after further evaluation. We would want a cardiology work up as he has not been seen by a db2 dba for a quite some time.He presently denies any symptoms which could present angina. Also before surgery we would need to bridge him with Lovenox due to h/o PE Also discussed during this visit was the possible presence of fatty liver and the importance of pre-operative diet to shrink the liver as possible to make a laparoscopic approach possible. We discussed in details indications for surgery, with one episode of complication from gallstones the likelihood of a second complication is very high. That even with spinchterectomy from the ERCP, he still remains at high risk. Despite his high operative risk due to morbid obesity, TOM and cardiac issue, he will likely benefit from surgery rather roman taking a chance with not having it removed. We will continuo that discussion following his cardiac evaluation as it might shift the balance of risk vs benefits. As he has been asymptomatic since the pain episode back at new years he is understandably careful about further interventions as he had a major complication form the ERCP. We discussed the surgery it self and technical aspects of it. We explained the difference between open and laparoscopic, possible complications and expected recovery time. His obesity will make this technically difficult. He is currently 186 kg. He would need to stay the night following surgery due to h/o complication and TOM Also discussed anticoagulation, bridge with Lovenox Liver diet two week prior He is referred back to his PCP to arrange for a cardiology work up. Following that he will book an appointment in clinic for further discussion. Patient was seen with Dr Medrano General Surgery Attending Addendum: I examined the patient independently from the chief resident Dr. Linares and reviewed the results above. The patient is at increased risk for surgery given his comorbidities and complications with ERCP. On the other hand he is at risk for cholecystitis and cholangitis if he does not have surgery. Will wait for evaluation from PCP and cardiology to better weigh the risks and benefits. Micah Medrano M.D., FACS documented in this encounter Plan of Treatment Not on file documented as of this encounter Visit Diagnoses Diagnosis Calculus of bile duct with cholangitis without obstruction Calculus of bile duct without mention of cholecystitis or obstruction documented in this encounter Care Teams Automotive Parts Manager Relationship Specialty Start Date End Date Cherise Staples MD [address] [place] [address] PCP - General 07/31/10 10/04/19 documented as of this encounter
--- OUTSIDE RECORDS SUMMARY | 2024-08-20 06:25 | XMS_ITS | Encounter Summary ---
Author Organization [facility] [place] [address] Care Team Providers Care Order Control Clerk Blood Bank Name Role Phone Cherise Staples MD Primary Care Provider [phone] Reason for Visit * Reason Comments Medication Refill Encounter Details Date Type Department Care Team (Late st Contact Info) Description 05/05/2015 [place] [address] Fabricio Aranda Jr., MD [facility] [place] [address] Social History Tobacco Use Types Packs/Day Years [...] on filedocumented in this encounter Care Teams Order Control Clerk Blood Bank Relationship Specialty Start Date End Date Cherise Staples MD [address] [place] [address] PCP - General 07/31/10 10/04/19 documented as of this encounter
--- OUTSIDE RECORDS SUMMARY | 2024-08-20 06:25 | XMS_ITS | Encounter Summary ---
Author Organization [facility] [place] [address] Care Team Providers Care Rag Inspector Name Role Phone Cherise Staples MD Primary Care Provider [phone] Encounter Details Date Type Department Care Team (Latest Contact Info) Description 08/29/2015 - 08/29/2015 12:04 AM [facility] Hospital Encounter Radiology Library at [facility] [place] [address] Discharge Disposition: Home Social History Tobacco Use [...] Diagnosis Comments FILM LIBRARY STORAGE ONLY CT ABDOMEN AND PELVIS STAT 08/29/2015 12:00 AM EST Pain documented in this encounter Results * Film Library- Storage Only CT Abdomen & Pelvis (08/29/2015 12:00 AM EST) Narrative User, Generic Transmittal - 08/29/2015 10:38 PM EST See PACS for result report. Marla May MD IMG FILM LIBRARY ORD ERABLES documented in this encounter Visit Diagnoses Not on filedocumented in this encounter Care Teams Rag Inspector Relationship Specialty Start Date End Date Cherise Staples MD [address] [place] [address] PCP - General 07/31/10 10/04/19 documented as of this encounter
--- OUTSIDE RECORDS SUMMARY | 2024-08-20 06:25 | XMS_ITS | Encounter Summary ---
Author Organization [facility] [place] [address] Care Team Providers Care Business Development Coordinator Name Role Phone Cherise Staples MD Primary Care Provider [phone] Encounter Details Date Type Department Care Team (Latest Contact Info) Description 09/09/2014 6:20 PM EST - 09/20/2014 3:37 PM [facility] Hospital Encounter [address] [place] [id number] Nick Broussard MD [facility] [place] [address] Cynthia Davis Jr., [place] [address] [place] [address] [place] [address] Calculus of bile duct with acute cholecystitis without obstruction; Atrial fibrillation, unspecified; Suspected cholecystitis vs cholangitis Discharge Disposition: Home with VNA Social History Tobacco Use Types Packs/Day Years [...] Sign Reading Time Taken Comments Blood Pressure 123/67 09/20/2014 1:11 PM EST Pulse 88 09/20/2014 1:11 PM EST Temperature 37.4 ??C (99.3 ??F) 09/20/2014 1:11 PM ES T Respiratory Rate 16 09/20/2014 1:11 PM EST Oxygen Saturation 98% 09/20/2014 1:11 PM EST Inhaled Oxygen Concentration - - Weight 186 kg (410 lb 0.9 oz) 09/09/2014 5:00 PM EST Height 178 cm (5' 10.08) 09/09/2014 5:00 PM EST Body Mass Index 58.7 09/09/2014 5:00 PM EST documented in this encounter Discharge Summaries * Karmen Silvestre DO - 09/18/2014 11:10 PM EST General Internal Medicine - Discharge Summary Patient Name: Jaime Crouch Patient Age: 69 y.o. Birthdate: 1945 Admit date: 09/09/2014 Discharge date and time: 09/20/2014 1:51 PM Attending Physician: Karmen Silvestre DO Follow-up Recommendations for Providers: - Daily Pt/INR results by VNA to adjust coumadin dosing and d/c lovenox bridge when pt INR 2-3 range -monitor BP and P with change in medication regimen - Consider Surgery referral for outpatient Cholycystectomy - continue PT prn - encourage outpt weight loss Instruction after leaving the hospital Why you were hospitalized: Gallbladder dysfuntion, fluid overload in lungs requiring intubation, afib with elevate heart rate Call your doctor or seek medical attention if you develop the following: fever, chills, right upperquadrant pain, nause/vomittin, chest pain, shortness of breath, blood in urine or stool Activity level: as tolerated with PT Diet: Heart Healthy, coumadin restrictions Follow-Up Appointments - daily PT/INR results need to be called into PCP Dr Staples's office -obtain daily instructions from Dr Staples about daily coumadin dose and if need to continue with lovenox injections -follow up in Dr Staples's office SHEILA - within 1 week - call for appt -follow up with outside Surgeon if decide to have Gall bladder removed per PCP Dr Thomas recommendations Discharge Diagnoses (Hospital Problems) and Secondary Diagnoses (Chronic Problems): Active Hospital Problems Diagnosis ??? Suspected cholecystitis vs cholangitis ??? Morbid obesity ??? Hypertension (HTN) ??? Nonsustained ventricular tachycardia ??? Hypertension ??? Atrial fibrillation ??? TOM on CPAP Resolved Hospital Problems Diagnosis Date Resolved ??? Hematuria 09/20/2014 ??? Volume overload 09/20/2014 Past Medical History Diagnosis Date ??? Kidney stone ??? Hypertension ??? ASCVD (arteriosclerotic cardiovascular disease) 1992 first [place] 1992, stent to LAD in 2006 ??? Atrial fibrillation chronic anticoagulation ??? Nephrolithiasis hx of nephrostomy tube and posterior approach removal ??? HLD (hyperlipidemia) ??? Chronic venous insufficiency ??? TOM on CPAP ??? DVT (deep venous thrombosis) ??? PE (pulmonary embolism) Procedures: ERCP 09/09/14 (see 'Studies' below for details). History of Presentation: 69 man w/ ASCVD s/p stent to LAD 2006 and [place] ~1992, Afib on warfarin, and obesity with TOM on CPAP nightly who presents to [facility] on 09/07 with new, sudden onset RUQ pain on 09/07. The patient describes 1x vomiting associated with the start of his RUQ pain, with pain radiating to his back. He had no changes in his bowel mov'ts. He was hytertensive with BP in 169/77 on presentation, pulse 99, afebrile and sating 98% on room air. Given his hx of having gall bladder stones, a RUQ UT was performed that showed cholelithiasis, but no gall bladder wall thickening or pericholecystic fluid (incidentallynoting increased echogenicity of the liver suggestive of fatty infiltration). The patient had an elevated WBC count that peaked at 20K and was started on zosyn as it was felt that he had acute cholecystitis. During his hospital stay his WBC cell was seen to normalize after 3 days on antibiotics, but his bilirubin up trendied: T. Bili: 7.0 and Direct Conjugated of 5.87. He was reported to have some hypotension (not given the vitals) on HD#1 where he was given 1L IVF, and he responded to this. The patient was discussed with GI here at [facility] and plan made was to perform ERCP to relieve what mighthave been a picture of ascending cholangitis versus acute cholecystitis. On arrival to [facility], the day of admission, he was hemodynamically stable. The patient was difficult intubation required a glidescope and complicated by tongue laceration and bleeding... He underwent ERCP with sphincterotomy, there were no stones visualized, and his gall bladder was filling. He received 1200cc of fluid duringthe procedure, no issues of oxygenation during the procedure sat'ing in the 90s. When the patient finished his procedure and transferred to the PACU in anticipation of extubation, he was seen to havefrothy pink sputum coughing up. A CXR showed diffuse opacification and the decision was made to admit him to the Critical Care Service. Hospital Course: Mr. Crouch was admitted to the critical care service with the above presentation. During the courseof his hospital admission his medical issues were diagnosed and treated as follows: # pulmonary edema and difficult reintubation He had pulmonary edema noted on CXR, so he was diuresed with iv lasix. His vent settings were weaned overnight and he passed a spontaneous breathing trial on 09/11, but repeat chest x-ray continued to show pulmonary edema, albeit less than previously. Diuresis was continued for one more day prior to extubating him. Diuresis with iv lasix was continued for another day or two, and he was then transitioned back to his usual lasix 40 mg po bid. # acute cholecystitis vs cholangitis He was treated with zosyn for an additional 7 days after his ERCP. His LFT's steadily improved after the procedure. GI recommended that he have elective cholecystectomy. He and his plan to contact surgery once he has recovered from this hospitalization. # atrial fibrillation Patient remained in atrial fibrillation. His HR increased especially with exertion. His metoprolol was lowered and cardizem added which seemed to work better for HR and BP control. [facility] Upon restarting his coumadin, his INRR did not change after several days. His dose has been increased to 7.5 mg and he was started on a lovenox bridge. Phoned PCP Dr Bel betancourt, d/w nursing, reviewed hosp, course, tx plans. She confirms they will follow INR and adjust medication Including coumadin & lovenox. Pt will go home with VNA services to check labs and call to PCP and obtain further instructions in regards to coumadin dosing and lovenox. #nonsust VTach On tele the pt had several occ of short runs of nonsus vtach. He was asymtomatic during these briefepisodes. His k and mag were replaced as needed. # Hematuria Had brief episode hematuria which was thought to be related to his haque, trauma and anticoag. His anticoag was held, and then restarted. He did not have any reoccurence. At time of d/c pt was alert siting up in chair. States no cp, palp, cough or SOB. No evidence bleeding. Wants to go home. Important Studies and Lab Data: Recent Labs 09/16/1425809/15/1425109/14/14222 WBC 9.3 10.3* 9.4 HGB 15.4 15.8 15.2 PLATELET 245 212 201 Recent Labs 09/19/1421209/18/14 02009/17/1424409/16/1425809/15/14251 NA 137 141 141 143 142 K 4.1 4.1 3.9 3.9 3.8 CL 101 102 102 104 103 CO2 24 26 27 26 26 BUN 20 23* 22* 25* 24* CREATININE 0.90 0.91 0.91 1.02 0.99 GLUCOSE 105 105 106 118 108 Recent Labs 09/20/14 0239 09/19/14 02109/18/14 0204 09/17/1424409/16/14258 CALCIUM -- 9.6 9.5 9.5 9.4 MAGNESIUM 0.85 -- -- -- 0.87 PHOS 3.1 -- -- -- -- No results found for this basename: CK, TROPONINT, in the last 168 hours Recent Labs 09/17/14 0245 09/16/14 0259 09/15/14 0252 AST 33 35 36 ALT 55 59* 67* ALKPHOS 120 131* 133* BILITOT 1.3 1.4* 1.5* BILIDIR 0.6* 0.6* 0.7* Recent Labs 09/20/14 0239 09/19/14 0213 09/18/14 0204 INR 1.1 1.0 1.0 Studies: ERCP-09/09/14 Findings: The timber management assistant film was normal and the procedure was performed with the patient supine. The esophagus was successfully intubated under direct vision. The scope was advanced to a normal major papilla in the descending duodenum without detailed examination of the pharynx, larynx and associated structures, and upper GI tract. The upper GI tract was grossly normal. The bile duct was deeply cannulated with the short-nosed traction sphincterotome and a 0.035 inch ACROBAT wire advanced to the intrahepatic ducts. Contrast was injected. Cholangiogram revealed a normal appearing CBD measuring 5 mm in maximum diameter. There were no stones or filling defects. Contrast did fill into the cystic duct. A 15 mm biliary sphincterotomy was made with a short-tip traction sphincterotome using ERBE electrocautery. There was no post-sphincterotomy bleeding. The duct was then swept multiple times from the distal intrahepatic ducts with the 8.5 mm balloon. Occlusion cholangiogram revealed no focal filling defects. The PD was not accessed. Impression: - No evidence of CBD stone with filling into the cystic duct CXR 09/09/14: Low lung volumes, consistent with shallow inflation. Pulmonary vascular markings appear prominent and indistinct, consistent with congestion. Question mild perihilar airspace opacity, thus equivocal mild edema. No definite pleural effusion. Mild cardiomegaly. CXR 09/11/14: Lung volumes remain markedly low. Pulmonary edema appears stable or slightly improved. There may be some mild patchy left lower lobe atelectasis or pneumonia superimposed on the pulmonary edema. Pending LABS: daily INR from VNA Discharge to: Home with , VNA, PT Discharge Medications: Your Medications New Medications Dose Details DILTiazem 120 mg Cp24 Commonly known as: CARDIZEM CD Take 2 capsules by mouth daily. 240 mg Quantity: 30 capsule Refills: 1 enoxaparin 100 mg/mL Syrg Commonly known as: LOVENOX Inject 1.8 mLs subcutaneously 2 times daily. 180 mg Quantity: 6 Syringe Refills: 3 metoprolol tartrate 50 mg Tab Commonly known as: LOPRESSOR Take 1 tablet by mouth 2 times daily. 50 mg Quantity: 60 tablet Refills: 1 Continued medications with new dosing Dose Details furosemide 40 mg Tab Commonly known as: LASIX Take 0.5 tablets by mouth 2 times daily. What changed: how much to take 20 mg Quantity: 30 tablet Refills: 12 lisinopril 20 mg Tab Commonly known as: PRINIVIL;ZESTRIL Take 1 tablet by mouth daily. What changed: See the new instructions. 20 mg Quantity: 30 tablet Refills: 0 warfarin 7.5 mg Tab Commonly known as: COUMADIN Take 1 tablet by mouth daily. What changed: - medication strength - how much to take - additional instructions 7.5 mg Quantity: 30 tablet Refills: 0 Continued medications, unchanged Dose Details aspirin 81 mg Tbec Take 81 mg by mouth daily. 81 mg Refills: 0 atorvastatin 80 mg Tab Commonly known as: LIPITOR Take 80 mg by mouth daily. 80 mg Refills: 0 nitroGLYcerin 0.4 mg Subl Commonly known as: NITROSTAT Place 0.4 mg under the tongue every 5 minutes as needed for Chest pain. 0.4 mg Refills: 0 STOPPED Medications metoprolol succinate 100 mg Tablet sr Commonly known as: TOPROL-XL Updated Allergies/ADRs: No Known Allergies Future Appointments and Orders Future Orders Complete By Expires Hospital Bed (Outpatient) [EQ172 Custom] As directed Process Instructions: Scheduling Instructions: Comments: Patient: Jaime Crouch Diagnosis: Suspected Cholecystitis vs. Cholangitis Height:178 cm Weight: 186 kg Special Instructions: Patient will need a large/bariatric semi-electric bed with half rails due to TOM, requiring HOB elevation, and morbid obesity (186 kg). Patient will also need an over the bed table. Deliver to: Patients Home Date Signed: 09/19/2014 Karmen Silvestre DO NPI#: [id number] Questions: Vendor Name/Contact information: [employer]. Comment - [facility] office Referral to Home Health - at DISCHARGE [[id number] CPT(R)] As directed Process Instructions: Scheduling Instructions: Comments: DISCHARGE DOCUMENTATION FOR VNA SERVICES (INCLUDING THOSE PATIENTS WITH MEDICARE COVERAGE BEING DISCHARGED HOME WITH VNA SERVICES AND THOSE PATIENTS WITH MEDICARE COVERAGE WHO ARE BEING DISCHARGED HOME WITH HOSPICE SERVICES) In discussion with the attending physician, it is certified that this patient is under their care and that they, or a nurse practitioner, clinical nurse specialist or physician's call center assistant who is working directly with them, had a face to face encounter that meets the physician face to face encounter requirements with this patient on 09/19/2014 The encounter with the patient was in whole, or in part, for the following medical condition, whichis the primary reason for home health care services: Cholecystitis vs. Cholangeitis In discussion with the primary medical team, it is certified that, based on their findings, the indicated services are medically necessary and appropriate for home health services. FOR MEDICARE ONLY: In discussion with the attending physician, it is certified that the clinical findings support thatthis patient is homebound ;i.e. absences from home require considerable and taxing effort due to: Patient requires a walker and cane to mobilize. Patient is confined to the first level of his home and has difficulty navigating community surfaces. Please note that any additional orders needs or changes will need to be obtained from this patient's PCP: CHERISE STAPLES MD [address] [place] [phone] All VNA agencies which cover the area of patient's residence have been reviewed, either verbally hortencia writing, and patient/family have chosen the indicated home health care agency for home services. [facility]. PHONE: [phone] FAX: [phone] RN - to assess CP/GI//nutrition/hydration/elimination. Check vital signs, pulse ox Q visit. Monitor med management and effectiveness. Teach medication regimen, effects and side-effects, signs and symptoms to report to MD. Patient will need assistance with lovenox bridge as ordered in discharge summary and lab draws as ordered for coumadin clinic. PT - home exercise program, strengthening exercises. Home safety evaluation. Gait retraining program. OT - assess for DME needs and ADL modifications. ADL retraining. Home safety evaluation. Assess for WAREHOUSE DISTRIBUTION MANAGER needs. Teach energy conservation techniques. WAREHOUSE DISTRIBUTION MANAGER - to assist with personal care. Questions: Agency name and contact information: [facility] Patient location post discharge: [facility] home What services are requested: Registered Nurse Physical Therapy Occupational Therapy Home Health Aide Start date: 09/20/2014 Responsible MD post discharge contact info: home PCP Referral to Home Health - at DISCHARGE [[id number] CPT(R)] As directed Process Instructions: Scheduling Instructions: Comments: DISCHARGE DOCUMENTATION FOR VNA SERVICES (INCLUDING THOSE PATIENTS WITH MEDICARE COVERAGE BEING DISCHARGED HOME WITH VNA SERVICES AND THOSE PATIENTS WITH MEDICARE COVERAGE WHO ARE BEING DISCHARGED HOME WITH HOSPICE SERVICES) In discussion with the attending physician, it is certified that this patient is under their care and that they, or a nurse practitioner, clinical nurse specialist or physician's call center assistant who is working directly with them, had a face to face encounter that meets the physician face to face encounter requirements with this patient on 09/19/2014 The encounter with the patient was in whole, or in part, for the following medical condition, whichis the primary reason for home health care services: Cholecystitis vs. Cholangeitis In discussion with the primary medical team, it is certified that, based on their findings, the indicated services are medically necessary and appropriate for home health services. FOR MEDICARE ONLY: In discussion with the attending physician, it is certified that the clinical findings support thatthis patient is homebound ;i.e. absences from home require considerable and taxing effort due to: Patient requires a walker and cane to mobilize. Patient is confined to the first level of his home and has difficulty navigating community surfaces. Please note that any additional orders needs or changes will need to be obtained from this patient's PCP: CHERISE STAPLES MD [address] [place] [phone] All VNA agencies which cover the area of patient's residence have been reviewed, either verbally hortencia writing, and patient/family have chosen the indicated home health care agency for home services. [facility]. PHONE: [phone] FAX: [phone] RN - to assess CP/GI//nutrition/hydration/elimination. Check vital signs, pulse ox Q visit. Monitor med management and effectiveness. Teach medication regimen, effects and side-effects, signs and symptoms to report to MD. Patient will need assistance with daily lovenox administration bridge as ordered in discharge summary and lab draws as ordered for coumadin clinic. INR should be checked daily and send to the pt's pcp, CHERISE STAPLES MD at number [phone] PT - home exercise program, strengthening exercises. Home safety evaluation. Gait retraining program. OT - assess for DME needs and ADL modifications. ADL retraining. Home safety evaluation. Assess for WAREHOUSE DISTRIBUTION MANAGER needs. Teach energy conservation techniques. WAREHOUSE DISTRIBUTION MANAGER - to assist with personal care. Questions: Agency name and contact information: [facility] [employer] Patient location post discharge: home What services are requested: Registered Nurse Occupational Therapy Home Health Aide Start date: 09/20/2014 Responsible MD post discharge contact info: CHERISE STAPLES MD, [address], [place] [address], Discharge Instructions: Patient Instructions Instruction after leaving the hospital Why you were hospitalized: gallbladder dysfuction, fluid overload, rapid heart rate Call your doctor or seek medical attention if you develop the following: Fever, chest pain, sob, abd pain, seeing blood in urine or stool Nausea/vomitting Activity level: as tolerated with Physical therapy Diet: Heart healthy, low fat, vit k neutral - daily PT/INR results need to be called into PCP Dr Staples's office -obtain daily instructions from Dr Staples about daily coumadin dose and if need to continue with lovenox injections -follow up in Dr Staples's office SHEILA - within 1 week - call for appt -follow up with outside Surgeon if decide to have Gall bladder removed per PCP Dr Thomas recommendations ??? If taking Enoxaparin (Lovenox??) injections, continue taking until instructed to stop. (You will be taking this medication until your INR is in the therapeutic range for 24 hours.) The following table shows your most recent INR results and Warfarin (Coumadin??) Doses Recent Labs 09/20/14 0239 09/19/14 0213 09/18/14 0204 INR 1.1 1.0 1.0 ??? Warfarin Education that was reviewed with you in the hospital: (please see your warfarin (Coumadin) packet for more information) ? Diet and medications can affect your INR ? Maintaining a diet with a consistent amount of vitamin K containing foods is important to keep your INR in range ? Avoid major changes in dietary habits ? Do not take or discontinue any prescription or zkov-jeq-mhusckd medications without asking your doctor or pharmacist ? Inform all your doctors, pharmacists and other healthcare providers that you take warfarin ? Warfarin increases your risk of bleeding ??? If you experience any of these signs or symptoms of bleeding or blood clot please seek immediate medical attention: - increased pain, swelling or sudden shortness of breath - severe headache - dizziness - unusual bleeding or bruising - changes in urine or bowel movement color - coughing or spitting up blood or nosebleeds that do not stop or occur more often General Instructions None Future Appointments and Orders Future Orders Complete By Expires Hospital Bed (Outpatient) [EQ172 Custom] As directed Process Instructions: Scheduling Instructions: Comments: Patient: Jaime Crouch Diagnosis: Suspected Cholecystitis vs. Cholangitis Height:178 cm Weight: 186 kg Special Instructions: Patient will need a large/bariatric semi-electric bed with half rails due to TOM, requiring HOB elevation, and morbid obesity (186 kg). Patient will also need an over the bed table. Deliver to: Patients Home Date Signed: 09/19/2014 Karmen Silvestre DO NPI#: [id number] Questions: Vendor Name/Contact information: [employer]. Comment - [facility] office Referral to Home Health - at DISCHARGE [[id number] CPT(R)] As directed Process Instructions: Scheduling Instructions: Comments: DISCHARGE DOCUMENTATION FOR VNA SERVICES (INCLUDING THOSE PATIENTS WITH MEDICARE COVERAGE BEING DISCHARGED HOME WITH VNA SERVICES AND THOSE PATIENTS WITH MEDICARE COVERAGE WHO ARE BEING DISCHARGED HOME WITH HOSPICE SERVICES) In discussion with the attending physician, it is certified that this patient is under their care and that they, or a nurse practitioner, clinical nurse specialist or physician's call center assistant who is working directly with them, had a face to face encounter that meets the physician face to face encounter requirements with this patient on 09/19/2014 The encounter with the patient was in whole, or in part, for the following medical condition, whichis the primary reason for home health care services: Cholecystitis vs. Cholangeitis In discussion with the primary medical team, it is certified that, based on their findings, the indicated services are medically necessary and appropriate for home health services. FOR MEDICARE ONLY: In discussion with the attending physician, it is certified that the clinical findings support thatthis patient is homebound ;i.e. absences from home require considerable and taxing effort due to: Patient requires a walker and cane to mobilize. Patient is confined to the first level of his home and has difficulty navigating community surfaces. Please note that any additional orders needs or changes will need to be obtained from this patient's PCP: CHERISE STAPLES MD [address] [place] [address] All VNA agencies which cover the area of patient's residence have been reviewed, either verbally hortencia writing, and patient/family have chosen the indicated home health care agency for home services. [facility]. PHONE: [phone] FAX: [phone] RN - to assess CP/GI//nutrition/hydration/elimination. Check vital signs, pulse ox Q visit. Monitor med management and effectiveness. Teach medication regimen, effects and side-effects, signs and symptoms to report to MD. Patient will need assistance with lovenox bridge as ordered in discharge summary and lab draws as ordered for coumadin clinic. PT - home exercise program, strengthening exercises. Home safety evaluation. Gait retraining program. OT - assess for DME needs and ADL modifications. ADL retraining. Home safety evaluation. Assess for WAREHOUSE DISTRIBUTION MANAGER needs. Teach energy conservation techniques. WAREHOUSE DISTRIBUTION MANAGER - to assist with personal care. Questions: Agency name and contact information: [facility] Patient location post discharge: [facility] home What services are requested: Registered Nurse Physical Therapy Occupational Therapy Home Health Aide Start date: 09/20/2014 Responsible MD post discharge contact info: home PCP Referral to Home Health - at DISCHARGE [[id number] CPT(R)] As directed Process Instructions: Scheduling Instructions: Comments: DISCHARGE DOCUMENTATION FOR VNA SERVICES (INCLUDING THOSE PATIENTS WITH MEDICARE COVERAGE BEING DISCHARGED HOME WITH VNA SERVICES AND THOSE PATIENTS WITH MEDICARE COVERAGE WHO ARE BEING DISCHARGED HOME WITH HOSPICE SERVICES) In discussion with the attending physician, it is certified that this patient is under their care and that they, or a nurse practitioner, clinical nurse specialist or physician's call center assistant who is working directly with them, had a face to face encounter that meets the physician face to face encounter requirements with this patient on 09/19/2014 The encounter with the patient was in whole, or in part, for the following medical condition, whichis the primary reason for home health care services: Cholecystitis vs. Cholangeitis In discussion with the primary medical team, it is certified that, based on their findings, the indicated services are medically necessary and appropriate for home health services. FOR MEDICARE ONLY: In discussion with the attending physician, it is certified that the clinical findings support thatthis patient is homebound ;i.e. absences from home require considerable and taxing effort due to: Patient requires a walker and cane to mobilize. Patient is confined to the first level of his home and has difficulty navigating community surfaces. Please note that any additional orders needs or changes will need to be obtained from this patient's PCP: CHERISE STAPLES MD [address] [place] [address] All A agencies which cover the area of patient's residence have been reviewed, either verbally hortencia writing, and patient/family have chosen the indicated home health care agency for home services. [facility] [employer] Virtual. PHONE: [phone] FAX: [phone] RN - to assess CP/GI//nutrition/hydration/elimination. Check vital signs, pulse ox Q visit. Monitor med management and effectiveness. Teach medication regimen, effects and side-effects, signs and symptoms to report to MD. Patient will need assistance with daily lovenox administration bridge as ordered in discharge summary and lab draws as ordered for coumadin clinic. INR should be checked daily and send to the pt's pcp, CHERISE STAPLES MD at number [phone] PT - home exercise program, strengthening exercises. Home safety evaluation. Gait retraining program. OT - assess for DME needs and ADL modifications. ADL retraining. Home safety evaluation. Assess for WAREHOUSE DISTRIBUTION MANAGER needs. Teach energy conservation techniques. WAREHOUSE DISTRIBUTION MANAGER - to assist with personal care. Questions: Agency name and contact information: [facility] [employer] Patient location post discharge: home What services are requested: Registered Nurse Occupational Therapy Home Health Aide Start date: 09/20/2014 Responsible MD post discharge contact info: CHERISE STAPLES MD, [address], [place] [address], For questions regarding this document or issues relating to this hospitalization on the Medical Service, please contact your inpatient physician through the [facility] Plant Attendant Or Assistant Operator . Issues afterhours and on weekends will be handled by the Hospitalist staff on-call. Greater than 30 min spent coordinating pt care. Phoned PCP Dr Staples - unavailable, d/w nursing, reviewed to hosp, course, tx plans. She confirms they will follow INR and adjust medication Including coumadin & lovenox Signed:KARMEN SILVESTRE DO Cc: Dr Cherise Staples fax [phone] documented in this encounter Discharge Instructions * Patient Instructions* Karmen Silvestre DO - 09/20/2014 1:33 PM EST Instruction after leaving the hospital Why you were hospitalized: gallbladder dysfuction, fluid overload, rapid heart rate Call your doctor or seek medical attention if you develop the following: Fever, chest pain, sob, abd pain, seeing blood in urine or stool Nausea/vomitting Activity level: as tolerated with Physical therapy Diet: Heart healthy, low fat, vit k neutral - daily PT/INR results need to be called into PCP Dr Staples's office -obtain daily instructions from Dr Staples about daily coumadin dose and if need to continue with lovenox injections -follow up in Dr Staples's office SHEILA - within 1 week - call for appt -follow up with outside Surgeon if decide to have Gall bladder removed per PCP Dr Thomas recommendations ??? If taking Enoxaparin (Lovenox??) injections, continue taking until instructed to stop. (You will be taking this medication until your INR is in the therapeutic range for 24 hours.) The following table shows your most recent INR results and Warfarin (Coumadin??) Doses Recent Labs 09/20/14 0239 09/19/14 0213 09/18/14 0204 INR 1.1 1.0 1.0 ??? Warfarin Education that was reviewed with you in the hospital: (please see your warfarin (Coumadin) packet for more information) ? Diet and medications can affect your INR ? Maintaining a diet with a consistent amount of vitamin K containing foods is important to keep your INR in range ? Avoid major changes in dietary habits ? Do not take or discontinue any prescription or [id number] medications without asking your doctor or pharmacist ? Inform all your doctors, pharmacists and other healthcare providers that you take warfarin ? Warfarin increases your risk of bleeding ??? If you experience any of these signs or symptoms of bleeding or blood clot please seek immediate medical attention: - increased pain, swelling or sudden shortness of breath - severe headache - dizziness - unusual bleeding or bruising - changes in urine or bowel movement color - coughing or spitting up blood or nosebleeds that do not stop or occur more often * Attachments The following attachments cannot be sent through Care Everywhere. * ACUTE CHOLECYSTITIS : GENERAL INFO (ANGUILLAN) * ATRIAL FIBRILLATION (ANGUILLAN) * SLEEP APNEA (ANGUILLAN) * WEIGHT: OVERWEIGHT (ANGUILLAN) * ENOXAPARIN (LOVENOX) (ANGUILLAN) * VITAMIN K DIET (ANGUILLAN) documented in this encounter Medications at Time of Discharge Medication Sig Dispensed Refills Start Date End Date lisinopril (PRINIVIL;ZESTRIL) 20 mg Tablet Take 1 tablet by mouth daily. 30 tablet 0 09/20/2014 atorvastatin (LIPITOR) 80 mg Tablet Take 80 mg by mouth daily. nitroGLYcerin (NITROSTAT) 0.4 mg Tablet, Sublingual Place 0.4 mg under the tongue every 5 minutes as needed for Chest pain. Reported on 02/17/2017 enoxaparin (LOVENOX) 100 mg/mL Syringe Inject 1.8 mLs subcutaneously 2 times daily. 6 Syringe 3 09/20/2014 11/23/2014 furosemide (LASIX) 40 mg Tablet Take 0.5 tablets by mouth 2 times daily. 30 tablet 12 09/20/2014 02/17/2017 metoprolol tartrate (LOPRESSOR) 50 mg Tablet Take 1 tablet by mouth 2 times daily. 60 tablet 1 09/20/2014 01/21/2017 DILTiazem (CARDIZEM CD) 120 mg Capsule, Sust. Release 24 hr Take 2 capsules by mouth daily. 30 capsule 1 09/20/2014 01/21/2017 warfarin (COUMADIN) 7.5 mg Tablet Take 1 tablet by mouth daily. 30 tablet 0 09/20/2014 11/23/2014 aspirin 81 mg EC tablet Take 81 mg by mouth daily. 11/23/2014 documented as of this encounter Progress Notes * Florinda Collier RN - 09/20/2014 4:58 PM EST Pt discharged home with via wheelchair without issue. PIV removed and all belongings sent withpt. MD sent prescriptions to pts home pharmacy and they will corn picker on the way. Hospital bed to bedelivered to patients home that they set up. AVS reviewed with pt, all questions and concerns answered. Discharged summary faxed to pts primary MD per MD request and also faxed to [facility]NA. Left message with VNA of number and my name to call with and questions but did relay that pt would need daily PT/INR draws and results called in to pts PCP to figure out coumadin dosing for the day and continuationof lovenox or not. Pt instructed to make appointment with PCP within one week. Pt gave himself his own Lovenox shot this AM and feels comfortable with. Was also given lovenox teaching sheets. Pt discharged home without issue. * Rosalva Finn PTA - 09/20/2014 2:06 PM EST Physical Therapy Note Treatment # 5 Patient profile: Patient is a 69 y.o. male of Karmen Leyva DO, admitted in transfer on09/09/2014 for ERCP to r/o acute cholecystitis. Pt intubated for procedure and required several days to improve lung function for extubation. 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 Objective: Pt seen for self correction management to address goals. was present. Vital Signs: stable on RA Pain:no complaints. Patient was sitting up in the cardiac chair preparing for discharge home. He indicated that he has a front wheeled walker and cane. Instructed the patient on how to properly adjust the walker and cane to his height. stated that a hospital bed will be delivered today when they return home. expressed concern that the patient will try and climb the stairs to the second floor. Discussed the patient's current level of function and the need to continue to work with the home health PT on his strength, stamina and progression on the stairs with the patient expressing understanding. Patient status, treatment, and mobility recommendations discussed with nursing. Assessment: Patient has been continued to mobilize with the walker on the unit. He has all necessary equipment either at home or being delivered. The will need to return to work tomorrow but they have a friend that will be staying with him so that he will not be alone until home health services start up. PT goals are essentially met. Goals: To be achieved on this admit: Modified 09/14 1. Pt will tolerate transfers and mobility activities on RA with saturations in the 90's- Met 2. Pt will transfer supine to sit with min asst- Met 3. Pt will maintain sitting balance without UE support.- Met 4. Pt will ambulate x 25 ft with bariatric walker and SBA on RA- met 5. Pt will transfer bed to toilet with FWW and asst of 1- not assessed. Plan: Plan for discharge today. Discharge Recommendations: Home with PT services through home health. Total time spent with patient: 10 minutes. Total timed interventions: 10 minutes. Pager: [phone] ROSALVA FINN, CINTHYA 09/20/2014 Physical Therapy Rehabilitation Department * Karmen Silvestre, DO - 09/20/2014 1:35 PM EST Hospital Medicine - Attending Day of Discharge Documentation Discharge diagnosis Active Hospital Problems Diagnosis ??? Suspected cholecystitis vs cholangitis ??? Morbid obesity ??? Hypertension (HTN) ??? Nonsustained ventricular tachycardia ??? Hypertension ??? Atrial fibrillation ??? TOM on CPAP Resolved Hospital Problems Diagnosis Date Resolved ??? Hematuria 09/20/2014 ??? Volume overload 09/20/2014 Secondary Issues Active Non-Hospital Problems Diagnosis ??? CAD ??? Phimosis ??? Nephrolithiasis I have personally seen and examined the patient and they are ready for discharge. I spent >30 minutes (Day of Discharge Code 48616) involved in the final examination of the patient, discussion of the hospital stay, instructions for continuing care to all relevant caregivers, and preparation of discharge records, prescriptions and referral forms. Plans ? Discharge to home ? Follow-up scheduled with pcp ? Please see the Discharge Summary for complete details of any medication changes and additional plans. * Maggy Earl RD - 09/20/2014 12:32 PM EST Nutrition Services Follow-up Assessment Note Diet Rx: Carb Counting Level 1, QUYNH Patient Interview: Met with Mr Crouch today to assess need for nutrition education. He stated he isstarting to get used to the smaller portions here. He notes his and he have healthy foods at home and he is not into sweets. I tend to eat more than I need and I know it. If it's good I may haveseconds. I do the cooking and I usually bring leftovers for work. Patient Active Problem List Diagnosis Code ??? Nephrolithiasis 592.0 ??? Phimosis 605 ??? Hypertension 401.9 ??? Suspected cholecystitis vs cholangitis 575.10 ??? Atrial fibrillation 427.31 ??? TOM on CPAP 327.23 ??? Morbid obesity 278.01 ??? Hypertension (HTN) 401.9 ??? CAD 414.00 ??? Nonsustained ventricular tachycardia 427.1 Pertinent Labs: noted - No screening A1C done for risk of diabetes in pt with elevated BMI -58 c/w morbid obesity Patient seen for nutrition assessment and need for nutrition intervention including education. Pt is tolerating Carb Controlled Level 1 diet and understands the diet is to help with weight management, vs diabetes He denied need for further discussion or nutritional interventions. I encouraged good nutritional intake from all food groups with balanced plate method of meal planning to support optimal nutrition and healing. Continue current diet order and honor food preferences as available. * Madison Stringer RN - 09/20/2014 8:30 AM EST OFFICE OF CARE MANAGEMENT CLINICAL SPANISH LECTURER PROGRESS NOTE CRC: Madison Stringer RN Pager #[phone] CRC Service: GI Hospitalist Pager #[phone] Reviewed record and discussed pt in rounds with Charge/Resource RN, avionics integration engineer, PT, CRC and with ProviderTeam. e-DH reviewed. Report received from Dr. Silvestre Patient Is medically ready for discharge to home with VNA service. Called patient's room to follow up r/t [facility] obtaining a bariatric bed from different office. Patient informed CRC that he and his have decided to use [facility] and do not need an order written from . They have declined this CRC's procurement of bariatric bed through [facility], as discussed yesterday, as they have made other arrangements. It is to be delivered to patients house today per patient. Patient states he does not require any more of this CRC's services. I have set up VNA services through [place] per patient request. [facility] [employer] Virtual. PHONE: [phone] FAX: [phone] [facility]'s answering service has been notified of cancellation of bed. This CRC's name and number provided for any questions. They have not called back at this time. Plan: CRC will continue to follow for coordination of care and to facilitate discharge planning. * Katy Price RN - 09/20/2014 5:37 AM EST Tele Note: S: hopefully the doctor will let me go home today. and I keep expecting to feel nauseous with this new drug they've got me on. (referring to the diltiazem). Pt denies CP and SOB. Denies N/V. O: Vital signs monitored q4h throughout the shift as below: Last value Range last 12 hrs Temperature Temp: 36 ??C (96.8 ??F) Temp: [36 ??C (96.8 ??F)-36.6 ??C (97.9 ??F)] Heart Rate Heart Rate: 77 Heart Rate: [77-99] Blood Pressure BP: 152/94 mmHg BP: (152-160)/(78-99) Respiratory Rate Resp: 14 Resp: [14-20] SpO2 SpO2: 96 % SpO2: [96 %-97 %] A: Per tele note: Pt in a fib with rare PVC's and rare couplets. Rate up to 140's when pt up ambulating in garvin and up in the BR washing up for bed. When resting, Pt's HR sustains 65-low 90's. P: Continue tele monitoring. Continue administration of scheduled cardiac medications. * Berna Salas RN - 09/19/2014 6:58 PM EST Nurse Telemetry note S: Denies chest pain and SOB this shift O: Vitals as per flowsheet, stable this shift Patient Vitals for the past 24 hrs: BP Temp Temp src Pulse Resp SpO2 09/19/14 1852 155/90 mmHg - - 82 - - 09/19/14 1834 - - - 99 - - 09/19/14 1832 160/99 mmHg - - 92 - - 09/19/14 1628 142/76 mmHg 36.5 ??C (97.7 ??F) Oral 76 20 95 % 09/19/14 1412 113/65 mmHg 36.5 ??C (97.7 ??F) Oral 88 19 97 % 09/19/14 1222 159/59 mmHg 36.5 ??C (97.7 ??F) Oral 85 18 95 % 09/19/14 0913 - - - 99 - - 09/19/14 0909 142/82 mmHg 36.7 ??C (98.1 ??F) Oral 101 20 97 % 09/19/14 0528 135/81 mmHg 36.8 ??C (98.2 ??F) Oral 72 18 95 % 09/19/14 0024 133/48 mmHg 36.5 ??C (97.7 ??F) Axillary 82 - 99 % 09/18/14 2119 134/80 mmHg 36.3 ??C (97.3 ??F) Axillary 76 19 95 % A: Telemetry report indicates HR 58-115 in the 50's Non sustained, Non-sustain VT rare triplets rare singles Non-sustain VT noted around time of patient ambulating with PT. P: Continue telemetry monitoring per MD. Notify MD with any changes. Please reference Telemetry strip in pt chart * Karmen Silvestre DO - 09/19/2014 3:19 PM EST Inpatient Hospital Medicine - Progress Note Admit Date: 09/09/2014 Hospital Day 10 days Problem List: Active Hospital Problems Diagnosis ??? Suspected cholecystitis vs cholangitis ??? Volume overload ??? Hypertension ??? Atrial fibrillation Resolved Hospital Problems Diagnosis Date Resolved No resolved problems to display. Past Medical History Diagnosis Date ??? Kidney stone ??? Hypertension ??? ASCVD (arteriosclerotic cardiovascular disease) 1993 first NH 1992, stent to LAD in 2006 ??? Atrial fibrillation chronic anticoagulation ??? Nephrolithiasis hx of nephrostomy tube and posterior approach removal ??? HLD (hyperlipidemia) ??? Chronic venous insufficiency ??? TOM on CPAP ??? DVT (deep venous thrombosis) ??? PE (pulmonary embolism) 24 Hour Events Per staff/PT mobility improving Subjective: Pt seen with at bedside. Has been doing jeremi with ambulation and PT Denies CP, baseline sob stable. Eating, no n/v, denies Abd/RUQ pain. Urininating ok, no dysuria or gross hematuria. Denies paula bleeding, no change bruising/vlad stasis. reports that pt given vit K at [facility] prior to his transfer here. Physical Exam: Last Set of Vitals and range of vitals over past 24 hours: Last value Range last 24 hrs Temperature Temp: 36.5 ??C (97.7 ??F) Temp: [36.3 ??C (97.3 ??F)-36.8 ??C (98.2 ??F)] Heart Rate Heart Rate: 88 Heart Rate: [72-101] Blood Pressure BP: 113/65 mmHg BP: (113-159)/(48-89) Respiratory Rate Resp: 19 Resp: [18-20] SpO2 SpO2: 97 % SpO2: [95 %-99 %] I/O: 1.9 / 2.4 Physical Exam obese in NAD Answers questions approp hrirreg Lungs no c/w/r Abd obese, +bs, snt, alonso neg Le: chronic venous stasis changes stable Moves all ext Laboratory (Last 24 Hours): Recent Results (from the past 24 hour(s)) PROTHROMBIN TIME Result Value Range PT 13.8 12.5 - 15.5 sec INR 1.0 0.9 - 1.1 BASIC METABOLIC PANEL (NON-FASTING) Result Value Range Glucose Lvl 105 60 - 199 mg/dL BUN 20 10 - 20 mg/dL Creatinine 0.90 0.80 - 1.50 mg/dL Sodium 137 135 - 145 mmol/L Potassium 4.1 3.5 - 5.0 mmol/L Chloride 101 98 - 107 mmol/L CO2 24 22 - 31 mmol/L Anion Gap 12 5 - 15 mmol/L Calcium 9.6 8.5 - 10.5 mg/dL Estimated GFR >60 >=60 TELE: nonsuVT 4beats Other Studies: ERCP 09/09/14: Impression: - No evidence of CBD stone with filling into the cystic duct Recommendation: - Admit to medicine - Continue IV Zosyn - Surgery consult Assessment: 69 yo man with morbid obesity, TOM, HTN, chronic afib on coumadin, CAD, and kidney stones who presented with acute RUQ pain, elevated liver tests, and leukocytosis attributed to cholecystitis vs cholangitis. Underwent ERCP and sphincterotomy on 09/09/14 that was unremarkable, and afterward developed acute respiratory failure requiring intubation due to volume overload in the setting of IVF hydration at the referring hospital and during ERCP here. Now doing better after diuresis. Plan: Cholecystitis vs cholangitis -s/p sphincterotomy -completed course of zosyn -GI and Surgery recommend elective cholecystectomy as outpt - he and his will contact surgery if/when he is ready to consider that Respiratory failure due to volume overload, underlying TOM -improved with diuresis (approx 12L) -stable on reduced lasix to 20 bid -continue his usual BiPAP at night Afib -HR better with reduction metoprolol and starting cardizem -increase card to 60 q6 with hold parameters -INR still low 1 - reports pt had vit K at [facility] which will make control difficult -stop DVT lovenox and start lovenox bridge - disc proper dosing with pharmacy Pt/ states will take at home - has done before rx sent to pharmacy - ?if covered Nonsustained VTach -pt asymtomatic -check mag/K -cont w BB and increase card as above -outpt cardiology follow up HTN -sl elevated - increase card as above -continue metoprolol and lisinopril Hematuria, hx of kidney stones -resolved after holding lovenox as above - likely due to haque and lovenox but served as a reminderto resume his usual potassium citrate to prevent stones DVT proph - prophylactic lovenox Mobilize with PT and nursing Dispo - pts mobilty cont to improve, PT thinks will do ok at home with OT/PT Pt/ agree with going home Disc d/c planning with CRC rx for hosp bed signed Full code Pager [phone] IPI Certification I certify that I am a [facility]-H credentialed attending provider with admitting privileges and that the patient meets or has met medical necessity to require an inpatient IPI level of care meeting a minimumof two midnights or is on the [facility] inpatient only procedure list (status C) due to: monitoring of fluid status and the need for diuresis; iv antibiotics for cholecystitis vs cholangitis (completing today); titration of rate control regimen; titration of antihypertensive regimen. KARMEN SILVESTRE DO 09/19/2014 * Madison Stringer RN - 09/19/2014 1:05 PM EST OFFICE OF CARE MANAGEMENT CLINICAL SPANISH LECTURER PROGRESS NOTE CRC: Madison Stringer RN Pager #[phone] CRC Service: GI Hospitalist pager #[phone] Reviewed record and discussed pt in rounds with Charge/Resource RN, Fang, PT, CRC and with ProviderTeam. e-DH reviewed. Report received from Dr. Donovan Silvestre Patient continues to require acute inpatient care. Met with patient at bedside. Patient worked with PT this morning and may be able to manage at home.Patients Leah has already spoken to [facility] r/t hospital bed rental. They are aware that insurance may not cover cost and they are willing to rent a bed they also would like an over the bed table. [facility] Leah has been speaking with Arpan at [facility] Order has been pended and [facility] Patient does have a walker and cane at home and Leah will bring it in tomorrow to see if it is appropriate DME for patient size. If they are not the correct size patient and would like to use [facility] to obtain additional DME. Patient would like to use VNA services, PT/OT/RN/MARQU[facility]. PHONE: [phone] FAX: [phone] Plan: CRC will continue to follow for coordination of care and to facilitate discharge planning. * Sofía Alonso OT - 09/19/2014 10:01 AM EST Occupational Therapy Treatment Note Visit #: 2 Patient Dx: Jaime Crouch is a 69 y.o. male of Espinoza Vance MD, admitted on 09/09/2014with acute RUQ pain, elevated liver tests, and leukocytosis attributed to cholecystitis vs cholangitis. Patient underwent ERCP on 09/09/2014 and then developed acute respiratory failure which required intubation. He remained intubated for several days in the ICU to improve lung function. Patient extubated and transferred from ICU to [facility] on 09/13/2014. Patient overall doing well with increasing mobility, though some HR issues remain. Precautions/Special Considerations: High risk for skin breakdown, at risk to fall, telemetry monitoring, home BiPAP, bariatric, activity as tolerated, tender shins Interval History: Making good progress with mobility, HR irregular at times with increases with activity (noted up to 160 per tele with short ambulation distance in room with some SOB-though mostly in 90s-110s), haque discontinued Subjective: I'll do whatever you need me to do. Objective: Patient seen for therapeutic activities, with patient's present, and demonstrated the following: ?? UPDATE to home setup of main level: 3 steps to enter with newly installed railing on both sides.1/2 bathroom (NO bedroom) on main level, though spoke with medical equipment [employer] during session and plans to have hospital bed delivered for use on main level. Bed will take at least one dayto be delivered. Patient also able to borrow FWW-discussed ordering of bariatric walker but patientstating that one he is able to borrow should be sufficient for his needs (per note, patient's to bring home cane and walker tomorrow to ensure appropriate fit). ?? Education provided on self care needs and home management once discharged. Patient and patient'swife very receptive to home PT/OT and recommendations for home setup to increase patient's safety and independence with ADL participation when patient is home alone during much of the day. Patient's noting supportive neighbors able to check in and assist as needed when she is at work (schoolteacher) until about 3/3:30pm. Discussion provided on use of adaptive equipment and techniques. Discussion on managing needs while residing on main level of home initially (1/2 bath, [facility] hospital bed to be delivered, kitchen, dining/living room). Activities of Daily Living: UB dressing: Patient requiring minimal assistance to [facility] gown and independent in doffing. LB dressing: Patient continues at this time to require some assistance with LB dressing. Discussionon adaptive equipment and technique. Bathing: Discussion on use of shower chair/bench, non-slip surfaces, grab bars to increase patient safety with ADL's. Patient at this time continuing to sponge bath, with minimal assistance to reach portions of lower body. Toileting: Patient able to perform toilet transfer with supervision and use of FWW. Functional Mobility: Making significant progress since initial evaluation. Supine to Sit: Supervision, with HOB slightly elevated with pillows and verbal cues for positioningof LE's. Instructed in breathing exercises during efforts of sitting upright. Sit to Stand: Modified independent with use of bariatric walker from edge of chair. Sitting balance EOB: Good Standing balance: Fair-good with use of assistive devices and short ambulation distances. Slow pacing. Discussion on use of FWW at home for functional tasks (in front of sink, in kitchen, as patient may not need for ambulating, but may assist with balance and conserve energy as needed) Ambulation: About 80 feet with bariatric walker and supervision. HR ranging high 90s-112. Patient reporting this distance is more than household distances needed to ambulate for self care/functional mobility. Ambulated about 15 feet with cane and supervision. Patient ascended and descended 3 steps with OUTSOLE ROUNDER, with use of rail, cane, and contact guard-see OUTSOLE ROUNDER note for detail. Stand to sit: Modified independent with use of bariatric walker from edge of bed. Sit to supine: Supervision and verbal cues for LE positioning with HOB slightly raised with pillows. Endurance: Patient continues with deconditioning s/p hospital course, though with improving activity toleranceand functional mobility status. Patient with HR at most 120 for short duration after ascending/descending 3 stairs, though mostly 90s-112 for transfers and ambulation. Patient with some shortness of breath during bed mobility, though improved with breathing exercises. SpO2 remained stable in the 90's with patient on room air. Patient HR 73 at rest with 96% SpO2. Patient using home BiPAP when sleeping. Pain: Patient without reports of pain. Education: Patient/family education ongoing regarding safe home management, adaptive equipment/technique, discharge planning, role of home OT/PT, ADL participation, and recommendations. Patient and patient's verbalize understanding and note they will ask RN to page OT/PT if any further questions while hospitalized. Patient's taking notes and willing/receptive to obtaining equipment as needed to increase patient's safety, functional mobility, and functional independence once home. Patient and patient's agreeable to making accommodations for patient to reside on main level of home while home PT works on helping patient to manage full flight of stairs. Also recommended use of sponge bathing/seated showers (only 1/2 bath on main floor) initially until able to ambulate stairs with home PT and work with home OT for seated shower management. Staff Communication: Patient status and treatment recommendations discussed with RN, PT, OUTSOLE ROUNDER, and other staff. Assessment: The patient with significant functional improvement since OT initial evaluation. The patient continues with decreased strength, though able to ambulate household distances with use of assistive device and is with increased activity tolerance for ADL participation. The patient continues to present with impaired endurance, overall deconditioning, and unstable heart rate with minimal exertional activities which impair his ability to perform daily activities and functional mobility. Thepatient would benefit from rehab for strengthening and increasing endurance for ADL participation though the patient continues to be hesitant for inpatient rehab and hoping to discharge home to continue therapy. Much of the session today focused on therapeutic functional activities with education provided on safe home management. Patient and patient's were very receptive to recommendations. Patient was able to ambulate necessary stairs with OUTSOLE ROUNDER to enter home and patient's is currentlyin the process of setting up a hospital bed temporarily for placement on the main level to increasepatient's safety upon home discharge. With appropriate supports and recommendations in place (as discussed during today's session), the patient may be safe for discharge home with services, includinghome PT/OT and and neighbor support once medically ready. Patient would benefit from ongoing OT services to maximize functional independence while hospitalized. Discharge Recommendations: Patient would benefit from continued therapy interventions to increase functional independence and safety while improving activity tolerance and ADL participation. From an OT perspective, the patient may be safe to discharge home with services, including home PT/OT and sup port/assistance from and neighbors once medically ready. Patient's spoke with Gerald Schumacher during session regarding rental of hospital bed. Patient may need appropriate sized walker and cane if home assistive devices are not correct size (per note, patient's to bring in tomorrow). Patient able to ascend 3 steps to enter main level of home and reside on main level as needed. Occupational Therapy Goals: To be achieved by 09/21/2014. 1. Patient will demonstrate knowledge of precautions and limitations during functional mobility andADL's. Ongoing 2. Patient will perform toilet transfers with minimal assistance, using assistive device as needed.MET 3. Patient will perform LB dressing/bathing with minimal assistance and use of adaptive equipment as needed. 4. Patient will perform 2-3 hygiene grooming tasks while seated/standing at sink for 5 minutes withstable vitals and supervision. MET 5. Patient will demonstrate energy conservation principals with 4-5 ADL's with minimal verbal cues.Ongoing 6. Family/caregiver to demonstrate knowledge of therapeutic interventions to support the care of the patient. MET Plan: Patient to be seen 3-5x per week for therapy including Role of occupational therapy/rehabilitation, Transfers, Assistive device/technique, Adaptive equipment training, ADL, Breathing exercises,Positioning, Safety, Precautions/Protocol, Functional Mobility, Activity pacing/Energy conservation, Home Management, Balance, Recommendations, Family training and Discharge planning. Total time spent with patient: 66 minutes, 45 min co-treat with OUTSOLE ROUNDER (25 min OUTSOLE ROUNDER timed interventions) Total timed interventions: 41 minutes for TE-F x2, SCHM x1 Pager: [phone] Sofía Alonso, OTR/L Occupational Therapy Rehabilitation Department * Rosalva Finn PTA - 09/19/2014 9:30 AM EST Physical Therapy Note Treatment # 4 Patient profile: Patient is a 69 y.o. male of Karmen Leyva DO, admitted in transfer on09/09/2014 for ERCP to r/o acute cholecystitis. Pt intubated for procedure and required several days to improve lung function for extubation. 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 Objective: Pt seen with OT for exercise and self correction management to address goals. was present. Vital Signs: HR: 120 after stairs. < 120 for transfers and gait. SpO2: 90's on RA Pain:no complaints. Bed Mobility: Sit>-<supine: with HOB slightly elevated and supervision. Needed cues to move his LES toward the middle of the bed and assist for placement of pillows under his head. Patient also instructed toexhale on exertion of sitting upright. Balance: Sitting: Good. Standing/walking: Fair + Transfers: Sit><Stand to and from a bariatric FWW- modified independent. Gait: Pt ambulated ~15 feet with a single point cane and standby assist. Patient ambulated 80 feet with a bariatric front wheeled walker - supervision. Stairs: Patient was able to ascend 3 steps with rail, cane and contact guard going forward. Patient was able to descend 3 steps with rail, cane and contact guard going down backward. Education: patient has been educated on his current level of function, stair training, home safety with the recommendation that he stay on the first floor and the benefit of ongoing therapy with the patient verbalizing understanding. Patient status, treatment, and mobility recommendations discussed with nursing. Assessment: Patient is making steady progress with his bed mobility and transfers. He continue to need a walker for his endurance and balance but is ambulating at a household level. Patient was able to do the 3 stairs with rail, cane and contact guard to get into his house. He does not want to stayin the basement and was agreeable to staying on the main floor of his home while working with home PT to be able to manage the flight of stairs to his bedroom. is looking into getting a hospitalbed for the main floor. He has a walker and cane at home. Patient will be home alone while hisworking, but they indicated that there is a network of friends that will be checking in on the patient. Goals: To be achieved on this admit: Modified 09/14 1. Pt will tolerate transfers and mobility activities on RA with saturations in the 90's- Met 2. Pt will transfer supine to sit with min asst- Met 3. Pt will maintain sitting balance without UE support.- Met 4. Pt will ambulate x 25 ft with bariatric walker and SBA on RA- met 5. Pt will transfer bed to toilet with FWW and asst of 1- not assessed. Plan: Possible discharge home this week. PT will continue to follow while the patient remains in house. Discharge Recommendations: Home with PT services through home health. Total time spent with patient: 45 minutes. Total timed interventions: 25 minutes. Pager: [phone] ROSALVA FINN PTA 09/19/2014 Physical Therapy Rehabilitation Department * Katy Stubbs RN - 09/18/2014 6:22 PM EST Pt with chronic afib, HR below 50 at times today but not sustained. MD Silvestre aware and medicationadjusted. Pt denies SOB (does wear CPAP at night). Denies CP, nausea. Last value Range last 12 hrs Temperature Temp: 36.7 ??C (98.1 ??F) Temp: [36.6 ??C (97.9 ??F)-36.7 ??C (98.1 ??F)] Heart Rate Heart Rate: 81 Heart Rate: [70-81] Blood Pressure BP: 134/73 mmHg BP: (122-152)/(73-111) Respiratory Rate Resp: 18 Resp: [18] SpO2 SpO2: 95 % SpO2: [95 %-97 %] Continue to monitor with telemetry. Notify MD of any changes as ordered in nursing communication * Karmen Silvestre DO - 09/18/2014 2:59 PM EST Inpatient Hospital Medicine - Progress Note Admit Date: 09/09/2014 Hospital Day 9 days Problem List: Active Hospital Problems Diagnosis ??? Suspected cholecystitis vs cholangitis ??? Volume overload ??? Hypertension ??? Atrial fibrillation ??? TOM on CPAP Resolved Hospital Problems Diagnosis Date Resolved No resolved problems to display. Past Medical History Diagnosis Date ??? Kidney stone ??? Hypertension ??? ASCVD (arteriosclerotic cardiovascular disease) 1993 first [place] 1992, stent to LAD in 2006 ??? Atrial fibrillation chronic anticoagulation ??? Nephrolithiasis hx of nephrostomy tube and posterior approach removal ??? HLD (hyperlipidemia) ??? Chronic venous insufficiency ??? TOM on CPAP ??? DVT (deep venous thrombosis) ??? PE (pulmonary embolism) 24 Hour Events Started on card 30mg po q6 HR 48-140's Per staff increase with activity Subjective: Pt seen with at bedside. Says he feels better with reduced lasix and card. Denies cp or cough, sob with amb same Has walked in [place]. Eating ok. No abd pain, n/v Physical Exam: Last Set of Vitals and range of vitals over past 24 hours: Last value Range last 24 hrs Temperature Temp: 36.6 ??C (97.9 ??F) Temp: [36.3 ??C (97.3 ??F)-37.2 ??C (99 ??F)] Heart Rate Heart Rate: 70 Heart Rate: [70-86] Blood Pressure BP: 123/80 mmHg BP: (116-152)/(65-111) Respiratory Rate Resp: 18 Resp: [17-22] SpO2 SpO2: 95 % SpO2: [92 %-97 %] I/O: 1.9 / 2.4 Physical Exam AAOx3, obese, in NAD hrirreg Lungs no c/w/r Le: 1+ chronic venous stasis changes Laboratory (Last 24 Hours): Recent Results (from the past 24 hour(s)) PROTHROMBIN TIME Result Value Range PT 13.8 12.5 - 15.5 sec INR 1.0 0.9 - 1.1 BASIC METABOLIC PANEL (NON-FASTING) Result Value Range Glucose Lvl 105 60 - 199 mg/dL BUN 23 (*) 10 - 20 mg/dL Creatinine 0.91 0.80 - 1.50 mg/dL Sodium 141 135 - 145 mmol/L Potassium 4.1 3.5 - 5.0 mmol/L Chloride 102 98 - 107 mmol/L CO2 26 22 - 31 mmol/L Anion Gap 13 5 - 15 mmol/L Calcium 9.5 8.5 - 10.5 mg/dL Estimated GFR >60 >=60 Microbiology: Radiology: Other Studies: ERCP 09/09/14: Impression: - No evidence of CBD stone with filling into the cystic duct Recommendation: - Admit to medicine - Continue IV Zosyn - Surgery consult Assessment: 69 yo man with morbid obesity, TOM, HTN, chronic afib on coumadin, CAD, and kidney stones who presented with acute RUQ pain, elevated liver tests, and leukocytosis attributed to cholecystitis vs cholangitis. Underwent ERCP and sphincterotomy on 09/09/14 that was unremarkable, and afterward developed acute respiratory failure requiring intubation due to volume overload in the setting of IVF hydration at the referring hospital and during ERCP here. Now doing better after diuresis. Plan: Cholecystitis vs cholangitis -s/p sphincterotomy -completed course of zosyn -GI and Surgery recommend elective cholecystectomy as outpt - he and his will contact surgery if/when he is ready to consider that Respiratory failure due to volume overload, underlying TOM -improved with diuresis (approx 12L) -will reduce lasix to 20 bid -continue his usual BiPAP at night Afib - rate variable 48 and increase 120's with exertion - will reduce toprol to 50 q 12hr with hold parameters - continue cardizem 30mg po q 6hr -if has problems with BP or increased HR consider increase cardizem, d/w nursing HTN -continue metoprolol and lisinopril and cardizem Hematuria, hx of kidney stones -resolved after holding lovenox as above - likely due to haque and lovenox but served as a reminderto resume his usual potassium citrate to prevent stones DVT proph - prophylactic lovenox Mobilize with PT and nursing Dispo - expect rehab when stable and arranged D/w pt and again today Explained change meds, se, and plan of care All ? answered Full code Pager [phone] IPI Certification I certify that I am a D-H credentialed attending provider with admitting privileges and that the patient meets or has met medical necessity to require an inpatient IPI level of care meeting a minimumof two midnights or is on the [facility] inpatient only procedure list (status C) due to: monitoring of fluid status and the need for diuresis; iv antibiotics for cholecystitis vs cholangitis (completing today); titration of rate control regimen; titration of antihypertensive regimen. KARMEN SILVESTRE DO 09/18/2014 * Katy Price RN - 09/18/2014 6:32 AM EST Tele note: S: I want to go home. Pt denies CP and SOB. States I'm surprised I'm not nauseated from the new medication they started on me. Denies N/V. O: Vital signs documented throughout the shift as below: Last value Range last 12 hrs Temperature Temp: 36.3 ??C (97.3 ??F) Temp: [36.3 ??C (97.3 ??F)] Heart Rate Heart Rate: 74 Heart Rate: [74-86] Blood Pressure BP: 134/77 mmHg BP: (134-136)/(77-82) Respiratory Rate Resp: 17 Resp: [17-20] SpO2 SpO2: 94 % SpO2: [94 %-96 %] A: Per tele note: Pt in A fib/flutter with HR 70-140's/150's. HR elevation rare this shift and associated with activity. Has rare PVC's. P: Continue tele monitoring per MD orders. Continue dilt and metoprolol. * Karmen Silvestre DO - 09/17/2014 2:23 PM EST Inpatient Hospital Medicine - Progress Note Admit Date: 09/09/2014 Hospital Day 8 days Problem List: Active Hospital Problems Diagnosis ??? Suspected cholecystitis vs cholangitis ??? Volume overload ??? Hypertension ??? Atrial fibrillation ??? TOM on CPAP Resolved Hospital Problems Diagnosis Date Resolved No resolved problems to display. Past Medical History Diagnosis Date ??? Kidney stone ??? Hypertension ??? ASCVD (arteriosclerotic cardiovascular disease) 1993 first [place] 1992, stent to LAD in 2006 ??? Atrial fibrillation chronic anticoagulation ??? Nephrolithiasis hx of nephrostomy tube and posterior approach removal ??? HLD (hyperlipidemia) ??? Chronic venous insufficiency ??? TOM on CPAP ??? DVT (deep venous thrombosis) ??? PE (pulmonary embolism) 24 Hour Events Per nursing tachy with ambulation - no CP or palp, sob unchanged. Subjective: Pt seen with friends at bedside. Has ambulated - gets SOB which is slowly improving, no CP or Palp. Eating ok, no n/v or abd pain. Cough mild, nonprod. Thinks weakness slowly improving. Wants to go home - but if insists, will go to rehab as recommended Physical Exam: Last Set of Vitals and range of vitals over past 24 hours: Last value Range last 24 hrs Temperature Temp: 36.9 ??C (98.4 ??F) Temp: [36 ??C (96.8 ??F)-37.1 ??C (98.8 ??F)] Heart Rate Heart Rate: 80 Heart Rate: [71-114] Blood Pressure BP: 150/104 mmHg BP: (124-160)/(71-104) Respiratory Rate Resp: 20 Resp: [18-20] SpO2 SpO2: 93 % SpO2: [91 %-97 %] I/O: 1.9 / 2.4 Physical Exam AAOx3, obese, in NAD No scleral icteris HRIrregular, distant heart sounds Lungs: no c/w/r Abd: + bs,Soft, nontender, nondistended LE:Trace to 1+ edema chronic venous stasis changes b/l shins Laboratory (Last 24 Hours): Recent Results (from the past 24 hour(s)) COMPREHENSIVE METABOLIC PANEL (NON-FASTING) Result Value Range Glucose Lvl 106 60 - 199 mg/dL BUN 22 (*) 10 - 20 mg/dL Creatinine 0.91 0.80 - 1.50 mg/dL Sodium 141 135 - 145 mmol/L Potassium 3.9 3.5 - 5.0 mmol/L Chloride 102 98 - 107 mmol/L CO2 27 22 - 31 mmol/L Anion Gap 12 5 - 15 mmol/L Calcium 9.5 8.5 - 10.5 mg/dL Total Protein 6.9 6.4 - 8.3 gm/dL Albumin 3.2 3.2 - 5.2 gm/dL AST 33 0 - 39 unit/L ALT 55 0 - 55 unit/L Alk Phos 120 40 - 120 unit/L Total Bilirubin 1.3 0.2 - 1.3 mg/dL Bili, Direct 0.6 (*) 0.0 - 0.3 mg/dL Estimated GFR >60 >=60 PROTHROMBIN TIME Result Value Range PT 13.5 12.5 - 15.5 sec INR 1.0 0.9 - 1.1 Microbiology: Radiology: Other Studies: ERCP 09/09/14: Impression: - No evidence of CBD stone with filling into the cystic duct Recommendation: - Admit to medicine - Continue IV Zosyn - Surgery consult Assessment: 69 yo man with morbid obesity, TOM, HTN, chronic afib on coumadin, CAD, and kidney stones who presented with acute RUQ pain, elevated liver tests, and leukocytosis attributed to cholecystitis vs cholangitis. Underwent ERCP and sphincterotomy on 09/09/14 that was unremarkable, and afterward developed acute respiratory failure requiring intubation due to volume overload in the setting of IVF hydration at the referring hospital and during ERCP here. Now doing better after diuresis. Plan: Cholecystitis vs cholangitis -s/p sphincterotomy -completds course of zosyn -GI and Surgery recommend elective cholecystectomy as outpt - he and his will contact surgery if/when he is ready to consider that Respiratory failure due to volume overload, underlying TOM -improved with diuresis (approx 12L) -will reduce lasix to 20 bid -continue his usual BiPAP at night Afib - on toprol - probably no improvement with increase above 200 -will add low dose cardizem 30mg q6hr with hold parameters - risks/SE d/w pt -had been on full-dose lovenox but stopped it in setting of hematuria and flank ecchymosis - hematuria resolved now - back on coumadin and quasi-bridging with just prophylactic-dose lovenox given theprevious bleeding issues -coumadin 5 mg today -check INR in am HTN - sl elevated -continue metoprolol and lisinopril -add cardizem as above Hematuria, hx of kidney stones -resolved after holding lovenox as above - likely due to haque and lovenox but served as a reminderto resume his usual potassium citrate to prevent stones DVT proph - prophylactic lovenox Mobilize with PT and nursing Dispo - discussed with pt's via phone at his request, reviewed notes from PT - she prefers pt go To short term rehab. She has been in contact with [facility] and will contact them again Possible d/c Friday if rehab coordinated and improved Full code Pager [phone] IPI Certification I certify that I am a D-H credentialed attending provider with admitting privileges and that the patient meets or has met medical necessity to require an inpatient IPI level of care meeting a minimumof two midnights or is on the [facility] inpatient only procedure list (status C) due to: monitoring of fluid status and the need for diuresis; iv antibiotics for cholecystitis vs cholangitis (completing today); titration of rate control regimen; titration of antihypertensive regimen. KARMEN SILVESTRE DO 09/17/2014 * Sarah Conner RN - 09/17/2014 5:39 AM EST S: Pt denies any CP or SOB. O: Last value Range last 12 hrs Temperature Temp: 36.6 ??C (97.9 ??F) Temp: [36.4 ??C (97.5 ??F)-36.6 ??C (97.9 ??F)] Heart Rate Heart Rate: 88 Heart Rate: [88-114] Blood Pressure BP: 149/95 mmHg (given scheduled metoprolol) BP: (125-160)/(71-95) Respiratory Rate Resp: 20 Resp: [18-20] SpO2 SpO2: 97 % SpO2: [93 %-97 %] A: Tele strip reveals Afib/flutter 75-160's (rare), rare aberrant beats, PVC's, 4 beat run. P: Continue cardiac monitoring and Masimo compliance. ER * Berna Salas RN - 09/16/2014 6:47 PM EST Nurse Telemetry note S: Denies chest pain, SOB only with exertion. O: Vitals as per flowsheet, stable this shift Patient Vitals for the past 24 hrs: BP Temp Temp src Pulse Resp SpO2 09/16/14 1700 132/84 mmHg 36.8 ??C (98.2 ??F) Oral 113 19 91 % 09/16/14 1203 139/81 mmHg 36.8 ??C (98.2 ??F) Oral 122 18 96 % 09/16/14 1155 - - - 110 - - 09/16/14 1051 146/68 mmHg - - - - - 09/16/14 0930 - - - 90 - - 09/16/14 0910 129/73 mmHg 36.4 ??C (97.5 ??F) Oral 98 20 95 % 09/16/14 0519 149/89 mmHg 37.1 ??C (98.8 ??F) Oral 100 18 94 % 09/16/14 0044 140/70 mmHg 36.7 ??C (98.1 ??F) Oral 85 19 91 % 09/15/14 2139 141/90 mmHg - - 86 - - 09/15/14 2106 156/100 mmHg 36.8 ??C (98.2 ??F) Oral 95 20 95 % A: Telemetry report indicates Tachy 163 HR 90-160, MF couplet Rare PVCs, Afib QRS: 0.07, RR 0.73 QT 0.36 QTc 0.42 P: Continue telemetry monitoring per MD. Notify MD with any changes. Please reference Telemetry strip in pt chart * Rula Jones, PT - 09/16/2014 3:33 PM EST Physical Therapy Note Treatment # 3 Patient profile: Patient is a 69 y.o. male of Espinoza Vance MD, admitted in transfer on 09/09/2014 for ERCP to r/o acute cholecystitis. Pt intubated for procedure and required several days to improve lung function for extubation. Patient Active Problem List Diagnosis Code ??? Nephrolithiasis 592.0 ??? Phimosis 605 ??? Hypertension 401.9 ??? Suspected cholecystitis vs cholangitis 575.10 ??? Atrial fibrillation 427.31 ??? TOM on CPAP 327.23 ??? Volume overload 276.69 Past Surgical History Procedure Laterality Date ??? Lithotripsy ??? Total hip arthroplasty Bilateral ??? Cystoscopy for BPH ??? Coronary angioplasty with stent placement 2007 LAD ??? Kidney stone surgery Left removal of stones: nephrolithotomy ??? 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 Objective: Pt seen for PT this afternoon for PT. Vital Signs: HR: 78><153 SpO2:92% on RA. Pain: No complaint. Skin: discolored and tender skin shins. Scabs, mepilex in place Bed Mobility: Not witness today. Balance: Sitting: Good. Standing/walking: Fair + Transfers: Sit><Stand to and from a bariatric FWW, contact guard assist of 1, VC for technique. Gait: Pt ambulated ~ 130 ft with a bariatric FWW, contact guard/supervision assist of 1, assist of 1 other to follow with a chair, VC for pacing technique. Exercises: Verbally reviewed ankle pumps and LAQ. Informed Consent: The patient agrees to and understands the PT treatment plan and goals; discussed recommendation forrehab Education: patient has been educated on Role of therapy, bed mobility, safety, transfers, and verbalizes understanding. Patient status, treatment, and mobility recommendations discussed with nursing. Assessment: Pt was pleasant and appreciative of working with PT in the late afternoon. Pt is demonstrating increase tolerance and daily progress with bed mobility, transfers, gait activities. Pt's heart rate continues to increase with functional activities, as reported by the tele-monitor. Pt is deconditioned and far from his baseline and would benefit from skilled therapeutic rehab prior to homed/c. Goals: To be achieved on this admit: Modified 09/14 1. Pt will tolerate transfers and mobility activities on RA with saturations in the 90s 2. Pt will transfer supine to sit with min asst 3. Pt will maintain sitting balance without UE support. 4. Pt will ambulate x 25 ft with bariatric walker and SBA on 5. Pt will transfer bed to toilet with FWW and asst of 1 GOAL Added: 6. Pt will be able to ascend at least 3 but up to 12 stairs if progresses enough to return home. Plan: Continue PT per PT POC on Friday. Continue to ambulate with nursing 3 times as day. Contact guard/supervision of Pt and assist of 1 other to follow with a chair. Pt to be seen daily for therapy including Bed mobility, Transfers, Stairs, Gait , Activity pacing/Energy conservation and Discharge planning. Discharge Recommendations: pt and spouse would like to go home but pt would benefit from rehab to restore baseline functional strength, independence and safety. Reassess Friday Total time spent with patient: 20 minutes Total timed interventions: 15 minutes TEF Pager: [phone] SKY DEAN, OUTSOLE ROUNDER 09/16/2014 Physical Therapy Rehabilitation Department . * Andre Martinez, FRUCTOSE LOADER - 09/16/2014 2:53 PM EST Speech-Language Pathology Progress Note Total Treatment Time: 25 min. tx Total Timed Code Treatment: 0 min. Summary Staff Communication / Recommendations: ?? Diet: Regular solids and thin liquids ?? Follow Standard Aspiration Precautions (Feed only when alert; Sit upright for all PO intake; Small, single bites and sips; Check mouth for pocketing / provide oral care after PO; Remain upright for 10-15 minutes after PO intake) S: ?? Pt denies pain at this time. ?? Pt reports occasional difficulties with swallowing liquids when distracted. ?? Pt states he is hoping he goes home vs rehabilitation facility. ?? No confusion or memory difficulties observed by Pt's . Pt denies confusion/memory difficulties. O: Pt seen for dysphagia follow-up. Pt oriented x4. Goals: ?? Pt will tolerate least restrictive diet without overt s/s aspiration or dysphagia utilizing therapeutic interventions of thermal stimulation, oral-motor exercises, NMES, to improve swallow effectiveness and safety. -PO Trials: Thin Liquids, Regular Solid Bites -Oral Phase: Pt demonstrated appropriate bolus manipulation/control and AP transit time. No oral residuals present. -Pharyngeal Phase: Pt tolerated all consistencies trialed with no overt s/s of aspiration. No compensatory swallowing strategies necessary. ?? Pt / caregivers will follow aspiration precautions, diet modifications, and safe swallowing strategies to allow adequate, safe PO intake. Results and recommendations reviewed with Pt, Pt's and RN. A: Dx: ?? No overt s/s of dysphagia on this date. Pt tolerating regular solids and thin liquids without overt s/s of aspiration. No SOB or increased WOB noted. All goals met. No further skilled ST is warranted at this time. P: ?? D/C skilled speech therapy. ?? Pt/family are in agreement with treatment plan. Thank you for this consult with this patient. Please feel free to page me with any questions or concerns. Andre Martinez MS, CCC-FRUCTOSE LOADER Inpatient Rehabilitation Medicine Pager:#[phone] * Espinoza Crawford MD - 09/16/2014 10:30 AM EST Inpatient Hospital Medicine - Progress Note Admit Date: 09/09/2014 Hospital Day 7 days Problem List: Active Hospital Problems Diagnosis ??? Suspected cholecystitis vs cholangitis ??? Volume overload ??? Hypertension ??? Atrial fibrillation ??? TOM on CPAP Resolved Hospital Problems Diagnosis Date Resolved No resolved problems to display. Past Medical History Diagnosis Date ??? Kidney stone ??? Hypertension ??? ASCVD (arteriosclerotic cardiovascular disease) 1993 first [facility] 1992, stent to LAD in 2006 ??? Atrial fibrillation chronic anticoagulation ??? Nephrolithiasis hx of nephrostomy tube and posterior approach removal ??? HLD (hyperlipidemia) ??? Chronic venous insufficiency ??? TOM on CPAP ??? DVT (deep venous thrombosis) ??? PE (pulmonary embolism) 24 Hour Events / Subjective: No events overnight. Breathing comfortably at rest now. Reports tachycardia when working with PT. Otherwise no new complaints. Physical Exam: Last Set of Vitals and range of vitals over past 24 hours: Last value Range last 24 hrs Temperature Temp: 36.8 ??C (98.2 ??F) Temp: [36.4 ??C (97.5 ??F)-37.1 ??C (98.8 ??F)] Heart Rate Heart Rate: 114 Heart Rate: [85-122] Blood Pressure BP: 131/77 mmHg BP: (129-160)/(68-94) Respiratory Rate Resp: 19 Resp: [18-20] SpO2 SpO2: 91 % SpO2: [91 %-96 %] I/O: 1.9 / 2.4 Physical Exam AAOx3, obese, only slightly labored respirations today - improved Anicteric Irregular, distant heart sounds CTAB anteriorly Soft, nontender, nondistended Trace to 1+ edema in all 4 extremities, chronic venous stasis changes b/l shins Laboratory (Last 24 Hours): Recent Results (from the past 24 hour(s)) COMPREHENSIVE METABOLIC PANEL (NON-FASTING) Result Value Range Glucose Lvl 118 60 - 199 mg/dL BUN 25 (*) 10 - 20 mg/dL Creatinine 1.02 0.80 - 1.50 mg/dL Sodium 143 135 - 145 mmol/L Potassium 3.9 3.5 - 5.0 mmol/L Chloride 104 98 - 107 mmol/L CO2 26 22 - 31 mmol/L Anion Gap 13 5 - 15 mmol/L Calcium 9.4 8.5 - 10.5 mg/dL Total Protein 7.1 6.4 - 8.3 gm/dL Albumin 3.0 (*) 3.2 - 5.2 gm/dL AST 35 0 - 39 unit/L ALT 59 (*) 0 - 55 unit/L Alk Phos 131 (*) 40 - 120 unit/L Total Bilirubin 1.4 (*) 0.2 - 1.3 mg/dL Bili, Direct 0.6 (*) 0.0 - 0.3 mg/dL Estimated GFR >60 >=60 PROTHROMBIN TIME Result Value Range PT 13.1 12.5 - 15.5 sec INR 0.9 0.9 - 1.1 MAGNESIUM Result Value Range Magnesium 0.87 0.69 - 1.07 mmol/L HEMOGRAM Result Value Range WBC 9.3 4.0 - 10.0 x10(3)/mcL RBC 5.10 4.63 - 6.08 x10(6)/mcL Hemoglobin 15.4 13.7 - 17.5 gm/dL Hematocrit 47.5 40.0 - 51.0 % MCV 93.1 (*) 79.0 - 92.0 fL MCH 30.2 25.6 - 32.2 pg MCHC 32.4 32.0 - 36.5 gm/dL Platelets 245 145 - 370 x10(3)/mcL RDWSD 54.9 (*) 35.0 - 46.0 fL RDWCV 16.1 (*) 10.9 - 14.4 % MPV 10.0 9.0 - 12.0 fL DIFFERENTIAL, AUTOMATED Result Value Range Neutrophils % 73.6 Neutr Abs (ANC) 6.86 (*) 1.50 - 6.30 x10(3)/mcL Lymphocytes % 14.1 Lymphocytes Abs 1.3 1.0 - 3.6 x10(3)/mcL Monocytes % 6.8 Monocyte Abs 0.6 0.2 - 1.0 x10(3)/mcL Eosinophils % 3.4 Eosinophils Abs 0.3 0.0 - 0.5 x10(3)/mcL Basophils % 0.6 Basophils Abs 0.1 0.0 - 0.2 x10(3)/mcL Immature Gran % 1.50 Do Gran Abs 0.14 (*) 0.00 - 0.05 x10(3)/mcL NUCLEATED RED BLOOD CELLS Result Value Range nRBC % Auto 0.0 nRBC Abs Auto 0.000 0.000 - 0.012 x10(3)/mcL Microbiology: Radiology: Other Studies: ERCP 09/09/14: Impression: - No evidence of CBD stone with filling into the cystic duct Recommendation: - Admit to medicine - Continue IV Zosyn - Surgery consult Assessment: 69 yo man with morbid obesity, TOM, HTN, chronic afib on coumadin, CAD, and kidney stones who presented with acute RUQ pain, elevated liver tests, and leukocytosis attributed to cholecystitis vs cholangitis. Underwent ERCP and sphincterotomy on 09/09/14 that was unremarkable, and afterward developed acute respiratory failure requiring intubation due to volume overload in the setting of IVF hydration at the referring hospital and during ERCP here. Now doing better after diuresis. Plan: Cholecystitis vs cholangitis -s/p sphincterotomy -completes course of zosyn today -GI and Surgery recommend elective cholecystectomy as outpt - he and his will contact surgery if/when he is ready to consider that Respiratory failure due to volume overload, underlying TOM -seems to still be a little volume overloaded but approaching euvolemia now - continue his usual lasix 40 mg po bid and adjust or give additional iv lasix as needed -continue his usual BiPAP at night Afib -titrate metoprolol as needed for rate control - currently on 200 mg/day - monitor on tele - consider increasing if HR poorly controlled with exertion -had been on full-dose lovenox but stopped it in setting of hematuria and flank ecchymosis - hematuria resolved now - started him back on coumadin and quasi- bridging with just prophylactic-dose lovenox given the previous bleeding issues -coumadin 3 mg today HTN -continue metoprolol -resumed his lisinopril at reduced dose since it had been off for several days - ramp back up to his usual 40 mg as needed / tolerated - increase to 20 mg today Hematuria, hx of kidney stones -resolved after holding lovenox as above - likely due to haque and lovenox but served as a reminderto resume his usual potassium citrate to prevent stones DVT proph - prophylactic lovenox Mobilize with PT and nursing Dispo - anticipate d/c to home vs rehab in the next few days depending on progress with PT Full code Pager [phone] IPI Certification I certify that I am a D-H credentialed attending provider with admitting privileges and that the patient meets or has met medical necessity to require an inpatient IPI level of care meeting a minimumof two midnights or is on the [facility] inpatient only procedure list (status C) due to: monitoring of fluid status and the need for diuresis; iv antibiotics for cholecystitis vs cholangitis (completing today); titration of rate control regimen; titration of antihypertensive regimen. ESPINOZA CRAWFORD MD 09/16/2014 * Sarah Conner RN - 09/16/2014 6:28 AM EST S: Pt denies CP and SOB. O: Last value Range last 12 hrs Temperature Temp: 37.1 ??C (98.8 ??F) Temp: [36.7 ??C (98.1 ??F)-37.1 ??C (98.8 ??F)] Heart Rate Heart Rate: 100 Heart Rate: [85-100] Blood Pressure BP: 149/89 mmHg BP: (140-156)/(70-100) Respiratory Rate Resp: 18 Resp: [18-20] SpO2 SpO2: 94 % SpO2: [91 %-95 %] A: Tele strip reveals Afib 90-120's (rare 140's), rare PVC's , aberrant beats, triplet, and non-sustained VT. P: Continue cardiac monitoring and Masimo compliance. * Berna Salas RN - 09/15/2014 6:06 PM EST Nurse Telemetry note S: Denies chest pain and SOB this shift O: Vitals as per flowsheet, stable this shift Patient Vitals for the past 24 hrs: BP Temp Temp src Pulse Resp SpO2 09/15/14 1804 149/95 mmHg - - - - - 09/15/14 1733 161/105 mmHg - - - - - 09/15/14 1708 117/90 mmHg 36.4 ??C (97.5 ??F) Oral 124 20 96 % 09/15/14 1328 137/90 mmHg 36.4 ??C (97.5 ??F) Oral 84 22 95 % 09/15/14 1157 134/70 mmHg - - 84 - - 09/15/14 1126 144/93 mmHg - - 115 - - 09/15/14 1036 - - - - 20 - 09/15/14 0923 156/81 mmHg 36.6 ??C (97.9 ??F) Oral 80 20 90 % 09/15/14 0811 133/82 mmHg - - 81 - 93 % 09/15/14 0520 140/86 mmHg 35.9 ??C (96.6 ??F) Oral 80 18 93 % 09/15/14 0137 157/92 mmHg 36.8 ??C (98.2 ??F) Oral 84 20 93 % 09/14/14 2332 158/92 mmHg - - 116 - - 09/14/14 2128 157/94 mmHg 37.5 ??C (99.5 ??F) Oral 102 18 90 % A: Telemetry report indicates Rare ELDER (HR 90-150), Rare CPTS/Occ M/F PVCs, A. Fib QRS 0.10 RR 0.67 QT 0.34 Qtc 0.41 P: Continue telemetry monitoring per MD. Notify MD with any changes. Please reference Telemetry strip in pt chart * Jeffrey Parry - 09/15/2014 3:36 PM EST Inspector Barrel Encounter Note Patient Name: Jaime Crouch : [id number] MR#: [id number] Admit Date: 09/09/2014 6:20 PM Hospital Day 6 days Narrative:Visited to introduce and assess acceptance of Inspector Barrel services.Pt was awake, alert oriented, pleasant and in bed. Pt says that he is feeling better and hoping to go home after few days. Pt is living with and has two grown up sons who are living in other states. Pt is working and shared that his is healthy and always there to help and support. Assessment:Patient coping positively with stresses of illness/hospitalization at this time.pt has family care and support. Pt is working and hoping to get better and go to work. Pt loves [employer] spirituality and that is source of comfort and peace. Pt is accepting sufferings as a part of human life and deal with it. Intervention and Outcome:Provided emotional, spiritual support and encouraging presence. Pt expressed thankfulness for visiting. Inspector Barrel services accepted.Conversation to build trusting relationship.Provided pastoral presence.Provided spiritual guidance.Provided supportive counseling. Follow-up: yes Time in Direct Care:15 Mins Jeffrey Parry 09/15/2014 * Espinoza Crawford MD - 09/15/2014 3:02 PM EST Inpatient Hospital Medicine - Progress Note Admit Date: 09/09/2014 Hospital Day 6 days Problem List: Active Hospital Problems Diagnosis ??? Suspected cholecystitis vs cholangitis ??? Volume overload ??? Hypertension ??? Atrial fibrillation ??? TOM on CPAP Resolved Hospital Problems Diagnosis Date Resolved No resolved problems to display. Past Medical History Diagnosis Date ??? Kidney stone ??? Hypertension ??? ASCVD (arteriosclerotic cardiovascular disease) 1993 first [facility] 1992, stent to LAD in 2006 ??? Atrial fibrillation chronic anticoagulation ??? Nephrolithiasis hx of nephrostomy tube and posterior approach removal ??? HLD (hyperlipidemia) ??? Chronic venous insufficiency ??? TOM on CPAP ??? DVT (deep venous thrombosis) ??? PE (pulmonary embolism) 24 Hour Events / Subjective: No events overnight. Diuresed 1.9 L last 24 hrs on his usual po lasix. Breathing less labored today. No abdominal pain. Ready for haque to come out. HR mostly in 90-110's on tele. Physical Exam: Last Set of Vitals and range of vitals over past 24 hours: Last value Range last 24 hrs Temperature Temp: 36.4 ??C (97.5 ??F) Temp: [35.9 ??C (96.6 ??F)-37.5 ??C (99.5 ??F)] Heart Rate Heart Rate: 84 Heart Rate: [80-116] Blood Pressure BP: 137/90 mmHg BP: (133-160)/(70-95) Respiratory Rate Resp: 22 Resp: [18-22] SpO2 SpO2: 95 % SpO2: [90 %-95 %] Intake/Output Summary (Last 24 hours) at 09/15/14 1503 Last data filed at 09/15/14 1300 Gross per 24 hour Intake 2018 ml Output 3400 ml Net -1382 ml Physical Exam AAOx3, obese, only slightly labored respirations today - improved Anicteric Irregular, distant heart sounds CTAB anteriorly Soft, nontender, large area of ecchymosis LLQ/L flank - soft with no appreciable hematoma Trace to 1+ edema in all 4 extremities - improving Laboratory (Last 24 Hours): Recent Results (from the past 24 hour(s)) COMPREHENSIVE METABOLIC PANEL (NON-FASTING) Result Value Range Glucose Lvl 108 60 - 199 mg/dL BUN 24 (*) 10 - 20 mg/dL Creatinine 0.99 0.80 - 1.50 mg/dL Sodium 142 135 - 145 mmol/L Potassium 3.8 3.5 - 5.0 mmol/L Chloride 103 98 - 107 mmol/L CO2 26 22 - 31 mmol/L Anion Gap 13 5 - 15 mmol/L Calcium 9.3 8.5 - 10.5 mg/dL Total Protein 6.9 6.4 - 8.3 gm/dL Albumin 2.8 (*) 3.2 - 5.2 gm/dL AST 36 0 - 39 unit/L ALT 67 (*) 0 - 55 unit/L Alk Phos 133 (*) 40 - 120 unit/L Total Bilirubin 1.5 (*) 0.2 - 1.3 mg/dL Bili, Direct 0.7 (*) 0.0 - 0.3 mg/dL Estimated GFR >60 >=60 PROTHROMBIN TIME Result Value Range PT 13.2 12.5 - 15.5 sec INR 0.9 0.9 - 1.1 HEMOGRAM Result Value Range WBC 10.3 (*) 4.0 - 10.0 x10(3)/mcL RBC 5.22 4.63 - 6.08 x10(6)/mcL Hemoglobin 15.8 13.7 - 17.5 gm/dL Hematocrit 48.7 40.0 - 51.0 % MCV 93.3 (*) 79.0 - 92.0 fL MCH 30.3 25.6 - 32.2 pg MCHC 32.4 32.0 - 36.5 gm/dL Platelets 212 145 - 370 x10(3)/mcL RDWSD 54.7 (*) 35.0 - 46.0 fL RDWCV 16.0 (*) 10.9 - 14.4 % MPV 10.1 9.0 - 12.0 fL DIFFERENTIAL, AUTOMATED Result Value Range Neutrophils % 70.7 Neutr Abs (ANC) 7.26 (*) 1.50 - 6.30 x10(3)/mcL Lymphocytes % 14.2 Lymphocytes Abs 1.5 1.0 - 3.6 x10(3)/mcL Monocytes % 9.8 Monocyte Abs 1.0 0.2 - 1.0 x10(3)/mcL Eosinophils % 2.8 Eosinophils Abs 0.3 0.0 - 0.5 x10(3)/mcL Basophils % 0.7 Basophils Abs 0.1 0.0 - 0.2 x10(3)/mcL Immature Gran % 1.80 Do Gran Abs 0.18 (*) 0.00 - 0.05 x10(3)/mcL NUCLEATED RED BLOOD CELLS Result Value Range nRBC % Auto 0.0 nRBC Abs Auto 0.000 0.000 - 0.012 x10(3)/mcL Microbiology: Radiology: Other Studies: ERCP 09/09/14: Impression: - No evidence of CBD stone with filling into the cystic duct Recommendation: - Admit to medicine - Continue IV Zosyn - Surgery consult Assessment: 69 yo man with morbid obesity, TOM, HTN, chronic afib on coumadin, CAD, and kidney stones who presented with acute RUQ pain, elevated liver tests, and leukocytosis attributed to cholecystitis vs cholangitis. Underwent ERCP and sphincterotomy on 09/09/14 that was unremarkable, and afterward developed acute respiratory failure requiring intubation due to volume overload in the setting of IVF hydration at the referring hospital and during ERCP here. Now extubated and doing better after diuresis. Plan: Cholecystitis vs cholangitis -s/p sphincterotomy -will continue zosyn for 7 days from ERCP (stop date tomorrow 09/16) -discuss with surgery re: elective cholecystectomy as outpt - mentioned a surgeon that they have already spoken to - will clarify with her Respiratory failure due to volume overload, underlying TOM -seems to still be a little volume overloaded but approaching euvolemia now - continue his usual lasix 40 mg po bid and adjust or give additional iv lasix as needed -continue his usual BiPAP at night Afib -titrate metoprolol as needed for rate control - currently on 200 mg/day - monitor on tele - may need to go to 300 mg/day -has been on full-dose lovenox but stopped it in setting of hematuria and flank ecchymosis - hematuria resolved now - started him back on coumadin and quasi- bridging with just prophylcatic-dose lovenox given the previous bleeding issues HTN -continue metoprolol -resumed his lisinopril at reduced dose of 10 mg since it had been off for several days - follow BPand renal fcn and ramp lisinopril back up to his usual 40 mg as needed/tolerated Hematuria, hx of kidney stones -resolved after holding lovenox as above - likely due to haque and lovenox but serves as a reminderto resume his usual potassium citrate to prevent stones D/C haque today Mobilize with PT DVT proph - SCD's, prophylactic lovenox Full code Pager [phone] IPI Certification I certify that I am a D-H credentialed attending provider with admitting privileges and that the patient meets or has met medical necessity to require an inpatient IPI level of care meeting a minimumof two midnights or is on the [facility] inpatient only procedure list (status C) due to: monitoring of fluid status given an inability to regulate fluid balance and the need for administration or restriction of fluids and acute respiratory compromise and/or hypoxia requiring assessment every 4 hours and the ability to respond immediately to the patient's need; iv antibiotics for cholecystitis vs cholangitis. ESPINOZA CRAWFORD MD 09/15/2014 * Sky Dean, OUTSOLE ROUNDER - 09/15/2014 3:02 PM EST Physical Therapy Note Treatment # 3 Patient profile: Patient is a 69 y.o. male of Espinoza Vance MD, admitted in transfer on 09/09/2014 for ERCP to r/o acute cholecystitis. Pt intubated for procedure and required several days to improve lung function for extubation. Patient Active Problem List Diagnosis Code ??? Nephrolithiasis 592.0 ??? Phimosis 605 ??? Hypertension 401.9 ??? Suspected cholecystitis vs cholangitis 575.10 ??? Atrial fibrillation 427.31 ??? TOM on CPAP 327.23 ??? Volume overload 276.69 Past Surgical History Procedure Laterality Date ??? Lithotripsy ??? Total hip arthroplasty Bilateral ??? Cystoscopy for BPH ??? Coronary angioplasty with stent placement 2007 LAD ??? Kidney stone surgery Left removal of stones: nephrolithotomy ??? 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 I kind of feel out of it sometimes. Objective: Pt seen for PT this afternoon for PT. Vital Signs: HR: 78><108, telemetry called, HR to 153s SpO2: 89><91% on RA. Pain: No complaint. Skin: discolored and tender skin shins. Scabs, mepilex in place Bed Mobility: Sit->Supine with HOB flat, supervision/contact guard assist of 1, VC for technique. Balance: Sitting: Good. Standing/walking: Fair + Transfers: Sit><Stand to and from a bariatric FWW x 2, contact guard assist of 1, VC for technique. Gait: Pt ambulated ~ 25 ft x 2 with a bariatric FWW, contact guard assist of 1, assist of 1 other to follow with a chair, VC for pacing technique. Exercises: ankle pumps, LAQ's 2 sets x 10 reps, VC for technique. Informed Consent: The patient agrees to and understands the PT treatment plan and goals; discussed recommendation forrehab Education: patient has been educated on Role of therapy, bed mobility, safety, transfers, and verbalizes understanding. Patient status, treatment, and mobility recommendations discussed with nursing. Assessment: Pt was pleasant and willing to participate in PT this afternoon. Pt tolerate PT activities fairly well. Pt is making slow daily progress with bed mobility, transfers and exercise activities. Pt is making good progress with gait activities but is still limited to short distances secondary to elevated heart rate as reported by tele-monitor. Pt is far from his baseline and would benefit from skilled therapeutic rehab prior to home d/c. Goals: To be achieved on this admit: Modified 09/14 1. Pt will tolerate transfers and mobility activities on RA with saturations in the 90s 2. Pt will transfer supine to sit with min asst 3. Pt will maintain sitting balance without UE support. 4. Pt will ambulate x 25ft with bariatric walker and SBA on RA 5. Pt will transfer bed to toilet with FWW and asst of 1 6. Plan: Continue PT per PT POC. Gait, safety, breathing exercises, endurance. Pt to be seen daily for therapy including Bed mobility, Transfers, Stairs, Gait , Activity pacing/Energy conservation and Discharge planning. Discharge Recommendations: pt and spouse would like to go home but pt would benefit from rehab to restore baseline functional strength, independence and safety. Total time spent with patient: 30 minutes Total timed interventions: 28 minutes TEF Pager: [phone] SKY DEAN, OUTSOLE ROUNDER 09/15/2014 Physical Therapy Rehabilitation Department * Katy Price, RN - 09/15/2014 6:31 AM EST Tele note: S: Pt denies CP and SOB this shift. O: Vital signs monitored throughout the shift as below. Last value Range last 12 hrs Temperature Temp: 35.9 ??C (96.6 ??F) Temp: [35.9 ??C (96.6 ??F)-36.8 ??C (98.2 ??F)] Heart Rate Heart Rate: 80 Heart Rate: [80-116] Blood Pressure BP: 140/86 mmHg BP: (140-158)/(86-94) Respiratory Rate Resp: 18 Resp: [18-20] SpO2 SpO2: 93 % SpO2: [90 %-93 %] A: Per tele note: Pt's HR irregular; labeled A fib with singles and pairs PVC's. Rate up to 150 nonsustained (was note notified of this). HR typically sustaines 90's-110's at rest. P: Continue tele monitoring per MD orders. Continue administration of scheduled metoprolol. * Bruna Duron RN - 09/14/2014 6:29 PM EST Cardiac/Telemetry Nursing Progress Note [id number] Subjective: Denies CP, palpitations, nausea. Reports SOB w/exertion. Objective: Vital Signs: See Vital signs below Cardiac Meds: See online MAR Labs: See labs in online chart. Assessment: Tele strip reveals occ mf pvc's, HR 95-165, afib. Of note, high HR was reported by teletech while pt was up in room ambulating for first time w/PT. Pt recovered after a few minutes and auscultated HR 100. HR auscultated before giving cardiac meds. Plan: Continue telemetry monitoring. Notify MD of any changes. See Attached Tele Strip. (in green paper chart). Last value Range last 12 hrs Temperature Temp: 36.8 ??C (98.2 ??F) Temp: [36.4 ??C (97.5 ??F)-36.8 ??C (98.2 ??F)] Heart Rate Heart Rate: 86 Heart Rate: [86-108] Blood Pressure BP: 160/95 mmHg BP: (143-162)/(73-98) Respiratory Rate Resp: 18 Resp: [18] SpO2 SpO2: 93 % SpO2: [93 %-95 %] * Espinoza Crawford MD - 09/14/2014 5:26 PM EST Inpatient Hospital Medicine - Progress Note Admit Date: 09/09/2014 Hospital Day 5 days Problem List: Active Hospital Problems Diagnosis ??? Suspected cholecystitis vs cholangitis ??? Volume overload ??? Hypertension ??? Atrial fibrillation ??? TOM on CPAP Resolved Hospital Problems Diagnosis Date Resolved No resolved problems to display. Past Medical History Diagnosis Date ??? Kidney stone ??? Hypertension ??? ASCVD (arteriosclerotic cardiovascular disease) 1993 first [facility] 1992, stent to LAD in 2006 ??? Atrial fibrillation chronic anticoagulation ??? Nephrolithiasis hx of nephrostomy tube and posterior approach removal ??? HLD (hyperlipidemia) ??? Chronic venous insufficiency ??? TOM on CPAP ??? DVT (deep venous thrombosis) ??? PE (pulmonary embolism) 24 Hour Events / Subjective: BP markedly increased overnight; otherwise, no events overnight. Hematuria resolved now. Breathing still a little labored. Diuresed another 2.8 L yesterday. No abdominal pain. Physical Exam: Last Set of Vitals and range of vitals over past 24 hours: Last value Range last 24 hrs Temperature Temp: 36.4 ??C (97.5 ??F) Temp: [36.4 ??C (97.5 ??F)-36.8 ??C (98.2 ??F)] Heart Rate Heart Rate: 108 Heart Rate: [74-114] Blood Pressure BP: 143/73 mmHg BP: (143-186)/(73-104) Respiratory Rate Resp: 18 Resp: [18-22] SpO2 SpO2: 95 % SpO2: [92 %-96 %] Physical Exam AAOx3, obese, mildly labored respirations but NAD Anicteric Irregular, distant heart sounds CTAB anteriorly Soft, nontender, large area of ecchymosis LLQ/L flank - soft with no appreciable hematoma Trace to 1+ edema in all 4 extremities - improved today Laboratory (Last 24 Hours): Recent Results (from the past 24 hour(s)) COMPREHENSIVE METABOLIC PANEL (NON-FASTING) Result Value Range Glucose Lvl 108 60 - 199 mg/dL BUN 26 (*) 10 - 20 mg/dL Creatinine 1.01 0.80 - 1.50 mg/dL Sodium 143 135 - 145 mmol/L Potassium 3.7 3.5 - 5.0 mmol/L Chloride 103 98 - 107 mmol/L CO2 28 22 - 31 mmol/L Anion Gap 12 5 - 15 mmol/L Calcium 9.6 8.5 - 10.5 mg/dL Total Protein 6.7 6.4 - 8.3 gm/dL Albumin 3.1 (*) 3.2 - 5.2 gm/dL AST 34 0 - 39 unit/L ALT 81 (*) 0 - 55 unit/L Alk Phos 140 (*) 40 - 120 unit/L Total Bilirubin 1.7 (*) 0.2 - 1.3 mg/dL Bili, Direct 0.9 (*) 0.0 - 0.3 mg/dL Estimated GFR >60 >=60 PROTHROMBIN TIME Result Value Range PT 13.2 12.5 - 15.5 sec INR 0.9 0.9 - 1.1 HEMOGRAM Result Value Range WBC 9.4 4.0 - 10.0 x10(3)/mcL RBC 5.16 4.63 - 6.08 x10(6)/mcL Hemoglobin 15.2 13.7 - 17.5 gm/dL Hematocrit 48.3 40.0 - 51.0 % MCV 93.6 (*) 79.0 - 92.0 fL MCH 29.5 25.6 - 32.2 pg MCHC 31.5 (*) 32.0 - 36.5 gm/dL Platelets 201 145 - 370 x10(3)/mcL RDWSD 56.1 (*) 35.0 - 46.0 fL RDWCV 16.4 (*) 10.9 - 14.4 % MPV 9.9 9.0 - 12.0 fL DIFFERENTIAL, AUTOMATED Result Value Range Neutrophils % 71.5 Neutr Abs (ANC) 6.73 (*) 1.50 - 6.30 x10(3)/mcL Lymphocytes % 14.8 Lymphocytes Abs 1.4 1.0 - 3.6 x10(3)/mcL Monocytes % 9.2 Monocyte Abs 0.9 0.2 - 1.0 x10(3)/mcL Eosinophils % 2.6 Eosinophils Abs 0.2 0.0 - 0.5 x10(3)/mcL Basophils % 0.6 Basophils Abs 0.1 0.0 - 0.2 x10(3)/mcL Immature Gran % 1.30 Do Gran Abs 0.12 (*) 0.00 - 0.05 x10(3)/mcL SCAN, PERIPHERAL BLOOD Result Value Range Plat Estimate Normal RBC Morphology Normal Atypical Lymph Moderate Giant Platelets Less than 1 Laboratory (Last 24 Hours): CBC stable Cr improved to 1.06 Bili's trending down Microbiology: Radiology: Other Studies: ERCP 09/09/14: Impression: - No evidence of CBD stone with filling into the cystic duct Recommendation: - Admit to medicine - Continue IV Zosyn - Surgery consult Assessment: 69 yo man with morbid obesity, TOM, HTN, chronic afib on coumadin, CAD, and kidney stones who presented with acute RUQ pain, elevated liver tests, and leukocytosis attributed to cholecystitis vs cholangitis. Underwent ERCP and sphincterotomy on 09/09/14 that was unremarkable, and afterward developed acute respiratory failure requiring intubation due to volume overload in the setting of IVF hydration at the referring hospital and during ERCP here. Now extubated and doing better after diuresis. Plan: Cholecystitis vs cholangitis -s/p sphincterotomy -will continue zosyn for 7 days from ERCP (stop date 09/16) -discuss with surgery re: elective cholecystectomy as outpt Respiratory failure due to volume overload, underlying TOM -seems to still be volume overloaded - will resume his usual lasix 40 mg po bid and adjust or give additional iv lasix as needed -continue his usual BiPAP at night Afib -titrate metoprolol as needed for rate control -has been on full-dose lovenox but stopped it in setting of hematuria and flank ecchymosis - hematuria resolved now - will start him back on coumadin and quasi- bridge with just prophylcatic-dose lovenox given these other bleeding issues HTN -metoprolol -resume his lisinopril given severe HTN now - start at reduced dose since it has been off for several days - ramp back up to 40 mg as needed/tolerated Hematuria, hx of kidney stones -resolved after holding lovenox as above - likely due to haque and lovenox but serves as a reminderto resume his usual potassium citrate to prevent stones PT/OT/ST consults DVT proph - SCD's, resume lovenox at proph dose Full code Pager [phone] IPI Certification I certify that I am a [facility] credentialed attending provider with admitting privileges and that the patient meets or has met medical necessity to require an inpatient IPI level of care meeting a minimumof two midnights or is on the [facility] inpatient only procedure list (status C) due to: monitoring of fluid status given an inability to regulate fluid balance and the need for administration or restriction of fluids and acute respiratory compromise and/or hypoxia requiring assessment every 4 hours and the ability to respond immediately to the patient's need; iv antibiotics for cholecystitis vs cholangitis. ESPINOZA CRAWFORD MD 09/14/2014 * Sky Dean PTA - 09/14/2014 4:12 PM EST Physical Therapy Note 09/14/14 Pt was seen in conjunction with Supervising PT for 30 minutes of therapeutic functional. See Supervising PT note for detailed information. Sky Dean PTA Pager # [phone] * Rula Jones PT - 09/14/2014 2:10 PM EST Physical Therapy Visit #2 Treatment Note Patient profile: Patient is a 69 y.o. male of Espinoza Vance MD, admitted in transfer on 09/09/2014 for ERCP to r/o acute cholecystitis. Pt intubated for procedure and required several days to improve lung function for extubation. Patient Active Problem List Diagnosis Code ??? Nephrolithiasis 592.0 ??? Phimosis 605 ??? Hypertension 401.9 ??? Cholecystitis 575.10 ??? Atrial fibrillation 427.31 ??? TOM on CPAP 327.23 ??? Volume overload 276.69 Past Surgical History Procedure Laterality Date ??? Lithotripsy ??? Total hip arthroplasty Bilateral ??? Cystoscopy for BPH ??? Coronary angioplasty with stent placement 2007 LAD ??? Kidney stone surgery Left removal of stones: nephrolithotomy ??? 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 at bedside Vital Signs: HR: 92-112, telemetry called, HR to 160s SpO2: 94% on RA, desatted to 88% with standing, maintained sats in low 90s on RA on 2L NC Airway clearance: strong cough, clears airway Pain: LLE sciatic pain with standing, R foot pain, restarted on gout meds Skin: discolored and tender skin shins. Scabs, mepilex in place ROM: no obvious limitations beyond soft tissue girth Strength: rolls and able to pull on bedrail, took wt on B LEs with support of IV pole, knees blocked Motor Control: improving today, moves all 4s equally Bed Mobility: Rolls with moderate assist of 1 to have lift pad placed. Used trapeze to boost up in bed with asst of 2 Semi-supine <-> Sit with moderate assist x 2 and Provided platform for EOB sitting for ADLsession Balance: Sit: satEOB with UE support and platform under feet. Stand: mod asst of 2 from chair with rocking motion,progressed to min asst of 2 with rocking motion Transfers: lifted to chair with nursing, changed pad, Sit to stand with mod asst of 2 and FWW, took a few small steps, seat deflated to decrease bed height Requires mechanical lift at this time: yes With nursing Gait: 4-5 ft x2 with FWW and mod asst of 2/chair to follow. Informed Consent: The patient agrees to and understands the PT treatment plan and goals; discussed recommendation forrehab Education: patient has been educated on Role of therapy, bed mobility, safety, transfers, and verbalizes understanding. Patient status, treatment, and mobility recommendations discussed with nursing. Assessment: Pt tolerated EOB sitting today with support. Still has LOB in sitting without UE support. Desatted on RA with standing, needed supplemental oxygen for mobility and ambulation. Max asst of2 for most activities, being lifted with mechanical lift. Able to transfer bed to chair with 2PT staff. Limited endurance, decreased safety, impaired pulmonary reserve, early fatigue. Pt surprised and recognized that he is weaker than he expected. Discussed rehab stay with pt and , also with CRC and MD. Pt not safe for home d/c and would benefit from a rehab stay prior to returning home. Goals: To be achieved on this admit: Modified 09/14 1. Pt will tolerate transfers and mobility activities on RA with saturations in the 90s 2. Pt will transfer supine to sit with min asst 3. Pt will maintain sitting balance without UE support. 4. Pt will ambulate x 25ft with bariatric walker and SBA on RA 5. Pt will transfer bed to toilet with FWW and asst of 1 Plan: transfered to floor to lift room;continue with transfers, Gait, safety, breathing exercises, endurance. Pt to be seen daily for therapy including Bed mobility, Transfers, Stairs, Gait , Activity pacing/Energy conservation and Discharge planning. Discharge Recommendations: pt and spouse would like to go home but pt would benefit from rehab to restore baseline functional strength, independence and safety. Total time spent with patient: 54 minutes am and pm with OT and OUTSOLE ROUNDER Total timed interventions: 24 minutes TEF Pager: [phone] RULA JONES, PT 09/14/2014 Physical Therapy Rehabilitation Department * Andre Martinez, FRUCTOSE LOADER - 09/14/2014 1:47 PM EST Speech-Language Pathology Progress Note Total Treatment Time: 13 min. tx Total Timed Code Treatment: 0 min. Summary Staff Communication / Recommendations: ?? Diet: Regular solids and thin liquids ?? Supervision and cues. ?? Swallow 2x per sip. ?? Follow posted Aspiration Precautions (Feed only when alert; Sit upright for all PO intake; Small, single bites and sips; Check mouth for pocketing / provide oral care after PO; Remain upright for 10-15 minutes after PO intake) S: ?? Pt denies pain at this time. Pt reports occasional right foot pain. ?? Pt denies swallowing difficulties. ?? RN reports no overt s/s of aspiration observed. O: Pt seen for dysphagia follow-up. Goals: ?? Pt will tolerate least restrictive diet without overt s/s aspiration or dysphagia utilizing therapeutic interventions of thermal stimulation, oral-motor exercises, NMES, to improve swallow effectiveness and safety. -PO Trials: Thin Liquids, Regular Solid Bites -Oral Phase: Pt demonstrated appropriate bolus manipulation/control and AP transit time. No oral residuals present. -Pharyngeal Phase: Pt tolerated small sips of thin liquids with consecutive dry swallow with no overt s/s aspiration. Pt demonstrated occasional throat clearing without additional dry swallow strategy. No overt s/s of aspiration noted with trials of regular solids. Pt presented with increased HR (97 bpm to 125) during PO intake. Increased SOB/WOB noted towards end of trials. Timely swallow initiat ion noted. ?? Pt / caregivers will follow aspiration precautions, diet modifications, and safe swallowing strategies to allow adequate, safe PO intake. Results and recommendations reviewed with Pt, Pt's and RN. Pt unable to state compensatory swallowing strategies accurately or perform independently at start of care. Pt required minimal cues by the end of the session to perform two swallows per sip to eliminate overt s/s of aspiration with thin liquids. A: Dx: ?? Resolved oral phase dysphagia. Pt presents with overt s/s of pharyngeal phase dysphagia characterized by occasional throat clearing (suspect d/t pharyngeal residuals) with thin liquids. Compensatory swallowing strategies were effective in eliminating overt s/s of aspiration. Recommend a least restrictive diet of regular solids and thin liquids with aspiration precautions and compensatory swallowing strategies in place. P: ?? Speech Pathology to follow 3-5x/week while hospitalized. ?? Pt/family are in agreement with treatment plan. Thank you for this consult with this patient. Please feel free to page me with any questions or concerns. Andre Martinez, MS, CCC-FRUCTOSE LOADER Inpatient Rehabilitation Medicine Pager:#[phone] * Madison Stringer RN - 09/14/2014 10:59 AM EST OFFICE OF CARE MANAGEMENT CLINICAL SPANISH LECTURER PROGRESS NOTE CRC: Madison Stringer RN Pager #[phone] CRC Service:GI Hospitalist pager #[phone] Reviewed record and discussed pt in rounds with Charge/Resource RN, avionics integration engineer, PT, CRC and with ProviderTeam. e- reviewed. Report received from Dr. Crawford Patient continues to require acute inpatient care. Patient is currently receiving IV Abx. Clinical Buncher Hand Transfer Note: Met with patient/family to introduce role of CRC on 2W unit. Transferred from: ICU Medical issues: ERCP to r/o acute cholecystitis. Pt intubated for procedure and required several days to improve lung function for extubation. Active problems include: Volume overload ??? Hypertension ??? Cholecystitis ??? Atrial fibrillation ??? 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 He drives, hasa second floor office in [facility] [place]; per climbs stairs both at his office and at home. Home is 3 story; bedroom and bathroom on the second floor; there is also a bathroom on the first floor. Pt uses a cane in bad weather.[...] Dominique 09/12/14 Patient working with PT/OT Ongoing needs: Patient working with OT during this interview. Patient and are very hopeful that patient will not require a SNF and will be able to go home. At this time patient has not walked with PT/OT. His works fri-fri and he has no one that would be able to stay with him during the day, emergencies only. They also have a 100lb dog at home. Patient goals: Patient wants to go home but understands that he may require some rehab to be strongenough to manage home alone. Discharge planning: TBD r/t patients physical ability upon being medically ready for discharge. Patient will at the least require VNA but will more then likely need SNF rehab. Patient would benefit from acute/SNF/swing/LTAC rehab at discharge. Full Disclosure Statement provided, as appropriate. ?? Met with patient/family at bedside. Discussed [facility], Office of Care Management letter from the Jar Capper pertaining to rehab referrals.. ?? Reviewed levels of rehab including SNF, swing, acute and LTAC. ?? A list that serves the geographical area which the patient resides or the geographical area requested has been provided through [employer] search. ?? Requested patient/family provide at least three choices for referral. ?? Patient/family [facility] to [facility]. [facility] [address] [place] [address] 2. [facility] (Swing) [address] [place] [address] 3. [facility] PHONE: [phone] FAX: [phone] Note routed to Speeder Worker who will communicate referrals to facilities via [employer] program. Discussed transportation options with patient and . Explained that wheelchair van base rate is around $35 and $2.50/mile after. We discussed the potential need for ambulance. Unsure of what the patients insurance will cover. This CRC will follow up with patients insurance if an ambulance is needed. They have Blue Cross Blue Shield through the patients and state they do not have Medicare. This is different then what is listed in patients chart. I will ask WATER TEAM LEADER to look into insurance coveragefor the family. Plan: CRC will continue to follow for coordination of care and to facilitate discharge planning. * Eldon Wilson RCP - 09/14/2014 4:58 AM EST Pt wore home unit overnight with NARD. Pt tolerates well. Will continue to monitor. * Miri Munoz RN - 09/13/2014 8:15 PM EST Pt appeared more alert last night then the night before. No c/o pain. Urine in haque drain bag pink. CPAP used at bedtime. Antibiotics infusing. Pt on a specialty mattress with a trapeze over the bedto allow pt to better reposition himself. Staff assisted pt to reposition about every Q 2 hr. BP elevated at 0100 186/95. MD notified and additional 25 mg metoprolol ordered and given. Pt had no c/o pain or other issues. Per telemetry report: Afib, HR 95-120 bpm, Rare sinus beats seen, PVC rare couplets, occ MF PVCs. No acute events. Tele report placed in patient's chart. * Karrie Munguia RN - 09/13/2014 6:35 PM EST Patient Name:Jaime Crouch Telemetry Note Diagnosis r/t telemetry:Afib Objective: See care plan note for days details VS: see Doc flow sheet Cardiac meds: see MAR Assessment:Afib (HR 90-120). Pt denied any SOB/CP Plan: continue tele monitoring, assess hemodynamic tolerance of dysrythmia, see tele strip (attached) * Rula Jones, PT - 09/13/2014 3:30 PM EST Physical Therapy Visit #2 Treatment Note Patient profile: Patient is a 69 y.o. male of Espinoza Vance MD, admitted in transfer on 09/09/2014 for ERCP to r/o acute cholecystitis. Pt intubated for procedure and required several days to improve lung function for extubation. Patient Active Problem List Diagnosis Code ??? Nephrolithiasis 592.0 ??? Phimosis 605 ??? Hypertension 401.9 ??? Cholecystitis 575.10 ??? Atrial fibrillation 427.31 ??? TOM on CPAP 327.23 Past Surgical History Procedure Laterality Date ??? Lithotripsy ??? Total hip arthroplasty Bilateral ??? Cystoscopy for BPH ??? Coronary angioplasty with stent placement 2007 LAD ??? Kidney stone surgery Left removal of stones: nephrolithotomy ??? 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 at bedside Participating; good spirits, still dozes off at times Vital Signs: Last value Range last 8 hrs Temperature Temp: 36.7 ??C (98.1 ??F) Temp: [36.7 ??C (98.1 ??F)-37.1 ??C (98.8 ??F)] Heart Rate Heart Rate: 82 Heart Rate: [52-82] Blood Pressure BP: 128/72 mmHg BP: (118-128)/(72-77) Respiratory Rate Resp: 18 Resp: [16-19] SpO2 SpO2: 94 % SpO2: [94 %-96 %] HR: 84 a-fib SpO2: 97% on RA Airway clearance: strong cough, clears airway Pain: LLE sciatic pain with standing Skin: discolored and tender skin shins. Scabs, mepilex in place ROM: no obvious limitations beyond soft tissue girth Strength: rolls and able to pull on bedrail, took wt on B LEs with support of IV pole, knees blocked Motor Control: improving today, moves all 4s equally Bed Mobility: Rolls with moderate assist of [address]/remove bed jones Used trapeze to boost up in bed with asst of 2 Semi-supine <-> Sit with moderate assist x1 and use of bed Tolerates chair position of bed: yes; tolerated dangle Balance: Sit: satEOB with bed rail and min asst Stand: limited standing tolerance due to Transfers:mod asst with bed mobility, max inflated then foot deflated before standing. Sit to stand with mod asst of 2, blocked knees. Stood very briefly Requires mechanical lift at this time: yes Gait: stood at EOB briefly, IV pole for support, wide walker did not get transferred with pt, another being found Informed Consent: The patient agrees to and understands the PT treatment plan and goals; would benefit from repetition Education: patient has been educated on Role of therapy, bed mobility, safety, transfers, and verbalizes understanding. Patient status, treatment, and mobility recommendations discussed with nursing. Assessment: Pt transferred to 2W, bed changed out. Pt OOB via lift earlier, able to get on/off bedpan with assist. Tolerated EOB sitting and then stood briefly. Still dozes off at times. Pt and have the goal of going home at the end of the week. Pt motivated to mobilize. Bed surface height presents a challenge to progressing to remains sedated and slow to process information and move; should mobilize with less assist when more like self; standing, transferring OOB and walking remain to be assessed Goals: To be achieved on this admit: 1. Maintain ROM in neck, trunk, and extremities. 2. Assist pt in maintaining clear airway. 3. Assist pt in maintaining skin and joint integrity through positioning. 4. Pt will participate in mobility progression toward upright as tolerated/appropriate. 5. Pt will participate in active/active assisted exercise to promote strength and ROM for functional mobility 6. Ambulation as tolerated without assistive device 7. Stairs, at least 1 flight prior to d/c Plan: transfer to floor to lift room; assess stand, transfer, ambulation with walker; pt will need to negotiate several stairs to return home and avoid rehab placment post d/c; pt does not use assistive devices to ambulate normally Pt to be seen daily for therapy including Bed mobility, Transfers, Stairs, Gait , Activity pacing/Energy conservation and Discharge planning. Discharge Recommendations: pt and spouse would like pt home; may need rehab if goals not achieved Total time spent with patient: 25 minutes Total timed interventions: 25 minutes TEF Pager: [phone] RULA JONES, PT 09/13/2014 Physical Therapy Rehabilitation Department * Devika Red LD - 09/13/2014 12:35 PM EST Nutrition Progress Note: S: Per pt: I just want a drink of water. Appetite: Pt reports having all of his breakfast this morning Chewing/Swallowing: See FRUCTOSE LOADER note N/V: No issues per pt O: Patient Active Problem List Diagnosis Code ??? Nephrolithiasis 592.0 ??? Phimosis 605 ??? Hypertension 401.9 ??? Cholecystitis 575.10 ??? Atrial fibrillation 427.31 ??? TOM on CPAP 327.23 Past Medical History Diagnosis Date ??? Kidney stone ??? Hypertension ??? ASCVD (arteriosclerotic cardiovascular disease) 1993 first NH 1992, stent to LAD in 2006 ??? Atrial fibrillation chronic anticoagulation ??? Nephrolithiasis hx of nephrostomy tube and posterior approach removal ??? HLD (hyperlipidemia) ??? Chronic venous insufficiency ??? TOM on CPAP ??? DVT (deep venous thrombosis) ??? PE (pulmonary embolism) Diet: Low Na+ (Dysphagai soft, thickened liquids at time of assessment) Height: 178 cm Admit Weight: 186 kg BMI: 58.8 Skin Integrity: R leg venous ulcer and blister to penis see wound care note. Labs: BUN: 23, Albumin: 2.7, Bili T: 2.2, Bili D: 1.6, Alk Phos: 158, AST: 49, ALT: 137 Medications: Miralax, Lipitor, others noted A: RD consulted for disease process. Pt seen this morning. He was on a dysphagia soft diet with thickened liquids at time of assessment. Pt reports good po intake this morning and asks when he will be off his current diet restriction. Pt diet has since been changed to low Na+. Recommend a 2 gm Na+,[facility] (Heart Healthy) diet. Pt just extubated yesterday and still fairly tired today. Dicussed that weight loss and following a heart healthy diet would be ideal residential. Nutrition will continue to follow pt and provide education on follow up. P: 1. Recommend a 2 gm Na+, Heart Healthy diet. 2. Monitor weight. 3. Nutrition to follow throughout hospital stay. * Andre Martinez SLP - 09/13/2014 12:17 PM EST Speech-Language Pathology Progress Note Total Treatment Time: 28 min. tx Total Timed Code Treatment: 0 min. Summary Staff Communication / Recommendations: ?? Diet: Regular solids and thin liquids ?? Swallow 2x per sip. ?? Follow posted Aspiration Precautions (Feed only when alert; Sit upright for all PO intake; Small, single bites and sips; Check mouth for pocketing / provide oral care after PO; Remain upright for 10-15 minutes after PO intake) S: ?? Pt denies pain at this time. ?? Pt reports he does not enjoy drinking thickened liquids. O: Pt seen for dysphagia follow-up. Goals: ?? Pt will tolerate least restrictive diet without overt s/s aspiration or dysphagia utilizing therapeutic interventions of thermal stimulation, oral-motor exercises, NMES, to improve swallow effectiveness and safety. -PO Trials: Ice chips, Thin Liquids, Regular Solid Bites -Oral Phase: Pt demonstrated appropriate bolus manipulation/control and AP transit time. No oral residuals present. -Pharyngeal Phase: Pt tolerated small sips of thin liquids with consecutive dry swallow with no overt s/s aspiration. Pt demonstrated occasional throat clearing without additional dry swallow strategy. Pt demonstrated immediate coughing with consecutive sips of thin liquids via straw. No overt s/s of aspiration noted with trials of regular solids. No SOB or increased WOB noted on this date. Timely swallow initiation noted. ?? Pt / caregivers will follow aspiration precautions, diet modifications, and safe swallowing strategies to allow adequate, safe PO intake. Results and recommendations reviewed with Pt, Pt's and RN. paged regarding new diet consistency recommendations. A: Dx: ?? Resolved oral phase dysphagia. Pt presents with overt s/s of pharyngeal phase dysphagia characterized by occasional throat clearing (suspect d/t pharyngeal residuals) and immediate coughing with consecutive sips of thin liquids. Recommend a least restrictive diet of regular solids and thin liquids with aspiration precautions and compensatory swallowing strategies in place. P: ?? Speech Pathology to follow 3-5x/week while hospitalized. ?? Pt/family are in agreement with treatment plan. Thank you for this consult with this patient. Please feel free to page me with any questions or concerns. Andre Martinez, MS, CCC-FRUCTOSE LOADER Inpatient Rehabilitation Medicine Pager:#[phone] * Espinoza Crawford MD - 09/13/2014 10:30 AM EST Inpatient Hospital Medicine - Progress Note Admit Date: 09/09/2014 Problem List: Active Hospital Problems Diagnosis ??? Volume overload ??? Hypertension ??? Cholecystitis ??? Atrial fibrillation ??? TOM on CPAP Resolved Hospital Problems Diagnosis Date Resolved No resolved problems to display. Past Medical History Diagnosis Date ??? Kidney stone ??? Hypertension ??? ASCVD (arteriosclerotic cardiovascular disease) 1993 first NH 1992, stent to LAD in 2006 ??? Atrial fibrillation chronic anticoagulation ??? Nephrolithiasis hx of nephrostomy tube and posterior approach removal ??? HLD (hyperlipidemia) ??? Chronic venous insufficiency ??? TOM on CPAP ??? DVT (deep venous thrombosis) ??? PE (pulmonary embolism) 24 Hour Events / Subjective: Transferred to floor. No events overnight. Having hematuria this morning and also has a large bruise on L flank at site of lovenox injection. Breathing is much improved but still a little SOB with minimal exertion like repositioning in bed. Diuresed another 2.8 L yesterday. No abdominal pain. Physical Exam: AFVSS, HR 80's, SBP 110-120's, CPAP overnight, on room air now Physical Exam AAOx3, more alert today, obese, NAD Anicteric Irregular, distant heart sounds CTAB anteriorly Soft, nontender, large area of ecchymosis LLQ/L flank - soft with no appreciable hematoma 1+ edema in all 4 extremities Laboratory (Last 24 Hours): CBC stable Cr improved to 1.06 Bili's trending down Microbiology: Radiology: Other Studies: ERCP 09/09/14: Impression: - No evidence of CBD stone with filling into the cystic duct Recommendation: - Admit to medicine - Continue IV Zosyn - Surgery consult Assessment: 69 yo man with morbid obesity, TOM, HTN, chronic afib on coumadin, CAD, and kidney stones who presented with acute RUQ pain, elevated liver tests, and leukocytosis attributed to cholecystitis vs cholangitis. Underwent ERCP and sphincterotomy on 09/09/14 that was unremarkable, and afterward developed acute respiratory failure requiring intubation due to volume overload in the setting of IVF hydration at the referring hospital and during ERCP here. Now extubated and doing better after diuresis. Plan: Cholecystitis vs cholangitis -s/p sphincterotomy -continue zosyn -discuss with surgery re: elective cholecystectomy once he is more stable Respiratory failure due to volume overload, underlying TOM -seems to be approaching euvolemia - difficult to know if he still needs diuresis - hold off on further diuresis for now and monitor -continue his usual BiPAP at night Afib -titrate metoprolol as needed for rate control -has been on full-dose lovenox but will hold for today in setting of hematuria and flank ecchymosis -transition back to coumadin eventually HTN -metoprolol -holding his lisinopril for now given normal BP Hematuria -hold lovenox as above, monitor PT/OT/ST consults DVT proph - SCD's, hold lovenox today given bleeding issues Full code Pager [phone] IPI Certification I certify that I am a [facility] credentialed attending provider with admitting privileges and that the patient meets or has met medical necessity to require an inpatient IPI level of care meeting a minimumof two midnights or is on the [facility] inpatient only procedure list (status C) due to: monitoring of fluid status given an inability to regulate fluid balance and the need for administration or restriction of fluids and acute respiratory compromise and/or hypoxia requiring assessment every 4 hours and the ability to respond immediately to the patient's need; iv antibiotics for cholecystitis vs cholangitis. ESPINOZA CRAWFORD MD 09/14/2014 * Eldon Wilson RCP - 09/13/2014 5:57 AM EST Pt wore home unit overnight. Pt tolerates well. Pt had NARD. Will continue to monitor and treat pt accordingly. * Drea Eubanks RN - 09/12/2014 9:23 PM EST 21:25 - Tele called, uncomfortable w/ ordered parameters for telemetry monitoring (low 40bpm - [id number]) as they feel it is too great of a range. They asked to set the minimum alarm to 60 bpm. * Suni Steele RRT - 09/12/2014 3:55 PM EST Mr. Crouch received this am intubated on PSV with below settings after passing SBT earlier this morning. He was extubated and remained on NC throughout rest of shift without incident. Plan to use pt's home Bipap machine for TOM history this evening. 09/12/14 0724 Ventilator Settings Ventilator Mode PS Set FiO2 30 % Set PEEP (cm H2O) 5 PS Above PEEP (cm H2O) 10 Ventilator Measurements Resp 15 Tidal Volume Spontaneous (mL) 505 Mean Airway Pressure (cm H2O) 9 Minute Ventilation Total Exhaled (L/min) 11.6 SpO2 96 % ETCO2 (mmHg) 63 mmHg * Cynthia Davis Jr., MD - 09/12/2014 2:00 PM EST Critical Care Attending Daily Progress Note Author CYNTHIA DAVIS JR, MD Date 09/12/2014 I saw and examined this patient in the critical care unit. Active Problems 1. S/p ERCP 2. Pulmonary edema, clinically resolved 3. TMO on CPAP at home 4. Hypercarbic respiratory failure, mechanically ventilated. Trial of extubation 5. Difficult airway Physical Exam General Critically ill, alert, endotracheally intubated and mechanically ventilated Lungs CTA(B) Heart RR, no murmurs Abdomen Soft, non-distended. BS(+) Extremities No C/C. Trace brawny lower extremity edema (B) with (B) venous stasis changes Neuro RASS 0 Respiratory Support PSV 10/5 0.30 Imaging CXR stable relative to yesterday Assessment, Management, and Decision Making 1. Passed SBT again this AM. (+) cuff leak test. Continued diuresis. Trial of extubation. [place] scope available for emergent reintubation if required 2. Speech eval prior to restarting oral food and medications 3. Increase acitvity as tolerated 4. Routine ICU prophylaxis 5. When successfully extubated, monitor for ~ 6 hour. If remains stable, can transfer out to Hospital Medicine for ongoing medical management, [trinidad] I certify that the patient requires inpatient care status as outlined in CMS Guidelines and based on current medical issues, as outlined above. Is this patient critically ill? Is there a high potential of sudden, clinically significant, or life threatening deterioration? Yes Is there a need for direct personal assessment and management to treat/prevent multiple vital organfailure/deterioration? Yes Patient is critically ill with these diagnoses being managed by the Critical Care Team: ARDS PA Catheter Hyponatremia 1 Hypoxemic Resp Failure Cardiogenic Shock Hypernatremia Pneumonia req Ventilator Acute Myocardial Infarction Hyperkalemia Hypercarbic Resp Failure Subarachnoid Hemorrhage Acute Drug Ingestion / OD Respiratory Acidosis Traumatic Brain Injury Acute Renal Failure Acute Resp Failure Coma Acute Liver Failure Metabolic Acidosis Stupor Thrombocytopenia Hypotension, Fluids Delirium Neutropenia Hypotension, Pressors Acute Encephalopathy Hypertensive Emergency Sepsis Ascites Req Treatment Malnutrition Septic Shock with SIRS Coagulopathy Req Treatment Anaphylaxis Active Hemorrhage I personally performed 30 minutes of aggregate critical care time exclusive of procedures and teaching. This includes time spent during direct patient evaluation and reassessment, interpreting diagnostic tests, directing life and/or organ supporting interventions and documentation on the unit. --Tien Davis MD * Andre Martinez SLP - 09/12/2014 1:48 PM EST Speech-Language Pathology Bedside Swallow Evaluation 1947 Total Treatment Time: 55 min. swallow eval Total Timed Code Treatment: 0 min. Medical History: Order received and completed with this 69 y.o. male admitted on 09/09/2014 from [facility] for ERCP secondary to clinical picture consistent with acute cholecystitis vs ascending cholangitis. Pt found to be difficult to intubate. Pt being treated with Zosyn for acute cholecystitis, Pt is not a candidate for a cholecystectomy at present secondary to likely GI infection. Pt remained intubated following procedure secondary to concern for pulmonary edema. Pt extubated to OR this AM. CXR performed 09/11/14 revealed low lung volumes with pulmonary edema stable or slightly improved, with mild patchy left lobeatelectasis or pneumonia. Pt's past medical history significant for TOM, requiring CPAP at home. Speech consulted to perform bedside swallow evaluation. Past Medical History: Past Medical History Diagnosis Date ??? Kidney stone ??? Hypertension ??? ASCVD (arteriosclerotic cardiovascular disease) 1993 first NH 1992, stent to LAD in 2006 ??? Atrial fibrillation chronic anticoagulation ??? Nephrolithiasis hx of nephrostomy tube and posterior approach removal ??? HLD (hyperlipidemia) ??? Chronic venous insufficiency ??? TOM on CPAP ??? DVT (deep venous thrombosis) ??? PE (pulmonary embolism) Summary Staff Communication / Recommendations: ?? Diet: Dysphagia soft solids and nectar thickened liquids ?? Medications whole in applesauce or whole with nectar thickened liquids. ?? Follow posted Aspiration Precautions (Feed only when alert; Sit upright for all PO intake; Small, single bites and sips; Check mouth for pocketing / provide oral care after PO; Remain upright for 10-15 minutes after PO intake) S: ?? Pt denies pain at this time. ?? Pt does not demonstrate any overt s/s discomfort at this time. ?? Pt denies swallowing difficulties prior to hospitalization. ?? Pt's present for evaluation and providing Pt assistance with suctioning needs. Precautions: Fall Risk, High Risk for skin breakdown Current Diet: NPO Cognitive-Linguistic Status: alert, Ox3, able to follow simple directions and respond to basic questions Respiratory Status: pt on O2 nasal cannula; 3L Feeding / Oral Care Status: pt requires cues and / or assistance; Seating and Positioning: pt requires some support / assistance to sit upright; Functional Oral Intake Scale ([place] 2005) 1 - No oral intake 2 - Tube dependent with minimal oral intake 3 - Tube supplements with consistent oral intake 4 - Total oral intake of a single consistency 5 - Total oral intake of multiple consistencies requiring special preparation 6 - Total oral intake with no special preparation but must avoid specific food / liquid items 7 - Total oral intake with no restrictions Oral Peripheral: ?? Pt reports normal sensation ?? Symmetrical presentation, no facial deviation ?? Labial, buccal, lingual, jaw, velar ROM, strength, agility & coordination WNL ?? Adequate laryngeal elevation to palpation ?? Able to produce volitional cough and throat clear ?? Motor speech with normal limits Difficulties Observed: ?? Hypophonic vocal quality ?? Delayed volitional swallow Bolus Presentation(s): ?? ice chips by spoon ?? thin liquid via spoon and cup ?? nectar consistency thickened liquid via spoon, via cup, and via straw ?? puree via spoon ?? mechanical soft via spoon ?? regular small bite, large bite Oral Preparatory Phase: ?? Adequate lip closure ?? No anterior loss from oral cavity Difficulties Observed: ?? Increased mastication time with dry complex solid ?? Poor bolus cohesion with dry complex solid ?? Anterior lingual residuals present with dry complex solid Pharyngeal Phase: Difficulties Observed: ?? Swallow indistinct and un-coordinated with vocal quality changes to auscultation with thin liquid trials ?? s/s of premature spillage to auscultation with thin liquids ?? Difficulty coordinating breathing and swallowing, increased SOB / WOB noted with dry complex solid ?? Delay in swallow initiation; 3 sec. average ?? Immediate coughing after ice chip, thin liquids with head in midline position and with thin liquids with chin tuck strategy in place ?? Delayed coughing with dry complex solid ?? Multiple re-swallows Esophageal Phase: ?? Appears to be WFL, No overt clinical s/s of esophageal phase dysphagia noted during this limitedevaluation. A: Dx: ?? Positive outward s/s of Sensory-Motor Oropharyngeal Dysphagia characterized by decreased bolus manipulation/control and increased WOB/SOB noted with dry complex solids and overall delayed pharyngeal initiation. Pt presented with overt s/s of aspiration with thin liquids. Postural modifications were ineffective in reducing overt s/s of aspiration. Recommend a least restrictive diet of dysphagiasoft solids and nectar thickened liquids. FRUCTOSE LOADER to monitor Pt closely and upgrade as appropriate. Goals: ?? Pt will tolerate least restrictive diet without overt s/s aspiration or dysphagia utilizing therapeutic interventions of thermal stimulation, oral-motor exercises, NMES, to improve swallow effectiveness and safety. ?? Pt / caregivers will follow aspiration precautions, diet modifications, and safe swallowing strategies to allow adequate, safe PO intake. P: ?? Speech Pathology to follow 3-5x/week while hospitalized. ?? Pt/family are in agreement with treatment plan. Thank you for this consult with this patient. Please feel free to page me with any questions or concerns. Andre Martinez, MS, [facility]-FRUCT[employer] LOADER Inpatient Rehabilitation Medicine Pager:#[phone] * Debbie Oconnor MD - 09/12/2014 1:11 PM EST Transfer Summary ID: 69 man w/ ASCVD s/p stent to LAD 2006 and NH ~1992, Afib on warfarin, and obesity with TOM on CPAP nightly who presented originally with a clinical picture of acute cholecystitis on 09/07 and underwent an ERCP here on 09/09 and because he was a difficult intubation and concern for pulmonary edema, he remained intubated after the procedure. History of Present Illness: 69 man w/ ASCVD s/p stent to LAD 2006 and NH ~1992, Afib on warfarin, and obesity with TOM on CPAP nightly who presents to [facility] on 09/07 with new, sudden onset RUQ pain on 09/07. The patient describes 1x vomiting associated with the start of his RUQ pain, with pain radiating to his back. He had no changes in his bowel mov'ts. He was hytertensive with BP in 169/77 on presentation, pulse 99, afebrile and sating 98% on room air. Given his hx of having gall bladder stones, a RUQ UT was performed that showed cholelithiasis, but no gall bladder wall thickening or pericholecystic fluid (incidentallynoting increased echogenicity of the liver suggestive of fatty infiltration). The patient had an elevated WBC count that peaked at 20K and was started on zosyn as it was felt that he had acute cholecystitis. During his hospital stay his WBC cell was seen to normalize after 3 days on antibiotics, but his bilirubin up trendied: T. Bili: 7.0 and Direct Conjugated of 5.87. He was reported to have some hypotension (not given the vitals) on HD#1 where he was given 1L IVF, and he responded to this. The patient was discussed with GI here at [facility] and plan made was to perform ERCP to relieve what mighthave been a picture of ascending cholangitis versus acute cholecystitis. On arrival to [facility], the day of admission, he was hemodynamically stable. The patient was difficult intubation required a glidescope and complicated by tongue laceration and bleeding: he was very large, anterior, and bed position was suboptimal (can't lie flat). He underwent his ERCP, received only 1200cc of fluid during theprocedure, no issues of oxygenation during the procedure sating in the 90s, he had his sphincterotomy (oddi), there were no stones visualized, and his gall bladder was filling. When the patient had fi nished his procedure and transferred to the PACU for anticipation of extubation, he was seen to have frothy pink sputum coughing up. A CXR showed diffuse whiteout and the decision was made to admit him to the [facility]. Hospital course: He initially presented with a clinical picture consistent with acute cholecystitis vs ascending cholangitis to [facility] on 09/07 and was transferred here for ERCP. He was a difficult intubation and therewas concern for pulmonary edema because of pink, frothy material seen in ET tube, so he remained intubated after the procedure. We have been optimizing patients respiratory status for extubation withdiuresis and he has been diuresed net negative 4.6L. He passed his SBT this morning and was subsequently extubated this AM on rounds and is currently satting in the 90s on 2L NC. Speech has seen him already. Plan: Transfer to medicine service. DEBBIE OCONNOR MD PGY1 Internal Medicine Critical Care [place] Service #[id number] * May Linares RN - 09/12/2014 10:43 AM EST Pt extubated at 0943, anaesthesia at bedside with resp for precaution; extubated to 6 L via NC, later titrated down. He has a strong productive cough. Lung sounds remain clear in the upper bases and diminished in the lower bases. Pt talking with and A&O x4, reoriented to exact time. * Sherman Duron PT - 09/12/2014 10:32 AM EST Physical Therapy Critical Care Referral received. eDH reviewed. Eval and Rx to begin pending pt availability (pt prefers to be seen later in day). Documentation to follow in eDH. Sherman Duron PT [id number] ER * Amita Fox RN - 09/12/2014 9:17 AM EST CLINICAL SPANISH LECTURER ([facility]) Office of Care Management Amita Fox RN, [facility] Phone [phone] Pager # [phone] INITIAL ASSESSMENT: Reviewed record; interviewed patient and his Leah; services accepted. REASON for HOSPITALIZATION: 69 yr old man with hx of morbid obesity, TOM on CPAP, ASCVD s/p stent and NH; AFib on coumadin; presented 09/07 with likely acute cholecystitis; underwent ERCP with sphincterotomy on 09/09. He was not extubated post procedure due to concern for pulmonary edema; transferredto ICU at that time. Evaluated by General Surgery who stated no indication for surgery at this time. CURRENT STATUS: Pt extubated this am; has been diuresed; is awake, appropriate. NC O2. Frequent loose cough. GI service following; antibiotics (zosyn) per their recs. Trending LFT's. Lovenox bridge to resumption of coumadin. BASELINE FUNCTIONAL STATUS/SOCIAL/FAMILY SUPPORTS: Introduced self and role to pt and his . With pt's permission, directed questions to her, as pt had just been extubated. 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 He drives, has a second floor office in town; per climbs stairs both at his office and at home. Home is 3 story; bedroom and bathroom on the second floor; there is also a bathroom on the first floor. Pt uses a cane in bad weather. No other services. 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 Pt has managed this along with his PCP. would be appreciative of wound care consult while pt here, which RN states has been placed. 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 INSURANCE COVERAGE/FINANCIAL ISSUES: [employer] ADVANCE DIRECTIVES: Pt has AD's. I have sent a copy to [facility] to be scanned into ED. Names as DPOAH. REHAB TEAM CONSULTS: PT referral has been placed. WATER TEAM LEADER REFERRAL: has asked if WATER TEAM LEADER could assist with notarizing a POA document that was drawn up by pt's immigration attorney, and just needs to be signed. POTENTIAL DISCHARGE NEEDS: To be determined following PT assessment. Pt was independent prior to admission; has now been bed bound for 3 days; likely home vs home with [facility]. PLAN: Pt will likely transfer from ICU tomorrow; would anticipate transfer to medicine service at that time. * Debbie Oconnor MD - 09/12/2014 7:14 AM EST Critical Care Medicine Progress Note Patient Name: Jaime Crouch Service: Critical Care Medicine - [place] Team Responsible Attending: Cynthia Davis Jr., MD PCP: CHERISE STAPLES MD PCP phone #: [phone] ID/Chief Complaint: 69 man w/ ASCVD s/p stent to LAD 2006 and NH ~1992, Afib on warfarin, and obesity with TOM on CPAP nightly who presented originally with a clinical picture of acute cholecystitis on 09/07 and underwent an ERCP here on 09/09 and because he was a difficult intubation and concern for pulmonary edema, he remained intubated after the procedure. Interval Events: Passed SBT this AM Propofol decreased to 10mcg/kg/min this AM Minimal vent settings PS 10 over PEEP5, TV 500-600 rate 16/min Extubated successfully on rounds today Objective: Vitals Last value Range last 24 hrs Temperature Temp: 37 ??C (98.6 ??F) Temp: [36.5 ??C (97.7 ??F)-37.7 ??C (99.9 ??F)] Heart Rate Heart Rate: 110 Heart Rate: [99-128] Blood Pressure BP: 119/80 mmHg BP: (119-148)/(53-105) Art BP BP (Arterial Line): -- O2 Delivery Oxygen Therapy O2 Device: Ventilator FiO2 (%): 30 % SpO2 SpO2: 94 % SpO2: [92 %-97 %] Respiratory Rate Resp: 16 Resp: [14-22] Intake/Output Summary (Last 24 hours) at 09/12/14 0714 Last data filed at 09/12/14 0600 Gross per 24 hour Intake 2050 ml Output 3290 ml Net -1240 ml Net for admission -4.6L Physical Exam: General: Obese man, intubated and sedated HEENT: ETT in place Cardiac: Tachycardic, irregular rhythm, S1 and S2, no m/r/g. Respiratory: Clear to auscultation anteriorly; No wheezes/ rhonchi/ rales. Abd: soft, non distended, hypoactive BS Ext: chronic venous stasis changes Neuro: Follows commands, squeezes fingers, thumbs up bilaterally, closes eyes and opens eyes on verbal command Skin: 1+ b/l le edema and chronic venous stasis changes Lines: PIVs Laboratory: Recent Labs 09/12/14 0033 09/11/14 0152 09/10/14 0525 WBC 7.6 7.9 8.8 HGB 15.4 15.9 14.9 HCT 48.2 49.6 46.8 PLATELET 174 174 175 NEUTROABS 5.29 6.03 7.17* Recent Labs 09/12/14 0033 09/11/14 1650 09/11/14 0152 NA 143 144 146* K 3.7 3.9 4.2 CL 105 105 106 CO2 26 28 27 BUN 23* 20 18 CREATININE 1.20 1.27 1.27 Recent Labs 09/12/14 0033 09/11/14 0152 09/10/14 0555 AST 49* 68* 79* ALT 137* 193* 215* ALKPHOS 158* 168* 142* BILITOT 2.2* 3.4* 4.3* BILIDIR 1.6* 2.7* 3.7* Recent Labs 09/12/14 0033 09/11/14 1650 09/11/14 0152 CALCIUM 9.1 9.1 9.4 Recent Labs 09/12/14 0033 09/11/14 0152 09/10/14 0555 09/09/14 1735 PT 14.2 15.8* 15.5 16.8* Recent Labs 09/12/14 0033 09/11/14 0152 09/10/14 0555 INR 1.0 1.2* 1.2* Other Labs: Hep B surface Ag: neg Hep B surface Ab: neg Hep B core Ab: in process Hep C Ab: neg Microbiology: Blood Culture- Pending at [facility] Urine Culture- Pending at [facility] Imaging CXR 09/12/13: unchanged from yesterday, redemonstration of low lung volumes and pulmonary edema ASSESSMENT: 69 man w/ ASCVD s/p stent to LAD 2006 and [place] ~1992, Afib on warfarin, and obesity with TOM on CPAP nightly who presented originally with a clinical picture of acute cholecystitis on 09/07 and underwent an ERCP here on 09/09 and because he was a difficult intubation and there was concern for pulmonaryedema, he remained intubated after the procedure. We have been optimizing patients respiratory status for extubation with diuresis. He passed his SBT this AM and was successfully extubated on rounds today with anesthesia and glide-scope at bedside. Patient doing well now post-extubation. Will continue to monitor and possible transfer to floor this afternoon. PLAN: # pulmonary edema and difficult reintubation -repeat CXR this AM -passed SBT this AM -extubated on rounds today -40 iv bid lasix today -Recheck bmp tomorrow AM #acute cholecystitis -LFTs downtrending, but continue to trend these daily -currently Day 6 (09/07-) of Zosyn -planning for 7-10 day course - talk to GI about length of abx course -appreciate general surgery involvement -no active obstruction s/p sphincterotomy # ASCVD -holding home lisinopril b/c of CARINE -continue asa 81mg -metoprolol tartrate at 50 q6h (home 150mg of succinate) with holding parameters #Afib -goal rate control HR<120 -continuing metoprolol 50mg q6h -K>4.0 (on repletion protocol) -bridging w/ therapeutic lovenox (started 09/10) -will start warfarin today #HTN - holding lisinopril until creatinine returns to baseline - consider restarting lisinopril this afternoon or tomorrow morning - continuing home metop #TOM - on BiPAP at home nightly PPx: DVT- bridge w/ therapeutic lovenox GI- famotidine 20mg IV BID for stress ulcer prophylaxis Lines: pIV x2, haque, ETT, NGT Diet: none Code Status: Full code Dispo- transfer to floor this afternoon providing he does well in the hours following extubation DEBBIE OCONNOR MD PGY1 Internal Medicine Team pager [phone] 09/12/2014 * Eldon Shi RT - 09/12/2014 4:28 AM EST Patient has been in PSV overnight with no complications to speak of. PEEP lowered from 8 to 5 post SBT. Suctioning moderate amounts of thick clear secretions from ETT tube. No other changes made thisshift. SBT PASSED 09/12/14 0348 Ventilator Settings Ventilator Mode PS Set FiO2 30 % Set PEEP (cm H2O) 5 PS Above PEEP (cm H2O) 10 (SBT passed) Ventilator Measurements Resp 17 Tidal Volume Spontaneous (mL) 549 Mean Airway Pressure (cm H2O) 8 Minute Ventilation Total Exhaled (L/min) 9.3 SpO2 94 % ETCO2 (mmHg) 66 mmHg * Suni Steele RRT - 09/11/2014 3:47 PM EST Mr. Crouch remained on below settings throughout shift with no changes made. He passed SBT earlier this morning, but extubation held to allow for more diuresis today. He is a difficult airway, [facility]. Plan to continue PSV overnight, SBT and evaluate for extubation tomorrow morning. He has a history of TOM and he has his home Bipap machine (auto titrating with PS 4) in his room if needed post extubation. 09/11/14 0747 Ventilator Settings Ventilator Mode PS Set FiO2 30 % Set PEEP (cm H2O) 8 PS Above PEEP (cm H2O) 10 Ventilator Measurements Resp 20 Tidal Volume Spontaneous (mL) 490 Mean Airway Pressure (cm H2O) 12 Minute Ventilation Total Exhaled (L/min) 9.1 SpO2 96 % ETCO2 (mmHg) 67 mmHg * Mikayla Alfred - 09/11/2014 3:13 PM EST Nutrition Services - NPO note Jaime Crouch : 1945 AGE: 69 y.o. Patient Active Problem List Diagnosis Date Noted ??? Hospital-Hypertension 09/09/2014 ??? Hospital-Cholecystitis 09/09/2014 ??? Hospital-Atrial fibrillation 09/09/2014 ??? Hospital-TOM on CPAP 09/09/2014 ??? Phimosis 12/11/2011 ??? Nephrolithiasis 09/10/2011 Height: 178 cm Weight: No new weight on file Admit Weight: 186 kg Body mass index is 58.7 kg/(m^2). Labs: Results for JAIME CROUCH ( ) as of 09/11/2014 15:13 Ref. Range 09/11/2014 01:52 Sodium Latest Range: 135-145 mmol/L 146 (H) Potassium Latest Range: 3.5-5.0 mmol/L 4.2 BUN Latest Range: 10-20 mg/dL 18 Creatinine Latest Range: 0.80-1.50 mg/dL 1.27 Estimated GFR Latest Range: >=60 57 (L) Glucose Lvl Latest Range: 60-199 mg/dL 104 Calcium Latest Range: 8.5-10.5 mg/dL 9.4 Total Protein Latest Range: 6.4-8.3 gm/dL 7.1 Albumin Latest Range: 3.2-5.2 gm/dL 2.9 (L) Patient has had no diet order (NPO) for 6 days. If diet can not be advanced within 24 hours, pleaseconsider alternative means of nutrition support. MKIAYLA ALFRED, DT * Cynthia Davis Jr., MD - 09/11/2014 9:23 AM EST Critical Care Attending Daily Progress Note Author CYNTHIA DAVIS JR, MD Date 09/11/2014 I saw and examined this patient in the critical care unit. Active Problems 1. S/p ERCP 2. Pulmonary edema, acute, related to intravascular volume overload. 3. TOM on CPAP at home 4. Hypercarbic respiratory failure, mechanically ventilated 5. Difficult airway Physical Exam General Critically ill, sedated, endotracheally intubated and mechanically ventilated Lungs CTA(B) Heart Tachy, no murmurs Abdomen Soft, non-distended. BS(+) Extremities No C/C. Trace brawny lower extremity edema (B) with (B) venous stasis changes Neuro RASS -2 Respiratory Support PSV 10/5 0.30 Imaging CXR showing improvement in intravascular pulmonary edema. Assessment, Management, and Decision Making 1. Passed SBT this AM following diuresis. (+) cuff leak test. CXR shows continued pulmonary edema. Will continue diuresis. Anticipate trial of extubation tomorrow. Repeat CXR in AM prior to extubation attempt 2. Enteral nutritional support by dobhoff, hold 6 hours prior to extubation 3. Passive ROM 4. Routine ICU prophylaxis [trinidad] I certify that the patient requires inpatient care status as outlined in CMS Guidelines and based on current medical issues, as outlined above. Is this patient critically ill? Is there a high potential of sudden, clinically significant, or life threatening deterioration? Yes Is there a need for direct personal assessment and management to treat/prevent multiple vital organfailure/deterioration? Yes Patient is critically ill with these diagnoses being managed by the Critical Care Team: ARDS PA Catheter Hyponatremia 1 Hypoxemic Resp Failure Cardiogenic Shock Hypernatremia Pneumonia req Ventilator Acute Myocardial Infarction Hyperkalemia Hypercarbic Resp Failure Subarachnoid Hemorrhage Acute Drug Ingestion / OD Respiratory Acidosis Traumatic Brain Injury Acute Renal Failure Acute Resp Failure Coma Acute Liver Failure Metabolic Acidosis Stupor Thrombocytopenia Hypotension, Fluids Delirium Neutropenia Hypotension, Pressors Acute Encephalopathy Hypertensive Emergency Sepsis Ascites Req Treatment Malnutrition Septic Shock with SIRS Coagulopathy Req Treatment Anaphylaxis Active Hemorrhage I personally performed 30 minutes of aggregate critical care time exclusive of procedures and teaching. This includes time spent during direct patient evaluation and reassessment, interpreting diagnostic tests, directing life and/or organ supporting interventions and documentation on the unit. --Tien Davis MD * Ash Asencio MD - 09/11/2014 6:06 AM EST Critical Care Medicine Progress Note Patient Name: Jaime Crouch Service: Critical Care Medicine - Blue Team Responsible Attending: Cynthia Davis Jr., MD PCP: CHERISE STAPLES MD PCP phone #: [phone] ID/Chief Complaint: 69 man w/ ASCVD s/p stent to LAD 2006 and [place] ~1992, Afib on warfarin, and obesity with TOM on CPAP nightly who presented originally with a clinical picture of acute cholecystitis on 09/07 and underwent an ERCP here on 09/09 and because he was a difficult intubation, he remained intubated after the procedure because of concern of pulmonary edema. Interval Events: Lasix IV 20mg x1 and 40mg x1 HR >120 overnight, 5 mg IV metoprolol given x1 Passed SBT this morning No BM Pt denies difficulty breathing, abd pain, or pain elsewhere Vitals: Temperature afebrile Heart Rate 100s-120s Blood Pressure 120s/80s Respiratory Rate 14-20 SpO2 95-99% on 30-40% FIO2 Vent settings: PSV 10/8/30% Drips: Propofol @30mcg/kg/min Intake/Output Summary (Last 24 hours) at 09/11/14 0712 Last data filed at 09/11/14 0600 Gross per 24 hour Intake 1822 ml Output 4055 ml Net -2233 ml Examination: General: Obese man, intubated and sedated, somewhat diaphoretic. HEENT: Trachea midline, no gross abnormalities, JVD difficult to assess because of thick neck Cardiac: Normal S1 and S2, Irregularly irregular rate and rhythm; No m/r/g. Respiratory: ET tube in place. Clear to auscultation anteriorly; No wheezes/ rhonchi/ rales. Abd: soft, non distended, hypoactive BS Ext: chronic venous stasis changes Neuro: RASS -2 Skin: 1+ b/l le edema and chronic venous stasis changes Lines: PIVs Laboratory: Recent Labs 09/11/1415109/10/14 0525 09/09/14 1735 WBC 7.9 8.8 10.8* HGB 15.9 14.9 15.3 HCT 49.6 46.8 47.4 PLATELET 174 175 162 NEUTROABS 6.03 7.17* 9.51* Recent Labs 09/11/1415109/10/14 1400 09/10/14 0555 09/09/14 1735 NA 146* -- 143 142 K 4.2 4.4 3.7 3.9 CL 106 -- 107 106 CO2 27 -- 25 23 BUN 18 -- 17 17 CREATININE 1.27 -- 1.23 1.33 Recent Labs 09/11/14 01509/10/14 0555 09/09/14 1735 AST 68* 79* 110* ALT 193* 215* 265* ALKPHOS 168* 142* 147* BILITOT 3.4* 4.3* 6.1* BILIDIR 2.7* 3.7* 5.5* Recent Labs 09/11/14 01509/10/14 0555 09/09/14 1735 CALCIUM 9.4 9.1 9.3 Recent Labs 09/11/14 0152 09/10/14 0555 09/09/14 1735 PT 15.8* 15.5 16.8* Recent Labs 09/11/14 0152 09/10/14 0555 09/09/14 1735 INR 1.2* 1.2* 1.3* Other Labs: Hep B surface Ag: neg Hep B surface Ab: neg Hep B core Ab: in process Hep C Ab: neg Microbiology: Blood Culture- Pending at [facility] Urine Culture- Pending at [facility] Relevant Diagnostic Studies: None new. ASSESSMENT: 69 man w/ ASCVD s/p stent to LAD 2006 and [place] ~1992, Afib on warfarin, and obesity with TOM on CPAP nightly who presented originally with a clinical picture of acute cholecystitis on 09/07 and underwent an ERCP here on 09/09 and because he was a difficult intubation, he remained intubated after the procedure because of concern of pulmonary edema. clincially optimizing patients status for extubation:diuresing. For the management of his acute cholecystitis currently no biliary obstruction seen, deemed not to be a candidate for cholecystectomy at present and continue with Zosyn for his likely Gi infection, most likely acute cholecystitis with stones that passed. We will continue to monitor his LFTs for additional resolution. He passed his SBT but prior to extubation we will diurese him furtherto ensure that some of his pulmonary edema and vascular congestion has improved. We plan to extubate him tomorrow in the presence of anesthesia as he is a difficult airway. PLAN: # pulmonary edema and difficult reintubation -diuresing with lasix IV w/ goal of net negative 1-2L - give 40 mg IV lasix now -repeat CXR -Plan on extubation following fluid optimization and greater improvement on CXR -repeat BMP this afternoon (follow K) #acute cholecystitis -no active obstruction s/p sphinerotomy -currently Day 5 (09/07-) of Zosyn - 7-10 day course - talk to GI about length of abx course -appreciate general surgery involvement -continue to trend LFTs # ASCVD -holding home lisinopril b/c of CARINE -continue asa 81mg -change metoprolol tartrate from 25mg q6h to 50 q6h (home 150mg of succinate) with holding parameters #Afib -goal rate control HR<120 -continuing home metoprolol - give one dose of metoprolol tartrate 25 mg now, prior to extubation -K>4.0 (on repletion protocol) -bridging w/ therapeutic lovenox (started 09/10) #HTN - holding lisinopril until creatinine returns to baseline - continuing home metop - restart home lasix #TOM - on BiPAP at home nightly PPx: DVT- bridge w/ therapeutic lovenox GI- famotidine 20mg IV BID for stress ulcer prophylaxis Lines: pIV x2, haque, ETT, NGT Diet: none Code Status: Full code Dispo- pends success with extubation Ash Asencio Internal Medicine, PGY 1 Team pager [phone] 09/11/2014 * Eldon Shi RT - 09/11/2014 4:51 AM EST Patient has been in PSV overnight with no complications to speak of. PEEP remains at 8 with FiO2 at30%. RR has been in high teens. Suctioning large amounts of very thick white secretions from ETT tube. Will continue to wean as tolerated. SBT PASSED 09/11/14 0436 Ventilator Settings Ventilator Mode PS Set FiO2 30 % Set PEEP (cm H2O) 8 PS Above PEEP (cm H2O) 10 (SBT passed) Ventilator Measurements Resp 19 Tidal Volume Spontaneous (mL) 495 Mean Airway Pressure (cm H2O) 12 Minute Ventilation Total Exhaled (L/min) 8.8 SpO2 95 % ETCO2 (mmHg) 66 mmHg * Alexander Bernabe MD - 09/10/2014 12:08 PM EST GI Progress Note Interval History/ Subjective Reviewed his presentation with his who was at bedside. He presented with fairly severe acute upper abdominal pain without fever, nausea, vomiting or bowel changes. WBC markedly elevated with transaminases 300-500 on presentation. RUQ US showed gall stones but no duct dilation or definitive cholecystitis. TB was 2 initially but catrachita to 8 on day of transfer. His pain resolved prior to transfer. ERCP yesterday was normal. No new medications. No history of liver disease. No travel history Objective Blood pressure 108/80, pulse 105, temperature 36.5 ??C (97.7 ??F), temperature source Axillary, resp. rate 14, height 178 cm (5' 10.08), weight 186 kg (410 lb 0.9 oz), SpO2 97 %. General: Intubated, morbidly obese HEENT: anicteric Resp: CTA bilaterally Abd: soft, , non-distended, normo-active bowel sounds Ext: No lower ext edema Neuro: sedated Assessment and Plan The patient is a 69 y.o. male with gallstones admitted with upper abdominal pain and obstructive LFT's but normal ERCP yesterday. Most likely passed a stone. LFT's are improving at this point. May have some degree of underlying chronic liver disease (due to SHARMA?) that potentiated LFT changes. Continue ongoing supportive care Would favor elective cholecystectomy Trend LFT's to normal If not normalized consider outpatient evaluation for chronic liver disease Rudi La MD Gastroenterology and Hepatology Fellow I have seen and examined the patient with the GI fellow. I agree with the contents of the note. Alexander Bernabe * Cynthia Davis Jr., MD - 09/10/2014 10:18 AM EST Critical Care Attending Daily Progress Note Author CYNTHIA DAVIS JR, MD Date 09/10/2014 I saw and examined this patient in the critical care unit. Active Problems 1. S/p ERCP 2. Question pulmonary edema, acute, etiology not specified 3. TOM on CPAP 4. Hypercarbic respiratory failure, mechanically ventilated 5. Difficult airway Physical Exam General Critically ill, sedated, endotracheally intubated and mechanically ventilated Lungs CTA(B) Heart Tachy, no murmurs Abdomen Soft, non-distended. BS(+) Extremities No C/C. Trace brawny lower extremity edema (B) with (B) venous stasis changes Neuro RASS -3 Respiratory Support PSV 10/5 0.30 Imaging CXR yesterday showing poor penetration, apparent vascular congestion in this technically poor film.CXR today showing ongoing vascular congestion Assessment, Management, and Decision Making 1. Wean sedation. Anticipate trial of extubation. Will request anesthesia assistance in light of recent difficult airway. 2. Continue diuresis in advance of extubation 3. Enteral nutritional support by dobhoff, hold 6 hours prior to extubation 4. Passive ROM 5. Routine ICU prophylaxis [trinidad] I certify that the patient requires inpatient care status as outlined in CMS Guidelines and based on current medical issues, as outlined above. Is this patient critically ill? Is there a high potential of sudden, clinically significant, or life threatening deterioration? Yes Is there a need for direct personal assessment and management to treat/prevent multiple vital organfailure/deterioration? Yes Patient is critically ill with these diagnoses being managed by the Critical Care Team: ARDS PA Catheter Hyponatremia 1 Hypoxemic Resp Failure Cardiogenic Shock Hypernatremia Pneumonia req Ventilator Acute Myocardial Infarction Hyperkalemia Hypercarbic Resp Failure Subarachnoid Hemorrhage Acute Drug Ingestion / OD Respiratory Acidosis Traumatic Brain Injury Acute Renal Failure Acute Resp Failure Coma Acute Liver Failure Metabolic Acidosis Stupor Thrombocytopenia Hypotension, Fluids Delirium Neutropenia Hypotension, Pressors Acute Encephalopathy Hypertensive Emergency Sepsis Ascites Req Treatment Malnutrition Septic Shock with SIRS Coagulopathy Req Treatment Anaphylaxis Active Hemorrhage I personally performed 40 minutes of aggregate critical care time exclusive of procedures and teaching. This includes time spent during direct patient evaluation and reassessment, interpreting diagnostic tests, directing life and/or organ supporting interventions and documentation on the unit. --Tien Davis MD * Delroy Marshall, [employer] - 09/10/2014 8:56 AM EST 09/10/14 0731 Ventilator Settings Ventilator Mode PS Set FiO2 30 % (desat) Set PEEP (cm H2O) 8 PS Above PEEP (cm H2O) 10 Ventilator Measurements Resp 18 Tidal Volume Spontaneous (mL) 446 Mean Airway Pressure (cm H2O) 11 Minute Ventilation Total Exhaled (L/min) 7.2 SpO2 94 % ETCO2 (mmHg) 60 mmHg ( co2 43 on abg) ETT Airway Placement Date/Time: 09/09/14 1505 Mask Ventilation: Difficult (3) ETT Type: Cuffed;Oral ETT Size: 7.5 mm Mac Blade: 4 Indirect: Video Notes: Asleep;Pre- O2;Cricoid Pressure;Stylette Laryngoscopy Grade: 4 # of Attempts: 2 Endotracheal Placeme... Appearance clean and dry Tube Securement endotracheal (ET) tube ventura Tube Reference Point teeth Airway Tube Secured At (cm) 27 Manual Resuscitator at bedside Yes Intermittent Nebulizer Treatments Post Tx, Bilateral Breath Sounds Diminished Secretion Amount Small Secretion Color White;Yellow Secretion Consistency Thin suggested getting abg Before extubation plan md stated to wait until they get more fluid off and get abg just before extubation * Mai Lock MD - 09/10/2014 7:20 AM EST Critical Care Medicine Progress Note Patient Name: Jaime Crouch Service: Critical Care Medicine - Blue Team Responsible Attending: Nick Broussard MD, MD PCP: CHERISE STAPLES MD PCP phone #: [phone] ID/Chief Complaint: 69 man w/ ASCVD s/p stent to LAD 2006 and [place] ~1992, Afib on warfarin, and obesity with TOM on CPAP nightly who presented originally with a clinical picture of acute cholecystitis on 09/07 and underwent an ERCP here on 09/09 and because he was a difficult intubation, he remained intubated after the procedure because of concern of pulmonary edema. Interval Events: Propofol turned down to 40 Vent settings to ARDS settings-PEEP 10, and 7cc/kilo Passed SBT Then switched to PS /07/02 Repeat CXR shows b/l pleural effusions Vitals: Last value Range last 24 hrs Temperature Temp: 37.3 ??C (99.1 ??F) Temp: [36.6 ??C (97.9 ??F)-37.8 ??C (100 ??F)] Heart Rate Heart Rate: 96 Heart Rate: [96-138] Blood Pressure BP: 122/68 mmHg BP: (105-174)/(49-138) Respiratory Rate Resp: 16 Resp: [12-30] SpO2 SpO2: 93 % SpO2: [93 %-100 %] Intake/Output Summary (Last 24 hours) at 09/10/14 1531 Last data filed at 09/10/14 1400 Gross per 24 hour Intake 1877 ml Output 3505 ml Net -1628 ml Examination: General: Obese man, intubated and sedated HEENT: Trachea midline, no gross abnormalities, JVD difficult to assess because of thick neck Cardiac: Normal S1 and S2, Irregularly irregular rate and rhythm; No murmrs/gallops/rubs. Respiratory: ET tube in place. Clear to auscultation anteriorly; No wheezes/ rhonci/ rales. Abd: soft, non distended, + BS Ext: chronic venous stasis changes Neuro: II-XII grossly intact. Alert and orientated, no-focal deficits, sensation intact to crude touch Skin: 1+ b/l le edema and chronic venous stasis changes Lines: PIVs Laboratory: Recent Labs 09/10/14 0525 09/09/14 1735 WBC 8.8 10.8* HGB 14.9 15.3 HCT 46.8 47.4 PLATELET 175 162 NEUTROABS 7.17* 9.51* Recent Labs 09/10/14 0555 09/09/14 1735 NA 143 142 K 3.7 3.9 CL 107 106 CO2 25 23 BUN 17 17 CREATININE 1.23 1.33 Recent Labs 09/10/14 0555 09/09/14 1735 AST 79* 110* ALT 215* 265* ALKPHOS 142* 147* BILITOT 4.3* 6.1* BILIDIR 3.7* 5.5* Recent Labs 09/10/14 0555 09/09/14 1735 CALCIUM 9.1 9.3 Recent Labs 09/10/14 0555 09/09/14 1735 PT 15.5 16.8* No results found for this basename: LDH, URICACID, in the last 168 hours Other Labs: None Microbiology: Blood Culture- Pending at [facility] Urine Culture- Pending at [facility] Relevant Diagnostic Studies: CXR- 08/10/14: pulmonary edema-unchanged CXR- 08/09/14: pulmonary congestion and edema ASSESSMENT: 69 man w/ ASCVD s/p stent to LAD 2006 and [place] ~1992, Afib on warfarin, and obesity with TOM on CPAP nightly who presented originally with a clinical picture of acute cholecystitis on 09/07 and underwent an ERCP here on 09/09 and because he was a difficult intubation, he remained intubated after the procedure because of concern of pulmonary edema. clincially optimizing patients status for extubation:diuresing. Will followup abg and I/Os mickey AM to assess viability for extubation. For the managementof his acute cholecystitis currently no biliary obstruction seen, deemed not to be a candidate for cholecystectomy at present and continue with Zosyn for his likely Gi infection, most likely acute cho lecystits. He passed his SBT but prior to extubation we will diurese him further to ensure that some of his pulmonary edema and vascular congestion has improved. We will also extubate him in the presence of anesthesia as he is a difficult airway. PLAN: # pulmonary edema and difficult reintubation -diuresing with lasix IV w/ goal of net negative 1-2L -Plan on extubation following fluid optimization -repeat ABG mickey AM #acute cholecystitis -no active obstruction s/p sphinerotomy -currently Day 4 (09/07-) of Zosyn -appreciate general surgery involvement # ASCVD -holding home lisinopril b/c of CARINE -continue asa 81mg mickey AM -metoprolol tartrate 25mg q6h (home 100mg of succinate) #Afib -goal rate control HR<120 -continuing home metoprolol -K>4.0 (on repletion protocol) -bridging w/ therapeutic lovenox starting today #TOM - on BiPAP at home nightly PPx: DVT- holding on medical given some bleeding during procedure, but w/ hx of DVT PE bridge w/ therapeutic lovenox GI- famotidine 20mg IV BID for stress ulcer prophalyxis Code Status: Full code Dispo- pends success with extubation [facility], PGY 1 * Evette Young FINANCE LEAD - 09/10/2014 5:05 AM EST 09/10/14 0435 Ventilator Settings Ventilator Mode PS Set FiO2 25 % Set PEEP (cm H2O) 8 (passed sbt) PS Above PEEP (cm H2O) 10 (Passed SBT) Ventilator Measurements Resp 20 Tidal Volume Spontaneous (mL) 444 Minute Ventilation Total Exhaled (L/min) 11.2 SpO2 99 % ETCO2 (mmHg) 54 mmHg Pt received on SIMV 700x12 +8 40%. Per fellow, changed to 510x18 +10. Pt then transitioned to PS d/t increased wakefulness. PT passed SBT to returned to PS 10/8 25%. No notable secretions overnight. Will continue to monitorand treat * Elizabeth Mike RN - 09/09/2014 7:00 PM EST Admitted from PACU at 1815: Plan to manage cardiorespiratory issues while Intubated overnight. Patient arrived on Propofol at 70 mcg/kg/min... Titrated to 60 mcg/kg/min. Lungs coarse throughout, ETT measured at 27 cm at the teeth. Chest Xray obtained for ETT placement confirmation, ETCO2 60's (noted to be in the 40's in PACU). Lasix 20 mg IV administered.. Haque catheter placed and draining large amount of concentrated eusebio urine. Afib 110's with occasional PVCs. Blood pressures stable. Plan to attempt to wean sedation and wean ventilator settings to pressure support. Continue with current plan of care. * [place] RCP - 09/09/2014 5:30 PM EST 09/09/14 1725 Ventilator Settings Ventilator Mode SIMV Vol + PS Resp. Rate Set 12 Tidal Volume Set 700 Set FiO2 40 % Set PEEP (cm H2O) 8 PS Above PEEP (cm H2O) 10 Pt placed on vent to be admitted to ICU per plan. Placed on the above settings. 7.5 ETT secured at 26 cm teeth with tape. Transport to ICU soon. * Brianne Jain RN - 09/09/2014 4:56 PM EST 1618 - pt to pacu on stretcher intubated and being bagged by anesthesia to pacu 22. proprofol stopped by anesthesia to wake pt. Pt slowly waking. [place] frothy secretions suctioned twice. pcxr done. Pttachy afib rate 130's. bp stable and o2 sat stable. Right fa piv retapped and resecured. 164 - pt not tolerating waking and anesthesia hesitant to extub due to secretions and very difficutl intubation. oBbo paged and called critical care team to see pt. Will admit to icu and keep pt intubated. #7.5 ETT taped at 25 cm to right lip - vent settings simv 12/P8/100% with TV 700. ETco2 reading 47-52. Vss. resedated on proprofol gtt at 50mcq/min 1700 - waiting on critical care fellow to visit pt. 1730 - critical care at bedside to assess pt. Waiting on icu 44 to be cleaned. fio2 down to 40% 1740 - labs sent. Propofol increased to 70 mcq/min 1800 - report to JACOB Johnson and pt readied for transfer to icu 44 via stretcher with RT and nurses and sales and events coordinator and vent. in to see pt and updated briefly and then she left for home. * Nick Broussard MD - 09/09/2014 4:56 PM EST GI Attending We have completed the ERCP on Mr. Crouch - the ERCP showed no evidence of stones with filling into the gallbladder via the cystic duct. There was no evidence of pus on the exam. He was a very difficult intubation for the anesthesia team due to his body habitus. Following the procedure I called Nasir Velázquez at [facility] and relayed my concerns about his airway. He felt that given the difficulty of the airway and the lack of back-up at [facility] this weekend he would like to keep the patient at [facility]. We then spoke to [facility] who has accepted the patient on their service. The patient remains intubated. As far as the etiology to his acute disease process, I suspect he probably had acute cholecystitis when he first presented on 09/07. His elevated liver tests now are probably a result of a systemic infection that has been treated. His WBC is improving (20K to 11K today) and although his TB is elevated, his transaminases are improved - I would expect his TB to begin improving over the next day or two He probably has some degree of undiagnosed fatty liver disease (his platelets are low) which is contributing to his elevated liver tests. For this evening, I would make the following recommendations: 1. Basic labs now including CBC, CMP, INR 2 He does have atrial fibrillation so he can receive a therapeutic dose of Lovenox tomorrow morning(we performed a sphincterotomy today) 3. Continue IV Zosyn 4. Trend his liver tests in the am 5. Surgery consult just so they are aware of the patient. Again, I do not think he has acute cholecystitis currently based on the filling into the GB on ERCP and the fact that he is clinically improving 6. Extubation per [facility] - recognizing that he is an extremely difficult intubation documented in this encounter H&P Notes * Katya Angel MD - 09/09/2014 5:29 PM EST Critical Care Medicine Admission History and Physical Patient Name: Jaime Crouch Service: Critical Care Medicine - Blue Team Responsible Attending: Nick Broussard MD, PCP: CHERISE STAPLES MD PCP phone #: [phone] ID/Chief Complaint: 69 man w/ ASCVD s/p stent to LAD 2006 and [place] ~1992, Afib on warfarin, and obesity with TOM on CPAP nightly who presented originally with a clinical picture of acute cholecystitis on 09/07 and underwent an ERCP here on 09/09 and because he was a difficult intubation, he remained intubated after the procedure because of concern of pulmonary edema. History of Present Illness: 69 man w/ ASCVD s/p stent to LAD 2006 and [place] ~1992, Afib on warfarin, and obesity with TOM on CPAP nightly who presents to [facility] on 09/07 with new, sudden onset RUQ pain on 09/07. The patient describes 1x vomiting associated with the start of his RUQ pain, with pain radiating to his back. He had no changes in his bowel mov'ts. He was hytertensive with BP in 169/77 on presentation, pulse 99, afebrile and sating 98% on room air. Given his hx of having gall bladder stones, a RUQ UT was performed that showed cholelithiasis, but no gall bladder wall thickening or pericholecystic fluid (incidentallynoting increased echogenicity of the liver suggestive of fatty infiltration). The patient had an elevated WBC count that peaked at 20K and was started on zosyn as it was felt that he had acute cholecystitis. During his hospital stay his WBC cell was seen to normalize after 3 days on antibiotics, but his bilirubin up trendied: T. Bili: 7.0 and Direct Conjugated of 5.87. He was reported to have some hypotension (not given the vitals) on HD#1 where he was given 1L IVF, and he responded to this. The patient was discussed with GI here at [facility] and plan made was to perform ERCP to relieve what mighthave been a picture of ascending cholangitis versus acute cholecystitis. On arrival to [facility], the day of admission, he was hemodynamically stable. The patient was difficult intubation required a glidescope and complicated by tongue laceration and bleeding: he was very large, anterior, and bed position was suboptimal (can't lie flat). He underwent his ERCP, received only 1200cc of fluid during theprocedure, no issues of oxygenation during the procedure sating in the 90s, he had his sphincterotomy (oddi), there were no stones visualized, and his gall bladder was filling. When the patient had fi nished his procedure and transferred to the PACU for anticipation of extubation, he was seen to have frothy pink sputum coughing up. A CXR showed diffuse whiteout and the decision was made to admit him to the [facility]. OSH labs on 09/07 prior to transfer: 16.8 15.4 H/H 295 52.3 91.8% neutrophils INR 2.7, PT= 28.6 141 103 26 Glc Ca 9.4 3.9 28.8 1.2 133 Mg 1.7 Phos - Troponin <0.02 AST: 439 ALT: 295 ALK phos: 149 Albumin 3.3 Total Bili: 2.03 Lipase: 268 UA: trace blood and protein, no bilirubing Review of Systems: The patient was intubated and sedated, unable to able ROS from him Problem List/Past Medical History Patient Active Problem List Diagnosis ??? Hypertension ??? Cholecystitis ??? Atrial fibrillation chronic anticoagulation ??? TOM on CPAP ??? Phimosis ??? Nephrolithiasis Past surgeries: Stent of LAD 2007 Nephrolithotomy of left ureter Bilateral top hip arthroplasty Meds: Your Medications Notice Some of the medications listed here do not show instructions, such as how often to take the medication. Ask your doctor or nurse how to use these medications. Specifically ask about this and similar medications: lisinopril (PRINIVIL;ZESTRIL) 40 mg tablet UNREVIEWED medications - Discuss With Your Provider Dose Details aspirin 81 mg Tbec Take 81 mg by mouth daily. 81 mg Refills: 0 atorvastatin 80 mg Tab Commonly known as: LIPITOR Take 80 mg by mouth daily. 80 mg Refills: 0 furosemide 40 mg Tab Commonly known as: LASIX Take 40 mg by mouth 2 times daily. 40 mg Refills: 0 lisinopril 40 mg Tab Commonly known as: PRINIVIL;ZESTRIL Refills: 0 metoprolol succinate 100 mg Tablet sr Commonly known as: TOPROL-XL Take 100 mg by mouth daily. 100 mg Refills: 0 nitroGLYcerin 0.4 mg Subl Commonly known as: NITROSTAT Place 0.4 mg under the tongue every 5 minutes as needed for Chest pain. 0.4 mg Refills: 0 warfarin 4 mg Tab Commonly known as: COUMADIN Take 4 mg by mouth daily. 4 mg Refills: 0 Allergies: No Known Allergies Family History: No family history on file. Social History: History Substance Use Topics ??? Smoking status: Former Smoker ??? Smokeless tobacco: Never Used ??? Alcohol Use: Not on file Vitals: Last value Range last 24 hrs Temperature Temp: 36.9 ??C (98.4 ??F) Temp: [36.6 ??C (97.9 ??F)-36.9 ??C (98.4 ??F)] Heart Rate Heart Rate: 118 Heart Rate: [108-138] Blood Pressure BP: 118/49 mmHg BP: (118-174)/(49-138) Respiratory Rate Resp: 14 Resp: [14-30] SpO2 SpO2: 98 % SpO2: [95 %-100 %] Examination: General: Large, obese man, intubated and sedated (opened eyes to name) HEENT: EOMI, PERRL, anicteric sclera. Oropharynx clear w/o lesions. Moist mucous membranes Neck: Supple with normal ROM. Lymph: No obvious cervical, axillary, epitrochlear or inguinal LAD. JVD difficult to assess becauseof thick neck Cardiac: Normal S1 and S2, Irregularly irregular rate and rhythm; No murmrs/gallops/rubs. Respiratory: ET tube in place. Clear to auscultation anteriorly and bilaterally; No wheezes/ rhonci/ rales. Abd: + BS; soft, but large, protuberant belly Ext: chronic venous stasis changes Neuro: II-XII grossly intact. Alert and orientated, no-focal deficits, sensation intact to crude touch Skin: Feet were clean and intact, but both legs to bennett should bilateral chronic venous stasis changes (thick, purple colored skin) Lines: PIVs Laboratory: Recent Labs 09/09/14 1735 WBC 10.8* HGB 15.3 HCT 47.4 PLATELET 162 NEUTROABS 9.51* Recent Labs 09/09/14 1735 NA 142 K 3.9 CL 106 CO2 23 BUN 17 CREATININE 1.33 Recent Labs 09/09/14 1735 AST 110* ALT 265* ALKPHOS 147* BILITOT 6.1* BILIDIR 5.5* Recent Labs 09/09/14 1735 CALCIUM 9.3 Recent Labs 09/09/14 1735 PT 16.8* No results found for this basename: LDH, URICACID, in the last 168 hours Other Labs: None Microbiology: Blood Culture- Pending at [facility] Urine Culture- Pending at [facility] Relevant Diagnostic Studies: CXR- 08/09/14: diffuse fluffy airspace obesities throughout lung medrano ASSESSMENT: 69 man w/ ASCVD s/p stent to LAD 2006 and [place] ~1992, Afib on warfarin, and obesity with TOM on CPAP nightly who presented originally with a clinical picture of acute cholecystitis on 09/07 and underwent an ERCP here on 09/09 and because he was a difficult intubation, he remained intubated after the procedure because of concern of pulmonary edema. clincially optimizing patients status for extubation:diuresing. Will followup abg and I/Os mickey AM to assess viability for extubation. For the managementof his acute cholecystitis currently no biliary obstruction seen, deemed not to be a candidate for cholecystectomy at present and continue with Zosyn for his likely Gi infection, most likely acute cho lecystits. PLAN: # pulmonary edema and difficult reintubation -diuresing with lasix 20mg IV to optimize fluid status -attempting to wean sedation and goal to PS by mickey AM -repeat ABG mickey AM #acute cholecystitis -no active obstruction s/p sphinerotomy -currently Day 3 (09/07-) of Zosyn -appreciate general surgery involvement # ASCVD -holding home lisinopril b/c of CARINE -continue asa 81mg mickey AM -metoprolol tartrate 25mg q6h (home 100mg of succinate) #Afib -goal rate control HR<120 -continuing home metoprolol -K>4.0 (on repletion protocol) -will resume anticoagulation in the AM per GI rec given post procedure -given hx of DVT and PE may bridge with therapeutic enoxaparin #TOM - on BiPAP at home nightly PPx: DVT- holding on medical given some bleeding during procedure, but resume anticoagulation mickey AM GI- famotidine 20mg IV BID for stress ulcer prophalyxis Code Status: Full code Dispo- pends success with extubation John Payne, PGY-2 Personal Pager # [phone] Team Pager # [phone] I have seen and examined the patent in conjunction with . I directly contributed to the formulation of the above assessment and plan. I have read the above note and agree with the assessment and plan as written IS PATIENT CRITICALLY ILL ? Is there a high potential of sudden, clinically significant, or life threatening deterioration? Yes Is there a need for direct personal assessment and management to treat/prevent multiple vital organfailure/deterioration? Yes PATIENT IS CRITICALLY ILL WITH THESE DIAGNOSES BEING MANAGED BY [facility] TEAM: Acute Respiratory Failure CAD Afib Morbid obesity TOM Cholecystitis transaminitis Hyperbilirubinemia HTN TIME spent on the unit excluding procedures: 30 minutes KATYA ANGEL MD * Magui Mariscal MD - 09/09/2014 1:05 PM EST Procedure: ERCP Indication: acute cholecystitis/cholangitis Brief HPI: 69 yo M with morbid obesity, afib (on coumadin, currently on hold), HTN, CAD s/p PCI whopresented with RUQ pain radiating to mid epigastric region on 09/06 (currently pain free) - initially with transaminitis and Tbili 2; however, over past 48 H patient had transient hypotension and T bili elevation to 7-8. No fevers/chills/pain now. Plan for ERCP +- EUS with stone extraction and sphincterotomy (INR 1.7, last coumadin 09/06) Problem List: Patient Active Problem List Diagnosis Code ??? Nephrolithiasis 592.0 ??? Phimosis 605 ASA III Mallampati: III Sedation Plan: GA EXAM: HEENT: Airway examined, oropharynx clear LUNGS: Clear to auscultation HEART: Regular rate and rhythm, normal S1, S2 ABDOMEN: Normal bowel sounds, soft, non tender, non distended, A/P 69 y.o. male here for ERCP Proceed with the planned endoscopic procedure. Risks and benefits of the procedure explained to the patient. Consent signed. documented in this encounter Miscellaneous Notes * Consult Note - Berenice Gee RN - 09/20/2014 2:03 PM EST Images from the original note were not included. Certified Wound Care Nurse Note Situation: Follow up to see Jaime Crouch for right bennett venous ulcer. Background: eD-H notes reviewed for history, admitting diagnosis and active problem list. Wound Assessment and Care Provided: The patient was seen in room 206-A sitting up in the chair. Permission received to change dressing on the right leg. Patient sitting with legs elevated in recliner. Patient states the dressing was just changed today. The Mepilex Border was peeled back, the wound is closed, two small scabbed areas noted. Mepilex Border replaced. Patient states the penis is healed as well. Patient states he has had the leg wound for months and is pleased it is healed. Discussedwith patient that while in the hospital he has had his feet elevated more, at home compression wound be helpful to heal and prevent wounds. Discussed using compression such as Ready Wraps, patient inf ormed of the outpatient wound clinic, that he could go there to be measured for Ready Wraps. The following picture was taken: Negro Score: 20 Last Pressure Ulcer Prevention assessment: Shift Pressure Ulcer Prevention Occiput: No Injury Thoracic Spine: No Injury Sacral: No Injury Ischial - left: No Injury Ischial - right: No Injury Heel - left: No Injury Heel - right: No Injury Elbow - left: No Injury Elbow - right: No Injury Device Sites: O2 sat montior, SCD's/venodynes, IV sites Other Sites: tele Nutritional Status Wt Readings from Last 1 Encounters: 09/09/14 186 kg (410 lb 0.9 oz) Body mass index is 58.7 kg/(m^2). Labs Lab Results Component Value Date ALBUMIN 3.2 09/17/2014 ALBUMIN 3.0* 09/16/2014 ALBUMIN 2.8* 09/15/2014 WBC 9.3 09/16/2014 WBC 10.3* 09/15/2014 WBC 9.4 09/14/2014 HGB 15.4 09/16/2014 HGB 15.8 09/15/2014 HGB 15.2 09/14/2014 HCT 47.5 09/16/2014 HCT 48.7 09/15/2014 HCT 48.3 09/14/2014 Nutritional Intake Nutrition Assessments Diet/Nutrition Prescription: consistent carb/diabetic diet Specialty Diet/Nutrition Prescription: other (see comments) (no salt added) Diet/Feeding Assistance: none Diet/Feeding Tolerance: good Intake (%): 100% Fluids: adequate Fluids Requirement: PO Nutrition Risk Screen (Admission and every 4 days/sig change): no indicators present Nutrition Interventions Nutrition Interventions: diet recommended Promote Nutrition Balance: dietitian consult Current bed: Bariatric Assessment: The right leg venous wound appears to be closed with several small scabs present. Continue Mepilex Border to protect fragile skin. Wound Care Recommendations: Mepilex Border dressing sacrum and right lower bennett-change every 3 days and PRN: 1. Cleanse wound with dermal wound cleanser. 2. Apply Mepilex Border dressing Mobility: Turn and reposition every 2 hours and document in ED-H. Place a pillow above and below sacral area to off load pressure to the sacrum Offload pressure from heels by placing pillows lengthwise beneath legs while in bed. Offload pressure from heels by adjusting length of foot of bed. Follow up: The patient will benefit from [facility] be [facility] for Ready Wraps. A referral can be made by calling [phone] or by placing a [facility] wound referral. Discussed plan with: RN: Florinda Collier Please contact BERENICE GEE RN on pager [phone] or the wound care team at [phone] or pager [phone] with skin and wound care concerns or questions. * Plan of Care - Berna Salas RN - 09/19/2014 6:55 PM EST Problem: General Plan of Care Goal: Plan of Care Review Outcome: Ongoing (Interventions Implemented as Appropriate) 09/19/14 4386 Plan of Care Review Plan of Care Outcome Status ongoing (interventions implemented as appropriate) Progress improving Coping/Psychosocial Response Interventions Plan of Care Reviewed with patient OUTCOME EVALUATION NOTE: OUTCOME SUMMARY: Pt OOB with PT on stairs this morning. Pt tolerating well, no call from telemetry.Pt HR otherwise in 80's-90's, occassionally in low 100's. BP 160/99 at time of due dose of Diltiazem. 155/90 on recheck 20 minutes after administration of Dilt. RLE venous ulcer mepilex dressing changed, area cleansed with wound cleanser and new Mepilex in place. Appears to have healed and become smaller since last changed 3 days ago. Ordered dose of Dilt changed from 30mg to 60mg Q6hr, pt tolerating. Educated pt regarding current dose of Coumadin as pt noted, 7.5mg, that's way too high. Ask the doctors why I am taking that. paged and discussed PT and INR results and the purpose of the dose of Coumadin. Discussed with pt, showed pt INR and PT results for past several days, pt expressed verbal understanding. Pt expressed that he may be going home with Lovonox and would like to learn how to inject. Taught pt how to inject himself, pt unable to inject himself d/t lack of visualization and lack of ability to reach the area of injection. Discussed that his may need to help with this at home. He was given a Lovenox handout. Pt getting to edge of bed to void in urinal, OOB to chair by himself. Pt repositioning himself in bed without trapeze bar. Per MDs earliest pt will be discharged would be tomorrow. Pt and his are working with [facility] to order hospital bed for home. PLAN MOVING FORWARD: Monitor I&O, Encourage increased ambulation, Continue pt teaching regarding medication administration, ?D/c tomorrow INDIVIDUALIZED FALL PREVENTION: Assistance: 1-2 with walker Supervision: Nursing, pt appropriately using call estevez Surveillance: Masimo, Purposeful Rounding, Telemetry CPG OUTCOME EVALUATION: * Plan of Care - Katy Price RN - 09/19/2014 6:34 AM EST Problem: General Plan of Care Goal: Plan of Care Review Outcome: Ongoing (Interventions Implemented as Appropriate) 09/18/14 1302 09/18/140 Plan of Care Review Plan of Care Outcome Status ongoing (interventions implemented as appropriate) -- Progress improving -- Coping/Psychosocial Response Interventions Plan of Care Reviewed with -- patient .. OUTCOME EVALUATION NOTE: OUTCOME SUMMARY: Pt continues to express his desire to go home. Pt states I've kind of lost my sense of humor afterbeing here for so long. I really want to go home, but the doctors don't think I'm ready because of my heart rate. Pt remains on tele monitoring. Pt has a hx of chronic A fib. HR 75-100 when pt at rest up to 120's- 140's with activity (for the most part sustains 110's-120's with ambulation, but rarely up to 140's nonsustained). Pt's HR does not seem to increase when he sits at the edge of the bed to use the urinal; only with ambulation. Rare PVC's. Denies pain, CP and SOB this shift. OOB with standby assist and walker. Independently transfers to edge of bed and to chair. PLAN MOVING FORWARD: Continue tele monitoring and administration of scheduled metoprolol and diltiazem. INDIVIDUALIZED FALL PREVENTION: Assistance: OOB with a walker and standby assist. Ambulates in garvin x1 this shift. Supervision: Intermittent. Able to reliably summon assistance throughout the shift as needed using the nurse call light. Surveillance: Masimo. Tele. Purposeful rounding. CPG OUTCOME EVALUATION: Goal: Infection Control Outcome: Ongoing (Interventions Implemented as Appropriate) 09/18/140 Safety Interventions Isolation Precautions standard precautions maintained Problem: Skin Integrity Impairment, Risk/Actual (Adult, Obstetrics) Goal: Skin Integrity/Wound Healing Patient will demonstrate the desired outcomes. Outcome: Outcome (s) achieved Date Met: 09/19/14 09/19/14 06 Skin Integrity Impairment, Risk/Actual (Adult, Obstetrics) Skin Integrity/Wound Healing achieves outcome Problem: Activity Intolerance (Adult, Obstetrics) Goal: Activity Tolerance Patient will demonstrate the desired outcomes. Outcome: Outcome (s) achieved Date Met: 09/19/14 09/19/14625 Activity Intolerance (Adult, Obstetrics) Activity Tolerance achieves outcome Goal: Effective Energy Conservation Techniques Patient will demonstrate the desired outcomes. Outcome: Outcome (s) achieved Date Met: 09/19/14 09/19/14625 Activity Intolerance (Adult, Obstetrics) Effective Energy Conservation Techniques achieves outcome * Plan of Care - Katy Stubbs RN - 09/18/2014 1:06 PM EST Problem: General Plan of Care Goal: Plan of Care Review Outcome: Ongoing (Interventions Implemented as Appropriate) 09/18/14 1302 Plan of Care Review Plan of Care Outcome Status ongoing (interventions implemented as appropriate) Progress improving Coping/Psychosocial Response Interventions Plan of Care Reviewed with patient;spouse OUTCOME EVALUATION NOTE: OUTCOME SUMMARY: Ambulating in hallway with use of walker, standby assist Denies need for pain meds Diet tolerated well, Pt independent with repositioning Remains in chronic afib, actively monitored PLAN MOVING FORWARD: Continue to encourage ambulation in hallway Monitor I and O's Continue with telemetry as ordered INDIVIDUALIZED FALL PREVENTION: Assistance: Standby assist, uses walker when ambulating in hallway Supervision: Independent, using call estevez appropriately Surveillance: Masimo, Purposeful rounding, Telemetry CPG GOAL OUTCOME EVALUATION: Goal: Individualization and Mutuality Outcome: Ongoing (Interventions Implemented as Appropriate) Goal: Fall Prevention-Safe Patient Handling Outcome: Ongoing (Interventions Implemented as Appropriate) 09/18/14 0800 Safety Interventions Safety Precautions/Fall Reduction environmental modification;fall reduction program maintained;lighting adjusted for task/safety;nonskid shoes/slippers when out of bed Goal: Infection Control Outcome: Ongoing (Interventions Implemented as Appropriate) 09/18/14 1302 Safety Interventions Isolation Precautions standard precautions maintained Problem: Skin Integrity Impairment, Risk/Actual (Adult, Obstetrics) Goal: Skin Integrity/Wound Healing Patient will demonstrate the desired outcomes. Outcome: Ongoing (Interventions Implemented as Appropriate) 09/18/14 1302 Skin Integrity Impairment, Risk/Actual (Adult, Obstetrics) Skin Integrity/Wound Healing making progress toward outcome Problem: Activity Intolerance (Adult, Obstetrics) Goal: Activity Tolerance Patient will demonstrate the desired outcomes. Outcome: Ongoing (Interventions Implemented as Appropriate) 09/18/14 1302 Activity Intolerance (Adult, Obstetrics) Activity Tolerance making progress toward outcome * Plan of Care - Katy Price RN - 09/18/2014 4:25 AM EST Problem: General Plan of Care Goal: Plan of Care Review Outcome: Ongoing (Interventions Implemented as Appropriate) 09/17/14 1429 09/17/142042 Plan of Care Review Plan of Care Outcome Status ongoing (interventions implemented as appropriate) -- Progress improving -- Coping/Psychosocial Response Interventions Plan of Care Reviewed with -- patient .. OUTCOME EVALUATION NOTE: OUTCOME SUMMARY: Jimbo is in good spirits this shift. Continues to express his desire to go home rather than to rehab.Activity tolerance is much improved. Pt sits on the edge of the bed to use the urinal throughout the shift voiding adequate amounts of clear yellow urine. Ambulated in the garvin to the statue with a walker and a one person standby assist. Pt relying on bed rails and overhead trapeze bar to reposition and get OOB. Denies pain this shift. Denies N/V, CP and SOB. Using his CPAP machine independently on and off throughout the night. Large bruise to L abdomen remains. Brownish red venous stasis discoloration to BLE's. R bennett mepilex in place over venous ulcer c/d/i and not due to be changed this shift. Remainder of skin intact without areas of redness or breakdown. Pt offers no complaints this shift aside from wanting to go home. Had friends over at the end of the day shift and got to play his banjo - this was a positive experience for him. PLAN MOVING FORWARD: Continue to encourage ambulation/activity. OOB to chair for all meals. Wash up. Continue tele and vital sign monitoring (added diltiazem to medication regimen for better rate control as pt HR elevated with activity). INDIVIDUALIZED FALL PREVENTION: Assistance: OOB with one assist and a walker. Supervision: Intermittent. Pt able to reliably summon assistance throughout the shift as needed using the nurse call estevez. Surveillance: Masimo, Tele, purposeful rounding. CPG OUTCOME EVALUATION: Goal: Infection Control Outcome: Ongoing (Interventions Implemented as Appropriate) 09/17/142042 Safety Interventions Isolation Precautions standard precautions maintained Problem: Skin Integrity Impairment, Risk/Actual (Adult, Obstetrics) Goal: Identify Signs and Symptoms and Related Risk Factors Signs and symptoms and related risk factors are identified upon initiation of Human Response Clinical Practice Guideline (CPG) Outcome: Outcome (s) achieved Date Met: 09/18/14 09/12/14 1056 Skin Integrity Impairment, Risk/Actual Personal Related Risk Factors (Skin Integrity Impairment, Risk/Actual) stress Physiological Related Risk Factors (Skin Integrity Impairment, Risk/Actual) edema;nutritional/hydration deficiency;scar tissue;skin disorders Treatment Related Related Risk Factors (Skin Integrity Impairment, Risk/Actual) invasive catheters;medication;other (see comments) (venous ulcers) Signs and Symptoms (Skin Integrity Impairment, Risk/Actual) edema (venous ulcer) Goal: Skin Integrity/Wound Healing Patient will demonstrate the desired outcomes. Outcome: Ongoing (Interventions Implemented as Appropriate) 09/18/14 0415 Skin Integrity Impairment, Risk/Actual (Adult, Obstetrics) Skin Integrity/Wound Healing making progress toward outcome Problem: Activity Intolerance (Adult, Obstetrics) Goal: Identify Signs and Symptoms and Related Risk Factors Signs and symptoms and related risk factors are identified upon initiation of Human Response Clinical Practice Guideline (CPG) Outcome: Outcome (s) achieved Date Met: 09/18/14 09/14/14 1437 09/15/14 1808 Activity Intolerance Personal Related Risk Factors (Activity Intolerance) -- deconditioned status;general weakness Physiological Related Risk Factors (Activity Intolerance) cardiovascular disease/dysfunction;functional decline;obesity;peripheral vascular disease;pulmonary disease -- Treatment Related Related Risk Factors (Activity Intolerance) -- bed rest/immobility Signs and Symptoms (Activity Intolerance) dyspnea/shortness of breath;dysrhythmia;pain/discomfort;significant change in heart rate -- Goal: Activity Tolerance Patient will demonstrate the desired outcomes. Outcome: Ongoing (Interventions Implemented as Appropriate) 09/18/14414 Activity Intolerance (Adult, Obstetrics) Activity Tolerance making progress toward outcome Goal: Effective Energy Conservation Techniques Patient will demonstrate the desired outcomes. Outcome: Ongoing (Interventions Implemented as Appropriate) 09/18/14414 Activity Intolerance (Adult, Obstetrics) Effective Energy Conservation Techniques making progress toward outcome * Plan of Care - Katy Stubbs RN - 09/17/2014 2:39 PM EST Problem: General Plan of Care Goal: Plan of Care Review Outcome: Unable to achieve outcome by discharge 09/17/141428 Plan of Care Review Plan of Care Outcome Status ongoing (interventions implemented as appropriate) Progress improving Coping/Psychosocial Response Interventions Plan of Care Reviewed with patient;spouse OUTCOME EVALUATION NOTE: OUTCOME SUMMARY: Pt ambulating with use of walker and standby assist, tolerated well. HR remains irregular, MD aware of increase with activity Pt's in to visit and spoke with MD Silvestre regarding plan, home vs rehab Pt voiding qs and had BM today PLAN MOVING FORWARD: Continue to ambulate in hallway Pt and to speak with [facility] on Friday re Rehab vs home Monitor HR, continue with telemetry INDIVIDUALIZED FALL PREVENTION: Assistance: Needs 1 assist to get OOB, standby assist when ambulating with walker Supervision: Pt independent with use of call estevez, using appropriately Surveillance: Masimo, Purposeful, Telemetry CPG GOAL OUTCOME EVALUATION: Goal: Individualization and Mutuality Outcome: Ongoing (Interventions Implemented as Appropriate) Goal: Fall Prevention-Safe Patient Handling Outcome: Ongoing (Interventions Implemented as Appropriate) 09/17/14 0800 Safety Interventions Safety Precautions/Fall Reduction fall reduction program maintained;lighting adjusted for task/safety;nonskid shoes/slippers when out of bed Goal: Infection Control 09/17/14 142 Safety Interventions Isolation Precautions standard precautions maintained Problem: Skin Integrity Impairment, Risk/Actual (Adult, Obstetrics) Goal: Skin Integrity/Wound Healing Patient will demonstrate the desired outcomes. Outcome: Ongoing (Interventions Implemented as Appropriate) 09/17/141428 Skin Integrity Impairment, Risk/Actual (Adult, Obstetrics) Skin Integrity/Wound Healing making progress toward outcome Problem: Activity Intolerance (Adult, Obstetrics) Goal: Activity Tolerance Patient will demonstrate the desired outcomes. Outcome: Ongoing (Interventions Implemented as Appropriate) 09/17/14 1429 Activity Intolerance (Adult, Obstetrics) Activity Tolerance making progress toward outcome * Plan of Care - Sarah Conner RN - 09/17/2014 2:27 AM EST Problem: General Plan of Care Goal: Plan of Care Review Outcome: Ongoing (Interventions Implemented as Appropriate) 09/17/14 0226 Plan of Care Review Plan of Care Outcome Status ongoing (interventions implemented as appropriate) Progress improving Coping/Psychosocial Response Interventions Plan of Care Reviewed with patient OUTCOME EVALUATION NOTE: OUTCOME SUMMARY: Pt very motivated to walk and states he wants to return home rather than going to a rehab after discharge. Pt able to ambulate with FWW and stand-by assist of 2. Gait steady, Pt taking breaks periodically, grippy socks on. Mepilex dressing to sacrum and RLE remain CDI. Tolerating current diet, drinking ice water and tea this shift. Pt denies any pain or nausea. Repositioned every two hours and a s needed, pillow supports utilized, heels off-loaded while in bed. PLAN MOVING FORWARD: Tele and Masimo on. Encourage ambulation and using TheraPEP while awake. SCDs on and functioning. q2 hr turn schedule per pressure relief. INDIVIDUALIZED FALL PREVENTION: Assistance: 1-2 stand-by assist with transfers and ambulation, using FWW Supervision: moderate assist with ADLs Surveillance: Tele and Masimo on, purposeful rounding CPG GOAL OUTCOME EVALUATION: Goal: Individualization and Mutuality Outcome: Ongoing (Interventions Implemented as Appropriate) Goal: Fall Prevention-Safe Patient Handling Outcome: Ongoing (Interventions Implemented as Appropriate) 09/16/14201409/16/14 2211 09/17/14 0206 Musculoskeletal Interventions Activity/Level of Assistance -- up in room -- Positioning -- -- HOB up 30-45 degrees Muscle Strengthening activity/mobility promoted;mobility in bed promoted;personal routines for BADL/IADL promoted;up in chair encouraged for meals and activities -- -- Self-Care Promotion adaptive equipment provided;assistance provided to decrease frustration;bathingassistance provided;hygiene assistance provided;independence encouraged while providing assistance;personal routines for BADL/IADL promoted;personal/BADL objects within reach -- -- Activity and Safety Assistive Device Front wheel walker -- -- Safety Interventions Safety Precautions/Fall Reduction assistive device;commode/urinal/bedpan at bedside;environmental modification;fall reduction program maintained;lighting adjusted for task/safety;low bed;mobility aid;nonskid shoes/slippers when out of bed;room near unit station -- -- Vale Fall Risk History of Falling 0 -- -- Secondary Diagnosis 15 -- -- Ambulatory Aids 30 -- -- Intravenous Therapy/Heparin/Saline Lock 20 -- -- Gait/Transferring 10 -- -- Mental Status 0 -- -- Score 75 -- -- OTHER Vale Fall Risk Medium (25-44) -- -- Goal: Infection Control Outcome: Ongoing (Interventions Implemented as Appropriate) 09/16/142014 Coping/Psychosocial Response Interventions Counseling calming techniques promoted;relaxation techniques promoted;reassurance provided;problem solving facilitated;personal strengths integrated;understanding of situation facilitated;goal setting facilitated Safety Interventions Isolation Precautions standard precautions maintained Infection Prevention rest/sleep promoted Goal: Discharge Needs Assessment Outcome: Ongoing (Interventions Implemented as Appropriate) 09/17/14 0226 Discharge Needs Assessment Concerns to be Addressed adjustment to diagnosis/illness concerns;denies needs/concerns at this time * Plan of Care - Berna Salas RN - 09/16/2014 7:00 PM EST Problem: General Plan of Care Goal: Plan of Care Review Outcome: Ongoing (Interventions Implemented as Appropriate) 09/16/14 8443 Plan of Care Review Plan of Care Outcome Status ongoing (interventions implemented as appropriate) Progress improving Coping/Psychosocial Response Interventions Plan of Care Reviewed with patient OUTCOME EVALUATION NOTE: OUTCOME SUMMARY: Pt tolerating PO diet this shift. Urinating into bedside urinal and getting OOB tocommode over toilet to void x1. Good urinary output this shift. Pt is getting himself to the edge of his bed to urinate in bedside urinal when not OOB. Pt up to chair x3 this shift, repositioning himself in bed with trapeze bar. Pt ambulating with walker and 2 assist with chair this shift, once with nursing and once with PT. PT noting pt appears to have improved in activity tolerance.. Pt able to walk in garvin with some SOB, tele showing HR 140's-160's. IV antibiotics finished at this time. BP remaining around 140's/60's-80's until Metoprolol dose due at end of shift. Sacral mepilex changed this shift as if fell off. RLE venous ulcer mepilex changed, wound cleansed with Saf-Clens AF and sterile gauze with new Mepilex placed. PLAN MOVING FORWARD: Monitor I&O, Encourage Ambulation x3 next day shift, INDIVIDUALIZED FALL PREVENTION: Assistance: 1 with transfer, 2 and walker with chair following with ambulation Supervision: Nursing, pt appropriately calling nursing for assistance Surveillance: Paula, Purposeful rounding, Telemetry. CPG OUTCOME EVALUATION: Problem: Skin Integrity Impairment, Risk/Actual (Adult, Obstetrics) Goal: Skin Integrity/Wound Healing Patient will demonstrate the desired outcomes. Outcome: Ongoing (Interventions Implemented as Appropriate) 09/16/141852 Skin Integrity Impairment, Risk/Actual (Adult, Obstetrics) Skin Integrity/Wound Healing making progress toward outcome Problem: Activity Intolerance (Adult, Obstetrics) Goal: Activity Tolerance Patient will demonstrate the desired outcomes. Outcome: Ongoing (Interventions Implemented as Appropriate) 09/16/14 185 Activity Intolerance (Adult, Obstetrics) Activity Tolerance making progress toward outcome * Plan of Care - Sraah Conner RN - 09/16/2014 3:52 AM EST Problem: General Plan of Care Goal: Plan of Care Review Outcome: Ongoing (Interventions Implemented as Appropriate) 09/16/14 0351 Plan of Care Review Plan of Care Outcome Status ongoing (interventions implemented as appropriate) Progress improving Coping/Psychosocial Response Interventions Plan of Care Reviewed with patient OUTCOME EVALUATION NOTE: OUTCOME SUMMARY: Pt compliant with repositioning every two hours and PRN. Pillow supports utilized, heels off-loaded. Mepilex dressing CDI over RLE venous ulcer and Pt also has sacral Mepilex CDI. Pt denies any pain or nausea, tolerating a CHO/no added salt diet. Voiding adequate amounts, using urinal at bedside. +BS, +flatus. Lung sounds coarse in areas, Pt using TheraPEP with positive effect. Pt using own CPAP as needed this shift, sats maintained in 90's. PLAN MOVING FORWARD: Continue cardiac monitoring and wearing Masimo. SCDs on and functioning. q2 hr turn schedule per pressure relief. INDIVIDUALIZED FALL PREVENTION: Assistance: 1-2 assist with repositioning, 2-assist or ceiling lift for transfers, 2-assist with FWW for ambulation Supervision: moderate assist with ADLs Surveillance: Tele and Masimo, purposeful rounding CPG GOAL OUTCOME EVALUATION: Goal: Individualization and Mutuality Outcome: Ongoing (Interventions Implemented as Appropriate) 09/16/14 0351 Individualization Individualize the Plan of Care: using home CPAP as needed; turn schedule continued Patient Specific Preferences likes to use therapep, present at bedside Goal: Fall Prevention-Safe Patient Handling Outcome: Ongoing (Interventions Implemented as Appropriate) 09/15/14 0654 09/15/14201409/16/14 0234 Musculoskeletal Interventions Activity/Level of Assistance up in room;ambulated;with 2-person assist -- -- Positioning -- -- HOB up 30 degrees Muscle Strengthening -- activity/mobility promoted;mobility in bed promoted;personal routines for BADL/IADL promoted -- Self-Care Promotion -- adaptive equipment provided;assistance provided to decrease frustration;hygiene assistance provided;independence encouraged while providing assistance;personal/BADL objects within reach;toileting assistance provided;toileting offered -- Activity and Safety Assistive Device -- Oxygen -- Safety Interventions Safety Precautions/Fall Reduction -- assistive device;commode/urinal/bedpan at bedside;environmental modification;fall reduction program maintained;lighting adjusted for task/safety;mobility aid;nonskid shoes/slippers when out of bed;room near unit station -- Vale Fall Risk History of Falling -- 0 -- Secondary Diagnosis -- 15 -- Ambulatory Aids -- 30 -- Intravenous Therapy/Heparin/Saline Lock -- 20 -- Gait/Transferring -- 20 -- Mental Status -- 0 -- Score -- 85 -- OTHER Vale Fall Risk -- High (45 and higher) -- Goal: Infection Control Outcome: Ongoing (Interventions Implemented as Appropriate) 09/15/142014 Coping/Psychosocial Response Interventions Counseling emotional support provided;relaxation techniques promoted;verbalization of feelings encouraged;understanding of situation facilitated;reassurance provided;problem solving facilitated;personal strengths integrated;goal setting facilitated Safety Interventions Isolation Precautions standard precautions maintained Infection Prevention bronchial hygiene promoted;environmental surveillance;nutrition promoted;hydration promoted;promote handwashing;rest/sleep promoted Goal: Discharge Needs Assessment 09/16/14 0351 Discharge Needs Assessment Concerns to be Addressed adjustment to diagnosis/illness concerns Readmission Within the Last 30 Days no previous admission in last 30 days * Plan of Care - Berna Salas RN - 09/15/2014 6:11 PM EST Problem: General Plan of Care Goal: Plan of Care Review Outcome: Ongoing (Interventions Implemented as Appropriate) 09/15/14 180 Plan of Care Review Plan of Care Outcome Status ongoing (interventions implemented as appropriate) Progress improving Coping/Psychosocial Response Interventions Plan of Care Reviewed with patient OUTCOME EVALUATION NOTE: OUTCOME SUMMARY: Pt tolerating diet this shift, transferring from bed to chair with walker and assist. Pt was OOB to garvin with walker and PT, their walk was limited d/t HR of 140s-160's via telemetryand per neurodiagnostic technician call. Haque removed, pt voiding in urinal at bedside with good output. On home medication, reporting that he is pleased with this. Pt repositioning himself every 2 hours, OOB to chair for every meal. Pt walking to commode for BM. RLL mepilex in place over ulcer. See tele note, informed for 4 beat run of V. Tach, pt asymptomatic at that time. PLAN MOVING FORWARD: Continue Zosyn, Monitor I&O with bladder scan for ouput less than 400mL, Encourage ambulation, Position change every 2 hours, Monitor Lungs d/t h/o pulmonary edema, Change RLL mepilex tomorrow INDIVIDUALIZED FALL PREVENTION: Assistance: Walker, Lift, 1-2 assist Supervision: Nursing, pt appropriately requesting assistance Surveillance: Paula, Purposeful Rounding, Telemetry CPG OUTCOME EVALUATION: Problem: Skin Integrity Impairment, Risk/Actual (Adult, Obstetrics) Goal: Identify Signs and Symptoms and Related Risk Factors Signs and symptoms and related risk factors are identified upon initiation of Human Response Clinical Practice Guideline (CPG) Outcome: Ongoing (Interventions Implemented as Appropriate) Problem: Activity Intolerance (Adult, Obstetrics) Goal: Identify Signs and Symptoms and Related Risk Factors Signs and symptoms and related risk factors are identified upon initiation of Human Response Clinical Practice Guideline (CPG) Outcome: Ongoing (Interventions Implemented as Appropriate) 09/15/148 Activity Intolerance Personal Related Risk Factors (Activity Intolerance) deconditioned status;general weakness Treatment Related Related Risk Factors (Activity Intolerance) bed rest/immobility * Plan of Care - Bruna Duron RN - 09/14/2014 3:04 PM EST Problem: General Plan of Care Goal: Plan of Care Review OUTCOME EVALUATION NOTE: OUTCOME SUMMARY: Pt making progress with mobility. Up with PT/OT. HR up to 160 per tele, cuncurrent with ambulation short distance in room, decrease in SpO2, Mild SOB; oxygen applied. Pt recovered well to baseline afib and on RA. Respiratory Therapy provided therapep with instruction. Intermittent non- productive cough. Used CPAP briefly after episode above of SOB, with good effect. Pt using Therapep effectively, now producingclear sputum. Allopurinol and Lasix initiated, which pt uses at home. Lovenox restarted. Coumadin dose ordered. Urine via haque clear yellow, no blood visible. FRUCTOSE LOADER rounded; pt verbalized understanding that he should swallow twice for each sip. Pt was lifted up to chair for lunch. Will encourage OOB for all meals. Pt compliant and appears motivated. PLAN MOVING FORWARD: PT/OT. Lift to chair for meals. Turn Q 2 hr. When in bed. Tele. Monitor all parameters. Leah working tomorrow but is available by cell phone; number on white board in room and inchart. She will be in to visit late in the day. She has provided pt's shoes to use tomorrow when working with PT Discharge plans pending progress INDIVIDUALIZED FALL PREVENTION: Assistance: Assist to turn in bed Q 2 hr. Ceiling lift for nursing transfers. Up with PT for mobilization. Supervision: 1-2 assist depending on activity Surveillance: Paula, tele, purposeful rounding CPG GOAL OUTCOME EVALUATION: Goal: Individualization and Mutuality would like pt to be able to go home; this was acknowledged while also educating patient and about golas that need to be met before discharge homw is appropriate. supportive and verbalized understanding. Pt in agreement. Goal: Fall Prevention-Safe Patient Handling Outcome: Ongoing (Interventions Implemented as Appropriate) 09/14/14 1437 Musculoskeletal Interventions Activity/Level of Assistance ambulated;chair Positioning HOB up 30 degrees Muscle Strengthening activity/mobility promoted;mobility in bed promoted;personal routines for BADL/IADL promoted Self-Care Promotion assistance provided to decrease frustration;dressing assistance provided;bathing assistance provided;hygiene assistance provided;independence encouraged while providing assistance;personal routines for BADL/IADL promoted;personal/BADL objects within reach Activity and Safety Assistive Device Front wheel walker (ceiling lift used for transfer bed<>chair) Safety Interventions Safety Precautions/Fall Reduction assistive device;environmental modification;fall reduction program maintained;family at bedside;lighting adjusted for task/safety;low bed;muscle strengthening facilitated;nonskid shoes/slippers when out of bed;room near unit station Goal: Infection Control Outcome: Ongoing (Interventions Implemented as Appropriate) 09/14/14 1437 Coping/Psychosocial Response Interventions Counseling emotional support provided;goal setting facilitated;reassurance provided;relaxation techniques promoted;understanding of situation facilitated;verbalization of feelings encouraged Safety Interventions Infection Prevention bronchial hygiene promoted;hydration promoted;nutrition promoted;promote handwashing;rest/sleep promoted Pt was provided with sanitary wipes and encouraged to wash hands regularly. Goal: Discharge Needs Assessment Outcome: Ongoing (Interventions Implemented as Appropriate) 09/14/14 1437 Discharge Needs Assessment Concerns to be Addressed adjustment to diagnosis/illness concerns Discharge Planning Comments Referrals made by [facility] for SNF expressed that they would like for pt to go home if possible. Ongoing PT/OT, pt needs max assist for mobility and ADL's. gave names of SNF facilities that could work for them. Problem: Skin Integrity Impairment, Risk/Actual (Adult, Obstetrics) Goal: Identify Signs and Symptoms and Related Risk Factors Signs and symptoms and related risk factors are identified upon initiation of Human Response Clinical Practice Guideline (CPG) Outcome: Ongoing (Interventions Implemented as Appropriate) 09/12/14 1056 Skin Integrity Impairment, Risk/Actual Personal Related Risk Factors (Skin Integrity Impairment, Risk/Actual) stress Physiological Related Risk Factors (Skin Integrity Impairment, Risk/Actual) edema;nutritional/hydration deficiency;scar tissue;skin disorders Treatment Related Related Risk Factors (Skin Integrity Impairment, Risk/Actual) invasive catheters;medication;other (see comments) (venous ulcers) Signs and Symptoms (Skin Integrity Impairment, Risk/Actual) edema (venous ulcer) Problem: Activity Intolerance (Adult, Obstetrics) Goal: Identify Signs and Symptoms and Related Risk Factors Signs and symptoms and related risk factors are identified upon initiation of Human Response Clinical Practice Guideline (CPG) Outcome: Ongoing (Interventions Implemented as Appropriate) 09/14/14 1437 Activity Intolerance Personal Related Risk Factors (Activity Intolerance) deconditioned status;general weakness Physiological Related Risk Factors (Activity Intolerance) cardiovascular disease/dysfunction;functional decline;obesity;peripheral vascular disease;pulmonary disease Treatment Related Related Risk Factors (Activity Intolerance) bed rest/immobility;diet restrictions;medication side effects Signs and Symptoms (Activity Intolerance) dyspnea/shortness of breath;dysrhythmia;pain/discomfort;significant change in heart rate Pt had increase HR to 160 when amb in room a short distance with PT. Denies CP, reported SOB, oxygen applied. Pt recovered after a few minutes of rest in bed, HR auscultated at irreg irreg rate 100. Tele maintained. * Initial Assessments - Sofía Alonso, OT - 09/14/2014 10:02 AM EST Occupational Therapy Evaluation Patient profile: Jaime Crouch is a 69 y.o. 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 Patient underwent ERCP on 09/09/2014 and then developed acute respiratory failure which required intubation. He remained intubated for several days in the ICU to improve lung function. Patientcurrently extubated and transferred from ICU to [facility] on 09/13/2014. Past Medical History Diagnosis Date ??? Kidney stone ??? Hypertension ??? ASCVD (arteriosclerotic cardiovascular disease) 1993 first [place] 1992, stent to LAD in 2006 ??? [...] ERCP performed by Nick Broussard MD at [facility] Social History: Patient lives with his and large dog in a multilevel home. 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 Home Setup: 3 steps with rail to enter main level of 3 story home, with full flights of stairs to enter basement down from main level and to enter upstairs from main level. 1/2 bathroom on main level. Bedroom and full bathroom upstairs. Tub/shower setup. Patient may be able to stay in basement level when home alone. Basement setup: No steps to enter from outside, car able to drive up close to entrance, bedroom and full bathroom with walk-in shower. DME: Long handled shoe horn, able to borrow FWW Baseline ADL/Mobility: Independent or modified independence with ADL's and IADL's. Home BiPAP. Code Status: Full Code Activity Orders: Activity as tolerated Precautions/Special Considerations: High risk for skin breakdown, at risk to fall, telemetry monitoring, haque catheter, low sodium diet/no added salt, home BiPAP, bariatric Subjective: I'm going home Friday! Thank you. Objective: Patient seen today for OT evaluation, with patient's present. Cognitive Status/Behavior: Alert and oriented to self, place, day, and situation. Very pleasant andcooperative. Motivated for home discharge, not motivated for rehab through receptive to recommendations and discussion on reasons for rehab if needed depending on progression of strength and functional capabilities while in hospital. May have some decreased safety awareness regarding needs and abilities to safety stay home and function alone when at work. Communication: [facility] Vision & Perception: WFL. Wears glasses. Able to read white board from a distance. Range of motion, strength, coordination: Hand dominance: right Bilateral UEs are within functional limitations. Good map compiler strength. Able to touch thumb to each finger on both hands, except R thumb to R pinky. LE status: Impaired strength. Able to assist with legs moving anti-gravity while in bed. Sensation: No numbness or tingling reported. Activities of Daily Living: Self-feeding: Patient able to feed self breakfast without difficulty this morning, though reportingholding of utensils felt slightly off/different. Patient's reported that he has had some shakiness when feeding prior to today while in the hospital but that has resolved/improved. Hygiene Grooming: Patient brushed teeth after setup while seated edge of bed with feet supported flat on platform step (bed at lowest position). Patient able to manage toothpaste cap and application of basin/water/paste/brush without any difficulty. Upper and lower body dressing and bathing: ?? Patient needs assist at this time to don/doff socks, though reports he has a way to perform LB dressing at home. ?? Patient able to sponge bath arms, upper body, and face after setup of water, basin, soap, washcloth at edge of bed. Patient's assisted with washing patient's back. Toileting: Haque currently in place. Functional Mobility: Supine to sit: With HOB raised, moderate assistance x2 Patient able to sit edge of bed with feet supported on platform step, needing initial UE support, though able to maintain sitting with good balance while performing self care activities. Patient requiring mechanical lift with nursing at this time, though PT with plans to attempt standing/ambulating this afternoon with appropriate assistive device. Sit to supine: Moderate assistance x2, with HOB raised. Balance: Sitting balance: Good at edge of bed with feet flat on platform setup with close supervision and minimal assistance for initial UE support. Able to perform self care activities without support while sitting edge of bed. Standing balance: Not assessed. Anticipate poor at this time, PT with plans to bring appropriate assistive device to increase standing balance and ambulation efforts. IADL???s: Assistance available to patient. Patient needs assist at this time. Endurance: Information taken from last recorded vitals in flowsheet. Last value Range last 8 hrs Heart Rate Heart Rate: 100 Heart Rate: [74-114] Blood Pressure BP: 162/84 mmHg BP: (154-162)/(84-98) SpO2 SpO2: 94 % SpO2: [94 %-96 %] Patient on room air. Patient vitals remained stable throughout session. Pain: Minimal pain reported. Skin: discoloration/tender skin bilateral shins Informed Consent: The patient agrees to and understands the OT treatment plan and goals. Education: The patient has been educated on Role of occupational therapy/rehabilitation, Adaptive equipment training, ADL, Safety, Precautions/Protocol, Functional Mobility, Activity pacing/Energy conservation, Home Management, Balance and Recommendations and verbalizes understanding though would benefit from continued reinforcement. Patient status, treatment, and mobility recommendations discussed with nursing. Assessment: The patient has been seen by OT for evaluation, and he presents with impaired ability to perform daily activities and functional mobility secondary to impaired LE strength/ROM, decreased endurance, and deconditioning after limited mobility during stay in ICU. The patient tolerated the session with good motivation and cooperation. He was able to tolerate self care activities while sitting edge of bed without maintenance of external UE support. The patient is motivated for home discharge and progressing in therapy, though continues to require rehabilitation for strength, ADL participation, and increasing endurance. The patient would benefit from ongoing and skilled OT services to m aximize functional independence. Recommendations: Equipment needs at discharge: Continue to assess. Anticipate at least walker, shower chair, adaptive equipment Discharge Recommendations: Patient at this time requires 24/7 support and assistance. Patient and are hoping for home discharge, though at this time patient would benefit from rehab to increase functional strength, ADL participation, safety, and independence in daily activities. Other Recommendations: No other consults recommended at this time Goals: To be achieved by 09/21/2014. 1. Patient will demonstrate knowledge of precautions and limitations during functional mobility andADL's. 2. Patient will perform toilet transfers with minimal assistance, using assistive device as needed. 3. Patient will perform LB dressing/bathing with minimal assistance and use of adaptive equipment as needed. 4. Patient will perform 2-3 hygiene grooming tasks while seated/standing at sink for 5 minutes withstable vitals and supervision. 5. Patient will demonstrate energy conservation principals with 4-5 ADL's with minimal verbal cues. 6. Family/caregiver to demonstrate knowledge of therapeutic interventions to support the care of the patient. Plan: Patient to be seen 3-5x per week for therapy including Role of occupational therapy/rehabilitation, Transfers, Assistive device/technique, Adaptive equipment training, ADL, Breathing exercises,Positioning, Safety, Precautions/Protocol, Functional Mobility, Activity pacing/Energy conservation, Home Management, Balance, Recommendations, Family training and Discharge planning. Eval Date: 09/14/2014 Total time spent with patient: 62 minutes for initial evaluation Total timed interventions: 0 minutes Pager: [phone] Sofía Alonso OTR/L Occupational Therapy Rehabilitation Department * Plan of Care - Miri Munoz RN - 09/14/2014 6:41 AM EST Problem: General Plan of Care Goal: Plan of Care Review Outcome: Ongoing (Interventions Implemented as Appropriate) 09/13/14 0552 09/13/141948 Plan of Care Review Plan of Care Outcome Status ongoing (interventions implemented as appropriate) -- Progress no change -- Coping/Psychosocial Response Interventions Plan of Care Reviewed with -- patient OUTCOME EVALUATION NOTE: OUTCOME SUMMARY: See Progress note from this RN. PLAN MOVING FORWARD: IV antibiotics; encourage activity. INDIVIDUALIZED FALL PREVENTION: Assistance: Bed rest; over head lift for transfers from bed to chair. Supervision: prn Surveillance: Masimo, telemetry, rounding CPG GOAL OUTCOME EVALUATION: Goal: Fall Prevention-Safe Patient Handling Outcome: Ongoing (Interventions Implemented as Appropriate) 09/13/14 1108 09/13/14 1500 09/13/14 1900 Musculoskeletal Interventions Activity/Level of Assistance -- -- -- Positioning -- -- -- Muscle Strengthening mobility in bed promoted;activity/mobility promoted -- -- Self-Care Promotion grooming assistance provided;bathing assistance provided -- -- Activity and Safety Assistive Device -- Sling -- Safety Interventions Safety Precautions/Fall Reduction -- -- environmental modification;fall reduction program maintained;lighting adjusted for task/safety;nonskid shoes/slippers when out of bed Vale Fall Risk History of Falling -- -- -- Secondary Diagnosis -- -- -- Ambulatory Aids -- -- -- Intravenous Therapy/Heparin/Saline Lock -- -- -- Gait/Transferring -- -- -- Mental Status -- -- -- Score -- -- -- OTHER Vale Fall Risk -- -- -- 09/13/14 19409/14/14 0003 Musculoskeletal Interventions Activity/Level of Assistance bed rest -- Positioning -- with 2-person assist Muscle Strengthening -- -- Self-Care Promotion -- -- Activity and Safety Assistive Device -- -- Safety Interventions Safety Precautions/Fall Reduction -- -- Vale Fall Risk History of Falling 0 -- Secondary Diagnosis 15 -- Ambulatory Aids 0 -- Intravenous Therapy/Heparin/Saline Lock 20 -- Gait/Transferring 20 -- Mental Status 0 -- Score 55 -- OTHER Vale Fall Risk High (45 and higher) -- Goal: Infection Control Pt receiving IV antibiotics. Problem: Skin Integrity Impairment, Risk/Actual (Adult, Obstetrics) Goal: Skin Integrity/Wound Healing Patient will demonstrate the desired outcomes. 09/14/14 0635 Skin Integrity Impairment, Risk/Actual (Adult, Obstetrics) Skin Integrity/Wound Healing unable to achieve outcome LLE wound unchanged from the previous night. * Plan of Care - Karrie Munguia RN - 09/13/2014 6:35 PM EST Problem: General Plan of Care Goal: Plan of Care Review Outcome: Ongoing (Interventions Implemented as Appropriate) 09/13/14 0552 09/13/14 1108 Plan of Care Review Plan of Care Outcome Status ongoing (interventions implemented as appropriate) -- Progress no change -- Coping/Psychosocial Response Interventions Plan of Care Reviewed with -- patient OUTCOME EVALUATION NOTE: OUTCOME SUMMARY: At change of shift nursing report, it was found that pt urine was bloody. Dr. Crawford aware of bloody urine with clots. Pt denied any pain or discomfort. Lovenox discontinued and labs assessed. Pt Pt A+Ox4 throughout the day. Pt mechanically lifted to the chair. Pt working with physical therapy and successfully able to stand. Speech assessing patient and pt diet advanced from dysphagia/nector thick to QUNYH with regular liquids. Pt at bedside and supportive. Pt repositioned throughout the day. Pt A+Ox4 and able to appropriately call for assistance. Call estevez within reach. PLAN MOVING FORWARD: Continue to encourage movement in bed. Monitor for signs/symptoms of bleeding. Looking at vitals/labs/physical presentation. Monitor for s/s of infection looking at labs/vitals and physical assessment. INDIVIDUALIZED FALL PREVENTION: Assistance: mechanical lift to get OOB. Two assist to turn in bed. Supervision: Pt requires supervision with position changes in bed and tranfers Surveillance: Continue with purposeful hourly rounding. Continue with tele/masimo CPG GOAL OUTCOME EVALUATION: Goal: Individualization and Mutuality Outcome: Ongoing (Interventions Implemented as Appropriate) Goal: Fall Prevention-Safe Patient Handling Outcome: Ongoing (Interventions Implemented as Appropriate) 09/13/14 1108 09/13/14 1142 09/13/14 1300 Musculoskeletal Interventions Activity/Level of Assistance -- -- bed rest Positioning -- -- with 2-person assist;mechanical lift Muscle Strengthening mobility in bed promoted;activity/mobility promoted -- -- Self-Care Promotion grooming assistance provided;bathing assistance provided -- -- Activity and Safety Assistive Device -- -- -- Safety Interventions Safety Precautions/Fall Reduction fall reduction program maintained;family at bedside;lighting adjusted for task/safety;muscle strengthening facilitated -- -- Vale Fall Risk History of Falling -- 0 -- Secondary Diagnosis -- 15 -- Ambulatory Aids -- 0 -- Intravenous Therapy/Heparin/Saline Lock -- 20 -- Gait/Transferring -- 20 -- Mental Status -- 0 -- Score -- 55 -- OTHER Vale Fall Risk -- High (45 and higher) -- 09/13/14 1500 Musculoskeletal Interventions Activity/Level of Assistance -- Positioning -- Muscle Strengthening -- Self-Care Promotion -- Activity and Safety Assistive Device Sling Safety Interventions Safety Precautions/Fall Reduction -- Vale Fall Risk History of Falling -- Secondary Diagnosis -- Ambulatory Aids -- Intravenous Therapy/Heparin/Saline Lock -- Gait/Transferring -- Mental Status -- Score -- OTHER Vale Fall Risk -- Goal: Infection Control Outcome: Ongoing (Interventions Implemented as Appropriate) Goal: Discharge Needs Assessment Outcome: Ongoing (Interventions Implemented as Appropriate) 09/12/14 1056 09/13/14 1546 Living Environment Transportation Available -- family or friend will provide Discharge Needs Assessment Concerns to be Addressed discharge planning concerns;other (see comments) (wants to return to work) -- Concerns Comments Pt stated he does not want to go to a rehab facility post discharge -- Problem: Skin Integrity Impairment, Risk/Actual (Adult, Obstetrics) Goal: Identify Signs and Symptoms and Related Risk Factors Signs and symptoms and related risk factors are identified upon initiation of Human Response Clinical Practice Guideline (CPG) Outcome: Ongoing (Interventions Implemented as Appropriate) 09/12/14 1056 Skin Integrity Impairment, Risk/Actual Personal Related Risk Factors (Skin Integrity Impairment, Risk/Actual) stress Physiological Related Risk Factors (Skin Integrity Impairment, Risk/Actual) edema;nutritional/hydration deficiency;scar tissue;skin disorders Treatment Related Related Risk Factors (Skin Integrity Impairment, Risk/Actual) invasive catheters;medication;other (see comments) (venous ulcers) Signs and Symptoms (Skin Integrity Impairment, Risk/Actual) edema (venous ulcer) Problem: Activity Intolerance (Adult, Obstetrics) Goal: Identify Signs and Symptoms and Related Risk Factors Signs and symptoms and related risk factors are identified upon initiation of Human Response Clinical Practice Guideline (CPG) Outcome: Ongoing (Interventions Implemented as Appropriate) 09/13/14 05 Activity Intolerance Personal Related Risk Factors (Activity Intolerance) deconditioned status;general weakness;lack of motivation;sedentary lifestyle Physiological Related Risk Factors (Activity Intolerance) cardiovascular disease/dysfunction;obesity;peripheral vascular disease Treatment Related Related Risk Factors (Activity Intolerance) medication side effects Signs and Symptoms (Activity Intolerance) dysrhythmia Goal: Activity Tolerance Patient will demonstrate the desired outcomes. Outcome: Ongoing (Interventions Implemented as Appropriate) 09/13/14 05 Activity Intolerance (Adult, Obstetrics) Activity Tolerance unable to achieve outcome Goal: Effective Energy Conservation Techniques Patient will demonstrate the desired outcomes. Outcome: Ongoing (Interventions Implemented as Appropriate) 09/13/14551 Activity Intolerance (Adult, Obstetrics) Effective Energy Conservation Techniques unable to achieve outcome * Consult Note - Sofía iAken RN - 09/13/2014 12:26 PM EST Certified Wound Care Nurse ICU Transfer Note Patient transferred from ICU to [facility]. Discussed patient with RN. Reviewed current plan of care for wounds/skin issues. Discussed that a member of the wound care team would be following the patient on Friday. RN verbalized understanding of current plan and had no other concerns at this time. Right lower bennett wound has been cleansed and new mepilex applied and legs are elevated. Order to beplaced. Discussed with MARK Yoon * Plan of Care - Miri Munoz RN - 09/13/2014 6:08 AM EST Problem: General Plan of Care Goal: Plan of Care Review 09/13/14 0552 Plan of Care Review Plan of Care Outcome Status ongoing (interventions implemented as appropriate) Progress no change Coping/Psychosocial Response Interventions Plan of Care Reviewed with patient OUTCOME EVALUATION NOTE: OUTCOME SUMMARY: Pt spent the night resting in bed with CPAP on. O2 dipped below 90% at times but popped back up quickly. Copious urine output via haque. Pt able to tolerate thick liquids to swallow his pills. Telemetry report showed pt in Afib, HR 90-120 bpm; ;no acute events. See tele report in patient's chart. Pt has periodic couch; non productive. PLAN MOVING FORWARD: Encourage strengthening activities. Food and Nutrition Consult place in effort to educate, motivate patient to lose weight. INDIVIDUALIZED FALL PREVENTION: Assistance: Bedrest. Able to turn somewhat on his own. Staff assisted him to turn in order to replace sacral mepilex. Supervision: prn. Surveillance: Masimo, telemetry, rounding. CPG GOAL OUTCOME EVALUATION: Goal: Individualization and Mutuality 09/13/14 0552 Individualization Patient Specific Interventions cpap Goal: Fall Prevention-Safe Patient Handling Outcome: Ongoing (Interventions Implemented as Appropriate) 09/12/14 0800 09/12/14 1200 09/12/142044 Musculoskeletal Interventions Activity/Level of Assistance -- -- bed rest (on specialty mattress, Hill Rom) Positioning -- -- HOB up 30 degrees;supine Muscle Strengthening mobility in bed promoted -- -- Self-Care Promotion bathing assistance provided;dressing assistance provided;feeding assistance provided;hygiene assistance provided;grooming assistance provided;independence encouraged while providing assistance;toileting assistance provided -- -- Activity and Safety Assistive Device -- Oxygen -- Safety Interventions Safety Precautions/Fall Reduction -- -- fall reduction program maintained;lighting adjusted for task/safety;nonskid shoes/slippers when out of bed Vale Fall Risk History of Falling -- -- 0 Secondary Diagnosis -- -- 15 Ambulatory Aids -- -- 0 Intravenous Therapy/Heparin/Saline Lock -- -- 20 Gait/Transferring -- -- 0 Mental Status -- -- 0 Score -- -- 35 OTHER Vale Fall Risk -- -- Medium (25-44) Goal: Infection Control 09/12/14 0800 09/12/142044 Coping/Psychosocial Response Interventions Counseling calming techniques promoted;emotional support provided;goal setting facilitated;personalstrengths integrated;reassurance provided;relaxation techniques promoted;understanding of situationfacilitated;verbalization of feelings encouraged -- Safety Interventions Isolation Precautions -- standard precautions maintained Infection Prevention -- rest/sleep promoted Goal: Discharge Needs Assessment 09/13/14551 Discharge Needs Assessment Discharge Planning Comments pt might benefit from Diet/Nutrition consult re obesity, benefits of weight loss. Problem: Skin Integrity Impairment, Risk/Actual (Adult, Obstetrics) Goal: Skin Integrity/Wound Healing Patient will demonstrate the desired outcomes. Outcome: Ongoing (Interventions Implemented as Appropriate) 09/13/14551 Skin Integrity Impairment, Risk/Actual (Adult, Obstetrics) Skin Integrity/Wound Healing other (see comments) RLE wound covered with a Mepilex. Problem: Activity Intolerance (Adult, Obstetrics) Goal: Identify Signs and Symptoms and Related Risk Factors Signs and symptoms and related risk factors are identified upon initiation of Human Response Clinical Practice Guideline (CPG) Outcome: Ongoing (Interventions Implemented as Appropriate) 09/13/14551 Activity Intolerance Personal Related Risk Factors (Activity Intolerance) deconditioned status;general weakness;lack of motivation;sedentary lifestyle Physiological Related Risk Factors (Activity Intolerance) cardiovascular disease/dysfunction;obesity;peripheral vascular disease Treatment Related Related Risk Factors (Activity Intolerance) medication side effects Signs and Symptoms (Activity Intolerance) dysrhythmia Goal: Activity Tolerance Patient will demonstrate the desired outcomes. 09/13/14551 Activity Intolerance (Adult, Obstetrics) Activity Tolerance unable to achieve outcome Spent the night in bed Goal: Effective Energy Conservation Techniques Patient will demonstrate the desired outcomes. 09/13/14551 Activity Intolerance (Adult, Obstetrics) Effective Energy Conservation Techniques unable to achieve outcome Slept all night * Initial Assessments - Sherman Duron, PT - 09/12/2014 3:07 PM EST Physical Therapy Initial Evaluation Critical Care Patient profile: Patient is a 69 y.o. male of [place]ino[place] Vance MD, admitted in transfer on 09/09/2014 for ERCP to r/o acute cholecystitis. Pt intubated for procedure and required several days to improve lung function for extubation. Patient Active Problem List Diagnosis Code ??? Nephrolithiasis 592.0 ??? Phimosis 605 ??? Hypertension 401.9 ??? Cholecystitis 575.10 ??? Atrial fibrillation 427.31 ??? TOM on CPAP 327.23 Past Surgical History Procedure Laterality Date ??? Lithotripsy ??? Total hip arthroplasty Bilateral ??? Cystoscopy for BPH ??? Coronary angioplasty with stent placement 2006 LAD ??? Kidney stone surgery Left removal of stones: nephrolithotomy ??? 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 Stairs: yes; done slowly Baseline Mobility: independent per spouse; works daily Equipment at home: no routine DME Precautions/Special Considerations: fall risk; rapid a-fib; bariatric; tender shins Subjective: (needs bed jones) Mental Status/Behavior: pt seen at bedside with spouse participating; responses seem vague; cooperative overall; was on propofol Vital Signs: Last value Range last 8 hrs Temperature Temp: 37.1 ??C (98.8 ??F) Temp: [36.9 ??C (98.4 ??F)-37.2 ??C (99 ??F)] Heart Rate Heart Rate: 96 Heart Rate: [96-113] Blood Pressure BP: 149/91 mmHg BP: (143-151)/(86-95) Respiratory Rate Resp: 19 Resp: [15-24] SpO2 SpO2: 95 % SpO2: [92 %-97 %] HR: 101 a-fib BP: 139/80(43) L arm cuff SpO2: 97% on RA Airway clearance: frequent cough; self suctioning Pain: no c/o chronic or acute pain Skin: ?edema; discolored and tender skin shins ROM: no obvious limitations beyond soft tissue girth Strength: having difficulty moving limbs anti-gravity; delayed and weak responses (sedation withdrawal) Motor Control: slow to move; able to hold cup and use straw Bed Mobility: Rolls with moderate assist of [address]/remove bed jones Scoots with moderate assist x1 as pt moved to [facility] from dip in bariatric bed Semi-supine <-> Sit with moderate assist x1 and use of bed Tolerates chair position of bed: yes; tolerated dangle Balance: Sit: fair in dangle Stand: did not attempt to stand Transfers: will need to assess function when sedation effects jared Requires mechanical lift at this time: yes Gait: n/t; has wide walker to use Informed Consent: The patient agrees to and understands the PT treatment plan and goals; would benefit from repetition Education: patient has been educated on Role of therapy and verbalizes understanding. Patient status, treatment, and mobility recommendations discussed with nursing. Assessment: remains sedated and slow to process information and move; should mobilize with less assist when more like self; standing, transferring OOB and walking remain to be assessed Goals: To be achieved on this admit: 1. Maintain ROM in neck, trunk, and extremities. 2. Assist pt in maintaining clear airway. 3. Assist pt in maintaining skin and joint integrity through positioning. 4. Pt will participate in mobility progression toward upright as tolerated/appropriate. 5. Pt will participate in active/active assisted exercise to promote strength and ROM for functional mobility 6. Ambulation as tolerated without assistive device 7. Stairs, at least 1 flight prior to d/c Plan: transfer to floor to lift room; assess stand, transfer, ambulation with walker; pt will need to negotiate several stairs to return home and avoid rehab placment post d/c; pt does not use assistive devices to ambulate normally Pt to be seen daily for therapy including Bed mobility, Transfers, Stairs, Gait , Activity pacing/Energy conservation and Discharge planning. Discharge Recommendations: pt and spouse would like pt home; may need rehab if goals not achieved Total time spent with patient: 75 minutes Total timed interventions: 0 minutes (extended eval) Pager: [phone] SHERMAN DURON PT 09/12/2014 Physical Therapy Rehabilitation Department * Consult Note - Sofía Aiken, RN - 09/12/2014 1:45 PM EST Images from the original note were not included. Certified Wound Care Nurse Note Situation: Asked to see Jaime Crouch by nursing for right leg venous ulcer and blister to penis Background: eD-H notes reviewed for history, admitting diagnosis and active problem list. Wound Assessment and Care Provided: Pt sitting up in bed with at the bedside. Explained purpose of visit and pt agreed to assessment. Pt noted to have chronic discoloration from mid bennett down to feet related to venous changes. Right bennett with multiple scabs and an open area to right outer lower bennett. Mepilex removed from wound and dried drainage removed from wound bed. Wound with beefy red tissue. Discussed use of compression,pt refuses. Discussed with pt edema factor in seeming inability to heal wound, pt maintained refusal to have compression. Discussed covering wound bed with mepilex for moist wound healing and keepingleg elevated to reduce edema. Pt and verbalized understanding. Pt with small open area to top of penis. Per pt, was circumcised two years ago and has itching at this site. He states open area caused by scratching. See photo: Right bennett: Negro Score: 12 Last Pressure Ulcer Prevention assessment: Shift Pressure Ulcer Prevention Occiput: No Injury Thoracic Spine: No Injury Sacral: No Injury Ischial - left: No Injury Ischial - right: No Injury Heel - left: No Injury Heel - right: No Injury Elbow - left: No Injury Elbow - right: No Injury Device Sites: ETT, OG, O2 sat montior, wrist restraints, SCD's/venodynes, IV sites, haque Other Sites: BP cuff, EKG leads, ID bands Existing Wounds: Wound 09/11/14 Right lower leg ulceration, venous (Active) Wound WDL ex 09/12/2014 8:00 AM Dressing Appearance intact;other (see comments) 09/12/2014 8:00 AM Base unable to visualize 09/12/2014 8:00 AM Area redness;moist 09/12/2014 8:00 AM Edges irregular 09/12/2014 8:00 AM Length (cm) 2.5 09/11/2014 2:00 PM Width (cm) 2 09/11/2014 2:00 PM Drainage Characteristics/Odor other (see comments) 09/11/2014 2:00 PM Drainage Amount scant 09/12/2014 8:00 AM Dressing other (see comments) 09/12/2014 8:00 AM Nutritional Status Wt Readings from Last 1 Encounters: 09/09/14 186 kg (410 lb 0.9 oz) Body mass index is 58.7 kg/(m^2). Labs Lab Results Component Value Date ALBUMIN 2.7* 09/12/2014 ALBUMIN 2.9* 09/11/2014 ALBUMIN 2.9* 09/10/2014 WBC 7.6 09/12/2014 WBC 7.9 09/11/2014 WBC 8.8 09/10/2014 HGB 15.4 09/12/2014 HGB 15.9 09/11/2014 HGB 14.9 09/10/2014 HCT 48.2 09/12/2014 HCT 49.6 09/11/2014 HCT 46.8 09/10/2014 Nutritional Intake Nutrition Assessments Diet/Nutrition Prescription: NPO Fluids: adequate Fluids Requirement: IVF Nutrition Risk Screen (Admission and every 4 days/sig change): large or nonhealing wound, burn or pressure ulcer Nutrition Interventions Nutrition Interventions: refer to dietitian, refer to human resources office assistant/tech Promote Nutrition Balance: dietitian consult Current bed: Bariatric Assessment: Pt with venous ulcer to right lower extremity. Pt with abrasion to anterior penis. Keep legs elevated to decrease edema. Wound Care Recommendations: Consider compression therapy. Mepilex Border dressing sacrum and right lower bennett-change every 3 days and PRN: 1. Cleanse wound with dermal wound cleanser. 2. Apply Mepilex Border dressing Penis: Leave open to air and monitor Mobility: Turn and reposition every 2 hours and document in ED-H. Place a pillow above and below sacral area to off load pressure to the sacrum Offload pressure from heels by placing pillows lengthwise beneath legs while in bed. Offload pressure from heels by adjusting length of foot of bed. Discussed plan with: RN: May Please contact SOFÍA AIKEN RN on pager [phone] or the wound care team at [phone] or pager [phone] with skin and wound care concerns or questions. * Plan of Care - May Linares RN - 09/12/2014 11:01 AM EST Problem: General Plan of Care Goal: Plan of Care Review Outcome: Ongoing (Interventions Implemented as Appropriate) 09/10/14 1819 09/12/14 0800 Plan of Care Review Plan of Care Outcome Status ongoing (interventions implemented as appropriate) -- Progress no change -- Coping/Psychosocial Response Interventions Plan of Care Reviewed with -- spouse;patient OUTCOME EVALUATION NOTE: OUTCOME SUMMARY: Jaime Crouch is a 69 y.o. male extubated at 0943 today to OR; now currently A&Ox4. Continued diuresis, worked with PT today, and spoke with a major case detective while was present today to assess possible discharge needs. Pt transferred to Med Surg unit with telemetry. PLAN MOVING FORWARD: -Encourage mobility -Use IS INDIVIDUALIZED FALL PREVENTION: Assistance: Pt uses call estevez appropriately, requires assistance with activities at this time. Supervision: Pt supervised per protocol based on pt needs. Surveillance: All applicable alarms are set up appropriately and audible. CPG OUTCOME EVALUATION: All goals are continually reevaluated, pt making progress towards goals, transferred out of ICU Goal: Individualization and Mutuality Outcome: Ongoing (Interventions Implemented as Appropriate) 09/10/14 181 Individualization Individualize the Plan of Care: likes to be called Jimbo Goal: Fall Prevention-Safe Patient Handling Outcome: Ongoing (Interventions Implemented as Appropriate) 09/12/14 0809/12/14 1000 Musculoskeletal Interventions Activity/Level of Assistance -- other (see comments) (activity as tollerated, pt moving in bed) Positioning -- HOB up 45 degrees Muscle Strengthening mobility in bed promoted -- Self-Care Promotion bathing assistance provided;dressing assistance provided;feeding assistance provided;hygiene assistance provided;grooming assistance provided;independence encouraged while providing assistance;toileting assistance provided -- Activity and Safety Assistive Device Oxygen -- Safety Interventions Safety Precautions/Fall Reduction -- fall reduction program maintained;environmental modification;lighting adjusted for task/safety;family at bedside Vale Fall Risk History of Falling 0 -- Secondary Diagnosis 15 -- Ambulatory Aids 0 -- Intravenous Therapy/Heparin/Saline Lock 20 -- Gait/Transferring 0 -- Mental Status 15 -- Score 50 -- OTHER Vale Fall Risk High (45 and higher) -- Goal: Infection Control Outcome: Ongoing (Interventions Implemented as Appropriate) 09/12/14 0800 09/12/14 1000 Coping/Psychosocial Response Interventions Counseling calming techniques promoted;emotional support provided;goal setting facilitated;personalstrengths integrated;reassurance provided;relaxation techniques promoted;understanding of situationfacilitated;verbalization of feelings encouraged -- Safety Interventions Isolation Precautions -- standard precautions maintained Infection Prevention blood glucose management;bronchial hygiene promoted;environmental surveillance;hydration promoted;nutrition promoted;rest/sleep promoted;promote handwashing -- Goal: Discharge Needs Assessment Outcome: Ongoing (Interventions Implemented as Appropriate) 09/12/14 1056 Discharge Needs Assessment Concerns to be Addressed discharge planning concerns;other (see comments) (wants to return to work) Concerns Comments Pt stated he does not want to go to a rehab facility post discharge Pt and his were visited by a major case detective this morning to discuss discharge planning and anticipated discharge needs Problem: Skin Integrity Impairment, Risk/Actual (Adult, Obstetrics) Goal: Identify Signs and Symptoms and Related Risk Factors Signs and symptoms and related risk factors are identified upon initiation of Human Response Clinical Practice Guideline (CPG) Outcome: Ongoing (Interventions Implemented as Appropriate) 09/12/14 105 Skin Integrity Impairment, Risk/Actual Personal Related Risk Factors (Skin Integrity Impairment, Risk/Actual) stress Physiological Related Risk Factors (Skin Integrity Impairment, Risk/Actual) edema;nutritional/hydration deficiency;scar tissue;skin disorders Treatment Related Related Risk Factors (Skin Integrity Impairment, Risk/Actual) invasive catheters;medication;other (see comments) (venous ulcers) Signs and Symptoms (Skin Integrity Impairment, Risk/Actual) edema (venous ulcer) Goal: Skin Integrity/Wound Healing Patient will demonstrate the desired outcomes. Outcome: Ongoing (Interventions Implemented as Appropriate) 09/12/14 105 Skin Integrity Impairment, Risk/Actual (Adult, Obstetrics) Skin Integrity/Wound Healing making progress toward outcome Problem: Activity Intolerance (Adult, Obstetrics) Goal: Identify Signs and Symptoms and Related Risk Factors Signs and symptoms and related risk factors are identified upon initiation of Human Response Clinical Practice Guideline (CPG) Outcome: Ongoing (Interventions Implemented as Appropriate) 09/12/14 105 Activity Intolerance Personal Related Risk Factors (Activity Intolerance) deconditioned status;general weakness Physiological Related Risk Factors (Activity Intolerance) obesity Treatment Related Related Risk Factors (Activity Intolerance) bed rest/immobility;diet restrictions;medication side effects Signs and Symptoms (Activity Intolerance) other (see comments) (Pt asked to delay aggressive work with PT) Goal: Activity Tolerance Patient will demonstrate the desired outcomes. Outcome: Ongoing (Interventions Implemented as Appropriate) 09/12/14 105 Activity Intolerance (Adult, Obstetrics) Activity Tolerance making progress toward outcome Goal: Effective Energy Conservation Techniques Patient will demonstrate the desired outcomes. Outcome: Ongoing (Interventions Implemented as Appropriate) 09/12/14 1056 Activity Intolerance (Adult, Obstetrics) Effective Energy Conservation Techniques making progress toward outcome * Plan of Care - Betty Nathan - 09/12/2014 4:40 AM EST Problem: General Plan of Care Goal: Plan of Care Review Outcome: Ongoing (Interventions Implemented as Appropriate) 09/10/14181809/11/141999 Plan of Care Review Plan of Care Outcome Status ongoing (interventions implemented as appropriate) -- Progress no change -- Coping/Psychosocial Response Interventions Plan of Care Reviewed with -- spouse;patient OUTCOME EVALUATION NOTE: OUTCOME SUMMARY: Patient remained intubated and sedated on propofol gtt. Passed SBT with plans to extubate today. Using mechanical lift for turns. VSS. PLAN MOVING FORWARD: INDIVIDUALIZED FALL PREVENTION: Assistance: Mechanical lift for all turns Supervision: Close to nurses station. Surveillance: Alarms activated and audible. CPG OUTCOME EVALUATION: Goal: Individualization and Mutuality Outcome: Ongoing (Interventions Implemented as Appropriate) 09/10/14181809/11/14 1200 Individualization Individualize the Plan of Care: likes to be called Jimbo -- Mutuality/Individual Preferences What anxieties, fears or concerns do you have about your health or care? -- shawnee What questions do you have about your health or care? -- shawnee Goal: Fall Prevention-Safe Patient Handling Outcome: Ongoing (Interventions Implemented as Appropriate) Goal: Infection Control Outcome: Ongoing (Interventions Implemented as Appropriate) 09/11/14 0809/11/14199909/12/14 0400 Coping/Psychosocial Response Interventions Counseling -- calming techniques promoted;reassurance provided -- Safety Interventions Isolation Precautions -- -- standard precautions maintained Infection Prevention bronchial hygiene promoted;environmental surveillance;hydration promoted;nutrition promoted;promote handwashing;rest/sleep promoted -- -- Goal: Discharge Needs Assessment Outcome: Ongoing (Interventions Implemented as Appropriate) 09/11/14 1723 Living Environment Transportation Available car Problem: Mechanical Vent/Discontinue from Mechanical Vent (Adult) Goal: Signs and symptoms of listed potential problems will be absent or manageable (reference (Mechanical Vent/Discontinue from Mechanical Vent (Adult)) CPG) Outcome: Ongoing (Interventions Implemented as Appropriate) 09/11/14 1723 Mechanical Vent/Discontinue from Mechanical Vent Problems Assessed (Mechanical Ventilation/Discontinuation) all Problems Present (Mechanical Ventilation/Discontinuation) nutrition imbalance;situational response;skin breakdown * Plan of Care - Zaira Bates RN - 09/11/2014 5:31 PM EST Problem: General Plan of Care Goal: Plan of Care Review Outcome: Ongoing (Interventions Implemented as Appropriate) 09/10/14181809/11/14 1723 Plan of Care Review Plan of Care Outcome Status ongoing (interventions implemented as appropriate) -- Progress no change -- Coping/Psychosocial Response Interventions Plan of Care Reviewed with -- spouse;patient OUTCOME EVALUATION NOTE: OUTCOME SUMMARY: Pt stable throughout the day. Pt had a CXR this morning, showed improvement. Team decided to diurese patient more before extubation. Pt received Lasix 40mgx2 with good response. at bedside this morning and present for rounds. No new symptoms or changes. PLAN MOVING FORWARD: Re-evaluation for extubation tomorrow INDIVIDUALIZED FALL PREVENTION: Assistance: Full assist Supervision: Q2h vitals, Q30min restraint checks Surveillance: ICU smith monitor, Ventilator, all alarms active and audible CPG OUTCOME EVALUATION: Goal: Individualization and Mutuality Outcome: Ongoing (Interventions Implemented as Appropriate) 09/10/14 18109/11/14 1200 Individualization Individualize the Plan of Care: likes to be called Jimbo -- Mutuality/Individual Preferences What anxieties, fears or concerns do you have about your health or care? -- shawnee What questions do you have about your health or care? -- shawnee Goal: Fall Prevention-Safe Patient Handling Outcome: Ongoing (Interventions Implemented as Appropriate) 09/11/14 0800 09/11/14 1600 Musculoskeletal Interventions Activity/Level of Assistance -- bed rest Positioning -- HOB up 30 degrees Muscle Strengthening activity/mobility promoted -- Self-Care Promotion bathing assistance provided;dressing assistance provided;feeding assistance provided;grooming assistance provided;hygiene assistance provided -- Activity and Safety Assistive Device Oxygen -- Safety Interventions Safety Precautions/Fall Reduction -- environmental modification;fall reduction program maintained;lighting adjusted for task/safety;low bed;room near unit station Vale Fall Risk History of Falling 0 -- Secondary Diagnosis 15 -- Ambulatory Aids 0 -- Intravenous Therapy/Heparin/Saline Lock 20 -- Gait/Transferring 0 -- Mental Status 15 -- Score 50 -- OTHER Vale Fall Risk Medium (25-44) -- Goal: Infection Control Outcome: Ongoing (Interventions Implemented as Appropriate) 09/11/14 0809/11/14 1723 Coping/Psychosocial Response Interventions Counseling reassurance provided -- Safety Interventions Isolation Precautions -- standard precautions maintained Infection Prevention bronchial hygiene promoted;environmental surveillance;hydration promoted;nutrition promoted;promote handwashing;rest/sleep promoted -- Goal: Discharge Needs Assessment Outcome: Ongoing (Interventions Implemented as Appropriate) 09/11/14 172 Living Environment Transportation Available car Problem: Mechanical Vent/Discontinue from Mechanical Vent (Adult) Goal: Signs and symptoms of listed potential problems will be absent or manageable (reference (Mechanical Vent/Discontinue from Mechanical Vent (Adult)) CPG) Outcome: Ongoing (Interventions Implemented as Appropriate) 09/11/14 172 Mechanical Vent/Discontinue from Mechanical Vent Problems Assessed (Mechanical Ventilation/Discontinuation) all Problems Present (Mechanical Ventilation/Discontinuation) nutrition imbalance;situational response;skin breakdown * Plan of Care - Betty Nathan - 09/11/2014 4:58 AM EST Problem: General Plan of Care Goal: Plan of Care Review Outcome: Ongoing (Interventions Implemented as Appropriate) OUTCOME EVALUATION NOTE: OUTCOME SUMMARY: Patient remained intubated and sedated on propofol throughout shift. One 5mg IV dose of metoprolol given for HR >120 with little effect, MD aware. Wound consult in place for new wound possibly related to pressure on penis. Restrained, following commands. Passed SBT. Will continue to monitor. PLAN MOVING FORWARD: INDIVIDUALIZED FALL PREVENTION: Assistance: Supervision: Patient close to nurses station. Surveillance: Alarms activated and audible. CPG OUTCOME EVALUATION: Goal: Individualization and Mutuality Outcome: Ongoing (Interventions Implemented as Appropriate) Goal: Fall Prevention-Safe Patient Handling Outcome: Ongoing (Interventions Implemented as Appropriate) Goal: Infection Control Outcome: Ongoing (Interventions Implemented as Appropriate) 09/10/14 0809/10/14199909/11/14 0400 Coping/Psychosocial Response Interventions Counseling -- calming techniques promoted;relaxation techniques promoted -- Safety Interventions Isolation Precautions -- -- standard precautions maintained Infection Prevention blood glucose management;bronchial hygiene promoted;environmental surveillance;hydration promoted;nutrition promoted;promote handwashing;rest/sleep promoted -- -- Goal: Discharge Needs Assessment Outcome: Ongoing (Interventions Implemented as Appropriate) Problem: Mechanical Vent/Discontinue from Mechanical Vent (Adult) Goal: Signs and symptoms of listed potential problems will be absent or manageable (reference (Mechanical Vent/Discontinue from Mechanical Vent (Adult)) CPG) Outcome: Ongoing (Interventions Implemented as Appropriate) Problem: Fall/Trauma/Injury Risk (Adult, Obstetrics) Goal: Identify Signs and Symptoms and Related Risk Factors Signs and symptoms and related risk factors are identified upon initiation of Human Response Clinical Practice Guideline (CPG) Outcome: Ongoing (Interventions Implemented as Appropriate) Goal: Absence of Trauma/Injury/Falls Patient will demonstrate the desired outcomes. Outcome: Ongoing (Interventions Implemented as Appropriate) * Plan of Care - Sissy Bhatti RN - 09/10/2014 6:23 PM EST Problem: General Plan of Care Goal: Plan of Care Review 09/10/141818 Plan of Care Review Plan of Care Outcome Status ongoing (interventions implemented as appropriate) Progress no change Coping/Psychosocial Response Interventions Plan of Care Reviewed with patient;spouse Jimbo remains intubated and sedated in the ICU, he is on propofol at 30mcg and PS 8/5 @30%. Worked today toward extubation, however morning chest x-ray demonstrted pulmondary edema, which wasaddressed with two doses of Lasix (20/40mg). Lung sounds coarse, spo2 >94%, moderate thin/clear secretions. [id number], BP 90's-130's, afebrile, good pulses. Active bowel sounds, no bowel movement. Goal: Individualization and Mutuality 09/10/141818 Individualization Individualize the Plan of Care: likes to be called Jimbo Goal: Fall Prevention-Safe Patient Handling 09/10/14 0800 09/10/14 1800 Musculoskeletal Interventions Activity/Level of Assistance -- bed rest Positioning -- HOB up 30 degrees Muscle Strengthening activity/mobility promoted;mobility in bed promoted;personal routines for BADL/IADL promoted -- Self-Care Promotion assistance provided to decrease frustration;bathing assistance provided;dressing assistance provided;feeding assistance provided;grooming assistance provided;hygiene assistance provided;toileting assistance provided -- Activity and Safety Assistive Device -- Oxygen Vale Fall Risk History of Falling 0 -- Secondary Diagnosis 15 -- Ambulatory Aids 0 -- Intravenous Therapy/Heparin/Saline Lock 20 -- Gait/Transferring 0 -- Mental Status 0 -- Score 35 -- OTHER Vale Fall Risk Medium (25-44) -- Safety Interventions Safety Precautions/Fall Reduction -- fall reduction program maintained Goal: Infection Control 09/10/14 0800 09/10/14 1800 Coping/Psychosocial Response Interventions Counseling calming techniques promoted;emotional support provided;personal strengths integrated;reassurance provided -- Safety Interventions Isolation Precautions -- standard precautions maintained Infection Prevention blood glucose management;bronchial hygiene promoted;environmental surveillance;hydration promoted;nutrition promoted;promote handwashing;rest/sleep promoted -- Problem: Mechanical Vent/Discontinue from Mechanical Vent (Adult) Goal: Signs and symptoms of listed potential problems will be absent or manageable (reference (Mechanical Vent/Discontinue from Mechanical Vent (Adult)) CPG) Outcome: Ongoing (Interventions Implemented as Appropriate) * Plan of Care - Whitney Ramires RN - 09/10/2014 7:00 AM EST Problem: General Plan of Care Goal: Plan of Care Review Outcome: Ongoing (Interventions Implemented as Appropriate) 09/10/14 0656 Plan of Care Review Plan of Care Outcome Status ongoing (interventions implemented as appropriate) Progress improving Coping/Psychosocial Response Interventions Plan of Care Reviewed with patient;spouse OUTCOME EVALUATION NOTE: OUTCOME SUMMARY: Propofol weaned throughout night, pt was switched to pressure support, following commands appropriately. PLAN MOVING FORWARD: Plan for extubation today INDIVIDUALIZED FALL PREVENTION: Assistance: bedrest Supervision: bed sling/nurse assist Surveillance: icu monitoring CPG OUTCOME EVALUATION: Goal: Individualization and Mutuality Outcome: Ongoing (Interventions Implemented as Appropriate) Goal: Fall Prevention-Safe Patient Handling Outcome: Ongoing (Interventions Implemented as Appropriate) 09/10/14 0600 09/10/14 0656 Musculoskeletal Interventions Activity/Level of Assistance bed rest -- Positioning HOB up 30 degrees -- Muscle Strengthening -- mobility in bed promoted Self-Care Promotion -- hygiene assistance provided Activity and Safety Assistive Device -- Oxygen Safety Interventions Safety Precautions/Fall Reduction lighting adjusted for task/safety -- Goal: Infection Control Outcome: Ongoing (Interventions Implemented as Appropriate) 09/09/141999 Coping/Psychosocial Response Interventions Counseling calming techniques promoted Safety Interventions Isolation Precautions standard precautions maintained Infection Prevention bronchial hygiene promoted;environmental surveillance;hydration promoted;rest/sleep promoted Goal: Discharge Needs Assessment Outcome: Ongoing (Interventions Implemented as Appropriate) Problem: Mechanical Vent/Discontinue from Mechanical Vent (Adult) Intervention: O2 Consumption Minimization 09/10/14655 Cardiac Interventions O2 Consumption Minimization activity assistance provided Intervention: Hemodynamic Stabilization 09/10/14655 Cardiac Interventions Hemodynamic Stabilization antihypertensive medication management Intervention: Airway/Ventilation Management 09/10/14655 Respiratory Interventions Airway/Ventilation Management activity adjusted to patient tolerance Intervention: VAP Prevention 09/10/14655 Respiratory Interventions VAP Prevention all criteria met Intervention: Pressure Reduction Devices 09/10/14655 Skin Interventions Pressure Reduction Devices heel offloading device utilized;specialty bed utilized Intervention: Pressure Reduction Techniques 09/10/14655 Skin Interventions Pressure Reduction Techniques heels elevated off bed;tubing/devices free from under/on patient Intervention: Skin/Mucous Membrane Protection 09/10/14655 Skin Interventions Skin/Mucous Membrane Protection electrode sites changed;incontinence pad utilized;tubing/devices free from under/on patient * Consult Note - Micah Medrano MD - 09/09/2014 6:11 PM EST [facility] Department of Surgery Inpatient Consult Note Consultation Requested by: Nick Broussard MD History of Present Illness: We are seeing Jaime Crouch today at the request of Nick Villafana MD for evaluation and advice about acute cholecystitis. This patient is intubated so the history was provided by Dr. Broussard. This patient has a PMHX complicated by anticoagulation with Coumadin for atrial fibrillation with a history of PEs, morbid obesity and TOM who initially presented to an OSH with a 2 day history of right upper quadrant pain. This was exacerbated by eating and was consistent with biliary colic. The patient's WBC at that time was 16k and he had an elevated total bilirubin. Per report, RUQ ultrasound from the outside hospital was difficult to interpret secondary to the patient's body habitus. He was admitted and placed on Zosyn, although the next day his WBC was 20k and his T bili had continued to rise. The patient's symptoms had abated and so the OSH observed him for one more day and continued to treat him with Zosyn, at this point his WBC came down to 11 buthis T Bili reached a high of 8. Dr. Broussard with the GI team was contacted and the patient was transferred here for ERCP. Dr. Broussard reports a normal common bile duct with no stone and filling of the CBD, cystic duct, and gallbladder. A sphincterotomy was performed. Of note, the patient's intubation for the procedure was extremely difficult and the patient experienced a desaturation to the 60s. Anesthesia has requested the patient remain intubated overnight and extubated in the morning. Past Medical History: Past Medical History Diagnosis Date ??? Kidney stone ??? Hypertension ??? ASCVD (arteriosclerotic cardiovascular disease) 1993 first [facility] 1992, stent to LAD in 2006 ??? Atrial fibrillation chronic anticoagulation ??? Nephrolithiasis hx of nephrostomy tube and posterior approach removal ??? HLD (hyperlipidemia) ??? Chronic venous insufficiency ??? TOM on CPAP Past Surgical History Past Surgical History Procedure Laterality Date ??? Lithotripsy ??? Total hip arthroplasty Bilateral ??? Cystoscopy for BPH ??? Coronary angioplasty with stent placement 2006 LAD ??? Kidney stone surgery Left removal of stones: nephrolithotomy Medications Lisinopril Aspirin Coumadin Allergies No Known Allergies Family History: noncontributory Social History: History Social History ??? Marital Status: Spouse Name: N/A Number of Children: N/A ??? Years of Education: N/A Occupational History ??? Not on file. Social History Main Topics ??? Smoking status: Former Smoker ??? Smokeless tobacco: Never Used ??? Alcohol Use: Not on file ??? Drug Use: Not on file ??? Sexual Activity: Not on file Other Topics Concern ??? Not on file Social History Narrative Review of Systems: As stated above, otherwise negative Physical Exam: Temp: [36.6 ??C (97.9 ??F)-36.7 ??C (98.1 ??F)] Heart Rate: [108-138] Resp: [14-30] BP: (120-174)/(70-138) SpO2: [95 %-100 %] Gen: intubated and sedated CV: tachycardic Pulm: mechanical breath sounds Abd: obese, soft, not rigid, nontender to palpation, no surgical scars Ext:warm and well perfused Data independently reviewed: Recent Results (from the past 24 hour(s)) PROTHROMBIN TIME Result Value Range PT 16.8 (*) 12.5 - 15.5 sec INR 1.3 (*) 0.9 - 1.1 HEMOGRAM Result Value Range WBC 10.8 (*) 4.0 - 10.0 x10(3)/mcL RBC 5.05 4.63 - 6.08 x10(6)/mcL Hemoglobin 15.3 13.7 - 17.5 gm/dL Hematocrit 47.4 40.0 - 51.0 % MCV 93.9 (*) 79.0 - 92.0 fL MCH 30.3 25.6 - 32.2 pg MCHC 32.3 32.0 - 36.5 gm/dL Platelets 162 145 - 370 x10(3)/mcL RDWSD 58.1 (*) 35.0 - 46.0 fL RDWCV 17.2 (*) 10.9 - 14.4 % MPV 9.9 9.0 - 12.0 fL DIFFERENTIAL, AUTOMATED Result Value Range Neutrophils % 88.1 Neutr Abs (ANC) 9.51 (*) 1.50 - 6.30 x10(3)/mcL Lymphocytes % 3.9 Lymphocytes Abs 0.4 (*) 1.0 - 3.6 x10(3)/mcL Monocytes % 6.6 Monocyte Abs 0.7 0.2 - 1.0 x10(3)/mcL Eosinophils % 0.6 Eosinophils Abs 0.1 0.0 - 0.5 x10(3)/mcL Basophils % 0.2 Basophils Abs 0.0 0.0 - 0.2 x10(3)/mcL Immature Gran % 0.60 Do Gran Abs 0.06 (*) 0.00 - 0.05 x10(3)/mcL XR ERCP - reviewed images myself, filling of the cystic duct and gallbladder Impression: 69yoM with history of right upper quadrant pain, leukocytosis, and elevated bilirubin suspicious for acute cholecystitis or choledocholithiasis. Normal ERCP today rules out acute cholecystitis and a non-dilated common bile duct makes our suspicion for choledocholithiasis low. No surgical intervention is indicated. Recommendation: - Pursue Hepatitis serology to rule out alternate cause of transaminitis and bilirubinemia - NO indication for surgical intervention. - If patient has recurrent symptoms of biliary colic can follow up electively with General Surgery clinic General Surgery Attending Addendum: I examined the patient independently from the resident and obtained a history from his as the patient was still intubated. The patient presented with pain and nausea and was found to have gallstones. His pain resolved but his bilirubin continued to climb. ERCP showed normal CBD and filling of cystic duct ruling out acute cholecystitis. He is nontender on examination now. Symptom and labs aremost consistent with a passed CBD stone. Because he has had a sphincterotomy, there is no urgency to perform a cholecystectomy. I gave his a low calorie, low fat diet for him to follow. I will follow up with him in clinic. documented in this encounter Plan of Treatment Pending Results Name Type Priority Associated Diagnoses Date /Time XR ERCP Imaging Routine 09/09/2014 5:2 3 PM EST Scheduled Orders Name Type Priority Associated Diagnoses Orde r Schedule XR ERCP Imaging Routine Once PRN (for Radiant use) for 1 Occurrences starting 09/09/2014 until 09/09/2014 documented as of this encounter Procedures Procedure Name Priority Date/Time Associated Diagnosis Comments HUMAN RESOURCES BENEFITS ADMINISTRATOR SCAN 09/21/2014 12:00 AM EST ECG SCAN 09/21/2014 12:00 AM EST PROTHROMBIN TIME Routine 09/20/2014 2:39 AM EST PHOSPHORUS Routine 09/20/2014 2:39 AM EST MAGNESIUM Routine 09/20/2014 2:39 AM EST PROTHROMBIN TIME Routine 09/19/2014 2:13 AM EST BASIC METABOLIC PANEL Routine 09/19/2014 2:13 AM EST PROTHROMBIN TIME Routine 09/18/2014 2:04 AM EST BASIC METABOLIC PANEL Routine 09/18/2014 2:04 AM EST PROTHROMBIN TIME Routine 09/17/2014 2:45 AM EST COMPREHENSIVE METABOLIC PANEL Routine 09/17/2014 2:45 AM EST NUCLEATED RED BLOOD CELLS Routine 09/16/2014 2:59 AM EST HEMOGRAM Routine 09/16/2014 2:59 AM EST DIFFERENTIAL, AUTOMATED Routine 09/16/2014 2:59 AM EST PROTHROMBIN TIME Routine 09/16/2014 2:59 AM EST CBC (WITH DIFF) Routine 09/16/2014 2:59 AM EST MAGNESIUM Routine 09/16/2014 2:59 AM EST COMPREHENSIVE METABOLIC PANEL Routine 09/16/2014 2:59 AM EST NUCLEATED RED BLOOD CELLS Routine 09/15/2014 2:52 AM EST HEMOGRAM Routine 09/15/2014 2:52 AM EST DIFFERENTIAL, AUTOMATED Routine 09/15/2014 2:52 AM EST PROTHROMBIN TIME Routine 09/15/2014 2:52 AM EST CBC (WITH DIFF) Routine 09/15/2014 2:52 AM EST COMPREHENSIVE METABOLIC PANEL Routine 09/15/2014 2:52 AM EST SCAN, PERIPHERAL BLOOD Routine 5 2:23 AM EST HEMOGRAM Routine 09/14/2014 2:23 AM EST DIFFERENTIAL, AUTOMATED Routine 09/14/2014 2:23 AM EST PROTHROMBIN TIME Routine 09/14/2014 2:23 AM EST CBC (WITH DIFF) Routine 09/14/2014 2:23 AM EST COMPREHENSIVE METABOLIC PANEL Routine 09/14/2014 2:23 AM EST SCAN, PERIPHERAL BLOOD Routine 5 10:48 AM EST HEMOGRAM Routine 09/13/2014 10:48 AM EST DIFFERENTIAL, AUTOMATED Routine 09/13/2014 10:48 AM EST PROTHROMBIN TIME Routine 09/13/2014 10:4 8 AM EST CBC (WITH DIFF) Routine 09/13/2014 10:48 AM EST COMPREHENSIVE METABOLIC PANEL Routine 09/13/2014 10:48 AM EST HEPARIN, LOW MOLECULAR WEIGHT ASSAY Timed 09/12/2014 1:54 PM EST POTASSIUM Routine 09/12/2014 1:54 PM EST EXTUBATE Routine 09/12/2014 9:29 AM EST XR CHEST ONE VIEW Routine 09/12/2014 7:1 9 AM EST HEMOGRAM Routine 09/12/2014 12:33 AM EST DIFFERENTIAL, AUTOMATED Routine 09/12/2014 12:33 AM EST PROTHROMBIN TIME Routine 09/12/2014 12:3 3 AM EST CBC (WITH DIFF) Routine 09/12/2014 12:33 AM EST COMPREHENSIVE METABOLIC PANEL Routine 09/12/2014 12:33 AM EST BASIC METABOLIC PANEL Routine 09/11/2014 4:50 PM EST XR CHEST ONE VIEW STAT 09/11/2014 9:1 2 AM EST HEMOGRAM Routine 09/11/2014 1:52 AM EST DIFFERENTIAL, AUTOMATED Routine 09/11/2014 1:52 AM EST PROTHROMBIN TIME Routine 09/11/2014 1:52 AM EST CBC (WITH DIFF) Routine 09/11/2014 1:52 AM EST COMPREHENSIVE METABOLIC PANEL Routine 09/11/2014 1:52 AM EST POTASSIUM Routine 09/10/2014 2:00 PM EST HEPATITIS C ANTIBODY Routine 09/10/2014 9:30 AM EST HEPATITIS B CORE ANTIBODY, IGM Routine 09/10/2014 9:30 AM EST HEPATITIS B SURFACE ANTIBODY Routine 09/10/2014 9:30 AM EST HEPATITIS B SURFACE ANTIGEN Routine 09/10/2014 9:30 AM EST XR CHEST ONE VIEW STAT 09/10/2014 9:0 5 AM EST PROTHROMBIN TIME Routine 09/10/2014 5:55 AM EST COMPREHENSIVE METABOLIC PANEL Routine 09/10/2014 5:55 AM EST HEMOGRAM Routine 09/10/2014 5:25 AM EST DIFFERENTIAL, AUTOMATED Routine 09/10/2014 5:25 AM EST CBC (WITH DIFF) Routine 09/10/2014 5:25 AM EST BLOOD GAS ARTERIAL POC Routine 5 11:17 PM EST XR ABDOMEN 1 VIEW Routine 09/09/2014 8:3 7 PM EST BLOOD GAS ARTERIAL POC Routine 5 7:59 PM EST XR CHEST ONE VIEW Routine 09/09/2014 7:1 9 PM EST POCT GLUCOSE Routine 09/09/2014 6:28 PM EST HEMOGRAM Routine 09/09/2014 5:35 PM EST DIFFERENTIAL, AUTOMATED Routine 09/09/2014 5:35 PM EST PROTHROMBIN TIME Routine 09/09/2014 5:35 PM EST CBC (WITH DIFF) Routine 09/09/2014 5:35 PM EST LIPASE Routine 09/09/2014 5:35 PM EST COMPREHENSIVE METABOLIC PANEL Routine 09/09/2014 5:35 PM EST XR CHEST ONE VIEW STAT 09/09/2014 4:5 3 PM EST ERCP (WRVU 5.85) 09/09/2014 2:49 PM EST stone documented in this encounter Results * SCAN DOC: HUMAN RESOURCES BENEFITS ADMINISTRATOR (09/21/2014 12:00 AM EST) Anatomical Region Laterality Modality Other Scanning Provider MEDIA MGR SCAN EXT O RDR/RSLT * SCAN DOC: ECG (09/21/2014 12:00 AM EST) Scanning Provider MEDIA MGR SCAN EXT O RDR/RSLT * Prothrombin Time (09/20/2014 2:39 AM EST) Prothrombin Time 14.7 12.5 - 15.5 sec MAXIMO [facility] Comment: [facility] Transfusion Committee Guidelines: INR less than 2.0, PTT less than OR equal to 43.5 seconds, or Fibrinogen greater than or equal to 100 mg/dl indicate adequate procoagulant activity for hemostasis in patients without underlying bleeding disorders. International Normalization Ratio 1.1 0.9 - 1.1 MAXIMO [email or web address] Blood specimen (specimen) 09/20/2014 2:39 AM EST 09/20/2014 3:03 AM EST Narrative Resulting Agency Comment Spec In Lab Espinoza Crawford MD HEMATOLOGY ORDERAB LES Performing Organization Address City/State/[facility] Co de Phone Number [facility] * Phosphorus (09/20/2014 2:39 AM EST) Phosphorus 3.1 2.5 - 4.5 mg/dL [facility] Blood specimen (specimen) 09/20/2014 2:39 AM EST 09/20/2014 3:03 AM EST Narrative Resulting Agency Comment Spec In Lab Karmen Silvestre DO CHEMISTRY ORDERAB LES Performing Organization Address [facility] Co de Phone Number [facility] * Magnesium (09/20/2014 2:39 AM EST) Magnesium 0.85 0.69 - 1.07 mmol/L [facility] Blood specimen (specimen) 09/20/2014 2:39 AM EST 09/20/2014 3:03 AM EST Narrative Resulting Agency Comment Spec In Lab Karmen Silvestre DO CHEMISTRY ORDERAB LES Performing Organization Address [facility] Co de Phone Number [facility] * Prothrombin Time (09/19/2014 2:13 AM EST) Prothrombin Time 13.8 12.5 - 15.5 sec [facility] Comment: [facility] Transfusion Committee Guidelines: INR less than 2.0, PTT less than OR equal to 43.5 seconds, or Fibrinogen greater than or equal to 100 mg/dl indicate adequate procoagulant activity for hemostasis in patients without underlying bleeding disorders. International Normalization Ratio 1.0 0.9 - 1.1 [facility] Blood specimen (specimen) 09/19/2014 2:13 AM EST 09/19/2014 2:40 AM EST Narrative Resulting Agency Comment Spec In Lab Espinoza Crawford MD HEMATOLOGY ORDERAB LES Performing Organization Address [facility] Co de Phone Number [facility] * Basic Metabolic Panel (non-fasting) (09/19/2014 2:13 AM EST) Glucose 105 60 - 199 mg/dL [facility] Comment:Diabetes: >=200 mg/d L plus symptoms Blood Urea Nitrogen 20 10 - 20 mg/dL [facility] Creatinine 0.90 0.80 - 1.50 mg/dL [facility] Comment: Please note that the pediatric reference intervals supplied above were not validated at [facility]. Results from pediatric patients should be interpreted in conjunction to the patient's age, height and muscle mass. Sodium 137 135 - 145 mmol/L [facility] Potassium 4.1 3.5 - 5.0 mmol/L [facility] Comment: Please note: ??Patients with WBC >100,000 may have falsely elevated Potassium levels. ??For accurate Potassium quantification in these patients send serum separator tube (gold top) for subsequent determinations. ??Contact the Clinical Chemistry Laboratory if there are any questions. Chloride 101 98 - 107 mmol/L [facility] Carbon Dioxide 24 22 - 31 mmol/L [facility] Anion Gap 12 5 - 15 mmol/L [facility] Calcium 9.6 8.5 - 10.5 mg/dL [facility] Est [...] the following links into your internet browser. [email or web address] Blood specimen (specimen) 09/19/2014 2:13 AM EST 09/19/2014 2:40 AM EST Narrative Resulting Agency Comment Spec In Lab Karmen Silvestre DO CHEMISTRY ORDERAB LES MAXIMO [facility] * Prothrombin Time (09/18/2014 2:04 AM EST) Prothrombin Time 13.8 12.5 - 15.5 sec [facility] Comment: [facility] Transfusion Committee Guidelines: INR less than 2.0, PTT less than OR equal to 43.5 seconds, or Fibrinogen greater than or equal to 100 mg/dl indicate adequate procoagulant activity for hemostasis in patients without underlying bleeding disorders. International Normalization Ratio 1.0 0.9 - 1.1 [facility] Blood specimen (specimen) 09/18/2014 2:04 AM EST 09/18/2014 2:15 AM EST Narrative Resulting Agency Comment Spec In Lab Espinoza Crawford MD HEMATOLOGY ORDERAB LES [facility] * (ABNORMAL) Basic Metabolic Panel (non-fasting) (09/18/2014 2:04 AM EST) Glucose 105 60 - 199 mg/dL [facility] Comment:Diabetes: >=200 mg/d L plus symptoms Blood Urea Nitrogen 23(H) 10 - 20 mg/dL [facility] Creatinine 0.91 0.80 - 1.50 mg/dL [facility] Comment: Please note that the pediatric reference intervals supplied above were not validated at [facility]. Results from pediatric patients should be interpreted [...] questions. Chloride 102 98 - 107 mmol/L [facility] Carbon Dioxide 26 22 - 31 mmol/L [facility] Anion Gap 13 5 - 15 mmol/L [facility] Calcium 9.5 8.5 - 10.5 mg/dL [facility] Est [...] the following links into your internet browser. [email or web address] Blood specimen (specimen) 09/18/2014 2:04 AM EST 09/18/2014 2:15 AM EST Narrative Resulting Agency Comment Spec In Lab Karmen Silvestre DO CHEMISTRY ORDERAB LES Performing Organization Address [facility] Co de Phone Number [facility] * Prothrombin Time (09/17/2014 2:45 AM EST) Prothrombin Time 13.5 12.5 - 15.5 sec [facility]ER [facility] Comment: [facility] Transfusion Committee Guidelines: INR less than 2.0, PTT less than OR equal to 43.5 seconds, or Fibrinogen greater than or equal to 100 mg/dl indicate adequate procoagulant activity for hemostasis in patients without underlying bleeding disorders. International Normalization Ratio 1.0 0.9 - 1.1 [facility] Blood specimen (specimen) 09/17/2014 2:45 AM EST 09/17/2014 3:17 AM EST Narrative Resulting Agency Comment Spec In Lab Espinoza Crawford MD HEMATOLOGY ORDERAB LES Performing Organization Address [facility] Co de Phone Number [facility] * (ABNORMAL) Comprehensive metabolic panel (non-fasting) (09/17/2014 2:45 AM EST) Glucose 106 60 - 199 mg/dL [facility] MILLENNIUM Comment:Diabetes: >=200 mg/d L plus symptoms Blood Urea Nitrogen 22(H) 10 - 20 mg/dL [facility]ILL[facility] Creatinine 0.91 0.80 - 1.50 mg/dL [facility] Comment: Please note that the pediatric reference intervals supplied above were not validated at [facility]. Results from pediatric patients should be interpreted [...] questions. Chloride 102 98 - 107 mmol/L [facility] Carbon Dioxide 27 22 - 31 mmol/L [facility] Anion Gap 12 5 - 15 mmol/L [facility] Calcium 9.5 8.5 - 10.5 mg/dL [facility] Protein, Total 6.9 6.4 - 8.3 gm/dL [facility] Albumin 3.2 3.2 - 5.2 gm/dL [facility] Aspartate Aminotransferase 33 0 - 39 unit/L [facility] Alanine Aminotransferase 55 0 - 55 unit/L [facility] Alkaline Phosphatase 120 40 - 120 unit/L [facility] Bilirubin, Total 1.3 0.2 - 1.3 mg/dL [facility]ILL[facility] Bilirubin, Direct 0.6(H) 0.0 - 0.3 mg/dL [facility] MILL[facility]NIUM Est [...] the following links into your internet browser. [email or web address] Blood specimen (specimen) 09/17/2014 2:45 AM EST 09/17/2014 3:17 AM EST Narrative Resulting Agency Comment Spec In Lab Espinoza Crawford MD CHEMISTRY ORDERABL ES [facility] * Nucleated Red Blood Cells (09/16/2014 2:59 AM EST) NRBC% auto 0.0 % CERNER MILLENNIUM NRBC Absolute 0.000 0.000 - 0.012 x10(3)/mcL [facility] Blood specimen (specimen) 09/16/2014 2:59 AM EST 09/16/2014 3:04 AM EST Narrative Resulting Agency Comment Spec In Lab Espinoza Crawford MD HEMATOLOGY ORDERAB LES [facility] * (ABNORMAL) Differential, Automated (09/16/2014 2:59 AM EST) Neutrophil % 73.6 % C[facility]ER MILLENNIUM Neutrophil Absolute 6.86(H) 1.50 - 6.30 x10(3)/mc L [facility] MILLENNIUM Lymph % 14.1 % CERNER MILLENNIUM Lymphocytes Abs 1.3 1.0 - 3.6 x10(3)/mc L [facility]ER MILLENNIUM Monocyte % 6.8 % CERNER MILLENNIUM Monocyte Abs 0.6 0.2 - 1.0 x10(3)/mc L CERNER MILLENNIUM Eos % 3.4 % CERNER MILLENNIUM Eosinophils Abs 0.3 0.0 - 0.5 x10(3)/mc L [facility]ER MILLENNIUM Basophil % 0.6 % CERNER MILLENNIUM Baso Absolute 0.1 0.0 - 0.2 x10(3)/mc L [facility] Immature Gran % 1.50 % CERN ER MILLENNIUM Comment: Immature granulocytes(IG's)percentage and absolute count will include metamyelocytes, myelocytes, and promyelocytes. Blood smears from CBCs yielding IG's will be scanned manually for concordance. If this scan disagrees with the automated IG or if promyelocytes are noted, a manual differential will be performed. Immature Gran Absolute 0.14(H) 0.00 - 0.05 x10(3)/mc L [facility] Blood specimen (specimen) 09/16/2014 2:59 AM EST 09/16/2014 3:04 AM EST Narrative Resulting Agency Comment Spec In Lab Espinoza Crawford MD HEMATOLOGY ORDERAB LES CERDENISE BOWENENNIUM * (ABNORMAL) Hemogram (09/16/2014 2:59 AM EST) White Blood Cell 9.3 4.0 - 10.0 x10(3)/mc L [facility]ER MILLENNIUM Red Blood Cell 5.10 4.63 - 6.08 x10(6)/mc L [facility]ER MILLENNIUM Hemoglobin 15.4 13.7 - 17.5 gm/dL [facility]ER MILLENNIUM Hematocrit 47.5 40.0 - 51.0 % CERNER MILLENNIUM Mean Cell Volume 93.1(H) 79.0 - 92.0 fL CERNER MILLENNIUM Mean Cell Hemoglobin 30.2 25.6 - 32.2 pg CERNER MILLENNIUM Mean Cell Hemoglobin Concentration 32.4 32.0 - 36.5 gm/dL CERNER MILLENNIUM Platelet 245 145 - 370 x10(3)/mc L [facility]ER MILLENNIUM RDW Standard Deviation 54.9(H) 35.0 - 46.0 fL C[facility]ER MILLENNIUM RDW coefficient of variation 16.1(H) 10.9 - 14.4 % CERNER MILLENNIUM Mean Platelet Volume 10.0 9.0 - 12.0 fL [facility] Blood specimen (specimen) 09/16/2014 2:59 AM EST 09/16/2014 3:04 AM EST Narrative Resulting Agency Comment Spec In Lab Espinoza Crawford MD HEMATOLOGY ORDERAB LES MAXIMO [facility] * Prothrombin Time (09/16/2014 2:59 AM EST) Prothrombin Time 13.1 12.5 - 15.5 sec CERNER MILLENNIUM Comment: [facility] Transfusion Committee Guidelines: INR less than 2.0, PTT less than OR equal to 43.5 seconds, or Fibrinogen greater than or equal to 100 mg/dl indicate adequate procoagulant activity for hemostasis in patients without underlying bleeding disorders. International Normalization Ratio 0.9 0.9 - 1.1 [facility] Blood specimen (specimen) 09/16/2014 2:59 AM EST 09/16/2014 3:04 AM EST Narrative Resulting Agency Comment Spec In Lab Espinoza Crawford MD HEMATOLOGY ORDERAB LES [facility] * (ABNORMAL) Comprehensive metabolic panel (non-fasting) (09/16/2014 2:59 AM EST) Glucose 118 60 - 199 mg/dL CERNER MILLENNIUM Comment:Diabetes: >=200 mg/d L plus symptoms Blood Urea Nitrogen 25(H) 10 - 20 mg/dL CERNER MILLENNIUM Creatinine 1.02 0.80 - 1.50 mg/dL CERNER MILLENNIUM Comment: Please note that the pediatric reference intervals supplied above were not validated at [facility]. Results from pediatric patients should be interpreted in conjunction to the patient's age, height and muscle mass. Sodium 143 135 - 145 mmol/L CERNER MILLENNIUM Potassium [...] - 31 mmol/L CERNER MILLENNIUM Anion Gap 13 5 - 15 mmol/L [facility] MILLEN[facility] Calcium 9.4 8.5 - 10.5 mg/dL CERNER MILLENNIUM Protein, Total 7.1 6.4 - 8.3 gm/dL CERNER MILLENNIUM Albumin 3.0(L) 3.2 - 5.2 gm/dL [facility]ER MILL[facility] Aspartate Aminotransferase 35 0 - 39 unit/L CERNER MILL[facility] Alanine Aminotransferase 59(H) 0 - 55 unit/L [facility]ILL[facility] Alkaline Phosphatase 131(H) 40 - 120 unit/L CERNER MILLEN[facility]UM Bilirubin, Total 1.4(H) 0.2 - 1.3 mg/dL CERNER MILLENNIUM Bilirubin, Direct 0.6(H) 0.0 - 0.3 mg/dL CERNER MILLENNIUM Est [...] the following links into your internet browser. [email or web address] Blood specimen (specimen) 09/16/2014 2:59 AM EST 09/16/2014 3:04 AM EST Narrative Resulting Agency Comment Spec In Lab Espinoza Crawford MD CHEMISTRY ORDERABL ES Performing Organization Address [facility] de Phone Number CERDENISE BOWENENNIUM * Magnesium (09/16/2014 2:59 AM EST) Magnesium 0.87 0.69 - 1.07 mmol/L CERNER MILLENNIUM Blood specimen (specimen) 09/16/2014 2:59 AM EST 09/16/2014 3:04 AM EST Narrative Resulting Agency Comment Spec In Lab Cynthia Almanza MD CHEMISTRY ORDERABLES Performing Organization Address [facility] Phone Number CERDENISE BOWENENNIUM * Nucleated Red Blood Cells (09/15/2014 2:52 AM EST) NRBC% auto 0.0 % CERNER MILLENNIUM NRBC Absolute 0.000 0.000 - 0.012 x10(3)/mcL CERNER MILLENNIUM Blood specimen (specimen) 09/15/2014 2:52 AM EST 09/15/2014 3:12 AM EST Narrative Resulting Agency Comment Spec In Lab Espinoza Crawford MD HEMATOLOGY ORDERAB LES Performing Organization Address [facility]/ZIP Co de Phone Number MAXIMO ELYIUM * (ABNORMAL) Differential, Automated (09/15/2014 2:52 AM EST) Neutrophil % 70.7 % CERNER MILLENNIUM Neutrophil Absolute 7.26(H) 1.50 - 6.30 x10(3)/mc L CERNER MILLENNIUM Lymph % 14.2 % CERNER MILLENNIUM Lymphocytes Abs 1.5 1.0 - 3.6 x10(3)/mc L CERNER MILLENNIUM Monocyte % 9.8 % CERNER MILLENNIUM Monocyte Abs 1.0 0.2 - 1.0 x10(3)/mc L CERNER MILLENNIUM Eos % 2.8 % CERNER MILLENNIUM Eosinophils Abs 0.3 0.0 - 0.5 x10(3)/mc L CERNER MILLENNIUM Basophil % 0.7 % CERNER MILLENNIUM Baso Absolute 0.1 0.0 - 0.2 x10(3)/mc L CERNER MILLENNIUM Immature Gran % 1.80 % CERN ER MILLENNIUM Comment: Immature granulocytes(IG's)percentage and absolute count will include metamyelocytes, myelocytes, and promyelocytes. Blood smears from CBCs yielding IG's will be scanned manually for concordance. If this scan disagrees with the automated IG or if promyelocytes are noted, a manual differential will be performed. Immature Gran Absolute 0.18(H) 0.00 - 0.05 x10(3)/mc L CERNER MILLENNIUM Blood specimen (specimen) 09/15/2014 2:52 AM EST 09/15/2014 3:12 AM EST Narrative Resulting Agency Comment Spec In Lab Espinoza Crawford MD HEMATOLOGY ORDERAB LES MAXIMO NERI * (ABNORMAL) Hemogram (09/15/2014 2:52 AM EST) White Blood Cell 10.3(H) 4.0 - 10.0 x10(3)/mc L CERNER MILLENNIUM Red Blood Cell 5.22 4.63 - 6.08 x10(6)/mc L CERNER MILLENNIUM Hemoglobin 15.8 13.7 - 17.5 gm/dL CERNER MILLENNIUM Hematocrit 48.7 40.0 - 51.0 % CERNER MILLENNIUM Mean Cell Volume 93.3(H) 79.0 - 92.0 fL CERNER MILLENNIUM Mean Cell Hemoglobin 30.3 25.6 - 32.2 pg CERNER MILLENNIUM Mean Cell Hemoglobin Concentration 32.4 32.0 - 36.5 gm/dL CERNER MILLENNIUM Platelet 212 145 - 370 x10(3)/mc L CERNER MILLENNIUM RDW Standard Deviation 54.7(H) 35.0 - 46.0 fL CERNER MILLENNIUM RDW coefficient of variation 16.0(H) 10.9 - 14.4 % CERNER MILLENNIUM Mean Platelet Volume 10.1 9.0 - 12.0 fL [facility] MILLENNIUM Blood specimen (specimen) 09/15/2014 2:52 AM EST 09/15/2014 3:12 AM EST Narrative Resulting Agency Comment Spec In Lab Espinoza Crawford MD HEMATOLOGY ORDERAB LES Performing Organization Address City/[facility]/ZIP Co de Phone Number [facility] * Prothrombin Time (09/15/2014 2:52 AM EST) Prothrombin Time 13.2 12.5 - 15.5 sec [facility] Comment: [facility] Transfusion Committee Guidelines: INR less than 2.0, PTT less than OR equal to 43.5 seconds, or Fibrinogen greater than or equal to 100 mg/dl indicate adequate procoagulant activity for hemostasis in patients without underlying bleeding disorders. International Normalization Ratio 0.9 0.9 - 1.[address] [facility] Blood specimen (specimen) 09/15/2014 2:52 AM EST 09/15/2014 3:12 AM EST Narrative Resulting Agency Comment Spec In Lab Espinoza Crawford MD HEMATOLOGY ORDERAB LES [facility] * (ABNORMAL) Comprehensive metabolic panel (non-fasting) (09/15/2014 2:52 AM EST) Glucose 108 60 - 199 mg/dL CERNER MILLENNIUM Comment:Diabetes: >=200 mg/d L plus symptoms Blood Urea Nitrogen 24(H) 10 - 20 mg/dL CERNER MILLENNIUM Creatinine 0.99 0.80 - 1.50 mg/dL CERNER MILLENNIUM Comment: Please note that the pediatric reference intervals supplied above were not validated at [facility]. Results from pediatric patients should be interpreted [...] - 31 mmol/L CERNER MILLENNIUM Anion Gap 13 5 - 15 mmol/L CERNER MILLENNIUM Calcium 9.3 8.5 - 10.5 mg/dL CERNER MILLENNIUM Protein, Total 6.9 6.4 - 8.3 gm/dL CERNER MILLENNIUM Albumin 2.8(L) 3.2 - 5.2 gm/dL CERNER MILLENNIUM Aspartate Aminotransferase 36 0 - 39 unit/L CERNER MILLENNIUM Alanine Aminotransferase 67(H) 0 - 55 unit/L CERNER MILLENNIUM Alkaline Phosphatase 133(H) 40 - 120 unit/L CERNER MILLENNIUM Bilirubin, Total 1.5(H) 0.2 - 1.3 mg/dL CERNER MILLENNIUM Bilirubin, Direct 0.7(H) 0.0 - 0.3 mg/dL CERNER MILLENNIUM Est [...] the following links into your internet browser. [email or web address] Blood specimen (specimen) 09/15/2014 2:52 AM EST 09/15/2014 3:12 AM EST Narrative Resulting Agency Comment Spec In Lab Espinoza Crawford MD CHEMISTRY ORDERABL ES CERNER MILLENNIUM * Scan, Peripheral Blood (09/14/2014 2:23 AM EST) Plat estimate Normal CERNER MILLENNIUM RBC Morphology Normal CERNE R MILLENNIUM Atypical Lymph Moderate CERNE R MILLENNIUM Plat, Giant Less than 1 /HPF CERNER MILLENNIUM Blood specimen (specimen) 09/14/2014 2:23 AM EST 09/14/2014 2:38 AM EST Narrative Resulting Agency Comment Spec In Lab Espinoza Crawford MD HEMATOLOGY ORDERAB LES CERNER MILLENNIUM * (ABNORMAL) Differential, Automated (09/14/2014 2:23 AM EST) Neutrophil % 71.5 % CERNER MILLENNIUM Neutrophil Absolute 6.73(H) 1.50 - 6.30 x10(3)/mc L CERNER MILLENNIUM Lymph % 14.8 % CERNER MILLENNIUM Lymphocytes Abs 1.4 1.0 - 3.6 x10(3)/mc L CERNER MILLENNIUM Monocyte % 9.2 % CERNER MILLENNIUM Monocyte Abs 0.9 0.2 - 1.0 x10(3)/mc L CERNER MILLENNIUM Eos % 2.6 % CERNER MILLENNIUM Eosinophils Abs 0.2 0.0 - 0.5 x10(3)/mc L CERNER MILLENNIUM Basophil % 0.6 % CERNER MILLENNIUM Baso Absolute 0.1 0.0 - 0.2 x10(3)/mc L CERNER MILLENNIUM Immature Gran % 1.30 % CERN ER MILLENNIUM Comment: Immature granulocytes(IG's)percentage and absolute count will include metamyelocytes, myelocytes, and promyelocytes. Blood smears from CBCs yielding IG's will be scanned manually for concordance. If this scan disagrees with the automated IG or if promyelocytes are noted, a manual differential will be performed. Immature Gran Absolute 0.12(H) 0.00 - 0.05 x10(3)/mc L CERNER MILLENNIUM Blood specimen (specimen) 09/14/2014 2:23 AM EST 09/14/2014 2:38 AM EST Narrative Resulting Agency Comment Spec In Lab Espinoza Crawford MD HEMATOLOGY ORDERAB LES CERDENISE ELYIUM * (ABNORMAL) Hemogram (09/14/2014 2:23 AM EST) White Blood Cell 9.4 4.0 - 10.0 x10(3)/mc L CERNER MILLENNIUM Red Blood Cell 5.16 4.63 - 6.08 x10(6)/mc L CERNER MILLENNIUM Hemoglobin 15.2 13.7 - 17.5 gm/dL CERNER MILLENNIUM Hematocrit 48.3 40.0 - 51.0 % CERNER MILLENNIUM Mean Cell Volume 93.6(H) 79.0 - 92.0 fL CERNER MILLENNIUM Mean Cell Hemoglobin 29.5 25.6 - 32.2 pg CERNER MILLENNIUM Mean Cell Hemoglobin Concentration 31.5(L) 32.0 - 36.5 gm/dL CERNER MILLENNIUM Platelet 201 145 - 370 x10(3)/mc L CERNER MILLENNIUM RDW Standard Deviation 56.1(H) 35.0 - 46.0 fL CERNER MILLENNIUM RDW coefficient of variation 16.4(H) 10.9 - 14.4 % CERNER MILLENNIUM Mean Platelet Volume 9.9 9.0 - 12.0 fL CERNER MILLENNIUM Blood specimen (specimen) 09/14/2014 2:23 AM EST 09/14/2014 2:38 AM EST Narrative Resulting Agency Comment Spec In Lab Espinoza Crawford MD HEMATOLOGY ORDERAB LES CERDENISE BOWENENNIUM * Prothrombin Time (09/14/2014 2:23 AM EST) Prothrombin Time 13.2 12.5 - 15.5 sec CERNER MILLENNIUM Comment: [facility] Transfusion Committee Guidelines: INR less than 2.0, PTT less than OR equal to 43.5 seconds, or Fibrinogen greater than or equal to 100 mg/dl indicate adequate procoagulant activity for hemostasis in patients without underlying bleeding disorders. International Normalization Ratio 0.9 0.9 - 1.1 CERNER MILLENNIUM Blood specimen (specimen) 09/14/2014 2:23 AM EST 09/14/2014 2:38 AM EST Narrative Resulting Agency Comment Spec In Lab Espinoza Crawford MD HEMATOLOGY ORDERAB LES MAXIMO NERI * (ABNORMAL) Comprehensive metabolic panel (non-fasting) (09/14/2014 2:23 AM EST) Glucose 108 60 - 199 mg/dL CERNER MILLENNIUM Comment:Diabetes: >=200 mg/d L plus symptoms Blood Urea Nitrogen 26(H) 10 - 20 mg/dL CERNER MILLENNIUM Creatinine 1.01 0.80 - 1.50 mg/dL CERNER MILLENNIUM Comment: Please note that the pediatric reference intervals supplied above were not validated at [facility]. Results from pediatric patients should be interpreted in conjunction to the patient's age, height and muscle mass. Sodium 143 135 - 145 mmol/L CERNER MILLENNIUM Potassium 3.7 3.5 - 5.0 mmol/L CERNER MILLENNIUM Comment: Please note: ??Patients with WBC >100,000 may have falsely elevated Potassium levels. ??For accurate Potassium quantification in these patients send serum separator tube (gold top) for subsequent determinations. ??Contact the Clinical Chemistry Laboratory if there are any questions. Chloride 103 98 - 107 mmol/L CERNER MILLENNIUM Carbon Dioxide 28 22 - 31 mmol/L CERNER MILLENNIUM Anion Gap 12 5 - 15 mmol/L CERNER MILLENNIUM Calcium 9.6 8.5 - 10.5 mg/dL CERNER MILLENNIUM Protein, Total 6.7 6.4 - 8.3 gm/dL CERNER MILLENNIUM Albumin 3.1(L) 3.2 - 5.2 gm/dL CERNER MILLENNIUM Aspartate Aminotransferase 34 0 - 39 unit/L CERNER MILLENNIUM Alanine Aminotransferase 81(H) 0 - 55 unit/L CERNER MILLENNIUM Alkaline Phosphatase 140(H) 40 - 120 unit/L CERNER MILLENNIUM Bilirubin, Total 1.7(H) 0.2 - 1.3 mg/dL CERNER MILLENNIUM Bilirubin, [...] the following links into your internet browser. [email or web address] Blood specimen (specimen) 09/14/2014 2:23 AM EST 09/14/2014 2:38 AM EST Narrative Resulting Agency Comment Spec In Lab Espinoza Crawford MD CHEMISTRY ORDERABL ES Performing Organization Address City/[facility]/ZIP Co de Phone Number CERNER MILLENNIUM * Scan, Peripheral Blood (09/13/2014 10:48 AM EST) Plat estimate Normal CERNER MILLENNIUM RBC Morphology Normal CERNE R MILLENNIUM Atypical Lymph Moderate CERNE R MILLENNIUM Plat, Giant Less than 1 /HPF CERNER MILLENNIUM Blood specimen (specimen) 09/13/2014 10:48 AM EST 09/13/2014 10:59 AM EST Narrative Resulting Agency Comment Spec In Lab Espinoza Crawford MD HEMATOLOGY ORDERAB LES CERNER MILLENNIUM * (ABNORMAL) Differential, Automated (09/13/2014 10:48 AM EST) Neutrophil % 72.9 % CERNER MILLENNIUM Neutrophil Absolute 6.61(H) 1.50 - 6.30 x10(3)/mc L CERNER MILLENNIUM Lymph % 13.8 % CERNER MILLENNIUM Lymphocytes Abs 1.2 1.0 - 3.6 x10(3)/mc L CERNER MILLENNIUM Monocyte % 9.9 % CERNER MILLENNIUM Monocyte Abs 0.9 0.2 - 1.0 x10(3)/mc L CERNER MILLENNIUM Eos % 1.8 % CERNER MILLENNIUM Eosinophils Abs 0.2 0.0 - 0.5 x10(3)/mc L CERNER MILLENNIUM Basophil % 0.8 % CERNER MILLENNIUM Baso Absolute 0.1 0.0 - 0.2 x10(3)/mc L CERNER MILLENNIUM Immature Gran % 0.80 % CERN ER MILLENNIUM Comment: Immature granulocytes(IG's)percentage and absolute count will include metamyelocytes, myelocytes, and promyelocytes. Blood smears from CBCs yielding IG's will be scanned manually for concordance. If this scan disagrees with the automated IG or if promyelocytes are noted, a manual differential will be performed. Immature Gran Absolute 0.07(H) 0.00 - 0.05 x10(3)/mc L CERNER MILLENNIUM Blood specimen (specimen) 09/13/2014 10:48 AM EST 09/13/2014 10:59 AM EST Narrative Resulting Agency Comment Spec In Lab Espinoza Crawford MD HEMATOLOGY ORDERAB LES MAXIMO ELYIUM * (ABNORMAL) Hemogram (09/13/2014 10:48 AM EST) White Blood Cell 9.1 4.0 - 10.0 x10(3)/mc L CERNER MILLENNIUM Red Blood Cell 5.22 4.63 - 6.08 x10(6)/mc L CERNER MILLENNIUM Hemoglobin 15.8 13.7 - 17.5 gm/dL CERNER MILLENNIUM Hematocrit 49.0 40.0 - 51.0 % CERNER MILLENNIUM Mean Cell Volume 93.9(H) 79.0 - 92.0 fL CERNER MILLENNIUM Mean Cell Hemoglobin 30.3 25.6 - 32.2 pg CERNER MILLENNIUM Mean Cell Hemoglobin Concentration 32.2 32.0 - 36.5 gm/dL CERNER MILLENNIUM Platelet 198 145 - 370 x10(3)/mc L CERNER MILLENNIUM RDW Standard Deviation 56.8(H) 35.0 - 46.0 fL CERNER MILLENNIUM RDW coefficient of variation 16.5(H) 10.9 - 14.4 % CERNER MILLENNIUM Mean Platelet Volume 9.6 9.0 - 12.0 fL CERNER MILLENNIUM Blood specimen (specimen) 09/13/2014 10:48 AM EST 09/13/2014 10:59 AM EST Narrative Resulting Agency Comment Spec In Lab Espinoza Crawford MD HEMATOLOGY ORDERAB LES Performing Organization Address [facility] Co de Phone Number MAXIMO NERI * Prothrombin Time (09/13/2014 10:48 AM EST) Prothrombin Time 13.0 12.5 - 15.5 sec [facility] Comment: [facility] Transfusion Committee Guidelines: INR less than 2.0, PTT less than OR equal to 43.5 seconds, or Fibrinogen greater than or equal to 100 mg/dl indicate adequate procoagulant activity for hemostasis in patients without underlying bleeding disorders. International Normalization Ratio 0.9 0.9 - 1.1 MAXIMO BOWENENNIUM Blood specimen (specimen) 09/13/2014 10:48 AM EST 09/13/2014 10:59 AM EST Narrative Resulting Agency Comment Spec In Lab Espinoza Crawford MD HEMATOLOGY ORDERAB LES Performing Organization Address City/State/[facility] Co de Phone Number MAXIMO ELYPENDING [facility] * (ABNORMAL) Comprehensive metabolic panel (non-fasting) (09/13/2014 10:48 AM EST) Glucose 133 60 - 199 mg/dL [facility] SOLISIUM Comment:Diabetes: >=200 mg/d L plus symptoms Blood Urea Nitrogen 27(H) 10 - 20 mg/dL CERNER MILLENNIUM Creatinine 1.06 0.80 - 1.50 mg/dL CERNER MILLENNIUM Comment: Please note that the pediatric reference intervals supplied above were not validated at [facility]. Results from pediatric patients should be interpreted [...] - 107 mmol/L CERNER MILLENNIUM Carbon Dioxide 29 22 - 31 mmol/L CERNER MILLENNIUM Anion Gap 11 5 - 15 mmol/L CERNER MILLENNIUM Calcium 9.6 8.5 - 10.5 mg/dL CERNER MILLENNIUM Protein, Total 7.1 6.4 - 8.3 gm/dL CERNER MILLENNIUM Albumin 3.1(L) 3.2 - 5.2 gm/dL CERNER MILLENNIUM Aspartate Aminotransferase 39 0 - 39 unit/L CERNER MILLENNIUM Alanine Aminotransferase 98(H) 0 - 55 unit/L CERNER MILLENNIUM Alkaline Phosphatase 149(H) 40 - 120 unit/L CERNER MILLENNIUM Bilirubin, Total 1.8(H) 0.2 - 1.3 mg/dL CERNER MILLENNIUM Bilirubin, Direct 1.0(H) 0.0 - 0.3 mg/dL CERNER MILLENNIUM Est [...] the following links into your internet browser. [email or web address] Blood specimen (specimen) 09/13/2014 10:48 AM EST 09/13/2014 10:59 AM EST Narrative Resulting Agency Comment Spec In Lab Espinoza Crawford MD CHEMISTRY ORDERABL ES Performing Organization Address [facility] de Phone Number [facility] * Potassium (09/12/2014 1:54 PM EST) Potassium Not Perf 3.5 - 5.0 mmol/L [facility] Comment: Unable to quantitate due to sample hemolysis. ??Sample redraw suggested. Called by: stefany, Read back by: bryant, Date/Time:09/12/14 14:39. Please note: ??Patients with WBC >100,000 may have falsely elevated Potassium levels. ??For accurate Potassium quantification in these patients send serum separator tube (gold top) for subsequent determinations. ??Contact the Clinical Chemistry Laboratory if there are any questions. Blood specimen (specimen) 09/12/2014 1:54 PM EST 09/12/2014 1:58 PM EST Narrative Resulting Agency Comment Spec In Lab Nick Broussard MD CHEMISTRY ORDERABLE S Performing Organization Address [facility] de Phone Number [facility] * Heparin, low molecular weight assay (09/12/2014 1:54 PM EST) Heparin [id number] 0.80 IU/mL [facility] Comment: Guidelines for therapeutic unfractionated and low molecular weight heparin levels for the various formulations available in the [place] are summarized below. Anti-Xa levels should be determined in a plasma sample that has been drawn approximately 3-5 hours after a dose of LMWH and after steady-state has been reached. DRUG ?Dosing Schedule ?Target Peak Steady- State ? Anti-Xa Levels (Units/mL) Unfractionated ?Continuous infusion ?0.3-0.7 heparin Enoxaparin ?Twice daily ?0.6-1.0 Enoxararin ?Once daily ? Unknown,likely 1.0-1.5 Dalteparin ?Once daily ? 1.05 Tinzaparin ?Once daily ? 0.85 Monitoring prophylactic dose LMWH is not routinely performed, thus guidelines for target peak anti-Xa levels are not available. Levels between 0.2 and 0.5 u/ml may be appropriate. Note: Most clinical trials in which low molecular weight heparins were used to treat acute venous thrombolism did not use target anti-Xa levels to guide dosing, hence therapeutic levels have been determined retrospectively and have not been shown to correlate with drug efficacy. Blood specimen (specimen) 09/12/2014 1:54 PM EST 09/12/2014 1:58 PM EST Narrative Resulting Agency Comment Spec In Lab Cynthia Davsi Jr., MD HEMATOLOGY ORDER JESSIE Performing Organization Address City/State/[facility] Co de Phone Number CERNER MILLENNIUM * XR chest PA or AP- 1 view (09/12/2014 7:19 AM EST) Anatomical Region Laterality Modality Chest N/A Radiographic Fior ging 09/12/2014 7:19 AM EST Impressions 09/12/2014 7:32 AM EST IMPRESSION: No significant interval change of previously noted pulmonary edema. Bibasilar opacities in the setting of persistent low lung volumes could represent atelectasis, however underlying pneumonia cannot be excluded. Narrative 09/12/2014 7:32 AM EST EXAMINATION: CHEST ONE VIEW/XPORT CLINICAL HISTORY: fluid overload TECHNIQUE: AP portable chest radiograph COMPARISON: September 11, 2014. FINDINGS: Endotracheal tube is 4.0 cm above the zohreh. Lung volumes remain very low. There is pulmonary edema, unchanged. Patchy bibasilar airspace opacities are also noted that may represent atelectasis, however underlying pneumonia cannot be excluded. No large pleural effusions. No pneumothorax. Cardiomediastinal silhouette is stable. Procedure Note Cecilia Griggs MD - 09/12/2014 EXAMINATION: CHEST ONE VIEW/XPORT CLINICAL HISTORY: fluid overload TECHNIQUE: AP portable chest radiograph COMPARISON: September 11, 2014. FINDINGS: Endotracheal tube is 4.0 cm above the zohreh. Lung volumes remain very low. There is pulmonary edema, unchanged.Patchy bibasilar airspace opacities are also noted that may representatelectasis, however underlying pneumonia cannot be excluded. No large pleuraleffusions. No pneumothorax. Cardiomediastinal silhouette is stable. IMPRESSION IMPRESSION: No significant interval change of previously noted pulmonaryedema. Bibasilar opacities in the setting of persistent low lung volumes could represent atelectasis, however underlying pneumonia cannot be excluded. Cynthia Davis Jr., MD IMG DX ORDERABLE S * (ABNORMAL) Differential, Automated (09/12/2014 12:33 AM EST) Neutrophil % 69.8 % CERNER MILLENNIUM Neutrophil Absolute 5.29 1.50 - 6.30 x10(3)/mc L CERNER MILLENNIUM Lymph % 15.8 % CERNER MILLENNIUM Lymphocytes Abs 1.2 1.0 - 3.6 x10(3)/mc L CERNER MILLENNIUM Monocyte % 11.3 % CERNER MILLENNIUM Monocyte Abs 0.9 0.2 - 1.0 x10(3)/mc L CERNER MILLENNIUM Eos % 1.8 % CERNER MILLENNIUM Eosinophils Abs 0.1 0.0 - 0.5 x10(3)/mc L CERNER MILLENNIUM Basophil % 0.5 % CERNER MILLENNIUM Baso Absolute 0.0 0.0 - 0.2 x10(3)/mc L CERNER MILLENNIUM Immature Gran % 0.80 % CERN ER MILLENNIUM Comment: Immature granulocytes(IG's)percentage and absolute count will include metamyelocytes, myelocytes, and promyelocytes. Blood smears from CBCs yielding IG's will be scanned manually for concordance. If this scan disagrees with the automated IG or if promyelocytes are noted, a manual differential will be performed. Immature Gran Absolute 0.06(H) 0.00 - 0.05 x10(3)/mc L CERNER MILLENNIUM Blood specimen (specimen) 09/12/2014 12:33 AM EST 09/12/2014 12:36 AM EST Narrative Resulting Agency Comment Spec In Lab Nick Broussard MD HEMATOLOGY ORDERABL ES CERNER ADNRÉSENNIUM * (ABNORMAL) Hemogram (09/12/2014 12:33 AM EST) White Blood Cell 7.6 4.0 - 10.0 x10(3)/mc L CERNER MILLENNIUM Red Blood Cell 5.13 4.63 - 6.08 x10(6)/mc L CERNER MILLENNIUM Hemoglobin 15.4 13.7 - 17.5 gm/dL CERNER MILLENNIUM Hematocrit 48.2 40.0 - 51.0 % CERNER MILLENNIUM Mean Cell Volume 94.0(H) 79.0 - 92.0 fL CERNER MILLENNIUM Mean Cell Hemoglobin 30.0 25.6 - 32.2 pg CERNER MILLENNIUM Mean Cell Hemoglobin Concentration 32.0 32.0 - 36.5 gm/dL CERNER MILLENNIUM Platelet 174 145 - 370 x10(3)/mc L CERNER MILLENNIUM RDW Standard Deviation 58.4(H) 35.0 - 46.0 fL CERNER MILLENNIUM RDW coefficient of variation 17.1(H) 10.9 - 14.4 % CERNER MILLENNIUM Mean Platelet Volume 9.6 9.0 - 12.0 fL CERNER MILLENNIUM Blood specimen (specimen) 09/12/2014 12:33 AM EST 09/12/2014 12:36 AM EST Narrative Resulting Agency Comment Spec In Lab Nick Broussard MD HEMATOLOGY ORDERABL ES Performing Organization Address [facility] de Phone Number CERDENISE BOWENENNIUM * Prothrombin Time (09/12/2014 12:33 AM EST) Prothrombin Time 14.2 12.5 - 15.5 sec CERNER MILLENNIUM Comment: [facility] Transfusion Committee Guidelines: INR less than 2.0, PTT less than OR equal to 43.5 seconds, or Fibrinogen greater than or equal to 100 mg/dl indicate adequate procoagulant activity for hemostasis in patients without underlying bleeding disorders. International Normalization Ratio 1.0 0.9 - 1.1 CERNER MILLENNIUM Blood specimen (specimen) 09/12/2014 12:33 AM EST 09/12/2014 12:36 AM EST Narrative Resulting Agency Comment Spec In Lab Nick Broussard MD HEMATOLOGY ORDERABL ES Performing Organization Address [facility] de Phone Number CERDENISE BOWENENNIUM * (ABNORMAL) Comprehensive metabolic panel (non-fasting) (09/12/2014 12:33 AM EST) Glucose 96 60 - 199 mg/dL CERNER MILLENNIUM Comment:Diabetes: >=200 mg/d L plus symptoms Blood Urea Nitrogen 23(H) 10 - 20 mg/dL CERNER MILLENNIUM Creatinine 1.20 0.80 - 1.50 mg/dL CERNER MILLENNIUM Comment: Please note that the pediatric reference intervals supplied above were not validated at [facility]. Results from pediatric patients should be interpreted in conjunction to the patient's age, height and muscle mass. Sodium 143 135 - 145 mmol/L CERNER MILLENNIUM Potassium 3.7 3.5 - 5.0 mmol/L CERNER MILLENNIUM Comment: [...] - 31 mmol/L CERNER MILLENNIUM Anion Gap 12 5 - 15 mmol/L CERNER MILLENNIUM Calcium 9.1 8.5 - 10.5 mg/dL CERNER MILLENNIUM Protein, Total 6.8 6.4 - 8.3 gm/dL CERNER MILLENNIUM Albumin 2.7(L) 3.2 - 5.2 gm/dL CERNER MILLENNIUM Aspartate Aminotransferase 49(H) 0 - 39 unit/L CERNER MILLENNIUM Alanine Aminotransferase 137(H) 0 - 55 unit/L CERNER MILLENNIUM Alkaline Phosphatase 158(H) 40 - 120 unit/L CERNER MILLENNIUM Bilirubin, Total 2.2(H) 0.2 - 1.3 mg/dL CERNER MILLENNIUM Bilirubin, Direct 1.6(H) 0.0 - 0.3 mg/dL CERNER MILLENNIUM Est Glomerular Filtration Rate 60 >=60 CERNER MILLENNIUM Comment: This estimated GFR [...] the following links into your internet browser. [email or web address] Blood specimen (specimen) 09/12/2014 12:33 AM EST 09/12/2014 12:36 AM EST Narrative Resulting Agency Comment Spec In Lab Nick Broussard MD CHEMISTRY ORDERABLE S [facility] * (ABNORMAL) Basic Metabolic Panel (non-fasting) (09/11/2014 4:50 PM EST) Glucose 102 60 - 199 mg/dL CERNER MILLENNIUM Comment:Diabetes: >=200 mg/d L plus symptoms Blood Urea Nitrogen 20 10 - 20 mg/dL CERNER MILLENNIUM Creatinine 1.27 0.80 - 1.50 mg/dL CERNER MILLENNIUM Comment: Please note that the pediatric reference intervals supplied above were not validated at [facility]. Results from pediatric patients should be interpreted in conjunction to the patient's age, height and muscle mass. Sodium 144 135 - 145 mmol/L CERNER MILLENNIUM Potassium 3.9 3.5 - 5.0 mmol/L CERNER MILLENNIUM Comment: Please note: ??Patients with WBC >100,000 may have falsely elevated Potassium levels. ??For accurate Potassium quantification in these patients send serum separator tube (gold top) for subsequent determinations. ??Contact the Clinical Chemistry Laboratory if there are any questions. Chloride 105 98 - 107 mmol/L CERNER MILLENNIUM Carbon Dioxide 28 22 - 31 mmol/L CERNER MILLENNIUM Anion Gap 11 5 - 15 mmol/L CERNER MILLENNIUM Calcium 9.1 8.5 - 10.5 mg/dL CERNER MILLENNIUM Est Glomerular Filtration Rate 57(L) >=60 CERNER MILLENNIUM Comment: This estimated GFR [...] the following links into your internet browser. [email or web address] Blood specimen (specimen) 09/11/2014 4:50 PM EST 09/11/2014 4:56 PM EST Narrative Resulting Agency Comment Spec In Lab Cynthia Davis Jr., MD CHEMISTRY ORDERA [facility] Organization Address City/State/ZIP Co de Phone Number MAXIMO NERI * XR chest PA or AP- 1 view (09/11/2014 9:12 AM EST) Anatomical Region Laterality Modality Chest N/A Radiographic Fior ging 09/11/2014 9:12 AM EST Impressions 09/11/2014 9:53 AM EST IMPRESSION: Low lung volumes, stable or slightly improved pulmonary edema. ET tube is above. Possible left lower lobe partial atelectasis or pneumonia. Narrative 09/11/2014 9:53 AM EST EXAMINATION: CHEST ONE VIEW/XPORT CLINICAL HISTORY: f/u resolution of pulm edema TECHNIQUE: Portable chest x-ray obtained 9:07 AM COMPARISON: None FINDINGS: Lung volumes remain markedly low. Pulmonary edema appears stable or slightly improved. ET tube terminates 49 mm above the zohreh. No other life-support devices are noted. There may be some mild patchy left lower lobe atelectasis or pneumonia superimposed on the pulmonary edema. Procedure Note Flex Padilla MD - 09/11/2014 EXAMINATION: CHEST ONE VIEW/XPORT CLINICAL HISTORY: f/u resolution of pulm edema TECHNIQUE: Portable chest x-ray obtained 9:07 AM COMPARISON: None FINDINGS: Lung volumes remain markedly low. Pulmonary edema appears stableor slightly improved. ET tube terminates 49 mm above the zohreh. No other life-support devices are noted. There may be some mild patchy left lowerlobe atelectasis or pneumonia superimposed on the pulmonary edema. IMPRESSION IMPRESSION: Low lung volumes, stable or slightly improved pulmonary edema. ET tube isabove. Possible left lower lobe partial atelectasis or pneumonia. Cynthia Davis Jr., MD IMG DX ORDERABLE S * (ABNORMAL) Differential, Automated (09/11/2014 1:52 AM EST) Neutrophil % 76.0 % CERNER MILLENNIUM Neutrophil Absolute 6.03 1.50 - 6.30 x10(3)/mc L CERNER MILLENNIUM Lymph % 10.8 % CERNER MILLENNIUM Lymphocytes Abs 0.9(L) 1.0 - 3.6 x10(3)/mc L CERNER MILLENNIUM Monocyte % 10.5 % CERNER MILLENNIUM Monocyte Abs 0.8 0.2 - 1.0 x10(3)/mc L CERNER MILLENNIUM Eos % 1.9 % CERNER MILLENNIUM Eosinophils Abs 0.2 0.0 - 0.5 x10(3)/mc L CERNER MILLENNIUM Basophil % 0.3 % CERNER MILLENNIUM Baso Absolute 0.0 0.0 - 0.2 x10(3)/mc L CERNER MILLENNIUM Immature Gran % 0.50 % CERN ER MILLENNIUM Comment: Immature granulocytes(IG's)percentage and absolute count will include metamyelocytes, myelocytes, and promyelocytes. Blood smears from CBCs yielding IG's will be scanned manually for concordance. If this scan disagrees with the automated IG or if promyelocytes are noted, a manual differential will be performed. Immature Gran Absolute 0.04 0.00 - 0.05 x10(3)/mc L CERNER MILLENNIUM Blood specimen (specimen) 09/11/2014 1:52 AM EST 09/11/2014 1:54 AM EST Narrative Resulting Agency Comment Spec In Lab Nick Broussard MD HEMATOLOGY ORDERABL ES Performing Organization Address [facility] Co de Phone Number CERDENISE BOWENENNIUM * (ABNORMAL) Hemogram (09/11/2014 1:52 AM EST) White Blood Cell 7.9 4.0 - 10.0 x10(3)/mc L CERNER MILLENNIUM Red Blood Cell 5.24 4.63 - 6.08 x10(6)/mc L CERNER MILLENNIUM Hemoglobin 15.9 13.7 - 17.5 gm/dL CERNER MILLENNIUM Hematocrit 49.6 40.0 - 51.0 % CERNER MILLENNIUM Mean Cell Volume 94.7(H) 79.0 - 92.0 fL CERNER MILLENNIUM Mean Cell Hemoglobin 30.3 25.6 - 32.2 pg CERNER MILLENNIUM Mean Cell Hemoglobin Concentration 32.1 32.0 - 36.5 gm/dL CERNER MILLENNIUM Platelet 174 145 - 370 x10(3)/mc L CERNER MILLENNIUM RDW Standard Deviation 59.8(H) 35.0 - 46.0 fL CERNER MILLENNIUM RDW coefficient of variation 17.3(H) 10.9 - 14.4 % CERNER MILLENNIUM Mean Platelet Volume 9.7 9.0 - 12.0 fL CERNER MILLENNIUM Blood specimen (specimen) 09/11/2014 1:52 AM EST 09/11/2014 1:54 AM EST Narrative Resulting Agency Comment Spec In Lab Nikc Broussard MD HEMATOLOGY ORDERABL ES Performing Organization Address [facility]/ZIP Co de Phone Number CERDENISE BOWENENNIUM * (ABNORMAL) Prothrombin Time (09/11/2014 1:52 AM EST) Prothrombin Time 15.8(H) 12.5 - 15.5 sec CERNER MILLENNIUM Comment: [facility] Transfusion Committee Guidelines: INR less than 2.0, PTT less than OR equal to 43.5 seconds, or Fibrinogen greater than or equal to 100 mg/dl indicate adequate procoagulant activity for hemostasis in patients without underlying bleeding disorders. International Normalization Ratio 1.2(H) 0.9 - 1.1 CERNER MILLENNIUM Blood specimen (specimen) 09/11/2014 1:52 AM EST 09/11/2014 1:54 AM EST Narrative Resulting Agency Comment Spec In Lab Nick Broussard MD HEMATOLOGY ORDERABL ES CERNER MILLENNIUM * (ABNORMAL) Comprehensive metabolic panel (non-fasting) (09/11/2014 1:52 AM EST) Glucose 104 60 - 199 mg/dL CERNER MILLENNIUM Comment:Diabetes: >=200 mg/d L plus symptoms Blood Urea Nitrogen 18 10 - 20 mg/dL CERNER MILLENNIUM Creatinine 1.27 0.80 - 1.50 mg/dL CERNER MILLENNIUM Comment: Please note that the pediatric reference intervals supplied above were not validated at [facility]. Results from pediatric patients should be interpreted in conjunction to the patient's age, height and muscle mass. Sodium 146(H) 135 - 145 mmol/L CERNER MILLENNIUM Potassium 4.2 3.5 - 5.0 mmol/L CERNER MILLENNIUM Comment: Please note: ??Patients with WBC >100,000 may have falsely elevated Potassium levels. ??For accurate Potassium quantification in these patients send serum separator tube (gold top) for subsequent determinations. ??Contact the Clinical Chemistry Laboratory if there are any questions. Chloride 106 98 - 107 mmol/L CERNER MILLENNIUM Carbon Dioxide 27 22 - 31 mmol/L CERNER MILLENNIUM Anion Gap 13 5 - 15 mmol/L CERNER MILLENNIUM Calcium 9.4 8.5 - 10.5 mg/dL CERNER MILLENNIUM Protein, Total 7.1 6.4 - 8.3 gm/dL CERNER MILLENNIUM Albumin 2.9(L) 3.2 - 5.2 gm/dL CERNER MILLENNIUM Aspartate Aminotransferase 68(H) 0 - 39 unit/L CERNER MILLENNIUM Alanine Aminotransferase 193(H) 0 - 55 unit/L CERNER MILLENNIUM Alkaline Phosphatase 168(H) 40 - 120 unit/L CERNER MILLENNIUM Bilirubin, Total 3.4(H) 0.2 - 1.3 mg/dL CERNER MILLENNIUM Bilirubin, Direct 2.7(H) 0.0 - 0.3 mg/dL CERNER MILLENNIUM Est Glomerular Filtration Rate 57(L) >=60 CERNER MILLENNIUM Comment: This estimated GFR [...] the following links into your internet browser. [email or web address] Blood specimen (specimen) 09/11/2014 1:52 AM EST 09/11/2014 1:54 AM EST Narrative Resulting Agency Comment Spec In Lab Nick Broussard MD CHEMISTRY ORDERABLE S MAXIMO NERI * Potassium (09/10/2014 2:00 PM EST) Potassium 4.4 3.5 - 5.0 mmol/L CERNER MILLENNIUM Comment: Please note: ??Patients with WBC >100,000 may have falsely elevated Potassium levels. ??For accurate Potassium quantification in these patients send serum separator tube (gold top) for subsequent determinations. ??Contact the Clinical Chemistry Laboratory if there are any questions. Blood specimen (specimen) 09/10/2014 2:00 PM EST 09/10/2014 2:01 PM EST Narrative Resulting Agency Comment Spec In Lab Nick Broussard MD CHEMISTRY ORDERABLE S [facility] * Hepatitis B Core Antibody, IgM (09/10/2014 9:30 AM EST) Hepatitis B Core IgM Negative Negative [facility] Comment: Test Performed by: [place] [address] Opener Tender: Marium Moreno, Ph.D. Blood specimen (specimen) 09/10/2014 9:30 AM EST 09/12/2014 9:18 AM EST Narrative Resulting Agency Comment Spec In Lab Nick Broussard MD CHEMISTRY ORDERABLE S Performing Organization Address [facility] Co de Phone Number [facility] * Hepatitis B Surface Antibody (09/10/2014 9:30 AM EST) Hepatitis B Surface Antibody Negative [facility] Comment: Expected Results: Vaccinated: Positive Unvaccinated: Negative Please note: A positive result for this assay is consistent with a concentration of anti-HBs antibodies >10mIU/ml, which indicates that anti-HBs antibodies have been detected at levels consistent with protective immunity against HBV infection. Blood specimen (specimen) 09/10/2014 9:30 AM EST 09/10/2014 9:44 AM EST Narrative Resulting Agency Comment Spec In Lab Nick Broussard MD CHEMISTRY ORDERABLE S Performing Organization Address [facility] Co de Phone Number [facility] * Hepatitis B Surface Antigen (09/10/2014 9:30 AM EST) Hepatitis B Surface Antigen Negative Negative [facility] Blood specimen (specimen) 09/10/2014 9:30 AM EST 09/10/2014 9:44 AM EST Narrative Resulting Agency Comment Spec In Lab Nick Broussard MD CHEMISTRY ORDERABLE S [facility] * Hepatitis C Antibody (09/10/2014 9:30 AM EST) Hepatitis C Antibody Negative Negative MAXIMO NERI Blood specimen (specimen) 09/10/2014 9:30 AM EST 09/10/2014 9:44 AM EST Narrative Resulting Agency Comment Spec In Lab Nick Bruossard MD CHEMISTRY ORDERABLE S MAXIMO NERI * XR chest PA or AP- 1 view (09/10/2014 9:05 AM EST) Anatomical Region Laterality Modality Chest N/A Radiographic Fior ging 09/10/2014 9:05 AM EST Impressions 09/10/2014 9:14 AM EST IMPRESSION: Pulmonary edema Narrative 09/10/2014 9:14 AM EST EXAMINATION: CHEST ONE VIEW/XPORT CLINICAL HISTORY: obese man who was intubated yesertday for ERCP. ??Looking to see if evidence of pulmonary edema (clinical picture has improved) TECHNIQUE: AP portable chest COMPARISON: 09/09/2014 FINDINGS: As seen on the previous study the patient is intubated. The cardiac silhouette is large and there is airspace disease and interstitial disease distributed throughout the lungs bilaterally. The appearance is consistent with pulmonary edema. The lungs appear to be slightly more aerated on the current study but this is largely due to differences in technique and positioning. Overall the appearance is essentially unchanged. Procedure Note Frederick Peres MD - 09/10/2014 EXAMINATION: CHEST ONE VIEW/XPORT CLINICAL HISTORY: obese man who was intubated yesertday for ERCP. Lookingto see if evidence of pulmonary edema (clinical picture has improved) TECHNIQUE: AP portable chest COMPARISON: 09/09/2014 FINDINGS: As seen on the previous study the patient is intubated. Thecardiac silhouette is large and there is airspace disease and interstitialdisease distributed throughout the lungs bilaterally. The appearance is consistentwith pulmonary edema. The lungs appear to be slightly more aerated on thecurrent study but this is largely due to differences in technique andpositioning. Overall the appearance is essentially unchanged. IMPRESSION IMPRESSION: Pulmonary edema Nick Broussard MD IMG DX ORDERABLES * (ABNORMAL) Prothrombin Time (09/10/2014 5:55 AM EST) Prothrombin Time 15.5 12.5 - 15.5 sec CERNER MILLENNIUM Comment: [facility] Transfusion Committee Guidelines: INR less than 2.0, PTT less than OR equal to 43.5 seconds, or Fibrinogen greater than or equal to 100 mg/dl indicate adequate procoagulant activity for hemostasis in patients without underlying bleeding disorders. International Normalization Ratio 1.2(H) 0.9 - 1.1 CERNER MILLENNIUM Blood specimen (specimen) 09/10/2014 5:55 AM EST 09/10/2014 6:05 AM EST Narrative Resulting Agency Comment Spec In Lab Nick Broussard MD HEMATOLOGY ORDERABL ES CERNER MILLENNIUM * (ABNORMAL) Comprehensive metabolic panel (non-fasting) (09/10/2014 5:55 AM EST) Glucose 122 60 - 199 mg/dL CERNER MILLENNIUM Comment:Diabetes: >=200 mg/d L plus symptoms Blood Urea Nitrogen 17 10 - 20 mg/dL CERNER MILLENNIUM Creatinine 1.23 0.80 - 1.50 mg/dL CERNER MILLENNIUM Comment: Please note that the pediatric reference intervals supplied above were not validated at [facility]. Results from pediatric patients should be interpreted in conjunction to the patient's age, height and muscle mass. Sodium 143 135 - 145 mmol/L CERNER MILLENNIUM Potassium 3.7 3.5 - 5.0 mmol/L CERNER MILLENNIUM Comment: Please note: ??Patients with WBC >100,000 may have falsely elevated Potassium levels. ??For accurate Potassium quantification in these patients send serum separator tube (gold top) for subsequent determinations. ??Contact the Clinical Chemistry Laboratory if there are any questions. Chloride 107 98 - 107 mmol/L CERNER MILLENNIUM Carbon Dioxide 25 22 - 31 mmol/L CERNER MILLENNIUM Anion Gap 11 5 - 15 mmol/L CERNER MILLENNIUM Calcium 9.1 8.5 - 10.5 mg/dL CERNER MILLENNIUM Protein, Total 6.0(L) 6.4 - 8.3 gm/dL CERNER MILLENNIUM Albumin 2.9(L) 3.2 - 5.2 gm/dL CERNER MILLENNIUM Aspartate Aminotransferase 79(H) 0 - 39 unit/L CERNER MILLENNIUM Alanine Aminotransferase 215(H) 0 - 55 unit/L CERNER MILLENNIUM Alkaline Phosphatase 142(H) 40 - 120 unit/L CERNER MILLENNIUM Bilirubin, Total 4.3(H) 0.2 - 1.3 mg/dL CERNER MILLENNIUM Bilirubin, Direct 3.7(H) 0.0 - 0.3 mg/dL CERNER MILLENNIUM Est Glomerular Filtration Rate 59(L) >=60 CERNER MILLENNIUM Comment: This estimated GFR [...] the following links into your internet browser. [email or web address] Blood specimen (specimen) 09/10/2014 5:55 AM EST 09/10/2014 6:05 AM EST Narrative Resulting Agency Comment Spec In Lab Nick Broussard MD CHEMISTRY ORDERABLE S MAXIMO ELYIUM * (ABNORMAL) Differential, Automated (09/10/2014 5:25 AM EST) Neutrophil % 81.3 % CERNER MILLENNIUM Neutrophil Absolute 7.17(H) 1.50 - 6.30 x10(3)/mc L CERNER MILLENNIUM Lymph % 7.4 % CERNER MILLENNIUM Lymphocytes Abs 0.6(L) 1.0 - 3.6 x10(3)/mc L CERNER MILLENNIUM Monocyte % 9.4 % CERNER MILLENNIUM Monocyte Abs 0.8 0.2 - 1.0 x10(3)/mc L CERNER MILLENNIUM Eos % 1.4 % CERNER MILLENNIUM Eosinophils Abs 0.1 0.0 - 0.5 x10(3)/mc L CERNER MILLENNIUM Basophil % 0.2 % CERNER MILLENNIUM Baso Absolute 0.0 0.0 - 0.2 x10(3)/mc L CERNER MILLENNIUM Immature Gran % 0.30 % CERN ER MILLENNIUM Comment: Immature granulocytes(IG's)percentage and absolute count will include metamyelocytes, myelocytes, and promyelocytes. Blood smears from CBCs yielding IG's will be scanned manually for concordance. If this scan disagrees with the automated IG or if promyelocytes are noted, a manual differential will be performed. Immature Gran Absolute 0.03 0.00 - 0.05 x10(3)/mc L CERNER MILLENNIUM Blood specimen (specimen) 09/10/2014 5:25 AM EST 09/10/2014 5:45 AM EST Narrative Resulting Agency Comment Spec In Lab Nick Broussard MD HEMATOLOGY ORDERABL ES CERNER MILLENNIUM * (ABNORMAL) Hemogram (09/10/2014 5:25 AM EST) White Blood Cell 8.8 4.0 - 10.0 x10(3)/mc L CERNER MILLENNIUM Red Blood Cell 4.92 4.63 - 6.08 x10(6)/mc L CERNER MILLENNIUM Hemoglobin 14.9 13.7 - 17.5 gm/dL CERNER MILLENNIUM Hematocrit 46.8 40.0 - 51.0 % CERNER MILLENNIUM Mean Cell Volume 95.1(H) 79.0 - 92.0 fL CERNER MILLENNIUM Mean Cell Hemoglobin 30.3 25.6 - 32.2 pg CERNER MILLENNIUM Mean Cell Hemoglobin Concentration 31.8(L) 32.0 - 36.5 gm/dL CERNER MILLENNIUM Platelet 175 145 - 370 x10(3)/mc L CERNER MILLENNIUM RDW Standard Deviation 59.8(H) 35.0 - 46.0 fL CERNER MILLENNIUM RDW coefficient of variation 17.4(H) 10.9 - 14.4 % CERNER MILLENNIUM Mean Platelet Volume 10.4 9.0 - 12.0 fL CERNER MILLENNIUM Blood specimen (specimen) 09/10/2014 5:25 AM EST 09/10/2014 5:45 AM EST Narrative Resulting Agency Comment Spec In Lab Nick Broussard MD HEMATOLOGY ORDERABL ES CERNER MILLENNIUM * (ABNORMAL) BLOOD GAS 2 ARTERIAL (09/09/2014 11:17 PM EST) pH, Arterial 7.38 7.35 - 7.45 CERNER MILLENNIUM PCO2, Arterial 43 35 - 45 mmHg CERNER MILLENNIUM PO2, Arterial 140(H) 85 - 104 mmHg CERNER MILLENNIUM Bicarbonate, Arterial 24.8 20.0 - 26.0 mmol/L CERNER MILLENNIUM Base Excess, Arterial -0.3 -3.0 - 3.0 mmol/L CERNER MILLENNIUM Hgb Blood Gas 14.4 13.7 - 17.5 gm/dL CERNER MILLENNIUM Oxyhemoglobin, Arterial 96.6 94.0 - 97.0 % CERNER MILLENNIUM Carboxyhemoglob in, Arterial 1.5 % CERNER MILLENNIUM Comment: Nonsmokers: 0.5-1.5% COHB Smokers: Variable, but usually less than 10% Toxic: 20-30% COHB Lethal: Greater than 60% COHB Methemoglobin, Arterial 0.3 <=1.5 % CERNER MILLENNIUM Na Whole Blood 142 135 - 145 mmol/L CERNER MILLENNIUM K Whole Blood 3.7 3.5 - 5.0 mmol/L CERNER MILLENNIUM Comment: Please note: Patients with WBC >100,000 may have falsely elevated Potassium levels. Contact the Clinical Chemistry Laboratory if there are any questions. ICa Whole Blood 1.22 1.15 - 1.33 mmol/L CERNER MILLENNIUM Comment: Note: ??Total bilirubin higher than 20 mg/dL may lead to falsely low ionized calcium. CL Whole Blood 107 98 - 107 mmol/L CERNER MILLENNIUM Gluc Whole Bld 107 60 - 199 mg/dL CERNER MILLENNIUM Comment:Diabetes: >=200 mg/d L plus symptoms. Lactate WB 1.2 0.5 - 2.2 mmol/L CERNER MILLENNIUM FIO2 Art 40 % CERNER MILLENNIUM PF Ratio Art 350 CERNER MILLENNIUM Blood specimen (specimen) 09/09/2014 11:17 PM EST 09/09/2014 11:17 PM EST Nick Broussard MD POINT OF CARE TEST ORDERABLES MAXIMO ELYIUM * XR abdomen 1 view (09/09/2014 8:37 PM EST) Anatomical Region Laterality Modality Abdomen N/A Radiographic Fior ging 09/09/2014 8:37 PM EST Narrative 09/09/2014 8:55 PM EST EXAMINATION: ABDOMEN SINGLE VIEW/XPORT CLINICAL HISTORY: ogt placement TECHNIQUE: Portable AP supine radiograph of the upper abdomen on 09/09/2014 at approximately 2030 hours. COMPARISON: None FINDINGS: Visualization limited by body habitus. Very faint curvilinear opacity in the left upper abdomen suggestive of the enteric tube, with tip position suggestive of fundus or. Proximal body of stomach. Procedure Note Lizbet Bunn MD - 09/09/2014 EXAMINATION: ABDOMEN SINGLE VIEW/XPORT CLINICAL HISTORY: ogt placement TECHNIQUE: Portable AP supine radiograph of the upper abdomen on 09/09/2014t approximately 2030 hours. COMPARISON: None FINDINGS: Visualization limited by body habitus. Very faint curvilinearopacity in the left upper abdomen suggestive of the enteric tube, with tipposition suggestive of fundus or. Proximal body of stomach. Nick Broussard MD IMG DX ORDERABLES * (ABNORMAL) BLOOD GAS 2 ARTERIAL (09/09/2014 7:59 PM EST) pH, Arterial 7.36 7.35 - 7.45 CERNER MILLENNIUM PCO2, Arterial 42 35 - 45 mmHg CERNER MILLENNIUM PO2, Arterial 123(H) 85 - 104 mmHg CERNER MILLENNIUM Bicarbonate, Arterial 23.2 20.0 - 26.0 mmol/L CERNER MILLENNIUM Base Excess, Arterial -2.2 -3.0 - 3.0 mmol/L CERNER MILLENNIUM Hgb Blood Gas 15.0 13.7 - 17.5 gm/dL CERNER MILLENNIUM Oxyhemoglobin, Arterial 96.4 94.0 - 97.0 % CERNER MILLENNIUM Carboxyhemoglob in, Arterial 1.5 % CERNER MILLENNIUM Comment: Nonsmokers: 0.5-1.5% COHB Smokers: Variable, but usually less than 10% Toxic: 20-30% COHB Lethal: Greater than 60% COHB Methemoglobin, Arterial 0.3 <=1.5 % CERNER MILLENNIUM Na Whole Blood 142 135 - 145 mmol/L CERNER MILLENNIUM K Whole Blood 3.8 3.5 - 5.0 mmol/L CERNER MILLENNIUM Comment: Please note: Patients with WBC >100,000 may have falsely elevated Potassium levels. Contact the Clinical Chemistry Laboratory if there are any questions. ICa Whole Blood 1.22 1.15 - 1.33 mmol/L CERNER MILLENNIUM Comment: Note: ??Total bilirubin higher than 20 mg/dL may lead to falsely low ionized calcium. CL Whole Blood 107 98 - 107 mmol/L CERNER MILLENNIUM Gluc Whole Bld 123 60 - 199 mg/dL CERNER MILLENNIUM Comment:Diabetes: >=200 mg/d L plus symptoms. Lactate WB 1.3 0.5 - 2.2 mmol/L CERNER MILLENNIUM FIO2 Art 40 % CERNER MILLENNIUM PF Ratio Art 308 CERNER MILLENNIUM Blood specimen (specimen) 09/09/2014 7:59 PM EST 09/09/2014 7:59 PM EST Nick Broussard MD POINT OF CARE TEST [facility]LES [facility] * XR chest PA or AP- 1 view (09/09/2014 7:19 PM EST) Anatomical Region Laterality Modality Chest N/A Radiographic Fior ging 09/09/2014 7:19 PM EST Impressions 09/09/2014 7:32 PM EST IMPRESSION: There has been no significant interval change. Satisfactory position of endotracheal tube. Unchanged pulmonary vascular congestion and possible pulmonary edema. Narrative 09/09/2014 7:32 PM EST EXAMINATION: CHEST ONE VIEW/XPORT, 09/09/2014 CLINICAL HISTORY: ET tube placement TECHNIQUE: Portable AP 14 degrees semiupright chest radiograph, 09/09/2014 at 1915 hours. COMPARISON: Portable AP semiupright chest radiograph from earlier same day, 09/09/2014 at 1650 hours. FINDINGS: Endotracheal tube remains in satisfactory position, terminating approximately 4 cm above the zohreh. Low lung volumes again noted with stable cardiomediastinal silhouette. Persistent unchanged prominent and indistinct pulmonary vascular markings and suggestion of mild bilateral perihilar airspace opacity. Possible trace left pleural effusion, unchanged. No pneumothorax identified within the limitations of this nearly recumbent radiograph. Procedure Note Jane Angel MD - 09/09/2014 EXAMINATION: CHEST ONE VIEW/XPORT, 09/09/2014 CLINICAL HISTORY: ET tube placement TECHNIQUE: Portable AP 14 degrees semiupright chest radiograph, 09/09/2014t 1915 hours. COMPARISON: Portable AP semiupright chest radiograph from earlier sameday, 09/09/2014 at 1650 hours. FINDINGS: Endotracheal tube remains in satisfactory position,terminating approximately 4 cm above the zohreh. Low lung volumes again noted withstable cardiomediastinal silhouette. Persistent unchanged prominent andindistinct pulmonary vascular markings and suggestion of mild bilateral perihilarairspace opacity. Possible trace left pleural effusion, unchanged. Nopneumothorax identified within the limitations of this nearly recumbent radiograph. IMPRESSION IMPRESSION: There has been no significant interval change. Satisfactoryposition of endotracheal tube. Unchanged pulmonary vascular congestion andpossible pulmonary edema. Nick Broussard MD IMG DX ORDERABLES * POCT Glucose (09/09/2014 6:28 PM EST) [facility] Glucose, POC 112 60 - 199 mg/dL [facility] Comment: Supplemental ranges: <140 mg/dL before meals <180 mg/dL all other times of the day Blood specimen (specimen) 09/09/2014 6:28 PM EST 09/09/2014 6:28 PM EST Nick Broussard MD POINT OF CARE TEST ORDERABLES MAXIMO BOWENENNIUM * Lipase (09/09/2014 5:35 PM EST) Lipase 36 0 - 60 unit/L CERNER MILLENNIUM Blood specimen (specimen) Venous Draw / Unknown 09/09/2014 5:35 PM EST 09/09/2014 5:57 PM EST Narrative Resulting Agency Comment Spec In Lab Nick Broussard MD CHEMISTRY ORDERABLE S MAXIMO ELYIUM * (ABNORMAL) Differential, Automated (09/09/2014 5:35 PM EST) Neutrophil % 88.1 % CERNER MILLENNIUM Neutrophil Absolute 9.51(H) 1.50 - 6.30 x10(3)/mc L CERNER MILLENNIUM Lymph % 3.9 % CERNER MILLENNIUM Lymphocytes Abs 0.4(L) 1.0 - 3.6 x10(3)/mc L CERNER MILLENNIUM Monocyte % 6.6 % CERNER MILLENNIUM Monocyte Abs 0.7 0.2 - 1.0 x10(3)/mc L CERNER MILLENNIUM Eos % 0.6 % CERNER MILLENNIUM Eosinophils Abs 0.1 0.0 - 0.5 x10(3)/mc L CERNER MILLENNIUM Basophil % 0.2 % CERNER MILLENNIUM Baso Absolute 0.0 0.0 - 0.2 x10(3)/mc L CERNER MILLENNIUM Immature Gran % 0.60 % CERN ER MILLENNIUM Comment: Immature granulocytes(IG's)percentage and absolute count will include metamyelocytes, myelocytes, and promyelocytes. Blood smears from CBCs yielding IG's will be scanned manually for concordance. If this scan disagrees with the automated IG or if promyelocytes are noted, a manual differential will be performed. Immature Gran Absolute 0.06(H) 0.00 - 0.05 x10(3)/mc L CERNER MILLENNIUM Blood specimen (specimen) 09/09/2014 5:35 PM EST 09/09/2014 5:56 PM EST Narrative Resulting Agency Comment Spec In Lab Nick Broussard MD HEMATOLOGY ORDERABL ES Performing Organization Address [facility] de Phone Number CERDENISE BOWENENNIUM * (ABNORMAL) Hemogram (09/09/2014 5:35 PM EST) White Blood Cell 10.8(H) 4.0 - 10.0 x10(3)/mc L CERNER MILLENNIUM Red Blood Cell 5.05 4.63 - 6.08 x10(6)/mc L CERNER MILLENNIUM Hemoglobin 15.3 13.7 - 17.5 gm/dL CERNER MILLENNIUM Hematocrit 47.4 40.0 - 51.0 % CERNER MILLENNIUM Mean Cell Volume 93.9(H) 79.0 - 92.0 fL CERNER MILLENNIUM Mean Cell Hemoglobin 30.3 25.6 - 32.2 pg CERNER MILLENNIUM Mean Cell Hemoglobin Concentration 32.3 32.0 - 36.5 gm/dL CERNER MILLENNIUM Platelet 162 145 - 370 x10(3)/mc L CERNER MILLENNIUM RDW Standard Deviation 58.1(H) 35.0 - 46.0 fL CERNER MILLENNIUM RDW coefficient of variation 17.2(H) 10.9 - 14.4 % CERNER MILLENNIUM Mean Platelet Volume 9.9 9.0 - 12.0 fL CERNER MILLENNIUM Blood specimen (specimen) 09/09/2014 5:35 PM EST 09/09/2014 5:56 PM EST Narrative Resulting Agency Comment Spec In Lab Nick Broussard MD HEMATOLOGY ORDERABL ES Performing Organization Address [facility] Co de Phone Number MAXIMO ELYIUM * (ABNORMAL) Prothrombin Time (09/09/2014 5:35 PM EST) Prothrombin Time 16.8(H) 12.5 - 15.5 sec CERNER MILLENNIUM Comment: [facility] Transfusion Committee Guidelines: INR less than 2.0, PTT less than OR equal to 43.5 seconds, or Fibrinogen greater than or equal to 100 mg/dl indicate adequate procoagulant activity for hemostasis in patients without underlying bleeding disorders. International Normalization Ratio 1.3(H) 0.9 - 1.1 CERNER MILLENNIUM Blood specimen (specimen) 09/09/2014 5:35 PM EST 09/09/2014 5:56 PM EST Narrative Resulting Agency Comment Spec In Lab Nick Broussard MD HEMATOLOGY ORDERABL ES CERNER MILLENNIUM * (ABNORMAL) Comprehensive metabolic panel (non-fasting) (09/09/2014 5:35 PM EST) Glucose 130 60 - 199 mg/dL CERNER MILLENNIUM Comment:Diabetes: >=200 mg/d L plus symptoms Blood Urea Nitrogen 17 10 - 20 mg/dL CERNER MILLENNIUM Creatinine 1.33 0.80 - 1.50 mg/dL CERNER MILLENNIUM Comment: Please note that the pediatric reference intervals supplied above were not validated at [facility]. Results from pediatric patients should be interpreted [...] questions. Chloride 106 98 - 107 mmol/L CERNER MILLENNIUM Carbon Dioxide 23 22 - 31 mmol/L CERNER MILLENNIUM Anion Gap 13 5 - 15 mmol/L CERNER MILLENNIUM Calcium 9.3 8.5 - 10.5 mg/dL CERNER MILLENNIUM Protein, Total 6.3(L) 6.4 - 8.3 gm/dL CERNER MILLENNIUM Albumin 3.0(L) 3.2 - 5.2 gm/dL CERNER MILLENNIUM Aspartate Aminotransferase 110(H) 0 - 39 unit/L CERNER MILLENNIUM Alanine Aminotransferase 265(H) 0 - 55 unit/L CERNER MILLENNIUM Alkaline Phosphatase 147(H) 40 - 120 unit/L CERNER MILLENNIUM Bilirubin, Total 6.1(H) 0.2 - 1.3 mg/dL CERNER MILLENNIUM Bilirubin, Direct 5.5(H) 0.0 - 0.3 mg/dL CERNER MILLENNIUM Est Glomerular Filtration Rate 54(L) >=60 CERNER MILLENNIUM Comment: This estimated GFR [...] the following links into your internet browser. [email or web address] Blood specimen (specimen) 09/09/2014 5:35 PM EST 09/09/2014 5:56 PM EST Narrative Resulting Agency Comment Spec In Lab Nick Broussard MD CHEMISTRY ORDERABLE S MAXIMO ELYCodingpeople * XR chest PA or AP- 1 view (09/09/2014 4:53 PM EST) Anatomical Region Laterality Modality Chest N/A Radiographic Fior ging 09/09/2014 4:53 PM EST Impressions 09/09/2014 5:12 PM EST IMPRESSION: Satisfactory endotracheal tube position. Pulmonary vascular congestion. Equivocal edema. Narrative 09/09/2014 5:12 PM EST EXAMINATION: CHEST ONE VIEW/PCORE CLINICAL HISTORY: post op intubation TECHNIQUE: Portable AP chest radiograph on ??09/09/2014 at 1650 hours. COMPARISON: None. FINDINGS: Endotracheal tube 4 cm above the zohreh. Low lung volumes, consistent with shallow inflation. Pulmonary vascular markings appear prominent and indistinct, consistent with congestion. Question mild perihilar airspace opacity, thus equivocal mild edema. No definite pleural effusion. Mild cardiomegal. Procedure Note Lizbet Bunn MD - 09/09/2014 EXAMINATION: CHEST ONE VIEW/PCORE CLINICAL HISTORY: post op intubation TECHNIQUE: Portable AP chest radiograph on 09/09/2014 at 1650 hours. COMPARISON: None. FINDINGS: Endotracheal tube 4 cm above the zohreh. Low lung volumes,consistent with shallow inflation. Pulmonary vascular markings appear prominent and indistinct, consistent with congestion. Question mild perihilar airspace opacity, thus equivocal mild edema. No definite pleural effusion. Mild cardiomegal. IMPRESSION IMPRESSION: Satisfactory endotracheal tube position. Pulmonary vascular congestion. Equivocal edema. Pippa Mendoza MD IMG DX ORDERABLES documented in this encounter Visit Diagnoses Diagnosis Suspected cholecystitis vs cholangitis- Primary Cholecystitis, unspecified Calculus of bile duct with acute cholecystitis without obstruction Calculus of bile duct with acute cholecystitis without mention of obstruction Atrial fibrillation, unspecified Suspected cholecystitis vs cholangitis Cholecystitis, unspecified Hypertension (HTN) Unspecified essential hypertension Atrial fibrillation Volume overload Other fluid overload Morbid obesity TOM on CPAP Obstructive sleep apnea (adult) (pediatric) Hematuria Hematuria, unspecified Nonsustained ventricular tachycardia Paroxysmal ventricular tachycardia documented in this encounter Administered Medications Inactive Administered Medications - up to 3 most recent administrations Medication Order MAR Action Action Date Dose Rate Site allopurinol (ZYLOPRIM) tablet 300 mg 300 mg, Oral, DAILY, First dose on Fri09/14/14 at 1400, Until Discontinued, Routine Given 09/20/2014 9:20 AM EST 300 mg Given 09/19/2014 9:14 AM EST 300 mg Given 09/18/2014 8:11 AM EST 300 mg aspirin EC tablet 81 mg 81 mg, Oral, DAILY, First dose on Fri09/10/14 at 0900, Until Discontinued, Routine Given 09/20/2014 9:20 AM EST 81 mg Given 09/19/2014 9:14 AM EST 81 mg Given 09/18/2014 8:11 AM EST 81 mg atorvastatin (LIPITOR) tablet 80 mg 80 mg, Oral, EVERY EVENING, First dose on Fri09/09/14 at 2000, Until Discontinued, Routine Given 09/19/2014 4:30 PM EST 80 mg Given 09/18/2014 4:42 PM EST 80 mg Given 09/17/2014 4:54 PM EST 80 mg DILTiazem (CARDIZEM) tablet 30 mg 30 mg, Oral, EVERY 6 HOURS SCHEDULED, First dose on 09/17/14 at 1300, Until Discontinued, Hold for SBP<110 or HR<60, Routine Given 09/19/2014 12:32 PM EST 30 mg Given 09/19/2014 6:03 AM EST 30 mg Given 09/19/2014 12:30 AM EST 30 mg DILTiazem (CARDIZEM) tablet 60 mg 60 mg, Oral, EVERY 6 HOURS SCHEDULED, First dose (after last modification) on Fri09/19/14 at 1800, Until Discontinued, Hold for SBP<110 or HR<60, Routine Given 09/20/2014 1:19 PM EST 60 mg Given 09/20/2014 6:14 AM EST 60 mg Given 09/20/2014 12:08 AM EST 60 mg enoxaparin (LOVENOX) injection 180 mg 180 mg, Subcutaneous, EVERY 12 HOURS SCHEDULED (2 times per day), First dose on Fri09/10/14 at 1230, Until Discontinued, Routine Given 09/12/2014 11:31 PM EST 180 mg Given 09/12/2014 9:00 AM EST 180 mg Le Upper Outer Quadrant Given 09/11/2014 8:20 PM EST 180 mg enoxaparin (LOVENOX) injection 180 mg 180 mg, Subcutaneous, EVERY 12 HOURS SCHEDULED (2 times per day), First dose on Fri09/19/14 at 1500, Until Discontinued, Routine Given 09/20/2014 9:20 AM EST 180 mg Given 09/19/2014 4:31 PM EST 180 mg enoxaparin (LOVENOX) injection 40 mg 40 mg, Subcutaneous, EVERY 24 HOURS SCHEDULED (Daily), First dose on Fri09/14/14 at 1400, Until Discontinued, Routine Given 09/19/2014 9:15 AM EST 40 mg Given 09/18/2014 8:12 AM EST 40 mg Given 09/17/2014 8:58 AM EST 40 mg famotidine (PEPCID) injection 20 mg 20 mg, Intravenous, 2 TIMES DAILY, First dose (after last modification) on Fri09/09/14 at 2100, Until Discontinued Given 09/12/2014 9:00 AM EST 20 mg Given 09/11/2014 8:17 PM EST 20 mg Given 09/11/2014 9:33 AM EST 20 mg furosemide (LASIX) injection 20 mg 20 mg, Intravenous, ONCE, 1 dose, On Fri09/09/14 at 1915 Given 09/09/2014 6:59 PM EST 20 mg furosemide (LASIX) injection 20 mg 20 mg, Intravenous, ONCE, 1 dose, On Fri09/10/14 at 1045 Given 09/10/2014 11:17 AM EST 20 mg furosemide (LASIX) injection 20 mg 20 mg, Intravenous, ONCE, 1 dose, On 09/12/14 at 0945 Given 09/12/2014 9:47 AM EST 20 mg furosemide (LASIX) injection 40 mg 40 mg, Intravenous, ONCE, 1 dose, On 09/10/14 at 1700 Given 09/10/2014 5:03 PM EST 40 mg furosemide (LASIX) injection 40 mg 40 mg, Intravenous, ONCE, 1 dose, On 09/11/14 at 1000 Given 09/11/2014 10:31 AM EST 40 mg furosemide (LASIX) injection 40 mg 40 mg, Intravenous, ONCE, 1 dose, On 09/12/14 at 1700 Given 09/12/2014 5:34 PM EST 40 mg furosemide (LASIX) tablet 20 mg 20 mg, Oral, 2 TIMES DAILY, First dose (after last modification) on 09/17/14 at 1500, Until Discontinued, Routine Given 09/20/2014 6:14 AM EST 20 mg Given 09/19/2014 2:54 PM EST 20 mg Given 09/19/2014 6:03 AM EST 20 mg furosemide (LASIX) tablet 40 mg 40 mg, Oral, 2 TIMES DAILY, First dose (after last modification) on Marshall 09/11/14 at 1500, Until Discontinued, Routine Given 09/12/2014 9:00 AM EST 40 mg Given 09/11/2014 4:59 PM EST 40 mg furosemide (LASIX) tablet 40 mg 40 mg, Oral, 2 TIMES DAILY, First dose on Fri09/14/14 at 1400, Until Discontinued, Routine Given 09/15/2014 8:23 AM EST 40 mg Given 09/14/2014 2:20 PM EST 40 mg furosemide (LASIX) tablet 40 mg 40 mg, Oral, 2 TIMES DAILY, First dose (after last modification) on Helen 09/15/14 at 1500, Until Discontinued, Routine Given 09/17/2014 6:53 AM EST 40 mg Given 09/16/2014 3:46 PM EST 40 mg Given 09/16/2014 6:03 AM EST 40 mg lactated ringers infusion 100 mL/hr, Intravenous, CONTINUOUS, Starting on Fri09/09/14 at 1315, Until Fri09/09/14 at 1809, Endoscopy (Day of Procedure) Continued Bag 09/09/2014 4:18 PM EST 100 mL/hr 100 mL/hr New Bag 09/09/2014 3:03 PM EST New Bag 09/09/2014 12:53 PM EST 100 mL/hr 100 mL/hr lisinopril (PRINIVIL;ZESTRIL) tablet 10 mg 10 mg, Oral, DAILY, First dose (after last modification) on Fri09/14/14 at 0845, Until Discontinued, STAT Given 09/15/2014 8:22 AM EST 10 mg Given 09/14/2014 9:01 AM EST 10 mg lisinopril (PRINIVIL;ZESTRIL) tablet 20 mg 20 mg, Oral, DAILY, First dose (after last modification) on Fri09/16/14 at 1000, Until Discontinued, Routine Given 09/20/2014 9:20 AM EST 20 mg Given 09/19/2014 9:14 AM EST 20 mg Given 09/18/2014 8:11 AM EST 20 mg metoprolol (LOPRESSOR) injection 5 mg 5 mg, Intravenous, ONCE, 1 dose, On Fri09/11/14 at 0145, STAT Given 09/11/2014 1:38 AM EST 5 mg metoprolol tartrate (LOPRESSOR) tablet 25 mg 25 mg, Oral, EVERY 6 HOURS SCHEDULED, First dose on Fri09/09/14 at 1915, Until Discontinued, Hold for HR<60, hold for SBP<100, Routine Given 09/11/2014 5:15 AM EST 25 mg Given 09/10/2014 11:06 PM EST 25 mg Given 09/10/2014 5:03 PM EST 25 mg metoprolol tartrate (LOPRESSOR) tablet 25 mg 25 mg, Oral, ONCE, 1 dose, On Fri09/11/14 at 0915, Routine Given 09/11/2014 9:27 AM EST 25 mg metoprolol tartrate (LOPRESSOR) tablet 25 mg 25 mg, Oral, ONCE, 1 dose, On Fri09/14/14 at 0215, STAT Given 09/14/2014 1:53 AM EST 25 mg metoprolol tartrate (LOPRESSOR) tablet 50 mg 50 mg, Oral, EVERY 6 HOURS SCHEDULED, First dose (after last modification) on Fri09/11/14 at 1200, Until Discontinued, Hold for HR<50, hold for SBP<90, Routine Given 09/18/2014 11:47 AM EST 50 mg Given 09/18/2014 6:20 AM EST 50 mg Given 09/18/2014 12:59 AM EST 50 mg metoprolol tartrate (LOPRESSOR) tablet 50 mg 50 mg, Oral, EVERY 12 HOURS SCHEDULED (2 times per day), First dose on Fri09/18/14 at 2100, Until Discontinued, Hold for SBP<110 or HR<55, Routine Given 09/20/2014 9:20 AM EST 50 mg Given 09/19/2014 9:29 PM EST 50 mg Given 09/19/2014 9:14 AM EST 50 mg piperacillin-tazobactam (ZOSYN) 3.375 g in dextrose 5% 50 mL 3.375 g, Intravenous, EVERY 8 HOURS, 20 doses, First dose on Fri09/09/14 at 2000, Last dose on Fri09/16/14 at 0400, Administer over 4 Hours, Indication for (Active or Suspected): GI/Intra-abdominal Given 09/16/2014 4:59 AM EST 3.375 g 12.5 mL/hr Given 09/15/2014 8:00 PM EST 3.375 g 12.5 mL/hr Given 09/15/2014 11:30 AM EST 3.375 g 12.5 mL/hr polyethylene glycol (MIRALAX) packet 17 g 17 g, Oral, DAILY, First dose on Fri09/11/14 at 1845, Until Discontinued, Routine Given 09/12/2014 9:00 AM EST 17 g Given 09/11/2014 7:17 PM EST 17 g potassium chloride (K-DUR/KLOR-CON) extended release tablet 20 mEq 20 mEq, Oral, ONCE, 1 dose, On Fri09/16/14 at 1030, 20 mEq tablet may be dissolved in water for administration, Routine Given 09/16/2014 10:54 AM EST 20 mEq potassium chloride 10 mEq in 100 mL 10 mEq, Intravenous, EVERY 1 HOUR PRN, Starting on Fri09/09/14 at 1940, Until Fri09/12/14 at 1543, Administer over 60 Minutes, hypokalemia, Administer 2 times 10 meq/100 mL bags, each over 30-60 minutes for serum potassium (mMol/L) of 3.9 - 4 See instructions for Potassium Protocol in online policies. Given 09/11/2014 8:11 PM EST 10 mEq 100 mL/hr Given 09/11/2014 5:44 PM EST 10 mEq 100 mL/hr potassium chloride 10 mEq in 100 mL 10 mEq, Intravenous, EVERY 1 HOUR PRN, Starting on Fri09/09/14 at 1940, Until Fri09/12/14 at 1543, Administer over 60 Minutes, hypokalemia, Administer 4 times 10 meq/100 mL bags, each over 30-60 minutes for serum potassium (mMol/L) of 3.3 - 3.8 See instructions for Potassium Protocol in online policies. Given 09/12/2014 5:17 AM EST 10 mEq 100 mL/hr Given 09/12/2014 4:09 AM EST 10 mEq 100 mL/hr Given 09/12/2014 2:15 AM EST 10 mEq 100 mL/hr potassium Citrate (UROCIT) tablet SR TbSR 20 mEq 20 mEq, Oral, 2 TIMES DAILY, First dose on Fri09/14/14 at 1400, Until Discontinued, Routine Given 09/20/2014 9:20 AM EST 20 mEq Given 09/19/2014 9:29 PM EST 20 mEq Given 09/19/2014 9:14 AM EST 20 mEq propofol (DIPRIVAN) 10 mg/mL infusion 1 dose, Starting on Fri09/09/14 at 1628, Until Fri09/09/14 at 1645, [facility]: cabinet override propofol (DIPRIVAN) infusion 9 mg (rounded from 9.3 mg = 9,300 mcg), Intravenous, ONCE, 1 dose, On Fri09/09/14 at 1730, PACU Recovery, Routine New Bag 09/09/2014 4:45 PM EST 50 mcg/kg/min propofol (DIPRIVAN) infusion 0-75 mcg/kg/min ? 186 kg (0-55.8 mL/hr, rounded to 0-83.7 mL/hr), Intravenous, CONTINUOUS, Starting on Fri09/09/14 at 1800, Until Fri09/09/14 at 1935, Maintenance, short term sedation for mechanically ventilated patient. Titrate to sedation level of RASS Goal 0 to -1. Start at 10 mcg/kg/min, adjust rate by 5 mcg/kg/min every 3 minutes. Dose not to exceed 75 mcg/kg/minute., Routine Rate/Dose Change 09/09/2014 6:49 PM EST 60 mcg/kg/min 67 mL/hr New Bag 09/09/2014 4:30 PM EST 70 mcg/kg/min 78.1 mL/hr propofol (DIPRIVAN) infusion 0-75 mcg/kg/min ? 186 kg (0-83.7 mL/hr), Intravenous, CONTINUOUS, Starting on Fri09/09/14 at 2000, Until Fri09/09/14 at 2057, care home for Trauma or hemodynamically stable, medical or surgical patient. Titrate to sedation level of RASS Goal (-) 1. Start at 10 mcg/kg/min, adjust rate by 5 mcg/kg/min every 3 minutes. Dose not to exceed 75 mcg/kg/minute., Routine New Bag 09/09/2014 7:30 PM EST 60 mcg/kg/min 67 mL/hr propofol (DIPRIVAN) infusion 0-50 mcg/kg/min ? 186 kg (0-55.8 mL/hr), Intravenous, CONTINUOUS, Starting on Fri09/09/14 at 2115, Until Fri09/12/14 at 0933, Maintenance sedation for neurological indication- mechanically ventilated patient. Titrate to sedation level of RASS Goal (-) 1. Start at 10 mcg/kg/min, adjust rate by 5 mcg/kg/min every 3 minutes. Dose not to exceed 50 mcg/kg/minute., Routine Rate/Dose Verify 09/12/2014 9:00 AM EST 10 mcg/kg/min 11.2 mL/hr Rate/Dose Verify 09/12/2014 8:00 AM EST 10 mcg/kg/min 11.2 mL/hr Rate/Dose Change 09/12/2014 7:45 AM EST 10 mcg/kg/min 11.2 mL/hr sodium chloride 0.9% infusion 10 mL/hr, Intravenous, CONTINUOUS, Starting on Fri09/09/14 at 2245, Until Fri09/12/14 at 1543 New Bag 09/12/2014 10:00 AM EST 10 mL/hr 10 mL/hr Rate/Dose Verify 09/12/2014 8:00 AM EST 10 mL/hr 10 mL/h r New Bag 09/09/2014 8:30 PM EST 10 mL/hr 10 mL/hr sodium chloride 0.9% infusion 10 mL/hr, Intravenous, CONTINUOUS, Starting on Fri09/09/14 at 2245, Until Fri09/12/14 at 1543 Rate/Dose Verify 09/12/2014 10:00 AM EST 10 mL/hr 10 mL/hr Rate/Dose Verify 09/12/2014 8:00 AM EST 10 mL/hr 10 mL/h r New Bag 09/09/2014 6:30 PM EST 10 mL/hr 10 mL/hr warfarin (COUMADIN) tablet 3 mg 3 mg, Oral, ONCE, 1 dose, On Helen 09/15/14 at 1700, Routine Given 09/15/2014 5:35 PM EST 3 mg warfarin (COUMADIN) tablet 3 mg 3 mg, Oral, ONCE, 1 dose, On 09/16/14 at 1700, Routine Given 09/16/2014 5:03 PM EST 3 mg warfarin (COUMADIN) tablet 5 mg 5 mg, Oral, ONCE, 1 dose, On 09/14/14 at 1700, Routine Given 09/14/2014 5:22 PM EST 5 mg warfarin (COUMADIN) tablet 5 mg 5 mg, Oral, ONCE, 1 dose, On 09/17/14 at 1700, Routine Given 09/17/2014 4:54 PM EST 5 mg warfarin (COUMADIN) tablet 7.5 mg 7.5 mg, Oral, ONCE, 1 dose, On 09/18/14 at 1700, Routine Given 09/18/2014 5:19 PM EST 7.5 mg warfarin (COUMADIN) tablet 7.5 mg 7.5 mg, Oral, ONCE, 1 dose, On 09/19/14 at 1700, Pt's reports that he had vit k at other hospital prior to his transfer here, Routine Given 09/19/2014 4:24 PM EST 7.5 mg documented in this encounter Active and Recently Administered Medications Times are shown in EST. Scheduled Medication Order 09/18/2014 09/19/2014 09/20/2014 allopurinol (ZYLOPRIM) tablet 300 mg (CANCELED) 300 mg, Oral, DAILY, First dose on Fri09/14/14 at 1400, Until Discontinued, Routine 0811 (Given - Provider: Katy Stubbs RN) 0914 (Given - Provider: Berna Salas RN) 0920 (Given - Provider: Florinda Collier RN) aspirin EC tablet 81 mg (CANCELED) 81 mg, Oral, DAILY, First dose on 09/10/14 at 0900, Until Discontinued, Routine 0811 (Given - Provider: Katy Stubbs RN) 0914 (Given - Provider: Berna Salas RN) 0920 (Given - Provider: Florinda Collier RN) atorvastatin (LIPITOR) tablet 80 mg (CANCELED) 80 mg, Oral, EVERY EVENING, First dose on Fri09/09/14 at 2000, Until Discontinued, Routine 1642 (Given - Provider: Katy Stubbs RN) 1630 (Given - Provider: Berna Salas RN) DILTiazem (CARDIZEM) tablet 30 mg (CANCELED) 30 mg, Oral, EVERY 6 HOURS SCHEDULED, First dose on Fri09/17/14 at 1300, Until Discontinued, Hold for SBP<110 or HR<60, Routine 0059 (Given - Provider: Florinda Collier RN)0620 (Given - Provider: Katy Price RN)1148 (Given - Provider: Katy Stubbs RN)1747 (Given - Provider: Katy Stubbs RN) 0030 (Given - Provider: Katy Price RN)0603 (Given - Provider: Katy Price RN)1232 (Given - Provider: Mikayla Carolina RN - Comment: HR 83) DILTiazem (CARDIZEM) tablet 60 mg (CANCELED) 60 mg, Oral, EVERY 6 HOURS SCHEDULED, First dose (after last modification) on Fri09/19/14 at 1800, Until Discontinued, Hold for SBP<110 or HR<60, Routine 1834 (Given - Provider: Berna Salas RN) 0008 (Given - Provider: Katy Price RN - Comment: 153/78)0614 (Given - Provider: Drea Eubanks RN)1319 (Given - Provider: Florinda Collier RN) enoxaparin (LOVENOX) injection 180 mg 180 mg, Subcutaneous, EVERY 12 HOURS SCHEDULED (2 times per day), First dose on Fri09/19/14 at 1500, Until Discontinued, Routine 1631 (Given - Provider: Berna Salas RN) 0920 (Given - Provider: Florinda Collier RN) enoxaparin (LOVENOX) injection 40 mg (CANCELED) 40 mg, Subcutaneous, EVERY 24 HOURS SCHEDULED (Daily), First dose on Fri09/14/14 at 1400, Until Discontinued, Routine 0812 (Given - Provider: Katy Stubbs RN) 0915 (Given - Provider: Berna Salas RN) furosemide (LASIX) tablet 20 mg (CANCELED) 20 mg, Oral, 2 TIMES DAILY, First dose (after last modification) on Fri09/17/14 at 1500, Until Discontinued, Routine 0620 (Given - Provider: Katy Price RN)1554 (Given - Provider: Katy Stubbs RN) 0603 (Given - Provider: Katy Price RN)1454 (Given - Provider: Berna Salas RN) 0614 (Given - Provider: Drea Eubanks RN)1500 (Due) lisinopril (PRINIVIL;ZESTRIL) tablet 20 mg 20 mg, Oral, DAILY, First dose (after last modification) on Fri09/16/14 at 1000, Until Discontinued, Routine 0811 (Given - Provider: Katy Stubbs RN) 0914 (Given - Provider: Berna Salsa RN) 0920 (Given - Provider: Florinda Collier RN) metoprolol tartrate (LOPRESSOR) tablet 50 mg (CANCELED) 50 mg, Oral, EVERY 6 HOURS SCHEDULED, First dose (after last modification) on 09/11/14 at 1200, Until Discontinued, Hold for HR<50, hold for SBP<90, Routine 0059 (Given - Provider: Florinda Collier RN)0620 (Given - Provider: Katy Price RN)1147 (Given - Provider: Katy Stubbs RN) metoprolol tartrate (LOPRESSOR) tablet 50 mg 50 mg, Oral, EVERY 12 HOURS SCHEDULED (2 times per day), First dose on Fri09/18/14 at 2100, Until Discontinued, Hold for SBP<110 or HR<55, Routine 2119 (Given - Provider: Katy Price RN) 0914 (Given - Provider: Berna Salas RN)212 (Given - Provider: Katy Price RN) 0920 (Given - Provider: Florinda Collier RN) potassium Citrate (UROCIT) tablet SR TbSR 20 mEq (CANCELED) 20 mEq, Oral, 2 TIMES DAILY, First dose on Fri09/14/14 at 1400, Until Discontinued, Routine 0812 (Given - Provider: Katy Stubbs RN)2119 (Given - Provider: Katy Price, RN) 913 (Given - Provider: Berna Salas, RN)2128 (Given - Provider: Katy Price, JACOB) 919 (Given - Provider: Florinda Collier RN) warfarin (COUMADIN) tablet 7.5 mg (COMPLETED) 7.5 mg, Oral, ONCE, 1 dose, On Fri09/18/14 at 1700, Routine 1719 (Given - Provider: Katy Stubbs RN) warfarin (COUMADIN) tablet 7.5 mg (COMPLETED) 7.5 mg, Oral, ONCE, 1 dose, On Fri09/19/14 at 1700, Pt's reports that he had vit k at other hospital prior to his transfer here, Routine 1624 (Given - Provider: Berna Salas, JACOB) documented in this encounter Care Teams Business Development Coordinator Relationship Specialty Start Date End Date Cherise Staples MD [address] [place] [address] PCP - General 07/31/10 10/04/19 documented as of this encounter
--- OUTSIDE RECORDS SUMMARY | 2024-08-20 06:25 | XMS_ITS | Encounter Summary ---
Author [facility] [place] [place] [address] Care Team Providers Care Filling Layer Up Name Role Phone Cherise Staples MD Primary Care Provider [phone] Reason for Visit * Reason Onset Date Comments Advice Only 09/21/2014 Encounter Details Date Type Department Care Team (Late st Contact Info) Description 09/21/2014 Telephone [place] [address] Edward Gates MD [facility] [place] [address] Advice Only Social History Tobacco Use Types Packs/Day Years [...] encounter Miscellaneous Notes * Telephone Encounter - Edward Gates MD - 09/21/2014 11:01 AM EST Mr. Crouch's VNA nurse called to inquire about his potassium citrate. He was recently hospitalized [place] [facility] and had been receiving this medication as an inpatient, but his discharge instructions did not indicate whether to continue or not. I explained that our service was not involved in the recent admission and did not evaluate the patient, but as he received the medication while admitted, we would suggest continuing it as maintenancefor his kidney stones, unless there is a new contraindication to the medication. I advised contacting the admitting service with further inquiries. The plan was explained in detail to the caller, who agreed. All questions were answered to the caller's satisfaction. documented in this encounter Plan of Treatment Not on file documented as of this encounter Visit Diagnoses Not on filedocumented in this encounter Care Teams Filling Layer Up Relationship Specialty Start Date End Date Cherise Staples MD [address] [place] [address] PCP - General 07/31/10 10/04/19 documented as of this encounter
--- OUTSIDE RECORDS SUMMARY | 2024-08-20 06:25 | XMS_ITS | Encounter Summary ---
Author Organization [facility] Address [facility] [place] [address] Care Team Providers Care Health Care Technician Name Role Phone Cherise Staples MD Primary Care Provider [phone] Encounter Details Date Type Department Care Team (Latest Contact Info) Description 08/29/2015 12:05 AM EST - 08/29/2015 11:59 PM [facility] Hospital Encounter Radiology Library at [facility], [place], [facility] [place] [address] Discharge Disposition: Home Social History Tobacco Use [...] Diagnosis Comments FILM LIBRARY STORAGE ONLY DX CHEST STAT 08/29/2015 12:05 AM EST Pain documented in this encounter Results * Film Library- Storage only DX Chest (08/29/2015 12:05 AM EST) Narrative User, Generic Transmittal - 08/29/2015 10:42 PM EST See PACS for result report. Marla May MD IMG FILM LIBRARY ORD ERABLES documented in this encounter Visit Diagnoses Not on filedocumented in this encounter Care Teams Health Care Technician Relationship Specialty Start Date End Date Cherise Staples MD [address] [place] [address] PCP - General 07/31/10 10/04/19 documented as of this encounter
--- OUTSIDE RECORDS SUMMARY | 2024-08-20 06:25 | XMS_ITS | Encounter Summary ---
Author Organization [facility] [place] [address] Care Team Providers Care [employer] Name Role Phone Cherise Staples MD Primary Care Provider [phone] Encounter Details Date Type Department Care Team (Late st Contact Info) Description 03/01/2015 Ancillary Procedure Radiology Library at [facility] [place] [id number] Nick Nettles MD [address] [place], [place] [address] Social History Tobacco Use Types Packs/Day Years [...] FILM LIBRARY STORAGE ONLY DX KNEE Routine 03/01/2015 12:00 AM EDT documented in this encounter Results * Film Library- Storage Only DX Knee (03/01/2015 12:00 AM EDT) Narrative [facility] - 09/16/2022 8:04 PM EST This exam is auto-finalizing. It's purpose is for storage only. Nick Nettles MD IM FILM LIBRARY ORD ERABLES [place], [place] documented in this encounter Visit Diagnoses Not on filedocumented in this encounter Care Teams [employer] Relationship Specialty Start Date End Date Cherise Staples MD [address] [place] [address] PCP - General 07/31/10 10/04/19 documented as of this encounter
--- OUTSIDE RECORDS SUMMARY | 2024-08-20 06:26 | XMS_ITS | Encounter Summary ---
Author Organization [facility] [place] [address] Care Team Providers Care Critical Care Clinical Nurse Specialist Name Role Phone Cherise Staples MD Primary Care Provider [phone] Reason for Visit * Reason Comments Nephrolithiasis Encounter Details Date Type Department Care Team (Late st Contact Info) Description 03/30/2013 11:20 AM EDT [place] [id number] CLINIC, Edyta Hussein Jr., MD [facility] [place] [address] Urolithiasis (Primary Dx) Discharge Disposition: Home Social History Tobacco Use Types Packs/Day Years Used Date Smoking Tobacco: Former Smokeless Tobacco: Never Sex and Gender Information Value Date Recorded Sex Assigned at Not on file Gender Identity Not on file Sexual Orientation Not on file documented as of this encounter Last Filed Vital Signs Vital Sign Reading Time Taken Comments Blood Pressure 136/84 03/30/2013 11:45 AM EDT Pulse 85 03/30/2013 11:45 AM EDT Temperature - - Respiratory Rate 22 03/30/2013 11:45 AM EDT Oxygen Saturation - - Inhaled Oxygen Concentration - - Weight 186 kg (410 lb) 03/30/2013 11:45 AM EDT Height 176.5 cm (5' 9.5) 03/30/2013 11:45 AM ED T Body Mass Index 59.68 03/30/2013 11:45 AM EDT documented in this encounter Progress Notes * Edyta Arambula Jr., MD - 03/30/2013 11:49 AM EDT HPI Mr. Crouch is a very pleasant 67 year old gentleman with >10yr h/o recurrent urolithiasis who returns for urologic follow up regarding his uric acid stones, as well as for phimosis. He has notpassed any stones since PCNL in 04/2009. He has not had any lateralizing abdominal or flank pain. Hehas not had febrile UTIs, hematuria, or new LUTS. He remains on urocit k (20meq daily), is toleratin g it well. He had also noticed phimosis and underwent circumcision in [facility]. 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 In the interval 9 months, he has been doing well. He denies interval renal colic. Penile tethering has remained unchanged, but overall bother remains low. Review of Systems Hematologic/Lymphatic: Bruises/bleeds easily (on coumadin). Gastrointestinal: Negative for abdominal pain. Genitourinary: Negative for flank pain. Past medical history: urolithiasis, obesity, CAD (ND age 52), HTN, h/o gout; atrial fibrillation Past surgical history:bilateral hip replacements (5 years ago), cardiac stent placement, appendectomy, right pcnl Family history: sister with history of urolithiasis Social History: no tobacco history; occ'l alcohol use Physical Exam Constitutional: He appears well-developed and well-nourished. No distress. HENT: Head: Normocephalic and atraumatic. Cardiovascular: Normal rate. Pulmonary/Chest: Effort normal. Abdominal: Soft. There is no tenderness. There is no rebound. Genitourinary: Circumcised. No phimosis (penile shaft entirely buried, with glans approximated to scotal skin), penile erythema or penile tenderness. No discharge found. No CVA tenderness Imaging studies: I independently reviewed the renal ultrasound from today. This reveals bilateral pelviectasis without evidence of Hydroureter. No stones noted. I compared with the prior CT from 06/17/12, which had prominent renal pelves, without specific hydronephrosis or hydroureter. It revealed tiny (subcm) punctate non-obstructing renal stones (right(approx 6) > left (3-4). Impression/Plan: 1)Urolithiasis--no significant stone growth or interval episodes of renal colic. He will continue potassium citrate and hydration. I have ordered a follow up renal u/s and BMP in 9 months. 2)Buried penile shaft s/p circumcision. We again discussed mgmt options, and I explained that if there werepain or any functional problem, repair is possible. I would have him see our reconstructive urologist, Dr Santiago. At this point, he states there is neither pain nor functional difficulty with urination. documented in this encounter Plan of Treatment Not on file documented as of this encounter Results * US retroperitoneal complete (01/05/2014 11:00 AM EDT) Anatomical Region Laterality Modality Abdomen Ultrasound 01/05/2014 11:0 0 AM EDT Narrative 01/05/2014 11:17 AM EDT ? Renal ? (Signed Final 01/05/2014 11:16 am) Patient Info ID: ? [id number] ? : ??[birth year] (68 yrs) Name: ? LAZARO CROUCH ?Visit Date: 01/05/2014 10:54 am Performed By Performed By: ?Rosaura Fournier RDMS Attending: ? Miguel SPIVEY, Ryan Kwon Referred By: ? EDYTA ARAMBULA Service(s) Provided URETRO - Retroperitoneal Complete - [id number] ? [id number] Indications History of kidney stones Comparison Ultrasound: 03/30/2013 Right Kidney Size (cm) ?L: ??13.2 Cortical Thickness: ?Normal Cortical Echogenicity: ?? Normal Hydronephrosis: ?Mild Comment: ?Small, non-obstructing, interpolar ??stone visualized ? measuring, 6mm. Left Kidney Size (cm) ?L: ??14.4 Cortical Thickness: ?Normal Cortical Echogenicity: ?? Normal Hydronephrosis: ?Mild Comment: ?Cyst with thin avascular septation measures ? smaller than on prior study. Urinary Bladder Pre-void (cm) ? L: ??7 ? AP: ??4.5 ? TV: ??4.4 Vol (ml): ?72.6 Comment: ?Partially distended, normal contour. Impression Ultrasound - ??Retroperitoneal Complete - Summary Small interpolar right renal stone. There is stable mild pelviectasis probably non obstuctive. The small cyst with a thin avascular septation measures smaller on todays study than on prior study from 03/20. Mild stable left pelviectasis. I ??viewed the images and agree with the above interpretation. Thank you for allowing us to participate in the care of LAZARO CROUCH. Please do not hesitate to call if you have any questions. ? Ryan Rivera MD Electronically Signed Final Report ?? 01/05/2014 11:16 am Procedure Note Ryan Rivera MD - 01/05/2014 Renal (Signed Final 01/05/2014 11:16 am) Patient Info ID: [id number] : [birth year] (68 yrs) Name: LAZARO CROUCH Visit Date: 01/05/2014 10:54 am Performed By Performed By: Rosaura Fournier RDMS Attending: Ryan Rivera MD. Referred By: EDYTA ARAMBULA Service(s) Provided URETRO - Retroperitoneal Complete - [id number] Indications History of kidney stones Comparison Ultrasound: 03/30/2013 Right Kidney Size (cm) L: 13.2 Cortical Thickness: Normal Cortical Echogenicity: Normal Hydronephrosis: Mild Comment: Small, non-obstructing, interpolar stone visualized measuring, 6mm. Left Kidney Size (cm) L: 14.4 Cortical Thickness: Normal Cortical Echogenicity: Normal Hydronephrosis: Mild Comment: Cyst with thin avascular septation measures smaller than on prior study. Urinary Bladder Pre-void (cm) L: 7 AP: 4.5 TV: 4.4 Vol (ml): 72.6 Comment: Partially distended, normal contour. Impression Ultrasound - Retroperitoneal Complete - Summary Small interpolar right renal stone. There is stable mild pelviectasis probably non obstuctive. The small cyst with a thin avascular septation measures smaller on todays study than on prior study from 03/20. Mild stable left pelviectasis. I viewed the images and agree with the above interpretation. Thank you for allowing us to participate in the care of LAZARO CROUCH. Please do not hesitate to call if you have any questions. Ryan Rivera MD Electronically Signed Final Report 01/05/2014 11:16 am Edyta Arambula Jr., MD IMG US GEN ORDERAB LES documented in this encounter Visit Diagnoses Diagnosis Urolithiasis- Primary Urinary calculus, unspecified Urolithiasis Urinary calculus, unspecified documented in this encounter Care Teams Critical Care Clinical Nurse Specialist Relationship Specialty Start Date End Date Cherise Staples MD [address] [place] [address] PCP - General 07/31/10 10/04/19 documented as of this encounter
--- OUTSIDE RECORDS SUMMARY | 2024-08-20 06:26 | XMS_ITS | Encounter Summary ---
Author Organization [facility] [place] [address] Care Team Providers Care Canoe Inspector Name Role Phone Cherise Staples MD Primary Care Provider [phone] Reason for Visit * Reason Comments Medication Refill Encounter Details Date Type Department Care Team (Late st Contact Info) Description 11/11/2011 [place] [address] Fabricio Aranda Jr., MD [facility] [place] [address] Social History Tobacco Use Types Packs/Day Years [...] on filedocumented in this encounter Care Teams Canoe Inspector Relationship Specialty Start Date End Date Cherise Staples MD [address] [place] [address] PCP - General 07/31/10 10/04/19 documented as of this encounter
--- OUTSIDE RECORDS SUMMARY | 2024-08-20 06:26 | XMS_ITS | Encounter Summary ---
Author Organization [facility] [place] [address] Care Team Providers Care Chocolate Coater Name Role Phone Cherise Staples MD Primary Care Provider Encounter Details Date Type Department Care Team (Late st Contact Info) Description 09/09/2014 Orders [place] [address] Nick Broussard MD [facility] [address] Calculus of bile duct with acute cholecystitis without obstruction Social History Tobacco Use Types Packs/Day Years Used Date Smoking Tobacco: Former Smokeless Tobacco: Never Sex and Gender Information Value Date Recorded Sex Assigned at Not on file Gender Identity Not on file Sexual Orientation Not on file documented as of this encounter Plan of Treatment Not on file documented as of this encounter Visit Diagnoses Diagnosis Calculus of bile duct with acute cholecystitis without obstruction Calculus of bile duct with acute cholecystitis without mention of obstruction documented in this encounter Care Teams Chocolate Coater Relationship Specialty Start Date End Date Cherise Staples MD [address] [place] [address] PCP - General 07/31/10 10/04/19 documented as of this encounter
--- OUTSIDE RECORDS SUMMARY | 2024-08-20 06:26 | XMS_ITS | Encounter Summary ---
[place] [address] Care Team Providers Care Short Filler Bunch Machine Operator Name Role Phone Cherise Staples MD Primary Care Provider [phone] Encounter Details Date Type Department Care Team (Latest Contact Info) Description 03/30/2013 10:29 AM EDT - 03/30/2013 11:59 PM EDT Hospital [place] [address] Nephrolithiasis Social History Tobacco Use Types Packs/Day Years Used Date Smoking Tobacco: Former Smokeless Tobacco: Never Sex and Gender Information Value Date Recorded Sex Assigned at Not on file Gender Identity Not on file Sexual Orientation Not on file documented as of this encounter Medications at Time of Discharge Medication Sig Dispensed Refills Start Date End Date Potassium Citrate (UROCIT-K 10) 10 mEq TbSRIndications:Calculu s of kidney Take 2 tablets by mouth 3 times daily. 540 tablet 3 01/13/2013 01/25/2014 aspirin 81 mg EC tablet Take 81 mg by mouth daily. 11/23/2014 lisinopril (PRINIVIL;ZESTRIL) 40 mg tablet 09/04/2010 09/20/2014 furosemide (LASIX) 40 mg tablet 09/04/2010 09/09/2014 atorvastatin (LIPITOR) 40 mg tablet 09/04/2010 09/09/2014 documented as of this encounter Plan of Treatment Not on file documented as of this encounter Procedures Procedure Name Priority Date/Time Associated Diagnosis Comments US RETROPERITONEAL COMPLETE STAT 03/30/2013 11:27 AM EDT Nephrolithiasis documented in this encounter Results * US retroperitoneal complete (03/30/2013 11:27 AM EDT) Anatomical Region Laterality Modality Abdomen Ultrasound 03/30/2013 11:2 7 AM EDT Narrative 03/30/2013 12:15 PM EDT ? Renal ? (Signed Final 03/30/2013 12:15 pm) Patient Info ID: ? [id number] ? : ??[birth year] (67 yrs) Name: ? LAZARO CROUCH ?Visit Date: 03/30/2013 11:18 am Performed By Performed By: ?Eli Macias RDMS Associate: ? Mehran SPIVEY, Christoph Tapia Attending: ? Jane Aguilar MD Referred By: ? EDYTA ARANDA Service(s) Provided URETRO - Retroperitoneal Complete - [id number] ? [id number] Indications History of kidney stones Comparison Renal ultrasound 12/11/2011; noncontrast CT abdomen/pelvis 06/17/12. Right Kidney Size (cm) ?L: ??13.9 Cortical Thickness: ?Normal Cortical Echogenicity: ?? Normal Hydronephrosis: ?Mild pelvicaliectasis, unchanged from ?prior Comment: ?No renal calculi seen. Left Kidney Size (cm) ?L: ??14.4 Cortical Thickness: ?Cortical thinning, unchanged Cortical Echogenicity: ?? Normal Hydronephrosis: ?No sonographic evidence Comment: ?No renal calculi seen. ? Cyst with thin incomplete septation lower pole ? measuring approximately 2 cm in largest ? dimension. Urinary Bladder Pre-void (cm) ? L: ??7.6 ? AP: ??4.1 ? TV: ??5.7 Vol (ml): ?93 Comment: ?Unremarkable for degree of distention. Additional Findings Visualization limited secondary to body habitus. Impression Ultrasound - ??Retroperitoneal Complete - Summary 1. ??Visualization limited due to patient body habitus. 2. ??No sonographically evident nephrolithiasis. 3. ??Stable mild right-sided pelvicaliectasis. 4. ??Resolved left-sided pelvicaliectasis. 5. ??2 cm minimally complex septated left lower pole renal cyst, not seen on the prior December 2011 ultrasound or prior ultrasounds dating back to 2008, though there is a vague corresponding in size low attenuation lesion on the June [address] I ??viewed the images and agree with the above interpretation. Thank you for allowing us to participate in the care of LAZARO CROUCH. Please do not hesitate to call if you have any questions. ? Jane Aguilar MD Electronically Signed Final Report ?? 03/30/2013 12:15 pm Film and interpretation reviewed by the attending Procedure Note Jane Aguilar MD - 03/30/2013 Renal (Signed Final 03/30/2013 12:15 pm) Patient Info ID: [id number] : [birth year] (67 yrs) Name: LAZARO CROUCH Visit Date: 03/30/2013 11:18 am Performed By Performed By: Eli Macias RDMS Associate: Christoph Laurent MD Attending: Jane Aguilar MD Referred By: EDYTA ARANDA Service(s) Provided URETRO - Retroperitoneal Complete - [id number] Indications History of kidney stones Comparison Renal ultrasound 12/11/2011; noncontrast CT abdomen/pelvis 06/17/12. Right Kidney Size (cm) L: 13.9 Cortical Thickness: Normal Cortical Echogenicity: Normal Hydronephrosis: Mild pelvicaliectasis, unchanged from prior Comment: No renal calculi seen. Left Kidney Size (cm) L: 14.4 Cortical Thickness: Cortical thinning, unchanged Cortical Echogenicity: Normal Hydronephrosis: No sonographic evidence Comment: No renal calculi seen. Cyst with thin incomplete septation lower pole measuring approximately 2 cm in largest dimension. Urinary Bladder Pre-void (cm) L: 7.6 AP: 4.1 TV: 5.7 Vol (ml): 93 Comment: Unremarkable for degree of distention. Additional Findings Visualization limited secondary to body habitus. Impression Ultrasound - Retroperitoneal Complete - Summary 1. Visualization limited due to patient body habitus. 2. No sonographically evident nephrolithiasis. 3. Stable mild right-sided pelvicaliectasis. 4. Resolved left-sided pelvicaliectasis. 5. 2 cm minimally complex septated left lower pole renal cyst, not seen on the prior December 2011 ultrasound or prior ultrasounds dating back to 2008, though there is a vague corresponding in size low attenuation lesion on the June [address] I viewed the images and agree with the above interpretation. Thank you for allowing us to participate in the care of LAZARO CROUCH. Please do not hesitate to call if you have any questions. Jane Aguilar MD Electronically Signed Final Report 03/30/2013 12:15 pm Film and interpretation reviewed by the attending Edyta Aranda Jr., MD IMG US GEN ORDERAB LES documented in this encounter Visit Diagnoses Diagnosis Nephrolithiasis Calculus of kidney documented in this encounter Care Teams Short Filler Bunch Machine Operator Relationship Specialty Start Date End Date Cherise Staples MD [address] [place] [address] PCP - General 07/31/10 10/04/19 documented as of this encounter
--- OUTSIDE RECORDS SUMMARY | 2024-08-20 06:26 | XMS_ITS | Encounter Summary ---
[place] [address] Care Team Providers Care Haulpak Driver Name Role Phone Cherise Staples MD Primary Care Provider [phone] Encounter Details Date Type Department Care Team (Late st Contact Info) Description 09/09/2014 [place] [id number] Unknown None Social History Tobacco Use Types Packs/Day Years [...] Priority Date/Time Associated Diagnosis Comments ERCP Routine 09/09/2014 3:02 PM EST documented in this encounter Results * ERCP (09/09/2014 3:02 PM EST) ERCP [facility] Endoscopy Patient Name: Jaime Crouch ? Procedure Date: 09/09/2014 3:02 PM ? Date of : 1945 ? Age: 69 ? Order #: [id number] ? Procedure: ? ERCP Indications: ? Evaluation and possible treatment of ? bile duct stone(s) Providers: ? Nick Broussard MD, Magui Schumacher. ? MD Davey, Slim Rodriguez RN, ? Alexus Garsia RN Referring : ? Medicines: ? General Anesthesia Complications: ? No [...] Examination: normal. Prophylactic ? Antibiotics: The patient requires ? prophylactic antibiotics. Prior ? Anticoagulants: The patient has taken ? Lovenox (enoxaparin), last dose was ? day of procedure. ASA Grade ? Assessment: III - A patient with ? severe systemic disease. After ? reviewing the [...] was ? used to inject contrast into the bile ? duct. The ERCP was accomplished ? without difficulty. The patient ? tolerated the procedure well. ? Findings: ? The derrick car operator film was normal and the procedure was ? performed with the patient supine. The esophagus was ? successfully intubated under direct vision. The scope ? was advanced to a normal major papilla in the ? descending duodenum without detailed examination of ? the pharynx, larynx and associated structures, and ? upper GI tract. The upper GI tract was grossly ? normal. The bile duct was deeply cannulated with the ? short-nosed traction sphincterotome and a 0.035 inch ? ACROBAT wire advanced to the intrahepatic ducts. ? Contrast was injected. Cholangiogram revealed a ? normal appearing CBD measuring 5 mm in maximum ? diameter. There were no stones or filling defects. ? Contrast did fill into the cystic duct. A 15 mm ? biliary sphincterotomy was made with a short-tip ? traction sphincterotome using ERBE electrocautery. ? There was no post-sphincterotomy bleeding. The duct ? was then swept multiple times from the distal ? intrahepatic ducts with the 8.5 mm balloon. Occlusion ? cholangiogram revealed no focal filling defects. ? The PD was not accessed. ? Impression: ?- No evidence of CBD stone with ? filling into the cystic duct Recommendation: ?- Admit to medicine - we have called ? the hospitalist ? - Continue IV Zosyn ? - Surgery consult ? Procedure Code(s): ?? --- Professional --- ? 58046, Endoscopic retrograde ? cholangiopancreatography (ERCP); with ? sphincterotomy/papillotomy CPT (R) 2012 [employer]. All Rights Reserved. The codes documented in this report are preliminary and upon medical coder review may be revised to meet current compliance requirements. Nick Broussard MD 09/09/2014 4:53 PM This report has been signed electronically. Number of Addenda: 0 Note Initiated On: 09/09/2014 3:02 PM PROVATION 09/09/2014 3:02 PM EST Unknown GENERAL SURGICAL ORD ERABLES Performing Organization Address City/State/[facility] Co de Phone Number PROVATION documented in this encounter Visit Diagnoses Not on filedocumented in this encounter Care Teams Haulpak Driver Relationship Specialty Start Date End Date Cherise Staples MD [address] [place] [address] PCP - General 07/31/10 10/04/19 documented as of this encounter"
--- OUTSIDE RECORDS SUMMARY | 2024-08-20 06:26 | XMS_ITS | Encounter Summary ---
Author Organization Formerly [facility] [place] [address] Care Team Providers Care Stamping Die Try Out Worker Name Role Phone Cherise Staples MD Primary Care Provider [phone] Reason for Visit * Reason Comments Nephrolithiasis Encounter Details Date Type Department Care Team (Late st Contact Info) Description 01/05/2014 11:20 AM EDT [place] [id number] CLINIC, Fabricio Hussein Jr., MD [facility] [place] [address] [place] [address] Urolithiasis (Primary Dx) Discharge Disposition: Home Social History Tobacco Use Types Packs/Day Years Used Date Smoking Tobacco: Former Smokeless Tobacco: Never Sex and Gender Information Value Date Recorded Sex Assigned at Not on file Gender Identity Not on file Sexual Orientation Not on file documented as of this encounter Last Filed Vital Signs Vital Sign Reading Time Taken Comments Blood Pressure 117/71 01/05/2014 11:36 AM EDT Pulse 80 01/05/2014 11:36 AM EDT Temperature - - Respiratory Rate - - Oxygen Saturation - - Inhaled Oxygen Concentration - - Weight - - Height 177.8 cm (5' 10) 01/05/2014 11:36 AM EDT Body Mass Index - - documented in this encounter Progress Notes * Fabricio Aranda Jr., MD - 01/05/2014 4:38 PM EDT I saw and examined Jaime Crouch with Dr. Leong and have independently reviewed his imaging studies. I agree with history, exam, impression, and plan as noted. * SaloSissy barrientos Carlos - 01/05/2014 11:39 AM EDT HPI Mr. Crouch is a [...] also noticed phimosis and underwent circumcision in [facility]. 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 This has not bothered him. In the interval since his follow up on 03/30/13 he has been doing well. He denies interval renal colic. He is still taking allopurinol and drinks 3-5 L of water a day. Penile tethering has remained unchanged, but overall bother remains low. Review of Systems Hematologic/Lymphatic: Bruises/bleeds easily (on coumadin). Gastrointestinal: Negative for abdominal pain. Genitourinary: Negative for flank pain or difficulty with urination. Past medical history: urolithiasis, obesity, CAD ([place] age 52), HTN, h/o gout; atrial fibrillation [...] tenderness. No discharge found. No CVA tenderness UA: Negative for blood, leukocyte esterase, nitrites, protein, pH 6 Imaging studies: I independently reviewed the renal ultrasound from today. This reveals bilateral pelviectasis without evidence of Hydroureter. 1 right 6mm mid renal, non obstructing stone, no additional stones noted. I compared this with the prior renal US from 03/30/13: This reveals bilateral pelviectasis without evidence of Hydroureter. No stones noted. I compared with the prior CT from 06/17/12, which had prominent renal pelves, without specific hydronephrosis or hydroureter. It revealed tiny (subcm) punctate non-obstructing renal stones (right(approx 6) > left (3-4). Impression/Plan: 1)Urolithiasis--one 6mm asymptomatic non obstructing right mid renal stone. No interval episodes ofrenal colic. He will continue potassium citrate and hydration. I have ordered a follow up renal u/sand BMP in 12 months. 2)Buried penile shaft s/p circumcision. We again discussed mgmt options, and I explained that if there werepain or any functional problem, repair is possible. I would have him see our reconstructive urologist, Dr Santiago. At this point, he states there is neither pain nor functional difficulty with urination. He will call with any questions or concerns in the interim. STAFF ADDENDUM: I saw and examined Jaime Crouch with Dr. Leong and have independently reviewed his imaging studies. I agree with history, exam, impression, and plan as noted. Fabricio Aranda Jr documented in this encounter Plan of Treatment Not on file documented as of this encounter Visit Diagnoses Diagnosis Urolithiasis- Primary Urinary calculus, unspecified documented in this encounter Care Teams Stamping Die Try Out Worker Relationship Specialty Start Date End Date Cherise Staples MD [address] [place] [address] PCP - General 07/31/10 10/04/19 documented as of this encounter
--- OUTSIDE RECORDS SUMMARY | 2024-08-20 06:26 | XMS_ITS | Encounter Summary ---
Author Organization Formerly [facility] [place] [address] Care Team Providers Care Dramatic Teacher Name Role Phone Cherise Staples MD Primary Care Provider Reason for Visit * Reason Comments Nephrolithiasis Phimosis Encounter Details Date Type Department Care Team (Late st Contact Info) Description 12/11/2011 11:00 AM EDT [place] [id number] CLINIC, Fabricio Hussein Jr., MD [facility] [place] [address] Nephrolithiasis (Primary Dx); Phimosis Discharge Disposition: Home Social History Tobacco Use Types Packs/Day Years Used Date Smoking Tobacco: Former Smokeless Tobacco: Never Sex and Gender Information Value Date Recorded Sex Assigned at Not on file Gender Identity Not on file Sexual Orientation Not on file documented as of this encounter Last Filed Vital Signs Vital Sign Reading Time Taken Comments Blood Pressure 131/84 12/11/2011 11:30 AM EDT Pulse 80 12/11/2011 11:30 AM EDT Temperature - - Respiratory Rate 18 12/11/2011 11:30 AM EDT Oxygen Saturation - - Inhaled Oxygen Concentration - - Weight 176.9 kg (390 lb) 12/11/2011 11:30 AM EDT Height 177.8 cm (5' 10) 12/11/2011 11:30 AM EDT Body Mass Index 55.96 12/11/2011 11:30 AM EDT documented in this encounter Progress Notes * Fabricio Aranda Jr., MD - 12/11/2011 12:25 PM EDT Subjective: Patient ID: Jaime Crouch is a 66 y.o. male. HPI Mr. Crouch is a pleasant 66 years old man with >10yr h/o recurrent urolithiasis who returns for urologic follow up regarding his uric acid stones. He has not passed any stones since PCNL in 04/2009. He has not had any lateralizing abdominal or flank pain. He has not had febrile UTIs, hematuria, or new LUTS. He had also noticed narrowing of his foreskin, with difficulty retracting his foreskin. He was started on steroid cream by his PCP and has been using it intermittently. In the interval since his last visit, he has been well and has not passed any additional stones. Hehas had less difficulty retracting the foreskin, and specifically denies any instances of painful paraphimosis. He remains on urocit k (20meq daily), is tolerating it well. Past medical history: urolithiasis, obesity, CAD ([place] age 52), HTN, h/o gout; atrial fibrillation Past surgical history:bilateral hip replacements (5 years ago), cardiac stent placement, appendectomy, right pcnl Family history: sister with history of urolithiasis Social History: no tobacco history; occ'l alcohol use Review of Systems otherwise unchanged since last visit of 09/2011 Objective: Physical Exam Vitals reviewed. Constitutional: He is oriented to person, place, and time. He appears well- developed and well-nourished. No distress. HENT: Head: Normocephalic and atraumatic. Cardiovascular: Normal rate. Pulmonary/Chest: Effort normal. No respiratory distress. Abdominal: Soft. He exhibits no mass. No tenderness. He has no rebound and no guarding. Genitourinary: Testes normal. Uncircumcised. Phimosis (mild) present. No paraphimosis, hypospadias,penile erythema or penile tenderness. No discharge found. Neurological: He is alert and oriented to person, place, and time. Skin: Skin is warm and dry. He is not diaphoretic. Psychiatric: He has a normal mood and affect. His behavior is normal. 24 hour urine (10/21 and 10/22/2009): volume: normal at 3.48 and 2.61 liters. calcium: normal at 124 and 135 mg/day. oxalate: elevated at 64 and 72 mg/day. uric acid: elevated at 876 and 1095 mg/day. citrate: normal at 698 and 908 mg/day. pH: 6.079 and 6.480. sodium: 360 and 284 mmol/d sulfate: elevated at 81 and 90 meq/d UUN: elevated at 21.92 and 23.01 g/d supersaturations: calcium oxalate: normal at 2.3 and 3.8 calcium phosphate: normal at 0.35 and 0.87 uric acid: normal at 0.43 and 0.31 CYSTINE STUDIES: Cystine screening: negative Stone analysis reveals 100% Uric acid Imaging studies: I independently reviewed the renal ultrasound from today. It reveals stable mild bilateral pelvicaliectasis, unchanged from prior imaging of 09/2011. Bilateral nonobstructing calculi remain, largest approx 1 cm, right lower pole.. Assessment and Plan: Impression/plan: We reviewed management options for nonobstructing stones. He declines any surgicalintervention at this time. We'll continue to monitor. Given the bilateral pelvic caliectasis, we discussed that this may be nonobstructive or may represent partial obstruction due to ureteral stones which are not visualized on his ultrasound. We discussed the role of CAT scan to better image and assess whether obstructing stones are present in the ureters. He declines CAT scan today, but agrees to undergo CAT scan at that time of his next followup given the limitations of ultrasound. . We discussed the role of circumcision and dorsal slit for management of phimosis. As he is able to retract the foreskin cleaned beneath it daily without pain, he is content to monitor for now. We discussed symptoms of increasing phimosis and the emergent nature with which paraphimosis should be treated if it were to occur. He expresses an understanding and agrees with this plan. documented in this encounter Plan of Treatment Not on file documented as of this encounter Results * CT abdomen & pelvis WO contrast (06/17/2012 11:02 AM EDT) Anatomical Region Laterality Modality Abdomen, Pelvis Computed Tomogra phy 06/17/2012 11:0 2 AM EDT Narrative 06/18/2012 8:[address] Abdomen / Pelvis Without Contrast Clinical History nephrolithiasis evaluate for kidney stone Comparison 04/27/2009. Technique Helical images of the abdomen pelvis were performed without contrast. ??Coronal and sagittal reformatted images were generated. Findings Six tiny nonobstructing renal calculi are seen in the right corticomedullary junction, four of which are new compared to the study performed on 04/27/12. Two tiny nonobstructing stones are seen in the left kidney, one new since prior. No hydronephrosis or perinephric stranding is identified. Evaluation for ureterovesical junction region stones is not possible due to streak artifact from bilateral hip prostheses. ??The bladder is smooth in contour and nondistended. ?? The lung bases are clear. ??The liver is normal in appearance. A few gallstones are noted in the nondistended gallbladder. ??No pericholecystic fluid or gallbladder wall thickening. ??The spleen, adrenal glands, and pancreas are unremarkable. ??No abdominal ??or pelvic lymphadenopathy. ??No dilated loops of large or small bowel. ?? Bilateral hip prosthesis are noted. No intraperitoneal free air or free fluid. ?? Impression 1. Six tiny nonobstructing right renal calculi; four new since 2008. Two nonobstructing left renal calculi; one new since 2008. ?? 2. Evaluation of UVJ region stones not possible due to severe streak artifact from bilateral hip prosthesis. 3. No hydronephrosis or perinephric stranding. Film and interpretation reviewed by the attending Procedure Note Lizbet Bunn MD - 06/18/[address] Abdomen / Pelvis Without Contrast Clinical History nephrolithiasis evaluate for kidney stone Comparison 04/27/2009. Technique Helical images of the abdomen pelvis were performed without contrast.Coronal and sagittal reformatted images were generated. Findings Six tiny nonobstructing renal calculi are seen in the rightcorticomedullary junction, four of which are new compared to the study performed on04/27/12. Two tiny nonobstructing stones are seen in the left kidney, one new sinceprior. No hydronephrosis or perinephric stranding is identified. Evaluation for ureterovesical junction region stones is not possible due to streakartifact from bilateral hip prostheses. The bladder is smooth in contour and nondistended. The lung bases are clear. The liver is normal in appearance. A fewgallstones are noted in the nondistended gallbladder. No pericholecystic fluid or gallbladder wall thickening. The spleen, adrenal glands, and pancreas are unremarkable. No abdominal or pelvic lymphadenopathy. No dilated loopsof large or small bowel. Bilateral hip prosthesis are noted. Nointraperitoneal free air or free fluid. Impression 1. Six tiny nonobstructing right renal calculi; four new since 2008. Two nonobstructing left renal calculi; one new since 2008. 2. Evaluation of UVJ region stones not possible due to severe streakartifact from bilateral hip prosthesis. 3. No hydronephrosis or perinephric stranding. Film and interpretation reviewed by the attending Fabricio Aranda Jr., MD IMG CT ORDERABLES documented in this encounter Visit Diagnoses Diagnosis Nephrolithiasis- Primary Calculus of kidney Phimosis Redundant prepuce and phimosis Nephrolithiasis Calculus of kidney documented in this encounter Care Teams Dramatic Teacher Relationship Specialty Start Date End Date hCerise Staples MD [address] [place] [address] PCP - General 07/31/10 10/04/19 documented as of this encounter
--- OUTSIDE RECORDS SUMMARY | 2024-08-20 06:26 | XMS_ITS | Encounter Summary ---
Author Organization [facility] Address [facility] [place] [address] Care Team Providers Care Client Service Associate Name Role Phone Cherise Staples MD Primary Care Provider [phone] Reason for Visit * Reason Onset Date Comments Questions 11/28/2011 Encounter Details Date Type Department Care Team (Late st Contact Info) Description 11/28/2011 [place] [address] Fabricio Aranda Jr., MD [facility] [place] [address] Questions Social History Tobacco Use Types Packs/Day Years Used Date Smoking Tobacco: Former Smokeless Tobacco: Never Sex and Gender Information Value Date Recorded Sex Assigned at Not on file Gender Identity Not on file Sexual Orientation Not on file documented as of this encounter Miscellaneous Notes * Telephone Encounter - Berna Salas LPN - 11/28/2011 2:35 PM EDT Mr. Crouch is to have serum potassium drawn by his PCP per Dr. Aranda as he is on Postassium supplements. In discussion with his PCP's office, he has not had his Potassium drawn. Message left on home phone to call back. In discussion with Mr. Crouch today, he notes that he does not have an appointment with his PCP anytime soon. He is able to go to [facility] to get his Potassium drawn andwill go early next week to have this done. To have results faxed to Dr. Aranda. documented in this encounter Plan of Treatment Not on file documented as of this encounter Visit Diagnoses Not on filedocumented in this encounter Care Teams Client Service Associate Relationship Specialty Start Date End Date Cherise Staples MD [address] [place] [id number] PCP - General 07/31/10 10/04/19 documented as of this encounter
--- OUTSIDE RECORDS SUMMARY | 2024-08-20 06:26 | XMS_ITS | Encounter Summary ---
Author Organization [facility] [place] [address] Care Team Providers Care University Manager Name Role Phone Cherise Staples MD Primary Care Provider [phone] Reason for Visit * Reason Comments Medication Refill Encounter Details Date Type Department Care Team (Late st Contact Info) Description 01/25/2014 [place] [address] Fabricio Aranda Jr., MD [facility] [place] [address] Nephrolithiasis (Primary Dx) Social History Tobacco Use Types Packs/Day Years Used Date Smoking Tobacco: Former Smokeless Tobacco: Never Sex and Gender Information Value Date Recorded Sex Assigned at Not on file Gender Identity Not on file Sexual Orientation Not on file documented as of this encounter Plan of Treatment Not on file documented as of this encounter Visit Diagnoses Diagnosis Nephrolithiasis- Primary Calculus of kidney documented in this encounter Care Teams University Manager Relationship Specialty Start Date End Date Cherise Staples MD [address] [place], [place] [address] PCP - General 07/31/10 10/04/19 documented as of this encounter
--- OUTSIDE RECORDS SUMMARY | 2024-08-20 06:26 | XMS_ITS | Encounter Summary ---
Author Organization [facility] Address [facility] [place] [address] Care Team Providers Care Senior Project Architect Name Role Phone Cherise Staples MD Primary Care Provider [phone] Encounter Details Date Type Department Care Team (Late st Contact Info) Description 09/09/2014 2:46 PM EST Anesthesia Event [place] [address] Pippa Mendoza MD [facility] [place] [address] Anesthesia Record Procedure Summary Procedure Name Responsible Anesthesiologist Anesthesia Start Time Anesthesia Stop Time ERCP (WRVU 5.85) (Trunk) Pippa Mendoza MD 09/09/14 1446 09/09/14 1655 Events Date Time Event Comment 09/09/2014 1313 1446 Start 1452 AN Verify 1452 An Start Data 1503 An Induction 1505 An Intubation 1506 Quick Note Very difficult intubation even with glide kept slipping under tongue. I was able to mask vent with large oral airway 1507 Anesthesia Ready 1611 Quick Note to pacu monitor ed and intubated with staff 1617 an stop data 1619 an stop data 1655 Stop Meds Name Total PHENYLephrine 320 mcg Ciprofloxacin 400 mg glucagon (human recombinant) 1 mg Metoprolol 5 mg lactated ringers infusion 0 mL * Agents Name O2 Air Sevoflurane (et) * Blood No blood administrations on file. Lines, Drains, and Airways Type Details Placement Removal (RETIRED) Peripheral IV Line - Single Lumen 09/09/14; cephalic vein right (lateral side of arm); 20 gauge; 09/14/14; 205609/09/14 0000 by Elizabeth Mike RN 09/14/142056 by Annemarie Mock RN ETT Mask Ventilation: Difficult (3); ETT Type: Cuffed, Oral; ETT Size: 7.5 mm; Mac Blade: 4; Indirect: Video; Notes: Asleep, Pre-O2, Cricoid Pressure, Stylette; Attempts: 2; Laryngoscopy Grade: 4; ETT Placement Verified By: Auscultation, Capnometry, Visual; Secured at Teeth: 23 cm; Inserted by: muna amaral; Removal Date: 09/12/14; Removal Time: 1040 09/09/14 1505 by Shaheen Carvajal, [employer] 09/12/14 1040 by Suni Steele RRT documented in this encounter Social History Tobacco Use Types Packs/Day Years Used Date Smoking Tobacco: Former Smokeless Tobacco: Never Sex and Gender Information Value Date Recorded Sex Assigned at Not on file Gender Identity Not on file Sexual Orientation Not on file documented as of this encounter OR Notes * Anesthesia Postprocedure Evaluation - Pippa Mendoza MD - 09/09/2014 4:59 PM EST Patient: Jaime Crouch Procedure(s) Performed: Procedure(s): ERCP Actual Anesthetic: general Patient location: PACU Post-op pain: He is intubated and sedated Post-op nausea: no nausea or vomiting Last Vitals: Filed Vitals: 09/09/14 1246 BP: 126/84 Pulse: 110 Temp: 36.6 ??C (97.9 ??F) Resp: 16 Post-op cardiovascular and respiratory status: patient will remain ventilated in the immediate post-op period because of difficulty with intubation and what appears to be pulmonary edema fluid in ETT. Level of consciousness: sedated Complications: There were no complications related to the ERCP itself. During the difficult intubation he had a small laceration on the right side of his tongue which occurred because of difficulty with placing the laryngoscope into his mouth because of his obese body habitus. This injury was unavoidable in this instance and is inherent to the procedure of placing an ETT in a morbidly obese patient with a difficult airway. The bleeding had stopped by the time he was transferred to the PACU. Fluid Status: fluid overload opn CXR. Patient will remain intubated and is being transferred to theICU service at this time for further management of his cardiorespiratory status. * Anesthesia Preprocedure Evaluation - Pippa Mendoza MD - 09/09/2014 1:08 PM EST Pre-Anesthesia Evaluation for: Jaime hanley 69 y.o. male. Procedure(s): ERCP Patient Active Problem List Diagnosis ??? Phimosis ??? Nephrolithiasis Past Medical History Diagnosis Date ??? Kidney stone Past Surgical History Procedure Laterality Date ??? Lithotripsy History Substance Use Topics ??? Smoking status: Former Smoker ??? Smokeless tobacco: Never Used ??? Alcohol Use: Not on file History Drug Use Not on file No Known Allergies Medications: MAR and/or home medications have been reviewed. Physical Exam: Filed Vitals: 09/09/14 1246 BP: 126/84 Pulse: 110 Temp: 36.6 ??C (97.9 ??F) Resp: 16 There is no weight on file to calculate BMI. Airway Assessment: Mallampati: III TM distance: >3 FB Neck ROM: full Cardiovascular Assessment: Pulmonary Assessment: Dental Assessment: - normal exam Misc Assessment: Anesthesia Plan: ASA 3 general, with a(n) intravenous induction Morbidly obese 69 year old male with CBD stone is scheduled for ERCP/EUS. He has a history of CAD with IN at age 52 and [address]. He has had no recent angina, can walk a flight of stairs slowly, does not use home O2. Non-smoker. Has TOM on CPAP which he brought with him. No DM. Plan is forGETA. We have to do the procedure in radiology because procedure table in endo cannot support his we ight. History of PE and Afib on Coumadin which has been transitioned to Lovenox which he received this morning. Region - Other Informed Consent: Anesthetic plan and risks discussed with patient. Plan discussed with [employer]. Tashia. Assessment: documented in this encounter Plan of Treatment Not on file documented as of this encounter Visit Diagnoses Not on filedocumented in this encounter Administered Medications Inactive Administered Medications - up to 3 most recent administrations Medication Order MAR Action Action Date Dose Rate Site ciprofloxacin (CIPRO) 400mg in dextrose 5% 200mL PRN, Starting on Fri09/09/14 at 1528, Until Fri09/09/14 at 1655, Administer over 60 Minutes, Anesthesia Intra-op Given 09/09/2014 3:28 PM EST 400 mg glucagon (human recombinant) injection PRN, Low blood sugar, Starting on Fri09/09/14 at 1528, Until Fri09/09/14 at 1655, Anesthesia Intra-op Given 09/09/2014 3:28 PM EST 1 mg lactated ringers infusion 100 mL/hr, Intravenous, CONTINUOUS, Starting on Fri09/09/14 at 1315, Until Fri09/09/14 at 1809, Endoscopy (Day of Procedure) Continued Bag 09/09/2014 4:18 PM EST 100 mL/hr 100 mL/hr New Bag 09/09/2014 3:03 PM EST New Bag 09/09/2014 12:53 PM EST 100 mL/hr 100 mL/hr metoprolol (LOPRESSOR) injection PRN, Starting on Fri09/09/14 at 1529, Until Fri09/09/14 at 1655, High Blood Pressure, Anesthesia Intra-op, Routine Given 09/09/2014 3:40 PM EST 1 mg Given 09/09/2014 3:34 PM EST 2 mg Given 09/09/2014 3:29 PM EST 2 mg PHENYLephrine HCl in NS (PF) (INDIRA-SYNEPHRINE) 0.8 mg/10 mL (80 mcg/mL) injection Syrg PRN, Starting on Fri09/09/14 at 1522, Until Fri09/09/14 at 1655, Anesthesia Intra-op, Routine Given 09/09/2014 3:29 PM EST 160 mcg Given 09/09/2014 3:22 PM EST 160 mcg documented in this encounter Care Teams Senior Project Architect Relationship Specialty Start Date End Date Cherise Staples MD [address] [place] [id number] PCP - General 07/31/10 10/04/19 documented as of this encounter
--- OUTSIDE RECORDS SUMMARY | 2024-08-20 06:26 | XMS_ITS | Encounter Summary ---
Author Organization [facility] [place] [address] Care Team Providers Care Follow Up Clerk Name Role Phone Cherise Staples MD Primary Care Provider [phone] Encounter Details Date Type Department Care Team (Late st Contact Info) Description 01/13/2013 [place] [address] Fabricio Aranda Jr., MD [facility] [address] Calculus of kidney (Primary Dx) Social History Tobacco Use Types Packs/Day Years Used Date Smoking Tobacco: Former Smokeless Tobacco: Never Sex and Gender Information Value Date Recorded Sex Assigned at Not on file Gender Identity Not on file Sexual Orientation Not on file documented as of this encounter Plan of Treatment Not on file documented as of this encounter Visit Diagnoses Diagnosis Calculus of kidney- Primary documented in this encounter Care Teams Follow Up Clerk Relationship Specialty Start Date End Date Cherise Staples MD [address] [place], [place] [address] PCP - General 07/31/10 10/04/19 documented as of this encounter
--- OUTSIDE RECORDS SUMMARY | 2024-08-20 06:26 | XMS_ITS | Encounter Summary ---
Author Organization [facility] [place] [address] Care Team Providers Care Brake Repairer Railroad Name Role Phone Cherise Staples MD Primary Care Provider [phone] Encounter Details Date Type Department Care Team (Late st Contact Info) Description 09/09/2014 1:00 PM EST - 09/09/2014 2:00 PM EST Surgery [place] [address] Nick Broussard MD [facility] [place] [address] ERCP (WRVU 5.85) Social History Tobacco Use Types Packs/Day [...] ??? ASCVD (arteriosclerotic cardiovascular disease) 1992 first NV 1992, stent to LAD in 2006 ??? Atrial fibrillation chronic anticoagulation ??? Nephrolithiasis hx of nephrostomy tube and posterior approach removal ??? HLD (hyperlipidemia) ??? Chronic venous insufficiency ??? TOM on CPAP ??? DVT (deep venous thrombosis) ??? PE (pulmonary embolism) Procedures: ERCP 09/09/14 (see 'Studies' below for details). History of Presentation: 69 man w/ ASCVD s/p stent to LAD 2006 and NV ~1992, Afib on warfarin, and obesity with TOM on CPAP nightly who presents to [facility] on 09/07 with new, sudden onset RUQ [...] patient was discussed with GI here at [facility] and plan made was to perform ERCP to relieve what mighthave been a picture of ascending cholangitis versus acute cholecystitis. On arrival to [facility], the day of admission, he was hemodynamically [...] Apparantly he had Vit K at the [facility] priro to transsfer here. Upon restarting his coumadin, [...] 15.2 PLATELET 245 212 201 Recent Labs 09/19/1421209/18/1420309/17/1424409/16/1425809/15/14251 NA 137 141 141 143 142 K 4.1 4.1 3.9 3.9 3.8 CL 101 102 102 104 103 CO2 24 26 27 26 26 BUN 20 23* 22* 25* 24* CREATININE 0.90 0.91 0.91 1.02 0.99 GLUCOSE 105 105 106 118 108 Recent Labs 09/20/1423809/19/1421209/18/1420309/17/1424409/16/14258 CALCIUM -- 9.6 9.5 9.5 9.4 MAGNESIUM 0.85 -- -- -- 0.87 PHOS 3.1 -- -- -- -- No results found for this basename: CK, TROPONINT, in the last 168 hours Recent Labs 09/17/1424409/16/1425809/15/14251 AST 33 35 36 ALT 55 59* 67* ALKPHOS 120 131* 133* BILITOT 1.3 1.4* 1.5* BILIDIR 0.6* 0.6* 0.7* Recent Labs 09/20/1423809/19/1421209/18/14203 INR 1.1 1.0 1.0 Studies: ERCP-09/09/14 Findings: The windows server architect film was normal and the procedure was [...] Date Signed: 09/19/2014 Karmen Silvestre DO NPI#: [id number] Questions: Vendor Name/Contact information: [employer]. Comment - [facility] office Referral to Home Health - at DISCHARGE [[id number] CPT(R)] As directed Process Instructions: Scheduling Instructions: [...] nurse practitioner, clinical nurse specialist or physician's clinic office assistant who is working directly with them, [...] PCP: CHERISE STAPLES MD [address] [place] [address] All VNA agencies which cover the area of patient's residence have been reviewed, either verbally hortencia writing, and patient/family have chosen the indicated home health care agency for home services. [facility]. PHONE: [phone] FAX: [phone] RN - to assess CP/GI//nutrition/hydration/elimination. Check vital [...] ADL retraining. Home safety evaluation. Assess for GLACIOLOGIST needs. Teach energy conservation techniques. GLACIOLOGIST - to assist with personal care. Questions: Agency name and contact information: [facility] Patient location post discharge: [facility] What services are requested: Registered Nurse Physical Therapy Occupational Therapy Home Health Aide Start date: 09/20/2014 Responsible MD post discharge contact info: home PCP Referral to Home Health - at DISCHARGE [[id number] CPT(R)] As directed Process Instructions: Scheduling Instructions: [...] nurse practitioner, clinical nurse specialist or physician's clinic office assistant who is working directly with them, [...] PCP: CHERISE STAPLES MD [address] [place] [address] All A agencies which cover the area of patient's residence have been reviewed, either verbally hortencia writing, and patient/family have chosen the indicated home health care agency for home services. [facility] [employer] [facility]. PHONE: [phone] FAX: [phone] RN - to assess CP/GI//nutrition/hydration/elimination. Check vital [...] pt's pcp, CHERISE STAPLES MD at number [phone] PT - home exercise program, strengthening exercises. Home safety evaluation. Gait retraining program. OT - assess for DME needs and ADL modifications. ADL retraining. Home safety evaluation. Assess for GLACIOLOGIST needs. Teach energy conservation techniques. GLACIOLOGIST - to assist with personal care. Questions: Agency name and contact information: [facility] Patient location post discharge: home What services are requested: Registered Nurse Occupational Therapy Home Health Aide Start date: 09/20/2014 Responsible MD post discharge contact info: CHERISE STAPLES MD, [address], [place] [address], Discharge Instructions: Patient Instructions Instruction after leaving [...] not take or discontinue any prescription or jwhd-fwl-lsoixkw medications without asking your doctor or pharmacist [...] Patients Home Date Signed: 09/19/2014 Karmen Silvestre NPI#: [id number] Questions: Vendor Name/Contact information: [employer] Comment - [facility] office Referral to Home Health - at DISCHARGE [[id number] CPT(R)] As directed Process Instructions: Scheduling Instructions: [...] nurse practitioner, clinical nurse specialist or physician's clinic office assistant who is working directly with them, [...] PCP: CHERISE STAPLES MD [address] [place] [address] All VNA agencies which cover the area of patient's residence have been reviewed, either verbally hortencia writing, and patient/family have chosen the indicated home health care agency for home services. [facility]. PHONE: [phone] FAX: [phone] RN - to assess CP/GI//nutrition/hydration/elimination. Check vital [...] ADL retraining. Home safety evaluation. Assess for GLACIOLOGIST needs. Teach energy conservation techniques. GLACIOLOGIST - to assist with personal care. Questions: Agency name and contact information: [facility] Patient location post discharge: [facility] What services are requested: Registered Nurse Physical Therapy Occupational Therapy Home Health Aide Start date: 09/20/2014 Responsible MD post discharge contact info: home PCP Referral to Home Health - at DISCHARGE [[id number] CPT(R)] As directed Process Instructions: Scheduling Instructions: [...] nurse practitioner, clinical nurse specialist or physician's clinic office assistant who is working directly with them, [...] PCP: CHERISE STAPLES MD [address] [place] [address] All VNA agencies which cover the area of patient's residence have been reviewed, either verbally hortencia writing, and patient/family have chosen the indicated home health care agency for home services. [facility]. PHONE: [phone] FAX: [phone] RN - to assess CP/GI//nutrition/hydration/elimination. Check vital [...] pt's pcp, CHERISE STAPLES MD at number [phone] PT - home exercise program, strengthening exercises. Home safety evaluation. Gait retraining program. OT - assess for DME needs and ADL modifications. ADL retraining. Home safety evaluation. Assess for GLACIOLOGIST needs. Teach energy conservation techniques. GLACIOLOGIST - to assist with personal care. Questions: Agency name and contact information: [facility] Patient location post discharge: home What services are requested: Registered Nurse Occupational Therapy Home Health Aide Start date: 09/20/2014 Responsible MD post discharge contact info: CHERISE STAPLES MD, [address], [place] [address], For questions regarding this document or issues relating to this hospitalization on the Medical Service, please contact your inpatient physician through the [facility] Receiving Team Member . Issues afterhours and on weekends will be handled by the Hospitalist staff on-call. Greater than 30 min spent coordinating pt care. Phoned PCP Dr Staples - unavailable, d/w nursing, reviewed to hosp, course, tx plans. She confirms they will follow INR and adjust medication Including coumadin & lovenox Signed:KARMEN SILVESTRE DO Cc: Dr Cherise Staples fax [phone] documented in this encounter Discharge Instructions * [...] not take or discontinue any prescription or lydk-otr-eihdrrb medications without asking your doctor or pharmacist [...] Everywhere. * ACUTE CHOLECYSTITIS : GENERAL INFO (LITHUANIAN) * ATRIAL FIBRILLATION (LITHUANIAN) * SLEEP APNEA (LITHUANIAN) * WEIGHT: OVERWEIGHT (LITHUANIAN) * ENOXAPARIN (LOVENOX) (LITHUANIAN) * VITAMIN K DIET (LITHUANIAN) documented in this encounter Medications at Time [...] to pts home pharmacy and they will sweet pickle maker on the way. Hospital bed to bedelivered [...] discharged home without issue. * Rosalva Finn BENCH MANAGER - 09/20/2014 2:06 PM EST Physical Therapy Note Treatment # 5 Patient profile: Patient is a 69 y.o. male of Karmen Leyva DO, admitted in transfer on09/09/2014 for ERCP to r/o acute cholecystitis. Pt intubated for procedure and required several days to improve lung function for extubation. 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 Objective: Pt seen for self snf management to address goals. was present. Vital [...] minutes. Total timed interventions: 10 minutes. Pager: [phone] ROSALVA FINN, BENCH MANAGER 09/20/2014 Physical Therapy Rehabilitation Department * Karmen Silvestre DO - 09/20/2014 1:35 PM EST Hospital [...] spent >30 minutes (Day of Discharge Code 64933) involved in the final examination of the [...] AM EST OFFICE OF CARE MANAGEMENT CLINICAL TOBACCO SIZER PROGRESS NOTE CRC: Madison Stringer RN Pager #[phone] CRC Service: [facility] Hospitalist Pager #[phone] Reviewed record and discussed pt in rounds with Charge/Resource RN, back shoe operator, PT, CRC and with ProviderTeam. e-DH reviewed. Report received from Dr. Silvestre Patient Is medically ready for discharge to home with VNA service. Called patient's room to follow up r/t [facility] obtaining a bariatric bed from different office. Patient informed CRC that he and his have decided to use [facility] and do not need an order written from MD. They have declined this CRC's procurement of bariatric bed through [facility], as discussed yesterday, as they have made other arrangements. It is to be delivered to patients house today per patient. Patient states he does not require any more of this CRC's services. I have set up VNA services through [facility] per patient request. [facility] [employer] [facility]. PHONE: [phone] FAX: [phone] [facility]'s answering service has been notified of cancellation [...] ??? ASCVD (arteriosclerotic cardiovascular disease) 1993 first NV 1992, stent to LAD in 2006 ??? [...] reports that pt given vit K at [facility] prior to his transfer here. Physical Exam: [...] - reports pt had vit K at H which will make control difficult -stop DVT [...] for hosp bed signed Full code Pager [phone] IPI Certification I certify that I am a D-H credentialed attending provider with admitting privileges and that the patient meets or has met medical necessity to require an inpatient IPI level of care meeting a minimumof two midnights or is on the [facility] inpatient only procedure list (status C) due to: monitoring of fluid status and the need for diuresis; iv antibiotics for cholecystitis vs cholangitis (completing today); titration of rate control regimen; titration of antihypertensive regimen. KARMEN SILVESTRE DO 09/19/2014 * Madison Stringer RN - 09/19/2014 1:05 PM EST OFFICE OF CARE MANAGEMENT CLINICAL TOBACCO SIZER PROGRESS NOTE CRC: Madison Stringer RN Pager #[phone] CRC Service: GI Hospitalist pager #[phone] Reviewed record and discussed pt in rounds with Charge/Resource RN, back shoe operator, PT, CRC and with ProviderTeam. e-DH reviewed. Report received from Dr. Donovan Silvestre Patient continues to require acute inpatient care. Met with patient at bedside. Patient worked with PT this morning and may be able to manage at home.Patients Leah has already spoken to [facility]. They are aware that insurance may not cover cost and they are willing to rent a bed they also would like an over the bed table. [facility] Leah has been speaking with [facility] at [facility] Order has been pended and booking [facility]. Patient does have a walker and cane at home and Leah will bring it in tomorrow to see if it is appropriate DME for patient size. If they are not the correct size patient and would like to use [facility] to obtain additional DME. Patient would like to use VNA services, PT/OT/RN/GLACIOLOGIST [facility]. PHONE: [phone] FAX: [phone] Plan: CRC will continue to follow for [...] Patient extubated and transferred from ICU to [facility] on 09/13/2014. Patient overall doing well with [...] with some SOB-though mostly in 90s-110s), haque diann Subjective: I'll do whatever you need me to do. Objective: Patient seen for therapeutic activities, with patient's present, and demonstrated the following: ?? UPDATE to home setup of main level: 3 steps to enter with newly installed railing on both sides.1/2 bathroom (NO bedroom) on main level, though spoke with [employer] during session and plans to have hospital [...] main level of home initially (1/2 bath, rental hospital bed to be delivered, kitchen, dining/living room). Activities of Daily Living: UB dressing: Patient requiring minimal assistance to don hospital gown and independent in doffing. LB dressing: [...] Patient ascended and descended 3 steps with BENCH MANAGER, with use of rail, cane, and contact guard-see BENCH MANAGER note for detail. Stand to sit: Modified [...] and treatment recommendations discussed with RN, PT, BENCH MANAGER, and other staff. 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 Objective: Pt seen with OT for exercise and self snf management to address goals. was present. Vital [...] minutes. Total timed interventions: 25 minutes. Pager: [phone] ROSALVA FINN, BENCH MANAGER 09/19/2014 Physical Therapy Rehabilitation Department * Katy [...] ??? ASCVD (arteriosclerotic cardiovascular disease) 1993 first NV 1992, stent to LAD in 2006 ??? [...] care All ? answered Full code Pager [phone] IPI Certification I certify that I am a D-H credentialed attending provider with admitting privileges and that the patient meets or has met medical necessity to require an inpatient IPI level of care meeting a minimumof two midnights or is on the [facility] inpatient only procedure list (status C) due [...] ??? ASCVD (arteriosclerotic cardiovascular disease) 1993 first NV 1992, stent to LAD in 2006 ??? [...] rehab coordinated and improved Full code Pager [phone] IPI Certification I certify that I am a D-H credentialed attending provider with admitting privileges and that the patient meets or has met medical necessity to require an inpatient IPI level of care meeting a minimumof two midnights or is on the [facility] inpatient only procedure list (status C) due to: monitoring of fluid status and the need for diuresis; iv antibiotics for cholecystitis vs cholangitis (completing today); titration of rate control regimen; titration of antihypertensive regimen. KARMEN SILVESTRE, 09/17/2014 * Sarah Conner RN - 09/17/2014 [...] Masimo compliance. 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 * Andre Martinez, DRILL PRESS HAND - 09/16/2014 2:53 PM EST Speech-Language Pathology [...] any questions or concerns. Andre Martinez MS, CCC-DRILL PRESS HAND Inpatient Rehabilitation Medicine Pager:#[phone] * Espinoza Crawford MD - 09/16/2014 10:30 [...] ??? ASCVD (arteriosclerotic cardiovascular disease) 1993 first NV 1992, stent to LAD in 2006 ??? [...] on progress with PT Full code Pager [phone] IPI Certification I certify that I am a D-H credentialed attending provider with admitting privileges and that the patient meets or has met medical necessity to require an inpatient IPI level of care meeting a minimumof two midnights or is on the [facility] inpatient only procedure list (status C) due [...] Continue cardiac monitoring and Masimo compliance. * Beran Salas RN - 09/15/2014 6:06 PM EST [...] Jeffrey Parry - 09/15/2014 3:36 PM EST Boiler Tube Reamer Encounter Note Patient Name: Jaime Crouch : [id number] MR#: [id number] Admit Date: 09/09/2014 6:20 PM Hospital Day 6 days Narrative:Visited to introduce and assess acceptance of Boiler Tube Reamer services.Pt was awake, alert oriented, pleasant and [...] better and go to work. Pt loves Sikh spirituality and that is source of comfort and peace. Pt is accepting sufferings as a part of human life and deal with it. Intervention and Outcome:Provided emotional, spiritual support and encouraging presence. Pt expressed thankfulness for visiting. Boiler Tube Reamer services accepted.Conversation to build trusting relationship.Provided pastoral [...] ??? ASCVD (arteriosclerotic cardiovascular disease) 1993 first NV 1992, stent to LAD in 2006 ??? [...] - SCD's, prophylactic lovenox Full code Pager [phone] IPI Certification I certify that I am a D-H credentialed attending provider with admitting privileges and that the patient meets or has met medical necessity to require an inpatient IPI level of care meeting a minimumof two midnights or is on the CMS inpatient only procedure list (status C) due to: monitoring of fluid status given an inability to regulate fluid balance and the need for administration or restriction of fluids and acute respiratory compromise and/or hypoxia requiring assessment every 4 hours and the ability to respond immediately to the patient's need; iv antibiotics for cholecystitis vs cholangitis. 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 * Bruna Duron, JACOB - 09/14/2014 6:29 PM EST Cardiac/Telemetry Nursing Progress Note [id number] Subjective: Denies CP, palpitations, nausea. Reports SOB [...] ??? ASCVD (arteriosclerotic cardiovascular disease) 1993 first NV 1992, stent to LAD in 2006 ??? [...] lovenox at proph dose Full code Pager [phone] IPI Certification I certify that I am a D-H credentialed attending provider with admitting privileges and that the patient meets or has met medical necessity to require an inpatient IPI level of care meeting a minimumof two midnights or is on the [facility] inpatient only procedure list (status C) due [...] detailed information. 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; done slowly Baseline Mobility: independent per spouse; works daily Equipment at home: no routine DME Precautions/Special Considerations: fall risk; rapid a-fib; bariatric; tender shins-mepilex Subjective: I'd like to stand up I need to sit Objective: pt seen in am with OT, seen in pm with BENCH MANAGER for bed mobility, EOB sitting and standing [...] minutes am and pm with OT and BENCH MANAGER Total timed interventions: 24 minutes TEF Pager: [phone] RULA JONES, PT 09/14/2014 Physical Therapy Rehabilitation Department * Andre Martinez, DRILL PRESS HAND - 09/14/2014 1:47 PM EST Speech-Language Pathology [...] any questions or concerns. Andre Martinez MS, CCC-DRILL PRESS HAND Inpatient Rehabilitation Medicine Pager:#[phone] * Madison Stringer RN - 09/14/2014 10:59 AM EST OFFICE OF CARE MANAGEMENT CLINICAL TOBACCO SIZER PROGRESS NOTE CRC: Madison Stringer RN Pager #[phone] CRC Service:GI Hospitalist pager #[phone] Reviewed record and discussed pt in rounds with Charge/Resource RN, back shoe operator, PT, CRC and with ProviderTeam. [facility] reviewed. Report received from Dr. Crawford Patient continues to require acute inpatient care. Patient is currently receiving IV Abx. 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 He drives, hasa second floor office in town; per climbs [...] ?? Met with patient/family at bedside. Discussed [facility], Office of Care Management letter from the Auger Machine Offbearer pertaining to rehab referrals.. ?? Reviewed levels of rehab including SNF, swing, acute and LTAC. ?? A list that serves the geographical area which the patient resides or the geographical area requested has been provided through [employer] search. ?? Requested patient/family provide at least three choices for referral. ?? Patient/family [facility] to [facility]. [facility] [address] [place], [place] [address] 2. [facility] [address] [place], [place] [id number] 3. [facility] PHONE: [phone] FAX: [phone] Note routed to Crab Backer who will communicate referrals to facilities via [employer] program. Discussed transportation options with patient and [...] listed in patients chart. I will ask CAN HANDLER to look into insurance coveragefor the family. Plan: CRC will continue to follow for coordination of care and to facilitate discharge planning. * Eldon Wilson RCP - 09/14/2014 4:58 AM EST Pt wore home unit overnight with NARD. Pt tolerates well. Will continue to monitor. ER * Miri Munoz RN - 09/13/2014 8:15 [...] 2 hr. BP elevated at 0100 186/95. 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 Appetite: Pt reports having all of his breakfast this morning Chewing/Swallowing: See DRILL PRESS HAND note N/V: No issues per pt O: Patient Active Problem List Diagnosis Code ??? Nephrolithiasis 592.0 ??? Phimosis 605 ??? Hypertension 401.9 ??? Cholecystitis 575.10 ??? Atrial fibrillation 427.31 ??? TOM on CPAP 327.23 Past Medical History Diagnosis Date ??? Kidney stone ??? Hypertension ??? ASCVD (arteriosclerotic cardiovascular disease) 1993 first NV 1992, stent to LAD in 2006 ??? [...] to low Na+. Recommend a 2 gm Na+,[facility] (Heart Healthy) diet. Pt just extubated yesterday and still fairly tired today. Dicussed that weight loss and following a heart healthy diet would be [place] [facility]. Nutrition will continue to follow pt and [...] any questions or concerns. Andre Martinez, MS, [facility] Inpatient Rehabilitation Medicine Pager:#[phone] * Espinoza Crawford MD - 09/13/2014 10:30 [...] ??? ASCVD (arteriosclerotic cardiovascular disease) 1993 first NV 1992, stent to LAD in 2006 ??? [...] today given bleeding issues Full code Pager [phone] IPI Certification I certify that I am a D-H credentialed attending provider with admitting privileges and that the patient meets or has met medical necessity to require an inpatient IPI level of care meeting a minimumof two midnights or is on the [facility] inpatient only procedure list (status C) due [...] parameters for telemetry monitoring (low 40bpm - [id number]) as they feel it is too great [...] ERCP 2. Pulmonary edema, clinically resolved 3. TOM on CPAP at home 4. [...] leak test. Continued diuresis. Trial of extubation. [place] scope available for emergent reintubation if required [...] the unit. --Tien Davis MD * Andre Martinez, BANDAR - 09/12/2014 1:48 PM EST Speech-Language Pathology Bedside Swallow Evaluation 1947 Total Treatment Time: 55 min. swallow eval Total Timed Code Treatment: 0 min. Medical History: Order received and completed with this 69 y.o. male admitted on 09/09/2014 from [facility] for ERCP secondary to clinical picture consistent with acute cholecystitis vs ascending cholangitis. Pt found to be difficult to intubate. Pt being treated with Zosyn for acute cholecystitis, Pt is not a candidate for a cholecystectomy at present secondary to likely GI infection. Pt remained intubated following procedure secondary to concern for pulmonary edema. Pt extubated to ID this AM. CXR performed 09/11/14 revealed low lung volumes with pulmonary edema stable or slightly improved, with mild patchy left lobeatelectasis or pneumonia. Pt's past medical history significant for TOM, requiring CPAP at home. Speech consulted to perform bedside swallow evaluation. Past Medical History: Past Medical History Diagnosis Date ??? Kidney stone ??? Hypertension ??? ASCVD (arteriosclerotic cardiovascular disease) 1993 first NV 1992, stent to LAD in 2006 ??? [...] to sit upright; Functional Oral Intake Scale (Lowman 2005) 1 - No oral intake 2 [...] of dysphagiasoft solids and nectar thickened liquids. DRILL PRESS HAND to monitor Pt closely and upgrade as [...] any questions or concerns. Andre Martinez MS, [facility]LL PR[facility] Inpatient Rehabilitation Medicine Pager:#[phone] * Debbie Oconnor MD - 09/12/2014 1:11 PM EST Transfer Summary ID: 69 man w/ ASCVD s/p stent to [facility] 2006 and NV ~1992, Afib on warfarin, and obesity with TOM on CPAP nightly who presented originally with a clinical picture of acute cholecystitis on 09/07 and underwent an ERCP here on 09/09 and because he was a difficult intubation and concern for pulmonary edema, he remained intubated after the procedure. History of Present Illness: 69 man w/ ASCVD s/p stent to LAD 2006 and NV ~1992, Afib on warfarin, and obesity with TOM on CPAP nightly who presents to [facility] on 09/07 with new, sudden onset RUQ [...] patient was discussed with GI here at [facility] and plan made was to perform ERCP to relieve what mighthave been a picture of ascending cholangitis versus acute cholecystitis. On arrival to [facility], the day of admission, he was hemodynamically [...] with acute cholecystitis vs ascending cholangitis to [facility] on 09/07 and was transferred [...] OCONNOR MD PGY1 Internal Medicine Critical Care [place] Service #[id number] * May Linares RN - 09/12/2014 10:43 AM EST Pt extubated at 0943, anaesthesia at bedside with resp for precaution; extubated to 6 L via NC, later titrated down. He has a strong productive cough. Lung sounds remain clear in the upper bases and diminished in the lower bases. Pt talking with and A&O x4, reoriented to exact time. ER * Sherman Duron, PT - 09/12/2014 10:32 AM EST Physical Therapy Critical Care Referral received. eDH reviewed. Eval and Rx to begin pending pt availability (pt prefers to be seen later in day). Documentation to follow in eDH. Sherman Duron, PT [id number] Amita Guzman RN - 09/12/2014 9:17 AM EST CLINICAL TOBACCO SIZER (CRC) Office of Care Management Amita Fox RN, CRC Phone [phone] Pager # [phone] INITIAL ASSESSMENT: Reviewed record; interviewed patient and his Leah; services accepted. 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 INSURANCE COVERAGE/FINANCIAL ISSUES: [employer] [facility] ADVANCE DIRECTIVES: Pt has AD's. I have sent a copy to [facility] to be scanned into ED. Names as DPOAH. REHAB TEAM CONSULTS: PT referral has been placed. CAN HANDLER REFERRAL: has asked if CAN HANDLER could assist with notarizing a POA document that was drawn up by pt's associate attorney, and just needs to be signed. [...] Jaime Crouch Service: Critical Care Medicine - [place] Team Responsible Attending: Cynthia Davis Jr., MD PCP: CHERISE STAPLES MD PCP phone #: [phone] ID/Chief Complaint: 69 man w/ ASCVD s/p stent to LAD 2006 and NV ~1992, Afib on warfarin, and obesity with [...] Ab: neg Microbiology: Blood Culture- Pending at [facility] Urine Culture- Pending at [facility] Imaging CXR 09/12/13: unchanged from yesterday, redemonstration of low lung volumes and pulmonary edema ASSESSMENT: 69 man w/ ASCVD s/p stent to LAD 2006 and NV ~1992, Afib on warfarin, and obesity with [...] OCONNOR MD PGY1 Internal Medicine Team pager [phone] 09/12/2014 * Eldon Shi, RT - 09/12/2014 4:28 AM EST Patient [...] % ETCO2 (mmHg) 66 mmHg * Suni Steele, DOWEL SETTING MACHINE OPERATOR - 09/11/2014 3:47 PM EST Mr. Crouch remained on below settings throughout shift with no changes made. He passed SBT earlier this morning, but extubation held to allow for more diuresis today. He is a difficult airway, [facility]ains at [facility]. Plan to continue PSV [...] hours, pleaseconsider alternative means of nutrition support. MIKAYLA ALFRED, DT * Cynthia Davis Jr., MD [...] PCP: CHERISE STAPLES MD PCP phone #: [phone] ID/Chief Complaint: 69 man w/ ASCVD s/p stent to LAD 2006 and NV ~1992, Afib on warfarin, and obesity with [...] stasis changes Lines: PIVs Laboratory: Recent Labs 09/11/14 01509/10/14 0525 09/09/14 1735 WBC 7.9 8.8 10.8* HGB 15.9 14.9 15.3 HCT 49.6 46.8 47.4 PLATELET 174 175 162 NEUTROABS 6.03 7.17* 9.51* Recent Labs 09/11/14 0152 09/10/14 1400 09/10/14 0555 09/09/14 1735 NA 146* -- 143 142 K 4.2 4.4 3.7 3.9 CL 106 -- 107 106 CO2 27 -- 25 23 BUN 18 -- 17 17 CREATININE 1.27 -- 1.23 1.33 Recent Labs 09/11/14 0152 09/10/14 0555 09/09/14 1735 AST 68* 79* 110* [...] Ab: neg Microbiology: Blood Culture- Pending at [facility] Urine Culture- Pending at [facility] Relevant Diagnostic Studies: None new. ASSESSMENT: 69 man w/ ASCVD s/p stent to LAD 2006 and NV ~1992, Afib on warfarin, and obesity with [...] Asencio Internal Medicine, PGY 1 Team pager [phone] 09/11/2014 * Eldon Shi RT - 09/11/2014 [...] unit. --Tien Davis MD * Delroy Marshall, DOWEL SETTING MACHINE OPERATOR - 09/10/2014 8:56 AM EST 09/10/14 0731 [...] PCP: CHERISE STAPLES MD PCP phone #: [phone] ID/Chief Complaint: 69 man w/ ASCVD s/p stent to LAD 2006 and NV ~1992, Afib on warfarin, and obesity with [...] 7cc/kilo Passed SBT Then switched to PS 04/17/25 Repeat CXR shows b/l pleural effusions Vitals: [...] Labs: None Microbiology: Blood Culture- Pending at [facility] Urine Culture- Pending at [facility] Relevant Diagnostic Studies: CXR- 08/10/14: pulmonary edema-unchanged CXR- 08/09/14: pulmonary congestion and edema ASSESSMENT: 69 man w/ ASCVD s/p stent to LAD 2006 and NV ~1992, Afib on warfarin, and obesity with [...] Internal Medicine, PGY 1 * Evette Young RCP - 09/10/2014 5:05 AM EST 09/10/14 0435 [...] anesthesia to wake pt. Pt slowly waking. [place] frothy secretions suctioned twice. pcxr done. Pttachy afib rate 130's. bp stable and o2 sat stable. Right fa piv retapped and resecured. 1645 - pt not tolerating waking and anesthesia hesitant to extub due to secretions and very difficutl intubation. Bobo paged and called critical care team to [...] via stretcher with RT and nurses and telemetry monitor and vent. in to see pt and [...] the procedure I called Nasir Velázquez at [facility] and relayed my concerns about his airway. He felt that given the difficulty of the airway and the lack of back-up at [facility] this weekend he would like to keep the patient at [facility]. We then spoke to [facility] who has accepted the patient on [...] Jaime Crouch Service: Critical Care Medicine - [place] Team Responsible Attending: Nick Broussard MD, PCP: CHERISE STAPLES MD PCP phone #: [phone] ID/Chief Complaint: 69 man w/ ASCVD s/p stent to LAD 2006 and NV ~1992, Afib on warfarin, and obesity with TOM on CPAP nightly who presented originally with a clinical picture of acute cholecystitis on 09/07 and underwent an ERCP here on 09/09 and because he was a difficult intubation, he remained intubated after the procedure because of concern of pulmonary edema. History of Present Illness: 69 man w/ ASCVD s/p stent to LAD 2006 and NV ~1992, Afib on warfarin, and obesity with TOM on CPAP nightly who presents to [facility] on 09/07 with new, sudden onset RUQ [...] patient was discussed with GI here at [facility] and plan made was to perform ERCP to relieve what mighthave been a picture of ascending cholangitis versus acute cholecystitis. On arrival to [facility], the day of admission, he was hemodynamically [...] was made to admit him to the [facility]. OSH labs on 09/07 prior to [...] ??? Nephrolithiasis Past surgeries: Stent of LAD 2006 Nephrolithotomy of left ureter Bilateral top hip [...] Labs: None Microbiology: Blood Culture- Pending at [facility] Urine Culture- Pending at [facility] Relevant Diagnostic Studies: CXR- 08/09/14: diffuse fluffy airspace obesities throughout lung medrano ASSESSMENT: 69 man w/ ASCVD s/p stent to LAD 2006 and NV ~1992, Afib on warfarin, and obesity with [...] code Dispo- pends success with extubation John Kerry, PGY-2 Personal Pager # [phone] Team Pager # [phone] I have seen and examined the patent [...] A referral can be made by calling [phone] or by placing a [facility] wound referral. Discussed plan with: RN: Florinda Collier Please contact BERENICE GEE RN on pager [phone] or the wound care team at [phone] or pager [phone] with skin and wound care concerns or questions. * Plan of Care - Berna Salas RN - 09/19/2014 6:55 PM EST Problem: General Plan of Care Goal: Plan of Care Review Outcome: Ongoing (Interventions Implemented as Appropriate) 09/19/14 9946 Plan of Care Review Plan of Care [...] tomorrow. Pt and his are working with [facility] to order hospital bed for home. PLAN MOVING FORWARD: Monitor I&O, Encourage increased ambulation, Continue pt teaching regarding medication administration, ?D/c tomorrow INDIVIDUALIZED FALL PREVENTION: Assistance: 1-2 with walker Supervision: Nursing, pt appropriately using call estevez Surveillance: Briana Mitchell Rounding, Telemetry CPG OUTCOME EVALUATION: * Plan of Care - Katy Price RN - 09/19/2014 6:34 AM EST Problem: General Plan of Care Goal: Plan of Care Review Outcome: Ongoing (Interventions Implemented as Appropriate) 09/18/14 1302 09/18/142119 Plan of Care Review Plan of Care [...] Control Outcome: Ongoing (Interventions Implemented as Appropriate) 09/18/142119 Safety Interventions Isolation Precautions standard precautions maintained Problem: Skin Integrity Impairment, Risk/Actual (Adult, Obstetrics) Goal: Skin Integrity/Wound Healing Patient will demonstrate the desired outcomes. Outcome: Outcome (s) achieved Date Met: 09/19/14 09/19/14625 Skin Integrity Impairment, Risk/Actual (Adult, Obstetrics) Skin Integrity/Wound Healing achieves outcome Problem: Activity Intolerance (Adult, Obstetrics) Goal: Activity Tolerance Patient will demonstrate the desired outcomes. Outcome: Outcome (s) achieved Date Met: 09/19/14 09/19/14625 Activity Intolerance (Adult, Obstetrics) Activity Tolerance achieves outcome Goal: Effective Energy Conservation Techniques Patient will demonstrate the desired outcomes. Outcome: Outcome (s) achieved Date Met: 09/19/14 09/19/14 0626 Activity Intolerance (Adult, Obstetrics) Effective Energy Conservation Techniques achieves outcome * Plan of Care - Katy Stubbs, JACOB - 09/18/2014 1:06 PM EST Problem: General [...] needed using the nurse call estevez. Surveillance: Marcio Mitchell, purposeful rounding. CPG OUTCOME EVALUATION: Goal: Infection [...] Outcome: Ongoing (Interventions Implemented as Appropriate) 09/18/14414 Skin Integrity Impairment, Risk/Actual (Adult, Obstetrics) Skin [...] Outcome: Unable to achieve outcome by discharge 09/17/14 142 Plan of Care Review Plan of Care [...] use of call estevez, using appropriately Surveillance: Paula, Sebastianful, Telemetry CPG GOAL OUTCOME EVALUATION: Goal: Individualization [...] Outcome: Ongoing (Interventions Implemented as Appropriate) 09/17/141428 Activity Intolerance (Adult, Obstetrics) Activity Tolerance making progress toward outcome * Plan of Care - Sarah Conner RN - 09/17/2014 2:27 AM EST Problem: General Plan of Care Goal: Plan of Care Review Outcome: Ongoing (Interventions Implemented as Appropriate) 09/17/146 Plan of Care Review Plan of Care [...] Outcome: Ongoing (Interventions Implemented as Appropriate) 09/16/14 4413 Plan of Care Review Plan of Care [...] pt appropriately calling nursing for assistance Surveillance: Masimo, Purposeful rounding, Telemetry. CPG OUTCOME EVALUATION: Problem: [...] Outcome: Ongoing (Interventions Implemented as Appropriate) 09/16/141852 Activity Intolerance (Adult, Obstetrics) Activity Tolerance making progress toward outcome * Plan of Care - Sarah Conner RN - 09/16/2014 3:52 AM EST Problem: General Plan of Care Goal: Plan of Care Review Outcome: Ongoing (Interventions Implemented as Appropriate) 09/16/14350 Plan of Care Review Plan of Care [...] Mutuality Outcome: Ongoing (Interventions Implemented as Appropriate) 09/16/14350 Individualization Individualize the Plan of Care: using [...] Review Outcome: Ongoing (Interventions Implemented as Appropriate) 09/15/141807 Plan of Care Review Plan of Care [...] d/t HR of 140s-160's via telemetryand per education technician call. Haque removed, pt voiding in [...] Supervision: Nursing, pt appropriately requesting assistance Surveillance: Masimo, Purposeful Rounding, Telemetry CPG OUTCOME EVALUATION: Problem: [...] (CPG) Outcome: Ongoing (Interventions Implemented as Appropriate) 09/15/141807 Activity Intolerance Personal Related Risk Factors (Activity [...] via haque clear yellow, no blood visible. DRILL PRESS HAND rounded; pt verbalized understanding that he should [...] Supervision: 1-2 assist depending on activity Surveillance: marcio Mitchell, purposeful rounding CPG GOAL OUTCOME EVALUATION: Goal: [...] Outcome: Ongoing (Interventions Implemented as Appropriate) 09/14/14 143 Discharge Needs Assessment Concerns to be Addressed [...] Patientcurrently extubated and transferred from ICU to [facility] on 09[facility]13[facility]2014. Past Medical History Diagnosis Date ??? Kidney stone ??? Hypertension ??? ASCVD (arteriosclerotic cardiovascular disease) 1993 first NV 1992, stent to LAD in 2006 ??? [...] ERCP performed by Nick Broussard MD at [facility] Social History: Patient lives with his and large dog in a multilevel home. 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 Communication: [facility] Vision & Perception: WFL. Wears glasses. Able to read white board from a distance. Range of motion, strength, coordination: Hand dominance: right Bilateral UEs are within functional limitations. Good cv/cvn cv tsc system operator strength. Able to touch thumb to each [...] evaluation Total timed interventions: 0 minutes Pager: [phone] Sofía Alonso OTR/L Occupational Therapy Rehabilitation Department [...] OTHER Vale Fall Risk -- -- -- 09/13/14194809/14/14 0003 Musculoskeletal Interventions Activity/Level of Assistance bed [...] pt diet advanced from dysphagia/nector thick to QUYNH with regular liquids. Pt at bedside and [...] Ongoing (Interventions Implemented as Appropriate) 09/13/14 0552 Activity Intolerance Personal Related Risk Factors (Activity Intolerance) deconditioned status;general weakness;lack of motivation;sedentary lifestyle Physiological Related Risk Factors (Activity Intolerance) cardiovascular disease/dysfunction;obesity;peripheral vascular disease Treatment Related Related Risk Factors (Activity Intolerance) medication side effects Signs and Symptoms (Activity Intolerance) dysrhythmia Goal: Activity Tolerance Patient will demonstrate the desired outcomes. Outcome: Ongoing (Interventions Implemented as Appropriate) 09/13/14 0552 Activity Intolerance (Adult, Obstetrics) Activity Tolerance unable to achieve outcome Goal: Effective Energy Conservation Techniques Patient will demonstrate the desired outcomes. Outcome: Ongoing (Interventions Implemented as Appropriate) 09/13/14 0552 Activity Intolerance (Adult, Obstetrics) Effective Energy Conservation Techniques unable to achieve outcome * Consult Note - Sofía Aiken RN - 09/13/2014 12:26 PM EST Certified Wound Care Nurse ICU Transfer Note Patient transferred from ICU to [facility]. Discussed patient with RN. Reviewed [...] are elevated. Order to beplaced. Discussed with RN: Karrie * Plan of Care - Miri Munoz [...] GOAL OUTCOME EVALUATION: Goal: Individualization and Mutuality 09/13/14551 Individualization Patient Specific Interventions cpap Goal: Fall Prevention-Safe Patient Handling Outcome: Ongoing (Interventions Implemented as Appropriate) 09/12/1479909/12/14 1200 09/12/142044 Musculoskeletal Interventions Activity/Level of Assistance [...] -- -- Medium (25-44) Goal: Infection Control 09/12/1479909/12/142044 Coping/Psychosocial Response Interventions Counseling calming techniques promoted;emotional [...] Ongoing (Interventions Implemented as Appropriate) 09/13/14 05 Skin Integrity Impairment, Risk/Actual (Adult, Obstetrics) Skin [...] ERCP performed by Nick Broussard MD at [facility] Social History: Patient lives with spouse in home with stairs; works as real estate transaction manager Stairs: yes; done slowly Baseline Mobility: independent [...] moderate assist x1 as pt moved to [facility] from dip in bariatric [...] timed interventions: 0 minutes (extended eval) Pager: [phone] SHERMAN DURON PT 09/12/2014 Physical Therapy Rehabilitation Department * Consult Note - Sofía Aiken RN - 09/12/2014 1:45 PM EST Images [...] Nutrition Interventions: refer to dietitian, refer to animal nutrition consultant/tech Promote Nutrition Balance: dietitian consult Current bed: [...] Please contact SOFÍA AIKEN RN on pager [phone] or the wound care team at [phone] or pager [phone] with skin and wound care concerns or [...] y.o. male extubated at 0943 today to ID; now currently A&Ox4. Continued diuresis, worked with PT today, and spoke with a leather case finisher while was present today to assess possible [...] Ongoing (Interventions Implemented as Appropriate) 09/10/14 1819 Individualization Individualize the Plan of Care: likes to be called Jimbo Goal: Fall Prevention-Safe Patient Handling Outcome: Ongoing (Interventions Implemented as Appropriate) 09/12/14 0800 09/12/14 1000 Musculoskeletal Interventions Activity/Level of Assistance -- [...] (Interventions Implemented as Appropriate) 09/12/14 0809/12/14 1000 Coping/Psychosocial Response Interventions Counseling calming techniques [...] Pt and his were visited by a leather case finisher this morning to discuss discharge planning and [...] Appropriate) 09/12/14 1056 Skin Integrity Impairment, Risk/Actual (Adult, Obstetrics) Skin Integrity/Wound Healing making progress toward outcome Problem: Activity Intolerance (Adult, Obstetrics) Goal: Identify Signs and Symptoms and Related Risk Factors Signs and symptoms and related risk factors are identified upon initiation of Human Response Clinical Practice Guideline (CPG) Outcome: Ongoing (Interventions Implemented as Appropriate) 09/12/14 1056 Activity Intolerance Personal Related Risk Factors (Activity [...] Appropriate) 09/12/14 1056 Activity Intolerance (Adult, Obstetrics) Activity Tolerance making [...] Ongoing (Interventions Implemented as Appropriate) 09/10/14 1819 09/11/141999 Plan of Care Review Plan of Care [...] Ongoing (Interventions Implemented as Appropriate) 09/10/14 1819 09/11/14 1200 Individualization Individualize the Plan of Care: [...] (Interventions Implemented as Appropriate) 09/11/14 0800 09/11/14 2000 09/12/14 0400 Coping/Psychosocial Response Interventions Counseling -- calming [...] Ongoing (Interventions Implemented as Appropriate) 09/10/14 1819 09/11/14 1723 Plan of Care Review Plan of [...] Ongoing (Interventions Implemented as Appropriate) 09/10/14 1819 09/11/14 1200 Individualization Individualize the Plan of Care: likes to be called Jimbo -- Mutuality/Individual Preferences What anxieties, fears or concerns do you have about your health or care? -- shawnee What questions do you have about your health or care? -- shawnee Goal: Fall Prevention-Safe Patient Handling Outcome: Ongoing (Interventions Implemented as Appropriate) 09/11/14 0809/11/14 1600 Musculoskeletal Interventions Activity/Level of Assistance -- [...] Assessment Outcome: Ongoing (Interventions Implemented as Appropriate) 01/04/15 1723 Living Environment Transportation Available car Problem: [...] Outcome: Ongoing (Interventions Implemented as Appropriate) 09/10/14 0800 09/10/14 2000 09/11/14 0400 Coping/Psychosocial Response Interventions Counseling -- calming [...] sounds coarse, spo2 >94%, moderate thin/clear secretions. SA90-171's, BP 90's-130's, afebrile, good pulses. Active bowel sounds, no bowel movement. Goal: Individualization and Mutuality 09/10/141818 Individualization Individualize the Plan of Care: likes to be called Jimbo Goal: Fall Prevention-Safe Patient Handling 09/10/14 0809/10/14 1800 Musculoskeletal Interventions Activity/Level of Assistance -- [...] reduction program maintained Goal: Infection Control 09/10/14 0809/10/14 1800 Coping/Psychosocial Response Interventions Counseling calming techniques [...] Review Outcome: Ongoing (Interventions Implemented as Appropriate) 09/10/14655 Plan of Care Review Plan of Care [...] Outcome: Ongoing (Interventions Implemented as Appropriate) 09/10/14 0609/10/14 06 Musculoskeletal Interventions Activity/Level of Assistance bed rest [...] Medrano MD - 09/09/2014 6:11 PM EST [facility] Department of Surgery Inpatient Consult Note [...] ??? ASCVD (arteriosclerotic cardiovascular disease) 1993 first [place] 1992, stent to LAD in 2006 ??? [...] Procedure Name Priority Date/Time Associated Diagnosis Comments CONSTRUCTION SITE CROSSING GUARD SCAN 09/21/2014 12:00 AM EST ECG SCAN [...] in this encounter Results * SCAN DOC: CONSTRUCTION SITE CROSSING GUARD (09/21/2014 12:00 AM EST) Anatomical Region Laterality Modality Other Scanning Provider MEDIA MGR SCAN EXT O RDR/RSLT * SCAN DOC: ECG (09/21/2014 12:00 AM EST) Scanning Provider MEDIA MGR SCAN EXT O RDR/RSLT * Prothrombin Time (09/20/2014 2:39 AM EST) Prothrombin Time 14.7 12.5 - 15.5 sec CERNER MILLENNIUM Comment: [facility] Transfusion Committee Guidelines: INR less than 2.0, PTT less than OR equal to 43.5 seconds, or Fibrinogen greater than or equal to 100 mg/dl indicate adequate procoagulant activity for hemostasis in patients without underlying bleeding disorders. International Normalization Ratio 1.1 0.9 - 1.1 CERNER MILLENNIUM Blood specimen (specimen) 09/20/2014 2:39 AM EST 09/20/2014 3:03 AM EST Narrative Resulting Agency Comment Spec In Lab Espinoza Crawford MD HEMATOLOGY ORDERAB LES CERNER Reach SurgicalENNIUM * Phosphorus (09/20/2014 2:39 AM EST) Phosphorus 3.1 2.5 - 4.5 mg/dL CERNER Reach SurgicalENNIUM Blood specimen (specimen) 09/20/2014 2:39 AM EST 09/20/2014 3:03 AM EST Narrative Resulting Agency Comment Spec In Lab Karmen Silvestre DO CHEMISTRY ORDERAB LES CERNER Reach SurgicalENNIUM * Magnesium (09/20/2014 2:39 AM EST) Magnesium 0.85 0.69 - 1.07 mmol/L [facility] MILL[facility] Blood specimen (specimen) 09/20/2014 2:39 AM EST 09/20/2014 3:03 AM EST Narrative Resulting Agency Comment Spec In Lab Karmen Silvestre DO CHEMISTRY ORDERAB LES Performing Organization Address [facility] Phone Number [facility] * Prothrombin Time (09/19/2014 2:13 AM EST) Prothrombin Time 13.8 12.5 - 15.5 sec [facility] Comment: [facility] Transfusion Committee Guidelines: INR less than 2.0, PTT less than OR equal to 43.5 seconds, or Fibrinogen greater than or equal to 100 mg/dl indicate adequate procoagulant activity for hemostasis in patients without underlying bleeding disorders. International Normalization Ratio 1.0 0.9 - 1.1 [facility] MILLENNIUM Blood specimen (specimen) 09/19/2014 2:13 AM EST 09/19/2014 2:40 AM EST Narrative Resulting Agency Comment Spec In Lab Espinoza Crawford MD HEMATOLOGY ORDERAB LES Performing Organization Address [facility] Phone Number [facility] * Basic Metabolic Panel (non-fasting) (09/19/2014 2:13 AM EST) Glucose 105 60 - 199 mg/dL [facility] Comment:Diabetes: >=200 mg/d L plus symptoms Blood Urea Nitrogen 20 10 - 20 mg/dL [facility] MILLENNIUM Creatinine 0.90 0.80 - 1.50 mg/dL [facility] MILLENNIUM Comment: Please note that the pediatric reference intervals supplied above were not validated at [facility]. Results from pediatric patients should be interpreted in conjunction to the patient's age, height and muscle mass. Sodium 137 135 - 145 mmol/L [facility] Potassium 4.1 3.5 - 5.0 mmol/L [facility] Comment: Please note: ??Patients with WBC >100,000 [...] the following links into your internet browser. [email or web address] Blood specimen (specimen) 09/19/2014 2:13 AM EST 09/19/2014 2:40 AM EST Narrative Resulting Agency Comment Spec In Lab Karmen Silvestre DO CHEMISTRY ORDERAB LES Performing Organization Address City/[facility] Co de Phone Number [facility] [employer]nt TechnologyOLIVIA * Prothrombin Time (09/18/2014 2:04 AM EST) Prothrombin Time 13.8 12.5 - 15.5 sec CERNER MILLENNIUM Comment: [facility] Transfusion Committee Guidelines: INR less than [...] HEMATOLOGY ORDERAB LES MAXIMO NERI * (ABNORMAL) Basic Metabolic Panel (non-fasting) (09/18/2014 2:04 AM EST) [facility] Glucose 105 60 - 199 mg/dL CERNER MILLENNIUM Comment:Diabetes: >=200 mg/d L plus symptoms Blood Urea Nitrogen 23(H) 10 - 20 mg/dL CERNER MILLENNIUM Creatinine 0.91 0.80 - 1.50 mg/dL CERNER MILLENNIUM Comment: Please note that the pediatric reference intervals supplied above were not validated at [facility]. Results from pediatric patients should be interpreted [...] the following links into your internet browser. [email or web address] Blood specimen (specimen) 09/18/2014 2:04 AM EST 09/18/2014 2:15 AM EST Narrative Resulting Agency Comment Spec In Lab Karmen Silvestre DO CHEMISTRY ORDERAB LES MAXIMO ELYIUM * Prothrombin Time (09/17/2014 2:45 AM EST) Prothrombin Time 13.5 12.5 - 15.5 sec CERNER MILLENNIUM Comment: [facility] Transfusion Committee Guidelines: INR less than [...] NERI * (ABNORMAL) Comprehensive metabolic panel (non-fasting) (09/17/2014 2:45 AM EST) Glucose 106 60 - 199 mg/dL CERNER MILLENNIUM Comment:Diabetes: >=200 mg/d L plus symptoms Blood Urea Nitrogen 22(H) 10 - 20 mg/dL CERNER MILLENNIUM Creatinine 0.91 0.80 - 1.50 mg/dL CERNER MILLENNIUM Comment: Please note that the pediatric reference intervals supplied above were not validated at [facility]. Results from pediatric patients should be interpreted [...] the following links into your internet browser. [email or web address] Blood specimen (specimen) 09/17/2014 2:45 AM EST 09/17/2014 3:17 AM EST Narrative Resulting Agency Comment Spec In Lab Espinoza Crawford MD CHEMISTRY ORDERABL ES Performing Organization Address [facility] Co de Phone Number CERNER MILLENNIUM * Nucleated Red Blood Cells [...] MD HEMATOLOGY ORDERAB LES Performing Organization Address [facility] de Phone Number [facility] NERI * Prothrombin Time (09/16/2014 2:59 AM EST) Prothrombin Time 13.1 12.5 - 15.5 sec [facility] MILLENNIUM Comment: [facility] Transfusion Committee Guidelines: INR less than 2.0, PTT less than OR equal to 43.5 seconds, or Fibrinogen greater than or equal to 100 mg/dl indicate adequate procoagulant activity for hemostasis in patients without underlying bleeding disorders. International Normalization Ratio 0.9 0.9 - 1.1 [facility] BOWENENNIUM Blood specimen (specimen) 09/16/2014 2:59 AM EST 09/16/2014 3:04 AM EST Narrative Resulting Agency Comment Spec In Lab Espinoza Crawford MD HEMATOLOGY ORDERAB LES Performing Organization Address City/State/[facility] Co de Phone Number MAXIMO NERI * (ABNORMAL) Comprehensive metabolic panel (non-fasting) (09/16/2014 2:59 AM EST) Glucose 118 60 - 199 mg/dL [facility] MILLENNIUM Comment:Diabetes: >=200 mg/d L plus symptoms Blood Urea Nitrogen 25(H) 10 - 20 mg/dL CERNER MILLENNIUM Creatinine 1.02 0.80 - 1.50 mg/dL CERNER MILLENNIUM Comment: Please note that the pediatric reference intervals supplied above were not validated at [facility]. Results from pediatric patients should be interpreted [...] the following links into your internet browser. [email or web address] Blood specimen (specimen) 09/16/2014 2:59 AM EST 09/16/2014 3:04 AM EST Narrative Resulting Agency Comment Spec In Lab Espinoza Crawford MD CHEMISTRY ORDERABL ES Performing Organization Address [facility]/ZIP Co de Phone Number CERDENISE BOWENENNIUM * Magnesium (09/16/2014 2:59 AM EST) Magnesium 0.87 0.69 - 1.07 mmol/L CERNER MILLENNIUM Blood specimen (specimen) 09/16/2014 2:59 AM EST 09/16/2014 3:04 AM EST Narrative Resulting Agency Comment Spec In Lab Cynthia Almanza MD CHEMISTRY ORDERABLES Performing Organization Address [facility] Co de Phone Number CERNER ANDRÉSENNIUM * Nucleated Red Blood Cells (09/15/2014 2:52 AM EST) NRBC% auto 0.0 % CERNER MILLENNIUM NRBC Absolute 0.000 0.000 - 0.012 x10(3)/mcL CERNER MILLENNIUM Blood specimen (specimen) 09/15/2014 2:52 AM EST 09/15/2014 3:12 AM EST Narrative Resulting Agency Comment Spec In Lab Espinoza Crawford MD HEMATOLOGY ORDERAB LES Performing Organization Address [facility]/ZIP Co de Phone Number CERNER ANDRÉSENNIUM * (ABNORMAL) Differential, Automated (09/15/2014 2:52 AM [...] HEMATOLOGY ORDERAB LES CERNER MILLENNIUM * (ABNORMAL) Hemogram (09/15/2014 2:52 AM EST) [...] Platelet Volume 10.1 9.0 - 12.0 fL CERNER MILLENNIUM Blood specimen (specimen) 09/15/2014 2:52 AM EST 09/15/2014 3:12 AM EST Narrative Resulting Agency Comment Spec In Lab Espinoza Crawford MD HEMATOLOGY ORDERAB LES Performing Organization Address [facility] Co de Phone Number MAXIMO ELYIUM * Prothrombin Time (09/15/2014 2:52 AM EST) Prothrombin Time 13.2 12.5 - 15.5 sec CERNER MILLENNIUM Comment: [facility] Transfusion Committee Guidelines: INR less than 2.0, PTT less than OR equal to 43.5 seconds, or Fibrinogen greater than or equal to 100 mg/dl indicate adequate procoagulant activity for hemostasis in patients without underlying bleeding disorders. International Normalization Ratio 0.9 0.9 - 1.1 CERNER MILLENNIUM Blood specimen (specimen) 09/15/2014 2:52 AM EST 09/15/2014 3:12 AM EST Narrative Resulting Agency Comment Spec In Lab Espinoza Crawford MD HEMATOLOGY ORDERAB LES Performing Organization Address [facility] de Phone Number CERDENISE NERI * (ABNORMAL) Comprehensive metabolic panel (non-fasting) (09/15/2014 2:52 AM EST) Glucose 108 60 - 199 mg/dL CERNER MILLENNIUM Comment:Diabetes: >=200 mg/d L plus symptoms Blood Urea Nitrogen 24(H) 10 - 20 mg/dL CERNER MILLENNIUM Creatinine 0.99 0.80 - 1.50 mg/dL CERNER MILLENNIUM Comment: Please note that the pediatric reference intervals supplied above were not validated at [facility]. Results from pediatric patients should be interpreted [...] the following links into your internet browser. [email or web address] Blood specimen (specimen) 09/15/2014 2:52 AM EST [...] HEMATOLOGY ORDERAB LES CERNER MILLENNIUM * (ABNORMAL) Hemogram (09/14/2014 2:23 AM EST) [...] Lab Espinoza Crawford MD HEMATOLOGY ORDERAB LES [facility] Organization Address City/State/ZIP Co de Phone Number CERDENISE BOWENENNIUM * Prothrombin Time (09/14/2014 2:23 AM EST) Prothrombin Time 13.2 12.5 - 15.5 sec CERNER MILLENNIUM Comment: [facility] Transfusion Committee Guidelines: INR less than [...] MILLENNIUM * (ABNORMAL) Comprehensive metabolic panel (non-fasting) (09/14/2014 2:23 AM EST) Glucose 108 60 - 199 mg/dL CERNER MILLENNIUM Comment:Diabetes: >=200 mg/d L plus symptoms Blood Urea Nitrogen 26(H) 10 - 20 mg/dL CERNER MILLENNIUM Creatinine 1.01 0.80 - 1.50 mg/dL CERNER MILLENNIUM Comment: Please note that the pediatric reference intervals supplied above were not validated at [facility]. Results from pediatric patients should be interpreted [...] the following links into your internet browser. [email or web address] Blood specimen (specimen) 09/14/2014 2:23 AM EST 09/14/2014 2:38 AM EST Narrative Resulting Agency Comment Spec In Lab Espinoza Crawford MD CHEMISTRY ORDERABL ES Performing Organization Address [facility] Co de Phone Number CERNER MILLENNIUM * [...] MD HEMATOLOGY ORDERAB LES Performing Organization Address [facility]/ZIP Co de Phone Number CERNER MILLENNIUM * (ABNORMAL) Differential, Automated (09/13/2014 [...] HEMATOLOGY ORDERAB LES CERNER MILLENNIUM * (ABNORMAL) Hemogram (09/13/2014 10:48 AM EST) [...] MD HEMATOLOGY ORDERAB LES Performing Organization Address [facility] Co de Phone Number MAXIMO ELYIUM * Prothrombin Time (09/13/2014 10:48 AM EST) Prothrombin Time 13.0 12.5 - 15.5 sec CERNER MILLENNIUM Comment: [facility] Transfusion Committee Guidelines: INR less than 2.0, PTT less than OR equal to 43.5 seconds, or Fibrinogen greater than or equal to 100 mg/dl indicate adequate procoagulant activity for hemostasis in patients without underlying bleeding disorders. International Normalization Ratio 0.9 0.9 - 1.1 CERNER MILLENNIUM Blood specimen (specimen) 09/13/2014 10:48 AM EST 09/13/2014 10:59 AM EST Narrative Resulting Agency Comment Spec In Lab Espinoza Crawford MD HEMATOLOGY ORDERAB LES Performing Organization Address [facility] Co de Phone Number CERDENISE ELYIUM * (ABNORMAL) Comprehensive metabolic panel (non-fasting) (09/13/2014 10:48 AM EST) Glucose 133 60 - 199 mg/dL CERNER MILLENNIUM Comment:Diabetes: >=200 mg/d L plus symptoms Blood Urea Nitrogen 27(H) 10 - 20 mg/dL CERNER MILLENNIUM Creatinine 1.06 0.80 - 1.50 mg/dL CERNER MILLENNIUM Comment: Please note that the pediatric reference intervals supplied above were not validated at [facility]. Results from pediatric patients should be interpreted [...] the following links into your internet browser. [email or web address] Blood specimen (specimen) 09/13/2014 10:48 AM EST 09/13/2014 10:59 AM EST Narrative Resulting Agency Comment Spec In Lab Espinoza Crawford MD CHEMISTRY ORDERABL ES CERNER MILLENNIUM * Potassium (09/12/2014 1:54 PM EST) Potassium Not Perf 3.5 - 5.0 mmol/L CERNER MILLENNIUM Comment: Unable to quantitate due to sample [...] Nick Broussard MD CHEMISTRY ORDERABLE S MAXIMO ANDRÉSENNIUM * Heparin, low molecular weight assay (09/12/2014 1:54 PM EST) Heparin Gagu21r 0.80 IU/mL CERN ER MILLENNIUM Comment: Guidelines for therapeutic unfractionated and low [...] Spec In Lab Cynthia Davis Jr., MD HEMATOLOGY ORDER JESSIE MAXIMO Creation[employer] * XR chest PA or AP- 1 [...] MD HEMATOLOGY ORDERABL ES Performing Organization Address [facility]/ZIP Co de Phone Number CERDENISE MILLENNIUM * (ABNORMAL) Hemogram (09/12/2014 12:33 AM EST) [...] MD HEMATOLOGY ORDERABL ES Performing Organization Address [facility] Co de Phone Number CERDENISE MILLENNIUM * Prothrombin Time (09/12/2014 12:33 AM EST) Prothrombin Time 14.2 12.5 - 15.5 sec CERNER MILLENNIUM Comment: [facility] Transfusion Committee Guidelines: INR less than [...] MILLENNIUM * (ABNORMAL) Comprehensive metabolic panel (non-fasting) (09/12/2014 12:33 AM EST) Glucose 96 60 - 199 mg/dL CERNER MILLENNIUM Comment:Diabetes: >=200 mg/d L plus symptoms Blood Urea Nitrogen 23(H) 10 - 20 mg/dL CERNER MILLENNIUM Creatinine 1.20 0.80 - 1.50 mg/dL CERNER MILLENNIUM Comment: Please note that the pediatric reference intervals supplied above were not validated at [facility]. Results from pediatric patients should be interpreted [...] the following links into your internet browser. [email or web address]/[facility] Blood specimen (specimen) 09/12/2014 12:33 AM EST 09/12/2014 12:36 AM EST Narrative Resulting Agency Comment Spec In Lab Nick Broussard MD CHEMISTRY ORDERABLE S [facility] Re[facility]AD[facility] * (ABNORMAL) Basic Metabolic Panel (non-fasting) (09/11/2014 4:50 PM EST) [facility] Glucose 102 60 - 199 mg/dL CERNER MILLENNIUM Comment:Diabetes: >=200 mg/d L plus symptoms Blood Urea Nitrogen 20 10 - 20 mg/dL CERNER MILLENNIUM Creatinine 1.27 0.80 - 1.50 mg/dL CERNER MILLENNIUM Comment: Please note that the pediatric reference intervals supplied above were not validated at [facility]. Results from pediatric patients should be interpreted [...] MILLENNIUM Est Glomerular Filtration Rate 57(L) >=60 [facility] Comment: This estimated GFR (eGFR) value was [...] the following links into your internet browser. [email or web address] Blood specimen (specimen) 09/11/2014 4:50 PM EST 09/11/2014 4:56 PM EST Narrative Resulting Agency Comment Spec In Lab Cynthia Davis Jr., MD CHEMISTRY ORDERA BLEGutierrez [facility] * XR chest PA or AP- 1 [...] ORDERABL ES CERNER MILLENNIUM * (ABNORMAL) Hemogram (09/11/2014 1:52 AM EST) [...] Lab Nick Broussard MD HEMATOLOGY ORDERABL ES [facility] AND[facility] * (ABNORMAL) Prothrombin Time (09/11/2014 1:52 AM EST) Prothrombin Time 15.8(H) 12.5 - 15.5 sec CERNER MILLENNIUM Comment: [facility] Transfusion Committee Guidelines: INR less than [...] Lab Nick Broussard MD HEMATOLOGY ORDERABL ES MAXIMO ELYIUM * (ABNORMAL) Comprehensive metabolic panel (non-fasting) (09/11/2014 1:52 AM EST) Glucose 104 60 - 199 mg/dL CERNER MILLENNIUM Comment:Diabetes: >=200 mg/d L plus symptoms Blood Urea Nitrogen 18 10 - 20 mg/dL CERNER MILLENNIUM Creatinine 1.27 0.80 - 1.50 mg/dL CERNER MILLENNIUM Comment: Please note that the pediatric reference intervals supplied above were not validated at [facility]. Results from pediatric patients should be interpreted [...] the following links into your internet browser. [email or web address] Blood specimen (specimen) 09/11/2014 1:52 AM EST 09/11/2014 1:54 AM EST Narrative Resulting Agency Comment Spec In Lab Nick Broussard MD CHEMISTRY ORDERABLE S Performing Organization Address [facility] de Phone Number [facility] * Potassium (09/10/2014 2:00 PM EST) Pathologist [facility] Potassium 4.4 3.5 - 5.0 mmol/L [facility] Comment: Please note: ??Patients with WBC >100,000 [...] MD CHEMISTRY ORDERABLE S Performing Organization Address [facility] de Phone Number [facility] * Hepatitis B Core Antibody, IgM (09/10/2014 9:30 AM EST) Hepatitis B Core IgM Negative Negative [facility] Comment: Test Performed by: [employer] [address] [address] Manager Battery: Marium Moreno, Ph.D. Blood specimen (specimen) 09/10/2014 9:30 AM EST 09/12/2014 9:18 AM EST Narrative Resulting Agency Comment Spec In Lab Nick Broussard MD CHEMISTRY ORDERABLE S Performing Organization Address [facility] de Phone Number [facility] * Hepatitis B Surface Antibody (09/10/2014 9:30 AM EST) Hepatitis B Surface Antibody Negative [facility] Comment: Expected Results: Vaccinated: Positive [...] Comment Spec In Lab Nick Broussard MD Book A BoatABLE S Performing Organization Address [facility] Phone Number [facility] * Hepatitis B Surface Antigen (09/10/2014 9:30 AM EST) Hepatitis B Surface Antigen Negative Negative [facility] Blood specimen (specimen) 09/10/2014 9:30 AM EST 09/10/2014 9:44 AM EST Narrative Resulting Agency Comment Spec In Lab Nick Broussard MD Book A BoatABLE S Performing Organization Address [facility] Phone Number [facility] * Hepatitis C Antibody (09/10/2014 9:30 AM EST) Hepatitis C Antibody Negative Negative [facility] Blood specimen (specimen) 09/10/2014 9:30 AM EST 09/10/2014 9:44 AM EST Narrative Resulting Agency Comment Spec In Lab Nick Brosusard MD CHEMISTRY ORDERABLE S Performing Organization Address [facility] de Phone Number [facility] * XR chest PA or AP- 1 [...] IMPRESSION IMPRESSION: Pulmonary edema Nick Broussard MD IM DX ORDERABLES * (ABNORMAL) Prothrombin Time (09/10/2014 5:55 AM EST) Prothrombin Time 15.5 12.5 - 15.5 sec MAXIMO [employer] Comment: [facility] Transfusion Committee Guidelines: INR less than 2.0, PTT less than OR equal to 43.5 seconds, or Fibrinogen greater than or equal to 100 mg/dl indicate adequate procoagulant activity for hemostasis in patients without underlying bleeding disorders. International Normalization Ratio 1.2(H) 0.9 - 1.1 MAXIMO Reach [email or web address] Blood specimen (specimen) 09/10/2014 5:55 AM EST [...] intervals supplied above were not validated at [facility]. Results from pediatric patients should be interpreted [...] the following links into your internet browser. [email or web address] Blood specimen (specimen) 09/10/2014 5:55 AM EST 09/10/2014 6:05 AM EST Narrative Resulting Agency Comment Spec In Lab Nick Broussard MD CHEMISTRY ORDERABLE S CERNER MILLENNIUM * (ABNORMAL) Differential, Automated (09/10/2014 5:25 AM [...] Lab Nick Broussard MD HEMATOLOGY ORDERABL ES CERDENISE BOWENENNIUM * (ABNORMAL) BLOOD GAS 2 ARTERIAL (09/09/2014 [...] Broussard MD POINT OF CARE TEST ORDERABLES [facility] MILLENNIUM * XR abdomen 1 view (09/09/2014 8:37 [...] Broussard MD POINT OF CARE TEST ORDERABLES Performing Organization Address City/State/[facility] Co de Phone Number [facility] [employer]nt TechnologyIUM * XR chest PA or AP- 1 [...] * POCT Glucose (09/09/2014 6:28 PM EST) Glucose, POC 112 60 - 199 mg/dL [facility]DEN[facility] Reach [facility]AD[facility] Comment: Supplemental ranges: <140 mg/dL before meals <180 mg/dL all other times of the day Blood specimen (specimen) 09/09/2014 6:28 PM EST 09/09/2014 6:28 PM EST Nick Broussard MD POINT OF CARE TEST ORDERABLES Performing Organization Address City/[facility] Co de Phone Number MAXIMO [facility] [employer] * Lipase (09/09/2014 5:35 PM EST) Lipase 36 0 - 60 unit/L MAXIMO [facility] Blood specimen (specimen) Venous Draw / Unknown 09/09/2014 5:35 PM EST 09/09/2014 5:57 PM EST Narrative Resulting Agency Comment Spec In Lab Nick Broussard MD CHEMISTRY ORDERABLE S Performing Organization Address City/[facility] Co de Phone Number MAXIMO [employer] [employer] * (ABNORMAL) Differential, Automated (09/09/2014 5:35 PM [...] Lab Nick Broussard MD HEMATOLOGY ORDERABL ES CERDENISE BOWENENNIUM * (ABNORMAL) Hemogram (09/09/2014 5:35 [...] MD HEMATOLOGY ORDERABL ES Performing Organization Address [facility] de Phone Number MAXIMO NERI * (ABNORMAL) Prothrombin Time (09/09/2014 5:35 PM EST) Prothrombin Time 16.8(H) 12.5 - 15.5 sec CERDENISE BOWENENNIUM Comment: [facility] Transfusion Committee Guidelines: INR less than 2.0, PTT less than OR equal to 43.5 seconds, or Fibrinogen greater than or equal to 100 mg/dl indicate adequate procoagulant activity for hemostasis in patients without underlying bleeding disorders. International Normalization Ratio 1.3(H) 0.9 - 1.1 CERDENISE MILLENNIUM Blood specimen (specimen) 09/09/2014 5:35 PM EST 09/09/2014 5:56 PM EST Narrative Resulting Agency Comment Spec In Lab Nick Broussard MD HEMATOLOGY ORDERABL ES Performing Organization Address [facility] Co de Phone Number MAXIMO NERI * (ABNORMAL) Comprehensive metabolic panel (non-fasting) (09/09/2014 5:35 PM EST) Glucose 130 60 - 199 mg/dL MAXIMO BOWENENNIUM Comment:Diabetes: >=200 mg/d L plus symptoms Blood Urea Nitrogen 17 10 - 20 mg/dL CERNER MILLENNIUM Creatinine 1.33 0.80 - 1.50 mg/dL CERNER MILLENNIUM Comment: Please note that the pediatric reference intervals supplied above were not validated at [facility]. Results from pediatric patients should be interpreted [...] the following links into your internet browser. [email or web address] Blood specimen (specimen) 09/09/2014 5:35 PM EST [...] Diagnoses Not on filedocumented in this encounter Active and Recently Administered [...] Drea Eubanks RN)1319 (Given - Provider: Florinda Collier, RN) enoxaparin (LOVENOX) injection 180 mg 180 [...] Salas RN) 0920 (Given - Provider: Florinda Collier, JACOB) metoprolol tartrate (LOPRESSOR) tablet 50 mg (CANCELED) [...] (2 times per day), First dose on 09/18/14 at 2100, Until Discontinued, Hold for SBP<110 or HR<55, Routine 2119 (Given - Provider: Katy Price, RN) 913 (Given - Provider: Berna Salas, RN)2128 (Given - Provider: Katy Price, RN) 09 (Given - Provider: Florinda Collier, JACOB) potassium Citrate (UROCIT) tablet SR TbSR 20 mEq (CANCELED) 20 mEq, Oral, 2 TIMES DAILY, First dose on Fri09/14/14 at 1400, Until Discontinued, Routine 0812 (Given - Provider: Katy Stubbs RN)2119 (Given - Provider: Katy Price RN) 913 (Given - Provider: Berna Salas, JACOB)2128 (Given - Provider: Katy Price, JACOB) 09 (Given - Provider: Florinda Collier, JACOB) warfarin (COUMADIN) tablet 7.5 mg (COMPLETED) 7.5 mg, Oral, ONCE, 1 dose, On 09/18/14 at 1700, Routine 1719 (Given - Provider: Katy Stubbs RN) warfarin (COUMADIN) tablet 7.5 mg (COMPLETED) 7.5 mg, Oral, ONCE, 1 dose, On Fri09/19/14 at 1700, Pt's reports that he had vit k at other hospital prior to his transfer here, Routine 1624 (Given - Provider: Berna Salas, JACOB) documented in this encounter Care Teams 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
--- OUTSIDE RECORDS SUMMARY | 2024-08-20 06:26 | XMS_ITS | Encounter Summary ---
[place] [address] Care Team Providers Care Security Associate Name Role Phone Cherise Staples MD Primary Care Provider [phone] Encounter Details Date Type Department Care Team (Latest Contact Info) Description 12/11/2011 10:00 AM EDT - 12/11/2011 11:59 PM EDT Hospital En[place] [address] Nephrolithiasis Social History Tobacco Use Types Packs/Day [...] mouth 3 times daily. 540 tablet 3 11/14/2011 01/13/2013 aspirin 81 mg EC tablet Take 81 mg by mouth daily. 11/23/2014 lisinopril (PRINIVIL;ZESTRIL) 40 mg tablet 09/04/2010 09/20/2014 furosemide (LASIX) 40 mg tablet 09/04/2010 09/09/2014 atorvastatin (LIPITOR) 40 mg tablet 09/04/2010 09/09/2014 documented as of this encounter Plan of Treatment Not on file documented as of this encounter Procedures Procedure Name Priority Date/Time Associated Diagnosis Comments US RETROPERITONEAL COMPLETE Routine 12/11/2011 11:09 AM EDT Nephrolithiasis documented in this encounter Results * US retroperitoneal complete (12/11/2011 11:09 AM EDT) Anatomical Region Laterality Modality Abdomen Ultrasound 12/11/2011 11:0 9 AM EDT Narrative 12/11/2011 11:14 AM EDT ? Renal ? (Signed Final 12/11/2011 11:13 am) Patient Info ID: ? [id number] ? : [birth year] (66 yrs) Name: ? LAZARO CROUCH ?Visit Date: 12/11/2011 10:54 am Performed By Performed By: ?Yareli Perez RDMS Attending: ? Randy SPIVEY, Flex Earl Referred By: ? EDYTA ARANDA Service(s) Provided URETRO - Retroperitoneal Complete - [id number] ? [id number] Indications ?stones Right Kidney Size (cm) ?L: ??13.8 Cortical Thickness: ?Normal Cortical Echogenicity: ?? Normal Hydronephrosis: ?Mild Comment: ?Renal calculus measuring 3 mm. Left Kidney Size (cm) ?L: ??14.2 Cortical Thickness: ?Normal Cortical Echogenicity: ?? Normal Hydronephrosis: ?Mild Urinary Bladder Pre-void (cm) ? L: ??6.8 ? AP: ??6.6 ? TV: ??6.7 Vol (ml): ?157.4 Comment: ?Partially distended, normal contour Impression Ultrasound - ??Retroperitoneal Complete - Summary Single small renal stone on right, lower pole. ??No obstruction. Mild bilateral hydronephrosis. I ??viewed the images and agree with the above interpretation. Thank you for allowing us to participate in the care of LAZARO CROUCH. Please do not hesitate to call if you have any questions. ?Flex Padilla MD Electronically Signed Final Report ?? 12/11/2011 11:13 am Procedure Note Flxe Padilla MD - 12/11/2011 Renal (Signed Final 12/11/2011 11:13 am) Patient Info ID: [id number] : [birth year] (66 yrs) Name: LAZARO CROUCH Visit Date: 12/11/2011 10:54 am Performed By Performed By: Yareli Perez Attending: Flex Padilla MD Referred By: EDYTA ARANDA Service(s) Provided URETRO - Retroperitoneal Complete - [id number] Indications ?stones Right Kidney Size (cm) L: 13.8 Cortical Thickness: Normal Cortical Echogenicity: Normal Hydronephrosis: Mild Comment: Renal calculus measuring 3 mm. Left Kidney Size (cm) L: 14.2 Cortical Thickness: Normal Cortical Echogenicity: Normal Hydronephrosis: Mild Urinary Bladder Pre-void (cm) L: 6.8 AP: 6.6 TV: 6.7 Vol (ml): 157.4 Comment: Partially distended, normal contour Impression Ultrasound - Retroperitoneal Complete - Summary Single small renal stone on right, lower pole. No obstruction. Mild bilateral hydronephrosis. I viewed the images and agree with the above interpretation. Thank you for allowing us to participate in the care of LAZARO CROUCH. Please do not hesitate to call if you have any questions. Flex Padilla MD Electronically Signed Final Report 12/11/2011 11:13 am Edyta Aranda Jr., MD IMG US GEN ORDERAB LES documented in this encounter Visit Diagnoses Diagnosis Nephrolithiasis Calculus of kidney documented in this encounter Care Teams Security Associate Relationship Specialty Start Date End Date Cherise Staples MD [address] [place] [address] PCP - General 07/31/10 10/04/19 documented as of this encounter
--- OUTSIDE RECORDS SUMMARY | 2024-08-20 06:26 | XMS_ITS | Encounter Summary ---
Author Organization [facility] [place] [address] Care Team Providers Care Senior Principal Architect Name Role Phone Cherise Staples MD Primary Care Provider [phone] Encounter Details Date Type Department Care Team (Latest Contact Info) Description 06/17/2012 10:52 AM EDT - 06/17/2012 11:59 PM EDT Hospital [place] [address] Nephrolithiasis Social History Tobacco Use Types Packs/Day [...] Procedure Name Priority Date/Time Associated Diagnosis Comments CT ABDOMEN AND PELVIS WO CONTRAST STAT 06/17/2012 11:02 AM EDT Nephrolithiasis documented in this encounter Results * CT abdomen & [...] kidney documented in this encounter Care Teams Senior Principal Architect Relationship Specialty Start Date End Date Cherise Staples MD [address] [place] [id number] PCP - General 07/31/10 10/04/19 documented as of this encounter
--- OUTSIDE RECORDS SUMMARY | 2024-08-20 06:26 | XMS_ITS | Encounter Summary ---
Author Organization [facility] [place] [place] [address] Care Team Providers Care Risk Management Specialist Name Role Phone Cherise Staples MD Primary Care Provider [phone] Encounter Details Date Type Department Care Team (Late st Contact Info) Description 11/14/2011 [place] [address] Fabricio Aranda Jr., MD [facility] [place] [address] Calculus of kidney (Primary Dx) Social History [...] Primary documented in this encounter Care Teams Risk Management Specialist Relationship Specialty Start Date End Date Cherise Staples MD [address] [place], [place] [address] PCP - General 07/31/10 10/04/19 documented as of this encounter
--- OUTSIDE RECORDS SUMMARY | 2024-08-20 06:26 | XMS_ITS | Encounter Summary ---
Author Organization [facility] Address [facility] [place] [address] Care Team Providers Care Child Caregiver Name Role Phone Cherise Staples MD Primary Care Provider [phone] Encounter Details Date Type Department Care Team (Late st Contact Info) Description 09/09/2014 Telephone [place] [id number] Carri Messina MD [facility] DR [place]STR[place] [address] Social History Tobacco Use Types Packs/Day Years Used Date Smoking Tobacco: Former Smokeless Tobacco: Never Sex and Gender Information Value Date Recorded Sex Assigned at Not on file Gender Identity Not on file Sexual Orientation Not on file documented as of this encounter Miscellaneous Notes * Telephone Encounter - Carri Messina MD - 09/09/2014 10:15 AM EST Received call from [facility] regarding Mr. Crouch 69 yo M with pMH CAD s/p stent, afib on coumadin, HTN,HLP, sleep apnea present to [facility] with RUQ pain, fever found on US abdomen to have mild distended gallbladder with no CBD dilation initial LFT's showed AST/ALT: 300/400's and alk phos: 200's. T.bili: 2. Plan was to have cholecystectomy however noted to have worsen of his worsening T.bili: 7 and AST/ALT: 170'/360 Alk phos: 150's. INR: 1.7 after reversal with vitamin K. Unable to get MRCP. Surgeon unsure if he will be able to do common bile duct exploration after lap saadia. Plan Hold all anticoagulation (unforunately got PPX Lovenox this am) Give another dose of vitamin K for INR<1.5 Plan ERCP documented in this encounter Plan of Treatment Not on file documented as of this encounter Visit Diagnoses Not on filedocumented in this encounter Care Teams Child Caregiver Relationship Specialty Start Date End Date Cherise Staples MD [address] [place] [address] PCP - General 07/31/10 10/04/19 documented as of this encounter
--- OUTSIDE RECORDS SUMMARY | 2024-08-20 06:26 | XMS_ITS | Encounter Summary ---
Author Organization [facility] [place] [address] Care Team Providers Care Impersonator Character Name Role Phone Cherise Staples MD Primary Care Provider [phone] Reason for Visit * Reason Comments Nephrolithiasis Phimosis Encounter Details Date Type Department Care Team (Late st Contact Info) Description 06/17/2012 11:40 AM EDT Follow-[place] [phone] CLINIC, Edyta Hussein Jr., MD [facility] [place] [address] Nephrolithiasis (Primary Dx); Phimosis Discharge Disposition: Home Social History Tobacco Use Types Packs/Day Years Used Date Smoking Tobacco: Former Smokeless Tobacco: Never Sex and Gender Information Value Date Recorded Sex Assigned at Not on file Gender Identity Not on file Sexual Orientation Not on file documented as of this encounter Last Filed Vital Signs Vital Sign Reading Time Taken Comments Blood Pressure 154/102 06/17/2012 11:28 AM EDT Pulse 94 06/17/2012 11:28 AM EDT Temperature - - Respiratory Rate 24 06/17/2012 11:28 AM EDT Oxygen Saturation - - Inhaled Oxygen Concentration - - Weight 176.9 kg (390 lb) 06/17/2012 11:28 AM EDT Height 177.8 cm (5' 10) 06/17/2012 11:28 AM EDT Body Mass Index 55.96 06/17/2012 11:28 AM EDT documented in this encounter Progress Notes * Edyta Arambula Jr., MD - 06/17/2012 12:08 PM EDT Subjective: Patient ID: Lazaro Crouch is a 66 y.o. male. HPI Mr. Crouch is a pleasant 66 years old man with >10yr h/o recurrent urolithiasis who returns for urologic follow up regarding his uric acid stones, as well as for phimosis. He has not passed any stones since PCNL in 04/2009. He has not had any lateralizing abdominal or flank pain. He has not had febrile UTIs, hematuria, or new LUTS. He remains on urocit k (20meq daily), is tolerating it well. He had also noticed narrowing of his foreskin, with difficulty retracting his foreskin. He was started on steroid cream by his PCP and has been using it intermittently. I had recommended he consider either dorsal slit or circumcision. In the interval since his last visit, he opted to proceed with circumcision, but had it done in [facility]. He noted that he has had problems with the scrotum pulled right up to the penis. He has not passed any additional stones. Past medical history: urolithiasis, obesity, CAD ([place] age 52), HTN, h/o gout; atrial fibrillation Past surgical history:bilateral hip replacements (5 years ago), cardiac stent placement, appendectomy, right pcnl Family history: sister with history of urolithiasis Social History: no tobacco history; occ'l alcohol use Review of Systems Constitutional: Negative for fever. Gastrointestinal: Negative for abdominal pain. Genitourinary: Positive for penile pain. Negative for hematuria and flank pain. Musculoskeletal: Positive for back pain. Objective: Physical Exam Constitutional: He is oriented to person, place, and time. He appears well- developed and well-nourished. No distress. HENT: Head: Normocephalic and atraumatic. Cardiovascular: Normal rate. Pulmonary/Chest: Effort normal. Abdominal: Soft. He exhibits no distension. No tenderness. He has no rebound and no guarding. Genitourinary: Right testis shows no tenderness. Left testis shows no tenderness. Circumcised. No phimosis (penile shaft entirely buried, with glans approximated to scotal skin), penile erythema or penile tenderness. No discharge found. Neurological: He is alert and oriented to person, place, and time. Skin: Skin is warm and dry. He is not diaphoretic. Psychiatric: He has a normal mood and affect. His behavior is normal. Imaging studies: I independently reviewed the CT from today. This reveals tiny (subcm) punctate non-obstructing renal stones (right(approx 5) > left (1-2), no evidence of hydronephrosis or hydroureter. Assessment and Plan: Impression/Plan: 1)Urolithiasis--no significant stone growth or interval episodes of renal colic. He will continue potassium citrate and hydration. I have ordered a follow up renal u/s and BMP in 9 months. 2)Buried penile shaft s/p circumcision. We discussed mgmt options, and I explained that if this causes pain or any functional problem, repairs are possible. I would have him see our reconstructive urologist, Dr Santiago. At this point, he states there is neither pain nor functional difficulty with urination. He has ED and thus does not anticipate sexual functional issue at this time. I reminded himthat if concerns arise, he should contact us to further assess. documented in this encounter Plan of Treatment Not on file documented as of this encounter Results * US retroperitoneal complete (03/30/2013 11:27 AM EDT) Anatomical Region Laterality Modality Abdomen Ultrasound 03/30/2013 11:2 7 AM EDT Narrative 03/30/2013 12:15 PM EDT ? Renal ? (Signed Final 03/30/2013 12:15 pm) Patient Info ID: ? [id number] ? : [birth year] (67 yrs) Name: ? LAZARO CROUCH ?Visit Date: 03/30/2013 11:18 am Performed By Performed By: ?Eli Macias RDMS Associate: ? Mehran SPIVEY, Christoph Tapia Attending: ? Jane Aguilar MD Referred By: ? EDYTA ARAMBULA Service(s) Provided URETRO - Retroperitoneal Complete - [id number] ? [id number] Indications History of kidney stones Comparison Renal [...] Final 03/30/2013 12:15 pm) Patient Info ID: [id number] : [birth year] (67 yrs) Name: LAZARO CROUCH Visit Date: 03/30/2013 11:18 am Performed By Performed By: Eli Macias RDMS Associate: Christoph Laurent MD Attending: Jane Aguilar MD Referred By: EDYTA ARAMBULA Service(s) Provided URETRO - Retroperitoneal Complete - [id number] Indications History of kidney stones Comparison Renal [...] and interpretation reviewed by the attending Edyta Arambula Jr., MD IMG US GEN ORDERAB LES documented in this encounter Visit Diagnoses Diagnosis Nephrolithiasis- Primary Calculus of kidney Phimosis Redundant prepuce and phimosis Nephrolithiasis Calculus of kidney documented in this encounter Care Teams Impersonator Character Relationship Specialty Start Date End Date Cherise Staples MD [address] [place] [address] PCP - General 07/31/10 10/04/19 documented as of this encounter
--- OUTSIDE RECORDS SUMMARY | 2024-08-20 06:26 | XMS_ITS | Encounter Summary ---
[place] [address] Care Team Providers Care Portable Grinding Machine Operator Name Role Phone Cherise Staples MD Primary Care Provider [phone] Encounter Details Date Type Department Care Team (Late st Contact Info) Description 01/05/2014 10:07 AM EDT - 01/05/2014 11:59 PM EDT Hospital [place] [id number] Urolithiasis Social History Tobacco Use Types Packs/Day Years [...] Associated Diagnosis Comments US RETROPERITONEAL COMPLETE Routine 01/05/2014 11:00 AM EDT Urolithiasis documented in this encounter Results * US retroperitoneal complete (01/05/2014 11:00 AM EDT) Anatomical Region Laterality Modality Abdomen Ultrasound 01/05/2014 11:0 0 AM EDT Narrative 01/05/2014 11:17 AM EDT ? Renal ? (Signed Final 01/05/2014 11:16 am) Patient Info ID: ? [id number] ? : [birth year] (68 yrs) Name: ? LAZARO SUAIO ?Visit Date: 01/05/2014 10:54 am Performed By Performed By: ?Rosaura Fournier RDMS Attending: ? Miguel SPIVEY, Ryan Kwon Referred By: ? EDYTA ARANDA Service(s) Provided URETRO - Retroperitoneal Complete - [id number] ? [id number] Indications History of kidney stones Comparison Ultrasound: [...] Final 01/05/2014 11:16 am) Patient Info ID: [id number] : [birth year] (68 yrs) Name: LAZARO CROUCH Visit Date: 01/05/2014 10:54 am Performed By Performed By: Rosaura Fournier RDMS Attending: Ryan Rivera MD Referred By: EDYTA ARANDA Service(s) Provided URETRO - Retroperitoneal Complete - [id number] Indications History of kidney stones Comparison Ultrasound: [...] Signed Final Report 01/05/2014 11:16 am Edyta Aranda Jr., MD IMG GEN ORDERAB LES documented in this encounter Visit Diagnoses Diagnosis Urolithiasis Urinary calculus, unspecified documented in this encounter Care Teams Portable Grinding Machine Operator Relationship Specialty Start Date End Date Cherise Staples MD [address] [place] [id number] PCP - General 07/31/10 10/04/19 documented as of this encounter
--- OUTSIDE RECORDS SUMMARY | 2024-08-20 06:27 | XMS_ITS | Encounter Summary ---
Author Organization [facility] [place] [address] Care Team Providers Care Byproducts Operator Name Role Phone Cherise Staples MD Primary Care Provider [phone] Reason for Visit * Reason Onset Date Comments Results 09/11/2011 Encounter Details Date Type Department Care Team (Late st Contact Info) Description 09/11/2011 [place] [address] Fabricio Aranda Jr., MD [facility] [address] Results Social History Tobacco Use Types Packs/Day Years Used Date Smoking Tobacco: Former Smokeless Tobacco: Never Sex and Gender Information Value Date Recorded Sex Assigned at Not on file Gender Identity Not on file Sexual Orientation Not on file documented as of this encounter Miscellaneous Notes * Telephone Encounter - Fabricio Aranda Jr., MD - 09/11/2011 9:04 AM EST I called and reviewed BMP with him. Potassium within normal limits. I recommended he have serum potassium rechecked in approximately 1 month after returning to his planned urocit k dose. He will discuss having it done locally via his pcp documented in this encounter Plan of Treatment Not on file documented as of this encounter Visit Diagnoses Not on filedocumented in this encounter Care Teams Byproducts Operator Relationship Specialty Start Date End Date Cherise Staples MD [address] [place] [address] PCP - General 07/31/10 10/04/19 documented as of this encounter
--- OUTSIDE RECORDS SUMMARY | 2024-08-20 06:27 | XMS_ITS | Encounter Summary ---
Author Organization [facility] [place] [address] Care Team Providers Care Wireless Engineer Name Role Phone Cherise Staples MD Primary Care Provider [phone] Encounter Details Date Type Department Care Team (Late st Contact Info) Description 01/22/2011 [place] [address] Edyta Arambula Jr., MD [facility] [place] [address] Nephrolithiasis (Primary Dx) Social History Tobacco Use Types Packs/Day Years Used Date Smoking Tobacco: Never Assessed Sex and Gender Information Value Date Recorded Sex Assigned at Not on file Gender Identity Not on file Sexual Orientation Not on file documented as of this encounter Plan of Treatment Not on file documented as of this encounter Results * (ABNORMAL) Basic metabolic panel (09/10/2011 11:01 AM EST) Glucose 104 60 - 199 mg/dL CERNER MILLENNIUM Comment:Diabetes: >=200 mg/d L plus symptoms Blood Urea Nitrogen 21(H) 10 - 20 mg/dL CERNER MILLENNIUM Creatinine 0.99 0.80 - 1.50 mg/dL CERNER MILLENNIUM Sodium 140 135 - 145 mmol/L CERNER MILLENNIUM Potassium [...] Filtration Rate >60 >=60 CERNER MILLENNIUM Comment: The National Kidney Disease Education Program (NKDEP) has recommended all laboratories report estimated GFR (eGFR) along with plasma creatinine measurements to assist you with recognition of early kidney disease. Caveats: ??Plasma creatinine should be at steady-state (unchanged within the past week). For patients multiply eGFR by 1.2. The MDRD equation has not been validated for pediatric patients and is only valid for patients with age >= 18 years. At present, NKDEP does NOT recommend using the MDRD equation for drug dosing purposes and pharmacists should continue to use their current dosing methods. In addition, numerical eGFR values greater than 60 ml/min/1.73 square meters should be treated as > 60, and not an exact number due to greater inaccuracies at these higher values. Per NKDEP, they classify normal renal function as any GFR >60ml/min/1.73 square meters; chronic kidney disease when GFR <60, and renal failure when GFR <15. ??This calculation may not be valid for patients with atypical muscle mass (very lean or obese), acute renal failure, and in patients with diabetic kidney disease. References: http://nkdep.nih.gov/resources/NKDEP_Suggestn4Labs_0606_508.pdf http://www.kidney.org/professionals/kls/pdf/faq_gfr.pdf Blood specimen (specimen) 09/10/2011 11:01 AM EST 09/10/2011 11:08 AM EST Edyta Arambula Jr., MD CHEMISTRY ORDERABL ES MAXIMO NERI * US retroperitoneal complete (09/10/2011 10:38 AM EST) Anatomical Region Laterality Modality Abdomen Ultrasound 09/10/2011 10:3 8 AM EST Narrative 09/10/2011 11:07 AM EST ? Renal ? (Signed Final 09/10/2011 11:06 am) Patient Info ID: ? [id number] ? : ??[birth year] (66 yrs) Name: ? LAZARO CROUCH ?Visit Date: 09/10/2011 10:34 am Performed By Performed By: ?Isabel Mason [facility] Associate: ? Nick Armando MD Attending: ? Lauren SPIVEY, Jane Merchant Referred By: ? EDYTA ARAMBULA Service(s) Provided URETRO - Retroperitoneal Complete - [id number] ? [id number] Indications History of urolithiasis Comparison Renal and bladder ultrasound, 09/04/10. Right Kidney Size (cm) ?L: ??14.2 Cortical Thickness: ?Normal Cortical Echogenicity: ?? Normal Hydronephrosis: ?Mild pelvicaliectasis Comment: ?Scattered renal calculi, largest in lower pole ? approximately 11mm. Left Kidney Size (cm) ?L: ??14.8 Cortical Thickness: ?Normal Cortical Echogenicity: ?? Normal Hydronephrosis: ?Mild pelvicaliectasis Comment: ?Scattered renal calculi. Urinary Bladder Pre-void (cm) ? L: ??5.9 ? AP: ??5.2 ? TV: ??5.8 Vol (ml): ?93.2 Comment: ?Partially distended, grossly unremarkable. Impression Ultrasound - ??Retroperitoneal Complete - Summary 1.) ??Scattered bilateral renal stones, largest in right renal lower pole measuring approximately 11 mm. 2.) ??Bilateral mild pelvicaliectasis unchanged from prior ultrasound 09/04/2010. 3.) ??Bladder grossly unremarkable for degree of distention. I ??viewed the images and agree with the above interpretation. Thank you for allowing us to participate in the care of LAZARO CROUCH. Please do not hesitate to call if you have any questions. ?Jane Aguilar MD Electronically Signed Final Report ?? 09/10/2011 11:06 am Film and interpretation reviewed by the attending Procedure Note Jane Aguilar MD - 09/10/2011 Renal (Signed Final 09/10/2011 11:06 am) Patient Info ID: [id number] : [birth year] (66 yrs) Name: LAZARO CROUCH Visit Date: 09/10/2011 10:34 am Performed By Performed By: Isabel Mason [facility] Associate: Nick Armando MD Attending: Jane Aguilar MD Referred By: EDYTA ARAMBULA Service(s) Provided URETRO - Retroperitoneal Complete - [id number] Indications History of urolithiasis Comparison Renal and bladder ultrasound, 09/04/10. Right Kidney Size (cm) L: 14.2 Cortical Thickness: Normal Cortical Echogenicity: Normal Hydronephrosis: Mild pelvicaliectasis Comment: Scattered renal calculi, largest in lower pole approximately 11mm. Left Kidney Size (cm) L: 14.8 Cortical Thickness: Normal Cortical Echogenicity: Normal Hydronephrosis: Mild pelvicaliectasis Comment: Scattered renal calculi. Urinary Bladder Pre-void (cm) L: 5.9 AP: 5.2 TV: 5.8 Vol (ml): 93.2 Comment: Partially distended, grossly unremarkable. Impression Ultrasound - Retroperitoneal Complete - Summary 1.) Scattered bilateral renal stones, largest in right renal lower pole measuring approximately 11 mm. 2.) Bilateral mild pelvicaliectasis unchanged from prior ultrasound 09/04/2010. 3.) Bladder grossly unremarkable for degree of distention. I viewed the images and agree with the above interpretation. Thank you for allowing us to participate in the care of LAZARO CROUCH. Please do not hesitate to call if you have any questions. Jane Aguilar MD Electronically Signed Final Report 09/10/2011 11:06 am Film and interpretation reviewed by the attending Edyta Arambula Jr., MD IMG US GEN ORDERAB LES documented in this encounter Visit Diagnoses Diagnosis Nephrolithiasis- Primary Calculus of kidney Nephrolithiasis Calculus of kidney documented in this encounter Care Teams Wireless Engineer Relationship Specialty Start Date End Date Cherise Staples MD [address] [place] [id number] PCP - General 07/31/10 10/04/19 documented as of this encounter
--- OUTSIDE RECORDS SUMMARY | 2024-08-20 06:27 | XMS_ITS | Encounter Summary ---
Author Organization [facility] [place] [address] Care Team Providers Care Churner Name Role Phone Cherise Staples MD Primary Care Provider [phone] Reason for Visit * Reason Comments Nephrolithiasis Encounter Details Date Type Department Care Team (Late st Contact Info) Description 09/10/2011 11:00 AM EST [place] [address] CLINIC, Edyta Hussein Jr., MD [facility] [place] [address] Nephrolithiasis (Primary Dx) Discharge Disposition: Home Social History Tobacco Use Types Packs/Day Years Used Date Smoking Tobacco: Former Smokeless Tobacco: Never Sex and Gender Information Value Date Recorded Sex Assigned at Not on file Gender Identity Not on file Sexual Orientation Not on file documented as of this encounter Last Filed Vital Signs Vital Sign Reading Time Taken Comments Blood Pressure 128/91 09/10/2011 11:13 AM EST Pulse 87 09/10/2011 11:13 AM EST Temperature - - Respiratory Rate - - Oxygen Saturation - - Inhaled Oxygen Concentration - - Weight 176.9 kg (390 lb) 09/10/2011 11:13 AM EST Height 176.5 cm (5' 9.5) 09/10/2011 11:13 AM ES T Body Mass Index 56.77 09/10/2011 11:13 AM EST documented in this encounter Progress Notes * Edyta Arambula Jr., MD - 09/10/2011 11:13 AM EST Subjective: Patient ID: Lazaro Crouch is a 66 y.o. male. HPI Mr. Crouch is a pleasant 66 years old man with >10yr h/o recurrent urolithiasis who returns for urologic follow up regarding his uric acid stones. In the interval since his last visit, he has been well. He has not pased any stones since PCNL in 04/2009. He has not had any lateralizing abdominal or flank pain. He has not had febrile UTIs, hematuria, or new LUTS. He has also noticed narrowingof his foreskin, with difficulty retracting his foreskin, although it still can be done. He was started on steroid cream by his PCP and has been using it for less than a month. He denies hematuria, nausea, vomiting, abominal or flank pain. He remains on urocit k (20meq daily although prescribed tid), is tolerating it well. Past medical history: urolithiasis, obesity, CAD (CA age 52), HTN, h/o gout; atrial fibrillation Past surgical history:bilateral hip replacements (5 years ago), cardiac stent placement, appendectomy, right pcnl Family history: sister with history of urolithiasis Social History: no tobacco history; occ'l alcohol use Review of Systems Constitutional: Negative for fever and chills. Gastrointestinal: Negative for abdominal pain. Genitourinary: Positive for penile pain. Negative for hematuria. Hematological: Bruises/bleeds easily (on coumadin). Objective: Physical Exam Vitals reviewed. Constitutional: He is oriented to person, place, and time. He appears well- developed. No distress. HENT: Head: Normocephalic and atraumatic. Cardiovascular: Normal rate. Pulmonary/Chest: No respiratory distress. Abdominal: Soft. He exhibits no mass. No tenderness. He has no rebound and no guarding. Genitourinary: Rectum normal and testes normal. Prostate is not enlarged (approx 40 gm, but base beyond reach of examining finger) and not tender. Right testis shows no mass, no swelling and no tenderness. Left testis shows no mass, no swelling and no tenderness. Uncircumcised. Phimosis (reducible but snug) present. No paraphimosis, hypospadias, penile erythema or penile tenderness. No discharge found. Neurological: He is alert and oriented to person, place, and time. Skin: Skin is warm and dry. He is not diaphoretic. Psychiatric: He has a normal mood and affect. His behavior is normal. Imaging Studies: I have independently reviewed the renal u/s from today. It reveals stable mild bilateral pelvicaliectasis, unchanged from prior. Bilateral nonobstructing calculi now also seen, largest approx 1 cm, right lower pole.. Prior laboratory studies: LAB RESULTS: [id number] LAZARO CROUCH Potassium Level Creatinine Calcium Level 01/11/2010 09 AM In-Lab In-Lab In-Lab 06/15/2009 11 AM 4.3 * 0.93 10.0 05/18/2009 10 AM 4.2 * 0.83 9.3 04/26/2009 06 PM 3.8 * 0.88 7.8 L ! indicates latest result within the time frame. * indicates a lab note is available. C,H,L indicates critical, high, or low result. 24 hour urine (10/21 and 10/22/2009): volume: [...] negative Stone analysis reveals 100% Uric acid Assessment and Plan: Impression/Plan: 1) Uric acid urolithiasis, with suspected interval stone growth He will return to urocit k at least 20meq bid. His potassium has been rechecked today, remains pending. We will repeat renal ultrasound in 3 months. We discussed repeat 24h urine, he declines this for now. 2)Mild phimosis. We discussed mgmt options, he declines circumcision at this time and will continue with steroid cream. We will re-examine in 3 months and I counseled him of need to return immediately if paraphimosisoccurs and he cannot retract foreskin to normal anatomic position after cleaning. documented in this encounter Plan of Treatment Not on file documented as of this encounter Results * US retroperitoneal complete (12/11/2011 11:09 AM EDT) Anatomical Region Laterality Modality Abdomen Ultrasound 12/11/2011 11:0 9 AM EDT Narrative 12/11/2011 11:14 AM EDT ? Renal ? (Signed Final 12/11/2011 11:13 am) Patient Info ID: ? [id number] ? : ??[birth year] (66 yrs) Name: ? LAZARO CROUCH ?Visit Date: 12/11/2011 10:54 am Performed By Performed By: ?Yareli Perez RDMS Attending: ? Flex Padilla MD Referred By: ? EDYTA ARAMBULA Service(s) Provided URETRO - Retroperitoneal Complete - [id number] ? [id number] Indications ?stones Right Kidney Size (cm) ?L: [...] Report ?? 12/11/2011 11:13 am Procedure Note Flex Padilla MD - 12/11/2011 Renal (Signed Final 12/11/2011 11:13 am) Patient Info ID: [id number] : [birth year] (66 yrs) Name: LAZARO CROUCH Visit Date: 12/11/2011 10:54 am Performed By Performed By: Yareli Perez [facility] Attending: Flex Padilla MD. Referred By: EDYTA ARAMBULA Service(s) Provided URETRO - Retroperitoneal Complete - [id number] Indications ?stones Right Kidney Size (cm) L: [...] Signed Final Report 12/11/2011 11:13 am Edyta Arambula Jr., MD IMG US GEN ORDERAB LES documented in this encounter Visit Diagnoses Diagnosis Nephrolithiasis- Primary Calculus of kidney Nephrolithiasis Calculus of kidney documented in this encounter Care Teams Churner Relationship Specialty Start Date End Date Cherise Staples MD [address] [place] [address] PCP - General 07/31/10 10/04/19 documented as of this encounter
--- OUTSIDE RECORDS SUMMARY | 2024-08-20 06:27 | XMS_ITS | Encounter Summary ---
Author Organization [facility] [place] [address] Care Team Providers Care Deputy General Counsel Name Role Phone Cherise Staples MD Primary Care Provider [phone] Encounter Details Date Type Department Care Team (Late st Contact Info) Description 09/04/2010 10:30 AM EST [place] [address] Fabricio Aranda Jr., MD [facility] [place] [address] Discharge Disposition: Home Social History Tobacco Use [...] on filedocumented in this encounter Care Teams Deputy General Counsel Relationship Specialty Start Date End Date Cherise Staples MD [address] [place] [address] PCP - General 07/31/10 10/04/19 documented as of this encounter
--- OUTSIDE RECORDS SUMMARY | 2024-08-20 06:27 | XMS_ITS | Encounter Summary ---
Author Organization [facility] [place] [address] Care Team Providers Care Manager Strategic Development Name Role Phone Nick Nettles MD Primary Care Provider [phone] Encounter Details Date Type Department Care Team (Late st Contact Info) Description 04/26/2009 [place] [address] Fabricio Aranda Jr., MD [facility] [address] Social History Tobacco Use Types Packs/Day Years Used Date Smoking Tobacco: Never Assessed Sex and Gender Information Value Date Recorded Sex Assigned at Not on file Gender Identity Not on file Sexual Orientation Not on file documented as of this encounter Plan of Treatment Not on file documented as of this encounter Procedures Procedure Name Priority Date/Time Associated Diagnosis Comments SURGICAL PATHOLOGY REPORT Routine 04/26/2009 5:19 PM EDT documented in this encounter Results * Surgical Pathology Report (04/26/2009 5:19 PM EDT) Surgical Pathology Report - [id number] ? Location: 2WST; [facility]; A The signing pathologist has (i) examined the relevant preparation(s) for the specimen(s) and (ii) rendered or confirmed the diagnosis(es). . ?Pathology Surgical Pathology Final Report Clinical Information Specimen Submitted: A - Right renal stones: Right kidney Clinical History: Large right renal stone Clinical Diagnosis: Large right renal stone Gross Description Labeled/Fixative: ? Right renal stones, right kidney, fresh. Quantity/Size: ?Multiple, 3.0 x 2.0 x 2.0 cm in aggregate. Tissue Description: ?? Fragmented yellow calculi. Sections/Process: ? Website Optimization Strategist portion is submitted for chemical ?analysis. ? phil/SNS Diagnosis Right renal calculus (see Comment). CR-0 05/01/09 [facility] 05/01/09 Verified by: ? Ge SPIVEY, Steve Baum ?Pathologist ?(Electronic Signature) The attending pathologist whose signature appears on this report has reviewed all diagnostic slides and has edited the gross and/or microscopic portion of the report in rendering the final pathologic diagnosis. Comment The Report of Stone Analysis, order # [id number], has been received from the [facility], [address] [place] [address] [place] [place], [place] [id number]. For the full text of the [facility] report please refer to Non- Documentation Pathology in the Clinical Information System (CIS). MAXIMO NERI 04/26/2009 5:19 PM EDT Fabricio Aranda Jr., MD PATHOLOGY/CYTOLOGY ORDERABLES MAXIMO NERI documented in this encounter Visit Diagnoses Not on filedocumented in this encounter Care Teams Manager Strategic Development Relationship Specialty Start Date End Date Nick Nettles MD [address] [place] [address] PCP - General Internal Medicine 10/05/19 documented as of this encounter
--- OUTSIDE RECORDS SUMMARY | 2024-08-20 06:27 | XMS_ITS | Encounter Summary ---
[place] [address] Care Team Providers Care Voice Intercept Technician Name Role Phone Cherise Staples MD Primary Care Provider [phone] Encounter Details Date Type Department Care Team (Latest Contact Info) Description 09/10/2011 10:00 AM EST - 09/10/2011 11:59 PM EST Hospital [place] [address] Nephrolithiasis Social History Tobacco Use Types Packs/Day Years Used Date Smoking Tobacco: Former Smokeless Tobacco: Never Sex and Gender Information Value Date Recorded Sex Assigned at Not on file Gender Identity Not on file Sexual Orientation Not on file documented as of this encounter Medications at Time of Discharge Medication Sig Dispensed Refills Start Date End Date aspirin 81 mg EC tablet Take 81 mg by mouth daily. 11/23/2014 lisinopril (PRINIVIL;ZESTRIL) 40 mg tablet 09/04/2010 09/20/2014 furosemide (LASIX) 40 mg tablet 09/04/2010 09/09/2014 Potassium Citrate (UROCIT-K 10) 10 mEq TbSR 20 MEQ = 2 Tablet(s) PO Three times daily 09/04/2010 11/14/2011 atorvastatin (LIPITOR) 40 mg tablet 09/04/2010 09/09/2014 documented as of this encounter Plan of Treatment Not on file documented as of this encounter Procedures Procedure Name Priority Date/Time Associated Diagnosis Comments US RETROPERITONEAL COMPLETE Routine 09/10/2011 10:38 AM EST Nephrolithiasis documented in this encounter Results * US retroperitoneal complete (09/10/2011 10:38 AM EST) Anatomical Region Laterality Modality Abdomen Ultrasound 09/10/2011 10:3 8 AM EST Narrative 09/10/2011 11:07 AM EST ? Renal ? (Signed Final 09/10/2011 11:06 am) Patient Info ID: ? [id number] ? : ??[birth year] (66 yrs) Name: ? LAZARO CROUCH ?Visit Date: 09/10/2011 10:34 am Performed By Performed By: ?Isabel Mason [facility] Associate: ? Prabha SPIVEY, Nick Attending: ? Lauren SPIVEY, Jane Merchant Referred By: ? EDYTA ARANDA Service(s) Provided URETRO - Retroperitoneal Complete - [id number] ? [id number] Indications History of urolithiasis Comparison Renal and [...] Final 09/10/2011 11:06 am) Patient Info ID: [id number] : [birth year] (66 yrs) Name: LAZARO CROUCH Visit Date: 09/10/2011 10:34 am Performed By Performed By: Isabel Mason [facility] Associate: Nick Armando MD Attending: Jane Aguilar MD Referred By: EDYTA ARANDA Service(s) Provided URETRO - Retroperitoneal Complete - [id number] Indications History of urolithiasis Comparison Renal and [...] kidney documented in this encounter Care Teams Voice Intercept Technician Relationship Specialty Start Date End Date Cherise Staples MD [address] [place] [address] PCP - General 07/31/10 10/04/19 documented as of this encounter
--- OUTSIDE RECORDS SUMMARY | 2024-08-20 06:27 | XMS_ITS | Encounter Summary ---
Author Organization [facility] Address [facility] [place] [address] Care Team Providers Care Director Of Accounts Payable Name Role Phone Cherise Staples MD Primary Care Provider [phone] Encounter Details Date Type Department Care Team (Latest Contact Info) Description 09/10/2011 9:10 AM [facility] - 09/10/2011 11:59 PM [facility] Hospital [place] [address] Fabricio Aranda Jr., MD [facility] [place] [address] Nephrolithiasis Discharge Disposition: Home Social History Tobacco [...] Associated Diagnosis Comments BASIC METABOLIC PANEL Routine 09/10/2011 11:01 AM EST Nephrolithiasis documented in this encounter Results * (ABNORMAL) Basic metabolic [...] 11:01 AM EST 09/10/2011 11:08 AM EST Fabricio Aranda Jr., MD CHEMISTRY ORDERABL ES [facility] documented in this encounter Visit Diagnoses Diagnosis Nephrolithiasis Calculus of kidney documented in this encounter Care Teams Director Of Accounts Payable Relationship Specialty Start Date End Date Cherise Staples MD [address] [place] [address] PCP - General 07/31/10 10/04/19 documented as of this encounter
--- OUTSIDE RECORDS SUMMARY | 2024-08-20 06:27 | XMS_ITS | Encounter Summary ---
[place] [address] Care Team Providers Care Director Of Engineering Name Role Phone Cherise Staples MD Primary Care Provider [phone] Encounter Details Date Type Department Care Team (Late st Contact Info) Description 09/04/2010 10:00 AM EST Procedure visit [place] [address] Social History Tobacco Use Types Packs/Day Years Used Date Smoking Tobacco: Never Assessed Sex and Gender Information Value Date Recorded Sex Assigned at Not on file Gender Identity Not on file Sexual Orientation Not on file documented as of this encounter Plan of Treatment Not on file documented as of this encounter Visit Diagnoses Not on filedocumented in this encounter Care Teams Director Of Engineering Relationship Specialty Start Date End Date Cherise Staples MD [address] [place] [address] PCP - General 07/31/10 10/04/19 documented as of this encounter
--- NOTE | 2024-08-20 06:32 | ED.GENADUL_ITS ---
Discharge Plan Discharge Details Chief Complaint: GenMedical Clinical Impression: Generalized weakness, Venous stasis ulcer, Morbid obesity, Edema of lower extremity, Acute exacerbation of CHF (congestive heart failure), COVID-19 Primary Care Provider: Ginette Villavicencio ED Provider: Amber Garcia Home Meds and New Rx's Prescriptions: No Action tirzepatide 2.5 mg/0.5 mL pen injector 2.5 mg subcut QWEEK isosorbide mononitrate 10 mg tablet 10 mg PO BID Rx Instructions: give doses 7 hrs apart metoprolol succinate 100 MG tablet extended release 24 hr 200 mg PO DAILY nitroglycerin 0.4 MG tablet, sublingual 0.4 mg Sublingual PRN PRN (Reason: Chest Pain) lisinopril 40 MG tablet 20 mg PO DAILY furosemide 40 mg tablet 10 mg PO QAM potassium citrate 10 MEQ tablet extended release 20 meq PO BID allopurinol 300 MG tablet 300 mg PO DAILY Acetaminophen [Tylenol] 650 mg PO Q4H PRN PRNQty: 0 0RF polyethylene glycol 3350 17 gram Powder In Packet 17 g PO DAILY PRN PRN (Reason: Constipation) Qty: 0 0RF Patient Comments: 11/28/22: not taking docusate sodium [Colace] 100 mg Capsule 100 mg PO TID PRN PRNQty: 0 0RF cholecalciferol (vitamin D3) 125 mcg (5,000 unit) capsule 125 mcg PO DAILY diphenhydramine HCl 25 mg Tablet 25 mg PO DIRECTED PRN nystatin 100,000 unit/gram powder 1 applic topical TID Paxlovid 300 mg (150 mg x 2)-100 mg tablets,dose pack PO ezetimibe 10 mg tablet 10 mg PO DAILY Xarelto 20 mg tablet 20 mg PO DAILY betamethasone dipropionate 0.05 % cream 0.05 applic TOPICAL DAILY melatonin 3 mg capsule 3 mg PO HS PRNQty: 30 0RF Rx Instructions: PRN sleep HPI General Mode of arrival: EMS . Date/Time Provider Initiated Documentation: 08/20/24 06:01 . Limitations to Documentation: no limitations . Information obtained by: patient, EMS and old records reviewed . HPI Narrative: 78yo M with hx obesity, poor baseline ambulation, frequent falls, LE edema, venous stasis ulcers, afib, CHF, CAD, DM, TOM, presenting via EMS for generalized weakness. Recently diagnosed with COVID; had respiratory symptoms and so he tested, but he has been asymptomatic. Is taking Paxlovid. Yesterday evening around 10pm got stuck on the toilet and was unable to get up. Remained there overnight, found him at ~0530 in the morning and called EMS. He reports feeling generally weak all over, worse than usual. No recent fall. No pain anywhere. No focal weakness. No numbness or tingling. No fevers, chills, rash, chest pain, shortness of breath, nausea, or vomiting. LE edema is at baseline. Otherwise in his usual state of health. Related Data Home Medications ?Medication ?Instructions ?Recorded ?Confirmed lisinopril 40 mg tablet 20 mg PO DAILY 09/07/14 08/20/24 metoprolol succinate 100 mg 200 mg PO DAILY 09/07/14 08/20/24 tablet,extended release 24 hr nitroglycerin 0.4 mg sublingual 0.4 mg sublingual PRN PRN Chest 09/07/14 08/20/24 tablet Pain allopurinol 300 mg tablet 300 mg PO DAILY 12/30/16 08/20/24 potassium citrate 10 mEq (1,080 20 meq PO BID 12/30/16 08/20/24 mg) tablet,extended release Acetaminophen [Tylenol] 650 mg PO Q4H PRN PRN ##0 11/06/21 08/20/24 docusate sodium 100 mg capsule 100 mg PO TID PRN PRN #0 caps 08/26/22 08/20/24 (Colace) polyethylene glycol 3350 17 gram 17 g PO DAILY PRN PRN Constipation 08/26/22 08/20/24 oral powder packet #0 ea diphenhydramine HCl 25 mg tablet 25 mg PO DIRECTED PRN 11/28/22 08/20/24 nystatin 100,000 unit/gram topical 1 applic topical TID 11/28/22 08/20/24 powder cholecalciferol (vitamin D3) 125 125 mcg PO DAILY 12/18/22 08/20/24 mcg (5,000 unit) capsule furosemide 40 mg tablet 10 mg PO QAM 02/09/23 08/20/24 isosorbide mononitrate 10 mg tablet 10 mg PO BID 10/02/23 08/20/24 tirzepatide 2.5 mg/0.5 mL 2.5 mg subcut QWEEK 10/02/23 08/20/24 subcutaneous pen injector betamethasone dipropionate 0.05 % 0.05 applic topical DAILY 02/24/24 08/20/24 topical cream ezetimibe 10 mg tablet 10 mg PO DAILY 02/24/24 08/20/24 rivaroxaban 20 mg tablet (Xarelto) 20 mg PO DAILY 02/24/24 08/20/24 melatonin 3 mg capsule 3 mg PO HS PRN #30 caps 02/27/24 08/20/24 nirmatrelvir 300 mg (150 mg dose pk PO 08/20/24 x2)-ritonavir 100 mg tablet,dose pack (Paxlovid) Previous Rx's ?Medication ?Instructions ?Recorded Acetaminophen [Tylenol] 650 mg PO Q4H PRN PRN ##0 11/06/21 docusate sodium 100 mg capsule 100 mg PO TID PRN PRN #0 caps 08/26/22 (Colace) polyethylene glycol 3350 17 gram 17 g PO DAILY PRN PRN Constipation 08/26/22 oral powder packet #0 ea melatonin 3 mg capsule 3 mg PO HS PRN #30 caps 02/27/24 Allergies Allergy/AdvReac Type Severity Reaction Status Date / Time metformin AdvReac DIARRHEA Verified 08/20/24 06:00 General Stated Complaint: GenMedical NADINE: 3 Review of Systems Narrative: see HPI Exam Narrative Exam Narrative: GENERAL: Alert, no acute distress. HEAD: Atraumatic, normocephalic without edema, discoloration or evidence of trauma. EYES: PERRL. No scleral icterus or conjunctival injection. Extraocular muscles intact without nystagmus or diplopia. MOUTH: . Moist mucus membranes without blood. NECK: Trachea midline. No discolorations or edema. CV: Irregular. Normal s1 and s2. No murmurs, rubs, or gallops. PV: Radial pulses 2+ bilaterally and symmetric. CHEST: Chest symmetric with respirations. Lungs are clear to auscultation bilaterally. ABDOMEN: No ecchymosis or abrasions. Soft, nondistended, nontender. Malodorous erythematous rash in pannus suggestive of alfredo. BACK: No abrasions, skin openings, or ecchymosis. Spine without bony tenderness, no step offs. PELVIC: Pelvis stable, nontender to lateral compression : Normal external genitalia without blood at meatus. MSK: Echymosis to right knee with no effusion on tenderness. Tolerates full range of motion of extremities without tenderness. BLE edema and venous stasis ulcers. Neuro: ? GCS 15.? PERRL.? EOMI.? Fluent speech, no dysarthria. Motor- 4/5 strength symmetric bilateral upper and lower extremities Sensation- ?Intact to light touch and symmetric multiple dermatomes including upper and lower extremities Course Vital Signs Vital signs: Vital Signs Pulse 77 08/20/24 05:51 Respiratory Rate 18 08/20/24 05:51 Pulse Oximetry 98 08/20/24 05:51 Pulse 77 08/20/24 05:51 Respiratory Rate 18 08/20/24 05:57 Respiratory Effort Normal 08/20/24 05:57 Respiratory Depth Normal 08/20/24 05:57 Respiratory Pattern Normal 08/20/24 05:57 Pulse Oximetry 98 08/20/24 05:51 Oxygen Delivery Method Room Air 08/20/24 05:51 Oxygen Flow Rate 0 08/20/24 05:51 Medical Decision Making 78yo M with hx obesity, poor baseline ambulation, frequent falls, LE edema, venous stasis ulcers, afib, CHF, CAD, DM, TOM, presenting via EMS for generalized weakness. Recently diagnosed with COVID; had respiratory symptoms and so he tested, but he has been asymptomatic. Overnight unable to get up off the toilet, stayed there for about 8 hours before wound him and called EMS. Vital signs reassuring on arrival. Pronounced venous stasis on BLE, symmetric LE edema, rash in left panus consistent with alfredo. No respiratory distress. No focal weakness to suggest stroke; would not get CT or MRI imaging. EKG afib, rate in 70's, no ST segment or T wave abnormalities to suggest occlusive [place]. Labs reviewed as below, CBC reassuring with no leukocytosis or anemia, CMP with no actionable abnormalities, CK normal (not rhabdomyolsis), troponin normal, BNP elevated at 2400 (higher than baseline). CXR independently reviewed, no focal pneumonia on my view, diffuse infiltrate consistent with pulmonary edema. With edema on exam and infiltrate on XR with elevated BNP, will treat with low dose lasix. Signed out to oncoming physician, plan to followup UA and physical therapy eval. Suspect pt will most likely need admission. Lab Data Lab results reviewed: Yes I reviewed the patient's lab results. Labs: Laboratory Tests Range/Units 08/20/24 06:00 WBC (4.4-10.8) 10^3/uL 10.28 RBC (4.36-5.78) 10^6/uL 5.08 Hgb (13.5-17.5) g/dL 16.2 Hct (40.0-50.0) % 49.5 MCV (80-95) fL 97 H MCH (27.0-33.0) pg 31.9 MCHC (32.0-36.0) % 32.7 RDW (11.8-14.1) % 14.1 Plt Count (130-400) 10^3/uL 290 MPV (8.0-11.0) fL 9.3 Immature Gran % % 0.5 Neutrophils % % 86.4 Lymphocytes % % 3.4 Monocytes % % 9.0 Eosinophils % % 0.1 Basophils % % 0.6 Nucleated RBC % (0.0-0.3) % 0.0 Absolute Neutrophils (1.2-6.7) 10^3/uL 8.88 H Absolute Lymphocytes (1.2-3.4) 10^3/uL 0.35 L Absolute Monocytes (0.1-0.8) 10^3/uL 0.93 H Absolute Eosinophils (0.0-0.7) 10^3/uL 0.01 Absolute Basophils (0.0-0.2) 10^3/uL 0.06 Sodium (136-145) mmol/L 140 Potassium (3.5-5.1) mmol/L 4.0 Chloride (98-107) mmol/L 104 Carbon Dioxide (21.0-32.0) mmol/L 24.2 Anion Gap (3-11) mmol/L 11.8 H BUN (7-18) mg/dL 21 H Creatinine (0.70-1.30) mg/dL 0.9 Est GFR (CKD-EPI 2020) (mL/min/1.73m2) 88.51 Glucose (74-106) mg/dL 148 H Calcium (8.5-10.1) mg/dL 9.6 Magnesium (1.8-2.4) mg/dL 1.8 Total Bilirubin (0.2-1.0) mg/dL 0.83 AST (15-37) U/L 40 H ALT (16-63) U/L 44 Alkaline Phosphatase (46-116) U/L 148 H Creatine Kinase (39-308) U/L 166 Troponin I (<or=76) ng/L 41 NT-Pro-B Natriuret Pep (<300) pg/mL 2429 H Total Protein (6.4-8.2) g/dL 7.5 Albumin (3.4-5.0) g/dL 3.4 Quality:SDOH Health Related Social Needs: Health related social needs housing instability, house d, with risk of homelessness(Z59.811) PFSH All Active Problems (Updated 08/20/24 @ 07:51 by Amber Garcia MD) COVID-19 (Acute) Acute exacerbation of CHF (congestive heart failure) (Acute) Generalized weakness (Acute) Shoulder pain (Acute) Edema of lower extremity (Acute) Pressure sore on buttocks (Acute) At high risk for skin breakdown (Acute) Bilateral leg weakness (Acute) Weight loss due to medication (Acute) Chest pain (Acute) Physician orders for life-sustaining treatment (POLST) form indicates patient wish for [id number] status (Acute) Advance care planning (Acute) Palliative care patient (Acute) HFrEF (heart failure with reduced ejection fraction) (Chronic) Ambulatory dysfunction (Acute) Bilateral leg weakness (Acute) Lumbago (Chronic) Non compliance with medical treatment (Acute) Trochanteric bursitis, left hip (Acute) H/O surgical procedure (Chronic) a. Bilateral hip replacement b. Nephrolithotomy c. Right ureteral stent placement d. Coronary artery stent placement 2006 e. Adult circumcision f. Colonoscopy 11/2013 History of revision of total replacement of left hip joint (Acute 11/01/20) Acetabular revision with head/liner exchange for fractured femoral head prosthesis. Pure hypercholesterolemia, unspecified (Acute) Cerumen impaction (Acute) Type 2 diabetes mellitus without complications (Chronic) Neoplasm of unspecified behavior of bone, soft tissue, and skin (Acute) Nasal dryness (Acute) Acute cholecystitis (Acute 09/07/14) Morbid obesity (Chronic) CAD (coronary artery disease) (Chronic) a. coronary artery stent placement 2006 Personal history of pulmonary embolism (Chronic) Hypertension (Chronic) TOM (obstructive sleep apnea) (Chronic) Personal history of kidney stones (Chronic) a. uric acid stones Venous stasis ulcer (Chronic) Venous (peripheral) insufficiency (Chronic) Medical History Body mass index (BMI) 50.0-59.9, adult Venous stasis ulcer of left lower extremity HNP (herniated nucleus pulposus), lumbar Relative polycythemia Failed total hip arthroplasty Heart failure with preserved ejection fraction CAD (coronary artery disease) Cholangitis Nephrolithiasis Phimosis Pulmonary embolism Hx of pulmonary artery thrombosis Venous stasis ulcer of ankle limited to breakdown of skin without varicose veins Anticoagulant long-term use Atrial fibrillation Surgical History H/O bilateral hip replacements Social History Smoking/Tobacco Use Status: Former Tobacco Use Smoking risk assessment performed?: Yes Alcohol Intake: never Drug use: Never Substance use type: does not use Household members: spouse Housing: house What is your relationship status?: Panel score (0-1 are the most socially isolated patients): 1 Do you feel safe at home: Yes Do you feel safe in your relationship?: Yes
[2024-08-20 06:46] LABS: Abs Immature Grans 0.05 10^3/uL (0.0-0.06); Absolute Basophil Count 0.06 10^3/uL (0.0-0.2); Absolute Eosinophil Count 0.01 10^3/uL (0.0-0.7); Absolute Lymphocyte Count 0.35 10^3/uL (1.2-3.4); Absolute Monocyte Count 0.93 10^3/uL (0.1-0.8); Absolute Neutrophil Count 8.88 10^3/uL (1.2-6.7); Basophils % 0.6 %; Eosinophils % 0.1 %; HCT 49.5 % (40.0-50.0); HGB 16.2 g/dL (13.5-17.5); Immature Grans % 0.5 %; Lymphocytes % 3.4 %; MCH 31.9 pg (27.0-33.0); MCHC 32.7 % (32.0-36.0); MCV 97 fL (80-95); MPV 9.3 fL (8.0-11.0); Neutrophils % 86.4 %; Platelet Count 290 10^3/uL (130-400); RBC 5.08 10^6/uL (4.36-5.78); RDW 14.1 % (11.8-14.1); RDW-SD 51.3 fL; WBC 10.28 10^3/uL (4.4-10.8)
[2024-08-20 07:26] LABS: ALT 44 U/L (16-63); AST 40 U/L (15-37); Albumin 3.4 g/dL (3.4-5.0); Alkaline Phosphatase 148 U/L (46-116); Anion Gap 11.8 mmol/L (3-11); BUN 21 mg/dL (7-18); Bilirubin, Total 0.83 mg/dL (0.2-1.0); CO2 24.2 mmol/L (21.0-32.0); CREATININE 0.9 mg/dL (0.70-1.30); Calcium 9.6 mg/dL (8.5-10.1); Chloride 104 mmol/L (98-107); Creatine Kinase 166 U/L (39-308); Estimated GFR 88.51 (mL/min/1.73m2); Glucose 148 mg/dL (74-106); Magnesium 1.8 mg/dL (1.8-2.4); NT-proBNP 2429 pg/mL (<300); Sodium 140 mmol/L (136-145); Total Protein 7.5 g/dL (6.4-8.2); Troponin I 41 ng/L (<or=76)
[2024-08-20] MEDS: Acetaminophen 500 MG TAB 1000 MG PO (07:29)
[2024-08-20 08:27] LABS: Bilirubin Negative (Negative); Blood Negative (Negative); Clarity Clear (Clear); Glucose Negative (Negative); Ketones Negative (Negative); Leukocyte Esterase Negative (Negative); Nitrite Negative (Negative); pH 5.5 (5-8)
[2024-08-20 08:28] LABS: Source Nasal/Nares
--- NOTE | 2024-08-20 08:28 | DI.VRAD_ITS ---
PROCEDURE INFORMATION: Exam: XR Chest Exam date and time: 08/20/2024 6:42 AM Age: 78 years old Clinical indication: Other: Covid TECHNIQUE: Imaging protocol: Radiologic exam of the chest. Views: 1 view. COMPARISON: CR XR CHEST 2V PA LATERAL 03/04/2023 11:07 AM FINDINGS: Lungs: Mild increase in interstitial markings diffusely without focal consolidation. Pleural spaces: Unremarkable. No pleural effusion. No pneumothorax. Heart/Mediastinum: Cardiomegaly which may be due to patient positioning. Bones/joints: Diffuse degenerative change of the visualized osseous structures. IMPRESSION: No acute cardiopulmonary findings. Dictated and Authenticated by: Zheng Christine MD. Ordering:ARIANA Clark MD
[2024-08-20 08:34] LABS: Bacteria Rare HPF (Negative); C & S Indicated? No; Casts 0-2 Hyaline LPF (Negative); Crystals Negative HPF (Negative); Epithelial Cells Rare HPF (Negative); Mucus Moderate (Negative); RBC 0-2 HPF (0-2); WBC 0-2 HPF (0-5)
--- NOTE | 2024-08-20 08:44 | PT.INIE ---
PT Notes Visit Reasons: [facility] Initial Evaluation Date: 08/20/2024 Referring Doctor:?Amber Garcia MD PT Orders: PT CONSULT: Safety Consult for D/C Precautions: Fall. Activity as tolerated. [place] PRECAUTIONS FOR COVID-[address] Patient Profile/Admitting Diagnosis:?? Patient is a 78-year-old male patient on palliative care who presented to the ED today via EMS due to generalized weakness with inability to transfer and walk short distances per prior level. PMHX: All Active Problems (Updated 08/20/24 @ 07:51 by Amber Garcia MD) COVID-19 (Acute) Acute exacerbation of CHF (congestive heart failure) (Acute) Generalized weakness (Acute) Shoulder pain (Acute) Edema of lower extremity (Acute) Pressure sore on buttocks (Acute) At high risk for skin breakdown (Acute) Bilateral leg weakness (Acute) Weight loss due to medication (Acute) Chest pain (Acute) Physician orders for life-sustaining treatment (POLST) form indicates patient wish for [id number] status (Acute) Advance care planning (Acute) Palliative care patient (Acute) HFrEF (heart failure with reduced ejection fraction) (Chronic) Ambulatory dysfunction (Acute) Bilateral leg weakness (Acute) Lumbago (Chronic) Non compliance with medical treatment (Acute) Trochanteric bursitis, left hip (Acute) H/O surgical procedure (Chronic) a. Bilateral hip replacement b. Nephrolithotomy c. Right ureteral stent placement d. Coronary artery stent placement 2006 e. Adult circumcision f. Colonoscopy 11/2013 History of revision of total replacement of left hip joint (Acute 11/01/20) Acetabular revision with head/liner exchange for fractured femoral head prosthesis. Pure hypercholesterolemia, unspecified (Acute) Cerumen impaction (Acute) Type 2 diabetes mellitus without complications (Chronic) Neoplasm of unspecified behavior of bone, soft tissue, and skin (Acute) Nasal dryness (Acute) Acute cholecystitis (Acute 09/07/14) Morbid obesity (Chronic) CAD (coronary artery disease) (Chronic) a. coronary artery stent placement 2006 Personal history of pulmonary embolism (Chronic) Hypertension (Chronic) TOM (obstructive sleep apnea) (Chronic) Personal history of kidney stones (Chronic) a. uric acid stones Venous stasis ulcer (Chronic) Venous (peripheral) insufficiency (Chronic) Medical History Body mass index (BMI) 50.0-59.9, adult Venous stasis ulcer of left lower extremity HNP (herniated nucleus pulposus), lumbar Relative polycythemia Failed total hip arthroplasty Heart failure with preserved ejection fraction CAD (coronary artery disease) Cholangitis Nephrolithiasis Phimosis Pulmonary embolism Hx of pulmonary artery thrombosis Venous stasis ulcer of ankle limited to breakdown of skin without varicose veins Anticoagulant long-term use Atrial fibrillation Surgical History H/O bilateral hip replacements Social History/Home Situation: Patient lives in a private home with a ramp to enter with his Leah. Alternatively, he has 3 RAJESH home with bilat rails. has been a very good support but is unable to physcally help patient with all mobility performance. Per baseline mobility level, patient is able to walk about 5 steps using baritric walker to tranfer to and from bedside commode. Uses wheelchair as main mode of mobility inside the house. Equipment Owned/DME: Hospital bed, FWW, elevated toilet seat, wheelchair, ramp Subjective:? Very weak and unable to sustain static standing. Unable to provide reliable history due to apparent mild confusion. Able to follow single step commands with need for repetition. Recalled that he has fallen about 2 times in the past year. Does not feel safe going home. Objective:? General Observation: Blister with a diameter of about 2 inches noted on the medial aspect of the middle third of L leg. Hematoma to R knee and distal thigh.R distal thigh and R knee hematoma noted and reported to Dr. Cazares. Resting in bed. Nurses Dee and Whitney helped with boosted patient up on stretcher with bed in Trendelenburg position. Mental Status: Alert and oriented only to person and place. Repetition needed throughout all session with patient unable to provide adequate history. ROM: Right Upper Extremity: Shoulder Flexion allows up to 100 degrees. Shoulder abduction allows up to 90 degrees. Elbow flexion WFL. Wrist flexion WFL. Functional opening and closing of hand WFL. Left Upper Extremity: Shoulder Flexion allows up to 100 degrees. Shoulder abduction allows up to 90 degrees. Elbow flexion WFL. Wrist flexion WFL. Functional opening and closing of hand WFL. Right Lower Extremity: Hip flexion unable to slide heel up actively due to weakness. Hip abduction WFL. Knee flexion unable to slide heel up actively due to weakness. Ankle dorsiflexion to neutral only. Ankle plantarflexion WFL. Left Lower Extremity: Hip flexion unable to slide heel up actively due to weakness. Hip abduction WFL. Knee flexion unable to slide heel up actively due to weakness. Ankle dorsiflexion to neutral only. Ankle plantarflexion WFL. Strength: Right Upper Extremity: Shoulder flexors 3-/5. Shoulder abductors 3-/5. Elbow flexors 4-/5. Elbow extensors 4-/5. Patient Resource Coordinator strong. Left Upper Extremity: Shoulder flexors 3-/5. Shoulder abductors 3-/5. Elbow flexors 4-/5. Elbow extensors 4-/5. Patient Resource Coordinator strong. Right Lower Extremity: Hip flexors 2-/5. Hip abductors 3-/5. Knee flexors 2-/5. Knee extensors 2-/5. Ankle dorsiflexors 2-/5. Ankle plantarflexors 3+/5. Left Lower Extremity:Hip flexors 2-/5. Hip abductors 3-/5. Knee flexors 2-/5. Knee extensors 2-/5. Ankle dorsiflexors 2-/5. Ankle plantarflexors 3+/5. Bed Mobility/Transfers: Minimal cueing provided for use of B hands as needed for support, movement sequence, AD management, and posture to reduce fall risk and minimize pain report Supine to sit moderate assist with HOB at 45 degrees Sit to stand moderate assist of 2 Sit to stand from high stretcher edge moderate assist of 2 Stand to sit minimal assist of 2 Bed to wheelchair UNABLE even with assist of 2 Gait:? UNABLE. Could not even stand back up to side step onto edge of stretcher so he could be positionied better. Balance:? Static Sitting: Fair Dynamic Sitting: Poor Static Standing: Unable Dynamic Standing: Unable Special Tests: Mobility Limitations Standardized Measure [facility] 6 clicks Basic Mobility Inpatient Short Form: Raw Score: 9 ? CMS Score: 81% deficit Informed Consent/Education:? Informed Consent/Education: Patient was instructed in purpose of PT consult and plan of care. Agreeable to proceed with established PT POC to achieve personal goals. Assessment:?? Patient at ED who presents with significant functional mobility decline, fearfulness of falling, decreased activity tolerance, high BMI, and co-morbidities as above limiting his ability to safely perform transfers and ambulation. Patient is at high risk for falls at this time and will beenfit from HH services. He requires skilled PT intervention to maximize safety and mobility to allow for safe return home, although may require brief rehab stay prior to doing so. Will see how he progresses and continue monitoring for discharge planning. He currently demonstrates the following impairment level findings: 1. Decreased B LE strength 2. Gait impairments 3. Fearfulness of falling 4. Confusion Impairments are contributing to the following functional limitations: 1. unable to ambulate household distances 2. unable to manage stairs into house 3. Deficit score of 81% on the [place] AMPA testing 4. Increased fall risk Patient is assessed as? Moderate 86648? complexity based on the following: History: Patient is a 78-year-old male patient on palliative care who presented to the ED today via EMS due to generalized weakness with inability to transfer and walk short distances per prior level. Examination: Impairments and functional limitations as above Presentation: Evolving Decision Makin moderate Complexity Goals: If patient gets admitted to acute level of care, will follow work on goals below: Goals X 1 week 1. Supine-Sit : supervision 2. Sit-Supine? : supervision 3. Sit-Stand? : supervision 4. Stand-Sit? : supervision 5. Bed-Chair? : supervision with FWW 6. Chair-Bed? : supervision with FWW 7. Gait? : supervision with FWW x 15' Plan of Care/Treatment Plan: 1-2x/day, 7 days/week x 1 week. Plan of care has been reviewed with the SCOUT SNIPER providing the service under Physical Therapy direction. Initiate Physical Therapy intervention for strengthening, bed mobility, transfers, gait, stairs, balance training, use of assistive device. DISCHARGE RECOMMENDATIONS: [] Home with no services [] [] Home with services [specify] [] Home with outpatient PT [] [] SNF for continued rehabilitation [] [] [facility] [] [] SNF versus LTC based on ability to participate and progress [] [X] Short-term rehab vs HH PT based on patient's progress towards goals TREATMENT CODE/TIME:? 01150 x 20 minutes for 1 unit, 9753 0 x 10 minutes for 1 unit (8:10-8:40). Thank you for the opportunity to participate in the care of this patient. Estrellita Alcazar PT, DPT, CLT [facility] [place], [place]
--- NOTE | 2024-08-20 08:53 | HPE_ITS ---
Date of service: 08/20/24 Time of Service: 09:45 Assessment and Plan Assessment and plan (1) COVID-19: Status: Acute Assessment and plan: Likely major contributor to weakness. No hypoxia. He is high risk, will treat with remdesavir, has less intereactions than paxlovid (2) Acute exacerbation of CHF (congestive heart failure): Status: Acute Assessment and plan: Mild HF exacerbation with elevated BNaP, s/p furosemide x 1 in ED. Will continue daily 20mg IV for now, monitor renal status. (3) Hypertension: Status: Chronic Assessment and plan: BP stable, continue outpatient medications. (4) Personal history of pulmonary embolism: Status: Chronic Assessment and plan: Continue rivaroxaban. (5) CAD (coronary artery disease): Status: Chronic (6) Atrial fibrillation: Assessment and plan: On DOAC, metoprolol. (7) Type 2 diabetes mellitus without complications: Status: Chronic Assessment and plan: Continue outpatient GLP-1 if he brings it in. His last A1c was 5.5% so has been well controlled on this. (8) Elevation of levels of liver transaminase levels: Status: Acute Assessment and plan: Not chronic. No EtOH. Possibly hepatic congestion. Monitor. History of Present Illness History of Present Illness Chief Complaint: weakness Narrative: 78 yo M with type 2 DM, HFpEF, CAD, TOM, HTN, atrial fibrillation annd h/o PE on rivaroxaban who tested positive for COVID at home a day prior and brought to the ED early this morning with severe fatigue. His has has URI symptoms and was diagnosed with COVID-19 a week ago. He started having weakness yesterday, COVID+ at home and Paxlovid sent by PCP. He has started to feel some mild sore throat and cough, not short of breath and no chest pain. He went to the bathroom last night around 10pm and could not get up off the toilet because he was so weak. No fall. His found him still on the toilet at around 5:30am and called EMS. He denies any current pain. He doesn't feel dizzy, just weak all over. No focal weakness. He has been eating and drinking, no nausea or vomiting, no diarrhea, normal urine output. He has leg swelling but this is near his baseline. He was evaluated in the emergency room by PT and needed 3 person assist to get to the chair from bed, was felt not safe for discharge. Review of Systems All systems reviewed & are unremarkable except as noted in HPI and below PFSH All Active Problems (Updated 08/20/24 @ 13:46 by Emmanuel Begum) Elevation of levels of liver transaminase levels (Acute) COVID-19 (Acute) Acute exacerbation of CHF (congestive heart failure) (Acute) Generalized weakness (Acute) Shoulder pain (Acute) Edema of lower extremity (Acute) Pressure sore on buttocks (Acute) At high risk for skin breakdown (Acute) Bilateral leg weakness (Acute) Weight loss due to medication (Acute) Chest pain (Acute) Physician orders for life-sustaining treatment (POLST) form indicates patient wish for ad-toc-kagqmpkhhiw status (Acute) Advance care planning (Acute) Palliative care patient (Acute) HFrEF (heart failure with reduced ejection fraction) (Chronic) Ambulatory dysfunction (Acute) Bilateral leg weakness (Acute) Lumbago (Chronic) Non compliance with medical treatment (Acute) Trochanteric bursitis, left hip (Acute) History of revision of total replacement of left hip joint (Acute 11/01/20) Acetabular revision with head/liner exchange for fractured femoral head prosthesis. Pure hypercholesterolemia, unspecified (Acute) Cerumen impaction (Acute) Type 2 diabetes mellitus without complications (Chronic) Neoplasm of unspecified behavior of bone, soft tissue, and skin (Acute) Nasal dryness (Acute) H/O surgical procedure (Chronic) a. Bilateral hip replacement b. Nephrolithotomy c. Right ureteral stent placement d. Coronary artery stent placement 2006 e. Adult circumcision f. Colonoscopy 11/2013 Venous (peripheral) insufficiency (Chronic) Venous stasis ulcer (Chronic) Personal history of kidney stones (Chronic) a. uric acid stones TOM (obstructive sleep apnea) (Chronic) Hypertension (Chronic) Personal history of pulmonary embolism (Chronic) CAD (coronary artery disease) (Chronic) a. coronary artery stent placement 2006 Morbid obesity (Chronic) Acute cholecystitis (Acute 09/07/14) Medical History Venous stasis ulcer of left lower extremity HNP (herniated nucleus pulposus), lumbar Relative polycythemia Failed total hip arthroplasty Heart failure with preserved ejection fraction CAD (coronary artery disease) Cholangitis Nephrolithiasis Phimosis Pulmonary embolism Hx of pulmonary artery thrombosis Venous stasis ulcer of ankle limited to breakdown of skin without varicose veins Body mass index (BMI) 50.0-59.9, adult Anticoagulant long-term use Atrial fibrillation Surgical History H/O bilateral hip replacements Social History Smoking/Tobacco Use Status: Former Tobacco Use Smoking risk assessment performed?: Yes Alcohol Intake: never Drug use: Never Substance use type: does not use Household members: spouse Housing: house What is your relationship status?: Panel score (0-1 are the most socially isolated patients): 1 Do you feel safe at home: Yes Do you feel safe in your relationship?: Yes Meds Allergies and Home Medications Allergies Allergy/AdvReac Type Severity Reaction Status Date / Time metformin AdvReac DIARRHEA Verified 08/20/24 06:00 Home Medications ?Medication ?Instructions ?Recorded ?Confirmed ?Type lisinopril 40 mg tablet 20 mg PO DAILY 09/07/14 08/20/24 History nitroglycerin 0.4 mg sublingual 0.4 mg sublingual PRN PRN Chest 09/07/14 08/20/24 History tablet Pain allopurinol 300 mg tablet 300 mg PO DAILY 12/30/16 08/20/24 History potassium citrate 10 mEq (1,080 20 meq PO BID 12/30/16 08/20/24 History mg) tablet,extended release Acetaminophen [Tylenol] 650 mg PO Q4H PRN PRN ##0 11/06/21 08/20/24 Rx docusate sodium 100 mg capsule 100 mg PO TID PRN PRN #0 caps 08/26/22 08/20/24 Rx (Colace) polyethylene glycol 3350 17 gram 17 g PO DAILY PRN PRN Constipation 08/26/22 08/20/24 Rx oral powder packet #0 ea nystatin 100,000 unit/gram topical 1 applic topical TID 11/28/22 08/20/24 History powder cholecalciferol (vitamin D3) 125 125 mcg PO DAILY 12/18/22 08/20/24 History mcg (5,000 unit) capsule furosemide 40 mg tablet 10 mg PO QAM 02/09/23 08/20/24 History tirzepatide 2.5 mg/0.5 mL 2.5 mg subcut QWEEK 10/02/23 08/20/24 History subcutaneous pen injector betamethasone dipropionate 0.05 % 0.05 applic topical DAILY 02/24/24 08/20/24 History topical cream ezetimibe 10 mg tablet 10 mg PO DAILY 02/24/24 08/20/24 History rivaroxaban 20 mg tablet (Xarelto) 20 mg PO DAILY 02/24/24 08/20/24 History melatonin 3 mg capsule 3 mg PO HS PRN #30 caps 02/27/24 08/20/24 Rx isosorbide dinitrate 30 mg tablet 30 mg PO BID 08/20/24 08/20/24 History metoprolol succinate 200 mg 200 mg PO DAILY 08/20/24 08/20/24 History tablet,extended release 24 hr nirmatrelvir 300 mg (150 mg dose pk PO 08/20/24 History x2)-ritonavir 100 mg tablet,dose pack (Paxlovid) Exam Narrative Exam Narrative: GEN: Sleepy but arousable, then nods off, oriented x 4, pleasant and cooperative, gives limited history. No acute distress at rest, but needs assist just to sit up. HEENT: Head atraumatic. Conjunctiva clear, no icterus. PEERL, EOMI. no rhinorrhea. MMM, OP benign. Neck is supple with no masses or lymphadenopathy, trachea midline LUNGS: CTAB, some increased WOB when trying to sit up in bed. CV: Irregularly irregular, normal rate, with no murmurs, gallops, or rubs. I could not appreciate elevated JVP ABD: active bowel sounds, soft, nontender and nondistended. No masses. EXT: no cyanosis, clubbing, warm. 2+ jerod firm edema in legs with hyperpigmentation MSK: No focal joint redness or swelling NEURO: CN 2-12 grossly intact. Normal movement of 4 extremities. Normal speech and coordination. No tremor SKIN: No rashes other than redness on lower extremities, has open wound right lateral ankle, large bulla on left calf PSYCH: normal mood and affect, normal thought process Results Imaging Chest x-ray: report reviewed (cardiomegaly, no focal infiltrate) and image reviewed EKG: report reviewed and image reviewed (Afib rate 75, nl axis, nl intervals, no ST-T abnormalities) Labs 08/20/24 06:00 08/20/24 06:00 Labs: Laboratory Results - last 24 hr 08/20/24 08/20/24 06:00 08:07 WBC 10.28 RBC 5.08 Hgb 16.2 Hct 49.5 MCV 97 H MCH 31.9 MCHC 32.7 RDW 14.1 Plt Count 290 MPV 9.3 Immature Gran % 0.5 Neutrophils % 86.4 Lymphocytes % 3.4 Monocytes % 9.0 Eosinophils % 0.1 Basophils % 0.6 Nucleated RBC % 0.0 Absolute Neutrophils 8.88 H Absolute Lymphocytes 0.35 L Absolute Monocytes 0.93 H Absolute Eosinophils 0.01 Absolute Basophils 0.06 Sodium 140 Potassium 4.0 Chloride 104 Carbon Dioxide 24.2 Anion Gap 11.8 H BUN 21 H Creatinine 0.9 Est GFR (CKD-EPI 2020) 88.51 Glucose 148 H Calcium 9.6 Magnesium 1.8 Total Bilirubin 0.83 AST 40 H ALT 44 Alkaline Phosphatase 148 H Creatine Kinase 166 Troponin I 41 NT-Pro-B Natriuret Pep 2429 H Total Protein 7.5 Albumin 3.4 Urine Color Yellow Urine Clarity Clear Urine pH 5.5 Ur Specific [place] 1.020 Urine Protein >=300 H Urine Ketones Negative Urine Blood Negative Urine Nitrite Negative Urine Bilirubin Negative Urine Urobilinogen 1.0 H Ur Leukocyte Esterase Negative Urine RBC 0-2 Urine WBC 0-2 Ur Epithelial Cells Rare Urine Crystals Negative Urine Bacteria Rare Urine Casts 0-2 Hyaline Urine Mucus Moderate Ur Culture Indicated? No Urine Glucose Negative COVID-19 Source Nasal/Nares Last Vital Signs Pulse 73 08/20/24 07:46 Resp 31 H 08/20/24 07:46 BP 134/69 08/20/24 07:46 Pulse Ox 94 08/20/24 07:46 Time Spent Time spent with Patient: >75 minutes Time was spent: preparing to see the patient(eg.review tests), obtaining and/or reviewing separately otained hiistory, ordering medications,tests, procedures, referring, communicating with other health child care supervisor, indepentently interpreting results, counseling the patient and care coordination
[2024-08-20 08:54] LABS: COVID-19 PCR POSITIVE (Negative)
[2024-08-20] MEDS: Lidocaine 2% Jelly 6 ML SYR (09:03)
[2024-08-20] MEDS: Furosemide 20 MG/2 ML VIAL IVP (09:03)
--- NOTE | 2024-08-20 09:05 | ED.PROG_ITS ---
Date of service: 08/20/24 Time of Service: 09:05 Medical Decision Making Case was signed out to me by my colleague Dr. Garcia. Please refer to HPI, physical exam, assessment and plan. At time of signout we are awaiting reassessment by physical therapy. Chest x-ray returned as being read as negative by virtual radiology, however I do see some mild increased pulmonary interstitial markings, to me suggestive of mild CHF. However he has no significant hypoxia, but O2 is 92% to 91% on room air. No severe pneumonia is noted on chest x-ray. Renal function stable, proBNP notably high suggesting additionally a component of mild CHF. 20 mg of Lasix has been given. Haque catheter has been placed, urinalysis negative for infection. COVID test is positive. Physical therapy has come and seen and evaluated the patient, and states that he is a 3 point assist at least, does not have the resources necessary for home at this time. He does have some bruising in his right knee, but he denies any pain there whatsoever. Symptoms appear inconsistent with fracture. No pain with movement at this time. No pain with palpation. Because of the weakness, CHF, and symptomatology, I do feel that he would be a good candidate for inpatient management at this time. Discussed the case with hospitalist Dr. Lopez. He agrees with the assessment and plan. I have extensively reviewed the treatment plan with the patient. I have addressed all patient concerns at this time. I have also discussed the plan with the admitting physician and they agree with the current assessment and plan and have agreed to assume responsibility for the patient. All parties demonstrate verbal understanding and agreement with our assessment and plan at this time. The documentation in this chart was dictated using PPS dictation software. Please excuse any dictation errors. Quality:SDOH Health Related Social Needs: Health related social needs housing instability, house d, with risk of homelessness(Z59.811) Discharge Plan Disposition Patient Disposition: Admit to [facility] Discharge Details Chief Complaint: GenMedical Clinical Impression: Generalized weakness, Venous stasis ulcer, Morbid obesity, Edema of lower extremity, Acute exacerbation of CHF (congestive heart failure), COVID-19 Primary Care Provider: Ginette Villavicencio ED Provider: Adrien Cazares Home Meds and New Rx's Prescriptions: No Action tirzepatide 2.5 mg/0.5 mL pen injector 2.5 mg subcut QWEEK isosorbide mononitrate 10 mg tablet 10 mg PO BID Rx Instructions: give doses 7 hrs apart metoprolol succinate 100 MG tablet extended release 24 hr 200 mg PO DAILY nitroglycerin 0.4 MG tablet, sublingual 0.4 mg Sublingual PRN PRN (Reason: Chest Pain) lisinopril 40 MG tablet 20 mg PO DAILY furosemide 40 mg tablet 10 mg PO QAM potassium citrate 10 MEQ tablet extended release 20 meq PO BID allopurinol 300 MG tablet 300 mg PO DAILY Acetaminophen [Tylenol] 650 mg PO Q4H PRN PRNQty: 0 0RF polyethylene glycol 3350 17 gram Powder In Packet 17 g PO DAILY PRN PRN (Reason: Constipation) Qty: 0 0RF Patient Comments: 11/28/22: not taking docusate sodium [Colace] 100 mg Capsule 100 mg PO TID PRN PRNQty: 0 0RF cholecalciferol (vitamin D3) 125 mcg (5,000 unit) capsule 125 mcg PO DAILY diphenhydramine HCl 25 mg Tablet 25 mg PO DIRECTED PRN nystatin 100,000 unit/gram powder 1 applic topical TID Paxlovid 300 mg (150 mg x 2)-100 mg tablets,dose pack PO ezetimibe 10 mg tablet 10 mg PO DAILY Xarelto 20 mg tablet 20 mg PO DAILY betamethasone dipropionate 0.05 % cream 0.05 applic TOPICAL DAILY melatonin 3 mg capsule 3 mg PO HS PRNQty: 30 0RF Rx Instructions: PRN sleep
--- OUTSIDE RECORDS SUMMARY | 2024-08-20 10:50 | XMS_ITS | Encounter Summary ---
Author Organization [facility] [place] [address] Care Team Providers Care Shock Absorber Installer Name Role Phone Nick Nettles MD Primary Care Provider Encounter Details Date Type Department Care Team (Late st Contact Info) Description 08/26/2022 Ancillary Procedure Radiology Library at [facility] [place] [address] Nick Nettles MD [address] [place], [place] [address] Social History Tobacco Use Types Packs/Day Years [...] MR Spine (08/26/2022 12:00 AM EST) Narrative [facility] - 09/16/2022 8:20 PM EST This exam is auto-finalizing. It's purpose is for storage only. Nick Nettles MD IM FILM LIBRARY ORD ERABLES [place], [place] documented in this encounter Visit Diagnoses Not on filedocumented in this encounter Care Teams Shock Absorber Installer Relationship Specialty Start Date End Date Nick Nettles MD [address] [place] [address] PCP - General Internal Medicine 10/05/19 documented as of this encounter
--- OUTSIDE RECORDS SUMMARY | 2024-08-20 10:50 | XMS_ITS | Encounter Summary ---
Author Organization [facility] Address [facility] [place] [address] Care Team Providers Care Senior Principal Architect Name Role Phone Nick Nettles MD Primary Care Provider [phone] Encounter Details Date Type Department Care Team (Late st Contact Info) Description 10/24/2021 Orders [place] [address] Barb Groves PA [facility] [place] [address] Non-healing wound of lower extremity, unspecified laterality, [...] encounter documented in this encounter Care Teams Senior Principal Architect Relationship Specialty Start Date End Date Nick Nettles MD [address] [place] [address] PCP - General Internal Medicine 10/05/19 documented as of this encounter
--- OUTSIDE RECORDS SUMMARY | 2024-08-20 10:50 | XMS_ITS | Encounter Summary ---
Author Organization [facility] [address] Care Team Providers Care Clinical Social Work Therapist Name Role Phone Nick Nettles MD Primary Care Provider [phone] Encounter Details Date Type Department Care Team (Late st Contact Info) Description 08/07/2022 Ancillary Procedure Radiology Library at [facility] [address] Nick Nettles MD [address] [place] [address], [place] [address] Social History Tobacco Use Types Packs/Day Years [...] DX Spine (08/07/2022 12:00 AM EST) Narrative [facility] - 09/16/2022 8:22 PM EST This exam is auto-finalizing. It's purpose is for storage only. Nick Nettles MD IM FILM LIBRARY ORD ERABLES [place], [place] documented in this encounter Visit Diagnoses Not on filedocumented in this encounter Care Teams Clinical Social Work Therapist Relationship Specialty Start Date End Date Nick Nettles MD [address] [place] [address] PCP - General Internal Medicine 10/05/19 documented as of this encounter
--- OUTSIDE RECORDS SUMMARY | 2024-08-20 10:50 | XMS_ITS | Encounter Summary ---
[place] [address] Care Team Providers Care Chauffeur Motorbus Name Role Phone Nick Nettles MD Primary Care Provider [phone] Encounter Details Date Type Department Care Team (Late st Contact Info) Description 10/18/2021 Telephone [place] [id number] Corrina Liu Social History Tobacco Use Types [...] AM EST OUR REFERRAL FORM FAXED TO [phone]. documented in this encounter Plan of Treatment Not on file documented as of this encounter Visit Diagnoses Not on filedocumented in this encounter Care Teams Chauffeur Motorbus Relationship Specialty Start Date End Date Nick Nettles MD [address] [place] [address] PCP - General Internal Medicine 10/05/19 documented as of this encounter
--- OUTSIDE RECORDS SUMMARY | 2024-08-20 10:50 | XMS_ITS | Clinical Summary ---
Author Organization [facility] Address [address] [place] [address] Care Team Providers Care Tare Weigher Name Role Phone Unknown, Provider Primary Care [...] 2022 COVID-19 Vaccine (2023- season) 2024 Insurance [facility] MEDICARE Care Teams Tare Weigher Relationship Specialty Start Date End Date Unknown, Provider, PCP - General 08/08/22
--- OUTSIDE RECORDS SUMMARY | 2024-08-20 10:50 | XMS_ITS | Encounter Summary ---
[place] [address] Care Team Providers Care Galvanizer Zinc Name Role Phone Nick Nettles MD Primary Care Provider [phone] Reason for Referral * Consultation (Routine) - Closed Specialty Diagnoses / Procedures Referred By Carla soto Referred To Contact Hematology and Oncology Diagnoses Elevated hematocrit Madison Strickland MD [address] [place] [address] [facility] Hem Onc [address] [place] [address] Referral ID Status Reason Start Date Expiration Date V isits Requested Visits Authorized [id number] Closed Consult, Test & Treat 12/18/2022 12/18/2023 1 1 Encounter Details Date Type Department Care Team (Latest Contact Info) Description 12/18/2022 Transcribe Orders eDH Incoming Referrals [phone] Madison Strickland MD [address] [place] [phone] Elevated hematocrit Social History Tobacco Use Types [...] hemoglobinopathies documented in this encounter Care Teams Galvanizer Zinc Relationship Specialty Start Date End Date Nick Nettles MD [address] [place] [address] PCP - General Internal Medicine 10/05/19 documented as of this encounter
--- OUTSIDE RECORDS SUMMARY | 2024-08-20 10:50 | XMS_ITS | Encounter Summary ---
Author Organization [facility] [place] [address] Care Team Providers Care Pockets And Pieces Necktie Operator Name Role Phone Nick Nettles MD Primary Care Provider [phone] Encounter Details Date Type Department Care Team (Late st Contact Info) Description 11/14/2020 Interpretation Only [address] [id number] Sharda Gurrola, TAYLER [address] [place] [id number] Social History Tobacco Use Types Packs/Day [...] ? Electronically signed by: Adolph Archer MD, [facility] ([phone]), at 11/14/2020 12:27 PM Narrative 11/14/2020 12:32 [...] on filedocumented in this encounter Care Teams Pockets And Pieces Necktie Operator Relationship Specialty Start Date End Date Nick Nettles MD [address] [place] [id number] PCP - General Internal Medicine 10/05/19 documented as of this encounter
--- OUTSIDE RECORDS SUMMARY | 2024-08-20 10:50 | XMS_ITS | Encounter Summary ---
[place] [address] Care Team Providers Care Captain Airline Pilot Name Role Phone Nick Nettles MD Primary [...] obesity Nick Nettles MD [address] [place] [address] [facility] [address] [place] [address] Referral ID Status Reason Start Date Expiration Date V isits Requested Visits Authorized [id number] Closed Consult, Test & Treat 10/20/2021 10/20/2022 2 2 Encounter Details Date Type Department Care Team (Latest Contact Info) Description 10/20/2021 Transcribe [place] [address] Nick Nettles MD [address] [place] [address] Chronic venous hypertension w ulcer [...] obesity documented in this encounter Care Teams Captain Airline Pilot Relationship Specialty Start Date End Date Nick Nettles MD [address] [place] [id number] PCP - General Internal Medicine 10/05/19 documented as of this encounter
--- OUTSIDE RECORDS SUMMARY | 2024-08-20 10:50 | XMS_ITS | Clinical Summary ---
Author Organization [facility] Address [facility] [place] [address] Care Team Providers Care Operations Supervisor Chemical Cleaning Name Role Phone Nick Nettles MD Primary Care Provider [phone] Allergies Active Allergy Reactions Criticality Noted Date [...] t be different from the original. 10/31/20 [facility]. PHONE: [phone] FAX: [phone] [facility] Stasis Dermatitis bilateral lower [...] 08/31/2015, 09/10/2014 Medical Devices Implanted Type Area Mental Health Nurse Practitioner Device Identifier Shelf Expiration Date Model / Serial / Lot Graft Bone Filler 10ml Calcium Sulfate Powder Injectable ([id number]) - [id number] Implanted:Qty : 1 on 11/01/2020 by Geovani Strange MD at [facility] IMPLANTS Left: Hip [employer] - BIOCOMPOSI [id number] 08/07/2023 620-010 / / [id number] Description:Mixed with 1.2g Tobramycin and 1g Vancomycin. Shell Acet Hip 62mm Por Ctd Multi Hole Ti [place] Gription ([id number]) (Autoreq) - [id number] Implanted:Qty : 1 on 11/01/2020 by Geovani Strange MD at [facility] IMPLANTS Left: Hip RAYSA [employer] Deezer - RAYSA BHARAT [id number] 07/08/2029 2 / / [id number] Screw Hip Acet 6.5x20mm Ft Canc Hex Drv Ti [place] ([id number]) (Autoreq) - [id number] Implanted:Qty : 1 on 11/01/2020 by Geovani Strange MD at [facility] IMPLANTS Left: Hip RAYSA & RAYSA Affymax - RAYSA BHARAT 06/07/2030 0 / / [id number] Liner Acet Hip [id number] 0d Stnd Ceramic Ceramax ([id number]) (Autoreq) - [id number] Implanted:Qty : 1 on 11/01/2020 by Geovani Strange MD at [facility] IMPLANTS Left: Hip RAYSA [employer] RAYSA HE[employer] - RAYSA BHARAT [id number] 04/07/2023 2 / / [id number] Screw Hip Acet 6.5x25mm Ft Canc Hex Drv Ti [place] ([id number]) (Autoreq) - [id number] Implanted:Qty : 1 on 11/01/2020 by Geovani Strange MD at [facility] IMPLANTS Left: Hip RAYSA [employer]AYSA [employer] - RAYSA BHARAT [id number] 05/08/2030 0 / / [id number] Depuy, [place], Cancellous Bone Screw, [id number] Implanted:Qty : 1 on 11/01/2020 by Geovani Strange MD at [facility] Left: Hip 01/05/2029 0 / / [id number] Almanza [employer] Nephew, Oxinium, 36mm O.D., +4, 14/16 Taper Femoral Head Implanted:Qty : 1 on 11/01/2020 by Geovani Strange MD at [facility] Left: Hip 04/23/2025 [id number] / / [id number] Procedures Procedure Name Priority Date/Time Associated Diagnosis Comments BASIC METABOLIC PANEL Routine 11/03/2020 3:17 AM EST HC HEMOGLOBIN A1C Routine 11/01/2020 3:5 2 AM EST HEPATITIS C ANTIBODY Routine 08/31/2015 3:38 PM EST from Last 3 Months or Most Recently Relevant to Health Maintenance Results * (ABNORMAL) Basic Metabolic Panel (non-fasting) (11/03/2020 3:17 AM EST) Glucose 147 65 - 199 mg/dL [facility] Comment:Diabetes: >=200 mg/d L plus symptoms Blood Urea Nitrogen 23(H) 10 - 20 mg/dL [facility] Creatinine 0.78(L) 0.80 - 1.50 mg/dL [facility] Sodium 141 135 - 145 mmol/L [facility] Potassium 4.5 3.5 - 5.0 mmol/L [facility] Comment: Please note: ??Patients with WBC >100,000 may have falsely elevated Potassium levels. ??For accurate Potassium quantification in these patients send serum separator tube (gold top) for subsequent determinations. ??Contact the Clinical Chemistry Laboratory if there are any questions. Chloride 107 98 - 107 mmol/L [facility] Carbon Dioxide 23 22 - 31 mmol/L [facility] Anion Gap 11 5 - 15 mmol/L [facility] Calcium 9.3 8.5 - 10.5 mg/dL [facility] Est Glomerular Filtration Rate 90 >=60 mL/min/1. 73 m?? [facility] Comment: This patient? s estimated [...] In Lab Jeffrey Cuevas MD CHEMISTRY ORDERABLES [facility] [place] [address] * (ABNORMAL) Hemoglobin A1c (11/01/2020 3:52 AM EST) Hemoglobin A1c 7.6(H) 4.3 - 5.6 % [facility] Comment: Reference Range: 4.3 - [...] Mellitus, Diabetes Care 2013; 36: Suppl. 1, B17-46 Estimated Average Glucose See note mg/dL [facility] Comment: Estimated Average Glucose not [...] into estimated average glucose values. ??Diabetes Care 2008:31(8):3792-8852. Blood specimen (specimen) 11/01/2020 3:52 AM EST 11/01/2020 4:13 AM EST Narrative Resulting Agency Comment Spec In Lab Geovani Strange MD CHEMISTRY ORDERABLE S [facility] [place] [address] * Hepatitis C Antibody (08/31/2015 3:38 PM EST) Hepatitis C Antibody Negative Negative [facility] Blood specimen (specimen) 08/31/2015 3:38 PM EST 08/31/2015 3:45 PM EST Narrative Resulting Agency Comment Spec In Lab Delroy Chu MD CHEMISTRY ORDERABLES [facility] from Last 3 Months or Most Recently Relevant to Health Maintenance Advance Directives Documents on File Type Date Recorded Patient Technical Account Executive Expl anation Advance Directives and Livin g [...] is based on Patients wishes. Care Teams Operations Supervisor Chemical Cleaning Relationship Specialty Start Date End Date Nick Nettles MD [address] [place] [address] PCP - General Internal Medicine 10/05/19
--- OUTSIDE RECORDS SUMMARY | 2024-08-20 10:50 | XMS_ITS | Encounter Summary ---
[place] [address] Care Team Providers Care Breakdown Worker Name Role Phone Nick Nettles MD [...] opinion* Nick Nettles MD [address] [place] [address] [facility] [place] [address] Referral ID Status Reason Start Date Expiration Date V isits Requested Visits Authorized [id number] Closed Consult, Test & Treat PCP Updated and/or Approved 09/19/2022 09/19/2023 1 1 Encounter Details Date Type Department Care Team (Latest Contact Info) Description 09/19/2022 Transcribe Orders eDH Incoming Referrals [phone] Nick Nettles MD [address] [place] [address] Spinal stenosis of lumbar region, unspecified whether [...] limbs documented in this encounter Care Teams Breakdown Worker Relationship Specialty Start Date End Date Nick Nettles MD [address] [place] [address] PCP - General Internal Medicine 10/05/19 documented as of this encounter
--- OUTSIDE RECORDS SUMMARY | 2024-08-20 10:50 | XMS_ITS | Encounter Summary ---
Author Organization [facility] [place] [address] Care Team Providers Care Metal Expediter Name Role Phone Nick Nettles MD Primary Care Provider [phone] Encounter Details Date Type Department Care Team (Late st Contact Info) Description 10/30/2021 8:40 PM EST Ancillary Procedure Radiology Library at [facility] [place] [address] Nick Nettles MD [address] [place], [place] [id number] Social History Tobacco Use Types Packs/Day Years [...] MR Spine (10/30/2021 8:37 PM EST) Narrative [facility] - 10/30/2021 8:37 PM EST This exam is auto-finalizing. It's purpose is for storage only. Nick Nettles MD IM FILM LIBRARY ORD ERABLES [place], [place] documented in this encounter Visit Diagnoses Not on filedocumented in this encounter Care Teams Metal Expediter Relationship Specialty Start Date End Date Nick Nettles MD [address] [place] [address] PCP - General Internal Medicine 10/05/19 documented as of this encounter
--- OUTSIDE RECORDS SUMMARY | 2024-08-20 10:50 | XMS_ITS | Encounter Summary ---
Author Organization [facility] [place] [address] Care Team Providers Care Business Transformation Consultant Name Role Phone Nick Nettles MD Primary Care Provider Reason for Referral * Consultation (SHEILA) - Closed Specialty Diagnoses / Procedures Referred By Contac t Referred To Contact Wound Care Diagnoses Stasis edema with ulcer, unspecified laterality Nick Nettles MD [address] [place] [address] [facility] [place] [address] Referral ID Status Reason Start Date Expiration Date V isits Requested Visits Authorized [id number] Closed Consult, Test & Treat PCP Updated and/or Approved 08/08/2022 08/08/2023 12 12 Encounter Details Date Type Department Care Team (Latest Contact Info) Description 08/08/2022 Transcribe Orders eD Incoming Referrals [phone] Nick Nettles MD [address] [place] [address] Stasis edema with ulcer, unspecified [...] laterality documented in this encounter Care Teams Business Transformation Consultant Relationship Specialty Start Date End Date Nick Nettles MD [address] [place] [address] PCP - General Internal Medicine 10/05/19 documented as of this encounter
--- OUTSIDE RECORDS SUMMARY | 2024-08-20 10:50 | XMS_ITS | Encounter Summary ---
Author Organization [facility] [place] [address] Care Team Providers Care Armor Senior Sergeant Name Role Phone Nick Nettles MD Primary Care Provider Encounter Details Date Type Department Care Team (Late st Contact Info) Description 10/30/2021 Ancillary Procedure Radiology Library at [facility] [place] [address] Nick Nettles MD [address] [place], [place] [address] Social History Tobacco Use Types Packs/Day Years [...] CT Spine (10/30/2021 12:00 AM EST) Narrative [facility] - 09/16/2022 8:26 PM EST This exam is auto-finalizing. It's purpose is for storage only. Nick Nettles MD IM FILM LIBRARY ORD ERABLES [place], [place] documented in this encounter Visit Diagnoses Not on filedocumented in this encounter Care Teams Armor Senior Sergeant Relationship Specialty Start Date End Date Nick Nettles MD [address] [place] [address] PCP - General Internal Medicine 10/05/19 documented as of this encounter
--- OUTSIDE RECORDS SUMMARY | 2024-08-20 10:50 | XMS_ITS | Encounter Summary ---
[place] [address] Care Team Providers Care Payroll Benefits Administrator Name Role Phone Nick Nettles MD Primary Care Provider Reason for Referral * Consultation (Routine) - Closed Specialty Diagnoses / Procedures Referred By Contac t Referred To Contact Diagnoses HNP (herniated nucleus pulposus), lumbar Ashvin Dueñas MD [facility] [place] [address] Referral ID Status Reason Start Date Expiration Date V isits Requested Visits Authorized [id number] Closed Consult, Test & Treat 10/21/2022 04/19/2023 [...] opinion* Nick Nettles MD [address] [place] [address] [facility] [place] [address] Referral ID Status Reason Start Date Expiration Date V isits Requested Visits Authorized [id number] Closed Consult, Test & Treat PCP Updated and/or Approved 09/19/2022 09/19/2023 1 1 Encounter Details Date Type Department Care Team (Late st Contact Info) Description 10/21/2022 10:00 AM EST Office Visit [facility] [place] [address] Ashvin Dueñas MD [facility] [place] [address] HNP (herniated nucleus pulposus), lumbar [...] - 10/21/2022 10:00 AM EST Follow-up with [facility] pain clinic to discuss injection options. documented in this encounter Progress Notes * Ashvin Dueñas MD - 10/21/2022 10:00 AM EST Chief complaint: Low back pain greater than left lateral thigh pain History of present illness: Mr. rCouch is a 77-year-old male whom I am [...] made a referral to the pain [facility] to discuss that. If he has problems [...] myelopathy documented in this encounter Care Teams Payroll Benefits Administrator Relationship Specialty Start Date End Date Nick Nettles MD [address] [place] [address] PCP - General Internal Medicine 10/05/19 documented as of this encounter
--- OUTSIDE RECORDS SUMMARY | 2024-08-20 10:50 | XMS_ITS | Encounter Summary ---
[place] [address] Care Team Providers Care Cost Control Supervisor Name Role Phone Nick Nettles MD Primary Care Provider [phone] Reason for Visit * Surgical (Urgent) - Closed Specialty Diagnoses / Procedures Referred By Carla soto Referred To Contact Orthopaedics Diagnoses Pain in left hip Left Hip fx - Sp L NAIDA DOS 20+ years ago -no known injury Nick Nettles MD [address] [place] [address] [facility] [address] [place] [phone] Referral ID Status Reason Start Date Expiration Date Visits Re quested Visits Authorized [id number] Closed 10/30/2020 10/30/2021 6 6 Encounter Details Date Type Department Care Team (Late st Contact Info) Description 11/16/2020 10:30 AM EST Office Visit [place] [address] Jeffrey Cuevas MD [address] [place] [address] [place] [address] Type 2 diabetes mellitus with other circulatory [...] subsidence, loosening, or periprosthetic complication. Questionnaire Responses: [facility] Surgical Postop Visit 06/15/2018 PROMIS-10 General Health [...] means documented in this encounter Care Teams Cost Control Supervisor Relationship Specialty Start Date End Date Nick Nettles MD [address] [place] [address] PCP - General Internal Medicine 10/05/19 documented as of this encounter
--- OUTSIDE RECORDS SUMMARY | 2024-08-20 10:50 | XMS_ITS | Referral Summary ---
Author Organization [facility] Address [address] [place] [address] Care Team Providers Care Medical Office Asst Name Role Phone Unknown, Provider Primary Care Provider Unava ilable Social History Tobacco Use Types Packs/Day Years Used Date Smoking Tobacco: Never Assessed Sex and Gender Information Value Date Recorded Sex Assigned at Not on file Legal Sex Male 1:44 EST Gender Identity Not on file Sexual Orientation Not on file Plan of Treatment Not on file Insurance [facility] Care Teams Medical Office Asst Relationship Specialty Start Date End Date Unknown, Provider, PCP - General 08/08/22
--- OUTSIDE RECORDS SUMMARY | 2024-08-20 10:50 | XMS_ITS | Encounter Summary ---
[place] [address] Care Team Providers Care Airport Operations Manager Name Role Phone Nick Nettles MD Primary Care Provider Reason for Referral * Diagnostic Test (Routine) - Closed Specialty Diagnoses / Procedures Referred By Carla soto Referred To Contact Cardiology Diagnoses Congestive heart failure, unspecified HF chronicity, unspecified heart failure type Procedures Mobile Nick Huffman MD [address] [place] [address] [facility] [place] [address] Referral ID Status Reason Start Date Expiration Date V isits Requested Visits Authorized [id number] Closed Specialty Service Requested 04/18/2023 04/17/2024 1 1 Reason for Visit * Diagnostic Test (Routine) - Closed Specialty Diagnoses / Procedures Referred By Contalberto soto Referred To Contact Cardiology Diagnoses Congestive heart failure, unspecified HF chronicity, unspecified heart failure type Procedures Mobile Nick Huffman MD [address] [place] [address] [facility] [place] [address] Referral ID Status Reason Start Date Expiration Date V isits Requested Visits Authorized [id number] Closed Specialty Service Requested 04/18/2023 04/17/2024 1 1 Encounter Details Date Type Department Care Team (Latest Contact Info) Description 04/18/2023 12:54 PM EDT - 04/18/2023 11:59 PM EDT Hospital Encounter [place] [address] Nick Nettles MD [address] [place] [address] Congestive heart failure, unspecified HF chronicity, unspecified [...] Date: 04/18/2023 10:35 AM ? [facility] 1945 ? Height: 178 cm ? Account: [id number] Age: 77 yrs ? Weight: 137 kg Gender: Male ?BSA: 2.5 m2 Ordering Physician: NICK NETTLES Referring Physician: NICK NETTLES Reason For Study: CHF Exam Location: [facility]. Interpretation Summary Technically limited study. Left ventricle [...] and both studies were technically limited). Procedure Complete-[id number]. Suboptimal quality. Left Ventricle Left ventricle is [...] Aneurysmal ?15-16 ?? diffuse Procedure Note Yoav Fluton MD - 04/18/2023 Echocardiogram Report Name: LAZARO CROUCH JR. Study Date:04/18/2023 10:35 AM Patient Location: : 1945 Height: 178 cm Account: [id number] Age: 77 yrs Weight: 137 kg Gender: Male BSA: 2.5 m2 Ordering Physician: NICK NETTLES Referring Physician: NICK NETTLES Reason For Study: CHF Exam Location: [facility]. Interpretation Summary Technically limited study. Left ventricle [...] contrast and both studies were technicallylimited). Procedure Complete-[id number]. Suboptimal quality. Left Ventricle Left ventricle is [...] type documented in this encounter Care Teams Airport Operations Manager Relationship Specialty Start Date End Date Nick Nettles MD [address] [place] [address] PCP - General Internal Medicine 10/05/19 documented as of this encounter
--- OUTSIDE RECORDS SUMMARY | 2024-08-20 10:50 | XMS_ITS | Encounter Summary ---
Author Organization [facility] [place] [address] Care Team Providers Care Publishing Manager Name Role Phone Nick Nettles MD Primary Care Provider [phone] Encounter Details Date Type Department Care Team (Late st Contact Info) Description 11/04/2021 Ancillary Procedure Radiology Library [place] [address] Nick Nettles MD [address] [place], [place] [address] Social History Tobacco Use Types Packs/Day Years [...] DX Knee (11/04/2021 12:00 AM EST) Narrative [facility] - 09/16/2022 8:23 PM EST This exam is auto-finalizing. It's purpose is for storage only. Nick Nettles MD IM FILM LIBRARY ORD ERABLES [place], [place] documented in this encounter Visit Diagnoses Not on filedocumented in this encounter Care Teams Publishing Manager Relationship Specialty Start Date End Date Nick Nettles MD [address] [place] [address] PCP - General Internal Medicine 10/05/19 documented as of this encounter
--- OUTSIDE RECORDS SUMMARY | 2024-08-20 10:50 | XMS_ITS | Encounter Summary ---
Author Organization [facility] Address [address] [place] [address] Care Team Providers Care Solder Cream Maker Name Role Phone Unknown, Provider Primary Care Provider Riley pollock Encounter Details Date Type Department Care Team (Late st Contact Info) Description 08/09/2022 Lab Requisition [facility] Pathology & Laboratory Medicine - [facility] [address] [place] [address] Outr Resulting Lab, Provider Social History Tobacco [...] Mcclain MD 08/12/2022 1512 08/12/2022 15:[address] [facility] Blood VENOUS BLOOD / Unknown 08/08/2022 12:30 EST 08/09/2022 18:35 EST us Provider Outr Resulting Lab CHEMISTRY & BLOOD GA S ORDERABLES Final Result [facility] [address] [place] [address] * (ABNORMAL) SPEP, INCLUDES QUANTITATION OF MONOCLONAL SPIKE PERFORMABLE (08/08/2022 12:30 EST) Albumin % 54.9(L) 55.8 - 66.1 % 08/12/2022 14:35 [facility] Albumin g/dL 3.9 3.6 - 5.2 g/dL 08/12/2022 14:35 [facility] Alpha-1 % 4.3 2.9 - 4.9 % 08/12/2022 14:35 [facility] Alpha-1 g/dL 0.30 0.15 - 0.40 g/dL 08/12/2022 14:35 [facility] Alpha-2 % 12.1(H) 7.1 - 11.8 % 08/12/2022 14:35 [facility] Alpha-2 g/dL 0.90 0.50 - 1.00 g/dL 08/12/2022 14:35 [facility] Beta % 12.6 8.4 - 13.1 % 08/12/2022 14:35 [facility] Beta g/dL 0.90 0.60 - 1.20 g/dL 08/12/2022 14:35 [facility] Gamma % 16.1 11.1 - 18.8 % 08/12/2022 14:35 [facility] Gamma g/dL 1.10 0.60 - 1.60 g/dL 08/12/2022 14:35 [facility] SPEP Comment Suspicious pattern seen on protein electrophoresis, immunotyping added by reflex. 08/12/2022 14:35 [facility] Comment:See scanned/suppleme ntary report. Total Protein 7.1 6.3 - 8.2 g/dL 08/12/2022 14:35 [facility] Blood VENOUS BLOOD / Unknown 08/08/2022 12:30 EST 08/09/2022 18:35 EST us Provider Outr Resulting Lab CHEMISTRY & BLOOD GA S ORDERABLES Final Result Performing Organization Address [facility] de Phone Number [facility] [address] [place] [address] * PROTEIN, TOTAL (08/08/2022 12:30 EST) Blood VENOUS BLOOD / Unknown 08/08/2022 12:30 EST 08/09/2022 18:35 EST us Provider Outr Resulting Lab CHEMISTRY & BLOOD GA S ORDERABLES Final Result Performing Organization Address [facility] Co de Phone Number [facility] [address] [place] [address] documented in this encounter Visit Diagnoses Not on filedocumented in this encounter Care Teams Solder Cream Maker Relationship Specialty Start Date End Date Unknown, Provider, PCP - General 08/08/22 documented as of this encounter
--- OUTSIDE RECORDS SUMMARY | 2024-08-20 10:50 | XMS_ITS | Encounter Summary ---
[place] [address] Care Team Providers Care Uniform Patrol Police Officer Name Role Phone Nick Nettles MD Primary Care Provider [phone] Encounter Details Date Type Department Care Team [...] on filedocumented in this encounter Care Teams Uniform Patrol Police Officer Relationship Specialty Start Date End Date Nick Nettles MD [address] [place] [address] PCP - General Internal Medicine 10/05/19 documented as of this encounter
--- OUTSIDE RECORDS SUMMARY | 2024-08-20 10:50 | XMS_ITS | Encounter Summary ---
[place] [address] Care Team Providers Care Transmission Assembler Name Role Phone Nick Nettles MD Primary Care Provider [phone] Encounter Details Date Type Department Care Team (Late st Contact Info) Description 08/14/2022 [place] [address] Ban Michaud RN Social History Tobacco Use [...] encounter Miscellaneous Notes * Telephone Encounter - Bna Michaud RN - 08/14/2022 9:34 AM ESTSummary: Patient call Patient called looking for a second opinion on his wound care. Patient is currently seeing wound care in [facility]. There is an active referral in his chart to wound care at [facility]. I let the patient know that we would need to see him and assess his wound before we could make any recommendations to him. Patient is not currently an active wound care patient at [facility]. He would need a visit at the [facility] wound center to [...] on filedocumented in this encounter Care Teams Transmission Assembler Relationship Specialty Start Date End Date Nick Nettles MD [address] [place] [address] PCP - General Internal Medicine 10/05/19 documented as of this encounter
--- OUTSIDE RECORDS SUMMARY | 2024-08-20 10:50 | XMS_ITS | Encounter Summary ---
[place] [address] Care Team Providers Care Railroad Car Repair Supervisor Name Role Phone Nick Nettles MD Primary Care Provider [phone] Encounter Details Date Type Department Care Team (Late st Contact Info) Description 09/17/2022 Telephone [place] [address] Nilda Lieberman Social History Tobacco Use Types [...] 10:42 AM EST Returning voicemail left on [facility] line. Explained that we have not received a referral yet. Once received we will review. documented in this encounter Plan of Treatment Not on file documented as of this encounter Visit Diagnoses Not on filedocumented in this encounter Care Teams Railroad Car Repair Supervisor Relationship Specialty Start Date End Date Nick Nettles MD [address] [place] [address] PCP - General Internal Medicine 10/05/19 documented as of this encounter
--- OUTSIDE RECORDS SUMMARY | 2024-08-20 10:51 | XMS_ITS | Encounter Summary ---
[facility] Organization [facility] [place] [address] Care Team Providers Care Technical Operations Specialist Name Role Phone Nick Nettles MD Primary Care Provider [phone] Reason for Visit * Auth/Cert Specialty Diagnoses / Procedures Referred By Carla soto Referred To Contact Diagnoses Failed total hip arthroplasty, initial encounter Class 3 severe obesity due to excess calories with serious comorbidity and body mass index (BMI) of 60.0 to 69.9 in adult Referral ID Status Reason Start Date Expiration Date Visits Re quested Visits Authorized [id number] 1 1 Encounter Details Date Type Department Care Team (Late st Contact Info) Description 11/01/2020 1:30 PM EST Anesthesia [place] [address] Ashvin Soliman MD [facility] [place] [address] Tres Ching MD [facility] [place] [address] Anesthesia Record Procedure Summary Procedure Name Responsible Anesthesiologist Anesthesia Start Time Anesthesia Stop Time @TOTAL HIP REVISION ARTHROPLASTY, COMPLETE (WRVU 30.28) (Left: Hip) Ashvin Soliman MD 11/01/20 1330 11/01/20 1705 Events [...] hip; Prevena 11/01/20 0000 by Amanda Piedra, hose builder 09/11/14; leg; ulceration, venous; existed prior to [...] 1402; median vein (underside of arm), right; [id number] catheter system; 18 gauge; 11/03/20; 1329 11/01/20 [...] Procedure Summary Date: 11/01/20 Room / Location: [address] MAIN OR Anesthesia Start: 1330 Anesthesia Stop: 1705 Procedures: TOTAL HIP REVISION ARTHROPLASTY, COMPLETE (WRVU 30.28) (Left Hip) MODIFIER PINNACLE ACETABULUM DEPUY (N/A Hip) Diagnosis: (Left Femoral Head component fracture) Surgeons: Geovani Strange MD Responsible Provider: Ashvin Soliman MD Anesthesia Type: general ASA Status: 3 All Anesthesia Providers: Anesthesiologist: Ashvin Soliman MD; Tres Ching MD [employer] UPHOL[employer] TRIM INSTALLER: Reed Moreno CRNA Vitals Value Taken Time BP 112/68 11/01/20 1730 Temp 36.4 ??C (97.5 ??F) 11/01/20 1700 Pulse 85 11/01/20 1739 Resp 19 11/01/20 1739 SpO2 100 % 11/01/20 1733 Pain Level 4 11/01/20 1700 Vitals shown include unvalidated device data. Patient Location: PACU/[facility] Level of Consciousness: Awake and Alert [...] cholecystitis vs cholangitis S/p sphincerotomy - s/p sadaia 09/01/15 ??? Atrial fibrillation On warfarin ??? TOM on CPAP ??? Phimosis ??? Nephrolithiasis Past Medical History: Diagnosis Date ??? ASCVD (arteriosclerotic cardiovascular disease) 1993 first MA 1992, stent to LAD in 2006 ??? [...] ERCP performed by Nick Broussard MD at [facility] ENDOSCOPY ??? PRO ERCP,DIAGNOSTIC N/A 08/30/2015 ERCP performed by Nick Broussard MD at [facility] MAIN OR ??? PRO ERCP,DIAGNOSTIC N/A 08/30/2015 ERCP performed by Nick Broussard MD at [facility] ENDOSCOPY ??? PRO LAP, CHOLECYSTECTOMY N/A 09/01/2015 LAPAROSCOPIC CHOLECYSTECTOMY performed by Esha Moon MD at [facility] MAIN OR ??? TOTAL HIP ARTHROPLASTY Bilateral [...] ??? ASCVD (arteriosclerotic cardiovascular disease) 1993 first [place] 1992, stent to LAD in 2006 ??? [...] mg documented in this encounter Care Teams Technical Operations Specialist Relationship Specialty Start Date End Date Nick Nettles MD [address] [place] [address] PCP - General Internal Medicine 10/05/19 documented as of this encounter
--- OUTSIDE RECORDS SUMMARY | 2024-08-20 10:51 | XMS_ITS | Encounter Summary ---
Author Organization [facility] Address [facility] [place] [address] Care Team Providers Care Waste Specialist Name Role Phone Nick Nettles MD Primary Care Provider [phone] Reason for Visit * Reason Comments Right [...] Expiration Date Visits Re quested Visits Authorized [id number] 1 1 Encounter Details Date Type Department Care Team (Latest Contact Info) Description 10/31/2020 4:11 PM EST - 11/03/2020 3:20 PM [facility] Hospital Encounter [address] [place] [address] Geovani Strange MD [facility] [address] Class 3 severe obesity due to excess [...] Jaime Crouch Patient Age: 75 y.o. Language: Ivorian Race: White Ethnicity: Not nor Admit date: [...] Center 11/08/2020 8:30 AM Yaneth Sage RVT [facility] VAS LAB JOHNNA BROOKS 11/08/2020 9:00 AM Delroy More MD [facility] V SURG [facility] 11/16/2020 9:30 AM [facility] DX ROOM 3 Xray [facility] Rad 11/16/2020 10:30 AM Jeffrey Cuevas MD [facility] ORTH 3C [facility] Inpatient Provider Contact Information: Geovani Strange MD Orthopedics: [phone] After hours and weekends, call [facility] [employer], , and have the Orthopedic resident paged. [...] Fellow * Delroy Brooks PA - Physician Dish Room Worker Procedure(s): LEFT TOTAL HIP REVISION ARTHROPLASTY, COMPLETE [...] MD Internal Medicine, PGY3 FORTUNATO Pager # [phone] Attestation signed by Amber Castro MD at [...] primarily been managed by wound care at [facility]. The patient has never seen a vascular [...] patient should continue seeing wound care at [facility] once discharged, as he is. Elvira Daigle [...] below. Electronically signed by: Slim Wright MD, [facility] ([phone]), at 11/01/2020 6:49 PM XR Pelvis (Generic) [...] below. Electronically signed by: Seymour Galaviz MD, [facility] ([phone]), at 10/31/2020 6:56 PM SCAN DOC: TELEMETRY [...] below. Electronically signed by: Seymour Galaviz MD, [facility] ([phone]), at 10/31/2020 6:56 PM XRay Chest One [...] below. Electronically signed by: Seymour Galaviz MD, [facility] ([phone]), at 10/31/2020 7:19 PM Pending Studies and Lab Data at Discharge: Order Name Source Comment Collection Info Order Time SPECIMEN TO PATHOLOGY Scar and synovium rule out infection OR 12 [id number] Left Femoral Head component fracture scar and synovium rule out infection excision 11/01/2020 2:35 PM Time specimen removed from patient: 2:34 PM Number of tissue samples (in container) 1 Transfusions: No Discharge Conditions/Prognosis: Stable, awake, and alert. Mobilizing as noted above, pain controlled on oral medications. Discharge to: Rehab [facility] [address] [place] [id number] Updated Allergies/ADRs: Allergies Allergen Reactions ??? Metformin [...] to patient's PCP, Dr. Nick Nettles - [phone]. Office phone: [phone]. 2. Activity: Enhanced: Full weight bearing as [...] patient should continue seeing wound care at [facility] once discharged. 11. Unna boot LLE - [...] INR drawn, please call Dr. Nettles's office ([phone]) for further dose instructions. Warfarin (Coumadin??) should [...] not take or discontinue any prescription or hdjc-vas-mqowkgf medications without asking your doctor or pharmacist [...] bowel movement. You can also take an plbr-pvx-fufmnee medication, Miralax if needed to combat constipation. [...] the incision provided there is no drainage.. Sutures/[place]: 1. Staple/suture removal 3 weeks after surgery (approximately 11/21/2020- probably at your follow-upOrtho appt on 11/16/2020). Prevena Incisional VAC: 1. You have an incisional VAC (vacuum or negative pressure dressing) on your left hip. This is a one-time use system that will work for 7 days after application. 2. The dressing will stay in place for 7 days. When the [place] on the front of the [...] as much as possible. Call your doctor ([phone]) if you develop: 1. Fever greater than 100.5 2. Severe nausea or vomiting 3. Increasing pain that is not controlled by pain medications 4. Increasing redness, swelling, or drainage from incisions 5. Change in sensation FOLLOW-UP APPOINTMENTS: 1. You will have follow-up appointments at [facility] as indicated below in Future Appointment and Orders. 2. You will need to have x-rays prior to your follow-up appointment on 11/16/2020. Please come to Radiology, desk 3T, 1 hour BEFORE that appointment for these x-rays. Future Appointments Date Time Provider Department Center 11/08/2020 8:30 AM Yaneth Sage, [facility] VAS LAB [facility] 11/08/2020 9:00 AM Delroy More MD [facility] V SURG [facility] 11/16/2020 9:30 AM [facility] DX ROOM 3 MH Xray [facility] Rad 11/16/2020 10:30 AM Jeffrey Cuevas MD [facility] ORTH 3C [facility] If you have questions or concerns: Friday [...] Yaneth Sage RVT Vascular Lab at [facility] Arrive at: [employer] [facility] Area 3V [phone] 11/08/2020 9:00 AM Delroy More MD Vascular Surgery at [facility] Arrive at: [employer] [facility] Area 3V [phone] Check-in: [facility] Area 3V. 11/16/2020 9:30 AM [facility] DX ROOM 3 XRay at [facility] Arrive at: [facility] [employer] [facility] Area 3T [phone] Please go to [facility] [employer] [facility] Area 3T ([place] Location). 11/16/2020 10:30 AM Jeffrey Cuevas MD Orthopaedics at [facility] Arrive at: [employer] [facility] Area 3C [phone] Primary Care Provider: Nick Nettles MD [phone] Discharge References/Attachments None documented in this encounter [...] dressing * Patient Instructions* Robinson Blank P, REFERENCE LIBRARY ASSISTANT - 11/01/2020 4:18 PM EST Activity: 1. [...] INR drawn, please call Dr. Nettles's office ([phone]) for further dose instructions. Warfarin (Coumadin??) should [...] not take or discontinue any prescription or unti-xps-isyhkoh medications without asking your doctor or pharmacist [...] bowel movement. You can also take an tdot-wjk-nvwrmog medication, Miralax if needed to combat constipation. [...] the incision provided there is no drainage.. Sutures/[place]: 1. Staple/suture removal 3 weeks after surgery (approximately 11/21/2020- probably at your follow-upOrtho appt on 11/16/2020). Prevena Incisional VAC: 1. You have an incisional VAC (vacuum or negative pressure dressing) on your left hip. This is a one-time use system that will work for 7 days after application. 2. The dressing will stay in place for 7 days. When the [place] on the front of the [...] extremity unna boot per Wound Care Protocol. [facility] Remember that ICE and elevation are very important after surgery to help decrease swelling and control pain. Use ICE for 20-30 minutes at a time and keep your leg elevated as much as possible. Call your doctor ([phone]) if you develop: 1. Fever greater than 100.5 2. Severe nausea or vomiting 3. Increasing pain that is not controlled by pain medications 4. Increasing redness, swelling, or drainage from incisions 5. Change in sensation FOLLOW-UP APPOINTMENTS: 1. You will have follow-up appointments at [facility] as indicated below in Future Appointment and Orders. 2. You will need to have x-rays prior to your follow-up appointment on 11/16/2020. Please come to Radiology, desk 3T, 1 hour BEFORE that appointment for these x-rays. Future Appointments Date Time Provider Department Center 11/08/2020 8:30 AM Yaneth Sage RVT [facility] VAS LAB JOHNNA BROOKS 11/08/2020 9:00 AM Delroy More MD [facility] V SURG [facility] 11/16/2020 9:30 AM [facility] DX ROOM 3 Xray [facility] Rad 11/16/2020 10:30 AM Jeffrey Cuevas MD [facility] ORTH [address] [place] [address] If you have questions or concerns: Friday [...] EST Patient accepted SWING bed offer at: [facility] and Sub-Acute (Swing) Rehab Levels of Care [address] [place] [address] Transportation: ambulance Ambulance transportation is medically necessary at discharge related to 2xassist for transfers, moderate to severe pain on movement, inability to maintain erect seated position/ pain on movement, medical equipment repair technician required, morbid obesity. I have discussed Medicare/Private Insurance reimbursement guidelines for ambulance transport. Patient verbalize understanding of their potential financial obligation and agree with ambulance transport. * Johnna Arroyo RN - 11/03/2020 10:46 AM EST Office of Care Management/Test Engine Operator Patient Name: Jaime Crouch : 1945 Patient has been offered a swing bed at [facility] for today. [facility] arranged for a 3pm transport. Ambulance will need: Medicare ambulance form completed and signed (MD or End Matcher RN/CLINICAL LABORATORY TECHNICIAN) Copy of patient demographics [place] Out of Hospital DNR/DNI order, if active MD to MD report to Dr. Carter at [phone]. Please call Nursing Report to [phone] ask for diamond cleaver. Info to accompany patient: Copies of Medication Administration Records and IV sheets for past 10 days. Plan: Test Engine Operator will be available to the patient and End Matcher-RN and/or Social Workerfor further assistance. Patient will be discharged to: [facility] JOHNNA ARROYO RN, Test Engine Operator * Jeffrey Cuevas MD - 11/03/2020 6:49 [...] Center 11/08/2020 8:30 AM Yaneth Sage, [facility] VAS LAB JOHNNA BROOKS 11/08/2020 9:00 AM Delroy More MD [facility] V SURG [facility] 11/16/2020 9:30 AM [facility] DX ROOM 3 MH Xray [facility] Rad 11/16/2020 10:30 AM Jeffrey Cuevas MD [facility] ORTH 3C [facility] * Jewell Gonzalez RN - 11/03/2020 2:12 [...] He had his home unit setup at [facility] upon initial assessment this evening, humidity [...] discharge planning needs. I have provided the [facility], Office of Care Management letter from the Master Hearth Technician pertaining to rehab referrals. I have also provided a letter describing our affiliations within the [facility] and educatedthem about their right to choose [...] The patient have requested referrals to: 1. [facility] Sub-Acute (Swing) Rehab Levels of Care [address] [place] [address] ?? 2. Daniela Tracky (Swing) ([facility]) [address] [place] [address] ?? PHONE: [phone] FAX: [phone] ?? Expected date of discharge: 11/03-11/04 Note routed to Test Engine Operator who will communicate referrals to facilities and provide any required information. * Maryellen Rhaman PT - 11/02/2020 11:45 AM EST Physical Therapy Evaluation Patient profile: Jaime Crouch is a 75 y.o. morbidly obese marriedmale admitted on 10/31/[address] Geovani Strange MD for planned L NAIDA revision Patient with the following active problems: Past Medical History: Diagnosis Date ??? ASCVD (arteriosclerotic cardiovascular disease) 1993 first DE 1992, stent to LAD in 2006 ??? [...] ERCP performed by Nick Broussard MD at [facility] ENDOSCOPY ??? PRO ERCP,DIAGNOSTIC N/A 08/30/2015 ERCP performed by Nick Broussard MD at [facility] MAIN OR ??? PRO ERCP,DIAGNOSTIC N/A 08/30/2015 ERCP performed by Nick Broussard MD at [facility] ENDOSCOPY ??? PRO LAP, CHOLECYSTECTOMY N/A 09/01/2015 LAPAROSCOPIC CHOLECYSTECTOMY performed by Esha Moon MD at [facility] MAIN OR ??? TOTAL [...] of AE, increased time. assist w/ shoes, glass toughening operator x 2/wk for dressing changes on feet. [...] understands that he will benefit from ongoing in-vessel captain PT/OT to progress toward the following goals [...] eval, home management). MARYELLEN RAHMAN PT Pager: [phone] Physical Therapy Inpatient Rehabilitation Department * Sherman Caldera, OT - 11/02/2020 10:55 AM EST Occupational Therapy Evaluation Patient profile: Jaime Crouch is a 75 y.o. male with hx of morbid obesity DM, CHf, afib on warfarin who present with left femoral head fracture in his left NAIAD. Patient reports he got up one night [...] ??? ASCVD (arteriosclerotic cardiovascular disease) 1993 first DE 1992, stent to LAD in 2006 ??? [...] ERCP performed by Nick Broussard MD at [facility] ENDOSCOPY ??? PRO ERCP,DIAGNOSTIC N/A 08/30/2015 ERCP performed by Nick Broussard MD at [facility] MAIN OR ??? PRO ERCP,DIAGNOSTIC N/A 08/30/2015 ERCP performed by Nick Broussard MD at [facility] ENDOSCOPY ??? PRO LAP, CHOLECYSTECTOMY N/A 09/01/2015 LAPAROSCOPIC CHOLECYSTECTOMY performed by Esha Moon MD at [facility] MAIN OR ??? TOTAL [...] of AE, increased time. assist w/ shoes, glass toughening operator x 2/wk for dressing changes on feet. Ptreports independence w/ grooming, toileting, and bathing. Precautions/Special Considerations: abdominal binder at all times, Provena incisional vac at continuous suction to L hip, WBAT LLE, fall, enhanced hip precautions, Subjective: I use a back other spatial scientist (liquid yeast supervisor) and it takes me a while. when [...] teeth, washed face w/ set up from [facility]. Dressing: Pt TotalA for donning of socks. Pt issued and educated on liquid yeast supervisor/modified technique, will review in future sessions. Pt [...] and measurable assessment of functional outcome. Pager: [phone] Sherman Caldera OT 11/02/2020 Occupational Therapy Rehabilitation [...] Center 11/08/2020 8:30 AM Yaneth Sage RVT [facility] VAS LAB JOHNNA BROOKS 11/08/2020 9:00 AM Delroy More MD [facility] V SURG [facility] 11/16/2020 9:30 AM [facility] DX ROOM 3 MH Xray [facility] Rad 11/16/2020 10:30 AM Jeffrey Cuevas MD [facility] ORTH 3C [facility] Associated attestation - Geovani Strange MD - [...] Time Provider Department Center 11/02/2020 8:45 AM [facility] DX ROOM 3 MH Xray [facility] Rad 11/02/2020 9:05 AM LAB, THREE L Lab 3L JOHNNA BROOKS 11/02/2020 10:00 AM Jeffrey Cuevas MD [facility] ORTH 3C [facility] 11/08/2020 8:30 AM Yaneth Sage RVT [facility] VAS LAB JOHNNA ROBLEDOCO 11/08/2020 9:00 AM Delroy More MD [facility] V SURG [facility] * Amanda Perez RN - 11/01/2020 7:25 [...] Jane Kern - 11/01/2020 1:51 PM EST Shot Polisher And Inspector Encounter Note Patient Name: Jaime Crouch : [id number] MR#: [id number] Admit Date: 10/31/2020 4:11 PM Hospital Day 1 day Narrative: Responded to a scow derrick operator consult. Mr Crouch was awake and awaiting transport to his procedure whenI arrived. Assessment: Mr. Crouch had asked to see Fr. Ford because during a prior hospitalization they had enjoyed a conversation., When I explained Fr. Ford was away he readily engaged discussing his Judaism misty and hisadmiration for the work of [...] up post operatively. Magui No, PT Pager #[phone] * Nick Chaves RN - 11/01/2020 10:43 AM EST Patient reports no chest pain, SOB, numbness or tingling, and no pain. Patient has an IV in left arm capped. Patient is dim on RA, HR irregular with hx of a- fib. Last BM was DIRECTOR OF COUNSELING, voiding in urinal and up to toilet. [...] SpO2 96 % Sherman Caldera OT Pager: [phone] * Jeffrey Cuevas MD - 11/01/2020 6:48 [...] Time Provider Department Center 11/02/2020 8:45 AM [facility] DX ROOM 3 MH Xray [facility] Rad 11/02/2020 9:05 AM LAB, THREE L Lab [facility]L [facility] 11/02/2020 10:00 AM Jeffrey Cuevas MD [facility] ORTH 3C [facility] 11/08/2020 8:30 AM Yaneth Sage, T [facility] VAS LAB [facility] 11/08/2020 9:00 AM Delroy More MD [facility] V SURG [facility] * Slim Kaiser RCP - 10/31/2020 9:01 [...] of the femoral head. Referred down to [facility] for further treatment. Patient reports he doesn't [...] Time Provider Department Center 11/02/2020 8:45 AM [facility] DX ROOM 3 Xray [facility] Rad 11/02/2020 9:05 AM LAB, THREE L Lab 3L JOHNNA BROOKS 11/02/2020 10:00 AM Jeffrey Cuevas MD [facility] ORTH 3C [facility] 11/08/2020 8:30 AM Yaneth Sage RVT [facility] VAS LAB JOHNNA BROOKS 11/08/2020 9:00 AM Delroy More MD [facility] V SURG [facility] Associated attestation - Geovani Strange MD - [...] was instructed to come to ED at [facility] for likely admission to ortho for repair. [...] RNA Not Detected Not Detected SARS-CoV-2 Source MANAGER CHEMICAL Swab EKG 12 Lead Result Value Ref Range Ventricular rate 80 BPM Atrial Rate 80 BPM QRS Duration 114 ms Q-T Interval 394 ms QTC Calculated (Bezet) 454 ms Calculated R [place] -33 degrees Calculated T [place] 4 degrees INTERPRETATION Atrial fibrillation with premature [...] below. Electronically signed by: Seymour Galaviz MD, [facility] ([phone]), at 10/31/2020 7:19 PM XR Femur 2 views Left (Generic) Final Result [...] below. Electronically signed by: Seymour Galaviz MD, [facility] ([phone]), at 10/31/2020 6:56 PM XR Pelvis (Generic) [...] below. Electronically signed by: Seymour Galaviz MD, [facility] ([phone]), at 10/31/2020 6:56 PM ASSESSMENT & PLAN [...] to orthopedic surgery. Amanda Hansen PA 10/31/20 [phone] * Jeanie Shannon RN - 10/31/2020 6:51 [...] [x] None Exposure [] Recent travel outside [place] [] Contact with known or suspected positive individuals [x] None PE: There were no vitals taken for this visit. Patient well-appearing, no acute distress. PLAN: Labs ordered. X-ray in chart from yesterday. Repeat examination, obtain further diagnostics as indicated, and ongoing evaluation/management per ED provider. Bucky Jj PA 10/31/20 [phone] documented in this encounter Miscellaneous Notes * [...] Please contact Mary Lozano RN on pager [phone] or the wound care team at [phone] or pager [phone] with skin and wound care concerns or questions. * Consult Note - Benjamín Myles III, MD - 11/03/2020 7:31 AM EST Internal Medicine Initial Consult Note Admit date: Hospital day: Service: Primary Attending Consult Attending 10/31/[address] [place] [address] Medicine MD Deana Mojica MD Reason for [...] MD Internal Medicine, PGY3 FORTUNATO Pager # [phone] Associated attestation - Amber Castro MD - [...] history, admitting diagnosis and active problem list. REFERENCE LIBRARY ASSISTANT at bedside assisting with patient care. Patient reports he has wound care for BLEs at the [facility] wound care clinic which provides podiatry care and Unnas boots to LLE, medigrip to RLE; [facility] wound care officedoes not provide care to [...] and intact from knee down. LLE is gulrdxi-xnzfip-gecaj, mepilex border dressing at lateral lower leg [...] HOB higher than 30 degrees) Use a [facility] chair cushion beneath patient at all times [...] Please contact Sara Montoya RN on pager [phone] or the wound care team at [phone] or pager [phone] skin and wound care concerns or questions. [...] procedure. He sees wound care regularly at [facility]. The patient had ABIs performed at [facility] in 2015 which were normal with triphasic waveforms bilaterally. The patient was referred to see vascular surgery as an outpatient for these non healing wounds and has an appointment scheduled with Dr. More 11/08 with repeat ABIs. Vascular surgery was asked to see the patient while he is inpatient as it is difficult for him to get to [facility] given his limited mobility postoperatively and struggles with incontinence. Review of Systems: A 10 point review of systems was conducted and is negative except as above Past Medical History: Past Medical History: Diagnosis Date ??? ASCVD (arteriosclerotic cardiovascular disease) 1993 first DE 1992, stent to LAD in 2006 ??? [...] ERCP performed by Nick Broussard MD at [facility] ENDOSCOPY ??? PRO ERCP,DIAGNOSTIC N/A 08/30/2015 ERCP performed by Nick Broussard MD at [facility] MAIN OR ??? PRO ERCP,DIAGNOSTIC N/A 08/30/2015 ERCP performed by Nick Broussard MD at [facility] ENDOSCOPY ??? PRO LAP, CHOLECYSTECTOMY N/A 09/01/2015 LAPAROSCOPIC CHOLECYSTECTOMY performed by Esha Moon MD at [facility] MAIN OR ??? TOTAL [...] primarily been managed by wound care at [facility]. The patient has never seen a vascular [...] patient should continue seeing wound care at [facility] once discharged, as he is. Elvira Daigle MD Vascular Surgery Consult service will continue to follow patient. Please page [phone] (day) or [phone] (night) with questions/concerns x Recommendations are above, [...] from the original note were not included. [facility] Operative Note Patient Name: Jaime Crouch : [id number] MR#: [id number] Case Date: 11/01/2020 Surgeon: Surgeon(s) and Role: * Geovani Strange MD - Primary * Jeffrey Cuevas MD - Fellow * Delroy Brooks PA - Physician Dish Room Worker Preoperative diagnosis: Left Femoral Head component fracture [...] and synovium rule out infection OR 12 [id number] Left Femoral Head component fracture scar and [...] Femoral Stem: Retained Optifix Liner: Depuy Size [id number] biolox Femoral Head: 36mm +4 Oxinium Intraoperative [...] This case was performed with a Physician Dish Room Worker who was critical for patient positioning and [...] Implant Name Type Inv. Item Serial No. Enforcement Safety Officer Lot No. LRB No. Used Action GRAFT BONE FILLER 10ML CALCIUM SULFATE POWDER INJECTABLE ([id number]) - [id number] IMPLANTS GRAFT BONEFILLER 10ML CALCIUM SULFATE POWDER INJECTABLE ([id number]) [employer] - BIOCOMPOSI [id number] 1 Implanted SHELL ACET HIP 62MM POR CTD MULTI HOLE TI PINNACLE GRIPTION ([id number]) (AUTOREQ) - [id number] IMPLANTS SHELL ACET HIP 62MM POR CTD MULTI HOLE TI PINNACLE GRIPTION ([id number]) (AutoReq) [employer] BHARAT [id number] Left 1 Implanted SCREW HIP ACET 6.5X20MM FT CANC HEX DRV TI PINNACLE ([id number]) (AutoReq) - [id number] IMPLANTS SCREWHIP ACET 6.5X20MM FT CANC HEX DRV TI PINNACLE ([id number]) (AutoReq) [employer] BHARAT [id number] Left 1 Implanted LINER ACET HIP [id number] 0D STND CERAMIC CERAMAX ([id number]) (AUTOREQ) - [id number] IMPLANTS LINER ACETHIP [id number] 0D STND CERAMIC CERAMAX ([id number]) (AutoReq) [facility] BHARAT [id number] Left 1 Implanted SCREW HIP ACET 6.5X25MM FT CANC HEX DRV TI PINNACLE ([id number]) (AUTOREQ) - [id number] IMPLANTS SCREWHIP ACET 6.5X25MM FT CANC HEX DRV TI PINNACLE ([id number]) (AutoReq) [facility] BHARAT [id number] Left 1 Implanted DEPUY, PINNACLE, CANCELLOUS BONE SCREW, [id number] Left 1 Implanted CAUSEY & NEPHEW, OXINIUM, 36MM O.D., +4, TAPER FEMORAL HEAD [id number] Left 1 Implanted * Plan of Care [...] bed/chair alarm, demonstrates proper use of call setevez and verbalizes understanding of fall preventions implemented. [...] Service: Primary Attending Consult Attending 10/31/2020 0 [facility] Medicine MD Deana Mojica MD [...] is able to help out with some transmission builder. He denies cough, hemoptysis, or productive sputum. [...] ago. His PCP is Delroy Nettles, in [place], [place]. Past Medical History/Problem List Patient Active [...] ??? ASCVD (arteriosclerotic cardiovascular disease) 1993 first [place] 1992, stent to LAD in 2006 ??? [...] Chest pain. Reported on 02/17/2017 Warfarin - Smp-Bfq-Mvos-Friday - 4mg; Fri- 5mg Furosemide 40mg b.i.d [...] ERCP performed by Nick Broussard MD at [facility] ENDOSCOPY ??? PRO ERCP,DIAGNOSTIC N/A 08/30/2015 ERCP performed by Nick Broussard MD at [facility] MAIN OR ??? PRO ERCP,DIAGNOSTIC N/A 08/30/2015 ERCP performed by Nick Broussard MD at [facility] ENDOSCOPY ??? PRO LAP, CHOLECYSTECTOMY N/A 09/01/2015 LAPAROSCOPIC CHOLECYSTECTOMY performed by Esha Moon MD at [facility] MAIN OR ??? TOTAL HIP ARTHROPLASTY Bilateral Social History: Tobacco: Quit smoking 50 years ago, was a 1 pack per day smoker. Etoh: 1 drink every 2 weeks. Illicits: No illicit drug use. Living Situation: Lives at home with his , Leah of 38 years. 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 Vitals: Last value Range last 24 hrs [...] MD Internal Medicine, PGY3 FORT[place]ATO Pager # [phone] Associated attestation - Deana Dove MD - [...] ??? ASCVD (arteriosclerotic cardiovascular disease) 1993 first [place] 1992, stent to LAD in 2006 ??? [...] bilateral lower extremity. Left worse than right. [place] wound clinic: 3x/week. Was the size of a 45 record, to quarter. Health/Prescription Coverage: Primary Insurance: MEDICARE Secondary Insurance: [employer] [place] Prescription Coverage: Yes Preferred Pharmacy: [facility] Other: Community Pharmacy: Cheaper for most medications. Primary Care Provider: Nick Nettles MD [phone] Patient/Caregiver Goals of Treatment: Home Potential Needs for Transition of Care: Rehab/SNF: mentioned [facility] Levels of rehab reviewed. Acute/SNF Home Health: [facility] current DME: MINDY boot, cane, FWW borrowed. Dialysis: NA Community Resources: [place], [facility] community Transportation: , Leah Other: Pt has comoputere Anticipated Barriers to Discharge/Special Considerations:NONE Assessment: Pt requires acute level of care for management of Left Hip Rx. Plan: Admit to Ortho OR 2/4 Home with VN PT OT HOT CELL TECHNICIAN, is preference. A member of the Care Management team will continue to monitor progress, follow for continuity of care and assist with transition of care planning. DOROTHEA WALKER RN Pager: # [phone] documented in this encounter Plan of Treatment [...] Head component fracture Revise Total Hip Replacement (55001) 11/01/2020 1:29 PM EST Left Femoral Head [...] 6:5 8 PM EST RAPID COVID-19 PCR ([facility]/APD/[facility]) STAT 10/31/2020 6:52 PM [...] Glucose, POC 163 65 - 199 mg/dL [facility] Comment: Supplemental ranges: <140 mg/dL before meals <180 mg/dL all other times of the day Blood specimen (specimen) 11/03/2020 11:26 AM EST 11/03/2020 11:26 AM EST Geovani Strange MD POINT OF CARE TEST ORDERABLES [facility] [place] [address] * POCT Glucose (11/03/2020 7:35 AM EST) Glucose, POC 142 65 - 199 mg/dL [facility] Comment: Supplemental ranges: <140 mg/dL before meals <180 mg/dL all other times of the day Blood specimen (specimen) 11/03/2020 7:35 AM EST 11/03/2020 7:35 AM EST Geovani Strange MD POINT OF CARE TEST ORDERABLES Performing Organization Address City/[facility]/ZIP Co de Phone Number [facility] [place] [address] * POCT Glucose (11/03/2020 3:39 AM EST) Glucose, POC 170 65 - 199 mg/dL [facility] Comment: Supplemental ranges: <140 mg/dL before meals <180 mg/dL all other times of the day Blood specimen (specimen) 11/03/2020 3:39 AM EST 11/03/2020 3:39 AM EST Geovani Strange MD POINT OF CARE TEST ORDERABLES [facility] [place] [address] * (ABNORMAL) Differential, Automated (11/03/2020 3:17 AM EST) Neutrophil % 74.6 % [facility] Neutrophil Absolute 8.42(H) 1.70 - 6.10 x10(3)/[facility] Lymph % 10.7 % [facility] Lymphocytes Abs 1.2 0.9 - 3.2 x10(3)/[facility] Monocyte % 12.5 % [facility] Monocyte Abs 1.4(H) 0.3 - 0.9 x10(3)/[facility] Eos % 1.2 % [facility] Eosinophils Abs 0.1 0.0 - 0.4 x10(3)/[facility] Basophil % 0.4 % [facility] Baso Absolute 0.0 0.0 - 0.1 x10(3)/[facility] Immature Gran % 0.60 % [facility] Comment: Immature granulocytes(IG's)percentage and absolute count will include metamyelocytes, myelocytes, and promyelocytes. Blood smears from CBCs yielding IG's will be scanned manually for concordance. If this scan disagrees with the automated IG or if promyelocytes are noted, a manual differential will be performed. Immature Gran Absolute 0.07(H) 0.00 - 0.04 x10(3)/[facility] Blood specimen (specimen) 11/03/2020 3:17 AM EST 11/03/2020 3:50 AM EST Narrative Resulting Agency Comment Spec In Lab Jeffrey Cuevas MD HEMATOLOGY ORDERABLE S [facility] [place] [address] * (ABNORMAL) Hemogram (11/03/2020 3:17 AM EST) White Blood Cell 11.3(H) 4.0 - 9.5 x10(3)/ L [facility] Red Blood Cell 4.89 4.58 - 5.54 x10(6)/ L [facility] Hemoglobin 14.7 13.7 - 16.5 gm/dL [facility] Hematocrit 47.1 40.5 - 48.5 % [facility] Mean Cell Volume 96.3(H) 82.9 - 93.1 fL [facility] Mean Cell Hemoglobin 30.1 27.5 - 32.1 pg [facility] Mean Cell Hemoglobin Concentration 31.2(L) 32.0 - 35.7 gm/dL [facility] Platelet 225 145 - 357 x10(3)/[facility] RDW Standard Deviation 57.3(H) 36.0 - 45.0 [facility] RDW coefficient of variation 16.1(H) 11.4 - 13.8 % [facility] Mean Platelet Volume 9.3 7.6 - 12.9 [facility] NRBC% auto 0.0 % [facility] NRBC Absolute 0.000 0.000 - 0.000 x10(3)/[facility] Blood specimen (specimen) 11/03/2020 3:17 AM EST 11/03/2020 3:50 AM EST Narrative Resulting Agency Comment Spec In Lab Jeffrey Cuevas MD HEMATOLOGY ORDERABLE S [facility] [place] [address] * (ABNORMAL) Prothrombin Time (11/03/2020 3:17 AM EST) Prothrombin Time 21.9(H) 9.4 - 12.5 sec [facility] International Normalization Ratio 1.9 [facility] Comment: An INR <2.0 [...] Lab Jeffrey Cuevas MD HEMATOLOGY ORDERABLE S [facility] [place] [address] * (ABNORMAL) Basic Metabolic Panel (non-fasting) (11/03/2020 3:17 AM EST) Glucose 147 65 - 199 mg/dL [facility] Comment:Diabetes: >=200 mg/d L plus symptoms Blood Urea Nitrogen 23(H) 10 - 20 mg/dL [facility] Creatinine 0.78(L) 0.80 - 1.50 mg/dL [facility] Sodium 141 135 - 145 mmol/L [facility] Potassium 4.5 3.5 - 5.0 mmol/L [facility] Comment: Please note: ??Patients with WBC >100,000 may have falsely elevated Potassium levels. ??For accurate Potassium quantification in these patients send serum separator tube (gold top) for subsequent determinations. ??Contact the Clinical Chemistry Laboratory if there are any questions. Chloride 107 98 - 107 mmol/L [facility] Carbon Dioxide 23 22 - 31 mmol/L [facility] Anion Gap 11 5 - 15 mmol/L [facility] Calcium 9.3 8.5 - 10.5 mg/dL [facility] Est Glomerular Filtration Rate 90 >=60 mL/min/1. 73 m?? [facility] Comment: This patient? s [...] Cuevas MD CHEMISTRY ORDERABLES Performing Organization Address City/[facility]/ZIP Co de Phone Number [facility] [place] [address] * POCT Glucose (11/03/2020 12:06 AM EST) Glucose, POC 173 65 - 199 mg/dL [facility] Comment: Supplemental ranges: <140 mg/dL before meals <180 mg/dL all other times of the day Blood specimen (specimen) 11/03/2020 12:06 AM EST 11/03/2020 12:06 AM EST Geovani Strange MD POINT OF CARE TEST ORDERABLES Performing Organization Address [facility] Co de Phone Number [facility] [place] [address] * (ABNORMAL) POCT Glucose (11/02/2020 7:26 PM EST) Glucose, POC 204(H) 65 - 199 mg/dL [facility] Comment: Supplemental ranges: <140 mg/dL before meals <180 mg/dL all other times of the day Blood specimen (specimen) 11/02/2020 7:26 PM EST 11/02/2020 7:26 PM EST Geovani Strange MD POINT OF CARE TEST ORDERABLES Performing Organization Address City/[facility]/ZIP Co de Phone Number [facility] [place] [address] * POCT Glucose (11/02/2020 4:31 PM EST) Glucose, POC 190 65 - 199 mg/dL [facility] Comment: Supplemental ranges: <140 mg/dL before meals <180 mg/dL all other times of the day Blood specimen (specimen) 11/02/2020 4:31 PM EST 11/02/2020 4:31 PM EST Geovani Strange MD POINT OF CARE TEST ORDERABLES [facility] [place] [address] * POCT Glucose (11/02/2020 12:21 PM EST) Glucose, POC 186 65 - 199 mg/dL [facility] Comment: Supplemental ranges: <140 mg/dL before meals <180 mg/dL all other times of the day Blood specimen (specimen) 11/02/2020 12:21 PM EST 11/02/2020 12:21 PM EST Geovani Strange MD POINT OF CARE TEST ORDERABLES [facility] [place] [address] * POCT Glucose (11/02/2020 8:04 AM EST) Glucose, POC 125 65 - 199 mg/dL [facility] Comment: Supplemental ranges: <140 mg/dL before meals <180 mg/dL all other times of the day Blood specimen (specimen) 11/02/2020 8:04 AM EST 11/02/2020 8:04 AM EST Geovani Strange MD POINT OF CARE TEST ORDERABLES [facility] [place] [address] * (ABNORMAL) Differential, Automated (11/02/2020 3:46 AM EST) Neutrophil % 81.0 % [facility] Neutrophil Absolute 10.16(H) 1.70 - 6.10 x10(3)/[facility] Lymph % 9.6 % [facility] Lymphocytes Abs 1.2 0.9 - 3.2 x10(3)/[facility] Monocyte % 8.6 % [facility] Monocyte Abs 1.1(H) 0.3 - 0.9 x10(3)/[facility] Eos % 0.1 % [facility] Eosinophils Abs 0.0 0.0 - 0.4 x10(3)/[facility] Basophil % 0.3 % [facility] Baso Absolute 0.0 0.0 - 0.1 x10(3)/[facility] Immature Gran % 0.40 % [facility] Comment: Immature granulocytes(IG's)percentage and absolute count will include metamyelocytes, myelocytes, and promyelocytes. Blood smears from CBCs yielding IG's will be scanned manually for concordance. If this scan disagrees with the automated IG or if promyelocytes are noted, a manual differential will be performed. Immature Gran Absolute 0.05(H) 0.00 - 0.04 x10(3)/[facility] Blood specimen (specimen) 11/02/2020 3:46 AM EST 11/02/2020 4:26 AM EST Narrative Resulting Agency Comment Spec In Lab Jeffrey Cuevas MD HEMATOLOGY ORDERABLE S [facility] [place] [address] * (ABNORMAL) Hemogram (11/02/2020 3:46 AM EST) Pathologist [facility] White Blood Cell 12.5(H) 4.0 - 9.5 x10(3)/ L [facility] Red Blood Cell 5.04 4.58 - 5.54 x10(6)/mc L [facility] Hemoglobin 15.0 13.7 - 16.5 gm/dL [facility] Hematocrit 49.1(H) 40.5 - 48.5 % [facility] Mean Cell Volume 97.4(H) 82.9 - 93.1 fL [facility] Mean Cell Hemoglobin 29.8 27.5 - 32.1 pg [facility] Mean Cell Hemoglobin Concentration 30.5(L) 32.0 - 35.7 gm/dL [facility] Platelet 252 145 - 357 x10(3)/[facility] RDW Standard Deviation 58.0(H) 36.0 - 45.0 fL [facility] RDW coefficient of variation 16.3(H) 11.4 - 13.8 % [facility] Mean Platelet Volume 9.1 7.6 - 12.9 [facility] NRBC% auto 0.0 % [facility] NRBC Absolute 0.000 0.000 - 0.000 x10(3)/[facility] Blood specimen (specimen) 11/02/2020 3:46 AM EST 11/02/2020 4:26 AM EST Narrative Resulting Agency Comment Spec In Lab Jeffrey Cuevas MD HEMATOLOGY ORDERABLE S [facility] [place] [address] * (ABNORMAL) Prothrombin Time (11/02/2020 3:46 AM EST) Prothrombin Time 20.5(H) 9.4 - 12.5 sec [facility] International Normalization Ratio 1.8 [facility] Comment: An INR <2.0 [...] Lab Jeffrey Cuevas MD HEMATOLOGY ORDERABLE S [facility] [place] [address] * (ABNORMAL) Basic Metabolic Panel (non-fasting) (11/02/2020 3:46 AM EST) Glucose 150 65 - 199 mg/dL [facility] Comment:Diabetes: >=200 mg/d L plus symptoms Blood Urea Nitrogen 24(H) 10 - 20 mg/dL [facility] Creatinine 0.90 0.80 - 1.50 mg/dL [facility] Sodium 141 135 - 145 mmol/L [place] questions. Chloride 106 98 - 107 mmol/L [facility] Carbon Dioxide 24 22 - 31 mmol/L [facility] Anion Gap 11 5 - 15 mmol/L [facility] Calcium 8.8 8.5 - 10.5 mg/dL [facility] Est Glomerular Filtration Rate 84 >=60 mL/min/1. 73 m?? [facility] Comment: This patient? s [...] Cuevas MD CHEMISTRY ORDERABLES Performing Organization Address [facility] Co de Phone Number [facility] [place] [address] * POCT Glucose (11/01/2020 11:34 PM EST) Glucose, POC 136 65 - 199 mg/dL [facility] Comment: Supplemental ranges: <140 mg/dL before meals <180 mg/dL all other times of the day Blood specimen (specimen) 11/01/2020 11:34 PM EST 11/01/2020 11:34 PM EST Geovani Strange MD POINT OF CARE TEST ORDERABLES Performing Organization Address [facility] Co de Phone Number [facility] [place] [address] * POCT Glucose (11/01/2020 7:04 PM EST) Glucose, POC 121 65 - 199 mg/dL [facility] Comment: Supplemental ranges: <140 mg/dL before meals <180 mg/dL all other times of the day Blood specimen (specimen) 11/01/2020 7:04 PM EST 11/01/2020 7:04 PM EST Geovani Strange MD POINT OF CARE TEST ORDERABLES Performing Organization Address City/[facility]/ZIP Co de [place] [address] * XR Pelvis (Generic) (11/01/2020 6:19 PM [...] below. ? Electronically signed by: Slim Wright MD, [facility] ([phone]), at 11/01/2020 6:49 PM Narrative 11/01/2020 6:49 [...] below. Electronically signed by: Slim Wright MD, [facility]([phone]), at 11/01/2020 6:49 PM Jeffrey Cuevas MD IMG DX ORDERABLES * POCT Glucose (11/01/2020 5:25 PM EST) Glucose, POC 106 65 - 199 mg/dL [facility] Comment: Supplemental ranges: <140 mg/dL before meals <180 mg/dL all other times of the day Blood specimen (specimen) 11/01/2020 5:25 PM EST 11/01/2020 5:25 PM EST Geovani Strange MD POINT OF CARE TEST ORDERABLES Performing Organization Address City/State/[facility] Co de Phone Number [facility] [place] [address] * (ABNORMAL) BLOOD GAS 2 ARTERIAL (11/01/2020 2:49 PM EST) [facility] Signature pH, Arterial 7.34(L) 7.35 - 7.45 [facility] PCO2, Arterial 47(H) 35 - 45 mmHg [facility] PO2, Arterial 110(H) 85 - 104 mmHg [facility] Bicarbonate, Arterial 24.7 20.0 - 26.0 mmol/L [facility] Base Excess, Arterial -1.4 -3.0 - 3.0 mmol/L [facility] Hgb Blood Gas 17.7(H) 13.7 - 16.5 gm/dL [facility] Oxyhemoglobin, Arterial 95.9 94.0 - 97.0 % [facility] Carboxyhemoglob in, Arterial 1.8 % [facility] Comment: Nonsmokers: 0.5-1.5% COHB Smokers: Variable, but usually less than 10% Toxic: 20-30% COHB Lethal: Greater than 60% COHB Methemoglobin, Arterial 0.3 <=1.5 % [facility] Na Whole Blood 141 135 - 145 mmol/L [facility] K Whole Blood 4.0 3.5 - 5.0 mmol/L [facility] Comment: Please note: Patients with WBC >100,000 may have falsely elevated Potassium levels. Contact the Clinical Chemistry Laboratory if there are any questions. ICa Whole Blood 1.19 1.15 - 1.33 mmol/L [facility] Comment: Note: ??Total bilirubin higher than 20 mg/dL may lead to falsely low ionized calcium. CL Whole Blood 106 98 - 107 mmol/L [facility] Gluc Whole Bld 117 65 - 199 mg/dL [facility] Comment:Diabetes: >=200 mg/d L plus symptoms. Lactate WB 1.5 0.5 - 2.2 mmol/L [facility] FIO2 Art 52 % [facility] Flow Art 0.6 LPM [facility] PF Ratio Art 212 [facility] Temp Art 36.0 Celsius [facility] Blood specimen (specimen) 11/01/2020 2:49 PM EST 11/01/2020 2:49 PM EST Geovani Strange MD POINT OF CARE TEST ORDERABLES Performing Organization Address City/[facility]/ZIP Co de Phone Number [facility] [place] [address] * Anaerobic Culture (11/01/2020 2:46 PM EST) Anaerobic Culture No anaerobic organisms isolated [facility] Joint specimen (specimen) LEFT HIP REGION STRUCTURE / Unknown 11/01/2020 2:46 PM EST 11/01/2020 4:20 PM EST Comment:METALOSIS Narrative Resulting Agency Comment Spec In Lab Geovani Strange MD MICROBIOLOGY - GENE RAL ORDERABLES Performing Organization Address City/[facility]/ZIP Co de Phone Number [facility] [place] [address] * Joint Culture (11/01/2020 2:46 PM EST) Joint Culture No growth at 14 days. [facility] Gram Stain Moderate Neutrophils seen No microorganisms seen. [facility] Joint specimen (specimen) LEFT HIP REGION STRUCTURE / Unknown 11/01/2020 2:46 PM EST 11/01/2020 4:20 PM EST Comment:METALOSIS Narrative Resulting Agency Comment Spec In Lab Geovani Strange MD MICROBIOLOGY - GENE RAL ORDERABLES Performing Organization Address [facility] [place] [place] [address] * Specimen to Pathology (11/01/2020 2:35 PM EST) AP Specimen 11/01/2020 2:35 PM EST 11/01/2020 2:35 PM EST Narrative [facility] - 11/01/2020 2:35 PM EST Specimen requisition ordered. ??Separate Pathology report to follow Geovani Strange MD PATHOLOGY/CYTOLOGY ORDERABLES Performing Organization Address [facility] [place] [place] [address] * Surgical Pathology Report (11/01/2020 2:34 PM EST) Final Diagnosis [id number] ? Location: [facility]; [facility]; A The signing pathologist has (i) [...] Slim Godoy Verified: ??11/06/2020 ?Pathologist Performed at: ??-[facility] Dept. of Pathology, [place], [place] SPECIMEN(S) SUBMITTED A - Scar and synovium CLINICAL INFORMATION Left femoral head component fracture. SPECIMEN PROCESSING A - Labeled/Fixative : Scar and synovium, rule out infection, fresh. Quantity/Size: Fragments, 7 x 5 x 1.5 cm. Tissue Description: Red and black soft tissue with minimal amount of roman bone tissue. Sections/Process ing: Blocks submitted for decalcification: A1-A2. Atomic Welder sections in 4 cassettes labeled A1-A4. ??MV 11/06/2020 8:44 AM EST [facility] SYNOVIUM BIOPSY SPECIMEN / Unknown 11/01/2020 2:34 PM EST 11/01/2020 2:34 PM EST Geovani Strange MD PATHOLOGY/CYTOLOGY ORDERABLES Performing Organization Address City/[facility]/ZIP Co de Phone Number [facility] [place] [address] * Anaerobic Culture (11/01/2020 2:32 PM EST) Anaerobic Culture No anaerobic organisms isolated [facility] Joint specimen (specimen) LEFT HIP REGION STRUCTURE / Unknown 11/01/2020 2:32 PM EST 11/01/2020 4:21 PM EST Comment:OR 12 Narrative Resulting Agency Comment Spec In Lab Geovani Strange MD MICROBIOLOGY - GENE RAL ORDERABLES Performing Organization Address [facility]/ZIP Co de Phone Number [facility] [place] [address] * Joint Culture (11/01/2020 2:32 PM EST) Joint Culture No growth at 14 days. [facility] [facility] Gram Stain Few Neutrophils seen No microorganisms seen. [facility] Joint specimen (specimen) LEFT HIP REGION STRUCTURE / Unknown 11/01/2020 2:32 PM EST 11/01/2020 4:21 PM EST Comment:OR 12 Narrative Resulting Agency Comment Spec In Lab Geovani Strange MD MICROBIOLOGY - GENE RAL ORDERABLES Performing Organization Address [facility] Co de Phone Number [facility] [place] [address] * (ABNORMAL) APTT (11/01/2020 11:29 AM EST) Partial Thromboplastin Time 42(H) 25 - 37 sec [facility] Comment: The PTT is NOT appropriate for heparin monitoring. Use the Anti-Xa level for heparin monitoring (HEP UFH) or LMWH monitoring (HEP LMW). A PTT less than 37 seconds generally indicates adequate hemostasis. Blood specimen (specimen) 11/01/2020 11:29 AM EST 11/01/2020 11:44 AM EST Narrative Resulting Agency Comment Spec In Lab Jeffrey Cuevas MD HEMATOLOGY ORDERABLE S Performing Organization Address [facility] de Phone Number [facility] [place] [address] * (ABNORMAL) Prothrombin Time (11/01/2020 11:29 AM EST) Prothrombin Time 20.8(H) 9.4 - 12.5 sec [facility] International Normalization Ratio 1.8 [facility] Comment: An INR <2.0 [...] Lab Jeffrey Cuevas MD HEMATOLOGY ORDERABLE S [facility] [place] [address] * POCT Glucose (11/01/2020 11:21 AM EST) Glucose, POC 149 65 - 199 mg/dL [facility] Comment: Supplemental ranges: <140 mg/dL before meals <180 mg/dL all other times of the day Blood specimen (specimen) 11/01/2020 11:21 AM EST 11/01/2020 11:21 AM EST Geovani Strange MD POINT OF CARE TEST ORDERABLES Performing Organization Address City/[facility]/ZIP Co de Phone Number [facility] [place] [address] * POCT Glucose (11/01/2020 7:29 AM EST) Glucose, POC 150 65 - 199 mg/dL [facility] Comment: Supplemental ranges: <140 mg/dL before meals <180 mg/dL all other times of the day Blood specimen (specimen) 11/01/2020 7:29 AM EST 11/01/2020 7:29 AM EST Geovani Strange MD POINT OF CARE TEST ORDERABLES Performing Organization Address City/[facility]/ZIP Co de Phone Number [facility] [place] [address] * Differential, Automated (11/01/2020 3:52 AM EST) Neutrophil % 67.1 % [facility] Neutrophil Absolute 5.44 1.70 - 6.10 x10(3)/[facility] Lymph % 19.7 % [facility] Lymphocytes Abs 1.6 0.9 - 3.2 x10(3)/[facility] Monocyte % 9.9 % [facility] Monocyte Abs 0.8 0.3 - 0.9 x10(3)/[facility] Eos % 2.2 % [facility] Eosinophils Abs 0.2 0.0 - 0.4 x10(3)/[facility] Basophil % 0.7 % [facility] Baso Absolute 0.1 0.0 - 0.1 x10(3)/[facility] Immature Gran % 0.40 % [facility] Comment: Immature granulocytes(IG's)percentage and [...] Lab Laurent Painting MD HEMATOLOGY ORDERABLE S [facility] [place] [address] * (ABNORMAL) Hemogram (11/01/2020 3:52 AM EST) White Blood Cell 8.1 4.0 - 9.5 x10(3)/mc L [facility] Red Blood Cell 5.80(H) 4.58 - 5.54 x10(6)/mc L [facility] Hemoglobin 17.5(H) 13.7 - 16.5 gm/dL [facility] Hematocrit 54.1(H) 40.5 - 48.5 % [facility] Mean Cell Volume 93.3(H) 82.9 - 93.1 fL [facility] Mean Cell Hemoglobin 30.2 27.5 - 32.1 pg [facility] Mean Cell Hemoglobin Concentration 32.3 32.0 - 35.7 gm/dL [facility] Platelet 251 145 - 357 x10(3)/mc L [facility] RDW Standard Deviation 54.0(H) 36.0 - 45.0 fL [facility] RDW coefficient of variation 16.1(H) 11.4 - 13.8 % [facility] Mean Platelet Volume 9.2 7.6 - 12.9 fL [facility] NRBC% auto 0.0 % [facility] NRBC Absolute 0.000 0.000 - 0.000 x10(3)/mc L [facility] Blood specimen (specimen) 11/01/2020 3:52 AM EST 11/01/2020 4:13 AM EST Narrative Resulting Agency Comment Spec In Lab Laurent Painting MD HEMATOLOGY ORDERABLE S [facility] [place] [id number] * (ABNORMAL) Basic Metabolic Panel (non-fasting) (11/01/2020 3:52 AM EST) Glucose 140 65 - 199 mg/dL [facility] Comment:Diabetes: >=200 mg/d L plus symptoms Blood Urea Nitrogen 19 10 - 20 mg/dL [facility] Creatinine 0.79(L) 0.80 - 1.50 mg/dL [facility] Sodium 141 135 - 145 mmol/L [facility] Potassium 4.0 3.5 - 5.0 mmol/L [facility] Comment: Please note: ??Patients with WBC >100,000 may have falsely elevated Potassium levels. ??For accurate Potassium quantification in these patients send serum separator tube (gold top) for subsequent determinations. ??Contact the Clinical Chemistry Laboratory if there are any questions. Chloride 106 98 - 107 mmol/L [facility] Carbon Dioxide 25 22 - 31 mmol/L [facility] Anion Gap 10 5 - 15 mmol/L [facility] Calcium 9.6 8.5 - 10.5 mg/dL [facility] Est Glomerular Filtration Rate 89 >=60 mL/min/1. 73 m?? [facility] Comment: This patient? s [...] In Lab Jeffrey Cuevas MD CHEMISTRY ORDERABLES [facility] [place] [address] * (ABNORMAL) Prothrombin Time (11/01/2020 3:52 AM EST) Prothrombin Time 23.1(H) 9.4 - 12.5 sec [facility] International Normalization Ratio 2.0 [facility] Comment: An INR <2.0 [...] Lab Geovani Strange MD HEMATOLOGY ORDERABL ES [facility] [place] [address] * (ABNORMAL) Hemoglobin A1c (11/01/2020 3:52 AM EST) Hemoglobin A1c 7.6(H) 4.3 - 5.6 % [facility] Mellitus, Diabetes Care 2013; 36: Suppl. 1, R27-07 Estimated Average Glucose See note mg/dL [facility] [...] into estimated average glucose values. ??Diabetes Care 2008:31(8):5008-8858. Blood specimen (specimen) 11/01/2020 3:52 AM EST 11/01/2020 4:13 AM EST Narrative Resulting Agency Comment Spec In Lab Geovani Strange MD CHEMISTRY ORDERABLE S [facility] [place] [address] * (ABNORMAL) Differential, Automated (10/31/2020 10:52 PM EST) Neutrophil % 70.5 % [facility] Neutrophil Absolute 7.16(H) 1.70 - 6.10 x10(3)/mc L [facility] Lymph % 18.9 % [facility] Lymphocytes Abs 1.9 0.9 - 3.2 x10(3)/ L [facility] Monocyte % 8.2 % [facility] Monocyte Abs 0.8 0.3 - 0.9 x10(3)/mc L [facility] Eos % 1.5 % [facility] Eosinophils Abs 0.2 0.0 - 0.4 x10(3)/mc L [facility] Basophil % 0.7 % [facility] Baso Absolute 0.1 0.0 - 0.1 x10(3)/mc L [facility] Immature Gran % 0.20 % [facility] Comment: Immature granulocytes(IG's)percentage and absolute count will include metamyelocytes, myelocytes, and promyelocytes. Blood smears from CBCs yielding IG's will be scanned manually for concordance. If this scan disagrees with the automated IG or if promyelocytes are noted, a manual differential will be performed. Immature Gran Absolute 0.02 0.00 - 0.04 x10(3)/mc L [facility] Blood specimen (specimen) 10/31/2020 10:52 PM EST 10/31/2020 10:58 PM EST Narrative Resulting Agency Comment Spec In Lab Laurent Painting MD HEMATOLOGY ORDERABLE S [facility] [place] [address] * (ABNORMAL) Hemogram (10/31/2020 10:52 PM EST) White Blood Cell 10.2(H) 4.0 - 9.5 x10(3)/mc L [facility] Red Blood Cell 5.92(H) 4.58 - 5.54 x10(6)/mc L [facility] Hemoglobin 17.9(H) 13.7 - 16.5 gm/dL [facility] Hematocrit 54.2(H) 40.5 - 48.5 % [facility] Mean Cell Volume 91.6 82.9 - 93.1 [facility] Mean Cell Hemoglobin 30.2 27.5 - 32.1 pg [facility] Mean Cell Hemoglobin Concentration 33.0 32.0 - 35.7 gm/dL [facility] Platelet 262 145 - 357 x10(3)/mc L [facility] RDW Standard Deviation 53.5(H) 36.0 - 45.0 [facility] RDW coefficient of variation 16.1(H) 11.4 - 13.8 % [facility] Mean Platelet Volume 9.0 7.6 - 12.9 [facility] NRBC% auto 0.0 % [facility] NRBC Absolute 0.000 0.000 - 0.000 x10(3)/ L [facility] Blood specimen (specimen) 10/31/2020 10:52 PM EST 10/31/2020 10:58 PM EST Narrative Resulting Agency Comment Spec In Lab Laurent Painting MD HEMATOLOGY ORDERABLE S [facility] [place] [address] * (ABNORMAL) APTT (10/31/2020 10:52 PM EST) Partial Thromboplastin Time 45(H) 25 - 37 sec [facility] Comment: The PTT is NOT appropriate for heparin monitoring. Use the Anti-Xa level for heparin monitoring (HEP UFH) or LMWH monitoring (HEP LMW). A PTT less than 37 seconds generally indicates adequate hemostasis. Blood specimen (specimen) 10/31/2020 10:52 PM EST 10/31/2020 10:58 PM EST Narrative Resulting Agency Comment Spec In Lab Geovani Strange MD HEMATOLOGY ORDERABL ES Performing Organization Address [facility] de Phone Number [facility] [place] [address] * (ABNORMAL) Prothrombin Time (10/31/2020 10:52 PM EST) Prothrombin Time 24.1(H) 9.4 - 12.5 sec [facility] International Normalization Ratio 2.1 [facility] Comment: An INR <2.0 [...] MD HEMATOLOGY ORDERABL ES Performing Organization Address [facility] Co de Phone Number [facility] [place] [address] * (ABNORMAL) Phosphorus (10/31/2020 10:52 PM EST) Phosphorus 2.3(L) 2.5 - 4.5 mg/dL [facility] Blood specimen (specimen) 10/31/2020 10:52 PM EST 10/31/2020 10:58 PM EST Narrative Resulting Agency Comment Spec In Lab Geovani Strange MD CHEMISTRY ORDERABLE S Performing Organization Address [facility] Co de Phone Number [facility] [place] [address] * Magnesium (10/31/2020 10:52 PM EST) Magnesium 0.83 0.69 - 1.07 mmol/L [facility] Blood specimen (specimen) 10/31/2020 10:52 PM EST 10/31/2020 10:58 PM EST Narrative Resulting Agency Comment Spec In Lab Geovani Strange MD CHEMISTRY ORDERABLE S Performing Organization Address [facility] Co de Phone Number [facility] [place] [address] * (ABNORMAL) Basic Metabolic Panel (non-fasting) (10/31/2020 10:52 PM EST) Glucose 124 65 - 199 mg/dL [facility] Comment:Diabetes: >=200 mg/d L plus symptoms Blood Urea Nitrogen 17 10 - 20 mg/dL [facility] Creatinine 0.72(L) 0.80 - 1.50 mg/dL [facility] Sodium 140 135 - 145 mmol/L [facility] Potassium 3.7 3.5 - 5.0 mmol/L [facility] Comment: Please note: ??Patients with WBC >100,000 may have falsely elevated Potassium levels. ??For accurate Potassium quantification in these patients send serum separator tube (gold top) for subsequent determinations. ??Contact the Clinical Chemistry Laboratory if there are any questions. Chloride 102 98 - 107 mmol/L [facility] Carbon Dioxide 25 22 - 31 mmol/L [facility] Anion Gap 13 5 - 15 mmol/L [facility] Calcium 9.5 8.5 - 10.5 mg/dL [facility] Est Glomerular Filtration Rate 93 >=60 mL/min/1. 73 m?? [facility] Comment: This patient? s [...] Lab Geovani Strange MD CHEMISTRY ORDERABLE S [facility] [place] [address] * EKG 12 Lead (10/31/2020 7:22 PM EST) Ventricular rate 80 BPM MUSE SYSTEM Atrial Rate 80 BPM MUSE SYSTEM QRS Duration 114 ms MUSE SYSTEM Q-T Interval 394 ms MUSE SYSTEM QTC Calculated (Bezet) 454 ms MUSE SYSTEM Calculated R [place] -33 degrees MUSE SYSTEM Calculated T [place] 4 degrees MUSE SYSTEM INTERPRETATION Atrial fibrillation [...] ? Electronically signed by: Seymour Galaviz MD, [facility] ([phone]), at 10/31/2020 7:19 PM Narrative 10/31/2020 7:19 [...] below. Electronically signed by: Seymour Galaviz MD, [facility]([phone]), at 10/31/2020 7:19 PM Geovani Strange MD IMG DX ORDERABLES * COVID-19 PCR (10/31/2020 6:52 PM EST) SARS-CoV-2 RNA (Rapid) Not Detected Not Detected [facility] Comment: This result should [...] on the instructions for use provided by [employer] and additional guidance provided by CDC and FDA. 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 [employer] [facility] Nasopharyngeal swab (specimen) 10/31/2020 6:52 PM EST 10/31/2020 7:21 PM EST Comment:Symptoms->Surveillan ce Narrative Resulting Agency Comment Spec In Lab Geovani Strange MD MICROBIOLOGY - [facility] ORDERABLES Performing Organization Address City/State/[facility] Co de Phone Number [facility] [place] [address] * APTT (10/31/2020 6:06 PM EST) Partial Thromboplastin Time 36 25 - 37 sec [facility] Comment: The PTT is NOT appropriate for heparin monitoring. Use the Anti-Xa level for heparin monitoring (HEP UFH) or LMWH monitoring (HEP LMW). A PTT less than 37 seconds generally indicates adequate hemostasis. Blood specimen (specimen) 10/31/2020 6:06 PM EST 10/31/2020 6:14 PM EST Narrative Resulting Agency Comment Spec In Lab Geovani Strange MD HEMATOLOGY ORDERABL ES Performing Organization Address [facility]/ZIP Co de Phone Number [facility] [place] [address] * (ABNORMAL) Prothrombin Time (10/31/2020 6:06 PM EST) Prothrombin Time 24.1(H) 9.4 - 12.5 sec [facility] International Normalization Ratio 2.1 [facility] Comment: An INR <2.0 [...] MD HEMATOLOGY ORDERABL ES Performing Organization Address [facility]/ZIP Co de Phone Number [facility] [place] [address] * XR Pelvis (Generic) (10/31/2020 5:57 PM [...] ? Electronically signed by: Seymour Galaviz MD, [facility] ([phone]), at 10/31/2020 6:56 PM Narrative 10/31/2020 6:56 [...] interpretation and agree with the findings, Seymour Glaaviz MD at 10/31/2020 6:56 PM Thank you for letting us participate in the care of this patient. For questions regarding this report, please contact the number below. ? Electronically signed by: Seymour Galaviz MD, [facility] ([phone]), at 10/31/2020 6:56 PM Narrative 10/31/2020 6:56 [...] below. Electronically signed by: Seymour Galaviz MD, [facility]([phone]), at 10/31/2020 6:56 PM Champ Whitaker IMG DX ORDERABLES * Scan, Peripheral Blood (10/31/2020 3:00 PM EST) Pathologist [facility] Plat estimate Normal [facility] RBC Morphology Normal [facility] Blood specimen (specimen) 10/31/2020 3:00 PM EST 10/31/2020 3:08 PM EST Narrative Resulting Agency Comment Spec In Lab Bucky SIMEON HEMATOLOGY ORDERABLE S Performing Organization Address City/[facility]/ZIP Co de Phone Number [facility] [place] [phone] * ABORH Recheck Status (10/31/2020 3:00 PM EST) [facility] ABORH Type Recheck Completed [facility] Blood specimen (specimen) 10/31/2020 3:00 PM EST 10/31/2020 3:47 PM EST Narrative Resulting Agency Comment Spec In Lab Bucky SIMEON BLOOD BANK LAB ORDER JESSIE Performing Organization Address City/[facility]/ZIP Co de Phone Number [facility] [place] [address] * Antibody screen (10/31/2020 3:00 PM EST) [facility] Ab Screen Interp Negative [facility] Expires at [id number] on: 11/03/2020 [facility] Blood specimen (specimen) 10/31/2020 3:00 PM EST 10/31/2020 3:47 PM EST Narrative Resulting Agency Comment Spec In Lab Bucky SIMEON BLOOD BANK LAB ORDER JESSIE Performing Organization Address City/[facility]/ZIP Co de Phone Number [facility] [place] [address] * ABO/Rh Typing (10/31/2020 3:00 PM EST) ABORH Type O Pos [facility] Blood specimen (specimen) 10/31/2020 3:00 PM EST 10/31/2020 3:47 PM EST Narrative Resulting Agency Comment Spec In Lab Bucky SIMEON BLOOD BANK LAB ORDER JESSIE Performing Organization Address [facility] Co de Phone Number [facility] [place] [address] * (ABNORMAL) Differential, Automated (10/31/2020 3:00 PM EST) Neutrophil % 73.3 % [facility] Neutrophil Absolute 6.61(H) 1.70 - 6.10 x10(3)/mc L [facility] Lymph % 18.1 % [facility] Lymphocytes Abs 1.6 0.9 - 3.2 x10(3)/mc L [facility] Monocyte % 7.0 % [facility] Monocyte Abs 0.6 0.3 - 0.9 x10(3)/mc L [facility] Eos % 0.9 % [facility] Eosinophils Abs 0.1 0.0 - 0.4 x10(3)/mc L [facility] Basophil % 0.4 % [facility] Baso Absolute 0.0 0.0 - 0.1 x10(3)/mc L [facility] Immature Gran % 0.30 % [facility] Comment: Immature granulocytes(IG's)percentage and absolute count will include metamyelocytes, myelocytes, and promyelocytes. Blood smears from CBCs yielding IG's will be scanned manually for concordance. If this scan disagrees with the automated IG or if promyelocytes are noted, a manual differential will be performed. Immature Gran Absolute 0.03 0.00 - 0.04 x10(3)/mc L [facility] Blood specimen (specimen) 10/31/2020 3:00 PM EST 10/31/2020 3:08 PM EST Narrative Resulting Agency Comment Spec In Lab Bucky SIMEON HEMATOLOGY ORDERABLE S [facility] [place] [address] * (ABNORMAL) Hemogram (10/31/2020 3:00 PM EST) White Blood Cell 9.0 4.0 - 9.5 x10(3)/mc L [facility] Red Blood Cell 6.20(H) 4.58 - 5.54 x10(6)/mc L [facility] Hemoglobin 18.6(H) 13.7 - 16.5 gm/dL [facility] Hematocrit 58.3(H) 40.5 - 48.5 % [facility] Mean Cell Volume 94.0(H) 82.9 - 93.1 fL [facility] Mean Cell Hemoglobin 30.0 27.5 - 32.1 pg [facility] Mean Cell Hemoglobin Concentration 31.9(L) 32.0 - 35.7 gm/dL [facility] Platelet 265 145 - 357 x10(3)/mc L [facility] RDW Standard Deviation 55.8(H) 36.0 - 45.0 fL [facility] RDW coefficient of variation 17.2(H) 11.4 - 13.8 % [facility] Mean Platelet Volume 9.1 7.6 - 12.9 fL [facility] NRBC% auto 0.0 % [facility] NRBC Absolute 0.000 0.000 - 0.000 x10(3)/mc L [facility] Blood specimen (specimen) 10/31/2020 3:00 PM EST 10/31/2020 3:08 PM EST Narrative Resulting Agency Comment Spec In Lab Bucky Jj BLANCO HEMATOLOGY ORDERABLE S Performing Organization Address [facility] de Phone Number [facility] [place] [address] * APTT (10/31/2020 3:00 PM EST) Partial Thromboplastin Time Not Perf 25 - 37 [facility] Comment: The PTT is [...] Whitaker HEMATOLOGY ORDERABLE S Performing Organization Address [facility] Co de Phone Number [facility] [place] [address] * Prothrombin Time (10/31/2020 3:00 PM EST) Prothrombin Time Not Perf 9.4 - 12.5 [facility] Comment: hct over 55 Called by: BDB, Read back by: Lolita Valiente, Date/Time:10/31/20 16:04. Corrected from 24.6 sec [HI] on 10/31/20 16:05:57 EST by Napoleon Ramos International Normalization Ratio Not Perf [facility] Comment: An INR <2.0 [...] Lab Champ Whitaker DO HEMATOLOGY ORDERABLE S [facility] [place] [address] * Basic Metabolic Panel (non-fasting) (10/31/2020 3:00 PM EST) Glucose 128 65 - 199 mg/dL [facility] Comment:Diabetes: >=200 mg/d L plus symptoms Blood Urea Nitrogen 18 10 - 20 mg/dL [facility] Creatinine 0.86 0.80 - 1.50 mg/dL [facility] Sodium 142 135 - 145 mmol/L [facility] Potassium 4.1 3.5 - 5.0 mmol/L [facility] Carbon Dioxide 27 22 - 31 mmol/L [facility] Anion Gap 12 5 - 15 mmol/L [facility] Calcium 10.0 8.5 - 10.5 mg/dL [facility] Est Glomerular Filtration Rate 86 >=60 mL/min/1. 73 m?? [facility] Comment: This patient? s [...] Whitaker DO CHEMISTRY ORDERABLES Performing Organization Address City/State/[facility] Co de Phone Number [facility] [place] [address] documented in this encounter Visit Diagnoses Diagnosis [...] SCHEDULED, First dose (after last modification) on [facility] 11/02/20 at 0800, Until Discontinued, CORRECTION BOLUS [...] Until Discontinued, Routine 2012 (Given - Provider: Vlima Archer RN) 836 (Given - Provider: Sho [...] - Reason: Transfer to a Procedural area)185 ([facility] Unhold - Provider: Admin Adt)2099 (Not Given [...] JACOB)0809 (Given - Provider: Nick Chaves RN)1329 ([facility] Hold - Provider: Admin Adt - Reason: Transfer to a Procedural area)185 ([facility] Unhold - Provider: Admin Adt)2012 (Given - [...] 0810 (Given - Provider: Nick Chaves RN)1329 ([facility] Hold - Provider: Admin Adt - Reason: Transfer to a Procedural area)185 ([facility] Unhold - Provider: Admin Adt)2099 (Not Given - Provider: Vilma Archer RN - Reason: Patient/family refused) 0837 (Given - Provider: Sho Castro, JACOB)2013 (Given - Provider: Jewell Gonzalez, JACOB) 0917 [...] - Reason: Transfer to a Procedural area)185 ([facility] Unhold - Provider: Admin Adt) ondansetron (pf) [...] pain not relieved, call provider., Routine 1329 ([facility] Hold - Provider: Admin Adt - Reason: Transfer to a Procedural area)1850 ([facility] Unhold - Provider: Admin Adt) oxyCODONE (Roxicodone) tablet 5 mg(Linked Group 3) 5 mg, Oral, EVERY 4 HOURS PRN, Starting on Fri10/31/20 at 2023, Until Fri11/03/20 at 1721, Pain, mild pain (1-3), For mild pain (1-3). Do not exceed 15 mg in 4 hours. If pain not relieved, call provider, Routine 1329 ([facility] Hold - Provider: Admin Adt - Reason: Transfer to a Procedural area)185 ([facility] Unhold - Provider: Admin Adt) povidone-iodine 5 [...] provided on this medication record., Routine 1329 ([facility] Hold - Provider: Admin Adt - Reason: Transfer to a Procedural area)1850 ([facility] Unhold - Provider: Admin Adt) thrombin (bovine) [...] Routine documented in this encounter Care Teams Waste Specialist Relationship Specialty Start Date End Date Nick Nettles MD [address] [place] [address] PCP - General Internal Medicine 10/05/19 documented as of this encounter
--- OUTSIDE RECORDS SUMMARY | 2024-08-20 10:51 | XMS_ITS | Encounter Summary ---
Author Organization [facility] Address [facility] [place] [address] Care Team Providers Care Stencil Sprayer Name Role Phone Nick Nettles MD Primary Care Provider [phone] Reason for Visit * Reason Comments Right [...] Expiration Date Visits Re quested Visits Authorized [id number] 1 1 Encounter Details Date Type Department Care Team (Late st Contact Info) Description 11/01/2020 12:46 PM EST - 11/01/2020 3:10 PM EST [place] [id number] Geovani Strange MD [facility] [place] [address] @TOTAL HIP REVISION ARTHROPLASTY, COMPLETE (WRVU ) [...] this encounter Discharge Summaries * Blank Bowers, DIRECTOR OF PLACEMENT - 11/01/2020 4:16 PM EST Images from the original note were not included. Discharge Summary Patient Name: Jaime Crouch Patient Age: 75 y.o. Language: Indian Race: White Ethnicity: Not nor Admit date: [...] Center 11/08/2020 8:30 AM [address] [facility] VAS LAB JOHNNA BROOKS 11/08/2020 9:00 AM Delroy More MD [facility] V SURG [facility] 11/16/2020 9:[address] [facility] DX ROOM [address] [facility] Rad 11/16/2020 10:30 AM Jeffrey Cuevas MD [facility] ORTH 3C [facility] Inpatient Provider Contact Information: Geovani Strange MD Orthopedics: [phone] After hours and weekends, call [facility] Resistor Testing Machine Operator, , and have the Orthopedic [...] Fellow * Delroy Brooks PA - Physician Owner [employer] Procedure(s): LEFT TOTAL HIP REVISION ARTHROPLASTY, COMPLETE [...] was contacted initially by Scott Dominguez in [facility] who assumed care of this patient [...] MD Internal Medicine, PGY3 FORTUNATO Pager # [phone] Attestation signed by Amber Castro MD at [...] primarily been managed by wound care at [facility]. The patient has never seen a vascular [...] patient should continue seeing wound care at [facility] once discharged, as he is. Elvira Daigle [...] below. Electronically signed by: Slim Wright MD, [facility] ([phone]), at 11/01/2020 6:49 PM XR Pelvis (Generic) [...] below. Electronically signed by: Seymour Galaviz MD, [facility] ([phone]), at 10/31/2020 6:56 PM SCAN DOC: TELEMETRY [...] below. Electronically signed by: Seymour Galaviz MD, [facility] ([phone]), at 10/31/2020 6:56 PM XRay Chest One [...] below. Electronically signed by: Seymour Galaviz MD, [facility] ([phone]), at 10/31/2020 7:19 PM Pending Studies and Lab Data at Discharge: Order Name Source Comment Collection Info Order Time SPECIMEN TO PATHOLOGY Scar and synovium rule out infection OR 12 [id number] Left Femoral Head component fracture scar and synovium rule out infection excision 11/01/2020 2:35 PM Time specimen removed from patient: 2:34 PM Number of tissue samples (in container) 1 Transfusions: No Discharge Conditions/Prognosis: Stable, awake, and alert. Mobilizing as noted above, pain controlled on oral medications. Discharge to: Rehab [facility] [address] [place], [place] [id number] Updated Allergies/ADRs: Allergies Allergen Reactions ??? Metformin [...] to patient's PCP, Dr. Nick Nettles - [phone]. Office phone: [phone]. 2. Activity: Enhanced: Full weight bearing as [...] patient should continue seeing wound care at [facility] once discharged. 11. Unna boot LLE - [...] INR drawn, please call Dr. Nettles's office ([phone]) for further dose instructions. Warfarin (Coumadin??) should [...] not take or discontinue any prescription or xxkm-rxn-epdjxud medications without asking your doctor or pharmacist [...] bowel movement. You can also take an zbcd-tev-wxdcboq medication, Miralax if needed to combat constipation. [...] the incision provided there is no drainage.. Sutures/[place]: 1. Staple/suture removal 3 weeks after surgery (approximately 11/21/2020- probably at your follow-upOrtho appt on 11/16/2020). Prevena Incisional VAC: 1. You have an incisional VAC (vacuum or negative pressure dressing) on your left hip. This is a one-time use system that will work for 7 days after application. 2. The dressing will stay in place for 7 days. When the small sun'aq of lights on the front of the [...] as much as possible. Call your doctor ([phone]) if you develop: 1. Fever greater than 100.5 2. Severe nausea or vomiting 3. Increasing pain that is not controlled by pain medications 4. Increasing redness, swelling, or drainage from incisions 5. Change in sensation FOLLOW-UP APPOINTMENTS: 1. You will have follow-up appointments at [facility] as indicated below in Future Appointment and Orders. 2. You will need to have x-rays prior to your follow-up appointment on 11/16/2020. Please come to Radiology, desk 3T, 1 hour BEFORE that appointment for these x-rays. Future Appointments Date Time Provider Department Center 11/08/2020 8:30 AM [address] [facility] VAS LAB JOHNNA BROOKS 11/08/2020 9:00 AM Delroy More MD [facility] V SURG [facility] 11/16/2020 9:[address] [facility] DX ROOM [address] [facility] Rad 11/16/2020 10:30 AM Jeffrey Cuevas MD [facility] ORTH [address] [place] [address] If you have questions or concerns: Friday [...] AM Yaneth Sage RVT Vascular Lab at [facility] Arrive at: Bilingual Sales Consultant Area 11/08/2020 9:00 AM Delroy More MD Vascular Surgery at [facility] Arrive at: Bilingual Sales Consultant Area 3V [phone] [facility] 11/16/2020 9:30 AM [facility] ROOM 3 XRay at [facility] Arrive at: Bilingual Sales Consultant Area 3T [phone] Please go to Bilingual Sales Consultant Area 3T ([place] Location). 11/16/2020 10:30 AM Jeffrey Cuevas MD Orthopaedics at [facility] Arrive at: Bilingual Sales Consultant Area 3C [phone] Primary Care Provider: Nick Nettles MD [phone] Discharge References/Attachments None documented in this encounter [...] dressing * Patient Instructions* Robinson Blank P, DIRECTOR OF PLACEMENT - 11/01/2020 4:18 PM EST Activity: 1. [...] INR drawn, please call Dr. Nettles's office ([phone]) for further dose instructions. Warfarin (Coumadin??) should [...] not take or discontinue any prescription or dfcd-zjc-iwqbenp medications without asking your doctor or pharmacist [...] bowel movement. You can also take an ngtf-wbb-tihkzvv medication, Miralax if needed to combat constipation. [...] place for 7 days. When the small sun'aq of lights on the front of the [...] as much as possible. Call your doctor ([phone]) if you develop: 1. Fever greater than 100.5 2. Severe nausea or vomiting 3. Increasing pain that is not controlled by pain medications 4. Increasing redness, swelling, or drainage from incisions 5. Change in sensation FOLLOW-UP APPOINTMENTS: 1. You will have follow-up appointments at [facility] as indicated below in Future Appointment and Orders. 2. You will need to have x-rays prior to your follow-up appointment on 11/16/2020. Please come to Radiology, desk 3T, 1 hour BEFORE that appointment for these x-rays. Future Appointments Date Time Provider Department Center 11/08/2020 8:30 AM [address] Sage [address] [facility] VAS LAB JOHNNA BROOKS 11/08/2020 9:00 AM Delroy More MD [facility] V SURG [facility] 11/16/2020 9:[address] [facility] DX ROOM [address] [facility] Rad 11/16/2020 10:30 AM Jeffrey Cuevas MD [facility] ORTH 3C [facility] If you have questions or concerns: Friday [...] EST Patient accepted SWING bed offer at: [facility] Acute Rehabilitation and Sub-Acute (Swing) Rehab Levels of Care [address] [place] [id number] Transportation: ambulance Ambulance transportation is medically necessary at discharge related to 2xassist for transfers, moderate to severe pain on movement, inability to maintain erect seated position/ pain on movement, medical records assistant required, morbid obesity. I have discussed Medicare/Private Insurance reimbursement guidelines for ambulance transport. Patient verbalize understanding of their potential financial obligation and agree with ambulance transport. ER * Johnna Arroyo RN - 11/03/2020 10:46 AM EST Office of Care Management/Air Defence Officer Patient Name: Jaime Crouch : 1945 Patient has been offered a swing bed at [facility] for today. [facility] arranged for a 3pm transport. Ambulance will need: Medicare ambulance form completed and signed (MD or Cage Loader RN/MACHINE SAND MIXER) Copy of patient demographics [place] Out of Hospital DNR/DNI order, if active MD to MD report to Dr. Carter at [phone]. Please call Nursing Report to [phone] ask for guest service team leader. Info to accompany patient: Copies of Medication Administration Records and IV sheets for past 10 days. Plan: Air Defence Officer will be available to the patient and Cage Loader-RN and/or Social Workerfor further assistance. Patient will be discharged to: [facility] JOHNNA ARROYO RN, Air Defence Officer * Jeffrey Cuevas MD - 11/03/2020 6:49 [...] Center 11/08/2020 8:30 AM [address] [facility] VAS LAB JOHNNA BROOKS 11/08/2020 9:00 AM Delroy More MD [facility] V SURG [facility] 11/16/2020 9:[address] [facility] DX ROOM [address] [facility] Rad 11/16/2020 10:30 AM Jeffrey Cuevas MD [facility] ORTH 3C [facility] * Jewell Gonzalez RN - 11/03/2020 2:12 [...] He had his home unit setup at [facility] upon initial assessment this evening, humidity chamber [...] discharge planning needs. I have provided the [facility], Office of Care Management letter from the [employer] pertaining to rehab referrals. I have also provided a letter describing our affiliations within the [facility] and educatedthem about their right to choose where referrals are. ?? Provided patient with [facility] Star Quality Rating for SNF, LTAC [...] The patient have requested referrals to: 1. [facility] Acute Rehabilitation and Sub-Acute (Swing) Rehab Levels of Care [address] [place] [id number] ?? 2. [facility] (Swing) ([facility]) [address] [place] [address] ?? PHONE: [phone] FAX: [phone] ?? Expected date of discharge: 11/03-11/04 Note routed to Air Defence Officer who will communicate referrals to facilities and [...] ??? ASCVD (arteriosclerotic cardiovascular disease) 1993 first [place] 1992, stent to LAD in 2006 ??? [...] by Nick Broussard MD at [facility] ENDOSCOPY ??? PRO ERCP,DIAGNOSTIC N/A 08/30/2015 ERCP performed by Nick Broussard MD at [facility] MAIN OR ??? PRO ERCP,DIAGNOSTIC N/A 08/30/2015 ERCP performed by Nick Broussard MD at [facility] ENDOSCOPY ??? PRO LAP, CHOLECYSTECTOMY N/A 09/01/2015 LAPAROSCOPIC CHOLECYSTECTOMY performed by Esha Moon MD at [facility] MAIN OR ??? TOTAL HIP ARTHROPLASTY Bilateral [...] of AE, increased time. assist w/ shoes, picture engraver x 2/wk for dressing changes on feet. [...] understands that he will benefit from ongoing in-exceptional children's teacher PT/OT to progress toward the following goals [...] eval, home management). MARYELLEN RAHMAN, PT Pager: [phone] Physical Therapy Inpatient Rehabilitation Department * Sherman [...] ??? ASCVD (arteriosclerotic cardiovascular disease) 1993 first [place] 1992, stent to LAD in 2006 ??? [...] by Nick Broussard MD at [facility] ENDOSCOPY ??? PRO ERCP,DIAGNOSTIC N/A 08/30/2015 ERCP performed by Nick Broussard MD at [facility] MAIN OR ??? PRO ERCP,DIAGNOSTIC N/A 08/30/2015 ERCP performed by Nick Broussard MD at [facility] ENDOSCOPY ??? PRO LAP, CHOLECYSTECTOMY N/A 09/01/2015 LAPAROSCOPIC CHOLECYSTECTOMY performed by Esha Moon MD at [facility] MAIN OR ??? TOTAL HIP ARTHROPLASTY Bilateral [...] of AE, increased time. assist w/ shoes, picture engraver x 2/wk for dressing changes on feet. Ptreports independence w/ grooming, toileting, and bathing. Precautions/Special Considerations: abdominal binder at all times, Provena incisional vac at continuous suction to L hip, WBAT LLE, fall, enhanced hip precautions, Subjective: I use a back senior data developer (conveyor console operator) and it takes me a while. when [...] teeth, washed face w/ set up from FUR REMODELER. Dressing: Pt TotalA for donning of socks. Pt issued and educated on conveyor console operator/modified technique, will review in future sessions. Pt [...] and measurable assessment of functional outcome. Pager: [phone] Sherman Caldera OT 11/02/2020 Occupational Therapy Rehabilitation [...] Center 11/08/2020 8:30 AM [address] Sage [address] [facility] VAS LAB JOHNNA BROOKS 11/08/2020 9:00 AM Delroy More MD [facility] V SURG [facility] 11/16/2020 9:[address] [facility] DX ROOM [address] [facility] Rad 11/16/2020 10:30 AM Jeffrey Cuevas MD [facility] ORTH 3C [facility] Associated attestation - Geovani Strange MD - [...] Time Provider Department Center 11/02/2020 8:[address] [facility] DX ROOM [address] [facility] Rad 11/02/2020 9:05 AM LAB, THREE L Lab 3L JOHNNA LANZACHCO 11/02/2020 10:00 AM Jeffrey Cuevas MD [facility] ORTH 3C [facility] 11/08/2020 8:30 AM [address] S[address] [facility] VAS LAB JOHNNA POOLCHCO 11/08/2020 9:00 AM Delroy More MD [facility] V SURG [facility] * Amanda Perez RN - 11/01/2020 7:25 [...] Jane Kern - 11/01/2020 1:51 PM EST Computer Networking Instructor Encounter Note Patient Name: Jaime Crouch : [id number] MR#: [id number] Admit Date: 10/31/2020 4:11 PM Hospital Day 1 day Narrative: Responded to a choir accompanist consult. Mr Crouch was awake and awaiting transport to his procedure whenI arrived. Assessment: Mr. Crouch had asked to see Fr. Ford because during a prior hospitalization they had enjoyed a conversation., When I explained Fr. Ford was away he readily engaged discussing his Jewish misty and hisadmiration for the work of [...] up post operatively. Magui No, PT Pager #[phone] * Nick Chaves RN - 11/01/2020 10:43 AM EST Patient reports no chest pain, SOB, numbness or tingling, and no pain. Patient has an IV in left arm capped. Patient is dim on RA, HR irregular with hx of a- fib. Last BM was MACHINIST 2ND SHIFT, voiding in urinal and up to toilet. [...] SpO2 96 % Sherman Caldera OT Pager: [phone] * Jeffrey Cuevas MD - 11/01/2020 6:48 [...] Time Provider Department Center 11/02/2020 8:[address] [facility] DX ROOM [address] [facility] Rad 11/02/2020 9:05 AM LAB[facility] 11/02/2020 10:00 AM Jeffrey Cuevas MD [facility] ORTH 3C [facility] 11/08/2020 8:30 AM [address] Sage [address] [facility] VAS LAB JOHNNA ROBLEDOWV 11/08/2020 9:00 AM Delroy More MD [facility] V SURG [facility] * Slim Kaiser RCP - 10/31/2020 9:01 [...] of the femoral head. Referred down to [facility] for further treatment. Patient reports he doesn't [...] Time Provider Department Center 11/02/2020 8:[address] [facility] DX ROOM [address] [facility] Rad 11/02/2020 9:05 AM LAB, THREE L Lab 3L JOHNNA ROBLEDOCO 11/02/2020 10:00 AM Jeffrey Cuevas MD [facility] ORTH 3C [facility] 11/08/2020 8:30 AM [address] Sage [address] [facility] VAS LAB JOHNNA LANZACHCO 11/08/2020 9:00 AM Delroy More MD [facility] V SURG [facility] Associated attestation - Geovani Strange MD - [...] was actually contacted by Dr. Dominguez in [facility] via email about this patient earlier [...] was instructed to come to ED at [facility] for likely admission to ortho for repair. [...] RNA Not Detected Not Detected SARS-CoV-2 Source LOAN SUPERVISOR Swab EKG 12 Lead Result Value Ref Range Ventricular rate 80 BPM Atrial Rate 80 BPM QRS Duration 114 ms Q-T Interval 394 ms QTC Calculated (Bezet) 454 ms Calculated R Calhoun -33 degrees Calculated T Calh[place] 4 degrees INTERPRETATION Atrial fibrillation with premature [...] below. Electronically signed by: Seymour Galaviz MD, [facility] ([phone]), at 10/31/2020 6:56 PM XR Pelvis (Generic) [...] to orthopedic surgery. Amanda Hansen PA 10/31/20 6401 * Jeanie Shannon RN - 10/31/2020 6:51 [...] [x] None Exposure [] Recent travel outside [place] [] Contact with known or suspected positive [...] Please contact Mary Lozano RN on pager [phone] or the wound care team at [phone] or pager [phone] with skin and wound care concerns or questions. * Consult Note - Benjamín Myles III, MD - 11/03/2020 7:31 AM EST Internal Medicine Initial Consult Note Admit date: Hospital day: Service: Primary Attending Consult Attending 10/31/[address] [place] [address] Medicine MD Deana Mojica MD Reason for [...] MD Internal Medicine, PGY3 FORTUNATO Pager # [phone] Associated attestation - Amber Castro MD - [...] history, admitting diagnosis and active problem list. DIRECTOR OF PLACEMENT at bedside assisting with patient care. Patient reports he has wound care for BLEs at the [facility] wound care clinic which provides podiatry care and Unnas boots to LLE, medigrip to RLE; [facility] wound care officedoes not provide care to his pannus. Patient reports pannus is larger at left than right; he stateshe uses bagbalm at [facility] for care. Vascular Surgeon in to see [...] and intact from knee down. LLE is couohqw-nmqnrb-guoud, mepilex border dressing at lateral lower leg [...] HOB higher than 30 degrees) Use a [employer] chair cushion beneath patient at all times [...] Please contact Sara Montoya RN on pager [phone] or the wound care team at [phone] or pager [phone] skin and wound care concerns or questions. [...] procedure. He sees wound care regularly at [facility]. The patient had ABIs performed at [facility] in 2016 which were normal with triphasic waveforms bilaterally. The patient was referred to see vascular surgery as an outpatient for these non healing wounds and has an appointment scheduled with Dr. More 11/08 with repeat ABIs. Vascular surgery was asked to see the patient while he is inpatient as it is difficult for him to get to [facility] given his limited mobility postoperatively and struggles with incontinence. Review of Systems: A 10 point review of systems was conducted and is negative except as above Past Medical History: Past Medical History: Diagnosis Date ??? ASCVD (arteriosclerotic cardiovascular disease) 1993 first [place] 1992, stent to LAD in 2006 ??? [...] by Nick Broussard MD at [facility] ENDOSCOPY ??? PRO ERCP,DIAGNOSTIC N/A 08/30/2015 ERCP performed by Nick Broussard MD at [facility] MAIN OR ??? PRO ERCP,DIAGNOSTIC N/A 08/30/2015 ERCP performed by Nick Broussard MD at [facility] ENDOSCOPY ??? PRO LAP, CHOLECYSTECTOMY N/A 09/01/2015 LAPAROSCOPIC CHOLECYSTECTOMY performed by Esha Moon MD at [facility] MAIN OR ??? TOTAL HIP ARTHROPLASTY Bilateral [...] primarily been managed by wound care at [facility]. The patient has never seen a vascular [...] patient should continue seeing wound care at [facility] once discharged, as he is. Elvira Daigle MD Vascular Surgery Consult service will continue to follow patient. Please page [phone] (day) or [phone] (night) with questions/concerns x Recommendations are above, [...] from the original note were not included. [facility] Operative Note Patient Name: Jaime Crouch : [id number] MR#: [id number] Case Date: 11/01/2020 Surgeon: Surgeon(s) and Role: * Geovani Strange MD - Primary * Jeffrey Cuevas MD - Fellow * Delroy Brooks PA - Physician Owner [employer] Preoperative diagnosis: Left Femoral Head component fracture [...] and synovium rule out infection OR 12 [id number] Left Femoral Head component fracture scar and [...] was contacted initially by Scott Dominguez in [facility] who assumed care of this patient [...] Femoral Stem: Retained Optifix Liner: Depuy Size 25p20ps biolox Femoral Head: 36mm +4 Oxinium Intraoperative [...] This case was performed with a Physician Owner [employer] who was critical for patient positioning and [...] Implant Name Type Inv. Item Serial No. Electro Mechanical Designer Lot No. LRB No. Used Action GRAFT BONE FILLER 10ML CALCIUM SULFATE POWDER INJECTABLE ([id number]) - [id number] IMPLANTS GRAFT BONEFILLER 10ML CALCIUM SULFATE POWDER INJECTABLE ([id number]) [employer] - BI[employer]OM[employer]I [id number] 1 Implanted SHELL ACET HIP 62MM POR CTD MULTI HOLE TI PINNACLE GRIPTION ([id number]) (AUTOREQ) - [id number] IMPLANTS SHELL ACET HIP 62MM POR CTD MULTI HOLE TI PINNACLE GRIPTION ([id number]) (AutoReq) [employer] RAYSA BHARAT [id number] Left 1 Implanted SCREW HIP ACET 6.5X20MM FT CANC HEX DRV TI PINNACLE ([id number]) (AutoReq) - [id number] IMPLANTS SCREWHIP ACET 6.5X20MM FT CANC HEX DRV TI PINNACLE ([id number]) (AutoReq) [employer] BHARAT [id number] Left 1 Implanted LINER ACET HIP [id number] 0D STND CERAMIC CERAMAX ([id number]) (AUTOREQ) - [id number] IMPLANTS LINER ACETHIP [id number] 0D STND CERAMIC CERAMAX ([id number]) (AutoReq) [employer] RAYSA BHARAT [id number] Left 1 Implanted SCREW HIP ACET 6.5X25MM FT CANC HEX DRV TI PINNACLE ([id number]) (AUTOREQ) - [id number] IMPLANTS SCREWHIP ACET 6.5X25MM FT CANC HEX DRV TI PINNACLE ([id number]) (AutoReq) RAYSA [employer] [facility] - RAYSA BHARAT [id number] Left 1 Implanted DEPUY, PINNACLE, CANCELLOUS BONE SCREW, 6.2XDJ84MM [id number] Left 1 Implanted CAUSEY & NEPHEW, OXINIUM, 36MM O.D., +4, 14/16 TAPER FEMORAL HEAD [id number] Left 1 Implanted * Plan of Care [...] is able to help out with some production welder. He denies cough, hemoptysis, or productive sputum. [...] ago. His PCP is Delroy Nettles, in [place], [place]. Past Medical History/Problem List Patient Active [...] ??? ASCVD (arteriosclerotic cardiovascular disease) 1993 first [place] 1992, stent to LAD in 2006 ??? [...] Chest pain. Reported on 02/17/2017 Warfarin - Xzw-Avs-Ddnr-Friday - 4mg; 5mg Furosemide 40mg b.i.d - [...] by Nick Broussard MD at [facility] ENDOSCOPY ??? PRO ERCP,DIAGNOSTIC N/A 08/30/2015 ERCP performed by Nick Broussard MD at [facility] MAIN OR ??? PRO ERCP,DIAGNOSTIC N/A 08/30/2015 ERCP performed by Nick Broussard MD at [facility] ENDOSCOPY ??? PRO LAP, CHOLECYSTECTOMY N/A 09/01/2015 LAPAROSCOPIC CHOLECYSTECTOMY performed by Esha Moon MD at [facility] MAIN OR ??? TOTAL HIP ARTHROPLASTY Bilateral Social History: Tobacco: Quit smoking 50 years ago, was a 1 pack per day smoker. Etoh: 1 drink every 2 weeks. Illicits: No illicit drug use. Living Situation: Lives at home with his , Leah of 38 years. 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 Vitals: Last value Range last 24 [...] MD Internal Medicine, PGY3 FORTUNATO Pager # [phone] Associated attestation - Deana Dove MD - [...] care. Plan as below. Deana Dove MD [facility] Medicine 11/01/2020 * Initial Assessments - [...] ??? ASCVD (arteriosclerotic cardiovascular disease) 1992 first [place] 1992, stent to LAD in 2006 ??? [...] bilateral lower extremity. Left worse than right. [place] wound clinic: 3x/week. Was the size of a 45 record, to quarter. Health/Prescription Coverage: Primary Insurance: MEDICARE Secondary Insurance: [employer] [facility] [place] Prescription Coverage: Yes Preferred Pharmacy: [facility] Other: [facility]: Cheaper for most medications. Primary Care Provider: Nick Nettles MD [phone] Patient/Caregiver Goals of Treatment: Home Potential Needs for Transition of Care: Rehab/SNF: mentioned CATRACH[facility] Tapia Levels of rehab reviewed. Acute/SNF Home Health: [facility] current DME: MINDY boot, cane, FWW borrowed. Dialysis: NA Community Resources: [facility] Transportation: , Leah Other: Pt has comoputere Anticipated Barriers to Discharge/Special Considerations:NONE Assessment: Pt requires acute level of care for management of Left Hip Rx. Plan: Admit to Ortho OR 2/4 Home with VN PT OT COMMUNICATIONS ASSISTANT, is preference. A member of the Care Management team will continue to monitor progress, follow for continuity of care and assist with transition of care planning. DOROTHEA WALKER RN Pager: # [phone] documented in this encounter Plan of Treatment [...] Head component fracture Revise Total Hip Replacement (40383) 11/01/2020 1:29 PM EST Left Femoral Head [...] 6:5 8 PM EST RAPID COVID-19 PCR ([facility]/APD/NLH) STAT 10/31/2020 6:52 PM EST HC PARTIAL [...] OF CARE TEST ORDERABLES Performing Organization Address City/[facility]/ZIP Co de Phone Number [facility] [place] [address] * POCT Glucose (11/03/2020 7:35 AM EST) Glucose, POC 142 65 - 199 mg/dL [facility] Comment: Supplemental ranges: <140 mg/dL before meals <180 mg/dL all other times of the day Blood specimen (specimen) 11/03/2020 7:35 AM EST 11/03/2020 7:35 AM EST Geovani Strange MD POINT OF CARE TEST ORDERABLES Performing Organization Address [facility] Co de Phone Number [facility] [place] [address] * POCT Glucose (11/03/2020 3:39 AM EST) Glucose, POC 170 65 - 199 mg/dL [facility] Comment: Supplemental ranges: <140 mg/dL before meals <180 mg/dL all other times of the day Blood specimen (specimen) 11/03/2020 3:39 AM EST 11/03/2020 3:39 AM EST Geovani Strange MD POINT OF CARE TEST ORDERABLES Performing Organization Address City/[facility] Co de Phone Number [facility] [place] [address] * (ABNORMAL) Differential, Automated (11/03/2020 3:17 AM EST) Neutrophil % 74.6 % [facility] Neutrophil Absolute 8.42(H) 1.70 - 6.10 x10(3)/[facility] LABORATORY Lymph % 10.7 % [facility] Lymphocytes Abs 1.2 0.9 - 3.2 x10(3)/[facility] LABORATORY Monocyte % 12.5 % [facility] Monocyte Abs 1.4(H) 0.3 - 0.9 x10(3)/[facility] LABORATORY Eos % 1.2 % [facility] Eosinophils Abs 0.1 0.0 - 0.4 x10(3)/[facility] LABOR[facility]ORY Basophil % 0.4 % [facility] Baso Absolute 0.0 0.0 - 0.1 x10(3)/[facility] LABOR[facility]ORY Immature Gran % 0.60 % [facility] Comment: Immature granulocytes(IG's)percentage and absolute count will include metamyelocytes, myelocytes, and promyelocytes. Blood smears from CBCs yielding IG's will be scanned manually for concordance. If this scan disagrees with the automated IG or if promyelocytes are noted, a manual differential will be performed. Immature Gran Absolute 0.07(H) 0.00 - 0.04 x10(3)/[facility] LABORATORY Blood specimen (specimen) 11/03/2020 3:17 AM EST 11/03/2020 3:50 AM EST Narrative Resulting Agency Comment Spec In Lab Jeffrey Cuevas MD HEMATOLOGY ORDERABLE S [facility] [place] [address] * (ABNORMAL) Hemogram (11/03/2020 3:17 AM EST) White Blood Cell 11.3(H) 4.0 - 9.5 x10(3)/[facility] LABORATORY Red Blood Cell 4.89 4.58 - [...] Platelet 225 145 - 357 x10(3)/mc L [facility] RDW Standard Deviation 57.3(H) 36.0 - 45.0 fL [facility] RDW coefficient of variation 16.1(H) 11.4 - 13.8 % [facility] Mean Platelet Volume 9.3 7.6 - 12.9 fL [facility] NRBC% auto 0.0 % [facility] NRBC Absolute 0.000 0.000 - 0.000 x10(3)/mc L [facility] Blood specimen (specimen) 11/03/2020 3:17 AM EST 11/03/2020 3:50 AM EST Narrative Resulting Agency Comment Spec In Lab Jeffrey Cuevas MD HEMATOLOGY ORDERABLE S [facility] [place] [address] * (ABNORMAL) Prothrombin Time (11/03/2020 3:17 AM [...] [facility] [place] [address] * (ABNORMAL) Basic Metabolic Panel (non-fasting) (11/03/2020 [...] Cuevas MD CHEMISTRY ORDERABLES Performing Organization Address City/[facility]/ZIP Co de Phone Number [facility] [place] [address] * POCT Glucose (11/03/2020 12:06 AM EST) Glucose, POC 173 65 - 199 mg/dL [facility] Comment: Supplemental ranges: <140 mg/dL before meals <180 mg/dL all other times of the day Blood specimen (specimen) 11/03/2020 12:06 AM EST 11/03/2020 12:06 AM EST Geovani Strange MD POINT OF CARE TEST ORDERABLES Performing Organization Address [facility] Co de Phone Number [facility] [place] [address] * (ABNORMAL) POCT Glucose (11/02/2020 7:26 PM EST) Glucose, POC 204(H) 65 - 199 mg/dL [facility] Comment: Supplemental ranges: <140 mg/dL before meals <180 mg/dL all other times of the day Blood specimen (specimen) 11/02/2020 7:26 PM EST 11/02/2020 7:26 PM EST Geovani Strange MD POINT OF CARE TEST ORDERABLES Performing Organization Address City/[facility] Co de Phone Number [facility] [place] [address] * POCT Glucose (11/02/2020 4:31 PM EST) Glucose, POC 190 65 - 199 mg/dL [facility] Comment: Supplemental ranges: <140 mg/dL before meals <180 mg/dL all other times of the day Blood specimen (specimen) 11/02/2020 4:31 PM EST 11/02/2020 4:31 PM EST Geovani Strange MD POINT OF CARE TEST ORDERABLES Performing Organization Address City/[facility]/ZIP Co de Phone Number [facility] [place] [address] * POCT Glucose (11/02/2020 12:21 PM EST) [facility] Signature Glucose, POC 186 65 - 199 mg/dL [facility] Comment: Supplemental ranges: <140 mg/dL before meals <180 mg/dL all other times of the day Blood specimen (specimen) 11/02/2020 12:21 PM EST 11/02/2020 12:21 PM EST Geovani Strange MD POINT OF CARE TEST ORDERABLES Performing Organization Address [facility] Co de Phone Number [facility] [place] [address] * POCT Glucose (11/02/2020 8:04 AM EST) [facility] Signature Glucose, POC 125 65 - 199 mg/dL [facility] Comment: Supplemental ranges: <140 mg/dL before meals <180 mg/dL all other times of the day Blood specimen (specimen) 11/02/2020 8:04 AM EST 11/02/2020 8:04 AM EST Geovani Strange MD POINT OF CARE TEST ORDERABLES Performing Organization Address City/[facility] Co de Phone Number [facility] [place] [address] * (ABNORMAL) Differential, Automated (11/02/2020 3:46 AM EST) Neutrophil % 81.0 % [facility] Neutrophil Absolute 10.16(H) 1.70 - 6.10 x10(3)/[facility] LABORATORY Lymph % 9.6 % [facility] Lymphocytes Abs 1.2 0.9 - 3.2 x10(3)/[facility] LABORATORY Monocyte % 8.6 % [facility] Monocyte Abs 1.1(H) 0.3 - 0.9 x10(3)/[facility] LAB[facility] Eos % 0.1 % [facility] Eosinophils Abs 0.0 0.0 - 0.4 x10(3)/[facility] Basophil % 0.3 % [facility] Baso Absolute 0.0 0.0 - 0.1 x10(3)/[facility] Immature Gran % 0.40 % [facility] Comment: Immature granulocytes(IG's)percentage and absolute count will include metamyelocytes, myelocytes, and promyelocytes. Blood smears from CBCs yielding IG's will be scanned manually for concordance. If this scan disagrees with the automated IG or if promyelocytes are noted, a manual differential will be performed. Immature Gran Absolute 0.05(H) 0.00 - 0.04 x10(3)/[facility] LAB[facility] Blood specimen (specimen) 11/02/2020 3:46 AM EST 11/02/2020 4:26 AM EST Narrative Resulting Agency Comment Spec In Lab Jeffrey Cuevas MD HEMATOLOGY ORDERABLE S [facility] [place] [address] * (ABNORMAL) Hemogram (11/02/2020 3:46 AM EST) Pathologist [facility] White Blood Cell 12.5(H) 4.0 - 9.5 x10(3)/[facility] LABORAT[facility] Red Blood Cell 5.04 4.58 - [...] Platelet 252 145 - 357 x10(3)/mc L [facility] RDW Standard Deviation 58.0(H) 36.0 - 45.0 fL [facility] RDW coefficient of variation 16.3(H) 11.4 - 13.8 % [facility] Mean Platelet Volume 9.1 7.6 - 12.9 fL [facility] NRBC% auto 0.0 % [facility] NRBC Absolute 0.000 0.000 - 0.000 x10(3)/mc L [facility] Blood specimen (specimen) 11/02/2020 3:46 AM EST 11/02/2020 4:26 AM EST Narrative Resulting Agency Comment Spec In Lab Jeffrey Cuevas MD HEMATOLOGY ORDERABLE S Performing Organization Address City/State/[facility] Co de Phone Number [facility] [place] [address] * (ABNORMAL) Prothrombin Time (11/02/2020 3:46 AM [...] [facility] [place] [address] * (ABNORMAL) Basic Metabolic Panel (non-fasting) (11/02/2020 [...] Cuevas MD CHEMISTRY ORDERABLES Performing Organization Address City/[facility] Co de Phone Number [facility] [place] [address] * POCT Glucose (11/01/2020 11:34 PM EST) Glucose, POC 136 65 - 199 mg/dL [facility] Comment: Supplemental ranges: <140 mg/dL before meals <180 mg/dL all other times of the day Blood specimen (specimen) 11/01/2020 11:34 PM EST 11/01/2020 11:34 PM EST Geovani Strange MD POINT OF CARE TEST ORDERABLES Performing Organization Address [facility] Co de Phone Number [facility] [place] [address] * POCT Glucose (11/01/2020 7:04 PM EST) Glucose, POC 121 65 - 199 mg/dL [facility] Comment: Supplemental ranges: <140 mg/dL before meals <180 mg/dL all other times of the day Blood specimen (specimen) 11/01/2020 7:04 PM EST 11/01/2020 7:04 PM EST Geovani Strange MD POINT OF CARE TEST ORDERABLES Performing Organization Address [facility] Co de Phone Number [facility] [place] [address] * XR Pelvis (Generic) (11/01/2020 6:19 PM [...] this report, please contact the number below. eJffrey Cuevas MD IMG DX ORDERABLES * POCT Glucose (11/01/2020 5:25 PM EST) Pathologist [facility] Glucose, POC 106 65 - 199 mg/dL [facility] Comment: Supplemental ranges: <140 mg/dL before meals <180 mg/dL all other times of the day Blood specimen (specimen) 11/01/2020 5:25 PM EST 11/01/2020 5:25 PM EST Geovani Strange MD POINT OF CARE TEST ORDERABLES Performing Organization Address City/State/[facility] Co de Phone Number [facility] [place] [address] * (ABNORMAL) BLOOD GAS 2 ARTERIAL (11/01/2020 2:49 PM EST) [facility] pH, Arterial 7.34(L) 7.35 - 7.45 [facility] [...] [facility] FIO2 Art 52 % [facility] Flow Art 0.6 LPM [facility] PF Ratio Art [address] [facility] Temp Art 36.0 Celsius [facility] Blood specimen (specimen) 11/01/2020 2:49 PM EST 11/01/2020 2:49 PM EST Geovani Strange MD POINT OF CARE TEST ORDERABLES Performing Organization Address City/[facility]/ZIP Co de Phone Number [facility] [place] [address] * Anaerobic Culture (11/01/2020 2:46 PM EST) Anaerobic Culture No anaerobic organisms isolated [facility] Joint specimen (specimen) LEFT HIP REGION STRUCTURE / Unknown 11/01/2020 2:46 PM EST 11/01/2020 4:20 PM EST Comment:METALOSIS Narrative Resulting Agency Comment Spec In Lab Geovani Strange MD MICROBIOLOGY - GENE RAL ORDERABLES Performing Organization Address [facility]/ZIP Co de Phone Number [facility] [place] [address] * Joint Culture (11/01/2020 2:46 PM EST) [...] - GENE RAL ORDERABLES Performing Organization Address [facility] de Phone Number [facility] [place] [address] * Specimen to Pathology (11/01/2020 2:35 PM EST) AP Specimen 11/01/2020 2:35 PM EST 11/01/2020 2:35 PM EST Narrative [facility] - 11/01/2020 2:35 PM EST Specimen requisition ordered. ??Separate Pathology report to follow Geovani Strange MD PATHOLOGY/CYTOLOGY ORDERABLES Performing Organization Address [facility] de Phone Number [facility] [place] [address] * Surgical Pathology Report (11/01/2020 2:34 PM EST) Final Diagnosis [id number] ? Location: [facility]; [facility]; A The signing pathologist has (i) examined [...] Slim Godoy Verified: ??11/06/2020 ?Pathologist Performed at: ??-[facility] Dept. of Pathology, [place], [place] SPECIMEN(S) SUBMITTED A - Scar and synovium CLINICAL INFORMATION Left femoral head component fracture. SPECIMEN PROCESSING A - Labeled/Fixative : Scar and synovium, rule out infection, fresh. Quantity/Size: Fragments, 7 x 5 x 1.5 cm. Tissue Description: Red and black soft tissue with minimal amount of roman bone tissue. Sections/Process ing: Blocks submitted for decalcification: A1-A2. Reporting Consultant sections in 4 cassettes labeled A1-A4. ??MV 11/06/2020 8:44 AM EST [facility] SYNOVIUM BIOPSY SPECIMEN / Unknown 11/01/2020 2:34 PM EST 11/01/2020 2:34 PM EST Geovani Strange MD PATHOLOGY/CYTOLOGY ORDERABLES Performing Organization Address City/[facility]/ZIP Co de Phone Number [facility] [place] [address] * Anaerobic Culture (11/01/2020 2:32 PM EST) Anaerobic Culture No anaerobic organisms isolated [facility] Joint specimen (specimen) LEFT HIP REGION STRUCTURE / Unknown 11/01/2020 2:32 PM EST 11/01/2020 4:21 PM EST Comment:OR 12 Narrative Resulting Agency Comment Spec In Lab Geovani Strange MD MICROBIOLOGY - GENE RAL ORDERABLES Performing Organization Address City/[facility]/ZIP Co de Phone Number [facility] [place] [address] * Joint Culture (11/01/2020 2:32 PM EST) [...] - GENE RAL ORDERABLES Performing Organization Address [facility] Co de Phone Number [facility] [place] [address] * (ABNORMAL) APTT (11/01/2020 11:29 AM EST) [...] ORDERABLE S Performing Organization Address [facility] de Phone Number [facility] [place] [address] * (ABNORMAL) Prothrombin Time (11/01/2020 11:29 AM [...] MD HEMATOLOGY ORDERABLE S Performing Organization Address City/[facility]/ZIP Co de Phone Number [facility] [place] [address] * POCT Glucose (11/01/2020 11:21 AM EST) Glucose, POC 149 65 - 199 mg/dL [facility] Comment: Supplemental ranges: <140 mg/dL before meals <180 mg/dL all other times of the day Blood specimen (specimen) 11/01/2020 11:21 AM EST 11/01/2020 11:21 AM EST Geovani Strange MD POINT OF CARE TEST ORDERABLES Performing Organization Address [facility] Co de Phone Number [facility] [place] [address] * POCT Glucose (11/01/2020 7:29 AM EST) Glucose, POC 150 65 - 199 mg/dL [facility] Comment: Supplemental ranges: <140 mg/dL before meals <180 mg/dL all other times of the day Blood specimen (specimen) 11/01/2020 7:29 AM EST 11/01/2020 7:29 AM EST Geovani Strange MD POINT OF CARE TEST ORDERABLES Performing Organization Address City/[facility] Co de Phone Number [facility] [place] [address] * Differential, Automated (11/01/2020 3:52 AM EST) Neutrophil % 67.1 % [facility] Neutrophil Absolute 5.44 1.70 - 6.10 x10(3)/[facility] LABORATORY Lymph % 19.7 % [facility] Lymphocytes Abs 1.6 0.9 - 3.2 x10(3)/[facility] LABORATORY Monocyte % 9.9 % [facility] Monocyte Abs 0.8 0.3 - 0.9 x10(3)/[facility] LABORATORY Eos % 2.2 % [facility] Eosinophils Abs 0.2 0.0 - 0.4 x10(3)/[facility] LABORATORY Basophil % 0.7 % [facility] Baso Absolute 0.1 0.0 - 0.1 x10(3)/[facility] LABORATORY Immature Gran % 0.40 % [facility] Comment: Immature granulocytes(IG's)percentage and absolute count will include metamyelocytes, myelocytes, and promyelocytes. Blood smears from CBCs yielding IG's will be scanned manually for concordance. If this scan disagrees with the automated IG or if promyelocytes are noted, a manual differential will be performed. Immature Gran Absolute 0.03 0.00 - 0.04 x10(3)/[facility] LABORATORY Blood specimen (specimen) 11/01/2020 3:52 AM EST 11/01/2020 4:13 AM EST Narrative Resulting Agency Comment Spec In Lab Laurent Painting MD HEMATOLOGY ORDERABLE S Performing Organization Address City/State/[facility] Co de Phone Number [facility] [place] [address] * (ABNORMAL) Hemogram (11/01/2020 3:52 AM EST) White Blood Cell 8.1 4.0 - 9.5 x10(3)/ L [facility] NRBC% auto 0.0 % [facility] NRBC Absolute 0.000 0.000 - 0.000 x10(3)/mc L [facility] Blood specimen (specimen) 11/01/2020 3:52 AM EST 11/01/2020 4:13 AM EST Narrative Resulting Agency Comment Spec In Lab Laurent Painting MD HEMATOLOGY ORDERABLE S [facility] [place] [address] * (ABNORMAL) Basic Metabolic Panel (non-fasting) (11/01/2020 [...] Cuevas MD CHEMISTRY ORDERABLES Performing Organization Address [facility] de Phone Number [facility] [place] [address] * (ABNORMAL) Prothrombin Time (11/01/2020 3:52 AM [...] MD HEMATOLOGY ORDERABL ES Performing Organization Address [facility] Co de Phone Number [facility] [place] [address] * (ABNORMAL) Hemoglobin A1c (11/01/2020 3:52 AM [...] Mellitus, Diabetes Care 2013; 36: Suppl. 1, H17-99 Estimated Average Glucose See note mg/dL WHITE [...] into estimated average glucose values. ??Diabetes Care 2008:31(8):7852-7910. Blood specimen (specimen) 11/01/2020 3:52 AM EST 11/01/2020 4:13 AM EST Narrative Resulting Agency Comment Spec In Lab Geovani Strange MD CHEMISTRY ORDERABLE S [facility] [place] [address] * (ABNORMAL) Differential, Automated (10/31/2020 10:52 PM EST) Neutrophil % 70.5 % [facility] Neutrophil Absolute 7.16(H) 1.70 - 6.10 x10(3)/mc L [facility] Lymph % 18.9 % [facility] Lymphocytes Abs 1.9 0.9 - 3.2 x10(3)/ L [facility] Monocyte % 8.2 % [facility] Monocyte Abs 0.8 0.3 - 0.9 x10(3)/ L [facility] Eos % 1.5 % [facility] Eosinophils Abs 0.2 0.0 - 0.4 x10(3)/[facility] LABORATORY Basophil % 0.7 % [facility] [...] MD HEMATOLOGY ORDERABLE S Performing Organization Address City/[facility]/ZIP Co de Phone Number [facility] [place] [address] * (ABNORMAL) Hemogram (10/31/2020 10:52 PM EST) [...] Cell Volume 91.6 82.9 - 93.1 fL [facility] [...] Standard Deviation 53.5(H) 36.0 - 45.0 fL [facility] RDW coefficient of variation 16.1(H) 11.4 - 13.8 % [facility] Mean Platelet Volume 9.0 7.6 - 12.9 fL [facility] NRBC% auto 0.0 % [facility] NRBC Absolute 0.000 0.000 - 0.000 x10(3)/mc L [facility] Blood specimen (specimen) 10/31/2020 10:52 PM EST 10/31/2020 10:58 PM EST Narrative Resulting Agency Comment Spec In Lab Laurent Painting MD HEMATOLOGY ORDERABLE S Performing Organization Address City/[facility]/ZIP Co de Phone Number [facility] [place] [address] * (ABNORMAL) APTT (10/31/2020 10:52 PM EST) [...] MD HEMATOLOGY ORDERABL ES Performing Organization Address [facility] Co de Phone Number [facility] [place] [address] * (ABNORMAL) Prothrombin Time (10/31/2020 10:52 PM [...] MD HEMATOLOGY ORDERABL ES Performing Organization Address [facility] Co de Phone Number [facility] [place] [address] * (ABNORMAL) Phosphorus (10/31/2020 10:52 PM EST) Phosphorus 2.3(L) 2.5 - 4.5 mg/dL [facility] Blood specimen (specimen) 10/31/2020 10:52 PM EST 10/31/2020 10:58 PM EST Narrative Resulting Agency Comment Spec In Lab Geovani Strange MD CHEMISTRY ORDERABLE S Performing Organization Address City/[facility]/ZIP Co de Phone Number [facility] [place] [address] * Magnesium (10/31/2020 10:52 PM EST) Magnesium 0.83 0.69 - 1.07 mmol/L [facility] Blood specimen (specimen) 10/31/2020 10:52 PM EST 10/31/2020 10:58 PM EST Narrative Resulting Agency Comment Spec In Lab Geovani Strange MD CHEMISTRY ORDERABLE S Performing Organization Address [facility] Co de Phone Number [facility] [place] [address] * (ABNORMAL) Basic Metabolic Panel (non-fasting) (10/31/2020 [...] MD CHEMISTRY ORDERABLE S Performing Organization Address City/[facility]/ZIP Co de Phone Number [facility] [place] [address] * EKG 12 Lead (10/31/2020 7:22 PM EST) Ventricular rate 80 BPM MUSE SYSTEM Atrial Rate 80 BPM MUSE SYSTEM QRS Duration 114 ms MUSE SYSTEM Q-T Interval 394 ms MUSE SYSTEM QTC Calculated (Bezet) 454 ms MUSE SYSTEM Calculated R Cal[place] -33 degrees MUSE SYSTEM Calculated T [place] 4 degrees MUSE SYSTEM INTERPRETATION Atrial fibrillation [...] Strange MD ECG ORDERABLES Performing Organization Address City/[facility]/ZIP Co de Phone Number MUSE SYSTEM * XR Chest One View (10/31/2020 6:58 PM EST) Anatomical Region Laterality Modality Chest N/A Digital Radiogra phy Impressions 10/31/2020 7:19 PM EST No acute cardiopulmonary process Thank you for letting us participate in the care of this patient. For questions regarding this report, please contact the number below. ? Electronically signed by: Seymour Galaviz MD, [facility] ([phone]), at 10/31/2020 7:19 PM Narrative 10/31/2020 7:19 [...] contact the number below. Electronically signed by: Seyomur Galaviz MD, [facility]([phone]), at 10/31/2020 7:19 PM Geovani Strange MD [...] on the instructions for use provided by [employer] and additional guidance provided by CDC and FDA. Testing is performed in the Clinical Genomics and [facility] Laboratory within the Department of Pathology and Laboratory Medicine at [facility], certified under the Clinical Laboratory Improvement [...] fact sheets at the following FDA website: https://www.fda.gov/medical-devices/yexovvifofk-evhoela-4607-wbtye-86-kapjgwzls- use-a nxoruktdndrof-pgrwocv-hoyetyk/hdfeb-cxnhtjhirjd-xtzb SARS-CoV-2 Source LOAN SUPERVISOR Swab [facility] Nasopharyngeal swab (specimen) 10/31/2020 6:52 PM EST 10/31/2020 7:21 PM EST Comment:Symptoms->Surveillan ce Narrative Resulting Agency Comment Spec In Lab Geovani Strange MD MICROBIOLOGY - GENE RAL ORDERABLES Performing Organization Address [facility]/State/ZIP Co de Phone Number [facility] [place] [address] * APTT (10/31/2020 6:06 PM EST) Partial [...] MD HEMATOLOGY ORDERABL ES Performing Organization Address City/[facility] Co de Phone Number [facility] [place] [address] * (ABNORMAL) Prothrombin Time (10/31/2020 6:06 PM [...] MD HEMATOLOGY ORDERABL ES Performing Organization Address [facility] Co de Phone Number [facility] [place] [address] * XR Pelvis (Generic) (10/31/2020 5:57 PM [...] ? Electronically signed by: Seymour Galaviz MD, [facility] ([phone]), at 10/31/2020 6:56 PM Narrative 10/31/2020 6:56 [...] ? Electronically signed by: Seymour Galaviz MD, [facility] ([phone]), at 10/31/2020 6:56 PM Narrative 10/31/2020 6:56 [...] below. Electronically signed by: Seymour Galaviz MD, [facility]([phone]), at 10/31/2020 6:56 PM Champ Whitaker DO IMG DX ORDERABLES * Scan, Peripheral Blood (10/31/2020 3:00 PM EST) Plat estimate Normal [facility] RBC Morphology Normal [facility] Blood specimen (specimen) 10/31/2020 3:00 PM EST 10/31/2020 3:08 PM EST Narrative Resulting Agency Comment Spec In Lab Bucky SIMEON HEMATOLOGY ORDERABLE S Performing Organization Address City/[facility] Co de Phone Number [facility] [place] [address] * ABORH Recheck Status (10/31/2020 3:00 PM EST) ABORH Type Recheck Completed [facility] Blood specimen (specimen) 10/31/2020 3:00 PM EST 10/31/2020 3:47 PM EST Narrative Resulting Agency Comment Spec In Lab Bucky SIMEON BLOOD BANK LAB ORDER JESSIE Performing Organization Address City/[facility] Co de Phone Number [facility] [place] [address] * Antibody screen (10/31/2020 3:00 PM EST) [facility] Ab Screen Interp Negative [facility] Expires at [id number] on: 11/03/2020 [facility] Blood specimen (specimen) 10/31/2020 3:00 PM EST 10/31/2020 3:47 PM EST Narrative Resulting Agency Comment Spec In Lab Bucky SIMEON BLOOD BANK LAB ORDER JESSIE [facility] [place] [address] * ABO/Rh Typing (10/31/2020 3:00 PM EST) ABORH Type O Pos [facility] Blood specimen (specimen) 10/31/2020 3:00 PM EST 10/31/2020 3:47 PM EST Narrative Resulting Agency Comment Spec In Lab Bucky Carlos SIMEON BLOOD BANK LAB ORDER JESSIE Performing Organization Address City/[facility]/ZIP Co de Phone Number [facility] [place] [address] * (ABNORMAL) Differential, Automated (10/31/2020 3:00 PM EST) Pathologist [facility] Neutrophil % 73.3 % [facility] Neutrophil Absolute 6.61(H) 1.70 - 6.10 x10(3)/mc L [facility] Lymph % 18.1 % [facility] Lymphocytes Abs 1.6 0.9 - 3.2 x10(3)/mc L [facility] Monocyte % 7.0 % [facility] Monocyte Abs 0.6 0.3 - 0.9 x10(3)/mc L [facility] Eos % 0.9 % [facility] Eosinophils Abs 0.1 0.0 - 0.4 x10(3)/mc L [facility] Basophil % 0.4 % [facility] [...] Absolute 0.03 0.00 - 0.04 x10(3)/ L [facility] Blood specimen (specimen) 10/31/2020 3:00 PM EST 10/31/2020 3:08 PM EST Narrative Resulting Agency Comment Spec In Lab Bucky SIMEON HEMATOLOGY ORDERABLE S [facility] [place] [address] * (ABNORMAL) Hemogram (10/31/2020 3:00 PM EST) White Blood Cell 9.0 4.0 - 9.5 x10(3)/[facility] Red Blood Cell 6.20(H) 4.58 - 5.54 x10(6)/[facility] Hemoglobin 18.6(H) 13.7 - 16.5 gm/dL [...] CENTER LABORATORY Platelet 265 145 - 357 x10(3)/[facility] RDW Standard Deviation 55.8(H) 36.0 - 45.0 [facility] RDW coefficient of variation 17.2(H) 11.4 - 13.8 % [facility] Mean Platelet Volume 9.1 7.6 - 12.9 [facility] NRBC% auto 0.0 % [facility] NRBC Absolute 0.000 0.000 - 0.000 x10(3)/[facility] Blood specimen (specimen) 10/31/2020 3:00 PM EST 10/31/2020 3:08 PM EST Narrative Resulting Agency Comment Spec In Lab Bucky SIMEON HEMATOLOGY ORDERABLE S [facility] [place] [address] * APTT (10/31/2020 3:00 PM EST) Partial [...] [facility] [place] [address] * Prothrombin Time (10/31/2020 3:00 PM EST) [...] [facility] [place] [address] * Basic Metabolic Panel (non-fasting) (10/31/2020 3:00 [...] In Lab Champ Whitaker DO CHEMISTRY ORDERABLES [facility] [place] [address] documented in this encounter Visit Diagnoses Not [...] RN) 1400 (Dose confirmed - Provider: Dee Setvens, JACOB) warfarin (Coumadin) tablet 5 mg (COMPLETED) [...] - Reason: Transfer to a Procedural area)1850 ([facility] Unhold - Provider: Admin Adt) bisacodyl EC [...] - Reason: Transfer to a Procedural area)185 ([facility] Unhold - Provider: Admin Adt) BUpivacaine (pf) [...] - Reason: Transfer to a Procedural area)1850 ([facility] Unhold - Provider: Admin Adt) povidone-iodine 5 [...] provided on this medication record., Routine 1329 ([facility] Hold - Provider: Admin Adt - Reason: Transfer to a Procedural area)1850 ([facility] Unhold - Provider: Admin Adt) thrombin (bovine) [...] Routine documented in this encounter Care Teams Stencil Sprayer Relationship Specialty Start Date End Date Nick Nettles MD [address] [place] [address] PCP - General Internal Medicine 10/05/19 documented as of this encounter
--- OUTSIDE RECORDS SUMMARY | 2024-08-20 10:52 | XMS_ITS | Encounter Summary ---
Author Organization [facility] [place] [address] Care Team Providers Care Auto Accessories Installer Name Role Phone Cherise Staples MD Primary Care Provider [phone] Encounter Details Date Type Department Care Team (Late st Contact Info) Description 12/15/2017 11:30 AM EDT Office Visit Weight and Wellness at [address] [phone] [place] [address] Morbid obesity (Primary Dx); Type 2 diabetes [...] Hahn MD - 12/15/2017 11:30 AM EDT [facility] Healthy Living Clinic Visit Patient Name: Jaime Crouch Date of : 1945 Age: 72 y.o. Cherise Staples MD / Thank you for referring Jaime Crouch to the [facility] Living Clinic for consultation regarding obesity. CHIEF COMPLAINT: Follow-up for Obesity INTERVAL HISTORY / PROGRESS TOWARD GOALS: [x] I reviewed past / interim records including notes and labs. Patient known to me here for follow up of obesity. At first visit in [facility] on 10.02.2017 he was 435 lbs. He [...] not done follow up sleep study in [facility] which he is supposed to do. [facility] Followup Responses 10/02/2017 [facility] - Readiness Score [...] the Healthy Lifestyles Program (HLP) at the [facility]. Classes start soon. ?? Goal setting: see [...] to follow up on sleep study in [facility]. Patient Instructions Start walking daily for exercise, you can start with 5 minutes per day. Tracking your food intake. Follow up with sleep study. [employer]fitnesspal Or L[employer] or sparkpeople. See me end of March. I spent a total of 20 minutes with the patient 15 minutes of which were spent in utub-nl-lkei discussion/counseling re obesity, nutrition and activity as well as obesity related co-morbidities documented in this encounter Plan of Treatment Not on file documented as of this encounter Visit Diagnoses Diagnosis Morbid obesity- Primary Type 2 diabetes mellitus with other circulatory complication, without long-term current use of insulin documented in this encounter Care Teams Auto Accessories Installer Relationship Specialty Start Date End Date Cherise Staples MD [address] [place] [address] PCP - General 07/31/10 10/04/19 documented as of this encounter
--- OUTSIDE RECORDS SUMMARY | 2024-08-20 10:52 | XMS_ITS | Encounter Summary ---
Author Organization [facility] [place] [address] Care Team Providers Care Rfid Manager Name Role Phone Cherise Staples MD Primary Care Provider [phone] Encounter Details Date Type Department Care Team (Late st Contact Info) Description 10/06/2017 Orders Only Weight and Wellness at [facility] [address] [place] [address] [place] [address] Social History Tobacco Use Types Packs/Day Years [...] on filedocumented in this encounter Care Teams Rfid Manager Relationship Specialty Start Date End Date Cherise Staples MD [address] [place] [address] PCP - General 07/31/10 10/04/19 documented as of this encounter
--- OUTSIDE RECORDS SUMMARY | 2024-08-20 10:52 | XMS_ITS | Encounter Summary ---
[place] [address] Care Team Providers Care Faculty Neuropsychologist Name Role Phone Cherise Staples MD Primary Care Provider [phone] Encounter Details Date Type Department Care Team (Latest Contact Info) Description 01/16/2018 11:45 AM EDT Laboratory Appointment Lab at [address] [phone] (HFpEF) heart failure with preserved ejection fraction; [...] 12:01 PM EDT) Neutrophil % 67.5 % [facility] Neutrophil Absolute 6.80(H) 1.70 - 6.10 x10(3)/mc L [facility] Lymph % 20.9 % [facility] Lymphocytes Abs 2.1 0.9 - 3.2 x10(3)/mc L [facility] Monocyte % 8.7 % [facility] Monocyte Abs 0.9 0.3 - 0.9 x10(3)/mc L [facility] Eos % 1.8 % [facility] Eosinophils Abs 0.2 0.0 - 0.4 x10(3)/mc L [facility] Basophil % 0.7 % [facility] Baso Absolute 0.1 0.0 - 0.1 x10(3)/mc L [facility] Immature Gran % 0.40 % [facility] Comment: Immature granulocytes(IG's)percentage and absolute count will include metamyelocytes, myelocytes, and promyelocytes. Blood smears from CBCs yielding IG's will be scanned manually for concordance. If this scan disagrees with the automated IG or if promyelocytes are noted, a manual differential will be performed. Immature Gran Absolute 0.04 0.00 - 0.04 x10(3)/mc L [facility] Blood specimen (specimen) 01/16/2018 12:01 PM EDT 01/16/2018 1:00 PM EDT Narrative Resulting Agency Comment Spec In Lab Bruna Goodman APRN HEMATOLOGY ORDERABLE S [facility] [place] [address] * (ABNORMAL) Hemogram (01/16/2018 12:01 PM EDT) White Blood Cell 10.1(H) 4.0 - 9.5 x10(3)/[facility] LABORAT[facility] Red Blood Cell 5.83(H) 4.58 - 5.54 x10(6)/mc L [facility] Hemoglobin 17.8(H) 13.7 - 16.5 gm/dL [facility] Hematocrit 54.6(H) 40.5 - 48.5 % [facility] Mean Cell Volume 93.7(H) 82.9 - 93.1 fL [facility] Mean Cell Hemoglobin 30.5 27.5 - 32.1 pg [facility] Mean Cell Hemoglobin Concentration 32.6 32.0 - 35.7 gm/dL [facility] Platelet 269 145 - 357 x10(3)/mc L [facility] RDW Standard Deviation 54.9(H) 36.0 - 45.0 [facility] RDW coefficient of variation 16.1(H) 11.4 - 13.8 % [facility] Mean Platelet Volume 9.9 7.6 - 12.9 [facility] NRBC% auto 0.0 % [facility] NRBC Absolute 0.000 0.000 - 0.000 x10(3)/[facility] Blood specimen (specimen) 01/16/2018 12:01 PM EDT 01/16/2018 1:00 PM EDT Narrative Resulting Agency Comment Spec In Lab Bruna Goodman APRN HEMATOLOGY ORDERABLE S Performing Organization Address [facility] Co de Phone Number [facility] [place] [address] * (ABNORMAL) pro-Brain Natriuretic Peptide (01/16/2018 12:01 PM EDT) NT-proBNP 422(H) <=125 pg/mL [facility] Blood specimen (specimen) 01/16/2018 12:01 PM EDT 01/16/2018 12:57 PM EDT Narrative Resulting Agency Comment Spec In Lab Bruna Goodman APRN CHEMISTRY ORDERABLES Performing Organization Address [facility] Co de Phone Number [facility] [place] [address] * (ABNORMAL) Hemoglobin A1c (01/16/2018 12:01 PM EDT) Pathologist [facility] Hemoglobin A1c 6.4(H) 4.3 - 5.6 % [facility] Comment: Reference Range: 4.3 [...] Mellitus, Diabetes Care 2013; 36: Suppl. 1, R57-35 Estimated Average Glucose See note mg/dL [facility] Comment: Estimated Average Glucose [...] into estimated average glucose values. ??Diabetes Care 2008:31(8):1597-4339. Blood specimen (specimen) 01/16/2018 12:01 PM EDT 01/16/2018 12:56 PM EDT Narrative Resulting Agency Comment Spec In Lab Bruna Goodman APRN CHEMISTRY ORDERABLES [facility] [place] [address] * (ABNORMAL) Basic Metabolic Panel (non-fasting) (01/16/2018 12:01 PM EDT) Glucose 122 65 - 199 mg/dL [facility] Comment:Diabetes: >=200 mg/d L plus symptoms Blood Urea Nitrogen 28(H) 10 - 20 mg/dL [facility] Creatinine 0.94 0.80 - 1.50 mg/dL [facility] Sodium 142 135 - 145 mmol/L [facility] Potassium 4.3 3.5 - 5.0 mmol/L [facility] Comment: Please note: ??Patients with WBC >100,000 may have falsely elevated Potassium levels. ??For accurate Potassium quantification in these patients send serum separator tube (gold top) for subsequent determinations. ??Contact the Clinical Chemistry Laboratory if there are any questions. Chloride 104 98 - 107 mmol/L [facility] Carbon Dioxide 22 22 - 31 mmol/L [facility] Anion Gap 16(H) 5 - 15 mmol/L [facility] Calcium 9.4 8.5 - 10.5 mg/dL [facility] Est Glomerular Filtration Rate >60 >=60 [facility] Comment: The reported eGFR should be multiplied by 1.2 for patients. The MDRD is not an appropriate measure of renal function for patients with body mass extremes or in patients with acute kidney failure. http://Doktorburada.com/DHnkdep http://[employer]tor[employer].com/DHMCnkf Blood specimen (specimen) 01/16/2018 12:01 PM EDT 01/16/2018 12:57 PM EDT Narrative Resulting Agency Comment Spec In Lab Burna Goodman APRN CHEMISTRY ORDERABLES [facility] [place] [address] documented in this encounter Visit Diagnoses Diagnosis (HFpEF) heart failure with preserved ejection fraction Type 2 diabetes mellitus with complication, without long-term current use of insulin documented in this encounter Care Teams Faculty Neuropsychologist Relationship Specialty Start Date End Date Cherise Staples MD [address] [place] [address] PCP - General 07/31/10 10/04/19 documented as of this encounter
--- OUTSIDE RECORDS SUMMARY | 2024-08-20 10:52 | XMS_ITS | Encounter Summary ---
[place] [address] Care Team Providers Care Pattern Chart Writer Name Role Phone Cherise Staples MD Primary Care Provider [phone] Reason for Referral * Diagnostic Test (Routine) - Closed Specialty Diagnoses / Procedures Referred By Contac t Referred To Contact Cardiology Diagnoses (HFpEF) heart failure with preserved ejection fraction Dilated aortic root Procedures Echocardiogram Transthoracic(Leb) Bruna Goodman APRN [facility] [place] [address] [place] [address] [facility] [place] [address] Referral ID Status Reason Start Date Expiration Date V isits Requested Visits Authorized [id number] Closed Specialty Service Requested 01/16/2018 01/16/2019 1 1 Reason for Visit * Diagnostic Test (Routine) - Closed Specialty Diagnoses / Procedures Referred By Contac t Referred To Contact Cardiology Diagnoses (HFpEF) heart failure with preserved ejection fraction Dilated aortic root Procedures Echocardiogram Transthoracic(Leb) Bruna Goodman APRN [facility] [place] [address] [facility] [place] [address] Referral ID Status Reason Start Date Expiration Date V isits Requested Visits Authorized [id number] Closed Specialty Service Requested 01/16/2018 01/16/2019 1 1 Encounter Details Date Type Department Care Team (Latest Contact Info) Description 02/27/2018 10:30 AM EDT - 02/27/2018 11:59 PM EDT Hospital Encounter Non-Invasive [place] [id number] Bruna Goodman, INVESTOR RELATIONS ANALYST [facility] [place] [address] (HFpEF) heart failure with preserved ejection fraction; [...] ?RAINA WILLIS ?(Age): 1945(72y) Med Rec#: ? [id number] ?Sex: ?M ? Site Loc: ? [facility] ?Ht / Wt: ??178(cm)/196(kg) Pt. Loc: ?Echo Lab ?BSA: ?2.9 Study Date: ?? 02/27/2018 ?Pt. Type: Outpatient Tape: ? Referring: ITALO Reading: Carlos Manuel Rodriguez ([id number]) Import Dispatcher: Eleonora Watt RDCS Diagnosis: *Heart failure, unspecified [...] ? Mid-Inferior ?Normal ? Mid-Inferoseptal ?Normal ? [place]-Septal ? Normal ? [place]-Anterior ? Normal ? [place]-Lateral ?Normal ? [place]-Inferior ? Normal ? [place]-Tip ?Normal ? This report has been electronically signed by: Carlos Manuel Rodriguez MD ? 02/27/2018 12:33:00 Images reviewed and interpretation verified [facility] Cardiac Ultrasound Laboratory Procedure Note Carlos Manuel Rodriguez MD - 02/27/2018 Procedure: Transthoracic Echocardiogram Patient: RAINA WILLIS DOB(Age): 1945(72y) Med Rec#: [id number] Sex: M Site Loc: [facility] Ht / Wt: 178(cm)/196(kg) Pt. Loc: Echo Lab BSA: 2.9 Study Date: 02/27/2018 Pt. Type: Outpatient Tape: Referring: ITALO Reading: Carlos Manuel Rodriguez Yeni ([id number]) Import Dispatcher: Eleonora Watt [facility] Diagnosis: *Heart failure, unspecified [...] Normal Mid-Posterolateral Hypokinetic Mid-Inferior Normal Mid-Inferoseptal Normal [place]-Septal Normal [place]-Anterior Normal [place]-Lateral Normal [place]-Inferior Normal [place]-Tip Normal This report has been electronically signed by: Carlos Manuel Rodriguez MD 02/27/2018 12:33:00 Images reviewed and interpretation verified [facility] Cardiac Ultrasound Laboratory Bruna Goodman [...] mLs documented in this encounter Care Teams Pattern Chart Writer Relationship Specialty Start Date End Date Cherise Staples MD [address] [place] [address] PCP - General 07/31/10 10/04/19 documented as of this encounter
--- OUTSIDE RECORDS SUMMARY | 2024-08-20 10:52 | XMS_ITS | Encounter Summary ---
Author Organization [facility] Address [facility] [place] [address] Care Team Providers Care Rn Occupational Health Name Role Phone Cherise Staples MD Primary Care Provider [phone] Encounter Details Date Type Department Care Team (Late st Contact Info) Description 07/03/2018 Notes Only Weight and Wellness at [facility] [address] [place] [address] [place] [address] Social History Tobacco Use Types Packs/Day Years [...] Hahn MD - 07/03/2018 2:05 PM EDT [facility] message sent to patient: Ravindra, Mr. Crouch, [...] on filedocumented in this encounter Care Teams Rn Occupational Health Relationship Specialty Start Date End Date Cherise Staples MD [address] [place] [address] PCP - General 07/31/10 10/04/19 documented as of this encounter
--- OUTSIDE RECORDS SUMMARY | 2024-08-20 10:52 | XMS_ITS | Encounter Summary ---
Author Organization [facility] Address [facility] [place] [address] Care Team Providers Care Laundry Tub Maker Name Role Phone Cherise Stalpes MD Primary Care Provider [phone] Reason for Visit * Reason Comments Weight Management Follow-up Encounter Details Date Type Department Care Team (Late st Contact Info) Description 03/16/2018 11:30 AM EDT Office Visit Weight and Wellness at [address] [phone] Kera Hahn MD [facility] [address] Class 3 severe obesity due to excess [...] Hahn MD - 03/16/2018 11:30 AM EDT [facility] Healthy Living Clinic Visit Patient Name: Jaime Crouch Date of : 1945 Age: [address] Cherise Staples MD / No ref. provider found Thank you for referring Jaime Crouch to the [facility] Healthy Living Clinic for consultation regarding [...] Last night has 4 new potatoes, sauted moldovan chard sauted in oil and garlic, 6 [...] CHF clinic Visit. PCP follow up recommended. [facility] Followup Responses 10/02/2017 URICA - Readiness Score [...] the Healthy Lifestyles Program (HLP) at the [facility]. ?? He has had no significant weight [...] 15 minutes of which were spent in [id number]-[id number] discussion/counseling re obesity, nutrition and activity as [...] insulin documented in this encounter Care Teams Laundry Tub Maker Relationship Specialty Start Date End Date Cherise Staples MD [address] [place] [address] PCP - General 07/31/10 10/04/19 documented as of this encounter
--- OUTSIDE RECORDS SUMMARY | 2024-08-20 10:52 | XMS_ITS | Encounter Summary ---
Author Organization [facility] [place] [address] Care Team Providers Care Cost Accounting Manager Name Role Phone Cherise Staples MD Primary Care Provider [phone] Encounter Details Date Type Department Care Team (Late st Contact Info) Description 01/02/2018 12:00 PM EDT Notes Only Weight and Wellness at [address] [phone] Arrived Social History Tobacco Use Types Packs/Day [...] on filedocumented in this encounter Care Teams Cost Accounting Manager Relationship Specialty Start Date End Date Cherise Staples MD [address] [place] [address] PCP - General 07/31/10 10/04/19 documented as of this encounter
--- OUTSIDE RECORDS SUMMARY | 2024-08-20 10:52 | XMS_ITS | Encounter Summary ---
Author Organization [facility] Address [facility] [place] [address] Care Team Providers Care Oil Exploration Engineer Name Role Phone Cherise Staples MD Primary Care Provider [phone] Encounter Details Date Type Department Care Team (Latest Contact Info) Description 02/17/2017 10:08 AM EDT - 02/17/2017 11:59 PM EDT Hospital Encounter Non-[place] [phone] Slim Summers MD [facility] [place] [address] Chronic systolic heart failure; SOB (shortness of breath); Coronary artery disease involving [place] heart, angina presence unspecified, unspecified vessel or [...] (shortness of breath) Coronary artery disease involving [place] heart, angina presence unspecified, unspecified vessel or lesion type 1 Occurrences starting 02/17/2017 until 02/17/2017 documented as of this encounter Visit Diagnoses Diagnosis Chronic systolic heart failure SOB (shortness of breath) Shortness of breath Coronary artery disease involving [place] heart, angina presence unspecified, unspecified vessel or lesion type documented in this encounter Care Teams Oil Exploration Engineer Relationship Specialty Start Date End Date Cherise Staples MD [address] [place] [address] PCP - General 07/31/10 10/04/19 documented as of this encounter
--- OUTSIDE RECORDS SUMMARY | 2024-08-20 10:52 | XMS_ITS | Encounter Summary ---
[place] [address] Care Team Providers Care Event Crew Technician Name Role Phone Cherise Staples MD Primary Care Provider [phone] Encounter Details Date Type Department Care Team (Latest Contact Info) Description 02/17/2017 1:30 PM EDT Laboratory Appointment Cardiology at [address] [phone] Chronic systolic heart failure; SOB (shortness of [...] 10:42 AM EDT) Neutrophil % 71.4 % [facility] Neutrophil Absolute 6.31(H) 1.70 - 6.10 x10(3)/mc L [facility] Lymph % 18.1 % [facility] Lymphocytes Abs 1.6 0.9 - 3.2 x10(3)/mc L [facility] Monocyte % 7.8 % [facility] Monocyte Abs 0.7 0.3 - 0.9 x10(3)/mc L [facility] Eos % 1.2 % [facility] Eosinophils Abs 0.1 0.0 - 0.4 x10(3)/mc L [facility] Basophil % 1.0 % [facility] Baso Absolute 0.1 0.0 - 0.1 x10(3)/mc L [facility] Immature Gran % 0.50 % [facility] Comment: Immature granulocytes(IG's)percentage and absolute count will include metamyelocytes, myelocytes, and promyelocytes. Blood smears from CBCs yielding IG's will be scanned manually for concordance. If this scan disagrees with the automated IG or if promyelocytes are noted, a manual differential will be performed. Immature Gran Absolute 0.04 0.00 - 0.04 x10(3)/mc L [facility] Blood specimen (specimen) 02/17/2017 10:42 AM EDT 02/17/2017 10:53 AM EDT Narrative Resulting Agency Comment Spec In Lab Slim Summers MD HEMATOLOGY ORDERA BLES [facility] [place] [id number] * (ABNORMAL) Hemogram (02/17/2017 10:42 AM EDT) Pathologist [facility] White Blood Cell 8.8 4.0 - 9.5 x10(3)/ L [facility] Red Blood Cell 5.73(H) 4.58 - 5.54 x10(6)/ L [facility] Hemoglobin 17.6(H) 13.7 - 16.5 gm/dL [facility] Hematocrit 52.6(H) 40.5 - 48.5 % [facility] Mean Cell Volume 91.8 82.9 - 93.1 fL [facility] Mean Cell Hemoglobin 30.7 27.5 - 32.1 pg [facility] Mean Cell Hemoglobin Concentration 33.5 32.0 - 35.7 gm/dL [facility] Platelet 260 145 - 357 x10(3)/[facility] RDW Standard Deviation 51.9(H) 36.0 - 45.0 fL [facility] RDW coefficient of variation 15.8(H) 11.4 - 13.8 % [facility] Mean Platelet Volume 9.4 7.6 - 12.9 fL [facility] NRBC% auto 0.0 % [facility] NRBC Absolute 0.000 0.000 - 0.000 x10(3)/[facility] Blood specimen (specimen) 02/17/2017 10:42 AM EDT 02/17/2017 10:53 AM EDT Narrative Resulting Agency Comment Spec In Lab Slim Summers MD HEMATOLOGY ORDERA BLES [facility] [place] [address] * (ABNORMAL) pro-Brain Natriuretic Peptide (02/17/2017 10:42 AM EDT) Pathologist [facility] NT-proBNP 271(H) <=125 pg/mL [facility] Blood specimen (specimen) 02/17/2017 10:42 AM EDT 02/17/2017 10:53 AM EDT Narrative Resulting Agency Comment Spec In Lab Slim Summers MD CHEMISTRY ORDERAB LES [facility] [place] [address] * (ABNORMAL) Comprehensive metabolic panel (non-fasting) (02/17/2017 10:42 AM EDT) Glucose 129 65 - 199 mg/dL [facility] Comment:Diabetes: >=200 mg/d L plus symptoms Blood Urea Nitrogen 26(H) 10 - 20 mg/dL [facility] Creatinine 1.08 0.80 - 1.50 mg/dL [facility] Comment: Please note that the pediatric reference intervals supplied above were not validated at [facility]. Results from pediatric patients should be interpreted in conjunction to the patient's age, height and muscle mass. Sodium 142 135 - 145 mmol/L [facility] Potassium 4.5 3.5 - 5.0 mmol/L [facility] Comment: Please note: ??Patients with WBC >100,000 may have falsely elevated Potassium levels. ??For accurate Potassium quantification in these patients send serum separator tube (gold top) for subsequent determinations. ??Contact the Clinical Chemistry Laboratory if there are any questions. Chloride 105 98 - 107 mmol/L [facility] Carbon Dioxide 23 22 - 31 mmol/L [facility] Anion Gap 14 5 - 15 mmol/L [facility] Calcium 9.8 8.5 - 10.5 mg/dL [facility] Protein, Total 7.1 6.1 - 8.0 gm/dL [facility] Albumin 3.4 3.2 - 5.2 gm/dL [facility] Aspartate Aminotransferase 18 0 - 39 unit/L [facility] Alanine Aminotransferase 30 0 - 55 unit/L [facility] Alkaline Phosphatase 97 40 - 120 unit/L [facility] Bilirubin, Total 0.6 0.2 - 1.3 mg/dL [facility] Bilirubin, Direct 0.1 0.0 - 0.3 mg/dL [facility] Est Glomerular Filtration Rate >60 >=60 [facility] Comment: This estimated GFR (eGFR) value [...] the following links into your internet browser. [email or web address] Blood specimen (specimen) 02/17/2017 10:42 AM EDT 02/17/2017 10:53 AM EDT Narrative Resulting Agency Comment Spec In Lab Slim Summers MD CHEMISTRY ORDERAB LES [facility] [place] [address] documented in this encounter Visit Diagnoses Diagnosis Chronic systolic heart failure SOB (shortness of breath) Shortness of breath Heart failure, unspecified documented in this encounter Care Teams Event Crew Technician Relationship Specialty Start Date End Date Cherise Staples MD [address] [place] [address] PCP - General 07/31/10 10/04/19 documented as of this encounter
--- OUTSIDE RECORDS SUMMARY | 2024-08-20 10:52 | XMS_ITS | Encounter Summary ---
Author Organization [facility] Address [facility] [place] [address] Care Team Providers Care Board Liner Operator Name Role Phone Cherise Staples MD Primary Care Provider [phone] Encounter Details Date Type Department Care Team (Late st Contact Info) Description 04/10/2018 1:30 PM EDT Office Visit Weight and Wellness at [address] [phone] Karrie Cyr I, [facility] [place] [address] Class 3 severe obesity due to excess [...] Trackers: yes Weight Today: Vitals 04/10/2018 Height (Croatian) 5' 10 Height (Metric) 177.8 cm Weight (Croatian) 426 lbs Weight (Metric) 193.232 kg BODY [...] 3. Slow down meal time by stopping group home through and putting down utensil and [...] for accuracy Monitor/Evaluate: Will follow up in [facility] for Eatsmarter classes Aim for 5-10% weight [...] adult documented in this encounter Care Teams Board Liner Operator Relationship Specialty Start Date End Date Cherise Staples MD [address] [place] [address] PCP - General 07/31/10 10/04/19 documented as of this encounter
--- OUTSIDE RECORDS SUMMARY | 2024-08-20 10:52 | XMS_ITS | Encounter Summary ---
Author Organization [facility] Address [facility] [place] [address] Care Team Providers Care Ink Blender Name Role Phone Nick Nettles MD Primary Care Provider [phone] Encounter Details Date Type Department Care Team (Late st Contact Info) Description 07/12/2020 Orders Only Cardiology at [address] [phone] Bruna Goodman, [facility] [place] [address] HFrEF (heart failure with reduced ejection fraction) [...] fraction) documented in this encounter Care Teams Ink Blender Relationship Specialty Start Date End Date Nick Nettles MD [address] [place], [place] [address] PCP - General Internal Medicine 10/05/19 documented as of this encounter
--- OUTSIDE RECORDS SUMMARY | 2024-08-20 10:52 | XMS_ITS | Encounter Summary ---
Author Organization [facility] [place] [address] Care Team Providers Care Factory Lay Out Engineer Name Role Phone Cherise Staples MD Primary Care Provider [phone] Encounter Details Date Type Department Care Team (Late st Contact Info) Description 05/15/2018 12:00 PM EDT Notes Only Weight and Wellness at [address] [phone] Arrived Social History Tobacco Use Types Packs/Day [...] on filedocumented in this encounter Care Teams Factory Lay Out Engineer Relationship Specialty Start Date End Date Cherise Staples MD [address] [place] [address] PCP - General 07/31/10 10/04/19 documented as of this encounter
--- OUTSIDE RECORDS SUMMARY | 2024-08-20 10:52 | XMS_ITS | Encounter Summary ---
Author Organization [facility] Address [facility] [place] [address] Care Team Providers Care On Site Soil Evaluator Name Role Phone Cherise Staples MD Primary Care Provider [phone] Reason for Visit * Reason Comments Weight Management Encounter Details Date Type Department Care Team (Late st Contact Info) Description 10/09/2017 1:30 PM EST Office Visit Weight and Wellness at [address] [phone] Maria Esther Miller Tara I, RD [facility] [place] [address] Class 3 obesity due to excess calories [...] - aim for 2,400 calories - handout fromembraaseMyPlate.gov for servings of all food groups/day reviewed and provided 2. Divide up evenly over the day - ~600 calories/meal and ~ 150 -200/2 small snacks 3. 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 Divide up evenly over the day - ~600 calories/meal and ~ 150 -200/2 small snacks 3. Slow down meal time by stopping jail through and putting down utensil and check [...] Test (6MWT): deferred 30-Second Chair Stand: 6 Java Swing Developer Strength Test Right: 33.6 Left: 36.4 POST [...] adult documented in this encounter Care Teams On Site Soil Evaluator Relationship Specialty Start Date End Date Cherise Staples MD [address] [place] [address] PCP - General 07/31/10 10/04/19 documented as of this encounter
--- OUTSIDE RECORDS SUMMARY | 2024-08-20 10:52 | XMS_ITS | Encounter Summary ---
Author Organization [facility] [place] [address] Care Team Providers Care Body Technician Name Role Phone Cherise Staples MD Primary Care Provider [phone] Encounter Details Date Type Department Care Team (Late st Contact Info) Description 11/03/2017 12:00 PM EST Office Visit Weight and Wellness at [address] [phone] [place] [address] Type 2 diabetes mellitus with other circulatory [...] Hahn MD - 11/03/2017 12:[address] [facility] Healthy Living [facility] Visit Patient Name: Jaime Crouch Date of : 1945 Age: 72 y.o. Cherise Staples MD Thank you for referring Jaime Crouch to the [facility] Healthy Living Clinic for consultation regarding obesity. [...] which he is supposed to do in [facility] Followup Responses 10/02/2017 URICA - [...] bp initially high when done by health motorcoach driver. Lower when repeated by me. Blood pressure [...] [facility] I also started him on metformin [...] 20 minutes of which were spent in [id number]-[id number] discussion/counseling re: diabetes, obesity, nutrition and activity as well as obesity related co-morbidities documented in this encounter Plan of Treatment Not on file documented as of this encounter Visit Diagnoses Diagnosis Type 2 diabetes mellitus with other circulatory complication, without long-term current use of insulin- Primary Persistent atrial fibrillation Atrial fibrillation Morbid obesity documented in this encounter Care Teams Body Technician Relationship Specialty Start Date End Date Cherise Staples MD [address] [place] [address] PCP - General 07/31/10 10/04/19 documented as of this encounter
--- OUTSIDE RECORDS SUMMARY | 2024-08-20 10:52 | XMS_ITS | Encounter Summary ---
Author Organization [facility] [place] [address] Care Team Providers Care Programmer Analyst Consultant Name Role Phone Cherise Staples MD Primary Care Provider [phone] Encounter Details Date Type Department Care Team (Late st Contact Info) Description 04/03/2018 12:00 PM EDT Notes Only Weight and Wellness at [address] [phone] Arrived Social History Tobacco Use Types Packs/Day [...] on filedocumented in this encounter Care Teams Programmer Analyst Consultant Relationship Specialty Start Date End Date Cherise Staples MD [address] [place] [address] PCP - General 07/31/10 10/04/19 documented as of this encounter
--- OUTSIDE RECORDS SUMMARY | 2024-08-20 10:52 | XMS_ITS | Encounter Summary ---
Author Organization [facility] [place] [address] Care Team Providers Care Labor Union Business Representative Name Role Phone Cherise Staples MD Primary Care Provider [phone] Reason for Visit * Reason Comments Nephrolithiasis Encounter Details Date Type Department Care Team (Late st Contact Info) Description 07/01/2018 11:30 AM EDT [place] [address] Edyta Arambula Jr., MD [facility] [place] [address] Nephrolithiasis Social History Tobacco Use Types Packs/Day [...] warfarin) Past medical history: urolithiasis, obesity, CAD ([place] age 52), heart failure, DM, LHD, HTN, h/o gout; atrial fibrillation (on warfarin), TOM Past surgical history: bilateral hip replacements (7 years ago), cardiac stent placement, appendectomy, right pcnl 2008, circumcision in [facility] ~5 years ago, cholecystectomy 08/2015 requiring [...] kidney documented in this encounter Care Teams Labor Union Business Representative Relationship Specialty Start Date End Date Cherise Staples MD [address] [place] [address] PCP - General 07/31/10 10/04/19 documented as of this encounter
--- OUTSIDE RECORDS SUMMARY | 2024-08-20 10:52 | XMS_ITS | Encounter Summary ---
Author Organization [facility] [place] [address] Care Team Providers Care Claim Approver Name Role Phone Cherise Staples MD Primary Care Provider [phone] Reason for Visit * Diagnostic Test (Routine) - Closed Specialty Diagnoses / Procedures Referred By Contalberto t Referred To Contact Radiology Diagnoses Chronic systolic heart failure SOB (shortness of breath) Coronary artery disease involving [place] heart, angina presence unspecified, unspecified vessel or lesion type Procedures NM Myocardial Perfusion Scan Pharmacologic Carito Cabrera MD [facility] [address] [place] [address] Referral ID Status Reason Start Date Expiration Date V isits Requested Visits Authorized [id number] Closed Specialty Service Requested 01/21/2017 01/21/2018 4 4 Encounter Details Date Type Department Care Team (Latest Contact Info) Description 02/17/2017 8:43 AM EDT - 02/17/2017 10:07 AM EDT Hospital Encounter [place] [address] Slim Summers MD [facility] [place] [address] Discharge Disposition: Home Social History [...] (shortness of breath) Coronary artery disease involving [place] heart, angina presence unspecified, unspecified vessel or [...] on filedocumented in this encounter Care Teams Claim Approver Relationship Specialty Start Date End Date Cherise Staples MD [address] [place] [address] PCP - General 07/31/10 10/04/19 documented as of this encounter
--- OUTSIDE RECORDS SUMMARY | 2024-08-20 10:52 | XMS_ITS | Encounter Summary ---
[place] [address] Care Team Providers Care Lan Administrator Name Role Phone Nick Nettles MD Primary Care Provider Encounter Details Date Type Department Care Team (Late st Contact Info) Description 10/30/2020 Orders [place] [address] Jeffrey Cuevas MD [address] [facility] [place] [address] History of total hip arthroplasty, left Social [...] left documented in this encounter Care Teams Lan Administrator Relationship Specialty Start Date End Date Nick Nettles MD [address] [place] [address] PCP - General Internal Medicine 10/05/19 documented as of this encounter
--- OUTSIDE RECORDS SUMMARY | 2024-08-20 10:52 | XMS_ITS | Encounter Summary ---
Author Organization [facility] [place] [address] Care Team Providers Care Shot Hole Shooter Name Role Phone Cherise Staples MD Primary Care Provider [phone] Reason for Visit * Diagnostic Test (Routine) - Closed Specialty Diagnoses / Procedures Referred By Contalberto t Referred To Contact Radiology Diagnoses Chronic systolic heart failure SOB (shortness of breath) Coronary artery disease involving [place] heart, angina presence unspecified, unspecified vessel or lesion type Procedures NM Myocardial Perfusion Scan Pharmacologic Carito Cabrera MD [facility] [place] [address] [place] [address] Referral ID Status Reason Start Date Expiration Date V isits Requested Visits Authorized [id number] Closed Specialty Service Requested 01/21/2017 01/21/2018 4 4 Encounter Details Date Type Department Care Team (Latest Contact Info) Description 02/17/2017 8:42 AM EDT Hospital Encounter [place] [address] Slim Summers MD [facility] [place] [address] Discharge Disposition: Home Social History [...] (shortness of breath) Coronary artery disease involving [place] heart, angina presence unspecified, unspecified vessel or [...] on filedocumented in this encounter Care Teams Shot Hole Shooter Relationship Specialty Start Date End Date Cherise Staples MD [address] [place] [address] PCP - General 07/31/10 10/04/19 documented as of this encounter
--- OUTSIDE RECORDS SUMMARY | 2024-08-20 10:52 | XMS_ITS | Encounter Summary ---
Author Organization [facility] Address [facility] [place] [address] Care Team Providers Care Fleet Mechanic Name Role Phone Cherise Staples MD Primary Care Provider [phone] Encounter Details Date Type Department Care Team (Late st Contact Info) Description 07/01/2018 2:30 PM EDT Office Visit Weight and Wellness at [address] [address] Karrie Cyr I, MISHEL [facility] [place] [address] Type 2 diabetes mellitus with other circulatory [...] loss x 10 months Vitals 07/01/2018 Height (Surinamese) 5' 10 Height (Metric) 177.8 cm Weight (Surinamese) 429 lbs 10 oz Weight (Metric) 194.865 [...] insulin documented in this encounter Care Teams Fleet Mechanic Relationship Specialty Start Date End Date Cherise Staples MD [address] [place] [address] PCP - General 07/31/10 10/04/19 documented as of this encounter
--- OUTSIDE RECORDS SUMMARY | 2024-08-20 10:52 | XMS_ITS | Encounter Summary ---
Author Organization [facility] Address [facility] [place] [address] Care Team Providers Care Communications Department Head Name Role Phone Chersie Staples MD Primary Care Provider [phone] Encounter Details Date Type Department Care Team (Late st Contact Info) Description 02/24/2019 2:40 PM EDT Office Visit Cardiology at [address] [address] Bruna Goodman, DIRECTOR OF TRAUMA [facility] [place] [address] Chronic heart failure with preserved ejection fraction; [...] this encounter Progress Notes * VanitaMarianaBruna Wolfe, DIRECTOR OF TRAUMA - 02/24/2019 2:40 PM EDT [facility] Patient Name: Jaime [...] ??? ASCVD (arteriosclerotic cardiovascular disease) 1993 first [place] 1992, stent to LAD in 2006 ??? [...] Abdomen: Protuberant, soft and non-tender, no ascites. BUSINESS CONTINUITY PLANNER: Alert and oriented x3. Most recent cardiology [...] 1:43 PM EDT) NT-proBNP 333(H) <=125 pg/mL [facility] Blood specimen (specimen) 02/24/2019 1:43 PM EDT 02/24/2019 1:50 PM EDT Narrative Resulting Agency Comment Spec In Lab Bruna Goodman APRN CHEMISTRY ORDERABLES [facility] [place] [address] * (ABNORMAL) Basic Metabolic Panel (non-fasting) (02/24/2019 1:43 PM EDT) Glucose 185 65 - 199 mg/dL [facility] Comment:Diabetes: >=200 mg/d L plus symptoms Blood Urea Nitrogen 20 10 - 20 mg/dL [facility] Creatinine 0.96 0.80 - 1.50 mg/dL [facility] Sodium 138 135 - 145 mmol/L [facility] Potassium 4.6 3.5 - 5.0 mmol/L [facility] Comment: Please note: ??Patients with WBC >100,000 may have falsely elevated Potassium levels. ??For accurate Potassium quantification in these patients send serum separator tube (gold top) for subsequent determinations. ??Contact the Clinical Chemistry Laboratory if there are any questions. Chloride 104 98 - 107 mmol/L [facility] Carbon Dioxide 21(L) 22 - 31 mmol/L [facility] Anion Gap 13 5 - 15 mmol/L [facility] Calcium 9.5 8.5 - 10.5 mg/dL [facility] Est Glomerular Filtration Rate 79 >=60 mL/min/1. 73 m?? [facility] Comment: The eGFR was calculated using the CKD-EPI equation. As with all creatinine based estimates of kidney function, eGFR values calculated with the CKD-EPI equation are not accurate in patients with acute kidney failure, extremes of body mass or the acutely ill. http://[employer]/[facility] eGFR 92 >=60 mL/min/1. 73 m?? [facility] Comment: The eGFR was calculated using the CKD-EPI equation. As with all creatinine based estimates of kidney function, eGFR values calculated with the CKD-EPI equation are not accurate in patients with acute kidney failure, extremes of body mass or the acutely ill. http://[employer]/[facility] Blood specimen (specimen) 02/24/2019 1:43 PM EDT 02/24/2019 1:50 PM EDT Narrative Resulting Agency Comment Spec In Lab Bruna Goodman DIRECTOR OF TRAUMA CHEMISTRY ORDERABLES [facility] [place] [address] documented in this encounter Visit Diagnoses Diagnosis Chronic heart failure with preserved ejection fraction Thoracic aortic aneurysm without rupture Thoracic aneurysm without mention of rupture Essential hypertension Unspecified essential hypertension Chronic atrial fibrillation Atrial fibrillation documented in this encounter Care Teams Communications Department Head Relationship Specialty Start Date End Date Cherise Staples MD [address] [place] [address] PCP - General 07/31/10 10/04/19 documented as of this encounter
--- OUTSIDE RECORDS SUMMARY | 2024-08-20 10:52 | XMS_ITS | Encounter Summary ---
Author Organization [facility] [place] [address] Care Team Providers Care Fire Control Technician B Name Role Phone Cherise Staples MD Primary Care Provider [phone] Reason for Visit * Reason Onset Date Comments Follow-up 02/19/2017 abnormal labs Encounter Details Date Type Department Care Team (Late st Contact Info) Description 02/19/2017 Telephone Cardiology at [address] [phone] Terri Orlando, RN Follow-up (abnormal labs) Social [...] to Fanny, Triage nurse for Dr Staples ([phone]). Given information below and 02/17/17 clinic note and current labs e-faxed ([phone]) to Dr Staples as well. * Telephone [...] on filedocumented in this encounter Care Teams Fire Control Technician B Relationship Specialty Start Date End Date Cherise Staples MD [address] [place] [address] PCP - General 07/31/10 10/04/19 documented as of this encounter
--- OUTSIDE RECORDS SUMMARY | 2024-08-20 10:52 | XMS_ITS | Encounter Summary ---
Author Organization [facility] [place] [address] Care Team Providers Care Real Estate Administrator Name Role Phone Cherise Staples MD Primary Care Provider [phone] Encounter Details Date Type Department Care Team (Late st Contact Info) Description 02/27/2018 12:00 PM EDT Notes Only Weight and Wellness at [address] [phone] Arrived Social History Tobacco Use Types Packs/Day [...] on filedocumented in this encounter Care Teams Real Estate Administrator Relationship Specialty Start Date End Date Cherise Staples MD [address] [place] [address] PCP - General 07/31/10 10/04/19 documented as of this encounter
--- OUTSIDE RECORDS SUMMARY | 2024-08-20 10:52 | XMS_ITS | Encounter Summary ---
Author Organization [facility] Address [facility] [place] [address] Care Team Providers Care Technology Recruiter Name Role Phone Cherise Staples MD Primary Care Provider Encounter Details Date Type Department Care Team (Latest Contact Info) Description 07/01/2018 10:29 AM EDT - 07/01/2018 11:59 PM EDT Hospital [place] [address] Edyta Arambula Jr., MD [facility] [place] [address] Nephrolithiasis Discharge Disposition: Home Social History Tobacco [...] 11:33 am) PATIENT INFO: ID #: ? [id number] ?: ??[birth year] (72 yrs) Name: ? LAZARO CROUCH ? Visit Date: 07/01/2018 11:01 am PERFORMED BY: Performed By: ? Isabel Mason RDMS Attending: ?Lauren SPIVEY, Jane Padilla. Referred By: ?EDYTA ARAMBULA Location: ? [place] SERVICE(S) PROVIDED: ??URETRO - Retroperitoneal Complete - [id number] ? [id number] INDICATIONS: ??stones TECHNIQUE/SCAN QUALITY: Scan Quality: ?? Limited by patient body habitus. COMPARISON: REnal/bladder ultrasound 07/30/16 [facility]; CT abdomen/pelvis 08/29/15 from [facility]. RIGHT [...] 07/01/2018 11:33 am) PATIENT INFO: ID #: [id number] : [birth year] (72 yrs) Name: LAZARO CROUCH Visit Date: 07/01/2018 11:01 am PERFORMED BY: Performed By: Isabel Mason RDMS Attending: Jane Aguilar MD Referred By: EDYTA ARAMBULA JR Location: [place] SERVICE(S) PROVIDED: URETRO - Retroperitoneal Complete - [id number] INDICATIONS: stones TECHNIQUE/SCAN QUALITY: Scan Quality: Limited by patient body habitus. COMPARISON: REnal/bladder ultrasound 07/30/16 [facility]; CT abdomen/pelvis 08/29/[address] [facility]. RIGHT KIDNEY: Size (cm) L: 13.0 Cortical [...] kidney documented in this encounter Care Teams Technology Recruiter Relationship Specialty Start Date End Date Cherise Staples MD [address] [place] [address] PCP - General 07/31/10 10/04/19 documented as of this encounter
--- OUTSIDE RECORDS SUMMARY | 2024-08-20 10:52 | XMS_ITS | Encounter Summary ---
Author Organization [facility] [place] [address] Care Team Providers Care Nutrition Aide Name Role Phone Cherise Staples MD Primary Care Provider [phone] Encounter Details Date Type Department Care Team (Late st Contact Info) Description 04/10/2018 12:00 PM EDT Notes Only Weight and Wellness at [address] [phone] Arrived Social History Tobacco Use Types Packs/Day [...] on filedocumented in this encounter Care Teams Nutrition Aide Relationship Specialty Start Date End Date Cherise Staples MD [address] [place] [address] PCP - General 07/31/10 10/04/19 documented as of this encounter
--- OUTSIDE RECORDS SUMMARY | 2024-08-20 10:52 | XMS_ITS | Encounter Summary ---
Author Organization [facility] Address [facility] [place] [address] Care Team Providers Care Ski Topper Name Role Phone Cherise Staples MD Primary Care Provider [phone] Encounter Details Date Type Department Care Team (Late st Contact Info) Description 06/01/2018 [place] [address] Edyta Arambula Jr., MD [facility] [place] [address] Nephrolithiasis Social History Tobacco Use Types Packs/Day [...] 11:33 am) PATIENT INFO: ID #: ? [id number] ?: ??[birth year] (72 yrs) Name: ? LAZARO CROUCH ? Visit Date: 07/01/2018 11:01 am PERFORMED BY: Performed By: ? Isabel Mason RDMS Attending: ?Lauren SPIVEY, Jane Padilla. Referred By: ?EDYTA ARAMBULA Location: ? [place] SERVICE(S) PROVIDED: ??URETRO - Retroperitoneal Complete - [id number] ? [id number] INDICATIONS: ??stones TECHNIQUE/SCAN QUALITY: Scan Quality: ?? Limited by patient body habitus. COMPARISON: REnal/bladder ultrasound 07/30/16 [facility]; CT abdomen/pelvis 08/29/15 [facility]. RIGHT KIDNEY: Size (cm) ?L: ??13.0 [...] 07/01/2018 11:33 am) PATIENT INFO: ID #: [id number] : [birth year] (72 yrs) Name: LAZARO CROUCH Visit Date: 07/01/2018 11:01 am PERFORMED BY: Performed By: Isabel Mason RDMS Attending: Jane Aguilar MD Referred By: EDYTA ARAMBULA JR Location: [place] SERVICE(S) PROVIDED: URETRO - Retroperitoneal Complete - [id number] INDICATIONS: stones TECHNIQUE/SCAN QUALITY: Scan Quality: Limited by patient body habitus. COMPARISON: REnal/bladder ultrasound 07/30/16 [facility]; CT abdomen/pelvis 08/29/15 from [facility]. RIGHT KIDNEY: Size (cm) L: 13.0 Cortical [...] kidney documented in this encounter Care Teams Ski Topper Relationship Specialty Start Date End Date Cherise Staples MD [address] [place] [address] PCP - General 07/31/10 10/04/19 documented as of this encounter
--- OUTSIDE RECORDS SUMMARY | 2024-08-20 10:52 | XMS_ITS | Encounter Summary ---
Author Organization [facility] Address [facility] [place] [address] Care Team Providers Care Master Coastwise Yacht Name Role Phone Cherise Staples MD Primary Care Provider [phone] Encounter Details Date Type Department Care Team (Late st Contact Info) Description 07/01/2018 Notes Only Weight and Wellness at [facility] [address] [place] [address] [place] [address] Social History Tobacco Use Types Packs/Day Years [...] Hahn MD - 07/01/2018 3:57 PM EDT [facility] patient was in to see family court counsellor today. I asked him to have fingerstick [...] on filedocumented in this encounter Care Teams Master [employer] Yacht Relationship Specialty Start Date End Date Cherise Staples MD [address] [place] [address] PCP - General 07/31/10 10/04/19 documented as of this encounter
--- OUTSIDE RECORDS SUMMARY | 2024-08-20 10:52 | XMS_ITS | Encounter Summary ---
Author Organization [facility] Includes [facility] [address] Care Team Providers Care Novelties Sales Representative Name Role Phone Cherise Staples MD Primary Care Provider [phone] Encounter Details Date Type Department Care Team (Late st Contact Info) Description 03/20/2018 12:00 PM EDT Notes Only Weight and Wellness at [address] [phone] Arrived Social History Tobacco Use Types Packs/Day [...] on filedocumented in this encounter Care Teams Novelties Sales Representative Relationship Specialty Start Date End Date Cherise Staples MD [address] [place] [address] PCP - General 07/31/10 10/04/19 documented as of this encounter
--- OUTSIDE RECORDS SUMMARY | 2024-08-20 10:52 | XMS_ITS | Encounter Summary ---
Author Organization [facility] [place] [address] Care Team Providers Care Attending Physician Name Role Phone Cherise Staples MD Primary Care Provider Encounter Details Date Type Department Care Team (Late st Contact Info) Description 12/26/2017 12:00 PM EDT Notes Only Weight and Wellness at [address] [phone] Arrived Social History Tobacco Use Types Packs/Day [...] on filedocumented in this encounter Care Teams Attending Physician Relationship Specialty Start Date End Date Cherise Staples MD [address] [place] [address] PCP - General 07/31/10 10/04/19 documented as of this encounter
--- OUTSIDE RECORDS SUMMARY | 2024-08-20 10:52 | XMS_ITS | Encounter Summary ---
Author Organization [facility] [place] [address] Care Team Providers Care Brisket Puller Name Role Phone Cherise Staples MD Primary Care Provider [phone] Encounter Details Date Type Department Care Team (Late st Contact Info) Description 03/06/2018 12:00 PM EDT Notes Only Weight and Wellness at [address] [phone] Arrived Social History Tobacco Use Types Packs/Day [...] on filedocumented in this encounter Care Teams Brisket Puller Relationship Specialty Start Date End Date Cherise Staples MD [address] [place] [address] PCP - General 07/31/10 10/04/19 documented as of this encounter
--- OUTSIDE RECORDS SUMMARY | 2024-08-20 10:52 | XMS_ITS | Encounter Summary ---
Author Organization [facility] [place] [address] Care Team Providers Care Funeral Arrangement Director Name Role Phone Nick Nettles MD Primary Care Provider [phone] Encounter Details Date Type Department Care Team (Late st Contact Info) Description 10/27/2020 Ancillary Procedure Radiology Library at [facility] [place] [place] [address] Nick Nettles MD [address] [place], [place] [address] Social History Tobacco Use Types Packs/Day Years [...] DX Hip (10/27/2020 12:00 AM EST) Narrative [facility] - 10/30/2020 2:23 PM EST This exam is auto-finalizing. It's purpose is for storage only. Nick Nettles MD IM FILM LIBRARY ORD ERABLES [place], [place] documented in this encounter Visit Diagnoses Not on filedocumented in this encounter Care Teams Funeral Arrangement Director Relationship Specialty Start Date End Date Nick Nettles MD [address] [place] [address] PCP - General Internal Medicine 10/05/19 documented as of this encounter
--- OUTSIDE RECORDS SUMMARY | 2024-08-20 10:52 | XMS_ITS | Encounter Summary ---
Author Organization [facility] Address [facility] [place] [address] Care Team Providers Care Ui Application Developer Name Role Phone Cherise Staples MD Primary Care Provider [phone] Reason for Visit * Reason Comments Weight Management Follow-up 6 month Encounter Details Date Type Department Care Team (Late st Contact Info) Description 06/15/2018 2:30 PM EDT Office Visit Weight and Wellness at [address] [phone] Kera Hahn MD [facility] [address] Type 2 diabetes mellitus with other circulatory [...] Hahn MD - 06/15/2018 2:30 PM EDT [facility] Visit Patient Name: Jaime Crouch Date of : 1945 Age: [address] Cherise Staples MD / No ref. provider found Thank you for referring Jaime Crouch to the [facility] for consultation regarding obesity. [...] while, not for the last month. Showed criminal attorney what he had been tracking at last visit. 24 hr diet recall: Breakfast: Sausage cee, poached eggs, coffee black. Lunch: Salad with cheese and some meat, cottage cheese. before dinner: cheese and crackers. Dinner: chicken, roasted, no gravy, baked potato with a little butter, string beans, another veg. Pumpkin pie with whipped cream. Almost entirely eliminated alcohol. [facility] Initial Responses 06/15/2018 URICA - Readiness Score [...] the Healthy Lifestyles Program (HLP) at the [facility]. He has lost only 5 lbs (from [...] up with PCP about elevated hemoglobin. Sent [employer] message. TOM: ?? Cont CPAP as prescribed [...] 15 minutes of which were spent in [id number] discussion/counseling re obesity, nutrition and activity as [...] type documented in this encounter Care Teams Ui Application Developer Relationship Specialty Start Date End Date Cherise Staples MD [address] [place] [address] PCP - General 07/31/10 10/04/19 documented as of this encounter
--- OUTSIDE RECORDS SUMMARY | 2024-08-20 10:52 | XMS_ITS | Encounter Summary ---
Author Organization [facility] Address [facility] [place] [address] Care Team Providers Care Mustanger Name Role Phone Cherise Staples MD Primary Care Provider [phone] Reason for Visit * Consultation (Routine) - Closed Specialty Diagnoses / Procedures Referred By Carla soto Referred To Contact Weight and Wellness Diagnoses morbid obesity Nick Nettles MD [address] [place] [address] [facility] [address] [place] [address] Referral ID Status Reason Start Date Expiration Date V isits Requested Visits Authorized [id number] Closed Consult, Test & Treat Connection Center 09/29/2017 09/29/2018 1 1 Encounter Details Date Type Department Care Team (Late st Contact Info) Description 10/02/2017 1:00 PM EST Office Visit Weight and Wellness at [facility] [address] [place] [address] Kera Hahn MD [facility] [place] [address] Class 3 obesity due to excess calories with serious comorbidity and body mass index (BMI) of 60.0 to 69.9 in adult (Primary Dx); Hypertension, unspecified type; TOM on CPAP; Coronary artery disease involving [place] heart, angina presence unspecified, unspecified vessel or [...] Date: 10/02/17 PI/Designee: Dr. Julien Velásquez/Sang Nichols [facility] [id number]: [facility] Biorepository VELOS: [id number] Jaime Crouch??consented to participate in the above-named [...] Nichols Associate Research Coordinator [facility] [place] Pager: [phone] * Kera Hahn MD - 10/02/2017 1:00 [...] a 72 y.o. male referred to the [facility] for an evaluation of obesity. 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 [employer] and [employer]. Father when he was 13. His mother ran the restaurant. 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 [...] that he was over the weight limit. [facility] Initial Responses 10/02/2017 Importance of making [...] to have this surgery. Mobility problems. Had SC, PE, stent. Has sleep apnea. Another sleep study was recommended in [facility] which he will do. Recently cloth picker ordered nuclear ETT but pt was too [...] aerobic. [place] near [place], [place] 24 hr diet recall: Breakfast: 3 Poached eggs, with breakfast sausage, one cee and small slices toast, butter. Coffee, black No AM snack Lunch:ate out. Ate a turkey wrap. And another turkey sandwich with branham, pickles, onions, branham. I did not need that second sandwich! Coffee. Dinner: Persian take out. Stir fried veg, pork and [...] AND RECOMMENDATIONS: Jaime Crouch presents to the [facility] for a consultative visit regarding obesity [...] that obesity is a chronic disease requiring clerical secretary management. Obesity is associated with increased risk [...] in the HealthyLifestyles Program (HLP) at the [facility]. This is a yearlong program during which the patient will receive counseling, education, and support around nutrition, physical activity, and behavioral therapy. ?? Will schedule a baseline nutrition and fitness assessment ?? Follow-up: Our health excellence coach will be in contact with the patient [...] study. He has follow up planned in [facility]. Consented for biobank. Discussed trying to increase activity. Discussed tracking food intake. I spent a total of 60 minutes with the patient 45 minutes of which were spent in buau-[id number] discussion/counseling re obesity, nutrition and activity as [...] Hemoglobin A1c 6.5(H) 4.3 - 5.6 % [facility] [...] [id number] Estimated Average Glucose See note mg/dL [facility] [...] into estimated average glucose values. ??Diabetes Care 2008:31(8):4968-3629. Blood specimen (specimen) 10/09/2017 1:18 PM EST 10/09/2017 3:19 PM EST Narrative Resulting Agency Comment Spec In Lab Kera Hahn MD CHEMISTRY ORDERABLES Performing Organization Address City/[facility]/ZIP Co de Phone Number [facility] [place] [address] * TSH (10/09/2017 1:18 PM EST) Thyroid Stimulating Hormone 1.77 0.27 - 4.20 mlU/ML [facility] Blood specimen (specimen) 10/09/2017 1:18 PM EST 10/09/2017 3:19 PM EST Narrative Resulting Agency Comment Spec In Lab Kera Godoy Selma SPIVEY CHEMISTRY ORDERABLES Performing Organization Address [facility] Co de Phone Number [facility] [place] [address] * (ABNORMAL) CMP w/fasting Glucose (10/09/2017 1:18 PM EST) Glucose Fasting 130(H) 65 - 99 mg/dL [facility] Comment: ?Fasting* Glucose Interpretive Criteria [...] of Diabetes Mellitus, Position Statement from the [place] [employer]. ??Diabetes Care, Volume 33, Supplement 1, Sep 2009 Blood Urea Nitrogen 18 10 - 20 mg/dL [facility] Creatinine 0.92 0.80 - 1.50 mg/dL [facility] Sodium 142 135 - 145 mmol/L [facility] Potassium 4.4 3.5 - 5.0 mmol/L [facility] Comment: Please note: ??Patients with WBC >100,000 may have falsely elevated Potassium levels. ??For accurate Potassium quantification in these patients send serum separator tube (gold top) for subsequent determinations. ??Contact the Clinical Chemistry Laboratory if there are any questions. Chloride 103 98 - 107 mmol/L [facility] Carbon Dioxide 24 22 - 31 mmol/L [facility] Anion Gap 15 5 - 15 mmol/L [facility] Calcium 9.8 8.5 - 10.5 mg/dL [facility] Protein, Total 7.6 6.1 - 8.0 gm/dL [facility] Albumin 3.7 3.2 - 5.2 gm/dL [facility] Aspartate Aminotransferase 25 0 - 39 unit/L [facility] Alanine Aminotransferase 32 0 - 55 unit/L [facility] Alkaline Phosphatase 115 40 - 120 unit/L [facility] Bilirubin, Total 0.7 0.2 - 1.3 mg/dL [facility] Est Glomerular Filtration Rate >60 >=60 [facility] Comment: The reported eGFR should be multiplied by 1.2 for patients. The MDRD is not an appropriate measure of renal function for patients with body mass extremes or in patients with acute kidney failure. http://[employer].Pronutria/DHnkdep http://[employer]ingu/DHMCnkf Blood specimen (specimen) 10/09/2017 1:18 PM EST 10/09/2017 3:19 PM EST Narrative Resulting Agency Comment Spec In Lab Kera Hahn MD CHEMISTRY ORDERABLES [facility] [place] [address] * (ABNORMAL) Lipid Panel (10/09/2017 1:18 PM EST) Cholesterol, Total 130 <=239 mg/dL [facility] Triglyceride 167 <=199 mg/dL [facility] HDL Cholesterol 34(L) >=40 mg/dL [facility] LDL Cholesterol 63 <=190 mg/dL [facility] Cholesterol/HDL Ratio 3.8 ratio [facility] Lipid Interpretation See Note [facility] Comment: Lipid management should be guided by a patient? s ASCVD risk, goals and preferences. ACC/AHA Guidelines recommend high intensity statin if clinical ASCVD or LDL greater than or equal to 190 mg/dL. http://[employer] [facility].com/MXK-DXM-Wafsfyhny Adults aged 40-75 with LDL 70-189 mg/dL should have their 10 year ASCVD risk estimated with the ACC/AHA ASCVD risk box car checker http://tools.acc.org/FNYKY-Utam-Rzixdqcaw/ Statin should be discussed if risk greater [...] Hahn MD CHEMISTRY ORDERABLES Performing Organization Address City/[facility]/ZIP Co de Phone Number [facility] [place] [address] * Biorepository Request (10/09/2017 1:18 PM EST) [facility] Biorepository Hold Sample in lab [facility] Blood specimen (specimen) 10/09/2017 1:18 PM EST 10/10/2017 2:23 PM EST Narrative Resulting Agency Comment Spec In Lab Kera Hahn MD MOLECULAR ORDERABLES Performing Organization Address City/[facility]/ZIP Co de Phone Number [facility] [place] [address] * Biorepository Request (10/09/2017 6:30 AM EST) Biorepository Hold Sample in lab [facility] Stool specimen (specimen) 10/09/2017 6:30 AM EST 10/10/2017 2:38 PM EST Narrative Resulting Agency Comment Spec In Lab Kera Hahn MD MOLECULAR ORDERABLES [facility] [place] [address] documented in this encounter Visit Diagnoses Diagnosis Class 3 obesity due to excess calories with serious comorbidity and body mass index (BMI) of 60.0 to 69.9 in adult- Primary Hypertension, unspecified type TOM on CPAP Obstructive sleep apnea (adult) (pediatric) Coronary artery disease involving [place] heart, angina presence unspecified, unspecified vessel or lesion type (HFpEF) heart failure with preserved ejection fraction Pre-diabetes Other abnormal glucose Abnormal weight gain Abnormal weight gain documented in this encounter Care Teams Mustanger Relationship Specialty Start Date End Date Cherise Staples MD [address] [place] [address] PCP - General 07/31/10 10/04/19 documented as of this encounter
--- OUTSIDE RECORDS SUMMARY | 2024-08-20 10:52 | XMS_ITS | Encounter Summary ---
Author Organization [facility] [place] [address] Care Team Providers Care Operations Officer Afloat Name Role Phone Cherise Staples MD Primary Care Provider [phone] Encounter Details Date Type Department Care Team (Late st Contact Info) Description 01/09/2018 12:00 PM EDT Notes Only Weight and Wellness at [address] [id number] Arrived Social History Tobacco Use Types Packs/Day [...] on filedocumented in this encounter Care Teams Operations Officer Afloat Relationship Specialty Start Date End Date Cherise Staples MD [address] [place] [address] PCP - General 07/31/10 10/04/19 documented as of this encounter
--- OUTSIDE RECORDS SUMMARY | 2024-08-20 10:52 | XMS_ITS | Encounter Summary ---
[place] [address] Care Team Providers Care Snuff Container Inspector Name Role Phone Nick Nettles MD Primary Care Provider [phone] Reason for Visit * Reason Comments Follow-up * Consultation (Routine) - Specialty Diagnoses / Procedures Referred By Contalberto t Referred To Contact Dermatology Diagnoses Disorder of the skin and subcutaneous tissue, unspecified Second opinion regarding use of Efudex Tx for multiple scalp lesions Procedures Consult Nick Nettles MD [address] [place] [address] Raghavendra Dan MD [address] [place] [address], [facility] [place] [address] Referral ID Status Reason Start Date Expiration Date V isits Requested Visits Authorized [id number] 07/29/2019 07/28/2020 1 1 Encounter Details Date Type Department Care Team (Late st Contact Info) Description 10/05/2019 3:45 PM EST Office Visit Dermatology at [address] [address] Raghavendra Dan MD [address] [place] [address], [facility] [place] [address] [place] (actinic keratosis) Social History [...] keratosis documented in this encounter Care Teams Snuff Container Inspector Relationship Specialty Start Date End Date Nick Nettles MD [address] [place] [address] PCP - General Internal Medicine 10/05/19 documented as of this encounter
--- OUTSIDE RECORDS SUMMARY | 2024-08-20 10:52 | XMS_ITS | Encounter Summary ---
Author [facility] [place] [address] Care Team Providers Care Therapeutic Mentor Name Role Phone Nick Nettles MD Primary Care Provider [phone] Encounter Details Date Type Department Care Team (Late st Contact Info) Description 06/06/2020 Orders Only Cardiology at [address] [address] Bruna Goodman APRN [facility] [address] Thoracic aortic aneurysm without rupture; Chronic heart [...] fraction documented in this encounter Care Teams Therapeutic Mentor Relationship Specialty Start Date End Date Nick Nettles MD [address] [place] [address] PCP - General Internal Medicine 10/05/19 documented as of this encounter
--- OUTSIDE RECORDS SUMMARY | 2024-08-20 10:52 | XMS_ITS | Encounter Summary ---
[place] [address] Care Team Providers Care Preliminary School Psychologist Name Role Phone Cherise Staples MD Primary Care Provider [phone] Encounter Details Date Type Department Care Team (Latest Contact Info) Description 02/24/2019 1:40 PM EDT Laboratory Appointment Lab [address] [place] [id number] Chronic heart failure with preserved ejection fraction [...] EDT) Glucose 185 65 - 199 mg/dL [facility] Comment:Diabetes: >=200 mg/d L plus symptoms Blood Urea Nitrogen 20 10 - 20 mg/dL [facility] Creatinine 0.96 0.80 - 1.50 mg/dL [facility] Sodium 138 135 - 145 mmol/L [facility] Potassium 4.6 3.5 - 5.0 mmol/L [facility] Comment: Please note: ??Patients with WBC >100,000 may have falsely elevated Potassium levels. ??For accurate Potassium quantification in these patients send serum separator tube (gold top) for subsequent determinations. ??Contact the Clinical Chemistry Laboratory if there are any questions. Chloride 104 98 - 107 mmol/L [facility] Carbon Dioxide 21(L) 22 - 31 mmol/L [facility] Anion Gap 13 5 - 15 mmol/L [facility] Calcium 9.5 8.5 - 10.5 mg/dL [facility] Est Glomerular Filtration Rate 79 >=60 mL/min/1. 73 m?? [facility] Comment: The eGFR was calculated using the CKD-EPI equation. As with all creatinine based estimates of kidney function, eGFR values calculated with the CKD-EPI equation are not accurate in patients with acute kidney failure, extremes of body mass or the acutely ill. http://[employer]/AMERICAN HOSPITAL ASSOCIATIONnkf eGFR 92 >=60 mL/min/1. 73 m?? [facility] Comment: The eGFR was calculated using the CKD-EPI equation. As with all creatinine based estimates of kidney function, eGFR values calculated with the CKD-EPI equation are not accurate in patients with acute kidney failure, extremes of body mass or the acutely ill. http://[employer]/AMERICAN HOSPITAL ASSOCIATIONnkf Blood specimen (specimen) 02/24/2019 1:43 PM EDT 02/24/2019 1:50 PM EDT Narrative Resulting Agency Comment Spec In Lab Bruna Goodman APRN CHEMISTRY ORDERABLES [facility] [place] [address] * (ABNORMAL) pro-Brain Natriuretic Peptide (02/24/2019 1:43 PM EDT) NT-proBNP 333(H) <=125 pg/mL [facility] Blood specimen (specimen) 02/24/2019 1:43 PM EDT 02/24/2019 1:50 PM EDT Narrative Resulting Agency Comment Spec In Lab Bruna Goodman STITCHER TAPE CONTROLLED MACHINE [place] [address] documented in this encounter Visit Diagnoses Diagnosis Chronic heart failure with preserved ejection fraction documented in this encounter Care Teams Preliminary School Psychologist Relationship Specialty Start Date End Date Cherise Staples MD [address] [place] [address] PCP - General 07/31/10 10/04/19 documented as of this encounter
--- OUTSIDE RECORDS SUMMARY | 2024-08-20 10:52 | XMS_ITS | Encounter Summary ---
Author Organization [facility] [place] [address] Care Team Providers Care Mixer Whipped Topping Name Role Phone Nick Nettles MD Primary Care Provider [phone] Encounter Details Date Type Department Care Team (Late st Contact Info) Description 10/26/2020 Orders [place] [address] Nanette Cross APRN [facility] [place] [address] Ulcer of lower extremity, unspecified laterality, unspecified [...] stage documented in this encounter Care Teams Mixer Whipped Topping Relationship Specialty Start Date End Date Nick Nettles MD [address] [place] [address] PCP - General Internal Medicine 10/05/19 documented as of this encounter
--- OUTSIDE RECORDS SUMMARY | 2024-08-20 10:52 | XMS_ITS | Encounter Summary ---
[place] [address] Care Team Providers Care Setter Up Name Role Phone Cherise Staples MD Primary Care Provider [phone] Encounter Details Date Type Department Care Team (Late st Contact Info) Description 09/30/2017 [place] [id number] Ginette Salvador Social History Tobacco Use Types [...] the referral and send it to the [facility]. I also told him that I would follow up withhis PCP's office to let them know. documented in this encounter Plan of Treatment Not on file documented as of this encounter Visit Diagnoses Not on filedocumented in this encounter Care Teams Setter Up Relationship Specialty Start Date End Date Cherise Staples MD [address] [place] [address] PCP - General 07/31/10 10/04/19 documented as of this encounter
--- OUTSIDE RECORDS SUMMARY | 2024-08-20 10:52 | XMS_ITS | Encounter Summary ---
Author Organization [facility] Address [facility] [place] [address] Care Team Providers Care Talent Coordinator Name Role Phone Cherise Staples MD Primary Care Provider [phone] Reason for Visit * Reason Comments Follow-up Encounter Details Date Type Department Care Team (Late st Contact Info) Description 02/17/2017 2:40 PM EDT Office Visit Cardiology at [address] [address] Slim Summers MD [facility] [place] [address] (HFpEF) heart failure with preserved ejection fraction; SOB (shortness of breath); Coronary artery disease involving [place] heart, angina presence unspecified, unspecified vessel or [...] Summers MD - 02/17/2017 2:40 PM EDT [facility] Failure [facility] Patient Name: Jaime [...] became progressively SOB and was taken to [facility] where he was found to be in [...] ??? ASCVD (arteriosclerotic cardiovascular disease) 1993 first CA 1992, stent to LAD in 2006 ??? [...] Abdomen: Protuberant, soft and non-tender, no ascites. FLY RAISER LOCKSTITCH: Alert and oriented x3. Most recent cardiology [...] Shortness of breath Coronary artery disease involving [place] heart, angina presence unspecified, unspecified vessel or lesion type Persistent atrial fibrillation Atrial fibrillation documented in this encounter Care Teams Talent Coordinator Relationship Specialty Start Date End Date Cherise Staples MD [address] [place] [address] PCP - General 07/31/10 10/04/19 documented as of this encounter
--- OUTSIDE RECORDS SUMMARY | 2024-08-20 10:52 | XMS_ITS | Encounter Summary ---
Author Organization [facility] Address [facility] [place] [address] Care Team Providers Care Enterprise Security Architect Name Role Phone Cherise Staples MD Primary Care Provider [phone] Encounter Details Date Type Department Care Team (Latest Contact Info) Description 10/09/2017 1:00 PM EST Laboratory Appointment Lab at [address] [phone] Coronary artery disease involving apache heart, angina presence unspecified, unspecified vessel or [...] 1:18 PM EST Coronary artery disease involving apache heart, angina presence unspecified, unspecified vessel or lesion type TSH Routine 10/09/2017 1:18 PM EST Abnormal weight gain Class 3 obesity due to excess calories with serious comorbidity and body mass index (BMI) of 60.0 to 69.9 in adult Coronary artery disease involving apache heart, angina presence unspecified, unspecified vessel or lesion type HEMOGLOBIN A1C Routine 10/09/2017 1:18 PM EST Coronary artery disease involving apache heart, angina presence unspecified, unspecified vessel or lesion type Pre-diabetes LIPID PANEL (REFLEX DIRECT LDL) Routine 10/09/2017 1:18 PM EST Coronary artery disease involving apache heart, angina presence unspecified, unspecified vessel or lesion type BIOREPOSITORY REQUEST Routine 10/09/2017 6:30 AM EST Class 3 obesity due to excess calories with serious comorbidity and body mass index (BMI) of 60.0 to 69.9 in adult documented in this encounter Results * Biorepository Request (10/09/2017 1:18 PM EST) Pathologist [facility] Biorepository Hold Sample in lab [facility] Blood specimen (specimen) 10/09/2017 1:18 PM EST 10/10/2017 2:23 PM EST Narrative Resulting Agency Comment Spec In Lab Kera Hahn MD MOLECULAR ORDERABLES [facility] [place] [address] * (ABNORMAL) Hemoglobin A1c (10/09/2017 1:18 PM EST) [facility] Hemoglobin A1c 6.5(H) 4.3 - 5.6 % [facility] Comment: Reference Range: 4.3 - [...] Mellitus, Diabetes Care 2013; 36: Suppl. 1, X97-74 Estimated Average Glucose See note mg/dL [facility] Comment: Estimated Average Glucose not [...] into estimated average glucose values. ??Diabetes Care 2008:31(8):4215-7422. Blood specimen (specimen) 10/09/2017 1:18 PM EST 10/09/2017 3:19 PM EST Narrative Resulting Agency Comment Spec In Lab Kera Hahn MD CHEMISTRY ORDERABLES Performing Organization Address [facility] Co de Phone Number [facility] [place] [address] * TSH (10/09/2017 1:18 PM EST) Thyroid Stimulating Hormone 1.77 0.27 - 4.20 mlU/ML [facility] Blood specimen (specimen) 10/09/2017 1:18 PM EST 10/09/2017 3:19 PM EST Narrative Resulting Agency Comment Spec In Lab Kera Hahn MD CHEMISTRY ORDERABLES Performing Organization Address [facility] de Phone Number [facility] [place] [address] * (ABNORMAL) CMP w/fasting Glucose (10/09/2017 1:18 PM EST) Glucose Fasting 130(H) 65 - 99 mg/dL [facility] Comment: ?Fasting* Glucose Interpretive Criteria [...] of Diabetes Mellitus, Position Statement from the [place] [employer]. ??Diabetes Care, Volume 33, Supplement 1, Sep 2009 Blood Urea Nitrogen 18 10 - 20 mg/dL [facility] Creatinine 0.92 0.80 - 1.50 mg/dL [facility] Sodium 142 135 - 145 mmol/L [facility] Potassium 4.4 3.5 - 5.0 mmol/L [facility] Comment: Please note: ??Patients with WBC >100,000 may have falsely elevated Potassium levels. ??For accurate Potassium quantification in these patients send serum separator tube (gold top) for subsequent determinations. ??Contact the Clinical Chemistry Laboratory if there are any questions. Chloride 103 98 - 107 mmol/L [facility] Carbon Dioxide 24 22 - 31 mmol/L [facility] Anion Gap 15 5 - 15 mmol/L [facility] Calcium 9.8 8.5 - 10.5 mg/dL [facility] Protein, Total 7.6 6.1 - 8.0 gm/dL [facility] Albumin 3.7 3.2 - 5.2 gm/dL [facility] Aspartate Aminotransferase 25 0 - 39 unit/L [facility] Alanine Aminotransferase 32 0 - 55 unit/L [facility] Alkaline Phosphatase 115 40 - 120 unit/L [facility] Bilirubin, Total 0.7 0.2 - 1.3 mg/dL [facility] Est Glomerular Filtration Rate >60 >=60 [facility] Comment: The reported eGFR should be multiplied by 1.2 for patients. The MDRD is not an appropriate measure of renal function for patients with body mass extremes or in patients with acute kidney failure. http://[employer] Loco [employer].Centric Software/DHnkdep http://[employer].Centric Software/DHMCnkf Blood specimen (specimen) 10/09/2017 1:18 PM EST 10/09/2017 3:19 PM EST Narrative Resulting Agency Comment Spec In Lab Kera Hahn MD CHEMISTRY ORDERABLES Performing Organization Address City/[facility] Co de Phone Number [facility] [place] [address] * (ABNORMAL) Lipid Panel (10/09/2017 1:18 PM EST) Cholesterol, Total 130 <=239 mg/dL [facility] Triglyceride 167 <=199 mg/dL [facility] HDL Cholesterol 34(L) >=40 mg/dL [facility] LDL Cholesterol 63 <=190 mg/dL [facility] Cholesterol/HDL Ratio 3.8 ratio [facility] Lipid Interpretation See Note [facility] Comment: Lipid management should be guided by a patient? s ASCVD risk, goals and preferences. ACC/AHA Guidelines recommend high intensity statin if clinical ASCVD or LDL greater than or equal to 190 mg/dL. http://[employer] L[employer].com/HXA-UMN-Etrzpfehl Adults aged 40-75 with LDL 70-189 mg/dL should have their 10 year ASCVD risk estimated with the ACC/AHA ASCVD risk mechanical estimator http://tools.acc.org/OQNDO-Vtcj-Ympjypisj/ Statin should be discussed if risk greater [...] Hahn MD CHEMISTRY ORDERABLES Performing Organization Address City/[facility]/ZIP Co de Phone Number [facility] [place] [address] * Biorepository Request (10/09/2017 6:30 AM EST) Biorepository Hold Sample in lab [facility] Stool specimen (specimen) 10/09/2017 6:30 AM EST 10/10/2017 2:38 PM EST Narrative Resulting Agency Comment Spec In Lab Kera Hahn MD MOLECULAR ORDERABLES [facility] [place] [address] documented in this encounter Visit Diagnoses Diagnosis Coronary artery disease involving apache heart, angina presence unspecified, unspecified vessel or lesion type Abnormal weight gain Abnormal weight gain Class 3 obesity due to excess calories with serious comorbidity and body mass index (BMI) of 60.0 to 69.9 in adult Pre-diabetes Other abnormal glucose documented in this encounter Care Teams Enterprise Security Architect Relationship Specialty Start Date End Date Cherise Staples MD [address] [place] [address] PCP - General 07/31/10 10/04/19 documented as of this encounter
--- OUTSIDE RECORDS SUMMARY | 2024-08-20 10:52 | XMS_ITS | Encounter Summary ---
[place] [address] Care Team Providers Care Church History Professor Name Role Phone Nick Nettles MD Primary Care Provider [phone] Encounter Details Date Type Department Care Team (Late st Contact Info) Description 10/30/2020 [place] [phone] Irma Valdovinos, RN Social History Tobacco Use [...] on filedocumented in this encounter Care Teams Church History Professor Relationship Specialty Start Date End Date Nick Nettles MD [address] [place] [address] PCP - General Internal Medicine 10/05/19 documented as of this encounter
--- OUTSIDE RECORDS SUMMARY | 2024-08-20 10:52 | XMS_ITS | Encounter Summary ---
Author Organization [facility] [place] [address] Care Team Providers Care Stencil Printer Name Role Phone Cherise Staples MD Primary Care Provider [phone] Reason for Referral * Diagnostic Test (Routine) - Closed Specialty Diagnoses / Procedures Referred By Carla soto Referred To Contact Cardiology Diagnoses (HFpEF) heart failure with preserved ejection fraction Dilated aortic root Procedures Echocardiogram Transthoracic(Leb) Bruna Goodman APRN [facility] [place] [address] [facility] Non-[place] [address] Referral ID Status Reason Start Date Expiration Date V isits Requested Visits Authorized [id number] Closed Specialty Service Requested 01/16/2018 01/16/2019 1 1 Reason for Visit * Reason Comments Follow-up Encounter Details Date Type Department Care Team (Late st Contact Info) Description 01/16/2018 2:00 PM EDT Office Visit Cardiology at [address] [phone] Bruna Goodman APRN [facility] [address] (HFpEF) heart failure with preserved [...] this encounter Progress Notes * Bruna Goodman, MANAGER FLIGHT - 01/16/2018 2:00 PM EDT [facility] Advanced Heart Failure Clinic Patient Name: Jaime [...] ??? ASCVD (arteriosclerotic cardiovascular disease) 1993 first [place] 1992, stent to [place] in 2006 ??? [...] Abdomen: Protuberant, soft and non-tender, no ascites. GROUNDS MAINTENANCE SUPERVISOR: Alert and oriented x3. Most recent cardiology [...] ?RAINA WILLIS ?(Age): 1945(72y) Med Rec#: ? [id number] ?Sex: ?M ? Site Loc: ? [facility] ?Ht / Wt: ??178(cm)/196(kg) Pt. Loc: ?Echo Lab ?BSA: ?2.9 Study Date: ?? 02/27/2018 ?Pt. Type: Outpatient Tape: ? Referring: ITALO Reading: Carlos Manuel Rodriguez ([id number]) Dairy Helper: Eleonora Watt [facility] Diagnosis: *Heart failure, unspecified (I50.9) Rhythm: ? [...] ? Mid-Inferior ?Normal ? Mid-Inferoseptal ?Normal ? Thayer-Septal ? Normal ? Thayer-Anterior ? Normal ? Thayer-Lateral ?Normal ? Thayer-Inferior ? Normal ? Thayer-Tip ?Normal ? This report has been electronically signed by: Carlos Manuel Rodriguez MD ? 02/27/2018 12:33:00 Images reviewed and interpretation verified [facility] Cardiac Ultrasound Laboratory Procedure Note Carlos Manuel Rodriguez MD - 02/27/2018 Procedure: Transthoracic Echocardiogram Patient: RAINA GREENBERG(Age): 1945(72y) Med Rec#: [id number] Sex: M Site Loc: [facility] Ht / Wt: 178(cm)/196(kg) Pt. Loc: Echo Lab BSA: 2.9 Study Date: 02/27/2018 Pt. Type: Outpatient Tape: Referring: ITALO Reading: Carlos Manuel Rodriguez ([id number]) Dairy Helper: Eleonora Watt [facility] Diagnosis: *Heart failure, unspecified (I50.9) Rhythm: A-Fib [...] Normal Mid-Posterolateral Hypokinetic Mid-Inferior Normal Mid-Inferoseptal Normal Thayer-Septal Normal Thayer-Anterior Normal Thayer-Lateral Normal Thayer-Inferior Normal Thayer-Tip Normal This report has been electronically signed by: Carlos Manuel Rodriguez MD 02/27/2018 12:33:00 Images reviewed and interpretation verified [facility] Cardiac Ultrasound Laboratory Bruna Goodman APRN ECHO ORDERABLES * (ABNORMAL) Hemoglobin A1c (01/16/2018 12:01 PM EDT) Hemoglobin A1c 6.4(H) 4.3 - 5.6 % [facility] [...] S67-74 Estimated Average Glucose See note mg/dL [facility] [...] into estimated average glucose values. ??Diabetes Care 2008:31(8):0666-2057. Blood specimen (specimen) 01/16/2018 12:01 PM EDT 01/16/2018 12:56 PM EDT Narrative Resulting Agency Comment Spec In Lab Bruna Goodman APRN CHEMISTRY ORDERABLES Performing Organization Address [facility] Co de Phone Number [facility] [place] [address] * (ABNORMAL) pro-Brain Natriuretic Peptide (01/16/2018 12:01 PM EDT) NT-proBNP 422(H) <=125 pg/mL [facility] Blood specimen (specimen) 01/16/2018 12:01 PM EDT 01/16/2018 12:57 PM EDT Narrative Resulting Agency Comment Spec In Lab Bruna Goodman MANAGER FLIGHT CHEMISTRY ORDERABLES Performing Organization Address [facility] Co de Phone Number [facility] [place] [address] * (ABNORMAL) Basic Metabolic Panel (non-fasting) (01/16/2018 12:01 PM EDT) Glucose 122 65 - 199 mg/dL [facility] Comment:Diabetes: >=200 mg/d L plus symptoms Blood Urea Nitrogen 28(H) 10 - 20 mg/dL [facility] Creatinine 0.94 0.80 - 1.50 mg/dL [facility] Sodium 142 135 - 145 mmol/L [facility] Potassium 4.3 3.5 - 5.0 mmol/L [facility] Comment: Please note: ??Patients with WBC >100,000 may have falsely elevated Potassium levels. ??For accurate Potassium quantification in these patients send serum separator tube (gold top) for subsequent determinations. ??Contact the Clinical Chemistry Laboratory if there are any questions. Chloride 104 98 - 107 mmol/L [facility] Carbon Dioxide 22 22 - 31 mmol/L [facility] Anion Gap 16(H) 5 - 15 mmol/L [facility] Calcium 9.4 8.5 - 10.5 mg/dL [facility] Est Glomerular Filtration Rate >60 >=60 [facility] Comment: The reported eGFR should be multiplied by 1.2 for patients. The MDRD is not an appropriate measure of renal function for patients with body mass extremes or in patients with acute kidney failure. http://Memoright.Teramind/DHnkdep http://Eco Market/DHMCnkf Blood specimen (specimen) 01/16/2018 12:01 PM EDT 01/16/2018 12:57 PM EDT Narrative Resulting Agency Comment Spec In Lab Bruna Goodman APRN CHEMISTRY ORDERABLES [facility] [place] [address] documented in this encounter Visit Diagnoses Diagnosis (HFpEF) heart failure with preserved ejection fraction Type 2 diabetes mellitus with complication, without long-term current use of insulin Dilated aortic root Thoracic aortic ectasia Essential hypertension Unspecified essential hypertension (HFpEF) heart failure with preserved ejection fraction Dilated aortic root Thoracic aortic ectasia documented in this encounter Care Teams Stencil Printer Relationship Specialty Start Date End Date Cherise Staples MD [address] [place] [address] PCP - General 07/31/10 10/04/19 documented as of this encounter
--- OUTSIDE RECORDS SUMMARY | 2024-08-20 10:53 | XMS_ITS | Encounter Summary ---
[place] [address] Care Team Providers Care Mixer Operator Helper Hot Metal Name Role Phone Cherise Staples MD Primary Care Provider [phone] Reason for Visit * Reason Comments Wound Care both legs Encounter Details Date Type Department Care Team (Late st Contact Info) Description 11/06/2015 10:00 AM EST Office [place] [phone] Sanjiv Emanuel Venous stasis ulcer of left [...] pain, being managed with oxycodone. Treated at [facility]. He had ulcer in the [...] pressure Relieve pressure Debride non-viable tissue Goals: intermission coordinator goals (11/28/15) 1. (L)LE Wounds healed 2. [...] to be seen in conjunction with RN, ACQUISITION PROFESSIONAL, CWCN in [facility]. Pt to look up donning devices for stockings online. DME: will ask POST MANAGER to order Caralon Graduated Compression Multi-layer stocking system 30-40 mmHg, color Black, size E Regular via TWS. This was not done @ last visit, therefore will ask POST MANAGER to place order today. Pt to bring [...] extremity documented in this encounter Care Teams Mixer Operator Helper Hot Metal Relationship Specialty Start Date End Date Cherise Staples MD [address] [place] [address] PCP - General 07/31/10 10/04/19 documented as of this encounter
--- OUTSIDE RECORDS SUMMARY | 2024-08-20 10:53 | XMS_ITS | Encounter Summary ---
[place] [address] Care Team Providers Care Explosive Operator Name Role Phone Cherise Staples MD Primary Care Provider [phone] Reason for Visit * Reason Comments Dressing Change venous ulcer Encounter Details Date Type Department Care Team (Late st Contact Info) Description 11/16/2015 9:30 AM EST Office [place] [phone] Sanjiv Emanuel Venous stasis ulcer of left [...] pain, being managed with oxycodone. Treated at [facility]. He had ulcer in the right leg, [...] 2 new wounds. I went to the [facility] near home on Friday (11/13/15) & [...] (I) ASSESSMENT: Pt has been followed in [facility] for (L)LE wounds & (B)LE wounds [...] pressure Relieve pressure Debride non-viable tissue Goals: rat exterminator goals (11/28/15) 1. (L)LE Wounds healed--MET as [...] to be seen in conjunction with RN, ASSOCIATE PROFESSOR OF PHILOSOPHY, CWCN in [facility]. Will return to 2x/wk visits in [facility]. Pt has ordered donning device for stockings online. DME: SALES ORDER ADMINISTRATOR ordered Caralon Graduated Compression Multi-layer stocking system [...] extremity documented in this encounter Care Teams Explosive Operator Relationship Specialty Start Date End Date Cherise Staples MD [address] [place] [address] PCP - General 07/31/10 10/04/19 documented as of this encounter
--- OUTSIDE RECORDS SUMMARY | 2024-08-20 10:53 | XMS_ITS | Encounter Summary ---
Author Organization [facility] [place] [address] Care Team Providers Care Shoe Treer Name Role Phone Cherise Staples MD Primary Care Provider [phone] Encounter Details Date Type Department Care Team (Late st Contact Info) Description 10/12/2015 Orders [place] [address] Dorothea Cantor APRN [facility] [address] Venous stasis ulcer of left lower extremity [...] Text Report Department: Vascular Surgery Lab Patient: [id number] (LAZARO CROUCH) CPT: 92678 ICD10: L97.229;I83.029 Referring Physician: VERN FONTANEZ ?? [...] extremity documented in this encounter Care Teams Shoe Treer Relationship Specialty Start Date End Date Cherise Staples MD [address] [place] [address] PCP - General 07/31/10 10/04/19 documented as of this encounter
--- OUTSIDE RECORDS SUMMARY | 2024-08-20 10:53 | XMS_ITS | Encounter Summary ---
Author Organization [facility] Address [facility] [place] [address] Care Team Providers Care Die Baker Name Role Phone Cherise Staples MD Primary Care Provider [phone] Encounter Details Date Type Department Care Team (Latest Contact Info) Description 07/30/2016 10:58 AM EST - 07/30/2016 11:59 PM [facility] Hospital [place] [address] Edyta Arambula Jr., MD [facility] [place] [address] Nephrolithiasis Discharge Disposition: Home Social History Tobacco [...] 11:44 am) PATIENT INFO: ID #: ? [id number] ?: ??[birth year] (70 yrs) Name: ? LAZARO CROUCH ? Visit Date: 07/30/2016 11:20 am PERFORMED BY: Performed By: ? Manny PERALTA, ??Mckenna Attending: ?Miguel SPIVEY, Ryan Sanchez. Referred By: ?EDYTA ARAMBULA Location: ? [place] SERVICE(S) PROVIDED: ??URETRO - Retroperitoneal Complete - [id number] ? [id number] INDICATIONS: ??Nephroithiasis COMPARISON: Ultrasound: 01/05/14 RIGHT KIDNEY: [...] 07/30/2016 11:44 am) PATIENT INFO: ID #: [id number] : [birth year] (70 yrs) Name: LAZARO CROUCH Visit Date: 07/30/2016 11:20 am PERFORMED BY: Performed By: Mckenna Bryant RDMS Attending: Ryan Rivera MD Referred By: EDYTA ARAMBULA Location: [place] SERVICE(S) PROVIDED: URETRO - Retroperitoneal Complete - [id number] INDICATIONS: Nephroithiasis COMPARISON: Ultrasound: 01/05/14 RIGHT KIDNEY: [...] kidney documented in this encounter Care Teams Die Baker Relationship Specialty Start Date End Date Cherise Staples MD [address] [place] [address] PCP - General 07/31/10 10/04/19 documented as of this encounter
--- OUTSIDE RECORDS SUMMARY | 2024-08-20 10:53 | XMS_ITS | Encounter Summary ---
Author Organization [facility] [address] Care Team Providers Care Tray Line Worker Name Role Phone Cherise Staples MD Primary Care Provider [phone] Reason for Visit * Reason Comments Nephrolithiasis Encounter Details Date Type Department Care Team (Late st Contact Info) Description 07/30/2016 1:00 PM EST Office [place] [address] Edyta Arambula Jr., MD [facility] [place] [address] Nephrolithiasis Social History Tobacco Use Types Packs/Day [...] urination. Past medical history: urolithiasis, obesity, CAD ([place] age 52), HTN, h/o gout; atrial fibrillation Past surgical history: bilateral hip replacements (5 years ago), cardiac stent placement, appendectomy, right pcnl 2008, circumcision in [facility] several years ago, cholecystectomy 08/2015 requiring brief [...] kidney documented in this encounter Care Teams Tray Line Worker Relationship Specialty Start Date End Date Cherise Staples MD [address] [place] [address] PCP - General 07/31/10 10/04/19 documented as of this encounter
--- OUTSIDE RECORDS SUMMARY | 2024-08-20 10:53 | XMS_ITS | Encounter Summary ---
Author Organization [facility] Address [facility] [address] Care Team Providers Care Dishwasher Busser Name Role Phone Cherise Staples MD Primary Care Provider [phone] Reason for Visit * Reason Comments Abdominal Pain * Auth/Cert - Closed Specialty Diagnoses / Procedures Referred By Carla soto Referred To Contact Diagnoses Cholecystitis Pain Atrial fibrillation, unspecified cholangoangitis Procedures ERCP Referral ID Status Reason Start Date Expiration Date Visits Re quested Visits Authorized [id number] Closed 1 1 Encounter Details Date Type Department Care Team (Latest Contact Info) Description 08/30/2015 12:22 AM EST - 09/02/2015 1:44 PM [facility] Hospital Encounter [address] [place] [address] Marla May MD [facility] [place] [address] Delroy Chu MD [facility] [place] [address] Pain; Atrial fibrillation, unspecified; Abdominal pain, RUQ [...] please contact your inpatient physician through the [facility] Histology Teacher . Issues afterhours and on weekends will [...] prompted him to see care at the [facility]. There he was noted to have a WBC of 18, elevated LFTs, amylase and lipase. A CT scan was obtained which noted multiple gallstones. Pt was transferred to [facility] for further evaluation and care. Of note [...] 101.3 F. The number for questions is [phone] before 5 PM weekdays and [phone] after 5 PM and weekends. Pain Medication: [...] will be mailed to you. Please call [phone] (clinic number for appointments) to confirm date and time of your appointment if you do not receive your apointment in 3 weeks. General Instructions None Provider Contact Information: CHERISE STAPLES MD BOX [facility] [id number] Discharge References/Attachments None documented in this encounter [...] 101.3 F. The number for questions is [phone] before 5 PM weekdays and [phone] after 5 PM and weekends. Pain Medication: [...] will be mailed to you. Please call [phone] (clinic number for appointments) to confirm date [...] 1240: ICU bed requested through [facility] Home Inspector 1252: Hold LR at [address] [...] placed on Boarder Status awaiting Transport. 1402: Home Inspector called to supply additional resources to transport [...] of two midnights or is on the [facility] inpatient only procedure list (status C) due [...] ### ??? DILTiazem 60 mg Oral Q6H KLYEE ### ??? lisinopril 20 mg Oral Daily [...] of two midnights or is on the [facility] inpatient only procedure list (status C) due [...] needs CM available Annemarie Diop RN CCM #[id number] * Howard Moya MD - 08/31/2015 10:37 AM EST Gastroenterology & Hepatology Progress Note Jaime Crouch 1945 [id number] PCP: CHERISE STAPLES MD Date of Admission: [...] ERCP performed by Nick Broussard MD at [facility] Medications Scheduled Meds: ??? ampicillin-sulbactam [...] the OR tomorrow. Howard Moya MD, MS hair preparer Section of Gastroenterology and Hepatology * Makenzie [...] 7:07 PM EST 1899- Received report from [facility]. Pt awake alert VSS, moving all extremities, [...] EST Office of Care Management (OCM) / Telephone Plant Power Operator(CM)/ Initial Assessment Discussed patient with Provider Team and with director of midwifery/staff midwife. Reviewed record. REASON for HOSPITALIZATION: patient admitted on 08/29/15 in transfer from [facility]. Patient presented to ED with RUQ [...] Lili Peters DO S/p Vit K at [facility] - INR sub therapeutic - on lovenox bridge until INR 2-3 Previous Version TOM on CPAP G47.33 09/09/2014 Morbid obesity E66.01 09/20/2014 Hypertension (HTN) I10 09/20/2014 CAD I25.10 09/20/2014 Nonsustained ventricular tachycardia I47.2 09/20/2014 PREVIOUS FUNCTIONAL STATUS: independent CURRENT FUNCTIONAL STATUS: ambulating with assistance SOCIAL / FAMILY SUPPORTS: Leah, family/friends ADVANCE DIRECTIVES: On file here at [facility] HEALTH /PRESCRIPTION COVERAGE: Medicare (parts A and B) and [place] BC/BS [employer] CURRENT HOME/COMMUNITY SERVICES/EQUIPMENT: DME: Patient uses CPAP at home IMMIGRATION LAW SPECIALIST REFERRAL: not needed at this time PRIMARY CARE PHYSICIAN: CHERISE STAPLES MD [address] / [place] [address] DISCHARGE NEEDS: Discharge needs not known at [...] on CT scan. He was admitted to [facility] in September of this year for cholangitis [...] ERCP performed by Nick Broussard MD at [facility] ??? Pro ercp,diagnostic N/A 08/30/2015 ERCP performed by Nick Broussard MD at [facility] MA[facility] OR Allergies: No Known Allergies [...] %] ABG: No results for input(s): PHART, GBJ6VTR, PO2ART, REC4QFM in the last 168 hours. Physical Exam: [...] -- 33 No results for input(s): PHART, EWM2PQP, PO2ART, AXK5IDH, BEART in the last 168 hours. ECG [...] tylenol and dilaudid IV, will add dilaudid groundskeeping maintenance worker if needed or if diet is advanced [...] from the original note were not included. [facility] Department of Surgery History of Present [...] prompted him to see care at the [facility] ED. There he was noted to have a WBC of 18, elevated LFTs, amylase and lipase. A CT scan was obtained which noted multiple gallstones. Pt was transferred to [facility] for further evaluation and care. Of note [...] pain resolved on the trip down from [facility], no pain on exam at present ?? [...] a 69 y.o. male who presents to [facility] with increasing abdominal pain History of Present [...] Chambers MD - 09/01/2015 12:30 PM EST [facility] Operative Note Patient Name: Jaime Crouch : [id number] MR#: [id number] Case Date: 09/01/2015 Surgeon: Surgeon(s) and Role: [...] Operative Note Patient Name: Jaime Crouch : [id number] MR#: [id number] Case Date: 09/01/2015 Surgeon: Surgeon(s) and Role: [...] replaced after wound cleansed with dermal wound curtain cleaner. Pulses +1 doppler, +2 pitting edema [...] Nutrition Interventions: refer to dietitian Current bed: [facility] Assessment: Venous stasis ulceration with [...] 2. Apply Mepilex Transfer over wound (PS# [id number]) 3. Cover with ABD Pad or burn [...] A referral can be made by calling [phone] or by placing a [facility] wound referral. Discussed plan with: /JODY/PA: Dr. Heredia RN: Zahra Please contact PAUL JOHNSON RN on pager [phone] or the wound care team at [phone] or pager [phone] with skin and wound care concerns or [...] CONSULTATION Initial Consult Note Jaime Crouch 1945 [id number] Requesting Provider: Team Surgery REASON FOR CONSULTATION [...] occurred less frequently. When he presented to [facility] he wasfound to have WBC 18, elevated [...] this admission. Continue amp/sul. Sarika Saini MD Remote Recruitercomputer forensics technician Section of Gastroenterology [place] [address] * Consult Note - Evette Young RCP [...] hospital, diltizem IV push was given at [facility] ED. Based on his heart rate jumping [...] AM EST Patient arrives by EMS from [facility] after having had abdominal pain this morning that increased as theday went on. Patient was diagnosed with cholecystitis at [facility] and comes here tonight to consult with surgery. A/Ox4, respirations even and unlabored. documented in this encounter Plan of Treatment Pending Results Name Type Priority Associated Diagnoses Date /Time Transfuse thawed plasma Blood Bank Routine 08/30/2015 2:49 PM EST FILM LIBRARY-FLUORO OR [id number] ONL Imaging Routine 08/30/2015 5:4 7 PM EST Scheduled Orders Name Type Priority Associated Diagnoses Orde r Schedule FILM LIBRARY-FLUORO OR [id number] ONL Imaging Routine Once PRN (f or Radiant use) for 1 Occurrences starting 08/30/2015 until 08/30/2015 FILM LIBRARY-FLUORO OR [id number] ONL Imaging Routine Once PRN (f or Radiant use) for 1 Occurrences starting 09/01/2015 until 09/01/2015 documented as of this encounter Procedures Procedure Name Priority Date/Time Associated Diagnosis Comments LAB SCAN 09/03/2015 12:00 AM EST ELECTRICAL INSTRUMENT TECHNICIAN SCAN 09/03/2015 12:00 AM EST ECG SCAN [...] SCAN EXT O RDR/RSLT * SCAN DOC: ELECTRICAL INSTRUMENT TECHNICIAN (09/03/2015 12:00 AM EST) Anatomical Region Laterality [...] of Diabetes Mellitus, Position Statement from the [place] [employer]. ??Diabetes Care, Volume 33, Supplement 1, Sep 2009 Blood Urea Nitrogen 16 10 - 20 mg/dL CERNER MILLENNIUM Creatinine 0.90 0.80 - 1.50 mg/dL CERNER MILLENNIUM Comment: Please note that the pediatric reference intervals supplied above were not validated at [facility]. Results from pediatric patients should be interpreted [...] the following links into your internet browser. [email or web address] Blood specimen (specimen) 09/02/2015 2:10 AM EST 09/02/2015 2:23 AM EST Narrative Resulting Agency Comment Spec In Lab Delroy Chu MD CHEMISTRY ORDERABLES Performing Organization Address [facility] Phone Number [facility] * (ABNORMAL) Phosphorus (09/02/2015 2:10 AM EST) Phosphorus 2.4(L) 2.5 - 4.5 mg/dL CERNER MILLENNIUM Blood specimen (specimen) 09/02/2015 2:10 AM EST 09/02/2015 2:23 AM EST Narrative Resulting Agency Comment Spec In Lab Delroy Chu MD CHEMISTRY ORDERABLES Performing Organization Address [facility] Co de Phone Number [facility] * (ABNORMAL) Hemogram (09/02/2015 2:10 AM [...] mmHg CERNER MILLENNIUM Comment:Noted by electrical instrument technician. PO2, Arterial 271(H) 85 - 104 [...] MD POINT OF CARE TEST O RDERABLES [facility] * Surgical Pathology Report (09/01/2015 11:56 AM EST) Final Diagnosis [id number] ? Location: [facility]; [facility]; The signing pathologist has (i) examined the [...] fundus. (R2) ??kef/shb 09/05/2015 11:18 AM EST [facility] GALLBLADDER STRUCTURE / Unknown 09/01/2015 11:56 AM EST 09/01/2015 11:56 AM EST Jay Chambers MD PATHOLOGY/CYTOLOGY ORDERABLES [facility] [place] [address] * Specimen to Pathology (surgical or derm) (09/01/2015 11:56 AM EST) AP Specimen 09/01/2015 11:5 6 AM EST 09/01/2015 11:56 AM EST Narrative [facility] - 09/01/2015 11:56 AM EST Specimen requisition ordered. ??Separate Pathology report to follow Delroy Chu MD PATHOLOGY/CYTOLOGY O RDERABLES [facility] * (ABNORMAL) BLOOD GAS 2 ARTERIAL (09/01/2015 [...] MD POINT OF CARE TEST O RDERABLES [facility] * (ABNORMAL) CMP w/fasting Glucose (09/01/2015 [...] of Diabetes Mellitus, Position Statement from the [place] Diabetes [employer]. ??Diabetes Care, Volume 33, Supplement 1, Sep 2009 Blood Urea Nitrogen 15 10 - 20 mg/dL CERNER MILLENNIUM Creatinine 0.86 0.80 - 1.50 mg/dL CERNER MILLENNIUM Comment: Please note that the pediatric reference intervals supplied above were not validated at [facility]. Results from pediatric patients should be interpreted [...] the following links into your internet browser. [email or web address] Blood specimen (specimen) 09/01/2015 4:01 AM EST 09/01/2015 4:06 AM EST Narrative Resulting Agency Comment Spec In Lab Delroy Chu MD CHEMISTRY ORDERABLES Performing Organization Address [facility] Co de Phone Number CERNER MILLENNIUM * (ABNORMAL) Phosphorus (09/01/2015 4:01 AM EST) Phosphorus 2.0(L) 2.5 - 4.5 mg/dL CERNER MILLENNIUM Blood specimen (specimen) 09/01/2015 4:01 AM EST 09/01/2015 4:06 AM EST Narrative Resulting Agency Comment Spec In Lab Delroy Chu MD CHEMISTRY ORDERABLES Performing Organization Address City/[facility] Co de Phone Number CERNER MILLENNIUM * [...] Platelet Volume 9.0 9.0 - 12.0 fL [facility] AND[facility]SEN[facility]UM Blood specimen (specimen) 09/01/2015 4:01 AM EST 09/01/2015 4:06 AM EST Narrative Resulting Agency Comment Spec In Lab Delroy Chu MD HEMATOLOGY ORDERABLE S Performing Organization Address [facility] Co de Phone Number [facility] * (ABNORMAL) Hepatitis A Antibody, Total (08/31/2015 3:38 PM EST) Hepatitis A ANTIBODY, TOTAL Positive(A ) Negative [facility] Blood specimen (specimen) 08/31/2015 3:38 PM EST 08/31/2015 3:45 PM EST Narrative Resulting Agency Comment Spec In Lab Delroy Chu MD CHEMISTRY ORDERABLES Performing Organization Address [facility] Co de Phone Number [facility] * Hepatitis C RNA, quantitative, PCR (08/31/2015 3:38 PM EST) HCV Viral Load <15 IU/mL [facility] HCV Viral Load Result: <15 [...] This assay is being performed in the [facility] Molecular Pathology Laboratory. Logan Khan, Ph.D. Director, Molecular Pathology [facility] Comment: [VERIFIED DATE]09.05.15 Verified By:Katy Monzon (Electronic Signature) Blood specimen (specimen) 08/31/2015 3:38 PM EST 09/04/2015 10:42 AM EST Narrative Resulting Agency Comment Spec In Lab Delroy Chu MD MOLECULAR ORDERABLES Performing Organization Address [facility] de Phone Number [facility] * Hepatitis A Antibody, IgM (08/31/2015 3:38 PM EST) Pathologist [facility] Hepatitis A Antibody, IgM Negative Negative [facility] Blood specimen (specimen) 08/31/2015 3:38 PM EST 08/31/2015 3:45 PM EST Narrative Resulting Agency Comment Spec In Lab Delroy Chu MD CHEMISTRY ORDERABLES Performing Organization Address [facility] de Phone Number [facility] * Hepatitis B Surface Antibody (08/31/2015 3:38 PM EST) Pathologist [facility] Hepatitis B Surface Antibody Positive [facility] Comment: Expected Results: Vaccinated: Positive [...] Chu MD CHEMISTRY ORDERABLES Performing Organization Address [facility] de Phone Number [facility] * Hepatitis B Surface Antigen (08/31/2015 3:38 PM EST) Pathologist [facility] Hepatitis B Surface Antigen Negative Negative [facility] Blood specimen (specimen) 08/31/2015 3:38 PM EST 08/31/2015 3:45 PM EST Narrative Resulting Agency Comment Spec In Lab Delroy Chu MD CHEMISTRY ORDERABLES Performing Organization Address [facility] Co de Phone Number MAX[facility] NER[facility] * Hepatitis C Antibody (08/31/2015 3:38 PM EST) Hepatitis C Antibody Negative Negative [facility] Blood specimen (specimen) 08/31/2015 3:38 PM EST 08/31/2015 3:45 PM EST Narrative Resulting Agency Comment Spec In Lab Delroy Chu MD CHEMISTRY ORDERABLES Performing Organization Address [facility] de Phone Number [facility] NER[facility] * Lactate, whole blood, send to lab (08/31/2015 3:38 PM EST) Pathologist [facility] Lactate WB 1.4 0.5 - 2.2 mmol/L [facility] Blood specimen (specimen) 08/31/2015 3:38 PM EST 08/31/2015 3:45 PM EST Narrative Resulting Agency Comment Spec In Lab Delroy Chu MD CHEMISTRY ORDERABLES Performing Organization Address [facility] de Phone Number [facility] * Blood culture (08/31/2015 9:45 AM EST) Pathologist [facility] Blood Culture No growth at 5 days. [facility] Blood specimen (specimen) STRUCTURE OF RIGHT HAND / Unknown 08/31/2015 9:45 AM EST 08/31/2015 10:16 AM EST Comment:DRAW BLOOD CULTURES BEFORE ADMINISTERING ANTIBIOTICS Narrative Resulting Agency Comment Spec In Lab Delroy Chu MD MICROBIOLOGY - BLOOD ORDERABLES Performing Organization Address [facility] Co de Phone Number [facility] N[facility] * (ABNORMAL) CMP w/fasting Glucose (08/31/2015 9:35 AM EST) Glucose Fasting 115(H) 65 - 99 mg/dL [facility] Comment: ?Fasting* Glucose Interpretive Criteria [...] of Diabetes Mellitus, Position Statement from the [place] Diabetes Association. ??Diabetes Care, Volume 33, Supplement 1, Sep 2009 Blood Urea Nitrogen 18 10 - 20 mg/dL CERNER MILLENNIUM Creatinine 0.92 0.80 - 1.50 mg/dL CERNER MILLENNIUM Comment: Please note that the pediatric reference intervals supplied above were not validated at [facility]. Results from pediatric patients should be interpreted [...] the following links into your internet browser. [email or web address] Blood specimen (specimen) STRUCTURE OF LEFT HAND / Unknown Venous Draw / Unknown 08/31/2015 9:35 AM EST 08/31/2015 10:14 AM EST Comment:Draw blood Cultures before administering antibiotics Narrative Resulting Agency Comment Spec In Lab Delroy Chu MD CHEMISTRY ORDERABLES Performing Organization Address [facility] de Phone Number MAXIMO NERI * Amylase (08/31/2015 9:35 AM EST) Amylase 32 28 - 100 unit/L MAXIMO NERI Blood specimen (specimen) STRUCTURE OF LEFT HAND / Unknown Venous Draw / Unknown 08/31/2015 9:35 AM EST 08/31/2015 10:14 AM EST Comment:Draw blood Cultures before administering antibiotics Narrative Resulting Agency Comment Spec In Lab Delroy Chu MD CHEMISTRY ORDERABLES Performing Organization Address [facility] de Phone Number MAXIMO ELYIUM * Gold Tube HOLD (08/31/2015 9:35 AM EST) Gold Hold Sample in lab. MAXIMO NERI Blood specimen (specimen) Venous Draw / Unknown 08/31/2015 9:35 AM EST 08/31/2015 10:13 AM EST Comment:Draw blood Cultures before administering antibiotics Delroy Chu MD CHEMISTRY ORDERABLES Performing Organization Address [facility] de Phone Number MAXIMO NERI * Blue Tube HOLD (08/31/2015 9:35 AM EST) Pathologist [facility] Blue Hold Sample in lab. MAXIMO ELYIUM Blood specimen (specimen) Venous Draw / Unknown 08/31/2015 9:35 AM EST 08/31/2015 10:13 AM EST Comment:Draw blood Cultures before administering antibiotics Delroy Chu MD HEMATOLOGY ORDERABLE S Performing Organization Address City/[facility]/ZIP Co de Phone Number MAXIMO ELYIUM * Blood culture (08/31/2015 9:35 AM EST) Pathologist [facility] Blood Culture No growth at 5 days. MAXIMO ELYIUM Blood specimen (specimen) STRUCTURE OF LEFT HAND / Unknown 08/31/2015 9:35 AM EST 08/31/2015 10:16 AM EST Comment:DRAW BLOOD CULTURES BEFORE ADMINISTERING ANTIBIOTICS Narrative Resulting Agency Comment Spec In Lab Delroy Chu MD MICROBIOLOGY - BLOOD ORDERABLES Performing Organization Address [facility] de Phone Number [facility] ELYIUM * (ABNORMAL) Differential, Automated (08/31/2015 9:34 AM EST) Pathologist [facility] Neutrophil % 82.9 % CERNER MILLENNIUM Neutrophil [...] Absolute 0.04 0.00 - 0.05 x10(3)/mc L [facility] Blood specimen (specimen) Venous Draw / Unknown 08/31/2015 9:34 AM EST 08/31/2015 9:57 AM EST Narrative Resulting Agency Comment Spec In Lab Delroy Chu MD HEMATOLOGY ORDERABLE S Performing Organization Address [facility] Co de Phone Number [facility] * Lactate, whole blood, send to lab (08/31/2015 9:34 AM EST) Lactate WB 1.1 0.5 - 2.2 mmol/L [facility] Blood specimen (specimen) 08/31/2015 9:34 AM EST 08/31/2015 9:41 AM EST Narrative Resulting Agency Comment Spec In Lab Delroy Chu MD CHEMISTRY ORDERABLES Performing Organization Address [facility] de Phone Number [facility] * (ABNORMAL) Phosphorus (08/31/2015 9:34 AM EST) Phosphorus 2.3(L) 2.5 - 4.5 mg/dL [facility] Blood specimen (specimen) 08/31/2015 9:34 AM EST 08/31/2015 9:57 AM EST Narrative Resulting Agency Comment Spec In Lab Delroy Chu MD CHEMISTRY ORDERABLES Performing Organization Address [facility] Co de Phone Number [facility] * (ABNORMAL) BMP w/fasting Glucose (08/31/2015 9:34 AM EST) Glucose Fasting 120(H) 65 - 99 mg/dL [facility] Comment: ?Fasting* Glucose Interpretive Criteria [...] of Diabetes Mellitus, Position Statement from the [place] [employer]. ??Diabetes Care, Volume 33, Supplement 1, Sep 2009 Blood Urea Nitrogen 18 10 - 20 mg/dL CERNER MILLENNIUM Creatinine 0.91 0.80 - 1.50 mg/dL CERNER MILLENNIUM Comment: Please note that the pediatric reference intervals supplied above were not validated at [facility]. Results from pediatric patients should be interpreted [...] the following links into your internet browser. [email or web address] Blood specimen (specimen) 08/31/2015 9:34 AM EST 08/31/2015 9:57 AM EST Narrative Resulting Agency Comment Spec In Lab Delroy Chu MD CHEMISTRY ORDERABLES Performing Organization Address [facility]/ZIP Co de Phone Number MAXIMO ELYIUM [...] Chu MD CHEMISTRY ORDERABLES Performing Organization Address [facility] de Phone Number MAXIMO NERI * Lactate, whole blood, send to lab (08/30/2015 8:59 PM EST) Lactate WB 1.1 0.5 - 2.2 mmol/L MAXIMO NERI Blood specimen (specimen) 08/30/2015 8:59 PM EST 08/30/2015 9:04 PM EST Narrative Resulting Agency Comment Spec In Lab Delroy Chu MD CHEMISTRY ORDERABLES Performing Organization Address [facility] Phone Number MAXIMO NERI * (ABNORMAL) [...] MD HEMATOLOGY ORDERABLE S Performing Organization Address [facility] de Phone Number MAXIMO NERI * Prepare thawed plasma (08/30/2015 4:35 PM EST) Dispensed? Yes MAXIMO NERI Blood specimen (specimen) 08/30/2015 4:35 PM EST 08/30/2015 4:34 PM EST Narrative Resulting Agency Comment Spec In Lab Delroy Chu MD BLOOD BANK PRODUCT O RDERABLES Performing Organization Address [facility] de Phone Number MAXIMO NERI * [...] MD HEMATOLOGY ORDERABLE S Performing Organization Address [facility] Phone Number MAXIMO NERI * Prepare thawed plasma (08/30/2015 3:00 PM EST) Dispensed? No MAXIMO NERI Blood specimen (specimen) 08/30/2015 3:00 PM EST 08/30/2015 2:57 PM EST Narrative Resulting Agency Comment Spec In Lab Delroy Chu MD BLOOD BANK PRODUCT O RDERABLES Performing Organization Address [facility] de Phone Number MAXIMO NERI * Lactate, whole blood, send to lab (08/30/2015 3:00 PM EST) Lactate WB 1.4 0.5 - 2.2 mmol/L MAXIMO ELYIUM Blood specimen (specimen) 08/30/2015 3:00 PM EST 08/30/2015 3:07 PM EST Narrative Resulting Agency Comment Spec In Lab Delroy Chu MD CHEMISTRY ORDERABLES Performing Organization Address [facility] Phone Number MAXIMO ELYIUM * Transfuse thawed [...] ?RAINA WILLIS ?(Age): 1945(69y) Med Rec#: ? [id number] ?Sex: ?M ? Site Loc: ? [facility] ?Ht / Wt: ??178(cm)/186(kg) Pt. Loc: ?Adult Floor ? BSA: ?2.83 Study Date: ?? 08/30/2015 ?Pt. Type: Inpatient Tape: ? Referring: JOHN EGAN T Referring: Delroy Chu Reading: Jaime Nguyen ([id number]) Proof Operator: Tamia Haines Diagnosis: *ICD-10-PCS Encounter for other preprocedural examination (Z01.818) *ICD-10-PCS Unspecified atrial fibrillation (I48.91) CPT Codes: *Echo Full (50488) *Spectral Doppler (35391) *Color Doppler (22644) Rhythm: ? A-Fib BP: ? 117/66 SUMMARY: [...] ? Mid-Inferior ?Normal ? Mid-Inferoseptal ?Normal ? [place]-Septal ? Normal ? [place]-Anterior ? Normal ? [place]-Lateral ?Normal ? [place]-Inferior ? Normal ? [place]-Tip ?Normal ? This report has been electronically signed by: Jaime Nguyen MD ? 08/30/2015 11:54:10 Images reviewed and interpretation verified [facility] Cardiac Ultrasound Laboratory Procedure Note Jaime Nguyen MD - 08/30/2015 Procedure: Transthoracic Echocardiogram Patient: RAINA WILLIS (Age): 1945(69y) Med Rec#: [id number] Sex: M Site Loc: [facility] Ht / Wt: 178(cm)/186(kg) Pt. Loc: Adult Floor BSA: 2.83 Study Date: 08/30/2015 Pt. Type: Inpatient Tape: Referring: JOHN EGAN T Referring: Delroy Chu Reading: Jaime Nguyen ([id number]) Proof Operator: Tamia Haines Diagnosis: *ICD-10-PCS Encounter for other preprocedural examination (Z01.818) *ICD-10-PCS Unspecified atrial fibrillation (I48.91) CPT Codes: *Echo Full (23227) *Spectral Doppler (34220) *Color Doppler (98807) Rhythm: A-Fib BP: 117/66 SUMMARY: 1. The [...] Normal Mid-Posterolateral Normal Mid-Inferior Normal Mid-Inferoseptal Normal [place]-Septal Normal [place]-Anterior Normal [place]-Lateral Normal [place]-Inferior Normal [place]-Tip Normal This report has been electronically signed by: Jaime Nguyen MD 08/30/2015 11:54:10 Images reviewed and interpretation verified [facility] Cardiac Ultrasound Laboratory Delroy Chu MD ECHO ORDERABLES * Antibody screen (08/30/2015 9:11 AM EST) Ab Screen Interp Negative [facility] Expires at [id number] on: 09/02/2015 [facility] Blood specimen (specimen) 08/30/2015 9:11 AM EST 08/30/2015 10:23 AM EST Narrative Resulting Agency Comment Spec In Lab Delroy Chu MD BLOOD BANK LAB ORDER JESSIE Performing Organization Address [facility] Co de Phone Number [facility] * ABO/Rh Typing (08/30/2015 9:11 AM EST) ABORH Type O Pos [facility] Blood specimen (specimen) 08/30/2015 9:11 AM EST 08/30/2015 10:23 AM EST Narrative Resulting Agency Comment Spec In Lab Delroy Chu MD BLOOD BANK LAB ORDER JESISE Performing Organization Address City/[facility]/ZIP Co de Phone Number [facility] * Lactate, whole blood, send to lab (08/30/2015 9:11 AM EST) Pathologist [facility] Lactate WB 1.4 0.5 - 2.2 mmol/L [facility] Comment:Results rechecked-mk f Blood specimen (specimen) 08/30/2015 9:11 AM EST 08/30/2015 9:15 AM EST Narrative Resulting Agency Comment Spec In Lab Delroy Chu MD CHEMISTRY ORDERABLES Performing Organization Address [facility] Co de Phone Number CERDENISE BOWENENNIUM * Prepare thawed plasma (08/30/2015 7:30 AM EST) Dispensed? Yes CERNER ANDRÉSENNIUM Blood specimen (specimen) 08/30/2015 7:30 AM EST 08/30/2015 7:33 AM EST Narrative Resulting Agency Comment Spec In Lab Delroy Chu MD BLOOD BANK PRODUCT O RDERABLES Performing Organization Address [facility] de Phone Number CERDENISE BOWENENNIUM * EKG 12 Lead (08/30/2015 1:28 AM EST) Ventricular rate 130 BPM MUSE SYSTEM Atrial Rate 144 BPM MUSE SYSTEM QRS Duration 100 ms MUSE SYSTEM Q-T Interval 322 ms MUSE SYSTEM QTC Calculated (Bezet) 473 ms MUSE SYSTEM Calculated R Wirtz 84 degrees MUSE SYSTEM Calculated T Wirtz 48 degrees MUSE SYSTEM INTERPRETATION Atrial fibrillation [...] Chu MD ECG ORDERABLES Performing Organization Address [facility]/ZIP Co de Phone Number MUSE SYSTEM [...] MD HEMATOLOGY ORDERABLE S Performing Organization Address City/[facility] Co de Phone Number MAXIMO ELYIUM * Gold Tube HOLD (08/30/2015 1:25 AM EST) [facility] Gold Hold Sample in lab. CERNER ANDRÉSENNIUM Blood specimen (specimen) Venous Draw / Unknown 08/30/2015 1:25 AM EST 08/30/2015 1:32 AM EST Delroy Chu MD CHEMISTRY ORDERABLES Performing Organization Address [facility]/ZIP Co de Phone Number MAXIMO ELYIUM * (ABNORMAL) Basic Metabolic Panel (non-fasting) (08/30/2015 1:25 AM EST) Pathologist [facility] Glucose 122 65 - 199 mg/dL [facility] MILLBANNERIUM Comment:Diabetes: >=200 mg/d L plus symptoms Blood Urea Nitrogen 14 10 - 20 mg/dL [facility] MILLENNIUM Creatinine 0.91 0.80 - 1.50 mg/dL CERNER MILLENNIUM Comment: Please note that the pediatric reference intervals supplied above were not validated at [facility]. Results from pediatric patients should be interpreted [...] the following links into your internet browser. [email or web address] [email or web address] Blood specimen (specimen) Venous Draw / Unknown [...] MD HEMATOLOGY ORDERABLE S Performing Organization Address City/[facility] Co de Phone Number CERNER MILLENNIUM * Lipase (08/30/2015 1:25 AM EST) Lipase 33 0 - 60 unit/L CERNER MILLENNIUM Blood specimen (specimen) 08/30/2015 1:25 AM EST 08/30/2015 1:30 AM EST Narrative Resulting Agency Comment Spec In Lab Delroy Chu MD CHEMISTRY ORDERABLES Performing Organization Address [facility] Co de Phone Number CERNER MILLENNIUM * [...] Bilirubin, Total 4.1(H) 0.2 - 1.3 mg/dL [facility] Bilirubin, Direct 3.7(H) 0.0 - 0.3 mg/dL [facility] Blood specimen (specimen) 08/30/2015 1:25 AM EST 08/30/2015 1:30 AM EST Narrative Resulting Agency Comment Spec In Lab Delroy Chu MD CHEMISTRY ORDERABLES Performing Organization Address [facility] Phone Number [facility] SOLISIUM * (ABNORMAL) Lactate, whole blood, send to lab (08/30/2015 1:25 AM EST) Lactate WB 3.2(H) 0.5 - 2.2 mmol/L [facility] MILLENNIUM Blood specimen (specimen) 08/30/2015 1:25 AM EST 08/30/2015 1:30 AM EST Narrative Resulting Agency Comment Spec In Lab Delroy Chu MD CHEMISTRY ORDERABLES Performing Organization Address [facility] Phone Number [facility] * APTT (08/30/2015 1:25 AM EST) Partial Thromboplastin Time 33 25 - 35 sec [facility] ANDRÉSENNIUM Comment: Recommended therapeutic PTT range for full dose unfractionated heparin is 80-114 seconds. Blood specimen (specimen) 08/30/2015 1:25 AM EST 08/30/2015 1:30 AM EST Narrative Resulting Agency Comment Spec In Lab Delroy Chu MD HEMATOLOGY ORDERABLE S Performing Organization Address [facility] Phone Number MAXIMO NERI * (ABNORMAL) Prothrombin Time (08/30/2015 1:25 AM EST) Prothrombin Time 26.1(H) 12.0 - 15.0 sec [facility] MILLENNIUM Comment: Transfusion Committee Guidelines: INR less [...] Discontinued, Routine 0818 (Given - Provider: Zahra Cnoway RN) 0812 (NOV Hold - Provider: Admin [...] Florinda Peralta RN) 0913 (Given - Provider: iHra Mandujano, JACOB) ibuprofen (ADVIL;MOTRIN) tablet 600 mg [...] RN) 0914 (Given - Provider: Hira M Marissa, RN) Continuous Medication Order 08/31/2015 09/01/2015 09/02/2015 [...] override 1255 (Given - Provider: Steffanie Peralta DEMAND EQUIPMENT REPAIRER) furosemide (LASIX) 10 mg/mL injection (COMPLETED) 1 [...] Routine documented in this encounter Care Teams Dishwasher Busser Relationship Specialty Start Date End Date Cherise Staples MD [address] [place] [address] PCP - General 07/31/10 10/04/19 documented as of this encounter
--- OUTSIDE RECORDS SUMMARY | 2024-08-20 10:53 | XMS_ITS | Encounter Summary ---
[place] [address] Care Team Providers Care Chocolatier Name Role Phone Cherise Staples MD Primary Care Provider Encounter Details Date Type Department Care Team (Late st Contact Info) Description 11/27/2015 9:30 AM EDT [place] [address] Sanjiv Emanuel Venous stasis ulcer of left [...] pain, being managed with oxycodone. Treated at [facility]. He had ulcer in the right leg, [...] (I) ASSESSMENT: Pt has been followed in [facility] for recurrent (L)LE wounds & [...] pressure Relieve pressure Debride non-viable tissue Goals: correction goals (11/28/15) 1. (L)LE Wounds healed--MET as [...] to be seen in conjunction with RN, PAPER CUTTING MACHINE OPERATOR, CWCN in [facility]. Will continue 2x/wk visits in [facility]. Pt to bring compression stockings for (L)LE to subsequent appointments. Pt has ordered donning device for stockings online. DME: as of 11/23/15, asked BULLARD MACHINE OPERATOR to order another pair of [...] extremity documented in this encounter Care Teams Chocolatier Relationship Specialty Start Date End Date Cherise Staples MD [address] [place] [id number] PCP - General 07/31/10 10/04/19 documented as of this encounter
--- OUTSIDE RECORDS SUMMARY | 2024-08-20 10:53 | XMS_ITS | Encounter Summary ---
[place] [address] Care Team Providers Care Retail Buyer Name Role Phone Cherise Staples MD Primary Care Provider [phone] Reason for Visit * Reason Comments Wound Care left leg Encounter Details Date Type Department Care Team (Late st Contact Info) Description 10/30/2015 10:00 AM EST Office [place] [phone] Sanjiv Emanuel Venous stasis ulcer of left [...] managed with oxycodone. Treated at [facility]. He had ulcer in the right [...] Not on file? Social History Narrative?? 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 Pt to look up compression garments online [...] extremity documented in this encounter Care Teams Retail Buyer Relationship Specialty Start Date End Date Cherise Staples MD [address] [place] [id number] PCP - General 07/31/10 10/04/19 documented as of this encounter
--- OUTSIDE RECORDS SUMMARY | 2024-08-20 10:53 | XMS_ITS | Encounter Summary ---
[place] [address] Care Team Providers Care Digital Marketing Associate Name Role Phone Cherise Staples MD Primary Care Provider [phone] Reason for Visit * Reason Comments Dressing Change venous stasis ulcers Encounter Details Date Type Department Care Team (Late st Contact Info) Description 11/09/2015 9:30 AM EST Office [place] [phone] Sanjiv Emanuel Venous stasis ulcer of left [...] sock (black) on second. Consider purchasing Medi New Haven Pharm[employer]ler donning device online to assist you with [...] from the original note were not included. [facility] [...] pain, being managed with oxycodone. Treated at [facility]. He had ulcer in the right [...] provided about donning devices & pt shown Sookasa Bulter device in [place]. Pt tolook for it online to purchase. [...] over sock (black) on second. Consider purchasing Sookasa Dumont donning device online to assist you [...] (I) ASSESSMENT: Pt has been followed in [facility] for (L)LE wounds & (B)LE wounds [...] pressure Relieve pressure Debride non-viable tissue Goals: custodial goals (11/28/15) 1. (L)LE Wounds healed--MET as [...] to be seen in conjunction with RN, TECHNICAL SALES SUPPORT MANAGER, CWCN in [facility]. Follow up visit in 1 week in [facility]. Pt to look up donning devices for stockings online. DME: PRODUCTION CONTROL EXPEDITER ordered Caralon Graduated Compression Multi-layer stocking system [...] extremity documented in this encounter Care Teams Digital Marketing Associate Relationship Specialty Start Date End Date Cherise Staples MD [address] [place] [address] PCP - General 07/31/10 10/04/19 documented as of this encounter
--- OUTSIDE RECORDS SUMMARY | 2024-08-20 10:53 | XMS_ITS | Encounter Summary ---
[place] [address] Care Team Providers Care Caseworker Protective Services Name Role Phone Cherise Staples MD Primary Care Provider [phone] Reason for Visit * Reason Comments Wound Care Encounter Details Date Type Department Care Team (Late st Contact Info) Description 11/23/2015 9:30 AM EDT Office [place] [phone] Sanjiv Emanuel Venous stasis ulcer of left [...] pain, being managed with oxycodone. Treated at [facility]. He had ulcer in the right [...] (I) ASSESSMENT: Pt has been followed in [facility] for recurrent (L)LE wounds & (B)LE [...] pressure Relieve pressure Debride non-viable tissue Goals: photographic spotter goals (11/28/15) 1. (L)LE Wounds healed--MET as [...] to be seen in conjunction with RN, HARDWARE DEVELOPER, CWCN in [facility]. Will continue 2x/wk visits in [facility]. Pt has ordered donning device for stockings online. DME: IMPROVEMENT INTERN ordered Caralon Graduated Compression Multi-layer stocking system [...] extremity documented in this encounter Care Teams Caseworker Protective Services Relationship Specialty Start Date End Date Cherise Staples MD [address] [place] [address] PCP - General 07/31/10 10/04/19 documented as of this encounter
--- OUTSIDE RECORDS SUMMARY | 2024-08-20 10:53 | XMS_ITS | Encounter Summary ---
Author Organization [facility] [place] [address] Care Team Providers Care Environmental Services Associate Name Role Phone Cherise Staples MD Primary Care Provider [phone] Reason for Visit * Diagnostic Test (Routine) - Closed Specialty Diagnoses / Procedures Referred By Contalberto t Referred To Contact Radiology Diagnoses Chronic systolic heart failure SOB (shortness of breath) Coronary artery disease involving [facility] [place] heart, angina presence unspecified, unspecified vessel or lesion type Procedures NM Myocardial Perfusion Scan Pharmacologic Carito Cabrera MD [facility] [place] [address] [place] [address] Referral ID Status Reason Start Date Expiration Date V isits Requested Visits Authorized [id number] Closed Specialty Service Requested 01/21/2017 01/21/2018 4 4 Encounter Details Date Type Department Care Team (Latest Contact Info) Description 02/17/2017 8:42 AM EDT Hospital En[place] [address] Slim Summers MD [facility] [place] [address] Discharge Disposition: Home Social History [...] (shortness of breath) Coronary artery disease involving [facility] [place] heart, angina presence unspecified, unspecified vessel or [...] on filedocumented in this encounter Care Teams Environmental Services Associate Relationship Specialty Start Date End Date Cherise Staples MD [address] [place] [address] PCP - General 07/31/10 10/04/19 documented as of this encounter
--- OUTSIDE RECORDS SUMMARY | 2024-08-20 10:53 | XMS_ITS | Encounter Summary ---
[place] [address] Care Team Providers Care Operations Business Partner Name Role Phone Cherise Staples MD Primary Care Provider [phone] Reason for Visit * Reason Comments Wound Care Encounter Details Date Type Department Care Team (Late st Contact Info) Description 11/30/2015 9:30 AM EDT [place] [phone] Sanjiv Emanuel Venous stasis ulcer of left [...] being managed with oxycodone. Treated at [facility]. He had ulcer in the right [...] & newly epithelialized wound distal anterior LE TOE TRIMMER donned pt's Caralon dual layer compression stockings [...] pressure Relieve pressure Debride non-viable tissue Goals: halfway goals (11/28/15) 1. (L)LE Wounds healed--MET as [...] to be seen in conjunction with RN, INDUSTRIAL MAINTENANCE ELECTRICIAN, CWCN in [facility]. F/u in 4 days, if wounds healed & pt tolerating compression stockings, will likely discharge ptfrom [facility]. Pt agrees with plan. Pt has ordered donning device for stockings online. DME: as of 11/23/15, asked SAW RUNNER to order another pair of Caralon Graduated Compression Multi-layer stocking system 30-40 mmHg, color Black, size E Regular via [facility] for pt. Pt reports on 11/30/15 that he received them & he brought them today. As of today, 11/30/15, will ask SAW RUNNER to order dressings (Mepilex 3x3 border dressing [...] extremity documented in this encounter Care Teams Operations Business Partner Relationship Specialty Start Date End Date Cherise Staples MD [address] [place] [id number] PCP - General 07/31/10 10/04/19 documented as of this encounter
--- OUTSIDE RECORDS SUMMARY | 2024-08-20 10:53 | XMS_ITS | Encounter Summary ---
Author Organization [facility] [place] [address] Care Team Providers Care Tools Programmer Name Role Phone Cherise Staples MD Primary Care Provider [phone] Reason for Referral * Diagnostic Test (Routine) - Closed Specialty Diagnoses / Procedures Referred By Carla soto Referred To Contact Radiology Diagnoses Chronic systolic heart failure SOB (shortness of breath) Coronary artery disease involving [place] heart, angina presence unspecified, unspecified vessel or lesion type Procedures NM Myocardial Perfusion Scan Pharmacologic Carito Cabrera MD [facility] [place] [address] [place] [address] Referral ID Status Reason Start Date Expiration Date V isits Requested Visits Authorized [id number] Closed Specialty Service Requested 01/21/2017 01/21/2018 4 4 * Diagnostic Test (Routine) - Closed Specialty Diagnoses / Procedures Referred By Carla soto Referred To Contact Cardiology Diagnoses Chronic systolic heart failure SOB (shortness of breath) Coronary artery disease involving [place] heart, angina presence unspecified, unspecified vessel or lesion type Procedures Echocardiogram Transthoracic(Leb) Carito Cabrera MD [facility] [place] [address] [facility] [place] [address] Referral ID Status Reason Start Date Expiration [...] and bi-artrial enlargement Cherise Staples MD [address] [place] [address] [facility] Cardiology [address] [place] [id number] Referral ID Status Reason Start Date Expiration Date V isits Requested Visits Authorized [id number] Closed Consult, Test & Treat Connection Center 01/15/2017 01/15/2018 1 1 Encounter Details Date Type Department Care Team (Late st Contact Info) Description 01/21/2017 4:20 PM EDT Office Visit Cardiology at [address] [address] Slim Summers MD [facility] [address] Chronic systolic heart failure; SOB (shortness of breath); Coronary artery disease involving [place] heart, angina presence unspecified, unspecified vessel or [...] the principal findings documented in the linked workforce consultant note from today by Dr. Cabrera. The [...] as above in #1 Slim Summers MD, [facility] Staff Vegetable Loader Machine Operator, Pager [phone] * Carito Cabrera - 01/21/2017 4:20 PM EDT [facility] Advanced Heart Failure Clinic New Patient Visit [...] was diaphoresis and was taken to the [facility]. There ACS was r/o and he was [...] ??? ASCVD (arteriosclerotic cardiovascular disease) [address] 1992, stent to LAD in 2006 ??? [...] Abdomen: Protuberant, soft and non-tender, no ascites. DREDGE BOAT ENGINEER: Alert and oriented x3. Available cardiology studies: [...] current furosemide ( 40 mg bid) Continue watermelon harvesting supervisor anticoagulation with coumadin. Labs on next visit ( CBC, BMP, BNP) Next cardiology visit in 1 month in regular cardiology clinic. The patient was seen and discussed with Dr. Soares. Carito Cabrera MD Road Advisor Pager # [phone] documented in this encounter Plan of Treatment Scheduled Orders Name Type Priority Associated Diagnoses Orde r Schedule Nuclear Pharmacologic Stress Cardiology Cardiac Services Routine Chronic systolic heart failure SOB (shortness of breath) Coronary artery disease involving [place] heart, angina presence unspecified, unspecified vessel or lesion type Expected: 01/23/2017 (Approximate), Expires: 07/25/2017 documented as of this encounter Procedures Procedure Name Priority Date/Time Associated Diagnosis Comments EKG 12-LEAD Routine 01/21/2017 4:06 PM EDT Chronic systolic heart failure SOB (shortness of breath) documented in this encounter Results * (ABNORMAL) pro-Brain Natriuretic Peptide (02/17/2017 10:42 AM EDT) NT-proBNP 271(H) <=125 pg/mL [facility] Blood specimen (specimen) 02/17/2017 10:42 AM EDT 02/17/2017 10:53 AM EDT Narrative Resulting Agency Comment Spec In Lab Slim Summers MD CHEMISTRY ORDERAB LES [facility] [place] [address] * (ABNORMAL) Comprehensive metabolic panel (non-fasting) (02/17/2017 10:42 AM EDT) Glucose 129 65 - 199 mg/dL [facility] Comment:Diabetes: >=200 mg/d L plus symptoms Blood Urea Nitrogen 26(H) 10 - 20 mg/dL [facility] Creatinine 1.08 0.80 - 1.50 mg/dL [facility] Comment: Please note that the pediatric reference intervals supplied above were not validated at [facility]. Results from pediatric patients should be interpreted in conjunction to the patient's age, height and muscle mass. Sodium 142 135 - 145 mmol/L [facility] Potassium 4.5 3.5 - 5.0 mmol/L [facility] Comment: Please note: ??Patients with WBC >100,000 may have falsely elevated Potassium levels. ??For accurate Potassium quantification in these patients send serum separator tube (gold top) for subsequent determinations. ??Contact the Clinical Chemistry Laboratory if there are any questions. Chloride 105 98 - 107 mmol/L [facility] Carbon Dioxide 23 22 - 31 mmol/L [facility] Anion Gap 14 5 - 15 mmol/L [facility] Calcium 9.8 8.5 - 10.5 mg/dL [facility] Protein, Total 7.1 6.1 - 8.0 gm/dL [facility] Albumin 3.4 3.2 - 5.2 gm/dL [facility] Aspartate Aminotransferase 18 0 - 39 unit/L [facility] Alanine Aminotransferase 30 0 - 55 unit/L [facility] Alkaline Phosphatase 97 40 - 120 unit/L [facility] Bilirubin, Total 0.6 0.2 - 1.3 mg/dL [facility] Bilirubin, Direct 0.1 0.0 - 0.3 mg/dL [facility] Est Glomerular [...] the following links into your internet browser. [email or web address] Blood specimen (specimen) 02/17/2017 10:42 AM EDT 02/17/2017 10:53 AM EDT Narrative Resulting Agency Comment Spec In Lab Slim Summers MD CHEMISTRY ORDERAB LES Performing Organization Address City/State/[facility] Co de Phone Number [facility] [place] [address] * NM Myocardial Perfusion Scan Pharmacologic (02/17/2017 [...] ?RAINA LAZARO ?(Age): 1945(71y) Med Rec#: ? [id number] ?Sex: ?M ? Site Loc: ? [facility] ?Ht / Wt: ??178(cm)/186(kg) Pt. Loc: ?Echo Lab ?BSA: ?2.83 Study Date: ?? 02/17/2017 ?Pt. Type: Outpatient Tape: ? Referring: Slim Summers ([id number]) Reading: Logan Irizarry ([id number]) Men'S Basketball Coach: Eleonora Watt RDCS Interpreting Fellow: Amber Pulliam Interpreting Fellow: Lionel Hemphill ([id number]) Diagnosis: *ICD-10-PCS Dyspnea, unspecified (R06.00) *ICD-10-PCS Unspecified [...] ? Mid-Inferior ?Normal ? Mid-Inferoseptal ?Normal ? [place]-Septal ? Normal ? [place]-Anterior ? Normal ? [place]-Lateral ?Normal ? [place]-Inferior ? Normal ? [place]-Tip ?Normal ? This report has been electronically signed by: Logan Irizarry MD ? 02/17/2017 10:04:56 Images reviewed and interpretation verified [facility] Cardiac Ultrasound Laboratory Procedure Note Logan Irizarry MD - 02/17/2017 Procedure: Transthoracic Echocardiogram Patient: RAINA WILLIS DOB(Age): 1945(71y) Med Rec#: [id number] Sex: M Site Loc: [facility] Ht / Wt: 178(cm)/186(kg) Pt. Loc: Echo Lab BSA: 2.83 Study Date: 02/17/2017 Pt. Type: Outpatient Tape: Referring: Slim uSmmers ([id number]) Reading: Logan Irizarry ([id number]) Men'S Basketball Coach: Eleonora Watt [facility] Interpreting Fellow: Amber Pulliam Interpreting Fellow: Lionel Hemphill ([id number]) Diagnosis: *ICD-10-PCS Dyspnea, unspecified (R06.00) *ICD-10-PCS Unspecified [...] Normal Mid-Posterolateral Normal Mid-Inferior Normal Mid-Inferoseptal Normal [place]-Septal Normal [place]-Anterior Normal [place]-Lateral Normal [place]-Inferior Normal [place]-Tip Normal This report has been electronically signed by: Logan Irizarry MD 02/17/2017 10:04:56 Images reviewed and interpretation verified [facility] Cardiac Ultrasound Laboratory Slim Summers MD ECHO ORDERABLES * EKG 12 Lead (01/21/2017 4:06 PM EDT) Ventricular rate 98 BPM MUSE SYSTEM QRS Duration 104 ms MUSE SYSTEM Q-T Interval 362 ms MUSE SYSTEM QTC Calculated (Bezet) 462 ms MUSE SYSTEM Calculated R [place] -21 degrees MUSE SYSTEM Calculated T [place] 44 degrees MUSE SYSTEM INTERPRETATION Atrial fibrillation [...] Shortness of breath Coronary artery disease involving [place] heart, angina presence unspecified, unspecified vessel or lesion type Chronic systolic heart failure SOB (shortness of breath) Shortness of breath Coronary artery disease involving [place] heart, angina presence unspecified, unspecified vessel or lesion type Chronic systolic heart failure SOB (shortness of breath) Shortness of breath Coronary artery disease involving [place] heart, angina presence unspecified, unspecified vessel or lesion type documented in this encounter Care Teams Tools Programmer Relationship Specialty Start Date End Date Cherise Staples MD [address] [place] [address] PCP - General 07/31/10 10/04/19 documented as of this encounter
--- OUTSIDE RECORDS SUMMARY | 2024-08-20 10:53 | XMS_ITS | Encounter Summary ---
Author Organization Replaced By [facility] Address [facility] [place] [address] Care Team Providers Care Restaurant Cashier Name Role Phone Cherise Staples MD Primary Care Provider [phone] Encounter Details Date Type Department Care Team (Late st Contact Info) Description 12/27/2015 Orders [place] [address] Edyta Arambula Jr., MD [facility] [place] [address] Nephrolithiasis (Primary Dx) Social History Tobacco Use [...] 11:44 am) PATIENT INFO: ID #: ? [id number] ?: [birth year] (70 yrs) Name: ? LAZARO CROUCH ? Visit Date: 07/30/2016 11:20 am PERFORMED BY: Performed By: ? Manny PERALTA, ??Mckenna Attending: ?Miguel SPIVEY, Ryan Sanchez. Referred By: ?EDYTA ARAMBULA Location: ? [place] SERVICE(S) PROVIDED: ??URETRO - Retroperitoneal Complete - [id number] ? [id number] INDICATIONS: ??Nephroithiasis COMPARISON: Ultrasound: 01/05/14 RIGHT KIDNEY: [...] 07/30/2016 11:44 am) PATIENT INFO: ID #: [id number] : [birth year] (70 yrs) Name: LAZARO CROUCH Visit Date: 07/30/2016 11:20 am PERFORMED BY: Performed By: Mckenna Bryant RDMS Attending: Ryan Rivera MD Referred By: EDYTA ARAMBULA Location: [place] SERVICE(S) PROVIDED: URETRO - Retroperitoneal Complete - [id number] INDICATIONS: Nephroithiasis COMPARISON: Ultrasound: 01/05/14 RIGHT KIDNEY: [...] kidney documented in this encounter Care Teams Restaurant Cashier Relationship Specialty Start Date End Date Cherise Staples MD [address] [place] [address] PCP - General 07/31/10 10/04/19 documented as of this encounter
--- OUTSIDE RECORDS SUMMARY | 2024-08-20 10:53 | XMS_ITS | Encounter Summary ---
Author Organization [facility] Address [facility] [place] [address] Care Team Providers Care Caretaker Resort Name Role Phone Cherise Staples MD Primary Care Provider [phone] Encounter Details Date Type Department Care Team (Late st Contact Info) Description 09/02/2015 Orders Only [place] [address] Sloan Heredia MD [facility] [address] Social History Tobacco Use Types Packs/Day Years [...] on filedocumented in this encounter Care Teams Caretaker Resort Relationship Specialty Start Date End Date Cherise Staples MD [address] [place] [address] PCP - General 07/31/10 10/04/19 documented as of this encounter
--- OUTSIDE RECORDS SUMMARY | 2024-08-20 10:53 | XMS_ITS | Encounter Summary ---
Author Organization [place] [address] Care Team Providers Care Bill Of Materials Clerk Name Role Phone Cherise Staples MD Primary Care Provider [phone] Reason for Visit * Reason Comments Dressing Change LE venous ulcers Encounter Details Date Type Department Care Team (Late st Contact Info) Description 10/23/2015 4:00 PM EST Office [place] [phone] Dorothea Cantor APRN [facility] [place] [address] Venous stasis ulcer of left lower extremity [...] this encounter Progress Notes * Dorothea Cantor, HAUL TRUCK DRIVER - 10/23/2015 4:28 PM EST Images from the original note were not included. [facility] Progress Note HPI: Jaime Crouch is a 70 y.o. male returns for follow up of venous stasis ulcers. A: [facility] Review Of Systems: Denies constitutional [...] extremity documented in this encounter Care Teams Bill Of Materials Clerk Relationship Specialty Start Date End Date Cherise Staples MD [address] [place] [address] PCP - General 07/31/10 10/04/19 documented as of this encounter
--- OUTSIDE RECORDS SUMMARY | 2024-08-20 10:53 | XMS_ITS | Encounter Summary ---
[place] [address] Care Team Providers Care Food And Beverage Order Clerk Name Role Phone Cherise Staples MD Primary Care Provider Reason for Visit * Reason Comments Wound Care both legs Encounter Details Date Type Department Care Team (Late st Contact Info) Description 10/27/2015 8:30 AM EST Office [place] [address] Hope Roberts RN Venous stasis ulcer of [...] since 10/17/15. VNA: None, discontinued services through [facility], he would prefer to come to [...] extremity documented in this encounter Care Teams Food And Beverage Order Clerk Relationship Specialty Start Date End Date Cherise Staples MD [address] [place] [address] PCP - General 07/31/10 10/04/19 documented as of this encounter
--- OUTSIDE RECORDS SUMMARY | 2024-08-20 10:53 | XMS_ITS | Encounter Summary ---
Author Organization [facility] [address] Care Team Providers Care Rehab Tech Name Role Phone Chersie Staples MD Primary Care Provider [phone] Reason for Referral * Diagnostic Test (Routine) - Closed Specialty Diagnoses / Procedures Referred By Carla soto Referred To Contact Cardiology Diagnoses Chronic systolic heart failure SOB (shortness of breath) Coronary artery disease involving [place] heart, angina presence unspecified, unspecified vessel or lesion type Procedures Echocardiogram Transthoracic(Leb) Carito Cabrera MD [facility] [address] [facility] [place] [address] Referral ID Status Reason Start Date Expiration Date V isits Requested Visits Authorized [id number] Closed Specialty Service Requested 01/21/2017 01/21/2018 1 1 Reason for Visit * Diagnostic Test (Routine) - Closed Specialty Diagnoses / Procedures Referred By Carla soto Referred To Contact Cardiology Diagnoses Chronic systolic heart failure SOB (shortness of breath) Coronary artery disease involving [place] heart, angina presence unspecified, unspecified vessel or lesion type Procedures Echocardiogram Transthoracic(Leb) Carito Cabrera MD [facility] [address] [facility] [place] [address] Referral ID Status Reason Start Date Expiration Date V isits Requested Visits Authorized [id number] Closed Specialty Service Requested 01/21/2017 01/21/2018 1 1 Encounter Details Date Type Department Care Team (Latest Contact Info) Description 02/17/2017 7:18 AM EDT - 02/17/2017 8:40 AM EDT Hospital Encounter Non-Invasive [place] [address] Chronic systolic heart failure; SOB (shortness of breath); Coronary artery disease involving [place] heart, angina presence unspecified, unspecified vessel or [...] (shortness of breath) Coronary artery disease involving [place] heart, angina presence unspecified, unspecified vessel or lesion type documented in this encounter Results * ECHO COMPLETE W CONTRAST (02/17/2017 8:39 AM EDT) Anatomical Region Laterality Modality Other 02/17/2017 Narrative 02/17/2017 10:05 AM EDT Procedure: ?Transthoracic Echocardiogram Patient: ?RAINA WILLIS ?(Age): 1945(71y) Med Rec#: ? [id number] ?Sex: ?M ? Site Loc: ? [facility] ?Ht / Wt: ??178(cm)/186(kg) Pt. Loc: ?Echo Lab ?BSA: ?2.83 Study Date: ?? 02/17/2017 ?Pt. Type: Outpatient Tape: ? Referring: Slim Summers ([id number]) Reading: Logan Irizarry ([id number]) Biometrician: Eleonora Watt RDCS Interpreting Fellow: Amber Pulliam Interpreting Fellow: Lionel Hemphill ([id number]) Diagnosis: *ICD-10-PCS Dyspnea, unspecified (R06.00) *ICD-10-PCS Unspecified [...] ? Mid-Inferior ?Normal ? Mid-Inferoseptal ?Normal ? [place]-Septal ? Normal ? [place]-Anterior ? Normal ? [place]-Lateral ?Normal ? [place]-Inferior ? Normal ? [place]-Tip ?Normal ? This report has been electronically signed by: Logan Irizarry MD ? 02/17/2017 10:04:56 Images reviewed and interpretation verified [facility] Cardiac Ultrasound Laboratory Procedure Note Logan Irizarry MD - 02/17/2017 Procedure: Transthoracic Echocardiogram Patient: RAINA GREENBERG(Age): 1945(71y) Med Rec#: [id number] Sex: M Site Loc: [facility] Ht / Wt: 178(cm)/186(kg) Pt. Loc: Echo Lab BSA: 2.83 Study Date: 02/17/2017 Pt. Type: Outpatient Tape: Referring: Slim Summers ([id number]) Reading: Logan Irizarry ([id number]) Biometrician: Eleonora Watt [facility] Interpreting Fellow: Amber Pulliam Interpreting Fellow: Lionel Hemphill ([id number]) Diagnosis: *ICD-10-PCS Dyspnea, unspecified (R06.00) *ICD-10-PCS Unspecified [...] Normal Mid-Posterolateral Normal Mid-Inferior Normal Mid-Inferoseptal Normal [place]-Septal Normal [place]-Anterior Normal [place]-Lateral Normal [place]-Inferior Normal [place]-Tip Normal This report has been electronically signed by: Logan Irizarry MD 02/17/2017 10:04:56 Images reviewed and interpretation verified [facility] Cardiac Ultrasound Laboratory Slim Summers MD ECHO ORDERABLES documented in this encounter Visit Diagnoses Diagnosis Chronic systolic heart failure SOB (shortness of breath) Shortness of breath Coronary artery disease involving [place] heart, angina presence unspecified, unspecified vessel or [...] mLs documented in this encounter Care Teams Rehab Tech Relationship Specialty Start Date End Date Cherise Staples MD [address] [place] [address] PCP - General 07/31/10 10/04/19 documented as of this encounter
--- OUTSIDE RECORDS SUMMARY | 2024-08-20 10:53 | XMS_ITS | Encounter Summary ---
Author Organization [facility] [place] [address] Care Team Providers Care Golf Manager Name Role Phone Cherise Staples MD Primary Care Provider [phone] Reason for Visit * Reason Comments Wound Care both legs Encounter Details Date Type Department Care Team (Late st Contact Info) Description 11/20/2015 9:00 AM EDT Office [place] [phone] Marla Paredes APRN [facility] [place] [address] Venous stasis ulcer of left lower extremity [...] being managed with oxycodone. Treated at [facility]. He had ulcer in [...] extremity documented in this encounter Care Teams Golf Manager Relationship Specialty Start Date End Date Cherise Staples MD [address] [place] [address] PCP - General 07/31/10 10/04/19 documented as of this encounter
--- OUTSIDE RECORDS SUMMARY | 2024-08-20 10:53 | XMS_ITS | Encounter Summary ---
Author Organization [facility] [place] [address] Care Team Providers Care Sql Server Architect Name Role Phone Cherise Staples MD Primary Care Provider [phone] Reason for Visit * Reason Comments Follow Up Surgery Encounter Details Date Type Department Care Team (Late st Contact Info) Description 09/25/2015 11:00 AM EST Office [place] [address] Barbie Coyne, VEHICLE CALIBRATION ENGINEER [facility] [place] [address] Surgery follow-up Social History Tobacco Use Types [...] 09/25/2015 11:05 AM EST Mr Jaime Crouch ([phone]) is here for hospital check 09/01/15:laparoscopic cholecystectomy-[place] [...] surgery documented in this encounter Care Teams Sql Server Architect Relationship Specialty Start Date End Date Cherise Staples MD [address] [place] [address] PCP - General 07/31/10 10/04/19 documented as of this encounter
--- OUTSIDE RECORDS SUMMARY | 2024-08-20 10:53 | XMS_ITS | Encounter Summary ---
[place] [address] Care Team Providers Care Bulk Sausage Casing Tier Off Name Role Phone Cherise Staples MD Primary Care Provider [phone] Reason for Visit * Reason Comments Wound Care bileteral legs Encounter Details Date Type Department Care Team (Latest Contact Info) Description 11/02/2015 9:30 AM EST Office [place] [address] Sanjiv Emanuel Venous stasis ulcer of left [...] pain, being managed with oxycodone. Treated at [facility]. He had ulcer in the [...] pressure Relieve pressure Debride non-viable tissue Goals: terminologist goals (11/28/15) 1. (L)LE Wounds healed 2. [...] to be seen in conjunction with RN, LAMINATING MACHINE TENDER, [facility] in [facility]. Pt to look up donning devices for stockings online. DME: will ask CLIENT SUPPORT ANALYST to order Caralon Graduated Compression Multi-layer stocking [...] insufficiency documented in this encounter Care Teams Bulk Sausage Casing Tier Off Relationship Specialty Start Date End Date Cherise Staples MD [address] [place] [address] PCP - General 07/31/10 10/04/19 documented as of this encounter
--- OUTSIDE RECORDS SUMMARY | 2024-08-20 10:53 | XMS_ITS | Encounter Summary ---
Author Organization [facility] [place] [address] Care Team Providers Care Photographic Specialist Name Role Phone Cherise Staples MD Primary Care Provider [phone] Reason for Visit * Reason Comments Dressing Change LLE wounds Encounter Details Date Type Department Care Team (Late st Contact Info) Description 10/17/2015 2:00 PM EST Office [place] [id number] Dorothea Morse APRN [facility] [place] [address] Suspected cholecystitis vs cholangitis Social History Tobacco [...] Patient Instructions * Patient Instructions* Dorothea Morse, MECHANICAL EQUIPMENT TEST ENGINEER - 10/17/2015 3:09 PM EST I have ordered triamcinolone cream from your pharmacy. Will have [place] visit on Friday and once weekly. Call anytime: [phone] VNA Orders: Please admit on Friday and [...] from the original note were not included. 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 We will engage the VNA to assist with dressing changes. We have provided verbal and written wound care instructions. He will call with any questions or concerns. Follow up: weekly Patient Instructions: I have ordered triamcinolone cream from your pharmacy. Will have [place] visit on Friday and once weekly. Call anytime: [phone] VNA Orders: Please admit on Friday and [...] active. Cc: Nick Nettles MD [address] [place] [address] PCP: CHERISE STAPLES MD documented in this encounter Miscellaneous Notes * Addendum Note - Dorothea Morse APRN - 10/18/2015 11:10 AM ESTAddended by: DOROTHEA MORSE on: 10/18/2015 11:10 AM Modules accepted: Orders * Addendum Note - Doorthea Morse APRN - 10/18/2015 10:31 AM ESTAddended by: DOROTHEA MORSE on: 10/18/2015 10:31 AM Modules accepted: Orders documented in this encounter Plan of Treatment Not on file documented as of this encounter Visit Diagnoses Diagnosis Suspected cholecystitis vs cholangitis Cholecystitis, unspecified documented in this encounter Care Teams Photographic Specialist Relationship Specialty Start Date End Date Cherise Staples MD [address] [place] [address] PCP - General 07/31/10 10/04/19 documented as of this encounter
--- OUTSIDE RECORDS SUMMARY | 2024-08-20 10:53 | XMS_ITS | Encounter Summary ---
[place] [address] Care Team Providers Care Manager Meat Name Role Phone Cherise Staples MD Primary Care Provider [phone] Encounter Details Date Type Department Care Team (Late st Contact Info) Description 10/18/2015 Orders [place] [address] Lili Elizalde LPN Social History Tobacco Use [...] filedocumented in this encounter Care Teams Manager Meat Relationship Specialty Start Date End Date Cherise Staples MD [address] [place] [address] PCP - General 07/31/10 10/04/19 documented as of this encounter
--- OUTSIDE RECORDS SUMMARY | 2024-08-20 10:53 | XMS_ITS | Encounter Summary ---
[place] [address] Care Team Providers Care Mixing Plant Operator Name Role Phone Cherise Staples MD Primary Care Provider [phone] Reason for Visit * Reason Comments Wound Care legs Encounter Details Date Type Department Care Team (Late st Contact Info) Description 12/04/2015 9:30 AM EDT Office [place] [phone] Sanjiv Emanuel Venous stasis ulcer of left [...] from the original note were not included. [facility] Physical Therapy Progress Note [...] to 2 small open wounds anterior LE DATABASE SUPPORT donned pt's Caralon dual layer compression stockings [...] no need to be seen again in [facility] unless recurrent skin breakdown occurs. Goals: termite renewal inspector goals (11/28/15) 1. (L)LE Wounds healed--HAD BEEN [...] stockings online. DME: as of 11/23/15, asked [employer] to order another pair of Caralon Graduated Compression Multi-layer stocking system 30-40 mmHg, color Black, size E Regular via [facility] for pt. Pt reports on 11/30/15 that he received them & he brought them today. As of 11/30/15, asked [employer] to order dressings (Mepilex 3x3 border dressing [...] extremity documented in this encounter Care Teams Mixing Plant Operator Relationship Specialty Start Date End Date Cherise Staples MD [address] [place] [address] PCP - General 07/31/10 10/04/19 documented as of this encounter
--- OUTSIDE RECORDS SUMMARY | 2024-08-20 10:53 | XMS_ITS | Encounter Summary ---
Author Organization [facility] [place] [address] Care Team Providers Care Seaport Planning Manager Name Role Phone Cherise Staples MD Primary Care Provider [phone] Reason for Referral * Diagnostic Test (Routine) - Closed Specialty Diagnoses / Procedures Referred By Carla t Referred To Contact Radiology Diagnoses Chronic systolic heart failure SOB (shortness of breath) Coronary artery disease involving white earth heart, angina presence unspecified, unspecified vessel or lesion type Procedures NM Myocardial Perfusion Scan Pharmacologic Carito Cabrera MD [facility] [place] [address] [place] [address] Referral ID Status Reason Start Date Expiration Date V isits Requested Visits Authorized [id number] Closed Specialty Service Requested 01/21/2017 01/21/2018 4 4 Reason for Visit * Diagnostic Test (Routine) - Closed Specialty Diagnoses / Procedures Referred By Carla t Referred To Contact Radiology Diagnoses Chronic systolic heart failure SOB (shortness of breath) Coronary artery disease involving white earth heart, angina presence unspecified, unspecified vessel or lesion type Procedures NM Myocardial Perfusion Scan Pharmacologic Carito Cabrera MD [facility] [address] [facility] [place] [address] Referral ID Status Reason Start Date Expiration Date V isits Requested Visits Authorized [id number] Closed Specialty Service Requested 01/21/2017 01/21/2018 4 4 Encounter Details Date Type Department Care Team (Latest Contact Info) Description 02/17/2017 8:41 AM EDT Hospital Encounter [place] [address] Slim Summers MD [facility] [place] [address] Chronic systolic heart failure; SOB (shortness of breath); Coronary artery disease involving white earth heart, angina presence unspecified, unspecified vessel or [...] (shortness of breath) Coronary artery disease involving white earth heart, angina presence unspecified, unspecified vessel or [...] not fit into scanner. Slim Summers MD [facility] [place] ORDERABLES documented in this encounter Visit Diagnoses Diagnosis Chronic systolic heart failure SOB (shortness of breath) Shortness of breath Coronary artery disease involving white earth heart, angina presence unspecified, unspecified vessel or [...] mCi documented in this encounter Care Teams Seaport Planning Manager Relationship Specialty Start Date End Date Cherise Staples MD [address] [place] [address] PCP - General 07/31/10 10/04/19 documented as of this encounter
--- OUTSIDE RECORDS SUMMARY | 2024-08-20 10:53 | XMS_ITS | Encounter Summary ---
Author Organization [place] [address] Care Team Providers Care Loom Control Chain Builder Name Role Phone Cherise Staples MD Primary Care Provider [phone] Encounter Details Date Type Department Care Team (Latest Contact Info) Description 10/17/2015 12:42 PM EST - 10/17/2015 11:59 PM [facility] Hospital Encounter [place] [phone] [place], [place] Venous stasis ulcer of left lower [...] Text Report Department: Vascular Surgery Lab Patient: [id number] (LAZARO CROUCH) CPT: 70608 ICD10: L97.229;I83.029 Referring Physician: VERN FONTANEZ ?? [...] extremity documented in this encounter Care Teams Loom Control Chain Builder Relationship Specialty Start Date End Date Cherise Staples MD [address] [place] [address] PCP - General 07/31/10 10/04/19 documented as of this encounter
--- OUTSIDE RECORDS SUMMARY | 2024-08-20 10:54 | XMS_ITS | Encounter Summary ---
Author Organization [facility] [place] [address] Care Team Providers Care Oyster Grader Name Role Phone Cherise Staples MD Primary Care Provider [phone] Reason for Visit * Auth/Cert - Closed Specialty Diagnoses / Procedures Referred By Carla soto Referred To Contact Diagnoses Cholecystitis Pain Atrial fibrillation, unspecified cholangoangitis Procedures ERCP Referral ID Status Reason Start Date Expiration Date Visits Re quested Visits Authorized [id number] Closed 1 1 Encounter Details Date Type Department Care Team (Late st Contact Info) Description 09/01/2015 8:33 AM EST Anesthesia Event [place] [address] Howard Harrington MD [facility] [place] [address] Yossi Puga MD [facility] [place] [address] Anesthesia Record Procedure Summary Procedure Name Responsible [...] 1715; metacarpal vein right (top of hand); [id number]-vfi-[id number] catheter system; 16 gauge; Franky; Per order; [...] Puga MD - 09/01/2015 2:10 PM EST [facility] Department of Anesthesiology Post-procedure Note Patient: Jaime [...] SpO2 95 % (09/01/15 1400) Patient Location: PACU/[facility] Level of Consciousness: Awake and Alert Pain [...] ??? ASCVD (arteriosclerotic cardiovascular disease) 1993 first [place] 1992, stent to LAD in 2006 ??? [...] ASCVD s/p stent to LAD 2006 and [place] ~1992 EF in 08/2015 60%, h/o PE [...] 09/04/2015 1:08 PM EST Addendum created 09/04/15 5099 by Williams Shelton MD Modules edited: Anesthesia [...] mg documented in this encounter Care Teams Oyster Grader Relationship Specialty Start Date End Date Cherise Staples MD [address] [place] [address] PCP - General 07/31/10 10/04/19 documented as of this encounter
--- OUTSIDE RECORDS SUMMARY | 2024-08-20 10:54 | XMS_ITS | Encounter Summary ---
[place] [address] Care Team Providers Care Mechanical Manager Name Role Phone Cherise Staples MD Primary Care Provider [phone] Encounter Details Date Type Department Care Team (Late st Contact Info) Description 08/30/2015 [place] [phone] Cherise Staples MD [address] [place], [place] [id number] Social History Tobacco Use Types Packs/Day Years [...] ERCP (08/30/2015 2:05 PM EST) ERCP [facility] Patient Name: Jaime Crouch ? Procedure Date: 08/30/2015 2:05 PM ? Date of : 1945 ? Age: 69 ? Order #: [id number] ? Procedure: ? ERCP Indications: ? Suspected [...] the procedure well. ? Findings: ? The doctor of nurse anesthesia film was normal. The esophagus was ? [...] Procedure Code(s): ?? --- Professional --- ? 78228, Endoscopic retrograde ? cholangiopancreatography (ERCP); with ? sphincterotomy/papillotomy CPT copyright 2014 [employer]. All rights reserved. The codes documented in this report are preliminary and upon counter clerk tractor parts review may be revised to meet current compliance requirements. iNck Broussard MD 08/31/2015 7:29 AM This report has been signed electronically. Number of Addenda: 0 Note Initiated On: 08/30/2015 2:05 PM [employer]ATION 08/30/2015 2:05 PM EST Cherise Staples MD GENERAL SURGICAL ORD ERABLES [employer]ATION documented in this encounter Visit Diagnoses Not on filedocumented in this encounter Care Teams Mechanical Manager Relationship Specialty Start Date End Date Cherise Staples MD [address] [place] [address] PCP - General 07/31/10 10/04/19 documented as of this encounter
--- OUTSIDE RECORDS SUMMARY | 2024-08-20 10:54 | XMS_ITS | Encounter Summary ---
Author Organization [facility] Address [facility] [place] [address] Care Team Providers Care Information Technology Program Manager Name Role Phone Cherise Staples MD Primary Care Provider [phone] Reason for Visit * Auth/Cert - Closed Specialty Diagnoses / Procedures Referred By Carla soto Referred To Contact Diagnoses Cholecystitis Pain Atrial fibrillation, unspecified cholangoangitis Procedures ERCP Referral ID Status Reason Start Date Expiration Date Visits Re quested Visits Authorized [id number] Closed 1 1 Encounter Details Date Type Department Care Team (Latest Contact Info) Description 08/30/2015 - 08/30/2015 12:21 AM [facility] Hospital Encounter Radiology Library at [facility] [place] [address] Nick Broussard MD [facility] [place] [place] [address] Discharge Disposition: Home Social History Tobacco Use [...] Associated Diagnoses Date /Time FILM LIBRARY-FLUORO OR H-TXZ-HBRGLOM ONL Imaging Routine 08/30/2015 5:4 7 PM EST documented as of this encounter Visit Diagnoses Not on filedocumented in this encounter Care Teams Information Technology Program Manager Relationship Specialty Start Date End Date Cherise Staples MD [address] [place] [address] PCP - General 07/31/10 10/04/19 documented as of this encounter
--- OUTSIDE RECORDS SUMMARY | 2024-08-20 10:54 | XMS_ITS | Encounter Summary ---
Author Organization [facility] [place] [address] Care Team Providers Care Environmental Projects Advisor Name Role Phone Cherise Staples MD Primary Care Provider [phone] Reason for Visit * Reason Comments Abdominal Pain * Auth/Cert - Closed Specialty Diagnoses / Procedures Referred By Carla soto Referred To Contact Diagnoses Cholecystitis Pain Atrial fibrillation, unspecified cholangoangitis Procedures ERCP Referral ID Status Reason Start Date Expiration Date Visits Re quested Visits Authorized [id number] Closed 1 1 Encounter Details Date Type Department Care Team (Late st Contact Info) Description 08/30/2015 2:35 PM EST - 08/30/2015 3:59 PM EST Surgery [place] [id number] Nick Broussard MD [facility] [place] [address] ERCP (VU 5.85) Social History Tobacco Use [...] Jaime Crouch Patient Age: 69 y.o. Language: Chadian Race: White Ethnicity: Not nor Admit date: 08/30/2015 Discharge date and time: 09/02/2015 Attending Physician: Delroy Chu MD Discharge Physician: Delroy Chu MD Inpatient Provider Contact Information: For questions regarding this document or issues relating to this hospitalization on the Medical Service, please contact your inpatient physician through the [facility] Import Export Manager . Issues afterhours and on weekends will [...] prompted him to see care at the [facility] ED. There he was noted to have a WBC of 18, elevated LFTs, amylase and lipase. A CT scan was obtained which noted multiple gallstones. Pt was transferred to [facility] for further evaluation and care. Of note [...] 101.3 F. The number for questions is [phone] before 5 PM weekdays and [phone] after 5 PM and weekends. Pain Medication: [...] will be mailed to you. Please call [phone] (clinic number for appointments) to confirm date and time of your appointment if you do not receive your apointment in 3 weeks. General Instructions None Provider Contact Information: CHERISE STAPLES MD [address] / [facility] [id number] Discharge References/Attachments None documented in this encounter [...] 101.3 F. The number for questions is [phone] before 5 PM weekdays and [phone] after 5 PM and weekends. Pain Medication: [...] will be mailed to you. Please call [phone] (clinic number for appointments) to confirm date [...] 1240: ICU bed requested through Katy Mendez, Application Development Director 1252: Hold LR at [address] [...] placed on Boarder Status awaiting Transport. 1402: Application Development Director called to supply additional resources to transport [...] of two midnights or is on the [facility] inpatient only procedure list (status C) due [...] of two midnights or is on the [facility] inpatient only procedure list (status C) due [...] needs CM available Annemarie Diop RN CCM #[id number] * Howard Moya MD - 08/31/2015 10:37 AM EST Gastroenterology & Hepatology Progress Note Jaime Crouch 1945 [id number] PCP: CHERISE STAPLES MD Date of Admission: [...] ERCP performed by Nick Broussard MD at [facility] Medications Scheduled Meds: ??? [...] the OR tomorrow. Howard Moya MD, MS lapping machine operator Section of Gastroenterology and Hepatology * Makenzie [...] 7:07 PM EST 1899- Received report from [facility]. Pt awake alert VSS, moving all [...] EST Office of Care Management (OCM) / Tree Expert(CM)/ Initial Assessment Discussed patient with Provider Team and with staff developer. Reviewed record. REASON for HOSPITALIZATION: patient admitted on 08/29/15 in transfer from [facility] ED. Patient presented to ED with [...] Lili Peters DO S/p Vit K at [facility] - INR sub therapeutic - on lovenox bridge until INR 2-3 Previous Version TOM on CPAP G47.33 09/09/2014 Morbid obesity E66.01 09/20/2014 Hypertension (HTN) I10 09/20/2014 CAD I25.10 09/20/2014 Nonsustained ventricular tachycardia I47.2 09/20/2014 PREVIOUS FUNCTIONAL STATUS: independent CURRENT FUNCTIONAL STATUS: ambulating with assistance SOCIAL / FAMILY SUPPORTS: Leah, family/friends ADVANCE DIRECTIVES: On file here at [facility] HEALTH /PRESCRIPTION COVERAGE: Medicare (parts A and B) and [place] [employer] CURRENT HOME/COMMUNITY SERVICES/EQUIPMENT: DME: Patient uses CPAP at home BEHAVIORAL INTERVENTION SPECIALIST REFERRAL: not needed at this time PRIMARY CARE PHYSICIAN: CHERISE STAPLES MD [address] / [place] [address] DISCHARGE NEEDS: Discharge needs not known at [...] on CT scan. He was admitted to [facility] in September of this year for cholangitis [...] ??? ASCVD (arteriosclerotic cardiovascular disease) 1993 first ID 1992, stent to LAD in 2006 ??? [...] ERCP performed by Nick Broussard MD at [facility] ??? Pro ercp,diagnostic N/A 08/30/2015 ERCP performed by Nick Broussard MD at [facility] MA[facility] OR Allergies: No Known [...] %] ABG: No results for input(s): PHART, JUH0GPA, PO2ART, GIP4GTH in the last 168 hours. Physical Exam: [...] -- 33 No results for input(s): PHART, POA9HTL, PO2ART, TAA1IHF, BEART in the last 168 hours. ECG [...] tylenol and dilaudid IV, will add dilaudid propeller driven airplane mechanic if needed or if diet is advanced [...] from the original note were not included. [facility] Department of Surgery History of Present [...] prompted him to see care at the [facility] ED. There he was noted to have a WBC of 18, elevated LFTs, amylase and lipase. A CT scan was obtained which noted multiple gallstones. Pt was transferred to [facility] for further evaluation and care. Of note pt was admitted in September of 2014 for cholangitis, at that timehe was treated with a 7 day course of zosyn, and underwent an ERCP with sphincterotomy. Past Medical History: Past Medical History Diagnosis Date ??? Kidney stone ??? Hypertension ??? ASCVD (arteriosclerotic cardiovascular disease) 1993 first ID 1992, stent to LAD in 2006 ??? [...] pain resolved on the trip down from [facility], no pain on exam at present [...] a 69 y.o. male who presents to [facility] with increasing abdominal pain History of Present [...] Chambers MD - 09/01/2015 12:30 PM EST [facility] Operative Note Patient Name: Jaime Crouch : [id number] MR#: [id number] Case Date: 09/01/2015 Surgeon: Surgeon(s) and Role: [...] Operative Note Patient Name: Jaime Crouch : [id number] MR#: [id number] Case Date: 09/01/2015 Surgeon: Surgeon(s) and Role: [...] replaced after wound cleansed with dermal wound shafting cleaner. Pulses +1 doppler, +2 pitting edema [...] Nutrition Interventions: refer to dietitian Current bed: [facility] Assessment: Venous stasis ulceration with his left [...] 2. Apply Mepilex Transfer over wound (PS# [id number]) 3. Cover with ABD Pad or burn [...] A referral can be made by calling [phone] or by placing a [facility] wound referral. Discussed plan with: /JODY/PA: Dr. Heredia RN: Zahra Please contact PAUL JOHNSON RN on pager [phone] or the wound care team at [phone] or pager [phone] with skin and wound care concerns or [...] left leg is leaking brown/yellow fluid, wound sr. consultant at bedside, newbandage applied A/ox4, waiting [...] CONSULTATION Initial Consult Note Jaime Crouch 1945 [id number] Requesting Provider: Team Surgery REASON FOR CONSULTATION [...] occurred less frequently. When he presented to [facility] he wasfound to have WBC 18, [...] ??? ASCVD (arteriosclerotic cardiovascular disease) 1993 first ID 1993, stent to LAD in 2006 ??? [...] this admission. Continue amp/sul. Sarika Saini MD Self Pay Collectorfish pitcher Section of Gastroenter[place] [address] * Consult Note - Evette Young RCP [...] hospital, diltizem IV push was given at [facility]. Based on his heart rate jumping [...] AM EST Patient arrives by EMS from [facility] after having had abdominal pain this morning that increased as theday went on. Patient was diagnosed with cholecystitis at [facility] and comes here tonight to consult with surgery. A/Ox4, respirations even and unlabored. documented in this encounter Plan of Treatment Pending Results Name Type Priority Associated Diagnoses Date /Time Transfuse thawed plasma Blood Bank Routine 08/30/2015 2:49 PM EST FILM LIBRARY-FLUORO OR [id number] ONL Imaging Routine 08/30/2015 5:4 7 PM EST Scheduled Orders Name Type Priority Associated Diagnoses Orde r Schedule FILM LIBRARY-FLUORO OR G-[id number] ONL Imaging Routine Once PRN (f or Radiant use) for 1 Occurrences starting 08/30/2015 until 08/30/2015 FILM LIBRARY-FLUORO OR [id number] ONL Imaging Routine Once PRN (f or Radiant use) for 1 Occurrences starting 09/01/2015 until 09/01/2015 documented as of this encounter Procedures Procedure Name Priority Date/Time Associated Diagnosis Comments LAB SCAN 09/03/2015 12:00 AM EST DIRECT MAIL CLERK SCAN 09/03/2015 12:00 AM EST ECG SCAN [...] SCAN EXT O RDR/RSLT * SCAN DOC: DIRECT MAIL CLERK (09/03/2015 12:00 AM EST) Anatomical Region Laterality Modality Other Scanning Provider MEDIA MGR SCAN EXT O RDR/RSLT * SCAN DOC: ECG (09/03/2015 12:00 AM EST) Scanning Provider MEDIA MGR SCAN EXT O RDR/RSLT * (ABNORMAL) CMP w/fasting Glucose (09/02/2015 2:10 AM EST) [facility] Glucose Fasting 151(H) 65 - 99 mg/dL [facility] Comment: ?Fasting* Glucose Interpretive Criteria Normal [...] of Diabetes Mellitus, Position Statement from the [place] [employer]. ??Diabetes Care, Volume 33, Supplement 1, Sep 2009 Blood Urea Nitrogen 16 10 - 20 mg/dL [facility]ILLENNIUM Creatinine 0.90 0.80 - 1.50 mg/dL [facility]ILLENNI[facility] Comment: Please note that the pediatric reference intervals supplied above were not validated at [facility]. Results from pediatric patients should be interpreted [...] the following links into your internet browser. [email or web address] Blood specimen (specimen) 09/02/2015 2:10 AM EST 09/02/2015 2:23 AM EST Narrative Resulting Agency Comment Spec In Lab Delroy Chu MD CHEMISTRY ORDERABLES Performing Organization Address [facility] de Phone Number CERNER MILLENNIUM * (ABNORMAL) Phosphorus (09/02/2015 2:10 AM EST) Phosphorus 2.4(L) 2.5 - 4.5 mg/dL [facility] MILLENNIUM Blood specimen (specimen) 09/02/2015 2:10 AM EST 09/02/2015 2:23 AM EST Narrative Resulting Agency Comment Spec In Lab Delroy Chu MD CHEMISTRY ORDERABLES Performing Organization Address [facility] de Phone Number CERNER MILLENNIUM [...] 45 mmHg [facility] MILLENNI[facility] Comment:Noted by instrument sterilizer. PO2, Arterial 271(H) 85 - 104 mmHg [...] Report (09/01/2015 11:56 AM EST) Final Diagnosis [id number] ? Location: [facility]; [facility]; A The signing pathologist has (i) examined [...] ORDERABLES MAXIMO NERI [facility] [place] [address] * Specimen to Pathology (surgical or derm) (09/01/2015 11:56 AM EST) AP Specimen 09/01/2015 11:5 6 AM EST 09/01/2015 11:56 AM EST Narrative [facility] - 09/01/2015 11:56 AM [...] MD POINT OF CARE TEST O RDERABLES [facility] * (ABNORMAL) CMP w/fasting Glucose (09/01/2015 [...] of Diabetes Mellitus, Position Statement from the [place] [employer]. ??Diabetes Care, Volume 33, Supplement 1, Sep 2009 Blood Urea Nitrogen 15 10 - 20 mg/dL CERNER MILLENNIUM Creatinine 0.86 0.80 - 1.50 mg/dL [facility] MILLENNIUM Comment: Please note that the pediatric reference intervals supplied above were not validated at [facility]. Results from pediatric patients should be interpreted [...] the following links into your internet browser. [email or web address] Blood specimen (specimen) 09/01/2015 4:01 AM EST 09/01/2015 4:06 AM EST Narrative Resulting Agency Comment Spec In Lab Delroy Chu MD CHEMISTRY ORDERABLES Performing Organization Address [facility] de Phone Number CERNER MILLENNIUM * (ABNORMAL) Phosphorus (09/01/2015 4:01 AM EST) Phosphorus 2.0(L) 2.5 - 4.5 mg/dL [facility] MILLENNIUM Blood specimen (specimen) 09/01/2015 4:01 AM EST 09/01/2015 4:06 AM EST Narrative Resulting Agency Comment Spec In Lab Delroy Chu MD CHEMISTRY ORDERABLES Performing Organization Address [facility] de Phone Number CERNER MILLENNIUM [...] of variation 17.9(H) 10.9 - 14.4 % [facility] Mean Platelet Volume 9.0 9.0 - 12.0 fL [facility] Blood specimen (specimen) 09/01/2015 4:01 AM EST 09/01/2015 4:06 AM EST Narrative Resulting Agency Comment Spec In Lab Delroy Chu MD HEMATOLOGY ORDERABLE S Performing Organization Address [facility] de Phone Number [facility] * (ABNORMAL) Hepatitis A Antibody, Total (08/31/2015 3:38 PM EST) Pathologist [facility] Hepatitis A ANTIBODY, TOTAL Positive(A ) Negative [facility] Blood specimen (specimen) 08/31/2015 3:38 PM EST 08/31/2015 3:45 PM EST Narrative Resulting Agency Comment Spec In Lab Delroy Chu MD CHEMISTRY ORDERABLES Performing Organization Address [facility] de Phone Number [facility] * Hepatitis C RNA, quantitative, PCR (08/31/2015 3:38 PM EST) Pathologist [facility] HCV Viral Load <15 IU/mL [facility] HCV Viral Load Result: <15 IU/mL [...] This assay is being performed in the [facility] Molecular Pathology Laboratory. Logan Khan, Ph.D. Director, Molecular Pathology [facility] Comment: [VERIFIED DATE]09.05.15 Verified By:Katy Monzon (Electronic Signature) Blood specimen (specimen) 08/31/2015 3:38 PM EST 09/04/2015 10:42 AM EST Narrative Resulting Agency Comment Spec In Lab Delroy Chu MD MOLECULAR ORDERABLES Performing Organization Address [facility] de Phone Number [facility] * Hepatitis A Antibody, IgM (08/31/2015 3:38 PM EST) Hepatitis A Antibody, IgM Negative Negative [facility] Blood specimen (specimen) 08/31/2015 3:38 PM EST 08/31/2015 3:45 PM EST Narrative Resulting Agency Comment Spec In Lab Delroy Chu MD CHEMISTRY ORDERABLES Performing Organization Address [facility] Phone Number [facility] * Hepatitis B Surface Antibody (08/31/2015 3:38 PM EST) Hepatitis B Surface Antibody Positive [facility] Comment: Expected Results: Vaccinated: Positive Unvaccinated: [...] Chu MD CHEMISTRY ORDERABLES Performing Organization Address [facility] Phone Number [facility] * Hepatitis B Surface Antigen (08/31/2015 3:38 PM EST) Hepatitis B Surface Antigen Negative Negative [facility] Blood specimen (specimen) 08/31/2015 3:38 PM EST 08/31/2015 3:45 PM EST Narrative Resulting Agency Comment Spec In Lab Delroy Chu MD CHEMISTRY ORDERABLES Performing Organization Address [facility] Phone Number [facility] * Hepatitis C Antibody (08/31/2015 3:38 PM EST) Hepatitis C Antibody Negative Negative [facility] Blood specimen (specimen) 08/31/2015 3:38 PM EST 08/31/2015 3:45 PM EST Narrative Resulting Agency Comment Spec In Lab Delroy Chu MD CHEMISTRY ORDERABLES Performing Organization Address [facility] Phone Number [facility] * Lactate, whole blood, send to lab (08/31/2015 3:38 PM EST) Lactate WB 1.4 0.5 - 2.2 mmol/L [facility] Blood specimen (specimen) 08/31/2015 3:38 PM EST 08/31/2015 3:45 PM EST Narrative Resulting Agency Comment Spec In Lab Delroy Chu MD CHEMISTRY ORDERABLES Performing Organization Address [facility] Phone Number [facility] * Blood culture (08/31/2015 9:45 AM EST) Blood Culture No growth at 5 days. [facility] Blood specimen (specimen) STRUCTURE OF RIGHT HAND / Unknown 08/31/2015 9:45 AM EST 08/31/2015 10:16 AM EST Comment:DRAW BLOOD CULTURES BEFORE ADMINISTERING ANTIBIOTICS Narrative Resulting Agency Comment Spec In Lab Delroy Chu MD MICROBIOLOGY - BLOOD ORDERABLES Performing Organization Address [facility] Phone Number [facility] * (ABNORMAL) CMP w/fasting Glucose (08/31/2015 9:35 AM EST) Glucose Fasting 115(H) 65 - 99 mg/dL [facility] Comment: ?Fasting* Glucose Interpretive Criteria Normal [...] of Diabetes Mellitus, Position Statement from the [place] [employer]. ??Diabetes Care, Volume 33, Supplement 1, Sep 2009 Blood Urea Nitrogen 18 10 - 20 mg/dL [facility] MILLENNIUM Creatinine 0.92 0.80 - 1.50 mg/dL [facility] MILLENNIUM Comment: Please note that the pediatric reference intervals supplied above were not validated at [facility]. Results from pediatric patients should be interpreted [...] the following links into your internet browser. [email or web address] Blood specimen (specimen) STRUCTURE OF LEFT HAND / Unknown Venous Draw / Unknown 08/31/2015 9:35 AM EST 08/31/2015 10:14 AM EST Comment:Draw blood Cultures before administering antibiotics Narrative Resulting Agency Comment Spec In Lab Delroy Chu MD CHEMISTRY ORDERABLES Performing Organization Address [facility] Co de Phone Number MAXIMO NERI * Amylase (08/31/2015 9:35 AM EST) Amylase 32 28 - 100 unit/L [facility] Blood specimen (specimen) STRUCTURE OF LEFT HAND / Unknown Venous Draw / Unknown 08/31/2015 9:35 AM EST 08/31/2015 10:14 AM EST Comment:Draw blood Cultures before administering antibiotics Narrative Resulting Agency Comment Spec In Lab Delroy Chu MD CHEMISTRY ORDERABLES Performing Organization Address [facility] de Phone Number MAXIMO NERI * Gold Tube HOLD (08/31/2015 9:35 AM EST) Gold Hold Sample in lab. MAXIMO NERI Blood specimen (specimen) Venous Draw / Unknown 08/31/2015 9:35 AM EST 08/31/2015 10:13 AM EST Comment:Draw blood Cultures before administering antibiotics Delroy Chu MD CHEMISTRY ORDERABLES Performing Organization Address [facility] de Phone Number MAXIMO NERI [...] MD HEMATOLOGY ORDERABLE S Performing Organization Address [facility] de Phone Number [facility] * Lactate, whole blood, send to lab (08/31/2015 9:34 AM EST) Lactate WB 1.1 0.5 - 2.2 mmol/L [facility] Blood specimen (specimen) 08/31/2015 9:34 AM EST 08/31/2015 9:41 AM EST Narrative Resulting Agency Comment Spec In Lab Delroy Chu MD CHEMISTRY ORDERABLES Performing Organization Address [facility] de Phone Number [facility] * (ABNORMAL) Phosphorus (08/31/2015 9:34 AM EST) Phosphorus 2.3(L) 2.5 - 4.5 mg/dL [facility] Blood specimen (specimen) 08/31/2015 9:34 AM EST 08/31/2015 9:57 AM EST Narrative Resulting Agency Comment Spec In Lab Delroy Chu MD CHEMISTRY ORDERABLES Performing Organization Address [facility] de Phone Number [facility] * (ABNORMAL) BMP w/fasting Glucose (08/31/2015 9:34 AM EST) Glucose Fasting 120(H) 65 - 99 mg/dL [facility] Comment: ?Fasting* Glucose Interpretive Criteria Normal [...] of Diabetes Mellitus, Position Statement from the [place] Diabetes [employer]. ??Diabetes Care, Volume 33, Supplement 1, Sep 2009 Blood Urea Nitrogen 18 10 - 20 mg/dL [facility] MILLENNIUM Creatinine 0.91 0.80 - 1.50 mg/dL [facility]NI[facility] Comment: Please note that the pediatric reference intervals supplied above were not validated at [facility]. Results from pediatric patients should be interpreted [...] the following links into your internet browser. [email or web address] Blood specimen (specimen) 08/31/2015 9:34 AM EST 08/31/2015 9:57 AM EST Narrative Resulting Agency Comment Spec In Lab Delroy Chu MD CHEMISTRY ORDERABLES [facility] * (ABNORMAL) Hemogram (08/31/2015 9:34 AM EST) [...] Lab Delroy Chu MD HEMATOLOGY ORDERABLE S [facility] * Lactate, whole blood, send to lab (08/31/2015 4:37 AM EST) Lactate WB 1.5 0.5 - 2.2 mmol/L [facility] Blood specimen (specimen) 08/31/2015 4:37 AM EST 08/31/2015 4:46 AM EST Narrative Resulting Agency Comment Spec In Lab Delroy Chu MD CHEMISTRY ORDERABLES [facility] * Lactate, whole blood, send to lab (08/30/2015 8:59 PM EST) Lactate WB 1.1 0.5 - 2.2 mmol/L [facility] Blood specimen (specimen) 08/30/2015 8:59 PM EST 08/30/2015 9:04 PM EST Narrative Resulting Agency Comment Spec In Lab Delroy Chu MD CHEMISTRY ORDERABLES Performing Organization Address [facility] Phone Number [facility] * (ABNORMAL) [...] MD HEMATOLOGY ORDERABLE S Performing Organization Address [facility] Phone Number MAXIMO NERI * Prepare thawed plasma (08/30/2015 4:35 PM EST) Dispensed? Yes [facility] N[facility]I Blood specimen (specimen) 08/30/2015 4:35 PM EST 08/30/2015 4:34 PM EST Narrative Resulting Agency Comment Spec In Lab Delroy Chu MD BLOOD BANK PRODUCT O RDERABLES Performing Organization Address [facility] de Phone Number MAXIMO NERI [...] MD HEMATOLOGY ORDERABLE S Performing Organization Address [facility] Co de Phone Number MAXIMO NERI * Prepare thawed plasma (08/30/2015 3:00 PM EST) Dispensed? No [facility] NERI Blood specimen (specimen) 08/30/2015 3:00 PM EST 08/30/2015 2:57 PM EST Narrative Resulting Agency Comment Spec In Lab Delroy Chu MD BLOOD BANK PRODUCT O RDERABLES Performing Organization Address [facility] Co de Phone Number MAXIMO NEIR * Lactate, whole blood, send to lab (08/30/2015 3:00 PM EST) Lactate WB 1.4 0.5 - 2.2 mmol/L [facility] Blood specimen (specimen) 08/30/2015 3:00 PM EST 08/30/2015 3:07 PM EST Narrative Resulting Agency Comment Spec In Lab Delroy Chu MD CHEMISTRY ORDERABLES Performing Organization Address [facility] de Phone Number MAXIMO NERI [...] ?RAINA WILLIS ?(Age): 1945(69y) Med Rec#: ? [id number] ?Sex: ?M ? Site Loc: ? [facility] ?Ht / Wt: ??178(cm)/186(kg) Pt. Loc: ?Adult Floor ? BSA: ?2.83 Study Date: ?? 08/30/2015 ?Pt. Type: Inpatient Tape: ? Referring: JOHN EGAN T Referring: Delroy Chu Reading: Jaime Nguyen ([id number]) Academic Associate: Tamia Haines Diagnosis: *ICD-10-PCS Encounter for other preprocedural examination (Z01.818) *ICD-10-PCS Unspecified atrial fibrillation (I48.91) CPT Codes: *Echo Full (73640) *Spectral Doppler (30819) *Color Doppler (00998) Rhythm: ? A-Fib BP: ? 117/66 SUMMARY: [...] ? Mid-Inferior ?Normal ? Mid-Inferoseptal ?Normal ? [place]-Septal ? Normal ? [place]-Anterior ? Normal ? [place]-Lateral ?Normal ? [place]-Inferior ? Normal ? [place]-Tip ?Normal ? This report has been electronically signed by: Jaime Nguyen MD ? 08/30/2015 11:54:10 Images reviewed and interpretation verified [facility] Cardiac Ultrasound Laboratory Procedure Note Jaime Nguyen MD - 08/30/2015 Procedure: Transthoracic Echocardiogram Patient: RAINA WILLIS (Age): 1945(69y) Med Rec#: [id number] Sex: M [place] [facility]t / Wt: 178(cm)/186(kg) Pt. Loc: Adult Floor BSA: 2.83 Study Date: 08/30/2015 Pt. Type: Inpatient Tape: Referring: JOHN EGAN T Referring: Delroy Chu Reading: Jaime Nguyen ([id number]) Academic Associate: Tamia Haines Diagnosis: *ICD-10-PCS Encounter for other preprocedural examination (Z01.818) *ICD-10-PCS Unspecified atrial fibrillation (I48.91) CPT Codes: *Echo Full (14043) *Spectral Doppler (78626) *Color Doppler (65601) Rhythm: A-Fib BP: 117/66 SUMMARY: 1. The [...] Normal Mid-Posterolateral Normal Mid-Inferior Normal Mid-Inferoseptal Normal [place]-Septal Normal [place]-Anterior Normal [place]-Lateral Normal [place]-Inferior Normal [place]-Tip Normal This report has been electronically signed by: Jaime Nguyen MD 08/30/2015 11:54:10 Images reviewed and interpretation verified [facility] Cardiac Ultrasound Laboratory Delroy Chu MD ECHO ORDERABLES * Antibody screen (08/30/2015 9:11 AM EST) Ab Screen Interp Negative [facility] Expires at [id number] on: 09/02/2015 [facility] Blood specimen (specimen) 08/30/2015 9:11 AM EST 08/30/2015 10:23 AM EST Narrative Resulting Agency Comment Spec In Lab Delroy Chu MD BLOOD BANK LAB ORDER JESSIE Performing Organization Address City/[facility] Co de Phone Number [facility] * ABO/Rh Typing (08/30/2015 9:11 AM EST) [facility] ABORH Type O Pos [facility] Blood specimen (specimen) 08/30/2015 9:11 AM EST 08/30/2015 10:23 AM EST Narrative Resulting Agency Comment Spec In Lab Delroy Chu MD BLOOD BANK LAB ORDER JESSIE Performing Organization Address City/[facility] Co de Phone Number [facility] * Lactate, whole blood, send to lab (08/30/2015 9:11 AM EST) [facility] Lactate WB 1.4 0.5 - 2.2 mmol/L [facility] Comment:Results rechecked-mk f Blood specimen (specimen) 08/30/2015 9:11 AM EST 08/30/2015 9:15 AM EST Narrative Resulting Agency Comment Spec In Lab Delroy Chu MD CHEMISTRY ORDERABLES Performing Organization Address City/[facility]/ZIP Co de Phone Number [facility] * Prepare thawed plasma (08/30/2015 7:30 AM EST) Pathologist [facility] Dispensed? Yes [facility] Blood specimen (specimen) 08/30/2015 7:30 AM EST 08/30/2015 7:33 AM EST Narrative Resulting Agency Comment Spec In Lab Delroy Chu MD BLOOD BANK PRODUCT O RDERABLES Performing Organization Address [facility] Co de Phone Number CERDENISE BOWENENNIUM * EKG 12 Lead (08/30/2015 1:28 AM EST) Pathologist [facility] Ventricular rate 130 BPM MUSE SYSTEM Atrial Rate 144 BPM MUSE SYSTEM QRS Duration 100 ms MUSE SYSTEM Q-T Interval 322 ms MUSE SYSTEM QTC Calculated (Bezet) 473 ms MUSE SYSTEM Calculated R [place] 84 degrees MUSE SYSTEM Calculated T [place] 48 degrees MUSE SYSTEM INTERPRETATION Atrial fibrillation [...] Chu MD ECG ORDERABLES Performing Organization Address [facility] de Phone Number MUSE SYSTEM * (ABNORMAL) Differential, Manual (08/30/2015 1:25 AM EST) Pathologist [facility] Neutrophil % Manual 78 % CERNER MILLENNIUM [...] MD HEMATOLOGY ORDERABLE S Performing Organization Address City/[facility] Co de Phone Number [facility]ER [facility]ILL[facility]NI[facility] * Gold Tube HOLD (08/30/2015 1:25 AM EST) Pathologist [facility] Gold Hold Sample in lab. [facility]ERNER MILLENNIUM Blood specimen (specimen) Venous Draw / Unknown 08/30/2015 1:25 AM EST 08/30/2015 1:32 AM EST Delroy Chu MD CHEMISTRY ORDERABLES Performing Organization Address City/[facility] Co de Phone Number CERDENISE BOWENENNIUM * (ABNORMAL) Basic Metabolic Panel (non-fasting) (08/30/2015 1:25 AM EST) Pathologist [facility] Glucose 122 65 - 199 mg/dL [facility] Comment:Diabetes: >=200 mg/d L plus symptoms Blood Urea Nitrogen 14 10 - 20 mg/dL [facility] Creatinine 0.91 0.80 - 1.50 mg/dL [facility]ERN[facility] MILLENNIUM Comment: Please note that the pediatric reference intervals supplied above were not validated at [facility] Results from pediatric patients should be interpreted [...] the following links into your internet browser. [email or web address] Blood specimen (specimen) Venous Draw / Unknown [...] MD HEMATOLOGY ORDERABLE S Performing Organization Address [facility] de Phone Number MAXIMO BOWENENNIUM * Lipase (08/30/2015 1:25 AM EST) Lipase 33 0 - 60 unit/L [facility]ERNER MILLENNIUM Blood specimen (specimen) 08/30/2015 1:25 AM EST 08/30/2015 1:30 AM EST Narrative Resulting Agency Comment Spec In Lab Delroy Chu MD CHEMISTRY ORDERABLES Performing Organization Address [facility] de Phone Number MAXIMO BOWENENNIUM [...] Chu MD CHEMISTRY ORDERABLES Performing Organization Address City/[facility] de Phone Number MAXIMO NERI * (ABNORMAL) Lactate, whole blood, send to lab (08/30/2015 1:25 AM EST) Lactate WB 3.2(H) 0.5 - 2.2 mmol/L [facility] Blood specimen (specimen) 08/30/2015 1:25 AM EST 08/30/2015 1:30 AM EST Narrative Resulting Agency Comment Spec In Lab Delroy Chu MD CHEMISTRY ORDERABLES Performing Organization Address [facility] Phone Number MAXIMO NERI * APTT (08/30/2015 1:25 AM EST) Partial Thromboplastin Time 33 25 - 35 sec [facility] Comment: Recommended therapeutic PTT range for full dose unfractionated heparin is 80-114 seconds. Blood specimen (specimen) 08/30/2015 1:25 AM EST 08/30/2015 1:30 AM EST Narrative Resulting Agency Comment Spec In Lab Delroy Chu MD HEMATOLOGY ORDERABLE S Performing Organization Address [facility] Phone Number MAXIMO NERI * (ABNORMAL) Prothrombin Time (08/30/2015 1:25 AM EST) Prothrombin Time 26.1(H) 12.0 - 15.0 sec [facility]ENCOB[facility] Comment: Transfusion Committee Guidelines: INR less than 2.0, PTT less than OR equal to 43.5 seconds, or Fibrinogen greater than or equal to 100 mg/dl indicate adequate procoagulant activity for hemostasis in patients without underlying bleeding disorders. International Normalization Ratio 2.3(H) 0.9 - 1.1 [facility] Blood specimen (specimen) 08/30/2015 1:25 AM EST 08/30/2015 1:30 AM EST Narrative Resulting Agency Comment Spec In Lab Delroy Chu MD HEMATOLOGY ORDERABLE S Performing Organization Address [facility] Phone Number CERNER MILLENNIUM * Film Library- Storage only DX Chest (08/29/2015 12:05 AM EST) Narrative User, Raad Transmittal - 08/29/2015 10:42 PM EST See PACS for result report. Marla May MD [facility] FILM LIBRARY ORD ERABLES * Film Library- Storage Only CT Abdomen & Pelvis (08/29/2015 12:00 AM EST) Narrative User, Raad Transmittal - 08/29/2015 10:38 PM EST See PACS for result report. Marla May MD [facility] FILM LIBRARY ORD ERABLES documented in this [...] - Provider: Admin Adt)2015 (Given - Provider: Flornida Peralta RN) 0913 (Given - Provider: Hira [...] 1315 (Not Given - Provider: Elmo Peralta [employer] - Reason: See comment - Comment: Albuterol [...] Routine documented in this encounter Care Teams Environmental Projects Advisor Relationship Specialty Start Date End Date Cherise Staples MD [address] [place] [address] PCP - General 07/31/10 10/04/19 documented as of this encounter
--- OUTSIDE RECORDS SUMMARY | 2024-08-20 10:54 | XMS_ITS | Encounter Summary ---
Author Organization [facility] [place] [address] Care Team Providers Care Legal Counsel Name Role Phone Cherise Staples MD Primary Care Provider [phone] Reason for Visit * Reason Comments Abdominal Pain * Auth/Cert - Closed Specialty Diagnoses / Procedures Referred By Carla soto Referred To Contact Diagnoses Cholecystitis Pain Atrial fibrillation, unspecified cholangoangitis Procedures ERCP Referral ID Status Reason Start Date Expiration Date Visits Re quested Visits Authorized [id number] Closed 1 1 Encounter Details Date Type Department Care Team (Late st Contact Info) Description 09/01/2015 7:30 AM EST - 09/01/2015 10:49 AM EST [place] [address] Jay Chambers MD [facility] [place] [address] LAPAROSCOPIC CHOLECYSTECTOMY (WRVU 10.47) Social History Tobacco [...] Jaime Crouch Patient Age: 69 y.o. Language: Amharic Race: White Ethnicity: Not nor Admit date: 08/30/2015 Discharge date and time: 09/02/2015 Attending Physician: Delroy Chu MD Discharge Physician: Delroy Chu MD Inpatient Provider Contact Information: For questions regarding this document or issues relating to this hospitalization on the Medical Service, please contact your inpatient physician through the [facility] Real Estate Developer . Issues afterhours and on weekends will [...] him to see care at the [facility] ED. There he was noted to have a WBC of 18, elevated LFTs, amylase and lipase. A CT scan was obtained which noted multiple gallstones. Pt was transferred to [facility] for further evaluation and [...] 101.3 F. The number for questions is [phone] before 5 PM weekdays and [phone] after 5 PM and weekends. Pain Medication: [...] will be mailed to you. Please call [phone] (clinic number for appointments) to confirm date and time of your appointment if you do not receive your apointment in 3 weeks. General Instructions None Provider Contact Information: CHERISE STAPLES MD [address] / [facility] [id number] Discharge References/Attachments None documented in this encounter [...] 101.3 F. The number for questions is [phone] before 5 PM weekdays and [phone] after 5 PM and weekends. Pain Medication: [...] will be mailed to you. Please call [phone] (clinic number for appointments) to confirm date [...] 1240: ICU bed requested through [facility] 1252: Hold LR at [address] [...] placed on Boarder Status awaiting Transport. 1402: [facility] called to supply additional resources to transport [...] of two midnights or is on the [facility] inpatient only procedure list (status C) due [...] of two midnights or is on the [facility] inpatient only procedure list (status C) due [...] & Hepatology Progress Note Jaime Gallardoaio 1945 [id number] PCP: HCERISE STAPLES MD Date of Admission: 08/30/2015 ( [...] ERCP performed by Nick Broussard MD at [facility] Medications Scheduled Meds: ??? ampicillin-sulbactam [...] the OR tomorrow. Howard Moya MD, MS reformatory attendant Section of Gastroenterology and Hepatology * Makenzie [...] 7:07 PM EST 1899- Received report from [place] [facility]. Pt awake alert VSS, moving all extremities, [...] EST Office of Care Management (OCM) / Information Systems Technician(CM)/ Initial Assessment Discussed patient with Provider Team and with staffing rn. Reviewed record. REASON for HOSPITALIZATION: patient admitted on 08/29/15 in transfer from [facility] ED. Patient presented to ED with RUQ [...] family/friends ADVANCE DIRECTIVES: On file here at [facility] HEALTH /PRESCRIPTION COVERAGE: Medicare (parts A and B) and [place] BC/BS [employer] CURRENT HOME/COMMUNITY SERVICES/EQUIPMENT: DME: Patient uses CPAP at home COMPOSITE BOND WORKER REFERRAL: not needed at this time PRIMARY CARE PHYSICIAN: CHERISE STAPLES MD [address] / [place] [address] DISCHARGE NEEDS: Discharge needs not known at [...] on CT scan. He was admitted to [facility] in September of this [...] ??? ASCVD (arteriosclerotic cardiovascular disease) 1993 first [place] 1992, stent to LAD in 2006 ??? [...] ERCP performed by Nick Broussard MD at [facility] ??? Pro ercp,diagnostic N/A 08/30/2015 ERCP performed by Nick Broussard MD at [facility] OR Allergies: No Known Allergies [...] %] ABG: No results for input(s): PHART, NPY1BEM, PO2ART, NVS2WDI in the last 168 hours. Physical Exam: [...] -- 33 No results for input(s): PHART, JFX3UQB, PO2ART, XRM5DMB, BEART in the last 168 hours. ECG [...] tylenol and dilaudid IV, will add dilaudid glassblower if needed or if diet is advanced [...] from the original note were not included. [facility] Department of Surgery History of Present Illness: [...] him to see care at the [facility] ED. There he was noted to have a WBC of 18, elevated LFTs, amylase and lipase. A CT scan was obtained which noted multiple gallstones. Pt was transferred to [facility] [place] further evaluation and care. Of note pt was admitted in September of 2014 for cholangitis, at that timehe was treated with a 7 day course of zosyn, and underwent an ERCP with sphincterotomy. Past Medical History: Past Medical History Diagnosis Date ??? Kidney stone ??? Hypertension ??? ASCVD (arteriosclerotic cardiovascular disease) 1993 first [place] 1992, stent to LAD in 2006 ??? [...] resolved on the trip down from [facility], no pain on exam at present ?? [...] a 69 y.o. male who presents to [facility] with increasing abdominal pain [...] Chambers MD - 09/01/2015 12:30 PM EST [facility] Operative Note Patient Name: Jaime Crouch : [id number] MR#: [id number] Case Date: 09/01/2015 Surgeon: Surgeon(s) and Role: [...] Operative Note Patient Name: Jaime Crouch : [id number] MR#: [id number] Case Date: 09/01/2015 Surgeon: Surgeon(s) and Role: * Jay Chambers MD - Primary * Rudi eRardon DO - Resident-Surgeon Marcelino Preoperative diagnosis: acute [...] replaced after wound cleansed with dermal wound creel cleaner. Pulses +1 doppler, +2 pitting edema [...] Nutrition Interventions: refer to dietitian Current bed: [facility] AIR Assessment: Venous stasis ulceration with [...] 2. Apply Mepilex Transfer over wound (PS# [id number]) 3. Cover with ABD Pad or burn [...] A referral can be made by calling [phone] or by placing a [facility] wound referral. Discussed plan with: /JODY/PA: Dr. Heredia RN: Zahra Please contact PAUL JOHNSON RN on pager [phone] or the wound care team at [phone] or pager [phone] with skin and wound care concerns or [...] left leg is leaking brown/yellow fluid, wound informatics consultant at bedside, newbandage applied A/ox4, waiting [...] CONSULTATION Initial Consult Note Jaime Crouch 1945 [id number] Requesting Provider: Team Surgery REASON FOR CONSULTATION [...] less frequently. When he presented to [facility] he wasfound to have WBC 18, elevated [...] ??? ASCVD (arteriosclerotic cardiovascular disease) 1993 first [place] 1993, stent to LAD in 2006 ??? [...] this admission. Continue amp/sul. Sarika Saini MD Glassware Verifierfull stack software developer Section of Gastroenterology [place] [address] * Consult Note - Evette Young RCP [...] hospital, diltizem IV push was given at [facility] [place]. Based on his [...] EST Patient arrives by EMS from [facility] after having had abdominal pain this morning that increased as theday went on. Patient was diagnosed with cholecystitis at [facility] and comes here tonight to consult with surgery. A/Ox4, respirations even and unlabored. documented in this encounter Plan of Treatment Pending Results Name Type Priority Associated Diagnoses Date /Time Transfuse thawed plasma Blood Bank Routine 08/30/2015 2:49 PM EST FILM LIBRARY-FLUORO OR [id number] ONL Imaging Routine 08/30/2015 5:4 7 PM EST Scheduled Orders Name Type Priority Associated Diagnoses Orde r Schedule FILM LIBRARY-FLUORO OR [id number] ONL Imaging Routine Once PRN (f or Radiant use) for 1 Occurrences starting 08/30/2015 until 08/30/2015 FILM LIBRARY-FLUORO OR [id number] ONL Imaging Routine Once PRN (f or Radiant use) for 1 Occurrences starting 09/01/2015 until 09/01/2015 documented as of this encounter Procedures Procedure Name Priority Date/Time Associated Diagnosis Comments LAB SCAN 09/03/2015 12:00 AM EST LECTURER OF [place] SCAN 09/03/2015 12:00 AM EST ECG SCAN [...] SCAN EXT O RDR/RSLT * SCAN DOC: LECTURER OF [place] (09/03/2015 12:00 AM EST) Anatomical Region Laterality Modality Other Scanning Provider MEDIA MGR SCAN EXT O RDR/RSLT * SCAN DOC: ECG (09/03/2015 12:00 AM EST) Scanning Provider MEDIA MGR SCAN EXT O RDR/RSLT * (ABNORMAL) CMP w/fasting Glucose (09/02/2015 2:10 AM EST) [facility] Glucose Fasting 151(H) 65 - 99 mg/dL [facility] Comment: ?Fasting* Glucose Interpretive Criteria Normal ?65-99 [...] of Diabetes Mellitus, Position Statement from the [place] [employer]. ??Diabetes Care, Volume 33, Supplement 1, Sep 2009 Blood Urea Nitrogen 16 10 - 20 mg/dL CERNER MILLENNIUM Creatinine 0.90 0.80 - 1.50 mg/dL CERNER MILLENNIUM Comment: Please note that the pediatric reference intervals supplied above were not validated at [facility]. Results from pediatric patients [...] the following links into your internet browser. [email or web address] Blood specimen (specimen) 09/02/2015 2:10 AM EST 09/02/2015 2:23 AM EST Narrative Resulting Agency Comment Spec In Lab Delroy Chu MD CHEMISTRY ORDERABLES Performing Organization Address [facility] de Phone Number CERNER MILLENNIUM * (ABNORMAL) Phosphorus (09/02/2015 2:10 AM EST) Phosphorus 2.4(L) 2.5 - 4.5 mg/dL CERNER MILLENNIUM Blood specimen (specimen) 09/02/2015 2:10 AM EST 09/02/2015 2:23 AM EST Narrative Resulting Agency Comment Spec In Lab Delroy Chu MD CHEMISTRY ORDERABLES Performing Organization Address [facility] de Phone Number CERNER MILLENNIUM * [...] - 45 mmHg CERNER MILLENNIUM Comment:Noted by brass instrument repair technician. PO2, Arterial 271(H) 85 - 104 [...] Report (09/01/2015 11:56 AM EST) Final Diagnosis [id number] ? Location: [facility]; [facility] [place]; A The signing pathologist has (i) examined [...] fundus. (R2) ??kef/shb 09/05/2015 11:18 AM EST [facility] GALLBLADDER STRUCTURE / Unknown 09/01/2015 11:56 AM EST 09/01/2015 11:56 AM EST Jay Chambers MD PATHOLOGY/CYTOLOGY ORDERABLES MAXIMO NERI [facility] [place] [address] * Specimen to Pathology (surgical or derm) (09/01/2015 11:56 AM EST) AP Specimen 09/01/2015 11:5 6 AM EST 09/01/2015 11:56 AM EST Narrative [facility] - 09/01/2015 11:56 AM EST Specimen [...] OF CARE TEST O RDERABLES [facility] * (ABNORMAL) CMP w/fasting Glucose (09/01/2015 4:01 [...] of Diabetes Mellitus, Position Statement from the [place] Diabetes [employer]. ??Diabetes Care, Volume 33, Supplement 1, Sep 2009 Blood Urea Nitrogen 15 10 - 20 mg/dL CERNER MILLENNIUM Creatinine 0.86 0.80 - 1.50 mg/dL CERNER MILLENNIUM Comment: Please note that the pediatric reference intervals supplied above were not validated at [facility]. Results from pediatric patients [...] the following links into your internet browser. [email or web address] Blood specimen (specimen) 09/01/2015 4:01 AM EST 09/01/2015 4:06 AM EST Narrative Resulting Agency Comment Spec In Lab Delroy Chu MD CHEMISTRY ORDERABLES Performing Organization Address [facility] de Phone Number CERNER MILLENNIUM * (ABNORMAL) Phosphorus (09/01/2015 4:01 AM EST) Phosphorus 2.0(L) 2.5 - 4.5 mg/dL CERNER MILLENNIUM Blood specimen (specimen) 09/01/2015 4:01 AM EST 09/01/2015 4:06 AM EST Narrative Resulting Agency Comment Spec In Lab Delroy Chu MD CHEMISTRY ORDERABLES Performing Organization Address [facility] de Phone Number CERNER MILLENNIUM * [...] of variation 17.9(H) 10.9 - 14.4 % [facility] Mean Platelet Volume 9.0 9.0 - 12.0 fL [facility] Blood specimen (specimen) 09/01/2015 4:01 AM EST 09/01/2015 4:06 AM EST Narrative Resulting Agency Comment Spec In Lab Delroy Chu MD HEMATOLOGY ORDERABLE S Performing Organization Address [facility] de Phone Number [facility] * (ABNORMAL) Hepatitis A Antibody, Total (08/31/2015 3:38 PM EST) Pathologist [facility] Hepatitis A ANTIBODY, TOTAL Positive(A ) Negative [facility] Blood specimen (specimen) 08/31/2015 3:38 PM EST 08/31/2015 3:45 PM EST Narrative Resulting Agency Comment Spec In Lab Delroy Chu MD CHEMISTRY ORDERABLES Performing Organization Address [facility] de Phone Number [facility] * Hepatitis C RNA, quantitative, PCR (08/31/2015 3:38 PM EST) Pathologist [facility] HCV Viral Load <15 IU/mL [facility] HCV Viral Load Result: <15 IU/mL (Target Not Detected) Indication for Study: Hepatitis C Infection Analysis: A quantitiative real time reverse transcriptase PCR assay was performed on extracted viral RNA for the purpose of quantification. Sample: plasma (1 mL minimum volume) Method: Micheal Brian TaqMAN 48 HCV Linear Range: 15 IU/mL - 100,000,000IU/mL (95% CI) Note: This assay is being performed in the [facility] Molecular Pathology Laboratory. Logan Khan, Ph.D. Director, Molecular Pathology [facility] Comment: [VERIFIED DATE]09.05.15 Verified By:Katy Monzon (Electronic Signature) Blood specimen (specimen) 08/31/2015 3:38 PM EST 09/04/2015 10:42 AM EST Narrative Resulting Agency Comment Spec In Lab Delroy Chu MD MOLECULAR ORDERABLES Performing Organization Address [facility] de Phone Number [facility] * Hepatitis A Antibody, IgM (08/31/2015 3:38 PM EST) Hepatitis A Antibody, IgM Negative Negative [facility] Blood specimen (specimen) 08/31/2015 3:38 PM EST 08/31/2015 3:45 PM EST Narrative Resulting Agency Comment Spec In Lab Delroy Chu MD CHEMISTRY ORDERABLES Performing Organization Address [facility] Phone Number [facility] * Hepatitis B Surface Antibody (08/31/2015 3:38 PM EST) Hepatitis B Surface Antibody Positive [facility] Comment: Expected Results: Vaccinated: Positive Unvaccinated: Negative [...] Chu MD CHEMISTRY ORDERABLES Performing Organization Address [facility] Phone Number [facility] * Hepatitis B Surface Antigen (08/31/2015 3:38 PM EST) Hepatitis B Surface Antigen Negative Negative [facility] Blood specimen (specimen) 08/31/2015 3:38 PM EST 08/31/2015 3:45 PM EST Narrative Resulting Agency Comment Spec In Lab Delroy Chu MD CHEMISTRY ORDERABLES Performing Organization Address [facility] Phone Number [facility] * Hepatitis C Antibody (08/31/2015 3:38 PM EST) Hepatitis C Antibody Negative Negative [facility] Blood specimen (specimen) 08/31/2015 3:38 PM EST 08/31/2015 3:45 PM EST Narrative Resulting Agency Comment Spec In Lab Delroy Chu MD CHEMISTRY ORDERABLES Performing Organization Address [facility] Phone Number [facility] * Lactate, whole blood, send to lab (08/31/2015 3:38 PM EST) Lactate WB 1.4 0.5 - 2.2 mmol/L [facility] Blood specimen (specimen) 08/31/2015 3:38 PM EST 08/31/2015 3:45 PM EST Narrative Resulting Agency Comment Spec In Lab Delroy Chu MD CHEMISTRY ORDERABLES Performing Organization Address [facility] Phone Number [facility] * Blood culture (08/31/2015 9:45 AM EST) Blood Culture No growth at 5 days. [facility] Blood specimen (specimen) STRUCTURE OF RIGHT HAND / Unknown 08/31/2015 9:45 AM EST 08/31/2015 10:16 AM EST Comment:DRAW BLOOD CULTURES BEFORE ADMINISTERING ANTIBIOTICS Narrative Resulting Agency Comment Spec In Lab Delroy Chu MD MICROBIOLOGY - BLOOD ORDERABLES Performing Organization Address [facility] Phone Number [facility] * (ABNORMAL) CMP w/fasting Glucose (08/31/2015 9:35 AM EST) Glucose Fasting 115(H) 65 - 99 mg/dL [facility] Comment: ?Fasting* Glucose Interpretive Criteria Normal ?65-99 [...] of Diabetes Mellitus, Position Statement from the [place] Diabetes [employer]. ??Diabetes Care, Volume 33, Supplement 1, Sep 2009 Blood Urea Nitrogen 18 10 - 20 mg/dL CERNER MILLENNIUM Creatinine 0.92 0.80 - 1.50 mg/dL CERNER MILLENNIUM Comment: Please note that the pediatric reference intervals supplied above were not validated at [facility]. Results from pediatric patients [...] the following links into your internet browser. [email or web address] Blood specimen (specimen) STRUCTURE OF LEFT HAND / Unknown Venous Draw / Unknown 08/31/2015 9:35 AM EST 08/31/2015 10:14 AM EST Comment:Draw blood Cultures before administering antibiotics Narrative Resulting Agency Comment Spec In Lab Delroy Chu MD CHEMISTRY ORDERABLES Performing Organization Address [facility] Co de Phone Number MAXIMO NERI [...] CHEMISTRY ORDERABLES Performing Organization Address [facility] de Phone Number MAXIMO NERI * Gold Tube HOLD (08/31/2015 9:35 AM EST) Gold Hold Sample in lab. MAXIMO NERI Blood specimen (specimen) Venous Draw / Unknown 08/31/2015 9:35 AM EST 08/31/2015 10:13 AM EST Comment:Draw blood Cultures before administering antibiotics Delroy Chu MD CHEMISTRY ORDERABLES Performing Organization Address [facility] de Phone Number MAXIMO [...] MD HEMATOLOGY ORDERABLE S Performing Organization Address [facility] de Phone Number [facility] * Lactate, whole blood, send to lab (08/31/2015 9:34 AM EST) Lactate WB 1.1 0.5 - 2.2 mmol/L [facility] Blood specimen (specimen) 08/31/2015 9:34 AM EST 08/31/2015 9:41 AM EST Narrative Resulting Agency Comment Spec In Lab Delroy Chu MD CHEMISTRY ORDERABLES Performing Organization Address [facility] de Phone Number [facility] * (ABNORMAL) Phosphorus (08/31/2015 9:34 AM EST) Phosphorus 2.3(L) 2.5 - 4.5 mg/dL [facility] Blood specimen (specimen) 08/31/2015 9:34 AM EST 08/31/2015 9:57 AM EST Narrative Resulting Agency Comment Spec In Lab Delroy Chu MD CHEMISTRY ORDERABLES Performing Organization Address [facility] de Phone Number [facility] * (ABNORMAL) BMP w/fasting Glucose (08/31/2015 9:34 AM EST) Glucose Fasting 120(H) 65 - 99 mg/dL [facility] Comment: ?Fasting* Glucose Interpretive Criteria Normal ?65-99 [...] of Diabetes Mellitus, Position Statement from the [place] Diabetes [employer]. ??Diabetes Care, Volume 33, Supplement 1, Sep 2009 Blood Urea Nitrogen 18 10 - 20 mg/dL CERNER MILLENNIUM Creatinine 0.91 0.80 - 1.50 mg/dL CERNER MILLENNIUM Comment: Please note that the pediatric reference intervals supplied above were not validated at [facility]. Results from pediatric patients [...] the following links into your internet browser. [email or web address] Blood specimen (specimen) 08/31/2015 9:34 AM EST 08/31/2015 9:57 AM EST Narrative Resulting Agency Comment Spec In Lab Delroy Chu MD CHEMISTRY ORDERABLES [facility] * (ABNORMAL) Hemogram (08/31/2015 9:34 AM EST) [...] Lab Delroy Chu MD HEMATOLOGY ORDERABLE S [facility] * Lactate, whole blood, send to lab (08/31/2015 4:37 AM EST) Lactate WB 1.5 0.5 - 2.2 mmol/L [facility] Blood specimen (specimen) 08/31/2015 4:37 AM EST 08/31/2015 4:46 AM EST Narrative Resulting Agency Comment Spec In Lab Delroy Chu MD CHEMISTRY ORDERABLES [facility] * Lactate, whole blood, send to lab (08/30/2015 8:59 PM EST) Lactate WB 1.1 0.5 - 2.2 mmol/L MAXIMO ELYIUM Blood specimen (specimen) 08/30/2015 8:59 PM EST 08/30/2015 9:04 PM EST Narrative Resulting Agency Comment Spec In Lab Delroy Chu MD CHEMISTRY ORDERABLES Performing Organization Address [facility] Phone Number MAXIMO NERI * (ABNORMAL) Prothrombin [...] MD HEMATOLOGY ORDERABLE S Performing Organization Address [facility] Phone Number MAXIMO NERI * Prepare thawed plasma (08/30/2015 4:35 PM EST) Dispensed? Yes MAXIMO NERI Blood specimen (specimen) 08/30/2015 4:35 PM EST 08/30/2015 4:34 PM EST Narrative Resulting Agency Comment Spec In Lab Delroy Chu MD BLOOD BANK PRODUCT O RDERABLES Performing Organization Address [facility] de Phone Number MAXIMO [...] MD HEMATOLOGY ORDERABLE S Performing Organization Address [facility] Co de Phone Number MAXIMO NERI * Prepare thawed plasma (08/30/2015 3:00 PM EST) Dispensed? No MAXIMO NERI Blood specimen (specimen) 08/30/2015 3:00 PM EST 08/30/2015 2:57 PM EST Narrative Resulting Agency Comment Spec In Lab Delroy Chu MD BLOOD BANK PRODUCT O RDERABLES Performing Organization Address [facility] Co de Phone Number MAXIMO NERI * Lactate, whole blood, send to lab (08/30/2015 3:00 PM EST) Lactate WB 1.4 0.5 - 2.2 mmol/L MAXIMO NERI Blood specimen (specimen) 08/30/2015 3:00 PM EST 08/30/2015 3:07 PM EST Narrative Resulting Agency Comment Spec In Lab Delroy Chu MD CHEMISTRY ORDERABLES Performing Organization Address [facility] de Phone Number MAXIMO [...] ?WILLA WILLIS ?(Age): 1945(69y) Med Rec#: ? [id number] ?Sex: ?M ? Site Loc: ? [facility] ?Ht / Wt: ??178(cm)/186(kg) Pt. Loc: ?Adult Floor ? BSA: ?2.83 Study Date: ?? 08/30/2015 ?Pt. Type: Inpatient Tape: ? Referring: JOHN EGAN T Referring: Delroy Chu Reading: Jaime Nguyen ([id number]) Mine Wirer: Tamia Haines Diagnosis: *ICD-10-PCS Encounter for other preprocedural examination (Z01.818) *ICD-10-PCS Unspecified atrial fibrillation (I48.91) CPT Codes: *Echo Full (28899) *Spectral Doppler (43433) *Color Doppler (23459) Rhythm: ? A-Fib BP: ? 117/66 SUMMARY: [...] ? Mid-Inferior ?Normal ? Mid-Inferoseptal ?Normal ? [place]-Septal ? Normal ? [place]-Anterior ? Normal ? [place]-Lateral ?Normal ? [place]-Inferior ? Normal ? [place]-Tip ?Normal ? This report has been electronically signed by: Jaime Nguyen MD ? 08/30/2015 11:54:10 Images reviewed and interpretation verified [facility] Procedure Note Jaime Nguyen MD - 08/30/2015 Procedure: Transthoracic Echocardiogram Patient: WILLA WILLIS (Age): 1945(69y) Med Rec#: [id number] Sex: M [place] [facility] [place] / Wt: 178(cm)/186(kg) Pt. Loc: Adult Floor BSA: 2.83 Study Date: 08/30/2015 Pt. Type: Inpatient Tape: Referring: JOHN EGAN T Referring: Delroy Chu Reading: Jaime Nguyen ([id number]) Mine Wirer: Tamia Haines Diagnosis: *ICD-10-PCS Encounter for other preprocedural examination (Z01.818) *ICD-10-PCS Unspecified atrial fibrillation (I48.91) CPT Codes: *Echo Full (53430) *Spectral Doppler (64466) *Color Doppler (89512) Rhythm: A-Fib BP: 117/66 SUMMARY: 1. The [...] Normal Mid-Posterolateral Normal Mid-Inferior Normal Mid-Inferoseptal Normal [place]-Septal Normal [place]-Anterior Normal [place]-Lateral Normal [place]-Inferior Normal [place]-Tip Normal This report has been electronically signed by: Jaime Nguyen MD 08/30/2015 11:54:10 Images reviewed and interpretation verified [facility] Delroy Chu MD ECHO ORDERABLES * Antibody screen (08/30/2015 9:11 AM EST) Ab Screen Interp Negative [facility] Expires at [id number] on: 09/02/2015 [facility] Blood specimen (specimen) 08/30/2015 9:11 AM EST 08/30/2015 10:23 AM EST Narrative Resulting Agency Comment Spec In Lab Delroy Chu MD BLOOD BANK LAB ORDER JESSIE Performing Organization Address City/[facility] Co de Phone Number [facility] * ABO/Rh Typing (08/30/2015 9:11 AM EST) [facility] ABORH Type O Pos [facility] Blood specimen (specimen) 08/30/2015 9:11 AM EST 08/30/2015 10:23 AM EST Narrative Resulting Agency Comment Spec In Lab Delroy Chu MD BLOOD BANK LAB ORDER JESSIE Performing Organization Address City/[facility] Co de Phone Number [facility] * Lactate, whole blood, send to lab (08/30/2015 9:11 AM EST) [facility] Lactate WB 1.4 0.5 - 2.2 mmol/L [facility] Comment:Results rechecked-mk f Blood specimen (specimen) 08/30/2015 9:11 AM EST 08/30/2015 9:15 AM EST Narrative Resulting Agency Comment Spec In Lab Delroy Chu MD CHEMISTRY ORDERABLES Performing Organization Address City/[facility]/ZIP Co de Phone Number [facility] * Prepare thawed plasma (08/30/2015 7:30 AM EST) Pathologist [facility] Dispensed? Yes CERNER MILLENNIUM Blood specimen (specimen) 08/30/2015 7:30 AM EST 08/30/2015 7:33 AM EST Narrative Resulting Agency Comment Spec In Lab Delroy Chu MD BLOOD BANK PRODUCT O RDERABLES Performing Organization Address [facility] Co de Phone Number CERDENISE BOWENENNIUM * EKG 12 Lead (08/30/2015 1:28 AM EST) Pathologist [facility] Ventricular rate 130 BPM MUSE SYSTEM Atrial Rate 144 BPM MUSE SYSTEM QRS Duration 100 ms MUSE SYSTEM Q-T Interval 322 ms MUSE SYSTEM QTC Calculated (Bezet) 473 ms MUSE SYSTEM Calculated R [place] 84 degrees MUSE SYSTEM Calculated T [place] 48 degrees MUSE SYSTEM INTERPRETATION Atrial fibrillation [...] Chu MD ECG ORDERABLES Performing Organization Address [facility] de Phone Number MUSE SYSTEM * (ABNORMAL) Differential, Manual (08/30/2015 1:25 AM EST) Pathologist [facility] Neutrophil % Manual 78 % CERNER MILLENNIUM [...] MD HEMATOLOGY ORDERABLE S Performing Organization Address City/[facility] Co de Phone Number CERNER MILLENNIUM * Gold Tube HOLD (08/30/2015 1:25 AM EST) Pathologist [facility] Gold Hold Sample in lab. CERNER MILLENNIUM Blood specimen (specimen) Venous Draw / Unknown 08/30/2015 1:25 AM EST 08/30/2015 1:32 AM EST Delroy Chu MD CHEMISTRY ORDERABLES Performing Organization Address City/[facility] Co de Phone Number CERDENISE BOWENENNIUM * (ABNORMAL) Basic Metabolic Panel (non-fasting) (08/30/2015 1:25 AM EST) Pathologist [facility] Glucose 122 65 - 199 mg/dL CERNER MILLENNIUM Comment:Diabetes: >=200 mg/d L plus symptoms Blood Urea Nitrogen 14 10 - 20 mg/dL CERNER MILLENNIUM Creatinine 0.91 0.80 - 1.50 mg/dL CERNER MILLENNIUM Comment: Please note that the pediatric reference intervals supplied above were [place] [facility] [place] Results from pediatric patients [...] the following links into your internet browser. [email or web address] Blood specimen (specimen) Venous Draw / Unknown [...] MD HEMATOLOGY ORDERABLE S Performing Organization Address [facility] de Phone Number MAXIMO BOWENENNIUM * Lipase (08/30/2015 1:25 AM EST) Lipase 33 0 - 60 unit/L CERNER MILLENNIUM Blood specimen (specimen) 08/30/2015 1:25 AM EST 08/30/2015 1:30 AM EST Narrative Resulting Agency Comment Spec In Lab Delroy Chu MD CHEMISTRY ORDERABLES Performing Organization Address [facility] de Phone Number MAXIMO BOWENENNIUM * [...] Chu MD CHEMISTRY ORDERABLES Performing Organization Address City/[facility] de Phone Number MAXIMO NERI * (ABNORMAL) Lactate, whole blood, send to lab (08/30/2015 1:25 AM EST) Lactate WB 3.2(H) 0.5 - 2.2 mmol/L [facility] Blood specimen (specimen) 08/30/2015 1:25 AM EST 08/30/2015 1:30 AM EST Narrative Resulting Agency Comment Spec In Lab Delroy Chu MD CHEMISTRY ORDERABLES Performing Organization Address [facility] Phone Number MAXIMO NERI * APTT (08/30/2015 1:25 AM EST) Partial Thromboplastin Time 33 25 - 35 sec [facility] Comment: Recommended therapeutic PTT range for full dose unfractionated heparin is 80-114 seconds. Blood specimen (specimen) 08/30/2015 1:25 AM EST 08/30/2015 1:30 AM EST Narrative Resulting Agency Comment Spec In Lab Delroy Chu MD HEMATOLOGY ORDERABLE S Performing Organization Address [facility] Phone Number MAXIMO NERI * (ABNORMAL) Prothrombin Time (08/30/2015 1:25 AM EST) Prothrombin Time 26.1(H) 12.0 - 15.0 sec [facility] Comment: Transfusion Committee Guidelines: INR less than 2.0, PTT less than OR equal to 43.5 seconds, or Fibrinogen greater than or equal to 100 mg/dl indicate adequate procoagulant activity for hemostasis in patients without underlying bleeding disorders. International Normalization Ratio 2.3(H) 0.9 - 1.1 [facility] Blood specimen (specimen) 08/30/2015 1:25 AM EST 08/30/2015 1:30 AM EST Narrative Resulting Agency Comment Spec In Lab Delroy Chu MD HEMATOLOGY ORDERABLE S Performing Organization Address [facility] Phone Number CERNER MILLENNIUM * Film Library- Storage only DX Chest (08/29/2015 12:05 AM EST) Narrative User, Raad Transmittal - 08/29/2015 10:42 PM EST See PACS for result report. Marla May MD [facility] FILM LIBRARY ORD ERABLES * Film Library- Storage Only CT Abdomen & Pelvis (08/29/2015 12:00 AM EST) Narrative User, Raad Transmittal - 08/29/2015 10:38 PM EST See PACS for result report. Marla May MD [facility] FILM LIBRARY ORD ERABLES documented in this [...] Admin Adt)1801 (Given - Provider: Kate Lamar, AJCOB) 0158 (Given - Provider: Suma Esparza, JACOB [...] override 1255 (Given - Provider: Steffanie Peralta, VICE PRESIDENT [employer]) furosemide (LASIX) 10 mg/mL injection (COMPLETED) 1 [...] Routine documented in this encounter Care Teams Legal Counsel Relationship Specialty Start Date End Date Cherise Staples MD [address] [place] [address] PCP - General 07/31/10 10/04/19 documented as of this encounter
--- OUTSIDE RECORDS SUMMARY | 2024-08-20 10:54 | XMS_ITS | Encounter Summary ---
Author Organization [facility] [place] [address] Care Team Providers Care Vulcanizer Rubber Plate Name Role Phone Cherise Staples MD Primary Care Provider [phone] Reason for Visit * Auth/Cert - Closed Specialty Diagnoses / Procedures Referred By Carla soto Referred To Contact Diagnoses Cholecystitis Pain Atrial fibrillation, unspecified cholangoangitis Procedures ERCP Referral ID Status Reason Start Date Expiration Date Visits Re quested Visits Authorized [id number] Closed 1 1 Encounter Details Date Type Department Care Team (Late st Contact Info) Description 08/30/2015 4:41 PM EST Anesthesia [place] [address] Faiza Hebert MD [facility] [place] [address] Emmanuel Ulrich MD [facility] [place] [address] Anesthesia Record Procedure Summary Procedure Name Responsible [...] 0041; median cubital vein right (antecubital fossa); lepu-yne-zujlqd catheter system; 22 gauge; inserted at outside [...] 171; metacarpal vein right (top of hand); iwkp-uzb-sqbjiv catheter system; 16 gauge; Franky; Per MD [...] Hebert MD - 08/30/2015 8:19 PM EST [facility] Department of Anesthesiology Post-procedure Note Patient: Jaime Crouch Procedure Summary Date Anesthesia Start Anesthesia Stop Room / Location 08/30/[address] [facility] [address] [facility] MAIN OR; [facility]O [facility] Procedure Diagnosis Surgeon Responsible Provider ERCP (N/A Trunk); ERCP (N/A Trunk) No diagnosis on file. Nick Broussard MD Peters, Julia C, MD (cholangoangitis; cholangoangitis) Last (1hr) Vitals: BP 124/64 mmHg (08/30/151944) Temp 37 ??C (98.6 ??F) (08/30/151944) Pulse 114 (08/30/151944) Resp 22 (08/30/151944) SpO2 96 % (08/30/151944) Patient Location: PACU/[facility] Level of Consciousness: Awake and Alert [...] ??? Atrial fibrillation S/p Vit K at [facility] - INR sub therapeutic - on lovenox bridge until INR 2-3 ??? TOM on CPAP ??? Phimosis ??? Nephrolithiasis Past Medical History Diagnosis Date ??? Kidney stone ??? Hypertension ??? ASCVD (arteriosclerotic cardiovascular disease) 1993 first NC 1992, stent to LAD in 2006 ??? [...] performed by Nick Broussard MD at [facility] History Substance Use Topics ??? Smoking [...] mg documented in this encounter Care Teams Vulcanizer Rubber Plate Relationship Specialty Start Date End Date Cherise Staples MD [address] [place] [address] PCP - General 07/31/10 10/04/19 documented as of this encounter
--- OUTSIDE RECORDS SUMMARY | 2024-08-20 10:55 | XMS_ITS | Encounter Summary ---
Author Organization [facility] [place] [address] Care Team Providers Care Welding Machine Operator Thermit Name Role Phone Cherise Staples MD Primary Care Provider [phone] Encounter Details Date Type Department Care Team (Late st Contact Info) Description 03/01/2015 Ancillary Procedure Radiology Library at [facility] [place] [id number] Nick Nettles MD [address] [place], [place] [address] Social History Tobacco Use Types Packs/Day Years [...] DX Knee (03/01/2015 12:00 AM EDT) Narrative [facility] - 09/16/2022 8:04 PM EST This exam is auto-finalizing. It's purpose is for storage only. Nick Nettles MD IM FILM LIBRARY ORD ERABLES [place], [place] documented in this encounter Visit Diagnoses Not on filedocumented in this encounter Care Teams Welding Machine Operator Thermit Relationship Specialty Start Date End Date Cherise Staples MD [address] [place] [address] PCP - General 07/31/10 10/04/19 documented as of this encounter
--- OUTSIDE RECORDS SUMMARY | 2024-08-20 10:55 | XMS_ITS | Encounter Summary ---
Author Organization [facility] [place] [address] Care Team Providers Care Clinical Specialist Vascular Name Role Phone Cherise Staples MD Primary Care Provider [phone] Reason for Visit * Reason Onset Date Comments Advice Only 09/21/2014 Encounter Details Date Type Department Care Team (Late st Contact Info) Description 09/21/2014 [place] [address] Edward Gates MD [facility] [place] [address] Advice Only Social History Tobacco Use Types [...] potassium citrate. He was recently hospitalized at [facility] and had been receiving this medication as [...] filedocumented in this encounter Care Teams Clinical Specialist Vascular Relationship Specialty Start Date End Date Cherise Staples MD [address] [place] [address] PCP - General 07/31/10 10/04/19 documented as of this encounter
--- OUTSIDE RECORDS SUMMARY | 2024-08-20 10:55 | XMS_ITS | Encounter Summary ---
Author Organization [facility] Address [facility] [place] [address] Care Team Providers Care Contracting Specialist Name Role Phone Cherise Staples MD Primary Care Provider [phone] Encounter Details Date Type Department Care Team (Latest Contact Info) Description 08/29/2015 - 08/29/2015 12:04 AM [facility] Hospital Encounter Radiology Library at [facility] [place] [address] Discharge Disposition: Home Social History Tobacco Use [...] on filedocumented in this encounter Care Teams Contracting Specialist Relationship Specialty Start Date End Date Cherise Staples MD [address] [place] [address] PCP - General 07/31/10 10/04/19 documented as of this encounter
--- OUTSIDE RECORDS SUMMARY | 2024-08-20 10:55 | XMS_ITS | Encounter Summary ---
Author Organization [facility] Address [facility] [place] [address] Care Team Providers Care Licensed Sales Assistant Name Role Phone Cherise Staples MD Primary Care Provider [phone] Encounter Details Date Type Department Care Team (Latest Contact Info) Description 08/29/2015 12:05 AM EST - 08/29/2015 11:59 PM [facility] Hospital Encounter Radiology Library at [facility] [address] Discharge Disposition: Home Social History Tobacco Use [...] on filedocumented in this encounter Care Teams Licensed Sales Assistant Relationship Specialty Start Date End Date Cherise Staples MD [address] [place] [address] PCP - General 07/31/10 10/04/19 documented as of this encounter
--- OUTSIDE RECORDS SUMMARY | 2024-08-20 10:55 | XMS_ITS | Encounter Summary ---
Author Organization [facility] [place] [address] Care Team Providers Care Manufacturing Job Titles Name Role Phone Cherise Staples MD Primary Care Provider [phone] Reason for Visit * Reason Comments Abdominal Pain * Auth/Cert - Closed Specialty Diagnoses / Procedures Referred By Carla soto Referred To Contact Diagnoses Cholecystitis Pain Atrial fibrillation, unspecified cholangoangitis Procedures ERCP Referral ID Status Reason Start Date Expiration Date Visits Re quested Visits Authorized [id number] Closed 1 1 Encounter Details Date Type Department Care Team (Late st Contact Info) Description 08/30/2015 - 09/02/2015 [place] [address] Nick Broussard MD [facility] [place] [address] ERCP (VU 5.85) Social History Tobacco Use [...] Jaime Crouch Patient Age: 69 y.o. Language: Niuean Race: White Ethnicity: Not nor Admit date: 08/30/2015 Discharge date and time: 09/02/2015 Attending Physician: Delroy Chu MD Discharge Physician: Delroy Chu MD Inpatient Provider Contact Information: For questions regarding this document or issues relating to this hospitalization on the Medical Service, please contact your inpatient physician through the [facility] Automatic Data Processing Planner . Issues afterhours and on weekends will [...] prompted him to see care at the [facility] ED. There he was noted to have a WBC of 18, elevated LFTs, amylase and lipase. A CT scan was obtained which noted multiple gallstones. Pt was transferred to [facility] for further evaluation and care. Of note [...] 101.3 F. The number for questions is [phone] before 5 PM weekdays and [phone] after 5 PM and weekends. Pain Medication: [...] will be mailed to you. Please call [phone] (clinic number for appointments) to confirm date and time of your appointment if you do not receive your apointment in 3 weeks. General Instructions None Provider Contact Information: CHERISE STAPLES MD BOX [facility] / [place] [address] Discharge References/Attachments None documented in this encounter [...] 101.3 F. The number for questions is [phone] before 5 PM weekdays and [phone] after 5 PM and weekends. Pain Medication: [...] will be mailed to you. Please call [phone] (clinic number for appointments) to confirm date [...] 1240: ICU bed requested through [facility] Welder Helper 1252: Hold LR at [address] [...] placed on Boarder Status awaiting Transport. 1402: Welder Helper called to supply additional resources to transport [...] of two midnights or is on the [facility] inpatient only procedure list (status C) due [...] of two midnights or is on the [facility] inpatient only procedure list (status C) due to: acute injury, physiologic or anatomic insult requiring close monitoring; IV fluid resuscitaiton and/or IV medication; lab/imaging evaluation and has potential for urgent operative intervention. JAY CAHMBERS MD 08/31/2015 * Annemarie Diop, RN - [...] & Hepatology Progress Note Jaime Crouch 1945 [id number] PCP: CHERISE STAPLES MD Date of Admission: [...] ERCP performed by Nick Broussard MD at [facility] Medications Scheduled Meds: ??? ampicillin-sulbactam 3 [...] the OR tomorrow. Howard Moya MD, MS director of sales support Section of Gastroenterology and Hepatology * Makenzie [...] 7:07 PM EST 1899- Received report from [facility]. Pt awake alert VSS, moving all [...] EST Office of Care Management (OCM) / Head Soft Sugar Operator(CM)/ Initial Assessment Discussed patient with Provider Team and with staff counsel. Reviewed record. REASON for HOSPITALIZATION: patient admitted on 08/29/15 in transfer from [facility] ED. Patient presented to ED with [...] Lili Peters DO S/p Vit K at [facility] - INR sub therapeutic - on lovenox bridge until INR 2-3 Previous Version TOM on CPAP G47.33 09/09/2014 Morbid obesity E66.01 09/20/2014 Hypertension (HTN) I10 09/20/2014 CAD I25.10 09/20/2014 Nonsustained ventricular tachycardia I47.2 09/20/2014 PREVIOUS FUNCTIONAL STATUS: independent CURRENT FUNCTIONAL STATUS: ambulating with assistance SOCIAL / FAMILY SUPPORTS: Leah, family/friends ADVANCE DIRECTIVES: On file here at [facility] HEALTH /PRESCRIPTION COVERAGE: Medicare (parts A and B) and [place] [employer] CURRENT HOME/COMMUNITY SERVICES/EQUIPMENT: DME: Patient uses CPAP at home MATHEMATICAL SCIENTIST REFERRAL: not needed at this time PRIMARY CARE PHYSICIAN: CHERISE STAPLES MD [address] / [place] [address] DISCHARGE NEEDS: Discharge needs not known at [...] on CT scan. He was admitted to [facility] in September of this year for cholangitis [...] ??? ASCVD (arteriosclerotic cardiovascular disease) 1993 first NE 1992, stent to LAD in 2006 ??? [...] ERCP performed by Nick Broussard MD at [facility] ??? Pro ercp,diagnostic N/A 08/30/2015 ERCP performed by Nick Broussard MD at [facility] OR Allergies: No Known Allergies Home [...] %] ABG: No results for input(s): PHART, EVQ1VRZ, PO2ART, RUZ4FBS in the last 168 hours. Physical Exam: [...] -- 33 No results for input(s): PHART, TEA8SMC, PO2ART, UID5MFS, BEART in the last 168 hours. ECG [...] tylenol and dilaudid IV, will add dilaudid construction project manager if needed or if diet is [...] as outlined in the note by Dr. Kelin. Plan for ERCP for cholangitis. Plan on [...] prompted him to see care at the [facility] ED. There he was noted to have a WBC of 18, elevated LFTs, amylase and lipase. A CT scan was obtained which noted multiple gallstones. Pt was transferred to [facility] for further evaluation and care. Of note pt was admitted in September of 2014 for cholangitis, at that timehe was treated with a 7 day course of zosyn, and underwent an ERCP with sphincterotomy. Past Medical History: Past Medical History Diagnosis Date ??? Kidney stone ??? Hypertension ??? ASCVD (arteriosclerotic cardiovascular disease) 1993 first NE 1992, stent to LAD in 2006 ??? [...] pain resolved on the trip down from [facility], no pain on exam at present [...] a 69 y.o. male who presents to [facility] with increasing abdominal pain History of Present [...] Chambers MD - 09/01/2015 12:30 PM EST [facility] Operative Note Patient Name: Jaime Crouch : [id number] MR#: [id number] Case Date: 09/01/2015 Surgeon: Surgeon(s) and Role: [...] Operative Note Patient Name: Jaime Crouch : [id number] MR#: [id number] Case Date: 09/01/2015 Surgeon: Surgeon(s) and Role: [...] replaced after wound cleansed with dermal wound card cleaner. Pulses +1 doppler, +2 pitting edema [...] up 30 degrees -- -- 08/31/15 1300 Akankhsa Fall Risk History of Falling -- Secondary [...] Nutrition Interventions: refer to dietitian Current bed: [facility] Assessment: Venous stasis ulceration with his [...] 2. Apply Mepilex Transfer over wound (PS# [id number]) 3. Cover with ABD Pad or burn [...] A referral can be made by calling [phone] or by placing a [facility] wound referral. Discussed plan with: /JODY/PA: Dr. Heredia RN: Zahra Please contact PAUL JOHNSON RN on pager [phone] or the wound care team at [phone] or pager [phone] with skin and wound care concerns or [...] left leg is leaking brown/yellow fluid, wound financial consultant at bedside, newbandage applied A/ox4, waiting [...] CONSULTATION Initial Consult Note Jaime Crouch 1945 [id number] Requesting Provider: Team Surgery REASON FOR CONSULTATION [...] occurred less frequently. When he presented to [facility] he wasfound to have WBC 18, [...] ??? ASCVD (arteriosclerotic cardiovascular disease) 1993 first NE 1993, stent to LAD in 2006 ??? [...] this admission. Continue amp/sul. Sarika Saini MD Industrial Maintenance Mechanicalterations manager Section of Gastroenterology [place] [address] * Consult Note - Evette Young RCP [...] hospital, diltizem IV push was given at [facility] ED. Based on his heart rate jumping [...] AM EST Patient arrives by EMS from [facility] after having had abdominal pain this morning that increased as theday went on. Patient was diagnosed with cholecystitis at [facility] and comes here tonight to consult with surgery. A/Ox4, respirations even and unlabored. documented in this encounter Plan of Treatment Pending Results Name Type Priority Associated Diagnoses Date /Time Transfuse thawed plasma Blood Bank Routine 08/30/2015 2:49 PM EST FILM LIBRARY-FLUORO OR [id number] ONL Imaging Routine 08/30/2015 5:4 7 PM EST Scheduled Orders Name Type Priority Associated Diagnoses Orde r Schedule FILM LIBRARY-FLUORO OR [id number] ONL Imaging Routine Once PRN (f or Radiant use) for 1 Occurrences starting 08/30/2015 until 08/30/2015 FILM LIBRARY-FLUORO OR [id number] ONL Imaging Routine Once PRN (f or Radiant use) for 1 Occurrences starting 09/01/2015 until 09/01/2015 documented as of this encounter Procedures Procedure Name Priority Date/Time Associated Diagnosis Comments LAB SCAN 09/03/2015 12:00 AM EST VIRTUAL CLASSROOM MANAGER SCAN 09/03/2015 12:00 AM EST ECG SCAN [...] SCAN EXT O RDR/RSLT * SCAN DOC: VIRTUAL CLASSROOM MANAGER (09/03/2015 12:00 AM EST) Anatomical Region Laterality Modality Other Scanning Provider MEDIA MGR SCAN EXT O RDR/RSLT * SCAN DOC: ECG (09/03/2015 12:00 AM EST) Scanning Provider MEDIA MGR SCAN EXT O RDR/RSLT * (ABNORMAL) CMP w/fasting Glucose (09/02/2015 2:10 AM EST) [facility] Glucose Fasting 151(H) 65 - 99 mg/dL [facility] Comment: ?Fasting* Glucose Interpretive Criteria Normal ?65-99 [...] of Diabetes Mellitus, Position Statement from the [place] Diabetes Association. ??Diabetes Care, Volume 33, Supplement 1, Sep 2009 Blood Urea Nitrogen 16 10 - 20 mg/dL [facility]ERNER MILLENNIUM Creatinine 0.90 0.80 - 1.50 mg/dL [facility]ERN[facility] MILLENNIUM Comment: Please note that the pediatric reference intervals supplied above were not validated at [facility]. Results from pediatric patients should be interpreted [...] the following links into your internet browser. [email or web address] Blood specimen (specimen) 09/02/2015 2:10 AM EST 09/02/2015 2:23 AM EST Narrative Resulting Agency Comment Spec In Lab Delroy Chu MD CHEMISTRY ORDERABLES Performing Organization Address [facility] de Phone Number CERDENISE BOWENENNIUM * (ABNORMAL) Phosphorus (09/02/2015 2:10 AM EST) Phosphorus 2.4(L) 2.5 - 4.5 mg/dL CERDENISE MILLENNIUM Blood specimen (specimen) 09/02/2015 2:10 AM EST 09/02/2015 2:23 AM EST Narrative Resulting Agency Comment Spec In Lab Delroy Chu MD CHEMISTRY ORDERABLES Performing Organization Address [facility] de Phone Number CERDENISE BOWENENNIUM * [...] POINT OF CARE TEST O RDERABLES [facility] * Surgical Pathology Report (09/01/2015 11:56 AM EST) Final Diagnosis [id number] ? Location: 2WST; 0206; A The signing [...] walled choleliths ranging from 0.8-1.8 cm ??Mucosa: Emjia-red, velvety. ??Wall: Ranging from 0.1-0.4 cm. ??Duct: Patent. ??Lymph Node: Not identified. ??Ink Designation: Black on the adventitia. Sections/Processi ng: (1) cystic duct margin, neck, body; (2) fundus. (R2) ??kef/shb 09/05/2015 11:18 AM EST [facility] GALLBLADDER STRUCTURE / Unknown 09/01/2015 11:56 AM EST 09/01/2015 11:56 AM EST Jay Chambers MD PATHOLOGY/CYTOLOGY ORDERABLES [facility] [place] [address] * Specimen to Pathology (surgical or derm) (09/01/2015 11:56 AM EST) AP Specimen 09/01/2015 11:5 6 AM EST 09/01/2015 11:56 AM EST Narrative CERNER MILLENNIUM - 09/01/2015 11:56 AM EST Specimen requisition ordered. ??Separate Pathology report to follow Delroy Chu MD PATHOLOGY/CYTOLOGY O RDERABLES [facility] * (ABNORMAL) BLOOD GAS 2 ARTERIAL [...] MD POINT OF CARE TEST O RDERABLES [facility] * (ABNORMAL) CMP w/fasting Glucose (09/01/2015 4:01 [...] of Diabetes Mellitus, Position Statement from the [place] Diabetes Association. ??Diabetes Care, Volume 33, Supplement 1, Sep 2009 Blood Urea Nitrogen 15 10 - 20 mg/dL CERNER MILLENNIUM Creatinine 0.86 0.80 - 1.50 mg/dL CERNER MILLENNIUM Comment: Please note that the pediatric reference intervals supplied above were not validated at [facility]. Results from pediatric patients should be interpreted [...] the following links into your internet browser. [email or web address] Blood specimen (specimen) 09/01/2015 4:01 AM EST 09/01/2015 4:06 AM EST Narrative Resulting Agency Comment Spec In Lab Delroy Chu MD CHEMISTRY ORDERABLES Performing Organization Address [facility] de Phone Number CERNER ANDRÉSENNIUM * (ABNORMAL) Phosphorus (09/01/2015 4:01 AM EST) Phosphorus 2.0(L) 2.5 - 4.5 mg/dL [facility] MILLENNIUM Blood specimen (specimen) 09/01/2015 4:01 AM EST 09/01/2015 4:06 AM EST Narrative Resulting Agency Comment Spec In Lab Delroy Chu MD CHEMISTRY ORDERABLES Performing Organization Address [facility] de Phone Number CERNER MILLENNIUM * [...] Platelet Volume 9.0 9.0 - 12.0 fL [facility] Blood specimen (specimen) 09/01/2015 4:01 AM EST 09/01/2015 4:06 AM EST Narrative Resulting Agency Comment Spec In Lab Delroy Chu MD HEMATOLOGY ORDERABLE S Performing Organization Address [facility] Co de Phone Number [facility] * (ABNORMAL) Hepatitis A Antibody, Total (08/31/2015 3:38 PM EST) Pathologist [facility] Hepatitis A ANTIBODY, TOTAL Positive(A ) Negative [facility] Blood specimen (specimen) 08/31/2015 3:38 PM EST 08/31/2015 3:45 PM EST Narrative Resulting Agency Comment Spec In Lab Delroy Chu MD CHEMISTRY ORDERABLES Performing Organization Address [facility] de Phone Number [facility] * Hepatitis C RNA, quantitative, PCR (08/31/2015 3:38 PM EST) [facility] HCV Viral Load <15 IU/mL [facility] HCV Viral Load Result: <15 IU/mL (Target Not Detected) Indication for Study: Hepatitis C Infection Analysis: A quantitiative real time reverse transcriptase PCR assay was performed on extracted viral RNA for the purpose of quantification. Sample: plasma (1 mL minimum volume) Method: Micheal Brian TaqMAN 48 HCV Linear Range: 15 IU/mL - 100,000,000IU/mL (95% CI) Note: This assay is being performed in the [facility] Molecular Pathology Laboratory. Logan Khan, Ph.D. Director, Molecular Pathology [facility] Comment: [VERIFIED DATE]09.05.15 Verified By:Katy Monzon (Electronic Signature) Blood specimen (specimen) 08/31/2015 3:38 PM EST 09/04/2015 10:42 AM EST Narrative Resulting Agency Comment Spec In Lab Delroy Chu MD MOLECULAR ORDERABLES Performing Organization Address [facility] Co de Phone Number [facility] * Hepatitis A Antibody, IgM (08/31/2015 3:38 PM EST) Hepatitis A Antibody, IgM Negative Negative [facility] Blood specimen (specimen) 08/31/2015 3:38 PM EST 08/31/2015 3:45 PM EST Narrative Resulting Agency Comment Spec In Lab Delroy Chu MD CHEMISTRY ORDERABLES Performing Organization Address [facility] de Phone Number [facility] * Hepatitis B Surface Antibody (08/31/2015 3:38 PM EST) Hepatitis B Surface Antibody Positive [facility] Comment: Expected Results: Vaccinated: Positive Unvaccinated: Negative [...] MD CHEMISTRY ORDERABLES Performing Organization Address [facility] de Phone Number [facility] * Hepatitis B Surface Antigen (08/31/2015 3:38 PM EST) Hepatitis B Surface Antigen Negative Negative [facility] Blood specimen (specimen) 08/31/2015 3:38 PM EST 08/31/2015 3:45 PM EST Narrative Resulting Agency Comment Spec In Lab Delroy Chu MD CHEMISTRY ORDERABLES Performing Organization Address [facility] Co de Phone Number [facility] * Hepatitis C Antibody (08/31/2015 3:38 PM EST) Hepatitis C Antibody Negative Negative [facility] Blood specimen (specimen) 08/31/2015 3:38 PM EST 08/31/2015 3:45 PM EST Narrative Resulting Agency Comment Spec In Lab Delroy Chu MD CHEMISTRY ORDERABLES Performing Organization Address [facility] de Phone Number [facility] * Lactate, whole blood, send to lab (08/31/2015 3:38 PM EST) Lactate WB 1.4 0.5 - 2.2 mmol/L [facility] Blood specimen (specimen) 08/31/2015 3:38 PM EST 08/31/2015 3:45 PM EST Narrative Resulting Agency Comment Spec In Lab Delroy Chu MD CHEMISTRY ORDERABLES Performing Organization Address [facility] de Phone Number [facility] * Blood culture (08/31/2015 9:45 AM EST) Pathologist [facility] Blood Culture No growth at 5 days. [facility] Blood specimen (specimen) STRUCTURE OF RIGHT HAND / Unknown 08/31/2015 9:45 AM EST 08/31/2015 10:16 AM EST Comment:DRAW BLOOD CULTURES BEFORE ADMINISTERING ANTIBIOTICS Narrative Resulting Agency Comment Spec In Lab Delroy Chu MD MICROBIOLOGY - BLOOD ORDERABLES Performing Organization Address [facility] de Phone Number [facility] * (ABNORMAL) CMP w/fasting Glucose (08/31/2015 9:35 AM EST) Glucose Fasting 115(H) 65 - 99 mg/dL [facility] Comment: ?Fasting* Glucose Interpretive Criteria Normal ?65-99 [...] of Diabetes Mellitus, Position Statement from the [place] Diabetes [employer]. ??Diabetes Care, Volume 33, Supplement 1, Sep 2009 Blood Urea Nitrogen 18 10 - 20 mg/dL [facility]ERN[facility] MILLENNIUM Creatinine 0.92 0.80 - 1.50 mg/dL [facility] MILLENNIUM Comment: Please note that the pediatric reference intervals supplied above were not validated at [facility]. Results from pediatric patients should be interpreted [...] the following links into your internet browser. [email or web address] Blood specimen (specimen) STRUCTURE OF LEFT HAND / Unknown Venous Draw / Unknown 08/31/2015 9:35 AM EST 08/31/2015 10:14 AM EST Comment:Draw blood Cultures before administering antibiotics Narrative Resulting Agency Comment Spec In Lab Delroy Chu MD CHEMISTRY ORDERABLES Performing Organization Address [facility] de Phone Number [facility]IMO NERI * Amylase (08/31/2015 9:35 AM EST) Amylase 32 28 - 100 unit/L [facility] Blood specimen (specimen) STRUCTURE OF LEFT HAND / Unknown Venous Draw / Unknown 08/31/2015 9:35 AM EST 08/31/2015 10:14 AM EST Comment:Draw blood Cultures before administering antibiotics Narrative Resulting Agency Comment Spec In Lab Delroy Chu MD CHEMISTRY ORDERABLES Performing Organization Address [facility] de Phone Number [facility]IMO ELYIUM * Gold Tube HOLD (08/31/2015 9:35 AM EST) Gold Hold Sample in lab. [facility]IMO NERI Blood specimen (specimen) Venous Draw / Unknown 08/31/2015 9:35 AM EST 08/31/2015 10:13 AM EST Comment:Draw blood Cultures before administering antibiotics Delroy Chu MD CHEMISTRY ORDERABLES Performing Organization Address [facility] de Phone Number [facility]IMO ELYIUM * Blue Tube HOLD (08/31/2015 9:35 AM EST) Blue Hold Sample in lab. [facility]IMO NERI Blood specimen (specimen) Venous Draw / Unknown 08/31/2015 9:35 AM EST 08/31/2015 10:13 AM EST Comment:Draw blood Cultures before administering antibiotics Delroy Chu MD HEMATOLOGY ORDERABLE S Performing Organization Address [facility] de Phone Number MAXIMO ELYIUM * [...] HEMATOLOGY ORDERABLE S Performing Organization Address [facility] de Phone Number [facility] * Lactate, whole blood, send to lab (08/31/2015 9:34 AM EST) Lactate WB 1.1 0.5 - 2.2 mmol/L [facility] Blood specimen (specimen) 08/31/2015 9:34 AM EST 08/31/2015 9:41 AM EST Narrative Resulting Agency Comment Spec In Lab Delroy Chu MD CHEMISTRY ORDERABLES Performing Organization Address [facility] de Phone Number [facility] * (ABNORMAL) Phosphorus (08/31/2015 9:34 AM EST) Phosphorus 2.3(L) 2.5 - 4.5 mg/dL [facility] Blood specimen (specimen) 08/31/2015 9:34 AM EST 08/31/2015 9:57 AM EST Narrative Resulting Agency Comment Spec In Lab Delroy Chu MD CHEMISTRY ORDERABLES Performing Organization Address [facility] de Phone Number [facility] * (ABNORMAL) BMP w/fasting Glucose (08/31/2015 9:34 AM EST) Glucose Fasting 120(H) 65 - 99 mg/dL [facility] Comment: ?Fasting* Glucose Interpretive Criteria Normal ?65-99 [...] of Diabetes Mellitus, Position Statement from the [place] Diabetes [employer]. ??Diabetes Care, Volume 33, Supplement 1, Sep 2009 Blood Urea Nitrogen 18 10 - 20 mg/dL [facility]ERNER MILLENNIUM Creatinine 0.91 0.80 - 1.50 mg/dL [facility] MILLENNIUM Comment: Please note that the pediatric reference intervals supplied above were not validated at [facility]. Results from pediatric patients should be interpreted [...] the following links into your internet browser. [email or web address] Blood specimen (specimen) 08/31/2015 9:34 AM EST [...] MD CHEMISTRY ORDERABLES Performing Organization Address [facility] Phone Number MAXIMO NERI * [...] MD HEMATOLOGY ORDERABLE S Performing Organization Address [facility] Phone Number MAXIMO NERI * Prepare thawed plasma (08/30/2015 4:35 PM EST) Dispensed? Yes JAVIERDENISE NERI Blood specimen (specimen) 08/30/2015 4:35 PM EST 08/30/2015 4:34 PM EST Narrative Resulting Agency Comment Spec In Lab Delroy Chu MD BLOOD BANK PRODUCT O RDERABLES Performing Organization Address [facility] de Phone Number MAXIMO NERI * [...] HEMATOLOGY ORDERABLE S Performing Organization Address [facility] Co de Phone Number MAXIMO NERI * Prepare thawed plasma (08/30/2015 3:00 PM EST) Dispensed? No [facility]IMO NERI Blood specimen (specimen) 08/30/2015 3:00 PM EST 08/30/2015 2:57 PM EST Narrative Resulting Agency Comment Spec In Lab Delroy Chu MD BLOOD BANK PRODUCT O RDERABLES Performing Organization Address [facility] Co de Phone Number MAXIMO NERI * Lactate, whole blood, send to lab (08/30/2015 3:00 PM EST) Lactate WB 1.4 0.5 - 2.2 mmol/L [facility] N[facility] Blood specimen (specimen) 08/30/2015 3:00 PM EST 08/30/2015 3:07 PM EST Narrative Resulting Agency Comment Spec In Lab Delroy Chu MD CHEMISTRY ORDERABLES Performing Organization Address [facility] [facility] Co de Phone Number MAXIMO [...] ?RAINA WILLIS ?(Age): 1945(69y) Med Rec#: ? [id number] ?Sex: ?M ? Site Loc: ? [facility] ?Ht / Wt: ??178(cm)/186(kg) Pt. Loc: ?Adult Floor ? BSA: ?2.83 Study Date: ?? 08/30/2015 ?Pt. Type: Inpatient Tape: ? Referring: JOHN EGAN T Referring: Delroy Chu Reading: Jaime Nguyen ([id number]) Punch Out Crew Member: Tamia Haines Diagnosis: *ICD-10-PCS Encounter for other preprocedural examination (Z01.818) *ICD-10-PCS Unspecified atrial fibrillation (I48.91) CPT Codes: *Echo Full (38910) *Spectral Doppler (55616) *Color Doppler (45493) Rhythm: ? A-Fib BP: ? 117/66 SUMMARY: [...] ? Mid-Inferior ?Normal ? Mid-Inferoseptal ?Normal ? [place]-Septal ? Normal ? [place]-Anterior ? Normal ? [place]-Lateral ?Normal ? [place]-Inferior ? Normal ? [place]-Tip ?Normal ? This report has been electronically signed by: Jaime Nguyen MD ? 08/30/2015 11:54:10 Images reviewed and interpretation verified [facility] Cardiac Ultrasound Laboratory Procedure Note Jaime Nguyen MD - 08/30/2015 Procedure: Transthoracic Echocardiogram Patient: RAINA WILLIS (Age): 1945(69y) Med Rec#: [id number] Sex: M Site Loc: [facility] Ht / Wt: 178(cm)/186(kg) Pt. Loc: Adult Floor BSA: 2.83 Study Date: 08/30/2015 Pt. Type: Inpatient Tape: Referring: JOHN EGAN T Referring: Delroy Chu Reading: Jaime Nguyen ([id number]) Punch Out Crew Member: Tamia Haines Diagnosis: *ICD-10-PCS Encounter for other preprocedural examination (Z01.818) *ICD-10-PCS Unspecified atrial fibrillation (I48.91) CPT Codes: *Echo Full (88935) *Spectral Doppler (32757) *Color Doppler (35452) Rhythm: A-Fib BP: 117/66 SUMMARY: 1. The [...] Normal Mid-Posterolateral Normal Mid-Inferior Normal Mid-Inferoseptal Normal [place]-Septal Normal [place]-Anterior Normal [place]-Lateral Normal [place]-Inferior Normal [place]-Tip Normal This report has been electronically signed by: Jaime Nguyen MD 08/30/2015 11:54:10 Images reviewed and interpretation verified [facility] Cardiac Ultrasound Laboratory Delroy Chu MD ECHO ORDERABLES * Antibody screen (08/30/2015 9:11 AM EST) Ab Screen Interp Negative [facility] Expires at [id number] on: 09/02/2015 [facility] Blood specimen (specimen) 08/30/2015 9:11 AM EST 08/30/2015 10:23 AM EST Narrative Resulting Agency Comment Spec In Lab Delroy Chu MD BLOOD BANK LAB ORDER JESSIE Performing Organization Address [facility] Co de Phone Number [facility] * ABO/Rh Typing (08/30/2015 9:11 AM EST) Pathologist [facility] ABORH Type O Pos [facility] Blood specimen (specimen) 08/30/2015 9:11 AM EST 08/30/2015 10:23 AM EST Narrative Resulting Agency Comment Spec In Lab Delroy Chu MD BLOOD BANK LAB ORDER JESSIE Performing Organization Address [facility] Co de Phone Number [facility] * Lactate, whole blood, send to lab (08/30/2015 9:11 AM EST) [facility] Lactate WB 1.4 0.5 - 2.2 mmol/L [facility] Comment:Results rechecked-mk f Blood specimen (specimen) 08/30/2015 9:11 AM EST 08/30/2015 9:15 AM EST Narrative Resulting Agency Comment Spec In Lab Delroy Chu MD CHEMISTRY ORDERABLES Performing Organization Address [facility] Co de Phone Number [facility] * Prepare thawed plasma (08/30/2015 7:30 AM EST) Dispensed? Yes [facility] Blood specimen (specimen) 08/30/2015 7:30 AM EST 08/30/2015 7:33 AM EST Narrative Resulting Agency Comment Spec In Lab Delroy Chu MD BLOOD BANK PRODUCT O RDERABLES Performing Organization Address [facility] Co de Phone Number [facility] * EKG 12 Lead (08/30/2015 1:28 AM EST) Ventricular rate 130 BPM MUSE SYSTEM Atrial Rate 144 BPM [facility]USE SYSTEM QRS Duration 100 ms MUSE SYSTEM Q-T Interval 322 ms MUSE SYSTEM QTC Calculated (Bezet) 473 ms MUSE SYSTEM Calculated R [place] 84 degrees MUSE SYSTEM Calculated T [place] 48 degrees MUSE SYSTEM INTERPRETATION Atrial fibrillation [...] MD ECG ORDERABLES Performing Organization Address [facility] Co de Phone Number MUSE SYSTEM [...] Gold Tube HOLD (08/30/2015 1:25 AM EST) [facility] Gold Hold Sample in lab. CERNER MILLENNIUM Blood specimen (specimen) Venous Draw / Unknown 08/30/2015 1:25 AM EST 08/30/2015 1:32 AM EST Delroy Chu MD CHEMISTRY ORDERABLES Performing Organization Address [facility]/ZIP Co de Phone Number [facility]OWENENNI[facility] * (ABNORMAL) Basic Metabolic Panel (non-fasting) (08/30/2015 1:25 AM EST) [facility] Glucose 122 65 - 199 mg/dL [facility]ILLENNI[facility] Comment:Diabetes: >=200 mg/d L plus symptoms Blood Urea Nitrogen 14 10 - 20 mg/dL [facility] MILLENNI[facility] Creatinine 0.91 0.80 - 1.50 mg/dL [facility] MILLENNIUM Comment: Please note that the pediatric reference intervals supplied above were not validated at [facility]. Results from pediatric patients should be interpreted [...] the following links into your internet browser. [email or web address] Blood specimen (specimen) Venous Draw / Unknown [...] MD HEMATOLOGY ORDERABLE S Performing Organization Address [facility] Co de Phone Number [facility] BOWEN[facility] * Lipase (08/30/2015 1:25 AM EST) Lipase 33 0 - 60 unit/L [facility] Blood specimen (specimen) 08/30/2015 1:25 AM EST 08/30/2015 1:30 AM EST Narrative Resulting Agency Comment Spec In Lab Delroy Chu MD CHEMISTRY ORDERABLES Performing Organization Address [facility] de Phone Number CERNER MILLENNIUM * [...] Chu MD CHEMISTRY ORDERABLES Performing Organization Address [facility]/ZIP Co de Phone Number CERNER MILLENNIUM * (ABNORMAL) Lactate, whole blood, send to lab (08/30/2015 1:25 AM EST) Lactate WB 3.2(H) 0.5 - 2.2 mmol/L [facility] Blood specimen (specimen) 08/30/2015 1:25 AM EST 08/30/2015 1:30 AM EST Narrative Resulting Agency Comment Spec In Lab Delroy Chu MD CHEMISTRY ORDERABLES Performing Organization Address [facility] de Phone Number [facility] * APTT (08/30/2015 1:25 AM EST) Partial Thromboplastin Time 33 25 - 35 sec [facility] Comment: Recommended therapeutic PTT range for full dose unfractionated heparin is 80-114 seconds. Blood specimen (specimen) 08/30/2015 1:25 AM EST 08/30/2015 1:30 AM EST Narrative Resulting Agency Comment Spec In Lab Delroy Chu MD HEMATOLOGY ORDERABLE S Performing Organization Address [facility] Phone Number MAXIMO NERI * (ABNORMAL) Prothrombin Time (08/30/2015 1:25 AM EST) Prothrombin Time 26.1(H) 12.0 - 15.0 sec [facility]AN[facility]OWEN[facility] Comment: Transfusion Committee Guidelines: INR less than 2.0, PTT less than OR equal to 43.5 seconds, or Fibrinogen greater than or equal to 100 mg/dl indicate adequate procoagulant activity for hemostasis in patients without underlying bleeding disorders. International Normalization Ratio 2.3(H) 0.9 - 1.1 [facility] Blood specimen (specimen) 08/30/2015 1:25 AM EST 08/30/2015 1:30 AM EST Narrative Resulting Agency Comment Spec In Lab Delroy Chu MD HEMATOLOGY ORDERABLE S Performing Organization Address [facility] de Phone Number MAXIMO [facility] * Film Library- Storage only DX Chest [...] Discontinued, Routine 2032 (Given - Provider: Florinda Pearlta RN) 0914 (Given - Provider: Hira Mandujano, [...] Routine documented in this encounter Care Teams Manufacturing Job Titles Relationship Specialty Start Date End Date Cherise Staples MD [address] [place] [address] PCP - General 07/31/10 10/04/19 documented as of this encounter
--- OUTSIDE RECORDS SUMMARY | 2024-08-20 10:55 | XMS_ITS | Encounter Summary ---
Author Organization [facility] [place] [address] Care Team Providers Care Cloth Mender Name Role Phone Cherise Staples MD Primary Care Provider [phone] Reason for Visit * Reason Comments Medication Refill Encounter Details Date Type Department Care Team (Late st Contact Info) Description 05/05/2015 Refill [place] [address] Fabricio Aranda Jr., MD [facility] [place] [address] Social History Tobacco Use Types Packs/Day Years [...] on filedocumented in this encounter Care Teams Cloth Mender Relationship Specialty Start Date End Date Cherise Staples MD [address] [place] [address] PCP - General 07/31/10 10/04/19 documented as of this encounter
--- OUTSIDE RECORDS SUMMARY | 2024-08-20 10:55 | XMS_ITS | Encounter Summary ---
[place] [address] Care Team Providers Care Hospice Fellow Name Role Phone Cherise Staples MD Primary Care Provider [phone] Encounter Details Date Type Department Care Team (Late st Contact Info) Description 11/23/2014 11:00 AM EDT Office Visit [place] [address] Micah Medrano MD [address] [place] [address] [place] [address] Calculus of bile duct with cholangitis without [...] Surgery Residents Clinic Note Jaime Crouch 1945 [id number] Chief complaint: H/o cholecystitis vs Cholangitis HPI: A 69 man w/ ASCVD s/p stent to LAD 2006 and [place] ~1992, h/o PE and Afib on warfarin, and morbid obesity with TOM on CPAP. He had a acute onset of pain on . Went to his local hospital at [facility], diagnosed with possible cholecystitis vs cholangitis. Due to elevated bilirubin, transferred to [facility] for further evaluation, possible ERCP. 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 For the past week has though been not as active due to a medial right knee pain. He is presenting to day to surgical clinic for evaluation and discussion of further treatment. Past Medical History Diagnosis Date ??? Kidney stone ??? Hypertension ??? ASCVD (arteriosclerotic cardiovascular disease) 1992 first [place] 1992, stent to LAD in 2006 ??? [...] ERCP performed by Nick Broussard MD at [facility] History Social History ??? Marital [...] ASCVD s/p stent to LAD 2006 and [place] ~1992, h/o PE and Afib on warfarin, [...] he has not been seen by a pilot boat operator for a quite some time.He presently denies [...] obstruction documented in this encounter Care Teams Hospice Fellow Relationship Specialty Start Date End Date Cherise Staples MD [address] [place] [address] PCP - General 07/31/10 10/04/19 documented as of this encounter
--- OUTSIDE RECORDS SUMMARY | 2024-08-20 10:56 | XMS_ITS | Encounter Summary ---
[place] [address] Care Team Providers Care Drip Pumper Name Role Phone Cherise Staples MD Primary Care Provider [phone] Encounter Details Date Type Department Care Team (Latest Contact Info) Description 03/30/2013 10:29 AM EDT - 03/30/2013 11:59 PM EDT Hospital [place] [address] Nephrolithiasis Social History Tobacco Use Types Packs/Day [...] 03/30/2013 12:15 pm) Patient Info ID: ? [id number] ? : [birth year] (67 yrs) Name: ? LAZARO CROUCH ?Visit Date: 03/30/2013 11:18 am Performed By Performed By: ?Eli Macias RDMS Associate: ? Mehran SPIVEY, Christoph Tapia Attending: ? Jane Aguilar MD Referred By: ? EDYTA ARANDA Service(s) Provided URETRO - Retroperitoneal Complete - [id number] ? [id number] Indications History of kidney stones Comparison Renal [...] Final 03/30/2013 12:15 pm) Patient Info ID: [id number] : [birth year] (67 yrs) Name: LAZARO CROUCH Visit Date: 03/30/2013 11:18 am Performed By Performed By: Eli Macias RDMS Associate: Christoph Laurent MD Attending: Jane Aguilar MD Referred By: EDYTA ARANDA Service(s) Provided URETRO - Retroperitoneal Complete - [id number] Indications History of kidney stones Comparison Renal [...] kidney documented in this encounter Care Teams Drip Pumper Relationship Specialty Start Date End Date Cherise Staples MD [address] [place] [address] PCP - General 07/31/10 10/04/19 documented as of this encounter
--- OUTSIDE RECORDS SUMMARY | 2024-08-20 10:56 | XMS_ITS | Encounter Summary ---
Author Organization [facility] [place] [address] Care Team Providers Care Nanotechnologist Name Role Phone Cherise Staples MD Primary Care Provider [phone] Reason for Visit * Reason Comments Nephrolithiasis Phimosis Encounter Details Date Type Department Care Team (Late st Contact Info) Description 06/17/2012 11:40 AM EDT [place] [id number] CLINIC, Edyta Hussein Jr., MD [facility] [place] [address] Nephrolithiasis (Primary Dx); Phimosis Discharge Disposition: Home [...] with circumcision, but had it done in [facility]. He noted that he has had problems with the scrotum pulled right up to the penis. He has not passed any additional stones. Past medical history: urolithiasis, obesity, CAD ([place] age 52), HTN, h/o gout; atrial fibrillation [...] 03/30/2013 12:15 pm) Patient Info ID: ? [id number] ? : ??[birth year] (67 yrs) Name: ? LAZARO CROUCH ?Visit Date: 03/30/2013 11:18 am Performed By Performed By: ?Eli Macias RDMS Associate: ? Mehran SPIVEY, Christoph Tapia Attending: ? Jane Aguilar MD Referred By: ? EDYTA ARAMBULA Service(s) Provided URETRO - Retroperitoneal Complete - [id number] ? 23293 Indications History of kidney stones Comparison Renal [...] Final 03/30/2013 12:15 pm) Patient Info ID: [id number] : [birth year] (67 yrs) Name: LAZARO CROUCH Visit Date: 03/30/2013 11:18 am Performed By Performed By: Eli Macias RDMS Associate: Christoph Laurent MD Attending: Jane Aguilar MD Referred By: EDYTA ARAMBULA Service(s) Provided URETRO - Retroperitoneal Complete - [id number] Indications History of kidney stones Comparison Renal [...] kidney documented in this encounter Care Teams Nanotechnologist Relationship Specialty Start Date End Date Cherise Staples MD [address] [place] [id number] PCP - General 07/31/10 10/04/19 documented as of this encounter
--- OUTSIDE RECORDS SUMMARY | 2024-08-20 10:56 | XMS_ITS | Encounter Summary ---
Author Organization [facility] [place] [address] Care Team Providers Care Research Project Manager Name Role Phone Cherise Staples MD Primary Care Provider [phone] Encounter Details Date Type Department Care Team (Late st Contact Info) Description 09/09/2014 1:00 PM EST - 09/09/2014 2:00 PM EST [place] [address] Nick Broussard MD [facility] [place] [address] ERCP (WRVU 5.85) Social History Tobacco Use [...] ??? ASCVD (arteriosclerotic cardiovascular disease) 1992 first [place] 1992, stent to LAD in 2006 ??? Atrial fibrillation chronic anticoagulation ??? Nephrolithiasis hx of nephrostomy tube and posterior approach removal ??? HLD (hyperlipidemia) ??? Chronic venous insufficiency ??? TOM on CPAP ??? DVT (deep venous thrombosis) ??? PE (pulmonary embolism) Procedures: ERCP 09/09/14 (see 'Studies' below for details). History of Presentation: 69 man w/ ASCVD s/p stent to LAD 2006 and [place] ~1992, Afib on warfarin, and obesity with TOM on CPAP nightly who presents to [facility] on 09/07 with new, sudden onset RUQ [...] patient was discussed with GI here at [facility] and plan made was to perform ERCP to relieve what mighthave been a picture of ascending cholangitis versus acute cholecystitis. On arrival to [facility], the day of admission, he was hemodynamically [...] Apparantly he had Vit K at the [facility] priro to transsfer here. Upon restarting his [...] 1.1 1.0 1.0 Studies: ERCP-09/09/14 Findings: The title curator film was normal and the procedure was [...] Date Signed: 09/19/2014 Karmen Silvestre DO NPI#: [id number] Questions: Vendor Name/Contact information: [employer]. Comment - [facility] office Referral to Home Health - at DISCHARGE [[id number] CPT(R)] As directed Process Instructions: Scheduling Instructions: [...] nurse practitioner, clinical nurse specialist or physician's habilitation assistant who is working directly with them, [...] PCP: CHERISE STAPLES MD [address] [place] [address] All VNA agencies which cover the area of patient's residence have been reviewed, either verbally hortencia writing, and patient/family have chosen the indicated home health care agency for home services. [facility]. PHONE: [phone] FAX: [phone] RN - to assess CP/GI//nutrition/hydration/elimination. Check vital [...] ADL retraining. Home safety evaluation. Assess for COOKIE PADDER needs. Teach energy conservation techniques. COOKIE PADDER - to assist with personal care. Questions: Agency name and contact information: [facility] Patient location post discharge: [facility] What services are requested: Registered Nurse Physical Therapy Occupational Therapy Home Health Aide Start date: 09/20/2014 Responsible MD post discharge contact info: home PCP Referral to Home Health - at DISCHARGE [[id number] CPT(R)] As directed Process Instructions: Scheduling Instructions: [...] nurse practitioner, clinical nurse specialist or physician's habilitation assistant who is working directly with them, [...] patient's PCP: CHERISE STAPLES MD [address] [place] [address] All A agencies which cover the area of patient's residence have been reviewed, either verbally hortencia writing, and patient/family have chosen the indicated home health care agency for home services. [facility]. PHONE: [phone] FAX: [phone] RN - to assess CP/GI//nutrition/hydration/elimination. Check vital [...] pt's pcp, CHERISE STAPLES MD at number [phone] PT - home exercise program, strengthening exercises. Home safety evaluation. Gait retraining program. OT - assess for DME needs and ADL modifications. ADL retraining. Home safety evaluation. Assess for COOKIE PADDER needs. Teach energy conservation techniques. COOKIE PADDER - to assist with personal care. Questions: [facility] and [facility] information[facility] Patient location post discharge: home What services are requested: Registered Nurse Occupational Therapy Home Health Aide Start date: 09/20/2014 Responsible MD post discharge contact info: CHERISE STAPLES MD, [address], [place] [address], Discharge Instructions: Patient Instructions Instruction after leaving [...] not take or discontinue any prescription or vvdj-hwq-twxmidy medications without asking your doctor or pharmacist [...] Home Date Signed: 09/19/2014 Karmen Silvestre NPI#: [id number] Questions: Vendor Name/Contact information: [employer] Comment - [facility] office Referral to Home Health - at DISCHARGE [[id number] CPT(R)] As directed Process Instructions: Scheduling Instructions: [...] nurse practitioner, clinical nurse specialist or physician's habilitation assistant who is working directly with them, [...] PCP: CHERISE STAPLES MD [address] [place] [address] All VNA agencies which cover the area of patient's residence have been reviewed, either verbally hortencia writing, and patient/family have chosen the indicated home health care agency for home services. [facility]. PHONE: [phone] FAX: [phone] RN - to assess CP/GI//nutrition/hydration/elimination. Check vital [...] ADL retraining. Home safety evaluation. Assess for COOKIE PADDER needs. Teach energy conservation techniques. COOKIE PADDER - to assist with personal care. Questions: Agency name and contact information: [facility] Patient location post discharge: [facility] What services are requested: Registered Nurse Physical Therapy Occupational Therapy Home Health Aide Start date: 09/20/2014 Responsible MD post discharge contact info: home PCP Referral to Home Health - at DISCHARGE [[id number] CPT(R)] As directed Process Instructions: Scheduling Instructions: [...] nurse practitioner, clinical nurse specialist or physician's habilitation assistant who is working directly with them, [...] PCP: CHERISE STAPLES MD [address] [place] [address] All VNA agencies which cover the area of patient's residence have been reviewed, either verbally hortencia writing, and patient/family have chosen the indicated home health care agency for home services. [facility]. PHONE: [phone] FAX: [phone] RN - to assess CP/GI//nutrition/hydration/elimination. Check vital [...] pt's pcp, CHERISE STAPLES MD at number [phone] PT - home exercise program, strengthening exercises. Home safety evaluation. Gait retraining program. OT - assess for DME needs and ADL modifications. ADL retraining. Home safety evaluation. Assess for COOKIE PADDER needs. Teach energy conservation techniques. COOKIE PADDER - to assist with personal care. Questions: Agency name and contact information: [facility] Patient location post discharge: home What services are requested: Registered Nurse Occupational Therapy Home Health Aide Start date: 09/20/2014 Responsible MD post discharge contact info: CHERISE STAPLES MD, [address], [place] [address], For questions regarding this document or issues relating to this hospitalization on the Medical Service, please contact your inpatient physician through the [facility] Building Stonecutter . Issues afterhours and on weekends will be handled by the Hospitalist staff on-call. Greater than 30 min spent coordinating pt care. Phoned PCP Dr Staples - unavailable, d/w nursing, reviewed to hosp, course, tx plans. She confirms they will follow INR and adjust medication Including coumadin & lovenox Signed:KARMEN SILVESTRE DO Cc: Dr Cherise Staples fax [phone] documented in this encounter Discharge Instructions * [...] not take or discontinue any prescription or mhis-yya-meifkhm medications without asking your doctor or pharmacist [...] Everywhere. * ACUTE CHOLECYSTITIS : GENERAL INFO (COLOMBIAN) * ATRIAL FIBRILLATION (COLOMBIAN) * SLEEP APNEA (COLOMBIAN) * WEIGHT: OVERWEIGHT (COLOMBIAN) * ENOXAPARIN (LOVENOX) (COLOMBIAN) * VITAMIN K DIET (COLOMBIAN) documented in this encounter Medications at Time [...] to pts home pharmacy and they will chemical supervisor on the way. Hospital bed to bedelivered [...] discharged home without issue. * Rosalva Finn INSPECTOR MACHINED PARTS - 09/20/2014 2:06 PM EST Physical Therapy Note Treatment # 5 Patient profile: Patient is a 69 y.o. male of Karmen Leyva DO, admitted in transfer on09/09/2014 for ERCP to r/o acute cholecystitis. Pt intubated for procedure and required several days to improve lung function for extubation. 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 Objective: Pt seen for self nursing home management to address goals. was present. Vital [...] minutes. Total timed interventions: 10 minutes. Pager: [phone] ROSALVA FINN, INSPECTOR MACHINED PARTS 09/20/2014 Physical Therapy Rehabilitation Department * Karmen [...] spent >30 minutes (Day of Discharge Code 12898) involved in the final examination of the [...] and honor food preferences as available. * Madsion Stringer RN - 09/20/2014 8:30 AM EST OFFICE OF CARE MANAGEMENT CLINICAL SUPERINTENDENT PLANT PROTECTION PROGRESS NOTE CRC: Madison Stringer RN Pager #[phone] CRC Service: [facility] Hospitalist Pager #[phone] Reviewed record and discussed pt in rounds with Charge/Resource RN, mophead sewer, PT, CRC and with ProviderTeam. e-DH reviewed. Report received from Dr. Silvestre Patient Is medically ready for discharge to home with VNA service. Called patient's room to follow up r/t [facility] obtaining a bariatric bed from different office. Patient informed CRC that he and his have decided to use [facility] and do not need an order written from MD. They have declined this CRC's procurement of bariatric bed through [facility], as discussed yesterday, as they have made other arrangements. It is to be delivered to patients house today per patient. Patient states he does not require any more of this CRC's services. I have set up VNA services through [facility] per patient request. [facility] [employer] [facility]. PHONE: [phone] FAX: [phone] [facility]'s answering service has been notified [...] ??? ASCVD (arteriosclerotic cardiovascular disease) 1993 first [place] 1992, stent to LAD in 2006 ??? [...] reports that pt given vit K at [facility] prior to his transfer here. Physical Exam: [...] Respiratory failure due to volume overload, underlying TMO -improved with diuresis (approx 12L) -stable on [...] for hosp bed signed Full code Pager [phone] IPI Certification I certify that I am a D-H credentialed attending provider with admitting privileges and that the patient meets or has met medical necessity to require an inpatient IPI level of care meeting a minimumof two midnights or is on the [facility] inpatient only procedure list (status C) due to: monitoring of fluid status and the need for diuresis; iv antibiotics for cholecystitis vs cholangitis (completing today); titration of rate control regimen; titration of antihypertensive regimen. KARMEN SILVESTRE DO 09/19/2014 * Madison Stringer RN - 09/19/2014 1:05 PM EST OFFICE OF CARE MANAGEMENT CLINICAL SUPERINTENDENT PLANT PROTECTION PROGRESS NOTE CRC: Madison Stringer RN Pager #[phone] CRC Service: GI Hospitalist pager #[phone] Reviewed record and discussed pt in rounds with Charge/Resource RN, mophead sewer, PT, CRC and with ProviderTeam. e-DH reviewed. Report received from Dr. Donovan Silvestre Patient continues to require acute inpatient care. Met with patient at bedside. Patient worked with PT this morning and may be able to manage at home.Patients Leah has already spoken to [facility] r/t [facility] bed rental. They are aware that insurance may not cover cost and they are willing to rent a bed they also would like an over the bed table. [facility] Leah has been speaking with Arpan at [facility] Order has been pended and booking request sent in [facility]. Patient does have a walker and cane at home and Leah will bring it in tomorrow to see if it is appropriate DME for patient size. If they are not the correct size patient and would like to use [facility] to obtain additional DME. Patient would like to use VNA services, PT/OT/RN/COOKIE PADDER [facility]. PHONE: [phone] FAX: [phone] Plan: CRC will continue to follow for [...] Patient extubated and transferred from ICU to [facility] on 09/13/2014. Patient overall doing [...] bedroom) on main level, though spoke with [employer] during session and plans to have hospital [...] Patient ascended and descended 3 steps with INSPECTOR MACHINED PARTS, with use of rail, cane, and contact guard-see INSPECTOR MACHINED PARTS note for detail. Stand to sit: Modified [...] and treatment recommendations discussed with RN, PT, INSPECTOR MACHINED PARTS, and other staff. 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 Objective: Pt seen with OT for exercise and self nursing home management to address goals. was present. Vital [...] minutes. Total timed interventions: 25 minutes. Pager: [phone] ROSALVA FINN, INSPECTOR MACHINED PARTS 09/19/2014 Physical Therapy Rehabilitation Department * Katy [...] as ordered in nursing communication * Karmen Silvesrte DO - 09/18/2014 2:59 PM EST Inpatient [...] ??? ASCVD (arteriosclerotic cardiovascular disease) 1993 first [place] 1992, stent to LAD in 2006 ??? [...] care All ? answered Full code Pager [phone] IPI Certification I certify that I am a D-H credentialed attending provider with admitting privileges and that the patient meets or has met medical necessity to require an inpatient IPI level of care meeting a minimumof two midnights or is on the [facility] inpatient only procedure list (status C) [...] ??? ASCVD (arteriosclerotic cardiovascular disease) 1993 first [place] 1992, stent to LAD in 2006 ??? 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 * Andre Martinez, RADIO HOST - 09/16/2014 2:53 PM EST Speech-Language Pathology [...] any questions or concerns. Andre Martinez MS, CCC-RADIO HOST Inpatient Rehabilitation Medicine Pager:#[phone] * Espinoza Crawford MD - 09/16/2014 10:30 [...] ??? ASCVD (arteriosclerotic cardiovascular disease) 1993 first [place] 1992, stent to LAD in 2006 ??? [...] on progress with PT Full code Pager [phone] IPI Certification I certify that I am a D-H credentialed attending provider with admitting privileges and that the patient meets or has met medical necessity to require an inpatient IPI level of care meeting a minimumof two midnights or is on the [facility] inpatient only procedure list (status C) [...] Jeffrey Parry - 09/15/2014 3:36 PM EST Wax Pattern Assembler Encounter Note Patient Name: Jaime Crouch : [id number] MR#: [id number] Admit Date: 09/09/2014 6:20 PM Hospital Day 6 days Narrative:Visited to introduce and assess acceptance of Wax Pattern Assembler services.Pt was awake, alert oriented, pleasant and [...] better and go to work. Pt loves Yazidism spirituality and that is source of comfort and peace. Pt is accepting sufferings as a part of human life and deal with it. Intervention and Outcome:Provided emotional, spiritual support and encouraging presence. Pt expressed thankfulness for visiting. Wax Pattern Assembler services accepted.Conversation to build trusting relationship.Provided pastoral [...] ??? ASCVD (arteriosclerotic cardiovascular disease) 1993 first [place] 1992, stent to LAD in 2006 ??? 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 Reports SOB [...] ??? ASCVD (arteriosclerotic cardiovascular disease) 1993 first [place] 1992, stent to LAD in 2006 ??? [...] lovenox at proph dose Full code Pager [phone] IPI Certification I certify that I am a D-H credentialed attending provider with admitting privileges and that the patient meets or has met medical necessity to require an inpatient IPI level of care meeting a minimumof two midnights or is on the [facility] inpatient only procedure list (status C) [...] detailed information. 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; done slowly Baseline Mobility: independent per spouse; works daily Equipment at home: no routine DME Precautions/Special Considerations: fall risk; rapid a-fib; bariatric; tender shins-mepilex Subjective: I'd like to stand up I need to sit Objective: pt seen in am with OT, seen in pm with INSPECTOR MACHINED PARTS for bed mobility, EOB sitting and standing [...] minutes am and pm with OT and INSPECTOR MACHINED PARTS Total timed interventions: 24 minutes TEF Pager: [phone] RULA JONES, PT 09/14/2014 Physical Therapy Rehabilitation Department * Andre Martinez, RADIO HOST - 09/14/2014 1:47 PM EST Speech-Language Pathology [...] any questions or concerns. Andre Martinez MS, CCC-RADIO HOST Inpatient Rehabilitation Medicine Pager:#[phone] * Madison Stringer RN - 09/14/2014 10:59 AM EST OFFICE OF CARE MANAGEMENT CLINICAL SUPERINTENDENT PLANT PROTECTION PROGRESS NOTE CRC: Madison Stringer RN Pager #[phone] CRC Service:GI Hospitalist pager #[phone] Reviewed record and discussed pt in rounds with Charge/Resource RN, mophead sewer, PT, CRC and with ProviderTeam. [facility] reviewed. Report received from Dr. Crawford Patient continues to require acute inpatient care. Patient is currently receiving IV Abx. 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 He drives, hasa second floor office [...] ?? Met with patient/family at bedside. Discussed [facility], Office of Care Management letter from the Specialty Food Products Supervisor pertaining to rehab referrals.. ?? Reviewed levels of rehab including SNF, swing, acute and LTAC. ?? A list that serves the geographical area which the patient resides or the geographical area requested has been provided through [employer] search. ?? Requested patient/family provide at least three choices for referral. ?? Patient/family [facility] to [facility]. [facility] [address] [place], [place] [address] 2. [facility] [address] [place], [place] [id number] 3. [facility] PHONE: [phone] FAX: [phone] Note routed to [employer] Administrator who will communicate referrals to facilities via discoapian program. Discussed transportation options with patient and [...] listed in patients chart. I will ask SHORT STORY WRITER to look into insurance coveragefor the family. 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 Appetite: Pt reports having all of his breakfast this morning Chewing/Swallowing: See RADIO HOST note N/V: No issues per pt O: Patient Active Problem List Diagnosis Code ??? Nephrolithiasis 592.0 ??? Phimosis 605 ??? Hypertension 401.9 ??? Cholecystitis 575.10 ??? Atrial fibrillation 427.31 ??? TOM on CPAP 327.23 Past Medical History Diagnosis Date ??? Kidney stone ??? Hypertension ??? ASCVD (arteriosclerotic cardiovascular disease) 1993 first [place] 1992, stent to LAD in 2006 ??? [...] to low Na+. Recommend a 2 gm Na+,[facility] (Heart Healthy) diet. Pt just extubated yesterday [...] any questions or concerns. Andre Martinez, MS, [facility]-RADIO HOST Inpatient Rehabilitation Medicine Pager:#[phone] * Espinoza Crawford MD - 09/13/2014 10:30 [...] ??? ASCVD (arteriosclerotic cardiovascular disease) 1993 first [place] 1992, stent to LAD in 2006 ??? [...] minimumof two midnights or is on the [facility] inpatient only procedure list (status C) [...] parameters for telemetry monitoring (low 40bpm - [id number]) as they feel it is too great [...] leak test. Continued diuresis. Trial of extubation. [place] scope available for emergent reintubation if required [...] 69 y.o. male admitted on 09/09/2014 from [facility] for ERCP secondary to clinical picture consistent with acute cholecystitis vs ascending cholangitis. Pt found to be difficult to intubate. Pt being treated with Zosyn for acute cholecystitis, Pt is not a candidate for a cholecystectomy at present secondary to likely GI infection. Pt remained intubated following procedure secondary to concern for pulmonary edema. Pt extubated to [place] this AM. CXR performed 09/11/14 revealed low lung volumes with pulmonary edema stable or slightly improved, with mild patchy left lobeatelectasis or pneumonia. Pt's past medical history significant for TOM, requiring CPAP at home. Speech consulted to perform bedside swallow evaluation. Past Medical History: Past Medical History Diagnosis Date ??? Kidney stone ??? Hypertension ??? ASCVD (arteriosclerotic cardiovascular disease) 1993 first [place] 1992, stent to LAD in 2006 ??? [...] to sit upright; Functional Oral Intake Scale ([place] 2005) 1 - No oral intake 2 [...] of dysphagiasoft solids and nectar thickened liquids. RADIO HOST to monitor Pt closely and upgrade as [...] any questions or concerns. Andre Martinez MS, [facility] Inpatient Rehabilitation Medicine Pager:#[phone] * Debbie Oconnor MD - 09/12/2014 1:11 PM EST Transfer Summary ID: 69 man w/ ASCVD s/p stent to [facility] 2006 and [place] ~1992, Afib on warfarin, and obesity with TOM on CPAP nightly who presented originally with a clinical picture of acute cholecystitis on 09/07 and underwent an ERCP here on 09/09 and because he was a difficult intubation and concern for pulmonary edema, he remained intubated after the procedure. History of Present Illness: 69 man w/ ASCVD s/p stent to [facility] 2006 and [place] ~1992, Afib on warfarin, and obesity with TOM on CPAP nightly who presents to [facility] on 09/07 with new, sudden onset RUQ [...] patient was discussed with GI here at [facility] and plan made was to perform ERCP to relieve what mighthave been a picture of ascending cholangitis versus acute cholecystitis. On arrival to [facility], the day of admission, he was hemodynamically [...] with acute cholecystitis vs ascending cholangitis to [facility] on 09/07 and was transferred here [...] OCONNOR MD PGY1 Internal Medicine Critical Care [place] Service #[id number] * May Linares RN - [...] to follow in eDH. Sherman Duron, PT [id number] Amita Guzman RN - 09/12/2014 9:17 AM EST [employer] (CRC) Office of Care Management Amita Fox RN, CRC Phone [phone] Pager # [phone] INITIAL ASSESSMENT: Reviewed record; interviewed patient and his Leah; services accepted. 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 He drives, has a second floor [...] Pt uses night CPAP for TOM; vendor [employer]. INSURANCE COVERAGE/FINANCIAL ISSUES: [place] [facility] ADVANCE DIRECTIVES: Pt has AD's. I have sent a copy to [facility] to be scanned into ED. Names as DPOAH. REHAB TEAM CONSULTS: PT referral has been placed. SHORT STORY WRITER REFERRAL: has asked if SHORT STORY WRITER could assist with notarizing a POA document that was drawn up by pt's city attorney, and just needs to be signed. [...] Jaime Crouch Service: Critical Care Medicine - [place] Team Responsible Attending: Cynthia Davis Jr., MD PCP: CHERISE STAPELS MD PCP phone #: [phone] ID/Chief Complaint: 69 man w/ ASCVD s/p stent to [facility] 2006 and [place] ~1992, Afib on warfarin, and obesity with [...] Ab: neg Microbiology: Blood Culture- Pending at [facility] Urine Culture- Pending at [facility] Imaging CXR 09/12/13: unchanged from yesterday, redemonstration of low lung volumes and pulmonary edema ASSESSMENT: 69 man w/ ASCVD s/p stent to LAD 2006 and [place] ~1992, Afib on warfarin, and obesity with [...] OCONNOR MD PGY1 Internal Medicine Team pager [phone] 09/12/2014 * Eldon Shi, RT - 09/12/2014 [...] ETCO2 (mmHg) 66 mmHg * Suni Steele, LYE BOILER - 09/11/2014 3:47 PM EST Mr. Crouch remained on below settings throughout shift with no changes made. He passed SBT earlier this morning, but extubation held to allow for more diuresis today. He is a difficult airway, [facility] Plan to continue PSV overnight, SBT and [...] PCP: CHERISE STAPLES MD PCP phone #: [phone] ID/Chief Complaint: 69 man w/ ASCVD s/p stent to [facility] 2006 and [place] ~1992, Afib on warfarin, and obesity with [...] Ab: neg Microbiology: Blood Culture- Pending at [facility] Urine Culture- Pending at [facility] Relevant Diagnostic Studies: None new. ASSESSMENT: 69 man w/ ASCVD s/p stent to [facility] 2006 and [place] ~1992, Afib on warfarin, and obesity with [...] Asencio Internal Medicine, PGY 1 Team pager [phone] 09/11/2014 * Eldon Shi RT - 09/11/2014 [...] unit. --Tien Davis MD * Delroy Marshall, LYE BOILER - 09/10/2014 8:56 AM EST 09/10/14 0731 [...] PCP: CHERISE STAPLES MD PCP phone #: [phone] ID/Chief Complaint: 69 man w/ ASCVD s/p stent to LAD 2006 and [place] ~1992, Afib on warfarin, and obesity with [...] Labs: None Microbiology: Blood Culture- Pending at [facility] Urine Culture- Pending at [facility] Relevant Diagnostic Studies: CXR- 08/10/14: pulmonary edema-unchanged CXR- 08/09/14: pulmonary congestion and edema ASSESSMENT: 69 man w/ ASCVD s/p stent to LAD 2006 and [place] ~1992, Afib on warfarin, and obesity with [...] placed and draining large amount of concentrated euseibo urine. Afib 110's with occasional PVCs. Blood [...] anesthesia to wake pt. Pt slowly waking. [place] frothy secretions suctioned twice. pcxr done. Pttachy [...] via stretcher with RT and nurses and radiographer cardiac catheterization and vent. in to see pt and [...] the procedure I called Nasir Velázquez at [facility] and relayed my concerns about his airway. He felt that given the difficulty of the airway and the lack of back-up at [facility] this weekend he would like to keep the patient at [facility]. We then spoke to [facility] who has accepted the patient on [...] Jaime Crouch Service: Critical Care Medicine - [place] Team Responsible Attending: Nick Broussard MD, PCP: CHERISE STAPLES MD PCP phone #: [phone] ID/Chief Complaint: 69 man w/ ASCVD s/p stent to [facility] 2006 and [place] ~1992, Afib on warfarin, and obesity with TOM on CPAP nightly who presented originally with a clinical picture of acute cholecystitis on 09/07 and underwent an ERCP here on 09/09 and because he was a difficult intubation, he remained intubated after the procedure because of concern of pulmonary edema. History of Present Illness: 69 man w/ ASCVD s/p stent to LAD 2006 and [place] ~1992, Afib on warfarin, and obesity with OTM on CPAP nightly who presents to [facility] on 09/07 with new, sudden onset RUQ [...] patient was discussed with GI here at [facility] and plan made was to perform ERCP to relieve what mighthave been a picture of ascending cholangitis versus acute cholecystitis. On arrival to [facility], the day of admission, he was hemodynamically [...] was made to admit him to the [facility]. OSH labs on 09/07 prior to [...] Labs: None Microbiology: Blood Culture- Pending at [facility] Urine Culture- Pending at [facility] Relevant Diagnostic Studies: CXR- 08/09/14: diffuse fluffy airspace obesities throughout lung medrano ASSESSMENT: 69 man w/ ASCVD s/p stent to LAD 2006 and [place] ~1992, Afib on warfarin, and obesity with [...] extubation John Kerry, PGY-2 Personal Pager # [phone] Team Pager # [phone] I have seen and examined the patent [...] A referral can be made by calling [phone] or by placing a [facility] wound referral. Discussed plan with: RN: Florinda Collier Please contact BERENICE GEE RN on pager [phone] or the wound care team at [phone] or pager [phone] with skin and wound care concerns or questions. * Plan of Care - Berna Salas RN - 09/19/2014 6:55 PM EST Problem: General Plan of Care Goal: Plan of Care Review Outcome: Ongoing (Interventions Implemented as Appropriate) 09/19/14 1526 Plan of Care Review Plan of Care [...] tomorrow. Pt and his are working with [facility] to order hospital bed for home. PLAN [...] Outcome: Ongoing (Interventions Implemented as Appropriate) 09/16/14 3293 Plan of Care Review Plan of Care [...] d/t HR of 140s-160's via telemetryand per testing and regulating technician call. Haque removed, pt voiding in [...] via haque clear yellow, no blood visible. RADIO HOST rounded; pt verbalized understanding that he should [...] Patientcurrently extubated and transferred from ICU to [facility] on 09[facility]13[facility]2014. Past Medical History Diagnosis Date ??? Kidney stone ??? Hypertension ??? ASCVD (arteriosclerotic cardiovascular disease) 1993 first [place] 1992, stent to LAD in 2006 ??? [...] MD at [facility] ENDOSCOPY Social History: Patient lives with his and large dog in a multilevel home. 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 Communication: [facility] Vision & Perception: WFL. Wears glasses. Able to read white board from a distance. Range of motion, strength, coordination: Hand dominance: right Bilateral UEs are within functional limitations. Good casualty insurance claim adjuster strength. Able to touch thumb to each [...] evaluation Total timed interventions: 0 minutes Pager: [phone] Sofía Alonso OTR/L Occupational Therapy Rehabilitation Department [...] Transfer Note Patient transferred from ICU to [facility]. Discussed patient with RN. Reviewed current plan [...] ??? 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 male extubated at 0943 today to [place]; now currently A&Ox4. Continued diuresis, worked with PT today, and spoke with a porter sample case while was present today to assess possible [...] Pt and his were visited by a porter sample case this morning to discuss discharge planning and [...] sounds coarse, spo2 >94%, moderate thin/clear secretions. NW24-207's, BP 90's-130's, afebrile, good pulses. Active bowel [...] Medrano MD - 09/09/2014 6:11 PM EST [facility] Department of Surgery Inpatient Consult [...] ??? ASCVD (arteriosclerotic cardiovascular disease) 1993 first [place] 1992, stent to LAD in 2006 ??? [...] Procedure Name Priority Date/Time Associated Diagnosis Comments APPRISE COUNSELOR SCAN 09/21/2014 12:00 AM EST ECG SCAN [...] in this encounter Results * SCAN DOC: APPRISE COUNSELOR (09/21/2014 12:00 AM EST) Anatomical Region Laterality Modality Other Scanning Provider MEDIA MGR SCAN EXT O RDR/RSLT * SCAN DOC: ECG (09/21/2014 12:00 AM EST) Scanning Provider MEDIA MGR SCAN EXT O RDR/RSLT * Prothrombin Time (09/20/2014 2:39 AM EST) Prothrombin Time 14.7 12.5 - 15.5 sec CERNER MILLENNIUM Comment: [facility] Transfusion Committee Guidelines: INR less than 2.0, [...] Espinoza Crawford MD HEMATOLOGY ORDERAB LES CERNER [employer]NI[employer] * Phosphorus (09/20/2014 2:39 AM EST) Phosphorus 3.1 2.5 - 4.5 mg/dL CERNER [employer]ENNIUM Blood specimen (specimen) 09/20/2014 2:39 AM EST 09/20/2014 3:03 AM EST Narrative Resulting Agency Comment Spec In Lab Karmen Silvestre DO CHEMISTRY ORDERAB LES CERNER [employer] * Magnesium (09/20/2014 2:39 AM EST) Magnesium 0.85 0.69 - 1.07 mmol/L [facility] MILL[facility] Blood specimen (specimen) 09/20/2014 2:39 AM EST 09/20/2014 3:03 AM EST Narrative Resulting Agency Comment Spec In Lab Karmen Silvestre DO CHEMISTRY ORDERAB LES Performing Organization Address [facility] Phone Number [facility] * Prothrombin Time (09/19/2014 2:13 AM EST) Prothrombin Time 13.8 12.5 - 15.5 sec [facility] Comment: [facility] Transfusion Committee Guidelines: INR less than 2.0, PTT less than OR equal to 43.5 seconds, or Fibrinogen greater than or equal to 100 mg/dl indicate adequate procoagulant activity for hemostasis in patients without underlying bleeding disorders. International Normalization Ratio 1.0 0.9 - 1.1 [facility] MILLENNIUM Blood specimen (specimen) 09/19/2014 2:13 AM EST 09/19/2014 2:40 AM EST Narrative Resulting Agency Comment Spec In Lab Espinoza Crawford MD HEMATOLOGY ORDERAB LES Performing Organization Address [facility] Phone Number [facility] * Basic Metabolic Panel (non-fasting) (09/19/2014 2:13 AM EST) Glucose 105 60 - 199 mg/dL [facility] Comment:Diabetes: >=200 mg/d L plus symptoms Blood Urea Nitrogen 20 10 - 20 mg/dL [facility] MILLENNIUM Creatinine 0.90 0.80 - 1.50 mg/dL [facility] MILLENNIUM Comment: Please note that the pediatric reference intervals supplied above were not validated at [facility]. Results from pediatric patients should be interpreted in conjunction to the patient's age, height and muscle mass. Sodium 137 135 - 145 mmol/L [facility] Potassium 4.1 3.5 - 5.0 mmol/L [facility] Comment: Please note: ??Patients with WBC >100,000 [...] the following links into your internet browser. [email or web address] Blood specimen (specimen) 09/19/2014 2:13 AM EST 09/19/2014 2:40 AM EST Narrative Resulting Agency Comment Spec In Lab Karmen Silvestre DO CHEMISTRY ORDERAB LES Performing Organization Address City/[facility] Co de Phone Number [facility] [employer] * Prothrombin Time (09/18/2014 2:04 AM EST) Prothrombin Time 13.8 12.5 - 15.5 sec CERNER MILLENNIUM Comment: [facility] Transfusion Committee Guidelines: INR less than 2.0, [...] Metabolic Panel (non-fasting) (09/18/2014 2:04 AM EST) [facility] Glucose 105 60 - 199 mg/dL CERNER MILLENNIUM Comment:Diabetes: >=200 mg/d L plus symptoms Blood Urea Nitrogen 23(H) 10 - 20 mg/dL CERNER MILLENNIUM Creatinine 0.91 0.80 - 1.50 mg/dL CERNER MILLENNIUM Comment: Please note that the pediatric reference intervals supplied above were not validated at [facility]. Results from pediatric patients should be interpreted [...] the following links into your internet browser. [email or web address] Blood specimen (specimen) 09/18/2014 2:04 AM EST 09/18/2014 2:15 AM EST Narrative Resulting Agency Comment Spec In Lab Karmen Silvestre DO CHEMISTRY ORDERAB LES [facility] ELYIUM * Prothrombin Time (09/17/2014 2:45 AM EST) Prothrombin Time 13.5 12.5 - 15.5 sec CERNER MILLENNIUM Comment: [facility] Transfusion Committee Guidelines: INR less than 2.0, [...] intervals supplied above were not validated at [facility]. Results from pediatric patients should be interpreted [...] the following links into your internet browser. [email or web address] Blood specimen (specimen) 09/17/2014 2:45 AM EST 09/17/2014 3:17 AM EST Narrative Resulting Agency Comment Spec In Lab Espinoza Crawford MD CHEMISTRY ORDERABL ES Performing Organization Address [facility] Co de Phone [...] MD HEMATOLOGY ORDERAB LES Performing Organization Address [facility] de Phone Number [facility] * Prothrombin Time (09/16/2014 2:59 AM EST) Prothrombin Time 13.1 12.5 - 15.5 sec [facility] MILLENNIUM Comment: [facility] Transfusion Committee Guidelines: INR less than 2.0, PTT less than OR equal to 43.5 seconds, or Fibrinogen greater than or equal to 100 mg/dl indicate adequate procoagulant activity for hemostasis in patients without underlying bleeding disorders. International Normalization Ratio 0.9 0.9 - 1.1 [facility] BOWENENNIUM Blood specimen (specimen) 09/16/2014 2:59 AM EST 09/16/2014 3:04 AM EST Narrative Resulting Agency Comment Spec In Lab Espinoza Crawford MD HEMATOLOGY ORDERAB LES Performing Organization Address City/State/[facility] Co de Phone Number MAXIMO NERI * (ABNORMAL) Comprehensive metabolic panel (non-fasting) (09/16/2014 2:59 AM EST) Glucose 118 60 - 199 mg/dL [facility] MILLENNIUM Comment:Diabetes: >=200 mg/d L plus symptoms Blood Urea Nitrogen 25(H) 10 - 20 mg/dL CERNER MILLENNIUM Creatinine 1.02 0.80 - 1.50 mg/dL CERNER MILLENNIUM Comment: Please note that the pediatric reference intervals supplied above were not validated at [facility]. Results from pediatric patients should be interpreted [...] the following links into your internet browser. [email or web address] Blood specimen (specimen) 09/16/2014 2:59 AM EST 09/16/2014 3:04 AM EST Narrative Resulting Agency Comment Spec In Lab Espinoza Crawford MD CHEMISTRY ORDERABL ES Performing Organization Address [facility]/ZIP Co de Phone Number CERDENISE BOWENENNIUM * Magnesium (09/16/2014 2:59 AM EST) Magnesium 0.87 0.69 - 1.07 mmol/L CERNER MILLENNIUM Blood specimen (specimen) 09/16/2014 2:59 AM EST 09/16/2014 3:04 AM EST Narrative Resulting Agency Comment Spec In Lab Cynthia Almanza MD CHEMISTRY ORDERABLES Performing Organization Address [facility] Co de Phone Number CERNER ANDRÉSENNIUM * Nucleated Red Blood Cells (09/15/2014 2:52 AM EST) NRBC% auto 0.0 % CERNER MILLENNIUM NRBC Absolute 0.000 0.000 - 0.012 x10(3)/mcL CERNER MILLENNIUM Blood specimen (specimen) 09/15/2014 2:52 AM EST 09/15/2014 3:12 AM EST Narrative Resulting Agency Comment Spec In Lab Espinoza Crawford MD HEMATOLOGY ORDERAB LES Performing Organization Address [facility]/ZIP Co de Phone Number CERNER ANDRÉSENNIUM * [...] MD HEMATOLOGY ORDERAB LES Performing Organization Address [facility] Co de Phone Number MAXIMO ELYIUM * Prothrombin Time (09/15/2014 2:52 AM EST) Prothrombin Time 13.2 12.5 - 15.5 sec CERNER MILLENNIUM Comment: [facility] Transfusion Committee Guidelines: INR less than 2.0, [...] MD HEMATOLOGY ORDERAB LES Performing Organization Address [facility] de Phone Number CERDENISE NERI * (ABNORMAL) Comprehensive metabolic panel (non-fasting) (09/15/2014 2:52 AM EST) Glucose 108 60 - 199 mg/dL CERNER MILLENNIUM Comment:Diabetes: >=200 mg/d L plus symptoms Blood Urea Nitrogen 24(H) 10 - 20 mg/dL CERNER MILLENNIUM Creatinine 0.99 0.80 - 1.50 mg/dL CERNER MILLENNIUM Comment: Please note that the pediatric reference intervals supplied above were not validated at [facility]. Results from pediatric patients should be interpreted [...] the following links into your internet browser. [email or web address] Blood specimen (specimen) 09/15/2014 2:52 AM EST [...] Lab Espinoza Crawford MD HEMATOLOGY ORDERAB LES [facility] Organization Address City/State/ZIP Co de Phone Number CERDENISE BOWENENNIUM * Prothrombin Time (09/14/2014 2:23 AM EST) Prothrombin Time 13.2 12.5 - 15.5 sec CERNER MILLENNIUM Comment: [facility] Transfusion Committee Guidelines: INR less than 2.0, [...] intervals supplied above were not validated at [facility]. Results from pediatric patients should be interpreted [...] the following links into your internet browser. [email or web address] Blood specimen (specimen) 09/14/2014 2:23 AM EST 09/14/2014 2:38 AM EST Narrative Resulting Agency Comment Spec In Lab Espinoza Crawford MD CHEMISTRY ORDERABL ES Performing Organization Address [facility] Co de Phone [...] MD HEMATOLOGY ORDERAB LES Performing Organization Address [facility]/ZIP Co de Phone Number CERNER MILLENNIUM * [...] MD HEMATOLOGY ORDERAB LES Performing Organization Address [facility] Co de Phone Number MAXIMO ELYIUM * Prothrombin Time (09/13/2014 10:48 AM EST) Prothrombin Time 13.0 12.5 - 15.5 sec CERNER MILLENNIUM Comment: [facility] Transfusion Committee Guidelines: INR less than 2.0, [...] MD HEMATOLOGY ORDERAB LES Performing Organization Address [facility] Co de Phone Number CERDENISE ELYIUM * (ABNORMAL) Comprehensive metabolic panel (non-fasting) (09/13/2014 10:48 AM EST) Glucose 133 60 - 199 mg/dL CERNER MILLENNIUM Comment:Diabetes: >=200 mg/d L plus symptoms Blood Urea Nitrogen 27(H) 10 - 20 mg/dL CERNER MILLENNIUM Creatinine 1.06 0.80 - 1.50 mg/dL CERNER MILLENNIUM Comment: Please note that the pediatric reference intervals supplied above were not validated at [facility]. Results from pediatric patients should be interpreted [...] the following links into your internet browser. [email or web address] Blood specimen (specimen) 09/13/2014 10:48 AM EST [...] weight assay (09/12/2014 1:54 PM EST) Heparin Iruu93a 0.80 IU/mL CERN ER MILLENNIUM Comment: Guidelines [...] Davis Jr., MD HEMATOLOGY ORDER JESSIE MAXIMO [employer] * XR chest PA or AP- 1 [...] MD HEMATOLOGY ORDERABL ES Performing Organization Address [facility]/ZIP Co de Phone Number CERDENISE MILLENNIUM * [...] MD HEMATOLOGY ORDERABL ES Performing Organization Address [facility] Co de Phone Number CERDENISE MILLENNIUM * Prothrombin Time (09/12/2014 12:33 AM EST) Prothrombin Time 14.2 12.5 - 15.5 sec CERNER MILLENNIUM Comment: [facility] Transfusion Committee Guidelines: INR less than 2.0, [...] intervals supplied above were not validated at [facility]. Results from pediatric patients should be interpreted [...] the following links into your internet browser. [email or web address] Blood specimen (specimen) 09/12/2014 12:33 AM EST 09/12/2014 12:36 AM EST Narrative Resulting Agency Comment Spec In Lab Nick Broussard MD CHEMISTRY ORDERABLE S [facility] TechnologiesV[facility] * (ABNORMAL) Basic Metabolic Panel (non-fasting) (09/11/2014 4:50 PM EST) [facility] Glucose 102 60 - 199 mg/dL CERNER MILLENNIUM Comment:Diabetes: >=200 mg/d L plus symptoms Blood Urea Nitrogen 20 10 - 20 mg/dL CERNER MILLENNIUM Creatinine 1.27 0.80 - 1.50 mg/dL CERNER MILLENNIUM Comment: Please note that the pediatric reference intervals supplied above were not validated at [facility]. Results from pediatric patients should be interpreted [...] MILLENNIUM Est Glomerular Filtration Rate 57(L) >=60 [facility] Comment: This estimated GFR (eGFR) value [...] the following links into your internet browser. [email or web address] Blood specimen (specimen) 09/11/2014 4:50 PM EST 09/11/2014 4:56 PM EST Narrative Resulting Agency Comment Spec In Lab Cynthia Davis Jr., MD CHEMISTRY ORDERA BLEGutierrez [facility] * XR chest PA or AP- [...] 12.5 - 15.5 sec CERNER MILLENNIUM Comment: [facility] Transfusion Committee Guidelines: INR less than 2.0, [...] intervals supplied above were not validated at [facility]. Results from pediatric patients should be interpreted [...] the following links into your internet browser. [email or web address] Blood specimen (specimen) 09/11/2014 1:52 AM EST 09/11/2014 1:54 AM EST Narrative Resulting Agency Comment Spec In Lab Nick Broussard MD CHEMISTRY ORDERABLE S Performing Organization Address [facility] de Phone Number [facility] * Potassium (09/10/2014 2:00 PM EST) Pathologist [facility] [place] Potassium 4.4 3.5 - 5.0 mmol/L [facility] Comment: Please note: ??Patients with WBC [...] MD CHEMISTRY ORDERABLE S Performing Organization Address [facility] de Phone Number [facility] * Hepatitis B Core Antibody, IgM (09/10/2014 9:30 AM EST) Hepatitis B Core IgM Negative Negative [facility] Comment: Test Performed by: [place] [facility] [address] [address] Awning Maker: Marium Moreno, Ph.D. Blood specimen (specimen) 09/10/2014 9:30 AM EST 09/12/2014 9:18 AM EST Narrative Resulting Agency Comment Spec In Lab Nick Broussard MD CHEMISTRY ORDERABLE S Performing Organization Address [facility] de Phone Number [facility] * Hepatitis B Surface Antibody (09/10/2014 9:30 AM EST) Hepatitis B Surface Antibody Negative [facility] Comment: Expected Results: Vaccinated: Positive Unvaccinated: Negative Please note: A positive result for this assay is consistent with a concentration of anti-HBs antibodies >10mIU/ml, which indicates that anti-HBs antibodies have been detected at levels consistent with protective immunity against HBV infection. Blood specimen (specimen) 09/10/2014 9:30 AM EST 09/10/2014 9:44 AM EST Narrative Resulting Agency Comment Spec In Lab Nick Broussard MD MoondoABLE S Performing Organization Address [facility] Phone Number [facility] * Hepatitis B Surface Antigen (09/10/2014 9:30 AM EST) Hepatitis B Surface Antigen Negative Negative [facility] Blood specimen (specimen) 09/10/2014 9:30 AM EST 09/10/2014 9:44 AM EST Narrative Resulting Agency Comment Spec In Lab Nick Broussard MD MoondoABLE S Performing Organization Address [facility] Phone Number [facility] * Hepatitis C Antibody (09/10/2014 9:30 AM EST) Hepatitis C Antibody Negative Negative [facility] Blood specimen (specimen) 09/10/2014 9:30 AM EST 09/10/2014 9:44 AM EST Narrative Resulting Agency Comment Spec In Lab Nick Broussard MD CHEMISTRY ORDERABLE S Performing Organization Address [facility] de Phone Number [facility] * XR chest PA or AP- 1 [...] Time 15.5 12.5 - 15.5 sec MAXIMO [employer] Comment: [facility] Transfusion Committee Guidelines: INR less than 2.0, PTT less than OR equal to 43.5 seconds, or Fibrinogen greater than or equal to 100 mg/dl indicate adequate procoagulant activity for hemostasis in patients without underlying bleeding disorders. International Normalization Ratio 1.2(H) 0.9 - 1.1 MAXIMO [employer] Blood specimen (specimen) 09/10/2014 5:55 AM EST [...] intervals supplied above were not validated at [facility]. Results from pediatric patients should be interpreted [...] the following links into your internet browser. [email or web address] Blood specimen (specimen) 09/10/2014 5:55 AM EST [...] Broussard MD POINT OF CARE TEST ORDERABLES [facility] * XR abdomen 1 view (09/09/2014 [...] CARE TEST ORDERABLES Performing Organization Address City/State/[facility] Co de Phone Number [facility] [employer] * XR chest PA or AP- 1 [...] Glucose, POC 112 60 - 199 mg/dL [facility] Comment: Supplemental ranges: <140 mg/dL before meals <180 mg/dL all other times of the day Blood specimen (specimen) 09/09/2014 6:28 PM EST 09/09/2014 6:28 PM EST Nick Broussard MD POINT OF CARE TEST ORDERABLES Performing Organization Address City/[facility] Co de Phone Number MAXIMO [employer] * Lipase (09/09/2014 5:35 PM EST) Lipase 36 0 - 60 unit/L MAXIMO [employer] Blood specimen (specimen) Venous Draw / Unknown 09/09/2014 5:35 PM EST 09/09/2014 5:57 PM EST Narrative Resulting Agency Comment Spec In Lab Nick Broussard MD CHEMISTRY ORDERABLE S Performing Organization Address City/[facility] Co de Phone Number MAXIMO [employer] * (ABNORMAL) Differential, Automated (09/09/2014 5:35 PM [...] MD HEMATOLOGY ORDERABL ES Performing Organization Address [facility] de Phone Number MAXIMO NERI * (ABNORMAL) Prothrombin Time (09/09/2014 5:35 PM EST) Prothrombin Time 16.8(H) 12.5 - 15.5 sec CERDENISE BOWENENNIUM Comment: [facility] Transfusion Committee Guidelines: INR less than 2.0, [...] MD HEMATOLOGY ORDERABL ES Performing Organization Address [facility] Co de Phone [...] intervals supplied above were not validated at [facility]. Results from pediatric patients should be interpreted [...] the following links into your internet browser. [email or web address] Blood specimen (specimen) 09/09/2014 5:35 PM EST [...] JACOB) documented in this encounter Care Teams Research Project Manager Relationship Specialty Start Date End Date Cherise Staples MD [address] [place] [address] PCP - General 07/31/10 10/04/19 documented as of this encounter
--- OUTSIDE RECORDS SUMMARY | 2024-08-20 10:56 | XMS_ITS | Encounter Summary ---
[place] [address] Care Team Providers Care Pharmacy Coordinator Name Role Phone Cherise Staples MD Primary Care Provider Encounter Details Date Type Department Care Team (Late st Contact Info) Description 01/05/2014 10:07 AM EDT - 01/05/2014 11:59 PM EDT Hospital [place] [id number] Urolithiasis Social History Tobacco Use Types Packs/Day [...] 01/05/2014 11:16 am) Patient Info ID: ? [id number] ? : [birth year] (68 yrs) Name: ? LAZARO SUAIO ?Visit Date: 01/05/2014 10:54 am Performed By Performed By: ?Rosaura Fournier RDMS Attending: ? Miguel SPIVEY, Ryan Kwon Referred By: ? EDYTA ARANDA Service(s) Provided URETRO - Retroperitoneal Complete - [id number] ? [id number] Indications History of kidney stones Comparison Ultrasound: [...] Final 01/05/2014 11:16 am) Patient Info ID: [id number] : [birth year] (68 yrs) Name: LAZARO CROUCH Visit Date: 01/05/2014 10:54 am Performed By Performed By: Rosaura Fournier RDMS Attending: Ryan Rivera MD Referred By: EDYTA ARANDA Service(s) Provided URETRO - Retroperitoneal Complete - [id number] Indications History of kidney stones Comparison Ultrasound: [...] unspecified documented in this encounter Care Teams Pharmacy Coordinator Relationship Specialty Start Date End Date Cherise Staples MD [address] [place] [id number] PCP - General 07/31/10 10/04/19 documented as of this encounter
--- OUTSIDE RECORDS SUMMARY | 2024-08-20 10:56 | XMS_ITS | Encounter Summary ---
Author Organization [facility] Address [facility] [place] [address] Care Team Providers Care Activity Manager Name Role Phone Cherise Staples MD Primary Care Provider [phone] Encounter Details Date Type Department Care Team (Late st Contact Info) Description 09/09/2014 2:46 PM EST Anesthesia Event [place] [address] Pippa Mendoza MD [facility] [address] [place] [address] Anesthesia Record Procedure Summary Procedure Name Responsible [...] Time: 1040 09/09/14 1505 by Shaheen Carvajal, MEATCUTTER 09/12/14 1040 by Suni Steele RRT documented [...] He has a history of CAD with OK at age 52 and 2 stents in [...] risks discussed with patient. Plan discussed with MEATCUTTER. Tashia. Assessment: documented in this encounter Plan [...] mcg documented in this encounter Care Teams Activity Manager Relationship Specialty Start Date End Date Cherise Staples MD [address] [place] [id number] PCP - General 07/31/10 10/04/19 documented as of this encounter
--- OUTSIDE RECORDS SUMMARY | 2024-08-20 10:56 | XMS_ITS | Encounter Summary ---
Author Organization [facility] [place] [address] Care Team Providers Care Environmental Property Assessor Name Role Phone Cherise Staples MD Primary Care Provider [phone] Encounter Details Date Type Department Care Team (Late st Contact Info) Description 01/13/2013 Orders [place] [address] Fabricio Aranda Jr., MD [facility] [place] [address] Calculus of kidney (Primary Dx) Social History [...] Primary documented in this encounter Care Teams Environmental Property Assessor Relationship Specialty Start Date End Date Cherise Staples MD [address] [place], [place] [id number] PCP - General 07/31/10 10/04/19 documented as of this encounter
--- OUTSIDE RECORDS SUMMARY | 2024-08-20 10:56 | XMS_ITS | Encounter Summary ---
Author Organization [place] [address] Care Team Providers Care Dental Treatment Coordinator Name Role Phone Cherise Staples MD Primary Care Provider [phone] Encounter Details Date Type Department Care Team (Latest Contact Info) Description 09/09/2014 6:20 PM EST - 09/20/2014 3:37 PM [facility] Hospital Encounter [address] [place] [id number] Nick Broussard MD [facility] [place] [address] yCnthia Davis Jr., [place] [address] Espino[place] [address] [place] [address] Calculus of bile duct with acute cholecystitis [...] ??? 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 Atrial fibrillation chronic anticoagulation ??? Nephrolithiasis hx of nephrostomy tube and posterior approach removal ??? HLD (hyperlipidemia) ??? Chronic venous insufficiency ??? TOM on CPAP ??? DVT (deep venous thrombosis) ??? PE (pulmonary embolism) Procedures: ERCP 09/09/14 (see 'Studies' below for details). History of Presentation: 69 man w/ ASCVD s/p stent to LAD 2006 and ME ~1992, Afib on warfarin, and obesity with TOM on CPAP nightly who presents to [facility] on 09/07 with new, sudden onset [...] patient was discussed with GI here at [facility] and plan made was to perform ERCP to relieve what mighthave been a picture of ascending cholangitis versus acute cholecystitis. On arrival to [facility], the day of admission, he was hemodynamically [...] [facility]. Upon restarting his [...] 1.1 1.0 1.0 Studies: ERCP-09/09/14 Findings: The staffing rn film was normal and the procedure was [...] Date Signed: 09/19/2014 Karmen Silvestre DO NPI#: [id number] Questions: Vendor Name/Contact information: [employer]. Comment - [facility] office Referral to Home Health - at DISCHARGE [[id number] CPT(R)] As directed Process Instructions: Scheduling Instructions: [...] nurse practitioner, clinical nurse specialist or physician's food and nutrition services assistant who is working directly with them, [...] patient's PCP: CHERISE STAPLES MD [address] [place] [id number] All VNA agencies which cover the area of patient's residence have been reviewed, either verbally hortencia writing, and patient/family have chosen the indicated home health care agency for home services. [facility]. PHONE: [phone] FAX: [phone] RN - to assess CP/GI//nutrition/hydration/elimination. Check vital [...] ADL retraining. Home safety evaluation. Assess for HUMAN CAPITAL CONSULTANT needs. Teach energy conservation techniques. HUMAN CAPITAL CONSULTANT - to assist with personal care. Questions: Agency name and contact information: [facility] Patient location post discharge: [facility] home What services are requested: Registered Nurse Physical Therapy Occupational Therapy Home Health Aide Start date: 09/20/2014 Responsible MD post discharge contact info: home PCP Referral to Home Health - at DISCHARGE [[id number] CPT(R)] As directed Process Instructions: Scheduling Instructions: [...] nurse practitioner, clinical nurse specialist or physician's food and nutrition services assistant who is working directly with them, [...] patient's PCP: CHERISE STAPLES MD [address] [place] [id number] All VNA agencies which cover the area of patient's residence have been reviewed, either verbally hortencia writing, and patient/family have chosen the indicated home health care agency for home services. [facility]. PHONE: [phone] FAX: [phone] RN - to assess CP/GI//nutrition/hydration/elimination. Check vital [...] pt's pcp, CHERISE STAPLES MD at number [phone] PT - home exercise program, strengthening exercises. Home safety evaluation. Gait retraining program. OT - assess for DME needs and ADL modifications. ADL retraining. Home safety evaluation. Assess for HUMAN CAPITAL CONSULTANT needs. Teach energy conservation techniques. HUMAN CAPITAL CONSULTANT - to assist with personal care. Questions: Agency name and contact information: [facility] Patient location post discharge: home What services are requested: Registered Nurse Occupational Therapy Home Health Aide Start date: 09/20/2014 Responsible MD post discharge contact info: CHERISE STAPLES MD, [address], [place] [address], Discharge Instructions: Patient Instructions Instruction after leaving [...] not take or discontinue any prescription or oqxe-kda-qldwobv medications without asking your doctor or pharmacist [...] Date Signed: 09/19/2014 Karmen Silvestre DO NPI#: [id number] Questions: Vendor Name/Contact information: [employer]. Comment - [facility] office Referral to Home Health - at DISCHARGE [[id number] CPT(R)] As directed Process Instructions: Scheduling Instructions: [...] nurse practitioner, clinical nurse specialist or physician's food and nutrition services assistant who is working directly with them, [...] PCP: CHERISE STAPLES MD [address] [place] [address] All VNA agencies which cover the area of patient's residence have been reviewed, either verbally hortencia writing, and patient/family have chosen the indicated home health care agency for home services. [facility]. PHONE: [phone] FAX: [phone] RN - to assess CP/GI//nutrition/hydration/elimination. Check vital [...] ADL retraining. Home safety evaluation. Assess for HUMAN CAPITAL CONSULTANT needs. Teach energy conservation techniques. HUMAN CAPITAL CONSULTANT - to assist with personal care. Questions: Agency name and contact information: [facility] Patient location post discharge: [facility] home What services are requested: Registered Nurse Physical Therapy Occupational Therapy Home Health Aide Start date: 09/20/2014 Responsible MD post discharge contact info: home PCP Referral to Home Health - at DISCHARGE [[id number] CPT(R)] As directed Process Instructions: Scheduling Instructions: [...] nurse practitioner, clinical nurse specialist or physician's food and nutrition services assistant who is working directly with them, [...] PCP: CHERISE STAPLES MD [address] [place] [address] All A agencies which cover the area of patient's residence have been reviewed, either verbally hortencia writing, and patient/family have chosen the indicated home health care agency for home services. [facility] [employer]. PHONE: [phone] FAX: [phone] RN - to assess CP/GI//nutrition/hydration/elimination. Check vital [...] pt's pcp, CHERISE STAPLES MD at number [phone] PT - home exercise program, strengthening exercises. Home safety evaluation. Gait retraining program. OT - assess for DME needs and ADL modifications. ADL retraining. Home safety evaluation. Assess for HUMAN CAPITAL CONSULTANT needs. Teach energy conservation techniques. HUMAN CAPITAL CONSULTANT - to assist with personal care. Questions: Agency name and contact information: [facility] Patient location post discharge: home What services are requested: Registered Nurse Occupational Therapy Home Health Aide Start date: 09/20/2014 Responsible MD post discharge contact info: CHERISE STAPLES MD, [address], [place] [address], For questions regarding this document or issues relating to this hospitalization on the Medical Service, please contact your inpatient physician through the [facility] [place] [facility] . Issues afterhours and on weekends will be handled by the Hospitalist staff on-call. Greater than 30 min spent coordinating pt care. Phoned PCP Dr Staples - unavailable, d/w nursing, reviewed to hosp, course, tx plans. She confirms they will follow INR and adjust medication Including coumadin & lovenox Signed:KARMEN SILVESTRE DO Cc: Dr Cherise Staples fax [phone] documented in this encounter Discharge Instructions * [...] not take or discontinue any prescription or cltq-oya-aaaglef medications without asking your doctor or pharmacist [...] Everywhere. * ACUTE CHOLECYSTITIS : GENERAL INFO ([place]) * ATRIAL FIBRILLATION ([place]) * SLEEP APNEA ([place]) * WEIGHT: OVERWEIGHT ([place]) * ENOXAPARIN (LOVENOX) ([place]) * VITAMIN K DIET ([place]) documented in this encounter Medications at Time [...] to pts home pharmacy and they will sampler pickup on the way. 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 Objective: Pt seen for self fci management to address goals. was present. Vital [...] minutes. Total timed interventions: 10 minutes. Pager: [phone] ROSALVA FINN, CINTHYA 09/20/2014 Physical Therapy Rehabilitation [...] spent >30 minutes (Day of Discharge Code 31382) involved in the final examination of the [...] AM EST OFFICE OF CARE MANAGEMENT CLINICAL INVESTIGATOR PROGRESS NOTE CRC: Madison Stringer RN Pager #[phone] CRC Service: GI Hospitalist Pager #[phone] Reviewed record and discussed pt in rounds with Charge/Resource RN, web systems developer, PT, CRC and with ProviderTeam. e-DH reviewed. Report received from Dr. Silvestre Patient Is medically ready for discharge to home with VNA service. Called patient's room to follow up r/t [facility] obtaining a bariatric bed from different office. Patient informed CRC that he and his have decided to use [facility] and do not need an order written from . They have declined this CRC's procurement of bariatric bed through [facility], as discussed yesterday, as they have made other arrangements. It is to be delivered to patients house today per patient. Patient states he does not require any more of this CRC's services. I have set up VNA services through [place] per patient request. [facility] [employer]. PHONE: [phone] FAX: [phone] [facility]'s answering service has been notified [...] ??? ASCVD (arteriosclerotic cardiovascular disease) 1993 first [place] 1992, stent to LAD in 2006 ??? [...] reports that pt given vit K at [facility] prior to his transfer here. Physical Exam: [...] - reports pt had vit K at [facility] which will make control difficult -stop DVT [...] for hosp bed signed Full code Pager [phone] IPI Certification I certify that I am a D-H credentialed attending provider with admitting privileges and that the patient meets or has met medical necessity to require an inpatient IPI level of care meeting a minimumof two midnights or is on the [facility] inpatient only procedure list (status C) due to: monitoring of fluid status and the need for diuresis; iv antibiotics for cholecystitis vs cholangitis (completing today); titration of rate control regimen; titration of antihypertensive regimen. KARMEN SILVESTRE DO 09/19/2014 * Madison Stringer RN - 09/19/2014 1:05 PM EST OFFICE OF CARE MANAGEMENT CLINICAL INVESTIGATOR PROGRESS NOTE CRC: Madison Stringer RN Pager #[phone] CRC Service: GI Hospitalist pager #[phone] Reviewed record and discussed pt in rounds with Charge/Resource RN, Fang, PT, CRC and with ProviderTeam. e-DH reviewed. Report received from Dr. Donovan Silvestre Patient continues to require acute inpatient care. Met with patient at bedside. Patient worked with PT this morning and may be able to manage at home.Patients Leah has already spoken to [facility] r/t hospital bed rental. They are aware that insurance may not cover cost and they are willing to rent a bed they also would like an over the bed table. [facility] Leah has been speaking with Arpan at [facility] Order has been pended and [facility] sent [facility] [employer] [facility]. Patient does have a walker and cane at home and Leah will bring it in tomorrow to see if it is appropriate DME for patient size. If they are not the correct size patient and would like to use [facility] to obtain additional DME. Patient would like to use VNA services, PT/OT/RN/MARQUISE [facility]. PHONE: [phone] FAX: [phone] Plan: CRC will continue to follow for [...] Patient extubated and transferred from ICU to [facility] on 09/13/2014. Patient overall doing [...] main level, though spoke with medical equipment [employer] during session and plans to have hospital [...] main level of home initially (1/2 bath, [facility] hospital bed to be delivered, kitchen, dining/living room). Activities of Daily Living: UB dressing: Patient requiring minimal assistance to [facility] gown and independent in doffing. LB [...] Patient ascended and descended 3 steps with ART CLASS MODEL, with use of rail, cane, and contact guard-see ART CLASS MODEL note for detail. Stand to sit: Modified [...] and treatment recommendations discussed with RN, PT, ART CLASS MODEL, and other staff. 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 Objective: Pt seen with OT for exercise and self fci management to address goals. was present. Vital [...] minutes. Total timed interventions: 25 minutes. Pager: [phone] ROSALVA FINN PTA 09/19/2014 Physical Therapy Rehabilitation [...] ??? ASCVD (arteriosclerotic cardiovascular disease) 1993 first [place] 1992, stent to LAD in 2006 ??? [...] care All ? answered Full code Pager [phone] IPI Certification I certify that I am a D-H credentialed attending provider with admitting privileges and that the patient meets or has met medical necessity to require an inpatient IPI level of care meeting a minimumof two midnights or is on the [facility] inpatient only procedure list (status C) due [...] ??? ASCVD (arteriosclerotic cardiovascular disease) 1993 first ME 1992, stent to LAD in 2006 ??? [...] rehab coordinated and improved Full code Pager [phone] IPI Certification I certify that I am a D-H credentialed attending provider with admitting privileges and that the patient meets or has met medical necessity to require an inpatient IPI level of care meeting a minimumof two midnights or is on the [facility] inpatient only procedure list (status C) due [...] MD at 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 * Andre Martinez, SCHEDULING REPRESENTATIVE - 09/16/2014 2:53 PM EST Speech-Language Pathology [...] any questions or concerns. Andre Martinez MS, CCC-SCHEDULING REPRESENTATIVE Inpatient Rehabilitation Medicine Pager:#[phone] * Espinoza Crawford MD - 09/16/2014 10:30 [...] ??? ASCVD (arteriosclerotic cardiovascular disease) 1993 first [place] 1992, stent to LAD in 2006 ??? [...] on progress with PT Full code Pager [phone] IPI Certification I certify that I am a D-H credentialed attending provider with admitting privileges and that the patient meets or has met medical necessity to require an inpatient IPI level of care meeting a minimumof two midnights or is on the [facility] inpatient only procedure list (status C) due [...] Jeffrey Parry - 09/15/2014 3:36 PM EST Fabric Inspector Encounter Note Patient Name: Jaime Crouch : [id number] MR#: [id number] Admit Date: 09/09/2014 6:20 PM Hospital Day 6 days Narrative:Visited to introduce and assess acceptance of Fabric Inspector services.Pt was awake, alert oriented, pleasant and [...] better and go to work. Pt loves Holiness spirituality and that is source of comfort and peace. Pt is accepting sufferings as a part of human life and deal with it. Intervention and Outcome:Provided emotional, spiritual support and encouraging presence. Pt expressed thankfulness for visiting. Fabric Inspector services accepted.Conversation to build trusting relationship.Provided pastoral [...] ??? ASCVD (arteriosclerotic cardiovascular disease) 1993 first [place] 1992, stent to LAD in 2006 ??? [...] - SCD's, prophylactic lovenox Full code Pager [phone] IPI Certification I certify that I am a D-H credentialed attending provider with admitting privileges and that the patient meets or has met medical necessity to require an inpatient IPI level of care meeting a minimumof two midnights or is on the [facility] inpatient only procedure list (status C) due to: monitoring of fluid status given an inability to regulate fluid balance and the need for administration or restriction of fluids and acute respiratory compromise and/or hypoxia requiring assessment every 4 hours and the ability to respond immediately to the patient's need; iv antibiotics for cholecystitis vs cholangitis. ESPINOZA CRAWFORD MD 09/15/2014 * Sky Dean, ART CLASS MODEL - 09/15/2014 3:02 PM EST Physical Therapy [...] MD at 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 Reports SOB [...] ??? ASCVD (arteriosclerotic cardiovascular disease) 1993 first [place] 1992, stent to LAD in 2006 ??? [...] lovenox at proph dose Full code Pager [phone] IPI Certification I certify that I am a D-H credentialed attending provider with admitting privileges and that the patient meets or has met medical necessity to require an inpatient IPI level of care meeting a minimumof two midnights or is on the [facility] inpatient only procedure list (status C) due [...] detailed information. Sky Dean PTA Pager # [phone] * Rula Jones PT - 09/14/2014 2:10 [...] MD at 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; done slowly Baseline Mobility: independent per spouse; works daily Equipment at home: no routine DME Precautions/Special Considerations: fall risk; rapid a-fib; bariatric; tender shins-mepilex Subjective: I'd like to stand up I need to sit Objective: pt seen in am with OT, seen in pm with ART CLASS MODEL for bed mobility, EOB sitting and standing [...] minutes am and pm with OT and ART CLASS MODEL Total timed interventions: 24 minutes TEF Pager: [phone] RULA JONES, PT 09/14/2014 Physical Therapy Rehabilitation Department * Andre Martinez, SCHEDULING REPRESENTATIVE - 09/14/2014 1:47 PM EST Speech-Language Pathology [...] any questions or concerns. Andre Martinez, MS, CCC-SCHEDULING REPRESENTATIVE Inpatient Rehabilitation Medicine Pager:#[phone] * Madison Stringer RN - 09/14/2014 10:59 AM EST OFFICE OF CARE MANAGEMENT CLINICAL INVESTIGATOR PROGRESS NOTE CRC: Madison Stringer RN Pager #[phone] CRC Service:GI Hospitalist pager #[phone] Reviewed record and discussed pt in rounds with Charge/Resource RN, web systems developer, PT, CRC and with ProviderTeam. e- reviewed. Report received from Dr. Crawford Patient continues to require acute inpatient care. Patient is currently receiving IV Abx. 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 He drives, hasa second floor office in [facility]; per climbs stairs both at his office [...] ?? Met with patient/family at bedside. Discussed [facility], Office of Care Management letter from the Adjunct Faculty Instructor pertaining to rehab referrals.. ?? Reviewed levels of rehab including SNF, swing, acute and LTAC. ?? A list that serves the geographical area which the patient resides or the geographical area requested has been provided through [employer] search. ?? Requested patient/family provide at least three choices for referral. ?? Patient/family [facility] referrals to [facility]. [facility] [address] [place] [address] 2. [facility] (S[facility]) [address] [place] [address] 3. [facility] PHONE: [phone] FAX: [phone] Note routed to Water Truck Driver who will communicate referrals to facilities via [employer] program. Discussed transportation options with patient and [...] listed in patients chart. I will ask DIRECTOR OF BUSINESS SYSTEMS to look into insurance coveragefor the family. [...] MD at 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 Appetite: Pt reports having all of his breakfast this morning Chewing/Swallowing: See SCHEDULING REPRESENTATIVE note N/V: No issues per pt O: Patient Active Problem List Diagnosis Code ??? Nephrolithiasis 592.0 ??? Phimosis 605 ??? Hypertension 401.9 ??? Cholecystitis 575.10 ??? Atrial fibrillation 427.31 ??? TOM on CPAP 327.23 Past Medical History Diagnosis Date ??? Kidney stone ??? Hypertension ??? ASCVD (arteriosclerotic cardiovascular disease) 1993 first [place] 1992, stent to LAD in 2006 ??? [...] to low Na+. Recommend a 2 gm Na+,[facility] (Heart Healthy) diet. Pt just extubated yesterday and still fairly tired today. Dicussed that weight loss and following a heart healthy diet would be ideal mcfp. Nutrition will continue to follow pt and [...] any questions or concerns. Andre Martinez, MS, CCC-SCHEDULING REPRESENTATIVE Inpatient Rehabilitation Medicine Pager:#[phone] * Espinoza Crawford MD - 09/13/2014 10:30 [...] ??? ASCVD (arteriosclerotic cardiovascular disease) 1993 first [place] 1992, stent to LAD in 2006 ??? [...] today given bleeding issues Full code Pager [phone] IPI Certification I certify that I am a D-H credentialed attending provider with admitting privileges and that the patient meets or has met medical necessity to require an inpatient IPI level of care meeting a minimumof two midnights or is on the [facility] inpatient only procedure list (status C) due [...] parameters for telemetry monitoring (low 40bpm - [id number]) as they feel it is too great [...] leak test. Continued diuresis. Trial of extubation. Crescent scope available for emergent reintubation if required [...] y.o. male admitted on 09/09/2014 from [facility] [facility] secondary to clinical picture consistent with acute cholecystitis vs ascending cholangitis. Pt found to be difficult to intubate. Pt being treated with Zosyn for acute cholecystitis, Pt is not a candidate for a cholecystectomy at present secondary to likely GI infection. Pt remained intubated following procedure secondary to concern for pulmonary edema. Pt extubated to [place] this AM. CXR performed 09/11/14 revealed low lung volumes with pulmonary edema stable or slightly improved, with mild patchy left lobeatelectasis or pneumonia. Pt's past medical history significant for TOM, requiring CPAP at home. Speech consulted to perform bedside swallow evaluation. Past Medical History: Past Medical History Diagnosis Date ??? Kidney stone ??? Hypertension ??? ASCVD (arteriosclerotic cardiovascular disease) 1993 first [place] 1992, stent to LAD in 2006 ??? [...] to sit upright; Functional Oral Intake Scale ([place] 2005) 1 - No oral intake 2 [...] of dysphagiasoft solids and nectar thickened liquids. SCHEDULING REPRESENTATIVE to monitor Pt closely and upgrade as [...] any questions or concerns. Andre Martinez, MS, [facility]-SCHEDULING REPRESENTATIVE Inpatient Rehabilitation Medicine Pager:#[phone] * Debbie Oconnor MD - 09/12/2014 1:11 PM EST Transfer Summary ID: 69 man w/ ASCVD s/p stent to LAD 2006 and ME ~1992, Afib on warfarin, and obesity with TOM on CPAP nightly who presented originally with a clinical picture of acute cholecystitis on 09/07 and underwent an ERCP here on 09/09 and because he was a difficult intubation and concern for pulmonary edema, he remained intubated after the procedure. History of Present Illness: 69 man w/ ASCVD s/p stent to LAD 2006 and ME ~1992, Afib on warfarin, and obesity with TOM on CPAP nightly who presents to [facility] on 09/07 with new, sudden onset [...] patient was discussed with GI here at [facility] and plan made was to perform ERCP to relieve what mighthave been a picture of ascending cholangitis versus acute cholecystitis. On arrival to [facility], the day of admission, he was hemodynamically [...] acute cholecystitis vs ascending cholangitis to [facility] on 09/07 and was transferred here for [...] OCONNOR MD PGY1 Internal Medicine Critical Care [place] Service #[id number] * May Linares RN - 09/12/2014 10:43 [...] RN - 09/12/2014 9:17 AM EST CLINICAL INVESTIGATOR (CRC) Office of Care Management Amita Fox RN, CRC Phone [phone] Pager # [phone] INITIAL ASSESSMENT: Reviewed record; interviewed patient and his Leah; services accepted. 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 INSURANCE COVERAGE/FINANCIAL ISSUES: [employer] [facility] ADVANCE DIRECTIVES: Pt has AD's. I have sent a copy to [facility] to be scanned into ED. Names as DPOAH. REHAB TEAM CONSULTS: PT referral has been placed. DIRECTOR OF BUSINESS SYSTEMS REFERRAL: has asked if DIRECTOR OF BUSINESS SYSTEMS could assist with notarizing a POA document that was drawn up by pt's plating equipment tender, and just needs to be signed. POTENTIAL [...] Jaime Crouch Service: Critical Care Medicine - [place] Team Responsible Attending: Cynthia Davis Jr., MD PCP: CHERISE STAPLES MD PCP phone #: [phone] ID/Chief Complaint: 69 man w/ ASCVD s/p stent to LAD 2006 and ME ~1992, Afib on warfarin, and obesity with [...] neg Microbiology: Blood Culture- Pending at [facility] Urine Culture- Pending at [facility] Imaging CXR 09/12/13: unchanged from yesterday, redemonstration of low lung volumes and pulmonary edema ASSESSMENT: 69 man w/ ASCVD s/p stent to LAD 2006 and ME ~1992, Afib on warfarin, and obesity with [...] OCONNOR MD PGY1 Internal Medicine Team pager [phone] 09/12/2014 * Eldon Shi RT - 09/12/2014 [...] He is a difficult airway, [facility]. Plan to continue PSV overnight, [...] PCP: CHERISE STAPLES MD PCP phone #: [phone] ID/Chief Complaint: 69 man w/ ASCVD s/p stent to LAD 2006 and ME ~1992, Afib on warfarin, and obesity with [...] neg Microbiology: Blood Culture- Pending at [facility] Urine Culture- Pending at [facility] Relevant Diagnostic Studies: None new. ASSESSMENT: 69 man w/ ASCVD s/p stent to LAD 2006 and ME ~1992, Afib on warfarin, and obesity with [...] Asencio Internal Medicine, PGY 1 Team pager [phone] 09/11/2014 * Eldon Shi RT - 09/11/2014 [...] unit. --Tien Davis MD * Delroy Marshall, SCALE ATTENDANT - 09/10/2014 8:56 AM EST 09/10/14 0731 [...] PCP: CHERISE STAPLES MD PCP phone #: [phone] ID/Chief Complaint: 69 man w/ ASCVD s/p stent to LAD 2006 and ME ~1992, Afib on warfarin, and obesity with [...] None Microbiology: Blood Culture- Pending at [facility] Urine Culture- Pending at [facility] Relevant Diagnostic Studies: CXR- 08/10/14: pulmonary edema-unchanged CXR- 08/09/14: pulmonary congestion and edema ASSESSMENT: 69 man w/ ASCVD s/p stent to LAD 2006 and ME ~1992, Afib on warfarin, and obesity with [...] Internal Medicine, PGY 1 * Evette Young STAFFING ANALYST - 09/10/2014 5:05 AM EST 09/10/14 0435 [...] Will continue to monitorand treat * Elizabeth iMke RN - 09/09/2014 7:00 PM EST Admitted [...] anesthesia to wake pt. Pt slowly waking. [place] frothy secretions suctioned twice. pcxr done. Pttachy [...] via stretcher with RT and nurses and panel monitor and vent. in to see pt [...] I called Nasir Velázquez at [facility] and relayed my concerns about his airway. He felt that given the difficulty of the airway and the lack of back-up at [facility] this weekend he would like to keep the patient at [facility]. We then spoke to [facility] who has accepted the patient on their [...] PCP: CHERISE STAPLES MD PCP phone #: [phone] ID/Chief Complaint: 69 man w/ ASCVD s/p stent to LAD 2006 and ME ~1992, Afib on warfarin, and obesity with TOM on CPAP nightly who presented originally with a clinical picture of acute cholecystitis on 09/07 and underwent an ERCP here on 09/09 and because he was a difficult intubation, he remained intubated after the procedure because of concern of pulmonary edema. History of Present Illness: 69 man w/ ASCVD s/p stent to LAD 2006 and ME ~1992, Afib on warfarin, and obesity with TOM on CPAP nightly who presents to [facility] on 09/07 with new, sudden onset [...] patient was discussed with GI here at [facility] and plan made was to perform ERCP to relieve what mighthave been a picture of ascending cholangitis versus acute cholecystitis. On arrival to [facility], the day of admission, he was hemodynamically [...] was made to admit him to the [facility]. OSH labs on 09/07 prior to transfer: [...] None Microbiology: Blood Culture- Pending at [facility] Urine Culture- Pending at [facility] Relevant Diagnostic Studies: CXR- 08/09/14: diffuse fluffy airspace obesities throughout lung medrano ASSESSMENT: 69 man w/ ASCVD s/p stent to LAD 2006 and ME ~1992, Afib on warfarin, and obesity with [...] extubation John Payne, PGY-2 Personal Pager # [phone] Team Pager # [phone] I have seen and examined the patent [...] A referral can be made by calling [phone] or by placing a [facility] wound referral. Discussed plan with: RN: Florinda Collier Please contact BERENICE GEE RN on pager [phone] or the wound care team at [phone] or pager [phone] with skin and wound care concerns or questions. * Plan of Care - Berna Salas RN - 09/19/2014 6:55 PM EST Problem: General Plan of Care Goal: Plan of Care Review Outcome: Ongoing (Interventions Implemented as Appropriate) 09/19/14 3446 Plan of Care Review Plan of Care [...] Outcome: Ongoing (Interventions Implemented as Appropriate) 09/16/14 2263 Plan of Care Review Plan of Care [...] d/t HR of 140s-160's via telemetryand per net technical architect call. Haque removed, pt voiding in urinal [...] via haque clear yellow, no blood visible. SCHEDULING REPRESENTATIVE rounded; pt verbalized understanding that he should [...] Patientcurrently extubated and transferred from ICU to [facility] on 09/13/2014. Past Medical History Diagnosis Date ??? Kidney stone ??? Hypertension ??? ASCVD (arteriosclerotic cardiovascular disease) 1993 first [place] 1992, stent to LAD in 2006 ??? [...] MD at [facility] ENDOSCOPY Social History: Patient lives with his and large dog in a multilevel home. 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 Patient's works part time M-F as a [...] and function alone when at work. Communication: [facility] Vision & Perception: WFL. Wears glasses. Able to read white board from a distance. Range of motion, strength, coordination: Hand dominance: right Bilateral UEs are within functional limitations. 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 Able to touch thumb to each [...] evaluation Total timed interventions: 0 minutes Pager: [phone] Sofía Alonso OTR/L Occupational Therapy Rehabilitation Department [...] Transfer Note Patient transferred from ICU to [facility]. Discussed patient with RN. Reviewed current [...] MD at 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; done slowly Baseline Mobility: independent [...] moderate assist x1 as pt moved to [facility] from dip in bariatric bed [...] timed interventions: 0 minutes (extended eval) Pager: [phone] SHERMAN DURON PT 09/12/2014 Physical Therapy Rehabilitation [...] Nutrition Interventions: refer to dietitian, refer to food and nutrition services assistant/tech Promote Nutrition Balance: dietitian consult Current [...] Please contact SOFÍA AIKEN RN on pager [phone] or the wound care team at [phone] or pager [phone] with skin and wound care concerns or [...] y.o. male extubated at 0943 today to [place]; now currently A&Ox4. Continued diuresis, worked with PT today, and spoke with a caser shoe parts while was present today to assess possible [...] Pt and his were visited by a caser shoe parts this morning to discuss discharge planning and [...] sounds coarse, spo2 >94%, moderate thin/clear secretions. OH60-855's, BP 90's-130's, afebrile, good pulses. Active bowel [...] Medrano MD - 09/09/2014 6:11 PM EST [facility] Department of Surgery Inpatient Consult Note Consultation [...] ??? ASCVD (arteriosclerotic cardiovascular disease) 1993 first [place] 1992, stent to LAD in 2006 ??? [...] Procedure Name Priority Date/Time Associated Diagnosis Comments CLERICAL ORDER FILLER SCAN 09/21/2014 12:00 AM EST ECG SCAN [...] in this encounter Results * SCAN DOC: CLERICAL ORDER FILLER (09/21/2014 12:00 AM EST) Anatomical Region Laterality Modality Other Scanning Provider MEDIA MGR SCAN EXT O RDR/RSLT * SCAN DOC: ECG (09/21/2014 12:00 AM EST) Scanning Provider MEDIA MGR SCAN EXT O RDR/RSLT * Prothrombin Time (09/20/2014 2:39 AM EST) Prothrombin Time 14.7 12.5 - 15.5 sec MAXIMO Inaaya Comment: [facility] Transfusion Committee Guidelines: INR less than 2.0, PTT less than OR equal to 43.5 seconds, or Fibrinogen greater than or equal to 100 mg/dl indicate adequate procoagulant activity for hemostasis in patients without underlying bleeding disorders. International Normalization Ratio 1.1 0.9 - 1.1 MAXIMO ImageTagKIKEmobileo Blood specimen (specimen) 09/20/2014 2:39 AM EST 09/20/2014 3:03 AM EST Narrative Resulting Agency Comment Spec In Lab Espinoza Crawford MD HEMATOLOGY ORDERAB LES Performing Organization Address City/State/[facility] Co de Phone Number [facility] * Phosphorus (09/20/2014 2:39 AM EST) Phosphorus 3.1 2.5 - 4.5 mg/dL [facility] Blood specimen (specimen) 09/20/2014 2:39 AM EST 09/20/2014 3:03 AM EST Narrative Resulting Agency Comment Spec In Lab Karmen Silvestre DO CHEMISTRY ORDERAB LES Performing Organization Address [facility] Co de Phone Number [facility] * Magnesium (09/20/2014 2:39 AM EST) Magnesium 0.85 0.69 - 1.07 mmol/L [facility] Blood specimen (specimen) 09/20/2014 2:39 AM EST 09/20/2014 3:03 AM EST Narrative Resulting Agency Comment Spec In Lab Karmen Silvestre DO CHEMISTRY ORDERAB LES Performing Organization Address [facility] Co de Phone Number [facility] * Prothrombin Time (09/19/2014 2:13 AM EST) Prothrombin Time 13.8 12.5 - 15.5 sec [facility] Comment: [facility] Transfusion Committee Guidelines: INR less than 2.0, PTT less than OR equal to 43.5 seconds, or Fibrinogen greater than or equal to 100 mg/dl indicate adequate procoagulant activity for hemostasis in patients without underlying bleeding disorders. International Normalization Ratio 1.0 0.9 - 1.1 [facility] Blood specimen (specimen) 09/19/2014 2:13 AM EST 09/19/2014 2:40 AM EST Narrative Resulting Agency Comment Spec In Lab Espinoza Crawford MD HEMATOLOGY ORDERAB LES Performing Organization Address [facility] Co de Phone Number [facility] * Basic Metabolic Panel (non-fasting) (09/19/2014 2:13 AM EST) Glucose 105 60 - 199 mg/dL CERNER MILLENNIUM Comment:Diabetes: >=200 mg/d L plus symptoms Blood Urea Nitrogen 20 10 - 20 mg/dL [facility] MILLENNIUM Creatinine 0.90 0.80 - 1.50 mg/dL CERNER MILLENNIUM Comment: Please note that the pediatric reference intervals supplied above were not validated at [facility]. Results from pediatric patients should be interpreted [...] the following links into your internet browser. [email or web address]/[email or web address] Blood specimen (specimen) 09/19/2014 2:13 AM EST 09/19/2014 2:40 AM EST Narrative Resulting Agency Comment Spec In Lab Karmen Silvestre DO CHEMISTRY ORDERAB LES MAXIMO NERI * Prothrombin Time (09/18/2014 2:04 AM EST) Prothrombin Time 13.8 12.5 - 15.5 sec CERNER MILLENNIUM Comment: [facility] Transfusion Committee Guidelines: INR less than [...] intervals supplied above were not validated at [facility]. Results from pediatric patients should be interpreted [...] the following links into your internet browser. [email or web address] Blood specimen (specimen) 09/18/2014 2:04 AM EST 09/18/2014 2:15 AM EST Narrative Resulting Agency Comment Spec In Lab Karmen Silvestre DO CHEMISTRY ORDERAB LES Performing Organization Address [facility] Co de Phone Number [facility] Inaaya * Prothrombin Time (09/17/2014 2:45 AM EST) Prothrombin Time 13.5 12.5 - 15.5 sec CERNER MILLENNIUM Comment: [facility] Transfusion Committee Guidelines: INR less than [...] MD HEMATOLOGY ORDERAB LES Performing Organization Address [facility] Co de Phone Number CERBANNER Inaaya * (ABNORMAL) Comprehensive metabolic panel (non-fasting) (09/17/2014 2:45 AM EST) Glucose 106 60 - 199 mg/dL [facility] MILLENNIUM Comment:Diabetes: >=200 mg/d L plus symptoms Blood Urea Nitrogen 22(H) 10 - 20 mg/dL CERNER MILLENNIUM Creatinine 0.91 0.80 - 1.50 mg/dL CERNER MILLENNIUM Comment: Please note that the pediatric reference intervals supplied above were not validated at [facility]. Results from pediatric patients should be interpreted [...] the following links into your internet browser. [email or web address] Blood specimen (specimen) 09/17/2014 2:45 AM EST [...] 12.5 - 15.5 sec CERNER MILLENNIUM Comment: [facility] Transfusion Committee Guidelines: INR less than [...] intervals supplied above were not validated at [facility]. Results from pediatric patients should be interpreted [...] the following links into your internet browser. [email or web address] Blood specimen (specimen) 09/16/2014 2:59 AM EST 09/16/2014 3:04 AM EST Narrative Resulting Agency Comment Spec In Lab Espinoza Crawford MD CHEMISTRY ORDERABL ES Performing Organization Address [facility] de Phone Number CERDENISE BOWENENNIUM * Magnesium (09/16/2014 2:59 AM EST) Magnesium 0.87 0.69 - 1.07 mmol/L CERNER MILLENNIUM Blood specimen (specimen) 09/16/2014 2:59 AM EST 09/16/2014 3:04 AM EST Narrative Resulting Agency Comment Spec In Lab Cynthia Almanza MD CHEMISTRY ORDERABLES Performing Organization Address [facility] Phone Number CERDENISE BOWENENNIUM * Nucleated Red Blood Cells (09/15/2014 2:52 AM EST) NRBC% auto 0.0 % CERNER MILLENNIUM NRBC Absolute 0.000 0.000 - 0.012 x10(3)/mcL CERNER MILLENNIUM Blood specimen (specimen) 09/15/2014 2:52 AM EST 09/15/2014 3:12 AM EST Narrative Resulting Agency Comment Spec In Lab Espinoza Crawford MD HEMATOLOGY ORDERAB LES Performing Organization Address [facility]/ZIP Co de Phone Number MAXIMO ELYIUM * [...] Platelet Volume 10.1 9.0 - 12.0 fL [facility] MILLENNIUM Blood specimen (specimen) 09/15/2014 2:52 AM EST 09/15/2014 3:12 AM EST Narrative Resulting Agency Comment Spec In Lab Espinoza Crawford MD HEMATOLOGY ORDERAB LES Performing Organization Address City/[facility]/ZIP Co de Phone Number [facility]SSAN [facility] * Prothrombin Time (09/15/2014 2:52 AM EST) Prothrombin Time 13.2 12.5 - 15.5 sec [facility] Comment: [facility] Transfusion Committee Guidelines: INR less than 2.0, PTT less than OR equal to 43.5 seconds, or Fibrinogen greater than or equal to 100 mg/dl indicate adequate procoagulant activity for hemostasis in patients without underlying bleeding disorders. International Normalization Ratio 0.9 0.9 - 1.1 [facility] Blood specimen (specimen) 09/15/2014 2:52 AM EST 09/15/2014 3:12 AM EST Narrative Resulting Agency Comment Spec In Lab Espinoza Crawford MD HEMATOLOGY ORDERAB LES [facility] * (ABNORMAL) Comprehensive metabolic panel (non-fasting) (09/15/2014 2:52 AM EST) Glucose 108 60 - 199 mg/dL CERNER MILLENNIUM Comment:Diabetes: >=200 mg/d L plus symptoms Blood Urea Nitrogen 24(H) 10 - 20 mg/dL CERNER MILLENNIUM Creatinine 0.99 0.80 - 1.50 mg/dL CERNER MILLENNIUM Comment: Please note that the pediatric reference intervals supplied above were not validated at [facility]. Results from pediatric patients should be interpreted [...] the following links into your internet browser. [email or web address] Blood specimen (specimen) 09/15/2014 2:52 AM EST [...] 12.5 - 15.5 sec CERNER MILLENNIUM Comment: [facility] Transfusion Committee Guidelines: INR less than [...] intervals supplied above were not validated at [facility]. Results from pediatric patients should be interpreted [...] the following links into your internet browser. [email or web address] Blood specimen (specimen) 09/14/2014 2:23 AM EST 09/14/2014 2:38 AM EST Narrative Resulting Agency Comment Spec In Lab Espinoza Crawford MD CHEMISTRY ORDERABL ES Performing Organization Address City/[facility]/ZIP Co de Phone Number CERNER MILLENNIUM * Scan, Peripheral Blood (09/13/2014 10:48 AM EST) Plat estimate Normal CERNER MILLENNIUM RBC Morphology Normal CERNE R MILLENNIUM Atypical Lymph Moderate CERNE R MILLENNIUM Plat, Giant Less than 1 /HPF CERNER MILLENNIUM Blood specimen (specimen) 09/13/2014 10:48 AM EST 09/13/2014 10:59 AM EST Narrative Resulting Agency Comment Spec In Lab Espionza Crawford MD HEMATOLOGY ORDERAB LES CERNER MILLENNIUM [...] MD HEMATOLOGY ORDERAB LES Performing Organization Address [facility] Co de Phone Number MAXIMO NERI * Prothrombin Time (09/13/2014 10:48 AM EST) Prothrombin Time 13.0 12.5 - 15.5 sec [facility] ELYIUM Comment: [facility] Transfusion Committee Guidelines: INR less than [...] CARE FACILITY Co de Phone Number [facility] * (ABNORMAL) Comprehensive metabolic panel (non-fasting) (09/13/2014 10:48 AM EST) Glucose 133 60 - 199 mg/dL [facility] SOLISIUM Comment:Diabetes: >=200 mg/d L plus symptoms Blood Urea Nitrogen 27(H) 10 - 20 mg/dL CERNER MILLENNIUM Creatinine 1.06 0.80 - 1.50 mg/dL CERNER MILLENNIUM Comment: Please note that the pediatric reference intervals supplied above were not validated at [facility]. Results from pediatric patients should be interpreted [...] the following links into your internet browser. [email or web address] Blood specimen (specimen) 09/13/2014 10:48 AM EST 09/13/2014 10:59 AM EST Narrative Resulting Agency Comment Spec In Lab Espinoza Crawford MD CHEMISTRY ORDERABL ES Performing Organization Address [facility] de Phone Number [facility] * Potassium (09/12/2014 1:54 PM EST) Potassium Not Perf 3.5 - 5.0 mmol/L [facility] Comment: Unable to quantitate due to sample [...] MD CHEMISTRY ORDERABLE S Performing Organization Address [facility] de Phone Number [facility] * Heparin, low molecular weight assay (09/12/2014 1:54 PM EST) Heparin [id number] 0.80 IU/mL [facility] Comment: Guidelines for therapeutic unfractionated and low [...] Cynthia Davis Jr., MD HEMATOLOGY ORDER JESSIE Performing Organization Address City/State/[facility] [...] Nick Broussard MD HEMATOLOGY ORDERABL ES CERNER ANDRÉSENNIUM * (ABNORMAL) Hemogram (09/12/2014 12:33 AM EST) [...] MD HEMATOLOGY ORDERABL ES Performing Organization Address [facility] de Phone Number CERDENISE BOWENENNIUM * Prothrombin Time (09/12/2014 12:33 AM EST) Prothrombin Time 14.2 12.5 - 15.5 sec CERNER MILLENNIUM Comment: [facility] Transfusion Committee Guidelines: INR less than [...] MD HEMATOLOGY ORDERABL ES Performing Organization Address [facility] [facility] de Phone Number CERDENISE BOWENENNIUM * (ABNORMAL) Comprehensive metabolic panel (non-fasting) (09/12/2014 12:33 AM EST) Glucose 96 60 - 199 mg/dL CERNER MILLENNIUM Comment:Diabetes: >=200 mg/d L plus symptoms Blood Urea Nitrogen 23(H) 10 - 20 mg/dL CERNER MILLENNIUM Creatinine 1.20 0.80 - 1.50 mg/dL CERNER MILLENNIUM Comment: Please note that the pediatric reference intervals supplied above were not validated at [facility]. Results from pediatric patients should be interpreted [...] the following links into your internet browser. [email or web address]/[email or web address] Blood specimen (specimen) 09/12/2014 12:33 AM EST 09/12/2014 12:36 AM EST Narrative Resulting Agency Comment Spec In Lab Nick Broussard MD CHEMISTRY ORDERABLE S [facility] * (ABNORMAL) Basic Metabolic Panel (non-fasting) (09/11/2014 4:50 PM EST) Glucose 102 60 - 199 mg/dL CERNER MILLENNIUM Comment:Diabetes: >=200 mg/d L plus symptoms Blood Urea Nitrogen 20 10 - 20 mg/dL CERNER MILLENNIUM Creatinine 1.27 0.80 - 1.50 mg/dL CERNER MILLENNIUM Comment: Please note that the pediatric reference intervals supplied above were not validated at [facility]. Results from pediatric patients should be interpreted [...] the following links into your internet browser. [email or web address] Blood specimen (specimen) 09/11/2014 4:50 PM EST 09/11/2014 4:56 PM EST Narrative Resulting Agency Comment Spec In Lab Cynthia Davis Jr., MD CHEMISTRY ORDERA [facility] Address City/State/ZIP Co de Phone Number [...] MD HEMATOLOGY ORDERABL ES Performing Organization Address [facility] Co de Phone Number CERDENISE BOWENENNIUM * [...] MD HEMATOLOGY ORDERABL ES Performing Organization Address [facility]/ZIP Co de Phone Number CERDENISE BOWENENNIUM * (ABNORMAL) Prothrombin Time (09/11/2014 1:52 AM EST) Prothrombin Time 15.8(H) 12.5 - 15.5 sec CERNER MILLENNIUM Comment: [facility] Transfusion Committee Guidelines: INR less than [...] intervals supplied above were not validated at [facility]. Results from pediatric patients should be interpreted [...] the following links into your internet browser. [email or web address] Blood specimen (specimen) 09/11/2014 1:52 AM EST [...] Nick Broussard MD CHEMISTRY ORDERABLE S [facility] * Hepatitis B Core Antibody, IgM (09/10/2014 9:30 AM EST) Hepatitis B Core IgM Negative Negative [facility] Comment: Test Performed by: [place] [address] Legal Internship: Marium Moreno, Ph.D. Blood specimen (specimen) 09/10/2014 9:30 AM EST 09/12/2014 9:18 AM EST Narrative Resulting Agency Comment Spec In Lab Nick Broussard MD CHEMISTRY ORDERABLE S Performing Organization Address [facility] Co de Phone Number [facility] * Hepatitis B Surface Antibody (09/10/2014 9:30 AM EST) Hepatitis B Surface Antibody Negative [facility] Comment: Expected Results: Vaccinated: Positive Unvaccinated: [...] MD CHEMISTRY ORDERABLE S Performing Organization Address [facility] Co de Phone Number [facility] * Hepatitis B Surface Antigen (09/10/2014 9:30 AM EST) Hepatitis B Surface Antigen Negative Negative [facility] Blood specimen (specimen) 09/10/2014 9:30 AM EST 09/10/2014 9:44 AM EST Narrative Resulting Agency Comment Spec In Lab Nick Broussard MD CHEMISTRY ORDERABLE S [facility] * Hepatitis C Antibody (09/10/2014 9:30 AM [...] 12.5 - 15.5 sec CERNER MILLENNIUM Comment: [facility] Transfusion Committee Guidelines: INR less than [...] intervals supplied above were not validated at [facility]. Results from pediatric patients should be interpreted [...] the following links into your internet browser. [email or web address] Blood specimen (specimen) 09/10/2014 5:55 AM EST [...] Broussard MD POINT OF CARE TEST ORDERABLES [facility] * XR chest PA or [...] * POCT Glucose (09/09/2014 6:28 PM EST) [facility] Glucose, POC 112 60 - 199 mg/dL [facility] Comment: Supplemental ranges: <140 mg/dL before meals [...] MD HEMATOLOGY ORDERABL ES Performing Organization Address [facility] de Phone Number CERDENISE BOWENENNIUM [...] MD HEMATOLOGY ORDERABL ES Performing Organization Address [facility] Co de Phone Number MAXIMO ELYIUM * (ABNORMAL) Prothrombin Time (09/09/2014 5:35 PM EST) Prothrombin Time 16.8(H) 12.5 - 15.5 sec CERNER MILLENNIUM Comment: [facility] Transfusion Committee Guidelines: INR less than [...] intervals supplied above were not validated at [facility]. Results from pediatric patients should be interpreted [...] the following links into your internet browser. [email or web address] Blood specimen (specimen) 09/09/2014 5:35 PM EST 09/09/2014 5:56 PM EST Narrative Resulting Agency Comment Spec In Lab Nick Broussard MD CHEMISTRY ORDERABLE S MAXIMO ELYmobileo * XR chest PA or AP- 1 [...] DAILY, First dose (after last modification) on [place] 09/11/14 at 1500, Until Discontinued, Routine Given [...] Fri09/09/14 at 1628, Until Fri09/09/14 at 1645, [facility]: cabinet override propofol (DIPRIVAN) infusion 9 [...] Fri09/09/14 at 2000, Until Fri09/09/14 at 2057, group home for Trauma or hemodynamically stable, medical [...] JACOB) documented in this encounter Care Teams Dental Treatment Coordinator Relationship Specialty Start Date End Date Cherise Staples MD [address] [place] [address] PCP - General 07/31/10 10/04/19 documented as of this encounter
--- OUTSIDE RECORDS SUMMARY | 2024-08-20 10:56 | XMS_ITS | Encounter Summary ---
[place] [address] Care Team Providers Care Mixer Slagman Name Role Phone Cherise Staples MD Primary Care Provider [phone] Encounter Details Date Type Department Care Team (Late st Contact Info) Description 09/09/2014 [place] [id number] Unknown None Social History Tobacco Use Types [...] * ERCP (09/09/2014 3:02 PM EST) ERCP [facility] Endoscopy Patient Name: Jaime Crouch ? Procedure Date: 09/09/2014 3:02 PM ? Date of : 1945 ? Age: 69 ? Order #: [id number] ? Procedure: ? ERCP Indications: ? Evaluation [...] the procedure well. ? Findings: ? The flame annealing machine operator film was normal and the procedure [...] Procedure Code(s): ?? --- Professional --- ? 17890, Endoscopic retrograde ? cholangiopancreatography (ERCP); with ? sphincterotomy/papillotomy CPT (R) 2012 [employer]. All Rights Reserved. The codes documented in this report are preliminary and upon senior storage administrator review may be revised to meet current compliance requirements. Nick Broussard MD 09/09/2014 4:53 PM This report has been signed electronically. Number of Addenda: 0 Note Initiated On: 09/09/2014 3:02 PM PROVATION 09/09/2014 3:02 PM EST Unknown GENERAL SURGICAL ORD ERABLES Performing Organization Address City/State/[facility] Co de Phone Number PROVATION documented in this encounter Visit Diagnoses Not on filedocumented in this encounter Care Teams Mixer Slagman Relationship Specialty Start Date End Date Cherise Staples MD [address] [place] [address] PCP - General 07/31/10 10/04/19 documented as of this encounter
--- OUTSIDE RECORDS SUMMARY | 2024-08-20 10:56 | XMS_ITS | Encounter Summary ---
Author Organization [facility] [place] [address] Care Team Providers Care Executive Wellness Programs Director Name Role Phone Cherise Staples MD Primary Care Provider [phone] Encounter Details Date Type Department Care Team (Latest Contact Info) Description 06/17/2012 10:52 AM EDT - 06/17/2012 11:59 PM EDT Hospital [place] [address] Nephrolithiasis Social History Tobacco Use Types Packs/Day [...] kidney documented in this encounter Care Teams Executive Wellness Programs Director Relationship Specialty Start Date End Date Cherise Staples MD [address] [place] [address] PCP - General 07/31/10 10/04/19 documented as of this encounter
--- OUTSIDE RECORDS SUMMARY | 2024-08-20 10:56 | XMS_ITS | Encounter Summary ---
Author Organization [facility] [place] [address] Care Team Providers Care Cylinder Steamer Name Role Phone Cherise Staples MD Primary Care Provider [phone] Reason for Visit * Reason Comments Nephrolithiasis Encounter Details Date Type Department Care Team (Late st Contact Info) Description 03/30/2013 11:20 AM EDT [place] [phone] CLINIC, Edyta Hussein Jr., MD [facility] [place] [address] Urolithiasis (Primary Dx) Discharge Disposition: Home Social [...] also noticed phimosis and underwent circumcision in [facility]. He noted postop that he [...] pain. Past medical history: urolithiasis, obesity, CAD ([place] age 52), HTN, h/o gout; atrial fibrillation [...] 01/05/2014 11:16 am) Patient Info ID: ? [id number] ? : [birth year] (68 yrs) Name: ? LAZARO CROUCH ?Visit Date: 01/05/2014 10:54 am Performed By Performed By: ?Rosaura Fournier RDMS Attending: ? Miguel SPIVEY, Ryan Kwon Referred By: ? EDYTA ARAMBULA Service(s) Provided URETRO - Retroperitoneal Complete - [id number] ? [id number] Indications History of kidney stones Comparison Ultrasound: [...] Final 01/05/2014 11:16 am) Patient Info ID: [id number] : [birth year] (68 yrs) Name: LAZARO CROUCH Visit Date: 01/05/2014 10:54 am Performed By Performed By: Rosaura Fournier RDMS Attending: Ryan Rivera MD. Referred By: EDYTA ARAMBULA Service(s) Provided URETRO - Retroperitoneal Complete - [id number] Indications History of kidney stones Comparison Ultrasound: [...] unspecified documented in this encounter Care Teams Cylinder Steamer Relationship Specialty Start Date End Date Cherise Staples MD [address] [place] [address] PCP - General 07/31/10 10/04/19 documented as of this encounter
--- OUTSIDE RECORDS SUMMARY | 2024-08-20 10:56 | XMS_ITS | Encounter Summary ---
[place] [address] Care Team Providers Care Professor Of Physics Name Role Phone Cherise Staples MD Primary Care Provider [phone] Encounter Details Date Type Department Care Team (Latest Contact Info) Description 12/11/2011 10:00 AM EDT - 12/11/2011 11:59 PM EDT Hospital [place] [address] Nephrolithiasis Social History Tobacco Use Types Packs/Day [...] 12/11/2011 11:13 am) Patient Info ID: ? [id number] ? : [birth year] (66 yrs) Name: ? LAZARO CROUCH ?Visit Date: 12/11/2011 10:54 am Performed By Performed By: ?Yareli Perez RDMS Attending: ? Randy SPIVEY, Flex Earl Referred By: ? EDYTA ARANDA Service(s) Provided URETRO - Retroperitoneal Complete - [id number] ? [id number] Indications ?stones Right Kidney Size (cm) ?L: [...] Final 12/11/2011 11:13 am) Patient Info ID: [id number] : [birth year] (66 yrs) Name: LAZARO CROUCH Visit Date: 12/11/2011 10:54 am Performed By Performed By: Yareli Perez Attending: Flex Padilla MD Referred By: EDYTA ARANDA Service(s) Provided URETRO - Retroperitoneal Complete - [id number] Indications ?stones Right Kidney Size (cm) L: [...] kidney documented in this encounter Care Teams Professor Of Physics Relationship Specialty Start Date End Date Cherise Staples MD [address] [place] [address] PCP - General 07/31/10 10/04/19 documented as of this encounter
--- OUTSIDE RECORDS SUMMARY | 2024-08-20 10:56 | XMS_ITS | Encounter Summary ---
Author Organization [facility] Address [facility] [place] [address] Care Team Providers Care Lead Process Engineer Name Role Phone Cherise Staples MD Primary Care Provider [phone] Encounter Details Date Type Department Care Team (Late st Contact Info) Description 09/09/2014 [place] [phone] Carri Messina MD [facility] [place] [address] Social History Tobacco Use Types Packs/Day Years Used Date Smoking Tobacco: Former Smokeless Tobacco: Never Sex and Gender Information Value Date Recorded Sex Assigned at Not on file Gender Identity Not on file Sexual Orientation Not on file documented as of this encounter Miscellaneous Notes * Telephone Encounter - Carri Messina MD - 09/09/2014 10:15 AM EST Received call from [facility] regarding Mr. Crouch 69 yo M with pMH CAD s/p stent, afib on coumadin, HTN,HLP, sleep apnea present to [facility] with RUQ pain, fever found on US [...] on filedocumented in this encounter Care Teams Lead Process Engineer Relationship Specialty Start Date End Date Cherise Staples MD [address] [place] [address] PCP - General 07/31/10 10/04/19 documented as of this encounter
--- OUTSIDE RECORDS SUMMARY | 2024-08-20 10:56 | XMS_ITS | Encounter Summary ---
Author Organization [facility] [place] [address] Care Team Providers Care Ski Tow Operator Name Role Phone Cherise Staples MD Primary Care Provider [phone] Encounter Details Date Type Department Care Team (Late st Contact Info) Description 09/09/2014 Orders [place] [address] Nick Broussard MD [facility] [place] [address] Calculus of bile duct with acute cholecystitis [...] obstruction documented in this encounter Care Teams Ski Tow Operator Relationship Specialty Start Date End Date Cherise Staples MD [address] [place] [address] PCP - General 07/31/10 10/04/19 documented as of this encounter
--- OUTSIDE RECORDS SUMMARY | 2024-08-20 10:56 | XMS_ITS | Encounter Summary ---
Author Organization [place] [address] Care Team Providers Care Waiter/Waitress Tavern Name Role Phone Cherise Staples MD Primary Care Provider [phone] Reason for Visit * Reason Comments Medication Refill Encounter Details Date Type Department Care Team (Late st Contact Info) Description 01/25/2014 [place] [address] Fabricio Aranda Jr., MD [facility] [place] [address] Nephrolithiasis (Primary Dx) Social History Tobacco Use [...] kidney documented in this encounter Care Teams Waiter/Waitress Tavern Relationship Specialty Start Date End Date Cherise Staples MD [address] [place], [place] [address] PCP - General 07/31/10 10/04/19 documented as of this encounter
--- OUTSIDE RECORDS SUMMARY | 2024-08-20 10:56 | XMS_ITS | Encounter Summary ---
Author Organization [facility] [place] [address] Care Team Providers Care Inspection Machine Tender Name Role Phone Cherise Staples MD Primary Care Provider [phone] Reason for Visit * Reason Comments Nephrolithiasis Phimosis Encounter Details Date Type Department Care Team (Late st Contact Info) Description 12/11/2011 11:00 AM EDT [place] [id number] CLINIC, Fabricio Hussein Jr., MD [facility] [place] [address] Nephrolithiasis (Primary Dx); Phimosis Discharge Disposition: Home [...] well. Past medical history: urolithiasis, obesity, CAD ([place] age 52), HTN, h/o gout; atrial fibrillation [...] kidney documented in this encounter Care Teams Inspection Machine Tender Relationship Specialty Start Date End Date Cherise Staples MD [address] [place] [address] PCP - General 07/31/10 10/04/19 documented as of this encounter
--- OUTSIDE RECORDS SUMMARY | 2024-08-20 10:56 | XMS_ITS | Encounter Summary ---
Author Organization [facility] [place] [address] Care Team Providers Care Press Assistant Name Role Phone Cherise Staples MD Primary Care Provider [phone] Reason for Visit * Reason Comments Nephrolithiasis Encounter Details Date Type Department Care Team (Late st Contact Info) Description 01/05/2014 11:20 AM EDT [place] [address] CLINIC, Fabricio Hussein Jr., MD [facility] [place] [address] Urolithiasis (Primary Dx) Discharge Disposition: Home Social [...] also noticed phimosis and underwent circumcision in [facility]. He noted postop that he has [...] urination. Past medical history: urolithiasis, obesity, CAD ([place] age 52), HTN, h/o gout; atrial fibrillation [...] unspecified documented in this encounter Care Teams Press Assistant Relationship Specialty Start Date End Date Cherise Staples MD [address] [place] [address] PCP - General 07/31/10 10/04/19 documented as of this encounter
--- OUTSIDE RECORDS SUMMARY | 2024-08-20 10:57 | XMS_ITS | Encounter Summary ---
Author Organization [facility] [place] [address] Care Team Providers Care Consumer Experience Consultant Name Role Phone Cherise Staples MD Primary Care Provider [phone] Encounter Details Date Type Department Care Team (Late st Contact Info) Description 09/04/2010 10:30 AM EST [place] [address] Fabricio Aranda Jr., MD [facility] [place] [address] Discharge Disposition: Home Social History Tobacco Use [...] on filedocumented in this encounter Care Teams Consumer Experience Consultant Relationship Specialty Start Date End Date Cherise Staples MD [address] [place] [address] PCP - General 07/31/10 10/04/19 documented as of this encounter
--- OUTSIDE RECORDS SUMMARY | 2024-08-20 10:57 | XMS_ITS | Encounter Summary ---
Author Organization [facility] Address [facility] [place] [address] Care Team Providers Care Photographer Apprentice Lithographic Name Role Phone Cherise Staples MD Primary Care Provider [phone] Encounter Details Date Type Department Care Team (Latest Contact Info) Description 09/10/2011 9:10 AM [facility] - 09/10/2011 11:59 PM [facility] Hospital [place] [address] Fabricio Aranda Jr., MD [facility] [place] [address] Nephrolithiasis Discharge Disposition: Home Social History Tobacco [...] ORDERABL ES [facility] documented in this encounter Visit Diagnoses Diagnosis Nephrolithiasis Calculus of kidney documented in this encounter Care Teams Photographer Apprentice Lithographic Relationship Specialty Start Date End Date Cherise Staples MD [address] [place] [address] PCP - General 07/31/10 10/04/19 documented as of this encounter
--- OUTSIDE RECORDS SUMMARY | 2024-08-20 10:57 | XMS_ITS | Encounter Summary ---
Author Organization [facility] [place] [address] Care Team Providers Care Rn Travel Name Role Phone Cherise Staples MD Primary Care Provider [phone] Encounter Details Date Type Department Care Team (Late st Contact Info) Description 11/14/2011 Orders [place] [address] Fabricio Aranda Jr., MD [facility] [place] [address] Calculus of kidney (Primary Dx) Social History [...] Primary documented in this encounter Care Teams Rn Travel Relationship Specialty Start Date End Date Cherise Staples MD [address] [place], [place] [address] PCP - General 07/31/10 10/04/19 documented as of this encounter
--- OUTSIDE RECORDS SUMMARY | 2024-08-20 10:57 | XMS_ITS | Encounter Summary ---
[place] [address] Care Team Providers Care Dimension Warehouse Supervisor Name Role Phone Cherise Staples MD Primary Care Provider [phone] Encounter Details Date Type Department Care Team (Latest Contact Info) Description 09/10/2011 10:00 AM EST - 09/10/2011 11:59 PM EST Hospital En[place] [address] Nephrolithiasis Social History Tobacco Use Types Packs/Day [...] 09/10/2011 11:06 am) Patient Info ID: ? [id number] ? : [birth year] (66 yrs) Name: ? LAZARO CROUCH ?Visit Date: 09/10/2011 10:34 am Performed By Performed By: ?Isabel Mason [facility] Associate: ? Prabha SPIVEY, Nick Attending: ? Lauren SPIVEY, Jane Merchant Referred By: ? EDYTA ARANDA Service(s) Provided URETRO - Retroperitoneal Complete - [id number] ? [id number] Indications History of urolithiasis Comparison Renal and [...] Final 09/10/2011 11:06 am) Patient Info ID: [id number] : [birth year] (66 yrs) Name: LAZARO CROUCH Visit Date: 09/10/2011 10:34 am Performed By Performed By: Isabel Mason [facility] Associate: Nick Armando MD Attending: Jane Aguilar MD Referred By: EDYTA ARANDA Service(s) Provided URETRO - Retroperitoneal Complete - [id number] Indications History of urolithiasis Comparison Renal and [...] kidney documented in this encounter Care Teams Dimension Warehouse Supervisor Relationship Specialty Start Date End Date Cherise Staples MD [address] [place] [address] PCP - General 07/31/10 10/04/19 documented as of this encounter
--- OUTSIDE RECORDS SUMMARY | 2024-08-20 10:57 | XMS_ITS | Encounter Summary ---
Author Organization [facility] Address [facility] [place] [address] Care Team Providers Care Kitchen Helper Name Role Phone Cherise Staples MD Primary Care Provider [phone] Reason for Visit * Reason Onset Date Comments Questions 11/28/2011 Encounter Details Date Type Department Care Team (Late st Contact Info) Description 11/28/2011 [place] [address] Fabricio Aranda Jr., MD [facility] [place] [address] Questions Social History Tobacco Use Types Packs/Day [...] soon. He is able to [facility] get his Potassium drawn andwill go early next week to have this done. To have results faxed to Dr. Aranda. documented in this encounter Plan of Treatment Not on file documented as of this encounter Visit Diagnoses Not on filedocumented in this encounter Care Teams Kitchen Helper Relationship Specialty Start Date End Date Cherise Staples MD [address] [place] [address] PCP - General 07/31/10 10/04/19 documented as of this encounter
--- OUTSIDE RECORDS SUMMARY | 2024-08-20 10:57 | XMS_ITS | Encounter Summary ---
Author Organization [facility] [place] [address] Care Team Providers Care Hospital Receiving Clerk Name Role Phone Cherise Staples MD Primary Care Provider [phone] Encounter Details Date Type Department Care Team (Late st Contact Info) Description 01/22/2011 [place] [address] Edyta Arambula Jr., MD [facility] [place] [address] Nephrolithiasis (Primary Dx) Social History Tobacco Use [...] 09/10/2011 11:06 am) Patient Info ID: ? [id number] ? : ??[birth year] (66 yrs) Name: ? LAZARO CROUCH ?Visit Date: 09/10/2011 10:34 am Performed By Performed By: ?Isabel Mason [facility] Associate: ? Nick Armando MD Attending: ? Lauren SPIVEY, Jane Merchant Referred By: ? EDYTA ARAMBULA Service(s) Provided URETRO - Retroperitoneal Complete - [id number] ? [id number] Indications History of urolithiasis Comparison Renal and [...] Final 09/10/2011 11:06 am) Patient Info ID: [id number] : [birth year] (66 yrs) Name: LAZARO CROUCH Visit Date: 09/10/2011 10:34 am Performed By Performed By: Isabel aMson [facility] Associate: Nick Armando MD Attending: Jane Aguilar MD Referred By: EDYTA ARAMBULA Service(s) Provided URETRO - Retroperitoneal Complete - [id number] Indications History of urolithiasis Comparison Renal and [...] kidney documented in this encounter Care Teams Hospital Receiving Clerk Relationship Specialty Start Date End Date Cherise Staples MD [address] [place] [id number] PCP - General 07/31/10 10/04/19 documented as of this encounter
--- OUTSIDE RECORDS SUMMARY | 2024-08-20 10:57 | XMS_ITS | Encounter Summary ---
Author Organization [facility] [place] [address] Care Team Providers Care Dedicated Local Truck Driver Name Role Phone Cherise Staples MD Primary Care Provider [phone] Reason for Visit * Reason Comments Nephrolithiasis Encounter Details Date Type Department Care Team (Late st Contact Info) Description 09/10/2011 11:00 AM EST [place] [address] CLINIC, Edyta Hussein Jr., MD [facility] [address] Nephrolithiasis (Primary Dx) Discharge Disposition: Home Social [...] well. Past medical history: urolithiasis, obesity, CAD (MD [...] lower pole.. Prior laboratory studies: LAB RESULTS: [id number] LAZARO CROUCH Potassium Level Creatinine Calcium Level [...] 12/11/2011 11:13 am) Patient Info ID: ? [id number] ? : ??[birth year] (66 yrs) Name: ? LAZARO CROUCH ?Visit Date: 12/11/2011 10:54 am Performed By Performed By: ?Yareli Perez RDMS Attending: ? Flex Padilla MD Referred By: ? EDYTA ARAMBULA Service(s) Provided URETRO - Retroperitoneal Complete - [id number] ? [id number] Indications ?stones Right Kidney Size (cm) ?L: [...] Final 12/11/2011 11:13 am) Patient Info ID: [id number] : [birth year] (66 yrs) Name: LAZARO CROUCH Visit Date: 12/11/2011 10:54 am Performed By Performed By: Yareli Perez [facility] Attending: Flex Padilla MD. Referred By: EDYTA ARAMBULA Service(s) Provided URETRO - Retroperitoneal Complete - [id number] Indications ?stones Right Kidney Size (cm) L: [...] kidney documented in this encounter Care Teams Dedicated Local Truck Driver Relationship Specialty Start Date End Date Cherise Staples MD [address] [place] [address] PCP - General 07/31/10 10/04/19 documented as of this encounter
--- OUTSIDE RECORDS SUMMARY | 2024-08-20 10:57 | XMS_ITS | Encounter Summary ---
[place] [address] Care Team Providers Care Lighting Director Name Role Phone Cherise Stapels MD Primary Care Provider [phone] Encounter Details Date Type Department Care Team (Late st Contact Info) Description 09/04/2010 10:00 AM EST Procedure visit [place] [address] Social History Tobacco Use Types Packs/Day Years Used Date Smoking Tobacco: Never Assessed Sex and Gender Information Value Date Recorded Sex Assigned at Not on file Gender Identity Not on file Sexual Orientation Not on file documented as of this encounter Plan of Treatment Not on file documented as of this encounter Visit Diagnoses Not on filedocumented in this encounter Care Teams Lighting Director Relationship Specialty Start Date End Date Cherise Staples MD [address] [place] [address] PCP - General 07/31/10 10/04/19 documented as of this encounter
--- OUTSIDE RECORDS SUMMARY | 2024-08-20 10:57 | XMS_ITS | Encounter Summary ---
Author Organization [facility] [place] [address] Care Team Providers Care Target Setter Name Role Phone Nick Nettles MD Primary Care Provider [phone] Encounter Details Date Type Department Care Team (Late st Contact Info) Description 04/26/2009 [place] [address] Fabricio Aranda Jr., MD [facility] [address] Social History Tobacco Use Types Packs/Day Years [...] 5:19 PM EDT) Surgical Pathology Report - [id number] ? Location: 2WST; [facility]; A The signing pathologist has (i) examined [...] Description: ?? Fragmented yellow calculi. Sections/Process: ? Manager Sales portion is submitted for chemical ?analysis. ? [...] The Report of Stone Analysis, order # [id number], has been received from the [facility], [address] [place] [address] Dr. [place], [place] ??[address]. For the full text of the Fowler report please refer to Non- Documentation Pathology in the Clinical Information System (CIS). MAXIMO NERI 04/26/2009 5:19 PM EDT Fabricio Aranda Jr., MD PATHOLOGY/CYTOLOGY ORDERABLES MAXIMO NERI documented in this encounter Visit Diagnoses Not on filedocumented in this encounter Care Teams Target Setter Relationship Specialty Start Date End Date Nick Nettles MD [address] [place] [address] PCP - General Internal Medicine 10/05/19 documented as of this encounter
--- OUTSIDE RECORDS SUMMARY | 2024-08-20 10:57 | XMS_ITS | Encounter Summary ---
Author Organization [facility] [place] [address] Care Team Providers Care Wedding Makeup Artist Name Role Phone Cherise Staples MD Primary Care Provider [phone] Reason for Visit * Reason Comments Medication Refill Encounter Details Date Type Department Care Team (Late st Contact Info) Description 11/11/2011 [place] [address] Fabricio Aranda Jr., MD [facility] [place] [address] Social History Tobacco Use Types Packs/Day Years [...] on filedocumented in this encounter Care Teams Wedding Makeup Artist Relationship Specialty Start Date End Date Cherise Staples MD [address] [place] [address] PCP - General 07/31/10 10/04/19 documented as of this encounter
--- OUTSIDE RECORDS SUMMARY | 2024-08-20 10:57 | XMS_ITS | Encounter Summary ---
Author Organization [facility] [place] [address] Care Team Providers Care Linen Supervisor Name Role Phone Cherise Stalpes MD Primary Care Provider [phone] Reason for Visit * Reason Onset Date Comments Results 09/11/2011 Encounter Details Date Type Department Care Team (Late st Contact Info) Description 09/11/2011 Telephone [place] [address] Fabricio Aranda Jr., MD [facility] [place] [address] Results Social History Tobacco Use Types Packs/Day [...] on filedocumented in this encounter Care Teams Linen Supervisor Relationship Specialty Start Date End Date Cherise Staples MD [address] [place] [address] PCP - General 07/31/10 10/04/19 documented as of this encounter
--- NOTE | 2024-08-20 11:17 | PHA.REVIEW2 ---
Pharmacy Admission Review Admission Clinical Review Admission Pharmacy Review: Elevation of levels of liver transaminase levels (Acute) COVID-19 (Acute) Acute exacerbation of CHF (congestive heart failure) (Acute) metformin Adverse Reaction (Verified 08/20/24 06:00) DIARRHEA Resuscitation Status Full Code Height 5 ft 10 in Weight 131.315 kg Pharmacy Admission Review Renal Dosing Renal Dosing: BUN 21 mg/dL (7-18) H 08/20/24 06:00 Creatinine 0.9 mg/dL (0.70-1.30) 08/20/24 06:00 Medications needing adjustments: Reviewed (CrCl 85.62 mL/min) List of meds needing interventions: Current medications are okay Anticoagulation Anticoagulation: Hgb 16.2 g/dL (13.5-17.5) 08/20/24 06:00 Hct 49.5 % (40.0-50.0) 08/20/24 06:00 Plt Count 290 10^3/uL (130-400) 08/20/24 06:00 Creatinine 0.9 mg/dL (0.70-1.30) 08/20/24 06:00 DVT Prophylaxis: Intervened (changed timing from 0830 to 1700 per pharmacy protocol) Medications: Rivaroxaban (20mg daily) Relevant Labs Relevant Labs: Sodium 140 mmol/L (136-145) 08/20/24 06:00 Potassium 4.0 mmol/L (3.5-5.1) 08/20/24 06:00 Chloride 104 mmol/L (98-107) 08/20/24 06:00 Magnesium 1.8 mg/dL (1.8-2.4) 08/20/24 06:00 Electrolytes, C-Reactive P, ESR: Reviewed (glucose 148 at 0600) Cardiac Review Cardiac Review: Troponin I 41 ng/L (<or=76) 08/20/24 06:00 NT-Pro-B Natriuret Pep 2429 pg/mL (<300) H 08/20/24 06:00 BP, HR, EF%: Reviewed (HR and BP WNL) List meds needing interventions: Has order for furosemide 20mg IVP daily, isosorbide dinitrate 30mg BID, lisinopril 20mg daily and metoprolol XL 200mg daily QTc Review QTc: Reviewed (451 from 08/20/24) IV to PO Switch IV Medications: Reviewed (furosemide and remdesivir) Home Meds Home Med List reviewed: Intervened Relevent Home Meds Not ordered & why?: Nitroglycerin (PRN) and Paxlovid (has order for remdesivir) Updated home med list Changed isosorbide mononitrate to dinitrate based on external fill history. I changed the order to match, provider is aware. Order currently pending for tirzepatide. Asked nursing to check with patient when it is due and if it can be brought in. Waiting to hear back. Current Meds Current Medication Order Review: Intervened Comments: Patient is currently on day 1 of remdesivir for COVID 19 - will complete therapy on 08/24 Added IV admission order set Changed timing of Xarelto from 0830 to 1700 per pharmacy protocol
--- NOTE | 2024-08-20 13:55 | W.PC.ACHO ---
Registration Status: Primary Language: Preferred Language: ED Information & Data Chief Complaint GenMedical 08/20/24 06:32 Triage Note JENNIFER, was stuck on commode 08/20/24 05:51 since 1999 last night. states that he is weak in his legs. Covid +, incidental finding. EMS states that this is his baseline. Pt does use a walker and wheelchair in his residence. Pt states that he cannot feel his legs. lower leg swelling at baseline. wants him to get checked out incase weakness is from covid. Medical / Surgical History (Last Reviewed 08/20/24 @ 13:37 by Emmanuel Begum) Body mass index (BMI) 50.0-59.9, adult Venous stasis ulcer of left lower extremity HNP (herniated nucleus pulposus), lumbar Relative polycythemia Failed total hip arthroplasty Heart failure with preserved ejection fraction CAD (coronary artery disease) Cholangitis Nephrolithiasis Phimosis Pulmonary embolism Hx of pulmonary artery thrombosis Venous stasis ulcer of ankle limited to breakdown of skin without varicose veins Anticoagulant long-term use Atrial fibrillation (Last Reviewed 08/20/24 @ 13:37 by Emmanuel Begum) H/O bilateral hip replacements Most Recent Vital Signs Temperature 36.1 C L 08/20/24 11:17 Pulse 67 08/20/24 11:17 Pulse Rhythm Irregular 08/20/24 11:17 Pulse 77 08/20/24 10:01 Respiratory Rate 16 08/20/24 11:17 Respiratory Effort Normal 08/20/24 11:17 Respiratory Depth Normal 08/20/24 11:17 Respiratory Pattern Apnea 08/20/24 11:17 Blood Pressure 129/80 08/20/24 11:17 Blood Pressure Mean 86 08/20/24 10:01 Pulse Oximetry 98 08/20/24 11:17 Oxygen Delivery Method Nasal Cannula 08/20/24 11:17 Oxygen Flow Rate 2 08/20/24 11:17 Pain Level 0 08/20/24 11:17 Allergies metformin Adverse Reaction (Verified 08/20/24 06:00) DIARRHEA Precautions Isolation Standard precaution 08/20/24 05:57 IV IV Catheter Type [Right Peripheral IV Forearm] IV Catheter Gauge [Right 18 Forearm] Diet Orders Category Date Time Status Diabetes Consistent CHO/Heart Healthy [DIET] Nutrition 08/20/24 Lunch Active Diagnostics 08/20/24 08/20/24 Range/Units 08:07 06:00 WBC 10.28 (4.4-10.8) 10^3/uL RBC 5.08 (4.36-5.78) 10^6/uL Hgb 16.2 (13.5-17.5) g/dL Hct 49.5 (40.0-50.0) % MCV 97 H (80-95) fL MCH 31.9 (27.0-33.0) pg MCHC 32.7 (32.0-36.0) % RDW 14.1 (11.8-14.1) % Plt Count 290 (130-400) 10^3/uL MPV 9.3 (8.0-11.0) fL Immature Gran % 0.5 % Neutrophils % 86.4 % Lymphocytes % 3.4 % Monocytes % 9.0 % Eosinophils % 0.1 % Basophils % 0.6 % Nucleated RBC % 0.0 (0.0-0.3) % Absolute Neutrophils 8.88 H (1.2-6.7) 10^3/uL Absolute Lymphocytes 0.35 L (1.2-3.4) 10^3/uL Absolute Monocytes 0.93 H (0.1-0.8) 10^3/uL Absolute Eosinophils 0.01 (0.0-0.7) 10^3/uL Absolute Basophils 0.06 (0.0-0.2) 10^3/uL Sodium 140 (136-145) mmol/L Potassium 4.0 (3.5-5.1) mmol/L Chloride 104 (98-107) mmol/L Carbon Dioxide 24.2 (21.0-32.0) mmol/L Anion Gap 11.8 H (3-11) mmol/L BUN 21 H (7-18) mg/dL Creatinine 0.9 (0.70-1.30) mg/dL Est GFR (CKD-EPI 2020) 88.51 (mL/min/1.73m2) Glucose 148 H (74-106) mg/dL Calcium 9.6 (8.5-10.1) mg/dL Magnesium 1.8 (1.8-2.4) mg/dL Total Bilirubin 0.83 (0.2-1.0) mg/dL AST 40 H (15-37) U/L ALT 44 (16-63) U/L Alkaline Phosphatase 148 H (46-116) U/L Creatine Kinase 166 (39-308) U/L Troponin I 41 (<or=76) ng/L NT-Pro-B Natriuret Pep 2429 H (<300) pg/mL Total Protein 7.5 (6.4-8.2) g/dL Albumin 3.4 (3.4-5.0) g/dL Urine Color Yellow (Yellow) Urine Clarity Clear (Clear) Urine pH 5.5 (5-8) Ur Specific [place] 1.020 (1.005-1.025) Urine Protein >=300 H (Neg-Trace) mg/dL Urine Ketones Negative (Negative) mg/dL Urine Blood Negative (Negative) Urine Nitrite Negative (Negative) Urine Bilirubin Negative (Negative) Urine Urobilinogen 1.0 H (Up to 0.2) mg/dL Ur Leukocyte Esterase Negative (Negative) Urine RBC 0-2 (0-2) HPF Urine WBC 0-2 (0-5) HPF Ur Epithelial Cells Rare (Negative) HPF Urine Crystals Negative (Negative) HPF Urine Bacteria Rare (Negative) HPF Urine Casts 0-2 Hyaline (Negative) LPF Urine Mucus Moderate (Negative) Ur Culture Indicated? No Urine Glucose Negative (Negative) mg/dL COVID-19 Source Nasal/Nares SARS-CoV-2 (PCR) POSITIVE A* (Negative) Intake and Output - 24 Hour Total 08/20/24 05:44 thru 08/20/24 12:51 Intake Total 120 Output Total 800 Balance -680 Weight 126.961 kg Intake: IV 120 Output: Urine 800 Other: Urine Color Straw Urine Appearance Clear Comment assisted by EDWARD Borrego Urinary Catheter Urinary Catheter Date of 08/20/24 Insertion [Urethral (Haque)] Time of insertion [Urethral ( 09:00 Haque)] Falls Risk Assessment History of Falls Previous History 08/20/24 11:17 Contributing Factors Impairments,Incontinence, 08/20/24 11:17 Medications Ambulatory Aids Uses ambulatory device + 08/20/24 11:17 Tubes/Lines With any additional score 08/20/24 11:17 Gait Evaluation W/any additional score 08/20/24 11:17 Cognition No cognitive impairment 08/20/24 11:17 Fall Total Score 94 08/20/24 11:17 Level of Risk Maximum Risk 12/13/24 11:17 Problems (Last Reviewed 08/20/24 @ 13:37 by Emmanuel Begum) Elevation of levels of liver transaminase levels (Acute) COVID-19 (Acute) Acute exacerbation of CHF (congestive heart failure) (Acute) Type 2 diabetes mellitus without complications (Chronic) CAD (coronary artery disease) (Chronic) Personal history of pulmonary embolism (Chronic) Hypertension (Chronic) v v v v v v v v v Sending and/or Receiving Nurses: Please use comment section below to note any information pertinent to the patient hand-off not included above. Information / Comments: Vitals: BP 123/74, HR 75, Resp 16, SaO2 95% RA. Patient desats when asleep r/t TOM. Haque in place emptied for 800mL. Blister LLE and yeast infection in folds in groin area. Heart rate afib at baseline. Patient on telemetry. BLE and decreased blood flow. Lasix 20mg IVP given at 06:00. Patient arrived via EMS to [facility] ED for BLE weakness and then tested positive for Covid. currently diagnosed with Covid. Being treated with Remdesivir and new bag will be hung prior to arrival to med/surg. Full Code status. Tylenol given in ED. Patient ambulates at baseline from bed to chair to commode. EMS had to assist patient off the commode upon arrival to the patients home as he was unable to get up after his legs were to weak to support mobility. Report received from: Report received @ 10:25 from JACOB Resendiz (ED RN).
[2024-08-20] MEDS: Normal Saline Flush 10 ML SYR IVP ×2 (14:20→20:27)
--- NOTE | 2024-08-20 15:09 | PT.INTREAT ---
PT Notes Visit Reasons: CHF,COVID,WEAKNESS Date: 08/20/2024 PRECAUTIONS: Fall. Activity as tolerated. [place] PRECAUTIONS FOR COVID-[address]. SUBJECTIVE: Pt in bed when approached for therapy this afternoon, pt initially apprehensive to participate with bed transfers training reporting he is not strong enough. pt eventually agreed after a little bit of encouragement. pt has blisters on the left leg OBJECTIVE: ? PAIN: denies VITALS: monitored by nursing Therapeutic Activities 91388: Direct one-on-one instruction in dynamic activities to improve functional performance. ?? BED MOBILITY/TRANSFERS? Rolling L/R: mod A Supine-sit: ?mod A? Sit-supine: ?mod A ? Sit-stand: ?mod A? Stand-sit: ??mod A ? Bed to weighing scale:? min A ? Weighing scale to bed: min A Bed-commode: mod A Commode-bed: mod A Provided skilled cues and instruction on performance and technique throughout. Gait Training 99439: Direct one-on-one instruction and skilled instruction in: Employing an assistive device Modified weight-bearing status Movement sequencing Turning and movement with proper form Provided verbal cues for equipment management and technique Provided instruction in gait pattern Patient education regarding pacing and breathing techniques to maximize activity tolerance? GAIT? Assistive Device: ?FWW ? Weight bearing: FWB Assist: ?min A ? Distance:??1st 1step, 2nd 4steps, 3rd 4steps? Deviation: ?WBOS, heavy reliance on BUE, festinating gait, stoop forward posture ? ASSESSMENT:?Pt able to do a BM on the commode, pt able to stand staic for perineal care, blister on the left leg bursted during transition and was able to stay upright for nurse to wrap bandage around broken blister. Nurse Maria Esther present at beginning up to the end of session. PLAN: Continue with balance training, global strengthening and general conditioning for improved safety, mobility and activity tolerance until pt is ready for DC. TREATMENT CODE/TIME: [id number] 60mins (2:10-3:10pm)
--- NOTE | 2024-08-20 15:46 | INITIAL_ITS ---
Date of service: 08/20/24 Time of Service: 15:46 Care Management Initial Assmt Initial Assessment Reason for Hospitalization: Covid Functional Status/Living Situation Patient Presentation: Jaime has covid and is being monitored and treated with remdisivir. He has chronic ambulatory issues, and independently transfers himself from his wheelchair to the commode, couch or bed etc. at baseline. Leah reports to that she was out of town last week and feels may contribute to his weakness. 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) Instrumental Activities of Daily Living (ADLs): Requires support (requires some assistance with bathing and dressing which Leah provides) Medications Medication Management: No Issues/Barriers identified Physical Functioning/Mobility Assistive Device: wheelchair bound, also walker Advance Directives Advance Directives: Do you have an Advance Directive: Y 02/25/24 00:50 AD On File at [facility]: Y 02/25/24 00:50 Date Asked AD Date Reviewed 08/20/24 08/20/24 10:48 COLST On File at [facility] Yes 02/24/24 19:55 COLST Date Scanned 03/21/23 02/24/24 19:55 Code Status Resuscitation Status Full Code Portal Pt does not currently have a portal and education provided: Yes Insurance Coverage/Financial Issues Insurance: Medicare BC/BS Financial Issues: None identified Care Team Visit Care Team Role Provider Type Ginette Villavicencio Primary Care Provider NON-[facility] STAFF PHYSICIAN InPatient Indio Derian Other Providers OTHER Adrien Cazares DO Emergency Provider [facility] STAFF PHYSICIAN Emmanuel Begum Admit Provider [facility] STAFF PHYSICIAN Attending Provider Discharge Potential Discharge Needs: PCP F/U Appt Anticipated Barriers to Discharge: Medical Status Patient/Family Education Needs: Review discharge instructions, discuss Ask Me Three Transportation: Private vehicle Plan: PT Recommends: Short-term rehab vs HH PT based on patient's progress towards goals. Qualifying stay will be needed to d/c to [facility]. Anticipate Jaime will discharge home with resumption of [facility] RN (wound care), add PT/OT/[employer]. Transportation will be coordinated with [facility], pt will need a W/C van. PFSH All Active Problems (Updated 08/20/24 @ 13:46 by Emmanuel Begum) Elevation of levels of liver transaminase levels (Acute) COVID-19 (Acute) Acute exacerbation of CHF (congestive heart failure) (Acute) Generalized weakness (Acute) Shoulder pain (Acute) Edema of lower extremity (Acute) Pressure sore on buttocks (Acute) At high risk for skin breakdown (Acute) Bilateral leg weakness (Acute) Weight loss due to medication (Acute) Chest pain (Acute) Physician orders for life-sustaining treatment (POLST) form indicates patient wish for [id number] status (Acute) Advance care planning (Acute) Palliative care patient (Acute) HFrEF (heart failure with reduced ejection fraction) (Chronic) Ambulatory dysfunction (Acute) Bilateral leg weakness (Acute) Lumbago (Chronic) Non compliance with medical treatment (Acute) Trochanteric bursitis, left hip (Acute) H/O surgical procedure (Chronic) a. Bilateral hip replacement b. Nephrolithotomy c. Right ureteral stent placement d. Coronary artery stent placement 2006 e. Adult circumcision f. Colonoscopy 11/2013 History of revision of total replacement of left hip joint (Acute 11/01/20) Acetabular revision with head/liner exchange for fractured femoral head prosthesis. Pure hypercholesterolemia, unspecified (Acute) Cerumen impaction (Acute) Type 2 diabetes mellitus without complications (Chronic) Neoplasm of unspecified behavior of bone, soft tissue, and skin (Acute) Nasal dryness (Acute) Acute cholecystitis (Acute 09/07/14) Morbid obesity (Chronic) CAD (coronary artery disease) (Chronic) a. coronary artery stent placement 2006 Personal history of pulmonary embolism (Chronic) Hypertension (Chronic) TOM (obstructive sleep apnea) (Chronic) Personal history of kidney stones (Chronic) a. uric acid stones Venous stasis ulcer (Chronic) Venous (peripheral) insufficiency (Chronic) Medical History Venous stasis ulcer of left lower extremity HNP (herniated nucleus pulposus), lumbar Relative polycythemia Failed total hip arthroplasty Heart failure with preserved ejection fraction CAD (coronary artery disease) Cholangitis Nephrolithiasis Phimosis Pulmonary embolism Hx of pulmonary artery thrombosis Venous stasis ulcer of ankle limited to breakdown of skin without varicose veins Body mass index (BMI) 50.0-59.9, adult Anticoagulant long-term use Atrial fibrillation Surgical History H/O bilateral hip replacements Social History Smoking/Tobacco Use Status: Former Tobacco Use Smoking risk assessment performed?: Yes Alcohol Intake: never Drug use: Never Substance use type: does not use Household members: spouse Housing: house What is your relationship status?: Panel score (0-1 are the most socially isolated patients): 1 Do you feel safe at home: Yes Do you feel safe in your relationship?: Yes SDOH(Care Management) Screening Will the Patient Participate in the Screening?: Yes Do you worry about having a steady place to live?: no Problems where you live: no known problems In the past 12 months, have you had to go without electric, gas, oil or water in your home?: no Have you or anyone in your house had to go without enough food to eat?: no Has lack of transportation kept you from medical appointments or from doing things needed for daily living?: no Has anyone in your support network made you feel unsafe for any reason?: no Health Related Social Needs Health related social needs details: Transportation is RCT
[2024-08-20] MEDS: Rivaroxaban 10 MG TABLET 20 MG PO (17:47)
[2024-08-20] MEDS: Acetaminophen 325 MG TAB PO (17:47)
[2024-08-20] MEDS: Isosorbide Dinitrate 10 MG TAB 30 MG PO (20:27)
[2024-08-20] MEDS: Potassium Citrate 1080 MG TABCR 2160 MG PO (20:27)
[2024-08-20] MEDS: Nystatin POWDER 15 GM JAR TP (20:45)
[2024-08-21] VITALS (9 sets, daily range): BP systolic 107–134; BP diastolic 57–75; PULSE 67–86; RESP 14–20; TEMP 36.3–36.8; O2SAT 95–99
[2024-08-21] MEDS: Acetaminophen 325 MG TAB PO ×3 (03:58→20:39)
[2024-08-21 07:11] LABS: ALT 33 U/L (16-63); AST 34 U/L (15-37); Albumin 2.8 g/dL (3.4-5.0); Alkaline Phosphatase 115 U/L (46-116); Anion Gap 7.6 mmol/L (3-11); BUN 28 mg/dL (7-18); Bilirubin, Total 0.63 mg/dL (0.2-1.0); CO2 26.4 mmol/L (21.0-32.0); CREATININE 0.9 mg/dL (0.70-1.30); Calcium 9.2 mg/dL (8.5-10.1); Chloride 110 mmol/L (98-107); Estimated GFR 88.51 (mL/min/1.73m2); Glucose 106 mg/dL (74-106); Potassium 3.8 mmol/L (3.5-5.1); Sodium 144 mmol/L (136-145); Total Protein 6.3 g/dL (6.4-8.2)
[2024-08-21] MEDS: Furosemide 20 MG/2 ML VIAL IVP (08:39)
[2024-08-21] MEDS: Allopurinol 300 MG TAB PO (08:45)
[2024-08-21] MEDS: Potassium Citrate 1080 MG TABCR 2160 MG PO ×2 (08:46→20:39)
[2024-08-21] MEDS: Cholecalciferol (Vitamin D3) 1,000 UNIT TAB 5000 UNITS PO (08:46)
[2024-08-21] MEDS: Metoprolol CR 100 MG TABCR 200 MG PO (08:47)
[2024-08-21] MEDS: Ezetimibe 10 MG TAB PO (08:47)
[2024-08-21] MEDS: Lisinopril 20 MG TAB PO (08:47)
[2024-08-21] MEDS: Isosorbide Dinitrate 10 MG TAB 30 MG PO ×2 (08:47→20:39)
[2024-08-21] MEDS: Normal Saline Flush 10 ML SYR IVP ×2 (08:50→20:39)
[2024-08-21] MEDS: Nystatin POWDER 15 GM JAR TP ×3 (09:50→20:38)
--- NOTE | 2024-08-21 12:46 | W.PM.PROGNOT ---
Date of Service Date of service: 08/21/24 Time of Service: 12:46 Assessment and Plan Assessment and plan (1) COVID-19: Status: Acute Assessment and plan: Likely major contributor to weakness. No hypoxia. He is high risk, Treating with remdesavir and he is improving. Plan to give those 3 doses prior to discharge, likely tomorrow. (2) Acute exacerbation of CHF (congestive heart failure): Status: Acute Assessment and plan: Mild HF exacerbation with elevated BNaP, s/p furosemide x 1 in ED. Will continue daily 20mg IV for now, monitor renal status. Weight is down reflecting some diuresis. (3) Hypertension: Status: Chronic Assessment and plan: BP stable, continue outpatient medications. (4) Personal history of pulmonary embolism: Status: Chronic Assessment and plan: Continue rivaroxaban. (5) CAD (coronary artery disease): Status: Chronic Assessment and plan: continue outpatient isosorbide, ezetimibe. Statin intolerant. On DOAC, no platelet medication. (6) Atrial fibrillation: Assessment and plan: On DOAC, metoprolol for rate control. (7) Type 2 diabetes mellitus without complications: Status: Chronic Assessment and plan: He clearly has DM with A1c up to 8.8% and >7% for over a year, though now in remission ranges on tirzepatide. Continue outpatient tirzepatide if he brings it in. I am okay with no strict CHO consistent diet. (8) Elevation of levels of liver transaminase levels: Status: Acute Assessment and plan: Not chronic. No EtOH. Possibly hepatic congestion, improving (9) Venous stasis ulcer: Status: Chronic Assessment and plan: wound care, compression if he tolerates it. Subjective Subjective Patient reports: no new complaints, feels better and tolerating a regular diet; denies nausea, vomiting or fever Interval history since last seen: He was up with PT today, feels better, more energy, but still not at his baseline per patient, doesn't feel comfortable going home. Breathing is okay, stool a little loose but no diarrhea. He has been sleeping better without his CPAP at home, though he does have it here. Exam Narrative Exam Narrative: GEN: Alert, oriented x 4, pleasant and cooperative, much more clear in thought process. No acute distress at rest, pulls himself up to sit with bed rails. HEENT: no rhinorrhea. MMM LUNGS: CTAB, normal effort CV: Irregularly irregular, normal rate, with no murmurs, gallops, or rubs. ABD: active bowel sounds, soft, nontender and nondistended. No masses. EXT: no cyanosis, clubbing, warm. 2+ jerod firm edema in legs with hyperpigmentation SKIN: No rashes other than redness on lower extremities, wounds dressed Objective Last Vital Signs Temp 36.5 C 08/21/24 06:58 Pulse 86 08/21/24 06:58 Resp 16 08/21/24 06:58 BP 110/65 08/21/24 06:58 Pulse Ox 96 08/21/24 11:18 Laboratory Results - last 24 hr 08/21/24 06:40 Sodium 144 Potassium 3.8 Chloride 110 H Carbon Dioxide 26.4 Anion Gap 7.6 BUN 28 H Creatinine 0.9 Est GFR (CKD-EPI 2020) 88.51 Glucose 106 Calcium 9.2 Total Bilirubin 0.63 AST 34 ALT 33 Alkaline Phosphatase 115 Total Protein 6.3 L Albumin 2.8 L Time Spent with Patient Time Spent with Patient: 35-49 minutes Time was spent: preparing to see the patient(eg.review tests), obtaining and/or reviewing separately otained hiistory, ordering medications,tests, procedures, referring, communicating with other health career resource specialist, indepentently interpreting results, counseling the patient and care coordination
--- NOTE | 2024-08-21 13:46 | PT.INTREAT ---
Date of service: 08/21/24 Time of Service: 10:45 PT Notes Visit Reasons: CHF,COVID,WEAKNESS Inpatient Physical Therapy Treatment Note [facility] Date: 08/21/2024 PRECAUTIONS: Fall, Activities as tolerated, Airborne Precautions for Covid SUBJECTIVE: Patient indicated he wanted to have chair brought up tight to bed when performing transfers, but indicated to patient that he is in hospital to get stronger and improve functional mobility so he needs to try to walk with walker. He did agree to perform ambulation recliner to commode and commode to bed. OBJECTIVE: ? PAIN: No specific complaints of pain VITALS: Telemetry removed by nursing during treatment. ? Therapeutic Activities (73437a5): Direct one-on-one instruction in dynamic activities to improve functional performance. ?? Patient was up in recliner up on my arrival to room this am. All activities performed with patient's nurse in room. ? BED MOBILITY/TRANSFERS? Rolling L/R: SBA? Sit-supine: Slight assist with lifting legs onto bed. Stated he usually uses a leg lift device at home to help with this. ? Sit-stand: Mod assist of one, verbal cueing for pushing up off chair.? Stand-sit: CGA, verbal cueing for safety ? Bed-Chair: CGA ? Chair-bed: CGA Provided skilled cues and instruction on performance and technique throughout. GAIT? Assistive Device: FWW ? Weight bearing: Full Assist: CGA, once up in standing. Did have nurse standing by.? Distance:??4ft recliner to commode and 2ft side stepping commode to edge of bed ? Deviation: Slow pace with shortened step length and decreased step height ? Did have BM while on commode and nurse Berna performed cleansing post BM. Patient was able to stand for several minutes while being cleaned. ? Therapeutic Exercises (27852r6): Direct one-on-one instruction in therapeutic exercises to develop strength, endurance, range of motion and flexibility. ? Exercises ? Worked sitting balance at edge of bed where he was able to perform LAQs x 15 reps, seated hip abd/adduction against manual resistance x 15 reps, ankle dorsiflexion x 15 reps, seated heel raises x 15 reps, as well as supine UE flexion from neutral to 90 degrees and bilateral UE shoulder horizontal abd/adduction x 10 reps each. Provided skilled instruction in proper exercise performance Provided skilled manual cues to facilitate proper muscle recruitment and/or form ASSESSMENT:? Tolerated today's session well with good effort given. Would like to incorporate t-band resistance with exercises tomorrow if willing. PLAN: Continue to focus on improved mobility for better ADL function. Needs to gain confidence with sit to stand and transfers. TREATMENT CODE/TIME: 62160 and 74902, 10:45 to 11:20 (35')
--- NOTE | 2024-08-21 14:21 | WOUNDCONS_ITS ---
Date of service: 08/21/24 Time of Service: 14:21 Wound Initial Evaluation Narrative Narrative: Pt is a 78 year old who was admitted for leg weakness, Covid positive, with CHF. He has a history of HTN, A FIB, PE being treated with rixaroxaban, CAD, DM, and has had bilateral hip replacements. From a respiratory standpoint, he is on room air, sats are stable, lungs reported as clear to auscultate. Regarding his lower extremities, he has 2+ edema on the right and 3+ edema on the left. He has significant hemosiderin staining of bilateral lower extremities indicating PVD. He also has an old bruise covering the right knee in which he states he fell recently. He is currently able to lift both legs off the bed surface with minimal assistance. He did develop fluid filled blisters on both legs that have since burst. Body Four View: 2 1. Right lateral malleolus 2. Left medial malleolus 3. Left medial lower leg Wound Right lateral malleolus: Wound Type: Other (Fluid filled blister) and Partial Thickness Wound General Appearance: Draining Wound Bed Greatest Portion: Red (Granulation) Wound Bed Lesser Portion: Other (Filled with bloody drainage) Wound Surrounding Tissue Appearance: [place], Edematous-pitting and Weeping Percent of Wound Bed Granulated/Red: 50 Percent of Wound Bed Slough/Yellow: 50 Wound Length: 1.77 in Wound Width: 0.39 in Wound Depth: 0.04 in Wound Drainage Amount: Minimal Wound Drainage Odor: None/Absent Wound Drainage Description: Serous and Sero Sanguineous Wound Topical Solution/Irrigant: Other (Skin Integrity) Wound Debridement Method: Gauze Wound Debridement Result: Healthy Tissue Revealed Wound Debridement Amount of Tissue Removed: Minimal Additional Other Comments: Has one blister that is red granulation tissue, other blister is filled with bloody drainage. Left medial malleolus: Wound Type: Other (fluid filled blister) and Partial Thickness Wound General Appearance: Draining Wound Bed Greatest Portion: Yellow (Slough) Wound Bed Lesser Portion: Red (Granulation) and Shiny Wound Surrounding Tissue Appearance: [place], Edematous-pitting (3+) and Weeping Percent of Wound Bed Granulated/Red: 25 Percent of Wound Bed Slough/Yellow: 75 Wound Length: 0.67 in Wound Width: 0.43 in Wound Depth: 0.04 in Wound Drainage Amount: Minimal Wound Drainage Odor: None/Absent Wound Drainage Description: Serous Wound Topical Solution/Irrigant: Other (Skin Integrity) Wound Debridement Method: Gauze Wound Debridement Result: Healthy Tissue Revealed Wound Debridement Amount of Tissue Removed: Minimal (100% granulation tissue revealed) Left Lower Medial Tib/Fib(lower leg): Wound Type: Other (fluid filled blister) Wound General Appearance: Draining Wound Bed Greatest Portion: Red (Granulation) and Yellow (Slough) Wound Bed Lesser Portion: Red (Granulation) Wound Surrounding Tissue Appearance: [place] and Edematous-pitting Percent of Wound Bed Granulated/Red: 25 Percent of Wound Bed Slough/Yellow: 75 Wound Length: 3.35 in Wound Width: 3.74 in Wound Depth: 0.04 in Wound Drainage Amount: Moderate Wound Drainage Odor: None/Absent Wound Drainage Description: Serous Wound Topical Solution/Irrigant: Other (Skin Integrity) Wound Debridement Method: Gauze Wound Debridement Result: Healthy Tissue Revealed Wound Debridement Amount of Tissue Removed: Large Additional Other Comments: scant edges of yellow slough remaining, less than 5% Circulation, Sensation, Motion Edema Degree: Other (2+ on right, 3+ on left) Peripheral Pulse Strength: Weak Capillary Refill: Less than 3 seconds (bilaterally ) Sensation Description: Other (neuropathy) Skin Temperature: Warm Skin Color: Normal KELLI Comment:: Deferred due to Covid precautions. Pain Pain Level: 2 Pain Scale Used: Adult Pain Description: Dull Pain Duration (Hours): 0.10 Pain Duration/Frequency: With Palpation Wound Summary Wound Summary: Pt with fluid filled blisters that had drained with loose skin layer remaining. Loose skin (yellow slough) removed exposing red granulation tissue. Areas look clean with no signs of infection noted. Mild compression added to lower extremities to aid in reduction of edema. Photo Photo: Photos deferred due to Covid precautions. Treatment/Dressing Change Topicals/Ointments: None Cleanse With: Other (Skin Integrity) Dressing Types: ABD Pad, Kerlix (Gauze Roll), Opti-Lock and Other (Arslan wrap 4) Recomendation Recomendation:: Right and left malleolus, Left medial lower leg 1. Cleanse wounds with Skin Integrity solution. 2. Pat dry. 3. Apply Opti-lock dressings over blistered areas bilaterally. 4. On the left medial lower leg, cover the Opti-lock dressing with an ABD for added fluid collection. 5. Wrap legs with kerlix starting at the toes to above the level of the Opti- lock dressing sites. 6. Wrap both legs with arslan wraps starting at the toes to above the kerlix level and secure. 7. Change daily and prn for excessive drainage. Keep legs elevated on pillows while in bed to above the level of the heart. Have pillows length page to provide support behind the knees. While in chair, use recliner and elevate legs on pillows as well. Physcian/Nurse Practioner Notified: Yes Treatment Time Time Total Time Spent with Patient: 30 minutes
[2024-08-21] MEDS: Rivaroxaban 10 MG TABLET 20 MG PO (17:17)
[2024-08-22 00:29] VITALS: O2SAT 98
[2024-08-22] MEDS: Acetaminophen 325 MG TAB PO ×2 (03:44→19:57)
[2024-08-22] MEDS: Potassium Citrate 1080 MG TABCR 2160 MG PO ×2 (07:41→19:50)
[2024-08-22] MEDS: Cholecalciferol (Vitamin D3) 1,000 UNIT TAB 5000 UNITS PO (07:42)
[2024-08-22] MEDS: Lisinopril 20 MG TAB PO (07:42)
[2024-08-22] MEDS: Ezetimibe 10 MG TAB PO (07:42)
[2024-08-22] MEDS: Metoprolol CR 100 MG TABCR 200 MG PO (07:45)
[2024-08-22] MEDS: Isosorbide Dinitrate 10 MG TAB 30 MG PO ×2 (07:45→19:50)
[2024-08-22] MEDS: Allopurinol 300 MG TAB PO (07:45)
[2024-08-22] MEDS: Furosemide 20 MG/2 ML VIAL IVP (07:46)
[2024-08-22] MEDS: Betamethasone Dip. 0.05% CR 15 GM TUBE TP (07:46)
[2024-08-22] MEDS: Normal Saline Flush 10 ML SYR IVP ×2 (07:47→19:51)
[2024-08-22 07:51] VITALS: BP 125/57; PULSE 72; RESP 16; TEMP 36.6; O2SAT 99
[2024-08-22] MEDS: Nystatin POWDER 15 GM JAR TP ×3 (07:57→19:57)
--- NOTE | 2024-08-22 11:43 | PT.INTREAT ---
Date of service: 08/22/24 Time of Service: 10:45 PT Notes Visit Reasons: CHF,COVID,WEAKNESS Inpatient Physical Therapy Treatment Note [facility] Date: 08/22/2025 PRECAUTIONS: Fall, Activities as tolerated, Airborne Precautions for Covid SUBJECTIVE: Stated he fell yesterday afternoon when going back to bed after using the commode. Is fearful he will not be able to get himself safely to and from his w/c / commode when he returns home. Does not want to fall again. Requested extra people in the room when he ambulated bed to chair today. We discussed going home vs rehab. OBJECTIVE: ? PAIN: No specific complaints of pain ? Therapeutic Activities ([id number]): Direct one-on-one instruction in dynamic activities to improve functional performance. ? BED MOBILITY/TRANSFERS? Rolling L/R: SBA?with HOB at approximately 70 degrees ? Sit-supine: Stand by assist with lifting legs out of bed. Was issued a leg lift device for use with getting legs back into bed later. ? Sit-stand: Mod assist of one, verbal cueing for pushing up off chair.?With 2 people standing by. ? Stand-sit: CGA, verbal cueing for safety. Tends to plop into chair. ? Bed-Chair: CGA ? Chair-bed: CGA Provided skilled cues and instruction on performance and technique throughout. GAIT? Assistive Device: FWW ? Weight bearing: Full Assist: CGA, once up in standing. Did have nurse standing by.? Distance:??5ft bed to recliner? Deviation: Slow pace with shortened step length and decreased step height ? Therapeutic Exercises (80879y9): Direct one-on-one instruction in therapeutic exercises to develop strength, endurance, range of motion and flexibility. ? Exercises ? Once sitting in chair he was able to perform LAQs x 20 reps, seated hip abductionn with green t-band resistance x 20 reps, hip adduction with fist squeeze x 15 reps, seated heel raises x 10 reps, as well as green t-band resisted UE flexion from neutral to 95 degrees and bilateral UE shoulder horizontal abd/adduction x 15 reps each. Provided skilled instruction in proper exercise performance Provided skilled manual cues to facilitate proper muscle recruitment and/or form ASSESSMENT:? Tolerated today's session well with good effort given. Appears to be very nervous about going home and possibly taking another fall. PLAN: Continue to focus on improved mobility for better ADL function. Needs to gain confidence with sit to stand transfers. TREATMENT CODE/TIME: 89008 and 04605, 10:00 to 11:30 (30') ?
[2024-08-22 14:50] VITALS: BP 134/75; PULSE 69; RESP 20; TEMP 36.1; O2SAT 98
--- NOTE | 2024-08-22 16:21 | PGE_ITS ---
Date of Service Date of service: 08/22/24 Time of Service: 16:21 Assessment and Plan Assessment and plan (1) COVID-19: Status: Acute Assessment and plan: Likely major contributor to weakness. No hypoxia. He is high risk, Treating with remdesavir and he is improving. Plan to give those 3 doses prior to discharge, likely tomorrow. (2) Acute exacerbation of CHF (congestive heart failure): Status: Acute Assessment and plan: Mild HF exacerbation with elevated BNaP, s/p furosemide x 1 in ED. Will continue daily 20mg IV for now, monitor renal status. Weight is down reflecting some diuresis. (3) Hypertension: Status: Chronic Assessment and plan: BP stable, continue outpatient medications. (4) Personal history of pulmonary embolism: Status: Chronic Assessment and plan: Continue rivaroxaban. (5) CAD (coronary artery disease): Status: Chronic Assessment and plan: continue outpatient isosorbide, ezetimibe. Statin intolerant. On DOAC, no platelet medication. (6) Atrial fibrillation: Assessment and plan: On DOAC, metoprolol for rate control. (7) Type 2 diabetes mellitus without complications: Status: Chronic Assessment and plan: He clearly has DM with A1c up to 8.8% and >7% for over a year, though now in remission ranges on tirzepatide. Continue outpatient tirzepatide if he brings it in. I am okay with no strict CHO consistent diet. (8) Elevation of levels of liver transaminase levels: Status: Acute Assessment and plan: Not chronic. No EtOH. Possibly hepatic congestion, improving (9) Venous stasis ulcer: Status: Chronic Assessment and plan: wound care, compression if he tolerates it. (10) Weakness: Status: Acute Assessment and plan: PT seen with PT and notes reviewed. Family states that they are willing to pay out of pocket for acute care rehab. Will discuss with CM in am meeting tomorrow. PT could have have a very mild case of rhabdo but his CK was very reassuring as well as his renal fx. Subjective Subjective Interval history since last seen: pt seen and examined in his room. Pt continues to complain of weakness. POC d/w pt as well as Leah on the phone. POC also discussed during MDR with bedside nurse Exam Narrative Exam Narrative: GEN: Alert, oriented x 4, pleasant and cooperative, much more clear in thought process. No acute distress at rest, pulls himself up to sit with bed rails. HEENT: no rhinorrhea. MMM LUNGS: CTAB, normal effort CV: Irregularly irregular, normal rate, with no murmurs, gallops, or rubs. ABD: active bowel sounds, soft, nontender and nondistended. No masses. EXT: no cyanosis, clubbing, warm. 2+ jerod firm edema in legs with hyperpigmentation SKIN: No rashes other than redness on lower extremities, wounds dressed Objective Last Vital Signs Temp 36.1 C L 08/22/24 14:50 Pulse 69 08/22/24 14:50 Resp 20 08/22/24 14:50 BP 134/75 08/22/24 14:50 Pulse Ox 98 08/22/24 14:50 Time Spent with Patient Time Spent with Patient: 25-34 minutes Time was spent: preparing to see the patient(eg.review tests), obtaining and/or reviewing separately otained hiistory, ordering medications,tests, procedures, referring, communicating with other health medicare contact specialist, indepentently interpreting results, counseling the patient and care coordination
[2024-08-22] MEDS: Rivaroxaban 10 MG TABLET 20 MG PO (17:04)
[2024-08-22 21:42] VITALS: BP 129/72; PULSE 70; RESP 20; TEMP 37; O2SAT 95
[2024-08-23] MEDS: Melatonin 3 MG TAB PO ×2 (00:45→20:54)
[2024-08-23 06:37] LABS: HCT 44.7 % (40.0-50.0); HGB 14.4 g/dL (13.5-17.5); MCH 31.7 pg (27.0-33.0); MCHC 32.2 % (32.0-36.0); MCV 99 fL (80-95); MPV 8.9 fL (8.0-11.0); Platelet Count 244 10^3/uL (130-400); RBC 4.54 10^6/uL (4.36-5.78); RDW 14.1 % (11.8-14.1); RDW-SD 51.7 fL; WBC 7.14 10^3/uL (4.4-10.8)
[2024-08-23 07:22] LABS: ALT 30 U/L (16-63); AST 36 U/L (15-37); Albumin 2.7 g/dL (3.4-5.0); Alkaline Phosphatase 108 U/L (46-116); Anion Gap 6.8 mmol/L (3-11); BUN 26 mg/dL (7-18); Bilirubin, Total 1.05 mg/dL (0.2-1.0); CO2 27.2 mmol/L (21.0-32.0); CREATININE 0.7 mg/dL (0.70-1.30); Calcium 9.2 mg/dL (8.5-10.1); Chloride 110 mmol/L (98-107); Estimated GFR 95.49 (mL/min/1.73m2); Glucose 109 mg/dL (74-106); Sodium 144 mmol/L (136-145); Total Protein 6.3 g/dL (6.4-8.2)
[2024-08-23 08:22] VITALS: O2SAT 98
[2024-08-23] MEDS: Betamethasone Dip. 0.05% CR 15 GM TUBE TP (08:31)
[2024-08-23] MEDS: Nystatin POWDER 15 GM JAR TP ×3 (08:31→20:53)
[2024-08-23] MEDS: Isosorbide Dinitrate 10 MG TAB 30 MG PO ×2 (08:32→20:53)
[2024-08-23] MEDS: Ezetimibe 10 MG TAB PO (08:32)
[2024-08-23] MEDS: Cholecalciferol (Vitamin D3) 1,000 UNIT TAB 5000 UNITS PO (08:32)
[2024-08-23] MEDS: Metoprolol CR 100 MG TABCR 200 MG PO (08:33)
[2024-08-23] MEDS: Allopurinol 300 MG TAB PO (08:33)
[2024-08-23] MEDS: Normal Saline Flush 10 ML SYR IVP (08:33)
[2024-08-23] MEDS: Lisinopril 20 MG TAB PO (08:33)
[2024-08-23] MEDS: Potassium Citrate 1080 MG TABCR 2160 MG PO ×2 (08:33→20:53)
[2024-08-23] MEDS: Furosemide 20 MG/2 ML VIAL IVP (08:35)
[2024-08-23 08:38] VITALS: BP 120/65; PULSE 71; RESP 16; TEMP 36.6; O2SAT 96
--- NOTE | 2024-08-23 11:41 | PDOC.CMPRO ---
Date of service: 08/23/24 Time of Service: 11:41 Care Management Progress Note Progress Note Text Progress Note Text: PT recommends SNF for STR prior to returning home. Jaime and Leah are both in agreeable. Fortunately, he is covered by the ACO, which provides coverage for short term rehab at a facility that accepts the waiver (no 3 night qualifying stay needed). CM reviewed referral options with patient and his via phone, then sent referrals to all eligible SNFs. [facility] since he's been there in the past, and his is going to call them personally. [facility] w/c van will for transportation. CM will continue to follow. Discharge Potential Discharge Needs: PCP F/U Appt Anticipated Barriers to Discharge: Bed availability Patient/Family Education Needs: Review discharge instructions, discuss Ask Me Three Transportation: [facility] Transportation: Wheel chair van Plan: PT Recommends: Short-term rehab. Pt is ACO attributed and STR referrals are sent to all STR facilities that accept the 3 night waiver. Transportation will be coordinated with [facility], pt will need a W/C van. CM will follow. SDOH(Care Management) Screening Will the Patient Participate in the Screening?: Yes Do you worry about having a steady place to live?: no Problems where you live: no known problems In the past 12 months, have you had to go without electric, gas, oil or water in your home?: no Have you or anyone in your house had to go without enough food to eat?: no Has lack of transportation kept you from medical appointments or from doing things needed for daily living?: no Has anyone in your support network made you feel unsafe for any reason?: no Health Related Social Needs Health related social needs details: Transportation is [facility]
[2024-08-23 14:34] VITALS: BP 154/85; PULSE 78; RESP 18; TEMP 36.6; O2SAT 97
--- NOTE | 2024-08-23 14:47 | PGE_ITS ---
Date of Service Date of service: 08/23/24 Time of Service: 14:47 Assessment and Plan Assessment and plan (1) COVID-19: Status: Acute Assessment and plan: Likely major contributor to weakness. No hypoxia. He is high risk, Treating with remdesavir and he is improving. Plan to give those 3 doses prior to discharge, likely tomorrow. 08/23/24 completed course of Remdesivir (2) Acute exacerbation of CHF (congestive heart failure): Status: Acute Assessment and plan: Mild HF exacerbation with elevated BNaP, s/p furosemide x 1 in ED. Will continue daily 20mg IV for now, monitor renal status. Weight is down reflecting some diuresis. 08/23/24 isordil/lasix/lisinopril (3) Hypertension: Status: Chronic Assessment and plan: BP stable, continue outpatient medications. (4) Personal history of pulmonary embolism: Status: Chronic Assessment and plan: Continue rivaroxaban. (5) CAD (coronary artery disease): Status: Chronic Assessment and plan: continue outpatient isosorbide, ezetimibe. Statin intolerant. On DOAC, no platelet medication. (6) Atrial fibrillation: Assessment and plan: On DOAC, metoprolol for rate control. (7) Type 2 diabetes mellitus without complications: Status: Chronic Assessment and plan: He clearly has DM with A1c up to 8.8% and >7% for over a year, though now in remission ranges on tirzepatide. Continue outpatient tirzepatide if he brings it in. I am okay with no strict CHO consistent diet. (8) Elevation of levels of liver transaminase levels: Status: Acute Assessment and plan: Not chronic. No EtOH. Possibly hepatic congestion, improving (9) Venous stasis ulcer: Status: Chronic Assessment and plan: wound care, compression if he tolerates it. (10) Weakness: Status: Acute Assessment and plan: PT seen with PT and notes reviewed. Family states that they are willing to pay out of pocket for acute care rehab. Will discuss with CM in am meeting tomorrow. PT could have have a very mild case of rhabdo but his CK was very reassuring as well as his renal fx. 08/23/24 notes reviewed from CM and awaiting placement for acute rehab Subjective Subjective Interval history since last seen: Pt seen and examined in his room this am. Pt still complains of weakness. POC d/w pt as well as with bedside nurse during MDR Exam Narrative Exam Narrative: GEN: Alert, oriented x 4, pleasant and cooperative, much more clear in thought process. No acute distress at rest, pulls himself up to sit with bed rails. HEENT: no rhinorrhea. MMM LUNGS: CTAB, normal effort CV: Irregularly irregular, normal rate, with no murmurs, gallops, or rubs. ABD: active bowel sounds, soft, nontender and nondistended. No masses. EXT: no cyanosis, clubbing, warm. 2+ jerod firm edema in legs with hyperpigmentation SKIN: No rashes other than redness on lower extremities, wounds dressed Objective Last Vital Signs Temp 36.6 C 08/23/24 14:34 Pulse 78 08/23/24 14:34 Resp 18 08/23/24 14:34 BP 154/85 H 08/23/24 14:34 Pulse Ox 97 08/23/24 14:34 Laboratory Results - last 24 hr 08/23/24 06:10 WBC 7.14 RBC 4.54 Hgb 14.4 Hct 44.7 MCV 99 H MCH 31.7 MCHC 32.2 RDW 14.1 Plt Count 244 MPV 8.9 Sodium 144 Potassium 4.0 Chloride 110 H Carbon Dioxide 27.2 Anion Gap 6.8 BUN 26 H Creatinine 0.7 Est GFR (CKD-EPI 2020) 95.49 Glucose 109 H Calcium 9.2 Total Bilirubin 1.05 H AST 36 ALT 30 Alkaline Phosphatase 108 Total Protein 6.3 L Albumin 2.7 L Time Spent with Patient Time Spent with Patient: 25-34 minutes Time was spent: preparing to see the patient(eg.review tests), obtaining and/or reviewing separately otained hiistory, ordering medications,tests, procedures, referring, communicating with other health healthcare applications analyst, indepentently interpreting results, counseling the patient and care coordination
--- NOTE | 2024-08-23 15:31 | PT.INTREAT ---
PT Notes Visit Reasons: CHF,COVID,WEAKNESS Inpatient Physical Therapy Treatment Note [facility] Date: 08/23/2025 PRECAUTIONS: Fall, Activities as tolerated, Airborne Precautions for Covid SUBJECTIVE: Pt reporting he likes to move on a count of 4 not 3. At end of session he reported he felt his transfers sit to stand were better today then yesterday. OBJECTIVE: ? PAIN: No specific complaints of pain ? Therapeutic Activities (27891): Direct one-on-one instruction in dynamic activities to improve functional performance. ? BED MOBILITY/TRANSFERS? Rolling L/R: SBA?with HOB at approximately 20 degrees ? Sit-supine: pt able to use leg intelligence research specialist for RLE to get into bed?He required CGA for LLE and trunk. ? Sit-stand: Min assist of one, verbal cueing for pushing up from chair , commode and bed ?With 2 people standing by. ? Stand-sit: CGA, verbal cueing for safety. Tends to plop into chair. ? Chair- commode: CGA of 1 with SBA of 1 with FWW ? Commode-bed: CGA of 1 with SBA of 1 with FWW taking steps Provided skilled cues and instruction on performance and technique throughout. GAIT? Assistive Device: FWW ? Weight bearing: Full Assist: CGA, once up in standing. Did have nurse standing by.? Distance:??5ft chair to commode and 7 ft commode to bed? Deviation: Slow pace with shortened step length and decreased step height ? ASSESSMENT:? Tolerated today's session well with good effort given. Pt optimistic he will be going to rehab as the MD entered the room and reported he likely will be going to SNF prior to discharge to home. Pt demonstrated improved transfers this session and increased confidenece with mobility however continues to want 2 people present for mobility . PLAN: Continue to focus on improved mobility for better ADL function. Needs to gain confidence with sit to stand transfers. D/C recommendations: SNF short term TREATMENT CODE/TIME: 16101 [id number] ?
[2024-08-23] MEDS: Rivaroxaban 10 MG TABLET 20 MG PO (16:04)
[2024-08-23 20:20] VITALS: BP 150/87; PULSE 68; RESP 21; TEMP 37.2; O2SAT 97
[2024-08-23] MEDS: Acetaminophen 325 MG TAB PO (20:54)
[2024-08-24 06:10] VITALS: BP 135/80; PULSE 76; RESP 18; TEMP 36.6; O2SAT 98
[2024-08-24] MEDS: Metoprolol CR 100 MG TABCR 200 MG PO (08:04)
[2024-08-24] MEDS: Isosorbide Dinitrate 10 MG TAB 30 MG PO ×2 (08:04→19:17)
[2024-08-24] MEDS: Potassium Citrate 1080 MG TABCR 2160 MG PO ×2 (08:04→19:18)
[2024-08-24] MEDS: Allopurinol 300 MG TAB PO (08:05)
[2024-08-24] MEDS: Cholecalciferol (Vitamin D3) 1,000 UNIT TAB 5000 UNITS PO (08:05)
[2024-08-24] MEDS: Ezetimibe 10 MG TAB PO (08:05)
[2024-08-24] MEDS: Lisinopril 20 MG TAB PO (08:05)
[2024-08-24] MEDS: Acetaminophen 325 MG TAB PO ×2 (08:06→19:18)
[2024-08-24] MEDS: Furosemide 20 MG/2 ML VIAL IVP (08:06)
[2024-08-24] MEDS: Betamethasone Dip. 0.05% CR 15 GM TUBE TP (08:07)
[2024-08-24] MEDS: Nystatin POWDER 15 GM JAR TP ×3 (08:07→19:19)
[2024-08-24] MEDS: Normal Saline Flush 10 ML SYR IVP (08:08)
--- NOTE | 2024-08-24 09:57 | PDOC.CMPRO ---
Date of service: 08/24/24 Time of Service: 09:57 Care Management Progress Note Progress Note Text Progress Note Text: Jimbo is on Covid precautions so CM was unable to meet with him in person. CM did speak to his on the phone who was anxious to learn if he has been accepted at any of the SNFs that can accept ACO attributed patients. Their preference [facility] but they do not have the ability to provide the private room needed for Covid patients. Their sister facility in [place] is unable to accept as well. CM will contact the other facilities tomorrow, but requiring a private room to accommodate a Covid positive patient is a barrier. Jimbo continues to work with PT and was able to ambulate a distance of 5 feet with a bariatric walker with CGA. Discharge Potential Discharge Needs: Other (SNF) Anticipated Barriers to Discharge: Bed availability and Medical Status Patient/Family Education Needs: Review discharge instructions, discuss Ask Me Three Transportation: Other (to be determined by disposition) Plan: Anticipate Jimbo will be transferred to a SNF for short term rehab if a bed offer is received. He will follow up with facility providers and plan of care. Transportation will be determined by disposition. CM will follow and continue to assess for discharge needs. SDOH(Care Management) Screening Will the Patient Participate in the Screening?: Yes Do you worry about having a steady place to live?: no Problems where you live: no known problems In the past 12 months, have you had to go without electric, gas, oil or water in your home?: no Have you or anyone in your house had to go without enough food to eat?: no Has lack of transportation kept you from medical appointments or from doing things needed for daily living?: no Has anyone in your support network made you feel unsafe for any reason?: no Health Related Social Needs Health related social needs details: Transportation is [facility]
--- NOTE | 2024-08-24 10:11 | W.PM.PROGNOT ---
Date of Service Date of service: 08/24/24 Time of Service: 10:12 Assessment and Plan Assessment and plan (1) COVID-19: Status: Acute Assessment and plan: Likely major contributor to weakness. No hypoxia. Completed remdesivir Tx (2) Acute exacerbation of CHF (congestive heart failure): Status: Acute Assessment and plan: On admission: mild HF exacerbation with elevated BNaP, s/p furosemide x 1 in ED. Continue Lasix 20mg IV daily Weight is down reflecting some diuresis; continue daily weight LVEF 50% on 04/18/23 On going metoprolol succinate and lisinopril (3) Hypertension: Status: Chronic Assessment and plan: as above and on isosorbide (4) Personal history of pulmonary embolism: Status: Chronic Assessment and plan: Continue rivaroxabann home dose . (5) CAD (coronary artery disease): Status: Chronic Assessment and plan: Statin intolerant on outpatient zetia and isordil. no aniti-platelet medication. and as above (6) Atrial fibrillation: Assessment and plan: Continue DOAC, and metoprolol succinate home dose (7) Type 2 diabetes mellitus without complications: Status: Chronic Assessment and plan: A1c up to 8.8% and >7% for over a year, On tirzepatide at home Continue outpatient tirzepatide if he brings it in. I am okay with no strict CHO consistent diet. (8) Elevation of levels of liver transaminase levels: Status: Acute Assessment and plan: Not chronic. Improving (9) Venous stasis ulcer: Status: Chronic Assessment and plan: Ongoing wound care, compression with JUSTIN compression ongoing (10) Weakness: Status: Acute Assessment and plan: PT consult completed and notes reviewed. No Rhabdomyolysis as per CK and renal fx. Family volunteered to pay out of pocket for acute care rehab. CM sent referrals and awaiting placement at [facility] for acute rehab in [place] in 2-[address] Kenney Subjective Subjective Patient reports: no new complaints, feels better, tolerating liquids well, tolerating a regular diet, voiding w/o difficulty, flatus and bowel movement; denies diarrhea, blood in stool, nausea, vomiting, shortness of breath or fever Exam Narrative Exam Narrative: Constitutional The patient is in bed comfortable and cooperative without acute distress Neuro:alert and oriented to self, person, place, time and situation. No neurological focal deficit, PERRLA Chest:Chest is symmetrical and normal appearance Resp: Normal respiratory pattern, speaks in full sentences, unlabored breathing, clear lung bilaterally w decreased bases Cardio: regular rhythm, S1, S2, no murmur, capillary refill<3 sec., bilat leg edema R > L , positive pulses to all 4 ext. GI: Abdomen is not distended, soft and non tender, bowel sounds are present : Negative Costovertebral angle tenderness, no bladder distension Integumentary: No opened lesions to skin , chronic bilat leg discoloration Psych: RASS 0, congruent mood and normal affect. Objective Last Vital Signs Temp 36.6 C 08/24/24 06:10 Pulse 76 08/24/24 06:10 Resp 18 08/24/24 06:10 BP 135/80 08/24/24 06:10 Pulse Ox 98 08/24/24 06:10 Time Spent with Patient Time Spent with Patient: >50 minutes Time was spent: preparing to see the patient(eg.review tests), obtaining and/or reviewing separately otained hiistory, ordering medications,tests, procedures, referring, communicating with other health dog day care attendant, indepentently interpreting results, counseling the patient and care coordination
--- NOTE | 2024-08-24 10:22 | PT.INTREAT ---
PT Notes Visit Reasons: CHF,COVID,WEAKNESS Inpatient Physical Therapy Treatment Note [facility] Date: 08/24/2025 PRECAUTIONS: Fall, Activities as tolerated, Airborne Precautions for Covid SUBJECTIVE: Pt reports he slept well last night. OBJECTIVE: Pt presented in low chair with feet on floor. Noted 2 small fluid filled areas to Left lower leg above jenni wrap ? PAIN: right knee pain with flexion beyond 90 degrees. intermittent resolves with limiting ROM ? Therapeutic Activities (00540a2): Direct one-on-one instruction in dynamic activities to improve functional performance. ? BED MOBILITY/TRANSFERS? Rolling L/R: SBA?with HOB at approximately 70 degrees ? Sit-supine: Stand by assist with lifting legs out of bed. Was issued a leg lift device for use with getting legs back into bed later. ? Sit-stand: Mod assist of one from 17 height chair, verbal cueing for pushing up off chair and rocking x 4.?With 2 people standing by. ?CGA of 1 with rocking x 4 and SBA of 1 from elevated chair height. ? Stand-sit: CGA, verbal cueing for safety. Tends to plop into chair with height below 20 inches controlled to higher than 20. ? Bed-Chair: CGA ?with Bariatric FWW ? Chair-bed: CGA with Bariatric FWW Provided skilled cues and instruction on performance and technique throughout. GAIT? Assistive Device: FWW ? Weight bearing: Full Assist: CGA, once up in standing. TELEHEALTH COORDINATOR as stand by.? Distance:??5ft bed to recliner? Deviation: Slow pace with shortened step length and decreased step height ? Therapeutic Exercises (76678u0): Direct one-on-one instruction in therapeutic exercises to develop strength, endurance, range of motion and flexibility. ? Exercises ? Once sitting in chair he was able to perform LAQs x 20 reps, seated hip abductionn with green t-band resistance x 20 reps, hip adduction with fist squeeze x 15 reps, seated heel raises x 10 reps, as well as green t-band resisted UE flexion from neutral to 95 degrees and bilateral UE shoulder horizontal abd/adduction x 15 reps each. Provided skilled instruction in proper exercise performance Provided skilled manual cues to facilitate proper muscle recruitment and/or form ASSESSMENT:? Pt appeared more confident with use of Bariatric walker for stability during transfers/ambulation. Pt with improved sit to stand from lower height as compared to prior session however noted increase difficulty later in the day. Issued higher chair for ease of transfers when fatigued to reduce risk of falls. PLAN: Continue to focus on improved mobility for better ADL function. Needs to gain confidence with sit to stand transfers. TREATMENT CODE/TIME: 55733 and 43354, [id number] ?
[2024-08-24] MEDS: Protein Nutritional Supplement 16 GM 1 OUNCE PACKET PO ×2 (13:52→19:17)
[2024-08-24 14:38] VITALS: BP 127/74; PULSE 63; RESP 18; TEMP 37; O2SAT 99
--- NOTE | 2024-08-24 15:12 | CHAPLAIN ---
I have not visited with Jimbo as he is COVID positive. I spoke with Leah after she visited Jimbo this afternoon. She traveled to [place] recently to visit their son, and she believes she got COVID while on the and passed it on to [facility]. She said Jimbo is comfortable here, he likes being here, and they are waiting to see if he can be admitted to [facility] to have some PT and gain some strength before returning home. Their son is flying in on 08/29 for the holidays. Jimbo follows [employer].
[2024-08-24] MEDS: Rivaroxaban 10 MG TABLET 20 MG PO (16:03)
[2024-08-24 19:15] VITALS: BP 124/78; PULSE 68; RESP 18; TEMP 36.8; O2SAT 98
[2024-08-24] MEDS: Melatonin 3 MG TAB PO (19:18)
--- NOTE | 2024-08-24 23:45 | NUR.NOTE ---
Pt transferred well from chair to BSC with 1 assist with walker/GB then from BSC to bed. pt utilized foot adaptive strap to get his own feet into bed. callbell within reach PNursing Note:
[2024-08-25 06:30] VITALS: BP 155/81; PULSE 71; RESP 18; TEMP 36.6; O2SAT 96
[2024-08-25 07:23] LABS: Abs Immature Grans 0.05 10^3/uL (0.0-0.06); Absolute Basophil Count 0.08 10^3/uL (0.0-0.2); Absolute Eosinophil Count 0.19 10^3/uL (0.0-0.7); Absolute Lymphocyte Count 1.38 10^3/uL (1.2-3.4); Absolute Monocyte Count 0.69 10^3/uL (0.1-0.8); Absolute Neutrophil Count 5.01 10^3/uL (1.2-6.7); Basophils % 1.1 %; Eosinophils % 2.6 %; HCT 48.4 % (40.0-50.0); HGB 15.4 g/dL (13.5-17.5); Immature Grans % 0.7 %; Lymphocytes % 18.6 %; MCH 31.3 pg (27.0-33.0); MCHC 31.8 % (32.0-36.0); MCV 98 fL (80-95); MPV 9.1 fL (8.0-11.0); Monocytes % 9.3 %; Neutrophils % 67.7 %; Platelet Count 276 10^3/uL (130-400); RBC 4.92 10^6/uL (4.36-5.78); RDW 13.7 % (11.8-14.1); RDW-SD 49.7 fL
[2024-08-25 07:45] LABS: Anion Gap 5.8 mmol/L (3-11); BUN 27 mg/dL (7-18); CO2 28.2 mmol/L (21.0-32.0); CREATININE 0.8 mg/dL (0.70-1.30); Calcium 9.7 mg/dL (8.5-10.1); Chloride 109 mmol/L (98-107); Estimated GFR 91.72 (mL/min/1.73m2); Glucose 109 mg/dL (74-106); Sodium 143 mmol/L (136-145)
[2024-08-25] MEDS: Metoprolol CR 100 MG TABCR 200 MG PO (09:10)
[2024-08-25] MEDS: Protein Nutritional Supplement 16 GM 1 OUNCE PACKET PO ×2 (09:10→16:19)
[2024-08-25] MEDS: Lisinopril 20 MG TAB PO (09:10)
[2024-08-25] MEDS: Cholecalciferol (Vitamin D3) 1,000 UNIT TAB 5000 UNITS PO (09:11)
[2024-08-25] MEDS: Potassium Citrate 1080 MG TABCR 2160 MG PO (09:11)
[2024-08-25] MEDS: Allopurinol 300 MG TAB PO (09:11)
[2024-08-25] MEDS: Isosorbide Dinitrate 10 MG TAB 30 MG PO (09:11)
[2024-08-25] MEDS: Furosemide 20 MG/2 ML VIAL IVP (09:12)
[2024-08-25] MEDS: Ezetimibe 10 MG TAB PO (09:12)
[2024-08-25] MEDS: Normal Saline Flush 10 ML SYR IVP (09:17)
[2024-08-25] MEDS: Nystatin POWDER 15 GM JAR TP ×2 (09:18→16:19)
[2024-08-25] MEDS: Betamethasone Dip. 0.05% CR 15 GM TUBE TP (09:20)
--- NOTE | 2024-08-25 10:24 | NUR.NOTE ---
Nursing Note: Patient complained of diminished sensation and mobility of left toes this morning. Dorsalis pedis pulses were normal bilaterally. Bilateral elastic bandage wraps were present, and these were removed and re-wrapped. Bilateral feet appear deep purple, per Delores Omer this is not new. Discussed with Delores Omer [employer] HOUSE KILN OPERATOR.
--- NOTE | 2024-08-25 13:08 | PT.INTREAT ---
PT Notes Visit Reasons: CHF,COVID,WEAKNESS Inpatient Physical Therapy Treatment Note [facility] Date: 08/25/2025 PRECAUTIONS: Fall, Activities as tolerated, Airborne Precautions for Covid SUBJECTIVE: Pt reports he feels really good and is hoping to go home instead of going to rehab. OBJECTIVE: Pt presented seated on chair with feet on floor. ? PAIN: denied ? Therapeutic Activities (70002w1): Direct one-on-one instruction in dynamic activities to improve functional performance. ? BED MOBILITY/TRANSFERS? Rolling L/R: ? Sit-supine: ? Sit-stand: SBA from all surfaces commode, high chair, bed and standard height chair. x 4 trials each. Pt utilizes rocking motion and count of 4 then able to rise without physical assistance. ? Stand-sit: SBA, able to control descent to all surface heights? Bed-Chair: SBA ?with Bariatric FWW ? Chair-bed: SBA with Bariatric FWW Provided skilled cues and instruction on performance and technique throughout. GAIT? Assistive Device: FWW ? Weight bearing: Full Assist: SBA, ? Distance:??5ft x 8 to simulate pt movement within home surface to surface. ? Deviation: Slow pace with shortened step length and decreased step height ? ASSESSMENT:? Pt with significant improvement in ability to perform transfers from all surfaces heights . Pt demonstrates safe technique without need for cues or physical assistance. Pt demonstrating ability to perform tasks . Pt will have session this afternoon to assess his ability to perform same tasks after being out of bed. PLAN: Continue to focus on improved mobility for better ADL function. Needs to gain confidence with sit to stand transfers. TREATMENT CODE/TIME: 41007c3 [id number] ?
--- NOTE | 2024-08-25 13:08 | PT.INTREAT ---
PT Notes Visit Reasons: CHF,COVID,WEAKNESS Date: 08/25/2025 PRECAUTIONS: Fall, Activities as tolerated, Airborne Precautions for Covid SUBJECTIVE: Pt in recliner when approached for therapy this afternoon, agreed to participating with therapy session. OBJECTIVE: Pt BLE wrapped, ? PAIN: denies ? Therapeutic Activities 43841: Direct one-on-one instruction in dynamic activities to improve functional performance. ? BED MOBILITY/TRANSFERS? Rolling L/R: Supervision? Sit-supine: Supervision ? Sit-stand: Supervision? Stand-sit: Supervision ? Bed-Chair: Supervision? Chair-bed: Supervision Provided skilled cues and instruction on performance and technique throughout. GAIT? Assistive Device: FWW ? Weight bearing: Full Assist: Supervision ? Distance:??recliner to commode 5', commode to EOB 15', EOB to recliner 15' ? Deviation: Slow pace with shortened step length and decreased step height ? Therapeutic Exercises 34384: Direct one-on-one instruction in therapeutic exercises to develop strength, endurance, range of motion and flexibility. Exercises: Seated LAQs x 20 reps Seated hip abduction with green t-band resistance x 20 reps, Seated hip adduction with fist squeeze x 15 reps, Seated heel raises x 10 reps, as well as green t-band resisted UE flexion from neutral to 95 degrees and bilateral UE shoulder horizontal abd/adduction x 15 reps each. Provided skilled instruction in proper exercise performance Provided skilled manual cues to facilitate proper muscle recruitment and/or form ASSESSMENT:? Pt expressed he is looking forward to going home motivating him to do good with supervised transfers. pt was present at time of treatment and was able to witness pt performing all transfer activity. PLAN: Informed nurse about pt performance, will plan on DC. TREATMENT CODE/TIME: 19832 and 23115 30mins (12:37-1:07pm)
--- NOTE | 2024-08-25 15:03 | W.PM.DS.N ---
Date of service: 08/25/24 Time of Service: 15:15 DS: Diagnosis Discharge Diagnosis (1) COVID-19: Status: Acute (2) Acute exacerbation of CHF (congestive heart failure): Status: Acute (3) Hypertension: Status: Chronic (4) Personal history of pulmonary embolism: Status: Chronic (5) CAD (coronary artery disease): Status: Chronic (6) Atrial fibrillation: (7) Type 2 diabetes mellitus without complications: Status: Chronic (8) Elevation of levels of liver transaminase levels: Status: Acute (9) Venous stasis ulcer: Status: Chronic (10) Weakness: Status: Acute Discharge Plan Disposition Patient Disposition: Home W/Home Health Services Condition: Improving Discharge Details Reason For Visit: CHF,COVID,WEAKNESS Admit Date/Time: 08/20/24 09:45 Admit Provider: Emmanuel Begmu Attending Provider: Emmanuel Begum Primary Care Provider: Ginette Villavicencio Hospital Course Hospital Course: This 78-year-old male patient with past medical history of type 2 diabetes, HFpEF, CAD, TOM, hypertension, PE, atrial fibrillation on Xarelto and metoprolol presented to the ED at [facility] on 08/20/2024 with complaints of severe fatigue. Report given that was diagnosed with COVID a week prior to presentation and that the patient tested positive also at home for COVID for which she was started on Paxlovid by the PCP but did not initiate. At the time of presentation patient complained of mild sore throat cough but denies shortness of breath or chest pain. Due to severe fatigue patient could not get out of the toilet from 10 PM to 5 AM prior to presentation. Saturation in the emergency room at at 87% on room air, with tachypnea at 27. Later on the patient saturation improved to 91 to 92% on room air. Workup in the ED confirmed that the patient was COVID-positive; CBC and chemistry were unremarkable; chest x-ray showed no infiltrates or pleural effusion nor pulmonary edema. In the ED physical therapy saw the patient; he was 3 point assist at least,did not have the resources necessary for home at this time. Patient was deemed unsafe to be discharged.hospitalist was consulted and the patient was admitted to the medical surgical floor for COVID infection, weakness . During the stay, the patient was treated with remdesivir IV. Chronic conditions were treated as per home medicine regimen. Physical therapy worked with the patient and determined that the patient would need short-term rehabilitation and a prospective facility was found for the patient in 2 to 3 days from yesterday. The patient verbalized that he felt stronger and was able to complete mobilization on his home moving from bed to commode to chair with his walker independently. The patient determined that he did not want to go to the short-term rehab facility and was ready to be discharged home. During the stay the patient received IV Lasix but will be discharged on furosemide orally 20 mg daily; he was on 10 mg daily prior to admission. The patient will be discharged home with resumption of his home health services including nursing and physical therapy. The patient will need to follow-up with his primary care practitioner within 7 days of discharge. Discussed with Dr. Kenney Home Meds and New Rx's Prescriptions: Continued nitroglycerin 0.4 MG tablet, sublingual 0.4 mg Sublingual PRN PRN (Reason: Chest Pain) lisinopril 40 MG tablet 20 mg PO DAILY potassium citrate 10 MEQ tablet extended release 20 meq PO BID allopurinol 300 MG tablet 300 mg PO DAILY Acetaminophen [Tylenol] 650 mg PO Q4H PRN PRNQty: 0 0RF polyethylene glycol 3350 17 gram Powder In Packet 17 g PO DAILY PRN PRN (Reason: Constipation) Qty: 0 0RF Patient Comments: 11/28/22: not taking docusate sodium [Colace] 100 mg Capsule 100 mg PO TID PRN PRNQty: 0 0RF cholecalciferol (vitamin D3) 125 mcg (5,000 unit) capsule 125 mcg PO DAILY nystatin 100,000 unit/gram powder 1 applic topical TID isosorbide dinitrate 30 mg tablet 30 mg PO BID metoprolol succinate 200 mg tablet extended release 24 hr 200 mg PO DAILY Mounjaro 10 mg/0.5 mL pen injector 10 mg subcut QWEEK Rx Instructions: On Fridays per ezetimibe 10 mg tablet 10 mg PO DAILY Xarelto 20 mg tablet 20 mg PO DAILY betamethasone dipropionate 0.05 % cream 0.05 applic TOPICAL DAILY melatonin 3 mg capsule 3 mg PO HS PRNQty: 30 0RF Rx Instructions: PRN sleep Changed furosemide 40 mg tablet 20 mg PO QAM Qty: 0 0RF Discontinued Paxlovid 300 mg (150 mg x 2)-100 mg tablets,dose pack PO Discharge Instructions Stand Alone Forms: Nursing Discharge Form Referrals: Ginette Villavicencio [Primary Care Provider] - 09/09/24 12:00 pm (Follow-up within 7 days of discharge please) Activity:: Activity as Tolerated Equipment/Supplies:: Walker Diet:: heart healthy diabetic Discharge Orders Discharge Orders: Discharge Order (Routine); Ordered 08/25/24 Ordered By: Delores Omer DS: Summary Time Spent with Patient providing and/or coordinating discharge services: Greater than 30 minutes Status at Discharge Functional status at discharge: uses cane/walker Overall status at discharge: patient is progressing back to baseline Mental Status: mental status grossly normal Speech and Movement: speech and movement normal Mood: congruent mood Affect: normal affect Quality:SDOH Health Related Social Needs: Health related social needs housing instability, housed, with risk of homelessness(Z59.811) Health related social needs details Transportation is RCT Health related social needs details: Transportation is RCT Exam Narrative Exam Narrative: Constitutional The patient is in chair comfortable and cooperative without acute distress Neuro:alert and oriented X 4. No neurological focal deficit Resp: Unlabored breathing, clear lung bilaterally w decreased bases Cardio: regular rhythm, S1, S2, no murmur, capillary refill<3 sec., bilat leg edema R > L , positive pulses to all 4 ext. GI: Abdomen is not distended, soft and non tender, bowel sounds are present : Negative Costovertebral angle tenderness Integumentary: No opened lesions to skin , chronic bilat leg discoloration Psych: RASS 0, congruent mood and normal affect. Psych Mental Status: mental status grossly normal Speech and Movement: speech and movement normal Mood: congruent mood Affect: normal affect DS: Data Vitals/I&O Vitals and I&O: Vital Signs Temperature 36.6 C 08/25/24 06:30 Temperature Source Tympanic 08/25/24 06:30 Pulse 71 08/25/24 06:30 Pulse Rhythm Irregular 08/20/24 11:17 Pulse 77 08/20/24 10:01 Respiratory Rate 18 08/25/24 06:30 Respiratory Effort Normal 08/20/24 11:17 Respiratory Depth Normal 08/20/24 11:17 Respiratory Pattern Apnea 08/20/24 11:17 Blood Pressure 155/81 H 08/25/24 06:30 Blood Pressure Mean 86 08/20/24 10:01 Pulse Oximetry 96 08/25/24 06:30 Oxygen Delivery Method Room Air 08/25/24 06:30 Oxygen Flow Rate 0 08/25/24 06:30 Fraction of Inspired Oxygen (FIO2) 21 08/20/24 20:18 Pain Level 4 08/24/24 19:18 Comment RN notified 08/23/24 14:34 Intake & Output 08/24/24 08/25/24 08/25/24 23:59 11:59 23:59 Intake Total 240 / 600 480 / 480 Output Total 400 / 1520 1075 / 1550 475 / 1550 Balance -160 / -920 -595 / -1070 -475 / -1070 Weight 121.6 kg Intake: Oral 240 / 600 480 / 480 Output: Urine 400 / 1520 1075 / 1550 475 / 1550 Other: Urine Color Dark Maisha Yellow Yellow Urine Appearance Clear Clear Clear Urine Odor None Normal Comment while using urinal in bed Stool Size Moderate Small Stool Characteristics Soft Soft Brown Formed Brown Data Completed and Pending Labs on day of discharge: Labs from last 24 hours 08/25/24 07:00 WBC 7.40 RBC 4.92 Hgb 15.4 Hct 48.4 MCV 98 H MCH 31.3 MCHC 31.8 L RDW 13.7 Plt Count 276 MPV 9.1 Immature Gran % 0.7 Neutrophils % 67.7 Lymphocytes % 18.6 Monocytes % 9.3 Eosinophils % 2.6 Basophils % 1.1 Nucleated RBC % 0.0 Absolute Neutrophils 5.01 Absolute Lymphocytes 1.38 Absolute Monocytes 0.69 Absolute Eosinophils 0.19 Absolute Basophils 0.08 Sodium 143 Potassium 4.0 Chloride 109 H Carbon Dioxide 28.2 Anion Gap 5.8 BUN 27 H Creatinine 0.8 Est GFR (CKD-EPI 2020) 91.72 Glucose 109 H Calcium 9.7 PFSH All Active Problems (Updated 08/22/24 @ 16:23 by Flex Kenney MD) Weakness (Acute) Elevation of levels of liver transaminase levels (Acute) COVID-19 (Acute) Acute exacerbation of CHF (congestive heart failure) (Acute) Generalized weakness (Acute) Shoulder pain (Acute) Edema of lower extremity (Acute) Pressure sore on buttocks (Acute) At high risk for skin breakdown (Acute) Bilateral leg weakness (Acute) Weight loss due to medication (Acute) Chest pain (Acute) Physician orders for life-sustaining treatment (POLST) form indicates patient wish for [id number] status (Acute) Advance care planning (Acute) Palliative care patient (Acute) HFrEF (heart failure with reduced ejection fraction) (Chronic) Ambulatory dysfunction (Acute) Bilateral leg weakness (Acute) Lumbago (Chronic) Non compliance with medical treatment (Acute) Trochanteric bursitis, left hip (Acute) H/O surgical procedure (Chronic) a. Bilateral hip replacement b. Nephrolithotomy c. Right ureteral stent placement d. Coronary artery stent placement 2006 e. Adult circumcision f. Colonoscopy 11/2013 History of revision of total replacement of left hip joint (Acute 11/01/20) Acetabular revision with head/liner exchange for fractured femoral head prosthesis. Pure hypercholesterolemia, unspecified (Acute) Cerumen impaction (Acute) Type 2 diabetes mellitus without complications (Chronic) Neoplasm of unspecified behavior of bone, soft tissue, and skin (Acute) Nasal dryness (Acute) Acute cholecystitis (Acute 09/07/14) Morbid obesity (Chronic) CAD (coronary artery disease) (Chronic) a. coronary artery stent placement 2006 Personal history of pulmonary embolism (Chronic) Hypertension (Chronic) TOM (obstructive sleep apnea) (Chronic) Personal history of kidney stones (Chronic) a. uric acid stones Venous stasis ulcer (Chronic) Venous (peripheral) insufficiency (Chronic) Medical History Venous stasis ulcer of left lower extremity HNP (herniated nucleus pulposus), lumbar Relative polycythemia Failed total hip arthroplasty Heart failure with preserved ejection fraction CAD (coronary artery disease) Cholangitis Nephrolithiasis Phimosis Pulmonary embolism Hx of pulmonary artery thrombosis Venous stasis ulcer of ankle limited to breakdown of skin without varicose veins Body mass index (BMI) 50.0-59.9, adult Anticoagulant long-term use Atrial fibrillation Surgical History H/O bilateral hip replacements Social History Smoking/Tobacco Use Status: Former Tobacco Use Smoking risk assessment performed?: Yes Alcohol Intake: never Drug use: Never Substance use type: does not use Household members: spouse Housing: house What is your relationship status?: Panel score (0-1 are the most socially isolated patients): 1 Do you feel safe at home: Yes Do you feel safe in your relationship?: Yes Time Spent with Patient Time Spent with Patient: 70-84 minutes4 Time was spent: preparing to see the patient(eg.review tests), obtaining and/or reviewing separately otained hiistory, ordering medications,tests, procedures, referring, communicating with other health care transition coordinator, indepentently interpreting results, counseling the patient and care coordination
--- NOTE | 2024-08-25 17:39 | PDOC.CMDIS ---
Date of service: 08/25/24 Time of Service: 17:39 LACE Index Scoring Tool Questions: Length of Stay (in days): 4 - 6 Was the patient admitted via the E.D.?: Yes Comorbidities: PVD, Diabetes w/o Complication, Congestive Heart Failure, Chronic Pulmonary Disease (TOM) and Any Tumor E.D. Visits: 2 Answers: Total Score: 14 Risk of Readmission: High Risk Care Management Discharge Plan Reason for Hospitalization: weakness and Covid Discharge Plan: Jimbo will be discharged home with new home health orders for nursing, PT, OT and DERMATOLOGIST AND DERMATOPATHOLOGIST Patient/Family Education Needs: Review discharge instructions, activity, limitations, follow up plan, and discuss Ask Me Three Services Needed at Discharge: Home Health Care Services (RN, PT, OT and DERMATOLOGIST AND DERMATOPATHOLOGIST) SDOH Health Related Social Needs: Health related social needs housing instability, housed, with risk of homelessness(Z59.811) Health related social needs details Transportation is RCT Health related social needs details: Transportation is RCT
== END 2024-08-25 17:30 | disposition home health service (06) ==
LOC: ER 09:50 → MS 10:48
PROVIDERS: Hospitalist; Nurse Practitioner Acute Care; Student in an Organized Health Care Education/Training Program; Admitting Provider Family Medicine; Emergency Provider Student in an Organized Health Care Education/Training Program; PCP Family Medicine; Visit Provider Family Medicine
DX: U07.1 COVID-19 (principal); I11.0 Hypertensive heart disease with heart failure; I50.33 Acute on chronic diastolic (congestive) heart failure; I25.10 Atherosclerotic heart disease of native coronary artery without angina pectoris; I48.11 Longstanding persistent atrial fibrillation; Z86.711 Personal history of pulmonary embolism; E11.9 Type 2 diabetes mellitus without complications; R74.01 Elevation of levels of liver transaminase levels; R53.1 Weakness; G47.33 Obstructive sleep apnea (adult) (pediatric); E78.00 Pure hypercholesterolemia, unspecified; G89.29 Other chronic pain; M54.50 Low back pain, unspecified; Z79.01 Long term (current) use of anticoagulants; Z96.643 Presence of artificial hip joint, bilateral; I83.013 Varicose veins of right lower extremity with ulcer of ankle; I83.023 Varicose veins of left lower extremity with ulcer of ankle; L97.311 Non-pressure chronic ulcer of right ankle limited to breakdown of skin; L97.321 Non-pressure chronic ulcer of left ankle limited to breakdown of skin
CPT/HCPCS: 00123; 36415; 51702; 80048; 80053; 82550; 85027; 87635; 93005; 96365; 96366; 96375; 96376; 97110; 97116; 97162; 97530; 99285; 71045; 81003; 81015; 83735; 83880; 84484; 85025; 93010; 99223; 99232; 99233; 99239; G0378; J0248; J1941

== ENCOUNTER 2025-02-04 01:32 | Observation (INO) | payer MEDICARE, BC, SELFPAY ==
[2025-02-04] VITALS (42 sets, daily range): BP systolic 120–189; BP diastolic 62–121; PULSE 0–92; RESP 0–23; TEMP 36.1–36.6; O2SAT 93–100
--- NOTE | 2025-02-04 01:09 | ED.GENADUL_ITS ---
Discharge Plan Disposition Patient Disposition: Admit to [facility] Condition: Stable Discharge Details Clinical Impression: Hematoma of right iliopsoas muscle, Retroperitoneal bleeding Primary Care Provider: Ginette Villavicencio ED Provider: Flex Minor [place] and New Rx's Prescriptions: No Action nitroglycerin 0.4 MG tablet, sublingual 0.4 mg Sublingual PRN PRN (Reason: Chest Pain) lisinopril 40 MG tablet 20 mg PO DAILY potassium citrate 10 MEQ tablet extended release 20 meq PO BID allopurinol 300 MG tablet 300 mg PO DAILY Acetaminophen [Tylenol] 650 mg PO Q4H PRN PRNQty: 0 0RF polyethylene glycol 3350 17 gram Powder In Packet 17 g PO DAILY PRN PRN (Reason: Constipation) Qty: 0 0RF Patient Comments: 11/28/22: not taking docusate sodium [Colace] 100 mg Capsule 100 mg PO TID PRN PRNQty: 0 0RF cholecalciferol (vitamin D3) 125 mcg (5,000 unit) capsule 125 mcg PO DAILY nystatin 100,000 unit/gram powder 1 applic topical TID isosorbide dinitrate 30 mg tablet 30 mg PO BID metoprolol succinate 200 mg tablet extended release 24 hr 200 mg PO DAILY Mounjaro 10 mg/0.5 mL pen injector 10 mg subcut QWEEK Rx Instructions: On Fridays per furosemide 40 mg tablet 20 mg PO QAM Qty: 0 0RF ezetimibe 10 mg tablet 10 mg PO DAILY Xarelto 20 mg tablet 20 mg PO DAILY betamethasone dipropionate 0.05 % cream 0.05 applic TOPICAL DAILY melatonin 3 mg capsule 3 mg PO HS PRNQty: 30 0RF Rx Instructions: PRN sleep HPI General Mode of arrival: EMS . Date/Time Provider Initiated Documentation: 02/04/25 01:32 . Limitations to Documentation: no limitations . Information obtained by: patient, EMS, RN notes reviewed and old records reviewed . HPI Narrative: Patient presents to ED with right lateral thigh pain. Patient reports injuring himself 3 days ago while trying to get into bed. Did not have an actual fall, this was more of a twisting injury. Bothered him that first night but seem to be getting better. Tonight recurrent and worst pain despite no new injury. He has bilateral lower extremity weakness and edema at baseline. He uses a walker at all times and he is still able to stand. He uses a makeshift loop to help him get into bed and get his legs up in the bed because of the weakness in them. It was in the process of doing this 3 nights ago that he injured himself. Denies any type of chest pain, shortness of breath, abdominal pain. Related Data Home Medications ?Medication ?Instructions ?Recorded ?Confirmed lisinopril 40 mg tablet 20 mg PO DAILY 09/07/14 02/04/25 nitroglycerin 0.4 mg sublingual 0.4 mg sublingual PRN PRN Chest 09/07/14 12/13/24 tablet Pain allopurinol 300 mg tablet 300 mg PO DAILY 12/30/16 02/04/25 potassium citrate 10 mEq (1,080 20 meq PO BID 12/30/16 02/04/25 mg) tablet,extended release Acetaminophen [Tylenol] 650 mg PO Q4H PRN PRN ##0 11/06/21 02/04/25 docusate sodium 100 mg capsule 100 mg PO TID PRN PRN #0 caps 08/26/22 02/04/25 (Colace) polyethylene glycol 3350 17 gram 17 g PO DAILY PRN PRN Constipation 08/26/22 12/13/24 oral powder packet #0 ea nystatin 100,000 unit/gram topical 1 applic topical TID 11/28/22 12/13/24 powder cholecalciferol (vitamin D3) 125 125 mcg PO DAILY 12/18/22 12/13/24 mcg (5,000 unit) capsule betamethasone dipropionate 0.05 % 0.05 applic topical DAILY 02/24/24 12/13/24 topical cream ezetimibe 10 mg tablet 10 mg PO DAILY 02/24/24 02/04/25 rivaroxaban 20 mg tablet (Xarelto) 20 mg PO DAILY 02/24/24 02/04/25 melatonin 3 mg capsule 3 mg PO HS PRN #30 caps 02/27/24 12/13/24 isosorbide dinitrate 30 mg tablet 30 mg PO BID 08/20/24 02/04/25 metoprolol succinate 200 mg 200 mg PO DAILY 08/20/24 02/04/25 tablet,extended release 24 hr tirzepatide 10 mg/0.5 mL 10 mg subcut QWEEK 08/21/24 02/04/25 subcutaneous pen injector (Joseunandrea) furosemide 40 mg tablet 20 mg (1/2 x 40 mg) PO QAM #0 tabs 08/25/24 02/04/25 Previous Rx's ?Medication ?Instructions ?Recorded Acetaminophen [Tylenol] 650 mg PO Q4H PRN PRN ##0 11/06/21 docusate sodium 100 mg capsule 100 mg PO TID PRN PRN #0 caps 08/26/22 (Colace) polyethylene glycol 3350 17 gram 17 g PO DAILY PRN PRN Constipation 08/26/22 oral powder packet #0 ea melatonin 3 mg capsule 3 mg PO HS PRN #30 caps 02/27/24 furosemide 40 mg tablet 20 mg (1/2 x 40 mg) PO QAM #0 tabs 08/25/24 Allergies Allergy/AdvReac Type Severity Reaction Status Date / Time metformin AdvReac DIARRHEA Verified 02/04/25 01:24 General NADINE: 3 Exam Narrative Exam Narrative: Const: Obese elderly male in NAD. VS per triage. HEENT: NC/AT. Normal facial exam. Neck: Supple. Trachea midline. Lungs: Normal respiratory effort. Neuro: A+O x 3. Normal speech, mentation. Cranial nerves II - XII grossly intact. Baseline LE weakness, sensation in tact. Ext: No C/C. BLE edema with compression wraps distal. Medical Decision Making Patient presenting to ED with right lateral thigh pain. He also feels like it is more swollen than usual. Reports an injury 3 nights ago. Is able to stand with his walker. Thought the pain was getting better and then acutely worse again tonight with no injury. He is anticoagulated due to history of PE and A- fib. He has bilateral lower extremity edema and weakness which is not new. He has had some increasing edema but this is not uncommon. He is denying any type of chest pain or shortness of breath. His issue is the lateral thigh pain and my concern would be bleeding into the thigh because of previous muscle injury since he is on Xarelto. Possible that there is an occult fracture. I think imaging with CT scan with IV contrast from hip to knee will give us the most information. Will check CBC and BMP. Difficult to palpate distal pulses due to edema. Nursing to assess with Doppler once compression dressing was removed. 04:00 - Patient's laboratory studies show a normal hemoglobin at 14.9. Renal function normal with a creatinine of 0.8. CT scan of the right pelvis and thigh preliminary report does show a iliopsoas hematoma as well as mild right pelvic retroperitoneal hemorrhage. There is no evidence of active extravasation. Patient remains hemodynamically stable. Still having a fair amount of pain so we will give a dose of IV acetaminophen. Will discuss with hospitalist for admission to ensure stability in both hemoglobin and vital signs. May have to consider holding his Xarelto. Patient aware of findings and plan. Medical Records Medical records reviewed: Yes I reviewed the patient's medical records. Medical records narrative: palliative notes, D/C summary from 08/2024 Imaging Data Radiologic Study: Imaging: CT Scan Radiologist's impression: IMPRESSION: Right ileus psoas hematoma and mild right pelvic retroperitoneal hemorrhage. No acute fracture or dislocation. Lab Data Lab results reviewed: Yes I reviewed the patient's lab results. Lab results narrative: see MDM Quality:SDOH Health Related Social Needs: Health related social needs details Transportation is [facility] All Active Problems (Updated 02/04/25 @ 04:12 by Flex Minor MD) Retroperitoneal bleeding (Acute) Hematoma of right iliopsoas muscle (Acute) Palliative care encounter (Acute) Weakness (Acute) Generalized weakness (Acute) Shoulder pain (Acute) Edema of lower extremity (Acute) Pressure sore on buttocks (Acute) At high risk for skin breakdown (Acute) Bilateral leg weakness (Acute) Weight loss due to medication (Acute) Chest pain (Acute) Physician orders for life-sustaining treatment (POLST) form indicates patient wish for [id number] status (Acute) Advance care planning (Acute) Palliative care patient (Acute) HFrEF (heart failure with reduced ejection fraction) (Chronic) Ambulatory dysfunction (Acute) Bilateral leg weakness (Acute) Lumbago (Chronic) Non compliance with medical treatment (Acute) Trochanteric bursitis, left hip (Acute) H/O surgical procedure (Chronic) a. Bilateral hip replacement b. Nephrolithotomy c. Right ureteral stent placement d. Coronary artery stent placement 2006 e. Adult circumcision f. Colonoscopy 11/2013 History of revision of total replacement of left hip joint (Acute 11/01/20) Acetabular revision with head/liner exchange for fractured femoral head prosthesis. Pure hypercholesterolemia, unspecified (Acute) Cerumen impaction (Acute) Type 2 diabetes mellitus without complications (Chronic) Neoplasm of unspecified behavior of bone, soft tissue, and skin (Acute) Nasal dryness (Acute) Acute cholecystitis (Acute 09/07/14) Morbid obesity (Chronic) CAD (coronary artery disease) (Chronic) a. coronary artery stent placement 2006 Hypertension (Chronic) TOM (obstructive sleep apnea) (Chronic) Personal history of kidney stones (Chronic) a. uric acid stones Venous stasis ulcer (Chronic) Venous (peripheral) insufficiency (Chronic) Medical History Personal history of pulmonary embolism Body mass index (BMI) 50.0-59.9, adult Venous stasis ulcer of left lower extremity HNP (herniated nucleus pulposus), lumbar Relative polycythemia Failed total hip arthroplasty Heart failure with preserved ejection fraction CAD (coronary artery disease) Cholangitis Nephrolithiasis Phimosis Pulmonary embolism Hx of pulmonary artery thrombosis Venous stasis ulcer of ankle limited to breakdown of skin without varicose veins Anticoagulant long-term use Atrial fibrillation Surgical History H/O bilateral hip replacements Social History Smoking/Tobacco Use Status: Former Tobacco Use Smoking risk assessment performed?: Yes Alcohol Intake: never Drug use: Never Substance use type: does not use Household members: spouse Housing: house What is your relationship status?: Panel score (0-1 are the most socially isolated patients): 1 Do you feel safe at home: Yes Do you feel safe in your relationship?: Yes
[2025-02-04 02:16] LABS: HCT 45.9 % (40.0-50.0); HGB 14.9 g/dL (13.5-17.5); MCH 31.9 pg (27.0-33.0); MCHC 32.5 % (32.0-36.0); MCV 98 fL (80-95); MPV 9.1 fL (8.0-11.0); Platelet Count 237 10^3/uL (130-400); RBC 4.67 10^6/uL (4.36-5.78); RDW 14.9 % (11.8-14.1); RDW-SD 54.3 fL; WBC 11.53 10^3/uL (4.4-10.8)
--- NOTE | 2025-02-04 02:22 | NUR.NOTE ---
positive pulse in R foot with doppler Nursing Note:
[2025-02-04 02:34] LABS: Anion Gap 7.8 mmol/L (3-11); BUN 29 mg/dL (7-18); CO2 26.2 mmol/L (21.0-32.0); CREATININE 0.8 mg/dL (0.70-1.30); Calcium 9.8 mg/dL (8.5-10.1); Chloride 104 mmol/L (98-107); Estimated GFR 91.15 (mL/min/1.73m2); Glucose 114 mg/dL (74-106); Sodium 138 mmol/L (136-145)
[2025-02-04] MEDS: Omnipaque 350 MG/ML 100 ML BTL IJ (03:08)
[2025-02-04] MEDS: Normal Saline - Diluent 50 ML VIAL IJ (03:09)
--- NOTE | 2025-02-04 03:10 | DI.CT_ITS ---
Exam(s) CT LOWER EXTREMITY RT W EXAM: CT LOWER EXTREMITY RT W CLINICAL HISTORY: thigh pain/swelling; twisting injury; anticoagulat. TECHNIQUE: Imaging Protocol: Axial computed tomography images with coronal and sagittal reformatted images were created and reviewed. CONTRAST MATERIAL: Intravenous: Omnipaque 350 Contrast volume:100 mL Oral: No COMPARISON: No exams were available for comparison FINDINGS: OSSEOUS: There are bilateral hip prostheses. Significant osteopenia in the upper femur surrounding b oth prostheses. There is a figure of 8 circumferential wire at the level of the greater trochanter o f the right hip. No obvious acute hip fracture degenerative subarticular cysts seen in the right sup erior acetabulum measuring 1.5 cm. SOFT TISSUES: There is prominent hematoma evident in the right ileal psoas muscle and this extends do wn through the pelvis along the ilial side OS tendon down to the level of the lesser trochanter. The re does not appear to be active extravasation into the hematoma on these images.. There is also some adjacent retroperitoneal blood seen in the right-side of the pelvis. There is no hematoma in the opposite-left side of the pelvis. IMPRESSION: There is a prominent hematoma in the right-side of the pelvis involving the iliacus and psoas and danita opsoas extending down through the pelvis, anterior to the hip and throughout the length of the ileo p soas tendon sheath down to the level of the lesser trochanter of the right hip. There is also mild-m oderate ipsilateral right pelvic retroperitoneal hemorrhage. No obvious acute fractures. Bilateral hip prostheses noted. Preliminary report from [facility] was reviewed RADIATION DOSE DELIVERED: 1,170.88mGy.cm Total DLP DATA REPOSITORY: All CT scans at this facility are submitted to the National Radiology Data Registry (NRDR) Dose Index Registry (DIR) with the [employer] ([employer]). RADIATION OPTIMIZATION: All CT scans at this facility use at least one of these dose optimization te chniques: automated exposure control; mA and/or kV adjustment per patient size (includes targeted exa ms where dose is matched to clinical indication); or iterative reconstruction.
--- NOTE | 2025-02-04 03:50 | DI.VRAD_ITS ---
PROCEDURE INFORMATION: Exam: CT Right Lower Extremity With Contrast, Thigh Exam date and time: 02/04/2025 2:39 AM Age: 79 years old Clinical indication: Pain and injury or trauma; Right; Injury date: 02/04/25; Prior surgery; Surgery date: 6+ months; Surgery type: Hip replacement; Thigh pain/swelling; Twisting injury; Anticoagulant TECHNIQUE: Imaging protocol: CT of the right lower extremity with intravenous contrast was performed. Exam focused on the thigh. Radiation optimization: All CT scans at this facility use at least one of these dose optimization techniques: automated exposure control; mA and/or kV adjustment per patient size (includes targeted exams where dose is matched to clinical indication); or iterative reconstruction. Contrast material: [id number]; Contrast volume: 100 ml; Contrast route: INTRAVENOUS (IV); COMPARISON: CR XR PELVIS AP 11/28/2022 1:15 PM FINDINGS: Bones/joints: Bilateral hip replacements. No acute fracture. Hip is normally aligned. Moderate degenerative changes in all 3 compartments of the of the knee. 1.5 cm well-defined lucent lesion seen in the acetabulum similar appearance to the prior study. Soft tissues: Subcutaneous edema is seen throughout the lower thighs and upper legs. A hematoma is seen in the right ileus psoas muscle measuring approximately 6.6 x 4.4 cm on axial imaging . Craniocaudad extent of the hematoma is not image on this exam. Small right inguinal hernia containing fat. Vasculature: Atherosclerotic disease. Retroperitoneal space: Mild retroperitoneal blood is seen in the pelvis. No active bleeding seen. Reproductive: Left hydrocele. IMPRESSION: Right ileus psoas hematoma and mild right pelvic retroperitoneal hemorrhage. No acute fracture or dislocation. Dictated and Authenticated by: Amber Pickens MD. Orderin Iván Mccord MD
[2025-02-04] MEDS: ACETAMINOPHEN 1,000 MG/100 ML BAG 400 MG IVPB (04:14)
--- NOTE | 2025-02-04 04:54 | W.PCEDHO ---
Registration Status: Primary Language: Preferred Language: ED Information & Data Chief Complaint Orthopedic 02/04/25 01:22 Chief Complaint Orthopedic 02/04/25 01:20 Triage Note PT states that he was 02/04/25 01:20 getting into bed and his R foot got tangled and PT started having R hip/upper leg pain Medical / Surgical History (Last Reviewed 02/04/25 @ 01:48 by Flex Minor MD) Personal history of pulmonary embolism Body mass index (BMI) 50.0-59.9, adult Venous stasis ulcer of left lower extremity HNP (herniated nucleus pulposus), lumbar Relative polycythemia Failed total hip arthroplasty Heart failure with preserved ejection fraction CAD (coronary artery disease) Cholangitis Nephrolithiasis Phimosis Pulmonary embolism Hx of pulmonary artery thrombosis Venous stasis ulcer of ankle limited to breakdown of skin without varicose veins Anticoagulant long-term use Atrial fibrillation (Last Reviewed 02/04/25 @ 01:48 by Flex Minor MD) H/O bilateral hip replacements Most Recent Vital Signs Temperature 36.1 C L 02/04/25 01:20 Temperature Source Temporal Artery Scan 02/04/25 01:20 Pulse 74 02/04/25 04:46 Pulse 76 02/04/25 04:46 Respiratory Rate 13 02/04/25 04:46 Blood Pressure 169/76 H 02/04/25 04:46 Blood Pressure Mean 107 02/04/25 04:46 Pulse Oximetry 96 02/04/25 04:46 Oxygen Delivery Method Room Air 02/04/25 01:20 Oxygen Flow Rate 0 02/04/25 01:20 Pain Level 0 02/04/25 01:20 Allergies metformin Adverse Reaction (Verified 02/04/25 01:24) DIARRHEA Active Medications Generic Name Dose Route Start Last Admin Trade Name Freq PRN Reason Stop Dose Admin Iohexol 100 ml 02/04/25 03:15 02/04/25 03:08 Omnipaque 350 Mg/Ml 100 Ml Btl IJ 03/06/25 23:59 100 ml DIRECTED KYLEE Administration Sodium Chloride 50 ml 02/04/25 03:15 02/04/25 03:09 Normal Saline - Diluent 50 Ml Vial IJ 50 ml .FOR DI USE KYLEE Administration IV IV Catheter Type [Right Diffusics Forearm] IV Catheter Gauge [Right 20 Forearm] Diagnostics 02/04/25 02/04/25 02/04/25 Range/Units 18:00 14:00 10:00 WBC (4.4-10.8) 10^3/uL RBC (4.36-5.78) 10^6/uL Hgb Pending Pending Pending (13.5-17.5) g/dL Hct Pending Pending Pending (40.0-50.0) % MCV (80-95) fL MCH (27.0-33.0) pg MCHC (32.0-36.0) % RDW (11.8-14.1) % Plt Count (130-400) 10^3/uL MPV (8.0-11.0) fL Sodium (136-145) mmol/L Potassium (3.5-5.1) mmol/L Chloride (98-107) mmol/L Carbon Dioxide (21.0-32.0) mmol/L Anion Gap (3-11) mmol/L BUN (7-18) mg/dL Creatinine (0.70-1.30) mg/dL Est GFR (CKD-EPI 2020) (mL/min/1.73m2) Glucose (74-106) mg/dL Calcium (8.5-10.1) mg/dL ABO/Rh Antibody Screen 02/04/25 02/04/25 02/04/25 Range/Units 06:00 04:27 02:11 WBC 11.53 H (4.4-10.8) 10^3/uL RBC 4.67 (4.36-5.78) 10^6/uL Hgb Pending 14.9 (13.5-17.5) g/dL Hct Pending 45.9 (40.0-50.0) % MCV 98 H (80-95) fL MCH 31.9 (27.0-33.0) pg MCHC 32.5 (32.0-36.0) % RDW 14.9 H (11.8-14.1) % Plt Count 237 (130-400) 10^3/uL MPV 9.1 (8.0-11.0) fL Sodium 138 (136-145) mmol/L Potassium 4.0 (3.5-5.1) mmol/L Chloride 104 (98-107) mmol/L Carbon Dioxide 26.2 (21.0-32.0) mmol/L Anion Gap 7.8 (3-11) mmol/L BUN 29 H (7-18) mg/dL Creatinine 0.8 (0.70-1.30) mg/dL Est GFR (CKD-EPI 2020) 91.15 (mL/min/1.73m2) Glucose 114 H (74-106) mg/dL Calcium 9.8 (8.5-10.1) mg/dL ABO/Rh Pending Antibody Screen Pending Intake and Output - 24 Hour Total 02/04/25 01:07 thru 02/04/25 04:30 Intake Total 100 Output Total 250 Balance -150 Weight 133.3 kg Intake: IV 100 Output: Urine 250 Falls Risk Assessment History of Falls Previous History 02/04/25 01:22 Contributing Factors Impairments 02/04/25 01:22 Ambulatory Aids Uses ambulatory device 02/04/25 01:22 Tubes/Lines None 02/04/25 01:22 Gait Evaluation W/no contributing factors 02/04/25 01:22 Cognition No cognitive impairment 02/04/25 01:22 Fall Total Score 43 02/04/25 01:22 Level of Risk Moderate Risk 02/04/25 01:22 Notes 02/04/25 02:22 Nursing Notes by Brandon Daniel positive pulse in R foot with doppler Nursing Note: Initialized on 02/04/25 02:22 - END OF NOTE v v v v v v v v v Sending and/or Receiving Nurses: Please use comment section below to note any information pertinent to the patient hand-off not included above. Information / Comments:No questions Report received from:Brandon Daniel
--- NOTE | 2025-02-04 06:13 | W.PM.HP.N ---
Date of service: 02/04/25 Time of Service: 06:13 Assessment and Plan Assessment and plan (1) Hematoma of right iliopsoas muscle: Start date: 02/04/25 Status: Acute Assessment and plan: This is a 79-year-old gentleman who had an injury to his right leg 3 days ago while trying to get into bed. At first it improved and then worsened just prior to presentation. He does have to lift his legs to get into bed with the device he provides us. There was no fall. He is on Xarelto. CT imaging of his hip did reveal iliopsoas hematoma with mild retroperitoneal hemorrhage extending. This did not appear to be an operable problem and patient will have his Xarelto held for now with PT evaluation for ambulation. We should trend CBC and if worsening anemia, consider surgical consultation. Patient Xarelto will be held for now but long-term should review risk-benefit of continuation of therapy. This can be discussed with his PCP and group home paraprofessional. He does have atrial fibrillation and a previous PE. (2) Retroperitoneal bleeding: Start date: 02/04/25 Status: Acute Assessment and plan: This is mild and repeat imaging may be appropriate with patient on Xarelto now being held. Trend CBCs. Surgical consultation if needed. (3) Atrial fibrillation: Assessment and plan: Chronic the patient stable and cardiac monitoring not warranted at this time. Continue outpatient medical therapy. (4) Bilateral leg weakness: Status: Chronic Assessment and plan: Patient has problems with chronic peripheral edema with his obesity though he has been losing weight. PT evaluation and continue using walker for ambulation. (5) Type 2 diabetes mellitus without complications: Status: Chronic Assessment and plan: Glucometer measurements before meals and bedtime with sensitive sliding scale coverage while hospitalized. Long-term the patient is only on a GLP-1 agonist therapy given weekly. (6) CAD (coronary artery disease): Status: Chronic Assessment and plan: Continue outpatient medical therapy. (7) Hypertension: Status: Chronic Assessment and plan: Continue outpatient medical therapy. (8) TOM (obstructive sleep apnea): Status: Chronic Assessment and plan: If patient is on CPAP or BiPAP at night this should be used during his hospital stay with his home device. (9) Venous (peripheral) insufficiency: Status: Chronic Assessment and plan: Continue arslan wraps and nurse to reevaluate. For DVT prophylaxis patient can be on sequential compression stockings. (10) HFrEF (heart failure with reduced ejection fraction): Status: Chronic Assessment and plan: Continue outpatient medical therapy. Patient needs an updated echocardiogram at this to be done as an outpatient. History of Present Illness History of Present Illness Chief Complaint: Right lateral thigh pain after injury getting out of bed with difficult amb Narrative: This is a 79-year-old male patient who is morbidly obese and has difficulty with ambulation with bilateral lower extremity edema with wraps. He does use a walker for ambulation and often when getting in bed uses a loop to lift his legs into bed. 3 nights prior to presentation patient had injury to his right thigh which felt like a twisting injury. The first night after the injury he felt slightly better. He had no falls. He lives with his . In the ED he was able to stand with his walker but he had acute worsening of his pain the day of presentation. He is on anticoagulation, Xarelto, for atrial fibrillation and evaluation with CT in ED did reveal an acute iliopsoas hematoma with mild right pelvic retroperitoneal hemorrhage. Because of his anticoagulation and question of stability of this hematoma, the patient was admitted for observation. CBC will be trended and repeat CT may be obtained if evidence of active bleeding with drop in hemoglobin along with surgical consultation to review this case if necessary. This is a nonoperable problem. The Xarelto will be held for now. Risk-benefit of holding anticoagulation was reviewed with the patient. Long-term this should self resolve and stabilize with the patient's problems with ambulation risk of injury will be ongoing. Reevaluation of anticoagulant should be discussed with his PCP. Patient states that he is a full code. [facility] All Active Problems (Updated 02/04/25 @ 06:40 by Delroy Downs) Retroperitoneal bleeding (Acute) Hematoma of right iliopsoas muscle (Acute) Palliative care encounter (Acute) Weakness (Acute) Generalized weakness (Acute) Shoulder pain (Acute) Edema of lower extremity (Acute) Pressure sore on buttocks (Acute) At high risk for skin breakdown (Acute) Bilateral leg weakness (Chronic) Weight loss due to medication (Acute) Chest pain (Acute) Physician orders for life-sustaining treatment (POLST) form indicates patient wish for [id number] status (Acute) Advance care planning (Acute) Palliative care patient (Acute) HFrEF (heart failure with reduced ejection fraction) (Chronic) Ambulatory dysfunction (Acute) Bilateral leg weakness (Acute) Lumbago (Chronic) Non compliance with medical treatment (Acute) Trochanteric bursitis, left hip (Acute) H/O surgical procedure (Chronic) a. Bilateral hip replacement b. Nephrolithotomy c. Right ureteral stent placement d. Coronary artery stent placement 2006 e. Adult circumcision f. Colonoscopy 11/2013 History of revision of total replacement of left hip joint (Acute 11/01/20) Acetabular revision with head/liner exchange for fractured femoral head prosthesis. Pure hypercholesterolemia, unspecified (Acute) Cerumen impaction (Acute) Type 2 diabetes mellitus without complications (Chronic) Neoplasm of unspecified behavior of bone, soft tissue, and skin (Acute) Nasal dryness (Acute) Acute cholecystitis (Acute 09/07/14) Morbid obesity (Chronic) CAD (coronary artery disease) (Chronic) a. coronary artery stent placement 2006 Hypertension (Chronic) TOM (obstructive sleep apnea) (Chronic) Personal history of kidney stones (Chronic) a. uric acid stones Venous stasis ulcer (Chronic) Venous (peripheral) insufficiency (Chronic) Medical History Personal history of pulmonary embolism Body mass index (BMI) 50.0-59.9, adult Venous stasis ulcer of left lower extremity HNP (herniated nucleus pulposus), lumbar Relative polycythemia Failed total hip arthroplasty Heart failure with preserved ejection fraction CAD (coronary artery disease) Cholangitis Nephrolithiasis Phimosis Pulmonary embolism Hx of pulmonary artery thrombosis Venous stasis ulcer of ankle limited to breakdown of skin without varicose veins Anticoagulant long-term use Atrial fibrillation Surgical History H/O bilateral hip replacements Social History Smoking/Tobacco Use Status: Former Tobacco Use Smoking risk assessment performed?: Yes Alcohol Intake: never Drug use: Never Substance use type: does not use Household members: spouse Housing: house What is your relationship status?: Panel score (0-1 are the most socially isolated patients): 1 Do you feel safe at home: Yes Do you feel safe in your relationship?: Yes Meds Allergies and Home Medications Allergies Allergy/AdvReac Type Severity Reaction Status Date / Time metformin AdvReac DIARRHEA Verified 02/04/25 01:24 Home Medications ?Medication ?Instructions ?Recorded ?Confirmed ?Type lisinopril 40 mg tablet 20 mg PO DAILY 09/07/14 02/04/25 History nitroglycerin 0.4 mg sublingual 0.4 mg sublingual PRN PRN Chest 09/07/14 12/13/24 History tablet Pain allopurinol 300 mg tablet 300 mg PO DAILY 12/30/16 02/04/25 History potassium citrate 10 mEq (1,080 20 meq PO BID 12/30/16 02/04/25 History mg) tablet,extended release Acetaminophen [Tylenol] 650 mg PO Q4H PRN PRN ##0 11/06/21 02/04/25 Rx docusate sodium 100 mg capsule 100 mg PO TID PRN PRN #0 caps 08/26/22 02/04/25 Rx (Colace) polyethylene glycol 3350 17 gram 17 g PO DAILY PRN PRN Constipation 08/26/22 12/13/24 Rx oral powder packet #0 ea nystatin 100,000 unit/gram topical 1 applic topical TID 11/28/22 12/13/24 History powder cholecalciferol (vitamin D3) 125 125 mcg PO DAILY 12/18/22 12/13/24 History mcg (5,000 unit) capsule betamethasone dipropionate 0.05 % 0.05 applic topical DAILY 02/24/24 12/13/24 History topical cream ezetimibe 10 mg tablet 10 mg PO DAILY 02/24/24 02/04/25 History rivaroxaban 20 mg tablet (Xarelto) 20 mg PO DAILY 02/24/24 02/04/25 History melatonin 3 mg capsule 3 mg PO HS PRN #30 caps 02/27/24 12/13/24 Rx isosorbide dinitrate 30 mg tablet 30 mg PO BID 08/20/24 02/04/25 History metoprolol succinate 200 mg 200 mg PO DAILY 08/20/24 02/04/25 History tablet,extended release 24 hr tirzepatide 10 mg/0.5 mL 10 mg subcut QWEEK 08/21/24 02/04/25 History subcutaneous pen injector (Rayna) furosemide 40 mg tablet 20 mg (1/2 x 40 mg) PO QAM #0 tabs 08/25/24 02/04/25 Rx Exam Narrative Exam Narrative: General: Patient appears appropriate for age, moderate to severely obese having lost weight recently, alert and oriented x 3 but hard of hearing. He is in no acute distress lying in bed without moving. HEENT: Normocephalic, coarsened facial features, eyes with pupils equal and reactive to light symmetrically, extraocular movement intact and sclera anicteric. Oral mucosa moist with fair dentition though missing some teeth. Neck: Supple without JVD. Back: Stooped posture without CVA tenderness. Lungs: Fair aeration and clear to auscultation percussion with no focalizing rales or rhonchi. No expiratory wheeze. Heart: Irregular rhythm with normal rate. Holosystolic murmur apex, no gallop or rub. Abdomen: Obese contour, soft and nontender to palpation without palpable hepatosplenomegaly. Bowel sounds positive all quadrants. Genitalia/rectal: Exam deferred. Extremity: Nonpitting edema both lower extremities with tight Arslan wraps which appear to be Unna boots but patient denied that these are Unna boots. No external bruising of the right lower extremity. Right hip is tender to movement. Fair capillary refill bilaterally. Skin: Chronic changes of the lower extremities with arslan wraps in place. Actinic changes over most of the sun exposed skin. Normal color. Dry. Neuro: Cranial nerves II through XII gross intact the patient is hard of hearing. No focalized motor deficits of patient's lower extremity weakness. No tremor. Psych: Flattened affect but normal mood. Slow monotonous tone to voice. No abnormal thought processes the patient was just awakened and stated he was having hallucinations as he awakened. Remote and recent memory appear to be grossly intact. Results Imaging Imaging Studies: Exam: CT Right Lower Extremity With Contrast, Thigh Exam date and time: 02/04/2025 2:39 AM Age: 79 years old Clinical indication: Pain and injury or trauma; Right; Injury date: 02/04/25; Prior surgery; Surgery date: 6+ months; Surgery type: Hip replacement; Thigh pain/swelling; Twisting injury; Anticoagulant TECHNIQUE: Imaging protocol: CT of the right lower extremity with intravenous contrast was performed. Exam focused on the thigh. Radiation optimization: All CT scans at this facility use at least one of these dose optimization techniques: automated exposure control; mA and/or kV adjustment per patient size (includes targeted exams where dose is matched to clinical indication); or iterative reconstruction. Contrast material: [id number]; Contrast volume: 100 ml; Contrast route: INTRAVENOUS (IV); COMPARISON: CR XR PELVIS AP 11/28/2022 1:15 PM FINDINGS: Bones/joints: Bilateral hip replacements. No acute fracture. Hip is normally aligned. Moderate degenerative changes in all 3 compartments of the of the knee. 1.5 cm well-defined lucent lesion seen in the acetabulum similar appearance to the prior study. Soft tissues: Subcutaneous edema is seen throughout the lower thighs and upper legs. A hematoma is seen in the right ileus psoas muscle measuring approximately 6.6 x 4.4 cm on axial imaging . Craniocaudad extent of the hematoma is not image on this exam. Small right inguinal hernia containing fat. Vasculature: Atherosclerotic disease. Retroperitoneal space: Mild retroperitoneal blood is seen in the pelvis. No active bleeding seen. Reproductive: Left hydrocele. IMPRESSION: Right ileus psoas hematoma and mild right pelvic retroperitoneal hemorrhage. No acute fracture or dislocation. Labs 02/04/25 02:11 02/04/25 02:11 Labs: Laboratory Results - last 24 hr 02/04/25 02/04/25 02:11 04:27 WBC 11.53 H RBC 4.67 Hgb 14.9 Hct 45.9 MCV 98 H MCH 31.9 MCHC 32.5 RDW 14.9 H Plt Count 237 MPV 9.1 Sodium 138 Potassium 4.0 Chloride 104 Carbon Dioxide 26.2 Anion Gap 7.8 BUN 29 H Creatinine 0.8 Est GFR (CKD-EPI 2020) 91.15 Glucose 114 H Calcium 9.8 ABO/Rh O Positive Antibody Screen NEGATIVE Last Vital Signs Temp 36.4 C L 02/04/25 04:57 Pulse 78 02/04/25 04:57 Resp 22 02/04/25 04:57 BP 135/83 02/04/25 04:57 Pulse Ox 99 02/04/25 04:57 Time Spent Time spent with Patient: >75 minutes Time was spent: preparing to see the patient(eg.review tests), obtaining and/or reviewing separately otained hiistory, ordering medications,tests, procedures, indepentently interpreting results, counseling the patient and care coordination
[2025-02-04 07:24] LABS: COVID-19 PCR Negative (Negative); Influenza A PCR Negative (Negative); Influenza B PCR Negative (Negative); RSV PCR Negative (Negative)
[2025-02-04 07:34] LABS: Source Nasopharynx
[2025-02-04 08:13] LABS: HCT 45.5 % (40.0-50.0); MCV 97 fL (80-95); MPV 9.2 fL (8.0-11.0); Platelet Count 266 10^3/uL (130-400); RBC 4.69 10^6/uL (4.36-5.78); RDW-SD 53.4 fL; WBC 9.85 10^3/uL (4.4-10.8)
[2025-02-04 08:20] LABS: INR 1.1 (0.9-1.1); Prothrombin Time 10.9 sec (9.1-11.1)
[2025-02-04] MEDS: Furosemide 40 MG TAB 20 MG PO (08:20)
[2025-02-04] MEDS: Metoprolol CR 100 MG TABCR 200 MG PO (08:20)
[2025-02-04] MEDS: Ezetimibe 10 MG TAB PO (08:20)
[2025-02-04] MEDS: Allopurinol 300 MG TAB PO (08:20)
[2025-02-04] MEDS: Lisinopril 20 MG TAB PO (08:21)
[2025-02-04] MEDS: Normal Saline Flush 10 ML SYR IVP ×2 (08:21→20:04)
[2025-02-04] MEDS: Isosorbide Dinitrate 10 MG TAB 30 MG PO ×2 (09:19→20:03)
[2025-02-04] MEDS: Nystatin POWDER 15 GM JAR TP ×3 (09:21→20:05)
[2025-02-04] MEDS: Acetaminophen 325 MG TAB PO ×2 (10:03→20:03)
[2025-02-04] MEDS: Potassium Citrate 1080 MG TABCR 2160 MG PO ×2 (10:36→20:04)
[2025-02-04 11:07] LABS: HCT 43.9 % (40.0-50.0); HGB 14.2 g/dL (13.5-17.5)
--- NOTE | 2025-02-04 12:31 | PHA.REVIEW2 ---
Pharmacy Admission Review Admission Clinical Review Admission Pharmacy Review: Retroperitoneal bleeding (Acute) Hematoma of right iliopsoas muscle (Acute) metformin Adverse Reaction (Verified 02/04/25 01:24) DIARRHEA Resuscitation Status Full Code Height 5 ft 10 in Weight 132.131 kg Pharmacy Admission Review Renal Dosing Renal Dosing: BUN 29 mg/dL (7-18) H 02/04/25 02:11 Creatinine 0.8 mg/dL (0.70-1.30) 02/04/25 02:11 Medications needing adjustments: Reviewed (CrCl 84.57 mL/min) List of meds needing interventions: Current medications are okay Anticoagulation Anticoagulation: Hgb 14.2 g/dL (13.5-17.5) 02/04/25 11:00 Hct 43.9 % (40.0-50.0) 02/04/25 11:00 Plt Count 266 10^3/uL (130-400) 02/04/25 07:35 INR 1.1 (0.9-1.1) 02/04/25 07:35 Creatinine 0.8 mg/dL (0.70-1.30) 02/04/25 02:11 DVT Prophylaxis: Reviewed (SCDs - hematoma. Takes Xarelto at home) Relevant Labs Relevant Labs: Sodium 138 mmol/L (136-145) 02/04/25 02:11 Potassium 4.0 mmol/L (3.5-5.1) 02/04/25 02:11 Chloride 104 mmol/L (98-107) 02/04/25 02:11 Electrolytes, C-Reactive P, ESR: Reviewed DM Control DM Control: Glucose 114 mg/dL (74-106) H 02/04/25 02:11 Finger Stick Blood Glucose 121 1151 Finger Stick Blood Glucose 121 1111 Finger Stick Blood Glucose 121 1111 Finger Stick Blood Glucose 99 0820 Finger Stick Blood Glucose 99 0820 Finger Stick Blood Glucose 99 0820 DM Control: Reviewed Insulin Dosing, Diabetic Medication: Has order for SS insulin Cardiac Review BP, HR, EF%: Reviewed (HR and BP WNL) List meds needing interventions: Has orders for furosemide 20mg daily, isosorbide dinitrate 30mg BID, lisinopril 30mg daily and metoprolol XL 200mg daily QTc Review QTc: Reviewed (451 from 08/20/24 - most recent EKG on file) IV to PO Switch IV Medications: Reviewed Home Meds Home Med List reviewed: Reviewed Relevent Home Meds Not ordered & why?: Xarelto (on hold - hematoma), betamethasone cream, vitamin D3, Mounjaro (weekly) Current Meds Current Medication Order Review: Intervened Comments: Added 2nd PRN to melatonin order per pharmacy protocol Changed nitroglycerin frequency from PRN to q5h MIN PRN x 3
--- NOTE | 2025-02-04 12:49 | CHAPLAIN ---
Jimbo was resting in bed when I visited. His Lisa was with him. Jimbo said that he's amazed that as soon as he gets into one of our hospital beds, his pain goes away. He told me that he's here to see what's going on and if things don't get better he'll need to go to a SNF, which he dreads. Lisa told him he was getting ahead of himself and no one has mentioned anything about a SNF. She said Jimbo's been home and doing well for six months. He said he had an accident while using some PT equipment (a hoop) to get his feet back into bed. Jimbo and Lisa are both L[employer]. I offer to put a sign on the door asking for no interruptions if he wanted time to meditate and any time, but Jimbo said he wouldn't need that.
[2025-02-04 13:41] LABS: HCT 43.2 % (40.0-50.0); HGB 13.8 g/dL (13.5-17.5); MCH 31.4 pg (27.0-33.0); MCHC 31.9 % (32.0-36.0); MCV 98 fL (80-95); MPV 9.4 fL (8.0-11.0); Platelet Count 258 10^3/uL (130-400); RBC 4.39 10^6/uL (4.36-5.78); RDW 14.9 % (11.8-14.1); RDW-SD 54.3 fL; WBC 10.11 10^3/uL (4.4-10.8)
--- NOTE | 2025-02-04 13:50 | PT.INIE ---
PT Notes Visit Reasons: Iliopsoas Hematoma;Mild Retroperitoneal Hemorrhage Inpatient Physical Therapy Evaluation Date: 02/04/25 Referring Doctor: Delroy Downs PT Orders: PT CONSULT: D/C Non PT Dependent Precautions: n/a Patient Profile/Admitting Diagnosis: Iliopsoas Hematoma, Mild retroperitoneal hemorrhage Subjective: Pt admitted after experiencing increased LE swelling and mobility deficits. He states he lives in [facility] with his . His baseline mobility includes getting up from his bed independently and transferring into his wheelchair with his RW. He does walk but this is only with his following with his wheelchair. He has been able to take about 32 steps at one time recently with a wheelchair follow. He does not have to perform any steps at home. He has a ramp to enter. 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 AM-PAC 6 clicks Basic Mobility Inpatient Short Form: Raw Score: 13 CMS Score: 64.91% Informed Consent/Education: Patient instructed in purpose of PT consult and plan of care. Assessment: Patient is currently below his baseline functional levels and will require short term rehab prior to returning home. He needed max assistance to get out of the bed which is the biggest concern for him returning home. He has minimal trunk and hip flexion strength which he will be able to make progress with at short term rehab. He is able to walk about 5 feet and does have a wheelchair at home. He will not have to manage any stairs once returning home from rehab as he does have a ramp. He and his both seem agreeable to this plan. Patient is assessed as a Moderate 84132 complexity based on the following: History: Moderate Examination: Moderate Presentation: Moderate Decision Making: Moderate Goals: Goals X1 week 1. Supine-Sit w/min assist 2. Sit-Supine w/min assist 3. Sit-Stand w/SBA 4. Stand-Sit w/SBA 5. Bed-Chair w/SBA 6. Chair-Bed w/SBA 7. Gait - ambulate 20 ft w/RW and wheelchair follow Plan of Care/Treatment Plan: 1-2x/day, 7 days/week x 1 week. Plan of care has been reviewed with the PLUSH CUTTER providing the service under Physical Therapy direction. Initiate Physical Therapy intervention for strengthening, bed mobility, transfers, gait, stairs, balance training, use of assistive device. DISCHARGE RECOMMENDATIONS: D/c to short term rehab prior to returning home [x] SNF for continued rehabilitation TREATMENT CODE/TIME: Mod complexity eval x1 (54952) - 42 min
--- NOTE | 2025-02-04 14:04 | PDOC.CMIN ---
Date of service: 02/04/25 Time of Service: 14:04 Care Management Initial Assmt Initial Assessment Reason for Hospitalization: Iliopsoas hematoma Functional Status/Living Situation Patient Presentation: Jimbo was lying in bed when CM met with him. He reported that he is tired and was hoping to nap, but was agreeable to having a conversation prior to his nap. Jimbo reported that he lives with his , and is generally able to care for himself, using a FWW, wheelchair and commode, but in the past four days has had a notable decline in functioning. He was evaluated by PT today, who recommended SNF. CM discussed this with Jimbo, who agreed to have referrals sent to facilities including [facility] (first choice), [facility] and [facility]. iJmbo reported that he has been to several facilities, and prefers to have a private room; CM informed him that all facilities have semi private rooms, but that he can discuss his room choice with the facility directly, once accepted. CM sent the referrals, as requested. CM will continue to follow. 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) Instrumental Activities of Daily Living (ADLs): Independent Medications Medication Management: No Issues/Barriers identified Physical Functioning/Mobility Assistive Device: FWW, W/C, commode Advance Directives Advance Directives: Do you have an Advance Directive: Y 02/25/24 00:50 AD On File at [facility]: N 02/04/25 08:26 Date Asked 02/04/25 02/04/25 08:26 AD Date Reviewed COLST On File at [facility] Yes 02/24/24 19:55 COLST Date Scanned 03/21/23 02/24/24 19:55 Code Status Resuscitation Status Full Code Insurance Coverage/Financial Issues Insurance: [facility] BC/BS supplement Care Team Visit Care Team Role Provider Type Delores Omer APRN MD [facility] STAFF PHYSICIAN Ginette Villavicencio Primary Care Provider NON-[facility] STAFF PHYSICIAN InPatient Indio Menard Other Providers OTHER Flex Minor MD Emergency Provider [facility] STAFF PHYSICIAN Delroy Downs Admit Provider NON-[facility] STAFF PHYSICIAN Attending Provider Discharge Potential Discharge Needs: PCP F/U Appt and Other (SNF placement) Anticipated Barriers to Discharge: Bed availability Patient/Family Education Needs: Review discharge instructions, discuss Ask Me Three Transportation: RCT RCT Transportation: Wheel chair van Plan: Anticipate Jimbo will transfer to a facility for short term rehab once medically stable, and once a bed becomes available. Referrals were sent to [facility], [facility], [facility], and [facility]. He will likely transport via RCT w/c van, depending on his mobility at the time of transfer. He will follow up with his PCP and discharge plan of care. CM will continue to follow. Social Determinants of Health Screening Social Determinants of health last assessed in clinic: 02/04/25 Will the Patient Participate in the Screening?: Yes Do you worry about having a steady place to live?: yes What is your living situation today?: I have housing today, but am worried about losing it Problems where you live: no known problems In the past 12 months, have you had to go without electric, gas, oil or water in your home?: no 1. Within the past 12 months, we worried whether our food would run out before we got money to buy more.: Don't know/refused 2. Within the past 12 months, the food we bought just didn't last and we didn't have money to get more.: Don't know/refused Has lack of transportation kept you from medical appointments or from doing things needed for daily living?: no Has anyone in your life made you feel unsafe or unsupported?: no How hard is it for you to pay for the very basics like food, housing, medical care, and heating? Would you say it is:: Not hard at all Do you want help finding or keeping work or a job?: I do not need or want help If for any reason you need help with day-to-day activities such as bathing, preparing meals, shopping, managing finances, etc., do you get the help you need?: I get all the help I need How often do you feel lonely or isolated from those around you?: Never Do you speak a language other than [place] at home?: No Does the patient want assistance with any of the above?: No Health Related Social Needs Health related social needs: housing instability, housed, with risk of homelessness ([id number]) [facility] All Active Problems (Updated 02/04/25 @ 06:40 by Delroy Downs) Retroperitoneal bleeding (Acute) Hematoma of right iliopsoas muscle (Acute) Palliative care encounter (Acute) Weakness (Acute) Generalized weakness (Acute) Shoulder pain (Acute) Edema of lower extremity (Acute) Pressure sore on buttocks (Acute) At high risk for skin breakdown (Acute) Bilateral leg weakness (Chronic) Weight loss due to medication (Acute) Chest pain (Acute) Physician orders for life-sustaining treatment (POLST) form indicates patient wish for [id number] status (Acute) Advance care planning (Acute) Palliative care patient (Acute) HFrEF (heart failure with reduced ejection fraction) (Chronic) Ambulatory dysfunction (Acute) Bilateral leg weakness (Acute) Lumbago (Chronic) Non compliance with medical treatment (Acute) Trochanteric bursitis, left hip (Acute) H/O surgical procedure (Chronic) a. Bilateral hip replacement b. Nephrolithotomy c. Right ureteral stent placement d. Coronary artery stent placement 2006 e. Adult circumcision f. Colonoscopy 11/2013 History of revision of total replacement of left hip joint (Acute 11/01/20) Acetabular revision with head/liner exchange for fractured femoral head prosthesis. Pure hypercholesterolemia, unspecified (Acute) Cerumen impaction (Acute) Type 2 diabetes mellitus without complications (Chronic) Neoplasm of unspecified behavior of bone, soft tissue, and skin (Acute) Nasal dryness (Acute) Acute cholecystitis (Acute 09/07/14) Morbid obesity (Chronic) CAD (coronary artery disease) (Chronic) a. coronary artery stent placement 2006 Hypertension (Chronic) TOM (obstructive sleep apnea) (Chronic) Personal history of kidney stones (Chronic) a. uric acid stones Venous stasis ulcer (Chronic) Venous (peripheral) insufficiency (Chronic) Medical History Personal history of pulmonary embolism Body mass index (BMI) 50.0-59.9, adult Venous stasis ulcer of left lower extremity HNP (herniated nucleus pulposus), lumbar Relative polycythemia Failed total hip arthroplasty Heart failure with preserved ejection fraction CAD (coronary artery disease) Cholangitis Nephrolithiasis Phimosis Pulmonary embolism Hx of pulmonary artery thrombosis Venous stasis ulcer of ankle limited to breakdown of skin without varicose veins Anticoagulant long-term use Atrial fibrillation Surgical History H/O bilateral hip replacements Social History Smoking/Tobacco Use Status: Former Tobacco Use Smoking risk assessment performed?: Yes Alcohol Intake: never Drug use: Never Substance use type: does not use Household members: spouse Housing: house What is your relationship status?: Panel score (0-1 are the most socially isolated patients): 1 Do you feel safe at home: Yes Do you feel safe in your relationship?: Yes
[2025-02-04 14:20] LABS: HCT 45.9 % (40.0-50.0)
[2025-02-04 18:17] LABS: HCT 46.1 % (40.0-50.0); MCH 31.6 pg (27.0-33.0); MCHC 32.5 % (32.0-36.0); MCV 97 fL (80-95); MPV 9.1 fL (8.0-11.0); Platelet Count 253 10^3/uL (130-400); RBC 4.75 10^6/uL (4.36-5.78); RDW 14.8 % (11.8-14.1); RDW-SD 52.9 fL; WBC 10.04 10^3/uL (4.4-10.8)
[2025-02-05 06:57] LABS: ALT 27 U/L (16-63); AST 34 U/L (15-37); Albumin 2.8 g/dL (3.4-5.0); Alkaline Phosphatase 97 U/L (46-116); Anion Gap 5.1 mmol/L (3-11); BUN 24 mg/dL (7-18); Bilirubin, Total 1.5 mg/dL (0.2-1.0); CO2 28.9 mmol/L (21.0-32.0); CREATININE 0.6 mg/dL (0.70-1.30); Calcium 9.6 mg/dL (8.5-10.1); Chloride 108 mmol/L (98-107); Estimated GFR 99.42 (mL/min/1.73m2); Glucose 102 mg/dL (74-106); Potassium 3.9 mmol/L (3.5-5.1); Sodium 142 mmol/L (136-145); Total Protein 6.4 g/dL (6.4-8.2)
[2025-02-05] MEDS: Acetaminophen 325 MG TAB PO ×2 (08:25→20:26)
[2025-02-05] MEDS: Potassium Citrate 1080 MG TABCR 2160 MG PO ×2 (08:26→20:26)
[2025-02-05] MEDS: Furosemide 40 MG TAB 20 MG PO (08:26)
[2025-02-05] MEDS: Ezetimibe 10 MG TAB PO (08:27)
[2025-02-05] MEDS: Normal Saline Flush 10 ML SYR IVP ×2 (08:28→20:27)
[2025-02-05] MEDS: Nystatin POWDER 15 GM JAR TP ×2 (08:28→20:28)
[2025-02-05] MEDS: Allopurinol 300 MG TAB PO (08:28)
[2025-02-05] MEDS: Metoprolol CR 100 MG TABCR 200 MG PO (08:31)
[2025-02-05] MEDS: Isosorbide Dinitrate 10 MG TAB 30 MG PO ×2 (08:31→20:27)
[2025-02-05] MEDS: Lisinopril 20 MG TAB PO (08:32)
[2025-02-05 08:33] VITALS: BP 131/75; PULSE 71; RESP 16; TEMP 36.2; O2SAT 98
[2025-02-05 13:24] VITALS: BP 139/69; PULSE 70; RESP 16; TEMP 36.2; O2SAT 98
--- NOTE | 2025-02-05 13:53 | W.PM.PROGNOT ---
Date of Service Date of service: 02/05/25 Time of Service: 13:53 Assessment and Plan Assessment and plan (1) Hematoma of right iliopsoas muscle: Status: Acute Assessment and plan: on Xarelto which was placed on hold on admission. CT imaging of his hip did reveal iliopsoas hematoma with mild retroperitoneal hemorrhage extending. PT evaluation for ambulation. trended CBC stable. does have atrial fibrillation and a previous PE. (2) Retroperitoneal bleeding: Status: Acute Assessment and plan: clincially stable Xarelto held. Trend CBCs. Surgical consultation if needed. (3) Atrial fibrillation: Assessment and plan: rate controlled on home beta yong xarelto on hold (4) Bilateral leg weakness: Status: Chronic Assessment and plan: Patient has problems with chronic peripheral edema with his obesity though he has been losing weight. PT evaluation and continue using walker for ambulation. (5) Type 2 diabetes mellitus without complications: Status: Chronic Assessment and plan: last hemoglobin A1C was 5.13 Oct 2023, blood sugars well controlled. Stop Glucometer measurements before meals and bedtime and sliding scale coverage continue GLP-1 agonist therapy given weekly for weight loss. (6) CAD (coronary artery disease): Status: Chronic Assessment and plan: stable Continue outpatient medical therapy. (7) Hypertension: Status: Chronic Assessment and plan: blood pressure stable Continue outpatient medical therapy. (8) TOM (obstructive sleep apnea): Status: Chronic Assessment and plan: Home CPAP when sleeping/napping (9) Venous (peripheral) insufficiency: Status: Chronic Assessment and plan: Continue jenni wraps \For DVT prophylaxis patient can be on sequential compression stockings. (10) HFrEF (heart failure with reduced ejection fraction): Status: Chronic Assessment and plan: appears euvolemic continue lasix, beta yong, jenni I last echo in apr 2023: EF 50%, no significant valvular disease, with some wall motion abnormalities, discussed with DR Kenney Subjective Subjective Patient reports: no new complaints, tolerating liquids well, tolerating a regular diet and afebrile; denies shortness of breath Interval history since last seen: Working with physical therapy and was making progress able to transfer to commode and ambulate as a standby Exam Const General: cooperative and no acute distress Nutritional Appearance: obese Orientation: alert and oriented x3 Neck Neck: full ROM Resp Effort & Inspection: normal respiratory effort Auscultation: clear to auscultation bilaterally Cardio Rate: regular rate Rhythm: regular rhythm GI Inspection: large pannus Palpation: soft and nontender Auscultation: normal bowel sounds Neuro Cognition: normal cognition Speech: speech normal Extrem General: normal to inspection, no calf tenderness and edema Laterality: bilateral Psych Mental Status: mental status grossly normal Speech and Movement: speech clear Mood: congruent mood Affect: normal affect Objective Last Vital Signs Temp 36.2 C L 02/05/25 13:24 Pulse 70 02/05/25 13:24 Resp 16 02/05/25 13:24 BP 139/69 02/05/25 13:24 Pulse Ox 98 02/05/25 13:24 Laboratory Results - last 24 hr 02/04/25 02/04/25 02/04/25 14:10 18:00 18:05 WBC 10.04 RBC 4.75 Hgb 15.0 Cancelled 15.0 Hct 45.9 Cancelled 46.1 MCV 97 H MCH 31.6 MCHC 32.5 RDW 14.8 H Plt Count 253 MPV 9.1 Sodium Potassium Chloride Carbon Dioxide Anion Gap BUN Creatinine Est GFR (CKD-EPI 2020) Glucose Calcium Magnesium Total Bilirubin AST ALT Alkaline Phosphatase Total Protein Albumin 02/05/25 06:04 WBC RBC Hgb Hct MCV MCH MCHC RDW Plt Count MPV Sodium 142 Potassium 3.9 Chloride 108 H Carbon Dioxide 28.9 Anion Gap 5.1 BUN 24 H Creatinine 0.6 L Est GFR (CKD-EPI 2020) 99.42 Glucose 102 Calcium 9.6 Magnesium 2.0 Total Bilirubin 1.5 H AST 34 ALT 27 Alkaline Phosphatase 97 Total Protein 6.4 Albumin 2.8 L Time Spent with Patient Time Spent with Patient: 35-49 minutes Time was spent: preparing to see the patient(eg.review tests), obtaining and/or reviewing separately otained hiistory, ordering medications,tests, procedures, indepentently interpreting results and counseling the patient
--- NOTE | 2025-02-05 15:10 | PT.INTREAT ---
PT Notes Visit Reasons: Iliopsoas Hematoma;Mild Retroperitoneal Hemorrhage Date: 02/05/2025 PRECAUTIONS: Fall, Activities as tolerated, SUBJECTIVE: Pt reports he is feeling stronger and does not want to use the Alcides lift again OBJECTIVE: Pt BLE wrapped. ? PAIN: denies ? Therapeutic Activities 43016: Direct one-on-one instruction in dynamic activities to improve functional performance. ? BED MOBILITY/TRANSFERS? Rolling L/R: Min assist ? Sit-supine: Min assist ? Sit-stand: Contact-guard of 2 x 2 trials and contact-guard of 1 x 2 trials? Stand-sit: Contact-guard of 2 x 2 trials and contact-guard assist of 1 x 2 trials ? Bed-commode: Contact-guard assist of 2 ? Commode-bed: Contact-guard assist of 1 with FWW Provided skilled cues and instruction on performance and technique throughout. GAIT? Assistive Device: FWW ? Weight bearing: Full Assist: Supervision ? Distance:??recliner to commode 5', commode to EOB 15', EOB to recliner 15' ? Deviation: Slow pace with shortened step length and decreased step height ? Therapeutic Exercises 39444: Direct one-on-one instruction in therapeutic exercises to develop strength, endurance, range of motion and flexibility. Exercises: Seated LAQs x 60 reps Seated hip abduction 60 reps, Seated hip adduction with fist squeeze x 15 reps, Seated heel raises x 10 reps, Provided skilled instruction in proper exercise performance Provided skilled manual cues to facilitate proper muscle recruitment and/or form ASSESSMENT:? Pt expressed he is looking forward to going home . Patient reported he does 60 reps of long arc quads and hip abduction daily at home. Patient requires increased time to complete tasks and moves slowly through all transitions utilizing a count of 4 prior to standing. Patient with significant progress with transfers currently requiring contact-guard assist of 1 with use of FWW as compared to initial evaluation patient is approaching baseline level of function and would benefit from home health PT when medically ready for discharge. Care management team updated on patient's functional abilities this session. PLAN: Continue per plan of care. TREATMENT CODE/TIME: 70881 and 03174 53mins ([id number])
[2025-02-05 16:58] LABS: Lab Add On Test DONE
[2025-02-05 17:54] LABS: Hemoglobin A1C 5.2 % (<5.7)
[2025-02-05 19:30] VITALS: BP 145/82; PULSE 73; RESP 15; TEMP 36.5; O2SAT 99
--- NOTE | 2025-02-05 23:08 | W.WOUNDCONS ---
Date of service: 02/05/25 Time of Service: 23:08 Wound Initial Evaluation Wound Summary Wound Summary: Bilateral lower extremities. Provider requested photo only. Photo Photo: Treatment/Dressing Change Dressing Types: Kerlix (Gauze Roll) (Tubigrip socks were taken off and reapplied are patient's own) Recomendation Physcian/Nurse Practioner Notified: Yes
[2025-02-05 23:29] VITALS: BP 144/86; PULSE 72; RESP 17; TEMP 36; O2SAT 96
[2025-02-06 03:06] VITALS: BP 143/66; PULSE 75; RESP 17; TEMP 36.4; O2SAT 92
[2025-02-06 07:02] LABS: ALT 25 U/L (16-63); AST 27 U/L (15-37); Albumin 2.8 g/dL (3.4-5.0); Alkaline Phosphatase 102 U/L (46-116); BUN 21 mg/dL (7-18); Bilirubin, Total 1.4 mg/dL (0.2-1.0); CREATININE 0.7 mg/dL (0.70-1.30); Calcium 9.4 mg/dL (8.5-10.1); Chloride 107 mmol/L (98-107); Glucose 103 mg/dL (74-106); Magnesium 1.7 mg/dL (1.8-2.4); Potassium 3.9 mmol/L (3.5-5.1); Sodium 143 mmol/L (136-145); Total Protein 6.5 g/dL (6.4-8.2)
[2025-02-06 08:13] VITALS: BP 116/92; PULSE 82; RESP 18; TEMP 36.6; O2SAT 96
--- NOTE | 2025-02-06 09:16 | PT.INTREAT ---
PT Notes Visit Reasons: Iliopsoas Hematoma;Mild Retroperitoneal Hemorrhage Date:02/06/2025 PRECAUTIONS: Fall, Activities as tolerated, SUBJECTIVE: Pt reports he is feeling better and would prefer to go home than to go to [facility] pm: Pt reports he gets out of bed on the left side. Patient called and placed her on speaker phone throughout session. Patient's provided height of hospital bed at home at 25.5 inches floor to top of mattress. OBJECTIVE: Pt BLE wrapped.Pt's brought in leg clerical associate from home for pt to practice with here. ? PAIN: denies ? Therapeutic Activities 01309: Direct one-on-one instruction in dynamic activities to improve functional performance. ?? 1st session:? BED MOBILITY/TRANSFERS? Sit-stand: SBA of 1 x 3 trials ? Stand-sit: SBAof 1 x 3 trials ? Bed-commode: SBA of 1?with FWW ? Commode-chair: SBA of 1 with FWW Provided skilled cues and instruction on performance and technique throughout. GAIT? Assistive Device: FWW ? Weight bearing: Full Assist: Supervision ? Distance:??commode to recliner 5', ? Deviation: Slow pace with shortened step length and decreased step height on right? ? - Team meeting held with patient including care managers and TALENT MANAGEMENT SPECIALIST and this therapist to review status(10mins) discussed second session of PT to focus specifically on transferring supine out of bed to commode back to bed including return to supine with use of leg clerical associate. ? 2nd Session: Facilitated supine to sit with head of the bed at 45 degrees initially patient able to move bilateral lower extremities off left edge of the bed with use of leg clerical associate independently. Patient with multiple attempts at pushing up with right upper extremity to get trunk upright at edge of bed. Patient with 4 attempts with rest in between and was unable to achieve sitting at edge of the bed until patient was provided support to pull self with right upper extremity. Discussed with patient use of sheet tied to bed frame or a bed ladder device he would be able to pull up on. Also discussed with patient bringing head of bed to full upright position prior to maneuvering lower extremities off bed thereby reducing the need to lift entire trunk to 90 degree position at edge of bed. Facilitated sit to stand from 25 inch height bed(height of patient's [facility] bed at home) standby assist/supervision Bed to commode transfer taking 4 steps with bariatric FWW with standby assist/supervision Stand to sit on commode standby assist/supervision for safety Sit to stand from commode standby assist Commode to bed taking 8 steps forward approximately 4 feet with FWW standby assist/supervision demonstrating reciprocal pattern and adequate foot clearance bilaterally. Over the phone provided cue to remind patient to sit back on bed far enough for ease of getting lower extremities into bed which patient was able to perform. Sit at edge of bed to supine with head of bed flat independently with leg clerical associate. Patient then able to adjust head of bed for comfort with use of control ASSESSMENT:? Patient requires increased time to complete tasks and moves slowly through all transitions utilizing a count of 4 prior to standing. At this time patient requires assistance of 1 to get to edge of bed for trunk support. Discussed options of using sheet or rope tied to bed frame to pull up on if unable to assist. And to elevate head of bed upright completely before moving lower extremities to edge of bed with leg clerical associate reducing the distance he would need to lift his trunk. Patient limited by body habitus and impaired abdominal strength. Patient unable to utilize reaching across body due to body habitus to assist with supine to sit with head of bed elevated and prep for transfers. Patient is approaching baseline level of function and would benefit from home health PT when medically ready for discharge. Care management team updated on patient's functional abilities this session. PLAN: Continue per plan of care. TREATMENT CODE/TIME: 1st session 20960 31mins ([id number]) 2nd sessions [id number]/[id number]?[id number], 1320?1410
[2025-02-06] MEDS: Normal Saline Flush 10 ML SYR IVP ×2 (09:31→20:43)
[2025-02-06] MEDS: Metoprolol CR 100 MG TABCR 200 MG PO (09:32)
[2025-02-06] MEDS: Nystatin POWDER 15 GM JAR TP ×3 (09:32→20:42)
[2025-02-06] MEDS: Lisinopril 20 MG TAB PO (09:32)
[2025-02-06] MEDS: Allopurinol 300 MG TAB PO (09:32)
[2025-02-06] MEDS: Isosorbide Dinitrate 10 MG TAB 30 MG PO ×2 (09:32→20:42)
[2025-02-06] MEDS: Ezetimibe 10 MG TAB PO (09:33)
[2025-02-06] MEDS: Furosemide 40 MG TAB 20 MG PO (09:33)
[2025-02-06] MEDS: Potassium Citrate 1080 MG TABCR 2160 MG PO ×2 (09:33→20:42)
--- NOTE | 2025-02-06 13:47 | PDOC.CMPRO ---
Date of service: 02/06/25 Time of Service: 17:22 Care Management Progress Note Progress Note Text Progress Note Text: Jaime was medical cleared today, and PT recommended HHPT, no longer qualifies for SNF (See pt documentation). Per pt, at home he shared he has the following DME: Hospital bed with electric head of bed, powered operating WC, bedside commode, grab bars, and bedside urinals. Leah ( who lives in the home with Jaime) stated to this designer writer at 11:20 that He can't come home today, I won't be home tonight because I have plans and he will just fall down if you send him home. In addition, Leah states even if I was home tonight, he needs to go to a rehab because I don't want to have to wake up to help him urinate at 03:00. Pt is admitted obs and therefore does not have a qualifying 3 night stay to meet SNF requirements. CM huddled with Jaime's care team (hospitalist, PT, CM, RN, PRESALES CONSULTANT, Clinical coordinator), he is medically cleared for discharge, and PT recommends home with new HH PT, as his PT needs are chronic; PT provided education and insights of methods to transition in bed and transfer, to foster his chronic mobility concerns which are well documented since May of 2022. CM offered benefits of obtaining full HH services. Per Jaime, he wishes to appeal his discharge only if his insurance will cover the cost of his hospitalization while he appeals. CM review appeal process and support pt with initialing the appeal call. CM discharge recommend continues to be Home with new HH PT/OT/RN and DIALYSIS SOCIAL WORKER to help with assisted planning needs. Discharge Potential Discharge Needs: PCP F/U Appt Anticipated Barriers to Discharge: None Identified Patient/Family Education Needs: Review discharge instructions, discuss Ask Me Three Transportation: [facility] RCT Transportation: Wheel chair van Plan: Discharge will depend on the outcome of his appeal. Anticipate, Jaime will be discharged home with new HH PT/OT/RN and DIALYSIS SOCIAL WORKER to help with assisted planning needs. He will follow up with his community providers and continue per his plan of care. He will be transported via [facility] by [facility]. CM will continue to follow and support discharge recommendations, should they remain the same or change. Social Determinants of Health Screening Social Determinants of health last assessed in clinic: 02/06/25 Will the Patient Participate in the Screening?: Yes Do you worry about having a steady place to live?: yes What is your living situation today?: I have housing today, but am worried about losing it Problems where you live: no known problems In the past 12 months, have you had to go without electric, gas, oil or water in your home?: no 1. Within the past 12 months, we worried whether our food would run out before we got money to buy more.: Never true 2. Within the past 12 months, the food we bought just didn't last and we didn't have money to get more.: Never true Has lack of transportation kept you from medical appointments or from doing things needed for daily living?: no Has anyone in your life made you feel unsafe or unsupported?: no How hard is it for you to pay for the very basics like food, housing, medical care, and heating? Would you say it is:: Not hard at all Do you want help finding or keeping work or a job?: I do not need or want help If for any reason you need help with day-to-day activities such as bathing, preparing meals, shopping, managing finances, etc., do you get the help you need?: I get all the help I need How often do you feel lonely or isolated from those around you?: Never Do you speak a language other than Moldovan at home?: No Does the patient want assistance with any of the above?: No Health Related Social Needs Health related social needs: housing instability, housed, with risk of homelessness (Z59.811)
[2025-02-06 15:16] VITALS: BP 158/79; PULSE 69; RESP 18; TEMP 36.8; O2SAT 99
--- NOTE | 2025-02-06 15:55 | DSE_ITS ---
Date of service: 02/06/25 Time of Service: 15:55 DS: Diagnosis Discharge Diagnosis (1) Hematoma of right iliopsoas muscle: Status: Acute (2) Retroperitoneal bleeding: Status: Acute (3) Atrial fibrillation: (4) Bilateral leg weakness: Status: Chronic (5) Type 2 diabetes mellitus without complications: Status: Chronic (6) CAD (coronary artery disease): Status: Chronic (7) Hypertension: Status: Chronic (8) TOM (obstructive sleep apnea): Status: Chronic (9) Venous (peripheral) insufficiency: Status: Chronic (10) HFrEF (heart failure with reduced ejection fraction): Status: Chronic Discharge Plan Disposition Patient Disposition: Home W/Home Health Services Condition: Improving Discharge Details Reason For Visit: Iliopsoas Hematoma;Mild Retroperitoneal Hemorrhage Admit Date/Time: 02/04/25 04:09 Admit Provider: Delroy Downs Attending Provider: Delroy Downs Primary Care Provider: Gintete Villavicencio Hospital Course Hospital Course: This is a 79-year-old male patient past medical history significant for obstructive sleep apnea, morbid obesity, coronary artery disease, dyslipidemia, ambulatory dysfunction with bilateral leg weakness, heart failure, atrial fi brillation anticoagulated on rivaroxaban presented to the emergency department with complaints of left hip pain that occurred after he dropped his foot out of a little use to help get himself in and out of bed. Workup in the emergency department did show a hematoma of his psoas muscle with a small retroperitoneal bleed. Xarelto was placed on hold. His H&H remained stable. He remained hemodynamically stable. He was eating and drinking bowels and bladder functioning. He was working with physical therapy initially the plan was to go to skilled rehab but he met all his rehab goals and is thought to be at his baseline. Plan now is to discharge to home with new home health services. discussed with DR Kenney Home Meds and New Rx's Prescriptions: Continued nitroglycerin 0.4 MG tablet, sublingual 0.4 mg Sublingual PRN PRN (Reason: Chest Pain) lisinopril 40 MG tablet 20 mg PO DAILY potassium citrate 10 MEQ tablet extended release 20 meq PO BID allopurinol 300 MG tablet 300 mg PO DAILY Acetaminophen [Tylenol] 650 mg PO Q4H PRN PRNQty: 0 0RF polyethylene glycol 3350 17 gram Powder In Packet 17 g PO DAILY PRN PRN (Reason: Constipation) Qty: 0 0RF Patient Comments: 11/28/22: not taking docusate sodium [Colace] 100 mg Capsule 100 mg PO TID PRN PRNQty: 0 0RF cholecalciferol (vitamin D3) 125 mcg (5,000 unit) capsule 125 mcg PO DAILY nystatin 100,000 unit/gram powder 1 applic topical TID isosorbide dinitrate 30 mg tablet 30 mg PO BID metoprolol succinate 200 mg tablet extended release 24 hr 200 mg PO DAILY Mounjaro 10 mg/0.5 mL pen injector 10 mg subcut QWEEK Rx Instructions: On Fridays per furosemide 20 mg tablet 20 mg PO DAILY ezetimibe 10 mg tablet 10 mg PO DAILY betamethasone dipropionate 0.05 % cream 0.05 applic TOPICAL DAILY melatonin 3 mg capsule 3 mg PO HS PRNQty: 30 0RF Rx Instructions: PRN sleep Held Xarelto 20 mg tablet 20 mg PO DAILY Hold Instructions: Until discussed with your primary care provider Discharge Instructions Instructions: Bleeding Precautions Referrals: Ginette Villavicencio [Primary Care Provider] - Activity:: Activity as Tolerated Equipment/Supplies:: No Equipment Needed Diet:: As Tolerated DS: Summary Time Spent with Patient providing and/or coordinating discharge services: Greater than 30 minutes Status at Discharge Functional status at discharge: uses cane/walker Overall status at discharge: patient is back to baseline Mental Status: mental status grossly normal Speech and Movement: speech clear Mood: congruent mood Affect: normal affect Quality:SDOH Health Related Social Needs: Health related social needs housing instability, house d, with risk of homelessness (Z59.811) Health related social needs details Transportation is RCT Exam Const General: cooperative and no acute distress Nutritional Appearance: obese Orientation: alert and oriented x3 Neck Neck: full ROM Resp Effort & Inspection: normal respiratory effort Auscultation: clear to auscultation bilaterally Cardio Rate: regular rate Rhythm: regular rhythm GI Inspection: large pannus Palpation: soft and nontender Auscultation: normal bowel sounds Neuro Cognition: normal cognition Speech: speech normal Extrem General: normal to inspection, no calf tenderness and edema Laterality: bilateral Psych Mental Status: mental status grossly normal Speech and Movement: speech clear Mood: congruent mood Affect: normal affect DS: Data Vitals/I&O Vitals and I&O: Vital Signs Temperature 36.8 C 02/06/25 15:16 Temperature Source Temporal Artery Scan 02/06/25 15:16 Pulse 69 02/06/25 15:16 Pulse Rhythm Regular 02/04/25 04:57 Pulse 76 02/04/25 04:46 Respiratory Rate 18 02/06/25 15:16 Respiratory Effort Normal 02/04/25 04:57 Respiratory Depth Normal 02/04/25 04:57 Respiratory Pattern Normal 02/04/25 04:57 Blood Pressure 158/79 H 02/06/25 15:16 Blood Pressure Mean 105 02/06/25 15:16 Pulse Oximetry 99 02/06/25 15:16 Oxygen Delivery Method Room Air 02/06/25 15:16 Oxygen Flow Rate 0 02/06/25 15:16 Pain Level 0 02/06/25 09:41 Comment rn notified 02/06/25 15:16 Intake & Output 02/05/25 02/06/25 02/06/25 23:59 11:59 23:59 Intake Total 300 / 300 220 / 220 Output Total 700 / 850 1625 / 1625 Balance -400 / -550 -1405 / -1405 Weight 128.8 kg Intake: Oral 300 / 300 220 / 220 Output: Urine 700 / 850 1625 / 1625 Other: Urine Color Light Maisha Yellow Urine Appearance Clear Clear Urine Odor Normal Comment pt incontinent copious amount into bed. Data Completed and Pending Labs on day of discharge: Labs from last 24 hours 02/06/25 02/05/25 02/04/25 06:20 18:05 18:05 Sodium 143 Potassium 3.9 Chloride 107 Carbon Dioxide 27.0 Anion Gap 9.0 BUN 21 H Creatinine 0.7 Est GFR (CKD-EPI 2020) 94.90 Glucose 103 Hemoglobin A1c 5.2 Calcium 9.4 Magnesium 1.7 L Total Bilirubin 1.4 H AST 27 ALT 25 Alkaline Phosphatase 102 Total Protein 6.5 Albumin 2.8 L Add-On Test Request DONE [facility] All Active Problems (Updated 02/04/25 @ 06:40 by Delroy Downs) Retroperitoneal bleeding (Acute) Hematoma of right iliopsoas muscle (Acute) Palliative care encounter (Acute) Weakness (Acute) Generalized weakness (Acute) Shoulder pain (Acute) Edema of lower extremity (Acute) Pressure sore on buttocks (Acute) At high risk for skin breakdown (Acute) Bilateral leg weakness (Chronic) Weight loss due to medication (Acute) Chest pain (Acute) Physician orders for life-sustaining treatment (POLST) form indicates patient wish for [id number] status (Acute) Advance care planning (Acute) Palliative care patient (Acute) HFrEF (heart failure with reduced ejection fraction) (Chronic) Ambulatory dysfunction (Acute) Bilateral leg weakness (Acute) Lumbago (Chronic) Non compliance with medical treatment (Acute) Trochanteric bursitis, left hip (Acute) H/O surgical procedure (Chronic) a. Bilateral hip replacement b. Nephrolithotomy c. Right ureteral stent placement d. Coronary artery stent placement 2006 e. Adult circumcision f. Colonoscopy 11/2013 History of revision of total replacement of left hip joint (Acute 11/01/20) Acetabular revision with head/liner exchange for fractured femoral head prosthesis. Pure hypercholesterolemia, unspecified (Acute) Cerumen impaction (Acute) Type 2 diabetes mellitus without complications (Chronic) Neoplasm of unspecified behavior of bone, soft tissue, and skin (Acute) Nasal dryness (Acute) Acute cholecystitis (Acute 09/07/14) Morbid obesity (Chronic) CAD (coronary artery disease) (Chronic) a. coronary artery stent placement 2006 Hypertension (Chronic) TOM (obstructive sleep apnea) (Chronic) Personal history of kidney stones (Chronic) a. uric acid stones Venous stasis ulcer (Chronic) Venous (peripheral) insufficiency (Chronic) Medical History Personal history of pulmonary embolism Body mass index (BMI) 50.0-59.9, adult Venous stasis ulcer of left lower extremity HNP (herniated nucleus pulposus), lumbar Relative polycythemia Failed total hip arthroplasty Heart failure with preserved ejection fraction CAD (coronary artery disease) Cholangitis Nephrolithiasis Phimosis Pulmonary embolism Hx of pulmonary artery thrombosis Venous stasis ulcer of ankle limited to breakdown of skin without varicose veins Anticoagulant long-term use Atrial fibrillation Surgical History H/O bilateral hip replacements Social History Smoking/Tobacco Use Status: Former Tobacco Use Smoking risk assessment performed?: Yes Alcohol Intake: never Drug use: Never Substance use type: does not use Household members: spouse Housing: house What is your relationship status?: Panel score (0-1 are the most socially isolated patients): 1 Do you feel safe at home: Yes Do you feel safe in your relationship?: Yes Time Spent with Patient Time Spent with Patient: 70-84 minutes4 Time was spent: preparing to see the patient(eg.review tests), obtaining and/or reviewing separately otained hiistory, ordering medications,tests, procedures, indepentently interpreting results, counseling the patient and care coordination
[2025-02-06 19:27] VITALS: BP 118/48; PULSE 73; RESP 20; TEMP 36.7; O2SAT 97
[2025-02-06 23:42] VITALS: BP 119/72; PULSE 75; RESP 19; TEMP 36.2; O2SAT 95
[2025-02-07 03:27] VITALS: BP 128/68; PULSE 82; RESP 16; TEMP 36.4; O2SAT 95
[2025-02-07 06:23] LABS: Abs Immature Grans 0.08 10^3/uL (0.0-0.06); Absolute Basophil Count 0.08 10^3/uL (0.0-0.2); Absolute Eosinophil Count 0.23 10^3/uL (0.0-0.7); Absolute Lymphocyte Count 1.28 10^3/uL (1.2-3.4); Absolute Monocyte Count 1.13 10^3/uL (0.1-0.8); Absolute Neutrophil Count 6.57 10^3/uL (1.2-6.7); Basophils % 0.9 %; Eosinophils % 2.5 %; HCT 43.2 % (40.0-50.0); Immature Grans % 0.9 %; Lymphocytes % 13.7 %; MCH 31.3 pg (27.0-33.0); MCHC 32.4 % (32.0-36.0); MCV 97 fL (80-95); Monocytes % 12.1 %; Neutrophils % 69.9 %; Platelet Count 270 10^3/uL (130-400); RBC 4.47 10^6/uL (4.36-5.78); RDW 14.6 % (11.8-14.1); WBC 9.37 10^3/uL (4.4-10.8)
[2025-02-07 06:45] LABS: ALT 23 U/L (16-63); AST 29 U/L (15-37); Albumin 2.7 g/dL (3.4-5.0); Alkaline Phosphatase 104 U/L (46-116); Anion Gap 7.4 mmol/L (3-11); BUN 19 mg/dL (7-18); Bilirubin, Total 1.5 mg/dL (0.2-1.0); CO2 27.6 mmol/L (21.0-32.0); CREATININE 0.5 mg/dL (0.70-1.30); Calcium 9.2 mg/dL (8.5-10.1); Chloride 106 mmol/L (98-107); Estimated GFR 105.05 (mL/min/1.73m2); Glucose 107 mg/dL (74-106); Magnesium 1.7 mg/dL (1.8-2.4); Potassium 3.9 mmol/L (3.5-5.1); Sodium 141 mmol/L (136-145); Total Protein 6.4 g/dL (6.4-8.2)
[2025-02-07 07:41] VITALS: BP 132/86; PULSE 81; RESP 24; TEMP 36.6; O2SAT 96
[2025-02-07] MEDS: Allopurinol 300 MG TAB PO (08:09)
[2025-02-07] MEDS: Potassium Citrate 1080 MG TABCR 2160 MG PO (08:09)
[2025-02-07] MEDS: Nystatin POWDER 15 GM JAR TP ×2 (08:09→14:02)
[2025-02-07] MEDS: Furosemide 40 MG TAB 20 MG PO (08:09)
[2025-02-07] MEDS: Metoprolol CR 100 MG TABCR 200 MG PO (08:09)
[2025-02-07] MEDS: Isosorbide Dinitrate 10 MG TAB 30 MG PO (08:09)
[2025-02-07] MEDS: Lisinopril 20 MG TAB PO (08:09)
[2025-02-07] MEDS: Ezetimibe 10 MG TAB PO (08:09)
[2025-02-07] MEDS: Normal Saline Flush 10 ML SYR IVP (08:10)
[2025-02-07] MEDS: Magnesium Chloride 64 MG TABCR PO (09:52)
--- NOTE | 2025-02-07 10:37 | PTTR_ITS ---
PT Notes Visit Reasons: Iliopsoas Hematoma;Mild Retroperitoneal Hemorrhage Inpatient Physical Therapy Treatment Note [facility] Date: 02/07/25 SUBJECTIVE: Jimbo states that he is hoping to go home but would really like to master getting out of bed. He reports that he gets up a few times during the night to use commode, and does not want to wake his for help. Checked in on him in pm and he reports that he is going home this afternoon. He reports being a little upset as he does not feel that a plan has been laid out for him in regards to HHPT. When will he begin etc. Declined another PT session session reporting that he was saving his energy into getting ready to leave. OBJECTIVE: []? VITALS: ?monitored by nsjesus. Therapeutic Activities ([id number]): Direct one-on-one instruction in dynamic activ ities to improve functional performance. ? BED MOBILITY/TRANSFERS? Rolling L/R: I Supine-sit: with leg director voice, HOB at approx 75-85 degrees SBA? Sit-supine: SBA with leg director voice, HOB at approx 30 degrees. ? Sit-stand: bed elevated, SBA? Stand-sit: SBA? Provided skilled cues and instruction on performance and technique throughout. Reminders to get HOB elevated prior to transferring supine to sit.? ? AM Session #1: performed bed transfers (supine to sit to supine) x4. Sit to stand with side step to left. ? ? AM session #2: performed his supine to sit to supine transfers x2. Sit to stand pivot to commode Sit to stand with side step to left x2. ? ASSESSMENT:? tolerates session well. No pain noted but definite weakness in core, making supine to sit challenging. Needs to remember to sit right hip back onto bed prior to getting legs into bed. Also needs to remember to place HOB up all the way to assist in sitting up. PLAN: pt d/c to home with HHPT. TREATMENT CODE/TIME: 30 min am session #1 and 25 min Am session #2. ([id number]) DISCHARGE RECOMMENDATION: home with HHPT
[2025-02-07 11:33] VITALS: BP 133/84; PULSE 70; RESP 16; TEMP 36.6; O2SAT 98
[2025-02-07] MEDS: Acetaminophen 325 MG TAB PO (14:05)
--- NOTE | 2025-02-07 14:24 | CMDISCH_ITS ---
Date of service: 02/07/25 Time of Service: 14:24 LACE Index Scoring Tool Questions: Length of Stay (in days): 3 Was the patient admitted via the E.D.?: Yes Comorbidities: Diabetes w/o Complication and Congestive Heart Failure E.D. Visits: 3 Answers: Total Score: 12 Risk of Readmission: High Risk Care Management Discharge Plan Reason for Hospitalization: Iliopsoas stricture, hypoklalemia, UTI Discharge Plan: Patient appealed his discharge and his insurance denied this appeal. Jaime said his primary concern was that he would not be able to get out of bed; Leah stated I watched you get up, by yourself 2 times, out of bed this afternoon with no help. Pt then stated he felt ready for discharge at this time, and requested [facility] for transport. CM reviewed this interaction with the insurance company, they were in support that [facility] continue his discharge. Jaime will be discharged home with new PT/OT/RN and JUNIOR ACCOUNTANT to help with computer terminal operator planning needs. He will follow up with his community providers and continue per his plan of care. He will be transported via [facility] by [facility]. Patient/Family Education Needs: Review of discharge instructions, activity, limitations and plan of care as directed. Discuss Ask Me Three. Services Needed at Discharge: Home Health Care Services (PT/OT/RN/JUNIOR ACCOUNTANT) SDOH Health Related Social Needs: Health related social needs housing instability, house d, with risk of homelessness (Z59.811) Health related social needs details Transportation is RCT
--- NOTE | 2025-02-07 14:33 | DSE_ITS ---
Date of service: 02/07/25 Time of Service: 14:33 DS: Diagnosis Discharge Diagnosis (1) Hematoma of right iliopsoas muscle: Status: Acute (2) Retroperitoneal bleeding: Status: Acute (3) Atrial fibrillation: (4) Bilateral leg weakness: Status: Chronic (5) Type 2 diabetes mellitus without complications: Status: Chronic (6) CAD (coronary artery disease): Status: Chronic (7) Hypertension: Status: Chronic (8) TOM (obstructive sleep apnea): Status: Chronic (9) Venous (peripheral) insufficiency: Status: Chronic (10) HFrEF (heart failure with reduced ejection fraction): Status: Chronic Discharge Plan Disposition Patient Disposition: Home W/Home Health Services Condition: Improving Discharge Details Reason For Visit: Iliopsoas Hematoma;Mild Retroperitoneal Hemorrhage Admit Date/Time: 02/04/25 04:09 Admit Provider: Delroy Downs Attending Provider: Delroy Downs Primary Care Provider: Ginette Villavicencio Hospital Course Hospital Course: This is a 79-year-old male patient past medical history significant for obstructive sleep apnea, morbid obesity, coronary artery disease, dyslipidemia, ambulatory dysfunction with bilateral leg weakness, heart failure, atrial fi brillation anticoagulated on rivaroxaban presented to the emergency department with complaints of left hip pain that occurred after he dropped his foot out of a little use to help get himself in and out of bed. Workup in the emergency department did show a hematoma of his psoas muscle with a small retroperitoneal bleed. Xarelto was placed on hold. His H&H remained stable. He remained hemodynamically stable. He was eating and drinking bowels and bladder functioning. He was working with physical therapy initially the plan was to go to skilled rehab but he met all his rehab goals and is thought to be at his baseline. Plan now is to discharge to home with new home health services. discussed with DR Kenney Home Meds and New Rx's Prescriptions: Continued nitroglycerin 0.4 MG tablet, sublingual 0.4 mg Sublingual PRN PRN (Reason: Chest Pain) lisinopril 40 MG tablet 20 mg PO DAILY potassium citrate 10 MEQ tablet extended release 20 meq PO BID allopurinol 300 MG tablet 300 mg PO DAILY Acetaminophen [Tylenol] 650 mg PO Q4H PRN PRNQty: 0 0RF polyethylene glycol 3350 17 gram Powder In Packet 17 g PO DAILY PRN PRN (Reason: Constipation) Qty: 0 0RF Patient Comments: 11/28/22: not taking docusate sodium [Colace] 100 mg Capsule 100 mg PO TID PRN PRNQty: 0 0RF cholecalciferol (vitamin D3) 125 mcg (5,000 unit) capsule 125 mcg PO DAILY nystatin 100,000 unit/gram powder 1 applic topical TID isosorbide dinitrate 30 mg tablet 30 mg PO BID metoprolol succinate 200 mg tablet extended release 24 hr 200 mg PO DAILY Mounjaro 10 mg/0.5 mL pen injector 10 mg subcut QWEEK Rx Instructions: On Fridays per furosemide 20 mg tablet 20 mg PO DAILY ezetimibe 10 mg tablet 10 mg PO DAILY betamethasone dipropionate 0.05 % cream 0.05 applic TOPICAL DAILY melatonin 3 mg capsule 3 mg PO HS PRNQty: 30 0RF Rx Instructions: PRN sleep Held Xarelto 20 mg tablet 20 mg PO DAILY Hold Instructions: Until discussed with your primary care provider Discharge Instructions Instructions: Bleeding Precautions Additional Instructions: Hold Xarelto until follow up with PCP Referrals: Ginette Villavicencio [Primary Care Provider] - Activity:: Activity as Tolerated Equipment/Supplies:: No Equipment Needed Diet:: As Tolerated Discharge Orders Discharge Orders: Discharge Order (Routine); Ordered 02/07/25 Ordered By: Naye Schmid DS: Summary Time Spent with Patient providing and/or coordinating discharge services: Greater than 30 minutes Status at Discharge Functional status at discharge: uses cane/walker Overall status at discharge: patient is progressing back to baseline Mental Status: mental status grossly normal Speech and Movement: speech clear Mood: congruent mood Affect: normal affect Quality:SDOH Health Related Social Needs: Health related social needs housing instability, house d, with risk of homelessness (Z59.811) Health related social needs details Transportation is RCT Exam Const General: cooperative and no acute distress Nutritional Appearance: obese Orientation: alert and oriented x3 Neck Neck: full ROM Resp Effort & Inspection: normal respiratory effort Auscultation: clear to auscultation bilaterally Cardio Rate: regular rate Rhythm: regular rhythm GI Inspection: large pannus Palpation: soft and nontender Auscultation: normal bowel sounds Neuro Cognition: normal cognition Speech: speech normal Extrem General: normal to inspection, no calf tenderness and edema Laterality: bilateral Psych Mental Status: mental status grossly normal Speech and Movement: speech clear Mood: congruent mood Affect: normal affect DS: Data Vitals/I&O Vitals and I&O: Vital Signs Temperature 36.6 C 02/07/25 11:33 Temperature Source Temporal Artery Scan 02/07/25 11:33 Pulse 70 02/07/25 11:33 Pulse Rhythm Regular 02/04/25 04:57 Pulse 76 02/04/25 04:46 Respiratory Rate 16 02/07/25 11:33 Respiratory Effort Normal 02/04/25 04:57 Respiratory Depth Normal 02/04/25 04:57 Respiratory Pattern Normal 02/04/25 04:57 Blood Pressure 133/84 02/07/25 11:33 Blood Pressure Mean 100 02/07/25 11:33 Pulse Oximetry 98 02/07/25 11:33 Oxygen Delivery Method Room Air 02/07/25 11:33 Oxygen Flow Rate 0 02/07/25 11:33 Pain Level 3 02/07/25 14:05 Comment rn notified 02/06/25 15:16 Intake & Output 02/06/25 02/07/25 02/07/25 23:59 11:59 23:59 Intake Total 230 / 450 220 / 390 170 / 390 Output Total 750 / 2375 500 / 625 125 / 625 Balance -520 / -1925 -280 / -235 45 / -235 Weight 125.872 kg 125.645 kg Intake: IV 10 / 10 Oral 220 / 440 220 / 390 170 / 390 Output: Urine 750 / 2375 500 / 625 125 / 625 Other: Urine Color [place] Light Maisha Yellow Urine Appearance Clear Clear Clear Urine Odor None Strong Comment got up to the commode Patient was inc. of urine, brief was changed. Patient used urinal with one person assist. Data Completed and Pending Labs on day of discharge: Labs from last 24 hours 02/07/25 05:55 WBC 9.37 RBC 4.47 Hgb 14.0 Hct 43.2 MCV 97 H MCH 31.3 MCHC 32.4 RDW 14.6 H Plt Count 270 MPV 9.0 Immature Gran % 0.9 Neutrophils % 69.9 Lymphocytes % 13.7 Monocytes % 12.1 Eosinophils % 2.5 Basophils % 0.9 Nucleated RBC % 0.0 Absolute Neutrophils 6.57 Absolute Lymphocytes 1.28 Absolute Monocytes 1.13 H Absolute Eosinophils 0.23 Absolute Basophils 0.08 Sodium 141 Potassium 3.9 Chloride 106 Carbon Dioxide 27.6 Anion Gap 7.4 BUN 19 H Creatinine 0.5 L Est GFR (CKD-EPI 2020) 105.05 Glucose 107 H Calcium 9.2 Magnesium 1.7 L Total Bilirubin 1.5 H AST 29 ALT 23 Alkaline Phosphatase 104 Total Protein 6.4 Albumin 2.7 L PFSH All Active Problems (Updated 02/04/25 @ 06:40 by Delroy Downs) Retroperitoneal bleeding (Acute) Hematoma of right iliopsoas muscle (Acute) Palliative care encounter (Acute) Weakness (Acute) Generalized weakness (Acute) Shoulder pain (Acute) Edema of lower extremity (Acute) Pressure sore on buttocks (Acute) At high risk for skin breakdown (Acute) Bilateral leg weakness (Chronic) Weight loss due to medication (Acute) Chest pain (Acute) Physician orders for life-sustaining treatment (POLST) form indicates patient wish for oj-who-ynjisjstfys status (Acute) Advance care planning (Acute) Palliative care patient (Acute) HFrEF (heart failure with reduced ejection fraction) (Chronic) Ambulatory dysfunction (Acute) Bilateral leg weakness (Acute) Lumbago (Chronic) Non compliance with medical treatment (Acute) Trochanteric bursitis, left hip (Acute) H/O surgical procedure (Chronic) a. Bilateral hip replacement b. Nephrolithotomy c. Right ureteral stent placement d. Coronary artery stent placement 2006 e. Adult circumcision f. Colonoscopy 11/2013 History of revision of total replacement of left hip joint (Acute 11/01/20) Acetabular revision with head/liner exchange for fractured femoral head prosthesis. Pure hypercholesterolemia, unspecified (Acute) Cerumen impaction (Acute) Type 2 diabetes mellitus without complications (Chronic) Neoplasm of unspecified behavior of bone, soft tissue, and skin (Acute) Nasal dryness (Acute) Acute cholecystitis (Acute 09/07/14) Morbid obesity (Chronic) CAD (coronary artery disease) (Chronic) a. coronary artery stent placement 2006 Hypertension (Chronic) TOM (obstructive sleep apnea) (Chronic) Personal history of kidney stones (Chronic) a. uric acid stones Venous stasis ulcer (Chronic) Venous (peripheral) insufficiency (Chronic) Medical History Personal history of pulmonary embolism Body mass index (BMI) 50.0-59.9, adult Venous stasis ulcer of left lower extremity HNP (herniated nucleus pulposus), lumbar Relative polycythemia Failed total hip arthroplasty Heart failure with preserved ejection fraction CAD (coronary artery disease) Cholangitis Nephrolithiasis Phimosis Pulmonary embolism Hx of pulmonary artery thrombosis Venous stasis ulcer of ankle limited to breakdown of skin without varicose veins Anticoagulant long-term use Atrial fibrillation Surgical History H/O bilateral hip replacements Social History Smoking/Tobacco Use Status: Former Tobacco Use Smoking risk assessment performed?: Yes Alcohol Intake: never Drug use: Never Substance use type: does not use Household members: spouse Housing: house What is your relationship status?: Panel score (0-1 are the most socially isolated patients): 1 Do you feel safe at home: Yes Do you feel safe in your relationship?: Yes Time Spent with Patient Time Spent with Patient: 45-69 minutes Time was spent: preparing to see the patient(eg.review tests), ordering medications,tests, procedures, referring, communicating with other health post acute care registered nurse, indepentently interpreting results, counseling the patient and care coordination
--- NOTE | 2025-02-07 14:36 | PDOC.HHF2F_ITS ---
Home Health Referral Home Health Orders Clinical synopsis of why skilled professionals are needed: A 79-year-old male with a past medical history of obstructive sleep apnea, morbid obesity, coronary artery disease, dyslipidemia, ambulatory dysfunction with bilateral leg weakness, heart failure, and atrial fibrillation (on rivaroxaban for anticoagulation), presented to the emergency department with left hip pain. The pain began after he dropped his foot due to limited use while trying to get in and out of bed. Emergency department workup revealed a hematoma in his psoas muscle with a small retroperitoneal bleed. As a result, rivaroxaban was temporarily discontinued. His hemoglobin and hematocrit (H&H) levels remained stable, and he was hemodynamically stable throughout his stay. The patient continued to eat and drink, and his bowel and bladder functions were normal. Initially, the plan was to transfer him to skilled rehabilitation; however, he successfully met all his rehabilitation goals and is now considered to have returned to his baseline functional status. Medical diagnosis necessitation home health referral: Ambulatory dysfunction; bilateral leg weakness, heart failure, anticoagulated with psoas muscle with small retroperitonieal bleed. Registered Nurse: Check all that apply Instruct on new or changed medication(s)/assess compliance: Ordered Assess for exacerbation of medical condition, instruct patient/caregivers on signs and symptoms to report for early detection: Ordered Physical Therapist: Check all that apply Increase strength & endurance for safe mobility at home: Ordered To design/establish home maintenance program: Ordered Fall reduction therapy program for patient with history of frequent falls: Ordered Home safety evaluation and teaching/gait training including stair management (if applicable): Ordered Occupational Therapist: Evaluate and treat for patient unable to perform ADL/IADL/self-care: Ordered Upper extremity strengthening, range and motion: Ordered Financial Professional: Assist with community resources: Ordered Assist with skilled nursing care planning: Ordered Home Bound Status Requires the aid of supportive device (check all that apply): Walker Encounter Date and Reason: I certify that a FTF encounter for this patient was performed on February 07, 2025 and that such encounter was related to the primary reason the patient requires home health services. The encounter was conducted in the following manner: * By me as the certifying physician, MEDICAL UNIT SECRETARY, PA or * By an inpatient physician, MEDICAL UNIT SECRETARY or PA during an inpatient stay who communicated findings to me, Certification And Authentication I certify that I composed the above information based on my clinical judgment relating to this patient's medical condition and, if applicable, clinical findings communicated to me by the NPP or inpatient physician who performed the FTF encounter. Name of Provider that will be monitoring home health services: Ginette Villavicencio
[2025-02-07 15:17] VITALS: BP 135/80; PULSE 74; RESP 20; TEMP 36.9; O2SAT 95
== END 2025-02-07 17:05 | disposition home health service (06) ==
LOC: ER 04:24 → MS 06:38
PROVIDERS: Nurse Practitioner Acute Care; Admitting Provider Family Medicine; Emergency Provider Emergency Medicine; PCP Family Medicine; Responsible Provider Nurse Practitioner Family; Visit Provider Family Medicine
DX: S70.11XA Contusion of right thigh, initial encounter (principal); K68.3 Retroperitoneal hematoma; I48.11 Longstanding persistent atrial fibrillation; R29.898 Other symptoms and signs involving the musculoskeletal system; I25.10 Atherosclerotic heart disease of native coronary artery without angina pectoris; E11.9 Type 2 diabetes mellitus without complications; I11.0 Hypertensive heart disease with heart failure; G47.33 Obstructive sleep apnea (adult) (pediatric); I87.2 Venous insufficiency (chronic) (peripheral); I50.20 Unspecified systolic (congestive) heart failure; Z96.643 Presence of artificial hip joint, bilateral; I50.22 Chronic systolic (congestive) heart failure; E66.01 Morbid (severe) obesity due to excess calories; E78.5 Hyperlipidemia, unspecified; Z79.01 Long term (current) use of anticoagulants; X50.1XXA Overexertion from prolonged static or awkward postures, initial encounter; Z68.39 Body mass index [BMI] 39.0-39.9, adult; Z79.85 Long-term (current) use of injectable non-insulin antidiabetic drugs
CPT/HCPCS: 00123; 36415; 80048; 80053; 85027; 86850; 86900; 86901; 87637; 96365; 97110; 97162; 97530; 99285; 73701; 83036; 83735; 85014; 85018; 85025; 85610; 99223; 99232; 99233; 99239; J0131; J1815; J3490

== ENCOUNTER 2025-04-26 17:22 | Outpatient (REF) | payer MEDICARE, BC, SELFPAY | END 2025-04-26 17:23 | disposition home or self-care (01) | LOC: NCHCN 17:22 | PROVIDERS: PCP Family Medicine; Visit Provider Family Medicine | DX: L97.811 Non-pressure chronic ulcer of other part of right lower leg limited to breakdown of skin (principal) | CPT/HCPCS: 87077; 87070; 87186; 87205 ==

== ENCOUNTER 2025-07-11 14:58 | Outpatient (REF) | payer MEDICARE, BC, SELFPAY | END 2025-07-11 14:59 | disposition home or self-care (01) | LOC: NCHCN 14:58 | PROVIDERS: PCP Family Medicine; Visit Provider Family Medicine | DX: L03.115 Cellulitis of right lower limb (principal); I87.2 Venous insufficiency (chronic) (peripheral) | CPT/HCPCS: 87077; 87070; 87186; 87205 ==